=== PATIENT | male | born 1950 | race Caucasian/White ===

== ENCOUNTER 2016-06-17 03:56 | Inpatient (IN) | payer OTHER ==
--- NOTE | 2016-06-17 04:09 | PDOC ---
History of Present Illness - General History Source: Patient, Old Records Exam Limitations: No Limitations - History of Present Illness Initial Comments: 06/17/16 04:26 The patient is a 66 year old male with a significant past medical history of HTN , diabetes, COPD, and NM (01/23/16), who presents to the emergency department today for further evaluation of shortness of breath since today. The patient reports associated chills and decreased appetite. The patient denies fever, and sweats. The patient denies nausea, vomiting, and diarrhea. The patient denies chest pain and cough. PCP: Dr. Idris Salguero [phone] PAST MEDICAL HISTORY: HTN, diabetes, COPD, and NM (01/23/16) PAST SURGICAL HISTORY: No significant history reported FAMILY HISTORY: No pertinent history reported SOCIAL HISTORY: None reported MEDICATIONS: Reviewed ALLERGIES: As per nursing notes <Vick Kim - Last Filed: 06/17/16 06:10> <Jessica Evans - Last Filed: 06/17/16 07:06> - General Chief Complaint: Shortness of Breath Stated Complaint: SHORTNESS OF BREATH Time Seen by Provider: 06/17/16 04:07 Past History <Vick Kim - Last Filed: 06/17/16 06:10> - Past Medical History Diabetes: Yes Disorders: Yes HTN: Yes HIV: Yes - Psycho/Social/Smoking Cessation Hx Anxiety: No Suicidal Ideation: No Smoking History: Current every day smoker Have you smoked in the past 12 months: Yes Number of Cigarettes Smoked Daily: 20 'Breaking Loose' booklet given: 01/24/16 Hx Alcohol Use: No Drug/Substance Use Hx: No Substance Use Type: None <Jessica Evans - Last Filed: 06/17/16 07:06> - Past Medical History Allergies/Adverse Reactions: Allergies Allergy/AdvReac Type Severity Reaction Status Date / Time No Known Allergies Allergy Verified 06/17/16 04:20 Home Medications: Ambulatory Orders Albuterol Sulfate [Proair Respiclick] 90 mcg IH ASDIR PRN 01/24/16 Calcium Carbonate [Calcium] 2 tab.chew PO DAILY 01/24/16 Cholecalciferol (Vitamin D3) [Vitamin D3] 2,000 unit PO DAILY 01/24/16 Finasteride [Proscar] 5 mg PO DAILY 01/24/16 Glipizide 5 mg PO DAILY 01/24/16 Insulin Detemir [Levemir Flextouch] 20 unit SQ BID 01/24/16 Metoprolol Succinate [Toprol XL -] 50 mg PO HS 01/24/16 Tamsulosin HCl [Flomax -] 0.4 mg PO HS 01/24/16 Amlodipine Besylate [Norvasc -] 10 mg PO DAILY #30 tablet 01/26/16 Review of Systems - Review of Systems Able to Perform ROS?: Yes Comments:: 06/17/16 04:26 GENERAL/CONSTITUTIONAL: (+) Chills. No fever. No weakness. HEAD, EYES, EARS, NOSE AND THROAT: No change in vision. No ear pain or discharge. No sore throat. CARDIOVASCULAR: (+) shortness of breath. No chest pain. RESPIRATORY: No cough, wheezing, or hemoptysis. GASTROINTESTINAL: No nausea, vomiting, diarrhea or constipation. GENITOURINARY: No dysuria, frequency, or change in urination. MUSCULOSKELETAL: No joint or muscle swelling or pain. No neck or back pain. SKIN: No rash NEUROLOGIC: No headache, vertigo, loss of consciousness, or change in strength/ sensation. ENDOCRINE: No increased thirst. No abnormal weight change. HEMATOLOGIC/LYMPHATIC: No anemia, easy bleeding, or history of blood clots. ALLERGIC/IMMUNOLOGIC: No hives or skin allergy. <Vick Kim - Last Filed: 06/17/16 06:10> *Physical Exam - Vital Signs Last Vital Signs Temp Pulse Resp BP Pulse Ox 74 24 144/49 100 06/17/16 04:14 06/17/16 04:14 06/17/16 04:14 06/17/16 04:14 - Physical Exam Comments: 06/17/16 04:26 GENERAL: Awake, alert, and fully oriented, pale in appearance. HEAD: No signs of trauma EYES: PERRLA, EOMI, sclera anicteric, conjunctiva clear ENT: (+) Dry mucosa, lips, and throat. Auricles normal inspection, hearing grossly normal, nares patent, oropharynx clear without exudates. NECK: Normal ROM, supple, no lymphadenopathy, JVD, or masses LUNGS: Breath sounds equal, clear to auscultation bilaterally. No wheezes, and no crackles HEART: Regular rate and rhythm, normal S1 and S2, no murmurs, rubs or gallops ABDOMEN: Soft, nontender, normoactive bowel sounds. No guarding, no rebound. No masses EXTREMITIES: Normal range of motion, no edema. No clubbing or cyanosis. No cords, erythema, or tenderness NEUROLOGICAL: Cranial nerves II through XII grossly intact. Normal speech, normal gait SKIN: Warm, Dry, normal turgor, no rashes or lesions noted. <Vick Kim - Last Filed: 06/17/16 06:10> Heart Score/ECG Review - ECG Impressions Comment:: 06/17/16 04:27 1. ECG Impression: Normal sinus rhythm. Nonspecific intraventricular block. Abnormal ECG. Very different from ECG on 01/23/16. <Vick Kim - Last Filed: 06/17/16 06:10> ED Treatment Course - LABORATORY CBC & Chemistry Diagram: 06/17/16 04:30 06/17/16 04:30 <Vick Kim - Last Filed: 06/17/16 06:10> - LABORATORY CBC & Chemistry Diagram: 06/17/16 04:30 06/17/16 05:49 - RADIOLOGY Radiology Studies Ordered: Category Date Time Status CHEST X-RAY PORTABLE* [RAD] Stat Radiology 06/17/16 04:08 Ordered <Jessica Evans - Last Filed: 06/17/16 07:06> Medical Decision Making - Medical Decision Making 06/17/16 05:05 Pt comes with EMS for SOB and chills. He is afebrile and he has no cough. He has a hx of COPD.and CHF. His heart is elarged on CXR, but no infiltrate or effusion. Pt states that he is not eating well and he is non compliant with all of his meds. 06/17/16 05:05 Pt's EKG is widened QRS; new from 6 months ago. Unclear what the cause is. Pt is refusing BiPAP. He is pulling off mask. He is oxygenating at 100% RA 06/17/16 06:24 I have been waiting over 2 hrs for his chemistry results. Pt was given 1g calcium chloride 10% soln slow IVP, as EKG could indicate elevaed K+ Pt also given D50 and insulin 10U. Pt will be treated with lasix 40mg IVPush. 06/17/16 06:25 Pt signed out to hospitalist, who wants pt on [employer]. I paged the ICU, but there is no [employer] INVESTIGATOR or MD in the ICU. I was told to call office [phone] 06/17/16 07:[address] Tang for ICU consult. <Jessica Evans - Last Filed: 06/17/16 07:06> *DC/Admit/Observation/Transfer <Vick Kim - Last Filed: 06/17/16 06:10> - Discharge Dispostion Admit: Yes <Jessica Evans - Last Filed: 06/17/16 07:06> Diagnosis at time of Disposition: Acute electrocardiogram changes, SOB (shortness of breath), Anemia, COPD ( chronic obstructive pulmonary disease), CHF (congestive heart failure), Hyperkalemia, Renal failure - Discharge Dispostion Condition at time of disposition: Poor
[2016-06-17 04:59] LABS: MCHC 30.9 g/dl (32.0-35.9); MEAN CELL VOLUME 77.7 fl (80-96); MEAN PLT VOLUME 7.4 fl (7.5-11.1); PLATELET COUNT 317 K/MM3 (134-434); RDW 15.6 % (11.9-15.9); WHITE BLOOD COUNT 13.4 K/mm3 (4.0-10.0)
[2016-06-17] MEDS ORDERED: METOCLOPRAMIDE HCL INJECTION 10 MG/2 ML VIAL IVPB ONE (05:03)
[2016-06-17] MEDS ORDERED: FAMOTIDINE 20 MG/50 ML IVPB 50 ML IVPB ONE ×2 (05:04→05:06)
[2016-06-17] MEDS ORDERED: METOCLOPRAMIDE HCL INJECTION 10 MG/2 ML VIAL ONE (05:06)
[2016-06-17 05:12] LABS: INR 1.34 (0.82-1.09); PROTHROMBIN TIME (PATIENT) 14.8 SEC (9.98-11.88)
[2016-06-17] MEDS ORDERED: CALCIUM GLUCONATE 10% - 1,000 MG/10 ML VIAL IVPUSH ONE ×2 (06:05→14:55)
[2016-06-17] MEDS ORDERED: ALBUTEROL SO4 0.083% IH SOL 2.5 MG/3 ML VIAL.NEB. NEB ONE ×5 (06:06→06:51)
[2016-06-17] MEDS ORDERED: CALCIUM GLUCONATE 10% - 1,000 MG/10 ML VIAL ONE ×2 (06:06→19:41)
[2016-06-17] MEDS ORDERED: INSULIN REGULAR HUMAN 100 UNITS/ML *VIAL IVPUSH ONE ×2 (06:20→15:02)
[2016-06-17] MEDS ORDERED: DEXTROSE 50%-WATER 50 ML VIAL IVPUSH ONE ×2 (06:20→15:01)
[2016-06-17] MEDS ORDERED: DEXTROSE 50%-WATER 50 ML DISP.SYRIN ONE ×2 (06:21→15:20)
[2016-06-17] MEDS ORDERED: INSULIN REGULAR HUMAN 100 UNITS/ML *VIAL ONE (06:22)
[2016-06-17 06:29] LABS: ALBUMIN 2.8 g/dl (3.4-5.0); BILIRUBIN,TOTAL 0.3 mg/dL (0.2-1.0); TOT PROT 7.2 g/dl (6.4-8.2)
[2016-06-17] MEDS ORDERED: FUROSEMIDE 40 MG/4 ML INJECTABLE VIAL IVPB ONE (06:30)
[2016-06-17] MEDS ORDERED: FUROSEMIDE 40 MG/4 ML INJECTABLE VIAL ONE (06:36)
[2016-06-17] MEDS ORDERED: SODIUM POLYSTYRENE SULFONATE 15 GM/60 ML BOTTLE PO ONE (06:50)
[2016-06-17] MEDS ORDERED: SODIUM CHLORIDE 0.9% 500 ML INFUS.BAG IV ONE (06:53)
[2016-06-17 06:55] LABS: CREATININE 14.5 mg/dL (0.7-1.3)
[2016-06-17 06:56] LABS: CALCIUM 6.1 mg/dL (8.5-10.1)
[2016-06-17 06:57] LABS: TROPONIN I 0.03 ng/ml (0.00-0.05)
[2016-06-17] MEDS ORDERED: SODIUM BICARBONATE 4.2% 5 MEQ/10 ML DISP.SYRIN IVPUSH ONE (07:17)
[2016-06-17] MEDS ORDERED: SODIUM BICARBONATE 2.4 MEQ/5 ML SDVIAL ONE (07:25)
[2016-06-17] MEDS ORDERED: SODIUM BICARBONATE 8.4% - 50 ML ONE ×2 (07:27→07:45)
[2016-06-17 07:37] LABS: ARTERIAL BLD GAS O2 SATURATION 97.5 % (90-98.9); ARTERIAL BLOOD GAS HCO3 1.7 meq/L (22-26)
[2016-06-17 07:38] LABS: ALLENS TEST POSITIVE; ART PUNCT SITE RIGHT RADIAL
[2016-06-17 07:39] LABS: LPM/O2% 6L; PT. ON O2? YES; TYPE OF O2 NASAL O2
[2016-06-17 07:40] LABS: ARTERIAL BLOOD GAS pH 6.82 (7.35-7.45)
[2016-06-17 07:44] LABS: ANISOCYTOSIS 1+; HYPOCHROMIA 1+; MICROCYTOSIS 1+; PLATELET COMMENT2 NO CLOTTING DETECTED; PLATELET COMMENT3 FEW LARGE PLTS; PLATELET ESTIMATE ADEQUATE (NORMAL); POIKILOCYTOSIS 1+; POLYCHROMASIA 1+
[2016-06-17] MEDS ORDERED: SODIUM BICARBONATE 8.4% 50 MEQ/50 ML DISP.SYRIN IVPUSH ONE ×2 (07:44→07:45)
[2016-06-17 07:45] LABS: ARTERIAL BLOOD GAS BASE EXCESS -30.3 meq/l (-2-2)
[2016-06-17 07:50] LABS: METHEMOGLOBIN 1.2 % (0.4-1.5)
--- NOTE | 2016-06-17 08:44 | PDOC ---
*Physical Exam - Vital Signs Last Vital Signs Temp Pulse Resp BP Pulse Ox 92 H 30 H 175/74 99 06/17/16 06:16 06/17/16 06:16 06/17/16 07:09 06/17/16 06:16 ED Treatment Course - LABORATORY CBC & Chemistry Diagram: 06/17/16 04:30 06/17/16 05:49 - ADDITIONAL ORDERS Additional order review: Laboratory Results 06/17/16 06/17/16 06/17/16 05:49 05:49 05:49 WBC RBC Hgb Hct MCV MCHC RDW Plt Count MPV Neutrophils % Lymphocytes % Monocytes % Band Neutrophils Reactive Lymphocytes Platelet Estimate Platelet Comment Polychromasia Hypochromic-Microcytic Poikilocytosis Anisocytosis Microcytosis INR PTT (Actin FS) Sodium Potassium Chloride Carbon Dioxide Anion Gap BUN Creatinine Creat Clearance w eGFR Random Glucose Calcium Total Bilirubin AST ALT Alkaline Phosphatase Creatine Kinase 881 H D Creatine Kinase Index 2.5 CK-MB (CK-2) 22.0 H CK-MB (CK-2) Rel Index Cancelled Troponin I 0.03 D Total Protein Albumin Blood Type B POSITIVE Antibody Screen Negative 06/17/16 06/17/16 06/17/16 05:49 04:30 04:30 WBC RBC Hgb Hct MCV MCHC RDW Plt Count MPV Neutrophils % Lymphocytes % Monocytes % Band Neutrophils Reactive Lymphocytes Platelet Estimate Platelet Comment Polychromasia Hypochromic-Microcytic Poikilocytosis Anisocytosis Microcytosis INR 1.34 H PTT (Actin FS) Sodium 134 L Cancelled Potassium 7.6 H* D Cancelled Chloride 104 D Cancelled Carbon Dioxide 4 L D Cancelled Anion Gap 26 H Cancelled BUN 230 H* D Cancelled Creatinine 14.5 H* D Cancelled Creat Clearance w eGFR 3.42 Cancelled Random Glucose 235 H D Cancelled Calcium 6.1 L* Cancelled Total Bilirubin 0.3 Cancelled AST 13 L Cancelled ALT 16 Cancelled Alkaline Phosphatase 93 D Cancelled Creatine Kinase Cancelled Creatine Kinase Index CK-MB (CK-2) CK-MB (CK-2) Rel Index Troponin I Cancelled Total Protein 7.2 Cancelled Albumin 2.8 L Cancelled Blood Type Antibody Screen 06/17/16 06/17/16 04:30 04:30 WBC 13.4 H D RBC 3.34 L Hgb 8.0 L Hct 25.9 L MCV 77.7 L MCHC 30.9 L RDW 15.6 Plt Count 317 D MPV 7.4 L Neutrophils % 80.0 D Lymphocytes % 10.0 D Monocytes % 4.0 Band Neutrophils 4.0 Reactive Lymphocytes 3 Platelet Estimate Adequate Platelet Comment No clotting detected Polychromasia 1+ Hypochromic-Microcytic 1+ Poikilocytosis 1+ Anisocytosis 1+ Microcytosis 1+ INR PTT (Actin FS) 36.1 H Sodium Potassium Chloride Carbon Dioxide Anion Gap BUN Creatinine Creat Clearance w eGFR Random Glucose Calcium Total Bilirubin AST ALT Alkaline Phosphatase Creatine Kinase Creatine Kinase Index CK-MB (CK-2) CK-MB (CK-2) Rel Index Troponin I Total Protein Albumin Blood Type Antibody Screen 06/17/16 04:30 RBC 3.34 L MCV 77.7 L MCHC 30.9 L RDW 15.6 MPV 7.4 L Neutrophils % 80.0 D Lymphocytes % 10.0 D Monocytes % 4.0 - Medications Given in the ED: ED Medications Discontinued Medications Generic Name Dose Route Start Last Admin Trade Name Brianq PRN Reason Stop Dose Admin Albuterol Sulfate 1 amp 06/17/16 06:06 06/17/16 06:13 Ventolin 0.083% Nebulizer Soln - NEB 06/17/16 06:07 1 amp ONCE ONE Administration Albuterol Sulfate 1 amp 06/17/16 06:50 06/17/16 06:52 Ventolin 0.083% Nebulizer Soln - NEB 06/17/16 06:51 1 amp ONCE ONE Administration Albuterol Sulfate 1 amp 06/17/16 06:51 06/17/16 06:52 Ventolin 0.083% Nebulizer Soln - NEB 06/17/16 06:52 1 amp ONCE ONE Administration Calcium Gluconate 1,000 mg 06/17/16 06:05 06/17/16 06:12 Calcium Gluconate 10% - IVPUSH 06/17/16 06:06 1,000 mg ONCE ONE Administration Dextrose 50 ml 06/17/16 06:20 06/17/16 06:20 D50w (Vial) - IVPUSH 06/17/16 06:21 50 ml NOW ONE Administration Furosemide 40 mg 06/17/16 06:30 06/17/16 06:42 Lasix Injection - IVPB 06/17/16 06:31 40 mg ONCE ONE Administration Famotidine/Sodium Chloride 50 mls @ 100 mls/hr 06/17/16 05:04 06/17/16 05:18 Pepcid 20 Mg Premixed Ivpb - IVPB 06/17/16 05:33 100 mls/hr ONCE ONE Administration Insulin Human Regular 10 units 06/17/16 06:20 06/17/16 06:20 Novolin R Vial *Ivpush / Er / Icu Only* IVPUSH 06/17/16 06:21 10 unit ONCE ONE Administration Metoclopramide HCl 10 mg 06/17/16 05:03 06/17/16 05:07 Reglan Injection - IVPB 06/17/16 05:04 10 mg ONCE ONE Administration Sodium Chloride 1,000 ml 06/17/16 06:53 06/17/16 07:09 Normal Saline - IV 06/17/16 06:54 1,000 ml ONCE ONE Administration Progress Note - Progress Note Progress Note: This patient was endorsed to me by Dr. Rojas at 7 AM pending ICU admission. The patient is a 66-year-old male with history of chronic kidney injury who presented to the emergency department with difficulty breathing and was found to have a creatinine increased from 3.0-14.6. Of note his potassium and is 7.6. Prior to my arrival the patient was given calcium gluconate, insulin and glucose , and albuterol nebulizer treatments. I obtain an ABG which showed a pH of 6.8. The patient was given 2 ampules of bicarbonate and renal was called for emergent dialysis. The patient is pending ICU admission at this point and will get dialyzed in the ICU. Repeat labs are pending including an acetone and repeat BMP. Starks catheter has also been ordered. *DC/Admit/Observation/Transfer Diagnosis at time of Disposition: Acute electrocardiogram changes, SOB (shortness of breath), Anemia, COPD ( chronic obstructive pulmonary disease), CHF (congestive heart failure), Hyperkalemia, Renal failure - Discharge Dispostion Condition at time of disposition: Poor
[2016-06-17] MEDS ORDERED: SODIUM BICARBONATE 8.4% 50 MEQ/50 ML VIAL ONE (09:51)
[2016-06-17 10:08] VITALS: BMI 21.8
[2016-06-17] MEDS: SODIUM BICARBONATE 8.4% - 150 MEQ in DEXTROSE 5%-WATER - 1,000 ML IV SCH ×2 (10:08→14:18)
--- NOTE | 2016-06-17 10:32 | CONSULT ---
Consult - text type - Consultation Consultation Note: Renal Consult for ISA on CKD/Hyperkalemia/Metabolic Acidosis This is a 66 year old Gentleman with PMhx of CKD (Cr was 3 in January), Hypertension, CAD, IDDM, BPH who presented to the ED with complaints of SOB and found to have BUN/Cr of 230/14.5, K of 7.6 and Bicarb of 4. Pt denies any history of CKD depsite having elvated cr on or record. Pt denies any chest pain , Abd pain, N/V/D. + Fatigue. Denies any change in urine output. PT was noted to have urinary retention on prior admission. No flank pain, chest pain, JACKSON, confusion. Denies metallic taste in the mouth. Joyner placed in the ED with ~ 200j cc output. Pt is agreeable to emergent dialysis. PMhx: as above Allergies: NKDA Family Hx: NC Social Hx: Current Smoker ROS: As per HPI, all other ROS negative Home Meds: Home Medications Medication Instructions Recorded Albuterol Sulfate [Proair 90 mcg IH ASDIR PRN 01/24/16 Respiclick] Calcium Carbonate [Calcium] 2 tab.chew PO DAILY 01/24/16 Cholecalciferol (Vitamin D3) 2,000 unit PO DAILY 01/24/16 [Vitamin D3] Finasteride [Proscar] 5 mg PO DAILY 01/24/16 Glipizide 5 mg PO DAILY 01/24/16 Insulin Detemir [Levemir Flextouch] 20 unit SQ BID 01/24/16 Metoprolol Succinate [Toprol XL -] 50 mg PO HS 01/24/16 Tamsulosin HCl [Flomax -] 0.4 mg PO HS 01/24/16 Amlodipine Besylate [Norvasc -] 10 mg PO DAILY #30 tablet 01/26/16 Vital Signs Temperature Pulse Rate 90 06/17/16 07:05 Respiratory Rate 24 06/17/16 07:05 Blood Pressure 175/74 06/17/16 07:09 O2 Sat by Pulse Oximetry (%) 99 06/17/16 06:16 Intake & Output 06/14/16 06/15/16 06/16/16 06/17/16 23:59 23:59 23:59 23:59 Weight 214 lb Gen: NAD, awake and alert HEENT: NC/AT, MMM, No JVD, Neck Supple CVS: RRR, No M/R Lungs: CTA no rales Abd: soft NT/ND Ext: No edema, clubbing or cyanosis : no bladder distension, joyner in place with yellow urine Neuro: Awake and alert. CBC, BMP 06/17/16 04:30 06/17/16 05:49 A/P 66 year old Gentleman with PMhx of CKD (Cr was 3 in January), Hypertension, CAD , IDDM, BPH who presented to the ED with complaints of SOB and found to have BUN /Cr of 230/14.5, K of 7.6 and Bicarb of 4. #Acute Renal Failure in setting of CKD Etiology of ISA unclear at this time Given history of BPH/Retention will need to r/o obstruction at this time Check Renal and Bladder US at the bedside Check Urine for FeNa, UPCR, UA Continue joyner for management of retention and strict I and O Emergent dialysis today with low potassium bath Will trend Renal function, likely will require additional dialysis tomorrow Dose all meds for Cr Cl less then 10 #Hyperkalemia secondary to renal insufficiency Emergent HD with Low potassium bath Renal Diet Avoid ELIOT/ARBs at this time #Metabolic acidosis with Resp Compensation + Anion gap likely secondary to renal failure Continue biacrb gtt and ph less then 6.8 repeat abg after HD and reaccess need for bicarb gtt #Anemia Check iron studies no acute indication for transfusion #Leukocytosis/Hypothermia Check Blood and urine cultures Abx as per ICU Thank you Will follow Dominick Vanegas DO
--- NOTE | 2016-06-17 11:15 | EKG ---
Test Reason : Blood Pressure : / mmHG Vent. Rate : 076 BPM Atrial Rate : 076 BPM P-R Int : 200 ms QRS Dur : 152 ms QT Int : 488 ms P-R-T Axes : 080 077 095 degrees QTc Int : 549 ms NORMAL SINUS RHYTHM NON-SPECIFIC INTRA-VENTRICULAR CONDUCTION BLOCK ABNORMAL ECG WHEN COMPARED WITH ECG OF 26-JAN-2016 14:35, QUESTIONABLE CHANGE IN QRS DURATION Confirmed by RUTH MANUEL MD ([id number]) on 06/17/2016 11:15:35 AM Referred By: Confirmed By:RUTH MANUEL MD
[2016-06-17 11:54] LABS: URINE APPEARANCE TURBID; URINE BILIRUBIN NEGATIVE (NEGATIVE); URINE COLOR YELLOW; URINE GLUCOSE (UA) 2+ (NEGATIVE); URINE KETONE NEGATIVE (NEGATIVE); URINE NITRITE NEGATIVE (NEGATIVE); URINE UROBILINOGEN NEGATIVE E.U./dl (0.2-1.0)
[2016-06-17 11:55] LABS: URINE BLOOD 2+ (NEGATIVE); URINE LEUK ESTERASE 3+ (NEGATIVE); URINE PROTEIN 3+ (NEGATIVE)
[2016-06-17 12:02] LABS: URINE RBC 7 /hpf (0-3); URINE WBC 2048 /hpf (3-5)
[2016-06-17 12:04] LABS: CREATININE 12.8 mg/dL (0.7-1.3)
[2016-06-17 12:05] LABS: CALCIUM 6.1 mg/dL (8.5-10.1)
--- NOTE | 2016-06-17 12:20 | PN ---
Progress Note, Physician - Current Medication List Current Medications: Active Medications Heparin Sodium (Porcine) (Heparin -) 5,000 unit SQ BID [facility] Sodium Bicarbonate 150 meq/ (Dextrose) 1,150 mls @ 200 mls/hr IV Q5H [facility] Last Admin: 06/17/16 10:08 Dose: 200 mls/hr - Objective Vital Signs: Vital Signs Temperature 93.0 F L 06/17/16 10:20 Pulse Rate 104 H 06/17/16 11:55 Respiratory Rate 181 H 06/17/16 11:55 Blood Pressure 148/80 06/17/16 11:55 O2 Sat by Pulse Oximetry (%) 100 06/17/16 11:20 Constitutional: Yes: Well Nourished, No Distress, Calm Eyes: Yes: WNL, Conjunctiva Clear HENT: Yes: WNL, Atraumatic, Normocephalic Neck: Yes: WNL, Supple, Trachea Midline Cardiovascular: Yes: WNL, Regular Rate and Rhythm Respiratory: Yes: Regular, Diminished, Rales Gastrointestinal: Yes: WNL, Normal Bowel Sounds Musculoskeletal: Yes: WNL Extremities: Yes: WNL, Other (Shlyi in place) Edema: No Integumentary: Yes: WNL Neurological: Yes: WNL, Alert, Oriented ...Motor Strength: WNL Psychiatric: Yes: WNL Labs: CBC, BMP 06/17/16 10:30 INR, PTT INR 1.34 (0.82-1.09) H 06/17/16 04:30
[2016-06-17 12:22] LABS: URINE CREATININE 62.7 mg/dL
--- NOTE | 2016-06-17 12:46 | PN ---
Teaching Attending Note Name of Resident: Jesse Cerna ATTENDING PHYSICIAN STATEMENT I saw and evaluated the patient. I reviewed the resident's note and discussed the case with the resident. I agree with the resident's findings and plan as documented. SUBJECTIVE: seen and evaluated at the bedside OBJECTIVE: currently having Shlyi placed by vascular attending ASSESSMENT AND PLAN: 66 year old Gentleman with PMhx of CKD (Cr was 3 in January), Hypertension, CAD , IDDM, BPH admitted for acute on chronic renal failure Renal Failure -currently having Shlyi placed by vascular attending -for emergent dialysis arranged by renal attending today Sepsis -wilmar source is urinary tract infection with elevated WBC and hypothermia and tachycardia -start vanc zosyn -follow up ID consult for abx approval -follow up cultures
[2016-06-17] MEDS ORDERED: ACETAMINOPHEN 325 MG TABLET (FP) PO PRN (13:20)
[2016-06-17] MEDS ORDERED: PIPERACILLIN/TAZOB 3.375 GM/50 ML PRE-DOCKED IVPB STA ×2 (13:22→14:35)
[2016-06-17] MEDS ORDERED: PIPERACILLIN/TAZOB 3.375 GM/50 ML PRE-DOCKED IVPB ONE (13:22)
--- NOTE | 2016-06-17 13:32 | HP ---
CHIEF COMPLAINT: Lethargy PCP:Dr. Idris Salguero [phone] HISTORY OF PRESENT ILLNESS: 65 yo male with PMHx of HTN, COPD, and CO (01/23/16), hx of chronic UTIs, CKD stage 5 not on HD (Cr was 3 in January), recurrent UTI 2/2 chronic obstructive uropathy BPH, brought in by EMS, do to generalized weakness, lightheadedness and shortness breath on exertion for the past couple of days. The patient reports associated chills and decreased appetite. Patient denies No flank pain, JACKSON, confusion, chest pain, palpitations, LOC, JACKSON, n/v, fever, cough, chills. He also denies changed in bowel or bladder habits. Denies any change in urine output. Pt states that he is not eating well and he is non compliant with all of his meds. ER course was notable for: (1)ABG shows severe metabolic acidosis with respiratory compensation.Pt treated with lasix 40mg IVPush. (2)Pt's EKG is widened QRS; prologed QTc (3)given 1g calcium chloride 10% soln slow IVP, as EKG could indicate elevaed K+ given calcium gluconate, insulin and glucose, and albuterol nebulizer treatments. (4)creatinine increased to 4.6. prior (addmittsion 3.0), potassium and is 7.6. (5)ABG which showed a pH of 6.8. given 2 ampules of bicarbonate and renal was called for emergent dialysis. Recent Travel: no PAST MEDICAL HISTORY: as per HPI PAST SURGICAL HISTORY: Social History: Smoking:cormer smoker , 3 months ago Alcohol:no Drugs: no Family History: Allergies No Known Allergies Allergy (Verified 06/17/16 04:20) HOME MEDICATIONS: Home Medications Medication Instructions Recorded Albuterol Sulfate [Proair 90 mcg IH ASDIR PRN 01/24/16 Respiclick] Calcium Carbonate [Calcium] 2 tab.chew PO DAILY 01/24/16 Cholecalciferol (Vitamin D3) 2,000 unit PO DAILY 01/24/16 [Vitamin D3] Finasteride [Proscar] 5 mg PO DAILY 01/24/16 Glipizide 5 mg PO DAILY 01/24/16 Insulin Detemir [Levemir Flextouch] 20 unit SQ BID 01/24/16 Metoprolol Succinate [Toprol XL -] 50 mg PO HS 01/24/16 Tamsulosin HCl [Flomax -] 0.4 mg PO HS 01/24/16 Amlodipine Besylate [Norvasc -] 10 mg PO DAILY #30 tablet 01/26/16 REVIEW OF SYSTEMS CONSTITUTIONAL: generalized weakness, malaise, loss of appetite, Absent: fever, chills, diaphoresis, weight change HEENT: Absent: rhinorrhea, nasal congestion, throat pain, throat swelling, difficulty swallowing, mouth swelling, ear pain, eye pain, visual changes CARDIOVASCULAR: palpitations, lightheadedness, Absent: chest pain, syncope, irregular heart rate, peripheral edema RESPIRATORY: shortness of breath, dyspnea with exertion, Absent: cough, orthopnea, wheezing, stridor, hemoptysis GASTROINTESTINAL: Absent: abdominal pain, abdominal distension, nausea, vomiting, diarrhea, constipation, melena, hematochezia GENITOURINARY: Absent: dysuria, frequency, urgency, hesitancy, hematuria, flank pain, genital pain MUSCULOSKELETAL: Absent: myalgia, arthralgia, joint swelling, back pain, neck pain SKIN: Absent: rash, itching, pallor HEMATOLOGIC/IMMUNOLOGIC: Absent: easy bleeding, easy bruising, lymphadenopathy, frequent infections ENDOCRINE: Absent: unexplained weight gain, unexplained weight loss, heat intolerance, cold intolerance NEUROLOGIC: Absent: headache, focal weakness or paresthesias, dizziness, unsteady gait, seizure, mental status changes, bladder or bowel incontinence PSYCHIATRIC: Absent: anxiety, depression, suicidal or homicidal ideation, hallucinations. PHYSICAL EXAMINATION Vital Signs - 24 hr 06/17/16 06/17/16 06/17/16 07:09 09:00 10:00 Temperature 93.0 F L Pulse Rate 90 90 Respiratory 26 H 24 Rate Blood Pressure 175/74 138/48 130/64 O2 Sat by Pulse 100 Oximetry (%) 06/17/16 06/17/16 06/17/16 10:20 10:25 10:55 Temperature 93.0 F L Pulse Rate 90 90 91 H Respiratory 18 18 18 Rate Blood Pressure 133/68 151/66 152/82 O2 Sat by Pulse Oximetry (%) 06/17/16 06/17/16 06/17/16 11:00 11:20 11:25 Temperature 94 F L Pulse Rate 89 84 100 H Respiratory 26 H 18 Rate Blood Pressure 140/81 138/85 O2 Sat by Pulse 98 100 Oximetry (%) 06/17/16 06/17/16 06/17/16 11:55 12:00 12:25 Temperature Pulse Rate 104 H 103 H 104 H Respiratory 18 26 H 18 Rate Blood Pressure 148/80 128/81 142/92 O2 Sat by Pulse Oximetry (%) 06/17/16 06/17/16 06/17/16 12:37 12:55 13:05 Temperature 96 F L Pulse Rate 112 H Respiratory 18 Rate Blood Pressure 142/73 O2 Sat by Pulse 98 Oximetry (%) 06/17/16 06/17/16 13:25 13:31 Temperature Pulse Rate 102 H 103 H Respiratory 18 18 Rate Blood Pressure 141/71 144/72 O2 Sat by Pulse Oximetry (%) GENERAL: Awake, alert, and fully oriented, in no acute distress. HEAD: Normal with no signs of trauma. EYES: Pupils equal, round and reactive to light, extraocular movements intact, sclera anicteric, conjunctiva clear. No lid lag. EARS, NOSE, THROAT: Ears normal, nares patent, oropharynx clear without exudates. Moist mucous membranes. NECK: Normal range of motion, supple without lymphadenopathy, JVD, or masses. LUNGS: Breath sounds equal, clear to auscultation bilaterally. No wheezes, and no crackles. No accessory muscle use. HEART: Regular rate and rhythm, normal S1 and S2 without murmur, rub or gallop. ABDOMEN: Soft, nontender, not distended, normoactive bowel sounds, no guarding, no rebound, no masses. No hepatomegaly or splenomegaly. MUSCULOSKELETAL: Normal range of motion at all joints. No bony deformities or tenderness. No CVA tenderness. OWER EXTREMITIES: 2+ pulses, warm, well-perfused. No calf tenderness. No peripheral edema. NEUROLOGICAL: Cranial nerves II-XII intact. Normal speech. Normal gait. PSYCHIATRIC: Cooperative. Good eye contact. Appropriate mood and affect. SKIN: Warm, dry, normal turgor, no rashes or lesions noted. Laboratory Results - last 24 hr 06/17/16 06/17/16 06/17/16 07:17 07:18 08:10 Puncture Site Right radial ABG pH 6.82 L* ABG pCO2 at Pt Temp 11.3 L* D ABG pO2 at Pt Temp 190.0 H* ABG HCO3 1.7 L* ABG O2 Sat (Measured) 97.5 ABG O2 Content 11.0 L ABG Base Excess -30.3 L* Jelani Test Positive Carboxyhemoglobin 0.6 Methemoglobin 1.2 O2 Delivery Device Nasal o2 Oxygen Flow Rate 6l Sodium Potassium Chloride Carbon Dioxide Anion Gap BUN Creatinine Random Glucose Calcium Urine Color Urine Appearance Urine pH Ur Specific [place] Urine Protein Urine Glucose (UA) Urine Ketones Urine Blood Urine Nitrite Urine Bilirubin Urine Urobilinogen Ur Leukocyte Esterase Urine RBC Urine WBC U Random Total Protein Ur Random Urea Nitrogn Urine Creatinine Acetone, Qual Positive small 1+ Hepatitis C Antibody 06/17/16 06/17/16 06/17/16 10:30 10:30 11:00 Puncture Site ABG pH ABG pCO2 at Pt Temp ABG pO2 at Pt Temp ABG HCO3 ABG O2 Sat (Measured) ABG O2 Content ABG Base Excess Jelani Test Carboxyhemoglobin Methemoglobin O2 Delivery Device Oxygen Flow Rate Sodium 137 Potassium 6.8 H* Chloride 103 Carbon Dioxide 9 L D Anion Gap 25 H BUN 202 H* Creatinine 12.8 H* Random Glucose 266 H Calcium 6.1 L* Urine Color Yellow Urine Appearance Turbid Urine pH 5.0 Ur Specific [place] 1.012 Urine Protein 3+ H Urine Glucose (UA) 2+ H Urine Ketones Negative Urine Blood 2+ H Urine Nitrite Negative Urine Bilirubin Negative Urine Urobilinogen Negative Ur Leukocyte Esterase 3+ H Urine RBC 7 Urine WBC 2048 U Random Total Protein Ur Random Urea Nitrogn Urine Creatinine Acetone, Qual Hepatitis C Antibody Cancelled 06/17/16 11:00 Puncture Site ABG pH ABG pCO2 at Pt Temp ABG pO2 at Pt Temp ABG HCO3 ABG O2 Sat (Measured) ABG O2 Content ABG Base Excess Jelani Test Carboxyhemoglobin Methemoglobin O2 Delivery Device Oxygen Flow Rate Sodium Potassium Chloride Carbon Dioxide Anion Gap BUN Creatinine Random Glucose Calcium Urine Color Urine Appearance Urine pH Ur Specific [place] Urine Protein Urine Glucose (UA) Urine Ketones Urine Blood Urine Nitrite Urine Bilirubin Urine Urobilinogen Ur Leukocyte Esterase Urine RBC Urine WBC U Random Total Protein 512 H Ur Random Urea Nitrogn 435 Urine Creatinine 62.7 Acetone, Qual Hepatitis C Antibody ASSESSMENT/PLAN: This is a 66 year old Gentleman with PMhx of CKD (Cr was 3 in January), Hypertension, CAD, IDDM, BPH who presented to the ED with complaints of worsening SOB an lethargy and found to have BUN/Cr of 230/14.5, K of 7.6 and Bicarb of 4. Pt denies any history of CKD despite having elevated cr on or record. s/p shiley catheter placement and now receiving emergent HD for profound acidosis, electrolyte correction and respiratory distress. Sever Sepsis secondary to possible UTI or possibly from lung ideology: leukocytosis, tachepnic, tachycardic, hypothermic, acidosis -UA positive 2047 WBC -blood culture, urine culture pending -IVF NS -empiric Vanco & zosyn adjusted for renal failure -renal/bladder ultrasound -blood culture, urine culture -ID consult appreciated. Acute on Chronic Renal failure:(Stage 5) Cr Cl less then 10 s/p shiley catheter placement and now receiving emergent HD for profound acidosis, electrolyte correction and respiratory distress. Etiology of ISA unclear at this time- FeUrea = 44.5 suggests intrinsic. renal disease. iI light of history and clinical presentation need to r/o obstruction. Renal and Bladder US to r/o obstruction, urology consulted Cont joyner, strict I and O Dose all meds for Cr Cl less then 10 f/u urine lytes, creatinine Will trend Renal function, likely will require additional dialysis tomorrow Nephrology consult appreciated. Hyperventilation 2/2 metabolic acidosis: PH 6.8-->7.5 post HD and Bicarb GTT. from possible lactic acidosis and RTA -On Ventimask 15L -BiPAP to assist in work of breathing -Maintain O2 Sat> 88% - D/C bicarb GTT Hyperkalemia- HD with low potassium bath per nephrology. monitor electrolyte awaiting repeat BMP BPH-Incomplete bladder emtying with BPH joyner catheter Urology consult monitor urine output. will consider restating flomax/proscar/bethenacol. EXOPHYTIC RIGHT KIDNEY LESION: incidental renal mass on last admission. - urology on case Hyperkalemia secondary to renal insufficiency s/p emergent HD with low Potassium bath. Renal Diet Avoid ELIOT/ARBs at this time follow BMP Metabolic acidosis with Resp Compensation: Inc anion gap 2/2 CKD. ph 6.8 d/c biacrb gtt as now ph 7.5 repeat abg after HD and reaccess need for bicarb gtt. Anemia: Microcytic anemia, chronic in the setting of CKD, Near baseline -will consider Iron studies ; including ferritin, TIBC, reticulocyte count , folate, B12: -f/u H/H -Cont monitor, transfuse if HGB < 7. no need at this time Thoracic aortic aneurysm -4.9cm on echo with reported trileaflet aortic valve from last admission . -cont toprol -needs close outpatient follow up -would require sizing of aorta on his CT chest Diabetes Mellitus type II- poorly controlled -HA1C -Glucose checks HCHS -insulin SS ACHS COPD- bronchio dilators Bipap PRN supplemental O2 LUNG NODULES ON CT CHEST: monitor 3 to 6 months compare to prior study Prophylaxis - DVT: Heparin 5000 units SQ - GI: Not indicated dispo: continue ICU monitoring - monitor lytes Visit type - Emergency Visit Emergency Visit: Yes ED Registration Date: 06/17/16 Care time: The patient presented to the Emergency Department on the above date and was hospitalized for further evaluation of their emergent condition. - New Patient This patient is new to me today: Yes Date on this admission: 06/17/16 - Critical Care Critical Care patient: Yes Total Critical Care Time (in minutes): 45 Critical Care Statement: The care of this patient involved high complexity decision making to prevent further life threatening deterioration of the patient 's condition and/or to evalute & treat vital organ system(s) failure or risk of failure.
--- NOTE | 2016-06-17 13:48 | CONSULT ---
Consultation: REQUESTING PROVIDER: Dr. Hinds CONSULT REQUEST: We have been asked to medically evaluate this patient for ICU care. HISTORY OF PRESENT ILLNESS: 65 yo M w/ h/o HTN, poorly controlled NIDDM, CKD stage 5 not on HD, recurrent UTI 2/2 chronic obstructive uropathy admitted to the floor for ISA on CKD and hyperkalemia with no EKG change. In the ED, his ABG shows severe metabolic acidosis with respiratory compensation. He also c/o chronic urinary retention as well as feeling cloudy due to fast breathing. Decision was made to admit the patient to the ICU for further management. Patient denies fever, chills, n/v, active chest pain, headache, dizziness, weakness, abd pain, bowel sx. REVIEW OF SYSTEMS: CONSTITUTIONAL: Absent: fever, chills, diaphoresis, generalized weakness, malaise, loss of appetite, weight change HEENT: Absent: rhinorrhea, nasal congestion, throat pain, throat swelling, difficulty swallowing, mouth swelling, ear pain, eye pain, visual changes CARDIOVASCULAR: Absent: chest pain, syncope, palpitations, irregular heart rate, lightheadedness , peripheral edema RESPIRATORY: shortness of breath Absent: cough dyspnea with exertion, orthopnea, wheezing, stridor, hemoptysis GASTROINTESTINAL: Absent: abdominal pain, abdominal distension, nausea, vomiting, diarrhea, constipation, melena, hematochezia GENITOURINARY: hesitancy Absent: dysuria, frequency, urgency, hematuria, flank pain, genital pain MUSCULOSKELETAL: Absent: myalgia, arthralgia, joint swelling, back pain, neck pain SKIN: Absent: rash, itching, pallor HEMATOLOGIC/IMMUNOLOGIC: Absent: easy bleeding, easy bruising, lymphadenopathy, frequent infections ENDOCRINE: Absent: unexplained weight gain, unexplained weight loss, heat intolerance, cold intolerance NEUROLOGIC: Absent: headache, focal weakness or paresthesias, dizziness, unsteady gait, seizure, mental status changes, bladder or bowel incontinence PSYCHIATRIC: Absent: anxiety, depression, suicidal or homicidal ideation, hallucinations. PHYSICAL EXAMINATION Last Vital Signs Temp Pulse Resp BP Pulse Ox 96 F L 103 H 18 144/72 98 06/17/16 13:05 06/17/16 13:31 06/17/16 13:31 06/17/16 13:31 06/17/16 12:37 GENERAL: Awake, alert, and fully oriented, slightly lethargic, in acute respiratory distress. EYES: Pupils equal, round and reactive to light, sclera anicteric, conjunctiva clear. EARS, NOSE, THROAT: BiPAP in place LUNGS: Bilateral wheezing anteriorly HEART: Rapid rate and regular rhythm, normal S1 and S2 without murmur, rub or gallop. ABDOMEN: Soft, obese, nontender, not distended, normoactive bowel sounds, no guarding, no rebound, no masses LOWER EXTREMITIES: warm, No calf tenderness. No peripheral edema : joyner in place with 250cc urine output SKIN: dark brown indurated lesion, ?ulcer with brownish drainage, foul smelling ABG Results ABG pH 6.82 (7.35-7.45) L* 06/17/16 07:17 ABG pCO2 at Pt Temp 11.3 mmHg (35-45) L* D 06/17/16 07:17 ABG pO2 at Pt Temp 190.0 mmHg (80-100) H* 06/17/16 07:17 ABG HCO3 1.7 meq/L (22-26) L* 06/17/16 07:17 ABG O2 Sat (Measured) 97.5 % (90-98.9) 06/17/16 07:17 ABG O2 Content 11.0 % vol (15-22) L 06/17/16 07:17 ABG Base Excess -30.3 meq/l (-2-2) L* 06/17/16 07:17 CBCD WBC 13.4 K/mm3 (4.0-10.0) H D 06/17/16 04:30 RBC 3.34 M/mm3 (4.00-5.60) L 06/17/16 04:30 Hgb 8.0 GM/dL (11.7-16.9) L 06/17/16 04:30 Hct 25.9 % (35.4-49) L 06/17/16 04:30 MCV 77.7 fl (80-96) L 06/17/16 04:30 MCHC 30.9 g/dl (32.0-35.9) L 06/17/16 04:30 RDW 15.6 % (11.9-15.9) 06/17/16 04:30 Plt Count 317 K/MM3 (134-434) D 06/17/16 04:30 MPV 7.4 fl (7.5-11.1) L 06/17/16 04:30 CMP Sodium 137 mmol/L (136-145) 06/17/16 10:30 Potassium 6.8 mmol/L (3.5-5.1) H* 06/17/16 10:30 Chloride 103 mmol/L (98-107) 06/17/16 10:30 Carbon Dioxide 9 mmol/L (21-32) L D 06/17/16 10:30 Anion Gap 25 (8-16) H 06/17/16 10:30 BUN 202 mg/dL (7-18) H* 06/17/16 10:30 Creatinine 12.8 mg/dL (0.7-1.3) H* 06/17/16 10:30 Creat Clearance w eGFR 3.42 (>60) 06/17/16 05:49 Calcium 6.1 mg/dL (8.5-10.1) L* 06/17/16 10:30 Total Bilirubin 0.3 mg/dL (0.2-1.0) 06/17/16 05:49 AST 13 U/L (15-37) L 06/17/16 05:49 ALT 16 U/L (12-78) 06/17/16 05:49 Alkaline Phosphatase 93 U/L (45-117) D 06/17/16 05:49 Total Protein 7.2 g/dl (6.4-8.2) 06/17/16 05:49 Albumin 2.8 g/dl (3.4-5.0) L 06/17/16 05:49 Intake & Output 06/14/16 06/15/16 06/16/16 06/17/16 23:59 23:59 23:59 23:59 Output Total 500 Balance -500 Weight 97.069 kg Active Medications Generic Name Dose Route Start Last Admin Trade Name Freq PRN Reason Stop Dose Admin Acetaminophen 650 mg 06/17/16 13:20 Tylenol - PO Q4H PRN FEVER OR PAIN Chlorhexidine Gluconate 1 applic 06/17/16 22:00 Hibiclens For Decolonization - TP HS AKOSUA Heparin Sodium (Porcine) 5,000 unit 06/17/16 22:00 Heparin - SQ BID AKOSUA Sodium Bicarbonate 150 meq/ 1,150 mls @ 200 mls/hr 06/17/16 09:45 06/17/16 10: 08 Dextrose IV 200 mls/hr Q5H AKOSUA Administration Vancomycin HCl 1,500 mg/ 500 mls @ 250 mls/hr 06/17/16 13:16 Dextrose IVPB 06/17/16 15:15 ONCE ONE Protocol Insulin Aspart 0 vial 06/17/16 16:30 Novolog Vial Sliding Scale - SQ ACHS AKOSUA Protocol Mupirocin 1 applic 06/17/16 22:00 Bactroban Ointment (For Decolonization) - NS 06/22/16 21:59 BID AKOSUA Piperacillin Sod/Tazobactam Sod 3.375 gm 06/17/16 13:22 Zosyn 3.375gm Ivpb (Pre-Docked) IVPB 06/17/16 13:23 Q8H-IV STA Protocol Imaging CXR on 06/17: No acute change EKG: no acute pathology NSR ASSESSMENT/PLAN: 65 yo M w/ h/o HTN, poorly controlled NIDDM, CKD stage 5 not on HD, recurrent UTI 2/2 chronic obstructive uropathy admitted to the ICU for ISA on CKD with acute respiratory distress. Renal: ISA on CKD (Stage 5) in the setting of diabetic nephropathy and chronic obstructive uropathy 2/2 BPH - s/p shiley catheter placement and urgent dialysis - Sever metabolic acidosis from possible lactic acidosis and RTA - FeUrea = 44.5 suggests intrinsic renal disease - f/u Renal U/S - Cont. joyner, monitor I/O - Dialysis PRN - Dose all meds renally Respiratory: Hyperventilation 2/2 metabolic acidosis - On Ventimask 15L * BiPAP PRN * Maintain O2 Sat> 88% - Improving on ABG - D/C bicarb ID: Sepsis 2/2 UTI - h/o recurrent UTI with negative urine cultures (at [facility]) * recently discharged on augmentin - (+) UA with 2048 WBC - R sacral ?ulcer - Recieved 1 dose of zosyn - Pending ID consult Heme: Microcytic anemia, chronic in the setting of CKD - 2/2 CKD - Near baseline - Cont. monitor, transfuse if HGB < 7 Endo: Poorly controlled DM2 - on sliding scale - BGM - f/u A1C FEN - NS 75ml/hr - Low Ca2+, replete with Ca gluconate 1amp; Hyperkalemia, D50+10 R-insulin, no ARB/ELIOT/Spirino - NPO for now Prophylaxis - DVT: Heparin 5000 units SQ - GI: Not indicated Disposition - cont. to monitor in ICU Code status - Full code Visit type - Emergency Visit Emergency Visit: No - New Patient This patient is new to me today: Yes Date on this admission: 06/17/16 - Critical Care Critical Care patient: Yes Total Critical Care Time (in minutes): 35 Critical Care Statement: The care of this patient involved high complexity decision making to prevent further life threatening deterioration of the patient 's condition and/or to evalute & treat vital organ system(s) failure or risk of failure.
[2016-06-17] MEDS ORDERED: LORAZEPAM CARPU-JECT 2 MG/ML DISP.SYRIN ONE (13:53)
[2016-06-17] MEDS ORDERED: LORAZEPAM CARPU-JECT 2 MG/ML DISP.SYRIN IVPUSH PRN (13:55)
[2016-06-17 14:04] LABS: ARTERIAL BLD GAS O2 SATURATION 99.5 % (90-98.9); ARTERIAL BLOOD GAS BASE EXCESS -12.5 meq/l (-2-2)
[2016-06-17 14:05] LABS: ALLENS TEST POSITIVE; ART PUNCT SITE RIGHT RADIAL; ARTERIAL BLOOD GAS HCO3 9.8 meq/L (22-26); LPM/O2% 50%; PT. ON O2? YES; TYPE OF O2 VENTIMASK
--- NOTE | 2016-06-17 14:18 | PN ---
Teaching Attending Note Name of Resident: Emerson Ng ATTENDING PHYSICIAN STATEMENT I saw and evaluated the patient. I reviewed the resident's note and discussed the case with the resident. I agree with the resident's findings and plan as documented. SUBJECTIVE: Pt seen and examined in the ICU. Briefly, 66yo male with h/o HTN, DM, CAD, BPH, CKD with baseline Cr 3.0 who presented with worsening shortness of breath found to have profound acidosis and hyperkalemia. Now s/p shiley catheter placement and now receiving emergent HD for profound acidosis, electrolyte correction and respiratory distress. OBJECTIVE: Last Vital Signs Temp Pulse Resp BP Pulse Ox 96 F L 103 H 18 144/72 98 06/17/16 13:05 06/17/16 13:31 06/17/16 13:31 06/17/16 13:31 06/17/16 12:37 Intake & Output 06/14/16 06/15/16 06/16/16 06/17/16 23:59 23:59 23:59 23:59 Output Total 500 Balance -500 Weight 214 lb Gen: tachypneic at rest HEENT: dry mucous membranes Heart: tachycardic, regular Lung: scattered wheezes Abd: soft, nontender Ext: no edema CBC, BMP 06/17/16 04:30 06/17/16 10:30 Active Medications Acetaminophen (Tylenol -) 650 mg PO Q4H PRN PRN Reason: FEVER OR PAIN Chlorhexidine Gluconate (Hibiclens For Decolonization -) 1 applic TP HS AKOSUA Heparin Sodium (Porcine) (Heparin -) 5,000 unit SQ BID AKOSUA Sodium Bicarbonate 150 meq/ (Dextrose) 1,150 mls @ 200 mls/hr IV Q5H AKOSUA Last Admin: 06/17/16 10:08 Dose: 200 mls/hr Vancomycin HCl 1,500 mg/ (Dextrose) 500 mls @ 250 mls/hr IVPB ONCE ONE PRN Reason: Protocol Stop: 06/17/16 15:15 Insulin Aspart (Novolog Vial Sliding Scale -) 0 vial SQ ACHS AKOSUA PRN Reason: Protocol Last Admin: 06/17/16 14:02 Dose: 4 units Lorazepam (Ativan Injection -) 1 mg IVPUSH TID PRN PRN Reason: ANXIETY Stop: 06/18/16 13:54 Last Admin: 06/17/16 14:01 Dose: 1 mg Mupirocin (Bactroban Ointment (For Decolonization) -) 1 applic NS BID AKOSUA Stop: 06/22/16 21:59 Piperacillin Sod/Tazobactam Sod (Zosyn 3.375gm Ivpb (Pre-Docked)) 3.375 gm IVPB Q8H-IV STA PRN Reason: Protocol Stop: 06/17/16 13:23 Last Admin: 06/17/16 14:01 Dose: 3.375 gm ASSESSMENT AND PLAN: Acute on Chronic Renal Failure requiring emergent HD Hyperkalemia Profound Metabolic Acidosis Acute Respiratory Distress requiring NIPPV HTN DM BPH - HD per renal - monitor urine output, creatinine - bicarb gtt - monitor lytes - monitor ABG - send urine lytes, creatinine - renal/bladder ultrasound - empiric antibiotics - f/u cultures - BiPAP to assist in work of breathing - DVT/GI prophylaxis - continue ICU monitoring
[2016-06-17] MEDS ORDERED: VANCOMYCIN 1,500 MG in DEXTROSE 5%-WATER - 500 ML IVPB ONE (14:45)
[2016-06-17] MEDS ORDERED: SODIUM CHLORIDE 1,000 ML IV SCH (15:00)
--- NOTE | 2016-06-17 15:52 | PN ---
Progress Note (short form) - Note Progress Note: ID Consult dictated Acute on chronic renal failure UTI/ Sepsis secondary to UTI Acidosis Toxic-metabolic encephalopathy Hypothermia secondary to sepsis Pending cultures, empiric vanco/ zosyn, adjusted for renal failure Critical care time 40min
[2016-06-17] MEDS ORDERED: INSULIN SLIDING SCALE (NOVOLOG) 1 VIAL SQ SCH (16:30)
[2016-06-17 16:36] LABS: CALCIUM 6.5 mg/dL (8.5-10.1)
--- NOTE | 2016-06-17 16:50 | CONS ---
DATE OF CONSULTATION: DATE OF DICTATION: 06/17/2016 INFECTIOUS DISEASE CONSULTATION HISTORY OF PRESENT ILLNESS: The patient is a 66-year-old male with a history of chronic kidney disease and coronary artery disease evaluated for sepsis. History was obtained from the chart, as patient cannot give a history secondary to his mental state. He was taken by ambulance to the emergency room with complaints of shortness of breath. The patient was found to be in [id number] renal failure with hyperkalemia. The patient was treated for her hyperkalemia, and required emergent hemodialysis. His course was complicated by hypothermia, tachycardia, and elevated white blood cell count. Cultures were obtained, and he was empirically treated with Zosyn and vancomycin. He is awake, however he is not conversant. He has just been sedated with Ativan for agitation; prior to that, the nurse states that he was alert and oriented without focal complaint. He is lethargic at that time and is slightly tachypneic. No reports of recent febrile illness, shaking chills, respiratory tract infection, urinary tract infection, or infected skin wounds. Of note, the patient was hospitalized in January of 2016 for acute OR. At that time, he had a serum creatinine of 3. He also has previously been diagnosed with BPH and was seen by a urologist. In the emergency room, a Starks catheter was passed and at least 500 mL of urine was obtained, which was described as cloudy. Urinalysis showed many white cells. Patient's ICU course significant for hypothermia requiring warming blanket. PAST MEDICAL HISTORY: Positive for diabetes mellitus, chronic kidney disease, BPH, coronary artery disease, myocardial infarction, hypertension, chronic obstructive pulmonary disease. ALLERGIES: No known allergies. MEDICATION: At the present time include Tylenol, Zosyn, vancomycin, Ativan, Novolog. SOCIAL HISTORY: According to the chart, he lives at home. He is a smoker. No history of alcohol or substance abuse. SYSTEMIC REVIEW: Neurologic: Positive for lethargy. No loss of consciousness, seizure activity, or focal weakness. Cardiac: Negative chest pain or palpitations. Respiratory: Positive for tachypnea. No reported cough or sputum production. Gastrointestinal: Negative vomiting or diarrhea. Genitourinary: As per HPI. LABORATORY DATA: White count 13.4 with left shift, hematocrit 25.9, platelet count 317, BUN 202, creatinine 12. Urinalysis 2048 white cells. Chest x-ray negative for acute infiltrate. PHYSICAL EXAMINATION: General: He is awake but lethargic. He responds to tactile stimulus. He is short of breath. Vital signs: Temperature 96, blood pressure 144/72, pulse 103 regular, respirations 22 per minute. HEENT: Sclerae anicteric. Cardiovascular: Heart sounds S1, S2. Tachycardic. Respiratory: Lungs decreased breath sounds bilaterally. Abdomen: Soft. No tenderness elicited. No mass, rebound, or rigidity. Extremities: 1+ edema. Starks catheter is in place. Urine is cloudy. IMPRESSION: 1. Dgwse-[id number]-datskaa renal failure. 2. Urinary tract infection/sepsis secondary to urinary tract infection. 3. Severe acidosis. 4. Toxic metabolic encephalopathy. 5. Hypothermia secondary to sepsis. 6. Leukocytosis. 7. Diabetes mellitus. Pending sepsis workup, empiric antibiotic coverage with Zosyn and vancomycin adjusted for renal failure. Continue ICU monitoring. Critical care time 40 minutes. Prognosis is guarded. Will follow. Thank you for the kind referral. KYRA SENA M.D. [id number]
[2016-06-17] MEDS: CALCITRIOL 0.25 MCG CAPSULE (FP) PO SCH (16:52)
[2016-06-17 17:03] LABS: MAGNESIUM 1.7 mg/dL (1.8-2.4); PHOSPHOROUS 7.8 mg/dL (2.5-4.9)
[2016-06-17] MEDS: PIPERACILLIN/TAZOB 2.25 GM 50 ML IVPB SCH (17:56)
[2016-06-17] MEDS: INSULIN SLIDING SCALE (NOVOLOG) 1 VIAL SQ SCH ×2 (18:16→22:58)
[2016-06-17 18:41] LABS: CALCIUM 6.6 mg/dL (8.5-10.1); CREATININE 8.3 mg/dL (0.7-1.3)
[2016-06-17] MEDS ORDERED: WATER IVPB ONE ×2 (19:45→20:15)
[2016-06-17] MEDS ORDERED: DEXTROSE 5%-WATER - 1,000 ML with SODIUM BICARBONATE 8.4% - 150 MEQ IV SCH ×2 (19:45)
[2016-06-17] MEDS ORDERED: DEXTROSE 5% IVPB ONE ×2 (19:45→20:15)
[2016-06-17] MEDS ORDERED: CALCIUM GLUCONATE IVPB ONE ×2 (19:45→20:15)
[2016-06-17 20:42] LABS: ALLENS TEST POSITIVE; ART PUNCT SITE RIGHT RADIAL; ARTERIAL BLD GAS O2 SATURATION 97.5 % (90-98.9); ARTERIAL BLOOD GAS pH 7.44 (7.35-7.45); LPM/O2% 50%; PT. ON O2? YES; TYPE OF O2 VENTI MASK
[2016-06-17] MEDS ORDERED: METOPROLOL TARTRATE 5 MG/5 ML VIAL IVPUSH ONE (21:40)
[2016-06-17] MEDS ORDERED: PT OWN MED DRAWER 7, Y5N ONE (22:28)
[2016-06-17] MEDS: CALCIUM CARBONATE 650 MG TABLET PO SCH (22:32)
[2016-06-17] MEDS: HEPARIN NA (PORCINE) 5,000 UNITS/ML 1ML VIAL SQ SCH (22:32)
[2016-06-17] MEDS: MUPIROCIN 2% TOPICAL OINTMENT FOR DECOLONIZATION NS SCH (22:32)
[2016-06-17] MEDS: CHLORHEXIDINE GLUCONATE 4% CLEANSER FOR DECOLONIZATION TP SCH (22:34)
[2016-06-18] MEDS: PIPERACILLIN/TAZOB 2.25 GM 50 ML IVPB SCH ×3 (02:38→17:01)
[2016-06-18 06:06] LABS: HEP B SURFACE AB Non Reactive (.)
[2016-06-18 06:36] LABS: MCH 24.1 pg (25.7-33.7); MCHC 33.1 g/dl (32.0-35.9); MEAN CELL VOLUME 72.7 fl (80-96); MEAN PLT VOLUME 6.9 fl (7.5-11.1); PLATELET COUNT 232 K/MM3 (134-434); RDW 14.8 % (11.9-15.9)
[2016-06-18] MEDS: INSULIN SLIDING SCALE (NOVOLOG) 1 VIAL SQ SCH ×4 (06:43→21:55)
[2016-06-18 07:12] LABS: MAGNESIUM 1.7 mg/dL (1.8-2.4)
[2016-06-18 07:22] LABS: ARTERIAL BLD GAS O2 SATURATION 98.5 % (90-98.9); ARTERIAL BLOOD GAS BASE EXCESS -11.2 meq/l (-2-2); ARTERIAL BLOOD GAS HCO3 13.3 meq/L (22-26); ARTERIAL BLOOD GAS pH 7.35 (7.35-7.45)
[2016-06-18 07:23] LABS: ALLENS TEST POSITIVE; ART PUNCT SITE RIGHT RADIAL; LPM/O2% 2L; PT. ON O2? YES; TYPE OF O2 NASAL O2
[2016-06-18 07:30] LABS: CALCIUM 5.9 mg/dL (8.5-10.1); CREATININE 9.1 mg/dL (0.7-1.3)
[2016-06-18] MEDS ORDERED: MAGNESIUM SULF 50% (8.12 MEQ/2 ML-1 GM VIAL) IVPB ONE ×2 (07:58→11:28)
[2016-06-18] MEDS ORDERED: CALCIUM GLUCONATE 10% - 1,000 MG/10 ML VIAL IVPB ONE ×2 (07:59→08:00)
--- NOTE | 2016-06-18 08:15 | CON.GU ---
Consult - History of Present Illness History of Present Illness: 66 yo male admitted with sepsis, acidosis, weakness, creatinine 14.5, pvr 500cc upon joyner insertion. Patient first seen by me in January 2016 with uti and incomplete bladder emptying. He had been managed by his PCP on flomax/proscar and bethenacol. He was voiding adequately on discharge and had been instructed to f/u with me as outpatient but never did. Now admitted for above reasons. Has undergone emergent dialysis. Currently good urine output. Renal sono with mild left hydronephrosis - Past Medical History Cardio/Vascular: Yes: HTN Pulmonary: Yes: COPD Renal/: Yes: Renal Inusuff Endocrine: Yes: Diabetes Mellitus - Alcohol/Substance Use Hx Alcohol Use: No - Smoking History Smoking history: Current every day smoker Have you smoked in the past 12 months: Yes Aproximately how many cigarettes per day: 20 - Social History Usual Living Arrangement: Other (WITH BROTHER) ADL: Independent Home Medications - Allergies Allergies/Adverse Reactions: Allergies Allergy/AdvReac Type Severity Reaction Status Date / Time No Known Allergies Allergy Verified 06/17/16 04:20 - Home Medications Home Medications: Ambulatory Orders Albuterol Sulfate [Proair Respiclick] 90 mcg IH ASDIR PRN 01/24/16 Calcium Carbonate [Calcium] 2 tab.chew PO DAILY 01/24/16 Cholecalciferol (Vitamin D3) [Vitamin D3] 2,000 unit PO DAILY 01/24/16 Finasteride [Proscar] 5 mg PO DAILY 01/24/16 Glipizide 5 mg PO DAILY 01/24/16 Insulin Detemir [Levemir Flextouch] 20 unit SQ BID 01/24/16 Metoprolol Succinate [Toprol XL -] 50 mg PO HS 01/24/16 Tamsulosin HCl [Flomax -] 0.4 mg PO HS 01/24/16 Amlodipine Besylate [Norvasc -] 10 mg PO DAILY #30 tablet 01/26/16 Physical Exam- Vital Signs: Vital Signs Temperature 98.4 F 06/18/16 06:00 Pulse Rate 102 H 06/18/16 07:33 Respiratory Rate 16 06/18/16 07:33 Blood Pressure 144/76 06/18/16 07:33 O2 Sat by Pulse Oximetry (%) 98 06/18/16 07:45 Labs: CBC, BMP 06/18/16 05:00 06/18/16 05:00 Imaging - Results Ultrasound: Report Reviewed Problem List - Problems (1) Urinary retention Assessment/Plan: would keep joyner to SD until creatinine stabilizes. May restart flomax/proscar Code(s): R33.9 - RETENTION OF URINE, UNSPECIFIED
[2016-06-18] MEDS ORDERED: MAGNESIUM SULF 50% (8.12 MEQ/2 ML-1 GM VIAL) ONE (08:16)
[2016-06-18] MEDS ORDERED: CALCIUM GLUCONATE 10% - 1,000 MG/10 ML VIAL ONE (08:17)
[2016-06-18 08:30] LABS: PHOSPHOROUS 9.3 mg/dL (2.5-4.9)
[2016-06-18] MEDS ORDERED: PT OWN MED DRAWER 7, Y5N ONE ×2 (08:48→21:33)
[2016-06-18] MEDS: TAMSULOSIN HCL 0.4 MG CAP.ER.24H (FP) PO SCH (09:11)
[2016-06-18] MEDS: MUPIROCIN 2% TOPICAL OINTMENT FOR DECOLONIZATION NS SCH ×2 (09:12→21:54)
[2016-06-18] MEDS: HEPARIN NA (PORCINE) 5,000 UNITS/ML 1ML VIAL SQ SCH ×2 (09:12→21:53)
[2016-06-18] MEDS: CALCIUM CARBONATE 650 MG TABLET PO SCH ×2 (09:12→21:54)
[2016-06-18] MEDS: CALCITRIOL 0.25 MCG CAPSULE (FP) PO SCH (09:12)
[2016-06-18] MEDS: FINASTERIDE 5 MG TABLET (FP) PO SCH (10:58)
--- NOTE | 2016-06-18 11:17 | PN ---
Progress Note (short form) - Note Progress Note: awake and alert s/p HD yesterday s/p vancomycin yesterday on zosyn now reports feeling progressively weaker at home less urine output finally almost fell so came the next day never followed up with PMD after d/c in January ran out of meds including diabetic meds aobut a month ago- he thinks April! denies fevers or chills Vital Signs Period Temp Pulse Resp BP Sys/Vogt Pulse Ox Last 24 Hr 96 F-99.1 F 84-115 14-26 128-167/56-92 98-100 cor-rrr lungs clear abd soft, nt ext no edema joyner CBC, BMP 06/18/16 05:00 06/18/16 05:00 Laboratory Tests 06/18/16 05:00 Hemoglobin A1c % 15.9 H D Microbiology 06/17/16 10:15 Blood Culture - Preliminary Blood - Shiley Catheter NO GROWTH OBTAINED AFTER 24 HOURS, INCUBATION TO CONTINUE FOR 4 DAYS. 06/17/16 10:15 Blood Culture - Preliminary Blood - Shiley Catheter NO GROWTH OBTAINED AFTER 24 HOURS, INCUBATION TO CONTINUE FOR 4 DAYS. 06/17/16 10:40 Urine Culture - Preliminary Urine - Urine Joyner Group D Strep Or Entero Coccus a/p ISA UTI/sepsis secondary to UTI severe anemia diabetes out of control- hgbaic of 15.9! check vanco level with HD, redose if less then 15 f/u cultures will adjust antibiotics in am when cultures are back
[2016-06-18] MEDS ORDERED: DEXTROSE 5%-WATER - 1,000 ML with CALCIUM GLUCONATE 10% - 11,000 MG IVPB SCH (11:30)
[2016-06-18] MEDS ORDERED: SODIUM CHLORIDE 1,000 ML IV SCH (11:30)
[2016-06-18] MEDS ORDERED: VANCOMYCIN 1,000 MG in DEXTROSE 5%-WATER - 250 ML IVPB SCH (11:45)
--- NOTE | 2016-06-18 11:52 | PN ---
Progress Note (short form) - Note Progress Note: Renal Follow up for ISA on CKD Pt seen and examined at the bedside awake and alert no acute complaints s/p first dialysis yesterday w/o complications good urine output via Joyner denies cp, sob, n/v/d Vital Signs Temperature 97.4 F L 06/18/16 10:00 Pulse Rate 108 H 06/18/16 11:00 Respiratory Rate 18 06/18/16 11:00 Blood Pressure 152/78 06/18/16 11:00 O2 Sat by Pulse Oximetry (%) 98 06/18/16 10:20 Intake & Output 06/15/16 06/16/16 06/17/16 06/18/16 23:59 23:59 23:59 23:59 Intake Total 1075 800 Output Total 1000 500 Balance 75 300 Weight 214 lb 209 lb 14.4 oz Gen: NAD, awake and alert CVS: RRR, No M/R Lungs: CTA no rales Abd: soft NT/ND Ext: No edema, clubbing or cyanosis : no bladder distension, joyner in place with yellow urine CBC, BMP 06/18/16 05:00 Laboratory Tests 06/18/16 06/18/16 06/18/16 05:00 05:00 05:00 Sodium 140 Potassium 4.1 Chloride 104 Carbon Dioxide 17 L D Anion Gap 19 H BUN 134 H* Creatinine 9.1 H* Hemoglobin A1c % 15.9 H D Lactic Acid 0.561 Calcium 5.9 L* Phosphorus 9.3 H* Magnesium 1.7 L Lipase 3767 H Current Medications Acetaminophen (Tylenol -) 650 mg PO Q4H PRN PRN Reason: FEVER OR PAIN Calcitriol (Rocaltrol -) 0.25 mcg PO DAILY [facility] Last Admin: 06/18/16 09:12 Dose: 0.25 mcg Calcium Acetate (Phoslo -) 1,334 mg PO TIDCM [facility] Calcium Carbonate (Calcium Carbonate -) 1,300 mg PO BID [facility] Last Admin: 06/18/16 09:12 Dose: 1,300 mg Chlorhexidine Gluconate (Hibiclens For Decolonization -) 1 applic TP HS [facility] Last Admin: 06/17/16 22:34 Dose: 1 applic Finasteride (Proscar -) 5 mg PO DAILY [facility] Last Admin: 06/18/16 10:58 Dose: 5 mg Heparin Sodium (Porcine) (Heparin -) 5,000 unit SQ BID [facility] Last Admin: 06/18/16 09:12 Dose: 5,000 unit Piperacillin Sod/Tazobactam Sod (Zosyn 2.25gm Ivpb (Pre-Docked)) 50 mls @ 100 mls/hr IVPB Q8H-IV AKOSUA PRN Reason: Protocol Last Admin: 06/18/16 09:12 Dose: 100 mls/hr Calcium Gluconate 11,000 mg/ (Dextrose) 1,110 mls @ 50 mls/hr IVPB .[id number] AKOSUA Vancomycin HCl 1,000 mg/ (Dextrose) 250 mls @ 250 mls/hr IVPB DAILY [facility] PRN Reason: Protocol Stop: 06/19/16 11:44 Sodium Chloride (Normal Saline -) 1,000 mls @ 84 mls/hr IV ASDIR [facility] Insulin Aspart (Novolog Vial Sliding Scale -) 1 vial SQ ACHS [facility] PRN Reason: Protocol Last Admin: 06/18/16 06:43 Dose: Not Given Lorazepam (Ativan Injection -) 1 mg IVPUSH TID PRN PRN Reason: ANXIETY Stop: 06/18/16 13:54 Last Admin: 06/17/16 14:01 Dose: 1 mg Magnesium Sulfate (Magnesium Sulfate) 2 gm IVPB ONCE ONE Stop: 06/18/16 11:29 Last Admin: 06/18/16 11:44 Dose: Not Given Mupirocin (Bactroban Ointment (For Decolonization) -) 1 applic NS BID [facility] Stop: 06/22/16 21:59 Last Admin: 06/18/16 09:12 Dose: 1 applic Tamsulosin HCl (Flomax -) 0.4 mg PO DAILY@0830 [facility] Last Admin: 06/18/16 09:11 Dose: 0.4 mg A/P 66 year old Gentleman with PMhx of CKD (Cr was 3 in January), Hypertension, CAD , IDDM, BPH who presented to the ED with complaints of SOB and found to have BUN /Cr of 230/14.5, K of 7.6 and Bicarb of 4. #Acute Renal Failure in setting of CKD for second HD today with no UF will use 3k/3ca bath because of low serum Ca pt is non-oliguric Renal US showed left Kidney Hydronephrosis - seen by urology to maintain joyner and Flomax/Proscar Trend BUN/Cr #Hyperkalemia secondary to renal insufficiency improved s/p emergent HD Renal Diet #Metabolic acidosis with Resp Compensation improved after dialysis to get second HD today Lactic acid is WNL #Hypocalcemia/Hyperphosphatemia Corrected Ca is 6.8 Will use higher Ca bath with HD Continue phoslo and Calcitriol Start D5W with 11g Ca Gluconate at 50cc per hour after dialysis Repeat Ca level this evening, goal is > 7.5 #Anemia for 2 prbc transfusion today with HD #Leukocytosis/Hypothermia Urine + for enterococcus Continue Abx as per ID Dominick Vanegas DO
[2016-06-18] MEDS: SODIUM CHLORIDE 1,000 ML IV SCH (11:53)
[2016-06-18] MEDS: CALCIUM ACETATE 667 MG CAPSULE (FP) PO SCH ×2 (11:55→16:54)
--- NOTE | 2016-06-18 12:10 | PN ---
Teaching Attending Note Name of Resident: Emerson Ng ATTENDING PHYSICIAN STATEMENT I saw and evaluated the patient. I reviewed the resident's note and discussed the case with the resident. I agree with the resident's findings and plan as documented. SUBJECTIVE: Pt seen and examined in the ICU. Feels significantly improved s/p HD. Did not require BiPAP overnight. Adequate urine output. OBJECTIVE: Last Vital Signs Temp Pulse Resp BP Pulse Ox 98.6 F 108 H 18 147/78 98 06/18/16 11:40 06/18/16 11:58 06/18/16 11:58 06/18/16 11:58 06/18/16 10:20 Intake & Output 06/15/16 06/16/16 06/17/16 06/18/16 23:59 23:59 23:59 23:59 Intake Total 1075 800 Output Total 1000 500 Balance 75 300 Weight 214 lb 209 lb 14.4 oz Gen: less tachypneic Heart: tachycardic, regular Lung: scattered rhonchi Abd: soft, nontender Ext: no edema CBC, BMP 06/18/16 05:00 06/18/16 11:10 Active Medications Acetaminophen (Tylenol -) 650 mg PO Q4H PRN PRN Reason: FEVER OR PAIN Calcitriol (Rocaltrol -) 0.25 mcg PO DAILY [facility] Last Admin: 06/18/16 09:12 Dose: 0.25 mcg Calcium Acetate (Phoslo -) 1,334 mg PO TIDCM [facility] Last Admin: 06/18/16 11:55 Dose: 1,334 mg Calcium Carbonate (Calcium Carbonate -) 1,300 mg PO BID [facility] Last Admin: 06/18/16 09:12 Dose: 1,300 mg Chlorhexidine Gluconate (Hibiclens For Decolonization -) 1 applic TP HS [facility] Last Admin: 06/17/16 22:34 Dose: 1 applic Finasteride (Proscar -) 5 mg PO DAILY [facility] Last Admin: 06/18/16 10:58 Dose: 5 mg Heparin Sodium (Porcine) (Heparin -) 5,000 unit SQ BID [facility] Last Admin: 06/18/16 09:12 Dose: 5,000 unit Piperacillin Sod/Tazobactam Sod (Zosyn 2.25gm Ivpb (Pre-Docked)) 50 mls @ 100 mls/hr IVPB Q8H-IV AKOSUA PRN Reason: Protocol Last Admin: 06/18/16 09:12 Dose: 100 mls/hr Calcium Gluconate 11,000 mg/ (Dextrose) 1,110 mls @ 50 mls/hr IVPB .[id number] [facility] Sodium Chloride (Normal Saline -) 1,000 mls @ 84 mls/hr IV ASDIR [facility] Last Admin: 06/18/16 11:53 Dose: 84 mls/hr Insulin Aspart (Novolog Vial Sliding Scale -) 1 vial SQ ACHS [facility] PRN Reason: Protocol Last Admin: 06/18/16 06:43 Dose: Not Given Lorazepam (Ativan Injection -) 1 mg IVPUSH TID PRN PRN Reason: ANXIETY Stop: 06/18/16 13:54 Last Admin: 06/17/16 14:01 Dose: 1 mg Mupirocin (Bactroban Ointment (For Decolonization) -) 1 applic NS BID [facility] Stop: 06/22/16 21:59 Last Admin: 06/18/16 09:12 Dose: 1 applic Tamsulosin HCl (Flomax -) 0.4 mg PO DAILY@0830 [facility] Last Admin: 06/18/16 09:11 Dose: 0.4 mg ASSESSMENT AND PLAN: Acute on Chronic Renal Failure requiring emergent HD Hyperkalemia Profound Metabolic Acidosis improved UTI Acute Respiratory Distress requiring NIPPV resolving HTN DM BPH - HD per renal - monitor urine output, creatinine - IVF - monitor lytes - input appreciated, proscar and flomax started - empiric antibiotics - f/u cultures - BiPAP as needed to assist in work of breathing - DVT/GI prophylaxis - continue ICU monitoring
[2016-06-18 13:00] LABS: FERRITIN 1076.225 ng/ml (16.4-293.9)
--- NOTE | 2016-06-18 13:26 | PN ---
Physical Exam: SUBJECTIVE: Patient seen and examined at bedside in the ICU. He reported breathing better, did not use BiPAP at night, no fever, chills overnight. Further denies chest pain, abd pain, weakness, n/v, bowel sx. OBJECTIVE: Vital Signs Period Temp Pulse Resp BP Sys/Vogt Pulse Ox Last 24 Hr 96 F-99.1 F 90-115 14-19 134-167/56-91 98-100 GENERAL: Awake, alert, and fully oriented, on NC 2L EYES: sclera anicteric, conjunctiva clear. EARS, NOSE, THROAT: wearing NC LUNGS: Bilateral wheezing posteriorly HEART: RRR, normal S1 and S2 without murmur, rub or gallop. ABDOMEN: Soft, obese, nontender, not distended, normoactive bowel sounds, no guarding, no rebound, no masses LOWER EXTREMITIES: warm, No calf tenderness. trace edema : joyner in place with yellow and clear urine SKIN: dark brown indurated lesion, ?ulcer with brownish drainage, foul smelling ABG Results ABG pH 7.35 (7.35-7.45) 06/18/16 07:10 ABG pCO2 at Pt Temp 25.1 mmHg (35-45) L D 06/18/16 07:10 ABG pO2 at Pt Temp 118.0 mmHg (80-100) H D 06/18/16 07:10 ABG HCO3 13.3 meq/L (22-26) L* 06/18/16 07:10 ABG O2 Sat (Measured) 98.5 % (90-98.9) 06/18/16 07:10 ABG O2 Content 7.8 % vol (15-22) L* 06/18/16 07:10 ABG Base Excess -11.2 meq/l (-2-2) L* 06/18/16 07:10 CBCD WBC 14.0 K/mm3 (4.0-10.0) H 06/18/16 05:00 RBC 2.90 M/mm3 (4.00-5.60) L 06/18/16 05:00 Hgb 7.0 GM/dL (11.7-16.9) L D 06/18/16 05:00 Hct 21.1 % (35.4-49) L D 06/18/16 05:00 MCV 72.7 fl (80-96) L 06/18/16 05:00 MCHC 33.1 g/dl (32.0-35.9) 06/18/16 05:00 RDW 14.8 % (11.9-15.9) 06/18/16 05:00 Plt Count 232 K/MM3 (134-434) D 06/18/16 05:00 MPV 6.9 fl (7.5-11.1) L 06/18/16 05:00 CMP Sodium 140 mmol/L (136-145) 06/18/16 05:00 Potassium 4.1 mmol/L (3.5-5.1) 06/18/16 05:00 Chloride 104 mmol/L (98-107) 06/18/16 05:00 Carbon Dioxide 17 mmol/L (21-32) L D 06/18/16 05:00 Anion Gap 19 (8-16) H 06/18/16 05:00 BUN 134 mg/dL (7-18) H* 06/18/16 05:00 Creatinine 9.1 mg/dL (0.7-1.3) H* 06/18/16 05:00 Creat Clearance w eGFR 3.42 (>60) 06/17/16 05:49 Calcium 5.9 mg/dL (8.5-10.1) L* 06/18/16 05:00 Total Bilirubin 0.3 mg/dL (0.2-1.0) 06/17/16 05:49 AST 13 U/L (15-37) L 06/17/16 05:49 ALT 16 U/L (12-78) 06/17/16 05:49 Alkaline Phosphatase 93 U/L (45-117) D 06/17/16 05:49 Total Protein 7.2 g/dl (6.4-8.2) 06/17/16 05:49 Albumin 2.8 g/dl (3.4-5.0) L 06/17/16 05:49 Intake & Output 06/15/16 06/16/16 06/17/16 06/18/16 23:59 23:59 23:59 23:59 Intake Total 1075 800 Output Total 1000 500 Balance 75 300 Weight 97.069 kg 95.209 kg Active medications Generic Name Dose Route Start Last Admin Trade Name Freq PRN Reason Stop Dose Admin Acetaminophen 650 mg 06/17/16 13:20 Tylenol - PO Q4H PRN FEVER OR PAIN Calcitriol 0.25 mcg 06/17/16 16:45 06/18/16 09:12 Rocaltrol - PO 0.25 mcg DAILY AKOSUA Administration Calcium Acetate 1,334 mg 06/18/16 12:00 06/18/16 11:55 Phoslo - PO 1,334 mg TIDCM AKOSUA Administration Calcium Carbonate 1,300 mg 06/17/16 22:00 06/18/16 09:12 Calcium Carbonate - PO 1,300 mg BID AKOSUA Administration Chlorhexidine Gluconate 1 applic 06/17/16 22:00 06/17/16 22:34 Hibiclens For Decolonization - TP 1 applic HS AKOSUA Administration Finasteride 5 mg 06/18/16 10:00 06/18/16 10:58 Proscar - PO 5 mg DAILY AKOSUA Administration Heparin Sodium (Porcine) 5,000 unit 06/17/16 22:00 06/18/16 09:12 Heparin - SQ 5,000 unit BID AKOSUA Administration Piperacillin Sod/Tazobactam Sod 50 mls @ 100 mls/hr 06/17/16 18:00 06/18/16 09: 12 Zosyn 2.25gm Ivpb (Pre-Docked) IVPB 100 mls/hr Q8H-IV AKOSUA Administration Protocol Calcium Gluconate 11,000 mg/ 1,110 mls @ 50 mls/hr 06/18/16 11:30 Dextrose IVPB .[id number] AKOSUA Sodium Chloride 1,000 mls @ 84 mls/hr 06/18/16 11:49 06/18/16 11:53 Normal Saline - IV 84 mls/hr ASDIR KAOSUA Administration Insulin Aspart 1 vial 06/17/16 16:30 06/18/16 12:42 Novolog Vial Sliding Scale - SQ 4 units ACHS AKOSUA Administration Protocol Lorazepam 1 mg 06/17/16 13:55 06/17/16 14:01 Ativan Injection - IVPUSH 06/18/16 13:54 1 mg TID PRN Administration ANXIETY Mupirocin 1 applic 06/17/16 22:00 06/18/16 09:12 Bactroban Ointment (For Decolonization) - NS 06/22/16 21:59 1 applic BID AKOSUA Administration Tamsulosin HCl 0.4 mg 06/18/16 09:00 06/18/16 09:11 Flomax - PO 0.4 mg DAILY@0830 AKOS[facility] Administration Microbiology 06/17/16 10:40 Urine - Urine Joyner Urine Culture - Preliminary Group D Strep Or Entero Coccus Imaging CXR on 06/18: no acute change CXR on 06/17: No acute change EKG: no acute pathology NSR Renal U/S on 06/17: gallstone, bilateral renal cysts, L hydroneph ASSESSMENT/PLAN: 65 yo M w/ h/o HTN, poorly controlled NIDDM, CKD stage 5 not on HD, recurrent UTI 2/2 chronic obstructive uropathy admitted to the ICU for ISA on CKD with acute respiratory distress. Renal: ISA on CKD (Stage 5) in the setting of diabetic nephropathy and chronic obstructive uropathy 2/2 BPH - s/p shiley catheter placement and dialysis yesterday and today - Improving metabolic acidosis from possible lactic acidosis and RTA - FeUrea = 44.5 suggests intrinsic renal disease - Cont. joyner, monitor I/O - Restart flomax/proscar per urology - Dialysis PRN - Dose all meds renally Respiratory: Hyperventilation 2/2 metabolic acidosis - On NC 2L * BiPAP PRN * Maintain O2 Sat> 88% - Improving on ABG - August d/c daily CXR ID: Sepsis 2/2 UTI - h/o recurrent UTI with negative urine cultures (at [facility]) * recently discharged on augmentin - (+) UA with 2048 WBC - Urine culture grew enteroccus vs. group D strep - On empirically zosyn day 2 and vanco one dose * f/u vanco level, redose if < 15 * will adjust abx after final culture Heme: Microcytic anemia, chronic in the setting of CKD - 2/2 CKD - 2 PRBC with HD today - Cont. monitor, transfuse if HGB < 7 Endo: Poorly controlled DM2 - A1C 16 - on sliding scale - BGM FEN - NS 84ml/hr for now, D5W + CaGluconate 50ml/hr after HD - Recheck BMP (Ca2+, K+, CO3-), cont. CaCO3, Phoslo and Calcitriol - Renal diet Prophylaxis - DVT: Heparin 5000 units SQ - GI: Not indicated Disposition - cont. to monitor in ICU Code status - Full code Visit type - Emergency Visit Emergency Visit: No - New Patient This patient is new to me today: No - Critical Care Critical Care patient: Yes Total Critical Care Time (in minutes): 45 Critical Care Statement: The care of this patient involved high complexity decision making to prevent further life threatening deterioration of the patient 's condition and/or to evalute & treat vital organ system(s) failure or risk of failure.
[2016-06-18] MEDS ORDERED: VANCOMYCIN 1,000 MG in DEXTROSE 5%-WATER - 250 ML IVPB ONE (14:30)
[2016-06-18] MEDS: VANCOMYCIN 1 GRAM (PRE-DOCKED) 250 ML IVPB ONE ×2 (14:56→14:58)
[2016-06-18] MEDS ORDERED: WATER IVPB SCH (15:00)
[2016-06-18] MEDS ORDERED: CALCIUM GLUCONATE IVPB SCH (15:00)
[2016-06-18] MEDS ORDERED: DEXTROSE 5% IVPB SCH (15:00)
[2016-06-18] MEDS ORDERED: METOPROLOL TARTRATE 5 MG/5 ML VIAL IVPUSH ONE ×2 (16:48→17:44)
[2016-06-18] MEDS ORDERED: METOPROLOL TARTRATE 5 MG/5 ML VIAL ONE (16:49)
[2016-06-18] MEDS ORDERED: METOPROLOL SUCCINATE 50 MG TAB.SR.24H (FP) ONE (17:00)
--- NOTE | 2016-06-18 17:36 | PN ---
Physical Exam: SUBJECTIVE: Patient seen and examined at bed side in ICU. patient feels much better less sob, and more energy than yesterday. patient more alert and asking appropriate questions, yet speech is shuddering and asking same questions multiple times. s/p first dialysis yesterday w/o complications good urine output via Joyner denies cp, sob, n/v/d will go HD again today OBJECTIVE: Vital Signs Period Temp Pulse Resp BP Sys/Vogt Pulse Ox Last 24 Hr 97.4 F-99.1 F 90-125 14-19 134-167/56-91 98-100 GENERAL: The patient is awake, alert, and fully oriented, in no acute distress. HEAD: Normal with no signs of trauma. EYES: PERRL, extraocular movements intact, sclera anicteric, conjunctiva clear. No ptosis. ENT: Ears normal, nares patent, oropharynx clear without exudates, moist mucous membranes. NECK: Trachea midline, full range of motion, supple. LUNGS: Breath sounds equal, clear to auscultation bilaterally, + diffused wheezes, no crackles, no accessory muscle use. HEART: Regular rate and rhythm, S1, S2, + murmur, no rub or gallop. ABDOMEN: Soft, nontender, nondistended, normoactive bowel sounds, no guarding, no rebound, no hepatosplenomegaly, no masses. joyner in place with yellow and clear urine EXTREMITIES: 2+ pulses, warm, well-perfused, no edema. NEUROLOGICAL: Cranial nerves II through XII grossly intact. Normal speech, gait not observed. PSYCH: Normal mood, normal affect. SKIN: Warm, dry, pale, uremic carroll, Laboratory Results - last 24 hr 06/17/16 06/17/16 06/17/16 15:25 15:25 17:30 WBC RBC Hgb Hct MCV MCHC RDW Plt Count MPV Puncture Site ABG pH ABG pCO2 at Pt Temp ABG pO2 at Pt Temp ABG HCO3 ABG O2 Sat (Measured) ABG O2 Content ABG Base Excess Jelani Test O2 Delivery Device Oxygen Flow Rate PEEP Sodium Cancelled 137 Potassium Cancelled 3.6 Chloride Cancelled 98 Carbon Dioxide Cancelled 11 L Anion Gap Cancelled 28 H BUN Cancelled 129 H* Creatinine Cancelled 8.3 H* POC Glucometer Random Glucose Cancelled 350 H* D Hemoglobin A1c % Lactic Acid Calcium Cancelled 6.6 L* Phosphorus Magnesium Ferritin Lipase Random Vancomycin Hepatitis A Ab Total Negative Hep Bs Antigen Negative Hep Bs Antibody Non reactive Hep B Core Total Ab Negative Hepatitis C Antibody 0.2 06/17/16 06/17/16 06/17/16 18:04 20:30 22:55 WBC RBC Hgb Hct MCV MCHC RDW Plt Count MPV Puncture Site Right radial ABG pH 7.44 ABG pCO2 at Pt Temp 20.9 L D ABG pO2 at Pt Temp 169.0 H* ABG HCO3 14.0 L* ABG O2 Sat (Measured) 97.5 ABG O2 Content 9.7 L* ABG Base Excess -9.0 L Jelani Test Positive O2 Delivery Device Venti mask Oxygen Flow Rate 50% PEEP 0.0 Sodium Potassium Chloride Carbon Dioxide Anion Gap BUN Creatinine POC Glucometer [phone] Random Glucose Hemoglobin A1c % Lactic Acid Calcium Phosphorus Magnesium Ferritin Lipase Random Vancomycin Hepatitis A Ab Total Hep Bs Antigen Hep Bs Antibody Hep B Core Total Ab Hepatitis C Antibody 06/18/16 06/18/16 06/18/16 05:00 05:00 05:00 WBC 14.0 H RBC 2.90 L Hgb 7.0 L D Hct 21.1 L D MCV 72.7 L MCHC 33.1 RDW 14.8 Plt Count 232 D MPV 6.9 L Puncture Site ABG pH ABG pCO2 at Pt Temp ABG pO2 at Pt Temp ABG HCO3 ABG O2 Sat (Measured) ABG O2 Content ABG Base Excess Jelani Test O2 Delivery Device Oxygen Flow Rate PEEP Sodium 140 Potassium 4.1 Chloride 104 Carbon Dioxide 17 L D Anion Gap 19 H BUN 134 H* Creatinine 9.1 H* POC Glucometer Random Glucose 158 H D Hemoglobin A1c % Lactic Acid 0.561 Calcium 5.9 L* Phosphorus 9.3 H* Magnesium 1.7 L Ferritin 1076.225 H Lipase 3767 H Random Vancomycin Hepatitis A Ab Total Hep Bs Antigen Hep Bs Antibody Hep B Core Total Ab Hepatitis C Antibody 06/18/16 06/18/16 06/18/16 05:00 06:29 07:10 WBC RBC Hgb Hct MCV MCHC RDW Plt Count MPV Puncture Site Right radial ABG pH 7.35 ABG pCO2 at Pt Temp 25.1 L D ABG pO2 at Pt Temp 118.0 H D ABG HCO3 13.3 L* ABG O2 Sat (Measured) 98.5 ABG O2 Content 7.8 L* ABG Base Excess -11.2 L* Jelani Test Positive O2 Delivery Device Nasal o2 Oxygen Flow Rate 2l PEEP Sodium Potassium Chloride Carbon Dioxide Anion Gap BUN Creatinine POC Glucometer [phone] Random Glucose Hemoglobin A1c % 15.9 H D Lactic Acid Calcium Phosphorus Magnesium Ferritin Lipase Random Vancomycin Hepatitis A Ab Total Hep Bs Antigen Hep Bs Antibody Hep B Core Total Ab Hepatitis C Antibody 06/18/16 06/18/16 11:10 12:30 WBC RBC Hgb Hct MCV MCHC RDW Plt Count MPV Puncture Site ABG pH ABG pCO2 at Pt Temp ABG pO2 at Pt Temp ABG HCO3 ABG O2 Sat (Measured) ABG O2 Content ABG Base Excess Jelani Test O2 Delivery Device Oxygen Flow Rate PEEP Sodium Potassium Chloride Carbon Dioxide Anion Gap BUN Creatinine POC Glucometer Random Glucose 299 H D Hemoglobin A1c % Lactic Acid Calcium Phosphorus Magnesium Ferritin Lipase Random Vancomycin 12.195 Hepatitis A Ab Total Hep Bs Antigen Hep Bs Antibody Hep B Core Total Ab Hepatitis C Antibody Active Medications Generic Name Dose Route Start Last Admin Trade Name Freq PRN Reason Stop Dose Admin Acetaminophen 650 mg 06/17/16 13:20 Tylenol - PO Q4H PRN FEVER OR PAIN Amlodipine Besylate 10 mg 06/19/16 10:00 Norvasc - PO DAILY AKOSUA Calcitriol 0.25 mcg 06/17/16 16:45 06/18/16 09:12 Rocaltrol - PO 0.25 mcg DAILY AKOSUA Administration Calcium Acetate 1,334 mg 06/18/16 12:00 06/18/16 16:54 Phoslo - PO 1,334 mg TIDCM AKOSUA Administration Calcium Carbonate 1,300 mg 06/17/16 22:00 06/18/16 09:12 Calcium Carbonate - PO 1,300 mg BID AKOSUA Administration Chlorhexidine Gluconate 1 applic 06/17/16 22:00 06/17/16 22:34 Hibiclens For Decolonization - TP 1 applic HS AKOSUA Administration Cholecalciferol 2,000 unit 06/19/16 10:00 Vitamin D3 - PO DAILY AKOSUA Finasteride 5 mg 06/18/16 10:00 06/18/16 10:58 Proscar - PO 5 mg DAILY AKOSUA Administration Heparin Sodium (Porcine) 5,000 unit 06/17/16 22:00 06/18/16 09:12 Heparin - SQ 5,000 unit BID AKOSUA Administration Piperacillin Sod/Tazobactam Sod 50 mls @ 100 mls/hr 06/17/16 18:00 06/18/16 17: 01 Zosyn 2.25gm Ivpb (Pre-Docked) IVPB 100 mls/hr Q8H-IV AKOSUA Administration Protocol Sodium Chloride 1,000 mls @ 84 mls/hr 06/18/16 11:49 06/18/16 11:53 Normal Saline - IV 84 mls/hr ASDIR AKOSUA Administration Calcium Gluconate 11,000 mg/ 1,110 mls @ 50 mls/hr 06/18/16 15:00 06/18/16 14: 57 Dextrose IVPB 50 mls/hr Q22H AKOSUA Administration Insulin Aspart 1 vial 06/17/16 16:30 06/18/16 12:42 Novolog Vial Sliding Scale - SQ 4 units ACHS AKOSUA Administration Protocol Insulin Detemir 20 units 06/18/16 22:00 Levemir Vial SQ BID@0700,2200 AKOSUA Metoprolol Succinate 50 mg 06/18/16 22:00 Toprol Xl - PO HS AKOSUA Mupirocin 1 applic 06/17/16 22:00 06/18/16 09:12 Bactroban Ointment (For Decolonization) - NS 06/22/16 21:59 1 applic BID AKOSUA Administration Non-Formulary Medication 90 mcg 06/18/16 16:48 Albuterol Sulfate [Proair Respiclick] IH ASDIR PRN SHORT OF BREATH/WHEEZING Tamsulosin HCl 0.4 mg 06/18/16 09:00 06/18/16 09:11 Flomax - PO 0.4 mg DAILY@0830 AKOSUA Administration Renal U/S on 06/17: gallstone, bilateral renal cysts, mild L hydroneph ASSESSMENT/PLAN: This is a 66 year old Gentleman with PMhx of CKD (Cr was 3 in January), Hypertension, CAD, IDDM, BPH who presented to the ED with complaints of worsening SOB an lethargy and found to have BUN/Cr of 230/14.5, K of 7.6 and Bicarb of 4. Pt denies any history of CKD despite having elevated cr on or record. s/p shiley catheter placement and now receiving emergent HD for profound acidosis, electrolyte correction and respiratory distress. Sever Sepsis secondary to possible UTI and mild L hydronephrosis. : leukocytosis, tachepnic, tachycardic, -UA positive 2047 WBC -blood culture pending -urine culture- grew enteroccus vs. group D strep -cont zosyn -Vanco random level checked during HD to be 12.1, redosed with 1 g, will re- check level after 24 hours. redose if less than 15 -renal/bladder ultrasound -blood culture, urine culture -ID consult appreciated. Acute toxic/metabolic encephalopathy- 2/2 to uremia. pt is alert and aware but slow to respond, ask quesions multiple times, stuttered speech. s/p HD yesterday with improvement in mental status. CT head negative for acute pathology. cont to monitor mental status cont to monitor electrolytes Acute on Chronic Renal failure:(Stage 5) Cr Cl less then 10 s/p shiley catheter placement and now receiving emergent HD for profound acidosis, electrolyte correction and respiratory distress. Etiology of ISA unclear at this time- FeUrea = 44.5 suggests intrinsic. renal disease. In light of history and clinical presentation need to r/o obstruction. - Improving metabolic acidosis from possible lactic acidosis and RTA Renal and Bladder US to r/o obstruction, urology consulted Cont joyner, strict I and O Dose all meds for Cr Cl less then 10 Restart flomax/proscar per urolog f/u urine lytes, creatinine Elevated anion GAP: most likely secondary to uremia. -HD Metabolic acidosis with Resp Compensation : from possible lactic acidosis and RTA -On Ventimask 15L -BiPAP to assist in work of breathing -Maintain O2 Sat> 88% -second HD today Hypocalcemia- Corrected ca 6.9. received calcium gluconate to be adjusted with HD today. Start D5W with 11g Ca Gluconate at 50cc per hour after dialysis per renal. Repeat Ca level this evening, goal is > 7.5 per renal. Hyperkalemia- HD with low potassium bath per nephrology. monitor electrolyte awaiting repeat BMP BPH-Incomplete bladder emtying with BPH joyner catheter Urology consult monitor urine output. will consider restating flomax/proscar/bethenacol. EXOPHYTIC RIGHT KIDNEY LESION: incidental renal mass on last admission. - urology on case Hyperkalemia resolved s/p HD Renal Diet Avoid ELIOT/ARBs at this time follow BMP Prolonged Qt- avoid QT prolonging medications. Metabolic acidosis with Resp Compensation: Inc anion gap 2/2 CKD. ph 6.8 d/c biacrb gtt as now ph 7.5 repeat abg after HD and reaccess need for bicarb gtt. Anemia: Microcytic anemia, chronic in the setting of CKD.s/p 2 PRBC with HD today, -awaiting Iron studies from morning labs prior to transfusion ; including ferritin, TIBC, reticulocyte count , folate, B12: -f/u H/H -Cont monitor, transfuse if HGB < 7. no need at this time Thoracic aortic aneurysm -4.9cm on echo with reported trileaflet aortic valve from last admission . -cont toprol -needs close outpatient follow up -would require sizing of aorta on his CT chest Diabetes Mellitus type II- poorly controlled -HA1C 15.9 -Glucose checks HCHS -insulin SS ACHS COPD- bronchio dilators Bipap PRN supplemental O2 LUNG NODULES ON CT CHEST: monitor 3 to 6 months compare to prior study Prophylaxis - DVT: Heparin 5000 units SQ - GI: Not indicated dispo: continue ICU monitoring - monitor lytes Visit type - Emergency Visit Emergency Visit: Yes ED Registration Date: 06/17/16 Care time: The patient presented to the Emergency Department on the above date and was hospitalized for further evaluation of their emergent condition. - New Patient This patient is new to me today: No - Critical Care Critical Care patient: Yes Total Critical Care Time (in minutes): 45 Critical Care Statement: The care of this patient involved high complexity decision making to prevent further life threatening deterioration of the patient 's condition and/or to evalute & treat vital organ system(s) failure or risk of failure.
--- NOTE | 2016-06-18 18:01 | PN ---
Teaching Attending Note Name of Resident: Jesse Cerna ATTENDING PHYSICIAN STATEMENT I saw and evaluated the patient. I reviewed the resident's note and discussed the case with the resident. I agree with the resident's findings and plan as documented. SUBJECTIVE:currently asymptomatic. denies CP, SOB, fever, chills, N/V/C/D OBJECTIVE: Last Vital Signs Temp Pulse Resp BP Pulse Ox 99 F 120 H 18 160/80 98 06/18/16 17:00 06/18/16 17:49 06/18/16 17:00 06/18/16 17:49 06/18/16 10:20 Intake & Output 06/15/16 06/16/16 06/17/16 06/18/16 23:59 23:59 23:59 23:59 Intake Total 1075 3200 Output Total 1000 1000 Balance 75 2200 Weight 214 lb 209 lb 14.4 oz general NAD, A&O x3 halting speech CV S1 S2 tachycardic no murmur/rub/gallop Lungs CTA B/L no wheezing/rales/rhonchi ABdomen soft NT/ND no CVA tenderness extremities no pedal edema ASSESSMENT AND PLAN: 66yo M with PMH PMhx of CKD (Cr was 3 in January), Hypertension, CAD, IDDM, BPH who presented to the ED and was admitted for further evaluation of their emergent condition 1. Severe Sepsis due to UTI- mild L hydronephrosis. clinically improved. afebrile. on zosyn day 2. ID on board. f/u Cx 2. Acute toxic/metabolic encephalopathy- due to uremia. s/p HD yesterday with improvement in mental status. pt is alert and aware but slow to respond. CT head negative for acute pathology. cont to monitor mental status 3. Acute on CKD- likely due to obstructive. hx of BPH. s/p HD yesterday with 1kg removal. plan for HD again today. nephrology on board. monitor UOP. urology on board. re-start flomax/proscar. maintain joyner at this time 4. AG metabolic acidosis-due to uremia. lactic acid normal on presentation 5. microcytic anemia- no sign of bleeding. likely anemia of chronic disease component. will transfuse 2 unit PRBC with HD. iron studies pending 6. DM- A1c pending. iss, bgm. hold oral agents 7. Hypocalcemia- Corrected ca 6.9. received calcium gluconate. to be adjusted with HD today. 8. prolonged Qt- avoid QT prolonging medications. 9. hyperkalemia- resolved iwth HD 10. DVT ppx- SCD The care of this patient involved high complexity decision making to prevent further life threatening deterioration of the patient's condition and/or to evaluate & treat vital organ system(s) failure or risk of failure. critical care time 45 minutes
[2016-06-18] MEDS ORDERED: METOPROLOL TARTRATE 5 MG/5 ML VIAL IVPUSH PRN (18:43)
[2016-06-18 18:46] LABS: ALBUMIN 2.1 g/dl (3.4-5.0); BILIRUBIN,TOTAL 0.9 mg/dL (0.2-1.0); CALCIUM 7.1 mg/dL (8.5-10.1); CREATININE 5.5 mg/dL (0.7-1.3); TOT PROT 5.7 g/dl (6.4-8.2)
[2016-06-18] MEDS ORDERED: INSULIN (NOVOLOG) ASPART 100 UNITS/ML 10ML VIAL SQ ONE (18:54)
[2016-06-18] MEDS: METOPROLOL SUCCINATE 50 MG TAB.SR.24H (FP) PO SCH (19:00)
[2016-06-18] MEDS ORDERED: METOPROLOL SUCCINATE 50 MG TAB.SR.24H (FP) PO SCH ×3 (19:03→22:00)
[2016-06-18] MEDS ORDERED: ALBUTEROL SO4 6.7 GM HFA INHALER IH PRN (19:28)
[2016-06-18] MEDS: INSULIN DETEMIR 100 UNITS/ML MDV SQ SCH (21:54)
[2016-06-18] MEDS: CHLORHEXIDINE GLUCONATE 4% CLEANSER FOR DECOLONIZATION TP SCH (21:54)
[2016-06-19] MEDS ORDERED: Insulin (LOG) Aspart 100 UNITS/ML VIAL SQ ONE (00:15)
[2016-06-19] MEDS: PIPERACILLIN/TAZOB 2.25 GM 50 ML IVPB SCH (02:27)
[2016-06-19 06:00] LABS: MCH 24.8 pg (25.7-33.7); MCHC 33.1 g/dl (32.0-35.9); PLATELET COUNT 174 K/MM3 (134-434); RDW 16.4 % (11.9-15.9); WHITE BLOOD COUNT 16.3 K/mm3 (4.0-10.0)
[2016-06-19 06:06] LABS: SERUM IRON 48 ug/dL (38-169); TOTAL IRON BINDING CAPACITY 164 ug/dL (250-450); UIBC 116 ug/dL (111-343)
[2016-06-19] MEDS: INSULIN SLIDING SCALE (NOVOLOG) 1 VIAL SQ SCH ×4 (06:52→22:55)
[2016-06-19 07:06] LABS: MAGNESIUM 1.7 mg/dL (1.8-2.4)
[2016-06-19 07:09] LABS: CREATININE 6.3 mg/dL (0.7-1.3); PHOSPHOROUS 5.3 mg/dL (2.5-4.9)
--- NOTE | 2016-06-19 07:13 | PN ---
Progress Note, Physician Chief Complaint: ID ID follow up in the ICU for this 66 year old man IDDM followed usually by Dr Idris Salguero internal medicine Brought to ICU with severe sepsis Problems include chronic and now acute renal failure requiring dialysis. Currently alert in NAD feeling better Denies SOB chest pain fevers chills abd pain. Was hypothermic then febrile 101. Seen by Dr Nieves empiric Vancomycin and Pip tazobactam day 2 therapy - Current Medication List Current Medications: Active Medications Acetaminophen (Tylenol -) 650 mg PO Q4H PRN PRN Reason: FEVER OR PAIN Last Admin: 06/18/16 18:23 Dose: 650 mg Albuterol Sulfate (Ventolin Hfa Inhaler -) 2 puff IH Q6H PRN PRN Reason: SHORT OF BREATH/WHEEZING Amlodipine Besylate (Norvasc -) 10 mg PO DAILY [facility] Calcitriol (Rocaltrol -) 0.25 mcg PO DAILY [facility] Last Admin: 06/18/16 09:12 Dose: 0.25 mcg Calcium Acetate (Phoslo -) 1,334 mg PO TIDCM [facility] Last Admin: 06/18/16 16:54 Dose: 1,334 mg Calcium Carbonate (Calcium Carbonate -) 1,300 mg PO BID [facility] Last Admin: 06/18/16 21:54 Dose: 1,300 mg Chlorhexidine Gluconate (Hibiclens For Decolonization -) 1 applic TP HS [facility] Last Admin: 06/18/16 21:54 Dose: 1 applic Cholecalciferol (Vitamin D3 -) 2,000 unit PO DAILY [facility] Finasteride (Proscar -) 5 mg PO DAILY [facility] Last Admin: 06/18/16 10:58 Dose: 5 mg Heparin Sodium (Porcine) (Heparin -) 5,000 unit SQ BID [facility] Last Admin: 06/18/16 21:53 Dose: 5,000 unit Piperacillin Sod/Tazobactam Sod (Zosyn 2.25gm Ivpb (Pre-Docked)) 50 mls @ 100 mls/hr IVPB Q8H-IV AKOSUA PRN Reason: Protocol Last Admin: 06/19/16 02:27 Dose: 100 mls/hr Sodium Chloride (Normal Saline -) 1,000 mls @ 84 mls/hr IV ASDIR [facility] Last Admin: 06/18/16 11:53 Dose: 84 mls/hr Insulin Aspart (Novolog Vial Sliding Scale -) 1 vial SQ ACHS [facility] PRN Reason: Protocol Last Admin: 06/19/16 06:52 Dose: Not Given Insulin Detemir (Levemir Vial) 20 units SQ BID@0700,2200 [facility] Last Admin: 06/18/16 21:54 Dose: 20 unit Metoprolol Succinate (Toprol Xl -) 50 mg PO DAILY [facility] Last Admin: 06/18/16 19:00 Dose: 50 mg Metoprolol Tartrate (Lopressor Injection -) 5 mg IVPUSH Q4H PRN PRN Reason: HYPERTENSION Mupirocin (Bactroban Ointment (For Decolonization) -) 1 applic NS BID [facility] Stop: 06/22/16 21:59 Last Admin: 06/18/16 21:54 Dose: 1 applic Tamsulosin HCl (Flomax -) 0.4 mg PO DAILY@0830 [facility] Last Admin: 06/18/16 09:11 Dose: 0.4 mg - Objective Vital Signs: Vital Signs Temperature 98.9 F 06/19/16 06:00 Pulse Rate 95 H 06/19/16 06:00 Respiratory Rate 19 06/19/16 06:00 Blood Pressure 151/77 06/19/16 06:00 O2 Sat by Pulse Oximetry (%) 99 06/19/16 06:47 Constitutional: Yes: Well Nourished, No Distress Eyes: Yes: WNL, Conjunctiva Clear HENT: Yes: WNL, Atraumatic, Normocephalic Neck: Yes: WNL, Supple, Trachea Midline. No: Lymphadenopathy Cardiovascular: Yes: Regular Rate and Rhythm, S1, S2. No: Tachycardia, Murmur Respiratory: Yes: WNL, Regular, CTA Bilaterally, Rhonchi, Wheezes Gastrointestinal: Yes: WNL, Normal Bowel Sounds, Soft. No: Splenomegaly, Tenderness, Tenderness, Rebound Extremities: Yes: WNL. No: Cold, Cool, Cyanosis Edema: No Labs: CBC, BMP 06/19/16 05:15 INR, PTT INR 1.34 (0.82-1.09) H 06/17/16 04:30 Problem List - Problems (1) Renal failure Code(s): N19 - UNSPECIFIED KIDNEY FAILURE (2) Urinary retention Code(s): R33.9 - RETENTION OF URINE, UNSPECIFIED (3) Sepsis secondary to UTI Code(s): A41.9 - SEPSIS, UNSPECIFIED ORGANISM N39.0 - URINARY TRACT INFECTION, SITE NOT SPECIFIED (4) Diabetes 1.5, managed as type 1 Code(s): E13.9 - OTHER SPECIFIED DIABETES MELLITUS WITHOUT COMPLICATIONS Assessment/Plan Laboratory Tests 06/17/16 06/17/16 06/18/16 04:30 11:00 07:10 WBC Hgb Hct Plt Count INR 1.34 H ABG pH 7.35 ABG pCO2 at Pt Temp 25.1 L D ABG HCO3 13.3 L* BUN Creatinine Random Glucose Total Bilirubin AST ALT Ur Leukocyte Esterase 3+ H Urine WBC 2048 Random Vancomycin 06/18/16 06/18/16 06/19/16 12:30 17:30 05:15 WBC 16.3 H Hgb 7.7 L Hct 23.3 L Plt Count 174 D INR ABG pH ABG pCO2 at Pt Temp ABG HCO3 BUN 71 H D Creatinine 5.5 H D Random Glucose 410 H* D Total Bilirubin 0.9 D AST 35 D ALT 17 Ur Leukocyte Esterase Urine WBC Random Vancomycin 12.195 Microbiology 06/17/16 10:40 Urine - Urine Starks Urine Culture - Preliminary Group D Strep Or Entero Coccus 06/17/16 10:15 Blood - Shiley Catheter Blood Culture - Preliminary NO GROWTH OBTAINED AFTER 24 HOURS, INCUBATION TO CONTINUE FOR 4 DAYS. 06/17/16 10:15 Blood - Shiley Catheter Blood Culture - Preliminary NO GROWTH OBTAINED AFTER 24 HOURS, INCUBATION TO CONTINUE FOR 4 DAYS. Assessment Severe sepsis urinary tract source Enterococcal urinary infection greater then 100K CFU Blood culture negative thus far Urinary retension( mild hydro on sono) IDDM poorly controlled Acute and chronic renal failure COPD Metabolic acidosis Plan At this point we have a positive urine culture Does not need Zosyn Ampicillin should be fine adjusted for Renal failure 2 gram q12H administer post hemodialysis days 40 minutes spent reviewing examining and adjusting chart PT and cultures ICU care critical evaluation Franco FELIZ Hold on further vancomycin Await final sensitivities
[2016-06-19 07:28] LABS: ARTERIAL BLD GAS O2 SATURATION 98.2 % (90-98.9); ARTERIAL BLOOD GAS HCO3 23.7 meq/L (22-26); ARTERIAL BLOOD GAS PO2 92.7 mmHg (80-100); ARTERIAL BLOOD GAS pH 7.43 (7.35-7.45)
[2016-06-19 07:29] LABS: ALLENS TEST POSITIVE; ART PUNCT SITE RIGHT RADIAL; LPM/O2% 4 LPM; PT. ON O2? YES; TYPE OF O2 N/C
[2016-06-19 07:31] LABS: CALCIUM 6.6 mg/dL (8.5-10.1)
--- NOTE | 2016-06-19 07:40 | PN ---
Physical Exam: SUBJECTIVE: Patient seen and examined at bed side in ICU. patient feels much better less sob. good urine output via Joyner, non-bloody diarrhea overnight denies fevers, chills, cp, sob, n/v/d OBJECTIVE: Vital Signs Period Temp Pulse Resp BP Sys/Vogt Pulse Ox Last 24 Hr 97.4 F-101.3 F 91-125 14-19 134-169/56-91 98-99 GENERAL: The patient is awake, alert, and fully oriented, in no acute distress. HEAD: Normal with no signs of trauma. EYES: extraocular movements intact, sclera anicteric, conjunctiva clear. No ptosis. ENT: Ears normal, nares patent, oropharynx clear without exudates, moist mucous membranes. NECK: Trachea midline, full range of motion, supple. LUNGS: Breath sounds equal, clear to auscultation bilaterally, Left + diffused wheezes, no crackles, no accessory muscle use. HEART: Regular rate and rhythm, S1, S2, + murmur, no rub or gallop. ABDOMEN: Soft, nontender, nondistended, normoactive bowel sounds, no guarding, no rebound, no hepatosplenomegaly, no masses. joyner in place with yellow and clear urine EXTREMITIES: 2+ pulses, warm, well-perfused, no edema. NEUROLOGICAL: no gross neurological def, Normal speech, gait not observed. PSYCH: Normal mood, normal affect. SKIN: Warm, dry, pale, moist skin, R deep gluteal fold lesion Laboratory Results - last 24 hr 06/18/16 06/18/16 06/18/16 05:00 05:00 06:29 WBC RBC Hgb Hct MCV MCHC RDW Plt Count MPV Puncture Site ABG pH ABG pCO2 at Pt Temp ABG pO2 at Pt Temp ABG HCO3 ABG O2 Sat (Measured) ABG O2 Content ABG Base Excess Jelani Test O2 Delivery Device Oxygen Flow Rate PEEP Sodium Potassium Chloride Carbon Dioxide Anion Gap BUN Creatinine Creat Clearance w eGFR POC Glucometer [id number] Random Glucose Hemoglobin A1c % 15.9 H D Calcium Phosphorus 9.3 H* Magnesium Iron TIBC Iron Saturation Ferritin 1076.225 H Total Bilirubin AST ALT Alkaline Phosphatase Total Protein Albumin Random Vancomycin 06/18/16 06/18/16 06/18/16 11:10 12:30 12:30 WBC RBC Hgb Hct MCV MCHC RDW Plt Count MPV Puncture Site ABG pH ABG pCO2 at Pt Temp ABG pO2 at Pt Temp ABG HCO3 ABG O2 Sat (Measured) ABG O2 Content ABG Base Excess Jelani Test O2 Delivery Device Oxygen Flow Rate PEEP Sodium Potassium Chloride Carbon Dioxide Anion Gap BUN Creatinine Creat Clearance w eGFR POC Glucometer Random Glucose 299 H D Hemoglobin A1c % Calcium Phosphorus Magnesium Iron 48 TIBC 164 L Iron Saturation 29 Ferritin Total Bilirubin AST ALT Alkaline Phosphatase Total Protein Albumin Random Vancomycin 12.195 06/18/16 06/18/16 06/19/16 17:30 21:49 05:15 WBC 16.3 H RBC 3.10 L Hgb 7.7 L Hct 23.3 L MCV 75.0 L MCHC 33.1 RDW 16.4 H D Plt Count 174 D MPV 7.0 L Puncture Site ABG pH ABG pCO2 at Pt Temp ABG pO2 at Pt Temp ABG HCO3 ABG O2 Sat (Measured) ABG O2 Content ABG Base Excess Jelani Test O2 Delivery Device Oxygen Flow Rate PEEP Sodium 136 Potassium 3.5 Chloride 96 L Carbon Dioxide 20 L Anion Gap 20 H BUN 71 H D Creatinine 5.5 H D Creat Clearance w eGFR 10.45 POC Glucometer > 400 Random Glucose 410 H* D Hemoglobin A1c % Calcium 7.1 L D Phosphorus Magnesium Iron TIBC Iron Saturation Ferritin Total Bilirubin 0.9 D AST 35 D ALT 17 Alkaline Phosphatase 81 Total Protein 5.7 L D Albumin 2.1 L D Random Vancomycin 06/19/16 06/19/16 05:15 07:15 WBC RBC Hgb Hct MCV MCHC RDW Plt Count MPV Puncture Site Right radial ABG pH 7.43 ABG pCO2 at Pt Temp 36.5 D ABG pO2 at Pt Temp 92.7 D ABG HCO3 23.7 ABG O2 Sat (Measured) 98.2 ABG O2 Content 11.1 L ABG Base Excess 0.0 Jelani Test Positive O2 Delivery Device N/c Oxygen Flow Rate 4 lpm PEEP 0.0 Sodium 140 Potassium 3.1 L Chloride 102 Carbon Dioxide 26 D Anion Gap 12 BUN 82 H Creatinine 6.3 H Creat Clearance w eGFR POC Glucometer Random Glucose 93 D Hemoglobin A1c % Calcium 6.6 L* Phosphorus 5.3 H D Magnesium 1.7 L Iron TIBC Iron Saturation Ferritin Total Bilirubin AST ALT Alkaline Phosphatase Total Protein Albumin Random Vancomycin Active Medications Generic Name Dose Route Start Last Admin Trade Name Freq PRN Reason Stop Dose Admin Acetaminophen 650 mg 06/17/16 13:20 06/18/16 18:23 Tylenol - PO 650 mg Q4H PRN Administration FEVER OR PAIN Albuterol Sulfate 2 puff 06/18/16 19:28 Ventolin Hfa Inhaler - IH Q6H PRN SHORT OF BREATH/WHEEZING Amlodipine Besylate 10 mg 06/19/16 10:00 Norvasc - PO DAILY [facility] Calcitriol 0.25 mcg 06/17/16 16:45 06/18/16 09:12 Rocaltrol - PO 0.25 mcg DAILY [facility] Administration Calcium Acetate 1,334 mg 06/18/16 12:00 06/18/16 16:54 Phoslo - PO 1,334 mg TIDCM [facility] Administration Calcium Carbonate 1,300 mg 06/17/16 22:00 06/18/16 21:54 Calcium Carbonate - PO 1,300 mg BID [facility] Administration Chlorhexidine Gluconate 1 applic 06/17/16 22:00 06/18/16 21:54 Hibiclens For Decolonization - TP 1 applic HS [facility] Administration Cholecalciferol 2,000 unit 06/19/16 10:00 Vitamin D3 - PO DAILY [facility] Finasteride 5 mg 06/18/16 10:00 06/18/16 10:58 Proscar - PO 5 mg DAILY [facility] Administration Heparin Sodium (Porcine) 5,000 unit 06/17/16 22:00 06/18/16 21:53 Heparin - SQ 5,000 unit BID [facility] Administration Sodium Chloride 1,000 mls @ 84 mls/hr 06/18/16 11:49 06/18/16 11:53 Normal Saline - IV 84 mls/hr ASDIR [facility] Administration Ampicillin Sodium 2 gm/ Sodium 100 mls @ 200 mls/hr 06/19/16 10:00 Chloride IVPB BID [facility] Insulin Aspart 1 vial 06/17/16 16:30 06/19/16 06:52 Novolog Vial Sliding Scale - SQ Not [facility] Protocol Insulin Detemir 20 units 06/18/16 22:00 06/18/16 21:54 Levemir Vial SQ 20 unit BID@0700,2200 [facility] Administration Metoprolol Succinate 50 mg 06/18/16 19:45 06/18/16 19:00 Toprol Xl - PO 50 mg DAILY [facility] Administration Metoprolol Tartrate 5 mg 06/18/16 18:43 Lopressor Injection - IVPUSH Q4H PRN HYPERTENSION Mupirocin 1 applic 06/17/16 22:00 06/18/16 21:54 Bactroban Ointment (For Decolonization) - NS 06/22/16 21:59 1 applic BID [facility] Administration Tamsulosin HCl 0.4 mg 06/18/16 09:00 06/18/16 09:11 Flomax - PO 0.4 mg DAILY@0830 [facility] Administration ASSESSMENT/PLAN: This is a 66 year old Gentleman with PMhx of CKD (Cr was 3 in January), Hypertension, CAD, IDDM, BPH who presented to the ED with complaints of worsening SOB an lethargy and found to have BUN/Cr of 230/14.5, K of 7.6 and Bicarb of 4. Pt denies any history of CKD despite having elevated cr on or record. s/p shiley catheter placement and now receiving emergent HD for profound acidosis, electrolyte correction and respiratory distress. Sever Sepsis secondary to possible UTI and mild L hydronephrosis. : leukocytosis, tachepnic, tachycardic, -UA positive 2047 WBC -blood culture pending -urine culture- grew enteroccus vs. group D strep -cont zosyn -Vanco random level check in Am - continue Vanco -renal/bladder ultrasound -blood culture, urine culture -ID consult appreciated. Acute toxic/metabolic encephalopathy- 2/2 to uremia. improved cont to monitor mental status cont to monitor electrolytes Acute on Chronic Renal failure:(Stage 5) Cr Cl less then 10 s/p shiley catheter (day 2) s/p HD x2 Suggests intrinsic. renal disease. In light of history and clinical presentation need to r/o obstruction. - Improving metabolic acidosis from possible lactic acidosis and RTA Cont joyner, strict I and O Dose all meds for Cr Cl less then 10 Restart flomax/proscar per urolog f/u urine lytes, creatinine Elevated anion GAP: most likely secondary to uremia. -HD Metabolic acidosis with Resp Compensation : from possible lactic acidosis and RTA -On Ventimask 15L -BiPAP to assist in work of breathing -Maintain O2 Sat> 88% -second HD today Hypocalcemia- Corrected ca 6.9. received calcium gluconate to be adjusted with HD today. Start D5W with 11g Ca Gluconate at 50cc per hour after dialysis per renal. Repeat Ca level this evening, goal is > 7.5 per renal. Hyperkalemia- HD with low potassium bath per nephrology. monitor electrolyte awaiting repeat BMP BPH-Incomplete bladder emtying with BPH joyner catheter Urology consult monitor urine output. will consider restating flomax/proscar/bethenacol. EXOPHYTIC RIGHT KIDNEY LESION: incidental renal mass on last admission. - urology on case Hyperkalemia resolved s/p HD Renal Diet Avoid ELIOT/ARBs at this time follow BMP Prolonged Qt- avoid QT prolonging medications. Metabolic acidosis with Resp Compensation: Inc anion gap 2/2 CKD. ph 6.8 d/c biacrb gtt as now ph 7.5 repeat abg after HD and reaccess need for bicarb gtt. Anemia: Microcytic anemia, chronic in the setting of CKD. s/p 2 x PRBC HB 7--> 7.8 with inadequate response. - 2/2 CKD - 2 PRBC with HD today - Cont. monitor, transfuse if HGB < 7 -awaiting Iron studies from morning labs prior to transfusion ; including ferritin, TIBC, reticulocyte count , folate, B12: -f/u H/H -Cont monitor, transfuse if HGB < 7. no need at this time Thoracic aortic aneurysm -4.9cm on echo with reported trileaflet aortic valve from last admission . -cont toprol -needs close outpatient follow up -would require sizing of aorta on his CT chest Diabetes Mellitus type II- poorly controlled -HA1C 15.9 -Glucose checks [facility] -insulin SS ACHS COPD- bronchio dilators Bipap PRN supplemental O2 LUNG NODULES ON CT CHEST: monitor 3 to 6 months compare to prior study Prophylaxis - DVT: Heparin 5000 units SQ - GI: Not indicated dispo: continue ICU monitoring - monitor lytes Visit type - Emergency Visit Emergency Visit: Yes ED Registration Date: 06/17/16 Care time: The patient presented to the Emergency Department on the above date and was hospitalized for further evaluation of their emergent condition. - New Patient This patient is new to me today: No - Critical Care Critical Care patient: Yes Total Critical Care Time (in minutes): 45 Critical Care Statement: The care of this patient involved high complexity decision making to prevent further life threatening deterioration of the patient 's condition and/or to evalute & treat vital organ system(s) failure or risk of failure.
[2016-06-19] MEDS ORDERED: PT OWN MED DRAWER 7, Y5N ONE ×3 (07:55→20:57)
[2016-06-19] MEDS: CALCIUM ACETATE 667 MG CAPSULE (FP) PO SCH ×4 (08:22→17:28)
[2016-06-19] MEDS: TAMSULOSIN HCL 0.4 MG CAP.ER.24H (FP) PO SCH (08:23)
[2016-06-19] MEDS: INSULIN DETEMIR 100 UNITS/ML MDV SQ SCH ×2 (08:23→22:55)
[2016-06-19] MEDS: MUPIROCIN 2% TOPICAL OINTMENT FOR DECOLONIZATION NS SCH ×2 (09:28→21:06)
[2016-06-19] MEDS: CALCIUM CARBONATE 650 MG TABLET PO SCH ×2 (09:28→21:05)
[2016-06-19] MEDS: HEPARIN NA (PORCINE) 5,000 UNITS/ML 1ML VIAL SQ SCH ×2 (09:28→21:07)
[2016-06-19] MEDS: CALCITRIOL 0.25 MCG CAPSULE (FP) PO SCH (09:29)
[2016-06-19] MEDS: FINASTERIDE 5 MG TABLET (FP) PO SCH (09:29)
[2016-06-19] MEDS: METOPROLOL SUCCINATE 50 MG TAB.SR.24H (FP) PO SCH (09:30)
[2016-06-19] MEDS ORDERED: AMPICILLIN - 2 GM in SODIUM CHLORIDE 100 ML IVPB SCH (10:00)
[2016-06-19] MEDS ORDERED: CHOLECALCIFEROL (VITAMIN D3) 1,000 UNIT TABLET (FP) PO SCH (10:00)
[2016-06-19] MEDS ORDERED: amLODIPine BESYLATE 10 MG TABLET (FP) PO SCH (10:00)
[2016-06-19] MEDS ORDERED: MAGNESIUM SULF 50% (8.12 MEQ/2 ML-1 GM VIAL) ONE (10:26)
[2016-06-19 10:30] LABS: ALBUMIN 2.1 g/dl (3.4-5.0)
[2016-06-19] MEDS ORDERED: MAGNESIUM SULF 50% (8.12 MEQ/2 ML-1 GM VIAL) IVPB ONE (10:50)
[2016-06-19] MEDS ORDERED: POTASSIUM CHLORIDE TABS 20 MEQ TABLET.ER (FP) PO ONE (11:00)
[2016-06-19] MEDS: SODIUM CHLORIDE 1,000 ML IV SCH ×2 (11:04→12:32)
[2016-06-19] MEDS ORDERED: ALBUTEROL SO4 6.7 GM HFA INHALER IH PRN (11:32)
[2016-06-19] MEDS ORDERED: ACETAMINOPHEN 325 MG TABLET (FP) PO PRN (11:32)
--- NOTE | 2016-06-19 11:41 | PN ---
Progress Note (short form) - Note Progress Note: Renal Follow up for ISA on CKD Pt seen and examined in the ICU awake and alert had frequent loose BMs last night no sob or chest pain s/p 2nd HD yesterday + good urine output via joyner Vital Signs Temperature 98.3 F 06/19/16 10:00 Pulse Rate 91 H 06/19/16 10:45 Respiratory Rate 18 06/19/16 10:00 Blood Pressure 140/87 06/19/16 10:00 O2 Sat by Pulse Oximetry (%) 99 06/19/16 11:14 Intake & Output 06/16/16 06/17/16 06/18/16 06/19/16 23:59 23:59 23:59 23:59 Intake Total 1075 3600 1630 Output Total 1000 1650 550 Balance 75 1950 1080 Weight 214 lb 209 lb 14.4 oz 205 lb 14.4 oz Gen: NAD, awake and alert CVS: RRR, No M/R Lungs: CTA no rales Abd: soft NT/ND Ext: No edema, clubbing or cyanosis : no bladder distension, joyner in place with yellow urine CBC, BMP 06/19/16 05:15 06/19/16 05:15 Current Medications Acetaminophen (Tylenol -) 650 mg PO Q4H PRN PRN Reason: FEVER OR PAIN Albuterol Sulfate (Ventolin Hfa Inhaler -) 2 puff IH Q6H PRN PRN Reason: SHORT OF BREATH/WHEEZING Amlodipine Besylate (Norvasc -) 10 mg PO DAILY [facility] Calcitriol (Rocaltrol -) 0.25 mcg PO DAILY [facility] Calcium Acetate (Phoslo -) 1,334 mg PO TIDCM [facility] Calcium Carbonate (Calcium Carbonate -) 1,300 mg PO BID [facility] Cholecalciferol (Vitamin D3 -) 2,000 unit PO DAILY [facility] Finasteride (Proscar -) 5 mg PO DAILY [facility] Heparin Sodium (Porcine) (Heparin -) 5,000 unit SQ BID [facility] Ampicillin Sodium 2 gm/ Sodium (Chloride) 100 mls @ 200 mls/hr IVPB BID [facility] Sodium Chloride (Normal Saline -) 1,000 mls @ 84 mls/hr IV ASDIR [facility] Insulin Aspart (Novolog Vial Sliding Scale -) 1 vial SQ ACHS [facility] PRN Reason: Protocol Insulin Detemir (Levemir Vial) 20 units SQ BID@0700,2200 [facility] Metoprolol Succinate (Toprol Xl -) 50 mg PO DAILY [facility] Mupirocin (Bactroban Ointment (For Decolonization) -) 1 applic NS BID [facility] Stop: 06/22/16 21:59 Tamsulosin HCl (Flomax -) 0.4 mg PO DAILY@0830 [facility] A/P 66 year old Gentleman with PMhx of CKD (Cr was 3 in January), Hypertension, CAD , IDDM, BPH who presented to the ED with complaints of SOB and found to have BUN /Cr of 230/14.5, K of 7.6 and Bicarb of 4. #Acute Renal Failure in setting of CKD Etiology of ISA unclear FeUrea was 50% so less likely volume depletion Renal US showed hydro so much consider obstruction Check serologic studies (SHIRA, C3, C4, HIV, RPR, LDH, Haptoglobin, SPEP) #Hypocalcemia/Hyperphosphatemia Corrected Ca today is 8.4 continue Calcitriol, Phoslo PTH is pending #Anemia r/o MAHA Check LDH, Haptoglobin transfuse as per ICU protocol #Leukocytosis/Hypothermia Urine + for enterococcus Continue Abx as per ID Dominick Vanegas DO
--- NOTE | 2016-06-19 12:43 | PN ---
Teaching Attending Note Name of Resident: Emerson Ng ATTENDING PHYSICIAN STATEMENT I saw and evaluated the patient. I reviewed the resident's note and discussed the case with the resident. I agree with the resident's findings and plan as documented. SUBJECTIVE: Pt seen and examined in the ICU. Dialyzed yesterday, good urine output. Denies shortness of breath or chest pain. Febrile overnight. OBJECTIVE: Last Vital Signs Temp Pulse Resp BP Pulse Ox 98.3 F 91 H 18 140/87 99 06/19/16 10:00 06/19/16 10:45 06/19/16 10:00 06/19/16 10:00 06/19/16 11:14 Intake & Output 06/16/16 06/17/16 06/18/16 06/19/16 23:59 23:59 23:59 23:59 Intake Total 1075 3600 1970 Output Total 1000 1650 1050 Balance 75 1950 920 Weight 214 lb 209 lb 14.4 oz 205 lb 14.4 oz Gen: more comfortable Heart: RRR Lung: decreased breath sounds at the bases Abd: soft, nontender Ext: no edema CBC, BMP 06/19/16 05:15 06/19/16 05:15 Active Medications Acetaminophen (Tylenol -) 650 mg PO Q4H PRN PRN Reason: FEVER OR PAIN Albuterol Sulfate (Ventolin Hfa Inhaler -) 2 puff IH Q6H PRN PRN Reason: SHORT OF BREATH/WHEEZING Amlodipine Besylate (Norvasc -) 10 mg PO DAILY [facility] Calcitriol (Rocaltrol -) 0.25 mcg PO DAILY [facility] Calcium Acetate (Phoslo -) 1,334 mg PO TIDCM [facility] Last Admin: 06/19/16 12:32 Dose: Not Given Calcium Carbonate (Calcium Carbonate -) 1,300 mg PO BID [facility] Cholecalciferol (Vitamin D3 -) 2,000 unit PO DAILY [facility] Finasteride (Proscar -) 5 mg PO DAILY [facility] Heparin Sodium (Porcine) (Heparin -) 5,000 unit SQ BID [facility] Ampicillin Sodium 2 gm/ Sodium (Chloride) 100 mls @ 200 mls/hr IVPB BID [facility] Sodium Chloride (Normal Saline -) 1,000 mls @ 84 mls/hr IV ASDIR [facility] Last Admin: 06/19/16 12:32 Dose: Not Given Insulin Aspart (Novolog Vial Sliding Scale -) 1 vial SQ ACHS [facility] PRN Reason: Protocol Insulin Detemir (Levemir Vial) 20 units SQ BID@0700,2200 [facility] Metoprolol Succinate (Toprol Xl -) 50 mg PO DAILY [facility] Mupirocin (Bactroban Ointment (For Decolonization) -) 1 applic NS BID [facility] Stop: 06/22/16 21:59 Tamsulosin HCl (Flomax -) 0.4 mg PO DAILY@0830 [facility] ASSESSMENT AND PLAN: Acute on Chronic Renal Failure requiring emergent HD Hyperkalemia Profound Metabolic Acidosis improved UTI Acute Respiratory Distress requiring NIPPV resolving HTN DM BPH - HD per renal - monitor urine output, creatinine - IVF - replete lytes - d/c HD catheter if no further HD planned - continue antibiotics - BiPAP as needed to assist in work of breathing - DVT/GI prophylaxis - can monitor on floor
--- NOTE | 2016-06-19 14:16 | PN ---
Teaching Attending Note Name of Resident: Jesse Cerna ATTENDING PHYSICIAN STATEMENT I saw and evaluated the patient. I reviewed the resident's note and discussed the case with the resident. I agree with the resident's findings and plan as documented. SUBJECTIVE:currently asymptomatic. denies CP, SOb,fever, chills, N/V/C/D OBJECTIVE: Last Vital Signs Temp Pulse Resp BP Pulse Ox 98.3 F 102 H 18 155/89 97 06/19/16 10:00 06/19/16 12:00 06/19/16 12:00 06/19/16 12:00 06/19/16 13:26 Intake & Output 06/16/16 06/17/16 06/18/16 06/19/16 23:59 23:59 23:59 23:59 Intake Total 1075 3600 1970 Output Total 1000 1650 1050 Balance 75 1950 920 Weight 214 lb 209 lb 14.4 oz 205 lb 14.4 oz general NAD, A&O x3 CV S1 S2 RRR no murmur/rub/gallop Lungs CTA B/L no wheezing/rales/rhonchi ABdomen soft NT/ND extremities no pedal edema Microbiology 06/19/16 10:00 Clostridium difficile Antigen (JADYN) - Final Stool Clostridium difficile Toxin Assay - Final 06/17/16 10:40 Urine Culture - Preliminary Urine - Urine Joyner Enterococcus Faecalis 06/17/16 16:45 Gram Stain - Final Hip - Right Wound Culture - Preliminary Staphylococcus Coagulase Neg 06/17/16 10:15 Blood Culture - Preliminary Blood - Shiley Catheter NO GROWTH OBTAINED AFTER 48 HOURS, INCUBATION TO CONTINUE FOR 3 DAYS. 06/17/16 10:15 Blood Culture - Preliminary Blood - Shiley Catheter NO GROWTH OBTAINED AFTER 48 HOURS, INCUBATION TO CONTINUE FOR 3 DAYS. ASSESSMENT AND PLAN: 66yo M with PMH PMhx of CKD (Cr was 3 in January), Hypertension, CAD, IDDM, BPH who presented to the ED and was admitted for further evaluation of their emergent condition 1. Severe Sepsis due to UTI- UVc with E faecalis. abx switched to unasyn. ID on board. f/u C&S 2. Acute toxic/metabolic encephalopathy- due to uremia. s/p HD x2 sessions. clinically improved, 3. Acute on CKD- likely due to obstructive. hx of BPH. s/p HD session x2. no indication for HD at this time. spep pending. nephrology on board. monitor UOP. urology on board. on flomax/proscar. maintain joyner at this time 4. AG metabolic acidosis-due to uremia.resolved 5. microcytic anemia- no sign of bleeding. s/p 2 units PRBC but did not respond appropriately. had brown BM earlier reported by RN no signs of melena. will repeat CBC and txn if < 8. reports he had colonoscopy 7 years ago and reports it at as negative. iron studies pending 6. DM- A1c 15.9. titrate insulin to optimize control. iss, bgm. hold oral agents 7. Hypocalcemia- Corrected ca 8.1 s/p calcium gluconate. cont oral supplementation. 8. prolonged Qt- avoid QT prolonging medications. repeat EKG 9. hyperkalemia- now hypokalemic. will replete with oral supplementation 10. hypomagnesemia- Mg 2g 11. stage 2 pressure ulcer- offloading. wound care 12. DVT ppx- SCD 13. stable for medical floors. The care of this patient involved high complexity decision making to prevent further life threatening deterioration of the patient's condition and/or to evaluate & treat vital organ system(s) failure or risk of failure. critical care time 40 minutes
[2016-06-19 14:50] LABS: HIV 1 & 2 AB NEGATIVE; HIV 1 AGp24 NEGATIVE
[2016-06-19] MEDS ORDERED: LOPERAMIDE HCL 2 MG CAPSULE PO ONE (15:00)
[2016-06-19 15:19] LABS: MCH 25.2 pg (25.7-33.7); MCHC 33.5 g/dl (32.0-35.9); MEAN CELL VOLUME 75.2 fl (80-96); MEAN PLT VOLUME 7.1 fl (7.5-11.1); PLATELET COUNT 163 K/MM3 (134-434); RDW 15.9 % (11.9-15.9); WHITE BLOOD COUNT 15.8 K/mm3 (4.0-10.0)
--- NOTE | 2016-06-19 15:21 | PN ---
Physical Exam: SUBJECTIVE: Patient seen and examined at bedside in the ICU. He stated he has non-bloody diarrhea overnight, did not use BiPAP, no fever, chills. Further denies chest pain, abd pain, weakness, n/v. OBJECTIVE: Vital Signs Period Temp Pulse Resp BP Sys/Vogt Pulse Ox Last 24 Hr 98.3 F-101.3 F 91-125 14-19 140-169/72-89 97-99 GENERAL: Awake, alert, and fully oriented, on NC 2L EYES: sclera anicteric, conjunctiva clear. EARS, NOSE, THROAT: wearing NC LUNGS: Bilateral wheezing posteriorly still persist HEART: RRR, normal S1 and S2 without murmur, rub or gallop. ABDOMEN: Soft, obese, nontender, not distended, normoactive bowel sounds, no guarding, no rebound, no masses LOWER EXTREMITIES: warm, No calf tenderness. trace edema : joyner in place with yellow and clear urine, R gluteal fold lesion CBCD WBC 16.3 K/mm3 (4.0-10.0) H 06/19/16 05:15 RBC 3.10 M/mm3 (4.00-5.60) L 06/19/16 05:15 Hgb 7.7 GM/dL (11.7-16.9) L 06/19/16 05:15 Hct 23.3 % (35.4-49) L 06/19/16 05:15 MCV 75.0 fl (80-96) L 06/19/16 05:15 MCHC 33.1 g/dl (32.0-35.9) 06/19/16 05:15 RDW 16.4 % (11.9-15.9) H D 06/19/16 05:15 Plt Count 174 K/MM3 (134-434) D 06/19/16 05:15 MPV 7.0 fl (7.5-11.1) L 06/19/16 05:15 CMP Sodium 140 mmol/L (136-145) 06/19/16 05:15 Potassium 3.1 mmol/L (3.5-5.1) L 06/19/16 05:15 Chloride 102 mmol/L (98-107) 06/19/16 05:15 Carbon Dioxide 26 mmol/L (21-32) D 06/19/16 05:15 Anion Gap 12 (8-16) 06/19/16 05:15 BUN 82 mg/dL (7-18) H 06/19/16 05:15 Creatinine 6.3 mg/dL (0.7-1.3) H 06/19/16 05:15 Creat Clearance w eGFR 10.45 (>60) 06/18/16 17:30 Calcium 6.6 mg/dL (8.5-10.1) L* 06/19/16 05:15 Total Bilirubin 0.9 mg/dL (0.2-1.0) D 06/18/16 17:30 AST 35 U/L (15-37) D 06/18/16 17:30 ALT 17 U/L (12-78) 06/18/16 17:30 Alkaline Phosphatase 81 U/L (45-117) 06/18/16 17:30 Total Protein 5.7 g/dl (6.4-8.2) L D 06/18/16 17:30 Albumin 2.1 g/dl (3.4-5.0) L 06/19/16 05:15 Intake & Output 06/16/16 06/17/16 06/18/16 06/19/16 23:59 23:59 23:59 23:59 Intake Total 1075 3600 2370 Output Total 1000 1650 1450 Balance 75 1950 920 Weight 97.069 kg 95.209 kg 93.395 kg Active Medications Generic Name Dose Route Start Last Admin Trade Name Freq PRN Reason Stop Dose Admin Acetaminophen 650 mg 06/19/16 11:32 Tylenol - PO Q4H PRN FEVER OR PAIN Albuterol Sulfate 2 puff 06/19/16 11:32 Ventolin Hfa Inhaler - IH Q6H PRN SHORT OF BREATH/WHEEZING Amlodipine Besylate 10 mg 06/20/16 10:00 Norvasc - PO DAILY [facility] Calcitriol 0.25 mcg 06/20/16 10:00 Rocaltrol - PO DAILY [facility] Calcium Acetate 1,334 mg 06/19/16 12:00 06/19/16 12:32 Phoslo - PO Not Given TIDCM [facility] Calcium Carbonate 1,300 mg 06/19/16 22:00 Calcium Carbonate - PO BID [facility] Cholecalciferol 2,000 unit 06/20/16 10:00 Vitamin D3 - PO DAILY [facility] Finasteride 5 mg 06/20/16 10:00 Proscar - PO DAILY [facility] Heparin Sodium (Porcine) 5,000 unit 06/19/16 22:00 Heparin - SQ BID [facility] Ampicillin Sodium 2 gm/ Sodium 100 mls @ 200 mls/hr 06/19/16 22:00 Chloride IVPB BID [facility] Sodium Chloride 1,000 mls @ 84 mls/hr 06/19/16 11:32 06/19/16 12:32 Normal Saline - IV Not Given ASDIR [facility] Insulin Aspart 1 vial 06/19/16 16:30 Novolog Vial Sliding Scale - SQ ACHS [facility] Protocol Insulin Detemir 20 units 06/19/16 22:00 Levemir Vial SQ BID@0700,2200 [facility] Loperamide HCl 2 mg 06/19/16 15:00 Imodium - PO 06/19/16 15:01 ONCE ONE Metoprolol Succinate 50 mg 06/20/16 10:00 Toprol Xl - PO DAILY [facility] Mupirocin 1 applic 06/19/16 22:00 Bactroban Ointment (For Decolonization) - NS 06/22/16 21:59 BID [facility] Tamsulosin HCl 0.4 mg 06/20/16 08:30 Flomax - PO DAILY@0830 [facility] Microbiology 06/17/16 10:40 Urine - Urine Joyner Urine Culture - Preliminary Group D Strep Or Entero Coccus Imaging CXR on 06/18: no acute change CXR on 06/17: No acute change EKG: no acute pathology NSR Renal U/S on 06/17: gallstone, bilateral renal cysts, L hydroneph ASSESSMENT/PLAN: 65 yo M w/ h/o HTN, poorly controlled NIDDM, CKD stage 5 not on HD, recurrent UTI 2/2 chronic obstructive uropathy admitted to the ICU for ISA on CKD with acute respiratory distress. Renal: ISA on CKD (Stage 5) in the setting of diabetic nephropathy and chronic obstructive uropathy 2/2 BPH - s/p shiley catheter placement and dialysis yesterday and today - Improving metabolic acidosis from possible lactic acidosis and RTA - FeUrea = 44.5 suggests intrinsic renal disease - Cont. joyner, monitor I/O - Restart flomax/proscar per urology - Dialysis PRN - Dose all meds renally Respiratory: Hyperventilation 2/2 metabolic acidosis - On NC 2L * BiPAP PRN * Maintain O2 Sat> 88% - Improving on ABG - August d/c daily CXR ID: Sepsis 2/2 UTI - h/o recurrent UTI with negative urine cultures (at [facility]) * recently discharged on augmentin - (+) UA with 2048 WBC - Urine culture grew enteroccus - On ampicillin day 1 Cardio: HTN - Resumed home BP meds: Norvasc and Metoprolol - Lopressor PRN for SBP > 150 Heme: Microcytic anemia, chronic in the setting of CKD - 2/2 CKD - 2 PRBC with HD today - Cont. monitor, transfuse if HGB < 7 Endo: Poorly controlled DM2 - A1C 16 - on sliding scale - BGM : BPH with chronic urinary retention - Resumed proscar and flomax FEN - NS 84ml/hr for now - Mild Hypokalemia, cont. to monitor and give Phoslo and Calcitriol - Renal diet Prophylaxis - DVT: Heparin 5000 units SQ - GI: Not indicated Disposition - cont. to monitor in ICU Code status - Full code Visit type - Emergency Visit Emergency Visit: No - New Patient This patient is new to me today: No - Critical Care Critical Care patient: Yes Total Critical Care Time (in minutes): 45 Critical Care Statement: The care of this patient involved high complexity decision making to prevent further life threatening deterioration of the patient 's condition and/or to evalute & treat vital organ system(s) failure or risk of failure.
[2016-06-19] MEDS: AMPICILLIN - 2 GM in SODIUM CHLORIDE 100 ML IVPB SCH (21:04)
[2016-06-20 06:19] LABS: MCH 24.3 pg (25.7-33.7); MCHC 31.9 g/dl (32.0-35.9); MEAN CELL VOLUME 76.1 fl (80-96); MEAN PLT VOLUME 7.1 fl (7.5-11.1); PLATELET COUNT 162 K/MM3 (134-434); WHITE BLOOD COUNT 16.6 K/mm3 (4.0-10.0)
[2016-06-20 07:12] LABS: ALBUMIN 1.8 g/dl (3.4-5.0); BILIRUBIN,TOTAL 0.3 mg/dL (0.2-1.0); CREATININE 6.8 mg/dL (0.7-1.3); MAGNESIUM 2.1 mg/dL (1.8-2.4); PHOSPHOROUS 4.5 mg/dL (2.5-4.9); TOT PROT 5.4 g/dl (6.4-8.2)
[2016-06-20] MEDS: INSULIN SLIDING SCALE (NOVOLOG) 1 VIAL SQ SCH ×4 (07:12→21:40)
[2016-06-20] MEDS: INSULIN DETEMIR 100 UNITS/ML MDV SQ SCH ×2 (07:15→21:41)
[2016-06-20 07:31] LABS: ARTERIAL BLD GAS O2 SATURATION 93.7 % (90-98.9); ARTERIAL BLOOD GAS BASE EXCESS -1.5 meq/l (-2-2); ARTERIAL BLOOD GAS HCO3 22.4 meq/L (22-26); ARTERIAL BLOOD GAS PO2 62.7 mmHg (80-100); ARTERIAL BLOOD GAS pH 7.41 (7.35-7.45)
[2016-06-20 07:33] LABS: ALLENS TEST POSITIVE; ART PUNCT SITE RIGHT RADIAL; LPM/O2% 3 LPM; PT. ON O2? YES; TYPE OF O2 NASAL CANNULA
[2016-06-20 07:39] LABS: CALCIUM 6.4 mg/dL (8.5-10.1)
--- NOTE | 2016-06-20 07:41 | PN ---
Progress Note, Physician Chief Complaint: ID Uneventful night Switch to Ampicillin For enterococcal UTI with sepsis - Current Medication List Current Medications: Active Medications Acetaminophen (Tylenol -) 650 mg PO Q4H PRN PRN Reason: FEVER OR PAIN Albuterol Sulfate (Ventolin Hfa Inhaler -) 2 puff IH Q6H PRN PRN Reason: SHORT OF BREATH/WHEEZING Amlodipine Besylate (Norvasc -) 10 mg PO DAILY [facility] Calcitriol (Rocaltrol -) 0.25 mcg PO DAILY [facility] Calcium Acetate (Phoslo -) 1,334 mg PO TIDCM [facility] Last Admin: 06/19/16 17:28 Dose: 1,334 mg Calcium Carbonate (Calcium Carbonate -) 1,300 mg PO BID [facility] Last Admin: 06/19/16 21:05 Dose: 1,300 mg Cholecalciferol (Vitamin D3 -) 2,000 unit PO DAILY [facility] Finasteride (Proscar -) 5 mg PO DAILY [facility] Heparin Sodium (Porcine) (Heparin -) 5,000 unit SQ BID [facility] Last Admin: 06/19/16 21:07 Dose: 5,000 unit Ampicillin Sodium 2 gm/ Sodium (Chloride) 100 mls @ 200 mls/hr IVPB BID [facility] Last Admin: 06/19/16 21:04 Dose: 200 mls/hr Sodium Chloride (Normal Saline -) 1,000 mls @ 84 mls/hr IV ASDIR [facility] Last Admin: 06/19/16 12:32 Dose: Not Given Insulin Aspart (Novolog Vial Sliding Scale -) 1 vial SQ ACHS [facility] PRN Reason: Protocol Last Admin: 06/20/16 07:12 Dose: Not Given Insulin Detemir (Levemir Vial) 20 units SQ BID@0700,2200 [facility] Last Admin: 06/20/16 07:15 Dose: 20 units Metoprolol Succinate (Toprol Xl -) 50 mg PO DAILY [facility] Mupirocin (Bactroban Ointment (For Decolonization) -) 1 applic NS BID [facility] Stop: 06/22/16 21:59 Last Admin: 06/19/16 21:06 Dose: 1 applic Tamsulosin HCl (Flomax -) 0.4 mg PO DAILY@0830 [facility] - Objective Vital Signs: Vital Signs Temperature 99.0 F 06/20/16 06:39 Pulse Rate 88 06/20/16 06:39 Respiratory Rate 17 06/20/16 06:39 Blood Pressure 155/82 06/20/16 06:39 O2 Sat by Pulse Oximetry (%) 96 06/19/16 20:03 Constitutional: Yes: Well Nourished, No Distress HENT: Yes: WNL, Atraumatic Neck: Yes: WNL, Supple Cardiovascular: Yes: Regular Rate and Rhythm, S1, S2. No: Murmur Respiratory: Yes: WNL, Regular, CTA Bilaterally. No: Rales, Rhonchi Gastrointestinal: Yes: WNL, Normal Bowel Sounds, Soft. No: Tenderness, Tenderness, Rebound Extremities: No: Cold, Cool, Cyanosis Edema: No Integumentary: Yes: Other (@ wounds on right hip and gluteal fold) Labs: CBC, BMP 06/20/16 05:20 06/20/16 05:20 INR, PTT INR 1.34 (0.82-1.09) H 06/17/16 04:30 Problem List - Problems (1) Renal failure Code(s): N19 - UNSPECIFIED KIDNEY FAILURE (2) Urinary retention Code(s): R33.9 - RETENTION OF URINE, UNSPECIFIED (3) Sepsis secondary to UTI Code(s): A41.9 - SEPSIS, UNSPECIFIED ORGANISM N39.0 - URINARY TRACT INFECTION, SITE NOT SPECIFIED (4) Diabetes 1.5, managed as type 1 Code(s): E13.9 - OTHER SPECIFIED DIABETES MELLITUS WITHOUT COMPLICATIONS Assessment/Plan Microbiology 06/19/16 10:00 Stool Clostridium difficile Antigen (JADYN) - Final 06/19/16 10:00 Stool Clostridium difficile Toxin Assay - Final 06/17/16 16:45 Hip - Right Gram Stain - Final 06/17/16 10:40 Urine - Urine Starks Urine Culture - Final Enterococcus Faecalis 06/17/16 16:45 Hip - Right Wound Culture - Preliminary Staphylococcus Coagulase Neg 06/17/16 10:15 Blood - Shiley Catheter Blood Culture - Preliminary NO GROWTH OBTAINED AFTER 48 HOURS, INCUBATION TO CONTINUE FOR 3 DAYS. 06/17/16 10:15 Blood - Shiley Catheter Blood Culture - Preliminary NO GROWTH OBTAINED AFTER 48 HOURS, INCUBATION TO CONTINUE FOR 3 DAYS. Laboratory Tests 06/19/16 06/19/16 06/20/16 12:00 12:00 05:20 WBC 16.6 H Hgb 7.9 L Hct 24.6 L Plt Count 162 Creat Clearance w eGFR Random Vancomycin RPR Titer Nonreactive HIV 1&2 Antibody Screen Negative HIV P24 Antigen Negative 06/20/16 05:20 WBC Hgb Hct Plt Count Creat Clearance w eGFR 8.18 Random Vancomycin 16.667 RPR Titer HIV 1&2 Antibody Screen HIV P24 Antigen Assessment Urosepsis Enterococcus sensitive to Ampicillin Blood culsture negative IDDM COPD Acute renal failure post dialysis Metablolic acidosis from ARF and sepsis Wounds buttock hip Leukocytosis ? Plan Continue Ampicillin Obtain ESR CRP Get surgery to evaluated the wounds Discussed with housestaff 38 minutes spent evaluating Critical care time Franco FELIZ
[2016-06-20] MEDS ORDERED: PT OWN MED DRAWER 7, Y5N ONE ×3 (08:01→23:45)
[2016-06-20] MEDS: CALCIUM ACETATE 667 MG CAPSULE (FP) PO SCH ×3 (08:04→16:29)
[2016-06-20] MEDS ORDERED: TAMSULOSIN HCL 0.4 MG CAP.ER.24H (FP) PO SCH (08:30)
--- NOTE | 2016-06-20 08:53 | PN ---
Progress Note (short form) - Note Progress Note: afebrile on ampicillin for enterococcal uti w sepsis creat 6.8 today urine clear, output 1liter will obtain repeat renal sonogram Problem List - Problems (1) Urinary retention Code(s): R33.9 - RETENTION OF URINE, UNSPECIFIED
[2016-06-20] MEDS: AMPICILLIN - 2 GM in SODIUM CHLORIDE 100 ML IVPB SCH ×2 (09:03→21:00)
[2016-06-20] MEDS: MUPIROCIN 2% TOPICAL OINTMENT FOR DECOLONIZATION NS SCH ×2 (09:13→21:02)
[2016-06-20] MEDS: HEPARIN NA (PORCINE) 5,000 UNITS/ML 1ML VIAL SQ SCH ×2 (09:14→21:00)
[2016-06-20] MEDS ORDERED: CHOLECALCIFEROL (VITAMIN D3) 1,000 UNIT TABLET (FP) PO SCH (10:00)
[2016-06-20] MEDS ORDERED: FINASTERIDE 5 MG TABLET (FP) PO SCH (10:00)
[2016-06-20] MEDS ORDERED: METOPROLOL SUCCINATE 50 MG TAB.SR.24H (FP) PO SCH (10:00)
[2016-06-20] MEDS ORDERED: CALCITRIOL 0.25 MCG CAPSULE (FP) PO SCH (10:00)
[2016-06-20] MEDS ORDERED: amLODIPine BESYLATE 10 MG TABLET (FP) PO SCH (10:00)
--- NOTE | 2016-06-20 10:33 | PN ---
Progress Note (short form) - Note Progress Note: Renal Follow up for SIA on CKD Pt seen and examined in the ICU awake and alert no acute complaints no sob or chest pain good urine output via joyner on IVF BP stable Vital Signs Temperature 99.0 F 06/20/16 06:39 Pulse Rate 98 H 06/20/16 10:07 Respiratory Rate 18 06/20/16 10:07 Blood Pressure 185/94 06/20/16 10:07 O2 Sat by Pulse Oximetry (%) 94 L 06/20/16 07:54 Intake & Output 06/17/16 06/18/16 06/19/16 06/20/16 23:59 23:59 23:59 23:59 Intake Total 1075 3600 3590 1008 Output Total 1000 1650 2150 1000 Balance 75 1950 1440 8 Weight 214 lb 209 lb 14.4 oz 205 lb 14.4 oz 215 lb 11.2 oz Gen: NAD, awake and alert CVS: RRR, No M/R Lungs: CTA no rales Abd: soft NT/ND Ext: No edema, clubbing or cyanosis : no bladder distension, joyner in place with yellow urine CBC, BMP 06/20/16 05:20 06/20/16 05:20 Laboratory Tests 06/19/16 06/20/16 15:00 05:20 Calcium 6.4 L* Phosphorus 4.5 Magnesium 2.1 D LD Total 463 H Albumin 1.8 L Current Medications Acetaminophen (Tylenol -) 650 mg PO Q4H PRN PRN Reason: FEVER OR PAIN Albuterol Sulfate (Ventolin Hfa Inhaler -) 2 puff IH Q6H PRN PRN Reason: SHORT OF BREATH/WHEEZING Amlodipine Besylate (Norvasc -) 10 mg PO DAILY [facility] Last Admin: 06/20/16 09:43 Dose: 10 mg Calcitriol (Rocaltrol -) 0.25 mcg PO DAILY [facility] Last Admin: 06/20/16 09:43 Dose: 0.25 mcg Calcium Acetate (Phoslo -) 1,334 mg PO TIDCM [facility] Last Admin: 06/20/16 08:04 Dose: 1,334 mg Calcium Carbonate (Calcium Carbonate -) 1,300 mg PO BID [facility] Last Admin: 06/19/16 21:05 Dose: 1,300 mg Cholecalciferol (Vitamin D3 -) 2,000 unit PO DAILY [facility] Last Admin: 06/20/16 09:43 Dose: 2,000 unit Finasteride (Proscar -) 5 mg PO DAILY [facility] Heparin Sodium (Porcine) (Heparin -) 5,000 unit SQ BID [facility] Last Admin: 06/20/16 09:14 Dose: 5,000 unit Ampicillin Sodium 2 gm/ Sodium (Chloride) 100 mls @ 200 mls/hr IVPB BID [facility] Last Admin: 06/20/16 09:03 Dose: 200 mls/hr Sodium Chloride (Normal Saline -) 1,000 mls @ 84 mls/hr IV ASDIR [facility] Last Admin: 06/19/16 12:32 Dose: Not Given Insulin Aspart (Novolog Vial Sliding Scale -) 1 vial SQ ACHS [facility] PRN Reason: Protocol Last Admin: 06/20/16 07:12 Dose: Not Given Insulin Detemir (Levemir Vial) 20 units SQ BID@0700,2200 [facility] Last Admin: 06/20/16 07:15 Dose: 20 units Metoprolol Succinate (Toprol Xl -) 50 mg PO DAILY [facility] Last Admin: 06/20/16 09:14 Dose: 50 mg Mupirocin (Bactroban Ointment (For Decolonization) -) 1 applic NS BID [facility] Stop: 06/22/16 21:59 Last Admin: 06/20/16 09:13 Dose: 1 applic Tamsulosin HCl (Flomax -) 0.4 mg PO DAILY@0830 [facility] Last Admin: 06/20/16 08:04 Dose: 0.4 mg A/P 66 year old Gentleman with PMhx of CKD (Cr was 3 in January), Hypertension, CAD , IDDM, BPH who presented to the ED with complaints of SOB and found to have BUN /Cr of 230/14.5, K of 7.6 and Bicarb of 4. #Acute Renal Failure in setting of CKD Etiology of ISA on CKD: ATN from sepsis +/- obstructive uropathy vs. intrinisc renal injury (GN, microangiopathy, vasculitis) Pt is non-oliguric BUN/Cr w/o improvement off dialysis HIV negative, Hepatitis Negative, RPR negative C3, C4, CH50, SHIRA, SPEP pending Will also check ANCA's No plan for dialysis today, if BUN/Cr w/o improvement by tomorrow morning will plan to resume dialysis tomorrow Dose all meds for Cr Cl less then 10 repeat imaging of the kidney as per Urology #Hypocalcemia/Hyperphosphatemia corrected Ca is WNL Phos and Mg levels improved PTH pending continue calcium acetate, calcitriol, Vit D3 d/c calcium carbonate Trend daily #Anemia r/o MAHA LDH elevated, T. Bili is normal, Haptoglobin is pending transfuse as per ICU protocol conider Heme eval fi hatoglobin is low #Leukocytosis/Hypothermia/Sepsis Urine + for enterococcus Continue Abx as per NATHALIA Vanegas DO
--- NOTE | 2016-06-20 10:59 | EKG ---
Test Reason : Blood Pressure : / mmHG Vent. Rate : 087 BPM Atrial Rate : 087 BPM P-R Int : 218 ms QRS Dur : 152 ms QT Int : 444 ms P-R-T Axes : 070 083 056 degrees QTc Int : 534 ms POOR DATA QUALITY, INTERPRETATION MAY BE ADVERSELY AFFECTED SINUS RHYTHM WITH 1ST DEGREE A-V BLOCK WITH PREMATURE ATRIAL COMPLEXES NON-SPECIFIC INTRA-VENTRICULAR CONDUCTION BLOCK ABNORMAL ECG WHEN COMPARED WITH ECG OF 17-JUN-2016 04:02, PREMATURE ATRIAL COMPLEXES ARE NOW PRESENT NONSPECIFIC T WAVE ABNORMALITY NOW EVIDENT IN INFERIOR LEADS Confirmed by ZULEMA STEIN MD ([id number]) on 06/20/2016 10:58:54 AM Referred By: Confirmed By:ZULEMA STEIN MD
[2016-06-20] MEDS: CALCIUM CARBONATE 650 MG TABLET PO SCH (11:03)
--- NOTE | 2016-06-20 11:56 | PN ---
Teaching Attending Note Name of Resident: Emerson Ng ATTENDING PHYSICIAN STATEMENT I saw and evaluated the patient. I reviewed the resident's note and discussed the case with the resident. I agree with the resident's findings and plan as documented. SUBJECTIVE: Pt seen and examined in the ICU. Denies shortness of breath or chest pain. No fevers or chills. OBJECTIVE: Last Vital Signs Temp Pulse Resp BP Pulse Ox 98.6 F 98 H 18 185/94 94 L 06/20/16 10:51 06/20/16 10:07 06/20/16 10:07 06/20/16 10:07 06/20/16 10:05 Intake & Output 06/17/16 06/18/16 06/19/16 06/20/16 23:59 23:59 23:59 23:59 Intake Total 1075 3600 3590 1008 Output Total 1000 1650 2150 1700 Balance 75 1950 1440 -692 Weight 214 lb 209 lb 14.4 oz 205 lb 14.4 oz 215 lb 11.2 oz Gen: breathing nonlabored Heart: RRR Lung: decreased breath sounds at the bases Abd: soft, nontender Ext: no edema CBC, BMP 06/20/16 05:20 06/20/16 05:20 Active Medications Acetaminophen (Tylenol -) 650 mg PO Q4H PRN PRN Reason: FEVER OR PAIN Albuterol Sulfate (Ventolin Hfa Inhaler -) 2 puff IH Q6H PRN PRN Reason: SHORT OF BREATH/WHEEZING Amlodipine Besylate (Norvasc -) 10 mg PO DAILY [facility] Last Admin: 06/20/16 09:43 Dose: 10 mg Calcitriol (Rocaltrol -) 0.25 mcg PO DAILY [facility] Last Admin: 06/20/16 09:43 Dose: 0.25 mcg Calcium Acetate (Phoslo -) 1,334 mg PO TIDCM [facility] Last Admin: 06/20/16 11:14 Dose: 1,334 mg Calcium Carbonate (Calcium Carbonate -) 1,300 mg PO BID [facility] Last Admin: 06/20/16 11:03 Dose: 1,300 mg Cholecalciferol (Vitamin D3 -) 2,000 unit PO DAILY [facility] Last Admin: 06/20/16 09:43 Dose: 2,000 unit Finasteride (Proscar -) 5 mg PO DAILY [facility] Last Admin: 06/20/16 11:03 Dose: 5 mg Heparin Sodium (Porcine) (Heparin -) 5,000 unit SQ BID [facility] Last Admin: 06/20/16 09:14 Dose: 5,000 unit Ampicillin Sodium 2 gm/ Sodium (Chloride) 100 mls @ 200 mls/hr IVPB BID [facility] Last Admin: 06/20/16 09:03 Dose: 200 mls/hr Sodium Chloride (Normal Saline -) 1,000 mls @ 84 mls/hr IV ASDIR [facility] Last Admin: 06/19/16 12:32 Dose: Not Given Insulin Aspart (Novolog Vial Sliding Scale -) 1 vial SQ ACHS [facility] PRN Reason: Protocol Last Admin: 06/20/16 11:13 Dose: Not Given Insulin Detemir (Levemir Vial) 20 units SQ BID@0700,2200 [facility] Last Admin: 06/20/16 07:15 Dose: 20 units Metoprolol Succinate (Toprol Xl -) 50 mg PO DAILY [facility] Last Admin: 06/20/16 09:14 Dose: 50 mg Mupirocin (Bactroban Ointment (For Decolonization) -) 1 applic NS BID [facility] Stop: 06/22/16 21:59 Last Admin: 06/20/16 09:13 Dose: 1 applic Tamsulosin HCl (Flomax -) 0.4 mg PO DAILY@0830 [facility] Last Admin: 06/20/16 08:04 Dose: 0.4 mg ASSESSMENT AND PLAN: Acute on Chronic Renal Failure requiring emergent HD Hyperkalemia resolved Profound Metabolic Acidosis improved UTI Acute Respiratory Distress requiring NIPPV resolving HTN DM BPH - HD per renal - monitor urine output, creatinine - continue IVF - replete lytes - d/c HD catheter if no further HD planned - continue antibiotics - BiPAP as needed to assist in work of breathing - DVT/GI prophylaxis - can monitor on floor
--- NOTE | 2016-06-20 12:09 | PN ---
Physical Exam: SUBJECTIVE: Patient seen and examined at bedside in the ICU. He stated he felt fine overnight, did not use BiPAP, good appetite, bowel movement and urinary output. OBJECTIVE: Vital Signs Period Temp Pulse Resp BP Sys/Vogt Pulse Ox Last 24 Hr 98.6 F-99.6 F 87-105 13-18 155-185/72-94 90-98 GENERAL: Awake, alert, and fully oriented EYES: sclera anicteric, conjunctiva clear. EARS, NOSE, THROAT: wearing NC LUNGS: Bilateral wheezing posteriorly much improved HEART: RRR, normal S1 and S2 without murmur, rub or gallop. ABDOMEN: Soft, obese, nontender, not distended, normoactive bowel sounds, no guarding, no rebound, no masses LOWER EXTREMITIES: warm, No calf tenderness. trace edema : joyner in place with yellow and clear urine CBCD WBC 16.6 K/mm3 (4.0-10.0) H 06/20/16 05:20 RBC 3.24 M/mm3 (4.00-5.60) L 06/20/16 05:20 Hgb 7.9 GM/dL (11.7-16.9) L 06/20/16 05:20 Hct 24.6 % (35.4-49) L 06/20/16 05:20 MCV 76.1 fl (80-96) L 06/20/16 05:20 MCHC 31.9 g/dl (32.0-35.9) L 06/20/16 05:20 RDW 16.0 % (11.9-15.9) H 06/20/16 05:20 Plt Count 162 K/MM3 (134-434) 06/20/16 05:20 MPV 7.1 fl (7.5-11.1) L 06/20/16 05:20 CMP Sodium 140 mmol/L (136-145) 06/20/16 05:20 Potassium 3.2 mmol/L (3.5-5.1) L 06/20/16 05:20 Chloride 103 mmol/L (98-107) 06/20/16 05:20 Carbon Dioxide 23 mmol/L (21-32) 06/20/16 05:20 Anion Gap 14 (8-16) 06/20/16 05:20 BUN 78 mg/dL (7-18) H 06/20/16 05:20 Creatinine 6.8 mg/dL (0.7-1.3) H 06/20/16 05:20 Creat Clearance w eGFR 8.18 (>60) 06/20/16 05:20 Calcium 6.4 mg/dL (8.5-10.1) L* 06/20/16 05:20 Total Bilirubin 0.3 mg/dL (0.2-1.0) D 06/20/16 05:20 AST 14 U/L (15-37) L D 06/20/16 05:20 ALT 10 U/L (12-78) L D 06/20/16 05:20 Alkaline Phosphatase 75 U/L (45-117) 06/20/16 05:20 Total Protein 5.4 g/dl (6.4-8.2) L 06/20/16 05:20 Albumin 1.8 g/dl (3.4-5.0) L 06/20/16 05:20 Intake & Output 06/17/16 06/18/16 06/19/16 06/20/16 23:59 23:59 23:59 23:59 Intake Total 1075 3600 3590 1008 Output Total 1000 1650 2150 1700 Balance 75 1950 1440 -692 Weight 97.069 kg 95.209 kg 93.395 kg 97.84 kg Active Medications Generic Name Dose Route Start Last Admin Trade Name Freq PRN Reason Stop Dose Admin Acetaminophen 650 mg 06/19/16 11:32 Tylenol - PO Q4H PRN FEVER OR PAIN Albuterol Sulfate 2 puff 06/19/16 11:32 Ventolin Hfa Inhaler - IH Q6H PRN SHORT OF BREATH/WHEEZING Amlodipine Besylate 10 mg 06/20/16 10:00 06/20/16 09:43 Norvasc - PO 10 mg DAILY AKOSUA Administration Calcitriol 0.25 mcg 06/20/16 10:00 06/20/16 09:43 Rocaltrol - PO 0.25 mcg DAILY AKOSUA Administration Calcium Acetate 1,334 mg 06/19/16 12:00 06/20/16 11:14 Phoslo - PO 1,334 mg TIDCM AKOSUA Administration Calcium Carbonate 1,300 mg 06/19/16 22:00 06/20/16 11:03 Calcium Carbonate - PO 1,300 mg BID [facility] Administration Cholecalciferol 2,000 unit 06/20/16 10:00 06/20/16 09:43 Vitamin D3 - PO 2,000 unit DAILY AKOSUA Administration Finasteride 5 mg 06/20/16 10:00 06/20/16 11:03 Proscar - PO 5 mg DAILY AKOSUA Administration Heparin Sodium (Porcine) 5,000 unit 06/19/16 22:00 06/20/16 09:14 Heparin - SQ 5,000 unit BID AKOSUA Administration Ampicillin Sodium 2 gm/ Sodium 100 mls @ 200 mls/hr 06/19/16 22:00 06/20/16 09: 03 Chloride IVPB 200 mls/hr BID AKOSUA Administration Sodium Chloride 1,000 mls @ 84 mls/hr 06/19/16 11:32 06/19/16 12:32 Normal Saline - IV Not Given ASDIR [facility] Insulin Aspart 1 vial 06/19/16 16:30 06/20/16 11:13 Novolog Vial Sliding Scale - SQ Not Given ACHS [facility] Protocol Insulin Detemir 20 units 06/19/16 22:00 06/20/16 07:15 Levemir Vial SQ 20 units BID@0700,2200 [facility] Administration Metoprolol Succinate 50 mg 06/20/16 10:00 06/20/16 09:14 Toprol Xl - PO 50 mg DAILY [facility] Administration Mupirocin 1 applic 06/19/16 22:00 06/20/16 09:13 Bactroban Ointment (For Decolonization) - NS 06/22/16 21:59 1 applic BID [facility] Administration Tamsulosin HCl 0.4 mg 06/20/16 08:30 06/20/16 08:04 Flomax - PO 0.4 mg DAILY@0830 [facility] Administration Microbiology 06/17/16 10:15 Blood - Shiley Catheter Blood Culture - Preliminary NO GROWTH OBTAINED AFTER 72 HOURS, INCUBATION TO CONTINUE FOR 2 DAYS. 06/17/16 10:15 Blood - Shiley Catheter Blood Culture - Preliminary NO GROWTH OBTAINED AFTER 72 HOURS, INCUBATION TO CONTINUE FOR 2 DAYS. 06/17/16 10:40 Urine - Urine Joyner Urine Culture - Final Enterococcus Faecalis 06/19/16 10:00 Stool Clostridium difficile Antigen (JADYN) - Final 06/19/16 10:00 Stool Clostridium difficile Toxin Assay - Final 06/17/16 16:45 Hip - Right Gram Stain - Final 06/17/16 16:45 Hip - Right Wound Culture - Preliminary Staphylococcus Coagulase Neg Imaging CXR on 06/20: new congestive change CXR on 06/18: no acute change CXR on 06/17: No acute change EKG: no acute pathology NSR Renal U/S on 06/17: gallstone, bilateral renal cysts, L hydroneph ASSESSMENT/PLAN: 65 yo M w/ h/o HTN, poorly controlled NIDDM, CKD stage 5 not on HD, recurrent UTI 2/2 chronic obstructive uropathy admitted to the ICU for ISA on CKD with acute respiratory distress. Renal: ISA on CKD (Stage 5) in the setting of diabetic nephropathy and chronic obstructive uropathy 2/2 BPH - s/p shiley catheter and HD x 2 * will d/c the catheter tomorrow - FeUrea = 44.5 suggests intrinsic renal disease - Cont. joyner, monitor I/O - Cont. flomax/proscar per urology - Dialysis PRN - Dose all meds renally Respiratory: Hyperventilation 2/2 metabolic acidosis - Sat. well on room air * BiPAP and NC 2L PRN * Maintain O2 Sat> 88% - New change on CXR, follow daily CXR ID: Sepsis 2/2 UTI - h/o recurrent UTI with negative urine cultures (at [facility]) * recently discharged on augmentin - (+) UA with 2048 WBC - Urine culture grew enteroccus - Surgery consult for R gluteal wound - On ampicillin day 2 Cardio: HTN - Resumed home BP meds: Norvasc and Metoprolol - Lopressor PRN for SBP > 150 - Avoid hydralazine in CKD Heme: Microcytic anemia, chronic in the setting of CKD - 2/2 CKD - H/H stable - Cont. monitor, transfuse if HGB < 7 Endo: Poorly controlled DM2 - A1C 16 - on sliding scale - BGM : BPH with chronic urinary retention - Resumed proscar and flomax FEN - NS 84ml/hr for now - Mild Hypokalemia, cont. to monitor and give Phoslo and Calcitriol - Renal diet Prophylaxis - DVT: Heparin 5000 units SQ - GI: Not indicated Disposition - Awaiting bed available on Med-Surg Code status - Full code Visit type - Emergency Visit Emergency Visit: No - New Patient This patient is new to me today: No - Critical Care Critical Care patient: Yes Total Critical Care Time (in minutes): 35 Critical Care Statement: The care of this patient involved high complexity decision making to prevent further life threatening deterioration of the patient 's condition and/or to evalute & treat vital organ system(s) failure or risk of failure.
[2016-06-20] MEDS: SODIUM CHLORIDE 1,000 ML IV SCH (13:27)
--- NOTE | 2016-06-20 14:54 | PN ---
Physical Exam: SUBJECTIVE: Patient seen and examined at bed side in ICU. patient not wanting to answer question and refused me to examine his gluteal wound. patient feels much better less sob. good urine output via Jyoner, non-bloody diarrhea overnight denies fevers, chills, cp, sob, n/v/d OBJECTIVE: Vital Signs Period Temp Pulse Resp BP Sys/Vogt Pulse Ox Last 24 Hr 98.6 F-99.6 F 87-120 13-18 155-185/74-94 90-98 GENERAL: The patient is awake, alert, and fully oriented, in no acute distress. HEAD: Normal with no signs of trauma. EYES: extraocular movements intact, sclera anicteric, conjunctiva clear. No ptosis. ENT: Ears normal, nares patent, oropharynx clear without exudates, moist mucous membranes. NECK: Trachea midline, full range of motion, supple. LUNGS: Breath sounds equal, clear to auscultation bilaterally, Left + diffused wheezes, no crackles, no accessory muscle use. HEART: Regular rate and rhythm, S1, S2, + murmur, no rub or gallop. ABDOMEN: Soft, nontender, nondistended, normoactive bowel sounds, no guarding, no rebound, no hepatosplenomegaly, no masses. joyner in place with yellow and clear urine EXTREMITIES: 2+ pulses, warm, well-perfused, no edema. NEUROLOGICAL: no gross neurological def, Normal speech, gait not observed. PSYCH: Normal mood, normal affect. SKIN: Warm, dry, pale, moist skin, R deep gluteal fold lesion Laboratory Results - last 24 hr 06/18/16 06/19/16 06/19/16 05:00 15:00 15:00 WBC 15.8 H RBC 3.08 L Hgb 7.8 L Hct 23.2 L MCV 75.2 L MCHC 33.5 RDW 15.9 Plt Count 163 MPV 7.1 L Puncture Site ABG pH ABG pCO2 at Pt Temp ABG pO2 at Pt Temp ABG HCO3 ABG O2 Sat (Measured) ABG O2 Content ABG Base Excess Jelani Test O2 Delivery Device Oxygen Flow Rate PEEP Sodium Potassium Chloride Carbon Dioxide Anion Gap BUN Creatinine Creat Clearance w eGFR POC Glucometer Random Glucose Calcium Phosphorus Magnesium Total Bilirubin AST ALT Alkaline Phosphatase LD Total 463 H Total Protein Albumin PTH Intact 173 H Random Vancomycin 06/20/16 06/20/16 06/20/16 05:20 05:20 07:25 WBC 16.6 H RBC 3.24 L Hgb 7.9 L Hct 24.6 L MCV 76.1 L MCHC 31.9 L RDW 16.0 H Plt Count 162 MPV 7.1 L Puncture Site Right radial ABG pH 7.41 ABG pCO2 at Pt Temp 36.2 ABG pO2 at Pt Temp 62.7 L D ABG HCO3 22.4 ABG O2 Sat (Measured) 93.7 ABG O2 Content 10.4 L ABG Base Excess -1.5 Jelani Test Positive O2 Delivery Device Nasal cannula Oxygen Flow Rate 3 lpm PEEP 0.0 Sodium 140 Potassium 3.2 L Chloride 103 Carbon Dioxide 23 Anion Gap 14 BUN 78 H Creatinine 6.8 H Creat Clearance w eGFR 8.18 POC Glucometer Random Glucose 122 H D Calcium 6.4 L* Phosphorus 4.5 Magnesium 2.1 D Total Bilirubin 0.3 D AST 14 L D ALT 10 L D Alkaline Phosphatase 75 LD Total Total Protein 5.4 L Albumin 1.8 L PTH Intact Random Vancomycin 16.667 06/20/16 11:10 WBC RBC Hgb Hct MCV MCHC RDW Plt Count MPV Puncture Site ABG pH ABG pCO2 at Pt Temp ABG pO2 at Pt Temp ABG HCO3 ABG O2 Sat (Measured) ABG O2 Content ABG Base Excess Jelani Test O2 Delivery Device Oxygen Flow Rate PEEP Sodium Potassium Chloride Carbon Dioxide Anion Gap BUN Creatinine Creat Clearance w eGFR POC Glucometer [phone] Random Glucose Calcium Phosphorus Magnesium Total Bilirubin AST ALT Alkaline Phosphatase LD Total Total Protein Albumin PTH Intact Random Vancomycin Active Medications Generic Name Dose Route Start Last Admin Trade Name Freq PRN Reason Stop Dose Admin Acetaminophen 650 mg 06/19/16 11:32 Tylenol - PO Q4H PRN FEVER OR PAIN Albuterol Sulfate 2 puff 06/19/16 11:32 Ventolin Hfa Inhaler - IH Q6H PRN SHORT OF BREATH/WHEEZING Amlodipine Besylate 10 mg 06/20/16 10:00 06/20/16 09:43 Norvasc - PO 10 mg DAILY AKOSUA Administration Calcitriol 0.25 mcg 06/20/16 10:00 06/20/16 09:43 Rocaltrol - PO 0.25 mcg DAILY AKOSUA Administration Calcium Acetate 1,334 mg 03/08/17 12:00 06/20/16 11:14 Phoslo - PO 1,334 mg TIDCM AKOSUA Administration Cholecalciferol 2,000 unit 06/20/16 10:00 06/20/16 09:43 Vitamin D3 - PO 2,000 unit DAILY AKOSUA Administration Finasteride 5 mg 06/20/16 10:00 06/20/16 11:03 Proscar - PO 5 mg DAILY AKOSUA Administration Heparin Sodium (Porcine) 5,000 unit 06/19/16 22:00 06/20/16 09:14 Heparin - SQ 5,000 unit BID AKOSUA Administration Ampicillin Sodium 2 gm/ Sodium 100 mls @ 200 mls/hr 06/19/16 22:00 06/20/16 09: 03 Chloride IVPB 200 mls/hr BID AKOSUA Administration Sodium Chloride 1,000 mls @ 84 mls/hr 06/19/16 11:32 06/20/16 13:27 Normal Saline - IV 84 mls/hr ASDIR AKOSUA Administration Insulin Aspart 1 vial 06/19/16 16:30 06/20/16 11:13 Novolog Vial Sliding Scale - SQ Not Given [facility] Protocol Insulin Detemir 20 units 06/19/16 22:00 06/20/16 07:15 Levemir Vial SQ 20 units BID@0700,2200 AKOSUA Administration Metoprolol Succinate 50 mg 06/20/16 10:00 06/20/16 09:14 Toprol Xl - PO 50 mg DAILY AKOSUA Administration Mupirocin 1 applic 06/19/16 22:00 06/20/16 09:13 Bactroban Ointment (For Decolonization) - NS 06/22/16 21:59 1 applic BID AKOSUA Administration Tamsulosin HCl 0.4 mg 06/20/16 08:30 06/20/16 08:04 Flomax - PO 0.4 mg DAILY@0830 AKOSUA Administration ASSESSMENT/PLAN: This is a 66 year old Gentleman with PMhx of CKD (Cr was 3 in January), Hypertension, CAD, IDDM, BPH who presented to the ED with complaints of worsening SOB an lethargy and found to have BUN/Cr of 230/14.5, K of 7.6 and Bicarb of 4. Pt denies any history of CKD despite having elevated cr on or record. s/p shiley catheter placement and now receiving emergent HD for profound acidosis, electrolyte correction and respiratory distress. Sever Sepsis secondary to possible UTI and mild L hydronephrosis. : leukocytosis, tachepnic, tachycardic, -blood culture no growth 72H -urine culture- UVc with E faecalis -cont on ampicillin day 2. -cdiff negative. -ID consult appreciated. Acute toxic/metabolic encephalopathy- 2/2 to uremia. improved cont to monitor mental status cont to monitor electrolytes Acute on Chronic Renal failure:(Stage 5) Cr Cl less then 10 s/p shiley catheter (day 2) s/p HD x2, no indication for HD at this time, if not need for HD tomorrow will consider to remove cath. Suggests intrinsic. renal disease. In light of history and clinical presentation need to r/o obstruction. - Improving metabolic acidosis from possible lactic acidosis and RTA Cont joyner, strict I and O Dose all meds for Cr Cl less then 10 Restart flomax/proscar per urolog f/u urine lytes, creatinine Elevated anion GAP: most likely secondary to uremia. -HD Metabolic acidosis with Resp Compensation : from possible lactic acidosis and RTA -On Ventimask 15L -BiPAP to assist in work of breathing -Maintain O2 Sat> 88% -second HD today Hypocalcemia- Corrected ca 8.2 Received calcium gluconate to be adjusted with HD yesterday Cont oral supplementation. Start D5W with 11g Ca Gluconate at 50cc per hour after dialysis per renal. Repeat Ca level this evening, goal is > 7.5 per renal. Hyperkalemia- now hypokalemic. will replete with oral supplementation monitor electrolyte awaiting repeat BMP BPH-Incomplete bladder emtying with BPH joyner catheter Urology consult monitor urine output. will consider restating flomax/proscar/bethenacol. EXOPHYTIC RIGHT KIDNEY LESION: incidental renal mass on last admission. - urology on case Hyperkalemia resolved s/p HD Renal Diet Avoid ELIOT/ARBs at this time follow BMP Hypomagnesemia- resolved Prolonged Qt- avoid QT prolonging medications. Metabolic acidosis with Resp Compensation: Inc anion gap 2/2 CKD. ph 6.8 d/c biacrb gtt as now ph 7.5 repeat abg after HD and reaccess need for bicarb gtt. Anemia: Microcytic anemia, chronic in the setting of CKD. s/p 2 x PRBC HB 7--> 7.8 with inadequate response. concern for hemolytic anemia with elevated LDH but bilirubin normal. awaiting haptoglobin results. if positive will consider heme eval. no indication for txn at this time. Iron studies pending - 2/2 CKD - 2 PRBC with HD today - Cont. monitor, transfuse if HGB < 7 -awaiting Iron studies from morning labs prior to transfusion ; including ferritin, TIBC, reticulocyte count , folate, B12: -f/u H/H -Cont monitor, transfuse if HGB < 7. no need at this time Thoracic aortic aneurysm -4.9cm on echo with reported trileaflet aortic valve from last admission . -cont toprol -needs close outpatient follow up -would require sizing of aorta on his CT chest Diabetes Mellitus type II- poorly controlled -HA1C 15.9 -Glucose checks HCHS -insulin SS ACHS COPD- bronchio dilators Bipap PRN supplemental O2 LUNG NODULES ON CT CHEST: monitor 3 to 6 months compare to prior study stage 2 pressure ulcer- offloading. wound care possible surgery consulted. Prophylaxis - DVT: Heparin 5000 units SQ - GI: Not indicated dispo: stable for med surg. - monitor lytes Visit type - Emergency Visit Emergency Visit: Yes ED Registration Date: 06/17/16 Care time: The patient presented to the Emergency Department on the above date and was hospitalized for further evaluation of their emergent condition. - New Patient This patient is new to me today: No - Critical Care Critical Care patient: Yes Total Critical Care Time (in minutes): 45 Critical Care Statement: The care of this patient involved high complexity decision making to prevent further life threatening deterioration of the patient 's condition and/or to evalute & treat vital organ system(s) failure or risk of failure. - Discharge Referral Referred to [facility] Med P.C.: No
--- NOTE | 2016-06-20 15:55 | PN ---
Teaching Attending Note Name of Resident: Jesse Cerna ATTENDING PHYSICIAN STATEMENT I saw and evaluated the patient. I reviewed the resident's note and discussed the case with the resident. I agree with the resident's findings and plan as documented. SUBJECTIVE:currently asymptomatic. does not want to answer routine questions of is overall well being. OBJECTIVE: Last Vital Signs Temp Pulse Resp BP Pulse Ox 98.6 F 108 H 18 159/74 94 L 06/20/16 10:51 06/20/16 14:00 06/20/16 14:00 06/20/16 14:00 06/20/16 14:41 allowed only auscultation of heart and lungs General NAD, talking in full sentences CV S1 S2 RRR no murmur/rub/gallop 66yo M with PMH PMhx of CKD (Cr was 3 in January), Hypertension, CAD, IDDM, BPH who presented to the ED and was admitted for further evaluation of their emergent condition 1. Severe Sepsis due to UTI- UVc with E faecalis with full sensitivities. on ampicillin day 2. cdiff negative. 2. Acute toxic/metabolic encephalopathy- due to uremia. s/p HD x2 sessions. clinically improved, 3. Acute on CKD- likely due to obstructive. hx of BPH. s/p HD session x2. no indication for HD at this time. spep pending. nephrology on board. if no continue improvement in renal functioing plan for possible HD tomorrow. keep HD catheter at this time. repeat kidney u/s pending to evaluate for resolution of hydro. urology on board. on flomax/proscar. maintain joyner at this time. d/c IVF 4. Buttock wound- not visualized by me as pt was brief with his interaction with me. surgical eval if requires debridement. WCx sent and pending organism. 5. microcytic anemia-s/p 2 units PRBC this hospitalization. concern for hemolytic anemia with elevated LDH but bilirubin normal. awaiting haptoglobin results. if positive will consider heme eval. no indication for txn at this time. Iron studies pending 6. DM- A1c 15.9. improved. iss, bgm. hold oral agents 7. Hypocalcemia- Corrected ca 8.2 s/p calcium gluconate. cont oral supplementation. 8. prolonged Qt- avoid QT prolonging medications. repeat EKG 9. hyperkalemia- now hypokalemic. will replete with oral supplementation 10. hypomagnesemia- resolved 11. stage 2 pressure ulcer- offloading. wound care 12. DVT ppx- SCD 13. stable for medical floors. The care of this patient involved high complexity decision making to prevent further life threatening deterioration of the patient's condition and/or to evaluate & treat vital organ system(s) failure or risk of failure. critical care time 40 minutes
[2016-06-21 00:06] LABS: A/G RATIO 0.7 (0.7-1.7); ALBUMIN 2.2 g/dL (2.9-4.4); COMPLEMENT C3 70 mg/dL (82-167); COMPLEMENT C4 33 mg/dL (14-44); GLOBULIN, TOTAL 3.3 g/dL (2.2-3.9); HAPTOGLOBIN 348 mg/dL (34-200); M-SPIKE Not Observed g/dL (Not Observed); TOTAL PROTEIN 5.5 g/dL (6.0-8.5)
[2016-06-21] MEDS ORDERED: ACETAMINOPHEN 325 MG TABLET (FP) PO PRN (00:16)
[2016-06-21] MEDS ORDERED: ALBUTEROL SO4 6.7 GM HFA INHALER IH PRN (00:16)
[2016-06-21] MEDS: INSULIN SLIDING SCALE (NOVOLOG) 1 VIAL SQ SCH ×4 (06:01→22:32)
[2016-06-21] MEDS: INSULIN DETEMIR 100 UNITS/ML MDV SQ SCH ×2 (06:52→22:27)
[2016-06-21 07:51] LABS: MCH 24.9 pg (25.7-33.7); MCHC 33.1 g/dl (32.0-35.9); MEAN CELL VOLUME 75.2 fl (80-96); MEAN PLT VOLUME 7.4 fl (7.5-11.1); PLATELET COUNT 176 K/MM3 (134-434); RDW 16.2 % (11.9-15.9); WHITE BLOOD COUNT 17.2 K/mm3 (4.0-10.0)
[2016-06-21 08:29] LABS: CREATININE 7.1 mg/dL (0.7-1.3)
[2016-06-21] MEDS ORDERED: PT OWN MED DRAWER 7, Y5N ONE ×2 (09:08→11:00)
[2016-06-21 09:11] LABS: ALBUMIN 1.8 g/dl (3.4-5.0); BILIRUBIN,TOTAL 0.3 mg/dL (0.2-1.0); TOT PROT 5.5 g/dl (6.4-8.2)
[2016-06-21] MEDS: amLODIPine BESYLATE 10 MG TABLET (FP) PO SCH (09:15)
[2016-06-21] MEDS: CHOLECALCIFEROL (VITAMIN D3) 1,000 UNIT TABLET (FP) PO SCH (09:15)
[2016-06-21] MEDS: FINASTERIDE 5 MG TABLET (FP) PO SCH (09:15)
[2016-06-21] MEDS: CALCIUM ACETATE 667 MG CAPSULE (FP) PO SCH ×3 (09:15→16:34)
[2016-06-21] MEDS: METOPROLOL SUCCINATE 50 MG TAB.SR.24H (FP) PO SCH (09:15)
[2016-06-21] MEDS: HEPARIN NA (PORCINE) 5,000 UNITS/ML 1ML VIAL SQ SCH ×2 (09:16→21:58)
[2016-06-21] MEDS: TAMSULOSIN HCL 0.4 MG CAP.ER.24H (FP) PO SCH (09:16)
[2016-06-21] MEDS: CALCITRIOL 0.25 MCG CAPSULE (FP) PO SCH (09:16)
[2016-06-21 09:45] LABS: CALCIUM 6.2 mg/dL (8.5-10.1)
[2016-06-21] MEDS ORDERED: AMPICILLIN - 2 GM in SODIUM CHLORIDE 100 ML IVPB SCH (10:00)
[2016-06-21] MEDS ORDERED: MUPIROCIN 2% TOPICAL OINTMENT FOR DECOLONIZATION NS SCH (10:00)
--- NOTE | 2016-06-21 10:34 | CONSULT ---
- Consultation REQUESTING PROVIDER: Yordy FELIZ CONSULT REQUEST: CTSP for evaluation and management of wounds PCP:Marley Scales HISTORY OF PRESENT ILLNESS:P atient admitted to ICU w/ fluid overload and CKI and ? wound of right posterior hip and right groin and lateral right buttock fold/perineum. PMHx: reviewed PSHx: n/a Home Medications Medication Instructions Recorded Albuterol Sulfate [Proair 90 mcg IH ASDIR PRN 01/24/16 Respiclick] Calcium Carbonate [Calcium] 2 tab.chew PO DAILY 01/24/16 Cholecalciferol (Vitamin D3) 2,000 unit PO DAILY 01/24/16 [Vitamin D3] Finasteride [Proscar] 5 mg PO DAILY 01/24/16 Glipizide 5 mg PO DAILY 01/24/16 Insulin Detemir [Levemir Flextouch] 20 unit SQ BID 01/24/16 Metoprolol Succinate [Toprol XL -] 50 mg PO HS 01/24/16 Tamsulosin HCl [Flomax -] 0.4 mg PO HS 01/24/16 Amlodipine Besylate [Norvasc -] 10 mg PO DAILY #30 tablet 01/26/16 Allergies Allergy/AdvReac Type Severity Reaction Status Date / Time No Known Allergies Allergy Verified 06/17/16 04:20 PHYSICAL EXAM: GENERAL: Awake, alert, and fully oriented, in no acute distress; in bed in ICU ABDOMEN: Soft, nontender, not distended, normoactive bowel sounds, no guarding, no rebound, no masses. No organomegaly. MUSCULOSKELETAL: Normal ROM at all joints. No bony deformities or tenderness. No CVA tenderness. UPPER EXTREMITIES: 2+ pulses, warm, well-perfused. No cyanosis. Cap refill <2 seconds. No peripheral edema. LOWER EXTREMITIES: 2+ pulses, warm, well-perfused. No calf tenderness. No peripheral edema. NEUROLOGICAL: Normal speech, gait not observed. PSYCH: Cooperative. Good eye contact. Appropriate mood and affect. SKIN: Warm, dry, normal turgor, resolving acute on chronic ABSSSI of the right posterior thigh; verrucous leson(s) perineum/groin Vital Signs WBC 17.2 K/mm3 (4.0-10.0) H 06/21/16 05:35 RBC 3.09 M/mm3 (4.00-5.60) L 06/21/16 05:35 Hgb 7.7 GM/dL (11.7-16.9) L 06/21/16 05:35 Hct 23.3 % (35.4-49) L 06/21/16 05:35 MCV 75.2 fl (80-96) L 06/21/16 05:35 MCHC 33.1 g/dl (32.0-35.9) 06/21/16 05:35 RDW 16.2 % (11.9-15.9) H 06/21/16 05:35 Plt Count 176 K/MM3 (134-434) 06/21/16 05:35 Sodium 137 mmol/L (136-145) 06/21/16 05:35 Potassium 3.3 mmol/L (3.5-5.1) L 06/21/16 05:35 Chloride 100 mmol/L (98-107) 06/21/16 05:35 Carbon Dioxide 21 mmol/L (21-32) 06/21/16 05:35 Anion Gap 16 (8-16) 06/21/16 05:35 BUN 81 mg/dL (7-18) H 06/21/16 05:35 Creatinine 7.1 mg/dL (0.7-1.3) H 06/21/16 05:35 Random Glucose 117 mg/dL (74-106) H 06/21/16 05:35 Calcium 6.2 mg/dL (8.5-10.1) L* 06/21/16 05:35 Blood Type B POSITIVE 06/17/16 05:49 Antibody Screen Negative 06/17/16 05:49 INR 1.34 (0.82-1.09) H 06/17/16 04:30 IMP: Resolving ABSSSI of the right posterior thigh and skin lesions right groin and perineum PLAN: Recommend LWC; I and D not indicated; prn surgical f/u. Rai Duff MD [facility] Visit type - Case Type Case Type: ED Admission - Emergency Emergency Visit: Yes ED Registration Date: 06/17/16 Care time: The patient presented to the Emergency Department on the above date and was hospitalized for further evaluation of their emergent condition. - New patient This patient is new to me today: Yes Date on this admission: 06/21/16
--- NOTE | 2016-06-21 14:26 | PN ---
Progress Note (short form) - Note Progress Note: awake and alert being dialyzed no complaints febrile to 101.8 yesterday Vital Signs Period Temp Pulse Resp BP Sys/Vogt Pulse Ox Last 24 Hr 98.0 F-101.8 F 55-112 14-20 78-164/51-103 94-98 cor-rrr lungs decreased bs at bases abd soft,nt +femoral shiley ext +anay joyner CBC, BMP 06/21/16 05:35 06/21/16 05:35 Microbiology 06/19/16 10:00 Stool Salmonella/Shigella Culture - Preliminary 06/19/16 10:00 Stool Yersinia Culture - Preliminary NO ENTERIC PATHOGENS, 24 HOURS, ON PRIMARY PLATES 06/19/16 10:00 Stool Vibrio Culture - Preliminary NO ENTERIC PATHOGENS, 24 HOURS, ON PRIMARY PLATES 06/19/16 10:00 Stool Escherichia coli 0157 Culture - Preliminary NO ENTERIC PATHOGENS, 24 HOURS, ON PRIMARY PLATES 06/17/16 16:45 Hip - Right Gram Stain - Final 06/17/16 16:45 Hip - Right Wound Culture - Preliminary Staphylococcus Epidermidis 06/17/16 10:15 Blood - Shiley Catheter Blood Culture - Preliminary NO GROWTH OBTAINED AFTER 96 HOURS, INCUBATION TO CONTINUE FOR 1 DAYS. 06/17/16 10:15 Blood - Shiley Catheter Blood Culture - Preliminary NO GROWTH OBTAINED AFTER 96 HOURS, INCUBATION TO CONTINUE FOR 1 DAYS. 06/17/16 10:40 Urine - Urine Joyner Urine Culture - Final Enterococcus Faecalis 06/19/16 10:00 Stool Clostridium difficile Antigen (JADYN) - Final 06/19/16 10:00 Stool Clostridium difficile Toxin Assay - Final cxray with RLL infiltrate Current Medications Acetaminophen (Tylenol -) 650 mg PO Q4H PRN PRN Reason: FEVER OR PAIN Last Admin: 06/21/16 05:48 Dose: 650 mg Albuterol Sulfate (Ventolin Hfa Inhaler -) 2 puff IH Q6H PRN PRN Reason: SHORT OF BREATH/WHEEZING Amlodipine Besylate (Norvasc -) 10 mg PO DAILY [facility] Last Admin: 06/21/16 09:15 Dose: 10 mg Calcitriol (Rocaltrol -) 0.25 mcg PO DAILY [facility] Last Admin: 06/21/16 09:16 Dose: 0.25 mcg Calcium Acetate (Phoslo -) 1,334 mg PO TIDCM [facility] Last Admin: 06/21/16 12:23 Dose: 1,334 mg Cholecalciferol (Vitamin D3 -) 2,000 unit PO DAILY [facility] Last Admin: 06/21/16 09:15 Dose: 2,000 unit Finasteride (Proscar -) 5 mg PO DAILY [facility] Last Admin: 06/21/16 09:15 Dose: 5 mg Heparin Sodium (Porcine) (Heparin -) 5,000 unit SQ BID [facility] Last Admin: 06/21/16 09:16 Dose: 5,000 unit Ampicillin Sodium 2 gm/ Sodium (Chloride) 100 mls @ 200 mls/hr IVPB BID [facility] Last Admin: 06/21/16 09:46 Dose: 200 mls/hr Insulin Aspart (Novolog Vial Sliding Scale -) 1 vial SQ ACHS [facility] PRN Reason: Protocol Last Admin: 06/21/16 11:46 Dose: 2 units Insulin Detemir (Levemir Vial) 20 units SQ BID@0700,2200 [facility] Last Admin: 06/21/16 06:52 Dose: 20 units Metoprolol Succinate (Toprol Xl -) 50 mg PO DAILY [facility] Last Admin: 06/21/16 09:15 Dose: 50 mg Tamsulosin HCl (Flomax -) 0.4 mg PO DAILY@0830 [facility] Last Admin: 06/21/16 09:16 Dose: 0.4 mg a/p new fever- will send blood cultures- ?d/c femoral shiley - how long ws it in- RLL infiltrate on cxray d/c ampicillin persistent leukocytosis treat for HAP vancomycin one dose, cefepime on gram daily ISA remains on HD UTI/sepsis secondary to UTI severe anemia diabetes out of control- hgbaic of 15.9! d/w Dr Cope
[2016-06-21] MEDS ORDERED: EPOETIN ALFA 10,000 UNIT/1 ML VIAL IVPUSH ONE (14:36)
--- NOTE | 2016-06-21 14:36 | PN ---
Progress Note (short form) - Note Progress Note: Renal Follow up for ISA on CKD Pt seen and examined in the ICU awake and alert no acute complaints no sob or chest pain good urine output via joyner on IVF BP stable Vital Signs Temperature 99.0 F 06/20/16 06:39 Pulse Rate 98 H 06/20/16 10:07 Respiratory Rate 18 06/20/16 10:07 Blood Pressure 185/94 06/20/16 10:07 O2 Sat by Pulse Oximetry (%) 94 L 06/20/16 07:54 Intake & Output 06/17/16 06/18/16 06/19/16 06/20/16 23:59 23:59 23:59 23:59 Intake Total 1075 3600 3590 1008 Output Total 1000 1650 2150 1000 Balance 75 1950 1440 8 Weight 214 lb 209 lb 14.4 oz 205 lb 14.4 oz 215 lb 11.2 oz Gen: NAD, awake and alert CVS: RRR, No M/R Lungs: CTA no rales Abd: soft NT/ND Ext: No edema, clubbing or cyanosis : no bladder distension, joyner in place with yellow urine CBC, BMP 06/20/16 05:20 06/20/16 05:20 Laboratory Tests 06/19/16 06/20/16 15:00 05:20 Calcium 6.4 L* Phosphorus 4.5 Magnesium 2.1 D LD Total 463 H Albumin 1.8 L Current Medications Acetaminophen (Tylenol -) 650 mg PO Q4H PRN PRN Reason: FEVER OR PAIN Albuterol Sulfate (Ventolin Hfa Inhaler -) 2 puff IH Q6H PRN PRN Reason: SHORT OF BREATH/WHEEZING Amlodipine Besylate (Norvasc -) 10 mg PO DAILY [facility] Last Admin: 06/20/16 09:43 Dose: 10 mg Calcitriol (Rocaltrol -) 0.25 mcg PO DAILY [facility] Last Admin: 06/20/16 09:43 Dose: 0.25 mcg Calcium Acetate (Phoslo -) 1,334 mg PO TIDCM [facility] Last Admin: 06/20/16 08:04 Dose: 1,334 mg Calcium Carbonate (Calcium Carbonate -) 1,300 mg PO BID [facility] Last Admin: 06/19/16 21:05 Dose: 1,300 mg Cholecalciferol (Vitamin D3 -) 2,000 unit PO DAILY [facility] Last Admin: 06/20/16 09:43 Dose: 2,000 unit Finasteride (Proscar -) 5 mg PO DAILY [facility] Heparin Sodium (Porcine) (Heparin -) 5,000 unit SQ BID [facility] Last Admin: 06/20/16 09:14 Dose: 5,000 unit Ampicillin Sodium 2 gm/ Sodium (Chloride) 100 mls @ 200 mls/hr IVPB BID [facility] Last Admin: 06/20/16 09:03 Dose: 200 mls/hr Sodium Chloride (Normal Saline -) 1,000 mls @ 84 mls/hr IV ASDIR [facility] Last Admin: 06/19/16 12:32 Dose: Not Given Insulin Aspart (Novolog Vial Sliding Scale -) 1 vial SQ ACHS [facility] PRN Reason: Protocol Last Admin: 06/20/16 07:12 Dose: Not Given Insulin Detemir (Levemir Vial) 20 units SQ BID@0700,2200 [facility] Last Admin: 06/20/16 07:15 Dose: 20 units Metoprolol Succinate (Toprol Xl -) 50 mg PO DAILY [facility] Last Admin: 06/20/16 09:14 Dose: 50 mg Mupirocin (Bactroban Ointment (For Decolonization) -) 1 applic NS BID [facility] Stop: 06/22/16 21:59 Last Admin: 06/20/16 09:13 Dose: 1 applic Tamsulosin HCl (Flomax -) 0.4 mg PO DAILY@0830 [facility] Last Admin: 06/20/16 08:04 Dose: 0.4 mg A/P 66 year old Gentleman with PMhx of CKD (Cr was 3 in January), Hypertension, CAD , IDDM, BPH who presented to the ED with complaints of SOB and found to have BUN /Cr of 230/14.5, K of 7.6 and Bicarb of 4. #Acute Renal Failure in setting of CKD Etiology of ISA on CKD: ATN from sepsis +/- obstructive uropathy vs. intrinisc renal injury (GN, microangiopathy, vasculitis) Pt with good urine production but no improvement in BUN/Cr off dialysis Currently getting dialysis today with 0 UF Serologic work up showed pt with negative SHIRA, HIV, Hepeatitis, RPR, SPEP C3 slightly low, significance unclear given other normal serologic studies Proteinuria and CKD likely secondary to diabetic nephrosclerosis given normal kidney size on US After dialysis today, the temporary dialysis catheter can be removed, will monitor renal function over the weekend and if now improvement can plan for tunneled HD catheter on Friday and outpatient dialysis placement #Hypocalcemia/Hyperphosphatemia corrected Ca is WNL Phos and Mg levels improved PTH pending continue calcium acetate, calcitriol, Vit D3 d/c calcium carbonate Trend daily #Anemia LDH elevated but Haptoglobin elevated as well that is less likely related to MAHA Will give Epogen 21156 units IV with HD today transfuse as per primary team #Leukocytosis/Hypothermia/Sepsis/PNA Continue Abx as per ID Dose vanco by hong Vanegas DO
[2016-06-21] MEDS ORDERED: VANCOMYCIN 1 GRAM (PRE-DOCKED) 250 ML IVPB ONE (16:30)
[2016-06-21] MEDS: CEFEPIME 1 GM/100 ML BAG PRE-DOCKED IVPB SCH (16:34)
--- NOTE | 2016-06-21 16:53 | PN ---
Progress Note (short form) - Note Progress Note: PULMONARY CHART REVIEWED CONVERSING WITH FAMILY NOT WEARING O2 APPEARS COMFORTABLE/NOT SOB VSS ANICTERIC DISTANT BREATH SOUNDS/SCATTERED RHONCHI RIGHT BASE RSR BS+ SOFT NO EDEMA LABS/MEDS/NOTES/IMAGING REVIEWED Acute on Chronic Renal Failure requiring emergent HD Hyperkalemia resolved Profound Metabolic Acidosis improved UTI Acute Respiratory Distress requiring NIPPV resolving HTN DM BPH - HD per renal - monitor urine output, creatinine - continue IVF - monitor lytes - d/c HD catheter if no further HD planned - continue antibiotics - BiPAP as needed to assist in work of breathing - DVT/GI prophylaxis - monitor on floor Darien CADENA MD
--- NOTE | 2016-06-21 17:39 | PN ---
Physical Exam: SUBJECTIVE: Patient seen and examined Pt is awake alert and orineted Pt in a lindsay and refused part of the examination Pt with low grade fever in am and fever overnight with T max 101.8 denies chest pain, shortness of breath No n/v OBJECTIVE: Vital Signs Period Temp Pulse Resp BP Sys/Vogt Pulse Ox Last 24 Hr 98.0 F-100.2 F 49-98 14-20 78-164/51-103 95-98 GENERAL: The patient is awake, alert, and fully oriented, in no acute distress. HEAD: Normal with no signs of trauma. NECK: Trachea midline, full range of motion, supple. LUNGS: diminished bases, scattered ronchi HEART: Regular rate and rhythm, S1, S2 without murmur, rub or gallop. ABDOMEN: Soft, nontender, nondistended, normoactive bowel sounds, no guarding, no rebound, no hepatosplenomegaly, no masses. EXTREMITIES: 2+ pulses, warm, well-perfused, no edema. NEUROLOGICAL: Normal speech, gait not observed. SKIN: Warm, dry, normal turgor, no rashes or lesions noted Laboratory Results - last 24 hr 06/17/16 06/17/16 06/19/16 07:49 16:11 00:06 WBC RBC Hgb Hct MCV MCHC RDW Plt Count MPV Haptoglobin Sodium Potassium Chloride Carbon Dioxide Anion Gap BUN Creatinine Creat Clearance w eGFR POC Glucometer [phone] 228.88729 Random Glucose Calcium Total Bilirubin AST ALT Alkaline Phosphatase Prot Electrophoresis Serum Total Protein Total Protein Albumin Globulin Albumin/Globulin Ratio Zpuvc-6-Jnoamvmpg Irntt-6-Mbqvaptso Beta Globulins Gamma Globulins VENESSA M-Nickolas SHIRA Screen Complement C3 Complement C4 Tot Complement (CH50) 06/19/16 06/19/16 06/19/16 05:29 10:57 12:00 WBC RBC Hgb Hct MCV MCHC RDW Plt Count MPV Haptoglobin 348 H Sodium Potassium Chloride Carbon Dioxide Anion Gap BUN Creatinine Creat Clearance w eGFR POC Glucometer 103.58334 210.57802 Random Glucose Calcium Total Bilirubin AST ALT Alkaline Phosphatase Prot Electrophoresis Serum Total Protein 5.5 L Total Protein Albumin 2.2 L Globulin 3.3 Albumin/Globulin Ratio 0.7 Hztqm-5-Defjtevlp 0.3 Qobzl-8-Egmfmbpso 1.0 Beta Globulins 0.7 Gamma Globulins 1.3 VENESSA M-Nickolas Not observed SHIRA Screen Complement C3 Complement C4 Tot Complement (CH50) 36 L 06/19/16 06/19/16 06/19/16 12:00 12:00 16:09 WBC RBC Hgb Hct MCV MCHC RDW Plt Count MPV Haptoglobin Sodium Potassium Chloride Carbon Dioxide Anion Gap BUN Creatinine Creat Clearance w eGFR POC Glucometer [phone] Random Glucose Calcium Total Bilirubin AST ALT Alkaline Phosphatase Prot Electrophoresis Serum Total Protein Total Protein Albumin Globulin Albumin/Globulin Ratio Grxod-9-Glmzlffcz Rgvax-0-Wpqsymetj Beta Globulins Gamma Globulins VENESSA M-Nickolas SHIRA Screen Negative Complement C3 70 L Complement C4 33 Tot Complement (CH50) 06/19/16 06/20/16 06/20/16 22:47 06:20 16:11 WBC RBC Hgb Hct MCV MCHC RDW Plt Count MPV Haptoglobin Sodium Potassium Chloride Carbon Dioxide Anion Gap BUN Creatinine Creat Clearance w eGFR POC Glucometer 271.82852 168.42578 162.05198 Random Glucose Calcium Total Bilirubin AST ALT Alkaline Phosphatase Prot Electrophoresis Serum Total Protein Total Protein Albumin Globulin Albumin/Globulin Ratio Qcsaz-8-Iczsvkpnr Icdus-6-Ozireokfr Beta Globulins Gamma Globulins VENESSA M-Nickolas SHIRA Screen Complement C3 Complement C4 Tot Complement (CH50) 06/20/16 06/21/16 06/21/16 21:35 05:35 05:35 WBC 17.2 H RBC 3.09 L Hgb 7.7 L Hct 23.3 L MCV 75.2 L MCHC 33.1 RDW 16.2 H Plt Count 176 MPV 7.4 L Haptoglobin Sodium 137 Potassium 3.3 L Chloride 100 Carbon Dioxide 21 Anion Gap 16 BUN 81 H Creatinine 7.1 H Creat Clearance w eGFR 7.79 POC Glucometer [phone] Random Glucose 117 H Calcium 6.2 L* Total Bilirubin 0.3 AST 14 L ALT 12 Alkaline Phosphatase 78 Prot Electrophoresis Serum Total Protein Total Protein 5.5 L Albumin 1.8 L Globulin Albumin/Globulin Ratio Tzdhe-5-Wyagfennc Zmwtu-0-Ynocifptq Beta Globulins Gamma Globulins VENSESA M-Nickolas SHIRA Screen Complement C3 Complement C4 Tot Complement (CH50) 06/21/16 06/21/16 06/21/16 05:35 06:00 11:45 WBC RBC Hgb Hct MCV MCHC RDW Plt Count MPV Haptoglobin Sodium Cancelled Potassium Cancelled Chloride Cancelled Carbon Dioxide Cancelled Anion Gap Cancelled BUN Cancelled Creatinine Cancelled Creat Clearance w eGFR Cancelled POC Glucometer 135 161 Random Glucose Cancelled Calcium Cancelled Total Bilirubin Cancelled AST Cancelled ALT Cancelled Alkaline Phosphatase Cancelled Prot Electrophoresis Serum Total Protein Total Protein Cancelled Albumin Cancelled Globulin Albumin/Globulin Ratio Peztk-1-Zylwyfzrf Zucxe-1-Diapnmrup Beta Globulins Gamma Globulins VENESSA M-Nickolas SHIRA Screen Complement C3 Complement C4 Tot Complement (CH50) 06/21/16 16:57 WBC RBC Hgb Hct MCV MCHC RDW Plt Count MPV Haptoglobin Sodium Potassium Chloride Carbon Dioxide Anion Gap BUN Creatinine Creat Clearance w eGFR POC Glucometer 325 Random Glucose Calcium Total Bilirubin AST ALT Alkaline Phosphatase Prot Electrophoresis Serum Total Protein Total Protein Albumin Globulin Albumin/Globulin Ratio Rwpno-6-Mkzkibqwl Jreyz-5-Mqyxmvghn Beta Globulins Gamma Globulins VENESSA M-Nickolas SHIRA Screen Complement C3 Complement C4 Tot Complement (CH50) Active Medications Generic Name Dose Route Start Last Admin Trade Name Freq PRN Reason Stop Dose Admin Acetaminophen 650 mg 06/21/16 00:16 06/21/16 05:48 Tylenol - PO 650 mg Q4H PRN Administration FEVER OR PAIN Albuterol Sulfate 2 puff 06/21/16 00:16 Ventolin Hfa Inhaler - IH Q6H PRN SHORT OF BREATH/WHEEZING Amlodipine Besylate 10 mg 06/21/16 10:00 06/21/16 09:15 Norvasc - PO 10 mg DAILY [facility] Administration Calcitriol 0.25 mcg 06/21/16 10:00 06/21/16 09:16 Rocaltrol - PO 0.25 mcg DAILY [facility] Administration Calcium Acetate 1,334 mg 06/21/16 08:00 06/21/16 16:34 Phoslo - PO 1,334 mg TIDCM [facility] Administration Cefepime HCl 1 gm 06/21/16 16:30 06/21/16 16:34 Maxipime 1gm Ivpb Pre-Docked IVPB 1 gm DAILY [facility] Administration Protocol Cholecalciferol 2,000 unit 06/21/16 10:00 06/21/16 09:15 Vitamin D3 - PO 2,000 unit DAILY [facility] Administration Epoetin Neftaly 10,000 unit 06/21/16 14:36 Procrit - IVPUSH 06/21/16 14:37 ONCE ONE Finasteride 5 mg 06/21/16 10:00 06/21/16 09:15 Proscar - PO 5 mg DAILY [facility] Administration Heparin Sodium (Porcine) 5,000 unit 06/21/16 10:00 06/21/16 09:16 Heparin - SQ 5,000 unit BID [facility] Administration Insulin Aspart 1 vial 06/21/16 07:00 06/21/16 16:58 Novolog Vial Sliding Scale - SQ 6 units ACHS [facility] Administration Protocol Insulin Detemir 20 units 06/21/16 07:00 06/21/16 06:52 Levemir Vial SQ 20 units BID@0700,2200 [facility] Administration Metoprolol Succinate 50 mg 06/21/16 10:00 06/21/16 09:15 Toprol Xl - PO 50 mg DAILY [facility] Administration Tamsulosin HCl 0.4 mg 06/21/16 08:30 06/21/16 09:16 Flomax - PO 0.4 mg DAILY@0830 [facility] Administration ASSESSMENT/PLAN: 66 year old male with pmh of CKD (with Cr of 3 on01/2016), HTN, CAD, DM, BPH complaining of sob admitted for Acute renal failure requiring dialysis and Sepsis from UTI Sepsis from UTI: Urine culture with E faecalis , Cdiff negative, stool culture pending, wound culture with staph coag, blood culture neg ID on case, pt was ampicillin Pt is having worsening leukocytosis and low grade fever Dialysis access is a another possible source for the infection remove Dialysis Cathether Repeat culture with fever spike Per ID: start Vanco IV once and Cefepime 1 gm daily Monitor vitals Acute on Chronic renal failure Received dialysis today remove dialysis catheter Monitor renal function over the weekend If worsening, renal 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 Possible cause for ARF is obstruction vs worsening intrinsic renal disease Renal ultrasound done twice showed left hydronephrosis no mechanical obstruction seen Pt has h/o BPH on Flomax, Proscar and joyner catheter in place Urology on case Hypocalecemia Calcium corrected 7.96 On po calcium supplement Recheck in am HYpokalemia K3.3 Repeat in am Microcytic anemia likely from Chronic renal disease hbg 7.7 Iron studies indicate anemia of chronic disease trend CBC Diabetes Hga1c 15.9 was uncontrolled at home Glucose Now under control for the past 2-3 days On insulin sliding scale Levemir 20U SQ BID COPD continue bronchodilators Moderate Aortic root dilation 4.9 cm Aortic root on previous echo On betablocker asymptomactic Outpatient follow up and monitoring Lung nodule on chest CT Outpatient follow up FEN Fluid: None Elctrolytes: CMP, Mg, phos in am Nutrition: diabetic/renal diet Prophylaxis DVT:heparin SQ BID Disposition: keep in medsurg over the weekend to control sepsis and ARF Visit type - Emergency Visit Emergency Visit: Yes ED Registration Date: 06/17/16 Care time: The patient presented to the Emergency Department on the above date and was hospitalized for further evaluation of their emergent condition. - New Patient This patient is new to me today: Yes Date on this admission: 06/21/16 - Critical Care Critical Care patient: No - Discharge Referral Referred to [facility] Med P.C.: No
--- NOTE | 2016-06-21 18:48 | PN ---
Teaching Attending Note Name of Resident: Harjinder Isaac ATTENDING PHYSICIAN STATEMENT I saw and evaluated the patient. I reviewed the resident's note and discussed the case with the resident. I agree with the resident's findings and plan as documented. SUBJECTIVE:currently asymptomatic. denies CP, SOB,fever, chills, N/V/C/D. continuing OBJECTIVE: Last Vital Signs Temp Pulse Resp BP Pulse Ox 99.3 F 98 H 18 158/84 99 06/21/16 15:57 06/21/16 15:57 06/21/16 15:57 06/21/16 15:57 06/21/16 09:00 General NAD, CV S1 S2 RRR no murmur/rub/gallop 66yo M with PMH PMhx of CKD (Cr was 3 in January), Hypertension, CAD, IDDM, BPH who presented to the ED and was admitted for further evaluation of their emergent condition 1. Severe Sepsis due to UTI and developing PNA-Tm 101.8 with uptrending leukocytosis, concern for infected HD catheter. will pull after HD today. CXR showing developing infiltrate. BCx sent and pending. received vanco x1. ampicillin switched to cefipime. 2. Acute toxic/metabolic encephalopathy- due to uremia. s/p HD x2 sessions. clinically improved, 3. Acute on CKD- likely due to obstructive. hx of BPH. s/p HD session x3. HD today due to no improvement in kidney function. will check daily if requiring repeated HD. 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 as per pt his PMD said he may require HD. repeat u/s shows persistent hydro but not worsening. good UOP. maintain joyner. on flomax/proscar 4. Buttock wound- evaluated by surgery. no indication for I&D. 5. microcytic anemia-s/p 2 units PRBC this hospitalization. haptoglobin is elevated. remaining stable. txn for hgb <7. 6. DM- A1c 15.9. improved. iss, bgm. hold oral agents 7. Hypocalcemia- Corrected ca 8.2 s/p calcium gluconate. cont oral supplementation. 8. prolonged Qt- avoid QT prolonging medications. repeat EKG 9. hyperkalemia- now hypokalemic. HD today. will check tomorrow 10. hypomagnesemia- resolved 11. stage 2 pressure ulcer- offloading. wound care 12. DVT ppx- hep sq
[2016-06-21] MEDS ORDERED: INSULIN (NOVOLOG) ASPART 100 UNITS/ML 10ML VIAL SQ ONE (22:10)
[2016-06-22 00:52] LABS: CREATININE 5.6 mg/dL (0.7-1.3)
[2016-06-22 00:58] LABS: CALCIUM 6.4 mg/dL (8.5-10.1)
[2016-06-22 01:49] LABS: VENOUS BLOOD GAS HCO3 23.9 meq/L (19-25); VENOUS PH 7.43 (7.32-7.42)
[2016-06-22] MEDS: INSULIN DETEMIR 100 UNITS/ML MDV SQ SCH ×2 (06:23→21:22)
[2016-06-22] MEDS: INSULIN SLIDING SCALE (NOVOLOG) 1 VIAL SQ SCH ×4 (06:25→21:25)
[2016-06-22 07:55] LABS: MCHC 32.8 g/dl (32.0-35.9); MEAN CELL VOLUME 76.3 fl (80-96); MEAN PLT VOLUME 7.7 fl (7.5-11.1); PLATELET COUNT 154 K/MM3 (134-434); RDW 15.7 % (11.9-15.9); WHITE BLOOD COUNT 13.5 K/mm3 (4.0-10.0)
[2016-06-22 08:10] LABS: CREATININE 5.9 mg/dL (0.7-1.3); MAGNESIUM 1.7 mg/dL (1.8-2.4); PHOSPHOROUS 3.6 mg/dL (2.5-4.9)
[2016-06-22 08:16] LABS: CALCIUM 6.3 mg/dL (8.5-10.1)
[2016-06-22] MEDS: TAMSULOSIN HCL 0.4 MG CAP.ER.24H (FP) PO SCH (08:29)
[2016-06-22] MEDS: CALCIUM ACETATE 667 MG CAPSULE (FP) PO SCH ×3 (08:29→17:56)
[2016-06-22 09:15] LABS: ALBUMIN 1.8 g/dl (3.4-5.0)
[2016-06-22] MEDS: CEFEPIME 1 GM/100 ML BAG PRE-DOCKED IVPB SCH (09:19)
[2016-06-22] MEDS: HEPARIN NA (PORCINE) 5,000 UNITS/ML 1ML VIAL SQ SCH ×2 (09:20→21:16)
[2016-06-22] MEDS: amLODIPine BESYLATE 10 MG TABLET (FP) PO SCH (09:20)
[2016-06-22] MEDS: METOPROLOL SUCCINATE 50 MG TAB.SR.24H (FP) PO SCH (09:20)
[2016-06-22] MEDS: CHOLECALCIFEROL (VITAMIN D3) 1,000 UNIT TABLET (FP) PO SCH (09:20)
[2016-06-22] MEDS: FINASTERIDE 5 MG TABLET (FP) PO SCH (09:21)
[2016-06-22] MEDS: CALCITRIOL 0.25 MCG CAPSULE (FP) PO SCH (09:21)
--- NOTE | 2016-06-22 11:00 | PN ---
Progress Note (short form) - Note Progress Note: awake and alert no complaints Vital Signs Period Temp Pulse Resp BP Sys/Vogt Pulse Ox Last 24 Hr 99.2 F-99.6 F 49-99 18-20 78-164/50-103 98 cor-rrr lungs decreased bs at bases abd soft,nt ext no edema +joyner CBC, BMP 06/22/16 06:20 06/22/16 06:20 cxray with RLL infiltrate blood cultures pending Current Medications Acetaminophen (Tylenol -) 650 mg PO Q4H PRN PRN Reason: FEVER OR PAIN Last Admin: 06/21/16 05:48 Dose: 650 mg Albuterol Sulfate (Ventolin Hfa Inhaler -) 2 puff IH Q6H PRN PRN Reason: SHORT OF BREATH/WHEEZING Amlodipine Besylate (Norvasc -) 10 mg PO DAILY [facility] Last Admin: 06/22/16 09:20 Dose: 10 mg Calcitriol (Rocaltrol -) 0.25 mcg PO DAILY [facility] Last Admin: 06/22/16 09:21 Dose: 0.25 mcg Calcium Acetate (Phoslo -) 1,334 mg PO TIDCM [facility] Last Admin: 06/22/16 08:29 Dose: 1,334 mg Cefepime HCl (Maxipime 1gm Ivpb Pre-Docked) 1 gm IVPB DAILY [facility] PRN Reason: Protocol Last Admin: 06/22/16 09:19 Dose: 1 gm Cholecalciferol (Vitamin D3 -) 2,000 unit PO DAILY [facility] Last Admin: 06/22/16 09:20 Dose: 2,000 unit Epoetin Neftaly (Procrit -) 10,000 unit IVPUSH ONCE ONE Stop: 06/21/16 14:37 Finasteride (Proscar -) 5 mg PO DAILY [facility] Last Admin: 06/22/16 09:21 Dose: 5 mg Heparin Sodium (Porcine) (Heparin -) 5,000 unit SQ BID [facility] Last Admin: 06/22/16 09:20 Dose: 5,000 unit Insulin Aspart (Novolog Vial Sliding Scale -) 1 vial SQ ACHS [facility] PRN Reason: Protocol Last Admin: 06/22/16 06:25 Dose: Not Given Insulin Detemir (Levemir Vial) 20 units SQ BID@0700,2200 [facility] Last Admin: 06/22/16 06:23 Dose: 20 units Metoprolol Succinate (Toprol Xl -) 50 mg PO DAILY [facility] Last Admin: 06/22/16 09:20 Dose: 50 mg Tamsulosin HCl (Flomax -) 0.4 mg PO DAILY@0830 [facility] Last Admin: 06/22/16 08:29 Dose: 0.4 mg a/p pneumonia- HAP, vanco given, continue cefepime, fevers down, wbc improved shiley was removed, f/u blood cultures ISA remains on HD enterococcal UTI/sepsis secondary to UTI severe anemia diabetes out of control- hgbaic of 15.9!
--- NOTE | 2016-06-22 12:03 | PN ---
Progress Note, Physician Chief Complaint: Patient seen in his room, on his bed. Maintains good urine output. Advanced azotemia persists. Had uneventful HD yesterday through venous cath. The catheter was removed after dialysis yesterday. No specific complaints. - Current Medication List Current Medications: Active Medications Acetaminophen (Tylenol -) 650 mg PO Q4H PRN PRN Reason: FEVER OR PAIN Last Admin: 06/21/16 05:48 Dose: 650 mg Albuterol Sulfate (Ventolin Hfa Inhaler -) 2 puff IH Q6H PRN PRN Reason: SHORT OF BREATH/WHEEZING Amlodipine Besylate (Norvasc -) 10 mg PO DAILY [facility] Last Admin: 06/22/16 09:20 Dose: 10 mg Calcitriol (Rocaltrol -) 0.25 mcg PO DAILY [facility] Last Admin: 06/22/16 09:21 Dose: 0.25 mcg Calcium Acetate (Phoslo -) 1,334 mg PO TIDCM [facility] Last Admin: 06/22/16 08:29 Dose: 1,334 mg Cefepime HCl (Maxipime 1gm Ivpb Pre-Docked) 1 gm IVPB DAILY [facility] PRN Reason: Protocol Last Admin: 06/22/16 09:19 Dose: 1 gm Cholecalciferol (Vitamin D3 -) 2,000 unit PO DAILY [facility] Last Admin: 06/22/16 09:20 Dose: 2,000 unit Finasteride (Proscar -) 5 mg PO DAILY [facility] Last Admin: 06/22/16 09:21 Dose: 5 mg Heparin Sodium (Porcine) (Heparin -) 5,000 unit SQ BID [facility] Last Admin: 06/22/16 09:20 Dose: 5,000 unit Insulin Aspart (Novolog Vial Sliding Scale -) 1 vial SQ ACHS [facility] PRN Reason: Protocol Last Admin: 06/22/16 11:34 Dose: 4 units Insulin Detemir (Levemir Vial) 20 units SQ BID@0700,2200 [facility] Last Admin: 06/22/16 06:23 Dose: 20 units Metoprolol Succinate (Toprol Xl -) 50 mg PO DAILY [facility] Last Admin: 06/22/16 09:20 Dose: 50 mg Tamsulosin HCl (Flomax -) 0.4 mg PO DAILY@0830 [facility] Last Admin: 06/22/16 08:29 Dose: 0.4 mg - Objective Vital Signs: Vital Signs Temperature 99.6 F 06/22/16 06:00 Pulse Rate 99 H 06/22/16 02:00 Respiratory Rate 20 06/22/16 02:00 Blood Pressure 106/50 06/22/16 02:00 O2 Sat by Pulse Oximetry (%) 98 06/21/16 21:00 Constitutional: Yes: No Distress, Anxious Eyes: Yes: WNL HENT: Yes: Normocephalic Neck: Yes: Trachea Midline Cardiovascular: Yes: Regular Rate and Rhythm, S1, S2 Respiratory: Yes: CTA Bilaterally, Poor Air Entry Gastrointestinal: Yes: Normal Bowel Sounds, Soft Musculoskeletal: Yes: Back Pain Neurological: Yes: Alert, Oriented Labs: CBC, BMP 06/22/16 06:20 06/22/16 06:20 INR, PTT INR 1.34 (0.82-1.09) H 06/17/16 04:30 Problem List - Problems (1) Anemia Code(s): D64.9 - ANEMIA, UNSPECIFIED Qualifiers: (2) CHF (congestive heart failure) Code(s): I50.9 - HEART FAILURE, UNSPECIFIED (3) COPD (chronic obstructive pulmonary disease) Code(s): J44.9 - CHRONIC OBSTRUCTIVE PULMONARY DISEASE, UNSPECIFIED (4) Diabetes 1.5, managed as type 1 Code(s): E13.9 - OTHER SPECIFIED DIABETES MELLITUS WITHOUT COMPLICATIONS (5) Renal failure Code(s): N19 - UNSPECIFIED KIDNEY FAILURE (6) Urinary retention Code(s): R33.9 - RETENTION OF URINE, UNSPECIFIED (7) Diabetes Code(s): E11.9 - TYPE 2 DIABETES MELLITUS WITHOUT COMPLICATIONS Qualifiers: Diabetes mellitus type: type 2 Diabetes mellitus complication status: with hyperglycemia Diabetes mellitus long-term insulin use: unspecified long-term insulin use status Qualified Code(s): E11.65 - Type 2 diabetes mellitus with hyperglycemia; Z79.4 - residential (current) use of insulin (8) HTN (hypertension) Code(s): I10 - ESSENTIAL (PRIMARY) HYPERTENSION (9) End stage kidney disease Code(s): N18.6 - END STAGE RENAL DISEASE Assessment/Plan Patient with advanced Renal failure. CKD V /ESRD. Dialysis dependent. Will require placement of Permanent Vascular access for dialysis. For possible placement of Permacath and/? AVF early next week. Will also require referral to outpatient HD unit. Thank you. Chichi Garcia MD
[2016-06-22] MEDS ORDERED: EPOETIN ALFA 20,000 UNIT/1 ML VIAL SQ ONE (12:13)
--- NOTE | 2016-06-22 15:19 | PN ---
Progress Note (short form) - Note Progress Note: PULMONARY CHART REVIEWED APPEARS COMFORTABLE/NOT SOB VSS LOW GRADE TEMP ANICTERIC DISTANT BREATH SOUNDS/SCATTERED RHONCHI RIGHT BASE RSR BS+ SOFT NO EDEMA LABS/MEDS/NOTES/IMAGING REVIEWED Acute on Chronic Renal Failure requiring emergent HD Hyperkalemia resolved Profound Metabolic Acidosis improved UTI Acute Respiratory Distress requiring NIPPV resolving HTN DM BPH ANEMIA - HD per renal/permacath - monitor urine output, creatinine - monitor lytes - continue antibiotics - BiPAP as needed to assist in work of breathing - DVT/GI prophylaxis - monitor on floor Darien CADENA MD
[2016-06-22] MEDS ORDERED: MAGNESIUM OXIDE 400 MG TABLET (FP) PO ONE (15:47)
--- NOTE | 2016-06-22 15:47 | PN ---
Progress Note (short form) - Note Progress Note: currently asymptomatic. denies CP, SOB,fever, chills, cough, N/V/C/D. having loose stools Current Medications Generic Name Dose Route Start Last Admin Trade Name Freq PRN Reason Stop Dose Admin Acetaminophen 650 mg 06/21/16 00:16 06/21/16 05:48 Tylenol - PO 650 mg Q4H PRN Administration FEVER OR PAIN Albuterol Sulfate 2 puff 06/21/16 00:16 Ventolin Hfa Inhaler - IH Q6H PRN SHORT OF BREATH/WHEEZING Amlodipine Besylate 10 mg 06/21/16 10:00 06/22/16 09:20 Norvasc - PO 10 mg DAILY [facility] Administration Calcitriol 0.25 mcg 06/21/16 10:00 06/22/16 09:21 Rocaltrol - PO 0.25 mcg DAILY [facility] Administration Calcium Acetate 1,334 mg 06/21/16 08:00 06/22/16 12:43 Phoslo - PO 1,334 mg TIDCM [facility] Administration Cefepime HCl 1 gm 06/21/16 16:30 06/22/16 09:19 Maxipime 1gm Ivpb Pre-Docked IVPB 1 gm DAILY [facility] Administration Protocol Cholecalciferol 2,000 unit 06/21/16 10:00 06/22/16 09:20 Vitamin D3 - PO 2,000 unit DAILY [facility] Administration Finasteride 5 mg 06/21/16 10:00 06/22/16 09:21 Proscar - PO 5 mg DAILY [facility] Administration Heparin Sodium (Porcine) 5,000 unit 06/21/16 10:00 06/22/16 09:20 Heparin - SQ 5,000 unit BID [facility] Administration Insulin Aspart 1 vial 06/21/16 07:00 06/22/16 11:34 Novolog Vial Sliding Scale - SQ 4 units ACHS [facility] Administration Protocol Insulin Detemir 20 units 06/21/16 07:00 06/22/16 06:23 Levemir Vial SQ 20 units BID@0700,2200 [facility] Administration Metoprolol Succinate 50 mg 06/21/16 10:00 06/22/16 09:20 Toprol Xl - PO 50 mg DAILY [facility] Administration Tamsulosin HCl 0.4 mg 06/21/16 08:30 06/22/16 08:29 Flomax - PO 0.4 mg DAILY@0830 [facility] Administration Last Vital Signs Temp Pulse Resp BP Pulse Ox 99.3 F 90 18 150/80 97 06/22/16 14:15 06/22/16 14:15 06/22/16 14:15 06/22/16 14:15 06/22/16 10:00 General NAD CV S1 S2 RRR no murmur/rub/gallop Lungs CTA B/L no wheezing/rales/rhonchi Abdomen sfot NT/ND Extremities no edema CBCD WBC 13.5 K/mm3 (4.0-10.0) H 06/22/16 06:20 RBC 2.98 M/mm3 (4.00-5.60) L 06/22/16 06:20 Hgb 7.5 GM/dL (11.7-16.9) L 06/22/16 06:20 Hct 22.8 % (35.4-49) L 06/22/16 06:20 MCV 76.3 fl (80-96) L 06/22/16 06:20 MCHC 32.8 g/dl (32.0-35.9) 06/22/16 06:20 RDW 15.7 % (11.9-15.9) 06/22/16 06:20 Plt Count 154 K/MM3 (134-434) 06/22/16 06:20 MPV 7.7 fl (7.5-11.1) 06/22/16 06:20 CMP Sodium 137 mmol/L (136-145) 06/22/16 06:20 Potassium 3.2 mmol/L (3.5-5.1) L 06/22/16 06:20 Chloride 100 mmol/L (98-107) 06/22/16 06:20 Carbon Dioxide 26 mmol/L (21-32) 06/22/16 06:20 Anion Gap 11 (8-16) 06/22/16 06:20 BUN 66 mg/dL (7-18) H 06/22/16 06:20 Creatinine 5.9 mg/dL (0.7-1.3) H 06/22/16 06:20 Creat Clearance w eGFR 7.79 (>60) 06/21/16 05:35 Calcium 6.3 mg/dL (8.5-10.1) L* 06/22/16 06:20 Total Bilirubin 0.3 mg/dL (0.2-1.0) 06/21/16 05:35 AST 14 U/L (15-37) L 06/21/16 05:35 ALT 12 U/L (12-78) 06/21/16 05:35 Alkaline Phosphatase 78 U/L (45-117) 06/21/16 05:35 Total Protein 5.5 g/dl (6.4-8.2) L 06/21/16 05:35 Albumin 1.8 g/dl (3.4-5.0) L 06/22/16 06:20 66yo M with PMH PMhx of CKD (Cr was 3 in January), Hypertension, CAD, IDDM, BPH who presented to the ED and was admitted for further evaluation of their emergent condition 1. Severe Sepsis due to UTI and developing PNA-afebrile 24H, leukocytosis trending down. HD catheter was suspected as source (present x5D), removed yesterday after HD. cx NGTD. CXR with RLL. received vanco x1 and now on cefipime. will cont for now. ID following. start lactobacillus 2. Acute toxic/metabolic encephalopathy- due to uremia. s/p HD x2 sessions. clinically improved, 3. Acute on CKD- likely due to obstructive. hx of BPH. s/p emergent HD. is likely approaching chronic HD. will consult vascular for permacath placement and fistual formation on friday. maintain joyner. on flomax/proscar. start nephro -vit 4. Buttock wound- evaluated by surgery. no indication for I&D. 5. microcytic anemia-s/p 2 units PRBC this hospitalization. low concern for hemolytic anemia. appears to be anemia of chronic disease. remaining stable. txn for hgb <7. 6. DM- A1c 15.9. controlled here. iss, bgm. hold oral agents 7. Hypocalcemia- Corrected ca 8.1 cont oral supplementation. 8. hyperkalemia- now hypokalemic. Kcl 40meq 9. hypomagnesemia- Mg 800mg 10. stage 2 pressure ulcer- offloading. wound care 11. DVT ppx- hep sq 12. PT eval. may benefit from YOMAIRA on discharge Visit type - Emergency Visit Emergency Visit: Yes ED Registration Date: 06/17/16 Care time: The patient presented to the Emergency Department on the above date and was hospitalized for further evaluation of their emergent condition. - New Patient This patient is new to me today: No - Critical Care Critical Care patient: No - Discharge Referral Referred to [facility] No
[2016-06-22] MEDS: CALCIUM CARBONATE 650 MG TABLET PO SCH (21:16)
[2016-06-23] MEDS: INSULIN DETEMIR 100 UNITS/ML MDV SQ SCH ×2 (06:27→22:11)
[2016-06-23] MEDS: INSULIN SLIDING SCALE (NOVOLOG) 1 VIAL SQ SCH ×4 (06:27→22:16)
[2016-06-23 07:27] LABS: BASOPHIL 0.8 % (0-2.0); EOSINOPHIL 1.9 % (0-4.5); MCH 24.9 pg (25.7-33.7); MCHC 32.2 g/dl (32.0-35.9); MEAN CELL VOLUME 77.1 fl (80-96); MEAN PLT VOLUME 7.5 fl (7.5-11.1); PLATELET COUNT 167 K/MM3 (134-434); RDW 15.6 % (11.9-15.9); WHITE BLOOD COUNT 11.9 K/mm3 (4.0-10.0)
[2016-06-23 08:18] LABS: ALBUMIN 1.8 g/dl (3.4-5.0); MAGNESIUM 1.7 mg/dL (1.8-2.4)
[2016-06-23 08:21] LABS: BILIRUBIN,TOTAL 0.3 mg/dL (0.2-1.0); CREATININE 6.7 mg/dL (0.7-1.3); PHOSPHOROUS 4.4 mg/dL (2.5-4.9); TOT PROT 5.6 g/dl (6.4-8.2)
[2016-06-23 08:27] LABS: CALCIUM 6.6 mg/dL (8.5-10.1)
[2016-06-23] MEDS: CALCIUM ACETATE 667 MG CAPSULE (FP) PO SCH ×3 (08:51→16:52)
[2016-06-23] MEDS: TAMSULOSIN HCL 0.4 MG CAP.ER.24H (FP) PO SCH (08:53)
[2016-06-23] MEDS: VITAMIN B COMP W-C 1 EA TABLET PO SCH (10:17)
[2016-06-23] MEDS: FINASTERIDE 5 MG TABLET (FP) PO SCH (10:17)
[2016-06-23] MEDS: CEFEPIME 1 GM/100 ML BAG PRE-DOCKED IVPB SCH (10:17)
[2016-06-23] MEDS: CALCITRIOL 0.25 MCG CAPSULE (FP) PO SCH (10:18)
[2016-06-23] MEDS: METOPROLOL SUCCINATE 50 MG TAB.SR.24H (FP) PO SCH (10:21)
[2016-06-23] MEDS: CHOLECALCIFEROL (VITAMIN D3) 1,000 UNIT TABLET (FP) PO SCH (10:22)
[2016-06-23] MEDS: amLODIPine BESYLATE 10 MG TABLET (FP) PO SCH (10:22)
[2016-06-23] MEDS: HEPARIN NA (PORCINE) 5,000 UNITS/ML 1ML VIAL SQ SCH ×2 (10:22→22:35)
[2016-06-23] MEDS: CALCIUM CARBONATE 650 MG TABLET PO SCH ×2 (10:22→22:17)
[2016-06-23] MEDS ORDERED: PT OWN MED DRAWER 7, Y5N ONE (10:52)
[2016-06-23] MEDS ORDERED: INSULIN (NOVOLOG) ASPART 100 UNITS/ML 10ML VIAL ONE (10:52)
--- NOTE | 2016-06-23 11:27 | PN ---
Progress Note, Physician Chief Complaint: Patient seen in his room, on his bed. Maintains good urine output. Advanced azotemia persists. Patient not expected to recover renal functions anymore. Should continue [employer]. Scheduled for Permacath placement in AM Should also consider placement of an AVF. - Current Medication List Current Medications: Active Medications Acetaminophen (Tylenol -) 650 mg PO Q4H PRN PRN Reason: FEVER OR PAIN Last Admin: 06/21/16 05:48 Dose: 650 mg Albuterol Sulfate (Ventolin Hfa Inhaler -) 2 puff IH Q6H PRN PRN Reason: SHORT OF BREATH/WHEEZING Amlodipine Besylate (Norvasc -) 10 mg PO DAILY [facility] Last Admin: 06/23/16 10:22 Dose: 10 mg Calcitriol (Rocaltrol -) 0.25 mcg PO DAILY [facility] Last Admin: 06/23/16 10:18 Dose: 0.25 mcg Calcium Acetate (Phoslo -) 1,334 mg PO TIDCM [facility] Last Admin: 06/23/16 08:51 Dose: 1,334 mg Calcium Carbonate (Calcium Carbonate -) 650 mg PO BID [facility] Last Admin: 06/23/16 10:22 Dose: 650 mg Cefepime HCl (Maxipime 1gm Ivpb Pre-Docked) 1 gm IVPB DAILY [facility] PRN Reason: Protocol Last Admin: 06/23/16 10:17 Dose: 1 gm Cholecalciferol (Vitamin D3 -) 2,000 unit PO DAILY [facility] Last Admin: 06/23/16 10:22 Dose: 2,000 unit Finasteride (Proscar -) 5 mg PO DAILY [facility] Last Admin: 06/23/16 10:17 Dose: 5 mg Heparin Sodium (Porcine) (Heparin -) 5,000 unit SQ BID [facility] Last Admin: 06/23/16 10:22 Dose: 5,000 unit Insulin Aspart (Novolog Vial Sliding Scale -) 1 vial SQ ACHS [facility] PRN Reason: Protocol Last Admin: 06/23/16 06:27 Dose: Not Given Insulin Aspart (Novolog) 10 units SQ ONCE ONE Stop: 06/23/16 21:37 Insulin Detemir (Levemir Vial) 20 units SQ BID@0700,2200 [facility] Last Admin: 06/23/16 06:27 Dose: 20 units Metoprolol Succinate (Toprol Xl -) 50 mg PO DAILY [facility] Last Admin: 06/23/16 10:21 Dose: 50 mg Multivit/Ca Carb/B Cmplx/FA/Prenat (Nephro-Rebecca -) 1 tablet PO DAILY [facility] Last Admin: 06/23/16 10:17 Dose: 1 tablet Tamsulosin HCl (Flomax -) 0.4 mg PO DAILY@0830 [facility] Last Admin: 06/23/16 08:53 Dose: 0.4 mg - Objective Vital Signs: Vital Signs Temperature 98.2 F 06/23/16 10:00 Pulse Rate 87 06/23/16 10:00 Respiratory Rate 20 06/23/16 10:00 Blood Pressure 144/69 06/23/16 10:00 O2 Sat by Pulse Oximetry (%) 97 06/23/16 09:00 Constitutional: Yes: Well Nourished, Anxious Eyes: Yes: Conjunctiva Clear Neck: Yes: Trachea Midline Cardiovascular: Yes: Regular Rate and Rhythm, S1, S2 Respiratory: Yes: Rhonchi Gastrointestinal: Yes: Normal Bowel Sounds, Soft, Abdomen, Obese Integumentary: Yes: WNL Neurological: Yes: Alert, Oriented Psychiatric: Yes: Alert, Oriented Labs: CBC, BMP 06/23/16 06:45 06/23/16 06:45 INR, PTT INR 1.34 (0.82-1.09) H 06/17/16 04:30 Problem List - Problems (1) Anemia Code(s): D64.9 - ANEMIA, UNSPECIFIED Qualifiers: (2) CHF (congestive heart failure) Code(s): I50.9 - HEART FAILURE, UNSPECIFIED (3) COPD (chronic obstructive pulmonary disease) Code(s): J44.9 - CHRONIC OBSTRUCTIVE PULMONARY DISEASE, UNSPECIFIED (4) Diabetes 1.5, managed as type 1 Code(s): E13.9 - OTHER SPECIFIED DIABETES MELLITUS WITHOUT COMPLICATIONS (5) Renal failure Code(s): N19 - UNSPECIFIED KIDNEY FAILURE (6) Urinary retention Code(s): R33.9 - RETENTION OF URINE, UNSPECIFIED (7) Diabetes Code(s): E11.9 - TYPE 2 DIABETES MELLITUS WITHOUT COMPLICATIONS Qualifiers: Diabetes mellitus type: type 2 Diabetes mellitus complication status: with hyperglycemia Diabetes mellitus fci insulin use: unspecified fci insulin use status Qualified Code(s): E11.65 - Type 2 diabetes mellitus with hyperglycemia; Z79.4 - joint terminal attack controller (current) use of insulin (8) HTN (hypertension) Code(s): I10 - ESSENTIAL (PRIMARY) HYPERTENSION (9) End stage kidney disease Code(s): N18.6 - END STAGE RENAL DISEASE Assessment/Plan Patient with advanced Renal failure. CKD V /ESRD. Dialysis dependent. Will require placement of Permanent Vascular access for dialysis. Scheduled for tomorrow. Will also require referral to outpatient HD unit. Thank you. Chichi Garcia MD
--- NOTE | 2016-06-23 11:53 | PN ---
Progress Note (short form) - Note Progress Note: afebrile good urine output but still requiring dialysis due to poor renal function will need fci dialysis and therefore no shortterm need for TURP would d/c anya on friday Problem List - Problems (1) Urinary retention Code(s): R33.9 - RETENTION OF URINE, UNSPECIFIED
--- NOTE | 2016-06-23 12:52 | PN ---
Progress Note (short form) - Note Progress Note: awake and alert no complaints feels well Vital Signs Period Temp Pulse Resp BP Sys/Vogt Pulse Ox Last 24 Hr 98.2 F-99.5 F 86-93 16-20 144-155/69-85 97-97 cor-rrr lungs decreased bs at bases abd soft,nt ext no edema +joyner CBC, BMP 06/23/16 06:45 06/23/16 06:45 Microbiology 06/21/16 14:40 Blood - Shiley Catheter Blood Culture - Preliminary NO GROWTH OBTAINED AFTER 24 HOURS, INCUBATION TO CONTINUE FOR 4 DAYS. 06/21/16 14:30 Blood - Shiley Catheter Blood Culture - Preliminary NO GROWTH OBTAINED AFTER 24 HOURS, INCUBATION TO CONTINUE FOR 4 DAYS. 06/17/16 10:15 Blood - Shiley Catheter Blood Culture - Final NO GROWTH AFTER 5 DAYS INCUBATION 06/17/16 10:15 Blood - Shiley Catheter Blood Culture - Final NO GROWTH AFTER 5 DAYS INCUBATION 06/19/16 10:00 Stool Salmonella/Shigella Culture - Final 06/19/16 10:00 Stool Campylobacter Culture - Final NO GROWTH OF CAMPYLOBACTER SPECIES OBTAINED 06/19/16 10:00 Stool Yersinia Culture - Final NO GROWTH OF YERSINIA SPECIES OBTAINED 06/19/16 10:00 Stool Vibrio Culture - Final NO GROWTH OF VIBRIO SPECIES OBTAINED 06/19/16 10:00 Stool Escherichia coli 0157 Culture - Final NO GROWTH OF E COLI 0157 OBTAINED 06/17/16 16:45 Hip - Right Gram Stain - Final 06/17/16 16:45 Hip - Right Wound Culture - Final Staphylococcus Epidermidis 06/17/16 10:40 Urine - Urine Joyner Urine Culture - Final Enterococcus Faecalis 06/19/16 10:00 Stool Clostridium difficile Antigen (JADYN) - Final 06/19/16 10:00 Stool Clostridium difficile Toxin Assay - Final cxray with RLL infiltrate Current Medications Acetaminophen (Tylenol -) 650 mg PO Q4H PRN PRN Reason: FEVER OR PAIN Last Admin: 06/21/16 05:48 Dose: 650 mg Albuterol Sulfate (Ventolin Hfa Inhaler -) 2 puff IH Q6H PRN PRN Reason: SHORT OF BREATH/WHEEZING Amlodipine Besylate (Norvasc -) 10 mg PO DAILY [facility] Last Admin: 06/23/16 10:22 Dose: 10 mg Calcitriol (Rocaltrol -) 0.25 mcg PO DAILY [facility] Last Admin: 06/23/16 10:18 Dose: 0.25 mcg Calcium Acetate (Phoslo -) 1,334 mg PO TIDCM [facility] Last Admin: 06/23/16 12:49 Dose: 1,334 mg Calcium Carbonate (Calcium Carbonate -) 650 mg PO BID [facility] Last Admin: 06/23/16 10:22 Dose: 650 mg Cefepime HCl (Maxipime 1gm Ivpb Pre-Docked) 1 gm IVPB DAILY [facility] PRN Reason: Protocol Last Admin: 06/23/16 10:17 Dose: 1 gm Cholecalciferol (Vitamin D3 -) 2,000 unit PO DAILY [facility] Last Admin: 06/23/16 10:22 Dose: 2,000 unit Finasteride (Proscar -) 5 mg PO DAILY [facility] Last Admin: 06/23/16 10:17 Dose: 5 mg Heparin Sodium (Porcine) (Heparin -) 5,000 unit SQ BID [facility] Last Admin: 06/23/16 10:22 Dose: 5,000 unit Insulin Aspart (Novolog Vial Sliding Scale -) 1 vial SQ [facility] PRN Reason: Protocol Last Admin: 06/23/16 11:34 Dose: 4 units Insulin Aspart (Novolog) 10 units SQ ONCE ONE Stop: 06/23/16 21:37 Insulin Detemir (Levemir Vial) 20 units SQ BID@0700,2200 [facility] Last Admin: 06/23/16 06:27 Dose: 20 units Metoprolol Succinate (Toprol Xl -) 50 mg PO DAILY [facility] Last Admin: 06/23/16 10:21 Dose: 50 mg Multivit/Ca Carb/B Cmplx/FA/Prenat (Nephro-Rebecca -) 1 tablet PO DAILY [facility] Last Admin: 06/23/16 10:17 Dose: 1 tablet Tamsulosin HCl (Flomax -) 0.4 mg PO DAILY@0830 [facility] Last Admin: 06/23/16 08:53 Dose: 0.4 mg a/p [id number] improving- cefepime #3 ISA remains on HD- blood cultures negative, no objection to placement of PC in am enterococcal UTI/sepsis secondary to UTI-day #7 antibiotics, redose vanco today severe anemia diabetes out of control- hgbaic of 15.9!
[2016-06-23] MEDS ORDERED: VANCOMYCIN 1 GRAM (PRE-DOCKED) 250 ML IVPB ONE (13:15)
--- NOTE | 2016-06-23 16:15 | PN ---
Progress Note (short form) - Note Progress Note: currently asymptomatic. denies CP, SOB,fever, chills, cough, N/V/C/D. loose stools have stopped Current Medications Generic Name Dose Route Start Last Admin Trade Name Silver PRN Reason Stop Dose Admin Acetaminophen 650 mg 06/21/16 00:16 06/21/16 05:48 Tylenol - PO 650 mg Q4H PRN Administration FEVER OR PAIN Albuterol Sulfate 2 puff 06/21/16 00:16 Ventolin Hfa Inhaler - IH Q6H PRN SHORT OF BREATH/WHEEZING Amlodipine Besylate 10 mg 06/21/16 10:00 06/23/16 10:22 Norvasc - PO 10 mg DAILY [facility] Administration Calcitriol 0.25 mcg 06/21/16 10:00 06/23/16 10:18 Rocaltrol - PO 0.25 mcg DAILY [facility] Administration Calcium Acetate 1,334 mg 06/21/16 08:00 06/23/16 12:49 Phoslo - PO 1,334 mg TIDCM [facility] Administration Calcium Carbonate 650 mg 06/22/16 22:00 06/23/16 10:22 Calcium Carbonate - PO 650 mg BID [facility] Administration Cefepime HCl 1 gm 06/21/16 16:30 06/23/16 10:17 Maxipime 1gm Ivpb Pre-Docked IVPB 1 gm DAILY [facility] Administration Protocol Cholecalciferol 2,000 unit 06/21/16 10:00 06/23/16 10:22 Vitamin D3 - PO 2,000 unit DAILY [facility] Administration Finasteride 5 mg 06/21/16 10:00 06/23/16 10:17 Proscar - PO 5 mg DAILY [facility] Administration Heparin Sodium (Porcine) 5,000 unit 06/21/16 10:00 06/23/16 10:22 Heparin - SQ 5,000 unit BID [facility] Administration Insulin Aspart 1 vial 06/21/16 07:00 06/23/16 11:34 Novolog Vial Sliding Scale - SQ 4 units ACHS [facility] Administration Protocol Insulin Aspart 10 units 06/23/16 21:36 Novolog SQ 06/23/16 21:37 ONCE ONE Insulin Detemir 20 units 06/21/16 07:00 06/23/16 06:27 Levemir Vial SQ 20 units BID@0700,2200 [facility] Administration Metoprolol Succinate 50 mg 06/21/16 10:00 06/23/16 10:21 Toprol Xl - PO 50 mg DAILY [facility] Administration Multivit/Ca Carb/B Cmplx/FA/Prenat 1 tablet 06/23/16 10:00 06/23/16 10:17 Nephro-Rebecca - PO 1 tablet DAILY [facility] Administration Tamsulosin HCl 0.4 mg 06/21/16 08:30 06/23/16 08:53 Flomax - PO 0.4 mg DAILY@0830 [facility] Administration Last Vital Signs Temp Pulse Resp BP Pulse Ox 99.1 F 89 18 123/57 97 06/23/16 14:25 06/23/16 14:25 06/23/16 14:25 06/23/16 14:25 06/23/16 09:00 General NAD CV S1 S2 RRR no murmur/rub/gallop Lungs CTA B/L no wheezing/rales/rhonchi Abdomen sfot NT/ND Extremities no edema CBCD WBC 11.9 K/mm3 (4.0-10.0) H 06/23/16 06:45 RBC 3.06 M/mm3 (4.00-5.60) L 06/23/16 06:45 Hgb 7.6 GM/dL (11.7-16.9) L 06/23/16 06:45 Hct 23.6 % (35.4-49) L 06/23/16 06:45 MCV 77.1 fl (80-96) L 06/23/16 06:45 MCHC 32.2 g/dl (32.0-35.9) 06/23/16 06:45 RDW 15.6 % (11.9-15.9) 06/23/16 06:45 Plt Count 167 K/MM3 (134-434) 06/23/16 06:45 MPV 7.5 fl (7.5-11.1) 06/23/16 06:45 CMP Sodium 137 mmol/L (136-145) 06/23/16 06:45 Potassium 3.3 mmol/L (3.5-5.1) L 06/23/16 06:45 Chloride 100 mmol/L (98-107) 06/23/16 06:45 Carbon Dioxide 25 mmol/L (21-32) 06/23/16 06:45 Anion Gap 12 (8-16) 06/23/16 06:45 BUN 75 mg/dL (7-18) H 06/23/16 06:45 Creatinine 6.7 mg/dL (0.7-1.3) H 06/23/16 06:45 Creat Clearance w eGFR 8.32 (>60) 06/23/16 06:45 Calcium 6.6 mg/dL (8.5-10.1) L* 06/23/16 06:45 Total Bilirubin 0.3 mg/dL (0.2-1.0) 06/23/16 06:45 AST 14 U/L (15-37) L 06/23/16 06:45 ALT 15 U/L (12-78) D 06/23/16 06:45 Alkaline Phosphatase 72 U/L (45-117) 06/23/16 06:45 Total Protein 5.6 g/dl (6.4-8.2) L 06/23/16 06:45 Albumin 1.8 g/dl (3.4-5.0) L 06/23/16 06:45 66yo M with PMH PMhx of CKD (Cr was 3 in January), Hypertension, CAD, IDDM, BPH who presented to the ED and was admitted for further evaluation of their emergent condition 1. Severe Sepsis due to UTI and developing PNA-afebrile 24H, leukocytosis trending down. treating for PNA. on cefipime and vanco by level. 2. Acute toxic/metabolic encephalopathy- due to uremia. s/p HD x2 sessions. clinically improved, 3. Acute on CKD- likely due to obstructive. hx of BPH. s/p emergent HD. is likely approaching chronic HD. NPO for permacath in AM, outpatient HD will need to be arranged. maintain joyner. on flomax/proscar/nephro-vit 4. Buttock wound- evaluated by surgery. no indication for I&D. 5. microcytic anemia-s/p 2 units PRBC this hospitalization. low concern for hemolytic anemia. appears to be anemia of chronic disease. remaining stable. txn for hgb <7. 6. DM- A1c 15.9. controlled here. iss, bgm. hold oral agents 7. Hypocalcemia- Corrected ca 8.4 cont oral supplementation. 8. hyperkalemia- now hypokalemic. Kcl 40meq 9. hypomagnesemia- Mg 2g 10. stage 2 pressure ulcer- offloading. wound care 11. DVT ppx- hep sq 12. PT eval. may benefit from YOMAIRA on discharge Visit type - Emergency Visit Emergency Visit: Yes ED Registration Date: 06/17/16 Care time: The patient presented to the Emergency Department on the above date and was hospitalized for further evaluation of their emergent condition. - New Patient This patient is new to me today: No - Critical Care Critical Care patient: No - Discharge Referral Referred to [facility] No
[2016-06-23] MEDS ORDERED: MAGNESIUM SULF 50% (8.12 MEQ/2 ML-1 GM VIAL) IVPB ONE (16:45)
[2016-06-23] MEDS ORDERED: POTASSIUM CHLORIDE 40 MEQ/30 ML UNIT DOSE CUP PO ONE (17:00)
[2016-06-23] MEDS ORDERED: Insulin (LOG) Aspart 100 UNITS/ML VIAL SQ ONE (21:36)
[2016-06-23] MEDS ORDERED: INSULIN DETEMIR 100 UNITS/ML MDV SQ ONE (22:02)
[2016-06-24] MEDS: INSULIN DETEMIR 100 UNITS/ML MDV SQ SCH ×2 (06:12→21:56)
[2016-06-24] MEDS: INSULIN SLIDING SCALE (NOVOLOG) 1 VIAL SQ SCH ×4 (06:13→21:57)
[2016-06-24 09:15] LABS: ALBUMIN 1.9 g/dl (3.4-5.0)
[2016-06-24 09:25] LABS: BILIRUBIN,TOTAL 0.3 mg/dL (0.2-1.0); CREATININE 7.3 mg/dL (0.7-1.3); TOT PROT 5.8 g/dl (6.4-8.2)
[2016-06-24 09:29] LABS: CALCIUM 6.6 mg/dL (8.5-10.1)
--- NOTE | 2016-06-24 10:04 | PN ---
Progress Note (short form) - Note Progress Note: currently asymptomatic. denies CP, SOB,fever, chills, cough, N/V/C/D. loose stools have stopped Current Medications Generic Name Dose Route Start Last Admin Trade Name Silver PRN Reason Stop Dose Admin Acetaminophen 650 mg 06/21/16 00:16 06/21/16 05:48 Tylenol - PO 650 mg Q4H PRN Administration FEVER OR PAIN Albuterol Sulfate 2 puff 06/21/16 00:16 Ventolin Hfa Inhaler - IH Q6H PRN SHORT OF BREATH/WHEEZING Amlodipine Besylate 10 mg 06/21/16 10:00 06/23/16 10:22 Norvasc - PO 10 mg DAILY [facility] Administration Calcitriol 0.25 mcg 06/21/16 10:00 06/23/16 10:18 Rocaltrol - PO 0.25 mcg DAILY [facility] Administration Calcium Acetate 1,334 mg 06/21/16 08:00 06/23/16 16:52 Phoslo - PO 1,334 mg TIDCM [facility] Administration Calcium Carbonate 650 mg 06/22/16 22:00 06/23/16 22:17 Calcium Carbonate - PO 650 mg BID [facility] Administration Cefepime HCl 1 gm 06/21/16 16:30 06/23/16 10:17 Maxipime 1gm Ivpb Pre-Docked IVPB 1 gm DAILY [facility] Administration Protocol Cholecalciferol 2,000 unit 06/21/16 10:00 06/23/16 10:22 Vitamin D3 - PO 2,000 unit DAILY [facility] Administration Finasteride 5 mg 06/21/16 10:00 06/23/16 10:17 Proscar - PO 5 mg DAILY [facility] Administration Heparin Sodium (Porcine) 5,000 unit 06/21/16 10:00 06/23/16 22:35 Heparin - SQ Not Given BID [facility] Insulin Aspart 1 vial 06/21/16 07:00 06/24/16 06:13 Novolog Vial Sliding Scale - SQ 2 units ACHS [facility] Administration Protocol Insulin Detemir 20 units 06/21/16 07:00 06/24/16 06:12 Levemir Vial SQ Not Given BID@0700,2200 [facility] Metoprolol Succinate 50 mg 06/21/16 10:00 06/23/16 10:21 Toprol Xl - PO 50 mg DAILY [facility] Administration Multivit/Ca Carb/B Cmplx/FA/Prenat 1 tablet 06/23/16 10:00 06/23/16 10:17 Nephro-Rebecca - PO 1 tablet DAILY [facility] Administration Tamsulosin HCl 0.4 mg 06/21/16 08:30 06/23/16 08:53 Flomax - PO 0.4 mg DAILY@0830 [facility] Administration Last Vital Signs Temp Pulse Resp BP Pulse Ox 98.8 F 84 16 149/68 97 06/24/16 02:00 06/24/16 02:00 06/24/16 02:00 06/24/16 02:00 06/23/16 21:00 General NAD CV S1 S2 RRR no murmur/rub/gallop Lungs CTA B/L no wheezing/rales/rhonchi Abdomen sfot NT/ND Extremities no edema CMP Sodium 135 mmol/L (136-145) L 06/24/16 06:15 Potassium 3.8 mmol/L (3.5-5.1) 06/24/16 06:15 Chloride 98 mmol/L (98-107) 06/24/16 06:15 Carbon Dioxide 23 mmol/L (21-32) 06/24/16 06:15 Anion Gap 14 (8-16) 06/24/16 06:15 BUN 86 mg/dL (7-18) H 06/24/16 06:15 Creatinine 7.3 mg/dL (0.7-1.3) H 06/24/16 06:15 Creat Clearance w eGFR 7.54 (>60) 06/24/16 06:15 Calcium 6.6 mg/dL (8.5-10.1) L* 06/24/16 06:15 Total Bilirubin 0.3 mg/dL (0.2-1.0) 06/24/16 06:15 AST 19 U/L (15-37) D 06/24/16 06:15 ALT 17 U/L (12-78) 06/24/16 06:15 Alkaline Phosphatase 68 U/L (45-117) 06/24/16 06:15 Total Protein 5.8 g/dl (6.4-8.2) L 06/24/16 06:15 Albumin 1.9 g/dl (3.4-5.0) L 06/24/16 06:15 66yo M with PMH PMhx of CKD (Cr was 3 in January), Hypertension, CAD, IDDM, BPH who presented to the ED and was admitted for further evaluation of their emergent condition 1. Severe Sepsis due to UTI and developing PNA-afebrile 24H, leukocytosis trending down. treating for PNA. on cefipime and vanco by level. 2. Acute toxic/metabolic encephalopathy- due to uremia. s/p HD x2 sessions. clinically improved, 3. Acute on CKD- likely due to obstructive. hx of BPH. s/p emergent HD. is likely approaching chronic HD. NPO for permacath today, outpatient HD will need to be arranged. maintain joyner. will place call out to Urology as I believe at this time that patient would still benefit from TURP as he will not become anuric for some time as he is new to HD> on flomax/proscar/nephro-vit 4. Buttock wound- evaluated by surgery. no indication for I&D. 5. microcytic anemia-s/p 2 units PRBC this hospitalization. low concern for hemolytic anemia. appears to be anemia of chronic disease. awaiting todays labs. txn for hgb <7. 6. DM- A1c 15.9. controlled here. iss, bgm. hold oral agents 7. Hypocalcemia- Corrected ca 8.4 cont oral supplementation. 8. hyperkalemia- resolved 9. hypomagnesemia- resolved 10. stage 2 pressure ulcer- offloading. wound care 11. DVT ppx- hep sq 12. PT eval. may benefit from YOMAIRA on discharge. plan for D/c tomorrow Visit type - Emergency Visit Emergency Visit: Yes ED Registration Date: 06/17/16 Care time: The patient presented to the Emergency Department on the above date and was hospitalized for further evaluation of their emergent condition. - New Patient This patient is new to me today: No - Critical Care Critical Care patient: No - Discharge Referral Referred to [facility] Med P.C.: No
[2016-06-24] MEDS: VITAMIN B COMP W-C 1 EA TABLET PO SCH (10:46)
[2016-06-24] MEDS: TAMSULOSIN HCL 0.4 MG CAP.ER.24H (FP) PO SCH (10:46)
[2016-06-24] MEDS: CALCIUM CARBONATE 650 MG TABLET PO SCH ×2 (10:46→21:52)
[2016-06-24] MEDS: CALCIUM ACETATE 667 MG CAPSULE (FP) PO SCH ×3 (10:46→17:51)
[2016-06-24] MEDS: CEFEPIME 1 GM/100 ML BAG PRE-DOCKED IVPB SCH (10:46)
[2016-06-24] MEDS: amLODIPine BESYLATE 10 MG TABLET (FP) PO SCH (10:46)
[2016-06-24] MEDS: CHOLECALCIFEROL (VITAMIN D3) 1,000 UNIT TABLET (FP) PO SCH (10:47)
[2016-06-24] MEDS: METOPROLOL SUCCINATE 50 MG TAB.SR.24H (FP) PO SCH ×2 (10:47→12:15)
[2016-06-24] MEDS: CALCITRIOL 0.25 MCG CAPSULE (FP) PO SCH (10:47)
[2016-06-24] MEDS: FINASTERIDE 5 MG TABLET (FP) PO SCH (10:47)
[2016-06-24 11:11] LABS: MCH 24.8 pg (25.7-33.7); MCHC 32.3 g/dl (32.0-35.9); MEAN CELL VOLUME 76.9 fl (80-96); MEAN PLT VOLUME 7.8 fl (7.5-11.1); PLATELET COUNT 181 K/MM3 (134-434); RDW 15.8 % (11.9-15.9); WHITE BLOOD COUNT 12.1 K/mm3 (4.0-10.0)
[2016-06-24] MEDS ORDERED: VANCOMYCIN 500 MG in DEXTROSE 5%-WATER - 250 ML IVPB ONE (11:48)
--- NOTE | 2016-06-24 11:49 | PN ---
Progress Note (short form) - Note Progress Note: Renal Follow up for ISA on CKD Pt seen and examined at the bedside no acute complaints for permacath placement today joyner in place Vital Signs Temperature 98.8 F 06/24/16 02:00 Pulse Rate 84 06/24/16 02:00 Respiratory Rate 16 06/24/16 02:00 Blood Pressure 149/68 06/24/16 02:00 O2 Sat by Pulse Oximetry (%) 97 06/23/16 21:00 Intake & Output 06/21/16 06/22/16 06/23/16 06/24/16 22:59 22:59 23:59 23:59 Intake Total Output Total 1000 Balance -1000 Gen: NAD, awake and alert CVS: RRR, No M/R Lungs: CTA no rales Abd: soft NT/ND Ext: No edema, clubbing or cyanosis : no bladder distension, joyner in place with yellow urine CBC, BMP 06/24/16 07:45 06/24/16 06:15 Laboratory Tests 06/24/16 06:15 Calcium 6.6 L* Albumin 1.9 L Current Medications Acetaminophen (Tylenol -) 650 mg PO Q4H PRN PRN Reason: FEVER OR PAIN Last Admin: 06/21/16 05:48 Dose: 650 mg Albuterol Sulfate (Ventolin Hfa Inhaler -) 2 puff IH Q6H PRN PRN Reason: SHORT OF BREATH/WHEEZING Amlodipine Besylate (Norvasc -) 10 mg PO DAILY [facility] Last Admin: 06/24/16 10:46 Dose: Not Given Calcitriol (Rocaltrol -) 0.25 mcg PO DAILY [facility] Last Admin: 06/24/16 10:47 Dose: Not Given Calcium Acetate (Phoslo -) 1,334 mg PO TIDCM [facility] Last Admin: 06/24/16 10:46 Dose: Not Given Calcium Carbonate (Calcium Carbonate -) 650 mg PO BID [facility] Last Admin: 06/24/16 10:46 Dose: Not Given Cefepime HCl (Maxipime 1gm Ivpb Pre-Docked) 1 gm IVPB DAILY [facility] PRN Reason: Protocol Last Admin: 06/24/16 10:46 Dose: 1 gm Cholecalciferol (Vitamin D3 -) 2,000 unit PO DAILY [facility] Last Admin: 06/24/16 10:47 Dose: Not Given Finasteride (Proscar -) 5 mg PO DAILY [facility] Last Admin: 06/24/16 10:47 Dose: Not Given Heparin Sodium (Porcine) (Heparin -) 5,000 unit SQ BID [facility] Last Admin: 06/23/16 22:35 Dose: Not Given Vancomycin HCl 500 mg/ (Dextrose) 250 mls @ 250 mls/hr IVPB ONCE ONE PRN Reason: Protocol Stop: 06/24/16 12:47 Insulin Aspart (Novolog Vial Sliding Scale -) 1 vial SQ ACHS [facility] PRN Reason: Protocol Last Admin: 06/24/16 06:13 Dose: 2 units Insulin Detemir (Levemir Vial) 20 units SQ BID@0700,2200 [facility] Last Admin: 06/24/16 06:12 Dose: Not Given Metoprolol Succinate (Toprol Xl -) 50 mg PO DAILY [facility] Last Admin: 06/24/16 10:47 Dose: Not Given Multivit/Ca Carb/B Cmplx/FA/Prenat (Nephro-Rebecca -) 1 tablet PO DAILY [facility] Last Admin: 06/24/16 10:46 Dose: Not Given Tamsulosin HCl (Flomax -) 0.4 mg PO DAILY@0830 [facility] Last Admin: 06/24/16 10:46 Dose: Not Given A/P 66 year old Gentleman with PMhx of CKD (Cr was 3 in January), Hypertension, CAD , IDDM, BPH who presented to the ED with complaints of SOB and found to have BUN /Cr of 230/14.5, K of 7.6 and Bicarb of 4. 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
[2016-06-24] MEDS ORDERED: EPOETIN ALFA 2,000 UNITS/1 ML VIAL IVPUSH ONE (11:50)
[2016-06-24] MEDS ORDERED: LIDOCAINE HCL 1%, 10 MG/ML (20ML VIAL) ONE (12:29)
[2016-06-24] MEDS ORDERED: MIDAZOLAM HCL 2 MG/2 ML SINGLE DOSE VIAL ONE ×4 (12:55→13:40)
[2016-06-24] MEDS ORDERED: PROPOFOL 20 ML ONE ×2 (12:59)
[2016-06-24] MEDS ORDERED: LIDOCAINE HCL 1%, 10 MG/ML (20ML VIAL) IJ ONE (13:42)
--- NOTE | 2016-06-24 14:01 | OP ---
Operative Note - Note: Operative Date: 06/24/16 Pre-Operative Diagnosis: ESRD Operation: Insertion of permacath Post-Operative Diagnosis: Same as Pre-op Surgeon: Tonio Longoria Anesthesia: Fractional Estimated Blood Loss (mls): 10 Operative Report Dictated: Yes
--- NOTE | 2016-06-24 14:04 | PN ---
Progress Note (short form) - Note Progress Note: Vascular Surgery S/P permacath placement. Can be DC home today. Please have pt follow up in office for avf placement. Please make appt for pt prior to DC [phone] Tonio Longoria DO
[2016-06-24] MEDS ORDERED: ACETAMINOPHEN 325 MG TABLET (FP) PO PRN (14:09)
[2016-06-24] MEDS ORDERED: ALBUTEROL SO4 6.7 GM HFA INHALER IH PRN (14:09)
--- NOTE | 2016-06-24 15:54 | PN ---
Progress Note, Physician History of Present Illness: Awake, alert No complaints Afebrile S/P catheter insertion - Current Medication List Current Medications: Active Medications Acetaminophen (Tylenol -) 650 mg PO Q4H PRN PRN Reason: FEVER OR PAIN Albuterol Sulfate (Ventolin Hfa Inhaler -) 2 puff IH Q6H PRN PRN Reason: SHORT OF BREATH/WHEEZING Amlodipine Besylate (Norvasc -) 10 mg PO DAILY [facility] Calcitriol (Rocaltrol -) 0.25 mcg PO DAILY [facility] Calcium Acetate (Phoslo -) 1,334 mg PO TIDCM [facility] Calcium Carbonate (Calcium Carbonate -) 650 mg PO BID [facility] Cefepime HCl (Maxipime 1gm Ivpb Pre-Docked) 1 gm IVPB DAILY [facility] PRN Reason: Protocol Cholecalciferol (Vitamin D3 -) 2,000 unit PO DAILY [facility] Epoetin Neftaly (Procrit -) 20,000 unit IVPUSH ONCE ONE Stop: 06/24/16 16:01 Finasteride (Proscar -) 5 mg PO DAILY [facility] Heparin Sodium (Porcine) (Heparin -) 5,000 unit SQ BID [facility] Vancomycin HCl 500 mg/ (Dextrose) 100 mls @ 100 mls/hr IVPB ONCE ONE PRN Reason: Protocol Stop: 06/24/16 16:59 Insulin Aspart (Novolog Vial Sliding Scale -) 1 vial SQ ACHS [facility] PRN Reason: Protocol Insulin Detemir (Levemir Vial) 20 units SQ BID@0700,2200 [facility] Metoprolol Succinate (Toprol Xl -) 50 mg PO DAILY [facility] Multivit/Ca Carb/B Cmplx/FA/Prenat (Nephro-Rebecca -) 1 tablet PO DAILY [facility] Tamsulosin HCl (Flomax -) 0.4 mg PO DAILY@0830 [facility] - Objective Vital Signs: Vital Signs Temperature 97.4 F L 06/24/16 15:25 Pulse Rate 88 06/24/16 15:30 Respiratory Rate 18 06/24/16 15:30 Blood Pressure 132/74 06/24/16 15:30 O2 Sat by Pulse Oximetry (%) 100 06/24/16 14:45 Constitutional: Yes: No Distress Cardiovascular: Yes: Regular Rate and Rhythm, S1, S2 Respiratory: Yes: CTA Bilaterally Gastrointestinal: Yes: Normal Bowel Sounds, Soft. No: Tenderness Labs: CBC, BMP 06/24/16 07:45 06/24/16 06:15 INR, PTT INR 1.34 (0.82-1.09) H 06/17/16 04:30 Assessment/Plan Pneumonia ISA UTI S/P toxic metabolic encephalopathy Continue cefepime Check vanco level am
[2016-06-24] MEDS ORDERED: VANCOMYCIN 500 MG in DEXTROSE 5%-WATER - 100 ML IVPB ONE (16:00)
[2016-06-24] MEDS ORDERED: EPOETIN ALFA 20,000 UNIT/1 ML VIAL IVPUSH ONE (16:00)
[2016-06-24] MEDS: HEPARIN NA (PORCINE) 5,000 UNITS/ML 1ML VIAL SQ SCH (21:52)
[2016-06-25] MEDS: INSULIN SLIDING SCALE (NOVOLOG) 1 VIAL SQ SCH ×4 (06:38→21:29)
[2016-06-25] MEDS: INSULIN DETEMIR 100 UNITS/ML MDV SQ SCH ×2 (06:38→21:30)
[2016-06-25] MEDS ORDERED: INSULIN (NOVOLOG) ASPART 100 UNITS/ML 10ML VIAL ONE (06:57)
[2016-06-25 08:06] LABS: MCH 24.7 pg (25.7-33.7); MEAN PLT VOLUME 7.5 fl (7.5-11.1); PLATELET COUNT 207 K/MM3 (134-434); RDW 15.7 % (11.9-15.9); WHITE BLOOD COUNT 11.3 K/mm3 (4.0-10.0)
[2016-06-25 08:43] LABS: CALCIUM 7.2 mg/dL (8.5-10.1)
[2016-06-25 08:51] LABS: MAGNESIUM 1.9 mg/dL (1.8-2.4); PHOSPHOROUS 3.8 mg/dL (2.5-4.9)
[2016-06-25] MEDS ORDERED: PT OWN MED DRAWER 7, Y5N ONE (09:17)
[2016-06-25] MEDS: CALCIUM ACETATE 667 MG CAPSULE (FP) PO SCH ×3 (09:20→18:06)
[2016-06-25] MEDS: TAMSULOSIN HCL 0.4 MG CAP.ER.24H (FP) PO SCH (09:20)
[2016-06-25] MEDS: CALCITRIOL 0.25 MCG CAPSULE (FP) PO SCH (09:20)
[2016-06-25] MEDS: VITAMIN B COMP W-C 1 EA TABLET PO SCH (09:21)
[2016-06-25] MEDS: HEPARIN NA (PORCINE) 5,000 UNITS/ML 1ML VIAL SQ SCH ×2 (09:21→21:29)
[2016-06-25] MEDS: amLODIPine BESYLATE 10 MG TABLET (FP) PO SCH (09:21)
[2016-06-25] MEDS: CHOLECALCIFEROL (VITAMIN D3) 1,000 UNIT TABLET (FP) PO SCH (09:21)
[2016-06-25] MEDS: CALCIUM CARBONATE 650 MG TABLET PO SCH (09:21)
[2016-06-25] MEDS: METOPROLOL SUCCINATE 50 MG TAB.SR.24H (FP) PO SCH (09:21)
[2016-06-25] MEDS: FINASTERIDE 5 MG TABLET (FP) PO SCH (09:21)
[2016-06-25] MEDS ORDERED: CEFEPIME 1 GM/100 ML BAG PRE-DOCKED IVPB SCH (10:00)
--- NOTE | 2016-06-25 10:09 | PN ---
Progress Note (short form) - Note Progress Note: Renal Follow up for ISA on CKD Pt seen and examined at the bedside no acute complaints s/p dialysis yesterday no sob or chest pain wants to be discharged tomorrow Vital Signs Temperature 99.6 F 06/25/16 06:00 Pulse Rate 88 06/25/16 06:00 Respiratory Rate 16 06/25/16 06:00 Blood Pressure 142/81 06/25/16 06:00 O2 Sat by Pulse Oximetry (%) 95 06/24/16 22:00 Intake & Output 06/22/16 06/23/16 06/24/16 06/25/16 22:59 23:59 23:59 23:59 Intake Total 800 300 Output Total 2330 700 Balance -1530 -400 Gen: NAD, awake and alert CVS: RRR, No M/R Lungs: CTA no rales Abd: soft NT/ND Ext: No edema, clubbing or cyanosis : no bladder distension, joyner in place with yellow urine CBC, BMP 06/25/16 07:40 06/25/16 07:40 Current Medications Acetaminophen (Tylenol -) 650 mg PO Q4H PRN PRN Reason: FEVER OR PAIN Albuterol Sulfate (Ventolin Hfa Inhaler -) 2 puff IH Q6H PRN PRN Reason: SHORT OF BREATH/WHEEZING Amlodipine Besylate (Norvasc -) 10 mg PO DAILY [facility] Last Admin: 06/25/16 09:21 Dose: 10 mg Calcitriol (Rocaltrol -) 0.25 mcg PO DAILY [facility] Last Admin: 06/25/16 09:20 Dose: 0.25 mcg Calcium Acetate (Phoslo -) 1,334 mg PO TIDCM [facility] Last Admin: 06/25/16 09:20 Dose: 1,334 mg Calcium Carbonate (Calcium Carbonate -) 650 mg PO BID [facility] Last Admin: 06/25/16 09:21 Dose: 650 mg Cefepime HCl (Maxipime 1gm Ivpb Pre-Docked) 1 gm IVPB DAILY [facility] PRN Reason: Protocol Last Admin: 06/25/16 09:22 Dose: 1 gm Cholecalciferol (Vitamin D3 -) 2,000 unit PO DAILY [facility] Last Admin: 06/25/16 09:21 Dose: 2,000 unit Finasteride (Proscar -) 5 mg PO DAILY [facility] Last Admin: 06/25/16 09:21 Dose: 5 mg Heparin Sodium (Porcine) (Heparin -) 5,000 unit SQ BID [facility] Last Admin: 06/25/16 09:21 Dose: 5,000 unit Insulin Aspart (Novolog Vial Sliding Scale -) 1 vial SQ ACHS [facility] PRN Reason: Protocol Last Admin: 06/25/16 06:38 Dose: Not Given Insulin Detemir (Levemir Vial) 20 units SQ BID@0700,2200 [facility] Last Admin: 06/25/16 06:38 Dose: 20 units Metoprolol Succinate (Toprol Xl -) 50 mg PO DAILY [facility] Last Admin: 06/25/16 09:21 Dose: 50 mg Multivit/Ca Carb/B Cmplx/FA/Prenat (Nephro-Rebecca -) 1 tablet PO DAILY [facility] Last Admin: 06/25/16 09:21 Dose: 1 tablet Tamsulosin HCl (Flomax -) 0.4 mg PO DAILY@0830 [facility] Last Admin: 06/25/16 09:20 Dose: 0.4 mg A/P 66 year old Gentleman with PMhx of CKD (Cr was 3 in January), Hypertension, CAD , IDDM, BPH who presented to the ED with complaints of SOB and found to have BUN /Cr of 230/14.5, K of 7.6 and Bicarb of 4. #Acute Renal Failure in setting of CKD -> now ESRD on HD s/p dialysis yesterday Outpatient HD unit placement pending next dialysis planned for tomorrow #Anemia will continue high dose WILY with dialysis no acute indication for transfusion #Leukocytosis/Hypothermia/Sepsis/PNA Continue Abx as per ID check vanco levels with HD tomorrow #Hypocalcemia Corrected Ca is 8.88 d/c calcium carboante continue casimiro Vanegas DO
--- NOTE | 2016-06-25 10:12 | OP ---
DATE OF OPERATION: 06/24/2016 PREOPERATIVE DIAGNOSIS: End-stage renal disease. POSTOPERATIVE DIAGNOSIS: End-stage renal disease. PROCEDURE: Insertion of permacath. SURGEON: Tonio Hinson MD ANESTHESIA: Fractional. BLOOD LOSS: 10 mL. INDICATIONS: The patient is a 66-year-old male with end-stage renal disease and needs temporary dialysis catheter placement. Patient was consented for the procedure understanding all risks, benefits, and alternatives, then taken to the operating room. DESCRIPTION OF PROCEDURE: Once in the operating room, he was placed on the operating table in the supine manner. The area of the right neck and catheter and chest was prepped and draped in a sterile surgical manner. We then went ahead and, using ultrasound guidance, visualized the right internal jugular vein and 10 mL of 1% lidocaine was injected there. We then went ahead and used our micropuncture needle and punctured the right IJ, and our micropuncture wire was inserted under fluoroscopy. We then placed our micropuncture sheath, and 0.035 floppy guidewire was then placed under fluoroscopy. We then injected 10 mL of 1% lidocaine above and below the clavicle. Using an 11 blade, a 1-cm incision was made at the puncture site. Using a 15 blade, a 1-cm incision was made below the clavicle. We then tunneled the permacath up to the puncture site. We then placed our breakaway sheath over the guidewire into the vein under fluoroscopy, and the cannula and guidewire were removed. The catheter was then placed inside the sheath. The sheath was broken away as the catheter was placed inside the vein. Neck of the catheter was nice and smooth. Tip of the catheter was located outside the right atrium. We then rita back on each port of the catheter. There was good flow. Heparinized saline was injected and 2000 units of IV heparin were injected into each port. We then went ahead and used 4-0 Biosyn and 1 simple suture placed at the puncture site. A 3-0 nylon was used, and the catheter was attached to the skin. Biopatch, Steri-Strips, 4x4, and Tegaderm were placed. The patient tolerated the procedure with no complications. Patient transferred to PACU in stable condition where a chest x-ray will be obtained. TONIO HINSON DO [id number]
--- NOTE | 2016-06-25 16:18 | PN ---
<Reece Hinds - Last Filed: 06/25/16 16:45> Physical Exam: ATTENDING PHYSICIAN STATEMENT I saw and evaluated the patient. I reviewed the resident's note and discussed the case with the resident. I agree with the resident's findings and plan as documented. SUBJECTIVE: seen and evaluated at the bedside OBJECTIVE: currently having Shlyi placed by vascular attending ASSESSMENT AND PLAN: 66 year old Gentleman with PMhx of CKD (Cr was 3 in January), Hypertension, CAD , IDDM, BPH admitted for acute on chronic renal failure Renal Failure -lungs clear on auscultation -tolerating HD well -now s/p permacath -for outpatient dialysis upon discharge -for voiding trail today obstruction from BPH was a contributing factor Sepsis -urine culture grew entorococcus -completed full course of abx -now being treated with cefepime for possible pneumonia <Abhinav Buck - Last Filed: 06/26/16 22:48> Physical Exam: SUBJECTIVE: Patient seen and examined at bedside. No new complaints. No overnight events. He states he feels much better. Denies CP, JACKSON, SOB, Abd. pain , n/v. OBJECTIVE: Vital Signs Period Temp Pulse Resp BP Sys/Vogt Pulse Ox Last 24 Hr 98.4 F-99.6 F 78-100 16-18 130-146/61-88 95 GENERAL: AAOx3 , NAD HEAD: AT/NC EYES: PERRL, EOMI ENT: moist mucous membranes. NECK: supple no jvd LUNGS: CTA bilat. no wheezing HEART: RRR, N S1S2 ABDOMEN: Soft, NT/ND, normoactive bowel sounds, no guarding, no rebound, no hepatosplenomegaly, no masses. EXTREMITIES: 2+ pulses, warm, well-perfused, no edema. NEUROLOGICAL: Normal speech, gait not observed. PSYCH: Normal mood, normal affect. SKIN: Warm, dry, normal turgor, no rashes or lesions noted Laboratory Results - last 24 hr 06/21/16 06/22/16 06/23/16 23:22 21:13 16:51 WBC RBC Hgb Hct MCV MCHC RDW Plt Count MPV Sodium Potassium Chloride Carbon Dioxide Anion Gap BUN Creatinine POC Glucometer 443 429 294 Random Glucose Calcium Phosphorus Magnesium Random Vancomycin Hep Bs Antigen 06/23/16 06/24/16 06/24/16 21:12 05:34 06:15 WBC RBC Hgb Hct MCV MCHC RDW Plt Count MPV Sodium Potassium Chloride Carbon Dioxide Anion Gap BUN Creatinine POC Glucometer 364 225 Random Glucose Calcium Phosphorus Magnesium Random Vancomycin Hep Bs Antigen Negative 06/24/16 06/24/16 06/24/16 12:11 17:39 21:55 WBC RBC Hgb Hct MCV MCHC RDW Plt Count MPV Sodium Potassium Chloride Carbon Dioxide Anion Gap BUN Creatinine POC Glucometer 198 199 365 Random Glucose Calcium Phosphorus Magnesium Random Vancomycin Hep Bs Antigen 06/25/16 06/25/16 06/25/16 06:37 07:40 07:40 WBC 11.3 H RBC 3.09 L Hgb 7.6 L Hct 23.8 L MCV 77.0 L MCHC 32.0 RDW 15.7 Plt Count 207 MPV 7.5 Sodium 139 Potassium 3.9 Chloride 100 Carbon Dioxide 27 Anion Gap 12 BUN 51 H D Creatinine 5.0 H D POC Glucometer 147 Random Glucose 137 H D Calcium 7.2 L Phosphorus 3.8 Magnesium 1.9 Random Vancomycin Hep Bs Antigen 06/25/16 06/25/16 07:40 12:27 WBC RBC Hgb Hct MCV MCHC RDW Plt Count MPV Sodium Potassium Chloride Carbon Dioxide Anion Gap BUN Creatinine POC Glucometer 183 Random Glucose Calcium Phosphorus Magnesium Random Vancomycin 20.938 Hep Bs Antigen Active Medications Generic Name Dose Route Start Last Admin Trade Name Freq PRN Reason Stop Dose Admin Acetaminophen 650 mg 06/24/16 14:09 Tylenol - PO Q4H PRN FEVER OR PAIN Albuterol Sulfate 2 puff 06/24/16 14:09 Ventolin Hfa Inhaler - IH Q6H PRN SHORT OF BREATH/WHEEZING Amlodipine Besylate 10 mg 06/25/16 10:00 06/25/16 09:21 Norvasc - PO 10 mg DAILY [facility] Administration Calcitriol 0.25 mcg 06/25/16 10:00 06/25/16 09:20 Rocaltrol - PO 0.25 mcg DAILY [facility] Administration Calcium Acetate 1,334 mg 06/24/16 17:30 06/25/16 12:43 Phoslo - PO 1,334 mg TIDCM [facility] Administration Cefepime HCl 1 gm 06/26/16 10:00 Maxipime 1gm Ivpb Pre-Docked IVPB DAILY [facility] Protocol Cholecalciferol 2,000 unit 06/25/16 10:00 06/25/16 09:21 Vitamin D3 - PO 2,000 unit DAILY [facility] Administration Epoetin Neftaly 20,000 units 06/26/16 06:00 Epogen - IVPUSH 06/26/16 06:01 ONCE ONE Finasteride 5 mg 06/25/16 10:00 06/25/16 09:21 Proscar - PO 5 mg DAILY [facility] Administration Heparin Sodium (Porcine) 5,000 unit 06/24/16 22:00 06/25/16 09:21 Heparin - SQ 5,000 unit BID [facility] Administration Vancomycin HCl 1,000 mg/ 250 mls @ 250 mls/hr 06/26/16 09:00 Dextrose IVPB 06/26/16 09:59 ONCE ONE Protocol Insulin Aspart 1 vial 06/24/16 16:30 06/25/16 12:44 Novolog Vial Sliding Scale - SQ Not Given ACHS [facility] Protocol Insulin Detemir 20 units 06/24/16 22:00 06/25/16 06:38 Levemir Vial SQ 20 units BID@0700,2200 [facility] Administration Metoprolol Succinate 50 mg 06/25/16 10:00 06/25/16 09:21 Toprol Xl - PO 50 mg DAILY [facility] Administration Multivit/Ca Carb/B Cmplx/FA/Prenat 1 tablet 06/25/16 10:00 06/25/16 09:21 Nephro-Rebecca - PO 1 tablet DAILY [facility] Administration Tamsulosin HCl 0.4 mg 06/25/16 08:30 06/25/16 09:20 Flomax - PO 0.4 mg DAILY@0830 [facility] Administration ASSESSMENT/PLAN: 66yo M with PMH PMhx of CKD (Cr was 3 in January), Hypertension, CAD, IDDM, BPH admitted for Sepsis 2/2 UTI and Acute on CKD. Now ESRD on HD Problem List - Problems (1) Sepsis secondary to UTI Assessment/Plan: * Continue Cefipime and Vanco as per ID * Vanco levels in AM * Leukocytosis trending down. * Afebrile. * clinically stable. (2) Acute on chronic renal failure Assessment/Plan: * ESRD on HD * Permacath placed yesterday. Wound is C/D/I * need for dialysis tomorrow. * Seen by Dr. Vanegas (3) Metabolic encephalopathy Assessment/Plan: * 2/2 Uremia * s/p HD x2 with significant clinical improvement. (4) Diabetes Assessment/Plan: * ADA diet * BGM ACHS * RISS ACHS * restart oral hypoglycemics upon discharge. (5) DVT prophylaxis Assessment/Plan: * Heparin SQ DISPO: Plan for Discharge tomorrow after HD. Visit type - Emergency Visit Emergency Visit: Yes ED Registration Date: 06/17/16 Care time: The patient presented to the Emergency Department on the above date and was hospitalized for further evaluation of their emergent condition. - New Patient This patient is new to me today: Yes Date on this admission: 06/26/16 - Critical Care Critical Care patient: No
[2016-06-26] MEDS: INSULIN SLIDING SCALE (NOVOLOG) 1 VIAL SQ SCH ×2 (06:05→15:10)
[2016-06-26] MEDS: INSULIN DETEMIR 100 UNITS/ML MDV SQ SCH (06:06)
[2016-06-26] MEDS ORDERED: VANCOMYCIN 1,000 MG in DEXTROSE 5%-WATER - 250 ML IVPB ONE (09:30)
[2016-06-26] MEDS ORDERED: EPOETIN ALFA 20,000 UNIT/1 ML VIAL IVPUSH ONE (09:30)
[2016-06-26] MEDS ORDERED: CEFEPIME 1 GM/100 ML BAG PRE-DOCKED IVPB SCH (10:00)
[2016-06-26 10:57] LABS: MCH 24.3 pg (25.7-33.7); MEAN CELL VOLUME 78.3 fl (80-96); MEAN PLT VOLUME 7.8 fl (7.5-11.1); PLATELET COUNT 217 K/MM3 (134-434); RDW 16.1 % (11.9-15.9); WHITE BLOOD COUNT 11.5 K/mm3 (4.0-10.0)
[2016-06-26 11:20] LABS: PHOSPHOROUS 3.9 mg/dL (2.5-4.9)
[2016-06-26 11:22] LABS: CALCIUM 6.9 mg/dL (8.5-10.1)
--- NOTE | 2016-06-26 11:26 | PN ---
Progress Note, Physician History of Present Illness: Awake, responsive No complaints Denies cough/ chest pain/ dyspnea No c/o dysuria No fever/ chills Leukocytosis improved - Current Medication List Current Medications: Active Medications Acetaminophen (Tylenol -) 650 mg PO Q4H PRN PRN Reason: FEVER OR PAIN Albuterol Sulfate (Ventolin Hfa Inhaler -) 2 puff IH Q6H PRN PRN Reason: SHORT OF BREATH/WHEEZING Amlodipine Besylate (Norvasc -) 10 mg PO DAILY [facility] Last Admin: 06/25/16 09:21 Dose: 10 mg Calcitriol (Rocaltrol -) 0.25 mcg PO DAILY [facility] Last Admin: 06/25/16 09:20 Dose: 0.25 mcg Calcium Acetate (Phoslo -) 1,334 mg PO TIDCM [facility] Last Admin: 06/25/16 18:06 Dose: 1,334 mg Cefepime HCl (Maxipime 1gm Ivpb Pre-Docked) 1 gm IVPB DAILY [facility] PRN Reason: Protocol Cholecalciferol (Vitamin D3 -) 2,000 unit PO DAILY [facility] Last Admin: 06/25/16 09:21 Dose: 2,000 unit Finasteride (Proscar -) 5 mg PO DAILY [facility] Last Admin: 06/25/16 09:21 Dose: 5 mg Heparin Sodium (Porcine) (Heparin -) 5,000 unit SQ BID [facility] Last Admin: 06/25/16 21:29 Dose: 5,000 unit Insulin Aspart (Novolog Vial Sliding Scale -) 1 vial SQ ACHS [facility] PRN Reason: Protocol Last Admin: 06/26/16 06:05 Dose: Not Given Insulin Detemir (Levemir Vial) 20 units SQ BID@0700,2200 [facility] Last Admin: 06/26/16 06:06 Dose: 20 units Metoprolol Succinate (Toprol Xl -) 50 mg PO DAILY [facility] Last Admin: 06/25/16 09:21 Dose: 50 mg Multivit/Ca Carb/B Cmplx/FA/Prenat (Nephro-Rebecca -) 1 tablet PO DAILY [facility] Last Admin: 06/25/16 09:21 Dose: 1 tablet Tamsulosin HCl (Flomax -) 0.4 mg PO DAILY@0830 [facility] Last Admin: 06/25/16 09:20 Dose: 0.4 mg - Objective Vital Signs: Vital Signs Temperature 97.9 F 03/15/17 10:05 Pulse Rate 79 06/26/16 10:40 Respiratory Rate 18 06/26/16 10:40 Blood Pressure 133/73 06/26/16 10:40 O2 Sat by Pulse Oximetry (%) 95 06/25/16 22:00 Constitutional: Yes: No Distress Eyes: Yes: Conjunctiva Clear Cardiovascular: Yes: Regular Rate and Rhythm, S1, S2 Respiratory: Yes: CTA Bilaterally Gastrointestinal: Yes: Normal Bowel Sounds, Soft. No: Tenderness Edema: Yes Labs: CBC, BMP 06/26/16 10:10 INR, PTT INR 1.34 (0.82-1.09) H 06/17/16 04:30 Assessment/Plan Pneumonia RLL clinically, radiographically improved ISA on HD UTI S/P toxic metabolic encephalopathy improved Hospital day #9 Substitute po augmentin 500mg daily x3d (Adjusted for renal failure )
[2016-06-26] MEDS ORDERED: AMOX TR/POT CLAV 500MG/125MG TABLETS (FP) PO SCH (11:30)
[2016-06-26] MEDS ORDERED: TAMSULOSIN HCL 0.4 MG CAP.ER.24H (FP) PO SCH (12:24)
--- NOTE | 2016-06-26 12:24 | PN ---
Progress Note (short form) - Note Progress Note: Renal Follow up for ISA on CKD Pt seen and examined during dialysis BP stable, UF 2L as tolerated Catheter with good function no chest pain or sob for possible discharge today Vital Signs Temperature 97.9 F 06/26/16 10:05 Pulse Rate 78 06/26/16 12:10 Respiratory Rate 18 06/26/16 12:10 Blood Pressure 147/78 06/26/16 12:10 O2 Sat by Pulse Oximetry (%) 95 06/25/16 22:00 Intake & Output 06/23/16 06/24/16 06/25/16 06/26/16 23:59 23:59 23:59 23:59 Intake Total 800 650 485 Output Total 2334 3567 2350 Balance -942 1974 Gen: NAD, awake and alert CVS: RRR, No M/R Lungs: CTA no rales Abd: soft NT/ND Ext: No edema, clubbing or cyanosis : joyner in place CBC, BMP 06/26/16 10:10 06/26/16 10:10 Current Medications Acetaminophen (Tylenol -) 650 mg PO Q4H PRN PRN Reason: FEVER OR PAIN Albuterol Sulfate (Ventolin Hfa Inhaler -) 2 puff IH Q6H PRN PRN Reason: SHORT OF BREATH/WHEEZING Amlodipine Besylate (Norvasc -) 10 mg PO DAILY [facility] Last Admin: 06/25/16 09:21 Dose: 10 mg Amoxicillin/Clavulanate Potassium (Augmentin - 500mg Tablet) 1 tab PO DAILY [facility] Calcitriol (Rocaltrol -) 0.25 mcg PO DAILY [facility] Last Admin: 06/25/16 09:20 Dose: 0.25 mcg Calcium Acetate (Phoslo -) 1,334 mg PO TIDCM [facility] Last Admin: 06/25/16 18:06 Dose: 1,334 mg Cholecalciferol (Vitamin D3 -) 2,000 unit PO DAILY [facility] Last Admin: 06/25/16 09:21 Dose: 2,000 unit Finasteride (Proscar -) 5 mg PO DAILY [facility] Last Admin: 06/25/16 09:21 Dose: 5 mg Heparin Sodium (Porcine) (Heparin -) 5,000 unit SQ BID [facility] Last Admin: 06/25/16 21:29 Dose: 5,000 unit Insulin Aspart (Novolog Vial Sliding Scale -) 1 vial SQ ACHS [facility] PRN Reason: Protocol Last Admin: 06/26/16 06:05 Dose: Not Given Insulin Detemir (Levemir Vial) 20 units SQ BID@0700,2200 [facility] Last Admin: 06/26/16 06:06 Dose: 20 units Metoprolol Succinate (Toprol Xl -) 50 mg PO DAILY [facility] Last Admin: 06/25/16 09:21 Dose: 50 mg Multivit/Ca Carb/B Cmplx/FA/Prenat (Nephro-Rebecca -) 1 tablet PO DAILY [facility] Last Admin: 06/25/16 09:21 Dose: 1 tablet Tamsulosin HCl (Flomax -) 0.4 mg PO DAILY@0830 [facility] Last Admin: 06/25/16 09:20 Dose: 0.4 mg A/P 66 year old Gentleman with PMhx of CKD (Cr was 3 in January), Hypertension, CAD , IDDM, BPH who presented to the ED with complaints of SOB and found to have BUN /Cr of 230/14.5, K of 7.6 and Bicarb of 4. #Acute Renal Failure in setting of CKD -> now ESRD on HD tolerating dialysis well UF as tolerated outpatient HD unit placement pending Failied trial of void -> continue flomax and proscar (increase flomax to 0.8mg daily) #Anemia will continue high dose WILY with dialysis no acute indication for transfusion #Leukocytosis/Hypothermia/Sepsis/PNA on PO Augmentin Dominick Vanegas DO
--- NOTE | 2016-06-26 12:48 | DS ---
Physical Exam: ATTENDING PHYSICIAN STATEMENT I saw and evaluated the patient. I reviewed the resident's note and discussed the case with the resident. I agree with the resident's findings and plan as documented. SUBJECTIVE: seen and evaluated at the bedside OBJECTIVE: currently having Shlyi placed by vascular attending ASSESSMENT AND PLAN: 66 year old Gentleman with PMhx of CKD (Cr was 3 in January), Hypertension, CAD , IDDM, BPH admitted for acute on chronic renal failure Renal Failure -lungs clear on auscultation -tolerating HD well -now s/p permacath -for outpatient dialysis upon discharge -failed voiding trial due to BPH so will discharge with joyner and on tamsulosin and is to follow up with Urologist Sepsis -urine culture grew entorococcus -completed full course of abx -was being treated with cefepime for possible pneumonia and completed 5 day course <Reece Hinds - Last Filed: 06/26/16 14:54> Physical Exam: SUBJECTIVE: Patient seen and examined Pt said he is feeling well ant to go home no fever, no chills no dysuria, no n/v OBJECTIVE: Vital Signs Period Temp Pulse Resp BP Sys/Vogt Pulse Ox Last 24 Hr 97.9 F-99.9 F 70-88 16-20 122-147/60-83 95 PHYSICAL EXAM GENERAL: The patient is awake, alert, and fully oriented, in no acute distress. HEAD: Normal with no signs of trauma. NECK: Trachea midline, full range of motion, supple. LUNGS: diminished bases, right chest dialysis catheter intact HEART: Regular rate and rhythm, S1, S2 without murmur, rub or gallop. ABDOMEN: Soft, nontender, nondistended, normoactive bowel sounds, no guarding, no rebound, no hepatosplenomegaly, no masses. EXTREMITIES: 2+ pulses, warm, well-perfused, b/l lower ext edema 1+ NEUROLOGICAL: Normal speech, gait not observed. SKIN: Warm, dry, normal turgor, no rashes or lesions noted LABS Laboratory Results - last 24 hr 06/25/16 06/25/16 06/25/16 12:27 17:10 21:28 WBC RBC Hgb Hct MCV MCHC RDW Plt Count MPV Sodium Potassium Chloride Carbon Dioxide Anion Gap BUN Creatinine POC Glucometer 183 251 329 Random Glucose Calcium Phosphorus Vancomycin Trough 06/26/16 06/26/16 06/26/16 06:04 06:50 10:10 WBC RBC Hgb Hct MCV MCHC RDW Plt Count MPV Sodium 137 Potassium 4.0 Chloride 99 Carbon Dioxide 26 Anion Gap 12 BUN 64 H D Creatinine 6.0 H POC Glucometer 152 Random Glucose 207 H D Calcium 6.9 L* Phosphorus 3.9 Vancomycin Trough 18.225 H* 06/26/16 06/26/16 10:10 12:04 WBC 11.5 H RBC 2.88 L Hgb 7.0 L Hct 22.6 L MCV 78.3 L MCHC 31.0 L RDW 16.1 H Plt Count 217 MPV 7.8 Sodium Potassium Chloride Carbon Dioxide Anion Gap BUN Creatinine POC Glucometer 198 Random Glucose Calcium Phosphorus Vancomycin Trough HOSPITAL COURSE: Date of Admission:06/17/16 65 yo male with PMHx of HTN, COPD, and CA (01/23/16), hx of chronic UTIs, CKD stage 5 not on HD (Cr was 3 in January), recurrent UTI 2/2 chronic obstructive uropathy BPH, brought in by EMS, do to generalized weakness, lightheadedness and shortness breath on exertion for the past couple of days. The patient reports associated chills and decreased appetite. Patient denies No flank pain, JACKSON, confusion, chest pain, palpitations, LOC, JACKSON, n/v, fever, cough, chills. He also denies changed in bowel or bladder habits. Denies any change in urine output. Pt states that he is not eating well and he is non compliant with all of his meds. ER course was notable for: (1)ABG shows severe metabolic acidosis with respiratory compensation.Pt treated with Lasix 40mg IVPush. (2)Pt's EKG is widened QRS; prolonged QTc (3)given 1g calcium chloride 10% soln slow IVP, as EKG could indicate elevaed K+ given calcium gluconate, insulin and glucose, and albuterol nebulizer treatments. (4)creatinine increased to 4.6. prior (admission 3.0), potassium and is 7.6. (5)ABG which showed a pH of 6.8. given 2 ampules of bicarbonate and renal was called for emergent dialysis. Sepsis from UTI with enteroccus faecalis, was treated with vancomycin and cefepime, sepsis resolved, will be discharged on augmentin 500mg po daily for 3 more days. Acute renal failure. Pt was in severe acute renal failure on admission requiring dialysis, porth-a- cath placed, last diaysis today 06/26/16. Pt will continue outpatient dialysis on friday, friday and Friday. Pt is to follow up with Dr Vanegas, nephrology; Dr Longoria, vascular surgery for AVF placement, appointment made; Dr Lopez, urology, for BPH, voiding failure. Uncontrolled Diabetes. HgbA1c 15.9, will be discharge on Levemir 20U BID and novolog sliding scale. F/u with PCP within 1 week. Date of Discharge: 06/26/16 Minutes to complete discharge: 45 <Harjinder Isaac - Last Filed: 06/26/16 16:18> Discharge Summary Current Active Problems Acute electrocardiogram changes (Acute) Anemia (Acute) CHF (congestive heart failure) (Acute) COPD (chronic obstructive pulmonary disease) (Acute) DVT prophylaxis (Acute) Diabetes 1.5, managed as type 1 (Acute) End stage kidney disease (Acute) Hyperkalemia (Acute) Metabolic encephalopathy (Acute) Renal failure (Acute) SOB (shortness of breath) (Acute) Sepsis (Acute) Sepsis secondary to UTI (Acute) Urinary retention (Acute) - Home Medications Comprehensive Discharge Medication List: Ambulatory Orders Albuterol Sulfate [Proair Respiclick] 90 mcg IH ASDIR PRN 01/24/16 Calcium Carbonate [Calcium] 2 tab.chew PO DAILY 01/24/16 Cholecalciferol (Vitamin D3) [Vitamin D3] 2,000 unit PO DAILY 01/24/16 Finasteride [Proscar] 5 mg PO DAILY 01/24/16 Glipizide 5 mg PO DAILY 01/24/16 Insulin Detemir [Levemir Flextouch] 20 unit SQ BID 01/24/16 Metoprolol Succinate [Toprol XL -] 50 mg PO HS 01/24/16 Tamsulosin HCl [Flomax -] 0.4 mg PO HS 01/24/16 Amlodipine Besylate [Norvasc -] 10 mg PO DAILY #30 tablet 01/26/16 <Reece Hinds - Last Filed: 06/26/16 14:54> Reason For Visit: ACUTE EKG CHANGES SOB ANEMIA Current Active Problems Acute electrocardiogram changes (Acute) Anemia (Acute) CHF (congestive heart failure) (Acute) COPD (chronic obstructive pulmonary disease) (Acute) DVT prophylaxis (Acute) Diabetes 1.5, managed as type 1 (Acute) End stage kidney disease (Acute) Hyperkalemia (Acute) Metabolic encephalopathy (Acute) Renal failure (Acute) SOB (shortness of breath) (Acute) Sepsis (Acute) Sepsis secondary to UTI (Acute) Urinary retention (Acute) - Home Medications Comprehensive Discharge Medication List: Ambulatory Orders Albuterol Sulfate [Proair Respiclick] 90 mcg IH ASDIR PRN 01/24/16 Calcium Carbonate [Calcium] 2 tab.chew PO DAILY 01/24/16 Cholecalciferol (Vitamin D3) [Vitamin D3] 2,000 unit PO DAILY 01/24/16 Finasteride [Proscar] 5 mg PO DAILY 01/24/16 Glipizide 5 mg PO DAILY 01/24/16 Insulin Detemir [Levemir Flextouch] 20 unit SQ BID 01/24/16 Metoprolol Succinate [Toprol XL -] 50 mg PO HS 01/24/16 Tamsulosin HCl [Flomax -] 0.4 mg PO HS 01/24/16 Amlodipine Besylate [Norvasc -] 10 mg PO DAILY #30 tablet 01/26/16 <Harjinder Isaac - Last Filed: 06/26/16 16:18> Condition: Stable - Instructions Diet, Activity, Other Instructions: Discharge home Resume renal and diabetic diet Resume home activity Resume home medication Start Dialysis 2 days per week Friday, Friday and Friday Follow up with Primary care physician within [address] Vanegas, renal within 1 week Please follow up in office of Dr Longoria, Vascular surgery, for avf placement. call [phone] Referrals: Kristopher Bell MD [Staff Physician] - 1 Week Tonio Longoria MD [Staff Physician] - Dominick Vanegas MD [Staff Physician] - Disposition: HOME This patient is new to me today: Yes Date on this admission: 06/26/16 Emergency Visit: Yes ED Registration Date: 06/17/16 Care time: The patient presented to the Emergency Department on the above date and was hospitalized for further evaluation of their emergent condition. Critical Care patient: No - Discharge Referral [facility]erred to [facility] Med [facility].C.: Yes Physician Referral: Tonio Longoria DO ([facility]) <Harjinder Isaac - Last Filed: 06/26/16 16:18>
[2016-06-26 13:43] LABS: ALBUMIN 1.9 g/dl (3.4-5.0)
[2016-06-26] MEDS: CALCITRIOL 0.25 MCG CAPSULE (FP) PO SCH (15:15)
[2016-06-26] MEDS: FINASTERIDE 5 MG TABLET (FP) PO SCH (15:17)
[2016-06-26] MEDS: VITAMIN B COMP W-C 1 EA TABLET PO SCH (15:17)
[2016-06-26] MEDS: METOPROLOL SUCCINATE 50 MG TAB.SR.24H (FP) PO SCH (15:17)
[2016-06-26] MEDS: CHOLECALCIFEROL (VITAMIN D3) 1,000 UNIT TABLET (FP) PO SCH (15:18)
[2016-06-26] MEDS: amLODIPine BESYLATE 10 MG TABLET (FP) PO SCH (15:18)
[2016-06-26] MEDS: CALCIUM ACETATE 667 MG CAPSULE (FP) PO SCH ×2 (15:19)
[2016-06-26] MEDS: HEPARIN NA (PORCINE) 5,000 UNITS/ML 1ML VIAL SQ SCH (15:20)
[2016-06-26] MEDS: TAMSULOSIN HCL 0.4 MG CAP.ER.24H (FP) PO SCH (15:21)
[2016-06-26 15:22] VITALS: BP 135/75; PULSE 96; TEMP 98.3
== END 2016-06-26 16:56 | disposition home health service (06) | DRG 871 ==
LOC: JER 03:56 → UNDOADMIN 07:05 → JERBED 07:05 → JICU 08:57 → J5S 06-21 00:18
PROVIDERS: ADMIT Internal Medicine; ATTEND Internal Medicine
PROC: 30233N1 Transfusion of Nonautologous Red Blood Cells into Peripheral Vein, Percutaneous Approach (ICD-10-PCS; 2016-06-18)
PROC: B214YZZ Fluoroscopy of Right Heart using Other Contrast (ICD-10-PCS; 2016-06-24)
PROC: 02H633Z Insertion of Infusion Device into Right Atrium, Percutaneous Approach (ICD-10-PCS; principal; 2016-06-24 13:00)
PROC: 5A1D60Z (ICD-10-PCS; 2016-06-26)
DX: A41.9 Sepsis, unspecified organism (principal); N18.6 End stage renal disease; J18.9 Pneumonia, unspecified organism; G92 Toxic encephalopathy; I12.0 Hypertensive chronic kidney disease with stage 5 chronic kidney disease or end stage renal disease; N17.9 Acute kidney failure, unspecified; E87.2 Acidosis; N39.0 Urinary tract infection, site not specified; N13.30 Unspecified hydronephrosis; R65.20 Severe sepsis without septic shock; E87.5 Hyperkalemia; N40.0 Benign prostatic hyperplasia without lower urinary tract symptoms; D50.9 Iron deficiency anemia, unspecified; I71.2 Thoracic aortic aneurysm, without rupture; J44.9 Chronic obstructive pulmonary disease, unspecified; I25.10 Atherosclerotic heart disease of native coronary artery without angina pectoris; D72.829 Elevated white blood cell count, unspecified; E83.51 Hypocalcemia; E83.42 Hypomagnesemia; E87.6 Hypokalemia; Z79.4 Long term (current) use of insulin; E83.39 Other disorders of phosphorus metabolism; E11.65 Type 2 diabetes mellitus with hyperglycemia; E11.21 Type 2 diabetes mellitus with diabetic nephropathy; F17.210 Nicotine dependence, cigarettes, uncomplicated; R33.9 Retention of urine, unspecified
CPT/HCPCS: 36415; 36430; 36600; 71010-TC; 76000-TC; 76775-TC; 80048; 80053; 81003; 81015; 82009; 82040; 82375; 82550; 82553; 82570; 82728; 82803; 82947; 83010; 83036; 83050; 83540; 83550; 83605; 83615; 83690; 83735; 83970; 84100; 84155; 84156; 84165; 84466; 84484; 84540; 85025; 85027; 85610; 85730; 86038; 86160; 86162; 86593; 86704; 86706; 86708; 86850; 86900; 86901; 86922; 87040; 87045; 87046; 87070; 87086; 87186; 87205; 87324; 87340; 87389; 87449; 93005; 93010; 94660; 94760; 97116-GP; 97161-GP; 99284-25; G0480; J0885; J1644; P9038; P9058

== ENCOUNTER 2016-08-12 12:44 | Inpatient (IN) | payer OTHER ==
--- NOTE | 2016-08-12 14:09 | PDOC ---
History of Present Illness - General Chief Complaint: Dialysis Shunt Problem Stated Complaint: PAIN, PCP SENT FOR ADMIN Time Seen by Provider: 08/12/16 13:12 - History of Present Illness Initial Comments: 08/12/16 13:58 CHIEF COMPLAINT: sent in by PCP for dialysis shunt problem HISTORY OF PRESENT ILLNESS: 66 yo M with hx of HTN, COPD, and [place] (01/23/16), hx of chronic UTIs, CKD stage 5 (on dialysis) presents to ED with c/o of "I need dialysis." Patient states his last "full dialysis was , I had an hour on Friday." Patient states "I haven't been feeling well because I haven' t been dialyzed." He denies any fever, chills, nausea, vomiting, diarrhea, or pain. He denies headache or chest pain but does report "I did have some shortness of breath before because I wasn't dialyzed. And my legs always get swollen when I don't get dialyzed." No recent travel or sick contacts. PAST MEDICAL HISTORY: Denies past medical history FAMILY HISTORY: Denies SOCIAL HISTORY: Lives at home. Denies tobacco, alcohol, illicit drug use. SURGICAL HISTORY: Denies ALLERGIES: No known drug allergies REVIEW OF SYSTEMS General/Constitutional: Denies fever or chills. Denies weakness, weight change. HEENT: Denies change in vision. Denies ear pain or discharge. Denies sore throat. Cardiovascular: Denies chest pain or shortness of breath. Respiratory: Denies cough, wheezing, or hemoptysis. Gastrointestinal: Denies nausea, vomiting, diarrhea or constipation. Denies rectal bleeding. Genitourinary: Denies dysuria, frequency, or change in urination. Musculoskeletal: Denies joint or muscle swelling or pain. Denies neck or back pain. Skin and breasts: Denies rash or easy bruising. Neurologic: Denies headache, vertigo, loss of consciousness, or loss of sensation PHYSICAL EXAM General Appearance: Well-appearing, appropriately dressed. No apparent distress. HEENT: EOMI, PERRLA, normal ENT inspection, normal voice, TMs normal, pharynx normal. No conjunctival pallor. No photophobia, scleral icterus. Neck: Supple. Trachea midline. No tenderness, rigidity, carotid bruit, stridor , lymphadenopathy, or thyromegaly. Respiratory/Chest: Lungs CTAB. Cardiovascular: RRR. S1, S2. Vascular Pulses: Dorsalis-Pedis (R): 2+, Dorsalis-Pedis (L): 2+ Gastrointestinal/Abdominal: Normal bowel sounds. Abdomen soft, non-distended. No tenderness or rebound tenderness. No organomegaly, pulsatile mass, guarding , hernia, hepatomegaly, splenomegaly. Lymphatic: No adenopathy, tenderness. Musculoskeletal/Extremities: 2+ pitting, edema to lower legs bilaterally, no erythema. FROM of all extremities, normal capillary refill. Pelvis Stable. No CVA tenderness. No tenderness to extremities, pedal edema, swelling, erythema or deformity. Integumentary: Stage 4 decubitis ulcer with tunneling to medial sacrum. Appropriate color, dry, warm. No cyanosis, erythema, jaundice or rash Neurologic: power regulator II-XII intact. Fully oriented, alert. Appropriate mood/affect. Motor strength 5/5. No appreciable EOM palsy, facial droop or sensory deficit. 08/12/16 15:03 Past History - Past Medical History Allergies/Adverse Reactions: Allergies Allergy/AdvReac Type Severity Reaction Status Date / Time No Known Allergies Allergy Verified 08/12/16 13:16 Home Medications: Ambulatory Orders Albuterol Sulfate [Proair Respiclick] 90 mcg IH ASDIR PRN 01/24/16 Cholecalciferol (Vitamin D3) [Vitamin D3] 2,000 unit PO DAILY 01/24/16 Finasteride [Proscar] 5 mg PO DAILY 01/24/16 Glipizide 5 mg PO DAILY 01/24/16 Insulin Detemir [Levemir Flextouch] 20 unit SQ BID 01/24/16 Metoprolol Succinate [Toprol XL -] 50 mg PO HS 01/24/16 Amlodipine Besylate [Norvasc -] 10 mg PO DAILY #30 tablet 01/26/16 Calcium Acetate [Phoslo -] 1,334 mg PO TIDCM #90 06/26/16 Insulin Sliding Scale [Novolog Vial Sliding Scale -] 1 vial SQ ACHS #1 ea Tamsulosin HCl [Flomax -] 0.8 mg PO DAILY@0830 #30 06/26/16 Vitamin B Comp W-C [Nephro-Rebecca -] 1 tablet PO DAILY #30 tablet 06/26/16 Asthma: Yes Cardiac Disorders: Yes (mi january 2016) COPD: Yes Diabetes: Yes (IDDM) Dialysis: Yes (HD TUE,THR,SAT) Disorders: Yes HTN: Yes HIV: Yes - Psycho/Social/Smoking Cessation Hx Anxiety: No Suicidal Ideation: No Smoking History: Former smoker Have you smoked in the past 12 months: Yes Number of Cigarettes Smoked Daily: 20 Information on smoking cessation initiated: Yes 'Breaking Loose' booklet given: 08/12/16 Hx Alcohol Use: No Drug/Substance Use Hx: No Substance Use Type: None Hx Substance Use Treatment: No *Physical Exam - Vital Signs Last Vital Signs Temp Pulse Resp BP Pulse Ox 97.9 F 106 H 20 168/102 97 08/12/16 13:16 08/12/16 13:16 08/12/16 13:16 08/12/16 13:16 08/12/16 13:16 ED Treatment Course - LABORATORY CBC & Chemistry Diagram: 08/12/16 14:00 08/12/16 14:00 - RADIOLOGY Radiology Studies Ordered: Category Date Time Status CHEST X-RAY PORTABLE* [RAD] Stat Radiology 08/12/16 13:26 Ordered Medical Decision Making - Medical Decision Making 08/12/16 15:04 66 yo M with hx of HTN, COPD, and [place] (01/23/16), hx of chronic UTIs, CKD stage 5 (on dialysis) presents to ED with c/o of "I need dialysis." -CBC, CMP, PT/INR, lactic acid -Wound culture -EKG, CXR 08/12/16 15:05 Abnormal Lab Results 08/12/16 08/12/16 08/12/16 14:00 14:00 14:00 WBC 12.7 H Hgb 9.9 L D Hct 33.9 L D MCHC 29.3 L RDW 18.5 H D INR 1.43 H Sodium 125 L Chloride 89 L D Carbon Dioxide 19 L D Anion Gap 17 H BUN 62 H Creatinine 6.2 H Random Glucose 728 H* D Calcium 8.0 L AST 4 L D ALT 10 L D Albumin 2.4 L D Urine Protein Urine Glucose (UA) Urine Blood 08/12/16 14:12 WBC Hgb Hct MCHC RDW INR Sodium Chloride Carbon Dioxide Anion Gap BUN Creatinine Random Glucose Calcium AST ALT Albumin Urine Protein 3+ H Urine Glucose (UA) 3+ H Urine Blood 1+ H Patient noted to be in DKA. Insulin drip ordered. Will admit to ICU. Discussed case with Brenda Stephens and Charly, who accept patient to ICU service. *DC/Admit/Observation/Transfer Diagnosis at time of Disposition: Acute on chronic renal failure, Diabetes 1.5, managed as type 1 - Discharge Dispostion Admit: Yes
[2016-08-12 14:12] LABS: EOSINOPHIL 1.1 % (0-4.5); MCH 23.9 pg (25.7-33.7); MCHC 29.3 g/dl (32.0-35.9); MEAN CELL VOLUME 81.6 fl (80-96); MEAN PLT VOLUME 7.9 fl (7.5-11.1); NEUTROPHILS 63.1 % (42.8-82.8); PLATELET COUNT 282 K/MM3 (134-434); RDW 18.5 % (11.9-15.9); WHITE BLOOD COUNT 12.7 K/mm3 (4.0-10.0)
[2016-08-12 14:31] LABS: ALBUMIN 2.4 g/dl (3.4-5.0); BILIRUBIN,TOTAL 0.2 mg/dL (0.2-1.0); COCKROFT - GAULT 16.5; CREATININE 6.2 mg/dL (0.7-1.3); TOT PROT 6.8 g/dl (6.4-8.2)
[2016-08-12 14:36] LABS: INR 1.43 (0.82-1.09); PROTHROMBIN TIME (PATIENT) 15.8 SEC (9.98-11.88)
[2016-08-12 14:38] LABS: ACTIVATED PTT 28.8 SECONDS (26.9-34.4)
[2016-08-12] MEDS ORDERED: INSULIN REGULAR HUMAN 100 UNITS/ML *VIAL IVPUSH ONE (14:42)
[2016-08-12] MEDS ORDERED: INSULIN REGULAR 100 UNITS in SODIUM CHLORIDE 99 ML IVPB SCH (14:45)
[2016-08-12 14:51] LABS: URINE APPEARANCE CLEAR; URINE BILIRUBIN NEGATIVE (NEGATIVE); URINE COLOR STRAW; URINE GLUCOSE (UA) 3+ (NEGATIVE); URINE KETONE NEGATIVE (NEGATIVE); URINE LEUK ESTERASE NEGATIVE (NEGATIVE); URINE NITRITE NEGATIVE (NEGATIVE); URINE UROBILINOGEN NEGATIVE E.U./dl (0.2-1.0)
[2016-08-12] MEDS ORDERED: INSULIN REGULAR HUMAN 100 UNITS/ML *VIAL ONE (14:51)
[2016-08-12 14:52] LABS: URINE BLOOD 1+ (NEGATIVE); URINE PROTEIN 3+ (NEGATIVE)
[2016-08-12 14:53] LABS: URINE RBC 6 /hpf (0-3); URINE WBC 8 /hpf (3-5)
[2016-08-12 15:31] LABS: VENOUS BLOOD GAS HCO3 19.1 meq/L (19-25); VENOUS PH 7.29 (7.32-7.42)
--- NOTE | 2016-08-12 15:41 | CONSULT ---
Consult Consult Specialty:: Nephrology (Drs. Garcia/ Guilherme) Reason for Consultation:: Patient has ESRD, admitted with clotted Permacath and Hyperglycemia - History of Present Illness History of Present Illness: Patient has ESRD. The last HD was on Friday, when he got only 1 hour of dialysis. His full dialysis was 5 days ago. Patient has profound Hyperglycemia also. The patient has Hypertension, ESRD, CAD, CHF, Extreme non-compliance Had been refusing to have AVF created. Patient's dietary habits are unhealthy. 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 Cardio/Vascular: Yes: HTN Pulmonary: Yes: COPD Renal/: Yes: Renal Inusuff Endocrine: Yes: Diabetes Mellitus - Alcohol/Substance Use Hx Alcohol Use: No - Smoking History Smoking history: Former smoker Have you smoked in the past 12 months: Yes Aproximately how many cigarettes per day: 20 - Social History Usual Living Arrangement: Other (WITH BROTHER) ADL: Independent Home Medications - Allergies Allergies/Adverse Reactions: Allergies Allergy/AdvReac Type Severity Reaction Status Date / Time No Known Allergies Allergy Verified 08/12/16 13:16 - Home Medications Home Medications: Ambulatory Orders Albuterol Sulfate [Proair Respiclick] 90 mcg IH ASDIR PRN 01/24/16 Cholecalciferol (Vitamin D3) [Vitamin D3] 2,000 unit PO DAILY 01/24/16 Finasteride [Proscar] 5 mg PO DAILY 01/24/16 Glipizide 5 mg PO DAILY 01/24/16 Insulin Detemir [Levemir Flextouch] 20 unit SQ BID 01/24/16 Metoprolol Succinate [Toprol XL -] 50 mg PO HS 01/24/16 Amlodipine Besylate [Norvasc -] 10 mg PO DAILY #30 tablet 01/26/16 Calcium Acetate [Phoslo -] 1,334 mg PO TIDCM #90 06/26/16 Insulin Sliding Scale [Novolog Vial Sliding Scale -] 1 vial SQ ACHS #1 ea Tamsulosin HCl [Flomax -] 0.8 mg PO DAILY@0830 #30 06/26/16 Vitamin B Comp W-C [Nephro-Rebecca -] 1 tablet PO DAILY #30 tablet 06/26/16 Review of Systems - Review of Systems Constitutional: reports: Malaise, Weakness Eyes: reports: No Symptoms HENT: reports: No Symptoms Neck: reports: No Symptoms Cardiovascular: reports: Edema, Shortness of Breath. denies: Chest Pain Respiratory: reports: Cough, Orthopnea, PND, SOB on Exertion Gastrointestinal: reports: Abdominal Pain Neurological: reports: Numbness Physical Exam Vital Signs: Vital Signs Temperature 97.9 F 08/12/16 13:16 Pulse Rate 106 H 08/12/16 13:16 Respiratory Rate 20 08/12/16 13:16 Blood Pressure 168/102 08/12/16 13:16 O2 Sat by Pulse Oximetry (%) 97 08/12/16 13:16 Constitutional: Yes: Well Nourished, Anxious Eyes: Yes: WNL HENT: Yes: Atraumatic Neck: Yes: Supple Cardiovascular: Yes: Regular Rate and Rhythm, S1, S2 Respiratory: Yes: Regular, Diminished, SOB on Exertion Gastrointestinal: Yes: Normal Bowel Sounds, Abdomen, Obese Musculoskeletal: Yes: WNL Edema: Yes Edema: LLE: 2+, RLE: 2+ Neurological: Yes: Alert, Oriented Labs: CBC, BMP 08/12/16 14:00 08/12/16 14:00 Problem List - Problems (1) Anemia Code(s): D64.9 - ANEMIA, UNSPECIFIED Qualifiers: (2) CHF (congestive heart failure) Code(s): I50.9 - HEART FAILURE, UNSPECIFIED (3) COPD (chronic obstructive pulmonary disease) Code(s): J44.9 - CHRONIC OBSTRUCTIVE PULMONARY DISEASE, UNSPECIFIED (4) Diabetes Code(s): E11.9 - TYPE 2 DIABETES MELLITUS WITHOUT COMPLICATIONS Qualifiers: Diabetes mellitus type: type 2 Diabetes mellitus complication status: with hyperglycemia Diabetes mellitus long winder tender insulin use: unspecified mcfp insulin use status Qualified Code(s): E11.65 - Type 2 diabetes mellitus with hyperglycemia; Z79.4 - exterminator (current) use of insulin (5) End stage kidney disease Code(s): N18.6 - END STAGE RENAL DISEASE (6) HTN (hypertension) Code(s): I10 - ESSENTIAL (PRIMARY) HYPERTENSION (7) Hyperglycemia Code(s): R73.9 - HYPERGLYCEMIA, UNSPECIFIED Assessment/Plan 66 y/o male with ESRD admitted with malfunctioning Permacath. NO AV access. Last full dialysis was 5 days ago. Profould Hyperglycemia, due to dietary non-compliance. Hyponatremia is related to Hyperglycemia, and expected to correct with correction of the Hyperglycemia. m Pland: Femoral Catheter and HD today. Placement of new Permacath and AVF carissa. Needs to have optimization of the glycemia. Will follow with you. Chichi Garcia MD
--- NOTE | 2016-08-12 15:46 | HP ---
CHIEF COMPLAINT: PCP: HISTORY OF PRESENT ILLNESS: 66 year old male with pmh HTN, COPD, and OR (01/23/16), hx of chronic UTIs, CKD stage 5 on HD , recurrent UTI rt chronic obstructive uropathy, BPH presented to the ED with shortness of breath after missing dialysis on Friday with due dialysis access malfunction. Pt patient went for dialysis on Friday and wasn only able to get one hour of dialysis to dialysis access malfunction. Pt also complained of shortness of breath but denies chest pain, palpitation, dizziness. No fever or chills, cough, no n/v. In the ED pt was found to have hyperglycemia with blood sugar 728 and multiple electrolytes imbalances, but pt denies polyphagia, polyuria, blurred vision, fatigue, weakness, confusion. ER course was notable for: (1) INsulin IV 10Unit regular (2) Insulin drip (3) BUN 62 Cr 6.2 Recent Travel: none PAST MEDICAL HISTORY: as per HPI PAST SURGICAL HISTORY: Denies Social History: Smoking: former smoker quit 6 months ago, 30 pack year smoker Alcohol: denies Drugs: denies Family History: non contributory Allergies No Known Allergies Allergy (Verified 08/12/16 13:16) HOME MEDICATIONS: Home Medications Medication Instructions Recorded Albuterol Sulfate [Proair 90 mcg IH ASDIR PRN 01/24/16 Respiclick] Cholecalciferol (Vitamin D3) 2,000 unit PO DAILY 01/24/16 [Vitamin D3] Finasteride [Proscar] 5 mg PO DAILY 01/24/16 Glipizide 5 mg PO DAILY 01/24/16 Insulin Detemir [Levemir Flextouch] 20 unit SQ BID 01/24/16 Metoprolol Succinate [Toprol XL -] 50 mg PO HS 01/24/16 Amlodipine Besylate [Norvasc -] 10 mg PO DAILY #30 tablet 01/26/16 Calcium Acetate [Phoslo -] 1,334 mg PO TIDCM #90 06/26/16 Insulin Sliding Scale [Novolog 1 vial SQ ACHS #1 ea 06/26/16 Vial Sliding Scale -] Tamsulosin HCl [Flomax -] 0.8 mg PO DAILY@0830 #30 06/26/16 Vitamin B Comp W-C [Nephro-Rebecca -] 1 tablet PO DAILY #30 tablet 06/26/16 REVIEW OF SYSTEMS CONSTITUTIONAL: Absent: fever, chills, diaphoresis, generalized weakness, malaise, loss of appetite, weight change HEENT: Absent: rhinorrhea, nasal congestion, throat pain, throat swelling, difficulty swallowing, mouth swelling, ear pain, eye pain, visual changes CARDIOVASCULAR: Absent: chest pain, syncope, palpitations, irregular heart rate, lightheadedness , peripheral edema RESPIRATORY: shortness of breath, dyspnea with exertion Absent: cough, orthopnea, wheezing, stridor, hemoptysis GASTROINTESTINAL: Absent: abdominal pain, abdominal distension, nausea, vomiting, diarrhea, constipation, melena, hematochezia GENITOURINARY: Absent: dysuria, frequency, urgency, hesitancy, hematuria, flank pain, genital pain MUSCULOSKELETAL: Absent: myalgia, arthralgia, joint swelling, back pain, neck pain SKIN: Absent: rash, itching, pallor HEMATOLOGIC/IMMUNOLOGIC: Absent: easy bleeding, easy bruising, lymphadenopathy, frequent infections ENDOCRINE: Absent: unexplained weight gain, unexplained weight loss, heat intolerance, cold intolerance NEUROLOGIC: Absent: headache, focal weakness or paresthesias, dizziness, unsteady gait, seizure, mental status changes, bladder or bowel incontinence PSYCHIATRIC: Absent: anxiety, depression, suicidal or homicidal ideation, hallucinations. PHYSICAL EXAMINATION Vital Signs - 24 hr 08/12/16 13:16 Temperature 97.9 F Pulse Rate 106 H Respiratory 20 Rate Blood Pressure 168/102 O2 Sat by Pulse 97 Oximetry (%) GENERAL: Awake, alert, and fully oriented, in no acute distress. HEAD: Normal with no signs of trauma. EYES: Pupils equal, round and reactive to light, extraocular movements intact, sclera anicteric, conjunctiva clear. No lid lag. EARS, NOSE, THROAT: Ears normal, nares patent, oropharynx clear without exudates. Moist mucous membranes. NECK: Normal range of motion, supple without lymphadenopathy, JVD, or masses. LUNGS:bibasilar crackles to auscultation No wheezes. No accessory muscle use. HEART: Regular rate and rhythm, normal S1 and S2 with systolic murmur 2/6, rub or gallop. ABDOMEN: Soft, nontender, not distended, normoactive bowel sounds, no guarding, no rebound, no masses. No hepatomegaly or splenomegaly. joyner cath in place MUSCULOSKELETAL: Normal range of motion at all joints. No bony deformities or tenderness. No CVA tenderness. UPPER EXTREMITIES: 2+ pulses, warm, well-perfused. No cyanosis. No clubbing. No peripheral edema. LOWER EXTREMITIES: 2+ pulses, warm, well-perfused. No calf tenderness. 2+ lower ext edema NEUROLOGICAL: Normal speech. Normal gait. PSYCHIATRIC: Cooperative. Good eye contact. Appropriate mood and affect. SKIN: Warm, dry, normal turgor, no rashes or lesions noted, normal capillary refill. Sacral wound 7 cm in diameter, 4cm deep to bone, with yellow base, foul smelling. right chest dialysis access. Laboratory Results - last 24 hr 08/12/16 08/12/16 08/12/16 14:00 14:00 14:00 WBC 12.7 H RBC 4.15 D Hgb 9.9 L D Hct 33.9 L D MCV 81.6 MCHC 29.3 L RDW 18.5 H D Plt Count 282 D MPV 7.9 Neutrophils % 63.1 Lymphocytes % 25.1 D Monocytes % 9.7 Eosinophils % 1.1 Basophils % 1.0 INR 1.43 H PTT (Actin FS) 28.8 VBG pH POC VBG pCO2 POC VBG pO2 Mixed VBG HCO3 Sodium 125 L Potassium 4.5 Chloride 89 L D Carbon Dioxide 19 L D Anion Gap 17 H BUN 62 H Creatinine 6.2 H Creat Clearance w eGFR 9.10 Random Glucose 728 H* D Lactic Acid Calcium 8.0 L Total Bilirubin 0.2 D AST 4 L D ALT 10 L D Alkaline Phosphatase 88 D Total Protein 6.8 Albumin 2.4 L D Urine Color Urine Appearance Urine pH Ur Specific [place] Urine Protein Urine Glucose (UA) Urine Ketones Urine Blood Urine Nitrite Urine Bilirubin Urine Urobilinogen Ur Leukocyte Esterase Urine RBC Urine WBC Acetone, Qual Blood Type Antibody Screen 08/12/16 08/12/16 08/12/16 14:00 14:00 14:12 WBC RBC Hgb Hct MCV MCHC RDW Plt Count MPV Neutrophils % Lymphocytes % Monocytes % Eosinophils % Basophils % INR PTT (Actin FS) VBG pH POC VBG pCO2 POC VBG pO2 Mixed VBG HCO3 Sodium Potassium Chloride Carbon Dioxide Anion Gap BUN Creatinine Creat Clearance w eGFR Random Glucose Lactic Acid 1.244 Calcium Total Bilirubin AST ALT Alkaline Phosphatase Total Protein Albumin Urine Color Straw Urine Appearance Clear Urine pH 6.0 Ur Specific [place] 1.015 Urine Protein 3+ H Urine Glucose (UA) 3+ H Urine Ketones Negative Urine Blood 1+ H Urine Nitrite Negative Urine Bilirubin Negative Urine Urobilinogen Negative Ur Leukocyte Esterase Negative Urine RBC 6 Urine WBC 8 Acetone, Qual Blood Type B POSITIVE Antibody Screen Negative 08/12/16 08/12/16 15:12 15:21 WBC RBC Hgb Hct MCV MCHC RDW Plt Count MPV Neutrophils % Lymphocytes % Monocytes % Eosinophils % Basophils % INR PTT (Actin FS) VBG pH 7.29 L POC VBG pCO2 40.7 POC VBG pO2 25.8 L Mixed VBG HCO3 19.1 Sodium Potassium Chloride Carbon Dioxide Anion Gap BUN Creatinine Creat Clearance w eGFR Random Glucose Lactic Acid Calcium Total Bilirubin AST ALT Alkaline Phosphatase Total Protein Albumin Urine Color Urine Appearance Urine pH Ur Specific [place] Urine Protein Urine Glucose (UA) Urine Ketones Urine Blood Urine Nitrite Urine Bilirubin Urine Urobilinogen Ur Leukocyte Esterase Urine RBC Urine WBC Acetone, Qual Trace Blood Type Antibody Screen CBC, BMP 08/12/16 14:00 08/12/16 14:00 Microbiology Selected Entries 08/12/16 13:16 Pulse Rate 106 H Laboratory Tests 08/12/16 08/12/16 08/12/16 14:00 14:00 14:00 INR 1.43 H PTT (Actin FS) 28.8 VBG pH POC VBG pCO2 Random Glucose 728 H* D Lactic Acid 1.244 Calcium 8.0 L Albumin 2.4 L D Urine Nitrite Ur Leukocyte Esterase Urine WBC 08/12/16 08/12/16 14:12 15:21 INR PTT (Actin FS) VBG pH 7.29 L POC VBG pCO2 40.7 Random Glucose Lactic Acid Calcium Albumin Urine Nitrite Negative Ur Leukocyte Esterase Negative Urine WBC 8 ASSESSMENT/PLAN: 6 year old male with pmh HTN, COPD, and OR (01/23/16), hx of chronic UTIs, CKD stage 5 on HD , recurrent UTI rt chronic obstructive uropathy, BPH presented to the ED with shortness of breath after missing dialysis on Friday with due dialysis access malfunction was found to have Hyperglycemia Acute DKA/HHNK Glucose 725, PH 7.29, Bicarb 19, GAp 17, trace ketones ON insulin drip Unable to give IV fluid due to end stage renal failure Once blood sugar less than20, stop insulin drip Start Levemir 20U BID Novolog sliding scale BGM q 2-4 hours BMP with dialysis, BMP in am Acute resp distress likely from volume overload from incomplete dialysis on Friday CXR with congestive chnages Crackles in in b/l lungs Dialysis today CKD stage 5 on dialysis Dialysis access not working Only received 1 hour of dialysis on Friday renal consulted Dr Guilherme Forte HD cath now Stat hemodialysis today PseudoHyponatremia blood sugar 728 Sodium 125 Corrected NA 140 HTN resume antihypertensives Sacral STage 4 pressure ulcer r/o osteomyelitis Sacral wound 7cm diameter, 4cm in depth Wet to dry dressing Heidiyl Dr culver involved Vancomycin 1250mg IV once Zosyn IV once ID consult Anemia Likely rt CKD Monitor cbc COPD bronchodilators FEN Fluid: None Electrolytes: chemistries post dialysis Nutrition: renal diet Disposition: admit to ICU. Visit type - Emergency Visit Emergency Visit: Yes ED Registration Date: 08/12/16 Care time: The patient presented to the Emergency Department on the above date and was hospitalized for further evaluation of their emergent condition. - New Patient This patient is new to me today: Yes Date on this admission: 08/12/16 - Critical Care Critical Care patient: Yes Total Critical Care Time (in minutes): 45 Critical Care Statement: The care of this patient involved high complexity decision making to prevent further life threatening deterioration of the patient 's condition and/or to evalute & treat vital organ system(s) failure or risk of failure.
--- NOTE | 2016-08-12 17:16 | CONSULT ---
Consultation: REQUESTING PROVIDER: CONSULT REQUEST: We have been asked to medically evaluate this patient for ( specify). HISTORY OF PRESENT ILLNESS: 66 yo M with hx of HTN, COPD, and MD (01/23/16), hx of chronic UTIs, CKD stage 5 (on dialysis) presents to ED with c/o of "I need dialysis." Patient states his last full dialysis was on and than he had an hour on Friday.Patient states he is having a difficulty in breathing. He denies any fever, chills, nausea, vomiting, diarrhea, or pain. He denies headache or chest pain. In ed patient was found to have DKA. Patient was started on iv heparin drip. Patient is in fluid overload so was not started on IV fluid. Patient is non complaint. Patient has joyner cath from 3 week for outlet obstruction. Patient states he still makes good amount of urine. In icu femoral cath was inserted and patient will get HD . REVIEW OF SYSTEMS: General/Constitutional: Denies fever or chills. Denies weakness, HEENT: Denies change in vision. Denies ear pain or discharge. Denies sore throat. Cardiovascular: Denies chest pain or shortness of breath. Respiratory: Denies cough, wheezing, or hemoptysis. Gastrointestinal: Denies nausea, vomiting, diarrhea or constipation. Denies rectal bleeding. Genitourinary: Denies dysuria, frequency, or change in urination. Musculoskeletal: Denies joint or muscle swelling or pain. Denies neck or back pain. Skin and breasts: Denies rash or easy bruising. Neurologic: Denies headache, vertigo, loss of consciousness, or loss of sensation PHYSICAL EXAMINATION Vital Signs - 24 hr 08/12/16 08/12/16 15:47 17:02 Pulse Rate [ 95 H 104 H Apical] Respiratory 16 16 Rate Blood Pressure 174/86 162/95 [Right Arm] O2 Sat by Pulse 99 97 Oximetry (%) GENERAL: Awake, alert, and fully oriented, in acute distress. HEAD: Normal with no signs of trauma. EYES: Pupils equal, round and reactive to light, LUNGS: Breath sounds equal, decrease breath sounds at bases, crepts present in b/l bases HEART: s1s2 normal ABDOMEN: Soft, nontender, not distended, normoactive bowel sounds, no guarding, no rebound, no masses. . MUSCULOSKELETAL: grade 3-4 decubitus ulcer present in sacral area, necrotic patch present at the floor of ulcer. UPPER EXTREMITIES: 2+ pulses, warm, well-perfused. N LOWER EXTREMITIES: 2+ pulses, warm, well-perfused. 2+ peripharal edema PSYCHIATRIC: Cooperative. Good eye contact. SKIN: Warm, dry, Active Medications Generic Name Dose Route Start Last Admin Trade Name Freq PRN Reason Stop Dose Admin Amlodipine Besylate 10 mg 08/12/16 16:00 Norvasc - PO DAILY [facility] Calcium Acetate 1,334 mg 08/12/16 17:30 Phoslo - PO TIDCM [facility] Chlorhexidine Gluconate 1 applic 08/12/16 22:00 Hibiclens For Decolonization - TP HS [facility] Cholecalciferol 2,000 unit 08/13/16 10:00 Vitamin D3 - PO DAILY [facility] Epoetin Neftaly 10,000 unit 08/12/16 17:30 Procrit - SQ 08/12/16 17:31 ONCE ONE Finasteride 5 mg 08/13/16 10:00 Proscar - PO DAILY [facility] Heparin Sodium (Porcine) 5,000 unit 08/12/16 22:00 Heparin - SQ TID [facility] Insulin Human Regular 100 100 mls @ 9.97 mls/hr 08/12/16 14:45 08/12/16 15:01 units/ Sodium Chloride IVPB 9.97 mls/hr TITR [facility] Administration Protocol 0.1 UNITS/KG/HR Metoprolol Succinate 50 mg 08/12/16 22:00 Toprol Xl - PO HS [facility] Multivit/Ca Carb/B Cmplx/FA/Prenat 1 tablet 08/13/16 10:00 Nephro-Rebecca - PO DAILY [facility] Mupirocin 1 applic 08/12/16 22:00 Bactroban Ointment (For Decolonization) - NS 08/17/16 21:59 BID [facility] Non-Formulary Medication 90 mcg 08/12/16 15:53 Albuterol Sulfate [Proair Respiclick] IH ASDIR PRN SHORT OF BREATH/WHEEZING Tamsulosin HCl 0.8 mg 08/13/16 08:30 Flomax - PO DAILY@0830 [facility] ASSESSMENT/PLAN: DKA non complaint on insulin drip monitor blood sugar monitor serum potassium not getting iv fluid due to fluid overload monitor blood sugar ESRD on HD last full HD was on and also got one hour HD on friday formal line inserted patient will get HD follow electrolytes post HD nephrology on case perma cath will be placed tomorrow. on phoslo on cholecaliferol Pulmonary edema due to fluid overload from not getting regular dialysis cxr shows congestion will get HD HTN on norvasc on toprol xl 50 hs normocytic anemia could be due to anemia of chronic ds from esrd getting epoetin h/o bph joyner cath present on flomax on finasteride hyponatremia Na 125 its due to hyperglycemia corrected na normal 140 h/o copd not active on abuterol inhaler prn decubitus ulcer on sacrum stage 4 daily dressing avoid pressure change position every 2 hour h/o KILO KELLY in 2015 fluid; orally allowed electrolyte: repeat after HD, monitor sr k nutrition; renal diet dvt pro on heparin sq gi pro not required dispo: admit in icu Dispo: We will continue to follow the patient. Thank you for this consultative opportunity. Visit type - Emergency Visit Emergency Visit: Yes ED Registration Date: 08/12/16 Care time: The patient presented to the Emergency Department on the above date and was hospitalized for further evaluation of their emergent condition. - New Patient This patient is new to me today: No - Critical Care Critical Care patient: Yes Total Critical Care Time (in minutes): 45 Critical Care Statement: The care of this patient involved high complexity decision making to prevent further life threatening deterioration of the patient 's condition and/or to evalute & treat vital organ system(s) failure or risk of failure.
[2016-08-12] MEDS ORDERED: EPOETIN ALFA 10,000 UNIT/1 ML VIAL SQ ONE (17:30)
--- NOTE | 2016-08-12 17:48 | PN ---
Progress Note (short form) - Note Progress Note: Vascular Surgery Pt seen and examined. Left femoral shiley placed. Guidewire removed. all ports flushed. May use for HD Tonio Longoria DO
--- NOTE | 2016-08-12 18:25 | PN ---
Teaching Attending Note Name of Resident: Harjinder Isaac ATTENDING PHYSICIAN STATEMENT I saw and evaluated the patient. I reviewed the resident's note and discussed the case with the resident. I agree with the resident's findings and plan as documented. SUBJECTIVE: This is a 66 year old man with a history of HTN, COPD, [place], chronic UTIs, ESRD on HD, obstructive uropathy, BPH who presents to the ER with shortness of breath after not completing dialysis on 08/10 because of access malfunction. In the ER, he had a blood glucose of 728. OBJECTIVE: Vital Signs Period Temp Pulse Resp BP Sys/Vogt Pulse Ox Last 24 Hr 97.9 F 95-106 16-20 162-174/86-102 97-99 HEART: S1S2, tachycardic LUNGS: Clear ABDOMEN: Obese, soft, non-tender, non-distended, normal BS EXTREMITIES: No edema ASSESSMENT AND PLAN: This is a 66-year-old man with a history of HTN, COPD, CAD, TN, ESRD on HD, BPH with obstructive uropathy who presented to the ER with SOB. 1. DKA - Admit to ICU - Continue regular insulin drip - Monitor chemistry - Not receiving IV fluid secondary to fluid overload 2. Fluid overload - HD today 3. ESRD - Permacath not functioning - HD catheter placement for HD today - Continue PhosLo, Nephrovite - Nephrology consult 4. Pseudohyponatremia secondary to hyperglycemia 5. HTN - Continue Toprol XL, Norvasc 6. Stage 4 pressure ulcer of sacrum - Zosyn, Vancomycin empirically for osteomyelitis - ID consult - Vascular surgery consult - Wound care 7. Anemia secondary to CKD 8. COPD - Stable - Continue Albuterol as needed 9. CAD, history of TN - Continue Toprol XL 10. BPH with obstructive uropathy - Continue Flomax, Proscar
[2016-08-12 18:30] VITALS: BMI 30.8
[2016-08-12] MEDS ORDERED: INSULIN DETEMIR 100 UNITS/ML MDV SQ ONE (18:30)
[2016-08-12] MEDS ORDERED: ALBUTEROL SO4 6.7 GM HFA INHALER IH PRN (18:30)
[2016-08-12] MEDS ORDERED: ALBUTEROL SO4 0.083% IH SOL 2.5 MG/3 ML VIAL.NEB. NEB PRN (18:32)
[2016-08-12] MEDS ORDERED: VANCOMYCIN 1,250 MG in DEXTROSE 5%-WATER - 250 ML IVPB ONE (19:50)
[2016-08-12] MEDS: amLODIPine BESYLATE 10 MG TABLET (FP) PO SCH (20:37)
[2016-08-12] MEDS: CALCIUM ACETATE 667 MG CAPSULE (FP) PO SCH (20:37)
[2016-08-12] MEDS: HEPARIN NA (PORCINE) 5,000 UNITS/ML 1ML VIAL SQ SCH (21:09)
[2016-08-12] MEDS: MUPIROCIN 2% TOPICAL OINTMENT FOR DECOLONIZATION NS SCH (21:10)
[2016-08-12] MEDS: INSULIN SLIDING SCALE (NOVOLOG) 1 VIAL SQ SCH (21:44)
[2016-08-12] MEDS ORDERED: PIPERACILLIN/TAZOB 3.375 GM/50 ML PRE-DOCKED IVPB ONE (22:00)
[2016-08-12] MEDS ORDERED: METOPROLOL SUCCINATE 50 MG TAB.SR.24H (FP) PO SCH (22:00)
[2016-08-12] MEDS ORDERED: CHLORHEXIDINE GLUCONATE 4% CLEANSER FOR DECOLONIZATION TP SCH (22:00)
[2016-08-13 00:08] LABS: BASOPHIL 0.5 % (0-2.0); EOSINOPHIL 0.7 % (0-4.5); MCH 23.3 pg (25.7-33.7); MCHC 30.6 g/dl (32.0-35.9); MEAN CELL VOLUME 76.3 fl (80-96); MEAN PLT VOLUME 7.8 fl (7.5-11.1); PLATELET COUNT 299 K/MM3 (134-434); RDW 17.3 % (11.9-15.9); WHITE BLOOD COUNT 15.2 K/mm3 (4.0-10.0)
[2016-08-13] MEDS ORDERED: HEMOQUE TEST 1 EACH EACH ONE (01:30)
[2016-08-13] MEDS: INSULIN SLIDING SCALE (NOVOLOG) 1 VIAL SQ SCH ×6 (01:42→23:59)
[2016-08-13] MEDS: HEPARIN NA (PORCINE) 5,000 UNITS/ML 1ML VIAL SQ SCH ×2 (06:21→17:45)
[2016-08-13 06:28] LABS: BASOPHIL 0.5 % (0-2.0); MCH 23.3 pg (25.7-33.7); MCHC 30.5 g/dl (32.0-35.9); MEAN CELL VOLUME 76.4 fl (80-96); MEAN PLT VOLUME 7.8 fl (7.5-11.1); NEUTROPHILS 68.2 % (42.8-82.8); PLATELET COUNT 330 K/MM3 (134-434); RDW 17.8 % (11.9-15.9); WHITE BLOOD COUNT 15.1 K/mm3 (4.0-10.0)
[2016-08-13] MEDS ORDERED: INSULIN DETEMIR 100 UNITS/ML MDV SQ SCH (07:00)
[2016-08-13 07:17] LABS: CALCIUM 7.9 mg/dL (8.5-10.1)
[2016-08-13 07:18] LABS: CREATININE 3.7 mg/dL (0.7-1.3)
[2016-08-13 07:24] LABS: CALCIUM 7.6 mg/dL (8.5-10.1); CREATININE 2.7 mg/dL (0.7-1.3)
[2016-08-13] MEDS ORDERED: TAMSULOSIN HCL 0.4 MG CAP.ER.24H (FP) PO SCH (08:30)
[2016-08-13] MEDS: CALCIUM ACETATE 667 MG CAPSULE (FP) PO SCH ×3 (08:51→17:44)
[2016-08-13] MEDS: amLODIPine BESYLATE 10 MG TABLET (FP) PO SCH (09:04)
[2016-08-13] MEDS: MUPIROCIN 2% TOPICAL OINTMENT FOR DECOLONIZATION NS SCH ×2 (09:05→23:59)
[2016-08-13] MEDS ORDERED: CHOLECALCIFEROL (VITAMIN D3) 1,000 UNIT TABLET (FP) PO SCH (10:00)
[2016-08-13] MEDS ORDERED: VITAMIN B COMP W-C 1 EA TABLET PO SCH (10:00)
[2016-08-13] MEDS ORDERED: FINASTERIDE 5 MG TABLET (FP) PO SCH (10:00)
--- NOTE | 2016-08-13 10:13 | CONSULT ---
Consult - text type - Consultation Consultation Note: Renal Follow up for ESRD on HD Pt seen and examined at the bedside no acute complaints, no sob or chest pain s/p dialysis yesterday with femoral HD catheter with 4kg UF has tenderness on his lower back Vital Signs Temperature 97.6 F 08/13/16 09:54 Pulse Rate 96 H 08/13/16 09:54 Respiratory Rate 22 08/13/16 09:54 Blood Pressure 147/82 08/13/16 09:54 O2 Sat by Pulse Oximetry (%) 97 08/13/16 09:26 Intake & Output 08/10/16 08/11/16 08/12/16 08/13/16 23:59 23:59 23:59 23:59 Intake Total 50 0 Output Total 200 150 Balance -150 -150 Weight 221 lb 216 lb 0.848 oz Gen: NAD, awake HEENT: NC/AT, MMM, No JVD CVS: RRR, No M/R Lungs: Dec BS throughout the lung sarabia, no rales Abd: Soft NT/ND Ext: 1+ edema, no clubbing or edema Access: Femoral Shiley catheter, Right IJ permacath Neuro: AAOx3, no focal defects CBC, BMP 08/13/16 05:20 08/13/16 05:20 Current Medications Albuterol Sulfate (Ventolin 0.083% Nebulizer Soln -) 1 amp NEB Q4H PRN PRN Reason: SHORT OF BREATH/WHEEZING Amlodipine Besylate (Norvasc -) 10 mg PO DAILY COUNTS INCLUDE 234 BEDS AT THE [facility] Last Admin: 08/13/16 09:04 Dose: 10 mg Calcium Acetate (Phoslo -) 1,334 mg PO TIDCM COUNTS INCLUDE 234 BEDS AT THE [facility] Last Admin: 08/13/16 08:51 Dose: Not Given Chlorhexidine Gluconate (Hibiclens For Decolonization -) 1 applic TP HS COUNTS INCLUDE 234 BEDS AT THE [facility] Last Admin: 08/13/16 01:07 Dose: 1 applic Cholecalciferol (Vitamin D3 -) 2,000 unit PO DAILY [facility] Finasteride (Proscar -) 5 mg PO DAILY COUNTS INCLUDE 234 BEDS AT THE [facility] Heparin Sodium (Porcine) (Heparin -) 5,000 unit SQ TID COUNTS INCLUDE 234 BEDS AT THE [facility] Last Admin: 08/13/16 06:21 Dose: 5,000 unit Insulin Aspart (Novolog Vial Sliding Scale -) 1 vial SQ Q4HPO [facility] PRN Reason: Protocol Last Admin: 08/13/16 06:21 Dose: Not Given Metoprolol Succinate (Toprol Xl -) 50 mg PO HS COUNTS INCLUDE 234 BEDS AT THE [facility] Last Admin: 08/12/16 21:09 Dose: 50 mg Multivit/Ca Carb/B Cmplx/FA/Prenat (Nephro-Rebecca -) 1 tablet PO DAILY COUNTS INCLUDE 234 BEDS AT THE [facility] Mupirocin (Bactroban Ointment (For Decolonization) -) 1 applic NS BID COUNTS INCLUDE 234 BEDS AT THE [facility] Stop: 08/17/16 21:59 Last Admin: 08/13/16 09:05 Dose: 1 applic Tamsulosin HCl (Flomax -) 0.8 mg PO DAILY@0830 COUNTS INCLUDE 234 BEDS AT THE [facility] Last Admin: 08/13/16 08:51 Dose: Not Given A/P 66 year old Gentleman with PMhx of ESRD on HD (recently started on HD), BPH with chronic indwelling Joyner, Hypertension, CAD who presented with mal functioning dialysis catheter and found to have volume overload with leukocytosis and sacral decubitus ulcer. #ESRD on HD with malfunctiong HD catheter s/p temporary catheter placement yesterday with large volume UF no acute indication for dialysis today will wait until Blood cultures are reported before catheter exchange Renal diet for possible catheter exchange tomorrow and dialysis following. #Leukocytosis with large sacral decubitis ulcer and chronic indwelling Joyner Blood and urine cultures collected s/p Vanco and Zosyn yesterday ID recommendations for further Abx #Anemia (CKD related) no acute indication for transfusion will continue WILY with HD #BPH with chronic indwelling joyner continue joyner for now continue flomax and proscar f/u urine cultures #Hypertension continue amlodpine, metoprolol Thank you Dominick Vanegas DO
--- NOTE | 2016-08-13 10:25 | PN ---
Progress Note (short form) - Note Progress Note: ID consult dictated imp/reccd 66 year old man with esrd/hd, bph with chronic joyner, htn, dm admitted with SOB- permacath was malfunctioning on Friday at HD and he received a shorter then normal HD session found to have elevated glucose of 728 as well at leukocytosis and a foulsmelling sacral ulcer with drainage temporary access was placed (femoral) for HD and he was dialyzed cultures were sent and he was started on vanco/zosyn hyperglycemia volume overload (due to incomplete HD) leukocytosis infected sacral ulcer d/w renal and surgery for surgical debridement of sacral ulcer no objection to placement of permacath in am if he remains afebrile and has negative blood cultures zosyn/vanco based on levels vancomycin trough in am Problem List - Problems (1) Hyperglycemia Code(s): R73.9 - HYPERGLYCEMIA, UNSPECIFIED (2) Volume overload Code(s): E87.70 - FLUID OVERLOAD, UNSPECIFIED (3) Leukocytosis Code(s): D72.829 - ELEVATED WHITE BLOOD CELL COUNT, UNSPECIFIED (4) Infected decubitus ulcer Code(s): L89.90 - PRESSURE ULCER OF UNSPECIFIED SITE, UNSPECIFIED STAGE
[2016-08-13] MEDS: PIPERACILLIN/TAZOB 2.25 GM 50 ML IVPB SCH ×2 (11:33→17:46)
[2016-08-13] MEDS ORDERED: MIDAZOLAM HCL 2 MG/2 ML SINGLE DOSE VIAL ONE (11:53)
[2016-08-13] MEDS ORDERED: PROPOFOL 20 ML ONE (11:53)
[2016-08-13] MEDS ORDERED: LIDOCAINE HCL 1%, 10 MG/ML (20ML VIAL) ONE (11:55)
[2016-08-13] MEDS ORDERED: BACITRACIN 15 GM TUBE TOPICAL OINTMENT ONE (12:13)
--- NOTE | 2016-08-13 12:28 | OP ---
Operative Note - Note: Operative Date: 08/13/16 Pre-Operative Diagnosis: Sacral and hip ulcer Operation: Excisional debridement skin, subcutanous tissue sacrum, left hip I&D of abscess. Findings: Abscess in sacrum and left hip Cx taken Post-Operative Diagnosis: Same as Pre-op Surgeon: Tonio Longoria Anesthesia: Fractional Estimated Blood Loss (mls): 50 Operative Report Dictated: Yes
[2016-08-13] MEDS ORDERED: LIDOCAINE HCL 1%, 10 MG/ML (20ML VIAL) IJ ONE (12:30)
--- NOTE | 2016-08-13 12:39 | PN ---
Teaching Attending Note Name of Resident: Zay Byers ATTENDING PHYSICIAN STATEMENT I saw and evaluated the patient. I reviewed the resident's note and discussed the case with the resident. I agree with the resident's findings and plan as documented. SUBJECTIVE: Pt seen and examined in the ICU. Briefly, 66yo male with h/o HTN, COPD, CAD, ESRD on HD who presents with worsening shortness of breath after missing HD session. Noted to be hyperglycemic with elevated anion gap, started on insulin gtt with closing of anion gap. Dialyzed yesterday urgently with removal of 4 kg. Femoral catheter placed yesterday as permacath not functioning. Feels better today, less short of breath. No chest pain. No fevers or chills. OBJECTIVE: Last Vital Signs Temp Pulse Resp BP Pulse Ox 97.6 F 96 H 22 147/82 94 L 08/13/16 09:54 08/13/16 09:54 08/13/16 09:54 08/13/16 09:54 08/13/16 10:47 Intake & Output 08/10/16 08/11/16 08/12/16 08/13/16 23:59 23:59 23:59 23:59 Intake Total 50 20 Output Total 200 150 Balance -150 -130 Weight 221 lb 216 lb 0.848 oz Gen: mildly tachypneic at rest Heart: RRR Lung: decreased breath sounds at the bases Abd: soft, nontender Ext: no edema CBC, BMP 08/13/16 05:20 08/13/16 05:20 Active Medications Albuterol Sulfate (Ventolin 0.083% Nebulizer Soln -) 1 amp NEB Q4H PRN PRN Reason: SHORT OF BREATH/WHEEZING Amlodipine Besylate (Norvasc -) 10 mg PO DAILY [facility] Last Admin: 08/13/16 09:04 Dose: 10 mg Calcium Acetate (Phoslo -) 1,334 mg PO TIDCM [facility] Last Admin: 08/13/16 08:51 Dose: Not Given Chlorhexidine Gluconate (Hibiclens For Decolonization -) 1 applic TP HS [facility] Last Admin: 08/13/16 01:07 Dose: 1 applic Cholecalciferol (Vitamin D3 -) 2,000 unit PO DAILY [facility] Finasteride (Proscar -) 5 mg PO DAILY [facility] Heparin Sodium (Porcine) (Heparin -) 5,000 unit SQ TID [facility] Last Admin: 08/13/16 06:21 Dose: 5,000 unit Piperacillin Sod/Tazobactam Sod (Zosyn 2.25gm Ivpb (Pre-Docked)) 50 mls @ 100 mls/hr IVPB Q8H-IV [facility] PRN Reason: Protocol Last Admin: 08/13/16 11:33 Dose: 100 mls/hr Insulin Aspart (Novolog Vial Sliding Scale -) 1 vial SQ Q4HPO [facility] PRN Reason: Protocol Last Admin: 08/13/16 11:06 Dose: Not Given Metoprolol Succinate (Toprol Xl -) 50 mg PO HS [facility] Last Admin: 08/12/16 21:09 Dose: 50 mg Multivit/Ca Carb/B Cmplx/FA/Prenat (Nephro-Rebecca -) 1 tablet PO DAILY [facility] Mupirocin (Bactroban Ointment (For Decolonization) -) 1 applic NS BID [facility] Stop: 08/17/16 21:59 Last Admin: 08/13/16 09:05 Dose: 1 applic Tamsulosin HCl (Flomax -) 0.8 mg PO DAILY@0830 [facility] Last Admin: 08/13/16 08:51 Dose: Not Given ASSESSMENT AND PLAN: Acute on Chronic LV Diastolic Heart Failure Volume Overload ESRD on HD Pulmonary HTN Sacral Decubitus Ulcer infection DKA resolved - HD per renal with ultrafiltration - OR today for sacral decubitus debridement - antibiotics per ID - f/u cultures - will need permacath replacement - glucose control - enforced importance of compliance with medications and HD - DVT prophylaxis - can monitor on floor
--- NOTE | 2016-08-13 13:05 | PN ---
Addendum entered and electronically signed by Zay Byers RES 08/13/16 15:30 : follow wound culture Original Note: Physical Exam: SUBJECTIVE: Patient seen and examined Patient feels better, states breathing has improved got HD yesterday, 4 L fluid removed femoral cath was placed yesterday urine culture is contaminated will send repeat culture patient will go for sacral wound debribent. OBJECTIVE: Vital Signs Period Temp Pulse Resp BP Sys/Vogt Pulse Ox Last 24 Hr 97.6 F-99.9 F 92-120 16-28 104-192/68-120 94-100 GENERAL: Awake, alert, and fully oriented, in acute distress. HEAD: Normal with no signs of trauma. EYES: Pupils equal, round and reactive to light, LUNGS: Breath sounds equal, no crepts HEART: s1s2 normal ABDOMEN: Soft, nontender, not distended, normoactive bowel sounds, no guarding, no rebound, no masses. . MUSCULOSKELETAL: grade 3-4 decubitus ulcer present in sacral area, necrotic patch present at the floor of ulcer. UPPER EXTREMITIES: 2+ pulses, warm, well-perfused. LOWER EXTREMITIES: warm, well-perfused. 2+ peripharal edema PSYCHIATRIC: Cooperative. Good eye contact. SKIN: Warm, dry, Laboratory Results - last 24 hr 08/12/16 08/12/16 08/12/16 16:07 17:57 19:12 WBC RBC Hgb Hct MCV MCHC RDW Plt Count MPV Neutrophils % Lymphocytes % Monocytes % Eosinophils % Basophils % Sodium Potassium Chloride Carbon Dioxide Anion Gap BUN Creatinine POC Glucometer > 400 > 400 344.88246 Random Glucose Calcium 08/12/16 08/12/16 08/12/16 20:08 21:37 23:30 WBC RBC Hgb Hct MCV MCHC RDW Plt Count MPV Neutrophils % Lymphocytes % Monocytes % Eosinophils % Basophils % Sodium 137 Potassium 3.3 L D Chloride 96 L Carbon Dioxide 29 D Anion Gap 12 BUN 23 H D Creatinine 2.7 H D POC Glucometer 173.30265 199.97611 Random Glucose 223 H D Calcium 7.6 L 08/12/16 08/13/16 08/13/16 23:31 01:39 05:20 WBC 15.2 H 15.1 H RBC 4.12 4.24 Hgb 9.6 L 9.9 L Hct 31.4 L 32.4 L MCV 76.3 L 76.4 L MCHC 30.6 L 30.5 L RDW 17.3 H 17.8 H Plt Count 299 330 MPV 7.8 7.8 Neutrophils % 74.0 68.2 Lymphocytes % 16.4 D 20.8 D Monocytes % 8.4 9.5 Eosinophils % 0.7 1.0 Basophils % 0.5 0.5 Sodium Potassium Chloride Carbon Dioxide Anion Gap BUN Creatinine POC Glucometer 274.25358 Random Glucose Calcium 08/13/16 08/13/16 08/13/16 05:20 05:51 10:38 WBC RBC Hgb Hct MCV MCHC RDW Plt Count MPV Neutrophils % Lymphocytes % Monocytes % Eosinophils % Basophils % Sodium 137 Potassium 3.5 Chloride 97 L Carbon Dioxide 27 Anion Gap 13 BUN 31 H D Creatinine 3.7 H D POC Glucometer 128.56907 117.35819 Random Glucose 106 D Calcium 7.9 L Active Medications Generic Name Dose Route Start Last Admin Trade Name Freq PRN Reason Stop Dose Admin Albuterol Sulfate 1 amp 08/12/16 18:32 Ventolin 0.083% Nebulizer Soln - NEB Q4H PRN SHORT OF BREATH/WHEEZING Amlodipine Besylate 10 mg 08/12/16 16:00 08/13/16 09:04 Norvasc - PO 10 mg DAILY [facility] Administration Calcium Acetate 1,334 mg 08/12/16 17:30 08/13/16 08:51 Phoslo - PO Not Given TIDCM [facility] Chlorhexidine Gluconate 1 applic 08/12/16 22:00 08/13/16 01:07 Hibiclens For Decolonization - TP 1 applic HS [facility] Administration Cholecalciferol 2,000 unit 08/13/16 10:00 Vitamin D3 - PO DAILY [facility] Finasteride 5 mg 08/13/16 10:00 Proscar - PO DAILY [facility] Heparin Sodium (Porcine) 5,000 unit 08/12/16 22:00 08/13/16 06:21 Heparin - SQ 5,000 unit TID [facility] Administration Piperacillin Sod/Tazobactam Sod 50 mls @ 100 mls/hr 08/13/16 11:30 08/13/16 11: 33 Zosyn 2.25gm Ivpb (Pre-Docked) IVPB 100 mls/hr Q8H-IV [facility] Administration Protocol Insulin Aspart 1 vial 08/12/16 22:00 05/02/17 11:06 Novolog Vial Sliding Scale - SQ Not Given Q4HPO [facility] Protocol Metoprolol Succinate 50 mg 08/12/16 22:00 08/12/16 21:09 Toprol Xl - PO 50 mg HS [facility] Administration Multivit/Ca Carb/B Cmplx/FA/Prenat 1 tablet 08/13/16 10:00 Nephro-Rebecca - PO DAILY [facility] Mupirocin 1 applic 08/12/16 22:00 08/13/16 09:05 Bactroban Ointment (For Decolonization) - NS 08/17/16 21:59 1 applic BID [facility] Administration Tamsulosin HCl 0.8 mg 08/13/16 08:30 08/13/16 08:51 Flomax - PO Not Given DAILY@0830 [facility] Microbiology 08/12/16 14:12 Back Wound Culture - Preliminary Beta Hem Streptococcus Group G Pending Organism 08/12/16 14:12 Urine - Urine Joyner Urine Culture - Final Contaminated: Please Repeat ASSESSMENT/PLAN: DKA resolved continue with sliding scale and levemir monitor blood glucose diabetic diet. Make NPo after mid night for permacath placement monitor sr K ESRD on HD got HD yesterday through femoral cath. 4L removed nephrology on case perma cath will be placed tomorrow. on phoslo on cholecaliferol Pulmonary edema due to fluid overload from not getting regular dialysis cxr reviewed breathing improved, no crepts HTN on norvasc 10mg on toprol xl 50 hs normocytic anemia hb stable could be due to anemia of chronic ds from esrd got epoetin yesterday h/o bph joyner cath present on flomax on finasteride hyponatremia its due to hyperglycemia improved h/o copd not active on abuterol inhaler prn decubitus ulcer on sacrum stage 4 daily dressing avoid pressure change position every 2 hour got debridement today Leukocytosis with large sacral decubitis ulcer and chronic indwelling Joyner repeat wbc tomorrow Blood and urine cultures pending on Vanco and Zosyn ID on case h/o CAD , [place] in 2015 fluid; orally allowed electrolyte: repaeat in am nutrition; renal diet dvt pro on heparin sq gi pro not required dispo: transfer to med surg Dispo: We will continue to follow the patient. Thank you for this consultative opportunity. Visit type - Emergency Visit Emergency Visit: Yes ED Registration Date: 08/12/16 Care time: The patient presented to the Emergency Department on the above date and was hospitalized for further evaluation of their emergent condition. - New Patient This patient is new to me today: No - Critical Care Critical Care patient: Yes Total Critical Care Time (in minutes): 45 Critical Care Statement: The care of this patient involved high complexity decision making to prevent further life threatening deterioration of the patient 's condition and/or to evalute & treat vital organ system(s) failure or risk of failure.
--- NOTE | 2016-08-13 13:17 | PN ---
Physical Exam: SUBJECTIVE: Patient seen and examined Pt is awake, alert and oriented to time, place and person Non fever or chills No n/v denies pain 150ml urine clear yellow overnight no more shortness of breath no cough OBJECTIVE: Vital Signs Period Temp Pulse Resp BP Sys/Vogt Pulse Ox Last 24 Hr 97.3 F-99.9 F 87-120 16-28 104-192/68-120 94-100 GENERAL: Awake, alert, and fully oriented, in no acute distress. HEAD: Normal with no signs of trauma. LUNGS:diminished bibasilar crackles to auscultation No wheezes. No accessory muscle use. HEART: Regular rate and rhythm, normal S1 and S2 with systolic murmur 2/6, rub or gallop. ABDOMEN: Soft, nontender, not distended, normoactive bowel sounds, no guarding, no rebound, no masses. No hepatomegaly or splenomegaly. joyner cath in place MUSCULOSKELETAL: Normal range of motion at all joints. No bony deformities or tenderness. No CVA tenderness.. LOWER EXTREMITIES: 2+ pulses, warm, well-perfused. No calf tenderness. 2+ lower ext edema NEUROLOGICAL: Normal speech. Normal gait. PSYCHIATRIC: Cooperative. Good eye contact. Appropriate mood and affect. SKIN: Warm, dry, normal turgor, no rashes or lesions noted, normal capillary refill. Sacral wound 7 cm in diameter, 4cm deep to bone/muscle, with yellow base , foul smelling. left femoral Shiley access Laboratory Results - last 24 hr 08/12/16 08/12/16 08/12/16 16:07 17:57 19:12 WBC RBC Hgb Hct MCV MCHC RDW Plt Count MPV Neutrophils % Lymphocytes % Monocytes % Eosinophils % Basophils % Sodium Potassium Chloride Carbon Dioxide Anion Gap BUN Creatinine POC Glucometer > 400 > 400 344.66752 Random Glucose Calcium 08/12/16 08/12/16 08/12/16 20:08 21:37 23:30 WBC RBC Hgb Hct MCV MCHC RDW Plt Count MPV Neutrophils % Lymphocytes % Monocytes % Eosinophils % Basophils % Sodium 137 Potassium 3.3 L D Chloride 96 L Carbon Dioxide 29 D Anion Gap 12 BUN 23 H D Creatinine 2.7 H D POC Glucometer 173.90005 199.09909 Random Glucose 223 H D Calcium 7.6 L 08/12/16 08/13/16 08/13/16 23:31 01:39 05:20 WBC 15.2 H 15.1 H RBC 4.12 4.24 Hgb 9.6 L 9.9 L Hct 31.4 L 32.4 L MCV 76.3 L 76.4 L MCHC 30.6 L 30.5 L RDW 17.3 H 17.8 H Plt Count 299 330 MPV 7.8 7.8 Neutrophils % 74.0 68.2 Lymphocytes % 16.4 D 20.8 D Monocytes % 8.4 9.5 Eosinophils % 0.7 1.0 Basophils % 0.5 0.5 Sodium Potassium Chloride Carbon Dioxide Anion Gap BUN Creatinine POC Glucometer 274.34611 Random Glucose Calcium 08/13/16 08/13/16 08/13/16 05:20 05:51 10:38 WBC RBC Hgb Hct MCV MCHC RDW Plt Count MPV Neutrophils % Lymphocytes % Monocytes % Eosinophils % Basophils % Sodium 137 Potassium 3.5 Chloride 97 L Carbon Dioxide 27 Anion Gap 13 BUN 31 H D Creatinine 3.7 H D POC Glucometer 128.66359 117.59808 Random Glucose 106 D Calcium 7.9 L Active Medications Generic Name Dose Route Start Last Admin Trade Name Freq PRN Reason Stop Dose Admin Albuterol Sulfate 1 amp 08/12/16 18:32 Ventolin 0.083% Nebulizer Soln - NEB Q4H PRN SHORT OF BREATH/WHEEZING Amlodipine Besylate 10 mg 08/12/16 16:00 08/13/16 09:04 Norvasc - PO 10 mg DAILY [facility] Administration Calcium Acetate 1,334 mg 08/12/16 17:30 08/13/16 08:51 Phoslo - PO Not Given TIDCM [facility] Chlorhexidine Gluconate 1 applic 08/12/16 22:00 08/13/16 01:07 Hibiclens For Decolonization - TP 1 applic HS [facility] Administration Cholecalciferol 2,000 unit 08/13/16 10:00 Vitamin D3 - PO DAILY [facility] Finasteride 5 mg 08/13/16 10:00 Proscar - PO DAILY [facility] Heparin Sodium (Porcine) 5,000 unit 08/12/16 22:00 08/13/16 06:21 Heparin - SQ 5,000 unit TID [facility] Administration Piperacillin Sod/Tazobactam Sod 50 mls @ 100 mls/hr 08/13/16 11:30 08/13/16 11: 33 Zosyn 2.25gm Ivpb (Pre-Docked) IVPB 100 mls/hr Q8H-IV [facility] Administration Protocol Insulin Aspart 1 vial 08/12/16 22:00 08/13/16 11:06 Novolog Vial Sliding Scale - SQ Not Given Q4HPO [facility] Protocol Metoprolol Succinate 50 mg 08/12/16 22:00 08/12/16 21:09 Toprol Xl - PO 50 mg HS [facility] Administration Multivit/Ca Carb/B Cmplx/FA/Prenat 1 tablet 08/13/16 10:00 Nephro-Rebecca - PO DAILY [facility] Mupirocin 1 applic 08/12/16 22:00 08/13/16 09:05 Bactroban Ointment (For Decolonization) - NS 08/17/16 21:59 1 applic BID [facility] Administration Tamsulosin HCl 0.8 mg 08/13/16 08:30 08/13/16 08:51 Flomax - PO Not Given DAILY@0830 [facility] CBC, BMP 08/13/16 05:20 08/13/16 05:20 Microbiology 08/12/16 14:12 Back Wound Culture - Preliminary Beta Hem Streptococcus Group G Pending Organism Laboratory Tests 08/12/16 08/12/16 08/12/16 14:00 14:00 14:00 INR 1.43 H VBG pH Random Glucose 728 H* D Lactic Acid 1.244 Calcium Albumin 2.4 L D Urine Protein Urine Glucose (UA) Urine Ketones Urine Blood Urine Nitrite Ur Leukocyte Esterase Urine WBC Acetone, Qual 08/12/16 08/12/16 08/12/16 14:12 15:12 15:21 INR VBG pH 7.29 L Random Glucose Lactic Acid Calcium Albumin Urine Protein 3+ H Urine Glucose (UA) 3+ H Urine Ketones Negative Urine Blood 1+ H Urine Nitrite Negative Ur Leukocyte Esterase Negative Urine WBC 8 Acetone, Qual Trace 08/13/16 05:20 INR VBG pH Random Glucose Lactic Acid Calcium 7.9 L Albumin Urine Protein Urine Glucose (UA) Urine Ketones Urine Blood Urine Nitrite Ur Leukocyte Esterase Urine WBC Acetone, Qual ASSESSMENT/PLAN: 66 year old male with pmh HTN, COPD, and PA (01/23/16), hx of chronic UTIs, CKD stage 5 on HD , recurrent UTI rt chronic obstructive uropathy, BPH presented to the ED with shortness of breath after missing dialysis on Friday with due dialysis access malfunction was found to have Hyperglycemia Diabetes Start Levemir 20U BID Novolog sliding scale BGM q4 hours BMP in am Acute resp distress likely from volume overload from incomplete dialysis on Friday (resolved) CXR with diminished congestive changes minimal Crackles in in b/l lungs received Dialysis yesterday where 4 liters of IV fluid was removed CKD stage 5 on dialysis received dialysis yesterday with 4 liter removed Improved BUN, Cr Dr Vanegas on case Lani placed yesterday for dialysis catheter Port-a-cath for dialysis in am PseudoHyponatremia (resolved) Na 137 today HTN resume antihypertensives Sacral STage 4 pressure ulcer r/o osteomyelitis Sacral wound 7cm diameter, 4cm in depth left hip wound Dr Longoria involved Went for wound debridment yesterday Wound culture collected Vancomycin 1250mg IV once Zosyn IV once ID consult Anemia Likely rt CKD hbg 9.9, at baseline Monitor cbc COPD bronchodilators Acute DKA/HHNK (resolved) FEN Fluid: None Electrolytes: chemistry in am Nutrition: renal diet Disposition: Transfer [facility] Visit type - Emergency Visit Emergency Visit: Yes ED Registration Date: 08/12/16 Care time: The patient presented to the Emergency Department on the above date and was hospitalized for further evaluation of their emergent condition. - New Patient This patient is new to me today: Yes Date on this admission: 08/13/16 - Critical Care Critical Care patient: Yes Total Critical Care Time (in minutes): 40 Critical Care Statement: The care of this patient involved high complexity decision making to prevent further life threatening deterioration of the patient 's condition and/or to evalute & treat vital organ system(s) failure or risk of failure. - Discharge Referral Referred to [facility] No
--- NOTE | 2016-08-13 17:03 | CONS ---
DATE OF CONSULTATION: DATE OF DICTATION: 08/13/2016 INFECTIOUS DISEASE CONSULTATION REQUESTING PHYSICIAN: ICU service CONSULTING PHYSICIAN: Ba Porter M.D. HISTORY OF PRESENT ILLNESS: This is a 66-year-old man, past medical history of BPH with chronic indwelling Starks catheter. He was recently started about 8 weeks ago on hemodialysis via PermCath. He has a history of diabetes and coronary artery disease and hypertension. He on Friday went to dialysis, only had dialysis for an hour because PermCath was malfunctioning, and he was instructed to come on Friday to the emergency room for replacement of his PermCath. Upon arrival in the emergency room, he was found to have some shortness of breath, he denied any fevers or chills. He was noted to have a glucose of 728. He was given some insulin, and he was seen by renal. He had an emergent femoral access for dialysis, and he had hemodialysis. He is feeling much better today. He was noted yesterday on exam to have a stage 4 necrotic foul-smelling ulcer on his sacrum. I am asked to see him regarding this and leukocytosis. Patient is awake and alert. He denies any fevers or chills. He ambulates. It is really unclear as to why he has a sacral ulcer. He denies spending long periods of time in bed, but he is an extremely poor historian and really does not want to talk. He denies chest pain. He denies fevers or chills. PAST MEDICAL HISTORY: Notable for hypertension, COPD. He had an [place] in January of 2016. He has a history of BPH with chronic Starks catheter and end-stage renal disease on dialysis. ALLERGIES: No known drug allergies. MEDICATION: As an outpatient include albuterol inhaler, vitamin D, Proscar, glipizide, insulin, metoprolol, amlodipine, calcium, tamsulosin, and vitamin B complex. FAMILY HISTORY: Noncontributory. SOCIAL HISTORY: He lives at home. He lives with his brother. He is recently retired. 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 There is no history of tobacco, alcohol, or illicit substance use. REVIEW OF SYSTEMS: He has no complaints whatsoever. He reports his Starks was last changed by the urologist. PHYSICAL EXAMINATION: Vital signs: He is afebrile. Temperature 97.6, pulse 96, blood pressure 147/82 , respiratory rate 22, saturating 97% on room air. HEENT: Normocephalic. Eyes are anicteric. He has dry oral mucosa. He has no thrush. Neck: Supple. Lungs: Bibasilar crackles. Heart: Regular rate and rhythm. Abdomen: Soft, nontender. Extremities: Without edema. He has no heel ulcers, but he has a sacral ulcer midline, and he has a left trochanteric ulcer as well. The sacral ulcer is tunneling and has foul smelling drainage. LABORATORY: White count is 15.1, hemoglobin 9.9, platelets 330, BUN and creatinine are 31 and 3.7. LFTs are normal. Urinalysis had 8 white cells, and cultures are pending of his ulcer, of his blood, and of his urine. Chest x-ray notable for some mild congestion. IMPRESSION: In summary, this is a 66-year-old man admitted with hyperglycemia volume overload, leukocytosis, infected sacral ulcer. Discussed the case with renal and surgery. He is for surgical debridement of his sacral ulcer. No objection to placement of PermCath in the morning if he remains afebrile and has negative blood cultures. Would continue Zosyn and vancomycin based on levels. I have ordered a vancomycin trough in the morning. BA PORTER M.D. [id number] MTDD
--- NOTE | 2016-08-13 17:08 | PN ---
Teaching Attending Note Name of Resident: Harjinder Isaac ATTENDING PHYSICIAN STATEMENT I saw and evaluated the patient. I reviewed the resident's note and discussed the case with the resident. I agree with the resident's findings and plan as documented. SUBJECTIVE:some discomfort since the debridement but overall feels improved. states he is compliant with his medications. denies Cp, SOB,fever, chills, N/V/C /D OBJECTIVE: Last Vital Signs Temp Pulse Resp BP Pulse Ox 97.3 F L 90 18 125/67 95 08/13/16 12:45 08/13/16 15:42 08/13/16 15:42 08/13/16 15:42 08/13/16 13:00 General NAD CV S1 S2 RRR no murmur/rub/gallop Lungs CTA B/L no wheezing/rales/rhonchi Abdomen soft NT/ND obese Extremities no pedal edema +HD femoral catheter ASSESSMENT AND PLAN: 66yo M with PMH HTN. COPD, CAD, ESRD on HD, and obstructive uropathy presented to the ER and was admitted for further evaluation of their emergent condition 1. DKA-likely due to infection vs non-complaince. last a1c 15.9. on insulin ggt which was turned off in the evening and now controlled on home management. re- started on home medications. cont to monitor. 2. Volume overload-HD catheter placed last night and HD completed. NPO for permacath placement in AM if blood cultures remain negative. 3. Hypokalemia- improved 4. Stage 4 sacral decubitus ulcer- not visualized by me. s/p debridement in the OR /. concern for OM. will check ESR (although will likely be elevated) d/w vascular surgeon if bone was seen and needs OM treatment. ID consulted. started on Vanco/zosyn day 1. dose by vanco levels. 5. obstructive uropathy-chronic joyner. on flomax/proscar 6. Microcytic anemia- no signs of bleeding. Hgb above baseline. recent iron studies noted. anemia of chronic disease 7. DVT ppx- hep sq 8. stable for transfer to med-surg The care of this patient involved high complexity decision making to prevent further life threatening deterioration of the patient's condition and/or to evalute & treat vital organ system(s) failure or risk of failure. 40 minutes critical care time
[2016-08-13] MEDS ORDERED: PT OWN MED DRAWER 7, Y5N ONE (17:39)
[2016-08-13] MEDS: INSULIN DETEMIR 100 UNITS/ML MDV SQ SCH (17:44)
[2016-08-13] MEDS ORDERED: ALBUTEROL SO4 0.083% IH SOL 2.5 MG/3 ML VIAL.NEB. NEB PRN (18:51)
[2016-08-13] MEDS ORDERED: METOPROLOL SUCCINATE 50 MG TAB.SR.24H (FP) PO SCH (22:00)
[2016-08-13] MEDS ORDERED: PIPERACILLIN/TAZOB 3.375 GM/50 ML PRE-DOCKED IVPB ONE (22:00)
[2016-08-13] MEDS ORDERED: CHLORHEXIDINE GLUCONATE 4% CLEANSER FOR DECOLONIZATION TP SCH (22:00)
--- NOTE | 2016-08-13 22:59 | EKG ---
Test Reason : Blood Pressure : / mmHG Vent. Rate : 100 BPM Atrial Rate : 100 BPM P-R Int : 126 ms QRS Dur : 116 ms QT Int : 384 ms P-R-T Axes : 074 038 093 degrees QTc Int : 495 ms NORMAL SINUS RHYTHM POSSIBLE LEFT ATRIAL ENLARGEMENT CANNOT RULE OUT ANTERIOR INFARCT , AGE UNDETERMINED ABNORMAL ECG WHEN COMPARED WITH ECG OF 17-JUN-2016 06:18, QRS DURATION HAS NARROWED CLINICAL CORRELATION IS RECOMMENDED Confirmed by JARED FELIZ, GRACE ([id number]) on 08/13/2016 10:59:15 PM Referred By: Confirmed By:GRACE COLEMAN MD
[2016-08-14] MEDS: HEPARIN NA (PORCINE) 5,000 UNITS/ML 1ML VIAL SQ SCH ×4 (00:03→21:22)
[2016-08-14] MEDS: INSULIN SLIDING SCALE (NOVOLOG) 1 VIAL SQ SCH ×6 (02:30→21:23)
[2016-08-14] MEDS: PIPERACILLIN/TAZOB 2.25 GM 50 ML IVPB SCH ×3 (02:30→17:27)
[2016-08-14 06:11] LABS: HEP B SURFACE AB Non Reactive (.)
[2016-08-14] MEDS: INSULIN DETEMIR 100 UNITS/ML MDV SQ SCH ×2 (06:57→17:27)
[2016-08-14 07:51] LABS: BASOPHIL 0.9 % (0-2.0); EOSINOPHIL 2.2 % (0-4.5); MCH 24.4 pg (25.7-33.7); MCHC 31.9 g/dl (32.0-35.9); MEAN CELL VOLUME 76.6 fl (80-96); MEAN PLT VOLUME 7.6 fl (7.5-11.1); NEUTROPHILS 57.7 % (42.8-82.8); PLATELET COUNT 294 K/MM3 (134-434); RDW 17.6 % (11.9-15.9); WHITE BLOOD COUNT 12.1 K/mm3 (4.0-10.0)
[2016-08-14] MEDS ORDERED: CALCIUM ACETATE 667 MG CAPSULE (FP) PO SCH (08:00)
[2016-08-14] MEDS ORDERED: TAMSULOSIN HCL 0.4 MG CAP.ER.24H (FP) PO SCH (08:30)
[2016-08-14] MEDS ORDERED: HEPARIN NA (PORCINE) 5,000 UNITS/ML 1ML VIAL ONE (09:20)
[2016-08-14] MEDS: MUPIROCIN 2% TOPICAL OINTMENT FOR DECOLONIZATION NS SCH (09:51)
[2016-08-14 09:54] LABS: CALCIUM 7.8 mg/dL (8.5-10.1); CREATININE 4.8 mg/dL (0.7-1.3)
[2016-08-14] MEDS ORDERED: amLODIPine BESYLATE 10 MG TABLET (FP) PO SCH (10:00)
[2016-08-14] MEDS ORDERED: CHOLECALCIFEROL (VITAMIN D3) 1,000 UNIT TABLET (FP) PO SCH (10:00)
[2016-08-14] MEDS ORDERED: FINASTERIDE 5 MG TABLET (FP) PO SCH (10:00)
[2016-08-14] MEDS ORDERED: VITAMIN B COMP W-C 1 EA TABLET PO SCH (10:00)
[2016-08-14] MEDS ORDERED: ONDANSETRON 4 MG/2 ML VIAL IVPUSH PRN ×2 (10:07→11:50)
[2016-08-14] MEDS ORDERED: MIDAZOLAM HCL 2 MG/2 ML SINGLE DOSE VIAL ONE (10:11)
[2016-08-14] MEDS ORDERED: LIDOCAINE HCL 1%, 10 MG/ML (50 mL VIAL) IJ ONE ×2 (10:40)
--- NOTE | 2016-08-14 11:08 | OP ---
Operative Note - Note: Operative Date: 08/14/16 Pre-Operative Diagnosis: Malfunctioning permacath Operation: permacath exchange Post-Operative Diagnosis: Same as Pre-op Surgeon: Tonio Longoria Anesthesia: Fractional Estimated Blood Loss (mls): 5 Operative Report Dictated: Yes
--- NOTE | 2016-08-14 11:12 | PN ---
Progress Note (short form) - Note Progress Note: VAscular Surgery S/P permacath exchange. Can use for HD S/P debridement yest Will need saline moist dressing changes, -- can go home on santyl. CAn follow up in wound care clinic on friday Please make pt a appt prior to DC -- [phone] Will do vein mapping then and book pt for outpt AVF placement. Tonio Longoria DO
[2016-08-14] MEDS ORDERED: ALBUTEROL SO4 0.083% IH SOL 2.5 MG/3 ML VIAL.NEB. NEB PRN (11:50)
[2016-08-14] MEDS: CALCIUM ACETATE 667 MG CAPSULE (FP) PO SCH ×3 (12:02→17:28)
--- NOTE | 2016-08-14 13:43 | PN ---
Progress Note (short form) - Note Progress Note: just returned from permacath placement s/p debridement of ulcer yesterday refusing exam, refusing to let me see the debrided ulcer "you are not in charge" "Dr Longoria is discharging me tomorrow" "I am leaving" sorry that I cannot help in the care of this patient will sign off Problem List - Problems (1) Hyperglycemia Code(s): R73.9 - HYPERGLYCEMIA, UNSPECIFIED (2) Volume overload Code(s): E87.70 - FLUID OVERLOAD, UNSPECIFIED (3) Leukocytosis Code(s): D72.829 - ELEVATED WHITE BLOOD CELL COUNT, UNSPECIFIED (4) Infected decubitus ulcer Code(s): L89.90 - PRESSURE ULCER OF UNSPECIFIED SITE, UNSPECIFIED STAGE
--- NOTE | 2016-08-14 13:52 | PATH ---
Surgical Pathology Report Patient Name: RUTH ORANTES Med. Rec. #: [id number] /Age/Gender: 1950 (Age: 66) / M Account: [id number] Location: [facility] MED/SURG Taken: 08/13/2016 Received: 08/13/2016 Reported: 08/14/2016 Physicians: Tonio Longoria Specimen(s) Received DEBRIDED TISSUE RIGHT SACRAL AREA Clinical History Decubitus ulcer Final Diagnosis SOFT TISSUE, RIGHT SACRAL AREA, DEBRIDEMENT: GANGRENOUS NECROSIS. Electronically Signed Huang Tenorio M.D. Gross Description Received in formalin labeled "debrided tissue right sacral area," is a 3.1 x 3.0 x 0.4 cm aggregate of [place], necrotic soft tissue fragments. Coding File Clerk sections are submitted in one cassette. 08/13/201608/13/2016
--- NOTE | 2016-08-14 14:22 | OP ---
DATE OF OPERATION: 08/13/2016 PREOPERATIVE DIAGNOSIS: Sacral and right hip ulcer. POSTOPERATIVE DIAGNOSIS: Sacral and right hip ulcer. PROCEDURE PERFORMED: Incisional debridement of skin and subcutaneous tissue sacrum and incision and drainage of right hip ulcer. SURGEON: Tnoio Hinson MD ANESTHESIA: Fractional. ESTIMATED BLOOD LOSS: 50 mL. INDICATIONS: The patient is a 66-year-old male who comes in with malfunctioning PermCath and sugars of 700. He was admitted to the ICU. At the same time it was found that he had a necrotic sacral ulcer and his PermCath cannot be changed due to the fact that he might have infection. The patient was consented for the procedure understanding to all risks, benefits and alteratives. PROCEDURE IN DETAIL: He was taken to the operating room and once in the operating room he was placed on the operating table a left lateral decubitus position. The sacrum from the right hip was prepped and draped in a sterile surgical manner. We then injected 10 mL of 1% lidocaine in the sacrum and 10 mL 1% lidocaine over the right hip. We then went ahead and using a No. 15 blade removed all the necrotic tissue from the sacrum. Pus was found in the sacrum as well and that was cultured. All the necrotic tissue was removed for skin and subcutaneous tissue. We then went to the right hip ulcer and using a 15 blade we were able to make an incision and drainage of the area was performed. Very minimal pus was found there. It was pretty clean underneath. At this point wounds were both well-irrigated. We went ahead and placed saline moist dressing in the sacrum and placed bacitracin in the right hip ulcer, 4 x 4s, ABD pads and tape was placed. The patient tolerated the procedure well without complications. The patient was transferred to PACU in stable condition. TONIO HINSON DO [id number]
[2016-08-14] MEDS ORDERED: VANCOMYCIN 1,250 MG in DEXTROSE 5%-WATER - 250 ML IVPB ONE (16:38)
--- NOTE | 2016-08-14 16:41 | PN ---
Teaching Attending Note Name of Resident: Harjinder Isaac ATTENDING PHYSICIAN STATEMENT I saw and evaluated the patient. I reviewed the resident's note and discussed the case with the resident. I agree with the resident's findings and plan as documented. SUBJECTIVE:states he "feels fine". does not want to answer specific questions about his well being OBJECTIVE: Last Vital Signs Temp Pulse Resp BP Pulse Ox 98.5 F 87 18 140/81 97 08/14/16 15:43 08/14/16 15:43 08/14/16 15:43 08/14/16 15:43 08/14/16 12:30 General NAD CV S1 S2 RRR no murmur/rub/gallop Lungs CTA B/L no wheezing/rales/rhonchi ASSESSMENT AND PLAN: 66yo M with PMH HTN. COPD, CAD, ESRD on HD, and obstructive uropathy presented to the ER and was admitted for further evaluation of their emergent condition 1. DKA-likely due to infection vs non-compliance. last a1c 15.9. sugars controlled here not requiring coverage. cont levemir at present time. encourage compliance at home. 2. Volume overload- NPO for permacath placement. plan to receive HD afterwards. will need maping for fistula placement 3. Hypokalemia- improved 4. Stage 4 sacral decubitus ulcer-refused me to evaluate. concern for OM. unaware if it went to the bone. check ESR/CRP. vanco level below therapeutic range. did not receive dose yesterday. will give today and check level tomorrow. f/u wcx. on zosyn day 3. 5. obstructive uropathy-chronic joyner. on flomax/proscar 6. Microcytic anemia- no signs of bleeding. Hgb above baseline. recent iron studies noted. anemia of chronic disease 7. DVT ppx- hep sq 8. pt states he has to leave tomorrow for personal reasons. explained that we need wound cx to determine sensitivities so appropriate abx can be given. states to give me a PICC line and let me go home.
[2016-08-14] MEDS ORDERED: INSULIN (NOVOLOG) ASPART 100 UNITS/ML 10ML VIAL ONE (17:24)
[2016-08-14] MEDS: AMINO ACIDS/PROTEIN HYDROLYS 30 ML LIQUID.PKT PO SCH (17:37)
--- NOTE | 2016-08-14 17:51 | PN ---
Physical Exam: SUBJECTIVE: Patient seen and examined Pt is feeling well No s/s of acute distress Pt has permacath placed today denies pain no fever or chills no chest pain, palpitation or shortness of breath OBJECTIVE: Vital Signs Period Temp Pulse Resp BP Sys/Vogt Pulse Ox Last 24 Hr 98.2 F-98.8 F 79-94 16-20 119-154/62-82 95-99 GENERAL: Awake, alert, and fully oriented, in no acute distress. HEAD: Normal with no signs of trauma. LUNGS:diminished to auscultation b/l. No wheezes. No accessory muscle use. HEART: Regular rate and rhythm, normal S1 and S2 with systolic murmur 2/6, rub or gallop. ABDOMEN: Soft, nontender, not distended, normoactive bowel sounds, no guarding, no rebound, no masses. No hepatomegaly or splenomegaly. Starks cath in place MUSCULOSKELETAL: Normal range of motion at all joints. No bony deformities or tenderness. No CVA tenderness.. LOWER EXTREMITIES: 2+ pulses, warm, well-perfused. No calf tenderness. 1+ lower ext edema NEUROLOGICAL: Normal speech. Normal gait. PSYCHIATRIC: Cooperative. Good eye contact. Appropriate mood and affect. SKIN: Warm, dry, normal turgor, no rashes or lesions noted, normal capillary refill. Sacral wounds covered with dressing. left femoral Shiley access in place. Laboratory Results - last 24 hr 08/12/16 08/12/16 08/13/16 23:10 23:10 17:42 WBC RBC Hgb Hct MCV MCHC RDW Plt Count MPV Neutrophils % Lymphocytes % Monocytes % Eosinophils % Basophils % Sodium Potassium Chloride Carbon Dioxide Anion Gap BUN Creatinine POC Glucometer [phone] Random Glucose Calcium Random Vancomycin Hepatitis A Ab Total Negative Hep Bs Antigen Negative Hep Bs Antibody Non reactive Hep B Core Total Ab Negative Hepatitis C Antibody 0.1 08/13/16 08/14/16 08/14/16 23:53 02:28 06:30 WBC RBC Hgb Hct MCV MCHC RDW Plt Count MPV Neutrophils % Lymphocytes % Monocytes % Eosinophils % Basophils % Sodium 136 Potassium 3.5 Chloride 97 L Carbon Dioxide 27 Anion Gap 12 BUN 34 H Creatinine 4.8 H D POC Glucometer 149 113 Random Glucose 65 L D Calcium 7.8 L Random Vancomycin 10.5 Hepatitis A Ab Total Hep Bs Antigen Hep Bs Antibody Hep B Core Total Ab Hepatitis C Antibody 08/14/16 08/14/16 08/14/16 06:30 06:55 12:24 WBC 12.1 H RBC 3.96 L Hgb 9.7 L Hct 30.3 L MCV 76.6 L MCHC 31.9 L RDW 17.6 H Plt Count 294 MPV 7.6 Neutrophils % 57.7 Lymphocytes % 28.4 D Monocytes % 10.8 H Eosinophils % 2.2 D Basophils % 0.9 Sodium Potassium Chloride Carbon Dioxide Anion Gap BUN Creatinine POC Glucometer 76 79 Random Glucose Calcium Random Vancomycin Hepatitis A Ab Total Hep Bs Antigen Hep Bs Antibody Hep B Core Total Ab Hepatitis C Antibody 08/14/16 17:22 WBC RBC Hgb Hct MCV MCHC RDW Plt Count MPV Neutrophils % Lymphocytes % Monocytes % Eosinophils % Basophils % Sodium Potassium Chloride Carbon Dioxide Anion Gap BUN Creatinine POC Glucometer 328 Random Glucose Calcium Random Vancomycin Hepatitis A Ab Total Hep Bs Antigen Hep Bs Antibody Hep B Core Total Ab Hepatitis C Antibody Active Medications Generic Name Dose Route Start Last Admin Trade Name Freq PRN Reason Stop Dose Admin Albuterol Sulfate 1 amp 08/14/16 11:50 Ventolin 0.083% Nebulizer Soln - NEB Q4H PRN SHORT OF BREATH/WHEEZING Amino Acids 30 ml 08/14/16 17:30 08/14/16 17:37 Prosource No Carb Liquid Pkt PO 30 ml BID@0800,1730 AKOSUA Administration Amlodipine Besylate 10 mg 08/15/16 10:00 Norvasc - PO DAILY AKOSUA Calcium Acetate 1,334 mg 08/14/16 12:00 08/14/16 17:28 Phoslo - PO 1,334 mg TIDCM AKOSUA Administration Cholecalciferol 2,000 unit 08/15/16 10:00 Vitamin D3 - PO DAILY AKOSUA Finasteride 5 mg 08/15/16 10:00 Proscar - PO DAILY AKOSUA Heparin Sodium (Porcine) 5,000 unit 08/14/16 14:00 08/14/16 13:35 Heparin - SQ 5,000 unit TID AKOSUA Administration Piperacillin Sod/Tazobactam Sod 50 mls @ 100 mls/hr 08/14/16 18:00 08/14/16 17: 27 Zosyn 2.25gm Ivpb (Pre-Docked) IVPB 100 mls/hr Q8H-IV AKOSUA Administration Protocol Vancomycin HCl 1,250 mg/ 250 mls @ 250 mls/2 hr 08/14/16 16:38 08/14/16 17:27 Dextrose IVPB 08/14/16 18:37 250 mls/2 hr ONCE ONE Administration Insulin Aspart 1 vial 08/14/16 14:00 08/14/16 17:26 Novolog Vial Sliding Scale - SQ 8 units Q4HPO AKOSUA Administration Protocol Insulin Detemir 20 units 08/14/16 16:30 08/14/16 17:27 Levemir Vial SQ 20 units BIDAC AKOSUA Administration Metoprolol Succinate 50 mg 08/14/16 22:00 Toprol Xl - PO HS AKOSUA Multivit/Ca Carb/B Cmplx/FA/Prenat 1 tablet 08/15/16 10:00 Nephro-Rebecca - PO DAILY AKOSUA Tamsulosin HCl 0.8 mg 08/15/16 08:30 Flomax - PO DAILY@0830 AKOSUA CBC, BMP 08/14/16 06:30 08/14/16 06:30 ASSESSMENT/PLAN: 66 year old male with pmh HTN, COPD, and [place] (01/23/16), hx of chronic UTIs, CKD stage 5 on HD , recurrent UTI rt chronic obstructive uropathy, BPH presented to the ED with shortness of breath after missing dialysis on Friday with due dialysis access malfunction was found to have Hyperglycemia Diabetes Start Levemir 20U BID Novolog sliding scale BGM BMP in am CKD stage 5 on dialysis received dialysis yesterday with 4 liter removed Improved BUN, Cr [facility] Port-a-cath placement today Dialysis today HTN resume antihypertensives Sacral Stage 4 pressure ulcer r/o osteomyelitis Sacral wound 7cm diameter, 4cm in depth left hip wound Dr Longoria involved Went for wound debridment yesterday Wound culture collected Vancomycin Zosyn ID consulted Anemia Likely rt CKD hbg 9.9, at baseline Monitor cbc COPD bronchodilators Acute DKA/HHNK (resolved) Acute resp distress likely from volume overload from incomplete dialysis on Friday (resolved) PseudoHyponatremia (resolved) FEN Fluid: None Electrolytes: chemistry in am Nutrition: renal diet Disposition: pending wound culture result Visit type - Emergency Visit Emergency Visit: Yes ED Registration Date: 05/01/17 Care time: The patient presented to the Emergency Department on the above date and was hospitalized for further evaluation of their emergent condition. - New Patient This patient is new to me today: Yes - Critical Care Critical Care patient: No - Discharge Referral Referred to [facility] No
--- NOTE | 2016-08-14 21:15 | PN ---
Progress Note (short form) - Note Progress Note: Renal Follow up for ESRD on HD Pt seen and examined at the bedside s/p HD catheter exchange no acute complaints no N/V/D Denies any sob today Vital Signs Temperature 98.2 F 08/14/16 16:30 Pulse Rate 94 H 08/14/16 16:30 Respiratory Rate 20 08/14/16 16:30 Blood Pressure 119/72 08/14/16 16:30 O2 Sat by Pulse Oximetry (%) 97 08/14/16 14:00 Intake & Output 08/11/16 08/12/16 08/13/16 08/14/16 23:59 23:59 23:59 23:59 Intake Total 50 775 1075 Output Total 200 350 805 Balance -150 425 270 Weight 221 lb 216 lb 0.848 oz Gen: NAD, awake CVS: RRR, No M/R Lungs: Dec BS throughout the lung sarabia, no rales Abd: Soft NT/ND Ext: 1+ edema, no clubbing or edema CBC, BMP 08/14/16 06:30 08/14/16 06:30 Laboratory Tests 06/25/16 08/14/16 07:40 06:30 Calcium 7.2 L 7.8 L Phosphorus 3.8 Magnesium 1.9 Current Medications Albuterol Sulfate (Ventolin 0.083% Nebulizer Soln -) 1 amp NEB Q4H PRN PRN Reason: SHORT OF BREATH/WHEEZING Amino Acids (Prosource No Carb Liquid Pkt) 30 ml PO BID@0800,1730 [facility] Last Admin: 08/14/16 17:37 Dose: 30 ml Amlodipine Besylate (Norvasc -) 10 mg PO DAILY [facility] Calcium Acetate (Phoslo -) 1,334 mg PO TIDCM [facility] Last Admin: 08/14/16 17:28 Dose: 1,334 mg Cholecalciferol (Vitamin D3 -) 2,000 unit PO DAILY [facility] Finasteride (Proscar -) 5 mg PO DAILY [facility] Heparin Sodium (Porcine) (Heparin -) 5,000 unit SQ TID [facility] Last Admin: 08/14/16 13:35 Dose: 5,000 unit Piperacillin Sod/Tazobactam Sod (Zosyn 2.25gm Ivpb (Pre-Docked)) 50 mls @ 100 mls/hr IVPB Q8H-IV AKOSUA PRN Reason: Protocol Last Admin: 08/14/16 17:27 Dose: 100 mls/hr Insulin Aspart (Novolog Vial Sliding Scale -) 1 vial SQ Q4HPO AKOSUA PRN Reason: Protocol Last Admin: 08/14/16 17:26 Dose: 8 units Insulin Detemir (Levemir Vial) 20 units SQ BIDAC [facility] Last Admin: 08/14/16 17:27 Dose: 20 units Metoprolol Succinate (Toprol Xl -) 50 mg PO HS [facility] Multivit/Ca Carb/B Cmplx/FA/Prenat (Nephro-Rebecca -) 1 tablet PO DAILY [facility] Tamsulosin HCl (Flomax -) 0.8 mg PO DAILY@0830 [facility] A/P 66 year old Gentleman with PMhx of ESRD on HD (recently started on HD), BPH with chronic indwelling Joyner, Hypertension, CAD who presented with mal functioning dialysis catheter and found to have volume overload with leukocytosis and sacral decubitus ulcer. #ESRD on HD with malfunctiong HD catheter s/p catheter exchange today no acute indication for dialysis today plan for dialysis in AM tomorrow and then removal of femoral shiely if permacath with good function #Leukocytosis with large sacral decubitis ulcer and chronic indwelling Joyner Wound cultures grew multiple organisms Blood cultures w/o growth Will re-dose vanco with HD tomorrow Abx Tx as per primary #Anemia (CKD related) no acute indication for transfusion will continue WILY with HD #BPH with chronic indwelling joyner continue joyner for now continue flomax and proscar #Hypertension continue amlodpine, metoprolol #IDDM/DKA continue management as per primary Thank you Dominick Vanegas DO
[2016-08-14] MEDS: METOPROLOL SUCCINATE 50 MG TAB.SR.24H (FP) PO SCH (21:23)
[2016-08-14] MEDS ORDERED: MUPIROCIN 2% TOPICAL OINTMENT FOR DECOLONIZATION NS SCH (22:00)
[2016-08-14] MEDS ORDERED: CHLORHEXIDINE GLUCONATE 4% CLEANSER FOR DECOLONIZATION TP SCH (22:00)
[2016-08-15] MEDS: INSULIN SLIDING SCALE (NOVOLOG) 1 VIAL SQ SCH ×5 (02:11→22:40)
[2016-08-15] MEDS: PIPERACILLIN/TAZOB 2.25 GM 50 ML IVPB SCH ×2 (02:12→14:48)
[2016-08-15] MEDS: HEPARIN NA (PORCINE) 5,000 UNITS/ML 1ML VIAL SQ SCH ×3 (07:01→22:02)
[2016-08-15] MEDS: INSULIN DETEMIR 100 UNITS/ML MDV SQ SCH ×2 (07:02→17:56)
[2016-08-15] MEDS: CALCIUM ACETATE 667 MG CAPSULE (FP) PO SCH ×3 (09:22→17:56)
--- NOTE | 2016-08-15 09:22 | PATH ---
Surgical Pathology Report Patient Name: RUTH ORANTES Med. Rec. #: [id number] /Age/Gender: 1950 (Age: 66) / M Account: [id number] Location: [facility] MED/SURG Taken: 08/14/2016 Received: 08/14/2016 Reported: 08/15/2016 Physicians: Irasema Longoria M.D. Specimen(s) Received PERMA CATHETER Clinical History Clotted permacath Final Diagnosis TUB TENDER, REMOVAL: TUB TENDER CONSISTENT WITH PERMACATH (GROSS ONLY). Electronically Signed Huang Tenorio M.D. Gross Description Received fresh labeled "permacath," is a 40 cm in length double lumen catheter. No soft tissue is present. No sections are submitted, gross only. /08/14/201608/14/2016
[2016-08-15] MEDS: AMINO ACIDS/PROTEIN HYDROLYS 30 ML LIQUID.PKT PO SCH ×2 (09:23→17:56)
[2016-08-15] MEDS: TAMSULOSIN HCL 0.4 MG CAP.ER.24H (FP) PO SCH (09:23)
--- NOTE | 2016-08-15 09:39 | PN ---
Progress Note (short form) - Note Progress Note: Breathing feels overall better today. No CP. Less SOB. Intake & Output 08/12/16 08/13/16 08/14/16 08/15/16 23:59 23:59 23:59 23:59 Intake Total 50 775 1075 Output Total 946 224 9239 400 Balance -150 425 70 -400 Weight 221 lb 216 lb 0.848 oz Last Vital Signs Temp Pulse Resp BP Pulse Ox 97.7 F 82 20 132/68 97 08/15/16 09:36 08/15/16 09:36 08/15/16 09:36 08/15/16 09:36 08/14/16 21:00 Active Medications Albuterol Sulfate (Ventolin 0.083% Nebulizer Soln -) 1 amp NEB Q4H PRN PRN Reason: SHORT OF BREATH/WHEEZING Amino Acids (Prosource No Carb Liquid Pkt) 30 ml PO BID@0800,1730 [facility] Last Admin: 08/15/16 09:23 Dose: 30 ml Amlodipine Besylate (Norvasc -) 10 mg PO DAILY [facility] Calcium Acetate (Phoslo -) 1,334 mg PO TIDCM [facility] Last Admin: 08/15/16 09:22 Dose: 1,334 mg Cholecalciferol (Vitamin D3 -) 2,000 unit PO DAILY [facility] Epoetin Neftaly (Epogen -) 4,000 units IVPUSH ONCE ONE Stop: 08/15/16 06:01 Finasteride (Proscar -) 5 mg PO DAILY [facility] Heparin Sodium (Porcine) (Heparin -) 5,000 unit SQ TID [facility] Last Admin: 08/15/16 07:01 Dose: 5,000 unit Piperacillin Sod/Tazobactam Sod (Zosyn 2.25gm Ivpb (Pre-Docked)) 50 mls @ 100 mls/hr IVPB Q8H-IV [facility] PRN Reason: Protocol Last Admin: 08/15/16 02:12 Dose: 100 mls/hr Vancomycin HCl 1,000 mg/ (Dextrose) 250 mls @ 250 mls/hr IVPB ONCE ONE PRN Reason: Protocol Stop: 08/15/16 06:59 Insulin Aspart (Novolog Vial Sliding Scale -) 1 vial SQ Q4HPO [facility] PRN Reason: Protocol Last Admin: 08/15/16 06:53 Dose: Not Given Insulin Detemir (Levemir Vial) 20 units SQ BIDAC [facility] Last Admin: 08/15/16 07:02 Dose: 20 units Metoprolol Succinate (Toprol Xl -) 50 mg PO HS [facility] Last Admin: 08/14/16 21:23 Dose: 50 mg Multivit/Ca Carb/B Cmplx/FA/Prenat (Nephro-Rebecca -) 1 tablet PO DAILY [facility] Tamsulosin HCl (Flomax -) 0.8 mg PO DAILY@0830 [facility] Last Admin: 08/15/16 09:23 Dose: 0.8 mg Gen: Awake and alert, NAD Heart: RRR Lung: bibasilar rales Abd: soft, nontender Ext: no edema Laboratory Results - last 24 hr 08/14/16 08/14/16 08/14/16 06:30 12:24 17:22 Sodium 136 Potassium 3.5 Chloride 97 L Carbon Dioxide 27 Anion Gap 12 BUN 34 H Creatinine 4.8 H D POC Glucometer 79 328 Random Glucose 65 L D Calcium 7.8 L C-Reactive Protein Random Vancomycin 10.5 08/14/16 08/15/16 08/15/16 21:16 02:08 06:00 Sodium Potassium Chloride Carbon Dioxide Anion Gap BUN Creatinine POC Glucometer 383 241 Random Glucose Calcium C-Reactive Protein Random Vancomycin 21.570 08/15/16 08/15/16 06:10 06:52 Sodium Potassium Chloride Carbon Dioxide Anion Gap BUN Creatinine POC Glucometer 161 Random Glucose Calcium C-Reactive Protein 13.4 H D Random Vancomycin ASSESSMENT AND PLAN: Acute on Chronic LV Diastolic Heart Failure Volume Overload ESRD on HD Pulmonary HTN Sacral Decubitus Ulcer infection DKA resolved - HD per renal with ultrafiltration - LOcal wound care - antibiotics per ID - glucose control - enforced importance of compliance with medications and HD - DVT prophylaxis - Will need to assess for home O2 prior to D/C Dr Tang
[2016-08-15] MEDS ORDERED: EPOETIN ALFA 2,000 UNITS/1 ML VIAL IVPUSH ONE (11:00)
--- NOTE | 2016-08-15 11:03 | OP ---
DATE OF OPERATION: 08/14/2016 PROCEDURE: PermCath exchange. PREOPERATIVE DIAGNOSIS: Malfunctioning PermCath. POSTOPERATIVE DIAGNOSIS: Malfunctioning PermCath. SURGEON: Tonio Hinson DO ANESTHESIA: Fractional. BLOOD LOSS: 5 mL INDICATION: The patient is a 66-year-old male that comes in with a malfunctioning PermCath. It was decided it would need to be exchanged. Patient consented for the procedure. Understanding all risks, benefits, alternatives, he was then taken to the operating room. PROCEDURE: Once in the operating room, he was placed on the operating table in supine manner and the area of the right neck and chest were prepped and draped in a sterile surgical manner. We then went ahead and injected 10 mL lidocaine 1% at the PermCath exit site. We then dissected out the cuff, and the PermCath was freed up. We then placed a 0.035 floppy guidewire under fluoroscopy into the catheter, and the catheter was removed. We then went ahead and changed our gloves for sterility purposes and placed a new 23 PermCath over the guidewire into the vein under fluoroscopy. The guidewire was removed. We then rita back on each port of the catheter. There was good flow. Heparinized saline was injected, 2000 units of IV heparin was injected into each port. Two simple stitches of 4-0 Biosyn were placed at the exit site for the PermCath, 3-0 nylon used, and the catheter was attached to the skin. Biopatch, 4x4s and Tegaderm were placed. Patient tolerated the procedure with no complication. Patient was transferred back in stable condition where a chest x-ray will be obtained. TONIO HINSON DO [employer]/[id number]
[2016-08-15] MEDS ORDERED: VANCOMYCIN 1,000 MG in DEXTROSE 5%-WATER - 250 ML IVPB ONE (12:01)
[2016-08-15 12:15] LABS: CREATININE 5.7 mg/dL (0.7-1.3)
--- NOTE | 2016-08-15 12:30 | PN ---
Physical Exam: SUBJECTIVE: Patient seen and examined Pt is refusing a lot of care today yesterday refused to the infectious disease doctor low grade fever with Tmax 100.4 Denies pain, palpitation, shortness of breath OBJECTIVE: Vital Signs Period Temp Pulse Resp BP Sys/Vogt Pulse Ox Last 24 Hr 97.7 F-100.4 F 71-100 18-20 119-156/62-85 97-97 GENERAL: Awake, alert, and fully oriented, in no acute distress. HEAD: Normal with no signs of trauma. LUNGS:diminished to auscultation b/l. No wheezes. No accessory muscle use. HEART: Regular rate and rhythm, normal S1 and S2 with systolic murmur 2/6, rub or gallop. ABDOMEN: Soft, nontender, not distended, normoactive bowel sounds, no guarding, no rebound, no masses. No hepatomegaly or splenomegaly. Starks cath in place MUSCULOSKELETAL: Normal range of motion at all joints. No bony deformities or tenderness. No CVA tenderness.. LOWER EXTREMITIES: 2+ pulses, warm, well-perfused. No calf tenderness. 1+ lower ext edema NEUROLOGICAL: Normal speech.gait not observed PSYCHIATRIC: uncooperative. Good eye contact. Appropriate mood and affect. SKIN: Warm, dry, normal turgor, no rashes or lesions noted, normal capillary refill. Sacral wounds covered with dressing. left femoral Shiley access in place. Laboratory Results - last 24 hr 08/14/16 08/14/16 08/14/16 12:24 17:22 21:16 ESR POC Glucometer 79 328 383 C-Reactive Protein Vancomycin Trough Random Vancomycin 08/15/16 08/15/16 08/15/16 02:08 06:00 06:10 ESR POC Glucometer 241 C-Reactive Protein 13.4 H D Vancomycin Trough Random Vancomycin 21.570 08/15/16 08/15/16 08/15/16 06:10 06:52 10:00 ESR 76 H POC Glucometer 161 C-Reactive Protein Vancomycin Trough 21.589 H* D Random Vancomycin Active Medications Generic Name Dose Route Start Last Admin Trade Name Freq PRN Reason Stop Dose Admin Albuterol Sulfate 1 amp 08/14/16 11:50 Ventolin 0.083% Nebulizer Soln - NEB Q4H PRN SHORT OF BREATH/WHEEZING Amino Acids 30 ml 08/14/16 17:30 08/15/16 09:23 Prosource No Carb Liquid Pkt PO 30 ml BID@0800,1730 [facility] Administration Amlodipine Besylate 10 mg 08/15/16 10:00 Norvasc - PO DAILY [facility] Calcium Acetate 1,334 mg 08/14/16 12:00 08/15/16 09:22 Phoslo - PO 1,334 mg TIDCM [facility] Administration Cholecalciferol 2,000 unit 08/15/16 10:00 Vitamin D3 - PO DAILY [facility] Finasteride 5 mg 08/15/16 10:00 Proscar - PO DAILY [facility] Heparin Sodium (Porcine) 5,000 unit 08/14/16 14:00 08/15/16 07:01 Heparin - SQ 5,000 unit TID [facility] Administration Piperacillin Sod/Tazobactam Sod 50 mls @ 100 mls/hr 08/14/16 18:00 08/15/16 02: 12 Zosyn 2.25gm Ivpb (Pre-Docked) IVPB 100 mls/hr Q8H-IV [facility] Administration Protocol Vancomycin HCl 1,000 mg/ 250 mls @ 250 mls/hr 08/15/16 12:01 08/15/16 12:17 Dextrose IVPB 08/15/16 13:00 Not Given ONCE ONE Protocol Insulin Aspart 1 vial 08/14/16 14:00 08/15/16 06:53 Novolog Vial Sliding Scale - SQ Not Given Q4HPO [facility] Protocol Insulin Detemir 20 units 08/14/16 16:30 08/15/16 07:02 Levemir Vial SQ 20 units BIDAC [facility] Administration Metoprolol Succinate 50 mg 08/14/16 22:00 08/14/16 21:23 Toprol Xl - PO 50 mg HS [facility] Administration Multivit/Ca Carb/B Cmplx/FA/Prenat 1 tablet 08/15/16 10:00 Nephro-Rebecca - PO DAILY [facility] Tamsulosin HCl 0.8 mg 08/15/16 08:30 08/15/16 09:23 Flomax - PO 0.8 mg DAILY@0830 [facility] Administration CBC, BMP 08/14/16 06:30 Microbiology 08/13/16 13:29 Decubiti Gram Stain - Final 08/12/16 14:12 Back Gram Stain - Final 08/12/16 14:12 Back Wound Culture - Final Beta Hem Streptococcus Group G Streptococcus Viridans 08/13/16 13:29 Decubiti Wound Culture - Preliminary Beta Hem Streptococcus Group F Diphtheroid/Corynebacterium Streptococcus Viridans 08/12/16 14:00 Blood - Peripheral Venous Blood Culture - Preliminary NO GROWTH OBTAINED AFTER 48 HOURS, INCUBATION TO CONTINUE FOR 3 DAYS. 08/12/16 14:00 Blood - Peripheral Venous Blood Culture - Preliminary NO GROWTH OBTAINED AFTER 48 HOURS, INCUBATION TO CONTINUE FOR 3 DAYS. Laboratory Tests 08/15/16 08/15/16 08/15/16 06:00 06:10 06:10 ESR 76 H C-Reactive Protein 13.4 H D Vancomycin Trough Random Vancomycin 21.570 08/15/16 10:00 ESR C-Reactive Protein Vancomycin Trough 21.589 H* D Random Vancomycin ASSESSMENT/PLAN: 66 year old male with pmh HTN, COPD, and AR (01/23/16), CKD stage 5 on HD , recurrent UTI rt chronic obstructive uropathy, BPH presented to the ED with shortness of breath after missing dialysis on Friday with due dialysis access malfunction was found to have Hyperglycemia Diabetes on Levemir 20U BID Novolog sliding scale BGM BMP in am CKD stage 5 on dialysis Received dialysis Friday with 4 liter removed Pt to have dialysis today Dr Vanegas on case Lani placed Friday08/12/16 for dialysis catheter Port-a-cath placed yesterday Will NISH Tavarez if Port-a-cath working well. HTN on Norvasc 10mg Po daily On Toprol XL 50mg Po daily Sacral Stage 4 pressure ulcer with sepsis likely from osteomyelitis Fever overnight 100.4 leukocytosis 12.1 Sacral wound 7cm diameter, 4cm in depth left hip wound Dr Longoria involved Went for wound debridment yesterday Wound culture collected, positive for beta Hem Streptococcus Group F, Diphtheroid/Corynebacterium, Streptococcus Viridans On Zosyn, will continue Vancomycin through above 20, therefore no vancomycin for today Will check level again in am ID consulted but pt refused their care yesterday, will educate patient about importance of treatment infections Anemia Likely rt CKD hbg 9.7, at baseline Monitor cbc COPD bronchodilators Acute DKA/HHNK (resolved) Acute resp distress likely from volume overload from incomplete dialysis on Friday (resolved) PseudoHyponatremia (resolved) FEN Fluid: None Electrolytes: chemistry in am Nutrition: renal diet Disposition: pending wound culture sensitivity. Visit type - Emergency Visit Emergency Visit: Yes ED Registration Date: 08/12/16 Care time: The patient presented to the Emergency Department on the above date and was hospitalized for further evaluation of their emergent condition. - New Patient This patient is new to me today: Yes - Critical Care Critical Care patient: No - Discharge Referral Referred to [facility] Med P.C.: No
--- NOTE | 2016-08-15 13:15 | PN ---
Progress Note, Physician History of Present Illness: Patient has ESRD. Receiving hemodialysis. Permath being used for dialysis. The patient has a pre-sacral decubitus , infected and possibly with Osteomyelitis. He is extremely noncompliant. IV antibiotics infusing. - Current Medication List Current Medications: Active Medications Albuterol Sulfate (Ventolin 0.083% Nebulizer Soln -) 1 amp NEB Q4H PRN PRN Reason: SHORT OF BREATH/WHEEZING Amino Acids (Prosource No Carb Liquid Pkt) 30 ml PO BID@0800,1730 [facility] Last Admin: 08/15/16 09:23 Dose: 30 ml Amlodipine Besylate (Norvasc -) 10 mg PO DAILY [facility] Calcium Acetate (Phoslo -) 1,334 mg PO TIDCM [facility] Last Admin: 08/15/16 09:22 Dose: 1,334 mg Cholecalciferol (Vitamin D3 -) 2,000 unit PO DAILY [facility] Finasteride (Proscar -) 5 mg PO DAILY [facility] Heparin Sodium (Porcine) (Heparin -) 5,000 unit SQ TID [facility] Last Admin: 08/15/16 07:01 Dose: 5,000 unit Piperacillin Sod/Tazobactam Sod (Zosyn 2.25gm Ivpb (Pre-Docked)) 50 mls @ 100 mls/hr IVPB Q8H-IV [facility] PRN Reason: Protocol Last Admin: 08/15/16 02:12 Dose: 100 mls/hr Insulin Aspart (Novolog Vial Sliding Scale -) 1 vial SQ Q4HPO [facility] PRN Reason: Protocol Last Admin: 08/15/16 06:53 Dose: Not Given Insulin Detemir (Levemir Vial) 20 units SQ BIDAC [facility] Last Admin: 08/15/16 07:02 Dose: 20 units Metoprolol Succinate (Toprol Xl -) 50 mg PO HS [facility] Last Admin: 08/14/16 21:23 Dose: 50 mg Multivit/Ca Carb/B Cmplx/FA/Prenat (Nephro-Rebecca -) 1 tablet PO DAILY [facility] Tamsulosin HCl (Flomax -) 0.8 mg PO DAILY@0830 [facility] Last Admin: 08/15/16 09:23 Dose: 0.8 mg - Objective Vital Signs: Vital Signs Temperature 97.8 F 08/15/16 09:55 Pulse Rate 62 08/15/16 12:30 Respiratory Rate 18 08/15/16 12:30 Blood Pressure 147/77 08/15/16 12:30 O2 Sat by Pulse Oximetry (%) 97 08/14/16 21:00 Constitutional: Yes: No Distress Eyes: Yes: Conjunctiva Clear Neck: Yes: Trachea Midline Cardiovascular: Yes: Regular Rate and Rhythm, S1, S2 Respiratory: Yes: Regular Gastrointestinal: Yes: Normal Bowel Sounds, Soft Musculoskeletal: Yes: Back Pain, Other (sacral decubitus) Neurological: Yes: Alert, Oriented Labs: CBC, BMP 08/14/16 06:30 08/15/16 10:00 INR, PTT INR 1.43 (0.82-1.09) H 08/12/16 14:00 Problem List - Problems (1) Anemia Code(s): D64.9 - ANEMIA, UNSPECIFIED Qualifiers: (2) CHF (congestive heart failure) Code(s): I50.9 - HEART FAILURE, UNSPECIFIED (3) COPD (chronic obstructive pulmonary disease) Code(s): J44.9 - CHRONIC OBSTRUCTIVE PULMONARY DISEASE, UNSPECIFIED (4) Diabetes Code(s): E11.9 - TYPE 2 DIABETES MELLITUS WITHOUT COMPLICATIONS Qualifiers: Diabetes mellitus type: type 2 Diabetes mellitus complication status: with hyperglycemia Diabetes mellitus custodial insulin use: unspecified 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 NO AV access. Has a huge sacral ulcer. ? Etiology in this ambulatory patient. Plan: Will continue the current regimen. Needs wound care, continued ABX, and dialysis. Needs a permanent AV access. Needs the shiley catheter to be removed. Discussed with the RN to inform Dr. Longoria to remove the femoral catheter. Will follow with you. Chichi Garcia MD
[2016-08-15] MEDS: CHOLECALCIFEROL (VITAMIN D3) 1,000 UNIT TABLET (FP) PO SCH (14:48)
[2016-08-15] MEDS: FINASTERIDE 5 MG TABLET (FP) PO SCH (14:48)
[2016-08-15] MEDS: amLODIPine BESYLATE 10 MG TABLET (FP) PO SCH (14:48)
[2016-08-15] MEDS: VITAMIN B COMP W-C 1 EA TABLET PO SCH (14:49)
--- NOTE | 2016-08-15 16:05 | PN ---
Progress Note, Physician History of Present Illness: Low grade temp noted S/P debridement of sacral wound No focal complaint No c/o chills. No dyspnea/ cough Starks in place - Current Medication List Current Medications: Active Medications Albuterol Sulfate (Ventolin 0.083% Nebulizer Soln -) 1 amp NEB Q4H PRN PRN Reason: SHORT OF BREATH/WHEEZING Amino Acids (Prosource No Carb Liquid Pkt) 30 ml PO BID@0800,1730 [facility] Last Admin: 08/15/16 09:23 Dose: 30 ml Amlodipine Besylate (Norvasc -) 10 mg PO DAILY [facility] Last Admin: 08/15/16 14:48 Dose: 10 mg Amoxicillin/Clavulanate Potassium (Augmentin - 500mg Tablet) 1 tab PO DAILY [facility] Calcium Acetate (Phoslo -) 1,334 mg PO TIDCM [facility] Last Admin: 08/15/16 12:00 Dose: Not Given Cholecalciferol (Vitamin D3 -) 2,000 unit PO DAILY [facility] Last Admin: 08/15/16 14:48 Dose: 2,000 unit Finasteride (Proscar -) 5 mg PO DAILY [facility] Last Admin: 08/15/16 14:48 Dose: 5 mg Heparin Sodium (Porcine) (Heparin -) 5,000 unit SQ TID [facility] Last Admin: 08/15/16 14:49 Dose: Not Given Insulin Aspart (Novolog Vial Sliding Scale -) 1 vial SQ Q4HPO [facility] PRN Reason: Protocol Last Admin: 08/15/16 14:15 Dose: Not Given Insulin Detemir (Levemir Vial) 20 units SQ BIDAC [facility] Last Admin: 08/15/16 07:02 Dose: 20 units Metoprolol Succinate (Toprol Xl -) 50 mg PO HS [facility] Last Admin: 08/14/16 21:23 Dose: 50 mg Multivit/Ca Carb/B Cmplx/FA/Prenat (Nephro-Rebecca -) 1 tablet PO DAILY [facility] Last Admin: 08/15/16 14:49 Dose: Not Given Tamsulosin HCl (Flomax -) 0.8 mg PO DAILY@0830 [facility] Last Admin: 08/15/16 09:23 Dose: 0.8 mg - Objective Vital Signs: Vital Signs Temperature 97.4 F L 08/15/16 15:42 Pulse Rate 85 08/15/16 15:42 Respiratory Rate 20 08/15/16 15:42 Blood Pressure 138/78 08/15/16 15:42 O2 Sat by Pulse Oximetry (%) 97 08/14/16 21:00 Constitutional: Yes: No Distress Eyes: Yes: Conjunctiva Clear Cardiovascular: Yes: Regular Rate and Rhythm, S1, S2 Respiratory: Yes: CTA Bilaterally Gastrointestinal: Yes: Normal Bowel Sounds, Soft, Abdomen, Obese. No: Tenderness Integumentary: Yes: Other (catheter R chest no erythema sacral wound deep but clean-no purulence/ foul odor) Labs: CBC, BMP 08/14/16 06:30 08/15/16 10:00 INR, PTT INR 1.43 (0.82-1.09) H 08/12/16 14:00 Assessment/Plan S/P debridement of sacral decubitus ESRD Low grade temp Substitute po augmentin 500mg qd x7d Blood c/s if recurrent T > 101 Local wound care
--- NOTE | 2016-08-15 18:02 | PN ---
Teaching Attending Note Name of Resident: Harjinder Isaac ATTENDING PHYSICIAN STATEMENT I saw and evaluated the patient. I reviewed the resident's note and discussed the case with the resident. I agree with the resident's findings and plan as documented. SUBJECTIVE:"im fine, can everyone stop asking me" OBJECTIVE: Last Vital Signs Temp Pulse Resp BP Pulse Ox 97.4 F L 85 20 138/78 97 08/15/16 15:42 08/15/16 15:42 08/15/16 15:42 08/15/16 15:42 08/14/16 21:00 refused physical exam ASSESSMENT AND PLAN: 66yo M with PMH HTN. COPD, CAD, ESRD on HD, and obstructive uropathy presented to the ER and was admitted for further evaluation of their emergent condition 1. DKA-likely due to infection vs non-compliance. last a1c 15.9. sugars controlled here not requiring coverage. cont levemir at present time. encourage compliance at home. 2. Volume overload-permacath placed yesterday. plan for HD today and then will remove shiley. will need to f/u with vascular for fistula placement. 3. Hypokalemia- improved 4. Stage 4 sacral decubitus ulcer-Tm 100.4. on vanco/zosyn. will attempt to at least obtain XR of sacrum to evlaute for extension to the bone. pt not agreeable to MRI at [facility] time "im going home after HD". will d/w ID about abx managment at this time. currently on vanco/zosyn. awaiting vanco level. 5. obstructive uropathy-chronic joyner. on flomax/proscar 6. Microcytic anemia- no signs of bleeding. Hgb above baseline. recent iron studies noted. anemia of chronic disease 7. DVT ppx- hep sq 8. states he is leaving after HD because he has things to get done. explained risks of leaving including sepsis leading to multi-organ failure and . said just give me stuff to take at home. encouraged pt to stay until medically stable to go home. verbalized understanding of risks, will consider during HD
[2016-08-15] MEDS: METOPROLOL SUCCINATE 50 MG TAB.SR.24H (FP) PO SCH (21:52)
[2016-08-16] MEDS: INSULIN SLIDING SCALE (NOVOLOG) 1 VIAL SQ SCH ×4 (02:30→14:25)
[2016-08-16] MEDS: HEPARIN NA (PORCINE) 5,000 UNITS/ML 1ML VIAL SQ SCH ×2 (07:03→14:21)
[2016-08-16] MEDS: INSULIN DETEMIR 100 UNITS/ML MDV SQ SCH (07:05)
--- NOTE | 2016-08-16 07:16 | PN ---
Progress Note (short form) - Note Progress Note: s/p permacatheter exchange. Doing well. No complaints. AVSS. Afeb. Prior to discharge, patient needs vein mapping in his non-dominant arm. Once this is done, he can be discharged home and follow-up with Dr. Longoria as out -patient to begin process of elective av fistula. No further surgical intervention at this time.
[2016-08-16] MEDS: AMINO ACIDS/PROTEIN HYDROLYS 30 ML LIQUID.PKT PO SCH (08:16)
[2016-08-16] MEDS: CALCIUM ACETATE 667 MG CAPSULE (FP) PO SCH ×2 (08:17→12:09)
[2016-08-16] MEDS: TAMSULOSIN HCL 0.4 MG CAP.ER.24H (FP) PO SCH (08:17)
[2016-08-16 08:29] LABS: MCHC 31.2 g/dl (32.0-35.9); MEAN PLT VOLUME 7.6 fl (7.5-11.1); PLATELET COUNT 241 K/MM3 (134-434); RDW 17.7 % (11.9-15.9); WHITE BLOOD COUNT 7.9 K/mm3 (4.0-10.0)
[2016-08-16] MEDS ORDERED: AMOX TR/POT CLAV 500MG/125MG TABLETS (FP) PO SCH (10:00)
[2016-08-16] MEDS ORDERED: PT OWN MED DRAWER 7, Y5N ONE (10:47)
[2016-08-16] MEDS: amLODIPine BESYLATE 10 MG TABLET (FP) PO SCH (10:49)
[2016-08-16] MEDS: VITAMIN B COMP W-C 1 EA TABLET PO SCH (10:49)
[2016-08-16] MEDS: CHOLECALCIFEROL (VITAMIN D3) 1,000 UNIT TABLET (FP) PO SCH (10:49)
[2016-08-16] MEDS: FINASTERIDE 5 MG TABLET (FP) PO SCH (10:49)
[2016-08-16] MEDS ORDERED: INSULIN (NOVOLOG) ASPART 100 UNITS/ML 10ML VIAL ONE (12:08)
[2016-08-16 13:01] LABS: ALBUMIN 1.9 g/dl (3.4-5.0); CALCIUM 7.4 mg/dL (8.5-10.1); COCKROFT - GAULT 27.87; CREATININE 3.8 mg/dL (0.7-1.3)
--- NOTE | 2016-08-16 14:11 | PN ---
Progress Note (short form) - Note Progress Note: being discharged ID recommends augmentin x 7 days
[2016-08-16 14:46] VITALS: BP 140/78; PULSE 76; TEMP 97.5
--- NOTE | 2016-08-16 15:33 | PN ---
Teaching Attending Note Name of Resident: Emerson Ng ATTENDING PHYSICIAN STATEMENT I saw and evaluated the patient. I reviewed the resident's note and discussed the case with the resident. I agree with the resident's findings and plan as documented. SUBJECTIVE:"im fine just want to go home" OBJECTIVE: Last Vital Signs Temp Pulse Resp BP Pulse Ox 97.5 F L 76 18 140/78 97 08/16/16 10:00 08/16/16 10:00 08/16/16 10:00 08/16/16 10:00 08/16/16 09:00 refused physical exam ASSESSMENT AND PLAN: 66yo M with PMH HTN. COPD, CAD, ESRD on HD, and obstructive uropathy presented to the ER and was admitted for further evaluation of their emergent condition 1. DKA-likely due to infection vs non-compliance. last a1c 15.9. sugars controlled here not requiring coverage. cont levemir at present time. encourage compliance at home. 2. Volume overload-HD yesterday via permacath was successful. daniel removed. attempted to do vein mapping prior to leaving but unable to be completed as inpatient at this time. pt is scheduled to f/u with Vasc surgery on friday. 3. Hypokalemia- improved 4. Stage 4 sacral decubitus ulcer-afebrile. agreed to XR of sacrum to evaluate for OM. refuses MRI at this time. explained can not r/o OM even if XR is negative. verbalized understanding but that he does not want it at this time and would like to go home. can not treat for OM without diagnosis. will d/c on AUgmentin to complete additional week of abx. 5. obstructive uropathy-chronic joyner. on flomax/proscar. f/u with urology as outpatient 6. Microcytic anemia- no signs of bleeding. Hgb above baseline. recent iron studies noted. anemia of chronic disease 7. DVT ppx- hep sq 8. d/c home with caution
--- NOTE | 2016-08-16 17:27 | DS ---
Physical Exam: SUBJECTIVE: Patient seen and examined at bedside. No complaints but wants to go home. OBJECTIVE: Vital Signs Period Temp Pulse Resp BP Sys/Vogt Pulse Ox Last 24 Hr 97.5 F-98.8 F 74-92 18-20 126-140/67-78 97-97 PHYSICAL EXAM GENERAL: Awake, alert, and fully oriented, in no acute distress. HEAD: Normal with no signs of trauma. LUNGS:diminished to auscultation b/l. No wheezes. No accessory muscle use. HEART: Regular rate and rhythm, normal S1 and S2 with systolic murmur 2/6, rub or gallop. ABDOMEN: Soft, nontender, not distended, normoactive bowel sounds, no guarding, no rebound, no masses. No hepatomegaly or splenomegaly. Starks cath in place MUSCULOSKELETAL: Normal range of motion at all joints. No bony deformities or tenderness. No CVA tenderness.. LOWER EXTREMITIES: 2+ pulses, warm, well-perfused. No calf tenderness. 1+ lower ext edema NEUROLOGICAL: Normal speech.gait not observed PSYCHIATRIC: uncooperative. Good eye contact. Appropriate mood and affect. SKIN: Warm, dry, normal turgor, no rashes or lesions noted, normal capillary refill. Sacral wounds covered with dressing. left femoral Shiley access in place. LABS Laboratory Results - last 24 hr 08/15/16 08/15/16 08/16/16 17:53 23:08 02:45 WBC RBC Hgb Hct MCV MCHC RDW Plt Count MPV Sodium Potassium Chloride Carbon Dioxide Anion Gap BUN Creatinine POC Glucometer 334 241 71 Random Glucose Calcium Albumin 08/16/16 08/16/16 08/16/16 06:30 06:30 06:52 WBC 7.9 D RBC 3.72 L Hgb 8.9 L Hct 28.7 L MCV 77.0 L MCHC 31.2 L RDW 17.7 H Plt Count 241 MPV 7.6 Sodium 139 Potassium 3.3 L Chloride 98 Carbon Dioxide 29 Anion Gap 12 BUN 29 H D Creatinine 3.8 H D POC Glucometer 79 Random Glucose 61 L D Calcium 7.4 L Albumin 1.9 L D 08/16/16 08/16/16 12:05 14:23 WBC RBC Hgb Hct MCV MCHC RDW Plt Count MPV Sodium Potassium Chloride Carbon Dioxide Anion Gap BUN Creatinine POC Glucometer 326 329 Random Glucose Calcium Albumin HOSPITAL COURSE: Date of Admission:08/12/16 66 year old male with pmh HTN, COPD, and AL (01/23/16), CKD stage 5 on HD , recurrent UTI rt chronic obstructive uropathy, BPH presented to the ED with shortness of breath after missing dialysis on Friday with due dialysis access malfunction was found to have Hyperglycemia. He was started on Levemir 20U BID and Novolog sliding scale. Received dialysis Friday with 4 liter removed. Lani placed Friday08/12/16 for dialysis catheter Port-a-cath placed yesterday and will get vein mapping and AVF graft as outpatient. He was found to have Sacral Stage 4 pressure ulcer with sepsis likely from osteomyelitis but X-ray on 08/16 does not show osteo. He was treated with vanco/ zosyn and will be discharged home on augmentin 500mg bid x 7 days. Lastly, he's instructed to follow up with Dr. Longoria for wound care and PMD for further management of his diabetes. Date of Discharge: 08/16/16 Minutes to complete discharge: 30 Discharge Summary Reason For Visit: ACUTE AND CHRONIC RENAL FAILURE; SOB; DM Condition: Stable - Instructions Diet, Activity, Other Instructions: Instruction for continuing care: You were admitted to the hospital because your blood sugar was high and the kidneys were not working properly. After discharge, you must follow up with your primary doctor and discuss terminal operations supervisor management for your blood sugar. Because your kidneys are failing, you will need dialysis to help out the kidneys therefore you also need to see Dr. Longoria after discharge for vein mapping and elective out-patient surgical procedure (arteriovenous fistula). In addition, you should also see Dr. Chichi Garcia for your chronic kidney failure. Lastly, you should schedule a MRI scan of your back ulcer to see if there's infection in the bone and follow up at the wound center for the back ulcer. Please continue to take augmentin 500mg twice a day for 7 days. You may resume regular diet and activities. Referrals: Kristopher Bell MD [Staff Physician] - Gin Smiley MD [Staff Physician] - Chichi Garcia MD [Staff Physician] - Tonio Longoria MD [Staff Physician] - Disposition: HOME - Home Medications Comprehensive Discharge Medication List: Ambulatory Orders Albuterol Sulfate [Proair Respiclick] 90 mcg IH ASDIR PRN 01/24/16 Cholecalciferol (Vitamin D3) [Vitamin D3] 2,000 unit PO DAILY 01/24/16 Finasteride [Proscar] 5 mg PO DAILY 01/24/16 Glipizide 5 mg PO DAILY 01/24/16 Insulin Detemir [Levemir Flextouch] 20 unit SQ BID 01/24/16 Metoprolol Succinate [Toprol XL -] 50 mg PO HS 01/24/16 Amlodipine Besylate [Norvasc -] 10 mg PO DAILY #30 tablet 01/26/16 Calcium Acetate [Phoslo -] 1,334 mg PO TIDCM #90 06/26/16 Insulin Sliding Scale [Novolog Vial Sliding Scale -] 1 vial SQ ACHS #1 ea Tamsulosin HCl [Flomax -] 0.8 mg PO DAILY@0830 #30 06/26/16 Vitamin B Comp W-C [Nephro-Rebecca -] 1 tablet PO DAILY #30 tablet 06/26/16 Amox-Tr/K Cl [Augmentin - 500Mg Tablet] 1 tab PO BID #14 tab 08/16/16 This patient is new to me today: Yes Date on this admission: 08/17/16 Emergency Visit: No Critical Care patient: No - Discharge Referral Referred to [facility] No
== END 2016-08-16 15:02 | disposition home or self-care (01) | DRG 622 ==
LOC: JER 12:44 → JERBED 15:37 → JICU 17:10 → J8W 08-13 19:41
PROVIDERS: ADMIT Internal Medicine; ATTEND Internal Medicine
PROC: 06HN33Z Insertion of Infusion Device into Left Femoral Vein, Percutaneous Approach (ICD-10-PCS; principal; 2016-08-12)
PROC: 5A1D60Z (ICD-10-PCS; 2016-08-12)
PROC: 0JB70ZZ Excision of Back Subcutaneous Tissue and Fascia, Open Approach (ICD-10-PCS; 2016-08-13)
PROC: 0H9HXZX Drainage of Right Upper Leg Skin, External Approach, Diagnostic (ICD-10-PCS; 2016-08-13)
PROC: 02HV33Z Insertion of Infusion Device into Superior Vena Cava, Percutaneous Approach (ICD-10-PCS; 2016-08-14)
PROC: 0JH63XZ Insertion of Tunneled Vascular Access Device into Chest Subcutaneous Tissue and Fascia, Percutaneous Approach (ICD-10-PCS; 2016-08-14)
PROC: 0JPT0XZ Removal of Tunneled Vascular Access Device from Trunk Subcutaneous Tissue and Fascia, Open Approach (ICD-10-PCS; 2016-08-14)
PROC: 02PY33Z Removal of Infusion Device from Great Vessel, Percutaneous Approach (ICD-10-PCS; 2016-08-14)
DX: E13.10 Other specified diabetes mellitus with ketoacidosis without coma (principal); L89.154 Pressure ulcer of sacral region, stage 4; N18.6 End stage renal disease; I50.33 Acute on chronic diastolic (congestive) heart failure; T82.41XA Breakdown (mechanical) of vascular dialysis catheter, initial encounter; E87.1 Hypo-osmolality and hyponatremia; L02.415 Cutaneous abscess of right lower limb; I13.2 Hypertensive heart and chronic kidney disease with heart failure and with stage 5 chronic kidney disease, or end stage renal disease; J44.9 Chronic obstructive pulmonary disease, unspecified; I25.2 Old myocardial infarction; N13.9 Obstructive and reflux uropathy, unspecified; N40.0 Benign prostatic hyperplasia without lower urinary tract symptoms; D63.1 Anemia in chronic kidney disease; I25.10 Atherosclerotic heart disease of native coronary artery without angina pectoris; E87.70 Fluid overload, unspecified; Y83.9 Surgical procedure, unspecified as the cause of abnormal reaction of the patient, or of later complication, without mention of misadventure at the time of the procedure; Y92.89 Other specified places as the place of occurrence of the external cause; L89.209 Pressure ulcer of unspecified hip, unspecified stage; I27.2 Other secondary pulmonary hypertension; E87.6 Hypokalemia; E11.22 Type 2 diabetes mellitus with diabetic chronic kidney disease; Z87.440 Personal history of urinary (tract) infections; Z87.891 Personal history of nicotine dependence; Z79.4 Long term (current) use of insulin; Z91.14 Patient's other noncompliance with medication regimen; Z99.2 Dependence on renal dialysis
CPT/HCPCS: 36415; 71010-TC; 72100-TC; 76000-TC; 80048; 80053; 81003; 81015; 82009; 82040; 82803; 83605; 85025; 85027; 85610; 85651; 85730; 86140; 86704; 86706; 86708; 86850; 86900; 86901; 87040; 87070; 87086; 87186; 87205; 87340; 88300-TC; 88304-TC; 93005; 93010; 94760; 99285-25; G0463-25; G0480; J0885; J1644

== ENCOUNTER 2016-09-23 21:23 | Inpatient (IN) | payer OTHER ==
--- NOTE | 2016-09-23 22:29 | PDOC ---
History of Present Illness <Tyra Gould - Last Filed: 09/24/16 00:57> - History of Present Illness Initial Comments: 09/23/16 22:52 The patient is a 66 year old male with a past medical history of HTN, COPD, CHF , IDDM, [place] ( 01/23/16) hx of Chronic UTIs, CKD stage 5 ( on dialysis Tu,Karmen, Sat. Had complete his last dialysis on past Friday), recent admission 08/12 for worsening wounds, SOB and dialysis , who arrives to the emergency department after a fall just prior to arrival. Patient denies head trauma or loss of consciousness. He had fallen walking up the stairs after being too weak to get up them trying to get to the bathroom. Patient was found by EMS covered in diarrhea. Patient reports he has been having bouts of diarrhea lately .Patient reports that had fallen and landed on his knees. Patient lives at home with brother. Patient sees Tonio Adler for an ulcer on his right buttock for his wound and sacral decubitus ulcer derided in August. Denies chest pain, shortness of breath Wound care Tonio Adler Office: [phone] Idris Salguero: Office: <Aden Saul - Last Filed: 09/24/16 01:05> - General Chief Complaint: Injury Stated Complaint: FALL Time Seen by Provider: 09/23/16 21:45 Past History - Past Medical History Anemia: Yes Asthma: Yes Cardiac Disorders: Yes (mi january 2016) COPD: Yes CHF: Yes Diabetes: Yes (IDDM) Dialysis: Yes (HD TUE,THR,SAT) Disorders: Yes HTN: Yes HIV: Yes - Psycho/Social/Smoking Cessation Hx Anxiety: No Suicidal Ideation: No Smoking History: Unknown if ever smoked Have you smoked in the past 12 months: No Number of Cigarettes Smoked Daily: 20 If you are a former smoker, when did you quit?: january 2016 Information on smoking cessation initiated: No 'Breaking Loose' booklet given: 08/12/16 Hx Alcohol Use: No Drug/Substance Use Hx: No Substance Use Type: None Hx Substance Use Treatment: No <Tyra Gould - Last Filed: 09/24/16 00:57> <dAen Saul - Last Filed: 09/24/16 01:05> - Past Medical History Allergies/Adverse Reactions: Allergies Allergy/AdvReac Type Severity Reaction Status Date / Time No Known Allergies Allergy Verified 09/23/16 22:19 Home Medications: Ambulatory Orders Albuterol Sulfate [Proair Respiclick] 90 mcg IH ASDIR PRN 01/24/16 Cholecalciferol (Vitamin D3) [Vitamin D3] 2,000 unit PO DAILY 01/24/16 Finasteride [Proscar] 5 mg PO DAILY 01/24/16 Glipizide 5 mg PO DAILY 01/24/16 Insulin Detemir [Levemir Flextouch] 20 unit SQ BID 01/24/16 Metoprolol Succinate [Toprol XL -] 50 mg PO HS 01/24/16 Amlodipine Besylate [Norvasc -] 10 mg PO DAILY #30 tablet 01/26/16 Calcium Acetate [Phoslo -] 1,334 mg PO TIDCM #90 06/26/16 Insulin Sliding Scale [Novolog Vial Sliding Scale -] 1 vial SQ ACHS #1 ea Tamsulosin HCl [Flomax -] 0.8 mg PO DAILY@0830 #30 06/26/16 Vitamin B Comp W-C [Nephro-Rebecca -] 1 tablet PO DAILY #30 tablet 06/26/16 Amox-Tr/K Cl [Augmentin - 500Mg Tablet] 1 tab PO BID #14 tab 08/16/16 Review of Systems - Review of Systems Comments:: 09/23/16 22:53 CONSTITUTIONAL: Absent: fever, chills, diaphoresis, generalized weakness, malaise, loss of appetite HEENT: Absent: rhinorrhea, nasal congestion, throat pain, throat swelling, difficulty swallowing, mouth swelling, ear pain, eye pain, visual Changes CARDIOVASCULAR: Absent: chest pain, syncope, palpitations, irregular heart rate, lightheadedness , peripheral edema RESPIRATORY: Absent: cough, shortness of breath, dyspnea with exertion, orthopnea, wheezing, stridor, hemoptysis GASTROINTESTINAL: Absent: abdominal pain, abdominal distension, nausea, vomiting, diarrhea, constipation, melena, hematochezia GENITOURINARY: Absent: dysuria, frequency, urgency, hesitancy, hematuria, flank pain, genital pain MUSCULOSKELETAL: Absent: myalgia, arthralgia, joint swelling SKIN: Absent: rash, itching, pallor HEMATOLOGIC/IMMUNOLOGIC: Absent: easy bleeding, easy bruising, lymphadenopathy, frequent infections ENDOCRINE: Absent: unexplained weight gain, unexplained weight loss, heat intolerance, cold intolerance NEUROLOGIC: Absent: headache, focal weakness or paresthesias, dizziness, unsteady gait, seizure, mental status changes, bladder or bowel incontinence PSYCHIATRIC: Absent: anxiety, depression, suicidal or homicidal ideation, hallucinations. <DorysAden - Last Filed: 09/24/16 01:05> *Physical Exam - Vital Signs Last Vital Signs Temp Pulse Resp BP Pulse Ox 97.9 F 72 14 103/64 98 09/23/16 22:19 09/23/16 22:19 09/23/16 22:19 09/23/16 22:19 09/23/16 22:19 <Luis FernandoTyra Yesenia - Last Filed: 09/24/16 00:57> - Vital Signs Last Vital Signs Temp Pulse Resp BP Pulse Ox 97.9 F 72 14 103/64 98 09/23/16 22:19 09/23/16 22:19 09/23/16 22:19 09/23/16 22:19 09/23/16 22:19 - Physical Exam Comments: 09/23/16 22:53 GENERAL: 66 year old male, looking significantly older than stated age, covered in fecal material. Awake and alert. No acute distress. HEENT: Normocephalic, atraumatic. PERRLA, EOMI. No conjunctival pallor. Sclera are non- icteric. Moist mucous membranes. Oropharynx is clear. NECK: Supple. Full ROM. No JVD. Carotid pulses 2+ and symmetric, without bruits. No thyromegaly. No lymphadenopathy. CARDIOVASCULAR: Regular rate and rhythm. No murmurs, rubs, or gallops. Distal pulses are 2+ and symmetric. PULMONARY: fine bibasilar rales No evidence of respiratory distress. No wheezing, ABDOMINAL: Soft. Non-tender. Non-distended. No rebound or guarding. No organomegaly. Normoactive bowel sounds. MUSCULOSKELETAL Normal range of motion at all joints. No bony deformities or tenderness. No CVA tenderness. EXTREMITIES: 3+ pitting edema No cyanosis. No clubbing. No calf tenderness. SKIN: On the right buttock, There is a total skin breakdown, stage 4 ulcer and a sacral decubitus Remainder of Skin exam: Warm and dry. Normal capillary refill. No rashes. No jaundice. NEUROLOGICAL: Alert, awake, appropriate. Cranial nerves 2-12 intact.PSYCHIATRIC: Cooperative. Good eye contact. Appropriate mood and affect. <Aden Saul - Last Filed: 09/24/16 01:05> Heart Score/ECG Review #1 09/23/16 23:50 Sinus rhythm with PVC's unchanged from prior <Aden Saul - Last Filed: 09/24/16 01:05> ED Treatment Course - LABORATORY CBC & Chemistry Diagram: 09/23/16 23:47 09/23/16 23:47 <Tyra Gould - Last Filed: 09/24/16 00:57> - LABORATORY CBC & Chemistry Diagram: 09/23/16 23:47 09/23/16 23:47 - RADIOLOGY Radiology Studies Ordered: 09/24/16 01:03 CHEST X RAY Impression: Small to moderate left effusion. Dependent atelectatic changes on the right. Slightly limited by rotation to the left Electronically signed by Dr. Jase Lopez from imaging cartoonist special effects <Aden Saul - Last Filed: 09/24/16 01:05> Medical Decision Making - Critical Care Time Total Critical Care Time (minutes): 60 Critical Care Statement: The care of this patient involved high complexity decision making to prevent further life threatening deterioration of the patient 's condition and/or to evalute & treat vital organ system(s) failure or risk of failure. - Medical Decision Making 09/24/16 00:36 NEPHROLOGY: Jose Cardenas [facility] Office called at 00:36, number used , Dr. Guilherme Tan cartoonist special effects answered immediately, Case discussed. <Aden Saul - Last Filed: 09/24/16 01:05> *DC/Admit/Observation/Transfer - Discharge Dispostion Admit: Yes <Tyra Gould - Last Filed: 09/24/16 00:57> - Attestations Scribe Attestion: 09/23/16 22:53 Documentation prepared by Aden Saul, acting as medical case worker for Tyra Gould MD <Aden Saul Filed: 09/24/16 01:05> Diagnosis at time of Disposition: Acute on chronic renal failure, Anemia, SOB (shortness of breath), End stage kidney disease, Hyperkalemia, Volume overload, Diarrhea, Hyponatremia, Hyperglycemia
[2016-09-23 23:55] LABS: MCH 22.3 pg (25.7-33.7); MCHC 29.6 g/dl (32.0-35.9); MEAN CELL VOLUME 75.1 fl (80-96); MEAN PLT VOLUME 8.1 fl (7.5-11.1); PLATELET COUNT 210 K/MM3 (134-434); WHITE BLOOD COUNT 16.4 K/mm3 (4.0-10.0)
[2016-09-24 00:06] LABS: TROPONIN I 0.04 ng/ml (0.00-0.05)
[2016-09-24 00:19] LABS: ALBUMIN 1.7 g/dl (3.4-5.0); BILIRUBIN,TOTAL 0.4 mg/dL (0.2-1.0); CALCIUM 7.8 mg/dL (8.5-10.1); COCKROFT - GAULT 12.86; TOT PROT 6.1 g/dl (6.4-8.2)
[2016-09-24 00:26] LABS: URINE APPEARANCE TURBID; URINE BILIRUBIN NEGATIVE (NEGATIVE); URINE COLOR YELLOW; URINE GLUCOSE (UA) NEGATIVE (NEGATIVE); URINE KETONE TRACE (NEGATIVE); URINE NITRITE NEGATIVE (NEGATIVE); URINE UROBILINOGEN NEGATIVE E.U./dl (0.2-1.0)
[2016-09-24 00:27] LABS: CREATININE 7.9 mg/dL (0.7-1.3)
[2016-09-24 00:34] LABS: URINE BLOOD 2+ (NEGATIVE); URINE LEUK ESTERASE 3+ (NEGATIVE); URINE PROTEIN 3+ (NEGATIVE)
[2016-09-24 00:36] LABS: URINE BACTERIA MANY /hpf (NONE SEEN); URINE RBC 81 /hpf (0-3); URINE WBC 1493 /hpf (3-5); YEAST MANY
[2016-09-24] MEDS ORDERED: VANCOMYCIN 1,000 MG in DEXTROSE 5%-WATER - 250 ML IVPB ONE (00:36)
[2016-09-24] MEDS ORDERED: INSULIN REGULAR HUMAN 100 UNITS/ML *VIAL IVPUSH ONE (00:42)
[2016-09-24] MEDS ORDERED: DEXTROSE 50%-WATER - 25 GM/50 ML VIAL IVPUSH ONE (00:44)
[2016-09-24] MEDS ORDERED: SODIUM POLYSTYRENE SULFONATE 15 GM/60 ML BOTTLE PO ONE (00:44)
[2016-09-24] MEDS ORDERED: PIPERACILLIN/TAZOB 3.375 GM 3.375 GM in DEXTROSE 5%-WATER - 50 ML IVPB ONE (00:52)
[2016-09-24] MEDS ORDERED: SODIUM POLYSTYRENE SULFONATE 15 GM/60 ML BOTTLE ONE (00:55)
[2016-09-24] MEDS ORDERED: VANCOMYCIN 1 GRAM (PRE-DOCKED) 250 ML IVPB ONE ×2 (00:55→16:48)
[2016-09-24] MEDS ORDERED: INSULIN REGULAR HUMAN 100 UNITS/ML *VIAL ONE (00:55)
[2016-09-24] MEDS ORDERED: PIPERACILLIN/TAZOB 4.5 GM 100 ML IVPB ONE (00:57)
[2016-09-24] MEDS ORDERED: DEXTROSE 50%-WATER 50 ML DISP.SYRIN ONE (00:59)
--- NOTE | 2016-09-24 01:02 | HP ---
CHIEF COMPLAINT: Diarrhea, s/p fall PCP: HISTORY OF PRESENT ILLNESS: This is a 66 y/o male with a past medical history of: ESRD- HD (, , Fri) s/ p Shiley for dialysis, pending mapping for AV-Fistula, HTN, [place] (01/2016), DM, COPD, Sacral Decubital Ulcers. Who presents to the ED from home for diarrhea and s/p fall. Per EMS patient was covered in feces and lives at home with a brother. Patient reports having diarrhea x 1-2 days, weakness unable to get to the bathroom. Patient reports not taking his medications for several days due to malaise. Patient denies fever, chills, cough, SOB, CP, AP, N/V. Patient denies recent sick contacts ER course was notable for: (1) K 6.0- D50, Insulin given, patient refused Kayexalate (2) Acute on Chronic RF: Bun 80, Cr 7.9 (last HD- Friday) (3) Serum Glucose 525, AG 22 (4) UTI- +3 Leukocyte esterase, 1493 WBCs Recent Travel: None PAST MEDICAL HISTORY: See HPI PAST SURGICAL HISTORY: See HPI Social History: Smoking: Former Alcohol: None Drugs: None Lives at home with his brother Family History: Unable to Obtain Allergies No Known Allergies Allergy (Verified 09/23/16 22:19) HOME MEDICATIONS: Home Medications Medication Instructions Recorded Albuterol Sulfate [Proair 90 mcg IH ASDIR PRN 01/24/16 Respiclick] Cholecalciferol (Vitamin D3) 2,000 unit PO DAILY 01/24/16 [Vitamin D3] Finasteride [Proscar] 5 mg PO DAILY 01/24/16 Glipizide 5 mg PO DAILY 01/24/16 Insulin Detemir [Levemir Flextouch] 20 unit SQ BID 01/24/16 Metoprolol Succinate [Toprol XL -] 50 mg PO HS 01/24/16 Amlodipine Besylate [Norvasc -] 10 mg PO DAILY #30 tablet 01/26/16 Calcium Acetate [Phoslo -] 1,334 mg PO TIDCM #90 06/26/16 Insulin Sliding Scale [Novolog 1 vial SQ ACHS #1 ea 06/26/16 Vial Sliding Scale -] Tamsulosin HCl [Flomax -] 0.8 mg PO DAILY@0830 #30 03/15/17 Vitamin B Comp W-C [Nephro-Rebecca -] 1 tablet PO DAILY #30 tablet 06/26/16 Amox-Tr/K Cl [Augmentin - 500Mg 1 tab PO BID #14 tab 08/16/16 Tablet] REVIEW OF SYSTEMS CONSTITUTIONAL: generalized weakness, malaise Absent: fever, chills, diaphoresis, loss of appetite, weight change HEENT: Absent: rhinorrhea, nasal congestion, throat pain, throat swelling, difficulty swallowing, mouth swelling, ear pain, eye pain, visual changes CARDIOVASCULAR: Absent: chest pain, syncope, palpitations, irregular heart rate, lightheadedness , peripheral edema RESPIRATORY: Absent: cough, shortness of breath, dyspnea with exertion, orthopnea, wheezing, stridor, hemoptysis GASTROINTESTINAL: diarrhea Absent: abdominal pain, abdominal distension, nausea, vomiting, constipation, melena, hematochezia GENITOURINARY: Absent: dysuria, frequency, urgency, hesitancy, hematuria, flank pain, genital pain MUSCULOSKELETAL: Absent: myalgia, arthralgia, joint swelling, back pain, neck pain SKIN: Absent: rash, itching, pallor HEMATOLOGIC/IMMUNOLOGIC: Absent: easy bleeding, easy bruising, lymphadenopathy, frequent infections ENDOCRINE: Absent: unexplained weight gain, unexplained weight loss, heat intolerance, cold intolerance NEUROLOGIC: Absent: headache, focal weakness or paresthesias, dizziness, unsteady gait, seizure, mental status changes, bladder or bowel incontinence PSYCHIATRIC: Absent: anxiety, depression, suicidal or homicidal ideation, hallucinations. PHYSICAL EXAMINATION Vital Signs - 24 hr 09/23/16 22:19 Temperature 97.9 F Pulse Rate 72 Respiratory 14 Rate Blood Pressure 103/64 O2 Sat by Pulse 98 Oximetry (%) GENERAL: Lethargic but arousable, AAOx3, in no acute distress. HEAD: Normal with no signs of trauma. EYES: Pupils equal, round and reactive to light, extraocular movements intact, sclera anicteric, conjunctiva clear. No lid lag. EARS, NOSE, THROAT: Ears normal, nares patent, oropharynx clear without exudates. Dry mucous membranes. NECK: Normal range of motion, supple without lymphadenopathy, JVD, or masses. LUNGS: Breath sounds equal. No wheezes. No accessory muscle use. Crackles to right apex HEART: Regular rate and rhythm, normal S1 and S2 without murmur, rub or gallop. ABDOMEN: Soft, nontender, not distended, normoactive bowel sounds, no guarding, no rebound, no masses. No hepatomegaly or splenomegaly. MUSCULOSKELETAL: Normal range of motion at all joints. No bony deformities or tenderness. No CVA tenderness. UPPER EXTREMITIES: 2+ pulses, warm, well-perfused. No cyanosis. No clubbing. No peripheral edema. LOWER EXTREMITIES: 2+ pulses, warm, well-perfused. No calf tenderness. +2 pitting R>L peripheral edema. NEUROLOGICAL: Cranial nerves II-XII intact. Normal speech. Gait not observed. PSYCHIATRIC: Cooperative. Good eye contact. Appropriate mood and affect. SKIN: Warm, dry, normal turgor. Decubital Ulcers x2- Sacrum- unstageable, malodorous with necrosis, Right buttock -Stage 4 noted. Decreased capillary refill Laboratory Results - last 24 hr 09/23/16 09/23/16 09/23/16 23:30 23:47 23:47 WBC 16.4 H D RBC 4.46 Hgb 9.9 L D Hct 33.5 L D MCV 75.1 L MCHC 29.6 L RDW 18.0 H Plt Count 210 MPV 8.1 Neutrophils % Y Lymphocytes % Y Sodium Potassium Chloride Carbon Dioxide Anion Gap BUN Creatinine Creat Clearance w eGFR Random Glucose Calcium Total Bilirubin AST ALT Alkaline Phosphatase Creatine Kinase 343 H D CK-MB (CK-2) 3.653 H Troponin I 0.04 D Total Protein Albumin Lipase Urine Color Yellow Urine Appearance Turbid Urine pH 5.0 Urine Protein 3+ H Urine Glucose (UA) Negative Urine Ketones Trace H Urine Blood 2+ H Urine Nitrite Negative Urine Bilirubin Negative Urine Urobilinogen Negative Ur Leukocyte Esterase 3+ H 09/23/16 23:47 WBC RBC Hgb Hct MCV MCHC RDW Plt Count MPV Neutrophils % Lymphocytes % Sodium 125 L D Potassium 6.0 H D Chloride 87 L D Carbon Dioxide 16 L D Anion Gap 22 H BUN 80 H D Creatinine 7.9 H* D Creat Clearance w eGFR 6.88 Random Glucose 520 H* D Calcium 7.8 L Total Bilirubin 0.4 D AST 37 D ALT 26 D Alkaline Phosphatase 101 Creatine Kinase CK-MB (CK-2) Troponin I Total Protein 6.1 L Albumin 1.7 L Lipase 70 L Urine Color Urine Appearance Urine pH Urine Protein Urine Glucose (UA) Urine Ketones Urine Blood Urine Nitrite Urine Bilirubin Urine Urobilinogen Ur Leukocyte Esterase - RADIOLOGY Radiology Studies Ordered: 09/24/16 01:03 CHEST X RAY Impression: Small to moderate left effusion. Dependent atelectatic changes on the right. Slightly limited by rotation to the left Electronically signed by Dr. Jase Lopez from imaging television equipment operator ASSESSMENT/PLAN: This is a 66 y/o male with a PMHx of: ESRD- HD (, Karmen, Fri), HTN, [place] (01/2016) , DM, COPD, Sacral Decubital Ulcers. Admitted for Acute on Chronic Renal Failure , Electrolyte Imbalance, Uncontrolled DM for further evaluation of their emergent condition. Plan: 1. Acute on Chronic Renal Failure - Likely secondary to fluid overload - Tele monitoring - Appreciate Nephrology Consult- Dr. Guilherme Tan aware- HD in am - Monitor CBC, BMP 2. Uncontrolled Diabetes Mellitus - Glucose 520 with AG 22 likely secondary to uremia - Given Novolog in ED - BGMs - ISS - Continue Levemir - HgbA1c in am - f/u with Endocrine outpatient - RD 3. Hyperkalemia - K 5.6 - Hyperkalemia Protocol ordered- patient refused Kayexalate, benefits and risks discussed - Monitor BMP closely 4. Hyponatremia - Likely secondary to Hyperglycemia - Na 125 - Na corrected 129 5. UTI - Urine Cultures-pending - +3 leukocyte esterase, WBC 1493 - Vancomycin/Zosyn given in ED - Will continue ABX renal dosing 6. Diarrhea - Most likely viral vs bacterial - Patient refused rectal exam - Will order Stool Culture, C-diff, Guiaic 7. Sacral Decubital Ulcers - Continue to monitor and treat with interventions accordingly - Wound Care Nurse - Social Work/Case Management- possible SNF 2/2 lives with brother unable to care for himself 8. CAD - s/p [place] 01/2016 - Continue Lopressor with parameters - EKG - Troponin neg x1 9. HTN - Controlled - Monitor BP - Continue Lopressor with parameters 10. COPD - Continue home meds - O2 prn 11. Sacral Decubital Ulcers - Continue to monitor and treat with interventions accordingly - Wound Care Nurse - Social Work/Case Management- possible SNF 2/2 lives with brother unable to care for himself 12. FEN - Fluid Restriction - Replete Na, monitor - Renal, Diabetic Diet 13. DVT Prophylaxis - SCDs - Heparin SQ, monitor H/H closely Code Status: Full Code Dispo: Requires Inpatient Care Problem List - Problem (1) Diarrhea Code(s): R19.7 - DIARRHEA, UNSPECIFIED (2) Hyperkalemia Code(s): E87.5 - HYPERKALEMIA (3) Acute on chronic renal failure Code(s): N17.9 - ACUTE KIDNEY FAILURE, UNSPECIFIED N18.9 - CHRONIC KIDNEY DISEASE, UNSPECIFIED (4) UTI (urinary tract infection) Code(s): N39.0 - URINARY TRACT INFECTION, SITE NOT SPECIFIED (5) COPD (chronic obstructive pulmonary disease) Code(s): J44.9 - CHRONIC OBSTRUCTIVE PULMONARY DISEASE, UNSPECIFIED (6) HTN (hypertension) Code(s): I10 - ESSENTIAL (PRIMARY) HYPERTENSION (7) Leukocytosis Code(s): D72.829 - ELEVATED WHITE BLOOD CELL COUNT, UNSPECIFIED (8) Renal failure Code(s): N19 - UNSPECIFIED KIDNEY FAILURE (9) Anemia Code(s): D64.9 - ANEMIA, UNSPECIFIED Qualifiers: (10) Diabetes Code(s): E11.9 - TYPE 2 DIABETES MELLITUS WITHOUT COMPLICATIONS Qualifiers: (11) End stage kidney disease Code(s): N18.6 - END STAGE RENAL DISEASE (12) Sacral decubitus ulcer, stage III Code(s): L89.153 - PRESSURE ULCER OF SACRAL REGION, STAGE 3 (13) DVT prophylaxis Code(s): ZMB1424 - Visit type - Emergency Visit Emergency Visit: Yes ED Registration Date: 09/24/16 Care time: The patient presented to the Emergency Department on the above date and was hospitalized for further evaluation of their emergent condition. - New Patient This patient is new to me today: Yes Date on this admission: 09/24/16 - Critical Care Critical Care patient: No
[2016-09-24] MEDS: PIPERACILLIN/TAZOB 2.25 GM 2.25 GM in DEXTROSE 5%-WATER - 50 ML IVPB ONE ×2 (02:00→04:37)
[2016-09-24] MEDS ORDERED: ACETAMINOPHEN INJECTION 100 ML IVPB ONE (04:26)
[2016-09-24] MEDS ORDERED: ACETAMINOPHEN 1000 MG/100 ML VIAL (NON FORMULARY) IVPB ONE ×2 (04:27→14:00)
[2016-09-24] MEDS ORDERED: SODIUM CHLORIDE 1,000 ML IV SCH ×3 (04:30→07:56)
--- NOTE | 2016-09-24 04:35 | HOSP ---
Subjective - Review of Symptoms Events since last encounter: Hospitalist Encounter Notified by primary RN, that the patient has a rectal temp of 103.5, HR 120s. Orders placed for Tylenol IV, Lactic Acid, gentle IVF monitoring closely for Fluid Overload qSOFA 1 05:40- Notified by primary RN, that the patient's BP 87/47 Vitals: T 101.9, P 105, Spo2 88-92% 5L Patient now is in Septic Shock will need to be transferred to ICU Dr. Pryor discussed with [employer] silverlight developer, who accepted the case. Orders placed for Dopamine Drip, Insulin Drip, Stat ABG 06:00- Attempted to call next of kin, Loco Becker (brother) [phone], regarding Advanced Directives, no answer. Voice message left to call, Hospitalist. Will have Day Team, f/u on ABG, Lactic Acid and continue to monitor Physical Examination Vital Signs: Vital Signs Temperature 99.5 F 09/24/16 03:47 Pulse Rate 120 H 09/24/16 03:47 Respiratory Rate 18 09/24/16 03:47 Blood Pressure 122/71 09/24/16 03:47 O2 Sat by Pulse Oximetry (%) 96 09/24/16 03:47 Labs: Last Vital Signs Temp Pulse Resp BP Pulse Ox 99.5 F 120 H 18 122/71 96 09/24/16 03:47 09/24/16 03:47 09/24/16 03:47 09/24/16 03:47 09/24/16 03:47 Laboratory Results - last 24 hr 09/23/16 09/23/16 09/23/16 23:30 23:30 23:47 WBC RBC Hgb Hct MCV MCHC RDW Plt Count MPV Neutrophils % Lymphocytes % Monocytes % Band Neutrophils Sodium Potassium Chloride Carbon Dioxide Anion Gap BUN Creatinine Creat Clearance w eGFR Random Glucose Calcium Total Bilirubin AST ALT Alkaline Phosphatase Creatine Kinase 343 H D Creatine Kinase Index 1.1 CK-MB (CK-2) 3.653 H CK-MB (CK-2) Rel Index Cancelled Troponin I 0.04 D B-Natriuretic Peptide Total Protein Albumin Lipase Urine Color Yellow Urine Appearance Turbid Urine pH 5.0 Urine Protein 3+ H Urine Glucose (UA) Negative Urine Ketones Trace H Urine Blood 2+ H Urine Nitrite Negative Urine Bilirubin Negative Urine Urobilinogen Negative Ur Leukocyte Esterase 3+ H Urine RBC 81 Urine WBC 1493 Ur Epithelial Cells Rare Urine Bacteria Many Urine Yeast Many Acetone, Qual 09/23/16 09/23/16 09/24/16 23:47 23:47 00:30 WBC 16.4 H D RBC 4.46 Hgb 9.9 L D Hct 33.5 L D MCV 75.1 L MCHC 29.6 L RDW 18.0 H Plt Count 210 MPV 8.1 Neutrophils % 77.0 D Lymphocytes % 8.0 D Monocytes % 6.0 Band Neutrophils 9.0 D Sodium 125 L D Potassium 6.0 H D Chloride 87 L D Carbon Dioxide 16 L D Anion Gap 22 H BUN 80 H D Creatinine 7.9 H* D Creat Clearance w eGFR 6.88 Random Glucose 520 H* D Calcium 7.8 L Total Bilirubin 0.4 D AST 37 D ALT 26 D Alkaline Phosphatase 101 Creatine Kinase Creatine Kinase Index CK-MB (CK-2) CK-MB (CK-2) Rel Index Troponin I B-Natriuretic Peptide 243583.3 H Total Protein 6.1 L Albumin 1.7 L Lipase 70 L Urine Color Urine Appearance Urine pH Urine Protein Urine Glucose (UA) Urine Ketones Urine Blood Urine Nitrite Urine Bilirubin Urine Urobilinogen Ur Leukocyte Esterase Urine RBC Urine WBC Ur Epithelial Cells Urine Bacteria Urine Yeast Acetone, Qual 09/24/16 01:15 WBC RBC Hgb Hct MCV MCHC RDW Plt Count MPV Neutrophils % Lymphocytes % Monocytes % Band Neutrophils Sodium Potassium Chloride Carbon Dioxide Anion Gap BUN Creatinine Creat Clearance w eGFR Random Glucose Calcium Total Bilirubin AST ALT Alkaline Phosphatase Creatine Kinase Creatine Kinase Index CK-MB (CK-2) CK-MB (CK-2) Rel Index Troponin I B-Natriuretic Peptide Total Protein Albumin Lipase Urine Color Urine Appearance Urine pH Urine Protein Urine Glucose (UA) Urine Ketones Urine Blood Urine Nitrite Urine Bilirubin Urine Urobilinogen Ur Leukocyte Esterase Urine RBC Urine WBC Ur Epithelial Cells Urine Bacteria Urine Yeast Acetone, Qual Positive small 1+ Current Medications Generic Name Dose Route Start Last Admin Trade Name Freq PRN Reason Stop Dose Admin Acetaminophen 1,000 mg 09/24/16 04:27 Ofirmev Injection - IVPB 09/24/16 04:28 ONCE ONE Epoetin Neftaly 2,000 units 09/24/16 08:00 Epogen - IVPUSH 09/24/16 08:01 ONCE ONE Sodium Chloride 1,000 mls @ 42 mls/hr 09/24/16 04:30 Normal Saline - IV ASDIR [facility] Insulin Aspart 0 vial 09/24/16 07:00 Novolog Vial Sliding Scale - SQ ACHS [facility] Protocol Critical Care Total Critical Care Time (in minutes): 35 Critical Care Statement: The care of this patient involved high complexity decision making to prevent further life threatening deterioration of the patient 's condition and/or to evalute & treat vital organ system(s) failure or risk of failure.
[2016-09-24] MEDS ORDERED: DOPAMINE 400 MG/D5W - 250 ML IVPB SCH (06:00)
[2016-09-24] MEDS: INSULIN REGULAR 100 UNITS in SODIUM CHLORIDE 99 ML IVPB SCH (06:10)
[2016-09-24] MEDS ORDERED: INSULIN SLIDING SCALE (NOVOLOG) 1 VIAL SQ SCH ×2 (07:00)
--- NOTE | 2016-09-24 07:20 | CONSULT ---
Consultation: REQUESTING PROVIDER: CONSULT REQUEST: We have been asked to medically evaluate this patient for ICU admission. HISTORY OF PRESENT ILLNESS: 66 yr old man with CKD on HD (TRSat) bibems for generalized weakness, difficulty moving and diarrhea. For the last week he has been feeling weak, especially in his legs with increased difficulty ambulating. He recalls trying to transfer from room to room when he no longer could get up from the floor, attempted to stand by get onto his knees but couldn't pick himself up, the next event he recalls is being in [facility]. Says he did not have loss of feeling, he could always move his extremities but he did not have the strength to weight bear on his legs. He had nonbloody diarrhea while he unable to get up. Also says he had increased thirst. Denies LOC, head trauma, loss of muscle tone or sensation, recent travel, changes to his medications, foods, URI/UTI symptoms, fevers, chest pain, headache, vomiting, recent antibiotic use, diarrhea prior to recent episode. He went to his last dialysis on Friday without difficulty. patient seen and examined, currently receiving dialysis. pmhx: HTN, DM II(uncontrolled), CKD stage 5 on HD, hx of chronic UTI's, hx of bacterial endocarditis, COPD, [place] (01/23/16), BPH with obstructive uropathy social: hx of smoking, recently quit about 6 months ago REVIEW OF SYSTEMS: CONSTITUTIONAL: Present: generalized weakness,loss of appetite, Absent: fever, chills, diaphoresis, malaise, weight change HEENT: Absent: rhinorrhea, nasal congestion, throat pain, throat swelling, difficulty swallowing, mouth swelling, ear pain, eye pain, visual changes CARDIOVASCULAR: Absent: chest pain, syncope, palpitations, irregular heart rate, lightheadedness , peripheral edema RESPIRATORY: Absent: cough, shortness of breath, dyspnea with exertion, orthopnea, wheezing, stridor, hemoptysis GASTROINTESTINAL: Present: diarrhea, Absent: abdominal pain, abdominal distension, nausea, vomiting, constipation, melena, hematochezia GENITOURINARY: Absent: dysuria, frequency, urgency, hesitancy, hematuria, flank pain, genital pain MUSCULOSKELETAL: Absent: myalgia, arthralgia, joint swelling, back pain, neck pain SKIN: Absent: rash, itching, pallor NEUROLOGIC: Present: unsteady gait, Absent: headache, focal weakness or paresthesias, dizziness, seizure, mental status changes, bladder or bowel incontinence PHYSICAL EXAMINATION Vital Signs - 24 hr 09/24/16 09/24/16 09/24/16 01:28 03:47 04:20 Temperature 99.5 F 103.5 F H Pulse Rate [ 120 H 127 H Apical] Respiratory 18 18 Rate Blood Pressure 122/71 [Right Arm] O2 Sat by Pulse 96 96 Oximetry (%) 09/24/16 09/24/16 05:48 06:03 Temperature 101.9 F H Pulse Rate [ 106 H 93 H Apical] Respiratory 20 18 Rate Blood Pressure 87/47 94/58 [Right Arm] O2 Sat by Pulse 95 94 L Oximetry (%) GENERAL: Awake, alert, and fully oriented, in no acute distress. HEAD: Normal with no signs of trauma. EYES: Pupils equal, round and reactive to light, extraocular movements intact, sclera anicteric, conjunctiva clear. EARS, NOSE, THROAT: nares patent, oropharynx clear without exudates, ed. Moist mucous membranes. NECK: Normal range of motion, supple without lymphadenopathy, JVD, or masses. LUNGS: Breath sounds equal, clear to auscultation bilaterally. No wheezes, and no crackles. No accessory muscle use. HEART: Regular rate and rhythm, normal S1 and S2 without murmur, rub or gallop. ABDOMEN: Soft, nontender, not distended, normoactive bowel sounds, no guarding, UPPER EXTREMITIES: 2+ pulses, warm, well-perfused. No cyanosis. No clubbing. No peripheral edema. erythema at left elbow without skin breakdown LOWER EXTREMITIES: 2+ DP pulses, warm, well-perfused. No calf tenderness. No peripheral edema. [id number] demuted skin below left knee, erythema in b/l knees without tenderness or warmth at joint. NEUROLOGICAL: Cranial nerves II-XII intact. Normal speech. facial symmetry. 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 sensation intact in b/l feet. PSYCHIATRIC: Cooperative. Good eye contact. Appropriate mood and affect. Laboratory Results - last 24 hr 09/24/16 09/24/16 01:15 04:40 Lactic Acid 2.3 H* Acetone, Qual Positive small 1+ Active Medications Generic Name Dose Route Start Last Admin Trade Name Silver PRN Reason Stop Dose Admin Chlorhexidine Gluconate 1 applic 09/24/16 22:00 Hibiclens For Decolonization - TP HS [facility] Epoetin Neftaly 2,000 units 09/24/16 08:00 Epogen - IVPUSH 09/24/16 08:01 ONCE ONE Insulin Human Regular 100 100 mls @ 9.88 mls/hr 09/24/16 06:00 09/24/16 06:10 units/ Sodium Chloride IVPB 9.88 mls/hr TITR [facility] Administration Protocol 0.1 UNITS/KG/HR Dopamine HCl/Dextrose 250 mls @ 18.541 mls/hr 09/24/16 06:00 Dopamine 400 Mg/D5w - IVPB TITR [facility] Protocol 5 MCG/KG/MIN Sodium Chloride 1,000 mls @ 42 mls/hr 09/24/16 06:55 Normal Saline - IV ASDIR [facility] Insulin Aspart 1 vial 09/24/16 07:00 Novolog Vial Sliding Scale - SQ ACHS [facility] Protocol Mupirocin 1 applic 09/24/16 10:00 Bactroban Ointment (For Decolonization) - NS 09/29/16 09:59 BID [facility] ASSESSMENT/PLAN: 66 yr old man with mulitple co-morbidities BIBEMS for generalized weakness admitted to ICU for sepsis and DKA. pt underwent hemodialysis today. no repeat episodes of diarrhea Infectious Disease sepsis likely due to UTI or sacral decubitus ulcer -- fever with leucocytosis, bactermic in bld cx(pending organism) and u/a with leuk + blood and urine cx pending vanc 1gm qdaily + zosyn q8hr 4.5gm IVPB - random vanc levels for renal dosing fever - IV tylenol prn latic acidosis resolved consult: dr. kramer Endocrine DKA (anion gap metabolic acidosis, hyperglycemia, acetone +) insulin drip initiated, pt kept npo, repeat bgm 69, with gap closed on BMP at 1: 30pm, due to low glucose levels, long acting insulin deferred at this time, pt given clear diabetic diet and repeat BMP at 9pm to monitor response, consider long acting glucose if gap still closed or initiating insulin drip if still in DKA avoid continous IVF due to pt being on HD, very low urine output today elevated HBA1c (14), DM II uncontrolled hold oral hypoglycemics Renal CKD stage [address] consult dr. Vanegas Dermatology sacral decubitus ulcer with eschar and discharge, for debridement evaluation by dr. culver Cardiovascular tachycardia(Hr upto 145) - improved with bolus of NS 250cc, likely due to sepsis hold oral hypotensives, pt required dopamine to maintain BP during HD, dc'd post dialysis as BP became normotensive bolus IVF as needed Respiratory pt with hx of COPD, maintaining saturation on nasal cannula Hematological microcytic anemia likley related to renal dysfunction, epogen given diet clear liquid renal diabetic sodium controlled dvt: scd's Dispo: We will continue to follow the patient. Thank you for this consultative opportunity. Visit type - Emergency Visit Emergency Visit: No - New Patient This patient is new to me today: Yes Date on this admission: 09/24/16 - Critical Care Critical Care patient: Yes Total Critical Care Time (in minutes): 41 Critical Care Statement: The care of this patient involved high complexity decision making to prevent further life threatening deterioration of the patient 's condition and/or to evalute & treat vital organ system(s) failure or risk of failure.
[2016-09-24 07:35] LABS: ALLENS TEST POSITIVE; ART PUNCT SITE LEFT RADIAL; ARTERIAL BLOOD GAS BASE EXCESS -8.3 meq/l (-2-2); ARTERIAL BLOOD GAS HCO3 16.4 meq/L (22-26); LPM/O2% 1L; PT. ON O2? YES; TYPE OF O2 NASAL O2
[2016-09-24 07:36] LABS: ARTERIAL BLOOD GAS PO2 63.1 mmHg (80-100); ARTERIAL BLOOD GAS pH 7.32 (7.35-7.45)
[2016-09-24] MEDS ORDERED: EPOETIN ALFA 2,000 UNITS/1 ML VIAL IVPUSH ONE ×2 (08:00→09:00)
--- NOTE | 2016-09-24 08:20 | PN ---
Physical Exam: SUBJECTIVE: Patient seen and examined in ICU. He is on HD. He denies he had diarrhea and that he did not fall. He is in and out of sleep. Events: - Dopamine 5mcg - On insulin gtt 9 units - AM labs drawn on HD OBJECTIVE: Vital Signs Period Temp Pulse Resp BP Sys/Vogt Pulse Ox Last 24 Hr 99.5 F-103.5 F 93-127 18-20 87-122/47-71 94-96 PE Neuro: awakens to touch and verbal stimuli, mildly confused HEENT: dry MM Pulm: basilar crackles CV: s1 s2 rrr no mrg Abd: s nd nd +bs : joyner Ext: no wounds to le ext, +1 edema, large skin tag R Achilles tendon Skin: Sacral wounds per record, L knee skin tear- open stable, RCW permacath AM labs pending Active Medications Generic Name Dose Route Start Last Admin Trade Name Freq PRN Reason Stop Dose Admin Chlorhexidine Gluconate 1 applic 09/24/16 22:00 Hibiclens For Decolonization - TP HS [facility] Epoetin Neftaly 2,000 units 09/24/16 08:00 Epogen - IVPUSH 09/24/16 08:01 ONCE ONE Insulin Human Regular 100 100 mls @ 9.88 mls/hr 09/24/16 06:00 09/24/16 06:10 units/ Sodium Chloride IVPB 9.88 mls/hr TITR [facility] Administration Protocol 0.1 UNITS/KG/HR Dopamine HCl/Dextrose 250 mls @ 18.541 mls/hr 09/24/16 06:00 Dopamine 400 Mg/D5w - IVPB TITR [facility] Protocol 5 MCG/KG/MIN Sodium Chloride 1,000 mls @ 83 mls/hr 09/24/16 07:56 Normal Saline - IV ASDIR [facility] Insulin Aspart 1 vial 09/24/16 07:00 Novolog Vial Sliding Scale - SQ ACHS [facility] Protocol Mupirocin 1 applic 09/24/16 10:00 Bactroban Ointment (For Decolonization) - NS 09/29/16 09:59 BID [facility] Assessment: 66 year old male with ESRD- HD (, , Fri) with permacath, pending mapping for AV-Fistula, HTN, [place] (01/2016), DM, COPD, Sacral Decubital Ulcers presented with diarrhea, sp fall. He was found to be in DKA, hyperkalemia , and transferred to the ICU for septic shock d/t uti and probable sacral ulcers. Plan: 1. Acute on Chronic Renal Failure with metabolic and lactic acidosis - Currently receiving HD - Follow up AM labs - Renal following 2. DKA - Keep NPO for lethargy - Continue insulin gtt - Note home levemir 20units BID 3. Septic shock d/t UTI/ decubs - Dopamine gtt - Zosyn/vanco given in ED - Abx per ID 4. UTI - Follow cx - Continue zosyn per ID 5. Hypekalemia - On HD - Labs to follow 6. Hyponatremia - Likely due to hyperglycemia - Trend 7. Diarrhea - Collect Stool Culture, C-diff, Guiaic 8. Sacral Decubital Ulcers - Continue to monitor and treat with interventions accordingly - Wound Care Nurse - Social Work/Case Management- possible SNF 2/2 lives with brother unable to care for himself 9. CAD s/p RI 2016 - Hold metoprolol 10. HTN - Hold norvasc, metoprolol for hypotension - Controlled 11. Sacral Decubital Ulcers - Dr. Longoria to see 12. DVT Prophylaxis - Heparin SQ Visit type - Emergency Visit Emergency Visit: Yes ED Registration Date: 09/24/16 Care time: The patient presented to the Emergency Department on the above date and was hospitalized for further evaluation of their emergent condition. - New Patient This patient is new to me today: Yes Date on this admission: 09/24/16 - Critical Care Critical Care patient: No
[2016-09-24 08:31] LABS: MCH 22.8 pg (25.7-33.7); MCHC 30.6 g/dl (32.0-35.9); MEAN CELL VOLUME 74.5 fl (80-96); MEAN PLT VOLUME 7.9 fl (7.5-11.1); PLATELET COUNT 197 K/MM3 (134-434); RDW 17.8 % (11.9-15.9); WHITE BLOOD COUNT 12.7 K/mm3 (4.0-10.0)
[2016-09-24 08:57] LABS: ALBUMIN 1.5 g/dl (3.4-5.0); BILIRUBIN,TOTAL 0.4 mg/dL (0.2-1.0); CALCIUM 7.5 mg/dL (8.5-10.1); COCKROFT - GAULT 12.54; MAGNESIUM 2.2 mg/dL (1.8-2.4); TOT PROT 5.3 g/dl (6.4-8.2)
[2016-09-24 09:58] LABS: CREATININE 7.9 mg/dL (0.7-1.3)
--- NOTE | 2016-09-24 10:50 | EKG ---
Test Reason : Blood Pressure : / mmHG Vent. Rate : 101 BPM Atrial Rate : 101 BPM P-R Int : 126 ms QRS Dur : 118 ms QT Int : 388 ms P-R-T Axes : 076 049 093 degrees QTc Int : 503 ms SINUS TACHYCARDIA WITH OCCASIONAL PREMATURE VENTRICULAR COMPLEXES POSSIBLE LEFT ATRIAL ENLARGEMENT CANNOT RULE OUT ANTERIOR INFARCT (CITED ON OR BEFORE 12-AUG-2016) ABNORMAL ECG WHEN COMPARED WITH ECG OF 12-AUG-2016 13:30, PREMATURE VENTRICULAR COMPLEXES ARE NOW PRESENT Confirmed by GRACE COLEMAN MD ([id number]) on 09/24/2016 10:50:23 AM Referred By: Confirmed By:GRACE COLEMAN MD
--- NOTE | 2016-09-24 12:02 | PN ---
Teaching Attending Note Name of Resident: Brandee Coto ATTENDING PHYSICIAN STATEMENT I saw and evaluated the patient. I reviewed the resident's note and discussed the case with the resident. I agree with the resident's findings and plan as documented. SUBJECTIVE: Pt seen and examined in the ICU. On insulin gtt, dopamine gtt off. Receiving HD. OBJECTIVE: Last Vital Signs Temp Pulse Resp BP Pulse Ox 98.4 F 102 H 18 118/52 95 09/24/16 07:10 09/24/16 11:21 09/24/16 11:21 09/24/16 11:21 09/24/16 07:30 Intake & Output 09/21/16 09/22/16 09/23/16 09/24/16 23:59 23:59 23:59 23:59 Output Total 100 Balance -100 Weight 218 lb Gen: tachypneic, confused Heart: tachycardic, regular Lung: scattered rhonchi Abd: soft, nontender Ext: no edema CBC, BMP 09/24/16 07:15 09/24/16 07:15 Active Medications Chlorhexidine Gluconate (Hibiclens For Decolonization -) 1 applic TP HS [facility] Insulin Human Regular 100 (units/ Sodium Chloride) 100 mls @ 9.88 mls/hr IVPB TITR [facility]; 0.1 UNITS/KG/HR PRN Reason: Protocol Last Admin: 09/24/16 06:10 Dose: 9.88 mls/hr Dopamine HCl/Dextrose (Dopamine 400 Mg/D5w -) 250 mls @ 18.541 mls/hr IVPB TITR [facility]; 5 MCG/KG/MIN PRN Reason: Protocol Last Titration: 09/24/16 11:00 Dose: 0 mcg/kg/min Sodium Chloride (Normal Saline -) 1,000 mls @ 83 mls/hr IV ASDIR [facility] Insulin Aspart (Novolog Vial Sliding Scale -) 1 vial SQ ACHS [facility] PRN Reason: Protocol Mupirocin (Bactroban Ointment (For Decolonization) -) 1 applic NS BID [facility] Stop: 09/29/16 09:59 ASSESSMENT AND PLAN: Diabetic Ketoacidosis Likely Sacral Decubitus Ulcer Infection r/o UTI Severe Sepsis Lactic Acidosis resolved ESRD on HD HTN CAD COPD - insulin gtt - monitor BMP, anion gap - hourly BGM while on insulin gtt - antibiotics per ID - f/u cultures - surgical evaluation of sacral ulcer - off pressors - HD per renal - O2 to keep SpO2 >90% - inhaled bronchodilators - DVT prophylaxis - continue ICU monitoring
--- NOTE | 2016-09-24 12:13 | CONSULT ---
Consult - text type - Consultation Consultation Note: Renal Consult for ESRD on HD This is a 66 year old gentleman with PMhx of ESRD on HD, CAD, CHF, IDDM, Sacral Decubitis who presented with weakness and fall and found to have SIRS/Sepsis with DKA and hyperkalemia and metabolic acidosis. Pt states that he just felt weak the day of presentation. Last dialysis was Friday during which he was noted to be mildy tachycardic and weak appearing but was w/o complaints at that time. Denies any fever, CP, SOB, N/V. Did have 1 episode of diarrhea at home. No JACKSON, confusion or lethargy. PMhx: as per HPI Family Hx: NC Social Hx: No T/A/D ROS: As per HPI, all other pertinent ros negative Home Meds: Home Medications Medication Instructions Recorded Albuterol Sulfate [Proair 90 mcg IH ASDIR PRN 01/24/16 Respiclick] Cholecalciferol (Vitamin D3) 2,000 unit PO DAILY 01/24/16 [Vitamin D3] Finasteride [Proscar] 5 mg PO DAILY 01/24/16 Glipizide 5 mg PO DAILY 01/24/16 Insulin Detemir [Levemir Flextouch] 20 unit SQ BID 01/24/16 Metoprolol Succinate [Toprol XL -] 50 mg PO HS 01/24/16 Amlodipine Besylate [Norvasc -] 10 mg PO DAILY #30 tablet 01/26/16 Calcium Acetate [Phoslo -] 1,334 mg PO TIDCM #90 06/26/16 Insulin Sliding Scale [Novolog 1 vial SQ ACHS #1 ea 06/26/16 Vial Sliding Scale -] Tamsulosin HCl [Flomax -] 0.8 mg PO DAILY@0830 #30 06/26/16 Vitamin B Comp W-C [Nephro-Rebecca -] 1 tablet PO DAILY #30 tablet 06/26/16 Amox-Tr/K Cl [Augmentin - 500Mg 1 tab PO BID #14 tab 08/16/16 Tablet] Vital Signs Temperature 98.4 F 09/24/16 07:10 Pulse Rate 102 H 09/24/16 11:21 Respiratory Rate 18 09/24/16 11:21 Blood Pressure 118/52 09/24/16 11:21 O2 Sat by Pulse Oximetry (%) 95 09/24/16 07:30 Intake & Output 09/21/16 09/22/16 09/23/16 09/24/16 23:59 23:59 23:59 23:59 Output Total 100 Balance -100 Weight 218 lb Gen: NAD, on NC, awake and alert HEENT: NC/AT, dry MM, No JVD CVS: RRR, NO M/R Lungs: dec BS at lung bases, b/l air entery Abd: soft NT/ND Ext: No edema, clubbing or cyanosis Neuro: Awake and alert Access: Right IJ tunneled hD catheter CBC, BMP 09/24/16 07:15 09/24/16 07:15 Laboratory Tests 09/23/16 09/23/16 09/23/16 23:30 23:47 23:47 MCV Random Glucose 520 H* D Hemoglobin A1c % Lactic Acid Calcium 7.8 L Phosphorus Magnesium Creatine Kinase 343 H D Creatine Kinase Index 1.1 CK-MB (CK-2) 3.653 H Troponin I 0.04 D Total Protein 6.1 L Albumin 1.7 L Lipase 70 L Urine Protein 3+ H Urine Ketones Trace H Urine Blood 2+ H Ur Leukocyte Esterase 3+ H Urine WBC 1493 Acetone, Qual 09/24/16 09/24/16 09/24/16 01:15 04:40 07:15 MCV 74.5 L Random Glucose Hemoglobin A1c % Lactic Acid 2.3 H* Calcium Phosphorus Magnesium Creatine Kinase Creatine Kinase Index CK-MB (CK-2) Troponin I Total Protein Albumin Lipase Urine Protein Urine Ketones Urine Blood Ur Leukocyte Esterase Urine WBC Acetone, Qual Positive small 1+ 09/24/16 09/24/16 09/24/16 07:15 08:00 08:10 MCV Random Glucose Hemoglobin A1c % 14.8 H D Lactic Acid 0.7 Calcium Phosphorus 7.0 H D Magnesium 2.2 Creatine Kinase Creatine Kinase Index CK-MB (CK-2) Troponin I Total Protein Albumin 1.5 L Lipase Urine Protein Urine Ketones Urine Blood Ur Leukocyte Esterase Urine WBC Acetone, Qual Current Medications Chlorhexidine Gluconate (Hibiclens For Decolonization -) 1 applic TP HS [facility] Insulin Human Regular 100 (units/ Sodium Chloride) 100 mls @ 9.88 mls/hr IVPB TITR [facility]; 0.1 UNITS/KG/HR PRN Reason: Protocol Last Admin: 09/24/16 06:10 Dose: 9.88 mls/hr Dopamine HCl/Dextrose (Dopamine 400 Mg/D5w -) 250 mls @ 18.541 mls/hr IVPB TITR [facility]; 5 MCG/KG/MIN PRN Reason: Protocol Last Titration: 09/24/16 11:00 Dose: 0 mcg/kg/min Sodium Chloride (Normal Saline -) 1,000 mls @ 83 mls/hr IV ASDIR [facility] Insulin Aspart (Novolog Vial Sliding Scale -) 1 vial SQ ACHS [facility] PRN Reason: Protocol Mupirocin (Bactroban Ointment (For Decolonization) -) 1 applic NS BID [facility] Stop: 09/29/16 09:59 A/P 66 year old gentleman with PMhx of ESRD on HD, CAD, CHF, IDDM, Sacral Decubitis who presented with weakness and fall and found to have SIRS/Sepsis with DKA and hyperkalemia and metabolic acidosis. #SIRS/Sepsis Dopamine as needed to maintain map Empiric Abx f/u cultures ICU monitoring #ESRD/Hyperkalmeia/Metabolic acidosis Tolerated HD this am with 1.5L UF Renal diet Will access for need for HD/UF daily Dose all meds for intermittent HD #Hx of Hypertension now with marginal BP holding antihypertensive meds at this time #Hx CHF with mild effusions on CXR Fluids as needed for management of sepsis monitor respiratory status closely #Microcytic Anemia Check Iron studies Trend CBC, transfuse as per ICU protocol will continue WILY with HD #DKA Insulin gtt as per ICU #Lactic acidosis/Metabolic acidosis with + anion gop Keep MAP > 65 Trend lactic acid MA likely multifactorial (renal fialure/lactic acidosis/DKA) Thank you Will follow Dominick Vanegas DO
--- NOTE | 2016-09-24 12:24 | PN ---
Progress Note (short form) - Note Progress Note: ID Consult dictated Sepsis/ Septic shock Necrotic decubitus ulcers UTI/ Sepsis secondary to UTI ESRD Acute gastroenteritis Uncontrolled DM Hyperkalemia L pleural effusion, possible infiltrate Await c/s Hemodynamic support Surgical evaluation for decubitus debridement Empiric zosyn/ vancomycin, adjusted for renal failure Critical care time 35min
[2016-09-24] MEDS ORDERED: SODIUM CHLORIDE 250 ML IV STA (12:49)
[2016-09-24] MEDS: MUPIROCIN 2% TOPICAL OINTMENT FOR DECOLONIZATION NS SCH ×2 (13:45→21:02)
[2016-09-24] MEDS: PIPERACILLIN/TAZOB 2.25 GM 50 ML IVPB SCH ×2 (14:03→18:38)
[2016-09-24 14:05] LABS: CALCIUM 8.1 mg/dL (8.5-10.1); CREATININE 4.6 mg/dL (0.7-1.3)
--- NOTE | 2016-09-24 15:01 | CONS ---
INFECTIOUS DISEASE CONSULTATION DATE OF CONSULTATION: 09/24/2016 A 66-year old male, history of end-stage renal disease on hemodialysis, evaluated for septic shock. History was obtained from the chart, as he cannot give a reliable history. According to the notes, he was admitted to the hospital on September 23, 2016, after a fall at home. He denies head trauma or loss of consciousness. He was found by EMS to be covered with feces. He had been complaining of diarrhea and generalized malaise. The patient reports being noncompliant with his medications recently. He receives hemodialysis three times a week and reports having his usual dialysis session last Friday. At the present time, he complains of generalized weakness and malaise, as well as lower extremity pain. In the emergency room, he was noted to have an elevated blood sugar of 525 with hyperkalemia. Urinalysis showed many white cells. He has decubitus ulcers which have been debrided in the past. He denies any recent high-grade fever or shaking chills, labored breathing, cough, sputum production. Denies vomiting. Positive diarrhea. He has a chronic indwelling Starks catheter. Denies chest pain, shortness of breath or cough. PAST MEDICAL HISTORY: Positive for end-stage renal disease on hemodialysis, PPH, hypertension, COPD, congestive heart failure, insulin-dependent diabetes mellitus, coronary artery disease, myocardial infarction, history of recurrent urinary tract infections. ALLERGIES: No known allergies. MEDICATIONS: Vitamin D, Proscar, glipizide, Levemir, Toprol, Norvasc, NovoLog, Flomax, Augmentin. SOCIAL HISTORY: He lives at home. He is a former smoker. He has had recent hospital admissions, last one of which was in August 2016. SYSTEMS REVIEW: Neurologic: Positive for altered mentation. No loss of consciousness, seizure activity or focal weakness. Cardiac: Negative chest pain or palpitations. Respiratory: Negative cough or sputum production. Gastrointestinal: Positive for diarrhea. Genitourinary: End-stage renal disease on hemodialysis. LABORATORY DATA: White count on admission 16.4, neutrophils 77, lymphocytes 8, monocytes 6, bands 9, hematocrit 29.3, platelet count 197. Sodium 127, BUN 86, creatinine 7.9, glucose 443. Urinalysis: White cells 1493. Culture is pending. Chest x-ray shows a left pleural effusion, cannot rule out underlying infiltrate. PHYSICAL EXAMINATION: General: On physical examination, he is awake and alert. He answers questions appropriately. He is weak appearing. Vital signs: T-max 103.5, blood pressure 118/52, pulse 102 and regular, respirations 18 per minute. Eyes: Sclerae are anicteric. Mouth: Dry mucous membranes. Heart: Heart sounds S1, S2, tachycardic. Lungs: Decreased breath sounds throughout. Abdomen: Soft. No tenderness elicited. No mass, rebound or rigidity. Extremities: Positive for pedal edema. There are necrotic decubitus ulcers present in the sacrum and ischial areas. Genitourinary: There is an indwelling Starks catheter with hypospadias. IMPRESSION: 1. Sepsis/septic shock. 2. High-grade fever/leukocytosis. 3. Acute on chronic renal failure. 4. Uncontrolled diabetes mellitus. 5. Necrotic decubitus ulcers. 6. Hyperkalemia. 7. Urinary tract infection. 8. Acute gastroenteritis. Await culture results. Continue IV fluid hydration and pressors. Empiric antibiotic coverage with Zosyn and vancomycin adjusted for renal failure. Stool studies. Surgical evaluation for debridement of decubitus ulcers. ICU monitoring. Prognosis is guarded. We will follow. Thank you for the kind referral. Critical Care time spent 35 minutes. KYRA SENA M.D. [id number]
[2016-09-24 20:17] VITALS: BMI 26.7
[2016-09-24] MEDS: CHLORHEXIDINE GLUCONATE 4% CLEANSER FOR DECOLONIZATION TP SCH (21:01)
[2016-09-24 22:31] LABS: CALCIUM 7.2 mg/dL (8.5-10.1); CREATININE 5.1 mg/dL (0.7-1.3)
[2016-09-24] MEDS: INSULIN SLIDING SCALE (NOVOLOG) 1 VIAL SQ SCH (22:56)
[2016-09-25] MEDS: PIPERACILLIN/TAZOB 2.25 GM 50 ML IVPB SCH ×3 (01:21→17:35)
[2016-09-25] MEDS: INSULIN SLIDING SCALE (NOVOLOG) 1 VIAL SQ SCH ×5 (01:21→21:15)
[2016-09-25 06:06] LABS: HEP B SURFACE AB Non Reactive (.)
[2016-09-25 06:30] LABS: BASOPHIL 0.2 % (0-2.0); EOSINOPHIL 0.4 % (0-4.5); MCH 22.2 pg (25.7-33.7); MCHC 30.3 g/dl (32.0-35.9); MEAN CELL VOLUME 73.4 fl (80-96); MEAN PLT VOLUME 8.2 fl (7.5-11.1); NEUTROPHILS 77.8 % (42.8-82.8); PLATELET COUNT 180 K/MM3 (134-434); RDW 17.9 % (11.9-15.9); WHITE BLOOD COUNT 12.5 K/mm3 (4.0-10.0)
[2016-09-25] MEDS: INSULIN REGULAR 100 UNITS in SODIUM CHLORIDE 99 ML IVPB SCH (06:46)
[2016-09-25 07:02] LABS: CALCIUM 7.6 mg/dL (8.5-10.1); MAGNESIUM 2.2 mg/dL (1.8-2.4)
[2016-09-25 07:05] LABS: COCKROFT - GAULT 16.41; CREATININE 5.6 mg/dL (0.7-1.3)
--- NOTE | 2016-09-25 07:14 | PN ---
Physical Exam: SUBJECTIVE: Patient seen and examined c/o productive coughing this morning. spoke with brother Will Becker on the phone today, patient has been eating bread with jam and cream cheese, grilled cheese sandwiches, and steak. He was unaware of diabetic/low sodium/renal dietary restrictions. OBJECTIVE: Vital Signs Period Temp Pulse Resp BP Sys/Vogt Pulse Ox Last 24 Hr 96.9 F-102.9 F 80-128 13-36 80-120/45-89 92-95 GENERAL: Awake, alert, and fully oriented, in no acute distress. EYES: perrla, eomi EARS, NOSE, THROAT: oropharynx clear without exudates, edentulism, Moist mucous membranes. LUNGS: quiet at bases, No wheezes, and no crackles. No accessory muscle use. HEART: Regular rate and rhythm, normal S1 and S2 without murmur, rub or gallop. ABDOMEN: Soft, nontender, not distended, normoactive bowel sounds, no guarding, UPPER EXTREMITIES: 2+ radial pulses, warm, well-perfused. No cyanosis. No clubbing. No peripheral edema. erythema at left elbow without skin breakdown LOWER EXTREMITIES: doppler DP pulses(nonpalpable), cold, marcio appearance of both feet, No calf tenderness. No peripheral edema. [id number] demuted skin below left knee, erythema in b/l knees without tenderness or warmth at joint. NEUROLOGICAL: Normal speech. facial symmetry. Sacral debuticus ulcer - foul smelling with purulent discharge hyperpigmented borders and surrounding erythema, nontender Laboratory Results - last 24 hr 09/24/16 09/24/16 09/24/16 02:09 05:49 07:15 WBC 12.7 H RBC 3.93 L Hgb 9.0 L Hct 29.3 L MCV 74.5 L MCHC 30.6 L RDW 17.8 H Plt Count 197 MPV 7.9 Neutrophils % Lymphocytes % Monocytes % Eosinophils % Basophils % Puncture Site ABG pH ABG pCO2 at Pt Temp ABG pO2 at Pt Temp ABG HCO3 ABG O2 Sat (Measured) ABG O2 Content ABG Base Excess Jelani Test O2 Delivery Device Oxygen Flow Rate Sodium Potassium Chloride Carbon Dioxide Anion Gap BUN Creatinine Creat Clearance w eGFR POC Glucometer > 400 > 400 Random Glucose Hemoglobin A1c % Lactic Acid Calcium Phosphorus Magnesium Total Bilirubin AST ALT Alkaline Phosphatase Total Protein Albumin Stool Occult Blood Random Vancomycin Hepatitis A Ab Total Hep Bs Antigen Hep Bs Antibody Hep B Core Total Ab Hepatitis C Antibody 09/24/16 09/24/16 09/24/16 07:15 07:15 07:20 WBC RBC Hgb Hct MCV MCHC RDW Plt Count MPV Neutrophils % Lymphocytes % Monocytes % Eosinophils % Basophils % Puncture Site Left radial ABG pH 7.32 L ABG pCO2 at Pt Temp 32.4 L ABG pO2 at Pt Temp 63.1 L ABG HCO3 16.4 L ABG O2 Sat (Measured) 89.0 L ABG O2 Content 11.0 L ABG Base Excess -8.3 L Jelani Test Positive O2 Delivery Device Nasal o2 Oxygen Flow Rate 1l Sodium 127 L Potassium 5.0 Chloride 90 L Carbon Dioxide 16 L Anion Gap 21 H BUN 86 H Creatinine 7.9 H* Creat Clearance w eGFR 6.69 POC Glucometer Random Glucose 443 H* Hemoglobin A1c % Lactic Acid Calcium 7.5 L Phosphorus 7.0 H D Magnesium 2.2 Total Bilirubin 0.4 AST 27 D ALT 21 Alkaline Phosphatase 76 D Total Protein 5.3 L Albumin 1.5 L Stool Occult Blood Random Vancomycin 9.747 Hepatitis A Ab Total Hep Bs Antigen Hep Bs Antibody Hep B Core Total Ab Hepatitis C Antibody 09/24/16 09/24/16 09/24/16 08:00 08:10 08:12 WBC RBC Hgb Hct MCV MCHC RDW Plt Count MPV Neutrophils % Lymphocytes % Monocytes % Eosinophils % Basophils % Puncture Site ABG pH ABG pCO2 at Pt Temp ABG pO2 at Pt Temp ABG HCO3 ABG O2 Sat (Measured) ABG O2 Content ABG Base Excess Jelani Test O2 Delivery Device Oxygen Flow Rate Sodium Potassium Chloride Carbon Dioxide Anion Gap BUN Creatinine Creat Clearance w eGFR POC Glucometer [phone] Random Glucose Hemoglobin A1c % 14.8 H D Lactic Acid 0.7 Calcium Phosphorus Magnesium Total Bilirubin AST ALT Alkaline Phosphatase Total Protein Albumin Stool Occult Blood Random Vancomycin Hepatitis A Ab Total Hep Bs Antigen Hep Bs Antibody Hep B Core Total Ab Hepatitis C Antibody 09/24/16 09/24/16 09/24/16 09:00 09:00 09:46 WBC RBC Hgb Hct MCV MCHC RDW Plt Count MPV Neutrophils % Lymphocytes % Monocytes % Eosinophils % Basophils % Puncture Site ABG pH ABG pCO2 at Pt Temp ABG pO2 at Pt Temp ABG HCO3 ABG O2 Sat (Measured) ABG O2 Content ABG Base Excess Jelani Test O2 Delivery Device Oxygen Flow Rate Sodium Potassium Chloride Carbon Dioxide Anion Gap BUN Creatinine Creat Clearance w eGFR POC Glucometer 271.34367 Random Glucose Hemoglobin A1c % Lactic Acid Calcium Phosphorus Magnesium Total Bilirubin AST ALT Alkaline Phosphatase Total Protein Albumin Stool Occult Blood Random Vancomycin Hepatitis A Ab Total Negative Hep Bs Antigen Negative Hep Bs Antibody Non reactive Hep B Core Total Ab Negative Hepatitis C Antibody Cancelled 0.2 09/24/16 09/24/16 09/24/16 11:18 13:26 13:27 WBC RBC Hgb Hct MCV MCHC RDW Plt Count MPV Neutrophils % Lymphocytes % Monocytes % Eosinophils % Basophils % Puncture Site ABG pH ABG pCO2 at Pt Temp ABG pO2 at Pt Temp ABG HCO3 ABG O2 Sat (Measured) ABG O2 Content ABG Base Excess Jelani Test O2 Delivery Device Oxygen Flow Rate Sodium 142 D Potassium 3.8 D Chloride 101 D Carbon Dioxide 27 D Anion Gap 14 BUN 42 H D Creatinine 4.6 H D Creat Clearance w eGFR POC Glucometer 212.77336 94.16902 Random Glucose 69 L D Hemoglobin A1c % Lactic Acid Calcium 8.1 L Phosphorus Magnesium Total Bilirubin AST ALT Alkaline Phosphatase Total Protein Albumin Stool Occult Blood Random Vancomycin Hepatitis A Ab Total Hep Bs Antigen Hep Bs Antibody Hep B Core Total Ab Hepatitis C Antibody 09/24/16 09/24/16 09/24/16 15:00 17:31 20:45 WBC RBC Hgb Hct MCV MCHC RDW Plt Count MPV Neutrophils % Lymphocytes % Monocytes % Eosinophils % Basophils % Puncture Site ABG pH ABG pCO2 at Pt Temp ABG pO2 at Pt Temp ABG HCO3 ABG O2 Sat (Measured) ABG O2 Content ABG Base Excess Jelani Test O2 Delivery Device Oxygen Flow Rate Sodium Potassium Chloride Carbon Dioxide Anion Gap BUN Creatinine Creat Clearance w eGFR POC Glucometer 119.29390 180.00972 Random Glucose Hemoglobin A1c % Lactic Acid Calcium Phosphorus Magnesium Total Bilirubin AST ALT Alkaline Phosphatase Total Protein Albumin Stool Occult Blood Negative Random Vancomycin Hepatitis A Ab Total Hep Bs Antigen Hep Bs Antibody Hep B Core Total Ab Hepatitis C Antibody 09/24/16 09/24/16 09/25/16 21:00 21:08 05:15 WBC 12.5 H RBC 4.41 Hgb 9.8 L Hct 32.4 L MCV 73.4 L MCHC 30.3 L RDW 17.9 H Plt Count 180 MPV 8.2 Neutrophils % 77.8 Lymphocytes % 12.9 D Monocytes % 8.7 Eosinophils % 0.4 D Basophils % 0.2 Puncture Site ABG pH ABG pCO2 at Pt Temp ABG pO2 at Pt Temp ABG HCO3 ABG O2 Sat (Measured) ABG O2 Content ABG Base Excess Jelani Test O2 Delivery Device Oxygen Flow Rate Sodium 139 Potassium 4.2 Chloride 100 Carbon Dioxide 25 Anion Gap 14 BUN 47 H Creatinine 5.1 H Creat Clearance w eGFR POC Glucometer > 400 Random Glucose 379 H* D Hemoglobin A1c % Lactic Acid Calcium 7.2 L Phosphorus Magnesium Total Bilirubin AST ALT Alkaline Phosphatase Total Protein Albumin Stool Occult Blood Random Vancomycin Hepatitis A Ab Total Hep Bs Antigen Hep Bs Antibody Hep B Core Total Ab Hepatitis C Antibody 09/25/16 05:15 WBC RBC Hgb Hct MCV MCHC RDW Plt Count MPV Neutrophils % Lymphocytes % Monocytes % Eosinophils % Basophils % Puncture Site ABG pH ABG pCO2 at Pt Temp ABG pO2 at Pt Temp ABG HCO3 ABG O2 Sat (Measured) ABG O2 Content ABG Base Excess Jelani Test O2 Delivery Device Oxygen Flow Rate Sodium 139 Potassium 4.1 Chloride 99 Carbon Dioxide 26 Anion Gap 14 BUN 52 H Creatinine 5.6 H Creat Clearance w eGFR POC Glucometer Random Glucose 275 H D Hemoglobin A1c % Lactic Acid Calcium 7.6 L Phosphorus 5.0 H D Magnesium 2.2 Total Bilirubin AST ALT Alkaline Phosphatase Total Protein Albumin Stool Occult Blood Random Vancomycin Hepatitis A Ab Total Hep Bs Antigen Hep Bs Antibody Hep B Core Total Ab Hepatitis C Antibody Active Medications Generic Name Dose Route Start Last Admin Trade Name Silver PRN Reason Stop Dose Admin Chlorhexidine Gluconate 1 applic 09/24/16 22:00 09/24/16 21:01 Hibiclens For Decolonization - TP 1 applic HS AKOSUA Administration Insulin Human Regular 100 100 mls @ 9.88 mls/hr 09/24/16 06:00 09/25/16 06:46 units/ Sodium Chloride IVPB Not Given TITR AKOSUA Protocol 0.1 UNITS/KG/HR Piperacillin Sod/Tazobactam Sod 50 mls @ 100 mls/hr 09/24/16 13:30 09/25/16 01: 21 Zosyn 2.25gm Ivpb (Pre-Docked) IVPB 100 mls/hr Q8H-IV AKOSUA Administration Protocol Insulin Aspart 1 vial 09/24/16 22:45 09/25/16 06:22 Novolog Vial Sliding Scale - SQ 6 units Q4HPO AKOSUA Administration Protocol Mupirocin 1 applic 09/24/16 10:00 09/24/16 21:02 Bactroban Ointment (For Decolonization) - NS 09/29/16 09:59 1 applic BID AKOSUA Administration Microbiology 09/24/16 00:30 Blood - Peripheral Venous Blood Culture - Preliminary Beta Hem Streptococcus Group F Pending Organism 09/24/16 01:00 Blood - Peripheral Venous Blood Culture - Preliminary Beta Hem Streptococcus Group F Pending Organism ASSESSMENT/PLAN: 66 yr old man with mulitple co-morbidities BIBEMS for generalized weakness admitted to ICU for sepsis and DKA. Infectious Disease sepsis likely due to UTI or sacral decubitus ulcer blood and urine cx pending vanc 1gm qdaily + zosyn q8hr 4.5gm IVPB - random vanc levels for renal dosing today: 16.7, plan for additional vancomycin after dialysis today fever - 650 tylenol prn, fever continues to be elevated with tylenol, ice packs placed - echo to r/o endocarditis as pt continued to have high fevers consult: dr. 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 Vanegas Dermatology sacral decubitus ulcer for debridement tomorrow in the OR, NPO at midnight, will 1/[address] Longoria consulted Cardiovascular tachycardia likely due to sepsis hold oral hypotensives pt may require dopamine to maintain BP during HD (planned today from 5pm-8pm) with vanc post-dialysis Respiratory pt with hx of COPD, maintaining saturation on nasal cannula Hematological microcytic anemia likley related to renal dysfunction, epogen given diet renal diabetic diet dvt: scd's Dispo: We will continue to follow the patient. Thank you for this consultative opportunity. Visit type - Emergency Visit Emergency Visit: No - New Patient This patient is new to me today: No - Critical Care Critical Care patient: Yes Total Critical Care Time (in minutes): 38 Critical Care Statement: The care of this patient involved high complexity decision making to prevent further life threatening deterioration of the patient 's condition and/or to evalute & treat vital organ system(s) failure or risk of failure.
--- NOTE | 2016-09-25 08:26 | PN ---
Physical Exam: SUBJECTIVE: Patient seen and examined in ICU. He has a cough. He feels weak, wants to lay back, his mentation is slightly improved. 24 hr events: - Febrile this AM - Off dobutamine - Off insulin gtt - x1 250cc bolus for tachycardia yesterday, caution with further fluids OBJECTIVE: Vital Signs Period Temp Pulse Resp BP Sys/Vogt Pulse Ox Last 24 Hr 96.9 F-102.9 F 80-128 13-36 80-120/45-89 92 PE Neuro: alert,awake, cn 2-12intact Pulm: basilar rhonchi + nc, dry cough CV: s1 s2 rrr no mrg Abd: s nd nd +bs : joyner Ext: b/l +2 edema, large skin tag R Achilles tendon Skin: large necrotic sacral wounds per record, L knee skin tear- open stable, RCW HD catheter CBCD WBC 12.5 K/mm3 (4.0-10.0) H 09/25/16 05:15 RBC 4.41 M/mm3 (4.00-5.60) 09/25/16 05:15 Hgb 9.8 GM/dL (11.7-16.9) L 09/25/16 05:15 Hct 32.4 % (35.4-49) L 09/25/16 05:15 MCV 73.4 fl (80-96) L 09/25/16 05:15 MCHC 30.3 g/dl (32.0-35.9) L 09/25/16 05:15 RDW 17.9 % (11.9-15.9) H 09/25/16 05:15 Plt Count 180 K/MM3 (134-434) 09/25/16 05:15 MPV 8.2 fl (7.5-11.1) 09/25/16 05:15 CMP Sodium 139 mmol/L (136-145) 09/25/16 05:15 Potassium 4.1 mmol/L (3.5-5.1) 09/25/16 05:15 Chloride 99 mmol/L (98-107) 09/25/16 05:15 Carbon Dioxide 26 mmol/L (21-32) 09/25/16 05:15 Anion Gap 14 (8-16) 09/25/16 05:15 BUN 52 mg/dL (7-18) H 09/25/16 05:15 Creatinine 5.6 mg/dL (0.7-1.3) H 09/25/16 05:15 Creat Clearance w eGFR 6.69 (>60) 09/24/16 07:15 Calcium 7.6 mg/dL (8.5-10.1) L 09/25/16 05:15 Total Bilirubin 0.4 mg/dL (0.2-1.0) 09/24/16 07:15 AST 27 U/L (15-37) D 09/24/16 07:15 ALT 21 U/L (12-78) 09/24/16 07:15 Alkaline Phosphatase 76 U/L (45-117) D 09/24/16 07:15 Total Protein 5.3 g/dl (6.4-8.2) L 09/24/16 07:15 Albumin 1.5 g/dl (3.4-5.0) L 09/24/16 07:15 09/24/16 09/24/16 09/24/16 09:00 20:45 20:45 Phosphorus Magnesium Stool Occult Blood Negative Random Vancomycin Hepatitis A Ab Total Negative Hep Bs Antigen Negative Hep Bs Antibody Non reactive Hep B Core Total Ab Negative Hepatitis C Antibody 0.2 O & P Permanent Slide Pending 09/25/16 05:15 Random Vancomycin 16.701 Active Medications Generic Name Dose Route Start Last Admin Trade Name Silver PRN Reason Stop Dose Admin Chlorhexidine Gluconate 1 applic 09/24/16 22:00 09/24/16 21:01 Hibiclens For Decolonization - TP 1 applic HS AKOSUA Administration Insulin Human Regular 100 100 mls @ 9.88 mls/hr 09/24/16 06:00 09/25/16 06:46 units/ Sodium Chloride IVPB Not Given TITR AKOSUA Protocol 0.1 UNITS/KG/HR Piperacillin Sod/Tazobactam Sod 50 mls @ 100 mls/hr 09/24/16 13:30 09/25/16 01: 21 Zosyn 2.25gm Ivpb (Pre-Docked) IVPB 100 mls/hr Q8H-IV AKOSUA Administration Protocol Insulin Aspart 1 vial 09/25/16 11:00 Novolog Vial Sliding Scale - SQ ACHS AKOSUA Protocol Insulin Detemir 20 units 09/25/16 10:00 Levemir Vial SQ BIDAC [facility] Mupirocin 1 applic 09/24/16 10:00 09/24/16 21:02 Bactroban Ointment (For Decolonization) - NS 09/29/16 09:59 1 applic BID [facility] Administration Microbiology 09/24/16 01:00 Blood - Peripheral Venous Blood Culture - Preliminary Beta Hem Streptococcus Group F Pending Organism 09/24/16 07:15 Blood - Pre-Dialysis Blood Culture - Preliminary Pending Organism 09/24/16 07:40 Blood - Pre-Dialysis Blood Culture - Preliminary Pending Organism 09/24/16 00:30 Blood - Peripheral Venous Blood Culture - Preliminary Pending Organism Assessment: 66 year old male with ESRD- on HD (//Fri) with permacath, pending mapping for AV-Fistula, HTN, SC (01/2016), DM, COPD, Sacral Decubital Ulcers presented with diarrhea, sp fall. He was found to be in DKA, hyperkalemia , and transferred to the ICU for septic shock d/t uti and probable sacral ulcers. Plan: 1. Acute on Chronic Renal Failure with metabolic and lactic acidosis - For repeat HD today - s/p HD yesterday - Following HD remove HD catheter - Daily eval for HD with use of shiley as needed per Renal service - Start 80mg IV lasix daily tomorrow 2. Septic shock with Streptococcal bacteremia (source: urine, sacral ulcer) - Febrile - Off dobutamine gtt - Maintain MAP >65 - Multiple positive blood cultures, urine cx awaiting speciation - Continue zosyn - Vanco level therapeutic - ECHO r/o vegetation 3. DKA - Gap closed - Insulin gtt off - Resume home levemir 20units BID - ISS, BGM ACHS - Renal/diabetic diet 4. Sacral Decubital Ulcers - For debridement in OR tomorrow - NPO after midnight 5. Diarrhea - Stool cx pending 6. CAD s/p SC 2015 - Hold metoprolol d/t sepsis 7. HTN - Hold norvasc, metoprolol for hypotension - Controlled 8. Lactic acidosis - Resolved 9. Anemia of chronic disease - Epogen with HD 10. DVT Prophylaxis - Heparin SQ Visit type - Emergency Visit Emergency Visit: Yes ED Registration Date: 09/24/16 Care time: The patient presented to the Emergency Department on the above date and was hospitalized for further evaluation of their emergent condition. - New Patient This patient is new to me today: No - Critical Care Critical Care patient: Yes Total Critical Care Time (in minutes): 35 Critical Care Statement: The care of this patient involved high complexity decision making to prevent further life threatening deterioration of the patient 's condition and/or to evalute & treat vital organ system(s) failure or risk of failure.
--- NOTE | 2016-09-25 09:11 | SPA.PREOP ---
- PRE-OP NOTE Dx: Infected sacral ulcer Planned Procedure: Sacral debridement Surgeon: Tonio Longoria Consent: To be obtained by surgeon after risks, benefits and alternatives discussed. Last Vital Signs Temp Pulse Resp BP Pulse Ox 97.4 F L 93 H 18 111/73 92 L 09/25/16 06:00 09/25/16 07:00 09/25/16 07:00 09/25/16 07:00 09/24/16 21:00 CBC, BMP 09/25/16 05:15 09/25/16 05:15 Microbiology 09/24/16 07:15 Blood - Pre-Dialysis Blood Culture - Preliminary NO GROWTH OBTAINED AFTER 24 HOURS, INCUBATION TO CONTINUE FOR 4 DAYS. 09/24/16 07:40 Blood - Pre-Dialysis Blood Culture - Preliminary NO GROWTH OBTAINED AFTER 24 HOURS, INCUBATION TO CONTINUE - ASSESSMENT/PLAN 1. Make NPO after midnight except po meds 2. GI/DVT PPX 3. Medical optimization / clearance 4. Scheduled for HD in AM 5. Coags ordered 6. T&S ordered Visit type - Case Type Case Type: ED Admission - Emergency Emergency Visit: Yes ED Registration Date: 09/24/16 Care time: The patient presented to the Emergency Department on the above date and was hospitalized for further evaluation of their emergent condition. - New patient This patient is new to me today: Yes Date on this admission: 09/25/16
[2016-09-25] MEDS ORDERED: BENZOCAINE/MENTH/CETYLPYRD CL 1 EACH LOZENGE MM PRN (09:12)
[2016-09-25] MEDS: INSULIN DETEMIR 100 UNITS/ML MDV SQ SCH ×2 (10:00→17:00)
--- NOTE | 2016-09-25 11:02 | PN ---
Teaching Attending Note Name of Resident: Brandee Coto ATTENDING PHYSICIAN STATEMENT I saw and evaluated the patient. I reviewed the resident's note and discussed the case with the resident. I agree with the resident's findings and plan as documented. SUBJECTIVE: Pt seen and examined in the ICU. Remains tachypneic but feels better than yesterday. Blood cultures all growing gram positive cocci. Off insulin gtt. OBJECTIVE: Last Vital Signs Temp Pulse Resp BP Pulse Ox 101.9 F H 136 H 24 122/78 92 L 09/25/16 10:00 09/25/16 10:00 09/25/16 10:00 09/25/16 10:00 09/24/16 21:00 Intake & Output 09/22/16 09/23/16 09/24/16 09/25/16 23:59 23:59 23:59 23:59 Intake Total 1053.4 100 Output Total 140 Balance 913.4 100 Weight 218 lb 197 lb 5.019 oz 197 lb 2 oz Gen: tachypneic at rest Heart: tachycardic, regular Lung: scattered rhonchi Abd: soft, nontender Ext: no edema CBC, BMP 09/25/16 05:15 09/25/16 05:15 Active Medications Benzocaine/Menthol (Cepacol Lozenge -) 1 each MM Q4H PRN PRN Reason: SORE THROAT Chlorhexidine Gluconate (Hibiclens For Decolonization -) 1 applic TP HS AKOSUA Last Admin: 09/24/16 21:01 Dose: 1 applic Furosemide (Lasix Injection -) 80 mg IVPUSH DAILY AKOSUA Insulin Human Regular 100 (units/ Sodium Chloride) 100 mls @ 9.88 mls/hr IVPB TITR AKOSUA; 0.1 UNITS/KG/HR PRN Reason: Protocol Last Admin: 09/25/16 06:46 Dose: Not Given Piperacillin Sod/Tazobactam Sod (Zosyn 2.25gm Ivpb (Pre-Docked)) 50 mls @ 100 mls/hr IVPB Q8H-IV AKOSUA PRN Reason: Protocol Last Admin: 09/25/16 01:21 Dose: 100 mls/hr Vancomycin HCl 500 mg/ (Dextrose) 250 mls @ 250 mls/hr IVPB ONCE ONE PRN Reason: Protocol Stop: 09/25/16 11:58 Insulin Aspart (Novolog Vial Sliding Scale -) 1 vial SQ ACHS AKOSUA PRN Reason: Protocol Insulin Detemir (Levemir Vial) 20 units SQ BIDAC AKOSUA Mupirocin (Bactroban Ointment (For Decolonization) -) 1 applic NS BID AKOSUA Stop: 09/29/16 09:59 Last Admin: 09/24/16 21:02 Dose: 1 applic ASSESSMENT AND PLAN: Diabetic Ketoacidosis resolved Sacral Decubitus Ulcer Infection r/o UTI Severe Sepsis Lactic Acidosis resolved ESRD on HD HTN CAD COPD - continue insulin - monitor BMP, anion gap - antibiotics per ID - f/u cultures - for sacral ulcer debridement - off pressors - HD per renal with ultrafiltration - will likely need to d/c permacath due to bacteremia - O2 to keep SpO2 >90% - inhaled bronchodilators - DVT prophylaxis - continue ICU monitoring critical care time spent in reviewing chart, evaluating patient and formulating plan 35 min
--- NOTE | 2016-09-25 11:06 | PN ---
Progress Note, Physician History of Present Illness: Awake, responsive Appears confused + Cough noted Breathing non- labored Febrile 101.9 GPCC in multiple blood c/s bottles WBC improved - Current Medication List Current Medications: Active Medications Benzocaine/Menthol (Cepacol Lozenge -) 1 each MM Q4H PRN PRN Reason: SORE THROAT Chlorhexidine Gluconate (Hibiclens For Decolonization -) 1 applic TP HS AKOSUA Last Admin: 09/24/16 21:01 Dose: 1 applic Furosemide (Lasix Injection -) 80 mg IVPUSH DAILY AKOSUA Insulin Human Regular 100 (units/ Sodium Chloride) 100 mls @ 9.88 mls/hr IVPB TITR AKOSUA; 0.1 UNITS/KG/HR PRN Reason: Protocol Last Admin: 09/25/16 06:46 Dose: Not Given Piperacillin Sod/Tazobactam Sod (Zosyn 2.25gm Ivpb (Pre-Docked)) 50 mls @ 100 mls/hr IVPB Q8H-IV AKOSUA PRN Reason: Protocol Last Admin: 09/25/16 01:21 Dose: 100 mls/hr Insulin Aspart (Novolog Vial Sliding Scale -) 1 vial SQ ACHS AKOSUA PRN Reason: Protocol Insulin Detemir (Levemir Vial) 20 units SQ BIDAC AKOSUA Mupirocin (Bactroban Ointment (For Decolonization) -) 1 applic NS BID AKOSUA Stop: 09/29/16 09:59 Last Admin: 09/24/16 21:02 Dose: 1 applic - Objective Vital Signs: Vital Signs Temperature 101.9 F H 09/25/16 10:00 Pulse Rate 136 H 09/25/16 10:00 Respiratory Rate 24 09/25/16 10:00 Blood Pressure 122/78 09/25/16 10:00 O2 Sat by Pulse Oximetry (%) 92 L 09/24/16 21:00 Constitutional: Yes: No Distress, Other (chronically ill appearing) Cardiovascular: Yes: Regular Rate and Rhythm, S1, S2 Respiratory: Yes: Rhonchi Gastrointestinal: Yes: Normal Bowel Sounds, Soft, Abdomen, Obese. No: Tenderness Edema: Yes Integumentary: Yes: Other (necrotic decubitus ulcers) Labs: CBC, BMP 09/25/16 05:15 09/25/16 05:15 Assessment/Plan Sepsis/ septic shock Streptococcal bacteremia/ sepsis multiple potential sources ( lung, skin, ) UTI/ Sepsis secondary to UTI Possible pneumonia ESRD Await identification of blood isolate Continue zosyn Vancomycin theraputic Echocardiogram R/O vegetations
[2016-09-25] MEDS: MUPIROCIN 2% TOPICAL OINTMENT FOR DECOLONIZATION NS SCH ×2 (11:13→21:10)
--- NOTE | 2016-09-25 11:15 | PN ---
Progress Note (short form) - Note Progress Note: Renal Follow up for ESRD on HD Pt seen and examined in the ICU febrile this am BP marginal blood cultures positive, Identification pending pt feels weak making urine Vital Signs Temperature 101.9 F H 09/25/16 10:00 Pulse Rate 136 H 09/25/16 10:00 Respiratory Rate 24 09/25/16 10:00 Blood Pressure 122/78 09/25/16 10:00 O2 Sat by Pulse Oximetry (%) 92 L 09/24/16 21:00 Intake & Output 09/22/16 09/23/16 09/24/16 09/25/16 23:59 23:59 23:59 23:59 Intake Total 1053.4 100 Output Total 140 Balance 913.4 100 Weight 218 lb 197 lb 5.019 oz 197 lb 2 oz Gen: NAD, CVS: RRR, NO M/R Lungs: dec BS at lung bases, b/l air entery Abd: soft NT/ND Ext: No edema, clubbing or cyanosis Access: Right IJ tunneled hD catheter CBC, BMP 09/25/16 05:15 09/25/16 05:15 Current Medications Benzocaine/Menthol (Cepacol Lozenge -) 1 each MM Q4H PRN PRN Reason: SORE THROAT Chlorhexidine Gluconate (Hibiclens For Decolonization -) 1 applic TP HS AKOSUA Last Admin: 09/24/16 21:01 Dose: 1 applic Furosemide (Lasix Injection -) 80 mg IVPUSH DAILY AKOSUA Insulin Human Regular 100 (units/ Sodium Chloride) 100 mls @ 9.88 mls/hr IVPB TITR AKOUSA; 0.1 UNITS/KG/HR PRN Reason: Protocol Last Admin: 09/25/16 06:46 Dose: Not Given Piperacillin Sod/Tazobactam Sod (Zosyn 2.25gm Ivpb (Pre-Docked)) 50 mls @ 100 mls/hr IVPB Q8H-IV AKOSUA PRN Reason: Protocol Last Admin: 09/25/16 01:21 Dose: 100 mls/hr Vancomycin HCl 500 mg/ (Dextrose) 250 mls @ 250 mls/hr IVPB ONCE ONE PRN Reason: Protocol Stop: 09/25/16 11:58 Insulin Aspart (Novolog Vial Sliding Scale -) 1 vial SQ ACHS AKOSUA PRN Reason: Protocol Insulin Detemir (Levemir Vial) 20 units SQ BIDAC AKOSUA Mupirocin (Bactroban Ointment (For Decolonization) -) 1 applic NS BID AKOSUA Stop: 09/29/16 09:59 Last Admin: 09/24/16 21:02 Dose: 1 applic A/P 66 year old gentleman with PMhx of ESRD on HD, CAD, CHF, IDDM, Sacral Decubitis who presented with weakness and fall and found to have SIRS/Sepsis with DKA and hyperkalemia and metabolic acidosis. #SIRS/Sepsis/Sacral Decubitis Blood cultures positive continue Abx will redose Vanco after dialysis today keep MAP > 65 For debridement tomorrow #ESRD/Hyperkalmeia/Metabolic acidosis will repeat HD today with fluid removal as tolerated Hd catheter to removed today after dialysis start Lasix IVP starting tomorrow #Anemia Trend CBC WILY with HD Transfuse as per ICU protocol Dominick Vanegas DO
[2016-09-25] MEDS ORDERED: ACETAMINOPHEN 325 MG TABLET (FP) PO ONE (11:28)
[2016-09-25] MEDS ORDERED: ACETAMINOPHEN 325 MG TABLET (FP) PO PRN (13:35)
[2016-09-25] MEDS ORDERED: VANCOMYCIN 500 MG in DEXTROSE 5%-WATER - 250 ML IVPB ONE (18:30)
[2016-09-25] MEDS ORDERED: VANCOMYCIN 500 MG in DEXTROSE 5%-WATER - 100 ML IVPB ONE (18:45)
[2016-09-25] MEDS: CHLORHEXIDINE GLUCONATE 4% CLEANSER FOR DECOLONIZATION TP SCH (21:10)
[2016-09-25] MEDS ORDERED: DEXTROSE 50%-WATER - 25 GM/50 ML VIAL ONE (21:18)
[2016-09-26] MEDS: PIPERACILLIN/TAZOB 2.25 GM 50 ML IVPB SCH ×3 (01:03→18:32)
[2016-09-26] MEDS: INSULIN SLIDING SCALE (NOVOLOG) 1 VIAL SQ SCH ×4 (06:26→22:15)
[2016-09-26] MEDS: INSULIN REGULAR 100 UNITS in SODIUM CHLORIDE 99 ML IVPB SCH (06:26)
[2016-09-26 06:39] LABS: BASOPHIL 0.7 % (0-2.0); EOSINOPHIL 0.6 % (0-4.5); MCH 22.4 pg (25.7-33.7); MCHC 30.3 g/dl (32.0-35.9); MEAN PLT VOLUME 8.6 fl (7.5-11.1); NEUTROPHILS 77.2 % (42.8-82.8); PLATELET COUNT 136 K/MM3 (134-434); RDW 17.7 % (11.9-15.9); WHITE BLOOD COUNT 13.4 K/mm3 (4.0-10.0)
[2016-09-26 06:57] LABS: INR 1.48 (0.82-1.09); PROTHROMBIN TIME (PATIENT) 16.4 SEC (9.98-11.88)
--- NOTE | 2016-09-26 07:04 | PN ---
Physical Exam: SUBJECTIVE: Patient seen and examined. feels hungry and thirsty. close family friend at bedside says that patient is non-compliant at home with diet and typically does not follow medical advance, and while older brother ( Loco) is the only living relative, Loco normally defers management to Brian. Brian makes his own medical decision and as per family frnd, has never had the conversation about advance directives or GOC, Loco would not be able to answer what Brian would want. 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 for permacath removal today. plan for debridement tomorrow. Different friend (Jake Xionggena [phone]), Brian says he is his best- friend and we can discuss his status with him, Jake takes care of Brian's brother. OBJECTIVE: Vital Signs Period Temp Pulse Resp BP Sys/Vogt Pulse Ox Last 24 Hr 97.1 F-102.9 F 63-136 14-24 88-143/42-81 89-92 GENERAL: Awake, alert, and fully oriented(person/place/time/situation), in no acute distress. EYES: perrla, eomi EARS, NOSE, THROAT: oropharynx clear without exudates, edentulism, Moist mucous membranes. LUNGS: clear on right mid and upper lobes, quiet at right base, quiet on left side(throughout), No wheezes, and no crackles. No accessory muscle use. HEART: Regular rate and rhythm, normal S1 and S2 without murmur, rub or gallop. ABDOMEN: Soft, nontender, not distended, normoactive bowel sounds, no guarding, UPPER EXTREMITIES: 2+ radial pulses, warm, well-perfused. No cyanosis. No clubbing. No peripheral edema. erythema at left elbow without skin breakdown LOWER EXTREMITIES: doppler DP pulses(nonpalpable), cold, marcio appearance of both feet, No calf tenderness. No peripheral edema. [id number] demuted skin below left knee, erythema in b/l knees without tenderness or warmth at joint. NEUROLOGICAL: Normal speech. facial symmetry. necrotic Sacral debuticus ulcers - 1 at sacrum, 1 at left lower gluteal fold and 1 at right smaller buttux - foul smelling with purulent discharge hyperpigmented borders and surrounding erythema, nontender Laboratory Results - last 24 hr 09/25/16 09/25/16 09/25/16 01:12 05:15 05:15 INR Sodium 139 Potassium 4.1 Chloride 99 Carbon Dioxide 26 Anion Gap 14 BUN 52 H Creatinine 5.6 H POC Glucometer > 400 Random Glucose 275 H D Calcium 7.6 L Phosphorus 5.0 H D Magnesium 2.2 Random Vancomycin 16.701 Blood Type Antibody Screen 09/25/16 09/25/16 09/25/16 06:21 10:20 11:28 INR Sodium Potassium Chloride Carbon Dioxide Anion Gap BUN Creatinine POC Glucometer 266.48708 220.14250 Random Glucose Calcium Phosphorus Magnesium Random Vancomycin Blood Type B POSITIVE Antibody Screen Negative 09/25/16 09/25/16 09/26/16 16:58 22:10 05:45 INR 1.48 H Sodium Potassium Chloride Carbon Dioxide Anion Gap BUN Creatinine POC Glucometer [phone] Random Glucose Calcium Phosphorus Magnesium Random Vancomycin Blood Type Antibody Screen Active Medications Generic Name Dose Route Start Last Admin Trade Name Freq PRN Reason Stop Dose Admin Acetaminophen 650 mg 09/25/16 13:35 09/26/16 05:07 Tylenol - PO 650 mg Q4H PRN Administration FEVER OR PAIN Benzocaine/Menthol 1 each 09/25/16 09:12 Cepacol Lozenge - MM Q4H PRN SORE THROAT Chlorhexidine Gluconate 1 applic 09/24/16 22:00 09/25/16 21:10 Hibiclens For Decolonization - TP 1 applic HS AKOSUA Administration Furosemide 80 mg 09/26/16 10:00 Lasix Injection - IVPUSH DAILY AKOSUA Insulin Human Regular 100 100 mls @ 9.88 mls/hr 09/24/16 06:00 09/26/16 06:26 units/ Sodium Chloride IVPB Not Given TITR AKOSUA Protocol 0.1 UNITS/KG/HR Piperacillin Sod/Tazobactam Sod 50 mls @ 100 mls/hr 09/24/16 13:30 09/26/16 01: 03 Zosyn 2.25gm Ivpb (Pre-Docked) IVPB 100 mls/hr Q8H-IV AKOSUA Administration Protocol Insulin Aspart 1 vial 09/25/16 11:00 09/26/16 06:26 Novolog Vial Sliding Scale - SQ Not Given ACHS [facility] Protocol Insulin Detemir 20 units 09/25/16 10:00 09/25/16 17:00 Levemir Vial SQ 20 units BIDAC AKOSUA Administration Mupirocin 1 applic 09/24/16 10:00 09/25/16 21:10 Bactroban Ointment (For Decolonization) - NS 09/29/16 09:59 1 applic BID AKOSUA Administration Microbiology 09/24/16 07:15 Blood - Pre-Dialysis Blood Culture - Preliminary Presumptive Mrsa (Pbp2a Pos) Beta Hem Streptococcus Group F 09/24/16 01:20 Urine - Urine Clean Catch Urine Culture - Final Citrobacter Freundii Complex Acinetobacter Baumannii/Haemol 09/24/16 01:00 Blood - Peripheral Venous Blood Culture - Preliminary Beta Hem Streptococcus Group F Presumptive Mrsa (Pbp2a Pos) 09/24/16 07:40 Blood - Pre-Dialysis Blood Culture - Preliminary Presumptive Mrsa (Pbp2a Pos) Beta Hem Streptococcus Group F Pending Organism 09/24/16 00:30 Blood - Peripheral Venous Blood Culture - Preliminary Beta Hem Streptococcus Group F Presumptive Mrsa (Pbp2a Pos) 09/24/16 20:45 Stool Clostridium difficile Antigen (JADYN) - Final 09/24/16 20:45 Stool Clostridium difficile Toxin Assay - Final ASSESSMENT/PLAN: 66 yr old man with mulitple co-morbidities BIBEMS for generalized weakness admitted to ICU for sepsis and DKA. Palliative care consult placed to discuss GOC with patient and initiate conversation about advance directives. He has multiple co-morbidities and if he is not going to be compliant, he would benefit from having advance directives placed in chart. Infectious Disease severe sepsis likely due to UTI or sacral decubitus ulcer blood and urine cx with resistant organisms, presumptive MRSA vanc 1gm qdaily + zosyn q8hr 4.5gm IVPB - random vanc levels for renal dosing today: 13, plan for additional vancomycin after dialysis today fever - 650 tylenol prn, fever trending down - echo cannot r/o vegetation, with severe LV dysfunction consult: dr. kramer Endocrine DKA - resolved DM II uncontrolled - levemir 20units BID sq, hold completely tonight, was hypoglycemic this morning when given 10units last night - NISS, BGM ACHS elevated HBA1c (14) - registered nurse post partum consulted for diabetic/renal diet teaching hold oral hypoglycemics Renal CKD stage 5 on HD TRsat - hemodialysis today due to increased left pleural effusion, plan to remove ultrafilter 2L, with plan to remove permacath today by - will plan for temporary dialysis access in 2-3 days if needed, will give catheter rest - fluid restrict to 1.2L per day - defer potassium repletion due to renal dysfunction, pt will likely correct tomorrow avoid nephrotoxic medications(avoid NSAIDS) consult dr. Vanegas Dermatology sacral decubitus ulcer for debridement tomorrow in the OR 2pm, NPO at midnight, hold levemir tonight as pt was hypoglycemic this morning on 1/2 dose levemir from yesterday Dr. Longoria consulted Cardiovascular tachycardia decreased today hold oral hypotensives due to low-normal BP Respiratory pt with hx of COPD,titrate oxygen supplementation to maintain o2 sat >90% Hematological microcytic anemia likley related to renal dysfunction, epogen given diet renal diabetic diet dvt: scd's Visit type - Emergency Visit Emergency Visit: No - New Patient This patient is new to me today: No - Critical Care Critical Care patient: Yes Total Critical Care Time (in minutes): 40 Critical Care Statement: The care of this patient involved high complexity decision making to prevent further life threatening deterioration of the patient 's condition and/or to evalute & treat vital organ system(s) failure or risk of failure.
[2016-09-26 07:18] LABS: CALCIUM 7.1 mg/dL (8.5-10.1)
[2016-09-26 07:20] LABS: COCKROFT - GAULT 21.46
--- NOTE | 2016-09-26 09:25 | PN ---
Progress Note (short form) - Note Progress Note: SUBJECTIVE: The patient was seen and examined at the bedside, he denies any issues at this time. He has had a diarrheal bowel movement while we were speaking Tmax 102.9 overnight Current Medications Generic Name Dose Route Start Last Admin Trade Name Silver PRN Reason Stop Dose Admin Acetaminophen 650 mg 09/25/16 13:35 09/26/16 05:07 Tylenol - PO 650 mg Q4H PRN Administration FEVER OR PAIN Benzocaine/Menthol 1 each 09/25/16 09:12 Cepacol Lozenge - MM Q4H PRN SORE THROAT Chlorhexidine Gluconate 1 applic 09/24/16 22:00 09/25/16 21:10 Hibiclens For Decolonization - TP 1 applic HS AKOSUA Administration Furosemide 80 mg 09/26/16 10:00 Lasix Injection - IVPUSH DAILY AKOSUA Insulin Human Regular 100 100 mls @ 9.88 mls/hr 09/24/16 06:00 09/26/16 06:26 units/ Sodium Chloride IVPB Not Given TITR AKOSUA Protocol 0.1 UNITS/KG/HR Piperacillin Sod/Tazobactam Sod 50 mls @ 100 mls/hr 09/24/16 13:30 09/26/16 01: 03 Zosyn 2.25gm Ivpb (Pre-Docked) IVPB 100 mls/hr Q8H-IV AKOSUA Administration Protocol Insulin Aspart 1 vial 09/25/16 11:00 09/26/16 06:26 Novolog Vial Sliding Scale - SQ Not Given ACHS AKOSUA Protocol Insulin Detemir 20 units 09/25/16 10:00 09/25/16 17:00 Levemir Vial SQ 20 units BIDAC AKOSUA Administration Mupirocin 1 applic 09/24/16 10:00 09/25/16 21:10 Bactroban Ointment (For Decolonization) - NS 09/29/16 09:59 1 applic BID AKOSUA Administration OBJECTIVE: Vital Signs Period Temp Pulse Resp BP Sys/Vogt Pulse Ox Last 24 Hr 97.1 F-102.9 F 63-136 14-24 88-143/42-81 92-92 Physical Exam General: NAD Lungs: B/l basilar rhonchi, dry cough Heart: RRR, S1S2 Abd: Soft, non-tender, non-distended. Normoactive bowel sounds : Greenish stool covering perineum and long-term up abdomen Ext: b/l +2 edema, large skin tag R Achilles tendon Skin: large necrotic sacral wounds per record, L knee skin tear- open stable, RCW HD catheter CBCD WBC 13.4 K/mm3 (4.0-10.0) H 09/26/16 05:45 RBC 3.78 M/mm3 (4.00-5.60) L 09/26/16 05:45 Hgb 8.5 GM/dL (11.7-16.9) L D 09/26/16 05:45 Hct 28.0 % (35.4-49) L 09/26/16 05:45 MCV 74.0 fl (80-96) L 09/26/16 05:45 MCHC 30.3 g/dl (32.0-35.9) L 09/26/16 05:45 RDW 17.7 % (11.9-15.9) H 09/26/16 05:45 Plt Count 136 K/MM3 (134-434) D 09/26/16 05:45 MPV 8.6 fl (7.5-11.1) 09/26/16 05:45 CMP Sodium 138 mmol/L (136-145) 09/26/16 05:45 Potassium 3.2 mmol/L (3.5-5.1) L D 09/26/16 05:45 Chloride 98 mmol/L (98-107) 09/26/16 05:45 Carbon Dioxide 29 mmol/L (21-32) 09/26/16 05:45 Anion Gap 11 (8-16) 09/26/16 05:45 BUN 35 mg/dL (7-18) H D 09/26/16 05:45 Creatinine 4.0 mg/dL (0.7-1.3) H D 09/26/16 05:45 Creat Clearance w eGFR 6.69 (>60) 09/24/16 07:15 Random Glucose 49 mg/dL (74-106) L* D 09/26/16 05:45 Calcium 7.1 mg/dL (8.5-10.1) L 09/26/16 05:45 Total Bilirubin 0.4 mg/dL (0.2-1.0) 09/24/16 07:15 AST 27 U/L (15-37) D 09/24/16 07:15 ALT 21 U/L (12-78) 09/24/16 07:15 Alkaline Phosphatase 76 U/L (45-117) D 09/24/16 07:15 Total Protein 5.3 g/dl (6.4-8.2) L 09/24/16 07:15 Albumin 1.5 g/dl (3.4-5.0) L 09/24/16 07:15 CARDIAC ENZYMES Creatine Kinase 343 IU/L (39-308) H D 09/23/16 23:30 Troponin I 0.04 ng/ml (0.00-0.05) D 09/23/16 23:30 Microbiology 09/24/16 01:20 Urine - Urine Clean Catch Urine Culture - Preliminary Lactose Fermenting Neg Bacilli Non Lactose Fermenting Gnb 09/24/16 07:40 Blood - Pre-Dialysis Blood Culture - Preliminary Pending Organism Pending Organism#2 09/24/16 20:45 Stool Clostridium difficile Antigen (JADYN) - Final 09/24/16 20:45 Stool Clostridium difficile Toxin Assay - Final 09/24/16 07:15 Blood - Pre-Dialysis Blood Culture - Preliminary Pending Organism 09/24/16 00:30 Blood - Peripheral Venous Blood Culture - Preliminary Beta Hem Streptococcus Group F Pending Organism 09/24/16 01:00 Blood - Peripheral Venous Blood Culture - Preliminary Beta Hem Streptococcus Group F Pending Organism Assessment: This is a 66 year old male with PMHx of ESRD- on HD (//Fri) with permacath, pending mapping for AV-Fistula, HTN, UT (01/2016), DM, COPD, Sacral Decubital Ulcers presented with diarrhea, sp fall. He was found to be in DKA, hyperkalemia, and transferred to the ICU for septic shock d/t uti and probable sacral ulcers. Plan: 1) ID: Septic shock with beta hemolytic stretococcus group F bacteremia - Tmax 102.9 - Lactic acidosis resolved - Continue Zoyn - Continue Zosyn - ECHO with highly mobile mass consistent with a torn or redundant chordae. A vegetation on the mitral valve cannot be excluded - Cultures as above - Appreciate ID consult Diarrhea - C.diff negative - Stool culture pending Sacral Debuital ulcers - For OR debridement today - NPO - Appreciate surgery consult 2) Endocrine: DKA - Gap closed - BGM ACHS - ISS ACHS - Decrease home Levemir to 17u BID (hypoglycemia this AM) 3) Cardiology: CAD s/p [place] 2015 - Hold Metoprolol 2/2 hypotension caused by sepsis HTN - Hold norvasc 2/2 hypotension 4) Heme: Anemia 2/2 chronic disease - Hgb 8.5 today - Epogen with HD 5) F/E/N: - Hypokalemia: replete per nephrology - NPO for surgery today 6) Prophylaxis: - Hold all chemical dvt prophylaxis 2/2 surgery today 7) Dipso: - Requires continued inpatient care CODE STATUS: FULL CODE Visit type - Emergency Visit Emergency Visit: Yes ED Registration Date: 09/24/16 Care time: The patient presented to the Emergency Department on the above date and was hospitalized for further evaluation of their emergent condition. - New Patient This patient is new to me today: Yes Date on this admission: 09/26/16 - Critical Care Critical Care patient: Yes Total Critical Care Time (in minutes): 35 Critical Care Statement: The care of this patient involved high complexity decision making to prevent further life threatening deterioration of the patient 's condition and/or to evalute & treat vital organ system(s) failure or risk of failure.
[2016-09-26] MEDS: FUROSEMIDE 40 MG/4 ML INJECTABLE VIAL IVPUSH SCH (10:28)
[2016-09-26] MEDS: MUPIROCIN 2% TOPICAL OINTMENT FOR DECOLONIZATION NS SCH ×3 (10:30→22:16)
[2016-09-26] MEDS ORDERED: EPOETIN ALFA 10,000 UNIT/1 ML VIAL IVPUSH ONE (10:43)
[2016-09-26] MEDS ORDERED: VANCOMYCIN 1 GRAM (PRE-DOCKED) 250 ML IVPB ONE (10:44)
--- NOTE | 2016-09-26 10:53 | PN ---
Progress Note (short form) - Note Progress Note: Renal Follow up for ESRD on HD Pt seen and examined in the ICU awake and alert no overnight events O2 sat in low 90's on NC cXR showed effusions possible OR for debridement and HD catheter removal today Vital Signs Temperature 97.4 F L 09/26/16 10:00 Pulse Rate 65 09/26/16 10:00 Respiratory Rate 12 09/26/16 10:00 Blood Pressure 96/59 09/26/16 10:00 O2 Sat by Pulse Oximetry (%) 92 L 09/26/16 08:20 Intake & Output 09/23/16 09/24/16 09/25/16 09/26/16 23:59 23:59 23:59 23:59 Intake Total 1053.4 1200 100 Output Total 140 20 Balance 913.4 1180 100 Weight 218 lb 197 lb 5.019 oz 197 lb 2 oz 184 lb 3 oz Gen: NAD on NC, awake and alert CVS: RRR, NO M/R Lungs: dec BS at lung bases, b/l air entry Ext: No edema, clubbing or cyanosis Access: Right IJ tunneled hD catheter CBC, BMP 09/26/16 05:45 09/26/16 05:45 Laboratory Tests 09/26/16 05:45 Calcium 7.1 L Current Medications Acetaminophen (Tylenol -) 650 mg PO Q4H PRN PRN Reason: FEVER OR PAIN Last Admin: 09/26/16 05:07 Dose: 650 mg Benzocaine/Menthol (Cepacol Lozenge -) 1 each MM Q4H PRN PRN Reason: SORE THROAT Chlorhexidine Gluconate (Hibiclens For Decolonization -) 1 applic TP HS AKOSUA Last Admin: 09/25/16 21:10 Dose: 1 applic Epoetin Neftaly (Epogen -) 10,000 units IVPUSH ONCE ONE Stop: 09/26/16 10:44 Furosemide (Lasix Injection -) 80 mg IVPUSH DAILY AKOSUA Last Admin: 09/26/16 10:28 Dose: 80 mg Insulin Human Regular 100 (units/ Sodium Chloride) 100 mls @ 9.88 mls/hr IVPB TITR AKOSUA; 0.1 UNITS/KG/HR PRN Reason: Protocol Last Admin: 09/26/16 06:26 Dose: Not Given Piperacillin Sod/Tazobactam Sod (Zosyn 2.25gm Ivpb (Pre-Docked)) 50 mls @ 100 mls/hr IVPB Q8H-IV AOKSUA PRN Reason: Protocol Last Admin: 09/26/16 10:30 Dose: 100 mls/hr Vancomycin HCl 1,000 mg/ (Dextrose) 250 mls @ 250 mls/hr IVPB ONCE ONE PRN Reason: Protocol Stop: 09/26/16 11:43 Insulin Aspart (Novolog Vial Sliding Scale -) 1 vial SQ ACHS AKOSUA PRN Reason: Protocol Last Admin: 09/26/16 06:26 Dose: Not Given Insulin Detemir (Levemir Vial) 17 units SQ BIDAC AKOSUA Mupirocin (Bactroban Ointment (For Decolonization) -) 1 applic NS BID AKOSUA Stop: 09/29/16 09:59 Last Admin: 09/26/16 10:42 Dose: Not Given A/P 66 year old gentleman with PMhx of ESRD on HD, CAD, CHF, IDDM, Sacral Decubitis who presented with weakness and fall and found to have SIRS/Sepsis with DKA and hyperkalemia and metabolic acidosis. #SIRS/Sepsis/Sacral Decubitis Blood cultures grew strep will redose vanco with dialysis today ID follow up Debridement as per Vascular Sx ICU monitoring #ESRD/Hyperkalmeia/Metabolic acidosis with pleural effusions HD today with planned 2kg UF HD catheter to be removed today continue Lasix 80mg IV daily Low K diet #Anemia Trend CBC WILY with HD Transfuse as per ICU protocol Dominick Vanegas DO
--- NOTE | 2016-09-26 11:35 | PN ---
Teaching Attending Note Name of Resident: Brandee Coto ATTENDING PHYSICIAN STATEMENT I saw and evaluated the patient. I reviewed the resident's note and discussed the case with the resident. I agree with the resident's findings and plan as documented. SUBJECTIVE: Pt seen and examined in the ICU. Remains febrile, short of breath. Dialyzed yesterday but today's CXR showing increasing congestion. Echocardiogram cannot rule out mitral valve vegetation and shows severe LV dysfunction. OBJECTIVE: Last Vital Signs Temp Pulse Resp BP Pulse Ox 97.4 F L 65 12 96/59 92 L 09/26/16 10:00 09/26/16 10:00 09/26/16 10:00 09/26/16 10:00 09/26/16 08:20 Intake & Output 09/23/16 09/24/16 09/25/16 09/26/16 23:59 23:59 23:59 23:59 Intake Total 1053.4 1200 100 Output Total 140 20 Balance 913.4 1180 100 Weight 218 lb 197 lb 5.019 oz 197 lb 2 oz 184 lb 3 oz Gen: tachypneic at rest Heart: RRr Lung: scattered rhonchi Abd: soft, nontender Ext: trace edema CBC, BMP 09/26/16 05:45 09/26/16 05:45 Active Medications Acetaminophen (Tylenol -) 650 mg PO Q4H PRN PRN Reason: FEVER OR PAIN Last Admin: 09/26/16 05:07 Dose: 650 mg Benzocaine/Menthol (Cepacol Lozenge -) 1 each MM Q4H PRN PRN Reason: SORE THROAT Chlorhexidine Gluconate (Hibiclens For Decolonization -) 1 applic TP HS AKOSUA Last Admin: 09/25/16 21:10 Dose: 1 applic Furosemide (Lasix Injection -) 80 mg IVPUSH DAILY AKOSUA Last Admin: 09/26/16 10:28 Dose: 80 mg Insulin Human Regular 100 (units/ Sodium Chloride) 100 mls @ 9.88 mls/hr IVPB TITR AKOSUA; 0.1 UNITS/KG/HR PRN Reason: Protocol Last Admin: 09/26/16 06:26 Dose: Not Given Piperacillin Sod/Tazobactam Sod (Zosyn 2.25gm Ivpb (Pre-Docked)) 50 mls @ 100 mls/hr IVPB Q8H-IV AKOSUA PRN Reason: Protocol Last Admin: 09/26/16 10:30 Dose: 100 mls/hr Vancomycin HCl (Vancomycin (Pre-Docked)) 250 mls @ 166.667 mls/hr IVPB ONCE ONE PRN Reason: Protocol Stop: 09/26/16 12:13 Insulin Aspart (Novolog Vial Sliding Scale -) 1 vial SQ ACHS AKOSUA PRN Reason: Protocol Last Admin: 09/26/16 11:21 Dose: Not Given Insulin Detemir (Levemir Vial) 17 units SQ BIDAC AKOSUA Mupirocin (Bactroban Ointment (For Decolonization) -) 1 applic NS BID AKOSUA Stop: 09/29/16 09:59 Last Admin: 09/26/16 10:42 Dose: Not Given ASSESSMENT AND PLAN: Diabetic Ketoacidosis resolved Sacral Decubitus Ulcer Infection Polymicrobial Bacteremia r/o Endocarditis Severe Sepsis Lactic Acidosis resolved Acute Severe LV Systolic Dysfunction ESRD on HD HTN CAD COPD - continue insulin - monitor BMP, anion gap - antibiotics per ID - f/u cultures - for sacral ulcer debridement - off pressors - HD per renal with ultrafiltration - will need to d/c permacath due to bacteremia - O2 to keep SpO2 >90% - inhaled bronchodilators - DVT prophylaxis - continue ICU monitoring critical care time spent in reviewing chart, evaluating patient and formulating plan 35 min
[2016-09-26] MEDS: ALBUMIN HUMAN 25% 12.5 GM/50 ML VIAL IVPB SCH ×4 (13:45→15:15)
[2016-09-26] MEDS ORDERED: VANCOMYCIN 1 GRAM (PRE-DOCKED) 250 ML IVPB SCH (15:45)
--- NOTE | 2016-09-26 16:09 | PN ---
Progress Note (short form) - Note Progress Note: Vascular Surgery Pt rebooked for surgery [place] at 2pm Will do surgery on non hd day. please optimize Tonio Longoria dO
[2016-09-26] MEDS ORDERED: LIDOCAINE HCL 1%, 10 MG/ML (20ML VIAL) ONE (16:17)
--- NOTE | 2016-09-26 16:39 | PN ---
Progress Note (short form) - Note Progress Note: Vascular Surgery Right IJ permacath removed. No complications. Will be on standby if pt needs a daniel culver DO
--- NOTE | 2016-09-26 16:52 | PN ---
Progress Note, Physician History of Present Illness: Awake and alert No complaints offerred Cough noted Breathing non-labored Temps down Afebrile Received HD, vancomycin Dialysis catheter removed Blood c/s polymicrobial - Current Medication List Current Medications: Active Medications Acetaminophen (Tylenol -) 650 mg PO Q4H PRN PRN Reason: FEVER OR PAIN Last Admin: 09/26/16 05:07 Dose: 650 mg Benzocaine/Menthol (Cepacol Lozenge -) 1 each MM Q4H PRN PRN Reason: SORE THROAT Chlorhexidine Gluconate (Hibiclens For Decolonization -) 1 applic TP HS AKOSUA Last Admin: 09/25/16 21:10 Dose: 1 applic Furosemide (Lasix Injection -) 80 mg IVPUSH DAILY AKOSUA Last Admin: 09/26/16 10:28 Dose: 80 mg Piperacillin Sod/Tazobactam Sod (Zosyn 2.25gm Ivpb (Pre-Docked)) 50 mls @ 100 mls/hr IVPB Q8H-IV AKOSUA PRN Reason: Protocol Last Admin: 09/26/16 10:30 Dose: 100 mls/hr Vancomycin HCl (Vancomycin (Pre-Docked)) 250 mls @ 250 mls/hr IVPB ONCE AKOSUA PRN Reason: Protocol Stop: 09/27/16 15:44 Insulin Aspart (Novolog Vial Sliding Scale -) 1 vial SQ ACHS AKOSUA PRN Reason: Protocol Last Admin: 09/26/16 11:21 Dose: Not Given Insulin Detemir (Levemir Vial) 17 units SQ BIDAC AKOSUA Mupirocin (Bactroban Ointment (For Decolonization) -) 1 applic NS BID AKOSUA Stop: 09/29/16 09:59 Last Admin: 09/26/16 10:42 Dose: Not Given - Objective Vital Signs: Vital Signs Temperature 97.5 F L 09/26/16 14:00 Pulse Rate 90 09/26/16 15:00 Respiratory Rate 17 09/26/16 15:00 Blood Pressure 111/69 09/26/16 15:00 O2 Sat by Pulse Oximetry (%) 92 L 09/26/16 08:20 Constitutional: Yes: No Distress Cardiovascular: Yes: Regular Rate and Rhythm, S1, S2 Respiratory: Yes: Diminished Gastrointestinal: Yes: Normal Bowel Sounds, Soft. No: Tenderness Edema: Yes Labs: CBC, BMP 09/26/16 05:45 09/26/16 05:45 INR, PTT INR 1.48 (0.82-1.09) H 09/26/16 05:45 Assessment/Plan Sepsis/ septic shock Polymicrobial bacteremia/ sepsis ( presumptive MRSA, grp F strep, GNR ) multiple potential sources ( lung, skin, ) UTI/ Sepsis secondary to UTI Possible pneumonia ESRD Await final identification of blood isolates Continue zosyn Vancomycin redosed Cardiology evaluation re: abnormal echocardiogram
[2016-09-26] MEDS: CHLORHEXIDINE GLUCONATE 4% CLEANSER FOR DECOLONIZATION TP SCH (22:16)
[2016-09-27] MEDS: PIPERACILLIN/TAZOB 2.25 GM 50 ML IVPB SCH ×3 (02:29→17:40)
[2016-09-27 06:39] LABS: BASOPHIL 0.2 % (0-2.0); EOSINOPHIL 0.5 % (0-4.5); MCH 22.7 pg (25.7-33.7); MEAN CELL VOLUME 73.2 fl (80-96); MEAN PLT VOLUME 8.7 fl (7.5-11.1); NEUTROPHILS 76.3 % (42.8-82.8); PLATELET COUNT 146 K/MM3 (134-434); RDW 17.9 % (11.9-15.9); WHITE BLOOD COUNT 11.9 K/mm3 (4.0-10.0)
[2016-09-27] MEDS: INSULIN DETEMIR 100 UNITS/ML MDV SQ SCH ×2 (06:39→17:30)
[2016-09-27] MEDS: INSULIN SLIDING SCALE (NOVOLOG) 1 VIAL SQ SCH ×4 (06:40→21:36)
[2016-09-27 06:59] LABS: ANION GAP 12 (8-16); CALCIUM 7.3 mg/dL (8.5-10.1); CO2 27 mmol/L (21-32); GLUCOSE,RANDOM 224 mg/dL (74-106)
[2016-09-27] MEDS: FUROSEMIDE 40 MG/4 ML INJECTABLE VIAL IVPUSH SCH (09:55)
--- NOTE | 2016-09-27 10:17 | PN ---
Teaching Attending Note Name of Resident: Brandee Coto ATTENDING PHYSICIAN STATEMENT I saw and evaluated the patient. I reviewed the resident's note and discussed the case with the resident. I agree with the resident's findings and plan as documented. SUBJECTIVE: Patient seen and examined in the ICU. Reports shortness of breath, but better than yesterday. No CP. Pending debridement in the OR. OBJECTIVE: Intake & Output 09/24/16 09/25/16 09/26/16 09/27/16 23:59 23:59 23:59 23:59 Intake Total 1053.4 1200 500 50 Output Total 140 20 Balance 913.4 1180 500 50 Weight 197 lb 5.019 oz 197 lb 2 oz 184 lb 3 oz 195 lb 1.745 oz Last Vital Signs Temp Pulse Resp BP Pulse Ox 98.2 F 90 27 H 123/81 92 L 09/27/16 10:00 09/27/16 10:00 09/27/16 10:00 09/27/16 10:00 09/26/16 20:33 Active Medications Acetaminophen (Tylenol -) 650 mg PO Q4H PRN PRN Reason: FEVER OR PAIN Last Admin: 09/26/16 05:07 Dose: 650 mg Benzocaine/Menthol (Cepacol Lozenge -) 1 each MM Q4H PRN PRN Reason: SORE THROAT Chlorhexidine Gluconate (Hibiclens For Decolonization -) 1 applic TP HS AKOSUA Last Admin: 09/26/16 22:16 Dose: 1 applic Furosemide (Lasix Injection -) 80 mg IVPUSH DAILY AKOSUA Last Admin: 09/27/16 09:55 Dose: 80 mg Piperacillin Sod/Tazobactam Sod (Zosyn 2.25gm Ivpb (Pre-Docked)) 50 mls @ 100 mls/hr IVPB Q8H-IV AKOSUA PRN Reason: Protocol Last Admin: 09/27/16 09:52 Dose: 100 mls/hr Vancomycin HCl (Vancomycin (Pre-Docked)) 250 mls @ 250 mls/hr IVPB ONCE AKOSUA PRN Reason: Protocol Stop: 09/27/16 15:44 Last Admin: 09/26/16 15:45 Dose: 250 mls/hr Insulin Aspart (Novolog Vial Sliding Scale -) 1 vial SQ ACHS AKOSUA PRN Reason: Protocol Last Admin: 09/27/16 06:40 Dose: 4 units Insulin Detemir (Levemir Vial) 17 units SQ BIDAC [facility] Last Admin: 09/27/16 06:39 Dose: 17 units Mupirocin (Bactroban Ointment (For Decolonization) -) 1 applic NS BID [facility] Stop: 09/29/16 09:59 Last Admin: 09/26/16 22:16 Dose: Not Given Gen: Mildly tachypneic at rest Heart: S1S2 Lung: scattered rhonchi Abd: soft, nontender Ext: trace edema Laboratory Results - last 24 hr 09/26/16 09/26/16 09/26/16 09:25 11:19 16:56 WBC RBC Hgb Hct MCV MCHC RDW Plt Count MPV Neutrophils % Lymphocytes % Monocytes % Eosinophils % Basophils % Sodium Potassium Chloride Carbon Dioxide Anion Gap BUN Creatinine POC Glucometer 100.11044 122.75916 Random Glucose Calcium Random Vancomycin 13.110 09/26/16 09/26/16 09/26/16 17:45 22:10 22:11 WBC RBC Hgb Hct MCV MCHC RDW Plt Count MPV Neutrophils % Lymphocytes % Monocytes % Eosinophils % Basophils % Sodium Potassium 3.8 Chloride Carbon Dioxide Anion Gap BUN Creatinine POC Glucometer 306.93169 322.76116 Random Glucose Calcium Random Vancomycin 09/27/16 09/27/16 09/27/16 05:10 05:10 06:00 WBC 11.9 H RBC 3.82 L Hgb 8.7 L Hct 28.0 L MCV 73.2 L MCHC 31.0 L RDW 17.9 H Plt Count 146 MPV 8.7 Neutrophils % 76.3 Lymphocytes % 16.9 D Monocytes % 6.1 Eosinophils % 0.5 Basophils % 0.2 Sodium 136 Potassium 3.8 Chloride 97 L Carbon Dioxide 27 Anion Gap 12 BUN 38 H Creatinine 4.0 H POC Glucometer Random Glucose 224 H D Calcium 7.3 L Random Vancomycin 17.571 ASSESSMENT AND PLAN: Diabetic Ketoacidosis resolved Sacral Decubitus Ulcer Infection Polymicrobial Bacteremia r/o Endocarditis Severe Sepsis Lactic Acidosis resolved Acute Severe LV Systolic Dysfunction ESRD on HD HTN CAD COPD - Glycemic control - antibiotics per ID - for sacral ulcer debridement - HD per renal with ultrafiltration - O2 to keep SpO2 >90% - inhaled bronchodilators - DVT prophylaxis - continue ICU monitoring Dr Tang critical care time spent in reviewing chart, evaluating patient and formulating plan 35 min
[2016-09-27] MEDS ORDERED: FUROSEMIDE 40 MG/4 ML INJECTABLE VIAL IVPB ONE (10:49)
--- NOTE | 2016-09-27 10:54 | PN ---
Progress Note (short form) - Note Progress Note: Renal Follow up for ESRD on HD Pt seen and examined in the ICU awake and alert reports some sob but not in distress O2 sat is ok no chest pain, abd pain, N/V/D pt reports making a good amount of urine Hd catheter removed yesterday Had HD yesterday with 2kg UF Vital Signs Temperature 98.2 F 09/27/16 10:00 Pulse Rate 90 09/27/16 10:00 Respiratory Rate 27 H 09/27/16 10:00 Blood Pressure 123/81 09/27/16 10:00 O2 Sat by Pulse Oximetry (%) 92 L 09/26/16 20:33 Intake & Output 09/24/16 09/25/16 09/26/16 09/27/16 23:59 23:59 23:59 23:59 Intake Total 1053.4 1200 500 50 Output Total 140 20 Balance 913.4 1180 500 50 Weight 197 lb 5.019 oz 197 lb 2 oz 184 lb 3 oz 195 lb 1.745 oz Gen: NAD on NC, awake and alert CVS: RRR, NO M/R Lungs: dec BS at lung bases, b/l air entry Ext: No edema, clubbing or cyanosis CBC, BMP 09/27/16 05:10 09/27/16 05:10 Laboratory Tests 09/27/16 06:00 Random Vancomycin 17.571 Current Medications Acetaminophen (Tylenol -) 650 mg PO Q4H PRN PRN Reason: FEVER OR PAIN Last Admin: 09/26/16 05:07 Dose: 650 mg Benzocaine/Menthol (Cepacol Lozenge -) 1 each MM Q4H PRN PRN Reason: SORE THROAT Chlorhexidine Gluconate (Hibiclens For Decolonization -) 1 applic TP HS AKOSUA Last Admin: 09/26/16 22:16 Dose: 1 applic Furosemide (Lasix Injection -) 80 mg IVPUSH DAILY AKOSUA Last Admin: 09/27/16 09:55 Dose: 80 mg Furosemide (Lasix Injection -) 80 mg IVPB ONCE ONE Stop: 09/27/16 10:50 Piperacillin Sod/Tazobactam Sod (Zosyn 2.25gm Ivpb (Pre-Docked)) 50 mls @ 100 mls/hr IVPB Q8H-IV AKOSUA PRN Reason: Protocol Last Admin: 09/27/16 09:52 Dose: 100 mls/hr Vancomycin HCl (Vancomycin (Pre-Docked)) 250 mls @ 250 mls/hr IVPB ONCE AKOSUA PRN Reason: Protocol Stop: 09/27/16 15:44 Last Admin: 09/26/16 15:45 Dose: 250 mls/hr Insulin Aspart (Novolog Vial Sliding Scale -) 1 vial SQ ACHS AKOSUA PRN Reason: Protocol Last Admin: 09/27/16 06:40 Dose: 4 units Insulin Detemir (Levemir Vial) 17 units SQ BIDAC [facility]UA Last Admin: 09/27/16 06:39 Dose: 17 units Mupirocin (Bactroban Ointment (For Decolonization) -) 1 applic NS BID AKOSUA Stop: 09/29/16 09:59 Last Admin: 09/26/16 22:16 Dose: Not Given A/P 66 year old gentleman with PMhx of ESRD on HD, CAD, CHF, IDDM, Sacral Decubitis who presented with weakness and fall and found to have SIRS/Sepsis with DKA and hyperkalemia and metabolic acidosis. #SIRS/Sepsis/Sacral Decubitis Blood cultures grew strep, repeat cultures Vanco level is therapeutic today, recheck in AM ID follow up Debridement as per Vascular Sx today ICU monitoring #ESRD/Hyperkalmeia/Metabolic acidosis with pleural effusions s/p HD yesterday with 2kg UF HD catheter removed Will give Lasix total dose of 160mg IV for diuresis as pt reports some mild sob and CXR yesterday showed small effusions Trend BUN/Cr and electrolytes daily #Anemia Trend CBC WILY with HD Transfuse as per ICU protocol Dominick Vanegas DO
[2016-09-27] MEDS ORDERED: FUROSEMIDE 100 MG/10 ML INJECTABLE VIAL ONE (11:20)
[2016-09-27] MEDS: MUPIROCIN 2% TOPICAL OINTMENT FOR DECOLONIZATION NS SCH ×2 (12:42→21:29)
[2016-09-27] MEDS ORDERED: LIDOCAINE HCL 1%, 10 MG/ML (20ML VIAL) ONE (13:30)
[2016-09-27] MEDS ORDERED: PROPOFOL 20 ML ONE (14:43)
[2016-09-27] MEDS ORDERED: MIDAZOLAM HCL 2 MG/2 ML SINGLE DOSE VIAL ONE (14:43)
--- NOTE | 2016-09-27 15:50 | PN ---
Physical Exam: SUBJECTIVE: Patient seen and examined c/o feeling tired and some SOB. wants to be left alone, waiting to eat after the debridement. OBJECTIVE: Vital Signs Period Temp Pulse Resp BP Sys/Vogt Pulse Ox Last 24 Hr 98.0 F-99.8 F 83-118 15-27 102-127/62-95 92-94 GENERAL: and fully oriented(person/place/time/situation), tired appearing, easily arousable and remains alert during conversation EYES: perrla, eomi EARS, NOSE, THROAT: oropharynx clear without exudates, edentulism, Moist mucous membranes. LUNGS: clear on right mid and upper lobes, quiet at right base, quiet on left mid to lower lung, poor air entry on left upper lobe, No wheezes, and no crackles. No accessory muscle use. HEART: Regular rate and rhythm, normal S1 and S2 without murmur, rub or gallop. ABDOMEN: Soft, nontender, not distended, normoactive bowel sounds, no guarding, UPPER EXTREMITIES: 2+ radial pulses, warm, well-perfused. No cyanosis. No clubbing. No peripheral edema. erythema at left elbow without skin breakdown LOWER EXTREMITIES: 1+ DP pulses, cold extremities, No calf tenderness. No peripheral edema. [id number] demuted skin below left knee, erythema in b/l knees without tenderness or warmth at joint. NEUROLOGICAL: Normal speech. facial symmetry. Laboratory Results - last 24 hr 09/26/16 09/26/16 09/26/16 16:56 17:45 22:10 WBC RBC Hgb Hct MCV MCHC RDW Plt Count MPV Neutrophils % Lymphocytes % Monocytes % Eosinophils % Basophils % Sodium Potassium 3.8 Chloride Carbon Dioxide Anion Gap BUN Creatinine POC Glucometer 122.06365 306.74652 Random Glucose Calcium Random Vancomycin 09/26/16 09/27/16 09/27/16 22:11 05:10 05:10 WBC 11.9 H RBC 3.82 L Hgb 8.7 L Hct 28.0 L MCV 73.2 L MCHC 31.0 L RDW 17.9 H Plt Count 146 MPV 8.7 Neutrophils % 76.3 Lymphocytes % 16.9 D Monocytes % 6.1 Eosinophils % 0.5 Basophils % 0.2 Sodium 136 Potassium 3.8 Chloride 97 L Carbon Dioxide 27 Anion Gap 12 BUN 38 H Creatinine 4.0 H POC Glucometer 322.00489 Random Glucose 224 H D Calcium 7.3 L Random Vancomycin 09/27/16 06:00 WBC RBC Hgb Hct MCV MCHC RDW Plt Count MPV Neutrophils % Lymphocytes % Monocytes % Eosinophils % Basophils % Sodium Potassium Chloride Carbon Dioxide Anion Gap BUN Creatinine POC Glucometer Random Glucose Calcium Random Vancomycin 17.571 Active Medications Generic Name Dose Route Start Last Admin Trade Name Freq PRN Reason Stop Dose Admin Acetaminophen 650 mg 09/25/16 13:35 09/26/16 05:07 Tylenol - PO 650 mg Q4H PRN Administration FEVER OR PAIN Benzocaine/Menthol 1 each 09/25/16 09:12 Cepacol Lozenge - MM Q4H PRN SORE THROAT Chlorhexidine Gluconate 1 applic 09/24/16 22:00 09/26/16 22:16 Hibiclens For Decolonization - TP 1 applic HS AKOSUA Administration Furosemide 80 mg 09/26/16 10:00 09/27/16 09:55 Lasix Injection - IVPUSH 80 mg DAILY AKOSUA Administration Piperacillin Sod/Tazobactam Sod 50 mls @ 100 mls/hr 09/24/16 13:30 09/27/16 09: 52 Zosyn 2.25gm Ivpb (Pre-Docked) IVPB 100 mls/hr Q8H-IV AKOSUA Administration Protocol Insulin Aspart 1 vial 09/25/16 11:00 09/27/16 12:00 Novolog Vial Sliding Scale - SQ 2 units ACHS AKOSUA Administration Protocol Insulin Detemir 17 units 09/26/16 09:21 09/27/16 06:39 Levemir Vial SQ 17 units BIDAC AKOSUA Administration Mupirocin 1 applic 09/24/16 10:00 09/27/16 12:42 Bactroban Ointment (For Decolonization) - NS 09/29/16 09:59 Not Given BID AKOSUA ASSESSMENT/PLAN: 66 yr old man with mulitple co-morbidities BIBEMS for generalized weakness admitted to ICU for sepsis and DKA. - Dr. Orozco consulted for competency evaluation as pt has at times been confused. Infectious Disease severe sepsis likely due to UTI or sacral decubitus ulcer blood and urine cx with resistant organisms, MRSA zosyn 2.25 q8hr 4.5gm IVPB - random vanc levels for renal dosing today: 17 fever - 650 tylenol prn, fever trending down consult: dr. kramer Endocrine DM II uncontrolled - levemir 17units BIDAC sq - NISS, BGM ACHS - labor and delivery registered nurse consulted for diabetic/renal diet teaching hold oral hypoglycemics Renal CKD stage 5 on HD TRsat - will plan for temporary dialysis access tomorrow if needed - fluid restrict to 1.2L per day avoid nephrotoxic medications(avoid NSAIDS) consult dr. Vanegas Dermatology sacral decubitus ulcer - s/p debridement today w Dr. Longoria consulted Cardiovascular tachycardia improved hold oral hypotensives due to low-normal BP Respiratory pt with hx of COPD,titrate oxygen supplementation to maintain o2 sat >90% Hematological microcytic anemia likley related to renal dysfunction, epogen given diet renal diabetic diet dvt: scd's Visit type - Emergency Visit Emergency Visit: No - New Patient This patient is new to me today: No - Critical Care Critical Care patient: Yes Total Critical Care Time (in minutes): 37 Critical Care Statement: The care of this patient involved high complexity decision making to prevent further life threatening deterioration of the patient 's condition and/or to evalute & treat vital organ system(s) failure or risk of failure.
--- NOTE | 2016-09-27 15:52 | OP ---
Operative Note - Note: Operative Date: 09/27/16 Pre-Operative Diagnosis: Necrotic sacral ulcer Operation: Excisional debridement sacrum -- skin, subucutaneous tissue, muscle Post-Operative Diagnosis: Same as Pre-op Surgeon: Tonio Longoria Anesthesia: Fractional Estimated Blood Loss (mls): 50 Operative Report Dictated: Yes
--- NOTE | 2016-09-27 16:10 | PN ---
Progress Note, Physician History of Present Illness: S/P debridement of decubitus No c/o pain Afebrile Blood c/s polymicrobial - Current Medication List Current Medications: Active Medications Acetaminophen (Tylenol -) 650 mg PO Q4H PRN PRN Reason: FEVER OR PAIN Last Admin: 09/26/16 05:07 Dose: 650 mg Benzocaine/Menthol (Cepacol Lozenge -) 1 each MM Q4H PRN PRN Reason: SORE THROAT Chlorhexidine Gluconate (Hibiclens For Decolonization -) 1 applic TP HS AKOSUA Last Admin: 09/26/16 22:16 Dose: 1 applic Chlorhexidine Gluconate (Hibiclens For Decolonization -) 1 applic TP HS AKOSUA Furosemide (Lasix Injection -) 80 mg IVPUSH DAILY AKOSUA Last Admin: 09/27/16 09:55 Dose: 80 mg Piperacillin Sod/Tazobactam Sod (Zosyn 2.25gm Ivpb (Pre-Docked)) 50 mls @ 100 mls/hr IVPB Q8H-IV AKOSUA PRN Reason: Protocol Last Admin: 09/27/16 09:52 Dose: 100 mls/hr Insulin Aspart (Novolog Vial Sliding Scale -) 1 vial SQ ACHS AKOSUA PRN Reason: Protocol Last Admin: 09/27/16 12:00 Dose: 2 units Insulin Detemir (Levemir Vial) 17 units SQ BIDAC AKOSUA Last Admin: 09/27/16 06:39 Dose: 17 units Mupirocin (Bactroban Ointment (For Decolonization) -) 1 applic NS BID AKOSUA Stop: 09/29/16 09:59 Last Admin: 09/27/16 12:42 Dose: Not Given Mupirocin (Bactroban Ointment (For Decolonization) -) 1 applic NS BID AKOSUA Stop: 10/02/16 21:59 - Objective Vital Signs: Vital Signs Temperature 98.0 F 09/27/16 14:00 Pulse Rate 87 09/27/16 14:00 Respiratory Rate 17 09/27/16 14:00 Blood Pressure 123/73 09/27/16 14:00 O2 Sat by Pulse Oximetry (%) 94 L 09/27/16 09:00 Constitutional: Yes: No Distress Eyes: Yes: Conjunctiva Clear Cardiovascular: Yes: Regular Rate and Rhythm, S1, S2 Respiratory: Yes: Diminished Gastrointestinal: Yes: Normal Bowel Sounds, Soft. No: Tenderness Edema: Yes Labs: CBC, BMP 09/27/16 05:10 09/27/16 05:10 INR, PTT INR 1.48 (0.82-1.09) H 09/26/16 05:45 Assessment/Plan Sepsis/ septic shock Polymicrobial bacteremia/ sepsis ( presumptive MRSA, grp F strep, GNR ) multiple potential sources ( lung, skin, ) UTI/ Sepsis secondary to UTI Possible pneumonia ESRD Await final identification of blood isolates S/P removal of dialysis catheter, debridement of decubitus Continue zosyn Vancomycin redosed Cardiology evaluation re: abnormal echocardiogram
--- NOTE | 2016-09-27 17:13 | PN ---
Progress Note (short form) - Note Progress Note: SUBJECTIVE: The patient was seen and examined at the bedside, he denies any issues at this time. For OR today Current Medications Generic Name Dose Route Start Last Admin Trade Name Freq PRN Reason Stop Dose Admin Acetaminophen 650 mg 09/25/16 13:35 09/26/16 05:07 Tylenol - PO 650 mg Q4H PRN Administration FEVER OR PAIN Benzocaine/Menthol 1 each 09/25/16 09:12 Cepacol Lozenge - MM Q4H PRN SORE THROAT Chlorhexidine Gluconate 1 applic 09/27/16 22:00 Hibiclens For Decolonization - TP HS AKOSUA Furosemide 80 mg 09/26/16 10:00 09/27/16 09:55 Lasix Injection - IVPUSH 80 mg DAILY AKOSUA Administration Piperacillin Sod/Tazobactam Sod 50 mls @ 100 mls/hr 09/24/16 13:30 09/27/16 09: 52 Zosyn 2.25gm Ivpb (Pre-Docked) IVPB 100 mls/hr Q8H-IV AKOSUA Administration Protocol Insulin Aspart 1 vial 09/25/16 11:00 09/27/16 12:00 Novolog Vial Sliding Scale - SQ 2 units ACHS AKOSUA Administration Protocol Insulin Detemir 17 units 09/26/16 09:21 09/27/16 06:39 Levemir Vial SQ 17 units BIDAC AKOSUA Administration Mupirocin 1 applic 09/27/16 22:00 Bactroban Ointment (For Decolonization) - NS 10/02/16 21:59 BID AKOSUA OBJECTIVE: Vital Signs Period Temp Pulse Resp BP Sys/Vogt Pulse Ox Last 24 Hr 97.8 F-99.8 F 77-118 15-27 101-127/62-95 87-94 Physical Exam General: NAD Lungs: B/l basilar rhonchi, dry cough Heart: RRR, S1S2 Abd: Soft, non-tender, non-distended. Normoactive bowel sounds Ext: b/l +2 edema, large skin tag R Achilles tendon Skin: large necrotic sacral wounds per record, L knee skin tear- open stable, RCW HD catheter CBCD WBC 11.9 K/mm3 (4.0-10.0) H 09/27/16 05:10 RBC 3.82 M/mm3 (4.00-5.60) L 09/27/16 05:10 Hgb 8.7 GM/dL (11.7-16.9) L 09/27/16 05:10 Hct 28.0 % (35.4-49) L 09/27/16 05:10 MCV 73.2 fl (80-96) L 09/27/16 05:10 MCHC 31.0 g/dl (32.0-35.9) L 09/27/16 05:10 RDW 17.9 % (11.9-15.9) H 09/27/16 05:10 Plt Count 146 K/MM3 (134-434) 09/27/16 05:10 MPV 8.7 fl (7.5-11.1) 09/27/16 05:10 CMP Sodium 136 mmol/L (136-145) 09/27/16 05:10 Potassium 3.8 mmol/L (3.5-5.1) 09/27/16 05:10 Chloride 97 mmol/L (98-107) L 09/27/16 05:10 Carbon Dioxide 27 mmol/L (21-32) 09/27/16 05:10 Anion Gap 12 (8-16) 09/27/16 05:10 BUN 38 mg/dL (7-18) H 09/27/16 05:10 Creatinine 4.0 mg/dL (0.7-1.3) H 09/27/16 05:10 Creat Clearance w eGFR 6.69 (>60) 09/24/16 07:15 Random Glucose 224 mg/dL (74-106) H D 09/27/16 05:10 Calcium 7.3 mg/dL (8.5-10.1) L 09/27/16 05:10 Total Bilirubin 0.4 mg/dL (0.2-1.0) 09/24/16 07:15 AST 27 U/L (15-37) D 09/24/16 07:15 ALT 21 U/L (12-78) 09/24/16 07:15 Alkaline Phosphatase 76 U/L (45-117) D 09/24/16 07:15 Total Protein 5.3 g/dl (6.4-8.2) L 09/24/16 07:15 Albumin 1.5 g/dl (3.4-5.0) L 09/24/16 07:15 CARDIAC ENZYMES Creatine Kinase 343 IU/L (39-308) H D 09/23/16 23:30 Troponin I 0.04 ng/ml (0.00-0.05) D 09/23/16 23:30 Microbiology 09/24/16 07:40 Blood - Pre-Dialysis Blood Culture - Final S Aureus Beta Hem Streptococcus Group F Bacteroides Fragilis 09/24/16 07:15 Blood - Pre-Dialysis Blood Culture - Final S Aureus Beta Hem Streptococcus Group F 09/24/16 01:00 Blood - Peripheral Venous Blood Culture - Final Beta Hem Streptococcus Group F S Aureus 09/24/16 20:45 Stool Salmonella/Shigella Culture - Final NO GROWTH OF SALMONELLA OR SHIGELLA SPECIES OBTAINED 09/24/16 20:45 Stool Campylobacter Culture - Final NO GROWTH OF CAMPYLOBACTER SPECIES OBTAINED 09/24/16 20:45 Stool Yersinia Culture - Final NO GROWTH OF YERSINIA SPECIES OBTAINED 09/24/16 20:45 Stool Vibrio Culture - Final NO GROWTH OF VIBRIO SPECIES OBTAINED 09/24/16 20:45 Stool Escherichia coli 0157 Culture - Final NO GROWTH OF E COLI 0157 OBTAINED 09/24/16 01:20 Urine - Urine Clean Catch Urine Culture - Final Citrobacter Freundii Complex Acinetobacter Baumannii/Haemol 09/24/16 00:30 Blood - Peripheral Venous Blood Culture - Preliminary Beta Hem Streptococcus Group F Presumptive Mrsa (Pbp2a Pos) 09/24/16 20:45 Stool Clostridium difficile Antigen (JADYN) - Final 09/24/16 20:45 Stool Clostridium difficile Toxin Assay - Final Assessment: This is a 66 year old male with PMHx of ESRD- on HD () with permacath, pending mapping for AV-Fistula, HTN, [place] (01/2016), DM, COPD, Sacral Decubital Ulcers presented with diarrhea, sp fall. He was found to be in DKA, hyperkalemia, and transferred to the ICU for septic shock d/t uti and probable sacral ulcers. Plan: 1) ID: Septic shock with beta hemolytic stretococcus group F bacteremia - Lactic acidosis resolved - Continue Zosyn - ECHO with highly mobile mass consistent with a torn or redundant chordae. A vegetation on the mitral valve cannot be excluded - Cultures as above - Appreciate ID consult Diarrhea - C.diff negative - Stool culture negative Sacral Debuital ulcers - For OR debridement today - NPO - Appreciate surgery consult 2) Endocrine: DKA - Gap closed - BGM ACHS - ISS ACHS - Continue Levemir to 17u BID 3) Cardiology: CAD s/p [place] 2015 - Hold Metoprolol 2/2 hypotension caused by sepsis HTN - BP controlled not on meds 4) : ESRD - S/p HD yesterday - HD catheter removed - Lasix 80mg IVP daily - Appreciate nephrology consult 4) Heme: Anemia 2/2 chronic disease - Hgb 8.7 today 5) F/E/N: - Hypokalemia: resolved - NPO for surgery today 6) Prophylaxis: - Hold all chemical dvt prophylaxis 2/2 surgery today 7) Dipso: - Requires continued inpatient care CODE STATUS: FULL CODE Visit type - Emergency Visit Emergency Visit: Yes ED Registration Date: 09/24/16 Care time: The patient presented to the Emergency Department on the above date and was hospitalized for further evaluation of their emergent condition. - New Patient This patient is new to me today: No - Critical Care Critical Care patient: No
[2016-09-27 18:47] LABS: ANION GAP 10 (8-16); CALCIUM 7.3 mg/dL (8.5-10.1); CO2 30 mmol/L (21-32); CREATININE 4.5 mg/dL (0.7-1.3); GLUCOSE,RANDOM 67 mg/dL (74-106)
[2016-09-27] MEDS: CHLORHEXIDINE GLUCONATE 4% CLEANSER FOR DECOLONIZATION TP SCH (21:28)
[2016-09-27] MEDS ORDERED: HEMOQUE TEST 1 EACH EACH ONE (21:31)
[2016-09-28] MEDS: PIPERACILLIN/TAZOB 2.25 GM 50 ML IVPB SCH (02:01)
[2016-09-28] MEDS ORDERED: BENZOCAINE/MENTH/CETYLPYRD CL 1 EACH LOZENGE MM PRN (04:29)
[2016-09-28] MEDS: INSULIN DETEMIR 100 UNITS/ML MDV SQ SCH ×2 (06:31→18:11)
[2016-09-28] MEDS: INSULIN SLIDING SCALE (NOVOLOG) 1 VIAL SQ SCH ×4 (06:33→21:30)
[2016-09-28 07:31] LABS: ALBUMIN 1.5 g/dl (3.4-5.0); ANION GAP 14 (8-16); CALCIUM 7.1 mg/dL (8.5-10.1); CO2 25 mmol/L (21-32); GLUCOSE,RANDOM 172 mg/dL (74-106); MAGNESIUM 1.8 mg/dL (1.8-2.4); PHOSPHOROUS 2.6 mg/dL (2.5-4.9); SGOT/AST 14 U/L (15-37)
[2016-09-28 07:33] LABS: ALK PHOS 99 U/L (45-117); BILIRUBIN,TOTAL 0.4 mg/dL (0.2-1.0); CREATININE 5.2 mg/dL (0.7-1.3); SGPT/ALT 15 U/L (12-78); TOT PROT 5.7 g/dl (6.4-8.2)
[2016-09-28 07:42] LABS: BASOPHIL 0.1 % (0-2.0); EOSINOPHIL 0.6 % (0-4.5); MCH 22.5 pg (25.7-33.7); MCHC 30.5 g/dl (32.0-35.9); MEAN PLT VOLUME 8.5 fl (7.5-11.1); NEUTROPHILS 71.8 % (42.8-82.8); PLATELET COUNT 157 K/MM3 (134-434); RDW 17.9 % (11.9-15.9); WHITE BLOOD COUNT 14.6 K/mm3 (4.0-10.0)
[2016-09-28] MEDS ORDERED: PT OWN MED DRAWER 7, Y5N ONE ×2 (08:39→17:56)
--- NOTE | 2016-09-28 09:32 | PN ---
Progress Note (short form) - Note Progress Note: Renal Follow up for ESRD on HD Pt seen and examined in the ICU awake and alert s/p debridement of sacrum yesterday reports feeling mild SOB from time to time but appears comfortable on NC Vital Signs Temperature 98.6 F 09/28/16 06:00 Pulse Rate 95 H 09/28/16 08:00 Respiratory Rate 18 09/28/16 08:00 Blood Pressure 126/86 09/28/16 08:00 O2 Sat by Pulse Oximetry (%) 94 L 09/28/16 07:49 Intake & Output 09/25/16 09/26/16 09/27/16 09/28/16 23:59 23:59 23:59 23:59 Intake Total 1200 500 800 50 Output Total 20 0 0 Balance 1180 500 800 50 Weight 197 lb 2 oz 184 lb 3 oz 195 lb 1.745 oz 197 lb 8 oz Gen: NAD on NC, awake and alert CVS: RRR, NO M/R Lungs: dec BS at lung bases, b/l air entry Ext: No edema, clubbing or cyanosis CBC, BMP 09/28/16 05:20 09/28/16 05:20 Laboratory Tests 09/28/16 05:20 Calcium 7.1 L Phosphorus 2.6 D Magnesium 1.8 Albumin 1.5 L Current Medications Acetaminophen (Tylenol -) 650 mg PO Q4H PRN PRN Reason: FEVER OR PAIN Benzocaine/Menthol (Cepacol Lozenge -) 1 each MM Q4H PRN PRN Reason: SORE THROAT Chlorhexidine Gluconate (Hibiclens For Decolonization -) 1 applic TP HS AKOSUA Last Admin: 09/27/16 21:28 Dose: 1 applic Furosemide (Lasix Injection -) 80 mg IVPUSH DAILY [facility] Piperacillin Sod/Tazobactam Sod (Zosyn 2.25gm Ivpb (Pre-Docked)) 50 mls @ 100 mls/hr IVPB Q8H-IV [facility] PRN Reason: Protocol Insulin Aspart (Novolog Vial Sliding Scale -) 1 vial SQ ACHS [facility] PRN Reason: Protocol Last Admin: 09/28/16 06:33 Dose: 2 units Insulin Detemir (Levemir Vial) 17 units SQ BIDAC [facility] Last Admin: 09/28/16 06:31 Dose: 17 units Mupirocin (Bactroban Ointment (For Decolonization) -) 1 applic NS BID [facility]OS[facility] Stop: 10/02/16 21:59 Last Admin: 09/27/16 21:29 Dose: 1 applic A/P 66 year old gentleman with PMhx of ESRD on HD, CAD, CHF, IDDM, Sacral Decubitis who presented with weakness and fall and found to have SIRS/Sepsis with DKA and hyperkalemia and metabolic acidosis. #SIRS/Sepsis/Sacral Decubitis Repeat blood cultures drawn yesterday TTE could not r/o vegetation, may need BETTY ID following HD catheter removed Continue Abx as per ID #ESRD/Hyperkalmeia/Metabolic acidosis with pleural effusions pt reports mild sob but O2 sat is stable ordered CXR if evidence of overt fluid overload on CXR may need HD via shiley catheter Continue IV Lasix (increase to BID) #Anemia Trend CBC WILY with HD Transfuse as per ICU protocol Dominick Vanegas DO
[2016-09-28] MEDS ORDERED: FUROSEMIDE 40 MG/4 ML INJECTABLE VIAL ONE (09:37)
--- NOTE | 2016-09-28 09:48 | PN ---
Progress Note (short form) - Note Progress Note: PULM / CCM Pt seen & Examined in the ICU, S/P sacral wound debridmement yesterday, CA+OX3, uncomfortable w/ mild SOB. ACTIVE MEDS Acetaminophen (Tylenol -) 650 mg PO Q4H PRN PRN Reason: FEVER OR PAIN Benzocaine/Menthol (Cepacol Lozenge -) 1 each MM Q4H PRN PRN Reason: SORE THROAT Chlorhexidine Gluconate (Hibiclens For Decolonization -) 1 applic TP HS [facility] Last Admin: 09/27/16 21:28 Dose: 1 applic Furosemide (Lasix Injection -) 100 mg IVPUSH BID [facility] Last Admin: 09/28/16 09:57 Dose: 100 mg Ampicillin Sodium/Sulbactam Sodium (Unasyn 1.5 Gm (Pre-Docked)) 100 mls @ 200 mls/hr IVPB BID [facility] Vancomycin HCl (Vancomycin (Pre-Docked)) 250 mls @ 166.667 mls/hr IVPB ONCE ONE PRN Reason: Protocol Stop: 09/28/16 13:29 Insulin Aspart (Novolog Vial Sliding Scale -) 1 vial SQ ACHS [facility] PRN Reason: Protocol Last Admin: 09/28/16 06:33 Dose: 2 units Insulin Detemir (Levemir Vial) 17 units SQ BIDAC [facility] Last Admin: 09/28/16 06:31 Dose: 17 units Mupirocin (Bactroban Ointment (For Decolonization) -) 1 applic NS BID [facility] Stop: 10/02/16 21:59 Last Admin: 09/28/16 09:51 Dose: Not Given V/S Period Temp Pulse Resp BP Sys/Vogt Pulse Ox Last 24 Hr 97.8 F-99.2 F 77-103 15-25 101-133/59-86 87-94 Intake & Output 09/25/16 09/26/16 09/27/16 09/28/16 23:59 23:59 23:59 23:59 Intake Total 1200 500 800 50 Output Total 20 0 0 Balance 1180 500 800 50 Weight 89.414 kg 83.546 kg 88.5 kg 89.584 kg GEN: Middle aged man, in bed, SOB, ill appearing HEENT: PERRL, anicteric, MMM PULM: Rales ~ 1/2 B/L CV: nml S1 S2, RR, unable to appreciate any G/M/R ABD: Protuberant, XBS, S/S N/T N/D X4Q EXT: + Pulses, WWP X4, periphheral edema NEURO: Follows all, SHEARER, (-) Focal deficit CBC, BMP 09/28/16 05:20 09/28/16 05:20 Microbiology 09/24/16 07:40 Blood - Pre-Dialysis Blood Culture - Final S Aureus Beta Hem Streptococcus Group F Bacteroides Fragilis 09/24/16 07:15 Blood - Pre-Dialysis Blood Culture - Final S Aureus Beta Hem Streptococcus Group F 09/24/16 01:00 Blood - Peripheral Venous Blood Culture - Final Beta Hem Streptococcus Group F S Aureus 09/24/16 20:45 Stool Salmonella/Shigella Culture - Final NO GROWTH OF SALMONELLA OR SHIGELLA SPECIES OBTAINED 09/24/16 20:45 Stool Campylobacter Culture - Final NO GROWTH OF CAMPYLOBACTER SPECIES OBTAINED 09/24/16 20:45 Stool Yersinia Culture - Final NO GROWTH OF YERSINIA SPECIES OBTAINED 09/24/16 20:45 Stool Vibrio Culture - Final NO GROWTH OF VIBRIO SPECIES OBTAINED 09/24/16 20:45 Stool Escherichia coli 0157 Culture - Final NO GROWTH OF E COLI 0157 OBTAINED 09/24/16 01:20 Urine - Urine Clean Catch Urine Culture - Final Citrobacter Freundii Complex Acinetobacter Baumannii/Haemol 09/24/16 00:30 Blood - Peripheral Venous Blood Culture - Preliminary Beta Hem Streptococcus Group F Presumptive Mrsa (Pbp2a Pos) 09/24/16 20:45 Stool Clostridium difficile Antigen (JADYN) - Final 09/24/16 20:45 Stool Clostridium difficile Toxin Assay - Final CXR 09/28: No ETT, no CVC, B/L Pleural effusions ~ 1/2, V/O (My Read) ASSESS: -COPD -HTN -DM -CAD -ESRD on HD -CHF -Polymicrobial bacteremia -Sacral Decubitus Ulcer Infection PLAN: -FiO2 for SpO2 > 92% -Nebs -Fresh HD Cath -HD Today -Change Zo --> Unasyn -Redose Vanc s/p HD today -FSs -SS prn -DVT prophylaxis -GI prophylaxis -D/c --> Floor Edward Velasquez, [facility] [id number] / [facility] Critical Care Total Critical Care Time (in minutes): 39 Critical Care Statement: The care of this patient involved high complexity decision making to prevent further life threatening deterioration of the patient 's condition and/or to evalute & treat vital organ system(s) failure or risk of failure.
[2016-09-28] MEDS: MUPIROCIN 2% TOPICAL OINTMENT FOR DECOLONIZATION NS SCH ×2 (09:51→21:28)
[2016-09-28] MEDS: FUROSEMIDE 100 MG/10 ML INJECTABLE VIAL IVPUSH SCH ×2 (09:57→21:30)
[2016-09-28] MEDS ORDERED: PIPERACILLIN/TAZOB 2.25 GM 50 ML IVPB SCH (10:00)
[2016-09-28] MEDS ORDERED: FUROSEMIDE 100 MG/10 ML INJECTABLE VIAL IVPUSH SCH (10:00)
--- NOTE | 2016-09-28 10:00 | PN ---
Progress Note, Physician Chief Complaint: ID S/P debridmement vancomycin and Zosyn - Current Medication List Current Medications: Active Medications Acetaminophen (Tylenol -) 650 mg PO Q4H PRN PRN Reason: FEVER OR PAIN Benzocaine/Menthol (Cepacol Lozenge -) 1 each MM Q4H PRN PRN Reason: SORE THROAT Chlorhexidine Gluconate (Hibiclens For Decolonization -) 1 applic TP HS [facility] Last Admin: 09/27/16 21:28 Dose: 1 applic Furosemide (Lasix Injection -) 100 mg IVPUSH BID [facility] Piperacillin Sod/Tazobactam Sod (Zosyn 2.25gm Ivpb (Pre-Docked)) 50 mls @ 100 mls/hr IVPB Q8H-IV [facility] PRN Reason: Protocol Insulin Aspart (Novolog Vial Sliding Scale -) 1 vial SQ ACHS [facility] PRN Reason: Protocol Last Admin: 09/28/16 06:33 Dose: 2 units Insulin Detemir (Levemir Vial) 17 units SQ BIDAC [facility] Last Admin: 09/28/16 06:31 Dose: 17 units Mupirocin (Bactroban Ointment (For Decolonization) -) 1 applic NS BID [facility] Stop: 10/02/16 21:59 Last Admin: 09/27/16 21:29 Dose: 1 applic - Objective Vital Signs: Vital Signs Temperature 98.6 F 09/28/16 06:00 Pulse Rate 95 H 09/28/16 08:00 Respiratory Rate 18 09/28/16 08:00 Blood Pressure 126/86 09/28/16 08:00 O2 Sat by Pulse Oximetry (%) 94 L 09/28/16 07:49 Labs: CBC, BMP 09/28/16 05:20 09/28/16 05:20 INR, PTT INR 1.48 (0.82-1.09) H 09/26/16 05:45 Assessment/Plan Microbiology 09/24/16 07:40 Blood - Pre-Dialysis Blood Culture - Final Mr S Aureus Beta Hem Streptococcus Group F Bacteroides Fragilis 09/24/16 07:15 Blood - Pre-Dialysis Blood Culture - Final Mr S Aureus Beta Hem Streptococcus Group F 09/24/16 01:00 Blood - Peripheral Venous Blood Culture - Final Beta Hem Streptococcus Group F Mr S Aureus Laboratory Tests 09/28/16 09/28/16 09/28/16 05:20 05:20 05:20 WBC 14.6 H RBC 4.09 Hct 30.2 L Plt Count 157 Creat Clearance w eGFR 11.15 Random Vancomycin 15.951 Assessment Polymicrobial blood cultures as above Plan Stop Zosyn Unasyn 1.5gr q12H Vanco not today Catheter removal Franco FELIZ
--- NOTE | 2016-09-28 10:29 | OP ---
DATE OF OPERATION: 09/27/2016 PREOPERATIVE DIAGNOSIS: Necrotic sacral ulcers. POSTOPERATIVE DIAGNOSIS: Necrotic sacral ulcers. PROCEDURE: Excisional debridement, skin, subcutaneous tissue, muscle, sacral ulcers. SURGEON: Tonio Hinson MD ANESTHESIA: Fractional. BLOOD LOSS: 50 mL. INDICATIONS: The patient is a 66-year-old male who is in the intensive care unit and has two necrotic sacral ulcers on his backside. It was felt that he would need debridement. Patient was consented for the procedure understanding all risks, benefits, and alternatives and then taken to the operating room. PROCEDURE IN DETAIL: Once in the operating suite, he was placed on the operating table in the supine manner, and the area of the sacrum was prepped and draped in the sterile surgical manner. We then took a No. 15 blade and cut out all the necrotic tissue over the sacrum. The sacrum bone was already exposed. We took all the necrotic tissue and taking it down to the skin, subcutaneous tissue, and muscle. Bovie electrocautery was used to control hemostasis. We then went to a 10 x 10 eschar below it, and 20 mL of lidocaine 1% was injected there, 20 mL was injected in the first ulcer, as well. We then took a No. 15 blade and cut all the ulcer edges, and using Bovie electrocautery, we were able to get down to the skin, subcutaneous tissue, and muscle. Once we were able to take all the necrotic tissue off, there was a good clean base. Bovie electrocautery was used to control all hemostasis. We then went ahead and irrigated the wounds copiously and packed the wounds with wet 4 x 4 and placed dry 4 x 4 and ABD pads and tape. Patient tolerated the procedure with no complications. Patient transferred to PACU in stable condition, where he will have daily dressing changes. TONIO HINSON DO NP/[id number]
[2016-09-28] MEDS ORDERED: LIDOCAINE HCL 1%, 10 MG/ML (20ML VIAL) ONE (11:50)
[2016-09-28] MEDS ORDERED: EPOETIN ALFA 10,000 UNIT/1 ML VIAL SQ ONE (12:00)
[2016-09-28] MEDS ORDERED: VANCOMYCIN 1 GRAM (PRE-DOCKED) 250 ML IVPB ONE (12:00)
--- NOTE | 2016-09-28 12:59 | PROC ---
Central Line Insertion Indication: Other (Dialysis) Risks and Benefits Explained: Yes Consent on Chart: Yes Central Line: Dialysis Cath, Dual Lumen Anesthesia: 1% Lidocaine Sterile Technique: Yes Ultrasound Guided Assistance: Yes Position: Left Femoral Post Insertion: Yes: Other (Confimed easy w/ draw of Dark Venous non-pulsatile blood.) Sterile Dressing Applied: Yes Remarks: Requires Experienced ICU Provider.
--- NOTE | 2016-09-28 14:31 | CON.PSY ---
Psychiatry Consult Chief Complaint: patient seen for an evaluation of competency. Symptoms: reports: Irritability - Previous Psychiatric Treatment Outpatient: None Inpatient: None - Previous Substance Abuse Treatment Outpatient: None Inpatient: None - Current Medications Current Medications: Active Medications Acetaminophen (Tylenol -) 650 mg PO Q4H PRN PRN Reason: FEVER OR PAIN Benzocaine/Menthol (Cepacol Lozenge -) 1 each MM Q4H PRN PRN Reason: SORE THROAT Chlorhexidine Gluconate (Hibiclens For Decolonization -) 1 applic TP HS [facility] Last Admin: 09/27/16 21:28 Dose: 1 applic Furosemide (Lasix Injection -) 100 mg IVPUSH BID [facility] Last Admin: 09/28/16 09:57 Dose: 100 mg Ampicillin Sodium/Sulbactam Sodium (Unasyn 1.5 Gm (Pre-Docked)) 100 mls @ 200 mls/hr IVPB BID [facility] Insulin Aspart (Novolog Vial Sliding Scale -) 1 vial SQ ACHS [facility] PRN Reason: Protocol Last Admin: 09/28/16 13:28 Dose: 4 units Insulin Detemir (Levemir Vial) 17 units SQ BIDAC [facility] Last Admin: 09/28/16 06:31 Dose: 17 units Mupirocin (Bactroban Ointment (For Decolonization) -) 1 applic NS BID [facility] Stop: 10/02/16 21:59 Last Admin: 09/28/16 09:51 Dose: Not Given - Allergies Allergies: Allergies Allergy/AdvReac Type Severity Reaction Status Date / Time No Known Allergies Allergy Verified 09/23/16 22:19 - Current Living Status Usual Living Arrangement: With Significant Other - Current Mental Status Evaluation Appearance: Disheveled Attitude: Guarded - Affect Affect: Constrictive Appropriateness: Appropriate to Content - Mood Mood: Angry - Speech/Language Expressive: Coherent - Psychomotor Activity Psychomotor Activity: Slowed - Thought Process Thought Process: Intact - Thought Content Hallucinations: Absent Delusions: Absent - Self Perception Self Perception: No Impairment - Cognition Attention: Alert Orientation: Time Memory, Immediate Recall: Intact Memory, Short Term: 3/3 Memory, Remote with Promptin/3 - Concentration Serial Sevens Intact: No Simple Calculations Intact: No - Abstraction Proverb Interpretation: Intact Judgement: Minimally Impaired - Insight Insight: Intact - Impulse Control Impulse Control: Good Control - Suicidal Ideation Suicidal Ideation: No - Homicidal Ideation Homicidal Ideation: No Assessment/Plan 1) Patient has the mental capacity to make decisions at this time.
[2016-09-28] MEDS ORDERED: LIDOCAINE HCL 1%, 10 MG/ML (50 mL VIAL) SQ ONE (18:23)
--- NOTE | 2016-09-28 18:32 | PN ---
Progress Note (short form) - Note Progress Note: SUBJECTIVE: The patient was seen and examined at the bedside, he denies any issues at this time. Current Medications Generic Name Dose Route Start Last Admin Trade Name Silver PRN Reason Stop Dose Admin Acetaminophen 650 mg 09/28/16 04:29 Tylenol - PO Q4H PRN FEVER OR PAIN Benzocaine/Menthol 1 each 09/28/16 04:29 Cepacol Lozenge - MM Q4H PRN SORE THROAT Chlorhexidine Gluconate 1 applic 09/27/16 22:00 09/27/16 21:28 Hibiclens For Decolonization - TP 1 applic HS AKOSUA Administration Furosemide 100 mg 09/28/16 10:00 09/28/16 09:57 Lasix Injection - IVPUSH 100 mg BID AKOSUA Administration Ampicillin Sodium/Sulbactam Sodium 100 mls @ 200 mls/hr 09/28/16 22:00 Unasyn 1.5 Gm (Pre-Docked) IVPB BID AKOSUA Insulin Aspart 1 vial 09/28/16 07:00 09/28/16 18:11 Novolog Vial Sliding Scale - SQ 6 units ACHS AKOSUA Administration Protocol Insulin Detemir 17 units 09/28/16 07:00 09/28/16 18:11 Levemir Vial SQ 17 units BIDAC AKOSUA Administration Mupirocin 1 applic 09/27/16 22:00 09/28/16 09:51 Bactroban Ointment (For Decolonization) - NS 10/02/16 21:59 Not Given BID AKOSUA OBJECTIVE: Vital Signs Period Temp Pulse Resp BP Sys/Vogt Pulse Ox Last 24 Hr 98.4 F-99.2 F 87-106 18-25 108-137/59-89 94-94 Physical Exam General: NAD Lungs: B/l basilar rhonchi, dry cough Heart: RRR, S1S2 Abd: Soft, non-tender, non-distended. Normoactive bowel sounds Ext: b/l +2 edema, large skin tag R Achilles tendon Skin: large necrotic sacral wounds per record CBCD WBC 14.6 K/mm3 (4.0-10.0) H 09/28/16 05:20 RBC 4.09 M/mm3 (4.00-5.60) 09/28/16 05:20 Hgb 9.2 GM/dL (11.7-16.9) L 09/28/16 05:20 Hct 30.2 % (35.4-49) L 09/28/16 05:20 MCV 74.0 fl (80-96) L 09/28/16 05:20 MCHC 30.5 g/dl (32.0-35.9) L 09/28/16 05:20 RDW 17.9 % (11.9-15.9) H 09/28/16 05:20 Plt Count 157 K/MM3 (134-434) 09/28/16 05:20 MPV 8.5 fl (7.5-11.1) 09/28/16 05:20 CMP Sodium 135 mmol/L (136-145) L 09/28/16 05:20 Potassium 3.9 mmol/L (3.5-5.1) 09/28/16 05:20 Chloride 96 mmol/L (98-107) L 09/28/16 05:20 Carbon Dioxide 25 mmol/L (21-32) 09/28/16 05:20 Anion Gap 14 (8-16) 09/28/16 05:20 BUN 54 mg/dL (7-18) H D 09/28/16 05:20 Creatinine 5.2 mg/dL (0.7-1.3) H 09/28/16 05:20 Creat Clearance w eGFR 11.15 (>60) 09/28/16 05:20 Random Glucose 172 mg/dL (74-106) H D 09/28/16 05:20 Calcium 7.1 mg/dL (8.5-10.1) L 09/28/16 05:20 Total Bilirubin 0.4 mg/dL (0.2-1.0) 09/28/16 05:20 AST 14 U/L (15-37) L D 09/28/16 05:20 ALT 15 U/L (12-78) D 09/28/16 05:20 Alkaline Phosphatase 99 U/L (45-117) D 09/28/16 05:20 Total Protein 5.7 g/dl (6.4-8.2) L 09/28/16 05:20 Albumin 1.5 g/dl (3.4-5.0) L 09/28/16 05:20 CARDIAC ENZYMES Creatine Kinase 343 IU/L (39-308) H D 09/23/16 23:30 Troponin I 0.04 ng/ml (0.00-0.05) D 09/23/16 23:30 Microbiology 09/27/16 17:20 Blood - Peripheral Venous Blood Culture - Preliminary NO GROWTH OBTAINED AFTER 24 HOURS, INCUBATION TO CONTINUE FOR 4 DAYS. 09/27/16 17:20 Blood - Peripheral Venous Blood Culture - Preliminary NO GROWTH OBTAINED AFTER 24 HOURS, INCUBATION TO CONTINUE FOR 4 DAYS. 09/24/16 07:15 Blood - Pre-Dialysis Blood Culture - Final S Aureus Beta Hem Streptococcus Group F 09/27/16 16:30 Decubiti Gram Stain - Final 09/24/16 07:40 Blood - Pre-Dialysis Blood Culture - Final S Aureus Beta Hem Streptococcus Group F Bacteroides Fragilis 09/24/16 01:00 Blood - Peripheral Venous Blood Culture - Final Beta Hem Streptococcus Group F S Aureus 09/24/16 20:45 Stool Salmonella/Shigella Culture - Final NO GROWTH OF SALMONELLA OR SHIGELLA SPECIES OBTAINED 09/24/16 20:45 Stool Campylobacter Culture - Final NO GROWTH OF CAMPYLOBACTER SPECIES OBTAINED 09/24/16 20:45 Stool Yersinia Culture - Final NO GROWTH OF YERSINIA SPECIES OBTAINED 09/24/16 20:45 Stool Vibrio Culture - Final NO GROWTH OF VIBRIO SPECIES OBTAINED 09/24/16 20:45 Stool Escherichia coli 0157 Culture - Final NO GROWTH OF E COLI 0157 OBTAINED 09/24/16 01:20 Urine - Urine Clean Catch Urine Culture - Final Citrobacter Freundii Complex Acinetobacter Baumannii/Haemol 09/24/16 00:30 Blood - Peripheral Venous Blood Culture - Preliminary Beta Hem Streptococcus Group F Presumptive Mrsa (Pbp2a Pos) 09/24/16 20:45 Stool Clostridium difficile Antigen (JADYN) - Final 09/24/16 20:45 Stool Clostridium difficile Toxin Assay - Final Assessment: This is a 66 year old male with PMHx of ESRD- on HD (/) with permacath, pending mapping for AV-Fistula, HTN, [place] (01/2016), DM, COPD, Sacral Decubital Ulcers presented with diarrhea, sp fall. He was found to be in DKA, hyperkalemia, and transferred to the ICU for septic shock d/t uti and probable sacral ulcers. Plan: 1) ID: Septic shock with beta hemolytic stretococcus group F bacteremia - Lactic acidosis resolved - Changed Abx today to Unasyn - ECHO with highly mobile mass consistent with a torn or redundant chordae. A vegetation on the mitral valve cannot be excluded - Cultures as above - Appreciate ID consult Diarrhea - C.diff negative - Stool culture negative Sacral Debuital ulcers - S/p debridement in OR yesterday - Appreciate surgery consult 2) Endocrine: DKA - Resolved - BGM ACHS - ISS ACHS - Continue Levemir to 17u BID 3) Cardiology: CAD s/p [place] 2015 - Hold Metoprolol 2/2 hypotension caused by sepsis HTN - BP controlled not on meds 4) : ESRD - New dialysis catheter placed today - Lasix 100mg IVPB bid - Appreciate nephrology consult 4) Heme: Anemia 2/2 chronic disease - Hgb 9.2 today 5) F/E/N: - Monitor electrolytes - Renal, diabetic diet 6) Prophylaxis: - Heparin 5,000u sq bid 7) Dipso: - Requires continued inpatient care CODE STATUS: FULL CODE Visit type - Emergency Visit Emergency Visit: Yes ED Registration Date: 09/24/16 Care time: The patient presented to the Emergency Department on the above date and was hospitalized for further evaluation of their emergent condition. - New Patient This patient is new to me today: Yes Date on this admission: 09/29/16 - Critical Care Critical Care patient: Yes Total Critical Care Time (in minutes): 35 Critical Care Statement: The care of this patient involved high complexity decision making to prevent further life threatening deterioration of the patient 's condition and/or to evalute & treat vital organ system(s) failure or risk of failure.
[2016-09-28] MEDS: ACETAMINOPHEN 325 MG TABLET (FP) PO PRN (21:28)
[2016-09-28] MEDS: CHLORHEXIDINE GLUCONATE 4% CLEANSER FOR DECOLONIZATION TP SCH (21:28)
[2016-09-28] MEDS: HEPARIN NA (PORCINE) 5,000 UNITS/ML 1ML VIAL SQ SCH (21:28)
[2016-09-28] MEDS ORDERED: AMPICILLIN NA/SULBACTAM NA 100 ML IVPB SCH (22:00)
[2016-09-29 06:32] LABS: BASOPHIL 0.4 % (0-2.0); EOSINOPHIL 1.1 % (0-4.5); MCH 22.2 pg (25.7-33.7); MCHC 29.6 g/dl (32.0-35.9); MEAN CELL VOLUME 74.7 fl (80-96); MEAN PLT VOLUME 8.1 fl (7.5-11.1); NEUTROPHILS 71.8 % (42.8-82.8); PLATELET COUNT 180 K/MM3 (134-434); WHITE BLOOD COUNT 13.1 K/mm3 (4.0-10.0)
[2016-09-29] MEDS: INSULIN DETEMIR 100 UNITS/ML MDV SQ SCH ×2 (06:47→17:13)
[2016-09-29] MEDS: INSULIN SLIDING SCALE (NOVOLOG) 1 VIAL SQ SCH ×4 (06:47→21:46)
[2016-09-29 07:14] LABS: ALBUMIN 1.6 g/dl (3.4-5.0); ANION GAP 8 (8-16); CALCIUM 7.5 mg/dL (8.5-10.1); CO2 32 mmol/L (21-32); CREATININE 4.6 mg/dL (0.7-1.3); GLUCOSE,RANDOM 69 mg/dL (74-106); MAGNESIUM 1.8 mg/dL (1.8-2.4); PHOSPHOROUS 2.3 mg/dL (2.5-4.9); SGOT/AST 17 U/L (15-37)
[2016-09-29 07:17] LABS: ALK PHOS 100 U/L (45-117); BILIRUBIN,TOTAL 0.5 mg/dL (0.2-1.0); SGPT/ALT 13 U/L (12-78); TOT PROT 6.2 g/dl (6.4-8.2)
--- NOTE | 2016-09-29 07:53 | PN ---
Progress Note (short form) - Note Progress Note: Renal Follow up for ESRD on HD Pt seen and examined in the ICU awake and alert no acute complaints sob is now resolved s/p Hd via shiley catheter yesterday with 2.7kg UF BP stable Vital Signs Temperature 98.4 F 09/29/16 04:00 Pulse Rate 96 H 09/29/16 06:00 Respiratory Rate 17 09/29/16 07:17 Blood Pressure 136/79 09/29/16 06:00 O2 Sat by Pulse Oximetry (%) 94 L 09/29/16 07:17 Intake & Output 09/26/16 09/27/16 09/28/16 09/29/16 23:59 23:59 23:59 23:59 Intake Total 500 800 300 600 Output Total 0 0 Balance 500 800 300 600 Weight 184 lb 3 oz 195 lb 1.745 oz 197 lb 8 oz 194 lb 9 oz Gen: NAD on NC, awake and alert CVS: RRR, NO M/R Lungs: dec BS at lung bases, b/l air entry Ext: No edema, clubbing or cyanosis CBC, BMP 09/29/16 05:15 09/29/16 05:15 Laboratory Tests 09/29/16 05:15 Calcium 7.5 L Phosphorus 2.3 L Magnesium 1.8 Albumin 1.6 L Current Medications Acetaminophen (Tylenol -) 650 mg PO Q4H PRN PRN Reason: FEVER OR PAIN Last Admin: 09/28/16 21:28 Dose: 650 mg Benzocaine/Menthol (Cepacol Lozenge -) 1 each MM Q4H PRN PRN Reason: SORE THROAT Chlorhexidine Gluconate (Hibiclens For Decolonization -) 1 applic TP HS [facility] Last Admin: 09/28/16 21:28 Dose: 1 applic Furosemide (Lasix Injection -) 100 mg IVPUSH BID [facility] Last Admin: 09/28/16 21:30 Dose: 100 mg Heparin Sodium (Porcine) (Heparin -) 5,000 unit SQ BID [facility] Last Admin: 09/28/16 21:28 Dose: 5,000 unit Ampicillin Sodium/Sulbactam Sodium (Unasyn 1.5 Gm (Pre-Docked)) 100 mls @ 200 mls/hr IVPB BID [facility] Last Admin: 09/28/16 21:28 Dose: 200 mls/hr Insulin Aspart (Novolog Vial Sliding Scale -) 1 vial SQ ACHS [facility] PRN Reason: Protocol Last Admin: 09/29/16 06:47 Dose: Not Given Insulin Detemir (Levemir Vial) 17 units SQ BIDAC [facility] Last Admin: 09/29/16 06:47 Dose: Not Given Mupirocin (Bactroban Ointment (For Decolonization) -) 1 applic NS BID [facility] Stop: 10/02/16 21:59 Last Admin: 09/28/16 21:28 Dose: Not Given A/P 66 year old gentleman with PMhx of ESRD on HD, CAD, CHF, IDDM, Sacral Decubitis who presented with weakness and fall and found to have SIRS/Sepsis with DKA and hyperkalemia and metabolic acidosis. 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
--- NOTE | 2016-09-29 08:00 | PN ---
Progress Note, Physician Chief Complaint: ID Appears comfortable on antibiotics Polymicrobial bacteremia - Current Medication List Current Medications: Active Medications Acetaminophen (Tylenol -) 650 mg PO Q4H PRN PRN Reason: FEVER OR PAIN Last Admin: 09/28/16 21:28 Dose: 650 mg Benzocaine/Menthol (Cepacol Lozenge -) 1 each MM Q4H PRN PRN Reason: SORE THROAT Chlorhexidine Gluconate (Hibiclens For Decolonization -) 1 applic TP HS [facility] Last Admin: 09/28/16 21:28 Dose: 1 applic Furosemide (Lasix Injection -) 100 mg IVPUSH BID [facility] Last Admin: 09/28/16 21:30 Dose: 100 mg Heparin Sodium (Porcine) (Heparin -) 5,000 unit SQ BID [facility] Last Admin: 09/28/16 21:28 Dose: 5,000 unit Ampicillin Sodium/Sulbactam Sodium (Unasyn 1.5 Gm (Pre-Docked)) 100 mls @ 200 mls/hr IVPB BID [facility] Last Admin: 09/28/16 21:28 Dose: 200 mls/hr Insulin Aspart (Novolog Vial Sliding Scale -) 1 vial SQ ACHS [facility] PRN Reason: Protocol Last Admin: 09/29/16 06:47 Dose: Not Given Insulin Detemir (Levemir Vial) 17 units SQ BIDAC [facility] Last Admin: 09/29/16 06:47 Dose: Not Given Mupirocin (Bactroban Ointment (For Decolonization) -) 1 applic NS BID [facility] Stop: 10/02/16 21:59 Last Admin: 09/28/16 21:28 Dose: Not Given - Objective Vital Signs: Vital Signs Temperature 98.4 F 09/29/16 04:00 Pulse Rate 96 H 09/29/16 06:00 Respiratory Rate 09/29/16 07:17 Blood Pressure 136/79 09/29/16 06:00 O2 Sat by Pulse Oximetry (%) 94 L 09/29/16 07:17 Constitutional: Yes: Well Nourished, No Distress Neck: Yes: WNL, Supple Cardiovascular: Yes: Regular Rate and Rhythm, S1, S2. No: Murmur Respiratory: Yes: WNL, Regular, CTA Bilaterally Gastrointestinal: Yes: WNL, Normal Bowel Sounds, Soft. No: Tenderness, Tenderness, Rebound Edema: No Labs: CBC, BMP 09/29/16 05:15 09/29/16 05:15 INR, PTT INR 1.48 (0.82-1.09) H 09/26/16 05:45 Assessment/Plan Microbiology 09/24/16 07:40 Blood - Pre-Dialysis Blood Culture - Final S Aureus Beta Hem Streptococcus Group F Bacteroides Fragilis 09/24/16 07:15 Blood - Pre-Dialysis Blood Culture - Final S Aureus Beta Hem Streptococcus Group F 09/24/16 01:20 Urine - Urine Clean Catch Urine Culture - Final Citrobacter Freundii Complex Acinetobacter Baumannii/Haemol 09/24/16 01:00 Blood - Peripheral Venous Blood Culture - Final Beta Hem Streptococcus Group F S Aureus 09/27/16 17:20 Blood - Peripheral Venous Blood Culture - Preliminary NO GROWTH OBTAINED AFTER 24 HOURS, INCUBATION TO CONTINUE FOR 4 DAYS. 09/27/16 17:20 Blood - Peripheral Venous Blood Culture - Preliminary NO GROWTH OBTAINED AFTER 24 HOURS, INCUBATION TO CONTINUE FOR 4 DAYS. Laboratory Tests 09/28/16 09/29/16 09/29/16 05:20 05:15 05:15 WBC 13.1 H Hct 32.4 L Plt Count 180 Creat Clearance w eGFR 12.85 Random Vancomycin 15.951 Assessment Polymicrobial bacteremia decub source Acintobacter in urine Plan Vancomycin 1 gram today Metronidazole 500mg q8h Levofloxacin 250 mg Franco FELIZ
--- NOTE | 2016-09-29 08:16 | PN ---
Progress Note (short form) - Note Progress Note: Progress Note: PULM / CCM Pt seen & Examined in the ICU, S/P sacral wound debridmement yesterday, CA+OX3, uncomfortable w/ mild SOB. 24HR: HD cath placed and tolerated full session with 2.3L UF otherwise stable Active Medications Acetaminophen (Tylenol -) 650 mg PO Q4H PRN PRN Reason: FEVER OR PAIN Last Admin: 09/28/16 21:28 Dose: 650 mg Benzocaine/Menthol (Cepacol Lozenge -) 1 each MM Q4H PRN PRN Reason: SORE THROAT Chlorhexidine Gluconate (Hibiclens For Decolonization -) 1 applic TP HS [facility] Last Admin: 09/28/16 21:28 Dose: 1 applic Furosemide (Lasix Injection -) 100 mg IVPUSH BID [facility] Last Admin: 09/28/16 21:30 Dose: 100 mg Heparin Sodium (Porcine) (Heparin -) 5,000 unit SQ BID [facility] Last Admin: 09/28/16 21:28 Dose: 5,000 unit Metronidazole (Flagyl 250mg Premixed Ivpb -) 50 mls @ 50 mls/hr IVPB Q8H-IV [facility] Ceftazidime 1 gm/ Dextrose 100 mls @ 200 mls/hr IVPB DAILY [facility] PRN Reason: Protocol Insulin Aspart (Novolog Vial Sliding Scale -) 1 vial SQ ACHS [facility] PRN Reason: Protocol Last Admin: 09/29/16 06:47 Dose: Not Given Insulin Detemir (Levemir Vial) 17 units SQ BIDAC [facility] Last Admin: 09/29/16 06:47 Dose: Not Given Mupirocin (Bactroban Ointment (For Decolonization) -) 1 applic NS BID [facility] Stop: 10/02/16 21:59 Last Admin: 09/28/16 21:28 Dose: Not Given Vital Signs Temp 98.4 F 09/29/16 04:00 Pulse 87 09/29/16 08:00 Resp 19 09/29/16 08:00 BP 130/72 09/29/16 08:00 Pulse Ox 94 L 09/29/16 07:17 Intake & Output 09/28/16 09/28/16 09/29/16 11:59 23:59 11:59 Intake Total 50 250 600 Output Total 0 Balance 50 250 600 Weight 89.584 kg 88.252 kg Intake: IVPB 50 250 Oral 0 600 Output: Urine 0 Void 0 Other: Voiding Method Incontinent Incontinent Incontinent # Unmeasured Voids Void 1 2 2 Bowel Movement No Yes: small diarrhea # Bowel Movements 2 Weight Measurement Method [facility] in [facility] Built in [facility] GEN: Middle aged man, in bed, SOB, ill appearing HEENT: PERRL, anicteric, MMM PULM: Rales ~ 1/2 B/L CV: nml S1 S2, RR, unable to appreciate any G/M/R ABD: Protuberant, XBS, S/S N/T N/D X4Q EXT: + Pulses, WWP X4, periphheral edema, fem HD cath CDI NEURO: Follows all, SHEARER, (-) Focal deficit CBC, BMP 09/29/16 05:15 09/29/16 05:15 Microbiology Microbiology 09/27/16 17:20 Blood - Peripheral Venous Blood Culture - Preliminary NO GROWTH OBTAINED AFTER 24 HOURS, INCUBATION TO CONTINUE FOR 4 DAYS. 09/27/16 17:20 Blood - Peripheral Venous Blood Culture - Preliminary NO GROWTH OBTAINED AFTER 24 HOURS, INCUBATION TO CONTINUE FOR 4 DAYS. 09/24/16 07:15 Blood - Pre-Dialysis Blood Culture - Final S Aureus Beta Hem Streptococcus Group F 09/27/16 16:30 Decubiti Gram Stain - Final 09/24/16 07:40 Blood - Pre-Dialysis Blood Culture - Final S Aureus Beta Hem Streptococcus Group F Bacteroides Fragilis 09/24/16 01:00 Blood - Peripheral Venous Blood Culture - Final Beta Hem Streptococcus Group F Mr S Aureus 09/24/16 20:45 Stool Salmonella/Shigella Culture - Final NO GROWTH OF SALMONELLA OR SHIGELLA SPECIES OBTAINED 09/24/16 20:45 Stool Campylobacter Culture - Final NO GROWTH OF CAMPYLOBACTER SPECIES OBTAINED 09/24/16 20:45 Stool Yersinia Culture - Final NO GROWTH OF YERSINIA SPECIES OBTAINED 09/24/16 20:45 Stool Vibrio Culture - Final NO GROWTH OF VIBRIO SPECIES OBTAINED 09/24/16 20:45 Stool Escherichia coli 0157 Culture - Final NO GROWTH OF E COLI 0157 OBTAINED 09/24/16 01:20 Urine - Urine Clean Catch Urine Culture - Final Citrobacter Freundii Complex Acinetobacter Baumannii/Haemol 09/24/16 00:30 Blood - Peripheral Venous Blood Culture - Preliminary Beta Hem Streptococcus Group F Presumptive Mrsa (Pbp2a Pos) 09/24/16 20:45 Stool Clostridium difficile Antigen (JADYN) - Final 09/24/16 20:45 Stool Clostridium difficile Toxin Assay - Final ASSESS: -COPD -HTN -DM -CAD -ESRD on HD -CHF -Polymicrobial bacteremia -Sacral Decubitus Ulcer Infection PLAN: -FiO2 for SpO2 > 92% -Nebs -HD as per Nephrology, will likely need TDC once sterile blood stream -HD Today -Ceftaz x 14 days from 1st negative BC (09/27 negative todate) -FSs -SS prn -DVT prophylaxis -GI prophylaxis -Ok for transfer to Med/surg Floor Tima Chavez ACNP [id number] PULM / CCM Critical Care Total Critical Care Time (in minutes): 39 Critical Care Statement: The care of this patient involved high complexity decision making to prevent further life threatening deterioration of the patient 's condition and/or to evalute & treat vital organ system(s) failure or risk of failure.
[2016-09-29] MEDS: FUROSEMIDE 100 MG/10 ML INJECTABLE VIAL IVPUSH SCH ×2 (09:27→21:28)
[2016-09-29] MEDS: MUPIROCIN 2% TOPICAL OINTMENT FOR DECOLONIZATION NS SCH ×2 (09:28→21:28)
[2016-09-29] MEDS: HEPARIN NA (PORCINE) 5,000 UNITS/ML 1ML VIAL SQ SCH ×2 (09:28→21:27)
[2016-09-29] MEDS ORDERED: PT OWN MED DRAWER 7, Y5N ONE ×2 (09:45→11:07)
[2016-09-29] MEDS: METRONIDAZOLE 500 MG PREMIXED 100 ML IVPB SCH ×2 (11:00→17:20)
[2016-09-29] MEDS: CEFTAZIDIME PENTAHYDRATE 1 GM in DEXTROSE 5%-WATER - 100 ML IVPB SCH (11:54)
--- NOTE | 2016-09-29 13:27 | PN ---
Progress Note (short form) - Note Progress Note: SUBJECTIVE: The patient was seen and examined at the bedside, he reports mild shortness of breath Current Medications Generic Name Dose Route Start Last Admin Trade Name Silver PRN Reason Stop Dose Admin Acetaminophen 650 mg 09/28/16 04:29 09/28/16 21:28 Tylenol - PO 650 mg Q4H PRN Administration FEVER OR PAIN Benzocaine/Menthol 1 each 09/28/16 04:29 Cepacol Lozenge - MM Q4H PRN SORE THROAT Chlorhexidine Gluconate 1 applic 09/27/16 22:00 09/28/16 21:28 Hibiclens For Decolonization - TP 1 applic HS [facility] Administration Furosemide 100 mg 09/28/16 10:00 09/29/16 09:27 Lasix Injection - IVPUSH 100 mg BID [facility] Administration Heparin Sodium (Porcine) 5,000 unit 09/28/16 22:00 09/29/16 09:28 Heparin - SQ 5,000 unit BID [facility] Administration Metronidazole 100 mls @ 100 mls/hr 09/29/16 10:00 09/29/16 11:00 Flagyl 500mg Premixed Ivpb - IVPB 100 mls/hr Q8H-IV [facility] Administration Ceftazidime 1 gm/ Dextrose 100 mls @ 200 mls/hr 09/29/16 10:00 09/29/16 11:54 IVPB 200 mls/hr DAILY [facility] Administration Protocol Insulin Aspart 1 vial 09/28/16 07:00 09/29/16 11:56 Novolog Vial Sliding Scale - SQ 4 units ACHS [facility] Administration Protocol Insulin Detemir 17 units 09/28/16 07:00 09/29/16 06:47 Levemir Vial SQ Not Given BIDAC [facility] Mupirocin 1 applic 09/27/16 22:00 09/29/16 09:28 Bactroban Ointment (For Decolonization) - NS 10/02/16 21:59 Not Given BID [facility] OBJECTIVE: Vital Signs Period Temp Pulse Resp BP Sys/Vogt Pulse Ox Last 24 Hr 98.4 F-100.1 F 82-114 14-22 104-137/67-95 94-94 Physical Exam General: NAD Lungs: B/l basilar rhonchi Heart: RRR, S1S2 Abd: Soft, non-tender, non-distended. Normoactive bowel sounds Ext: b/l +2 edema, large skin tag R Achilles tendon Skin: large necrotic sacral wounds per record CBCD WBC 13.1 K/mm3 (4.0-10.0) H 09/29/16 05:15 RBC 4.34 M/mm3 (4.00-5.60) 09/29/16 05:15 Hgb 9.6 GM/dL (11.7-16.9) L 09/29/16 05:15 Hct 32.4 % (35.4-49) L 09/29/16 05:15 MCV 74.7 fl (80-96) L 09/29/16 05:15 MCHC 29.6 g/dl (32.0-35.9) L 09/29/16 05:15 RDW 18.0 % (11.9-15.9) H 09/29/16 05:15 Plt Count 180 K/MM3 (134-434) 09/29/16 05:15 MPV 8.1 fl (7.5-11.1) 09/29/16 05:15 CMP Sodium 140 mmol/L (136-145) 09/29/16 05:15 Potassium 3.6 mmol/L (3.5-5.1) 09/29/16 05:15 Chloride 100 mmol/L (98-107) 09/29/16 05:15 Carbon Dioxide 32 mmol/L (21-32) D 09/29/16 05:15 Anion Gap 8 (8-16) 09/29/16 05:15 BUN 36 mg/dL (7-18) H D 09/29/16 05:15 Creatinine 4.6 mg/dL (0.7-1.3) H 09/29/16 05:15 Creat Clearance w eGFR 12.85 (>60) 09/29/16 05:15 Random Glucose 69 mg/dL (74-106) L D 09/29/16 05:15 Calcium 7.5 mg/dL (8.5-10.1) L 09/29/16 05:15 Total Bilirubin 0.5 mg/dL (0.2-1.0) D 09/29/16 05:15 AST 17 U/L (15-37) D 09/29/16 05:15 ALT 13 U/L (12-78) 09/29/16 05:15 Alkaline Phosphatase 100 U/L (45-117) 09/29/16 05:15 Total Protein 6.2 g/dl (6.4-8.2) L 09/29/16 05:15 Albumin 1.6 g/dl (3.4-5.0) L 09/29/16 05:15 CARDIAC ENZYMES Creatine Kinase 343 IU/L (39-308) H D 09/23/16 23:30 Troponin I 0.04 ng/ml (0.00-0.05) D 09/23/16 23:30 Microbiology 09/27/16 17:20 Blood - Peripheral Venous Blood Culture - Preliminary NO GROWTH OBTAINED AFTER 24 HOURS, INCUBATION TO CONTINUE FOR 4 DAYS. 09/27/16 17:20 Blood - Peripheral Venous Blood Culture - Preliminary NO GROWTH OBTAINED AFTER 24 HOURS, INCUBATION TO CONTINUE FOR 4 DAYS. 09/24/16 07:15 Blood - Pre-Dialysis Blood Culture - Final Mr S Aureus Beta Hem Streptococcus Group F 09/27/16 16:30 Decubiti Gram Stain - Final 09/24/16 07:40 Blood - Pre-Dialysis Blood Culture - Final Mr S Aureus Beta Hem Streptococcus Group F Bacteroides Fragilis 09/24/16 01:00 Blood - Peripheral Venous Blood Culture - Final Beta Hem Streptococcus Group F Mr S Aureus 09/24/16 20:45 Stool Salmonella/Shigella Culture - Final NO GROWTH OF SALMONELLA OR SHIGELLA SPECIES OBTAINED 09/24/16 20:45 Stool Campylobacter Culture - Final NO GROWTH OF CAMPYLOBACTER SPECIES OBTAINED 09/24/16 20:45 Stool Yersinia Culture - Final NO GROWTH OF YERSINIA SPECIES OBTAINED 09/24/16 20:45 Stool Vibrio Culture - Final NO GROWTH OF VIBRIO SPECIES OBTAINED 09/24/16 20:45 Stool Escherichia coli 0157 Culture - Final NO GROWTH OF E COLI 0157 OBTAINED 09/24/16 01:20 Urine - Urine Clean Catch Urine Culture - Final Citrobacter Freundii Complex Acinetobacter Baumannii/Haemol 09/24/16 00:30 Blood - Peripheral Venous Blood Culture - Preliminary Beta Hem Streptococcus Group F Presumptive Mrsa (Pbp2a Pos) 09/24/16 20:45 Stool Clostridium difficile Antigen (JADYN) - Final 09/24/16 20:45 Stool Clostridium difficile Toxin Assay - Final Assessment: This is a 66 year old male with PMHx of ESRD- on HD (Tu/Th/Sat) with permacath, pending mapping for AV-Fistula, HTN, [place] (01/2016), DM, COPD, Sacral Decubital Ulcers presented with diarrhea, sp fall. He was found to be in DKA, hyperkalemia, and transferred to the ICU for septic shock d/t uti and probable sacral ulcers. Plan: 1) ID: Septic shock with beta hemolytic stretococcus group F bacteremia - Lactic acidosis resolved - Given Vanco with HD yesterday - Continue Flagyl - Continue Ceftazidime - ECHO with highly mobile mass consistent with a torn or redundant chordae. A vegetation on the mitral valve cannot be excluded - Cultures as above - Appreciate ID consult Diarrhea - C.diff negative - Stool culture negative Sacral Debuital ulcers - S/p debridement in OR 09/27 - Appreciate surgery consult 2) Endocrine: DKA - Resolved - BGM ACHS - ISS ACHS - Continue Levemir to 17u BID 3) Cardiology: CAD s/p [place] 2015 - Hold Metoprolol 2/2 hypotension caused by sepsis HTN - BP controlled not on meds 4) : ESRD - S/p HD yesterday - Lasix 100mg IVPB bid - Appreciate nephrology consult 4) Heme: Anemia 2/2 chronic disease - Hgb 9.2 today 5) F/E/N: - Monitor electrolytes - Renal, diabetic diet 6) Prophylaxis: - Heparin 5,000u sq bid 7) Dipso: - Requires continued inpatient care CODE STATUS: FULL CODE Visit type - Emergency Visit Emergency Visit: Yes ED Registration Date: 09/24/16 Care time: The patient presented to the Emergency Department on the above date and was hospitalized for further evaluation of their emergent condition. - New Patient This patient is new to me today: No - Critical Care Critical Care patient: No
[2016-09-29] MEDS ORDERED: FUROSEMIDE 40 MG/4 ML INJECTABLE VIAL ONE (20:11)
[2016-09-29] MEDS: CHLORHEXIDINE GLUCONATE 4% CLEANSER FOR DECOLONIZATION TP SCH (21:28)
[2016-09-30] MEDS: METRONIDAZOLE 500 MG PREMIXED 100 ML IVPB SCH ×3 (02:48→18:03)
[2016-09-30 06:28] LABS: BASOPHIL 0.3 % (0-2.0); EOSINOPHIL 0.8 % (0-4.5); MCH 22.1 pg (25.7-33.7); MCHC 29.7 g/dl (32.0-35.9); MEAN CELL VOLUME 74.5 fl (80-96); MEAN PLT VOLUME 8.4 fl (7.5-11.1); NEUTROPHILS 69.8 % (42.8-82.8); PLATELET COUNT 216 K/MM3 (134-434); RDW 18.2 % (11.9-15.9); WHITE BLOOD COUNT 14.1 K/mm3 (4.0-10.0)
[2016-09-30] MEDS: INSULIN SLIDING SCALE (NOVOLOG) 1 VIAL SQ SCH ×3 (06:33→17:04)
[2016-09-30] MEDS: ACETAMINOPHEN 325 MG TABLET (FP) PO PRN ×2 (06:38→22:07)
[2016-09-30] MEDS: INSULIN DETEMIR 100 UNITS/ML MDV SQ SCH ×2 (06:39→17:04)
[2016-09-30 06:46] LABS: ALBUMIN 1.6 g/dl (3.4-5.0); ANION GAP 9 (8-16); CALCIUM 7.2 mg/dL (8.5-10.1); CO2 29 mmol/L (21-32); GLUCOSE,RANDOM 109 mg/dL (74-106); MAGNESIUM 1.7 mg/dL (1.8-2.4)
[2016-09-30 06:51] LABS: ALK PHOS 86 U/L (45-117); BILIRUBIN,TOTAL 0.5 mg/dL (0.2-1.0); CREATININE 5.6 mg/dL (0.7-1.3); PHOSPHOROUS 2.3 mg/dL (2.5-4.9); SGOT/AST 12 U/L (15-37); SGPT/ALT 11 U/L (12-78); TOT PROT 6.2 g/dl (6.4-8.2)
--- NOTE | 2016-09-30 07:03 | PN ---
Physical Exam: SUBJECTIVE: Patient seen and examined c/o feeling short of breath, not worse than it has been during that last few days. some pain from his ulcers 9/10 without tylenol, reduced to 6/10 with pain medications but that is comfortable enough for him denies dysuria, constipation, chest pain. updated br OBJECTIVE: Vital Signs Period Temp Pulse Resp BP Sys/Vogt Pulse Ox Last 24 Hr 97.6 F-98.7 F 82-114 17-23 120-147/61-110 94-94 GENERAL: and fully oriented(person/place/time/situation), tired appearing, easily arousable and remains alert during conversation EYES: perrla, eomi EARS, NOSE, THROAT: oropharynx clear without exudates, edentulism, Moist mucous membranes. LUNGS: rales b/l, quiet at right base, quiet on left mid to lower lung, poor air entry on left upper lobe, No wheezes, and no crackles HEART: Regular rate and rhythm, normal S1 and S2 without murmur, rub or gallop. ABDOMEN: Soft, nontender, not distended, normoactive bowel sounds, no guarding, UPPER EXTREMITIES: 2+ radial pulses, warm, well-perfused. No cyanosis. No clubbing. No peripheral edema. 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 No peripheral edema. 3/5 hip strength and knee flexion and extension on the right and left. right groin with shiley in place NEUROLOGICAL: Normal speech. facial symmetry. Laboratory Results - last 24 hr 09/29/16 09/29/16 09/29/16 05:15 06:02 06:46 WBC RBC Hgb Hct MCV MCHC RDW Plt Count MPV Neutrophils % Lymphocytes % Monocytes % Eosinophils % Basophils % Sodium 140 Potassium 3.6 Chloride 100 Carbon Dioxide 32 D Anion Gap 8 BUN 36 H D Creatinine 4.6 H Creat Clearance w eGFR 12.85 POC Glucometer 64.40952 57.34013 Random Glucose 69 L D Calcium 7.5 L Phosphorus 2.3 L Magnesium 1.8 Total Bilirubin 0.5 D AST 17 D ALT 13 Alkaline Phosphatase 100 Total Protein 6.2 L Albumin 1.6 L 09/29/16 09/29/16 09/29/16 08:42 11:11 16:55 WBC RBC Hgb Hct MCV MCHC RDW Plt Count MPV Neutrophils % Lymphocytes % Monocytes % Eosinophils % Basophils % Sodium Potassium Chloride Carbon Dioxide Anion Gap BUN Creatinine Creat Clearance w eGFR POC Glucometer 168.76579 204.98310 367.57809 Random Glucose Calcium Phosphorus Magnesium Total Bilirubin AST ALT Alkaline Phosphatase Total Protein Albumin 09/29/16 09/30/16 09/30/16 21:44 05:10 05:10 WBC 14.1 H RBC 4.12 Hgb 9.1 L Hct 30.7 L MCV 74.5 L MCHC 29.7 L RDW 18.2 H Plt Count 216 MPV 8.4 Neutrophils % 69.8 Lymphocytes % 22.3 Monocytes % 6.8 Eosinophils % 0.8 Basophils % 0.3 Sodium 137 Potassium 3.8 Chloride 99 Carbon Dioxide 29 Anion Gap 9 BUN 48 H D Creatinine 5.6 H D Creat Clearance w eGFR 10.24 POC Glucometer [phone] Random Glucose 109 H D Calcium 7.2 L Phosphorus 2.3 L Magnesium 1.7 L Total Bilirubin 0.5 AST 12 L D ALT 11 L Alkaline Phosphatase 86 Total Protein 6.2 L Albumin 1.6 L 09/30/16 05:14 WBC RBC Hgb Hct MCV MCHC RDW Plt Count MPV Neutrophils % Lymphocytes % Monocytes % Eosinophils % Basophils % Sodium Potassium Chloride Carbon Dioxide Anion Gap BUN Creatinine Creat Clearance w eGFR POC Glucometer 129.21604 Random Glucose Calcium Phosphorus Magnesium Total Bilirubin AST ALT Alkaline Phosphatase Total Protein Albumin Active Medications Active Medications Acetaminophen (Tylenol -) 650 mg PO Q4H PRN PRN Reason: FEVER OR PAIN Last Admin: 09/30/16 06:38 Dose: 650 mg Benzocaine/Menthol (Cepacol Lozenge -) 1 each MM Q4H PRN PRN Reason: SORE THROAT Chlorhexidine Gluconate (Hibiclens For Decolonization -) 1 applic TP HS [facility] Last Admin: 09/29/16 21:28 Dose: 1 applic Furosemide (Lasix Injection -) 100 mg IVPUSH BID [facility] Last Admin: 09/30/16 09:29 Dose: 100 mg Heparin Sodium (Porcine) (Heparin -) 5,000 unit SQ BID [facility] Last Admin: 09/30/16 09:28 Dose: 5,000 unit Metronidazole (Flagyl 500mg Premixed Ivpb -) 100 mls @ 100 mls/hr IVPB Q8H-IV [facility] Last Admin: 09/30/16 09:28 Dose: 100 mls/hr Ceftazidime 1 gm/ Dextrose 100 mls @ 200 mls/hr IVPB DAILY [facility] PRN Reason: Protocol Last Admin: 09/30/16 09:27 Dose: 200 mls/hr Vancomycin HCl (Vancomycin (Pre-Docked)) 250 mls @ 166.667 mls/hr IVPB ONCE ONE PRN Reason: Protocol Stop: 09/30/16 11:52 Insulin Aspart (Novolog Vial Sliding Scale -) 1 vial SQ ACHS [facility] PRN Reason: Protocol Last Admin: 09/30/16 11:52 Dose: 2 units Insulin Detemir (Levemir Vial) 14 units SQ BIDAC [facility] Last Admin: 09/30/16 06:39 Dose: 14 units Mupirocin (Bactroban Ointment (For Decolonization) -) 1 applic NS BID [facility] Stop: 10/02/16 21:59 Last Admin: 09/30/16 11:51 Dose: 1 applic ASSESSMENT/PLAN: 66 yr old man with mulitple co-morbidities BIBEMS for generalized weakness admitted to ICU for sepsis and DKA. dr. smith - pt is competent Infectious Disease Ceftazidime IVPB daily + flagyl q8hr ivpb + vanc(renal dosing intermittently) severe sepsis likely due to sacral decubitus ulcer given polymicrobial culture blood and urine cx with resistant organisms, MRSA+ - to give vancomycin post-dialysis today consult: dr. kramer Endocrine DM II uncontrolled - levemir 14units BIDAC sq, plan to decrease PM dose since fasting AM BGM is <60 - NISS, BGM ACHS - post acute care registered nurse consulted for diabetic/renal diet teaching - patient given information and counseling to decrease carbs, fruit juices and focus on lean protein/vegetables/low potassium and phosphorus. hold oral hypoglycemics recommend outpatient endocrinology follow-up for uncontrolled DM Renal CKD stage 5 on HD TRsat - fluid restrict to 1.2L per day - dialysis today, plan to remove dialysis catheter post-dialysis avoid nephrotoxic medications(avoid NSAIDS) consult dr. Vanegas Dermatology sacral decubitus ulcer, s/p debridement recommend outpatient wound clinic follow-up and VNS referral for wound care at home Dr. Longoria consulted Cardiovascular hold oral hypotensives due to low-normal BP Respiratory pt with hx of COPD,titrate oxygen supplementation to maintain o2 sat >90%, currently on 4L saturation 95-96%, may need home oxygenation recommend testing for pre/post requirements, since patient does not walk, test with resting saturation Hematological microcytic anemia, iron studies pending - previous anemia w/u with normal iron, low TIBC and elevated ferritin - likely anemia of chronic disease diet renal sodium diabetic diet dvt: scd's dispo: patient's condition has improved and he may be monitored on med/surg floor. patient will need outpatient PCP referral, current pcp is retired according to patient Visit type - Emergency Visit Emergency Visit: No - New Patient This patient is new to me today: No - Critical Care Critical Care patient: Yes Total Critical Care Time (in minutes): 38 Critical Care Statement: The care of this patient involved high complexity decision making to prevent further life threatening deterioration of the patient 's condition and/or to evalute & treat vital organ system(s) failure or risk of failure.
--- NOTE | 2016-09-30 07:39 | PN ---
Progress Note, Physician Chief Complaint: ID Vancomycin metronidazole Ceftazidime Rx for polymicrobial bacteremia - Current Medication List Current Medications: Active Medications Acetaminophen (Tylenol -) 650 mg PO Q4H PRN PRN Reason: FEVER OR PAIN Last Admin: 09/30/16 06:38 Dose: 650 mg Benzocaine/Menthol (Cepacol Lozenge -) 1 each MM Q4H PRN PRN Reason: SORE THROAT Chlorhexidine Gluconate (Hibiclens For Decolonization -) 1 applic TP HS [facility] Last Admin: 09/29/16 21:28 Dose: 1 applic Furosemide (Lasix Injection -) 100 mg IVPUSH BID [facility] Last Admin: 09/29/16 21:28 Dose: 100 mg Heparin Sodium (Porcine) (Heparin -) 5,000 unit SQ BID [facility] Last Admin: 09/29/16 21:27 Dose: 5,000 unit Metronidazole (Flagyl 500mg Premixed Ivpb -) 100 mls @ 100 mls/hr IVPB Q8H-IV [facility] Last Admin: 09/30/16 02:48 Dose: 100 mls/hr Ceftazidime 1 gm/ Dextrose 100 mls @ 200 mls/hr IVPB DAILY [facility] PRN Reason: Protocol Last Admin: 09/29/16 11:54 Dose: 200 mls/hr Insulin Aspart (Novolog Vial Sliding Scale -) 1 vial SQ ACHS [facility] PRN Reason: Protocol Last Admin: 09/30/16 06:33 Dose: Not Given Insulin Detemir (Levemir Vial) 14 units SQ BIDAC [facility] Last Admin: 09/30/16 06:39 Dose: 14 units Mupirocin (Bactroban Ointment (For Decolonization) -) 1 applic NS BID [facility] Stop: 10/02/16 21:59 Last Admin: 09/29/16 21:28 Dose: 1 applic - Objective Vital Signs: Vital Signs Temperature 98 F 09/30/16 06:00 Pulse Rate 105 H 09/30/16 06:00 Respiratory Rate 22 09/30/16 06:00 Blood Pressure 147/86 09/30/16 06:00 O2 Sat by Pulse Oximetry (%) 94 L 09/29/16 22:00 Constitutional: Yes: No Distress Neck: Yes: WNL, Supple Cardiovascular: Yes: Regular Rate and Rhythm, S1, S2 Respiratory: Yes: WNL, Regular, CTA Bilaterally Gastrointestinal: Yes: Soft Wound/Incision: Yes: Other (Sacral decub) Labs: CBC, BMP 09/30/16 05:10 09/30/16 05:10 INR, PTT INR 1.48 (0.82-1.09) H 09/26/16 05:45 Problem List - Problems (1) Acute on chronic renal failure Code(s): N17.9 - ACUTE KIDNEY FAILURE, UNSPECIFIED N18.9 - CHRONIC KIDNEY DISEASE, UNSPECIFIED (2) Polymicrobial bacterial infection Code(s): A49.9 - BACTERIAL INFECTION, UNSPECIFIED Assessment/Plan Microbiology 09/27/16 16:30 Decubiti Gram Stain - Final 09/24/16 07:40 Blood - Pre-Dialysis Blood Culture - Final S Aureus Beta Hem Streptococcus Group F Bacteroides Fragilis 09/24/16 07:15 Blood - Pre-Dialysis Blood Culture - Final S Aureus Beta Hem Streptococcus Group F 09/24/16 01:20 Urine - Urine Clean Catch Urine Culture - Final Citrobacter Freundii Complex Acinetobacter Baumannii/Haemol 09/24/16 01:00 Blood - Peripheral Venous Blood Culture - Final Beta Hem Streptococcus Group F Mr S Aureus 09/27/16 17:20 Blood - Peripheral Venous Blood Culture - Preliminary NO GROWTH OBTAINED AFTER 48 HOURS, INCUBATION TO CONTINUE FOR 3 DAYS. 09/27/16 17:20 Blood - Peripheral Venous Blood Culture - Preliminary NO GROWTH OBTAINED AFTER 48 HOURS, INCUBATION TO CONTINUE FOR 3 DAYS. 09/27/16 16:30 Decubiti Wound Culture - Preliminary Non Lactose Fermenting Gnb Group D Strep Or Entero Coccus Staphylococcus Species Laboratory Tests 09/28/16 09/30/16 05:20 05:10 WBC 14.1 H Hgb 9.1 L Hct 30.7 L Plt Count 216 Random Vancomycin 15.951 Assessment ESRD Polymicrobial bacteremia MRSA Group F Strep Bacteroides related to infected decubitus Citrobacter Acinetobacter UTI Plan Check Vanco level ECHO neg for vegetations ICU transfer pending Franco FELIZ
--- NOTE | 2016-09-30 08:45 | EKG ---
Test Reason : Blood Pressure : / mmHG Vent. Rate : 071 BPM Atrial Rate : 071 BPM P-R Int : 136 ms QRS Dur : 120 ms QT Int : 484 ms P-R-T Axes : 069 033 079 degrees QTc Int : 525 ms SINUS RHYTHM POSSIBLE LEFT ATRIAL ENLARGEMENT NON-SPECIFIC INTRA-VENTRICULAR CONDUCTION DELAY NONSPECIFIC T WAVE ABNORMALITY ABNORMAL ECG WHEN COMPARED WITH ECG OF 23-SEP-2016 23:26, PREMATURE VENTRICULAR COMPLEXES ARE NO LONGER PRESENT T WAVE INVERSION NOW EVIDENT IN V2 Confirmed by SIM BRADY MD ([id number]) on 09/30/2016 8:45:22 AM Referred By: Confirmed By:SIM BRADY MD
[2016-09-30] MEDS ORDERED: PT OWN MED DRAWER 7, Y5N ONE (09:26)
[2016-09-30] MEDS: CEFTAZIDIME PENTAHYDRATE 1 GM in DEXTROSE 5%-WATER - 100 ML IVPB SCH (09:27)
[2016-09-30] MEDS: HEPARIN NA (PORCINE) 5,000 UNITS/ML 1ML VIAL SQ SCH ×2 (09:28→22:06)
[2016-09-30] MEDS: FUROSEMIDE 100 MG/10 ML INJECTABLE VIAL IVPUSH SCH ×2 (09:29→22:07)
--- NOTE | 2016-09-30 11:07 | PN ---
Progress Note (short form) - Note Progress Note: Renal Follow up for ESRD on HD Pt seen and examined in the ICU awake and alert reports feeling more sob today O2 sats have been good on NC no overnight events Shilley catheter still in place Vital Signs Temperature 98.2 F 09/30/16 10:00 Pulse Rate 92 H 09/30/16 10:00 Respiratory Rate 22 09/30/16 10:00 Blood Pressure 139/71 09/30/16 10:00 O2 Sat by Pulse Oximetry (%) 98 09/30/16 08:12 Intake & Output 09/27/16 09/28/16 09/29/16 09/30/16 23:59 23:59 23:59 23:59 Intake Total 942 015 8060 600 Output Total 0 0 Balance 904 960 7950 600 Weight 195 lb 1.745 oz 197 lb 8 oz 194 lb 9 oz 196 lb 3 oz Gen: NAD on NC, awake and alert CVS: RRR, NO M/R Lungs: dec BS at lung bases, b/l air entry Ext: Trace edema in LE Access: Left Femoral Shilley CBC, BMP 09/30/16 05:10 09/30/16 05:10 Current Medications Acetaminophen (Tylenol -) 650 mg PO Q4H PRN PRN Reason: FEVER OR PAIN Last Admin: 09/30/16 06:38 Dose: 650 mg Benzocaine/Menthol (Cepacol Lozenge -) 1 each MM Q4H PRN PRN Reason: SORE THROAT Chlorhexidine Gluconate (Hibiclens For Decolonization -) 1 applic TP HS [facility] Last Admin: 09/29/16 21:28 Dose: 1 applic Epoetin Neftaly (Procrit -) 10,000 unit IVPUSH ONCE ONE Stop: 09/30/16 11:31 Furosemide (Lasix Injection -) 100 mg IVPUSH BID [facility] Last Admin: 09/30/16 09:29 Dose: 100 mg Heparin Sodium (Porcine) (Heparin -) 5,000 unit SQ BID [facility] Last Admin: 09/30/16 09:28 Dose: 5,000 unit Metronidazole (Flagyl 500mg Premixed Ivpb -) 100 mls @ 100 mls/hr IVPB Q8H-IV [facility] Last Admin: 09/30/16 09:28 Dose: 100 mls/hr Ceftazidime 1 gm/ Dextrose 100 mls @ 200 mls/hr IVPB DAILY [facility] PRN Reason: Protocol Last Admin: 09/30/16 09:27 Dose: 200 mls/hr Vancomycin HCl (Vancomycin (Pre-Docked)) 250 mls @ 166.667 mls/hr IVPB ONCE ONE PRN Reason: Protocol Stop: 09/30/16 11:52 Insulin Aspart (Novolog Vial Sliding Scale -) 1 vial SQ ACHS [facility] PRN Reason: Protocol Last Admin: 09/30/16 06:33 Dose: Not Given Insulin Detemir (Levemir Vial) 14 units SQ BIDAC [facility] Last Admin: 09/30/16 06:39 Dose: 14 units Mupirocin (Bactroban Ointment (For Decolonization) -) 1 applic NS BID [facility] Stop: 10/02/16 21:59 Last Admin: 09/29/16 21:28 Dose: 1 applic A/P 66 year old gentleman with PMhx of ESRD on HD, CAD, CHF, IDDM, Sacral Decubitis who presented with weakness and fall and found to have SIRS/Sepsis with DKA and hyperkalemia and metabolic acidosis. #SIRS/Sepsis/Sacral Decubitis Blood cultures from 09/28 w/o growth check vanco level today with dialysis and redose as needed #ESRD on HD Pt with mild sob and CXR finding of pulmonary vascular congestion will plan or HD today with UF can d/c temporary HD catheter following dialysis today if cultures remain negative can plan for permacath placement this week #Micocytoic Anemia check iron studies Maintain WILY with HD Dominick Vanegas DO
[2016-09-30] MEDS ORDERED: EPOETIN ALFA 10,000 UNIT/1 ML VIAL IVPUSH ONE (11:30)
[2016-09-30] MEDS: MUPIROCIN 2% TOPICAL OINTMENT FOR DECOLONIZATION NS SCH ×2 (11:51→22:06)
--- NOTE | 2016-09-30 12:25 | PN ---
Teaching Attending Note Name of Resident: Brandee Coto ATTENDING PHYSICIAN STATEMENT I saw and evaluated the patient. I reviewed the resident's note and discussed the case with the resident. I agree with the resident's findings and plan as documented. SUBJECTIVE: Patient seen and examined in the ICU. Awake and alert. Remains mildly tachypneic at rest. Saturation 95% on 6 L NC. Left femoral HD catheter intact. For HD today. CXR: Bilateral congestive changes/effusions -> improving from admission Intake & Output 09/27/16 09/28/16 09/29/16 09/30/16 23:59 23:59 23:59 23:59 Intake Total 756 764 7622 600 Output Total 0 0 Balance 529 222 7448 600 Weight 195 lb 1.745 oz 197 lb 8 oz 194 lb 9 oz 196 lb 3 oz Last Vital Signs Temp Pulse Resp BP Pulse Ox 98.2 F 92 H 22 139/71 98 09/30/16 10:00 09/30/16 10:00 09/30/16 10:00 09/30/16 10:00 09/30/16 08:12 Active Medications Acetaminophen (Tylenol -) 650 mg PO Q4H PRN PRN Reason: FEVER OR PAIN Last Admin: 09/30/16 06:38 Dose: 650 mg Benzocaine/Menthol (Cepacol Lozenge -) 1 each MM Q4H PRN PRN Reason: SORE THROAT Chlorhexidine Gluconate (Hibiclens For Decolonization -) 1 applic TP HS [facility] Last Admin: 09/29/16 21:28 Dose: 1 applic Furosemide (Lasix Injection -) 100 mg IVPUSH BID [facility] Last Admin: 09/30/16 09:29 Dose: 100 mg Heparin Sodium (Porcine) (Heparin -) 5,000 unit SQ BID [facility] Last Admin: 09/30/16 09:28 Dose: 5,000 unit Metronidazole (Flagyl 500mg Premixed Ivpb -) 100 mls @ 100 mls/hr IVPB Q8H-IV [facility] Last Admin: 09/30/16 09:28 Dose: 100 mls/hr Ceftazidime 1 gm/ Dextrose 100 mls @ 200 mls/hr IVPB DAILY [facility] PRN Reason: Protocol Last Admin: 09/30/16 09:27 Dose: 200 mls/hr Vancomycin HCl (Vancomycin (Pre-Docked)) 250 mls @ 166.667 mls/hr IVPB ONCE ONE PRN Reason: Protocol Stop: 09/30/16 11:52 Insulin Aspart (Novolog Vial Sliding Scale -) 1 vial SQ ACHS [facility] PRN Reason: Protocol Last Admin: 09/30/16 11:52 Dose: 2 units Insulin Detemir (Levemir Vial) 14 units SQ BIDAC [facility] Last Admin: 09/30/16 06:39 Dose: 14 units Mupirocin (Bactroban Ointment (For Decolonization) -) 1 applic NS BID [facility] Stop: 10/02/16 21:59 Last Admin: 09/30/16 11:51 Dose: 1 applic GEN: Middle aged man, in bed, Mild SOB, chronically ill appearing HEENT: PERRL, anicteric PULM: Bibasilar rales, (-) wheezing CV: S1 S2, RR ABD: Protuberant, XBS, S/S N/T N/D X4Q EXT: + Pulses, periphheral edema, fem HD cath CDI NEURO: Follows all, SHEARER, (-) Focal deficit Laboratory Results - last 24 hr 09/29/16 09/29/16 09/30/16 16:55 21:44 05:10 WBC 14.1 H RBC 4.12 Hgb 9.1 L Hct 30.7 L MCV 74.5 L MCHC 29.7 L RDW 18.2 H Plt Count 216 MPV 8.4 Neutrophils % 69.8 Lymphocytes % 22.3 Monocytes % 6.8 Eosinophils % 0.8 Basophils % 0.3 Sodium Potassium Chloride Carbon Dioxide Anion Gap BUN Creatinine Creat Clearance w eGFR POC Glucometer 367.10233 219.97335 Random Glucose Calcium Phosphorus Magnesium Total Bilirubin AST ALT Alkaline Phosphatase Total Protein Albumin 09/30/16 09/30/16 09/30/16 05:10 05:14 11:47 WBC RBC Hgb Hct MCV MCHC RDW Plt Count MPV Neutrophils % Lymphocytes % Monocytes % Eosinophils % Basophils % Sodium 137 Potassium 3.8 Chloride 99 Carbon Dioxide 29 Anion Gap 9 BUN 48 H D Creatinine 5.6 H D Creat Clearance w eGFR 10.24 POC Glucometer 129.85596 190.13490 Random Glucose 109 H D Calcium 7.2 L Phosphorus 2.3 L Magnesium 1.7 L Total Bilirubin 0.5 AST 12 L D ALT 11 L Alkaline Phosphatase 86 Total Protein 6.2 L Albumin 1.6 L IMP: -COPD -HTN -DM -CAD -ESRD on HD -CHF -Polymicrobial bacteremia -Sacral Decubitus Ulcer Infection PLAN: -FiO2 for SpO2 > 92% -Nebs -HD as per Nephrology -For HD Today -ABX -Glucose monitoring -VTE prophylaxis -Floor -If breathing becomes worse -> Can utilize NIPPV to decrease WOB Dr Tang critical care time spent in reviewing chart, evaluating patient and formulating plan 35 min
[2016-09-30 13:06] LABS: FERRITIN 678.487 ng/ml (16.4-293.9)
--- NOTE | 2016-09-30 17:43 | PN ---
Physical Exam: SUBJECTIVE: Patient seen and examined in the ICU. He was sitting up in the chair, in no acute distress. OBJECTIVE: For dialysis today via left groin dialysis port Patient will need to be monitor for home oxygen use as he appears short of breath at rest Will order respiratory resting oxygen on room air and monitor as patient is not ambulatory Vital Signs Period Temp Pulse Resp BP Sys/Vogt Pulse Ox Last 24 Hr 97.2 F-98.7 F 88-114 16-23 129-147/62-110 94-98 GENERAL: The patient is awake, alert, and fully oriented, in no acute distress. HEAD: Normal with no signs of trauma. NECK: Trachea midline, full range of motion, supple. LUNGS: diminished lung sound HEART: sinus tachycardia @106 ABDOMEN: Soft, nontender, nondistended, normoactive bowel sounds, no guarding, no rebound, no hepatosplenomegaly, no masses. EXTREMITIES: 2+ pulses, warm, well-perfused, no edema. NEUROLOGICAL: Normal speech, non weight bearing PSYCH: Normal mood, normal affect. SKIN: decubital ulcers x 2 of sacrum: unstageable, malodorous with necrosis. Right buttock: stage 4 Wounds present on admission Laboratory Results - last 24 hr 09/29/16 09/30/16 09/30/16 21:44 05:10 05:10 WBC 14.1 H RBC 4.12 Hgb 9.1 L Hct 30.7 L MCV 74.5 L MCHC 29.7 L RDW 18.2 H Plt Count 216 MPV 8.4 Neutrophils % 69.8 Lymphocytes % 22.3 Monocytes % 6.8 Eosinophils % 0.8 Basophils % 0.3 Sodium 137 Potassium 3.8 Chloride 99 Carbon Dioxide 29 Anion Gap 9 BUN 48 H D Creatinine 5.6 H D Creat Clearance w eGFR 10.24 POC Glucometer 219.90707 Random Glucose 109 H D Calcium 7.2 L Phosphorus 2.3 L Magnesium 1.7 L Ferritin 678.487 H Total Bilirubin 0.5 AST 12 L D ALT 11 L Alkaline Phosphatase 86 Total Protein 6.2 L Albumin 1.6 L Random Vancomycin 09/30/16 09/30/16 09/30/16 05:10 05:14 11:47 WBC RBC Hgb Hct MCV MCHC RDW Plt Count MPV Neutrophils % Lymphocytes % Monocytes % Eosinophils % Basophils % Sodium Potassium Chloride Carbon Dioxide Anion Gap BUN Creatinine Creat Clearance w eGFR POC Glucometer 129.87298 190.38240 Random Glucose Calcium Phosphorus Magnesium Ferritin Cancelled Total Bilirubin AST ALT Alkaline Phosphatase Total Protein Albumin Random Vancomycin 09/30/16 11:50 WBC RBC Hgb Hct MCV MCHC RDW Plt Count MPV Neutrophils % Lymphocytes % Monocytes % Eosinophils % Basophils % Sodium Potassium Chloride Carbon Dioxide Anion Gap BUN Creatinine Creat Clearance w eGFR POC Glucometer Random Glucose Calcium Phosphorus Magnesium Ferritin Total Bilirubin AST ALT Alkaline Phosphatase Total Protein Albumin Random Vancomycin 14.354 Active Medications Generic Name Dose Route Start Last Admin Trade Name Freq PRN Reason Stop Dose Admin Acetaminophen 650 mg 09/28/16 04:29 09/30/16 06:38 Tylenol - PO 650 mg Q4H PRN Administration FEVER OR PAIN Benzocaine/Menthol 1 each 09/28/16 04:29 Cepacol Lozenge - MM Q4H PRN SORE THROAT Chlorhexidine Gluconate 1 applic 09/27/16 22:00 09/29/16 21:28 Hibiclens For Decolonization - TP 1 applic HS [facility] Administration Furosemide 100 mg 09/28/16 10:00 09/30/16 09:29 Lasix Injection - IVPUSH 100 mg BID [facility] Administration Heparin Sodium (Porcine) 5,000 unit 09/28/16 22:00 09/30/16 09:28 Heparin - SQ 5,000 unit BID [facility] Administration Metronidazole 100 mls @ 100 mls/hr 09/29/16 10:00 09/30/16 09:28 Flagyl 500mg Premixed Ivpb - IVPB 100 mls/hr Q8H-IV [facility] Administration Ceftazidime 1 gm/ Dextrose 100 mls @ 200 mls/hr 09/29/16 10:00 09/30/16 09:27 IVPB 200 mls/hr DAILY [facility] Administration Protocol Vancomycin HCl 250 mls @ 166.667 mls/hr 09/30/16 10:23 Vancomycin (Pre-Docked) IVPB 09/30/16 11:52 ONCE ONE Protocol Insulin Aspart 1 vial 09/28/16 07:00 09/30/16 17:04 Novolog Vial Sliding Scale - SQ 2 units ACHS [facility] Administration Protocol Insulin Detemir 14 units 09/29/16 14:22 09/30/16 17:04 Levemir Vial SQ 14 units BIDAC [facility] Administration Mupirocin 1 applic 09/27/16 22:00 09/30/16 11:51 Bactroban Ointment (For Decolonization) - NS 10/02/16 21:59 1 applic BID [facility] Administration ASSESSMENT/PLAN: Patient is a 66 year old male who was admitted on 09/24/2016 with generalized weakness and was admitted to the ICU with sepsis and DKA. ID: Severe sepsis secondarty to multiple pressure ulcerations of advanced stages Assessment/Plan: On Ceftazidime IVPB daily, Flagyl IV q8 and Vancomycin + MRSA on initial blood cultures, repeat ngtd Wound culture with multiple organisms Vancomycin today after dialysis ID following Monitor labs, vitals, f/u repeat blood cultures Will need outpatient wound clinic Endocrine: DKA - DM II uncontrolled Assessment/Plan: DKA resolved levemir 14units BIDAC sq Monitor BGMs Will need outpatient follow up for uncontrolled blood sugars Renal: ESRD - chronic Assessment/Plan: fluid restrict >1.2 liters per day Dialysis today Cardiovascular: Assessment/Plan: continue to hold cardiac meds due to low BP Pulmonary: COPD - chronic Assessment/Plan: Monitor for home oxygen use On 4 liters of nasal cannula currently F.E.N. Fluids: PO intak Electrolytes: monitor Nutrition: Renal diet Prophylaxis: Heparin On discharge, patient will need the followin. New PCP outpatient referral (current pcp is retired). 2. follow up with Dr. Longoria in wound care clinic 3. Daycare Director referral for DKA. Visit type - Emergency Visit Emergency Visit: Yes ED Registration Date: 09/24/16 Care time: The patient presented to the Emergency Department on the above date and was hospitalized for further evaluation of their emergent condition. - New Patient This patient is new to me today: Yes Date on this admission: 09/30/16 - Critical Care Critical Care patient: Yes Total Critical Care Time (in minutes): 60 Critical Care Statement: The care of this patient involved high complexity decision making to prevent further life threatening deterioration of the patient 's condition and/or to evalute & treat vital organ system(s) failure or risk of failure.
[2016-09-30] MEDS ORDERED: VANCOMYCIN 1 GRAM (PRE-DOCKED) 250 ML IVPB ONE (18:15)
[2016-09-30] MEDS: CHLORHEXIDINE GLUCONATE 4% CLEANSER FOR DECOLONIZATION TP SCH (22:06)
[2016-10-01] MEDS ORDERED: BENZOCAINE/MENTH/CETYLPYRD CL 1 EACH LOZENGE MM PRN (02:08)
[2016-10-01] MEDS ORDERED: ACETAMINOPHEN 325 MG TABLET (FP) PO PRN (02:08)
[2016-10-01] MEDS: METRONIDAZOLE 500 MG PREMIXED 100 ML IVPB SCH ×3 (02:53→17:02)
[2016-10-01 06:09] LABS: SERUM IRON 26 ug/dL (38-169); TOTAL IRON BINDING CAPACITY 102 ug/dL (250-450); UIBC 76 ug/dL (111-343)
[2016-10-01] MEDS: INSULIN SLIDING SCALE (NOVOLOG) 1 VIAL SQ SCH ×5 (06:14→23:10)
[2016-10-01] MEDS: INSULIN DETEMIR 100 UNITS/ML MDV SQ SCH ×2 (06:14→16:29)
[2016-10-01] MEDS ORDERED: PT OWN MED DRAWER 7, Y5N ONE ×2 (06:48→21:38)
[2016-10-01 08:20] LABS: BASOPHIL 0.3 % (0-2.0); EOSINOPHIL 0.3 % (0-4.5); MCH 22.2 pg (25.7-33.7); MCHC 29.5 g/dl (32.0-35.9); MEAN CELL VOLUME 75.2 fl (80-96); MEAN PLT VOLUME 7.8 fl (7.5-11.1); NEUTROPHILS 84.9 % (42.8-82.8); PLATELET COUNT 191 K/MM3 (134-434)
[2016-10-01 08:47] LABS: ALBUMIN 1.5 g/dl (3.4-5.0); ANION GAP 10 (8-16); CALCIUM 7.3 mg/dL (8.5-10.1); CO2 28 mmol/L (21-32); CREATININE 4.6 mg/dL (0.7-1.3); GLUCOSE,RANDOM 124 mg/dL (74-106); MAGNESIUM 1.7 mg/dL (1.8-2.4); PHOSPHOROUS 2.6 mg/dL (2.5-4.9); SGOT/AST 16 U/L (15-37); SGPT/ALT 10 U/L (12-78)
[2016-10-01 08:49] LABS: ALK PHOS 80 U/L (45-117); BILIRUBIN,TOTAL 0.4 mg/dL (0.2-1.0); TOT PROT 5.8 g/dl (6.4-8.2)
[2016-10-01] MEDS: HEPARIN NA (PORCINE) 5,000 UNITS/ML 1ML VIAL SQ SCH ×2 (09:47→23:09)
[2016-10-01] MEDS ORDERED: MAGNESIUM OXIDE 400 MG TABLET (FP) PO ONE (10:00)
[2016-10-01] MEDS: CEFTAZIDIME PENTAHYDRATE 1 GM in DEXTROSE 5%-WATER - 100 ML IVPB SCH (10:38)
--- NOTE | 2016-10-01 11:18 | SPA.PREOP ---
- PRE-OP NOTE Dx: Renal failure on HD Planned Procedure: Permacath insertion Surgeon: Tonio Longoria Consent: To be obtained by surgeon after risks, benefits and alternatives explained to patient. Last Vital Signs Temp Pulse Resp BP Pulse Ox 99.7 F H 113 H 18 116/53 95 10/01/16 06:00 10/01/16 06:00 10/01/16 06:00 10/01/16 06:00 09/30/16 20:41 Lab Results WBC 16.0 K/mm3 (4.0-10.0) H 10/01/16 07:35 RBC 3.93 M/mm3 (4.00-5.60) L 10/01/16 07:35 Hgb 8.7 GM/dL (11.7-16.9) L 10/01/16 07:35 Hct 29.6 % (35.4-49) L 10/01/16 07:35 MCV 75.2 fl (80-96) L 10/01/16 07:35 MCHC 29.5 g/dl (32.0-35.9) L 10/01/16 07:35 RDW 18.0 % (11.9-15.9) H 10/01/16 07:35 Plt Count 191 K/MM3 (134-434) 10/01/16 07:35 Sodium 138 mmol/L (136-145) 10/01/16 07:35 Potassium 3.9 mmol/L (3.5-5.1) 10/01/16 07:35 Chloride 100 mmol/L (98-107) 10/01/16 07:35 Carbon Dioxide 28 mmol/L (21-32) 10/01/16 07:35 Anion Gap 10 (8-16) 10/01/16 07:35 BUN 33 mg/dL (7-18) H D 10/01/16 07:35 Creatinine 4.6 mg/dL (0.7-1.3) H 10/01/16 07:35 Random Glucose 124 mg/dL (74-106) H 10/01/16 07:35 Calcium 7.3 mg/dL (8.5-10.1) L 10/01/16 07:35 Blood Type B POSITIVE 09/25/16 10:20 Antibody Screen Negative 09/25/16 10:20 INR 1.48 (0.82-1.09) H 09/26/16 05:45 - ASSESSMENT/PLAN 1. Make NPO after midnight except po meds 2. GI/DVT PPX 3. Medical optimization / clearance --> permacath at 10:30AM 4. Patient will need HD 10/02 in the afternoon Visit type - Case Type Case Type: ED Admission
--- NOTE | 2016-10-01 11:26 | PN ---
Progress Note (short form) - Note Progress Note: PULMONARY Somnolent but arousable. No fevers recorded. Denies shortness of breath. Last Vital Signs Temp Pulse Resp BP Pulse Ox 99.7 F H 113 H 18 116/53 95 10/01/16 06:00 10/01/16 06:00 10/01/16 06:00 10/01/16 06:00 09/30/16 20:41 Gen: somnolent Heart: tachycardic, regular Lung: decreased breath sounds at the bases Abd: soft, nontender Ext: no edema CBC, BMP 10/01/16 07:35 10/01/16 07:35 Active Medications Acetaminophen (Tylenol -) 650 mg PO Q4H PRN PRN Reason: FEVER OR PAIN Benzocaine/Menthol (Cepacol Lozenge -) 1 each MM Q4H PRN PRN Reason: SORE THROAT Furosemide (Lasix Injection -) 100 mg IVPUSH BID [facility] Heparin Sodium (Porcine) (Heparin -) 5,000 unit SQ BID [facility] Last Admin: 10/01/16 09:47 Dose: 5,000 unit Ceftazidime 1 gm/ Dextrose 100 mls @ 200 mls/hr IVPB DAILY [facility] PRN Reason: Protocol Last Admin: 10/01/16 10:38 Dose: 200 mls/hr Metronidazole (Flagyl 500mg Premixed Ivpb -) 100 mls @ 100 mls/hr IVPB Q8H-IV [facility] Last Admin: 10/01/16 09:44 Dose: 100 mls/hr Insulin Aspart (Novolog Vial Sliding Scale -) 1 vial SQ ACHS [facility] PRN Reason: Protocol Last Admin: 10/01/16 06:14 Dose: Not Given Insulin Detemir (Levemir Vial) 14 units SQ BIDAC [facility] Last Admin: 10/01/16 06:14 Dose: Not Given A/P Diabetic Ketoacidosis resolved Sacral Decubitus Ulcer Infection s/p Debridement Polymicrobial Bacteremia r/o Endocarditis Severe Sepsis improving Lactic Acidosis resolved Acute Severe LV Systolic Dysfunction ESRD on HD HTN CAD COPD - antibiotics per ID - f/u cultures - glucose control - HD per renal with ultrafiltration - O2 to keep SpO2 >90% - inhaled bronchodilators - DVT prophylaxis
--- NOTE | 2016-10-01 11:31 | PN ---
Progress Note (short form) - Note Progress Note: Renal Follow up for ESRD on HD Pt seen and examined at the bedside is awake and alert no acute complaints s/p dialysis yesterday via femoral shilley that is now removed blood cutltures remain negative no fever or chills Vital Signs Temperature 99.7 F H 10/01/16 06:00 Pulse Rate 113 H 10/01/16 06:00 Respiratory Rate 18 10/01/16 06:00 Blood Pressure 116/53 10/01/16 06:00 O2 Sat by Pulse Oximetry (%) 95 09/30/16 20:41 Intake & Output 09/28/16 09/29/16 09/30/16 10/01/16 23:59 23:59 23:59 23:59 Intake Total 300 1200 1150 100 Output Total 0 Balance 300 1200 1150 100 Weight 197 lb 8 oz 194 lb 9 oz 196 lb 3 oz Gen: NAD on NC, awake and alert CVS: RRR, NO M/R Lungs: dec BS at lung bases, b/l air entry Ext: Trace edema in LE Access: Left Femoral Shilley CBC, BMP 10/01/16 07:35 10/01/16 07:35 Laboratory Tests 10/01/16 07:35 Calcium 7.3 L Phosphorus 2.6 Magnesium 1.7 L Albumin 1.5 L Current Medications Acetaminophen (Tylenol -) 650 mg PO Q4H PRN PRN Reason: FEVER OR PAIN Benzocaine/Menthol (Cepacol Lozenge -) 1 each MM Q4H PRN PRN Reason: SORE THROAT Furosemide (Lasix Injection -) 100 mg IVPUSH BID [facility] Heparin Sodium (Porcine) (Heparin -) 5,000 unit SQ BID [facility] Last Admin: 10/01/16 09:47 Dose: 5,000 unit Ceftazidime 1 gm/ Dextrose 100 mls @ 200 mls/hr IVPB DAILY [facility] PRN Reason: Protocol Last Admin: 10/01/16 10:38 Dose: 200 mls/hr Metronidazole (Flagyl 500mg Premixed Ivpb -) 100 mls @ 100 mls/hr IVPB Q8H-IV [facility] Last Admin: 10/01/16 09:44 Dose: 100 mls/hr Insulin Aspart (Novolog Vial Sliding Scale -) 1 vial SQ ACHS [facility] PRN Reason: Protocol Last Admin: 10/01/16 06:14 Dose: Not Given Insulin Detemir (Levemir Vial) 14 units SQ BIDAC [facility] Last Admin: 10/01/16 06:14 Dose: Not Given A/P 66 year old gentleman with PMhx of ESRD on HD, CAD, CHF, IDDM, Sacral Decubitis who presented with weakness and fall and found to have SIRS/Sepsis with DKA and hyperkalemia and metabolic acidosis. #SIRS/Sepsis/Sacral Decubitis Blood cultures from 09/27 w/o growth ID following Vanco dosed by levels #ESRD on HD s/p HD yesterday no acute indication for dialysis today if blood cutlures remain negative can get permacath tomorrow with dialysis following #Micocytoic Anemia Maintain WILY with HD Dominick Vanegas DO
[2016-10-01] MEDS: FUROSEMIDE 100 MG/10 ML INJECTABLE VIAL IVPUSH SCH ×2 (11:39→23:10)
--- NOTE | 2016-10-01 13:02 | PN ---
Progress Note, Physician History of Present Illness: Lethargic No complaints offerred Low grade temp WBC remains elevated - Current Medication List Current Medications: Active Medications Acetaminophen (Tylenol -) 650 mg PO Q4H PRN PRN Reason: FEVER OR PAIN Benzocaine/Menthol (Cepacol Lozenge -) 1 each MM Q4H PRN PRN Reason: SORE THROAT Epoetin Neftaly (Procrit -) 8,000 unit IVPUSH ONCE ONE Stop: 10/02/16 09:01 Furosemide (Lasix Injection -) 100 mg IVPUSH BID [facility] Last Admin: 10/01/16 11:39 Dose: Not Given Heparin Sodium (Porcine) (Heparin -) 5,000 unit SQ BID [facility] Last Admin: 10/01/16 09:47 Dose: 5,000 unit Ceftazidime 1 gm/ Dextrose 100 mls @ 200 mls/hr IVPB DAILY [facility] PRN Reason: Protocol Last Admin: 10/01/16 10:38 Dose: 200 mls/hr Metronidazole (Flagyl 500mg Premixed Ivpb -) 100 mls @ 100 mls/hr IVPB Q8H-IV [facility] Last Admin: 10/01/16 09:44 Dose: 100 mls/hr Vancomycin HCl 1,000 mg/ (Dextrose) 250 mls @ 250 mls/hr IVPB ONCE ONE PRN Reason: Protocol Stop: 10/02/16 10:59 Insulin Aspart (Novolog Vial Sliding Scale -) 1 vial SQ ACHS [facility] PRN Reason: Protocol Last Admin: 10/01/16 12:43 Dose: 4 units Insulin Detemir (Levemir Vial) 14 units SQ BIDAC [facility] Last Admin: 10/01/16 06:14 Dose: Not Given - Objective Vital Signs: Vital Signs Temperature 99.5 F 10/01/16 10:00 Pulse Rate 94 H 10/01/16 10:00 Respiratory Rate 18 10/01/16 10:00 Blood Pressure 111/52 10/01/16 10:00 O2 Sat by Pulse Oximetry (%) 95 09/30/16 20:41 Constitutional: Yes: No Distress Eyes: Yes: Conjunctiva Clear Cardiovascular: Yes: Regular Rate and Rhythm, S1, S2 Respiratory: Yes: CTA Bilaterally, Diminished Gastrointestinal: Yes: Normal Bowel Sounds, Soft. No: Tenderness Edema: Yes Labs: CBC, BMP 10/01/16 07:35 10/01/16 07:35 INR, PTT INR 1.48 (0.82-1.09) H 09/26/16 05:45 Assessment/Plan Sepsis/ septic shock- improved Polymicrobial bacteremia/ sepsis (MRSA, grpF strep, Bacteroides) S/P debridement of decubitus UTI/ Sepsis secondary to UTI Possible pneumonia ESRD Continue Vancomycin/ Ceftazidime/ Flagyl
--- NOTE | 2016-10-01 13:57 | PATH ---
Surgical Pathology Report Patient Name: RUTH ORANTES Med. Rec. #: [id number] /Age/Gender: 1950 (Age: 66) / M Account: [id number] Location: [address] [place] [address]/[facility] Taken: 09/27/2016 Received: 09/30/2016 Reported: 10/01/2016 Physicians: Tonio Longoria Specimen(s) Received DEBRIDEMENT TISSUE SACRAL ULCER Clinical History Sacral ulcer Final Diagnosis SKIN AND SOFT TISSUE, SACRAL ULCER, DEBRIDEMENT: GANGRENOUS NECROSIS. Electronically Signed Alexander Ramirez M.D. Gross Description Received in formalin labeled "sacral ulcer debrided tissue" is an 11.0 x 7.5 x 2.0 cm aggregate of [place], necrotic skin and underlying soft tissue. Chemist Steroids sections are submitted in one cassette. /09/30/201609/30/2016
[2016-10-01] MEDS: COLLAGENASE CLOSTRIDIUM HIST. 30 GRAMS TUBE TP SCH (15:45)
--- NOTE | 2016-10-01 16:01 | PN ---
Physical Exam: SUBJECTIVE: Patient seen and examined. Resting in bed, asleep. OBJECTIVE: Received dialysis yesterday via left groin dialysis port, left groin port now removed As per renal, if blood cultures remain negative can get permacath tomorrow with dialysis following NPO @ midnight Patient will need to be monitor for home oxygen use as he appears short of breath at rest Will order respiratory resting oxygen on room air and monitor as patient is not ambulatory WBC bumped up to 16, with low grade fevers Vital Signs Period Temp Pulse Resp BP Sys/Vogt Pulse Ox Last 24 Hr 97.6 F-99.8 F 92-120 18-22 103-147/52-90 95-95 GENERAL: The patient is awake, alert, and fully oriented, in no acute distress. HEAD: Normal with no signs of trauma. NECK: Trachea midline, full range of motion, supple. LUNGS: diminished lung sound HEART: sinus tachycardia @106 ABDOMEN: Soft, nontender, nondistended, normoactive bowel sounds, no guarding, no rebound, no hepatosplenomegaly, no masses. EXTREMITIES: 2+ pulses, warm, well-perfused, no edema. NEUROLOGICAL: Normal speech, non weight bearing PSYCH: Normal mood, normal affect. SKIN: decubital ulcers x 2 of sacrum: unstageable, malodorous with necrosis. Right buttock: stage 4 Wounds present on admission Laboratory Results - last 24 hr 09/30/16 09/30/16 09/30/16 05:10 16:49 22:36 WBC RBC Hgb Hct MCV MCHC RDW Plt Count MPV Neutrophils % Lymphocytes % Monocytes % Eosinophils % Basophils % Sodium Potassium Chloride Carbon Dioxide Anion Gap BUN Creatinine Creat Clearance w eGFR POC Glucometer 165.97267 75.05175 Random Glucose Calcium Phosphorus Magnesium Iron 26 L TIBC 102 L Iron Saturation 25 Total Bilirubin AST ALT Alkaline Phosphatase Total Protein Albumin Random Vancomycin 10/01/16 10/01/16 10/01/16 05:52 07:34 07:35 WBC RBC Hgb Hct MCV MCHC RDW Plt Count MPV Neutrophils % Lymphocytes % Monocytes % Eosinophils % Basophils % Sodium Potassium Chloride Carbon Dioxide Anion Gap BUN Creatinine Creat Clearance w eGFR POC Glucometer 54 141 Random Glucose Calcium Phosphorus Magnesium Iron TIBC Iron Saturation Total Bilirubin AST ALT Alkaline Phosphatase Total Protein Albumin Random Vancomycin 17.299 10/01/16 10/01/16 10/01/16 07:35 07:35 11:21 WBC 16.0 H RBC 3.93 L Hgb 8.7 L Hct 29.6 L MCV 75.2 L MCHC 29.5 L RDW 18.0 H Plt Count 191 MPV 7.8 Neutrophils % 84.9 H D Lymphocytes % 10.0 D Monocytes % 4.5 Eosinophils % 0.3 Basophils % 0.3 Sodium 138 Potassium 3.9 Chloride 100 Carbon Dioxide 28 Anion Gap 10 BUN 33 H D Creatinine 4.6 H Creat Clearance w eGFR 12.85 POC Glucometer 201 Random Glucose 124 H Calcium 7.3 L Phosphorus 2.6 Magnesium 1.7 L Iron TIBC Iron Saturation Total Bilirubin 0.4 AST 16 D ALT 10 L Alkaline Phosphatase 80 Total Protein 5.8 L Albumin 1.5 L Random Vancomycin Active Medications Generic Name Dose Route Start Last Admin Trade Name Freq PRN Reason Stop Dose Admin Acetaminophen 650 mg 10/01/16 02:08 Tylenol - PO Q4H PRN FEVER OR PAIN Benzocaine/Menthol 1 each 10/01/16 02:08 Cepacol Lozenge - MM Q4H PRN SORE THROAT Collagenase 1 applic 10/01/16 15:30 Santyl - TP DAILY [facility] Epoetin Neftaly 8,000 unit 10/02/16 09:00 Procrit - IVPUSH 10/02/16 09:01 ONCE ONE Furosemide 100 mg 10/01/16 10:00 10/01/16 11:39 Lasix Injection - IVPUSH Not Given BID [facility] Heparin Sodium (Porcine) 5,000 unit 10/01/16 10:00 10/01/16 09:47 Heparin - SQ 5,000 unit BID [facility] Administration Ceftazidime 1 gm/ Dextrose 100 mls @ 200 mls/hr 10/01/16 10:00 10/01/16 10:38 IVPB 200 mls/hr DAILY [facility] Administration Protocol Metronidazole 100 mls @ 100 mls/hr 10/01/16 10:00 10/01/16 09:44 Flagyl 500mg Premixed Ivpb - IVPB 100 mls/hr Q8H-IV [facility] Administration Vancomycin HCl 1,000 mg/ 250 mls @ 250 mls/hr 10/02/16 10:00 Dextrose IVPB 10/02/16 10:59 ONCE ONE Protocol Insulin Aspart 1 vial 10/01/16 07:00 06/20/17 12:43 Novolog Vial Sliding Scale - SQ 4 units ACHS [facility] Administration Protocol Insulin Detemir 14 units 10/01/16 07:00 10/01/16 06:14 Levemir Vial SQ Not Given BIDAC [facility] ASSESSMENT/PLAN: Patient is a 66 year old male who was admitted on 09/24/2016 with generalized weakness and was admitted to the ICU with sepsis and DKA. ID: Severe sepsis secondary to multiple pressure ulcerations of advanced stages Assessment/Plan: On Ceftazidime IVPB daily, Flagyl IV q8 and Vancomycin + MRSA on initial blood cultures, repeat ngtd Wound culture with multiple organisms ID following Monitor labs, vitals, f/u repeat blood cultures Will need outpatient wound clinic Renal: ESRD - chronic Assessment/Plan: fluid restrict >1.2 liters per day Received dialysis yesterday via left groin dialysis port, left groin port now removed As per renal, if blood cultures remain negative can get permacath tomorrow with dialysis following NPO @ midnight Endocrine: DKA - DM II uncontrolled Assessment/Plan: DKA resolved levemir 14 units BIDAC sq Monitor BGMs Will need outpatient follow up for uncontrolled blood sugars Cardiovascular: Assessment/Plan: continue to hold cardiac meds due to low BP Pulmonary: COPD - chronic Assessment/Plan: Monitor for home oxygen use On 4 liters of nasal cannula currently F.E.N. Fluids: PO intake adequate Electrolytes: monitor Nutrition: Renal diet Prophylaxis: Heparin BID, hold a.m. dose for permacath placement Disposition: On discharge, patient will need the followin. New PCP outpatient referral (current pcp is retired). 2. follow up with Dr. Longoria in wound care clinic 3. Promotions Assistant Sales Marketing referral for DKA. Visit type - Emergency Visit Emergency Visit: Yes ED Registration Date: 09/24/16 Care time: The patient presented to the Emergency Department on the above date and was hospitalized for further evaluation of their emergent condition. - New Patient This patient is new to me today: No - Critical Care Critical Care patient: No - Discharge Referral Referred to [facility] Med P.C.: No
[2016-10-02] MEDS: METRONIDAZOLE 500 MG PREMIXED 100 ML IVPB SCH ×3 (02:44→17:39)
[2016-10-02] MEDS: INSULIN DETEMIR 100 UNITS/ML MDV SQ SCH (06:46)
[2016-10-02] MEDS: INSULIN SLIDING SCALE (NOVOLOG) 1 VIAL SQ SCH ×4 (06:46→22:12)
[2016-10-02] MEDS ORDERED: DEXTROSE 50%-WATER - 25 GM/50 ML VIAL IVPUSH ONE (06:53)
[2016-10-02] MEDS ORDERED: LIDOCAINE HCL 1%, 10 MG/ML (20ML VIAL) ONE ×2 (08:02→11:57)
[2016-10-02 08:59] LABS: PARASITES CONCENTRATED SMEAR FINAL RESULT
--- NOTE | 2016-10-02 09:32 | PN ---
Progress Note, Physician History of Present Illness: Low grade temps past 24hr. Repeat BC obtained Insertion of permacath postponed because of fever Patient has no complaints Denies chills No c/o chest pain, dyspnea, cough - Current Medication List Current Medications: Active Medications Acetaminophen (Tylenol -) 650 mg PO Q4H PRN PRN Reason: FEVER OR PAIN Benzocaine/Menthol (Cepacol Lozenge -) 1 each MM Q4H PRN PRN Reason: SORE THROAT Collagenase (Santyl -) 1 applic TP DAILY [facility] Last Admin: 10/01/16 15:45 Dose: Not Given Epoetin Neftaly (Procrit -) 8,000 unit IVPUSH ONCE ONE Stop: 10/02/16 09:01 Furosemide (Lasix Injection -) 100 mg IVPUSH BID [facility] Last Admin: 10/01/16 23:10 Dose: 100 mg Heparin Sodium (Porcine) (Heparin -) 5,000 unit SQ BID [facility] Last Admin: 10/01/16 23:09 Dose: 5,000 unit Ceftazidime 1 gm/ Dextrose 100 mls @ 200 mls/hr IVPB DAILY [facility] PRN Reason: Protocol Last Admin: 10/01/16 10:38 Dose: 200 mls/hr Metronidazole (Flagyl 500mg Premixed Ivpb -) 100 mls @ 100 mls/hr IVPB Q8H-IV [facility] Last Admin: 10/02/16 02:44 Dose: 100 mls/hr Vancomycin HCl 1,000 mg/ (Dextrose) 250 mls @ 250 mls/hr IVPB ONCE ONE PRN Reason: Protocol Stop: 10/02/16 10:59 Insulin Aspart (Novolog Vial Sliding Scale -) 1 vial SQ ACHS [facility] PRN Reason: Protocol Last Admin: 10/02/16 06:46 Dose: Not Given Insulin Detemir (Levemir Vial) 14 units SQ AM [facility] Insulin Detemir (Levemir Vial) 10 units SQ HS [facility] - Objective Vital Signs: Vital Signs Temperature 100.2 F H 10/02/16 08:54 Pulse Rate 96 H 10/02/16 08:54 Respiratory Rate 18 10/02/16 08:54 Blood Pressure 121/74 10/02/16 08:54 O2 Sat by Pulse Oximetry (%) 95 10/01/16 21:00 Constitutional: Yes: No Distress, Pallor Eyes: Yes: Conjunctiva Clear Cardiovascular: Yes: Regular Rate and Rhythm, S1, S2 Respiratory: Yes: Diminished Gastrointestinal: Yes: Normal Bowel Sounds, Soft. No: Tenderness Edema: Yes Integumentary: Yes: Other (+ necrotic sacral decubitus) Labs: CBC, BMP 10/01/16 07:35 10/01/16 07:35 INR, PTT INR 1.48 (0.82-1.09) H 09/26/16 05:45 Assessment/Plan Sepsis/ septic shock- improved Low grade temp ? decubitus source Polymicrobial bacteremia/ sepsis (MRSA, grpF strep, Bacteroides) S/P debridement of decubitus UTI/ Sepsis secondary to UTI Possible pneumonia ESRD Repeat BC sent Surgical follow up- may need further debridement of decubitus Continue Vancomycin/ Ceftazidime/ Flagyl
[2016-10-02] MEDS ORDERED: PT OWN MED DRAWER 7, Y5N ONE ×4 (10:30→21:46)
[2016-10-02] MEDS: CEFTAZIDIME PENTAHYDRATE 1 GM in DEXTROSE 5%-WATER - 100 ML IVPB SCH ×3 (10:48→17:39)
[2016-10-02] MEDS: FUROSEMIDE 100 MG/10 ML INJECTABLE VIAL IVPUSH SCH ×2 (10:49→12:16)
[2016-10-02] MEDS: COLLAGENASE CLOSTRIDIUM HIST. 30 GRAMS TUBE TP SCH (10:50)
--- NOTE | 2016-10-02 11:03 | PN ---
Progress Note (short form) - Note Progress Note: Vascular Surgery Pt seen and examined. Sacral ulcers with slough, but look a lot better. No signs of infectin. Coccyx is exposed. Will place temporary cath today. Will place permacath miles. Tonio Longoria DO
--- NOTE | 2016-10-02 12:20 | PN ---
Progress Note (short form) - Note Progress Note: Renal Follow up for ESRD on HD Pt seen and examined at the bedside had low grade fever this am, OR for permacath canceled pt reports mild sob, no chest pain N/V/D to get HD via shiley catheter today Vital Signs Temperature 100.2 F H 10/02/16 08:54 Pulse Rate 96 H 10/02/16 08:54 Respiratory Rate 18 10/02/16 08:54 Blood Pressure 121/74 10/02/16 08:54 O2 Sat by Pulse Oximetry (%) 95 10/01/16 21:00 Intake & Output 09/29/16 09/30/16 10/01/16 10/02/16 23:59 23:59 23:59 23:59 Intake Total 1200 1150 1655 100 Balance 1200 1150 1655 100 Weight 194 lb 9 oz 196 lb 3 oz 186 lb 8 oz Gen: NAD on NC, awake and alert CVS: RRR, NO M/R Lungs: dec BS at lung bases, b/l air entry Ext: Trace edema in LE Access: Left Femoral Shilley CBC, BMP 10/01/16 07:35 10/01/16 07:35 Laboratory Tests 10/01/16 07:35 Calcium 7.3 L Phosphorus 2.6 Magnesium 1.7 L Albumin 1.5 L Current Medications Acetaminophen (Tylenol -) 650 mg PO Q4H PRN PRN Reason: FEVER OR PAIN Benzocaine/Menthol (Cepacol Lozenge -) 1 each MM Q4H PRN PRN Reason: SORE THROAT Collagenase (Santyl -) 1 applic TP DAILY [facility] Last Admin: 10/02/16 10:50 Dose: 1 applic Epoetin Neftaly (Procrit -) 8,000 unit IVPUSH ONCE ONE Stop: 10/02/16 09:01 Furosemide (Lasix Injection -) 100 mg IVPUSH BID [facility] Last Admin: 10/02/16 12:16 Dose: Not Given Heparin Sodium (Porcine) (Heparin -) 5,000 unit SQ BID [facility] Last Admin: 10/01/16 23:09 Dose: 5,000 unit Ceftazidime 1 gm/ Dextrose 100 mls @ 200 mls/hr IVPB DAILY [facility] PRN Reason: Protocol Last Admin: 10/02/16 10:59 Dose: Not Given Metronidazole (Flagyl 500mg Premixed Ivpb -) 100 mls @ 100 mls/hr IVPB Q8H-IV [facility] Last Admin: 10/02/16 10:49 Dose: 100 mls/hr Vancomycin HCl 1,000 mg/ (Dextrose) 250 mls @ 250 mls/hr IVPB ONCE ONE PRN Reason: Protocol Stop: 10/02/16 10:59 Insulin Aspart (Novolog Vial Sliding Scale -) 1 vial SQ ACHS [facility] PRN Reason: Protocol Last Admin: 10/02/16 06:46 Dose: Not Given Insulin Detemir (Levemir Vial) 14 units SQ AM [facility] Insulin Detemir (Levemir Vial) 10 units SQ HS [facility] A/P 66 year old gentleman with PMhx of ESRD on HD, CAD, CHF, IDDM, Sacral Decubitis who presented with weakness and fall and found to have SIRS/Sepsis with DKA and hyperkalemia and metabolic acidosis. #SIRS/Sepsis/Sacral Decubitis Blood cultures from 09/27 w/o growth Continue Ceftaz/Vanco/Flagyl low grade temp today, repeat cutlures sent #ESRD on HD HD today via daniel with UF as tolerated permacath placement tomorrow if pt remains afebrile #Micocytoic Anemia Maintain WILY with HD Dominick Vanegas DO
--- NOTE | 2016-10-02 12:23 | PROC ---
Central Line Insertion - Procedure Note TIME OUT performed prior to this procedure with verbal confirmation of correct patient identity, correct side, agreement of the procedure, correct patient position, availability of necessary equipment. The consent form is complete and accurate. Risk of possible infection and bleeding have been discussed with the patient. Safety precautions based on patient history or medication use has been addressed. Indication: Other (Needs HD) Central Line: Dialysis Cath, Dual Lumen Position: Reverse Trendelenberg Area prepped with Chlorhexidine solution then draped using sterile barrier protection. Anesthesia: Lidocaine 1% Technique used: Seldinger Ultrasound Guided Assistance: No Site: Right Femoral Dark venous non-pulsatile flow noted from hub of needle. The catheter was introduced. Guide wire removed intact. Each port aspirated then flushed with sterile normal saline and capped. Line secured to skin with silk suture. Biopatch placed around base of line. Sterile occlusive dressing applied. No complications. Patient tolerated the procedure well. HD notified.
[2016-10-02] MEDS ORDERED: EPOETIN ALFA 10,000 UNIT/1 ML VIAL IVPUSH ONE ×2 (13:00→15:00)
[2016-10-02 13:34] LABS: MCH 22.2 pg (25.7-33.7); MCHC 29.5 g/dl (32.0-35.9); MEAN CELL VOLUME 75.1 fl (80-96); MEAN PLT VOLUME 7.6 fl (7.5-11.1); PLATELET COUNT 209 K/MM3 (134-434); RDW 18.4 % (11.9-15.9); WHITE BLOOD COUNT 22.5 K/mm3 (4.0-10.0)
[2016-10-02 13:52] LABS: ALBUMIN 1.6 g/dl (3.4-5.0); ALK PHOS 74 U/L (45-117); ANION GAP 11 (8-16); BILIRUBIN,TOTAL 0.4 mg/dL (0.2-1.0); CALCIUM 7.1 mg/dL (8.5-10.1); CO2 27 mmol/L (21-32); CREATININE 6.1 mg/dL (0.7-1.3); GLUCOSE,RANDOM 145 mg/dL (74-106); PHOSPHOROUS 3.8 mg/dL (2.5-4.9); SGOT/AST 18 U/L (15-37); SGPT/ALT 10 U/L (12-78); TOT PROT 5.7 g/dl (6.4-8.2)
[2016-10-02 14:14] LABS: PLATELET ESTIMATE ADEQUATE (NORMAL)
--- NOTE | 2016-10-02 16:37 | PN ---
Progress Note (short form) - Note Progress Note: SUBJECTIVE: The patient was seen and examined at the bedside, he reports mild shortness of breath Permacath placement on hold 2/2 temperature this AM 100.[address] Longoria, for placement tomorrow if remains afebrile Cultures resent For HD today, dialysis catheter placed Current Medications Generic Name Dose Route Start Last Admin Trade Name Freq PRN Reason Stop Dose Admin Acetaminophen 650 mg 10/01/16 02:08 Tylenol - PO Q4H PRN FEVER OR PAIN Benzocaine/Menthol 1 each 10/01/16 02:08 Cepacol Lozenge - MM Q4H PRN SORE THROAT Collagenase 1 applic 10/01/16 15:30 10/02/16 10:50 Santyl - TP 1 applic DAILY [facility] Administration Furosemide 100 mg 10/01/16 10:00 10/02/16 12:16 Lasix Injection - IVPUSH Not Given BID [facility] Heparin Sodium (Porcine) 5,000 unit 10/01/16 10:00 10/01/16 23:09 Heparin - SQ 5,000 unit BID [facility] Administration Ceftazidime 1 gm/ Dextrose 100 mls @ 200 mls/hr 10/01/16 10:00 10/02/16 10:59 IVPB Not Given DAILY [facility] Protocol Metronidazole 100 mls @ 100 mls/hr 10/01/16 10:00 10/02/16 10:49 Flagyl 500mg Premixed Ivpb - IVPB 100 mls/hr Q8H-IV [facility] Administration Vancomycin HCl 250 mls @ 250 mls/hr 10/02/16 12:45 Vancomycin (Pre-Docked) IVPB 10/02/16 13:44 ONCE ONE Protocol Insulin Aspart 1 vial 10/01/16 07:00 10/02/16 12:23 Novolog Vial Sliding Scale - SQ Not Given ACHS [facility] Protocol Insulin Detemir 14 units 10/03/16 07:00 Levemir Vial SQ AM [facility] Insulin Detemir 10 units 10/02/16 22:00 Levemir Vial SQ HS [facility] OBJECTIVE: Vital Signs Period Temp Pulse Resp BP Sys/Vogt Pulse Ox Last 24 Hr 97.8 F-100.2 F 85-105 18-22 91-154/53-78 95-95 Physical Exam General: NAD Lungs: Decreased breath sounds bilaterally Heart: RRR, S1S2 Abd: Soft, non-tender, non-distended. Normoactive bowel sounds Ext: b/l +2 edema, large skin tag R Achilles tendon Skin: large sacral wound with dressing CBCD WBC 22.5 K/mm3 (4.0-10.0) H D 10/02/16 12:40 RBC 3.55 M/mm3 (4.00-5.60) L 10/02/16 12:40 Hgb 7.9 GM/dL (11.7-16.9) L 10/02/16 12:40 Hct 26.6 % (35.4-49) L 10/02/16 12:40 MCV 75.1 fl (80-96) L 10/02/16 12:40 MCHC 29.5 g/dl (32.0-35.9) L 10/02/16 12:40 RDW 18.4 % (11.9-15.9) H 10/02/16 12:40 Plt Count 209 K/MM3 (134-434) 10/02/16 12:40 MPV 7.6 fl (7.5-11.1) 10/02/16 12:40 CMP Sodium 137 mmol/L (136-145) 10/02/16 12:40 Potassium 4.3 mmol/L (3.5-5.1) 10/02/16 12:40 Chloride 99 mmol/L (98-107) 10/02/16 12:40 Carbon Dioxide 27 mmol/L (21-32) 10/02/16 12:40 Anion Gap 11 (8-16) 10/02/16 12:40 BUN 46 mg/dL (7-18) H D 10/02/16 12:40 Creatinine 6.1 mg/dL (0.7-1.3) H D 10/02/16 12:40 Creat Clearance w eGFR 9.28 (>60) 10/02/16 12:40 Random Glucose 145 mg/dL (74-106) H 10/02/16 12:40 Calcium 7.1 mg/dL (8.5-10.1) L 10/02/16 12:40 Total Bilirubin 0.4 mg/dL (0.2-1.0) 10/02/16 12:40 AST 18 U/L (15-37) 10/02/16 12:40 ALT 10 U/L (12-78) L 10/02/16 12:40 Alkaline Phosphatase 74 U/L (45-117) 10/02/16 12:40 Total Protein 5.7 g/dl (6.4-8.2) L 10/02/16 12:40 Albumin 1.6 g/dl (3.4-5.0) L 10/02/16 12:40 CARDIAC ENZYMES Creatine Kinase 343 IU/L (39-308) H D 09/23/16 23:30 Troponin I 0.04 ng/ml (0.00-0.05) D 09/23/16 23:30 Microbiology 09/24/16 07:40 Blood - Pre-Dialysis Blood Culture - Final Mr S Aureus Beta Hem Streptococcus Group F Bacteroides Fragilis 09/24/16 07:15 Blood - Pre-Dialysis Blood Culture - Final Mr S Aureus Beta Hem Streptococcus Group F 09/24/16 01:00 Blood - Peripheral Venous Blood Culture - Final Beta Hem Streptococcus Group F Mr S Aureus 09/24/16 00:30 Blood - Peripheral Venous Blood Culture - Final Beta Hem Streptococcus Group F Mr S Aureus 09/27/16 16:30 Decubiti Gram Stain - Final 09/27/16 16:30 Decubiti Wound Culture - Preliminary Morganella Morganii Enterococcus Faecalis Mr S Aureus Pending Organism 09/27/16 17:20 Blood - Peripheral Venous Blood Culture - Preliminary NO GROWTH OBTAINED AFTER 96 HOURS, INCUBATION TO CONTINUE FOR 1 DAYS. 09/27/16 17:20 Blood - Peripheral Venous Blood Culture - Preliminary NO GROWTH OBTAINED AFTER 96 HOURS, INCUBATION TO CONTINUE FOR 1 DAYS. 09/24/16 20:45 Stool Salmonella/Shigella Culture - Final NO GROWTH OF SALMONELLA OR SHIGELLA SPECIES OBTAINED 09/24/16 20:45 Stool Campylobacter Culture - Final NO GROWTH OF CAMPYLOBACTER SPECIES OBTAINED 09/24/16 20:45 Stool Yersinia Culture - Final NO GROWTH OF YERSINIA SPECIES OBTAINED 09/24/16 20:45 Stool Vibrio Culture - Final NO GROWTH OF VIBRIO SPECIES OBTAINED 09/24/16 20:45 Stool Escherichia coli 0157 Culture - Final NO GROWTH OF E COLI 0157 OBTAINED 09/24/16 01:20 Urine - Urine Clean Catch Urine Culture - Final Citrobacter Freundii Complex Acinetobacter Baumannii/Haemol 09/24/16 20:45 Stool Clostridium difficile Antigen (JADYN) - Final 09/24/16 20:45 Stool Clostridium difficile Toxin Assay - Final Assessment: This is a 66 year old male with PMHx of ESRD- on HD (//Fri) with permacath, pending mapping for AV-Fistula, HTN, [place] (01/2016), DM, COPD, Sacral Decubital Ulcers presented with diarrhea, sp fall. He was found to be in DKA, hyperkalemia, and transferred to the ICU for septic shock d/t uti and probable sacral ulcers. Plan: 1) ID: Septic shock 2/2 polymicrobial bacteremia - Continue Flagyl - Continue Ceftazidime - Vancomycin with HD - ECHO with highly mobile mass consistent with a torn or redundant chordae. A vegetation on the mitral valve cannot be excluded - Cultures as above - Appreciate ID consult Diarrhea - C.diff negative - Stool culture negative Sacral Debuital ulcers - S/p debridement in OR 09/27 - Santyl daily - Appreciate surgery consult 2) Endocrine: DKA - Resolved - BGM ACHS - ISS ACHS - Hypoglycemia in AM - Levemir 10u sq qhs - Levemir 14u sq qam 3) Cardiology: CAD s/p TN 2015 - Hold Metoprolol 2/2 hypotension caused by sepsis HTN - BP controlled not on meds 4) : ESRD - HD today - For permacath placement tomorrow - Lasix 100mg IVPB bid - Appreciate nephrology consult 4) Heme: Anemia 2/2 chronic disease - Monitor H/H 5) F/E/N: - Monitor electrolytes - Renal, diabetic diet 6) Prophylaxis: - Heparin 5,000u sq bid 7) Dipso: - Requires continued inpatient care CODE STATUS: FULL CODE Visit type - Emergency Visit Emergency Visit: Yes ED Registration Date: 09/24/16 Care time: The patient presented to the Emergency Department on the above date and was hospitalized for further evaluation of their emergent condition. - New Patient This patient is new to me today: No - Critical Care Critical Care patient: No
[2016-10-02] MEDS ORDERED: VANCOMYCIN 1 GRAM (PRE-DOCKED) 250 ML IVPB ONE (18:00)
[2016-10-02] MEDS ORDERED: FUROSEMIDE 100 MG/10 ML INJECTABLE VIAL IVPUSH SCH (21:54)
[2016-10-02] MEDS ORDERED: INSULIN DETEMIR 100 UNITS/ML MDV SQ SCH (22:00)
[2016-10-03] MEDS: METRONIDAZOLE 500 MG PREMIXED 100 ML IVPB SCH ×3 (03:06→17:19)
[2016-10-03] MEDS: INSULIN SLIDING SCALE (NOVOLOG) 1 VIAL SQ SCH ×4 (06:54→22:08)
[2016-10-03] MEDS ORDERED: INSULIN DETEMIR 100 UNITS/ML MDV SQ SCH ×2 (07:00→22:00)
[2016-10-03 08:07] LABS: BASOPHIL 0.4 % (0-2.0); EOSINOPHIL 0.5 % (0-4.5); MCH 22.3 pg (25.7-33.7); MCHC 29.7 g/dl (32.0-35.9); MEAN CELL VOLUME 75.2 fl (80-96); MEAN PLT VOLUME 7.6 fl (7.5-11.1); NEUTROPHILS 76.3 % (42.8-82.8); PLATELET COUNT 216 K/MM3 (134-434); RDW 18.3 % (11.9-15.9); WHITE BLOOD COUNT 16.5 K/mm3 (4.0-10.0)
[2016-10-03 08:36] LABS: ANION GAP 12 (8-16); CALCIUM 7.2 mg/dL (8.5-10.1); CO2 30 mmol/L (21-32); GLUCOSE,RANDOM 106 mg/dL (74-106); MAGNESIUM 1.9 mg/dL (1.8-2.4)
[2016-10-03 08:37] LABS: CREATININE 4.5 mg/dL (0.7-1.3); PHOSPHOROUS 3.1 mg/dL (2.5-4.9)
[2016-10-03] MEDS ORDERED: LIDOCAINE HCL 1%, 10 MG/ML (20ML VIAL) ONE (09:30)
[2016-10-03] MEDS: COLLAGENASE CLOSTRIDIUM HIST. 30 GRAMS TUBE TP SCH (09:45)
[2016-10-03] MEDS: HEPARIN NA (PORCINE) 5,000 UNITS/ML 1ML VIAL SQ SCH ×2 (10:00→22:06)
[2016-10-03] MEDS ORDERED: MIDAZOLAM HCL 2 MG/2 ML SINGLE DOSE VIAL ONE ×2 (10:14)
[2016-10-03] MEDS ORDERED: PROPOFOL 20 ML ONE (10:36)
[2016-10-03] MEDS ORDERED: LIDOCAINE HCL 1%, 10 MG/ML (20ML VIAL) INF ONE (10:39)
[2016-10-03] MEDS ORDERED: LIDOCAINE HCL 1%, 10 MG/ML (20ML VIAL) IJ ONE ×2 (10:39)
[2016-10-03] MEDS ORDERED: HEPARIN NA (PORCINE) 1,000 UNITS/ML 10ML M-D VIAL SQ ONE ×2 (10:50)
--- NOTE | 2016-10-03 11:10 | OP ---
Operative Note - Note: Operative Date: 10/03/16 Pre-Operative Diagnosis: ESRD Operation: Insertion of permacath Post-Operative Diagnosis: Same as Pre-op Surgeon: Tonio Longoria Anesthesia: Fractional Estimated Blood Loss (mls): 10 Operative Report Dictated: Yes
[2016-10-03] MEDS ORDERED: ONDANSETRON 4 MG/2 ML VIAL IVPUSH PRN (11:13)
[2016-10-03] MEDS ORDERED: SODIUM CHLORIDE 1,000 ML IV SCH (11:15)
[2016-10-03] MEDS ORDERED: METRONIDAZOLE 500 MG PREMIXED 100 ML IVPB ONE (12:25)
[2016-10-03] MEDS ORDERED: BENZOCAINE/MENTH/CETYLPYRD CL 1 EACH LOZENGE MM PRN (13:10)
[2016-10-03] MEDS: FUROSEMIDE 100 MG/10 ML INJECTABLE VIAL IVPUSH SCH (14:23)
[2016-10-03] MEDS: CEFTAZIDIME PENTAHYDRATE 1 GM in DEXTROSE 5%-WATER - 100 ML IVPB SCH ×2 (15:13→15:14)
--- NOTE | 2016-10-03 15:15 | PN ---
Progress Note (short form) - Note Progress Note: SUBJECTIVE: The patient was seen and examined at the bedside, he has no complaints at this time For Permacath placement today Current Medications Generic Name Dose Route Start Last Admin Trade Name Freq PRN Reason Stop Dose Admin Acetaminophen 650 mg 10/03/16 13:10 Tylenol - PO Q4H PRN FEVER OR PAIN Benzocaine/Menthol 1 each 10/03/16 13:10 Cepacol Lozenge - MM Q4H PRN SORE THROAT Collagenase 1 applic 10/04/16 10:00 Santyl - TP DAILY AKOSUA Fentanyl 25 mcg 10/03/16 11:13 Sublimaze Injection - IVPUSH 10/06/16 11:14 [id number] PRN PAIN Furosemide 100 mg 10/03/16 14:00 10/03/16 14:23 Lasix Injection - IVPUSH Not Given BIDLASIX AKOSUA Heparin Sodium (Porcine) 5,000 unit 10/03/16 22:00 Heparin - SQ BID AKOSUA Sodium Chloride 1,000 mls @ 42 mls/hr 10/03/16 11:15 Normal Saline - IV ASDIR AKOSUA Ceftazidime 1 gm/ Dextrose 100 mls @ 200 mls/hr 10/04/16 10:00 IVPB DAILY [facility] Protocol Metronidazole 100 mls @ 100 mls/hr 10/03/16 18:00 Flagyl 500mg Premixed Ivpb - IVPB Q8H-IV AKOSUA Insulin Aspart 1 vial 10/03/16 16:30 Novolog Vial Sliding Scale - SQ ACHS AKOSUA Protocol Insulin Detemir 10 units 10/03/16 22:00 Levemir Vial SQ HS AKOSUA Insulin Detemir 14 units 10/04/16 07:00 Levemir Vial SQ AM AKOSUA Ondansetron HCl 4 mg 10/03/16 11:13 Zofran Injection IVPUSH 10/03/16 17:14 Q6H PRN NAUSEA AND/OR VOMITING OBJECTIVE: Vital Signs Period Temp Pulse Resp BP Sys/Vogt Pulse Ox Last 24 Hr 97.4 F-101.7 F 86-105 16-22 91-127/53-85 95-98 Physical Exam General: NAD Lungs: Decreased breath sounds bilaterally Heart: RRR, S1S2 Abd: Soft, non-tender, non-distended. Normoactive bowel sounds Ext: b/l +2 edema, large skin tag R Achilles tendon Skin: large sacral wound with dressing CBCD WBC 16.5 K/mm3 (4.0-10.0) H 10/03/16 07:00 RBC 3.62 M/mm3 (4.00-5.60) L 10/03/16 07:00 Hgb 8.1 GM/dL (11.7-16.9) L 10/03/16 07:00 Hct 27.2 % (35.4-49) L 10/03/16 07:00 MCV 75.2 fl (80-96) L 10/03/16 07:00 MCHC 29.7 g/dl (32.0-35.9) L 10/03/16 07:00 RDW 18.3 % (11.9-15.9) H 10/03/16 07:00 Plt Count 216 K/MM3 (134-434) 10/03/16 07:00 MPV 7.6 fl (7.5-11.1) 10/03/16 07:00 CMP Sodium 141 mmol/L (136-145) 10/03/16 07:00 Potassium 3.9 mmol/L (3.5-5.1) 10/03/16 07:00 Chloride 99 mmol/L (98-107) 10/03/16 07:00 Carbon Dioxide 30 mmol/L (21-32) 10/03/16 07:00 Anion Gap 12 (8-16) 10/03/16 07:00 BUN 33 mg/dL (7-18) H D 10/03/16 07:00 Creatinine 4.5 mg/dL (0.7-1.3) H D 10/03/16 07:00 Creat Clearance w eGFR 9.28 (>60) 10/02/16 12:40 Random Glucose 106 mg/dL (74-106) D 10/03/16 07:00 Calcium 7.2 mg/dL (8.5-10.1) L 10/03/16 07:00 Total Bilirubin 0.4 mg/dL (0.2-1.0) 10/02/16 12:40 AST 18 U/L (15-37) 10/02/16 12:40 ALT 10 U/L (12-78) L 10/02/16 12:40 Alkaline Phosphatase 74 U/L (45-117) 10/02/16 12:40 Total Protein 5.7 g/dl (6.4-8.2) L 10/02/16 12:40 Albumin 1.6 g/dl (3.4-5.0) L 10/02/16 12:40 CARDIAC ENZYMES Creatine Kinase 343 IU/L (39-308) H D 09/23/16 23:30 Troponin I 0.04 ng/ml (0.00-0.05) D 09/23/16 23:30 Microbiology 09/24/16 07:40 Blood - Pre-Dialysis Blood Culture - Final S Aureus Beta Hem Streptococcus Group F Bacteroides Fragilis 09/24/16 07:15 Blood - Pre-Dialysis Blood Culture - Final Mr S Aureus Beta Hem Streptococcus Group F 09/24/16 01:00 Blood - Peripheral Venous Blood Culture - Final Beta Hem Streptococcus Group F S Aureus 09/24/16 00:30 Blood - Peripheral Venous Blood Culture - Final Beta Hem Streptococcus Group F S Aureus 09/27/16 16:30 Decubiti Gram Stain - Final 09/27/16 16:30 Decubiti Wound Culture - Preliminary Morganella Morganii Enterococcus Faecalis S Aureus Pending Organism 09/27/16 17:20 Blood - Peripheral Venous Blood Culture - Preliminary NO GROWTH OBTAINED AFTER 96 HOURS, INCUBATION TO CONTINUE FOR 1 DAYS. 09/27/16 17:20 Blood - Peripheral Venous Blood Culture - Preliminary NO GROWTH OBTAINED AFTER 96 HOURS, INCUBATION TO CONTINUE FOR 1 DAYS. 09/24/16 20:45 Stool Salmonella/Shigella Culture - Final NO GROWTH OF SALMONELLA OR SHIGELLA SPECIES OBTAINED 09/24/16 20:45 Stool Campylobacter Culture - Final NO GROWTH OF CAMPYLOBACTER SPECIES OBTAINED 09/24/16 20:45 Stool Yersinia Culture - Final NO GROWTH OF YERSINIA SPECIES OBTAINED 09/24/16 20:45 Stool Vibrio Culture - Final NO GROWTH OF VIBRIO SPECIES OBTAINED 09/24/16 20:45 Stool Escherichia coli 0157 Culture - Final NO GROWTH OF E COLI 0157 OBTAINED 09/24/16 01:20 Urine - Urine Clean Catch Urine Culture - Final Citrobacter Freundii Complex Acinetobacter Baumannii/Haemol 09/24/16 20:45 Stool Clostridium difficile Antigen (JADYN) - Final 09/24/16 20:45 Stool Clostridium difficile Toxin Assay - Final Assessment: This is a 66 year old male with PMHx of ESRD- on HD () with permacath, pending mapping for AV-Fistula, HTN, [place] (01/2016), DM, COPD, Sacral Decubital Ulcers presented with diarrhea, sp fall. He was found to be in DKA, hyperkalemia, and transferred to the ICU for septic shock d/t uti and probable sacral ulcers. Plan: 1) ID: Septic shock 2/2 polymicrobial bacteremia - Continue Flagyl - Continue Ceftazidime - Vancomycin with HD - ECHO with highly mobile mass consistent with a torn or redundant chordae. A vegetation on the mitral valve cannot be excluded - Cultures as above - Appreciate ID consult Diarrhea - C.diff negative - Stool culture negative Sacral Debuital ulcers - S/p debridement in OR 09/27 - Santyl daily - Appreciate surgery consult 2) Endocrine: DKA - Resolved - BGM ACHS - ISS ACHS - Hypoglycemia in AM - Levemir 10u sq qhs - Levemir 14u sq qam 3) Cardiology: CAD s/p [place] 2015 - Hold Metoprolol 2/2 hypotension caused by sepsis HTN - BP controlled not on meds 4) : ESRD - Had permacath placed today - Tolerated HD yesterday - Lasix 100mg IVPB bid - Appreciate nephrology consult 4) Heme: Anemia 2/2 chronic disease - Monitor H/H 5) F/E/N: - Monitor electrolytes - Renal, diabetic diet 6) Prophylaxis: - Heparin 5,000u sq bid 7) Dipso: - Requires continued inpatient care CODE STATUS: FULL CODE Visit type - Emergency Visit Emergency Visit: Yes ED Registration Date: 09/24/16 Care time: The patient presented to the Emergency Department on the above date and was hospitalized for further evaluation of their emergent condition. - New Patient This patient is new to me today: No - Critical Care Critical Care patient: No
--- NOTE | 2016-10-03 15:34 | PN ---
Progress Note (short form) - Note Progress Note: Renal Follow up for ESRD on HD Pt seen and examined in the recovery room s/p permacath placement pt wants to eat denies any pain or sob Vital Signs Temperature 97.4 F L 10/03/16 13:45 Pulse Rate 100 H 10/03/16 13:45 Respiratory Rate 16 10/03/16 13:45 Blood Pressure 127/59 10/03/16 13:45 O2 Sat by Pulse Oximetry (%) 98 10/03/16 12:10 Intake & Output 09/30/16 10/01/16 10/02/16 10/03/16 23:59 23:59 23:59 23:59 Intake Total 1150 1655 850 650 Output Total 10 Balance 1150 1655 850 640 Weight 196 lb 3 oz 186 lb 8 oz Gen: NAD on NC, awake and alert CVS: RRR, NO M/R Lungs: dec BS at lung bases, b/l air entry Ext: Trace edema in LE Access: RIght IJ permacath CBC, BMP 10/03/16 07:00 10/03/16 07:00 Current Medications Acetaminophen (Tylenol -) 650 mg PO Q4H PRN PRN Reason: FEVER OR PAIN Benzocaine/Menthol (Cepacol Lozenge -) 1 each MM Q4H PRN PRN Reason: SORE THROAT Collagenase (Santyl -) 1 applic TP DAILY [facility]OS[facility] Fentanyl (Sublimaze Injection -) 25 mcg IVPUSH [id number] PRN PRN Reason: PAIN Stop: 10/06/16 11:14 Furosemide (Lasix Injection -) 100 mg IVPUSH BIDLASIX AKOSUA Last Admin: 10/03/16 14:23 Dose: Not Given Heparin Sodium (Porcine) (Heparin -) 5,000 unit SQ BID AKOSUA Ceftazidime 1 gm/ Dextrose 100 mls @ 200 mls/hr IVPB DAILY [facility] PRN Reason: Protocol Last Admin: 10/03/16 15:13 Dose: 200 mls/hr Metronidazole (Flagyl 500mg Premixed Ivpb -) 100 mls @ 100 mls/hr IVPB Q8H-IV AKOSUA Insulin Aspart (Novolog Vial Sliding Scale -) 1 vial SQ ACHS AKOSUA PRN Reason: Protocol Insulin Detemir (Levemir Vial) 10 units SQ HS AKOSUA Insulin Detemir (Levemir Vial) 14 units SQ AM AKOSUA Ondansetron HCl (Zofran Injection) 4 mg IVPUSH Q6H PRN PRN Reason: NAUSEA AND/OR VOMITING Stop: 10/03/16 17:14 A/P 66 year old gentleman with PMhx of ESRD on HD, CAD, CHF, IDDM, Sacral Decubitis who presented with weakness and fall and found to have SIRS/Sepsis with DKA and hyperkalemia and metabolic acidosis. #SIRS/Sepsis/Sacral Decubitis Blood cultures from 09/27 and 10/01 w/o growth Continue Ceftaz/Vanco/Flagyl pt febrile last night ID following #ESRD on HD s/p dialysis yesterday via femoral shiley s/p permacath placement next dialysis is planned for tomorrow #Micocytoic Anemia Maintain WILY with HD Dominick Vanegas DO
--- NOTE | 2016-10-03 20:08 | PN ---
Progress Note, Physician History of Present Illness: No complaint More awake and alert S/P permacath insertion - Current Medication List Current Medications: Active Medications Acetaminophen (Tylenol -) 650 mg PO Q4H PRN PRN Reason: FEVER OR PAIN Benzocaine/Menthol (Cepacol Lozenge -) 1 each MM Q4H PRN PRN Reason: SORE THROAT Collagenase (Santyl -) 1 applic TP DAILY [facility]OSUA Epoetin Neftaly (Procrit -) 20,000 unit IVPUSH ONCE ONE Stop: 10/04/16 08:01 Fentanyl (Sublimaze Injection -) 25 mcg IVPUSH [id number] PRN PRN Reason: PAIN Stop: 10/06/16 11:14 Furosemide (Lasix Injection -) 100 mg IVPUSH BIDLASIX AKOSUA Last Admin: 10/03/16 14:23 Dose: Not Given Heparin Sodium (Porcine) (Heparin -) 5,000 unit SQ BID AKOSUA Ceftazidime 1 gm/ Dextrose 100 mls @ 200 mls/hr IVPB DAILY [facility]OSUA PRN Reason: Protocol Last Admin: 10/03/16 15:13 Dose: 200 mls/hr Metronidazole (Flagyl 500mg Premixed Ivpb -) 100 mls @ 100 mls/hr IVPB Q8H-IV AKOSUA Last Admin: 10/03/16 17:19 Dose: 100 mls/hr Vancomycin HCl 1,000 mg/ (Dextrose) 250 mls @ 250 mls/hr IVPB ONCE ONE PRN Reason: Protocol Stop: 10/04/16 09:59 Insulin Aspart (Novolog Vial Sliding Scale -) 1 vial SQ ACHS AKOSUA PRN Reason: Protocol Last Admin: 10/03/16 16:26 Dose: 6 units Insulin Detemir (Levemir Vial) 10 units SQ HS AKOSUA Insulin Detemir (Levemir Vial) 14 units SQ AM AKOSUA - Objective Vital Signs: Vital Signs Temperature 97.4 F L 10/03/16 13:45 Pulse Rate 100 H 10/03/16 13:45 Respiratory Rate 16 10/03/16 13:45 Blood Pressure 127/59 10/03/16 13:45 O2 Sat by Pulse Oximetry (%) 98 10/03/16 12:10 Constitutional: Yes: No Distress Eyes: Yes: Conjunctiva Clear Cardiovascular: Yes: Regular Rate and Rhythm, S1, S2 Respiratory: Yes: CTA Bilaterally Gastrointestinal: Yes: Normal Bowel Sounds, Soft Edema: Yes Wound/Incision: Yes: Other (+ sacral decubitus) Labs: CBC, BMP 10/03/16 07:00 10/03/16 07:00 INR, PTT INR 1.48 (0.82-1.09) H 09/26/16 05:45 Assessment/Plan Sepsis/ septic shock- improved Fever ? decubitus source Polymicrobial bacteremia/ sepsis (MRSA, grpF strep, Bacteroides) S/P debridement of decubitus UTI/ Sepsis secondary to UTI Possible pneumonia ESRD Repeat BC prelim no growth Surgical follow up- may need further debridement of decubitus Continue Vancomycin/ Ceftazidime/ Flagyl
[2016-10-04] MEDS: METRONIDAZOLE 500 MG PREMIXED 100 ML IVPB SCH ×3 (02:04→13:00)
[2016-10-04] MEDS ORDERED: FUROSEMIDE 40 MG/4 ML INJECTABLE VIAL ONE (06:03)
[2016-10-04] MEDS: FUROSEMIDE 100 MG/10 ML INJECTABLE VIAL IVPUSH SCH ×2 (06:14→14:53)
[2016-10-04] MEDS: INSULIN SLIDING SCALE (NOVOLOG) 1 VIAL SQ SCH ×4 (06:15→21:32)
[2016-10-04] MEDS: INSULIN DETEMIR 100 UNITS/ML MDV SQ SCH ×2 (06:15→21:33)
[2016-10-04 07:56] LABS: MCH 22.2 pg (25.7-33.7); MCHC 29.6 g/dl (32.0-35.9); MEAN CELL VOLUME 75.1 fl (80-96); MEAN PLT VOLUME 7.5 fl (7.5-11.1); PLATELET COUNT 210 K/MM3 (134-434); RDW 19.2 % (11.9-15.9); WHITE BLOOD COUNT 17.4 K/mm3 (4.0-10.0)
[2016-10-04 08:06] LABS: ALBUMIN 1.5 g/dl (3.4-5.0); ANION GAP 12 (8-16); CALCIUM 7.1 mg/dL (8.5-10.1); CO2 26 mmol/L (21-32); GLUCOSE,RANDOM 97 mg/dL (74-106); SGOT/AST 25 U/L (15-37)
[2016-10-04 08:08] LABS: ALK PHOS 71 U/L (45-117); BILIRUBIN,TOTAL 0.3 mg/dL (0.2-1.0); CREATININE 5.6 mg/dL (0.7-1.3); SGPT/ALT 9 U/L (12-78)
[2016-10-04] MEDS ORDERED: EPOETIN ALFA 20,000 UNIT/1 ML VIAL IVPUSH ONE (09:00)
[2016-10-04] MEDS ORDERED: VANCOMYCIN 1,000 MG in DEXTROSE 5%-WATER - 250 ML IVPB ONE (09:00)
[2016-10-04 09:30] LABS: HYPOCHROMIA 1+
[2016-10-04 09:32] LABS: ANISOCYTOSIS 1+
[2016-10-04 09:33] LABS: POLYCHROMASIA 1+
--- NOTE | 2016-10-04 09:46 | PN ---
Progress Note (short form) - Note Progress Note: POD #1 - s/p permacath placement under MAC. Pt. currently getting dialysis. Awake/alert, tolerating well. No apparent anesthetic complications noted. Continue current care.
[2016-10-04] MEDS: CEFTAZIDIME PENTAHYDRATE 1 GM in DEXTROSE 5%-WATER - 100 ML IVPB SCH ×2 (10:15→12:59)
[2016-10-04] MEDS: HEPARIN NA (PORCINE) 5,000 UNITS/ML 1ML VIAL SQ SCH ×2 (10:15→21:33)
[2016-10-04] MEDS ORDERED: PT OWN MED DRAWER 7, Y5N ONE (11:57)
[2016-10-04] MEDS: COLLAGENASE CLOSTRIDIUM HIST. 30 GRAMS TUBE TP SCH (12:54)
--- NOTE | 2016-10-04 14:15 | PATH ---
Surgical Pathology Report Patient Name: RUTH ORANTES Med. Rec. #: [id number] /Age/Gender: 1950 (Age: 66) / M Account: [id number] Location: [address] [place] [address] Taken: 10/03/2016 Received: 10/03/2016 Reported: 10/04/2016 Physicians: Tonio Longoria Specimen(s) Received JIMMY CATHERER FROM LEFT ARM Clinical History Renal failure/anemia Final Diagnosis SHILEY CATHETER, LEFT GROIN, REMOVAL: CATHETER (GROSS EXAM). Electronically Signed Alexander Ramirez M.D. Gross Description Received fresh labeled "Shiley catheter from left groin" is a 34 cm in length double lumen catheter. No soft tissue is present. No sections are submitted, gross only. /10/03/201610/03/2016
--- NOTE | 2016-10-04 14:17 | PN ---
Progress Note, Physician Chief Complaint: ID Polymicrobial bacteremia from 09/24 MRSA Group F strep Bacteroides - Current Medication List Current Medications: Active Medications Acetaminophen (Tylenol -) 650 mg PO Q4H PRN PRN Reason: FEVER OR PAIN Benzocaine/Menthol (Cepacol Lozenge -) 1 each MM Q4H PRN PRN Reason: SORE THROAT Collagenase (Santyl -) 1 applic TP DAILY [facility] Last Admin: 10/04/16 12:54 Dose: 1 applic Fentanyl (Sublimaze Injection -) 25 mcg IVPUSH [id number] PRN PRN Reason: PAIN Stop: 10/06/16 11:14 Furosemide (Lasix Injection -) 100 mg IVPUSH BIDLASIX [facility] Last Admin: 10/04/16 06:14 Dose: 100 mg Heparin Sodium (Porcine) (Heparin -) 5,000 unit SQ BID [facility] Last Admin: 10/04/16 10:15 Dose: Not Given Ceftazidime 1 gm/ Dextrose 100 mls @ 200 mls/hr IVPB DAILY [facility] PRN Reason: Protocol Last Admin: 10/04/16 12:59 Dose: 200 mls/hr Metronidazole (Flagyl 500mg Premixed Ivpb -) 100 mls @ 100 mls/hr IVPB Q8H-IV [facility] Last Admin: 10/04/16 13:00 Dose: 100 mls/hr Insulin Aspart (Novolog Vial Sliding Scale -) 1 vial SQ ACHS [facility] PRN Reason: Protocol Last Admin: 10/04/16 12:59 Dose: 2 units Insulin Detemir (Levemir Vial) 10 units SQ HS [facility] Last Admin: 10/03/16 22:09 Dose: 10 units Insulin Detemir (Levemir Vial) 14 units SQ AM [facility] Last Admin: 10/04/16 06:15 Dose: 14 units - Objective Vital Signs: Vital Signs Temperature 98.4 F 10/04/16 07:55 Pulse Rate 88 10/04/16 11:49 Respiratory Rate 18 10/04/16 11:49 Blood Pressure 120/72 10/04/16 11:49 O2 Sat by Pulse Oximetry (%) 94 L 10/03/16 21:00 Constitutional: Yes: No Distress Neck: Yes: WNL, Supple Cardiovascular: Yes: WNL, Regular Rate and Rhythm, S1, S2 Respiratory: Yes: WNL, Regular, CTA Bilaterally Gastrointestinal: Yes: WNL, Normal Bowel Sounds, Soft. No: Tenderness Integumentary: Yes: Other (2 decubitus ulcer) Labs: CBC, BMP 10/04/16 06:25 10/04/16 06:25 INR, PTT INR 1.48 (0.82-1.09) H 09/26/16 05:45 Problem List - Problems (1) Acute on chronic renal failure Code(s): N17.9 - ACUTE KIDNEY FAILURE, UNSPECIFIED N18.9 - CHRONIC KIDNEY DISEASE, UNSPECIFIED (2) Polymicrobial bacterial infection Code(s): A49.9 - BACTERIAL INFECTION, UNSPECIFIED Assessment/Plan Microbiology 09/27/16 16:30 Decubiti Gram Stain - Final 09/27/16 16:30 Decubiti Wound Culture - Final Morganella Morganii Enterococcus Faecalis Mr S Aureus Vr Ec Faecium 09/24/16 07:40 Blood - Pre-Dialysis Blood Culture - Final Mr S Aureus Beta Hem Streptococcus Group F Bacteroides Fragilis 09/24/16 07:15 Blood - Pre-Dialysis Blood Culture - Final Mr S Aureus Beta Hem Streptococcus Group F 10/01/16 19:55 Blood - Peripheral Venous Blood Culture - Preliminary NO GROWTH OBTAINED AFTER 48 HOURS, INCUBATION TO CONTINUE FOR 3 DAYS. 10/01/16 19:50 Blood - Peripheral Venous Blood Culture - Preliminary NO GROWTH OBTAINED AFTER 48 HOURS, INCUBATION TO CONTINUE FOR 3 DAYS. Laboratory Tests 10/04/16 10/04/16 06:25 06:25 WBC 17.4 H Hgb 7.8 L Hct 26.5 L Plt Count 210 BUN 46 H D Creatinine 5.6 H D Creat Clearance w eGFR 10.24 Assessment Previously infected decubitus ulcers ESRD new permacath Polymcirobial bacteremia from September 24 Leukocytosis Plan Vancomycin with dialysis alone 2 more weeks Stop metronidazole Stop Ceftazidime ESR CRP Franco FELIZ
[2016-10-04] MEDS ORDERED: VANCOMYCIN 1 GRAM (PRE-DOCKED) 250 ML IVPB ONE (14:45)
--- NOTE | 2016-10-04 15:52 | PN ---
Progress Note (short form) - Note Progress Note: Renal Follow up for ESRD on HD Pt seen and examined at the bedside is awake and alert s/p dialysis this AM no sob, chest pain Vital Signs Temperature 98.4 F 10/04/16 07:55 Pulse Rate 88 10/04/16 11:49 Respiratory Rate 18 10/04/16 11:49 Blood Pressure 120/72 10/04/16 11:49 O2 Sat by Pulse Oximetry (%) 94 L 10/03/16 21:00 Intake & Output 10/01/16 10/02/16 10/03/16 10/04/16 23:59 23:59 23:59 23:59 Intake Total 1655 850 950 100 Output Total 10 Balance 1655 850 940 100 Weight 186 lb 8 oz Gen: NAD on NC, awake and alert CVS: RRR, NO M/R Lungs: dec BS at lung bases, b/l air entry Ext: Trace edema in LE Access: RIght IJ permacath CBC, BMP 10/04/16 06:25 10/04/16 06:25 Current Medications Acetaminophen (Tylenol -) 650 mg PO Q4H PRN PRN Reason: FEVER OR PAIN Benzocaine/Menthol (Cepacol Lozenge -) 1 each MM Q4H PRN PRN Reason: SORE THROAT Collagenase (Santyl -) 1 applic TP DAILY [facility] Last Admin: 10/04/16 12:54 Dose: 1 applic Fentanyl (Sublimaze Injection -) 25 mcg IVPUSH [id number] PRN PRN Reason: PAIN Stop: 10/06/16 11:14 Furosemide (Lasix Injection -) 100 mg IVPUSH BIDLASIX [facility] Last Admin: 10/04/16 14:53 Dose: 100 mg Heparin Sodium (Porcine) (Heparin -) 5,000 unit SQ BID [facility] Last Admin: 10/04/16 10:15 Dose: Not Given Insulin Aspart (Novolog Vial Sliding Scale -) 1 vial SQ ACHS [facility] PRN Reason: Protocol Last Admin: 10/04/16 12:59 Dose: 2 units Insulin Detemir (Levemir Vial) 10 units SQ HS [facility] Last Admin: 10/03/16 22:09 Dose: 10 units Insulin Detemir (Levemir Vial) 14 units SQ AM [facility] Last Admin: 10/04/16 06:15 Dose: 14 units A/P 66 year old gentleman with PMhx of ESRD on HD, CAD, CHF, IDDM, Sacral Decubitis who presented with weakness and fall and found to have SIRS/Sepsis with DKA and hyperkalemia and metabolic acidosis. #SIRS/Sepsis/Sacral Decubitis Blood cultures from 09/27 and 10/01 w/o growth will continue Vanco with HD for 2 more weeks per ID recs #ESRD on HD tolerated HD via tunneled HD catheter today #Micocytoic Anemia Maintain WILY with HD Dominick Vanegas DO
--- NOTE | 2016-10-04 16:25 | PN ---
Progress Note (short form) - Note Progress Note: SUBJECTIVE: The patient was seen and examined at the bedside, he has no complaints at this time Tolerated HD today Current Medications Generic Name Dose Route Start Last Admin Trade Name Silver PRN Reason Stop Dose Admin Acetaminophen 650 mg 10/03/16 13:10 Tylenol - PO Q4H PRN FEVER OR PAIN Benzocaine/Menthol 1 each 10/03/16 13:10 Cepacol Lozenge - MM Q4H PRN SORE THROAT Collagenase 1 applic 10/04/16 10:00 10/04/16 12:54 Santyl - TP 1 applic DAILY AKOSUA Administration Fentanyl 25 mcg 10/03/16 11:13 Sublimaze Injection - IVPUSH 10/06/16 11:14 [id number] PRN PAIN Furosemide 100 mg 10/03/16 14:00 10/04/16 14:53 Lasix Injection - IVPUSH 100 mg BIDLASIX AKOSUA Administration Heparin Sodium (Porcine) 5,000 unit 10/03/16 22:00 10/04/16 10:15 Heparin - SQ Not Given BID [facility] Insulin Aspart 1 vial 10/03/16 16:30 10/04/16 12:59 Novolog Vial Sliding Scale - SQ 2 units ACHS AKOSUA Administration Protocol Insulin Detemir 10 units 10/03/16 22:00 10/03/16 22:09 Levemir Vial SQ 10 units HS AKOSUA Administration Insulin Detemir 14 units 10/04/16 07:00 10/04/16 06:15 Levemir Vial SQ 14 units AM AKOSUA Administration OBJECTIVE: Vital Signs Period Temp Pulse Resp BP Sys/Vogt Pulse Ox Last 24 Hr 98.0 F-100.6 F 59-118 16-20 116-158/54-89 94 Physical Exam General: NAD Lungs: Decreased breath sounds bilaterally Heart: RRR, S1S2 Abd: Soft, non-tender, non-distended. Normoactive bowel sounds Ext: b/l +2 edema, large skin tag R Achilles tendon Skin: large sacral wound with dressing CBCD WBC 17.4 K/mm3 (4.0-10.0) H 10/04/16 06:25 RBC 3.53 M/mm3 (4.00-5.60) L 10/04/16 06:25 Hgb 7.8 GM/dL (11.7-16.9) L 10/04/16 06:25 Hct 26.5 % (35.4-49) L 10/04/16 06:25 MCV 75.1 fl (80-96) L 10/04/16 06:25 MCHC 29.6 g/dl (32.0-35.9) L 10/04/16 06:25 RDW 19.2 % (11.9-15.9) H 10/04/16 06:25 Plt Count 210 K/MM3 (134-434) 10/04/16 06:25 MPV 7.5 fl (7.5-11.1) 10/04/16 06:25 CMP Sodium 137 mmol/L (136-145) 10/04/16 06:25 Potassium 4.1 mmol/L (3.5-5.1) 10/04/16 06:25 Chloride 99 mmol/L (98-107) 10/04/16 06:25 Carbon Dioxide 26 mmol/L (21-32) 10/04/16 06:25 Anion Gap 12 (8-16) 10/04/16 06:25 BUN 46 mg/dL (7-18) H D 10/04/16 06:25 Creatinine 5.6 mg/dL (0.7-1.3) H D 10/04/16 06:25 Creat Clearance w eGFR 10.24 (>60) 10/04/16 06:25 Random Glucose 97 mg/dL (74-106) 10/04/16 06:25 Calcium 7.1 mg/dL (8.5-10.1) L 10/04/16 06:25 Total Bilirubin 0.3 mg/dL (0.2-1.0) D 10/04/16 06:25 AST 25 U/L (15-37) D 10/04/16 06:25 ALT 9 U/L (12-78) L 10/04/16 06:25 Alkaline Phosphatase 71 U/L (45-117) 10/04/16 06:25 Total Protein 6.0 g/dl (6.4-8.2) L 10/04/16 06:25 Albumin 1.5 g/dl (3.4-5.0) L 10/04/16 06:25 CARDIAC ENZYMES Creatine Kinase 343 IU/L (39-308) H D 09/23/16 23:30 Troponin I 0.04 ng/ml (0.00-0.05) D 09/23/16 23:30 Microbiology 09/27/16 16:30 Decubiti Gram Stain - Final 09/27/16 16:30 Decubiti Wound Culture - Final Morganella Morganii Enterococcus Faecalis Mr S Aureus Vr Ec Faecium 10/01/16 19:55 Blood - Peripheral Venous Blood Culture - Preliminary NO GROWTH OBTAINED AFTER 48 HOURS, INCUBATION TO CONTINUE FOR 3 DAYS. 10/01/16 19:50 Blood - Peripheral Venous Blood Culture - Preliminary NO GROWTH OBTAINED AFTER 48 HOURS, INCUBATION TO CONTINUE FOR 3 DAYS. 09/27/16 17:20 Blood - Peripheral Venous Blood Culture - Final NO GROWTH AFTER 5 DAYS INCUBATION 09/27/16 17:20 Blood - Peripheral Venous Blood Culture - Final NO GROWTH AFTER 5 DAYS INCUBATION 09/24/16 07:40 Blood - Pre-Dialysis Blood Culture - Final S Aureus Beta Hem Streptococcus Group F Bacteroides Fragilis 09/24/16 07:15 Blood - Pre-Dialysis Blood Culture - Final S Aureus Beta Hem Streptococcus Group F 09/24/16 01:00 Blood - Peripheral Venous Blood Culture - Final Beta Hem Streptococcus Group F Mr S Aureus 09/24/16 00:30 Blood - Peripheral Venous Blood Culture - Final Beta Hem Streptococcus Group F Mr S Aureus 09/24/16 20:45 Stool Salmonella/Shigella Culture - Final NO GROWTH OF SALMONELLA OR SHIGELLA SPECIES OBTAINED 09/24/16 20:45 Stool Campylobacter Culture - Final NO GROWTH OF CAMPYLOBACTER SPECIES OBTAINED 09/24/16 20:45 Stool Yersinia Culture - Final NO GROWTH OF YERSINIA SPECIES OBTAINED 09/24/16 20:45 Stool Vibrio Culture - Final NO GROWTH OF VIBRIO SPECIES OBTAINED 09/24/16 20:45 Stool Escherichia coli 0157 Culture - Final NO GROWTH OF E COLI 0157 OBTAINED 09/24/16 01:20 Urine - Urine Clean Catch Urine Culture - Final Citrobacter Freundii Complex Acinetobacter Baumannii/Haemol 09/24/16 20:45 Stool Clostridium difficile Antigen (JADYN) - Final 09/24/16 20:45 Stool Clostridium difficile Toxin Assay - Final Assessment: This is a 66 year old male with PMHx of ESRD- on HD (/) with permacath, pending mapping for AV-Fistula, HTN, [place] (01/2016), DM, COPD, Sacral Decubital Ulcers presented with diarrhea, sp fall. He was found to be in DKA, hyperkalemia, and transferred to the ICU for septic shock d/t uti and probable sacral ulcers. Plan: 1) ID: Septic shock 2/2 polymicrobial bacteremia - Discontinue Flagyl and Ceftazidime - Vancomycin with HD for 2 more weeks - ECHO with highly mobile mass consistent with a torn or redundant chordae. A vegetation on the mitral valve cannot be excluded - Cultures as above - Elevated CRP - F/u ESR - Appreciate ID consult Diarrhea - C.diff negative - Stool culture negative Sacral Debuital ulcers - S/p debridement in OR 09/27 - Santyl daily - Appreciate surgery consult 2) Endocrine: DKA - Resolved - BGM ACHS - ISS ACHS - Levemir 10u sq qhs - Levemir 16u sq qam 3) Cardiology: CAD s/p [place] 2015 - Hold Metoprolol 2/2 hypotension caused by sepsis HTN - BP controlled not on meds 4) : ESRD - Tolerated HD today - Lasix 100mg IVPB bid - Appreciate nephrology consult 4) Heme: Anemia 2/2 chronic disease - Monitor H/H 5) F/E/N: - Monitor electrolytes - Renal, diabetic diet 6) Prophylaxis: - Heparin 5,000u sq bid 7) Dipso: - Requires continued inpatient care CODE STATUS: FULL CODE Visit type - Emergency Visit Emergency Visit: Yes ED Registration Date: 09/24/16 Care time: The patient presented to the Emergency Department on the above date and was hospitalized for further evaluation of their emergent condition. - New Patient This patient is new to me today: No - Critical Care Critical Care patient: No
[2016-10-05] MEDS ORDERED: PT OWN MED DRAWER 7, Y5N ONE ×2 (01:10→07:22)
[2016-10-05] MEDS: FUROSEMIDE 100 MG/10 ML INJECTABLE VIAL IVPUSH SCH ×2 (06:42→13:44)
[2016-10-05] MEDS: INSULIN SLIDING SCALE (NOVOLOG) 1 VIAL SQ SCH ×4 (06:58→22:00)
[2016-10-05 07:25] LABS: BASOPHIL 0.8 % (0-2.0); EOSINOPHIL 0.4 % (0-4.5); MCH 22.2 pg (25.7-33.7); MCHC 29.3 g/dl (32.0-35.9); MEAN CELL VOLUME 75.6 fl (80-96); MEAN PLT VOLUME 7.6 fl (7.5-11.1); NEUTROPHILS 78.6 % (42.8-82.8); PLATELET COUNT 204 K/MM3 (134-434); RDW 19.2 % (11.9-15.9); WHITE BLOOD COUNT 14.2 K/mm3 (4.0-10.0)
[2016-10-05] MEDS ORDERED: INSULIN DETEMIR 100 UNITS/ML MDV SQ ONE (08:04)
[2016-10-05] MEDS: INSULIN DETEMIR 100 UNITS/ML MDV SQ SCH ×2 (08:06→22:00)
[2016-10-05 08:20] LABS: ANION GAP 10 (8-16); CALCIUM 7.2 mg/dL (8.5-10.1); CO2 30 mmol/L (21-32); CREATININE 4.5 mg/dL (0.7-1.3); GLUCOSE,RANDOM 71 mg/dL (74-106)
--- NOTE | 2016-10-05 08:53 | PN ---
Progress Note (short form) - Note Progress Note: Renal Follow up for ESRD on HD Pt seen and examined at the bedside awake and alert no acute complaints s/p dialysis yesterday Vital Signs Temperature 97.7 F 10/05/16 06:57 Pulse Rate 81 10/05/16 06:57 Respiratory Rate 20 10/05/16 06:57 Blood Pressure 118/79 10/05/16 06:57 O2 Sat by Pulse Oximetry (%) 92 L 10/04/16 21:00 Intake & Output 10/02/16 10/03/16 10/04/16 10/05/16 23:59 23:59 23:59 23:59 Intake Total 850 950 930 360 Output Total 10 Balance 850 940 930 360 Weight 186 lb 8 oz Gen: NAD on NC, awake and alert CVS: RRR, NO M/R Lungs: dec BS at lung bases, b/l air entry Ext: Trace edema in LE Access: RIght IJ permacath CBC, BMP 10/05/16 06:00 10/05/16 06:00 Laboratory Tests 10/05/16 06:00 Calcium 7.2 L Current Medications Acetaminophen (Tylenol -) 650 mg PO Q4H PRN PRN Reason: FEVER OR PAIN Benzocaine/Menthol (Cepacol Lozenge -) 1 each MM Q4H PRN PRN Reason: SORE THROAT Collagenase (Santyl -) 1 applic TP DAILY [facility] Last Admin: 10/04/16 12:54 Dose: 1 applic Fentanyl (Sublimaze Injection -) 25 mcg IVPUSH [id number] PRN PRN Reason: PAIN Stop: 10/06/16 11:14 Furosemide (Lasix Injection -) 100 mg IVPUSH BIDLASIX [facility] Last Admin: 10/05/16 06:42 Dose: 100 mg Heparin Sodium (Porcine) (Heparin -) 5,000 unit SQ BID [facility] Last Admin: 10/04/16 21:33 Dose: 5,000 unit Insulin Aspart (Novolog Vial Sliding Scale -) 1 vial SQ ACHS [facility] PRN Reason: Protocol Last Admin: 10/05/16 06:58 Dose: Not Given Insulin Detemir (Levemir Vial) 14 units SQ AM [facility] Last Admin: 10/05/16 08:06 Dose: 14 units Insulin Detemir (Levemir Vial) 16 units SQ HS [facility] Last Admin: 10/04/16 21:33 Dose: 16 unit A/P 66 year old gentleman with PMhx of ESRD on HD, CAD, CHF, IDDM, Sacral Decubitis who presented with weakness and fall and found to have SIRS/Sepsis with DKA and hyperkalemia and metabolic acidosis. #SIRS/Sepsis/Sacral Decubitis Blood cultures from 09/27 and 10/01 w/o growth will continue Vanco with HD for 2 more weeks per ID recs no fevers in last 24 hours #ESRD on HD no acute indication for dialysis pt is off his regular TTS schedule however no anticipated discharge this week so will transition to regular HD schule next week #Micocytoic Anemia Maintain WILY with HD Pt may need SNF placement on discharge, complete PT assessment pending Dominick Vanegas DO
[2016-10-05] MEDS: COLLAGENASE CLOSTRIDIUM HIST. 30 GRAMS TUBE TP SCH (10:09)
[2016-10-05] MEDS: HEPARIN NA (PORCINE) 5,000 UNITS/ML 1ML VIAL SQ SCH ×2 (10:09→21:57)
--- NOTE | 2016-10-05 11:48 | PN ---
Progress Note (short form) - Note Progress Note: Resting in NAD. NO acute evenst overnight. No CP or SOB. Intake & Output 10/02/16 10/03/16 10/04/16 10/05/16 23:59 23:59 23:59 23:59 Intake Total 850 950 930 360 Output Total 10 Balance 850 940 930 360 Weight 186 lb 8 oz Last Vital Signs Temp Pulse Resp BP Pulse Ox 97.7 F 81 20 118/79 92 L 10/05/16 06:57 10/05/16 06:57 10/05/16 06:57 10/05/16 06:57 10/04/16 21:00 Active Medications Acetaminophen (Tylenol -) 650 mg PO Q4H PRN PRN Reason: FEVER OR PAIN Benzocaine/Menthol (Cepacol Lozenge -) 1 each MM Q4H PRN PRN Reason: SORE THROAT Collagenase (Santyl -) 1 applic TP DAILY [facility] Last Admin: 10/05/16 10:09 Dose: 1 applic Fentanyl (Sublimaze Injection -) 25 mcg IVPUSH [id number] PRN PRN Reason: PAIN Stop: 10/06/16 11:14 Furosemide (Lasix Injection -) 100 mg IVPUSH BIDLASIX [facility] Last Admin: 10/05/16 06:42 Dose: 100 mg Heparin Sodium (Porcine) (Heparin -) 5,000 unit SQ BID [facility] Last Admin: 10/05/16 10:09 Dose: 5,000 unit Insulin Aspart (Novolog Vial Sliding Scale -) 1 vial SQ ACHS [facility] PRN Reason: Protocol Last Admin: 10/05/16 06:58 Dose: Not Given Insulin Detemir (Levemir Vial) 14 units SQ AM [facility] Last Admin: 10/05/16 08:06 Dose: 14 units Insulin Detemir (Levemir Vial) 16 units SQ HS [facility] Last Admin: 10/04/16 21:33 Dose: 16 unit Gen: NAD Heart: S1S2 Lung: scattered rhonchi Abd: soft, nontender Ext: trace edema Laboratory Results - last 24 hr 10/04/16 10/04/16 10/04/16 12:51 15:08 16:27 WBC RBC Hgb Hct MCV MCHC RDW Plt Count MPV Neutrophils % Lymphocytes % Monocytes % Eosinophils % Basophils % ESR Sodium Potassium Chloride Carbon Dioxide Anion Gap BUN Creatinine POC Glucometer 176 292 Random Glucose Calcium C-Reactive Protein 14.2 H D 10/04/16 10/05/16 10/05/16 21:30 06:00 06:00 WBC 14.2 H RBC 3.75 L Hgb 8.3 L Hct 28.4 L MCV 75.6 L MCHC 29.3 L RDW 19.2 H Plt Count 204 MPV 7.6 Neutrophils % 78.6 Lymphocytes % 13.9 D Monocytes % 6.3 Eosinophils % 0.4 Basophils % 0.8 ESR Sodium 139 Potassium 3.6 Chloride 99 Carbon Dioxide 30 Anion Gap 10 BUN 31 H D Creatinine 4.5 H POC Glucometer 261 Random Glucose 71 L D Calcium 7.2 L C-Reactive Protein 10/05/16 10/05/16 10/05/16 06:00 06:37 06:56 WBC RBC Hgb Hct MCV MCHC RDW Plt Count MPV Neutrophils % Lymphocytes % Monocytes % Eosinophils % Basophils % ESR 75 H Sodium Potassium Chloride Carbon Dioxide Anion Gap BUN Creatinine POC Glucometer 61 72 Random Glucose Calcium C-Reactive Protein ASSESSMENT AND PLAN: Diabetic Ketoacidosis resolved Sacral Decubitus Ulcer Infection Polymicrobial Bacteremia r/o Endocarditis Severe Sepsis Lactic Acidosis resolved Acute Severe LV Systolic Dysfunction ESRD on HD HTN CAD COPD - Vanco per ID - Local wound care - HD per renal - O2 to keep SpO2 >90% - inhaled bronchodilators PRN - D/C planning Dr Tang
--- NOTE | 2016-10-05 16:21 | PN ---
Physical Exam: SUBJECTIVE: Patient seen and examined at bedside. OBJECTIVE: Vital Signs Period Temp Pulse Resp BP Sys/Vogt Pulse Ox Last 24 Hr 97.7 F-99.6 F 61-111 18-20 114-135/62-79 92 GENERAL: The patient is awake, alert, and fully oriented, in no acute distress. HEAD: Normal with no signs of trauma. NECK: Trachea midline, full range of motion, supple. LUNGS: Breath sounds equal, clear to auscultation bilaterally, no wheezes, no crackles, no accessory muscle use. HEART: Regular rate and rhythm, S1, S2 without murmur, rub or gallop. ABDOMEN: Soft, nontender, nondistended, normoactive bowel sounds, no guarding, no rebound, no hepatosplenomegaly, no masses. EXTREMITIES: 2+ pulses, warm, well-perfused, no edema. NEUROLOGICAL: Cranial nerves II through XII grossly intact. Normal speech, gait not observed. Laboratory Results - last 24 hr 3 10/04/16 10/04/16 10/05/16 16:27 21:30 06:00 WBC 14.2 H RBC 3.75 L Hgb 8.3 L Hct 28.4 L MCV 75.6 L MCHC 29.3 L RDW 19.2 H Plt Count 204 MPV 7.6 Neutrophils % 78.6 Lymphocytes % 13.9 D Monocytes % 6.3 Eosinophils % 0.4 Basophils % 0.8 ESR Sodium Potassium Chloride Carbon Dioxide Anion Gap BUN Creatinine POC Glucometer 292 261 Random Glucose Calcium 3 10/05/16 10/05/16 10/05/16 06:00 06:00 06:37 WBC RBC Hgb Hct MCV MCHC RDW Plt Count MPV Neutrophils % Lymphocytes % Monocytes % Eosinophils % Basophils % ESR 75 H Sodium 139 Potassium 3.6 Chloride 99 Carbon Dioxide 30 Anion Gap 10 BUN 31 H D Creatinine 4.5 H POC Glucometer 61 Random Glucose 71 L D Calcium 7.2 L 3 10/05/16 10/05/16 06:56 11:53 WBC RBC Hgb Hct MCV MCHC RDW Plt Count MPV Neutrophils % Lymphocytes % Monocytes % Eosinophils % Basophils % ESR Sodium Potassium Chloride Carbon Dioxide Anion Gap BUN Creatinine POC Glucometer 72 145 Random Glucose Calcium Active Medications 3 Generic Name Dose Route Start Last Admin Trade Name Freq PRN Reason Stop Dose Admin Acetaminophen 650 mg 10/03/16 13:10 Tylenol - PO Q4H PRN FEVER OR PAIN Benzocaine/Menthol 1 each 10/03/16 13:10 Cepacol Lozenge - MM Q4H PRN SORE THROAT Collagenase 1 applic 10/04/16 10:00 10/05/16 10:09 Santyl - TP 1 applic DAILY [facility] Administration Fentanyl 25 mcg 10/03/16 11:13 Sublimaze Injection - IVPUSH 10/06/16 11:14 [id number] PRN PAIN Furosemide 100 mg 10/03/16 14:00 10/05/16 13:44 Lasix Injection - IVPUSH 100 mg BIDLASIX [facility] Administration Heparin Sodium (Porcine) 5,000 unit 10/03/16 22:00 10/05/16 10:09 Heparin - SQ 5,000 unit BID [facility] Administration Insulin Aspart 1 vial 10/03/16 16:30 10/05/16 11:54 Novolog Vial Sliding Scale - SQ Not Given ACHS [facility] Protocol Insulin Detemir 14 units 10/04/16 07:00 10/05/16 08:06 Levemir Vial SQ 14 units AM [facility] Administration Insulin Detemir 16 units 10/04/16 22:00 10/04/16 21:33 Levemir Vial SQ 16 unit HS [facility] Administration Microbiology 10/01/16 19:55 Blood - Peripheral Venous Blood Culture - Preliminary NO GROWTH OBTAINED AFTER 96 HOURS, INCUBATION TO CONTINUE FOR 1 DAYS. 10/01/16 19:50 Blood - Peripheral Venous Blood Culture - Preliminary NO GROWTH OBTAINED AFTER 96 HOURS, INCUBATION TO CONTINUE FOR 1 DAYS. 10/04/16 14:55 Blood - Peripheral Venous Blood Culture - Preliminary NO GROWTH OBTAINED AFTER 24 HOURS, INCUBATION TO CONTINUE FOR 4 DAYS. 10/04/16 14:50 Blood - Peripheral Venous Blood Culture - Preliminary NO GROWTH OBTAINED AFTER 24 HOURS, INCUBATION TO CONTINUE FOR 4 DAYS. 09/27/16 16:30 Decubiti Gram Stain - Final 09/27/16 16:30 Decubiti Wound Culture - Final Morganella Morganii Enterococcus Faecalis Mr S Aureus Vr Ec Faecium 09/27/16 17:20 Blood - Peripheral Venous Blood Culture - Final NO GROWTH AFTER 5 DAYS INCUBATION 09/27/16 17:20 Blood - Peripheral Venous Blood Culture - Final NO GROWTH AFTER 5 DAYS INCUBATION 09/24/16 07:40 Blood - Pre-Dialysis Blood Culture - Final Mr S Aureus Beta Hem Streptococcus Group F Bacteroides Fragilis 09/24/16 07:15 Blood - Pre-Dialysis Blood Culture - Final S Aureus Beta Hem Streptococcus Group F 09/24/16 01:00 Blood - Peripheral Venous Blood Culture - Final Beta Hem Streptococcus Group F Mr Mohan Aureus 09/24/16 00:30 Blood - Peripheral Venous Blood Culture - Final Beta Hem Streptococcus Group F Mr Mohan Aureus 09/24/16 20:45 Stool Salmonella/Shigella Culture - Final NO GROWTH OF SALMONELLA OR SHIGELLA SPECIES OBTAINED 09/24/16 20:45 Stool Campylobacter Culture - Final NO GROWTH OF CAMPYLOBACTER SPECIES OBTAINED 09/24/16 20:45 Stool Yersinia Culture - Final NO GROWTH OF YERSINIA SPECIES OBTAINED 09/24/16 20:45 Stool Vibrio Culture - Final NO GROWTH OF VIBRIO SPECIES OBTAINED 09/24/16 20:45 Stool Escherichia coli 0157 Culture - Final NO GROWTH OF E COLI 0157 OBTAINED 09/24/16 01:20 Urine - Urine Clean Catch Urine Culture - Final Citrobacter Freundii Complex Acinetobacter Baumannii/Haemol 09/24/16 20:45 Stool Clostridium difficile Antigen (JADYN) - Final 09/24/16 20:45 Stool Clostridium difficile Toxin Assay - Final ASSESSMENT/PLAN: Assessment: This is a 66 year old male with PMHx of ESRD- on HD (//Fri) with permacath, pending mapping for AV-Fistula, HTN, [place] (01/2016), DM, COPD, Sacral Decubital Ulcers presented with diarrhea, sp fall. He was found to be in DKA, hyperkalemia, and transferred to the ICU for septic shock d/t uti and probable sacral ulcers. P: 1. Septic shock 2/2 polymicrobial bacteremia - Vancomycin with HD for 2 more weeks - ECHO with highly mobile mass consistent with a torn or redundant chordae. A vegetation on the mitral valve cannot be excluded - Cultures as above - Elevated CRP - F/u ESR - Appreciate ID consult 2. Diarrhea - C.diff negative - Stool culture negative 3. Sacral debuital ulcers - S/p debridement in OR 09/27 - Santyl dressing changes daily - Appreciate surgery consult 4. DKA - Resolved - BGM ACHS - ISS ACHS - Levemir 14u sq qhs - Levemir 16u sq qam 5. Cardiology: CAD s/p [place] 2015 - Hold Metoprolol 2/2 hypotension caused by sepsis 6.HTN - BP controlled not on meds 7. ESRD - transition back to TTS HD schedule next week - Lasix 100mg IVPB bid - Appreciate nephrology consult 8. Anemia 2/2 chronic disease - Monitor H/H 9. F/E/N: - Monitor electrolytes - Renal, diabetic diet 10. PPX - Heparin 5,000u sq bid Dipso- Requires continued inpatient care CODE STATUS: FULL CODE Visit type - Emergency Visit Emergency Visit: Yes ED Registration Date: 09/24/16 Care time: The patient presented to the Emergency Department on the above date and was hospitalized for further evaluation of their emergent condition. - New Patient This patient is new to me today: Yes Date on this admission: 10/06/16 - Critical Care Critical Care patient: No
[2016-10-05] MEDS ORDERED: INSULIN (NOVOLOG) ASPART 100 UNITS/ML 10ML VIAL ONE ×2 (16:40→21:23)
[2016-10-06] MEDS: INSULIN SLIDING SCALE (NOVOLOG) 1 VIAL SQ SCH ×4 (06:34→21:47)
[2016-10-06] MEDS: INSULIN DETEMIR 100 UNITS/ML MDV SQ SCH ×2 (06:34→21:46)
[2016-10-06] MEDS: FUROSEMIDE 100 MG/10 ML INJECTABLE VIAL IVPUSH SCH ×2 (06:35→14:52)
[2016-10-06] MEDS ORDERED: INSULIN (NOVOLOG) ASPART 100 UNITS/ML 10ML VIAL ONE ×3 (06:40→18:32)
[2016-10-06] MEDS ORDERED: INSULIN DETEMIR 100 UNITS/ML MDV SQ ONE (06:40)
[2016-10-06 08:17] LABS: BASOPHIL 0.7 % (0-2.0); EOSINOPHIL 0.5 % (0-4.5); MCH 22.4 pg (25.7-33.7); MCHC 29.8 g/dl (32.0-35.9); MEAN CELL VOLUME 75.4 fl (80-96); MEAN PLT VOLUME 7.9 fl (7.5-11.1); PLATELET COUNT 200 K/MM3 (134-434); RDW 19.6 % (11.9-15.9); WHITE BLOOD COUNT 11.3 K/mm3 (4.0-10.0)
[2016-10-06 08:26] LABS: ANION GAP 12 (8-16); CALCIUM 7.1 mg/dL (8.5-10.1); CO2 28 mmol/L (21-32); CREATININE 5.6 mg/dL (0.7-1.3); GLUCOSE,RANDOM 91 mg/dL (74-106)
[2016-10-06] MEDS ORDERED: EPOETIN ALFA 20,000 UNIT/1 ML VIAL SQ ONE (09:00)
[2016-10-06] MEDS: ACETAMINOPHEN 325 MG TABLET (FP) PO PRN ×2 (09:16→21:48)
[2016-10-06] MEDS: HEPARIN NA (PORCINE) 5,000 UNITS/ML 1ML VIAL SQ SCH ×2 (09:19→21:46)
--- NOTE | 2016-10-06 09:53 | PN ---
Physical Exam: SUBJECTIVE: Patient seen and examined OBJECTIVE: Vital Signs Period Temp Pulse Resp BP Sys/Vogt Pulse Ox Last 24 Hr 97.2 F-99.6 F 61-107 20-20 114-133/51-84 92 GENERAL: The patient is awake, alert, and fully oriented, in no acute distress. HEAD: Normal with no signs of trauma. EYES: PERRL, extraocular movements intact, sclera anicteric, conjunctiva clear. No ptosis. ENT: Ears normal, nares patent, oropharynx clear without exudates, moist mucous membranes. NECK: Trachea midline, full range of motion, supple. LUNGS: Breath sounds equal, clear to auscultation bilaterally, no wheezes, no crackles, no accessory muscle use. HEART: Regular rate and rhythm, S1, S2 without murmur, rub or gallop. ABDOMEN: Soft, nontender, nondistended, normoactive bowel sounds, no guarding, no rebound, no hepatosplenomegaly, no masses. EXTREMITIES: 2+ pulses, warm, well-perfused, no edema. NEUROLOGICAL: Cranial nerves II through XII grossly intact. Normal speech, gait not observed. PSYCH: Normal mood, normal affect. SKIN: Warm, dry, normal turgor, no rashes or lesions noted Laboratory Results - last 24 hr 3 10/05/16 10/05/16 10/05/16 11:53 16:36 21:59 WBC RBC Hgb Hct MCV MCHC RDW Plt Count MPV Neutrophils % Lymphocytes % Monocytes % Eosinophils % Basophils % Sodium Potassium Chloride Carbon Dioxide Anion Gap BUN Creatinine POC Glucometer 145 158 203 Random Glucose Calcium Random Vancomycin 3 10/06/16 10/06/16 10/06/16 06:33 07:00 07:00 WBC RBC Hgb Hct MCV MCHC RDW Plt Count MPV Neutrophils % Lymphocytes % Monocytes % Eosinophils % Basophils % Sodium 138 Potassium 3.8 Chloride 98 Carbon Dioxide 28 Anion Gap 12 BUN 44 H D Creatinine 5.6 H D POC Glucometer 63 Random Glucose 91 D Calcium 7.1 L Random Vancomycin 11.873 3 10/06/16 07:00 WBC 11.3 H RBC 3.59 L Hgb 8.1 L Hct 27.1 L MCV 75.4 L MCHC 29.8 L RDW 19.6 H Plt Count 200 MPV 7.9 Neutrophils % 73.0 Lymphocytes % 18.9 D Monocytes % 6.9 Eosinophils % 0.5 Basophils % 0.7 Sodium Potassium Chloride Carbon Dioxide Anion Gap BUN Creatinine POC Glucometer Random Glucose Calcium Random Vancomycin Active Medications 3 Generic Name Dose Route Start Last Admin Trade Name Freq PRN Reason Stop Dose Admin Acetaminophen 650 mg 10/03/16 13:10 10/06/16 09:16 Tylenol - PO 650 mg Q4H PRN Administration FEVER OR PAIN Benzocaine/Menthol 1 each 10/03/16 13:10 Cepacol Lozenge - MM Q4H PRN SORE THROAT Collagenase 1 applic 10/04/16 10:00 10/05/16 10:09 Santyl - TP 1 applic DAILY [facility] Administration Fentanyl 25 mcg 10/03/16 11:13 Sublimaze Injection - IVPUSH 10/06/16 11:14 [id number] PRN PAIN Furosemide 100 mg 10/03/16 14:00 10/06/16 06:35 Lasix Injection - IVPUSH 100 mg BIDLASIX [facility] Administration Heparin Sodium (Porcine) 5,000 unit 10/03/16 22:00 10/06/16 09:19 Heparin - SQ 5,000 unit BID [facility] Administration Insulin Aspart 1 vial 10/03/16 16:30 10/06/16 06:34 Novolog Vial Sliding Scale - SQ Not Given ACHS [facility] Protocol Insulin Detemir 14 units 10/04/16 07:00 10/06/16 06:34 Levemir Vial SQ Not Given AM [facility] Insulin Detemir 16 units 10/04/16 22:00 10/05/16 22:00 Levemir Vial SQ 16 unit HS [facility] Administration Microbiology 10/01/16 19:55 Blood - Peripheral Venous Blood Culture - Preliminary NO GROWTH OBTAINED AFTER 96 HOURS, INCUBATION TO CONTINUE FOR 1 DAYS. 10/01/16 19:50 Blood - Peripheral Venous Blood Culture - Preliminary NO GROWTH OBTAINED AFTER 96 HOURS, INCUBATION TO CONTINUE FOR 1 DAYS. 10/04/16 14:55 Blood - Peripheral Venous Blood Culture - Preliminary NO GROWTH OBTAINED AFTER 24 HOURS, INCUBATION TO CONTINUE FOR 4 DAYS. 10/04/16 14:50 Blood - Peripheral Venous Blood Culture - Preliminary NO GROWTH OBTAINED AFTER 24 HOURS, INCUBATION TO CONTINUE FOR 4 DAYS. 09/27/16 16:30 Decubiti Gram Stain - Final 09/27/16 16:30 Decubiti Wound Culture - Final Morganella Morganii Enterococcus Faecalis Mr S Aureus Vr Ec Faecium 09/27/16 17:20 Blood - Peripheral Venous Blood Culture - Final NO GROWTH AFTER 5 DAYS INCUBATION 09/27/16 17:20 Blood - Peripheral Venous Blood Culture - Final NO GROWTH AFTER 5 DAYS INCUBATION 09/24/16 07:40 Blood - Pre-Dialysis Blood Culture - Final S Aureus Beta Hem Streptococcus Group F Bacteroides Fragilis 09/24/16 07:15 Blood - Pre-Dialysis Blood Culture - Final S Aureus Beta Hem Streptococcus Group F 09/24/16 01:00 Blood - Peripheral Venous Blood Culture - Final Beta Hem Streptococcus Group F S Aureus 09/24/16 00:30 Blood - Peripheral Venous Blood Culture - Final Beta Hem Streptococcus Group F S Aureus 09/24/16 20:45 Stool Salmonella/Shigella Culture - Final NO GROWTH OF SALMONELLA OR SHIGELLA SPECIES OBTAINED 09/24/16 20:45 Stool Campylobacter Culture - Final NO GROWTH OF CAMPYLOBACTER SPECIES OBTAINED 09/24/16 20:45 Stool Yersinia Culture - Final NO GROWTH OF YERSINIA SPECIES OBTAINED 09/24/16 20:45 Stool Vibrio Culture - Final NO GROWTH OF VIBRIO SPECIES OBTAINED 09/24/16 20:45 Stool Escherichia coli 0157 Culture - Final NO GROWTH OF E COLI 0157 OBTAINED 09/24/16 01:20 Urine - Urine Clean Catch Urine Culture - Final Citrobacter Freundii Complex Acinetobacter Baumannii/Haemol 09/24/16 20:45 Stool Clostridium difficile Antigen (JADYN) - Final 09/24/16 20:45 Stool Clostridium difficile Toxin Assay - Final ASSESSMENT/PLAN: A: This is a 66 year old male with PMHx of ESRD- on HD (/) with permacath, pending mapping for AV-Fistula, HTN, [place] (01/2016), DM, COPD, Sacral Decubital Ulcers presented with diarrhea, sp fall. He was found to be in DKA, hyperkalemia , and transferred to the ICU for septic shock d/t uti and probable sacral ulcers. AM BGM's continue to be low. Will decrease PM Levemir. P: 1. Septic shock 2/2 polymicrobial bacteremia - Vancomycin with HD for 2 more weeks - ECHO with highly mobile mass consistent with a torn or redundant chordae. A vegetation on the mitral valve cannot be excluded - Cultures as above - Elevated CRP - F/u ESR - Appreciate ID consult 2. Diarrhea - C.diff negative - Stool culture negative 3. Sacral debuital ulcers - S/p debridement in OR 09/27 - Santyl dressing changes daily - Appreciate surgery consult 4. DKA - Resolved - BGM ACHS - ISS ACHS - decrease PM to Levemir 12u sq qhs - Levemir 16u sq qam 5. CAD s/p [place] 2015 - Hold Metoprolol 2/2 hypotension caused by sepsis 6. RLE DVT vs Cellulitis - Sono negative for DVT - 6.HTN - BP controlled not on meds 7. ESRD - transition back to TTS HD schedule next week - Lasix 100mg IVPB bid - Appreciate nephrology consult 8. Anemia 2/2 chronic disease - Monitor H/H 9. F/E/N: - Monitor electrolytes - Renal, diabetic diet 10. PPX - Heparin 5,000u sq bid Visit type - Emergency Visit Emergency Visit: Yes ED Registration Date: 09/24/16 Care time: The patient presented to the Emergency Department on the above date and was hospitalized for further evaluation of their emergent condition. - New Patient This patient is new to me today: No - Critical Care Critical Care patient: No
[2016-10-06] MEDS: COLLAGENASE CLOSTRIDIUM HIST. 30 GRAMS TUBE TP SCH (10:03)
--- NOTE | 2016-10-06 10:43 | PN ---
Progress Note (short form) - Note Progress Note: Renal Follow up for ESRD on HD Pt seen and examined at the bedside no acute complains right LE noted to be more swollen, for US today no sob, chest pain Vital Signs Temperature 98.6 F 10/06/16 09:48 Pulse Rate 107 H 10/06/16 09:48 Respiratory Rate 20 10/06/16 09:48 Blood Pressure 120/51 10/06/16 09:48 O2 Sat by Pulse Oximetry (%) 92 L 10/05/16 21:00 Intake & Output 10/03/16 10/04/16 10/05/16 10/06/16 23:59 23:59 23:59 23:59 Intake Total 950 930 750 350 Output Total 10 Balance 940 930 750 350 Weight 194 lb 3 oz Gen: NAD on NC, awake and alert CVS: RRR, NO M/R Lungs: dec BS at lung bases, b/l air entry Ext: Trace edema in LE Access: RIght IJ permacath CBC, BMP 10/06/16 07:00 10/06/16 07:00 Current Medications Acetaminophen (Tylenol -) 650 mg PO Q4H PRN PRN Reason: FEVER OR PAIN Last Admin: 10/06/16 09:16 Dose: 650 mg Benzocaine/Menthol (Cepacol Lozenge -) 1 each MM Q4H PRN PRN Reason: SORE THROAT Collagenase (Santyl -) 1 applic TP DAILY [facility] Last Admin: 10/06/16 10:03 Dose: 1 applic Fentanyl (Sublimaze Injection -) 25 mcg IVPUSH [id number] PRN PRN Reason: PAIN Stop: 10/06/16 11:14 Furosemide (Lasix Injection -) 100 mg IVPUSH BIDLASIX [facility] Last Admin: 10/06/16 06:35 Dose: 100 mg Heparin Sodium (Porcine) (Heparin -) 5,000 unit SQ BID [facility] Last Admin: 10/06/16 09:19 Dose: 5,000 unit Insulin Aspart (Novolog Vial Sliding Scale -) 1 vial SQ ACHS [facility] PRN Reason: Protocol Last Admin: 10/06/16 06:34 Dose: Not Given Insulin Detemir (Levemir Vial) 14 units SQ AM [facility] Last Admin: 10/06/16 06:34 Dose: Not Given Insulin Detemir (Levemir Vial) 16 units SQ HS [facility] Last Admin: 10/05/16 22:00 Dose: 16 unit A/P 66 year old gentleman with PMhx of ESRD on HD, CAD, CHF, IDDM, Sacral Decubitis who presented with weakness and fall and found to have SIRS/Sepsis with DKA and hyperkalemia and metabolic acidosis. #SIRS/Sepsis/Sacral Decubitis Blood cultures from 09/27 and 10/01 w/o growth will continue Vanco with HD for 2 more weeks per ID recs #ESRD on HD for next HD tomorrow will transition to TTS schedule this week #Micocytoic Anemia Maintain WILY with HD #Unilateral LE swelling for Doppler US today Pt may need SNF placement on discharge, complete PT assessment pending Dominick Vanegas DO
--- NOTE | 2016-10-06 12:47 | PN ---
Progress Note (short form) - Note Progress Note: Resting in NAD. No acute evenst overnight. No CP or SOB. Noted RLE US was (-) for DVT. Intake & Output 10/03/16 10/04/16 10/05/16 10/06/16 23:59 23:59 23:59 23:59 Intake Total 950 930 750 350 Output Total 10 Balance 940 930 750 350 Weight 194 lb 3 oz Last Vital Signs Temp Pulse Resp BP Pulse Ox 98.6 F 107 H 20 120/51 92 L 10/06/16 09:48 10/06/16 09:48 10/06/16 09:48 10/06/16 09:48 10/05/16 21:00 Active Medications Acetaminophen (Tylenol -) 650 mg PO Q4H PRN PRN Reason: FEVER OR PAIN Last Admin: 10/06/16 09:16 Dose: 650 mg Benzocaine/Menthol (Cepacol Lozenge -) 1 each MM Q4H PRN PRN Reason: SORE THROAT Collagenase (Santyl -) 1 applic TP DAILY [facility] Last Admin: 10/06/16 10:03 Dose: 1 applic Epoetin Neftaly (Procrit -) 20,000 unit SQ ONCE ONE Stop: 10/06/16 10:44 Furosemide (Lasix Injection -) 100 mg IVPUSH BIDLASIX [facility] Last Admin: 10/06/16 06:35 Dose: 100 mg Heparin Sodium (Porcine) (Heparin -) 5,000 unit SQ BID [facility] Last Admin: 10/06/16 09:19 Dose: 5,000 unit Vancomycin HCl 1,000 mg/ (Dextrose) 250 mls @ 250 mls/hr IVPB ONCE ONE PRN Reason: Protocol Stop: 10/07/16 08:59 Insulin Aspart (Novolog Vial Sliding Scale -) 1 vial SQ ACHS [facility] PRN Reason: Protocol Last Admin: 10/06/16 11:58 Dose: 4 units Insulin Detemir (Levemir Vial) 14 units SQ AM [facility] Last Admin: 10/06/16 06:34 Dose: Not Given Insulin Detemir (Levemir Vial) 14 units SQ HS [facility] Gen: NAD Heart: S1S2 Lung: scattered rhonchi Abd: soft, nontender Ext: trace edema Laboratory Results - last 24 hr 10/05/16 10/05/16 10/06/16 16:36 21:59 06:33 WBC RBC Hgb Hct MCV MCHC RDW Plt Count MPV Neutrophils % Lymphocytes % Monocytes % Eosinophils % Basophils % Sodium Potassium Chloride Carbon Dioxide Anion Gap BUN Creatinine POC Glucometer 158 203 63 Random Glucose Calcium Random Vancomycin 10/06/16 10/06/16 10/06/16 07:00 07:00 07:00 WBC 11.3 H RBC 3.59 L Hgb 8.1 L Hct 27.1 L MCV 75.4 L MCHC 29.8 L RDW 19.6 H Plt Count 200 MPV 7.9 Neutrophils % 73.0 Lymphocytes % 18.9 D Monocytes % 6.9 Eosinophils % 0.5 Basophils % 0.7 Sodium 138 Potassium 3.8 Chloride 98 Carbon Dioxide 28 Anion Gap 12 BUN 44 H D Creatinine 5.6 H D POC Glucometer Random Glucose 91 D Calcium 7.1 L Random Vancomycin 11.873 10/06/16 11:51 WBC RBC Hgb Hct MCV MCHC RDW Plt Count MPV Neutrophils % Lymphocytes % Monocytes % Eosinophils % Basophils % Sodium Potassium Chloride Carbon Dioxide Anion Gap BUN Creatinine POC Glucometer 222 Random Glucose Calcium Random Vancomycin ASSESSMENT AND PLAN: Diabetic Ketoacidosis resolved Sacral Decubitus Ulcer Infection Polymicrobial Bacteremia r/o Endocarditis Severe Sepsis Lactic Acidosis resolved Acute Severe LV Systolic Dysfunction ESRD on HD HTN CAD COPD - Vanco per ID - Local wound care - HD per renal - O2 to keep SpO2 >90% - inhaled bronchodilators PRN - D/C planning Dr Tang
--- NOTE | 2016-10-06 20:35 | OP ---
DATE OF OPERATION: 10/03/2016 PREOPERATIVE DIAGNOSIS: Necrotic sacral ulcers. POSTOPERATIVE DIAGNOSIS: Necrotic sacral ulcers. PROCEDURE: Excisional debridement of skin, subcutaneous tissue, and muscle of sacrum. SURGEON: Tonio Hinson DO ANESTHESIA: Fractional. BLOOD LOSS: 30 mL. The patient is a 66-year-old male who has 2 necrotic ulcers on his sacrum that are leading to leukocytosis. It was decided that he would need debridement. The patient was consented for the procedure, understanding all risks, benefits, alternatives. He was then taken to the operating room. Once in the operating room, he was laid on the operating table in supine manner and the area of the sacrum was prepped and draped in a sterile surgical manner. Then 20 mL of lidocaine 1% was then injected over the 2 ulcers that were necrotic. We then used a number 15 blade and excised the skin, the subcutaneous tissue, getting down to muscle and including taking necrotic muscle out. Bovie electrocautery used to control hemostasis. Both ulcers were cleaned up using a 15 blade, and we were able to get down to skin, subcutaneous tissue and muscle. Both wounds were then copiously irrigated, and they were then packed using saline moist dressings. Then 4 x 4s and ABD pads were placed. The patient tolerated the procedure, no complication. Total blood loss 30 mL. Patient was transferred back in stable condition. TONIO HISNON DO [id number]
[2016-10-07] MEDS: FUROSEMIDE 100 MG/10 ML INJECTABLE VIAL IVPUSH SCH ×2 (06:08→14:59)
[2016-10-07] MEDS: INSULIN DETEMIR 100 UNITS/ML MDV SQ SCH ×2 (06:09→21:48)
[2016-10-07] MEDS: INSULIN SLIDING SCALE (NOVOLOG) 1 VIAL SQ SCH ×4 (06:09→21:48)
[2016-10-07] MEDS ORDERED: INSULIN (NOVOLOG) ASPART 100 UNITS/ML 10ML VIAL ONE (06:33)
[2016-10-07 07:31] LABS: BASOPHIL 0.9 % (0-2.0); MCH 22.8 pg (25.7-33.7); MCHC 30.3 g/dl (32.0-35.9); MEAN CELL VOLUME 75.1 fl (80-96); MEAN PLT VOLUME 7.9 fl (7.5-11.1); NEUTROPHILS 63.5 % (42.8-82.8); PLATELET COUNT 238 K/MM3 (134-434); RDW 19.8 % (11.9-15.9); WHITE BLOOD COUNT 11.4 K/mm3 (4.0-10.0)
[2016-10-07 07:58] LABS: CREATININE 6.5 mg/dL (0.7-1.3); GLUCOSE,RANDOM 146 mg/dL (74-106)
[2016-10-07 08:00] LABS: ANION GAP 12 (8-16); CALCIUM 7.5 mg/dL (8.5-10.1); CO2 27 mmol/L (21-32)
[2016-10-07] MEDS ORDERED: VANCOMYCIN 1,000 MG in DEXTROSE 5%-WATER - 250 ML IVPB ONE (09:00)
[2016-10-07] MEDS ORDERED: EPOETIN ALFA 20,000 UNIT/1 ML VIAL SQ ONE (09:30)
[2016-10-07 09:52] LABS: ALBUMIN 1.7 g/dl (3.4-5.0); ANION GAP 14 (8-16); BILIRUBIN,TOTAL 0.4 mg/dL (0.2-1.0); CALCIUM 7.1 mg/dL (8.5-10.1); CO2 26 mmol/L (21-32); CREATININE 6.5 mg/dL (0.7-1.3); GLUCOSE,RANDOM 144 mg/dL (74-106); PHOSPHOROUS 4.9 mg/dL (2.5-4.9); SGOT/AST 17 U/L (15-37); SGPT/ALT 6 U/L (12-78); TOT PROT 6.7 g/dl (6.4-8.2)
[2016-10-07 09:53] LABS: ALK PHOS 70 U/L (45-117)
--- NOTE | 2016-10-07 13:47 | PN ---
Progress Note (short form) - Note Progress Note: area of erythema noted on back of right leg it is linear and indurated not noted on previous exams patient thinks he has had this since admission? no fevers Vital Signs Period Temp Pulse Resp BP Sys/Vogt Pulse Ox Last 24 Hr 98 F-99 F 59-117 18-20 101-152/50-88 91 cor-rrr lungs clear abd soft,nt ext edema r greater then left area of erythema and induration along calf above skin tag on right leg CBC, BMP 10/07/16 06:00 10/07/16 06:00 Microbiology 10/01/16 19:55 Blood - Peripheral Venous Blood Culture - Final NO GROWTH AFTER 5 DAYS INCUBATION 10/01/16 19:50 Blood - Peripheral Venous Blood Culture - Final NO GROWTH AFTER 5 DAYS INCUBATION 10/04/16 14:55 Blood - Peripheral Venous Blood Culture - Preliminary NO GROWTH OBTAINED AFTER 48 HOURS, INCUBATION TO CONTINUE FOR 3 DAYS. 10/04/16 14:50 Blood - Peripheral Venous Blood Culture - Preliminary NO GROWTH OBTAINED AFTER 48 HOURS, INCUBATION TO CONTINUE FOR 3 DAYS. 09/27/16 16:30 Decubiti Gram Stain - Final 09/27/16 16:30 Decubiti Wound Culture - Final Morganella Morganii Enterococcus Faecalis Mr S Aureus Vr Ec Faecium 09/27/16 17:20 Blood - Peripheral Venous Blood Culture - Final NO GROWTH AFTER 5 DAYS INCUBATION 09/27/16 17:20 Blood - Peripheral Venous Blood Culture - Final NO GROWTH AFTER 5 DAYS INCUBATION 09/24/16 07:40 Blood - Pre-Dialysis Blood Culture - Final Mr S Aureus Beta Hem Streptococcus Group F Bacteroides Fragilis 09/24/16 07:15 Blood - Pre-Dialysis Blood Culture - Final Mr S Aureus Beta Hem Streptococcus Group F 09/24/16 01:00 Blood - Peripheral Venous Blood Culture - Final Beta Hem Streptococcus Group F Mr S Aureus 09/24/16 00:30 Blood - Peripheral Venous Blood Culture - Final Beta Hem Streptococcus Group F Mr S Aureus 09/24/16 20:45 Stool Salmonella/Shigella Culture - Final NO GROWTH OF SALMONELLA OR SHIGELLA SPECIES OBTAINED 09/24/16 20:45 Stool Campylobacter Culture - Final NO GROWTH OF CAMPYLOBACTER SPECIES OBTAINED 09/24/16 20:45 Stool Yersinia Culture - Final NO GROWTH OF YERSINIA SPECIES OBTAINED 09/24/16 20:45 Stool Vibrio Culture - Final NO GROWTH OF VIBRIO SPECIES OBTAINED 09/24/16 20:45 Stool Escherichia coli 0157 Culture - Final NO GROWTH OF E COLI 0157 OBTAINED 09/24/16 01:20 Urine - Urine Clean Catch Urine Culture - Final Citrobacter Freundii Complex Acinetobacter Baumannii/Haemol 09/24/16 20:45 Stool Clostridium difficile Antigen (JADYN) - Final 09/24/16 20:45 Stool Clostridium difficile Toxin Assay - Final a/p ?cellulitis of RLE he is currently receiving vancomycin with HD for bacteremia (mrsa/strep) duplex negative would raina the leg and observe should aim for vancomycin level of 15 esrd/hd s/p debridement of decubitus ulcers
[2016-10-07] MEDS: HEPARIN NA (PORCINE) 5,000 UNITS/ML 1ML VIAL SQ SCH ×2 (14:59→21:47)
[2016-10-07] MEDS: COLLAGENASE CLOSTRIDIUM HIST. 30 GRAMS TUBE TP SCH (15:00)
--- NOTE | 2016-10-07 16:20 | PN ---
Progress Note, Physician Chief Complaint: Patient seen on dialysis. Permacath being used for dialysis. BP stable. The patient appears very weak. No fever as of now. - Current Medication List Current Medications: Active Medications Acetaminophen (Tylenol -) 650 mg PO Q4H PRN PRN Reason: FEVER OR PAIN Last Admin: 10/06/16 21:48 Dose: 650 mg Benzocaine/Menthol (Cepacol Lozenge -) 1 each MM Q4H PRN PRN Reason: SORE THROAT Collagenase (Santyl -) 1 applic TP DAILY [facility] Last Admin: 10/07/16 15:00 Dose: 1 applic Furosemide (Lasix Injection -) 100 mg IVPUSH BIDLASIX [facility] Last Admin: 10/07/16 14:59 Dose: 100 mg Heparin Sodium (Porcine) (Heparin -) 5,000 unit SQ BID [facility] Last Admin: 10/07/16 14:59 Dose: 5,000 unit Insulin Aspart (Novolog Vial Sliding Scale -) 1 vial SQ ACHS [facility] PRN Reason: Protocol Last Admin: 10/07/16 10:54 Dose: Not Given Insulin Detemir (Levemir Vial) 14 units SQ AM [facility] Last Admin: 10/07/16 06:09 Dose: 14 units Insulin Detemir (Levemir Vial) 14 units SQ HS [facility] Last Admin: 10/06/16 21:46 Dose: 14 units - Objective Vital Signs: Vital Signs Temperature 99.3 F 10/07/16 13:30 Pulse Rate 107 H 10/07/16 13:30 Respiratory Rate 22 10/07/16 13:30 Blood Pressure 113/65 10/07/16 13:30 O2 Sat by Pulse Oximetry (%) 91 L 10/06/16 20:38 Constitutional: Yes: Calm, Poor Hygeine HENT: Yes: Normocephalic Neck: Yes: Trachea Midline Cardiovascular: Yes: S1 Respiratory: Yes: Diminished, Rhonchi Gastrointestinal: Yes: Normal Bowel Sounds Musculoskeletal: Yes: Other (Sacral decubitus) Neurological: Yes: Alert, Oriented Labs: CBC, BMP 10/07/16 06:00 10/07/16 06:00 INR, PTT INR 1.48 (0.82-1.09) H 09/26/16 05:45 Problem List - Problems (1) Polymicrobial bacterial infection Code(s): A49.9 - BACTERIAL INFECTION, UNSPECIFIED (2) CHF (congestive heart failure) Code(s): I50.9 - HEART FAILURE, UNSPECIFIED (3) COPD (chronic obstructive pulmonary disease) Code(s): J44.9 - CHRONIC OBSTRUCTIVE PULMONARY DISEASE, UNSPECIFIED (4) Hyperkalemia Code(s): E87.5 - HYPERKALEMIA (5) Infected decubitus ulcer Code(s): L89.90 - PRESSURE ULCER OF UNSPECIFIED SITE, UNSPECIFIED STAGE (6) Leukocytosis Code(s): D72.829 - ELEVATED WHITE BLOOD CELL COUNT, UNSPECIFIED (7) Renal failure Code(s): N19 - UNSPECIFIED KIDNEY FAILURE (8) Sepsis Code(s): A41.9 - SEPSIS, UNSPECIFIED ORGANISM (9) Anemia Code(s): D64.9 - ANEMIA, UNSPECIFIED Qualifiers: (10) Diabetes Code(s): E11.9 - TYPE 2 DIABETES MELLITUS WITHOUT COMPLICATIONS Qualifiers: (11) End stage kidney disease Code(s): N18.6 - END STAGE RENAL DISEASE Assessment/Plan 66 y/o male with polymicrobial sepsis, from infected Decubitus . The patient has underlying PVD, DM2, ESRD, on HD IV abx infusion in place. To continue Abx Reviewed HD orders with the nurse. Will follow with you. Chichi Garcia MD
--- NOTE | 2016-10-07 18:00 | PN ---
Physical Exam: SUBJECTIVE: Patient seen and examined after HD, to which he tolerated well. He has no acute complaints. He agreed to walking with PT OBJECTIVE: Vital Signs Period Temp Pulse Resp BP Sys/Vogt Pulse Ox Last 24 Hr 98 F-99.3 F 59-117 18-22 101-152/50-88 91-97 PE Neuro: alert, awake, cn 2-12intact Pulm CTAB CV: s1 s2 regularly irregular rhythm Abd: s nt nd + bs Ext: RLE calf erythema and warm, non tender skin: R ankle skin tag Access: RCW permacath Laboratory Results - last 24 hr 10/07/16 10/07/16 10/07/16 06:00 06:00 06:00 WBC 11.4 H RBC 3.94 L Hgb 9.0 L D Hct 29.6 L MCV 75.1 L MCHC 30.3 L RDW 19.8 H Plt Count 238 MPV 7.9 Neutrophils % 63.5 Lymphocytes % 28.8 D Monocytes % 5.8 Eosinophils % 1.0 D Basophils % 0.9 Sodium 135 L 136 Potassium 4.1 4.1 Chloride 96 L 96 L Carbon Dioxide 27 26 Anion Gap 12 14 BUN 55 H D 55 H Creatinine 6.5 H 6.5 H Creat Clearance w eGFR 8.62 POC Glucometer Random Glucose 146 H D 144 H Calcium 7.5 L 7.1 L Phosphorus 4.9 D Total Bilirubin 0.4 D AST 17 D ALT 6 L D Alkaline Phosphatase 70 Total Protein 6.7 Albumin 1.7 L Random Vancomycin 10/07/16 06:00 Random Vancomycin 10.193 Active Medications Generic Name Dose Route Start Last Admin Trade Name Silver PRN Reason Stop Dose Admin Acetaminophen 650 mg 10/03/16 13:10 10/06/16 21:48 Tylenol - PO 650 mg Q4H PRN Administration FEVER OR PAIN Benzocaine/Menthol 1 each 10/03/16 13:10 Cepacol Lozenge - MM Q4H PRN SORE THROAT Collagenase 1 applic 10/04/16 10:00 10/07/16 15:00 Santyl - TP 1 applic DAILY [facility] Administration Furosemide 100 mg 10/03/16 14:00 10/07/16 14:59 Lasix Injection - IVPUSH 100 mg BIDLASIX [facility] Administration Heparin Sodium (Porcine) 5,000 unit 10/03/16 22:00 10/07/16 14:59 Heparin - SQ 5,000 unit BID [facility] Administration Insulin Aspart 1 vial 10/03/16 16:30 10/07/16 17:49 Novolog Vial Sliding Scale - SQ 6 units ACHS [facility] Administration Protocol Insulin Detemir 14 units 10/04/16 07:00 10/07/16 06:09 Levemir Vial SQ 14 units AM [facility] Administration Insulin Detemir 14 units 10/06/16 10:47 10/06/16 21:46 Levemir Vial SQ 14 units HS [facility] Administration Imaging: - ECHO with highly mobile mass consistent with a torn or redundant chordae. A vegetation on the mitral valve cannot be excluded Assessment: 66 year old male with PMHx of ESRD- on HD (//Fri) with permacath , pending mapping for AV-Fistula, HTN, VT (01/2016), DM, COPD, Sacral Decubital Ulcers presented with diarrhea, sp fall. He was found to be in DKA (resolved), hyperkalemia, and transferred to the ICU for septic shock d/t uti and probable sacral ulcers, now s/p debridment. Plan 1. Septic shock 2/2 polymicrobial bacteremia (MRSA/STREP) - Vancomycin with HD for 2 more weeks - Received vanco today in HD 2. RLE erythema, warmth - Negative for DVT - José and monitor for progression 3. DM II - Levemir 16units AM - Levemir 12units HS - ISS, BGM ACHS 4. Sacral debuital ulcers - S/p debridement in OR 09/27 - Santyl dressing changes daily 5. CAD s/p VT 2015 - Restart metoprolol xl, lower dose 25mg HS - EKG w/ ST 6. HTN - BP controlled - Holding norvasc - Restart BB as above 7. Chronic ESRD on HD - HD today - Lasix 100mg BID - Renal following 8. Diarrhea - C.diff/stool cx negative 9. DKA with metabolic and lactic acidosis - Resolved 10. Anemia 2/2 chronic disease - Hgb stable 11. PPX - Heparin 5,000u sq bid Visit type - Emergency Visit Emergency Visit: Yes ED Registration Date: 09/24/16 Care time: The patient presented to the Emergency Department on the above date and was hospitalized for further evaluation of their emergent condition. - New Patient This patient is new to me today: No - Critical Care Critical Care patient: No
[2016-10-07] MEDS ORDERED: METOPROLOL SUCCINATE 25 MG TAB.SR.24H (FP) PO SCH (22:00)
[2016-10-08] MEDS: INSULIN SLIDING SCALE (NOVOLOG) 1 VIAL SQ SCH ×4 (06:28→22:20)
[2016-10-08] MEDS: INSULIN DETEMIR 100 UNITS/ML MDV SQ SCH ×2 (06:29→22:19)
[2016-10-08] MEDS: FUROSEMIDE 100 MG/10 ML INJECTABLE VIAL IVPUSH SCH ×2 (06:30→13:59)
[2016-10-08 07:51] LABS: ANION GAP 10 (8-16); CO2 34 mmol/L (21-32); CREATININE 4.6 mg/dL (0.7-1.3); GLUCOSE,RANDOM 51 mg/dL (74-106)
--- NOTE | 2016-10-08 10:44 | PN ---
Progress Note (short form) - Note Progress Note: No CP or SOB. No acute events overnight. RLE erythema : line of demarcation was placed yesterday. Intake & Output 10/05/16 10/06/16 10/07/16 10/08/16 23:59 23:59 23:59 23:59 Intake Total 750 500 350 237 Balance 750 500 350 237 Weight 200 lb 12.8 oz Last Vital Signs Temp Pulse Resp BP Pulse Ox 97.8 F 105 H 20 121/74 96 10/08/16 05:11 10/08/16 05:11 10/08/16 05:11 10/08/16 05:11 10/07/16 21:00 Active Medications Acetaminophen (Tylenol -) 650 mg PO Q4H PRN PRN Reason: FEVER OR PAIN Last Admin: 10/06/16 21:48 Dose: 650 mg Benzocaine/Menthol (Cepacol Lozenge -) 1 each MM Q4H PRN PRN Reason: SORE THROAT Collagenase (Santyl -) 1 applic TP DAILY [facility] Last Admin: 10/07/16 15:00 Dose: 1 applic Furosemide (Lasix Injection -) 100 mg IVPUSH BIDLASIX [facility] Last Admin: 10/08/16 06:30 Dose: 100 mg Heparin Sodium (Porcine) (Heparin -) 5,000 unit SQ BID [facility] Last Admin: 10/07/16 21:47 Dose: 5,000 unit Insulin Aspart (Novolog Vial Sliding Scale -) 1 vial SQ ACHS [facility] PRN Reason: Protocol Last Admin: 10/08/16 06:28 Dose: Not Given Insulin Detemir (Levemir Vial) 14 units SQ AM [facility] Last Admin: 10/08/16 06:29 Dose: Not Given Insulin Detemir (Levemir Vial) 14 units SQ HS [facility] Last Admin: 10/07/16 21:48 Dose: 14 units Metoprolol Succinate (Toprol Xl -) 25 mg PO HS [facility] Last Admin: 10/07/16 21:46 Dose: 25 mg Gen: NAD Heart: S1S2 Lung: scattered rhonchi Abd: soft, nontender Ext: trace edema Laboratory Results - last 24 hr 10/07/16 10/07/16 10/08/16 17:48 21:42 06:00 Sodium 140 Potassium 3.8 Chloride 96 L Carbon Dioxide 34 H D Anion Gap 10 BUN 36 H D Creatinine 4.6 H D POC Glucometer 279 244 Random Glucose 51 L D Calcium 7.0 L 10/08/16 10/08/16 06:28 06:56 Sodium Potassium Chloride Carbon Dioxide Anion Gap BUN Creatinine POC Glucometer 59 67 Random Glucose Calcium ASSESSMENT AND PLAN: Diabetic Ketoacidosis resolved Sacral Decubitus Ulcer Infection Polymicrobial Bacteremia r/o Endocarditis Severe Sepsis Lactic Acidosis resolved Acute Severe LV Systolic Dysfunction ESRD on HD HTN CAD COPD - ABX per ID - Local wound care - HD per renal - O2 to keep SpO2 >90% - inhaled bronchodilators PRN - No Pulmonary contraindication for D/C planning Dr Tang
[2016-10-08] MEDS: COLLAGENASE CLOSTRIDIUM HIST. 30 GRAMS TUBE TP SCH (10:59)
[2016-10-08] MEDS: HEPARIN NA (PORCINE) 5,000 UNITS/ML 1ML VIAL SQ SCH ×2 (11:00→22:11)
--- NOTE | 2016-10-08 11:41 | EKG ---
Test Reason : Blood Pressure : / mmHG Vent. Rate : 109 BPM Atrial Rate : 109 BPM P-R Int : 122 ms QRS Dur : 110 ms QT Int : 360 ms P-R-T Axes : 069 046 117 degrees QTc Int : 484 ms SINUS TACHYCARDIA WITH FREQUENT and consecutive PREMATURE VENTRICULAR COMPLEXES MINIMAL VOLTAGE CRITERIA FOR LVH, MAY BE NORMAL VARIANT NONSPECIFIC ST AND T WAVE ABNORMALITY ABNORMAL ECG WHEN COMPARED WITH ECG OF 26-SEP-2016 05:01, PREMATURE VENTRICULAR COMPLEXES ARE NOW PRESENT VENT. RATE HAS INCREASED BY 38 BPM T WAVE INVERSION NOW EVIDENT IN LATERAL LEADS Confirmed by GRACE COLEMAN MD ([id number]) on 10/08/2016 11:40:42 AM Referred By: GUCCI TOWNSEND Confirmed By:GRACE COLEMAN MD
[2016-10-08] MEDS ORDERED: INSULIN (NOVOLOG) ASPART 100 UNITS/ML 10ML VIAL ONE (12:37)
--- NOTE | 2016-10-08 13:44 | PN ---
Progress Note, Physician Chief Complaint: Patient seen in his bed. Seems comfortable. No chest pain, or Shortness of breath. The back decubitus is painful Had uneventful HD yesterday. Next HD tomorrow. - Current Medication List Current Medications: Active Medications Acetaminophen (Tylenol -) 650 mg PO Q4H PRN PRN Reason: FEVER OR PAIN Last Admin: 10/06/16 21:48 Dose: 650 mg Benzocaine/Menthol (Cepacol Lozenge -) 1 each MM Q4H PRN PRN Reason: SORE THROAT Collagenase (Santyl -) 1 applic TP DAILY [facility] Last Admin: 10/08/16 10:59 Dose: 1 applic Furosemide (Lasix Injection -) 100 mg IVPUSH BIDLASIX [facility] Last Admin: 10/08/16 06:30 Dose: 100 mg Heparin Sodium (Porcine) (Heparin -) 5,000 unit SQ BID [facility] Last Admin: 10/08/16 11:00 Dose: 5,000 unit Insulin Aspart (Novolog Vial Sliding Scale -) 1 vial SQ ACHS [facility] PRN Reason: Protocol Last Admin: 10/08/16 12:44 Dose: 4 units Insulin Detemir (Levemir Vial) 14 units SQ AM [facility] Last Admin: 10/08/16 06:29 Dose: Not Given Insulin Detemir (Levemir Vial) 14 units SQ HS [facility] Last Admin: 10/07/16 21:48 Dose: 14 units Metoprolol Succinate (Toprol Xl -) 25 mg PO HS [facility] Last Admin: 10/07/16 21:46 Dose: 25 mg - Objective Vital Signs: Vital Signs Temperature 97.8 F 10/08/16 05:11 Pulse Rate 105 H 10/08/16 05:11 Respiratory Rate 20 10/08/16 05:11 Blood Pressure 121/74 10/08/16 05:11 O2 Sat by Pulse Oximetry (%) 96 10/07/16 21:00 Constitutional: Yes: Anxious Eyes: Yes: Conjunctiva Clear HENT: Yes: Normocephalic Cardiovascular: Yes: S1, S2 Respiratory: Yes: Diminished, Poor Air Entry Gastrointestinal: Yes: Normal Bowel Sounds, Abdomen, Obese Musculoskeletal: Yes: Back Pain Labs: CBC, BMP 10/07/16 06:00 10/08/16 06:00 INR, PTT INR 1.48 (0.82-1.09) H 09/26/16 05:45 Problem List - Problems (1) Polymicrobial bacterial infection Code(s): A49.9 - BACTERIAL INFECTION, UNSPECIFIED (2) CHF (congestive heart failure) Code(s): I50.9 - HEART FAILURE, UNSPECIFIED (3) COPD (chronic obstructive pulmonary disease) Code(s): J44.9 - CHRONIC OBSTRUCTIVE PULMONARY DISEASE, UNSPECIFIED (4) Hyperkalemia Code(s): E87.5 - HYPERKALEMIA (5) Infected decubitus ulcer Code(s): L89.90 - PRESSURE ULCER OF UNSPECIFIED SITE, UNSPECIFIED STAGE (6) Leukocytosis Code(s): D72.829 - ELEVATED WHITE BLOOD CELL COUNT, UNSPECIFIED (7) Renal failure Code(s): N19 - UNSPECIFIED KIDNEY FAILURE (8) Sepsis Code(s): A41.9 - SEPSIS, UNSPECIFIED ORGANISM (9) Anemia Code(s): D64.9 - ANEMIA, UNSPECIFIED Qualifiers: (10) Diabetes Code(s): E11.9 - TYPE 2 DIABETES MELLITUS WITHOUT COMPLICATIONS Qualifiers: (11) End stage kidney disease Code(s): N18.6 - END STAGE RENAL DISEASE Assessment/Plan 66 y/o male with polymicrobial sepsis, from infected Decubitus . The patient has underlying PVD, DM2, ESRD, on HD Had uneventful HD yesterday. Next HD tomorrow. Will follow with you. Chichi Garcia MD
--- NOTE | 2016-10-08 16:28 | PN ---
Progress Note, Physician History of Present Illness: No complaints Denies leg pain Low grade temp WBC 11.4 - Current Medication List Current Medications: Active Medications Acetaminophen (Tylenol -) 650 mg PO Q4H PRN PRN Reason: FEVER OR PAIN Last Admin: 10/06/16 21:48 Dose: 650 mg Benzocaine/Menthol (Cepacol Lozenge -) 1 each MM Q4H PRN PRN Reason: SORE THROAT Collagenase (Santyl -) 1 applic TP DAILY [facility] Last Admin: 10/08/16 10:59 Dose: 1 applic Epoetin Neftaly (Procrit -) 10,000 unit SQ ONCE ONE Stop: 10/09/16 13:47 Furosemide (Lasix Injection -) 100 mg IVPUSH BIDLASIX [facility] Last Admin: 10/08/16 13:59 Dose: 100 mg Heparin Sodium (Porcine) (Heparin -) 5,000 unit SQ BID [facility] Last Admin: 10/08/16 11:00 Dose: 5,000 unit Insulin Aspart (Novolog Vial Sliding Scale -) 1 vial SQ ACHS [facility] PRN Reason: Protocol Last Admin: 10/08/16 12:44 Dose: 4 units Insulin Detemir (Levemir Vial) 14 units SQ AM [facility] Last Admin: 10/08/16 06:29 Dose: Not Given Insulin Detemir (Levemir Vial) 14 units SQ HS [facility] Last Admin: 10/07/16 21:48 Dose: 14 units Metoprolol Succinate (Toprol Xl -) 25 mg PO HS [facility] Last Admin: 10/07/16 21:46 Dose: 25 mg - Objective Vital Signs: Vital Signs Temperature 98.2 F 10/08/16 14:31 Pulse Rate 117 H 10/08/16 14:31 Respiratory Rate 20 10/08/16 14:31 Blood Pressure 152/78 10/08/16 14:31 O2 Sat by Pulse Oximetry (%) 96 10/07/16 21:00 Constitutional: Yes: No Distress, Other (chronically ill appearing) Cardiovascular: Yes: Regular Rate and Rhythm, S1, S2 Respiratory: Yes: Diminished Gastrointestinal: Yes: Normal Bowel Sounds, Soft. No: Tenderness Integumentary: Yes: Other (+ sacral, ischial decubiti + erythema, posterior R LE ) Labs: CBC, BMP 10/07/16 06:00 10/08/16 06:00 INR, PTT INR 1.48 (0.82-1.09) H 09/26/16 05:45 Assessment/Plan Sepsis/ septic shock- improved Fever ? decubitus source Polymicrobial bacteremia/ sepsis (MRSA, grpF strep, Bacteroides) S/P debridement of decubitus UTI/ Sepsis secondary to UTI ESRD ? cellulitis posterior R leg Continue vancomycin based on levels Repeat vanco trough am
--- NOTE | 2016-10-08 18:34 | PN ---
Physical Exam: SUBJECTIVE: Patient seen and examined. He feels tired today, but other taveras fine. Events: - Low grade temp this afternoon OBJECTIVE: Vital Signs Period Temp Pulse Resp BP Sys/Vogt Pulse Ox Last 24 Hr 97.8 F-99.9 F 105-117 20-20 121-152/74-90 96 PE Neuro: alert, awake, cn 2-12intact Pulm CTAB CV: s1 s2 regularly irregular rhythm Abd: s nt nd + bs Ext: RLE calf erythema and warm, non tender skin: sacral wound dressed Access: RCW permacath Laboratory Results - last 24 hr 10/07/16 10/08/16 10/08/16 21:42 06:00 06:28 Sodium 140 Potassium 3.8 Chloride 96 L Carbon Dioxide 34 H D Anion Gap 10 BUN 36 H D Creatinine 4.6 H D POC Glucometer 244 59 Random Glucose 51 L D Calcium 7.0 L Active Medications Generic Name Dose Route Start Last Admin Trade Name Freq PRN Reason Stop Dose Admin Acetaminophen 650 mg 10/03/16 13:10 10/06/16 21:48 Tylenol - PO 650 mg Q4H PRN Administration FEVER OR PAIN Benzocaine/Menthol 1 each 10/03/16 13:10 Cepacol Lozenge - MM Q4H PRN SORE THROAT Collagenase 1 applic 10/04/16 10:00 10/08/16 10:59 Santyl - TP 1 applic DAILY AKOSUA Administration Epoetin Neftaly 10,000 unit 10/09/16 13:46 Procrit - SQ 10/09/16 13:47 ONCE ONE Furosemide 100 mg 10/03/16 14:00 10/08/16 13:59 Lasix Injection - IVPUSH 100 mg BIDLASIX AKOSUA Administration Heparin Sodium (Porcine) 5,000 unit 10/03/16 22:00 10/08/16 11:00 Heparin - SQ 5,000 unit BID AKOSUA Administration Insulin Aspart 1 vial 10/03/16 16:30 10/08/16 18:12 Novolog Vial Sliding Scale - SQ 8 units ACHS AKOSUA Administration Protocol Insulin Detemir 14 units 10/04/16 07:00 10/08/16 06:29 Levemir Vial SQ Not Given AM AKOSUA Insulin Detemir 14 units 10/06/16 10:47 10/07/16 21:48 Levemir Vial SQ 14 units HS AKOSUA Administration Metoprolol Succinate 25 mg 10/07/16 22:00 10/07/16 21:46 Toprol Xl - PO 25 mg HS AKOSUA Administration Imaging: - ECHO with highly mobile mass consistent with a torn or redundant chordae. A vegetation on the mitral valve cannot be excluded Assessment: 66 year old male with PMHx of ESRD- on HD (//Fri) with permacath , pending mapping for AV-Fistula, HTN, CT (01/2016), DM, COPD, Sacral Decubital Ulcers presented with diarrhea, sp fall. He was found to be in DKA (resolved), hyperkalemia, and transferred to the ICU for septic shock d/t uti and probable sacral ulcers, now s/p debridment. Plan 1. Septic shock 2/2 polymicrobial bacteremia (MRSA/STREP) - Vancomycin with HD for 2 more weeks - Check vanco level 2. RLE erythema, warmth - Negative for DVT - ? cellulitis, erythema improving 3. DM II - Levemir 16units AM - Levemir 12units HS - ISS, BGM ACHS 4. Sacral debuital ulcers - S/p debridement in OR 09/27 - Santyl dressing changes daily 5. CAD s/p CT 2015 - Resume home dose metoprolol xl 50mg HS 6. HTN - BP controlled - Resume norvasc 10mg tomorrow - Restart BB as above 7. Chronic ESRD on HD - HD tomorrow - Lasix 100mg BID - Renal following 8. Diarrhea - C.diff/stool cx negative 9. DKA with metabolic and lactic acidosis - Resolved 10. Anemia 2/2 chronic disease - Hgb stable 11. PPX - Heparin 5,000u sq bid Visit type - Emergency Visit Emergency Visit: Yes ED Registration Date: 09/24/16 Care time: The patient presented to the Emergency Department on the above date and was hospitalized for further evaluation of their emergent condition. - New Patient This patient is new to me today: No - Critical Care Critical Care patient: No
[2016-10-08] MEDS: METOPROLOL SUCCINATE 50 MG TAB.SR.24H (FP) PO SCH (22:11)
--- NOTE | 2016-10-09 00:02 | HOSP ---
Subjective - Review of Symptoms Events since last encounter: Hospitalist Encounter Notified by primary RN that the patient c/o Dyspnea Stat Chest Xray portable Will give Lasix if film shows- fluid overload. Arrived to bedside, patient is AAOx3 appears anxious. Patient reports dyspnea occured over the course of the day, worse now Chest Xray still pending, RN called radiology office spoke to tech of pending xray. Reviewed chest xray image no change. Pulmonary: Yes: Dyspnea Physical Examination Vital Signs: Vital Signs Temperature 99.1 F 10/08/16 23:53 Pulse Rate 124 H 10/08/16 23:53 Respiratory Rate 20 10/08/16 23:53 Blood Pressure 137/78 10/08/16 23:53 O2 Sat by Pulse Oximetry (%) 95 10/08/16 21:00 Constitutional: Yes: Anxious, Mild Distress, Pallor Respiratory: Yes: Diminished, Poor Air Entry Extremities: Yes: Erythema (posterior medial RLE) Edema: Yes Edema: LLE: 1+, RLE: 2+ Peripheral Pulses WNL: Yes Integumentary: Yes: Erythema Neurological: Yes: WNL, Alert Psychiatric: Yes: WNL, Alert, Oriented Labs: CBC, BMP 10/07/16 06:00 10/08/16 06:00 Critical Care Total Critical Care Time (in minutes): 31 Critical Care Statement: The care of this patient involved high complexity decision making to prevent further life threatening deterioration of the patient 's condition and/or to evalute & treat vital organ system(s) failure or risk of failure.
[2016-10-09] MEDS: FUROSEMIDE 100 MG/10 ML INJECTABLE VIAL IVPUSH SCH (05:58)
[2016-10-09] MEDS: INSULIN SLIDING SCALE (NOVOLOG) 1 VIAL SQ SCH ×4 (06:21→22:04)
[2016-10-09] MEDS: INSULIN DETEMIR 100 UNITS/ML MDV SQ SCH ×2 (06:22→22:02)
[2016-10-09] MEDS ORDERED: EPOETIN ALFA 10,000 UNIT/1 ML VIAL SQ ONE (06:30)
[2016-10-09 08:54] LABS: ANION GAP 11 (8-16); CALCIUM 7.2 mg/dL (8.5-10.1); CO2 31 mmol/L (21-32); GLUCOSE,RANDOM 116 mg/dL (74-106)
[2016-10-09 08:55] LABS: CREATININE 5.3 mg/dL (0.7-1.3)
[2016-10-09] MEDS: amLODIPine BESYLATE 10 MG TABLET (FP) PO SCH (10:03)
[2016-10-09] MEDS: COLLAGENASE CLOSTRIDIUM HIST. 30 GRAMS TUBE TP SCH (12:06)
[2016-10-09] MEDS ORDERED: VANCOMYCIN 1 GRAM (PRE-DOCKED) 250 ML IVPB ONE (12:31)
--- NOTE | 2016-10-09 13:51 | PN ---
Physical Exam: SUBJECTIVE: Patient seen and examined in HD, tolerating well. No acute issues Events: - Overnight dyspnea noted, no change CXR, d/w nephor, pt drinks a lot of liquids - Evening hyperglycemia, AM stable OBJECTIVE: Vital Signs Period Temp Pulse Resp BP Sys/Vogt Pulse Ox Last 24 Hr 97.5 F-99.1 F 87-124 18-20 94-152/55-86 95-96 PE Neuro: alert, awake, cn 2-12intact Pulm CTAB CV: s1 s2 regularly irregular rhythm Abd: s nt nd + bs Ext: RLE calf erythema and warm, non tender skin: sacral wound dressed Access: RCW permacath Laboratory Results - last 24 hr 10/09/16 10/09/16 10/09/16 06:45 06:45 10:45 Sodium 136 Potassium 4.5 Chloride 94 L Carbon Dioxide 31 Anion Gap 11 BUN 52 H D 15 D Creatinine 5.3 H 2.0 H D POC Glucometer Random Glucose 116 H D Calcium 7.2 L Random Vancomycin 10.543 Active Medications Generic Name Dose Route Start Last Admin Trade Name Freq PRN Reason Stop Dose Admin Acetaminophen 650 mg 10/03/16 13:10 10/06/16 21:48 Tylenol - PO 650 mg Q4H PRN Administration FEVER OR PAIN Amlodipine Besylate 10 mg 10/09/16 10:00 Norvasc - PO DAILY AKOSUA Benzocaine/Menthol 1 each 10/03/16 13:10 Cepacol Lozenge - MM Q4H PRN SORE THROAT Collagenase 1 applic 10/04/16 10:00 10/08/16 10:59 Santyl - TP 1 applic DAILY AKOSUA Administration Furosemide 100 mg 10/03/16 14:00 10/09/16 05:58 Lasix Injection - IVPUSH 100 mg BIDLASIX AKOSUA Administration Heparin Sodium (Porcine) 5,000 unit 10/09/16 14:00 Heparin - SQ TID AKOSUA Insulin Aspart 1 vial 10/03/16 16:30 10/09/16 06:21 Novolog Vial Sliding Scale - SQ Not Given ACHS COUNTS INCLUDE 234 BEDS AT THE [facility] Protocol Insulin Detemir 14 units 10/04/16 07:00 10/09/16 06:22 Levemir Vial SQ 14 units AM AKOSUA Administration Insulin Detemir 14 units 10/06/16 10:47 10/08/16 22:19 Levemir Vial SQ 14 units HS AKOSUA Administration Metoprolol Succinate 50 mg 10/08/16 18:31 10/08/16 22:11 Toprol Xl - PO 50 mg HS AKOSUA Administration Imaging: - ECHO with highly mobile mass consistent with a torn or redundant chordae. A vegetation on the mitral valve cannot be excluded Assessment: 66 year old male with PMHx of ESRD- on HD (//Fri) with permacath , pending mapping for AV-Fistula, HTN, [place] (01/2016), DM, COPD, Sacral Decubital Ulcers presented with diarrhea, sp fall. He was found to be in DKA (resolved), hyperkalemia, and transferred to the ICU for septic shock d/t uti and probable sacral ulcers, now s/p debridment. Plan 1. Septic shock 2/2 polymicrobial bacteremia (MRSA/STREP) - Vancomycin with HD for 2 more weeks (10/04- ) - Subtherapeutic vanco level - Goal 15 2. RLE erythema, warmth - Negative for DVT - ? cellulitis, erythema improving 3. DM II - Levemir 16units AM - Levemir 12units HS - ISS, BGM ACHS 4. Sacral debuital ulcers - S/p debridement in OR 09/27 - Santyl dressing changes daily 5. CAD s/p [place] 2015 - Metoprolol xl 50mg HS 6. HTN - BP controlled - Norvasc 10mg daily - BB as above 7. Chronic ESRD on HD - HD today and again tomorrow, which puts him on new schedule - Transition to lasix 100mg daily - Renal following 8. Diarrhea - C.diff/stool cx negative 9. DKA with metabolic and lactic acidosis - Resolved 10. Anemia 2/2 chronic disease - Hgb stable 11. BPH - Proscar on hold 12. PPX - Heparin 5,000u sq bid Dispo: - Tentatively [facility] tomorrow, demi [facility] for HD Visit type - Emergency Visit Emergency Visit: Yes ED Registration Date: 09/24/16 Care time: The patient presented to the Emergency Department on the above date and was hospitalized for further evaluation of their emergent condition. - New Patient This patient is new to me today: No - Critical Care Critical Care patient: No
[2016-10-09] MEDS: HEPARIN NA (PORCINE) 5,000 UNITS/ML 1ML VIAL SQ SCH ×2 (14:05→22:02)
--- NOTE | 2016-10-09 16:59 | PN ---
Progress Note, Physician Chief Complaint: Patient seen on dialysis. Still with active infection of the LE and back...on Abx. Maintains good urine output. No chest pain, Has shortness of breath. The back decubitus is painful The patient's HD regimen is TTS - Current Medication List Current Medications: Active Medications Acetaminophen (Tylenol -) 650 mg PO Q4H PRN PRN Reason: FEVER OR PAIN Last Admin: 10/06/16 21:48 Dose: 650 mg Amlodipine Besylate (Norvasc -) 10 mg PO DAILY [facility] Last Admin: 10/09/16 10:03 Dose: 10 mg Benzocaine/Menthol (Cepacol Lozenge -) 1 each MM Q4H PRN PRN Reason: SORE THROAT Collagenase (Santyl -) 1 applic TP DAILY [facility] Last Admin: 10/09/16 12:06 Dose: 1 applic Furosemide (Lasix -) 100 mg PO DAILY [facility] Heparin Sodium (Porcine) (Heparin -) 5,000 unit SQ TID [facility] Last Admin: 10/09/16 14:05 Dose: 5,000 unit Insulin Aspart (Novolog Vial Sliding Scale -) 1 vial SQ ACHS [facility] PRN Reason: Protocol Last Admin: 10/09/16 16:14 Dose: 2 units Insulin Detemir (Levemir Vial) 14 units SQ AM [facility] Last Admin: 10/09/16 06:22 Dose: 14 units Insulin Detemir (Levemir Vial) 14 units SQ HS [facility] Last Admin: 10/08/16 22:19 Dose: 14 units Metoprolol Succinate (Toprol Xl -) 50 mg PO HS [facility] Last Admin: 10/08/16 22:11 Dose: 50 mg - Objective Vital Signs: Vital Signs Temperature 98.0 F 10/09/16 06:40 Pulse Rate 87 10/09/16 10:50 Respiratory Rate 18 10/09/16 10:50 Blood Pressure 103/61 10/09/16 10:50 O2 Sat by Pulse Oximetry (%) 95 10/08/16 21:00 Constitutional: Yes: Anxious, Mild Distress HENT: Yes: Atraumatic, Normocephalic Cardiovascular: Yes: Regular Rate and Rhythm, S1, S2 Respiratory: Yes: Diminished, Rales, Rhonchi Gastrointestinal: Yes: Normal Bowel Sounds, Soft Musculoskeletal: Yes: Back Pain (Large decubitus) Extremities: Yes: Delayed Capillary Refill Edema: Yes Wound/Incision: Yes: Excoriated Neurological: Yes: Alert, Oriented Labs: CBC, BMP 10/07/16 06:00 10/09/16 10:45 INR, PTT INR 1.48 (0.82-1.09) H 09/26/16 05:45 Problem List - Problems (1) Polymicrobial bacterial infection Code(s): A49.9 - BACTERIAL INFECTION, UNSPECIFIED (2) CHF (congestive heart failure) Code(s): I50.9 - HEART FAILURE, UNSPECIFIED (3) COPD (chronic obstructive pulmonary disease) Code(s): J44.9 - CHRONIC OBSTRUCTIVE PULMONARY DISEASE, UNSPECIFIED (4) Hyperkalemia Code(s): E87.5 - HYPERKALEMIA (5) Infected decubitus ulcer Code(s): L89.90 - PRESSURE ULCER OF UNSPECIFIED SITE, UNSPECIFIED STAGE (6) Leukocytosis Code(s): D72.829 - ELEVATED WHITE BLOOD CELL COUNT, UNSPECIFIED (7) Renal failure Code(s): N19 - UNSPECIFIED KIDNEY FAILURE (8) Sepsis Code(s): A41.9 - SEPSIS, UNSPECIFIED ORGANISM (9) Anemia Code(s): D64.9 - ANEMIA, UNSPECIFIED Qualifiers: (10) Diabetes Code(s): E11.9 - TYPE 2 DIABETES MELLITUS WITHOUT COMPLICATIONS Qualifiers: (11) End stage kidney disease Code(s): N18.6 - END STAGE RENAL DISEASE Assessment/Plan 66 y/o male with polymicrobial sepsis, from infected Decubitus . The patient has underlying PVD, DM2, ESRD, on HD HD uneventful. The patient continues to have minimal Shortness of breath at the end of dialysis. Will arrange for another HD tomorrow. Chichi Garcia MD
[2016-10-09] MEDS: METOPROLOL SUCCINATE 50 MG TAB.SR.24H (FP) PO SCH (22:02)
[2016-10-10] MEDS: HEPARIN NA (PORCINE) 5,000 UNITS/ML 1ML VIAL SQ SCH ×3 (06:32→21:08)
[2016-10-10] MEDS: INSULIN DETEMIR 100 UNITS/ML MDV SQ SCH ×2 (06:33→21:09)
[2016-10-10] MEDS: INSULIN SLIDING SCALE (NOVOLOG) 1 VIAL SQ SCH ×4 (06:37→21:10)
[2016-10-10] MEDS ORDERED: VANCOMYCIN 1 GRAM (PRE-DOCKED) 250 ML IVPB ONE (09:41)
--- NOTE | 2016-10-10 10:22 | PN ---
Progress Note (short form) - Note Progress Note: In HD. (+) SOB. No CP. CXR : worse than reported : increasing effusions Right > Left with fluid accumulation in the Right fissure Intake & Output 10/07/16 10/08/16 10/09/16 10/10/16 23:59 23:59 23:59 23:59 Intake Total 350 537 240 0 Output Total 300 Balance 350 237 240 0 Last Vital Signs Temp Pulse Resp BP Pulse Ox 97.8 F 113 H 20 145/98 94 L 10/10/16 05:45 10/10/16 05:45 10/10/16 05:45 10/10/16 05:45 10/09/16 21:00 Active Medications Acetaminophen (Tylenol -) 650 mg PO Q4H PRN PRN Reason: FEVER OR PAIN Last Admin: 10/06/16 21:48 Dose: 650 mg Amlodipine Besylate (Norvasc -) 10 mg PO DAILY [facility] Last Admin: 10/09/16 10:03 Dose: 10 mg Benzocaine/Menthol (Cepacol Lozenge -) 1 each MM Q4H PRN PRN Reason: SORE THROAT Collagenase (Santyl -) 1 applic TP DAILY [facility] Last Admin: 10/09/16 12:06 Dose: 1 applic Furosemide (Lasix -) 100 mg PO DAILY [facility] Heparin Sodium (Porcine) (Heparin -) 5,000 unit SQ TID [facility] Last Admin: 10/10/16 06:32 Dose: 5,000 unit Vancomycin HCl (Vancomycin (Pre-Docked)) 250 mls @ 166.667 mls/hr IVPB ONCE ONE Stop: 10/10/16 11:10 Last Admin: 10/10/16 10:18 Dose: 166.667 mls/hr Insulin Aspart (Novolog Vial Sliding Scale -) 1 vial SQ ACHS AKOSUA PRN Reason: Protocol Last Admin: 10/10/16 06:37 Dose: Not Given Insulin Detemir (Levemir Vial) 14 units SQ AM AKOSUA Last Admin: 10/10/16 06:33 Dose: Not Given Insulin Detemir (Levemir Vial) 14 units SQ HS AKOSUA Last Admin: 10/09/16 22:02 Dose: 14 units Metoprolol Succinate (Toprol Xl -) 50 mg PO HS AKOSUA Last Admin: 06/28/17 22:02 Dose: 50 mg Gen: NAD Heart: S1S2 Lung: Bibasilar rales / rhonchi Abd: soft, nontender Ext: trace edema Laboratory Results - last 24 hr 10/09/16 10/09/16 10/09/16 06:45 10:45 16:12 BUN 15 D Creatinine 2.0 H D POC Glucometer 197 Random Vancomycin 10.543 10/09/16 10/10/16 10/10/16 22:03 06:00 06:36 BUN Creatinine POC Glucometer 370 89 Random Vancomycin 8.674 ASSESSMENT AND PLAN: Diabetic Ketoacidosis resolved Sacral Decubitus Ulcer Infection Polymicrobial Bacteremia r/o Endocarditis Severe Sepsis Lactic Acidosis resolved Acute Severe LV Systolic Dysfunction ESRD on HD HTN CAD COPD - HD for Volume removal - ABX per ID - Local wound care - HD per renal - O2 to keep SpO2 >90% - inhaled bronchodilators PRN Dr Tang
--- NOTE | 2016-10-10 12:58 | PN ---
Progress Note, Physician Chief Complaint: Patient receiving HD. Has some degree of dyspnea. No chest pain The back decubitus is painful Compliance with fluid restriction has not been good. - Current Medication List Current Medications: Active Medications Acetaminophen (Tylenol -) 650 mg PO Q4H PRN PRN Reason: FEVER OR PAIN Last Admin: 10/06/16 21:48 Dose: 650 mg Amlodipine Besylate (Norvasc -) 10 mg PO DAILY [facility] Last Admin: 10/09/16 10:03 Dose: 10 mg Benzocaine/Menthol (Cepacol Lozenge -) 1 each MM Q4H PRN PRN Reason: SORE THROAT Collagenase (Santyl -) 1 applic TP DAILY [facility] Last Admin: 10/09/16 12:06 Dose: 1 applic Furosemide (Lasix -) 100 mg PO DAILY [facility] Heparin Sodium (Porcine) (Heparin -) 5,000 unit SQ TID [facility] Last Admin: 10/10/16 06:32 Dose: 5,000 unit Insulin Aspart (Novolog Vial Sliding Scale -) 1 vial SQ ACHS [facility] PRN Reason: Protocol Last Admin: 10/10/16 06:37 Dose: Not Given Insulin Detemir (Levemir Vial) 14 units SQ AM [facility] Last Admin: 10/10/16 06:33 Dose: Not Given Insulin Detemir (Levemir Vial) 14 units SQ HS [facility] Last Admin: 10/09/16 22:02 Dose: 14 units Metoprolol Succinate (Toprol Xl -) 50 mg PO HS [facility] Last Admin: 10/09/16 22:02 Dose: 50 mg - Objective Vital Signs: Vital Signs Temperature 97.8 F 10/10/16 07:25 Pulse Rate 89 10/10/16 11:09 Respiratory Rate 18 10/10/16 11:09 Blood Pressure 124/59 10/10/16 11:09 O2 Sat by Pulse Oximetry (%) 94 L 10/09/16 21:00 Constitutional: Yes: Mild Distress (pain in the back) HENT: Yes: Normocephalic Neck: Yes: Trachea Midline Cardiovascular: Yes: S1, S2 Respiratory: Yes: Diminished, Rales, Rhonchi Gastrointestinal: Yes: Abdomen, Obese, Other (Huge foul smeiing decubitus in the sacral area.) Musculoskeletal: Yes: Back Pain Extremities: Yes: Other (foot infection/ poly microbial sepsis) Edema: Yes Neurological: Yes: Alert, Oriented Labs: CBC, BMP 10/07/16 06:00 10/09/16 10:45 INR, PTT INR 1.48 (0.82-1.09) H 09/26/16 05:45 Problem List - Problems (1) Polymicrobial bacterial infection Code(s): A49.9 - BACTERIAL INFECTION, UNSPECIFIED (2) CHF (congestive heart failure) Code(s): I50.9 - HEART FAILURE, UNSPECIFIED (3) COPD (chronic obstructive pulmonary disease) Code(s): J44.9 - CHRONIC OBSTRUCTIVE PULMONARY DISEASE, UNSPECIFIED (4) Hyperkalemia Code(s): E87.5 - HYPERKALEMIA (5) Infected decubitus ulcer Code(s): L89.90 - PRESSURE ULCER OF UNSPECIFIED SITE, UNSPECIFIED STAGE (6) Leukocytosis Code(s): D72.829 - ELEVATED WHITE BLOOD CELL COUNT, UNSPECIFIED (7) Renal failure Code(s): N19 - UNSPECIFIED KIDNEY FAILURE (8) Sepsis Code(s): A41.9 - SEPSIS, UNSPECIFIED ORGANISM (9) Anemia Code(s): D64.9 - ANEMIA, UNSPECIFIED Qualifiers: (10) Diabetes Code(s): E11.9 - TYPE 2 DIABETES MELLITUS WITHOUT COMPLICATIONS Qualifiers: (11) End stage kidney disease Code(s): N18.6 - END STAGE RENAL DISEASE Assessment/Plan 66 y/o male with polymicrobial sepsis, from infected Decubitus/ foot infection . The patient has underlying PVD, DM2, ESRD, on HD Tolerating extra HD with UF. Orders reviewed with the RN. Will evaluate for next HD tomorrow morning. Chichi Garcia MD
[2016-10-10] MEDS: FUROSEMIDE 40 MG TABLET (FP) PO SCH (13:39)
[2016-10-10] MEDS: amLODIPine BESYLATE 10 MG TABLET (FP) PO SCH (13:39)
[2016-10-10] MEDS: COLLAGENASE CLOSTRIDIUM HIST. 30 GRAMS TUBE TP SCH ×2 (13:39→15:00)
--- NOTE | 2016-10-10 17:30 | PN ---
Progress Note, Physician History of Present Illness: No complaints Afebrile - Current Medication List Current Medications: Active Medications Acetaminophen (Tylenol -) 650 mg PO Q4H PRN PRN Reason: FEVER OR PAIN Last Admin: 10/06/16 21:48 Dose: 650 mg Amlodipine Besylate (Norvasc -) 10 mg PO DAILY [facility] Last Admin: 10/10/16 13:39 Dose: Not Given Benzocaine/Menthol (Cepacol Lozenge -) 1 each MM Q4H PRN PRN Reason: SORE THROAT Collagenase (Santyl -) 1 applic TP DAILY [facility] Last Admin: 10/10/16 15:00 Dose: 1 applic Furosemide (Lasix -) 100 mg PO DAILY [facility] Last Admin: 10/10/16 13:39 Dose: Not Given Heparin Sodium (Porcine) (Heparin -) 5,000 unit SQ TID [facility] Last Admin: 10/10/16 13:40 Dose: Not Given Insulin Aspart (Novolog Vial Sliding Scale -) 1 vial SQ ACHS [facility] PRN Reason: Protocol Last Admin: 10/10/16 17:16 Dose: Not Given Insulin Detemir (Levemir Vial) 14 units SQ AM [facility] Last Admin: 10/10/16 06:33 Dose: Not Given Insulin Detemir (Levemir Vial) 14 units SQ HS [facility] Last Admin: 10/09/16 22:02 Dose: 14 units Metoprolol Succinate (Toprol Xl -) 50 mg PO HS [facility] Last Admin: 10/09/16 22:02 Dose: 50 mg - Objective Vital Signs: Vital Signs Temperature 98.1 F 10/10/16 15:00 Pulse Rate 100 H 10/10/16 15:00 Respiratory Rate 20 10/10/16 15:00 Blood Pressure 128/76 10/10/16 15:00 O2 Sat by Pulse Oximetry (%) 94 L 10/09/16 21:00 Constitutional: Yes: No Distress Cardiovascular: Yes: Regular Rate and Rhythm, S1, S2 Respiratory: Yes: CTA Bilaterally Gastrointestinal: Yes: Normal Bowel Sounds, Soft. No: Tenderness Extremities: Yes: Other (decreased erythema, posterior R leg) Labs: CBC, BMP 10/07/16 06:00 10/09/16 10:45 INR, PTT INR 1.48 (0.82-1.09) H 09/26/16 05:45 Assessment/Plan Sepsis/ septic shock- improved Polymicrobial bacteremia/ sepsis (MRSA, grpF strep, Bacteroides) S/P debridement of decubitus UTI/ Sepsis secondary to UTI ESRD ? cellulitis posterior R leg- improved Continue vancomycin based on levels Repeat vanco trough am
--- NOTE | 2016-10-10 17:45 | PN ---
Progress Note (short form) - Note Progress Note: SUBJECTIVE: The patient was seen at the bedside, he yelled "get out" Tolerated HD today Current Medications Generic Name Dose Route Start Last Admin Trade Name Silver PRN Reason Stop Dose Admin Acetaminophen 650 mg 10/03/16 13:10 10/06/16 21:48 Tylenol - PO 650 mg Q4H PRN Administration FEVER OR PAIN Amlodipine Besylate 10 mg 10/09/16 10:00 10/10/16 13:39 Norvasc - PO Not Given DAILY AKOSUA Benzocaine/Menthol 1 each 10/03/16 13:10 Cepacol Lozenge - MM Q4H PRN SORE THROAT Collagenase 1 applic 10/04/16 10:00 10/10/16 15:00 Santyl - TP 1 applic DAILY AKOSUA Administration Furosemide 100 mg 10/10/16 10:00 10/10/16 13:39 Lasix - PO Not Given DAILY AKOSUA Heparin Sodium (Porcine) 5,000 unit 10/09/16 14:00 10/10/16 13:40 Heparin - SQ Not Given TID AKOSUA Insulin Aspart 1 vial 10/03/16 16:30 10/10/16 17:16 Novolog Vial Sliding Scale - SQ Not Given ACHS [facility] Protocol Insulin Detemir 14 units 10/04/16 07:00 10/10/16 06:33 Levemir Vial SQ Not Given AM AKOSUA Insulin Detemir 14 units 10/06/16 10:47 10/09/16 22:02 Levemir Vial SQ 14 units HS AKOSUA Administration Metoprolol Succinate 50 mg 10/08/16 18:31 10/09/16 22:02 Toprol Xl - PO 50 mg HS AKOSUA Administration OBJECTIVE: Vital Signs Period Temp Pulse Resp BP Sys/Vogt Pulse Ox Last 24 Hr 97.8 F-99.8 F 78-113 18-20 74-145/38-98 94 Physical Exam Refused CBCD WBC 11.4 K/mm3 (4.0-10.0) H 10/07/16 06:00 RBC 3.94 M/mm3 (4.00-5.60) L 10/07/16 06:00 Hgb 9.0 GM/dL (11.7-16.9) L D 10/07/16 06:00 Hct 29.6 % (35.4-49) L 10/07/16 06:00 MCV 75.1 fl (80-96) L 10/07/16 06:00 MCHC 30.3 g/dl (32.0-35.9) L 10/07/16 06:00 RDW 19.8 % (11.9-15.9) H 10/07/16 06:00 Plt Count 238 K/MM3 (134-434) 10/07/16 06:00 MPV 7.9 fl (7.5-11.1) 10/07/16 06:00 CMP Sodium 136 mmol/L (136-145) 10/09/16 06:45 Potassium 4.5 mmol/L (3.5-5.1) 10/09/16 06:45 Chloride 94 mmol/L (98-107) L 10/09/16 06:45 Carbon Dioxide 31 mmol/L (21-32) 10/09/16 06:45 Anion Gap 11 (8-16) 10/09/16 06:45 BUN 15 mg/dL (7-18) D 10/09/16 10:45 Creatinine 2.0 mg/dL (0.7-1.3) H D 10/09/16 10:45 Creat Clearance w eGFR 8.62 (>60) 10/07/16 06:00 Random Glucose 116 mg/dL (74-106) H D 10/09/16 06:45 Calcium 7.2 mg/dL (8.5-10.1) L 10/09/16 06:45 Total Bilirubin 0.4 mg/dL (0.2-1.0) D 10/07/16 06:00 AST 17 U/L (15-37) D 10/07/16 06:00 ALT 6 U/L (12-78) L D 10/07/16 06:00 Alkaline Phosphatase 70 U/L (45-117) 10/07/16 06:00 Total Protein 6.7 g/dl (6.4-8.2) 10/07/16 06:00 Albumin 1.7 g/dl (3.4-5.0) L 10/07/16 06:00 CARDIAC ENZYMES Creatine Kinase 343 IU/L (39-308) H D 09/23/16 23:30 Troponin I 0.04 ng/ml (0.00-0.05) D 09/23/16 23:30 Microbiology 10/04/16 14:55 Blood - Peripheral Venous Blood Culture - Final NO GROWTH AFTER 5 DAYS INCUBATION 10/04/16 14:50 Blood - Peripheral Venous Blood Culture - Final NO GROWTH AFTER 5 DAYS INCUBATION 10/01/16 19:55 Blood - Peripheral Venous Blood Culture - Final NO GROWTH AFTER 5 DAYS INCUBATION 10/01/16 19:50 Blood - Peripheral Venous Blood Culture - Final NO GROWTH AFTER 5 DAYS INCUBATION 09/27/16 16:30 Decubiti Gram Stain - Final 09/27/16 16:30 Decubiti Wound Culture - Final Morganella Morganii Enterococcus Faecalis Mr S Aureus Vr Ec Faecium 09/27/16 17:20 Blood - Peripheral Venous Blood Culture - Final NO GROWTH AFTER 5 DAYS INCUBATION 09/27/16 17:20 Blood - Peripheral Venous Blood Culture - Final NO GROWTH AFTER 5 DAYS INCUBATION 09/24/16 07:40 Blood - Pre-Dialysis Blood Culture - Final S Aureus Beta Hem Streptococcus Group F Bacteroides Fragilis 09/24/16 07:15 Blood - Pre-Dialysis Blood Culture - Final S Aureus Beta Hem Streptococcus Group F 09/24/16 01:00 Blood - Peripheral Venous Blood Culture - Final Beta Hem Streptococcus Group F Mr S Aureus 09/24/16 00:30 Blood - Peripheral Venous Blood Culture - Final Beta Hem Streptococcus Group F Mr S Aureus 09/24/16 20:45 Stool Salmonella/Shigella Culture - Final NO GROWTH OF SALMONELLA OR SHIGELLA SPECIES OBTAINED 09/24/16 20:45 Stool Campylobacter Culture - Final NO GROWTH OF CAMPYLOBACTER SPECIES OBTAINED 09/24/16 20:45 Stool Yersinia Culture - Final NO GROWTH OF YERSINIA SPECIES OBTAINED 09/24/16 20:45 Stool Vibrio Culture - Final NO GROWTH OF VIBRIO SPECIES OBTAINED 09/24/16 20:45 Stool Escherichia coli 0157 Culture - Final NO GROWTH OF E COLI 0157 OBTAINED 09/24/16 01:20 Urine - Urine Clean Catch Urine Culture - Final Citrobacter Freundii Complex Acinetobacter Baumannii/Haemol 09/24/16 20:45 Stool Clostridium difficile Antigen (JADYN) - Final 09/24/16 20:45 Stool Clostridium difficile Toxin Assay - Final Assessment: This is a 66 year old male with PMHx of ESRD- on HD () with permacath, pending mapping for AV-Fistula, HTN, [place] (01/2016), DM, COPD, Sacral Decubital Ulcers presented with diarrhea, sp fall. He was found to be in DKA, hyperkalemia, and transferred to the ICU for septic shock d/t uti and probable sacral ulcers. Plan: 1) ID: Septic shock 2/2 polymicrobial bacteremia - Vancomycin with HD - ECHO with highly mobile mass consistent with a torn or redundant chordae. A vegetation on the mitral valve cannot be excluded - Cultures as above - Appreciate ID consult Diarrhea - C.diff negative - Stool culture negative Sacral Debuital ulcers - S/p debridement in OR 09/27 - Santyl daily - Appreciate surgery consult 2) Endocrine: DKA - Resolved - BGM ACHS - ISS ACHS - Levemir 14u sq qhs - Levemir 14u sq qam 3) Cardiology: CAD s/p [place] 2015 HTN - Continue Norvasc 4) : ESRD - Tolerated HD today - Lasix 100mg IVPB daily - Appreciate nephrology consult 4) Heme: Anemia 2/2 chronic disease - Monitor H/H 5) F/E/N: - Monitor electrolytes - Renal, diabetic diet 6) Prophylaxis: - Heparin 5,000u sq bid 7) Dipso: - Requires continued inpatient care CODE STATUS: FULL CODE Visit type - Emergency Visit Emergency Visit: Yes ED Registration Date: 09/24/16 Care time: The patient presented to the Emergency Department on the above date and was hospitalized for further evaluation of their emergent condition. - New Patient This patient is new to me today: No - Critical Care Critical Care patient: No
[2016-10-10] MEDS ORDERED: INSULIN (NOVOLOG) ASPART 100 UNITS/ML 10ML VIAL ONE (19:48)
[2016-10-10] MEDS: METOPROLOL SUCCINATE 50 MG TAB.SR.24H (FP) PO SCH (21:08)
[2016-10-10] MEDS: ACETAMINOPHEN 325 MG TABLET (FP) PO PRN (21:15)
[2016-10-11] MEDS: INSULIN DETEMIR 100 UNITS/ML MDV SQ SCH ×2 (06:32→21:08)
[2016-10-11] MEDS: HEPARIN NA (PORCINE) 5,000 UNITS/ML 1ML VIAL SQ SCH ×3 (06:32→21:08)
[2016-10-11] MEDS: INSULIN SLIDING SCALE (NOVOLOG) 1 VIAL SQ SCH ×4 (06:33→21:07)
[2016-10-11] MEDS ORDERED: PT OWN MED DRAWER 7, Y5N ONE ×3 (08:53→17:25)
[2016-10-11] MEDS: FUROSEMIDE 40 MG TABLET (FP) PO SCH (09:01)
[2016-10-11] MEDS: amLODIPine BESYLATE 10 MG TABLET (FP) PO SCH (09:02)
--- NOTE | 2016-10-11 11:23 | PN ---
Progress Note (short form) - Note Progress Note: SUBJECTIVE: The patient was seen at the bedside, he yelled "get out" Awaiting clearance from nephrology for discharge Current Medications Generic Name Dose Route Start Last Admin Trade Name Silver PRN Reason Stop Dose Admin Acetaminophen 650 mg 10/03/16 13:10 10/10/16 21:15 Tylenol - PO 650 mg Q4H PRN Administration FEVER OR PAIN Amlodipine Besylate 10 mg 10/09/16 10:00 10/11/16 09:02 Norvasc - PO 10 mg DAILY AKOSUA Administration Benzocaine/Menthol 1 each 10/03/16 13:10 Cepacol Lozenge - MM Q4H PRN SORE THROAT Collagenase 1 applic 10/04/16 10:00 10/10/16 15:00 Santyl - TP 1 applic DAILY AKOSUA Administration Furosemide 100 mg 10/10/16 10:00 10/11/16 09:01 Lasix - PO 100 mg DAILY AKOSUA Administration Heparin Sodium (Porcine) 5,000 unit 10/09/16 14:00 10/11/16 06:32 Heparin - SQ 5,000 unit TID AKOSUA Administration Insulin Aspart 1 vial 10/03/16 16:30 10/11/16 06:33 Novolog Vial Sliding Scale - SQ Not Given ACHS [facility] Protocol Insulin Detemir 14 units 10/04/16 07:00 10/11/16 06:32 Levemir Vial SQ 14 units AM [facility]OS[facility] Administration Insulin Detemir 14 units 10/06/16 10:47 10/10/16 21:09 Levemir Vial SQ 14 units HS AKOSUA Administration Metoprolol Succinate 50 mg 10/08/16 18:31 10/10/16 21:08 Toprol Xl - PO 50 mg HS AKOSUA Administration OBJECTIVE: Vital Signs Period Temp Pulse Resp BP Sys/Vogt Pulse Ox Last 24 Hr 97.9 F-100.1 F 100-109 20-20 116-139/48-76 95 Physical Exam Refused CBCD WBC 11.4 K/mm3 (4.0-10.0) H 10/07/16 06:00 RBC 3.94 M/mm3 (4.00-5.60) L 10/07/16 06:00 Hgb 9.0 GM/dL (11.7-16.9) L D 10/07/16 06:00 Hct 29.6 % (35.4-49) L 10/07/16 06:00 MCV 75.1 fl (80-96) L 10/07/16 06:00 MCHC 30.3 g/dl (32.0-35.9) L 10/07/16 06:00 RDW 19.8 % (11.9-15.9) H 10/07/16 06:00 Plt Count 238 K/MM3 (134-434) 10/07/16 06:00 MPV 7.9 fl (7.5-11.1) 10/07/16 06:00 CMP Sodium 136 mmol/L (136-145) 10/09/16 06:45 Potassium 4.5 mmol/L (3.5-5.1) 10/09/16 06:45 Chloride 94 mmol/L (98-107) L 10/09/16 06:45 Carbon Dioxide 31 mmol/L (21-32) 10/09/16 06:45 Anion Gap 11 (8-16) 10/09/16 06:45 BUN 15 mg/dL (7-18) D 10/09/16 10:45 Creatinine 2.0 mg/dL (0.7-1.3) H D 10/09/16 10:45 Creat Clearance w eGFR 8.62 (>60) 10/07/16 06:00 Random Glucose 477 mg/dL (74-106) H* D 10/10/16 21:35 Calcium 7.2 mg/dL (8.5-10.1) L 10/09/16 06:45 Total Bilirubin 0.4 mg/dL (0.2-1.0) D 10/07/16 06:00 AST 17 U/L (15-37) D 10/07/16 06:00 ALT 6 U/L (12-78) L D 10/07/16 06:00 Alkaline Phosphatase 70 U/L (45-117) 10/07/16 06:00 Total Protein 6.7 g/dl (6.4-8.2) 10/07/16 06:00 Albumin 1.7 g/dl (3.4-5.0) L 10/07/16 06:00 CARDIAC ENZYMES Creatine Kinase 343 IU/L (39-308) H D 09/23/16 23:30 Troponin I 0.04 ng/ml (0.00-0.05) D 09/23/16 23:30 Microbiology 10/04/16 14:55 Blood - Peripheral Venous Blood Culture - Final NO GROWTH AFTER 5 DAYS INCUBATION 10/04/16 14:50 Blood - Peripheral Venous Blood Culture - Final NO GROWTH AFTER 5 DAYS INCUBATION 10/01/16 19:55 Blood - Peripheral Venous Blood Culture - Final NO GROWTH AFTER 5 DAYS INCUBATION 10/01/16 19:50 Blood - Peripheral Venous Blood Culture - Final NO GROWTH AFTER 5 DAYS INCUBATION 09/27/16 16:30 Decubiti Gram Stain - Final 09/27/16 16:30 Decubiti Wound Culture - Final Morganella Morganii Enterococcus Faecalis Mr S Aureus Vr Ec Faecium 09/27/16 17:20 Blood - Peripheral Venous Blood Culture - Final NO GROWTH AFTER 5 DAYS INCUBATION 09/27/16 17:20 Blood - Peripheral Venous Blood Culture - Final NO GROWTH AFTER 5 DAYS INCUBATION 09/24/16 07:40 Blood - Pre-Dialysis Blood Culture - Final Mr S Aureus Beta Hem Streptococcus Group F Bacteroides Fragilis 09/24/16 07:15 Blood - Pre-Dialysis Blood Culture - Final Mr S Aureus Beta Hem Streptococcus Group F 09/24/16 01:00 Blood - Peripheral Venous Blood Culture - Final Beta Hem Streptococcus Group F Mr S Aureus 09/24/16 00:30 Blood - Peripheral Venous Blood Culture - Final Beta Hem Streptococcus Group F Mr S Aureus 09/24/16 20:45 Stool Salmonella/Shigella Culture - Final NO GROWTH OF SALMONELLA OR SHIGELLA SPECIES OBTAINED 09/24/16 20:45 Stool Campylobacter Culture - Final NO GROWTH OF CAMPYLOBACTER SPECIES OBTAINED 09/24/16 20:45 Stool Yersinia Culture - Final NO GROWTH OF YERSINIA SPECIES OBTAINED 09/24/16 20:45 Stool Vibrio Culture - Final NO GROWTH OF VIBRIO SPECIES OBTAINED 09/24/16 20:45 Stool Escherichia coli 0157 Culture - Final NO GROWTH OF E COLI 0157 OBTAINED 09/24/16 01:20 Urine - Urine Clean Catch Urine Culture - Final Citrobacter Freundii Complex Acinetobacter Baumannii/Haemol 09/24/16 20:45 Stool Clostridium difficile Antigen (JADYN) - Final 09/24/16 20:45 Stool Clostridium difficile Toxin Assay - Final Assessment: This is a 66 year old male with PMHx of ESRD- on HD () with permacath, pending mapping for AV-Fistula, HTN, [place] (01/2016), DM, COPD, Sacral Decubital Ulcers presented with diarrhea, sp fall. He was found to be in DKA, hyperkalemia, and transferred to the ICU for septic shock d/t uti and probable sacral ulcers. Plan: 1) ID: Septic shock 2/2 polymicrobial bacteremia - Vancomycin with HD - ECHO with highly mobile mass consistent with a torn or redundant chordae. A vegetation on the mitral valve cannot be excluded - Cultures as above - Appreciate ID consult Diarrhea - C.diff negative - Stool culture negative Sacral Debuital ulcers - S/p debridement in OR 09/27 - Santyl daily - Appreciate surgery consult 2) Endocrine: DKA - Resolved - BGM ACHS - ISS ACHS - Levemir 14u sq qhs - Levemir 14u sq qam 3) Cardiology: CAD s/p [place] 2015 HTN - Continue Norvasc 4) : ESRD - Tolerated HD today - Lasix 100mg IVPB daily - Appreciate nephrology consult 4) Heme: Anemia 2/2 chronic disease - Monitor H/H 5) F/E/N: - Monitor electrolytes - Renal, diabetic diet 6) Prophylaxis: - Heparin 5,000u sq bid 7) Dipso: - Requires continued inpatient care CODE STATUS: FULL CODE Visit type - Emergency Visit Emergency Visit: Yes ED Registration Date: 09/24/16 Care time: The patient presented to the Emergency Department on the above date and was hospitalized for further evaluation of their emergent condition. - New Patient This patient is new to me today: No - Critical Care Critical Care patient: No
[2016-10-11] MEDS: COLLAGENASE CLOSTRIDIUM HIST. 30 GRAMS TUBE TP SCH (11:24)
--- NOTE | 2016-10-11 12:20 | PN ---
Progress Note, Physician Chief Complaint: Patient seen in his bed. Reports no new issues. On IV Vancomycin. The sacral decubitus is extensive and will require prolonged wound care. Denies any fever, chills or rigor. The last blood culture was positive on 09/25/19. History of Present Illness: Had uneventful dialysis yesterday. In bed. Has been getting IV Abx on dialysis. - Current Medication List Current Medications: Active Medications Acetaminophen (Tylenol -) 650 mg PO Q4H PRN PRN Reason: FEVER OR PAIN Last Admin: 10/10/16 21:15 Dose: 650 mg Amlodipine Besylate (Norvasc -) 10 mg PO DAILY [facility] Last Admin: 10/11/16 09:02 Dose: 10 mg Benzocaine/Menthol (Cepacol Lozenge -) 1 each MM Q4H PRN PRN Reason: SORE THROAT Collagenase (Santyl -) 1 applic TP DAILY [facility] Last Admin: 10/11/16 11:24 Dose: 1 applic Furosemide (Lasix -) 100 mg PO DAILY [facility] Last Admin: 10/11/16 09:01 Dose: 100 mg Heparin Sodium (Porcine) (Heparin -) 5,000 unit SQ TID [facility] Last Admin: 10/11/16 06:32 Dose: 5,000 unit Insulin Aspart (Novolog Vial Sliding Scale -) 1 vial SQ ACHS [facility] PRN Reason: Protocol Last Admin: 10/11/16 12:09 Dose: 2 units Insulin Detemir (Levemir Vial) 14 units SQ AM [facility] Last Admin: 10/11/16 06:32 Dose: 14 units Insulin Detemir (Levemir Vial) 14 units SQ HS [facility] Last Admin: 10/10/16 21:09 Dose: 14 units Metoprolol Succinate (Toprol Xl -) 50 mg PO HS [facility] Last Admin: 10/10/16 21:08 Dose: 50 mg - Objective Vital Signs: Vital Signs Temperature 98.9 F 10/11/16 08:34 Pulse Rate 102 H 10/11/16 08:34 Respiratory Rate 20 10/11/16 08:34 Blood Pressure 139/72 10/11/16 08:34 O2 Sat by Pulse Oximetry (%) 95 10/10/16 20:34 Constitutional: Yes: No Distress, Calm Eyes: Yes: Conjunctiva Clear HENT: Yes: Normocephalic Neck: Yes: Trachea Midline Cardiovascular: Yes: S1, S2 Respiratory: Yes: CTA Bilaterally Gastrointestinal: Yes: Normal Bowel Sounds, Abdomen, Obese Genitourinary: No: CVA Tenderness - Left, CVA Tenderness - Right Musculoskeletal: Yes: Back Pain Edema: Yes Integumentary: Yes: Pressure Ulcer (extensive presacral decubitus, foul smelling ) Neurological: Yes: Oriented Labs: CBC, BMP 10/07/16 06:00 10/10/16 21:35 INR, PTT INR 1.48 (0.82-1.09) H 09/26/16 05:45 Problem List - Problems (1) Polymicrobial bacterial infection Code(s): A49.9 - BACTERIAL INFECTION, UNSPECIFIED (2) CHF (congestive heart failure) Code(s): I50.9 - HEART FAILURE, UNSPECIFIED (3) COPD (chronic obstructive pulmonary disease) Code(s): J44.9 - CHRONIC OBSTRUCTIVE PULMONARY DISEASE, UNSPECIFIED (4) Hyperkalemia Code(s): E87.5 - HYPERKALEMIA (5) Infected decubitus ulcer Code(s): L89.90 - PRESSURE ULCER OF UNSPECIFIED SITE, UNSPECIFIED STAGE (6) Leukocytosis Code(s): D72.829 - ELEVATED WHITE BLOOD CELL COUNT, UNSPECIFIED (7) Renal failure Code(s): N19 - UNSPECIFIED KIDNEY FAILURE (8) Sepsis Code(s): A41.9 - SEPSIS, UNSPECIFIED ORGANISM (9) Anemia Code(s): D64.9 - ANEMIA, UNSPECIFIED Qualifiers: (10) Diabetes Code(s): E11.9 - TYPE 2 DIABETES MELLITUS WITHOUT COMPLICATIONS Qualifiers: (11) End stage kidney disease Code(s): N18.6 - END STAGE RENAL DISEASE Assessment/Plan 66 y/o male with polymicrobial sepsis, from infected Decubitus/ foot infection . The patient has underlying PVD, DM2, ESRD, on HD Discussed with the hospitalist. While the patient requires IV antibiotics, such could be arranged as outpatient , especially since he is on dialysi, and he receives the same post dialysis. He needs would care, and should be placed in a SNF. If he is discharged, he will come for dialysis in [facility] tomorrow for his dialysis. If he is not discharged, he will be dialyzed in hospital . Thank you. Chichi Garcia MD
--- NOTE | 2016-10-11 13:53 | PN ---
Progress Note, Physician History of Present Illness: No complaints Afebrile Tolerating antibiotics - Current Medication List Current Medications: Active Medications Acetaminophen (Tylenol -) 650 mg PO Q4H PRN PRN Reason: FEVER OR PAIN Last Admin: 10/10/16 21:15 Dose: 650 mg Amlodipine Besylate (Norvasc -) 10 mg PO DAILY [facility] Last Admin: 10/11/16 09:02 Dose: 10 mg Benzocaine/Menthol (Cepacol Lozenge -) 1 each MM Q4H PRN PRN Reason: SORE THROAT Collagenase (Santyl -) 1 applic TP DAILY [facility] Last Admin: 10/11/16 11:24 Dose: 1 applic Epoetin Neftaly (Procrit -) 10,000 unit SQ ONCE ONE Stop: 10/12/16 12:32 Furosemide (Lasix -) 100 mg PO DAILY [facility] Last Admin: 10/11/16 09:01 Dose: 100 mg Heparin Sodium (Porcine) (Heparin -) 5,000 unit SQ TID [facility] Last Admin: 10/11/16 06:32 Dose: 5,000 unit Insulin Aspart (Novolog Vial Sliding Scale -) 1 vial SQ ACHS [facility] PRN Reason: Protocol Last Admin: 10/11/16 12:09 Dose: 2 units Insulin Detemir (Levemir Vial) 14 units SQ AM [facility] Last Admin: 10/11/16 06:32 Dose: 14 units Insulin Detemir (Levemir Vial) 14 units SQ HS [facility] Last Admin: 10/10/16 21:09 Dose: 14 units Metoprolol Succinate (Toprol Xl -) 50 mg PO HS [facility] Last Admin: 10/10/16 21:08 Dose: 50 mg - Objective Vital Signs: Vital Signs Temperature 98.9 F 10/11/16 08:34 Pulse Rate 102 H 10/11/16 08:34 Respiratory Rate 20 10/11/16 08:34 Blood Pressure 139/72 10/11/16 08:34 O2 Sat by Pulse Oximetry (%) 95 10/10/16 20:34 Constitutional: Yes: No Distress Eyes: Yes: Conjunctiva Clear Cardiovascular: Yes: Regular Rate and Rhythm, S1, S2 Respiratory: Yes: CTA Bilaterally Gastrointestinal: Yes: Normal Bowel Sounds, Soft. No: Tenderness Extremities: Yes: Other (erythema/ induration R calf area almost all resolved) Labs: CBC, BMP 10/07/16 06:00 10/10/16 21:35 INR, PTT INR 1.48 (0.82-1.09) H 09/26/16 05:45 Assessment/Plan Sepsis/ septic shock- resolved Polymicrobial bacteremia/ sepsis (MRSA, grpF strep, Bacteroides) S/P debridement of decubitus UTI/ Sepsis secondary to UTI ESRD ? cellulitis posterior R leg- improved Continue vancomycin at HD Needs additional 11 days ( Total w4 after last + BC on 09/24 Repeat vanco trough at HD
[2016-10-11] MEDS: ACETAMINOPHEN 325 MG TABLET (FP) PO PRN (14:27)
[2016-10-11] MEDS ORDERED: INSULIN (NOVOLOG) ASPART 100 UNITS/ML 10ML VIAL ONE ×2 (17:26→20:36)
[2016-10-11] MEDS: METOPROLOL SUCCINATE 50 MG TAB.SR.24H (FP) PO SCH (21:07)
[2016-10-12] MEDS: ACETAMINOPHEN 325 MG TABLET (FP) PO PRN (00:04)
[2016-10-12] MEDS: INSULIN DETEMIR 100 UNITS/ML MDV SQ SCH ×2 (06:22→23:22)
[2016-10-12] MEDS: HEPARIN NA (PORCINE) 5,000 UNITS/ML 1ML VIAL SQ SCH ×3 (06:22→23:22)
[2016-10-12] MEDS: INSULIN SLIDING SCALE (NOVOLOG) 1 VIAL SQ SCH ×4 (06:23→23:22)
[2016-10-12] MEDS ORDERED: EPOETIN ALFA 10,000 UNIT/1 ML VIAL IVPUSH ONE (09:00)
[2016-10-12] MEDS: amLODIPine BESYLATE 10 MG TABLET (FP) PO SCH (11:33)
[2016-10-12] MEDS: FUROSEMIDE 40 MG TABLET (FP) PO SCH (11:33)
[2016-10-12] MEDS: COLLAGENASE CLOSTRIDIUM HIST. 30 GRAMS TUBE TP SCH (11:34)
--- NOTE | 2016-10-12 11:47 | PN ---
Physical Exam: SUBJECTIVE: Patient seen and examined. His wounds are being cleaned, he says he doesn't feel good, will not specify. Events: - HD catheter malfunction, unable to complete HD OBJECTIVE: Vital Signs Period Temp Pulse Resp BP Sys/Vogt Pulse Ox Last 24 Hr 98.1 F-98.9 F 92-104 18-20 92-132/52-82 99 PE Neuro: alert, awake, cn 2-12intact Pulm CTAB CV: s1 s2 regularly irregular rhythm Abd: s nt nd + bs Ext: RLE calf erythema- trace to mild skin: sacral wound x3 deep, necrotic x1, slough Access: RCW permacath Active Medications Generic Name Dose Route Start Last Admin Trade Name Freq PRN Reason Stop Dose Admin Acetaminophen 650 mg 10/03/16 13:10 10/12/16 00:04 Tylenol - PO 650 mg Q4H PRN Administration FEVER OR PAIN Amlodipine Besylate 10 mg 10/09/16 10:00 10/12/16 11:33 Norvasc - PO 10 mg DAILY AKOSUA Administration Benzocaine/Menthol 1 each 10/03/16 13:10 Cepacol Lozenge - MM Q4H PRN SORE THROAT Collagenase 1 applic 10/04/16 10:00 10/12/16 11:34 Santyl - TP 1 applic DAILY AKOSUA Administration Furosemide 100 mg 10/10/16 10:00 10/12/16 11:33 Lasix - PO 100 mg DAILY AKOSUA Administration Heparin Sodium (Porcine) 5,000 unit 10/09/16 14:00 10/12/16 06:22 Heparin - SQ 5,000 unit TID AKOSUA Administration Insulin Aspart 1 vial 10/03/16 16:30 10/12/16 11:40 Novolog Vial Sliding Scale - SQ 4 units ACHS AKOSUA Administration Protocol Insulin Detemir 14 units 10/04/16 07:00 10/12/16 06:22 Levemir Vial SQ 14 units AM [facility] Administration Insulin Detemir 14 units 10/06/16 10:47 10/11/16 21:08 Levemir Vial SQ 14 units HS AKOSUA Administration Metoprolol Succinate 50 mg 10/08/16 18:31 10/11/16 21:07 Toprol Xl - PO 50 mg HS AKOSUA Administration Assessment: 66 year old male with PMHx of ESRD- on HD (//Fri) with permacath , pending mapping for AV-Fistula, HTN, [place] (01/2016), DM, COPD, Sacral Decubital Ulcers presented with diarrhea, sp fall. He was found to be in DKA (resolved), hyperkalemia, and transferred to the ICU for septic shock d/t uti and probable sacral ulcers, now s/p debridment. Plan 1. Septic shock 2/2 polymicrobial bacteremia (MRSA/STREP group F/bacteriosides) - Vancomycin with HD for 11 more day from 10/11 - Vanco level with HD - Goal 15 2. ESRD on chronic HD - Unable to complete HD today due to catheter issues - D/w Dr. Plasencia, will see pt, today was an extra HD day - Lasix 100mg daily 3. DM II - Levemir 16units AM - Levemir 12units HS - ISS, BGM ACHS 3. RLE erythema, warmth - Resolving 4. Sacral debuital ulcers - S/p debridement in OR 09/27 - Santyl dressing changes daily 5. CAD s/p [place] 2015 - Metoprolol xl 50mg HS 6. HTN - BP controlled - Norvasc 10mg daily - BB as above 7. DKA with metabolic and lactic acidosis - Resolved 8. BPH - Resume Proscar 9. PPX - Heparin 5,000u sq TID Visit type - Emergency Visit Emergency Visit: Yes ED Registration Date: 09/24/16 Care time: The patient presented to the Emergency Department on the above date and was hospitalized for further evaluation of their emergent condition. - New Patient This patient is new to me today: No - Critical Care Critical Care patient: No
--- NOTE | 2016-10-12 13:03 | PN ---
Progress Note, Physician Chief Complaint: Patient seen in his bed. Had malfunction of the Permacath almost towards the end of dialysis. ? Positional. Dialysis terminated. If the problem persists, will need to have vascular evaluation. History of Present Illness: HD earlier today. The patient s/p Polymicrobial sepsis due to foot and sacral decubitus. On IV Vancomycin. - Current Medication List Current Medications: Active Medications Acetaminophen (Tylenol -) 650 mg PO Q4H PRN PRN Reason: FEVER OR PAIN Last Admin: 10/12/16 00:04 Dose: 650 mg Amlodipine Besylate (Norvasc -) 10 mg PO DAILY [facility] Last Admin: 10/12/16 11:33 Dose: 10 mg Benzocaine/Menthol (Cepacol Lozenge -) 1 each MM Q4H PRN PRN Reason: SORE THROAT Collagenase (Santyl -) 1 applic TP DAILY [facility] Last Admin: 10/12/16 11:34 Dose: 1 applic Furosemide (Lasix -) 100 mg PO DAILY [facility] Last Admin: 10/12/16 11:33 Dose: 100 mg Heparin Sodium (Porcine) (Heparin -) 5,000 unit SQ TID [facility] Last Admin: 10/12/16 06:22 Dose: 5,000 unit Insulin Aspart (Novolog Vial Sliding Scale -) 1 vial SQ ACHS [facility] PRN Reason: Protocol Last Admin: 10/12/16 11:40 Dose: 4 units Insulin Detemir (Levemir Vial) 14 units SQ AM [facility] Last Admin: 10/12/16 06:22 Dose: 14 units Insulin Detemir (Levemir Vial) 14 units SQ HS [facility] Last Admin: 10/11/16 21:08 Dose: 14 units Metoprolol Succinate (Toprol Xl -) 50 mg PO HS [facility] Last Admin: 10/11/16 21:07 Dose: 50 mg - Objective Vital Signs: Vital Signs Temperature 98.2 F 10/12/16 10:00 Pulse Rate 98 H 10/12/16 10:00 Respiratory Rate 20 10/12/16 10:00 Blood Pressure 128/74 10/12/16 10:00 O2 Sat by Pulse Oximetry (%) 99 10/11/16 19:55 Constitutional: Yes: Well Nourished, Calm Eyes: Yes: Conjunctiva Clear Cardiovascular: Yes: S1, S2 Respiratory: Yes: CTA Bilaterally. No: Rales, Rhonchi Gastrointestinal: Yes: Normal Bowel Sounds, Soft Labs: CBC, BMP 10/07/16 06:00 10/10/16 21:35 INR, PTT INR 1.48 (0.82-1.09) H 09/26/16 05:45 Problem List - Problems (1) Polymicrobial bacterial infection Code(s): A49.9 - BACTERIAL INFECTION, UNSPECIFIED (2) CHF (congestive heart failure) Code(s): I50.9 - HEART FAILURE, UNSPECIFIED (3) COPD (chronic obstructive pulmonary disease) Code(s): J44.9 - CHRONIC OBSTRUCTIVE PULMONARY DISEASE, UNSPECIFIED (4) Hyperkalemia Code(s): E87.5 - HYPERKALEMIA (5) Infected decubitus ulcer Code(s): L89.90 - PRESSURE ULCER OF UNSPECIFIED SITE, UNSPECIFIED STAGE (6) Leukocytosis Code(s): D72.829 - ELEVATED WHITE BLOOD CELL COUNT, UNSPECIFIED (7) Renal failure Code(s): N19 - UNSPECIFIED KIDNEY FAILURE (8) Sepsis Code(s): A41.9 - SEPSIS, UNSPECIFIED ORGANISM (9) Anemia Code(s): D64.9 - ANEMIA, UNSPECIFIED Qualifiers: (10) Diabetes Code(s): E11.9 - TYPE 2 DIABETES MELLITUS WITHOUT COMPLICATIONS Qualifiers: (11) End stage kidney disease Code(s): N18.6 - END STAGE RENAL DISEASE Assessment/Plan 66 y/o male with polymicrobial sepsis, from infected Decubitus/ foot infection . The patient has underlying PVD, DM2, ESRD, on HD While the patient requires IV antibiotics, such could be arranged as outpatient , especially since he is on dialysis, and he receives the same post dialysis. He needs wound care, and should be placed in a SNF. If the catheter malfunction persists, will need Vascular evaluation. Thank you. Chichi Garcia MD
[2016-10-12] MEDS: METOPROLOL SUCCINATE 50 MG TAB.SR.24H (FP) PO SCH (23:22)
[2016-10-13] MEDS: INSULIN SLIDING SCALE (NOVOLOG) 1 VIAL SQ SCH ×4 (06:15→21:42)
[2016-10-13] MEDS: INSULIN DETEMIR 100 UNITS/ML MDV SQ SCH ×2 (06:16→21:41)
[2016-10-13] MEDS: HEPARIN NA (PORCINE) 5,000 UNITS/ML 1ML VIAL SQ SCH ×3 (06:16→21:41)
[2016-10-13] MEDS: FINASTERIDE 5 MG TABLET (FP) PO SCH (11:32)
[2016-10-13] MEDS: FUROSEMIDE 40 MG TABLET (FP) PO SCH (11:32)
[2016-10-13] MEDS: amLODIPine BESYLATE 10 MG TABLET (FP) PO SCH (11:32)
[2016-10-13] MEDS: COLLAGENASE CLOSTRIDIUM HIST. 30 GRAMS TUBE TP SCH (11:33)
--- NOTE | 2016-10-13 16:06 | PN ---
Progress Note, Physician Chief Complaint: Patient seen in his bed. Stable. No new complaints. The sacral decubitus is packed and dressed History of Present Illness: HD earlier today. The patient s/p Polymicrobial sepsis due to foot and sacral decubitus. On IV Vancomycin. Did not get Vancomycin yesterday. Will do dialysis tomorrow, and redose Vancomycin - Current Medication List Current Medications: Active Medications Acetaminophen (Tylenol -) 650 mg PO Q4H PRN PRN Reason: FEVER OR PAIN Last Admin: 10/12/16 00:04 Dose: 650 mg Amlodipine Besylate (Norvasc -) 10 mg PO DAILY [facility] Last Admin: 10/13/16 11:32 Dose: 10 mg Benzocaine/Menthol (Cepacol Lozenge -) 1 each MM Q4H PRN PRN Reason: SORE THROAT Collagenase (Santyl -) 1 applic TP DAILY [facility] Last Admin: 10/13/16 11:33 Dose: 1 applic Finasteride (Proscar -) 5 mg PO DAILY [facility] Last Admin: 10/13/16 11:32 Dose: 5 mg Furosemide (Lasix -) 100 mg PO DAILY [facility] Last Admin: 10/13/16 11:32 Dose: 100 mg Heparin Sodium (Porcine) (Heparin -) 5,000 unit SQ TID [facility] Last Admin: 10/13/16 14:20 Dose: 5,000 unit Insulin Aspart (Novolog Vial Sliding Scale -) 1 vial SQ ACHS [facility] PRN Reason: Protocol Last Admin: 10/13/16 11:39 Dose: 6 units Insulin Detemir (Levemir Vial) 14 units SQ AM [facility] Last Admin: 10/13/16 06:16 Dose: 14 units Insulin Detemir (Levemir Vial) 14 units SQ HS [facility] Last Admin: 10/12/16 23:22 Dose: Not Given Metoprolol Succinate (Toprol Xl -) 50 mg PO HS [facility] Last Admin: 10/12/16 23:22 Dose: 50 mg - Objective Vital Signs: Vital Signs Temperature 97 F L 10/13/16 15:24 Pulse Rate 88 10/13/16 15:24 Respiratory Rate 20 10/13/16 15:24 Blood Pressure 116/72 10/13/16 09:40 O2 Sat by Pulse Oximetry (%) 100 10/13/16 09:00 Constitutional: Yes: Calm, Anxious HENT: Yes: Atraumatic Neck: Yes: Trachea Midline Cardiovascular: Yes: S1, S2 Respiratory: Yes: CTA Bilaterally, Diminished, Rales Gastrointestinal: Yes: Normal Bowel Sounds, Abdomen, Obese Musculoskeletal: Yes: Back Pain Extremities: Yes: Delayed Capillary Refill, Other (ulcer) Labs: CBC, BMP 10/07/16 06:00 10/10/16 21:35 INR, PTT INR 1.48 (0.82-1.09) H 09/26/16 05:45 Problem List - Problems (1) Polymicrobial bacterial infection Code(s): A49.9 - BACTERIAL INFECTION, UNSPECIFIED (2) CHF (congestive heart failure) Code(s): I50.9 - HEART FAILURE, UNSPECIFIED (3) COPD (chronic obstructive pulmonary disease) Code(s): J44.9 - CHRONIC OBSTRUCTIVE PULMONARY DISEASE, UNSPECIFIED (4) Hyperkalemia Code(s): E87.5 - HYPERKALEMIA (5) Infected decubitus ulcer Code(s): L89.90 - PRESSURE ULCER OF UNSPECIFIED SITE, UNSPECIFIED STAGE (6) Leukocytosis Code(s): D72.829 - ELEVATED WHITE BLOOD CELL COUNT, UNSPECIFIED (7) Renal failure Code(s): N19 - UNSPECIFIED KIDNEY FAILURE (8) Sepsis Code(s): A41.9 - SEPSIS, UNSPECIFIED ORGANISM (9) Anemia Code(s): D64.9 - ANEMIA, UNSPECIFIED Qualifiers: (10) Diabetes Code(s): E11.9 - TYPE 2 DIABETES MELLITUS WITHOUT COMPLICATIONS Qualifiers: (11) End stage kidney disease Code(s): N18.6 - END STAGE RENAL DISEASE Assessment/Plan 66 y/o male with polymicrobial sepsis, from infected Decubitus/ foot infection . The patient has underlying PVD, DM2, ESRD, on HD Had some catheter malfunction yesterday. Will do next dialysis tomorrow. Redose Vancomycin If the catheter malfunction persists, will need Vascular evaluation. Thank you. Chichi Garcia MD
--- NOTE | 2016-10-13 16:26 | PN ---
Physical Exam: SUBJECTIVE: Patient seen and examined. He is sitting at edge of bed, discussed if improved with PT he could go home with [place] sisters. OBJECTIVE: Vital Signs Period Temp Pulse Resp BP Sys/Vogt Pulse Ox Last 24 Hr 97 F-98.1 F 82-111 20-20 116-154/64-72 98-100 PE Neuro: alert, awake, cn 2-12intact Pulm CTAB CV: s1 s2 regularly irregular rhythm Abd: s nt nd + bs Ext: b/l +1 pitting edema skin: sacral wound x3 deep, necrotic x1, slough- packed Access: RCW permacath Laboratory Results - last 24 hr 10/13/16 10/13/16 06:14 11:35 POC Glucometer 252 286 Active Medications Generic Name Dose Route Start Last Admin Trade Name Freq PRN Reason Stop Dose Admin Acetaminophen 650 mg 10/03/16 13:10 10/12/16 00:04 Tylenol - PO 650 mg Q4H PRN Administration FEVER OR PAIN Amlodipine Besylate 10 mg 10/09/16 10:00 10/13/16 11:32 Norvasc - PO 10 mg DAILY [facility] Administration Benzocaine/Menthol 1 each 10/03/16 13:10 Cepacol Lozenge - MM Q4H PRN SORE THROAT Collagenase 1 applic 10/04/16 10:00 10/13/16 11:33 Santyl - TP 1 applic DAILY [facility] Administration Epoetin Neftaly 10,000 unit 10/14/16 16:10 Procrit - SQ 10/14/16 16:11 ONCE ONE Finasteride 5 mg 10/13/16 10:00 10/13/16 11:32 Proscar - PO 5 mg DAILY [facility] Administration Furosemide 100 mg 10/10/16 10:00 10/13/16 11:32 Lasix - PO 100 mg DAILY [facility] Administration Heparin Sodium (Porcine) 5,000 unit 10/09/16 14:00 10/13/16 14:20 Heparin - SQ 5,000 unit TID [facility] Administration Insulin Aspart 1 vial 10/03/16 16:30 10/13/16 11:39 Novolog Vial Sliding Scale - SQ 6 units ACHS [facility] Administration Protocol Insulin Detemir 14 units 10/04/16 07:00 10/13/16 06:16 Levemir Vial SQ 14 units AM [facility] Administration Insulin Detemir 14 units 10/06/16 10:47 10/12/16 23:22 Levemir Vial SQ Not Given HS [facility] Metoprolol Succinate 50 mg 10/08/16 18:31 10/12/16 23:22 Toprol Xl - PO 50 mg HS [facility] Administration Assessment: 66 year old male with PMHx of ESRD- on HD (//Fri) with permacath , pending mapping for AV-Fistula, HTN, [place] (01/2016), DM, COPD, Sacral Decubital Ulcers presented with diarrhea, sp fall. He was found to be in DKA (resolved), hyperkalemia, and transferred to the ICU for septic shock d/t uti and probable sacral ulcers, now s/p debridment. Plan 1. Septic shock 2/2 polymicrobial bacteremia (MRSA/STREP group F/bacteriosides) - Vancomycin with HD for 11 more day from 10/11 - Did not receive vanco yesterday, HD cut short - Will be dosed with HD tomorrow - Goal 15 2. ESRD on chronic HD - HD tomorrow - Lasix 100mg daily 3. DM II - Levemir 16units AM - Levemir 12units HS - ISS, BGM ACHS 4. RLE erythema, warmth - Resolving 5. Sacral debuital ulcers - S/p debridement in OR 09/27 - Santyl dressing changes daily 6. CAD s/p [place] 2015 - Metoprolol xl 50mg HS 7. HTN - BP controlled - Norvasc 10mg daily - BB as above 8. DKA with metabolic and lactic acidosis - Resolved 9. BPH - Daily Proscar 10. PPX - Heparin 5,000u sq TID Visit type - Emergency Visit Emergency Visit: Yes ED Registration Date: 09/24/16 Care time: The patient presented to the Emergency Department on the above date and was hospitalized for further evaluation of their emergent condition. - New Patient This patient is new to me today: No - Critical Care Critical Care patient: No
[2016-10-13] MEDS: METOPROLOL SUCCINATE 50 MG TAB.SR.24H (FP) PO SCH (21:40)
[2016-10-14] MEDS: HEPARIN NA (PORCINE) 5,000 UNITS/ML 1ML VIAL SQ SCH ×3 (06:17→21:14)
[2016-10-14] MEDS: INSULIN SLIDING SCALE (NOVOLOG) 1 VIAL SQ SCH ×4 (06:21→21:19)
[2016-10-14] MEDS: INSULIN DETEMIR 100 UNITS/ML MDV SQ SCH ×2 (07:19→21:18)
[2016-10-14] MEDS ORDERED: EPOETIN ALFA 10,000 UNIT/1 ML VIAL SQ ONE (08:00)
[2016-10-14 08:09] LABS: BASOPHIL 0.6 % (0-2.0); EOSINOPHIL 1.8 % (0-4.5); MCH 23.1 pg (25.7-33.7); MCHC 29.9 g/dl (32.0-35.9); MEAN CELL VOLUME 77.1 fl (80-96); MEAN PLT VOLUME 7.9 fl (7.5-11.1); NEUTROPHILS 56.6 % (42.8-82.8); PLATELET COUNT 275 K/MM3 (134-434); RDW 20.2 % (11.9-15.9); WHITE BLOOD COUNT 9.4 K/mm3 (4.0-10.0)
[2016-10-14 08:42] LABS: ANION GAP 13 (8-16); CO2 27 mmol/L (21-32); CREATININE 6.4 mg/dL (0.7-1.3); GLUCOSE,RANDOM 87 mg/dL (74-106); SGOT/AST 11 U/L (15-37); SGPT/ALT 13 U/L (12-78)
[2016-10-14 08:44] LABS: ALK PHOS 65 U/L (45-117); BILIRUBIN,TOTAL 0.6 mg/dL (0.2-1.0); TOT PROT 6.7 g/dl (6.4-8.2)
[2016-10-14 10:01] LABS: MCHC 30.2 g/dl (32.0-35.9); MEAN CELL VOLUME 76.2 fl (80-96); MEAN PLT VOLUME 7.6 fl (7.5-11.1); PLATELET COUNT 231 K/MM3 (134-434); RDW 20.7 % (11.9-15.9); WHITE BLOOD COUNT 7.4 K/mm3 (4.0-10.0)
[2016-10-14 10:54] LABS: ANISOCYTOSIS 2+; MICROCYTOSIS 1+
[2016-10-14] MEDS: FUROSEMIDE 40 MG TABLET (FP) PO SCH (10:58)
[2016-10-14] MEDS: amLODIPine BESYLATE 10 MG TABLET (FP) PO SCH (10:59)
[2016-10-14] MEDS: FINASTERIDE 5 MG TABLET (FP) PO SCH (10:59)
[2016-10-14] MEDS: COLLAGENASE CLOSTRIDIUM HIST. 30 GRAMS TUBE TP SCH ×2 (10:59→12:12)
--- NOTE | 2016-10-14 13:29 | PN ---
Progress Note, Physician Chief Complaint: Patient seen in dialysis. Tolerated well. the Catheter worked well. Hgb very low.Not enough time left on the machine for the transfusion. Will order transfusion tomorrow. No chest pain. ? Possibly for D/c in a few days. Patient seems not too thrilled about the idea :) - Current Medication List Current Medications: Active Medications Acetaminophen (Tylenol -) 650 mg PO Q4H PRN PRN Reason: FEVER OR PAIN Last Admin: 10/12/16 00:04 Dose: 650 mg Amlodipine Besylate (Norvasc -) 10 mg PO DAILY [facility] Last Admin: 10/14/16 10:59 Dose: Not Given Benzocaine/Menthol (Cepacol Lozenge -) 1 each MM Q4H PRN PRN Reason: SORE THROAT Collagenase (Santyl -) 1 applic TP DAILY [facility] Last Admin: 10/14/16 12:12 Dose: 1 applic Finasteride (Proscar -) 5 mg PO DAILY [facility] Last Admin: 10/14/16 10:59 Dose: Not Given Furosemide (Lasix -) 100 mg PO DAILY [facility] Last Admin: 10/14/16 10:58 Dose: Not Given Heparin Sodium (Porcine) (Heparin -) 5,000 unit SQ TID [facility] Last Admin: 10/14/16 13:04 Dose: 5,000 unit Insulin Aspart (Novolog Vial Sliding Scale -) 1 vial SQ ACHS [facility] PRN Reason: Protocol Last Admin: 10/14/16 11:58 Dose: 4 units Insulin Detemir (Levemir Vial) 16 units SQ AM [facility] Last Admin: 10/14/16 07:19 Dose: Not Given Insulin Detemir (Levemir Vial) 16 units SQ HS [facility] Last Admin: 10/13/16 21:41 Dose: 16 unit Metoprolol Succinate (Toprol Xl -) 50 mg PO HS [facility] Last Admin: 10/13/16 21:40 Dose: 50 mg - Objective Vital Signs: Vital Signs Temperature 98.8 F 10/14/16 11:55 Pulse Rate 88 10/14/16 10:55 Respiratory Rate 18 10/14/16 10:55 Blood Pressure 135/72 10/14/16 11:55 O2 Sat by Pulse Oximetry (%) 98 10/13/16 21:00 Constitutional: Yes: Calm, Pallor Eyes: Yes: Conjunctiva Clear Cardiovascular: Yes: Regular Rate and Rhythm, S1, S2 Respiratory: Yes: CTA Bilaterally Gastrointestinal: Yes: Normal Bowel Sounds, Abdomen, Obese Musculoskeletal: Yes: Back Pain, Joint Stiffness Labs: CBC, BMP 10/14/16 09:40 10/14/16 07:00 INR, PTT INR 1.48 (0.82-1.09) H 09/26/16 05:45 Problem List - Problems (1) Polymicrobial bacterial infection Code(s): A49.9 - BACTERIAL INFECTION, UNSPECIFIED (2) CHF (congestive heart failure) Code(s): I50.9 - HEART FAILURE, UNSPECIFIED (3) COPD (chronic obstructive pulmonary disease) Code(s): J44.9 - CHRONIC OBSTRUCTIVE PULMONARY DISEASE, UNSPECIFIED (4) Hyperkalemia Code(s): E87.5 - HYPERKALEMIA (5) Infected decubitus ulcer Code(s): L89.90 - PRESSURE ULCER OF UNSPECIFIED SITE, UNSPECIFIED STAGE (6) Leukocytosis Code(s): D72.829 - ELEVATED WHITE BLOOD CELL COUNT, UNSPECIFIED (7) Renal failure Code(s): N19 - UNSPECIFIED KIDNEY FAILURE (8) Sepsis Code(s): A41.9 - SEPSIS, UNSPECIFIED ORGANISM (9) Anemia Code(s): D64.9 - ANEMIA, UNSPECIFIED Qualifiers: (10) Diabetes Code(s): E11.9 - TYPE 2 DIABETES MELLITUS WITHOUT COMPLICATIONS Qualifiers: (11) End stage kidney disease Code(s): N18.6 - END STAGE RENAL DISEASE Assessment/Plan 66 y/o male with polymicrobial sepsis, from infected Decubitus/ foot infection . ESRD, on HD. Catheter working well. Hgb 7.3. Will transfuse on Hd tomorrow. If discharged , he will return to [facility] TTS schedule. Thank you. Chichi Garcia MD
--- NOTE | 2016-10-14 17:27 | PN ---
Physical Exam: SUBJECTIVE: Patient seen and examined after Hd. No issues, tolerated HD well. OBJECTIVE: Vital Signs Period Temp Pulse Resp BP Sys/Vogt Pulse Ox Last 24 Hr 98.7 F-98.9 F 57-108 18-20 100-168/54-97 98 PE Neuro: alert, awake, cn 2-12intact Pulm: CTAB CV: s1 s2 regularly irregular rhythm Abd: s nt nd + bs Ext: b/l +1 pitting edema skin: sacral wound x3 dressed Access: RCW permacath Laboratory Results - last 24 hr 10/13/16 10/14/16 10/14/16 21:12 06:18 07:00 WBC 9.4 RBC 3.19 L Hgb 7.4 L D Hct 24.6 L D MCV 77.1 L MCHC 29.9 L RDW 20.2 H Plt Count 275 MPV 7.9 Neutrophils % 56.6 Lymphocytes % 29.0 Monocytes % 12.0 H D Eosinophils % 1.8 Basophils % 0.6 Anisocytosis Microcytosis Macrocytosis Sodium Potassium Chloride Carbon Dioxide Anion Gap BUN Creatinine Creat Clearance w eGFR POC Glucometer 319 65 Random Glucose Calcium Total Bilirubin AST ALT Alkaline Phosphatase Total Protein Albumin Blood Type Antibody Screen Crossmatch 10/14/16 10/14/16 10/14/16 07:00 09:30 09:40 WBC 7.4 RBC 3.16 L Hgb 7.3 L Hct 24.1 L MCV 76.2 L MCHC 30.2 L RDW 20.7 H Plt Count 231 MPV 7.6 Neutrophils % Lymphocytes % Monocytes % Eosinophils % Basophils % Anisocytosis 2+ Microcytosis 1+ Macrocytosis 2+ Sodium 137 Potassium 4.6 Chloride 97 L Carbon Dioxide 27 Anion Gap 13 BUN 62 H D Creatinine 6.4 H D Creat Clearance w eGFR 8.78 POC Glucometer Random Glucose 87 D Calcium 8.0 L Total Bilirubin 0.6 D AST 11 L D ALT 13 D Alkaline Phosphatase 65 Total Protein 6.7 Albumin 2.0 L Blood Type B POSITIVE Antibody Screen Negative Crossmatch See Detail Active Medications Generic Name Dose Route Start Last Admin Trade Name Freq PRN Reason Stop Dose Admin Acetaminophen 650 mg 10/03/16 13:10 10/12/16 00:04 Tylenol - PO 650 mg Q4H PRN Administration FEVER OR PAIN Amlodipine Besylate 10 mg 10/09/16 10:00 10/14/16 10:59 Norvasc - PO Not Given DAILY [facility] Benzocaine/Menthol 1 each 10/03/16 13:10 Cepacol Lozenge - MM Q4H PRN SORE THROAT Collagenase 1 applic 10/04/16 10:00 10/14/16 12:12 Santyl - TP 1 applic DAILY [facility] Administration Finasteride 5 mg 10/13/16 10:00 10/14/16 10:59 Proscar - PO Not Given DAILY [facility] Furosemide 100 mg 10/10/16 10:00 10/14/16 10:58 Lasix - PO Not Given DAILY [facility] Heparin Sodium (Porcine) 5,000 unit 10/09/16 14:00 10/14/16 13:04 Heparin - SQ 5,000 unit TID [facility] Administration Heparin Sodium (Porcine) 1,000 unit 10/15/16 13:34 Heparin - SQ 10/15/16 13:35 ONCE ONE Insulin Aspart 1 vial 10/03/16 16:30 10/14/16 16:02 Novolog Vial Sliding Scale - SQ 4 units ACHS [facility] Administration Protocol Insulin Detemir 16 units 10/13/16 16:29 10/14/16 07:19 Levemir Vial SQ Not Given AM [facility] Insulin Detemir 16 units 10/13/16 16:29 10/13/16 21:41 Levemir Vial SQ 16 unit HS [facility] Administration Metoprolol Succinate 50 mg 10/08/16 18:31 10/13/16 21:40 Toprol Xl - PO 50 mg HS [facility] Administration Assessment: 66 year old male with PMHx of ESRD- on HD (/Fri) with permacath , pending mapping for AV-Fistula, HTN, [place] (01/2016), DM, COPD, Sacral Decubital Ulcers presented with diarrhea, sp fall. He was found to be in DKA (resolved), hyperkalemia, and transferred to the ICU for septic shock d/t uti and probable sacral ulcers, now s/p debridment. Plan 1. Septic shock 2/2 polymicrobial bacteremia (MRSA/STREP group F/bacteriosides) - Vancomycin with HD for 11 more day from 10/11 - Vanco today on HD - Regularly scheduled HD tomorrow - Goal 15 2. ESRD on chronic HD - HD per renal - Lasix 100mg daily 3. Anemia of chronic disease - Transfuse 1unit prbc tomorrow on HD 4. DM II - Levemir 16units AM - Levemir 12units HS - ISS, BGM ACHS 5. RLE erythema, warmth - Resolved 6. Sacral debuital ulcers - S/p debridement in [place] 09/27 - Santyl dressing changes daily 8. CAD s/p [place] 2015 - Metoprolol xl 50mg HS 9. HTN - BP controlled - Norvasc 10mg daily - BB as above 10. DKA with metabolic and lactic acidosis - Resolved 11. BPH - Daily Proscar 12. PPX - Heparin 5,000u sq TID Visit type - Emergency Visit Emergency Visit: Yes ED Registration Date: 09/24/16 Care time: The patient presented to the Emergency Department on the above date and was hospitalized for further evaluation of their emergent condition. - New Patient This patient is new to me today: No - Critical Care Critical Care patient: No
[2016-10-14] MEDS: METOPROLOL SUCCINATE 50 MG TAB.SR.24H (FP) PO SCH (21:13)
[2016-10-14] MEDS: ACETAMINOPHEN 325 MG TABLET (FP) PO PRN (23:01)
[2016-10-15] MEDS: INSULIN DETEMIR 100 UNITS/ML MDV SQ SCH ×2 (06:09→22:17)
[2016-10-15] MEDS: HEPARIN NA (PORCINE) 5,000 UNITS/ML 1ML VIAL SQ SCH ×3 (06:09→22:17)
[2016-10-15] MEDS: INSULIN SLIDING SCALE (NOVOLOG) 1 VIAL SQ SCH ×4 (06:55→22:16)
[2016-10-15 08:42] LABS: MCH 23.1 pg (25.7-33.7); MCHC 29.9 g/dl (32.0-35.9); MEAN CELL VOLUME 77.4 fl (80-96); MEAN PLT VOLUME 7.7 fl (7.5-11.1); NEUTROPHILS 52.2 % (42.8-82.8); PLATELET COUNT 275 K/MM3 (134-434); RDW 20.8 % (11.9-15.9); WHITE BLOOD COUNT 8.5 K/mm3 (4.0-10.0)
[2016-10-15 09:03] LABS: ALBUMIN 1.9 g/dl (3.4-5.0); ALK PHOS 66 U/L (45-117); ANION GAP 8 (8-16); BILIRUBIN,TOTAL 0.3 mg/dL (0.2-1.0); CALCIUM 7.8 mg/dL (8.5-10.1); CO2 31 mmol/L (21-32); CREATININE 4.5 mg/dL (0.7-1.3); GLUCOSE,RANDOM 117 mg/dL (74-106); SGOT/AST 13 U/L (15-37); SGPT/ALT 11 U/L (12-78); TOT PROT 6.2 g/dl (6.4-8.2)
[2016-10-15] MEDS ORDERED: PT OWN MED DRAWER 7, Y5N ONE (10:30)
[2016-10-15] MEDS: FINASTERIDE 5 MG TABLET (FP) PO SCH (10:50)
[2016-10-15] MEDS: FUROSEMIDE 40 MG TABLET (FP) PO SCH (10:50)
[2016-10-15] MEDS: amLODIPine BESYLATE 10 MG TABLET (FP) PO SCH (10:50)
[2016-10-15] MEDS: COLLAGENASE CLOSTRIDIUM HIST. 30 GRAMS TUBE TP SCH (12:32)
--- NOTE | 2016-10-15 13:19 | PN ---
Physical Exam: SUBJECTIVE: Patient seen and examined at the bedside. Eating lunch, in no acute distress OBJECTIVE: Patient had dialysis yesterday, will get dialysis again today via catheter. Vital Signs Period Temp Pulse Resp BP Sys/Vogt Pulse Ox Last 24 Hr 98.2 F-98.8 F 100-113 20-20 123-154/56-99 94 GENERAL: The patient is awake, alert, and fully oriented, in no acute distress. HEAD: Normal with no signs of trauma. NECK: Trachea midline, full range of motion, supple. LUNGS: diminished lung sounds bilaterally HEART: heart rate 113 ABDOMEN: Soft, nontender, nondistended, normoactive bowel sounds, no guarding, no rebound, no hepatosplenomegaly, no masses. EXTREMITIES: 2+ pulses, warm, well-perfused, trace edema. NEUROLOGICAL: Normal speech, non weight bearing PSYCH: Normal mood, normal affect. SKIN: decubital ulcers x 2 of sacrum: unstageable, malodorous with necrosis. Right buttock: stage 4 Wounds present on admission Laboratory Results - last 24 hr 10/14/16 10/14/16 10/14/16 09:30 15:58 21:16 WBC RBC Hgb Hct MCV MCHC RDW Plt Count MPV Neutrophils % Lymphocytes % Monocytes % Eosinophils % Basophils % Sodium Potassium Chloride Carbon Dioxide Anion Gap BUN Creatinine Creat Clearance w eGFR POC Glucometer 210 332 Random Glucose Calcium Total Bilirubin AST ALT Alkaline Phosphatase Total Protein Albumin Blood Type B POSITIVE Antibody Screen Negative Crossmatch See Detail 10/15/16 10/15/16 10/15/16 06:02 08:00 08:00 WBC 8.5 RBC 3.24 L Hgb 7.5 L Hct 25.1 L MCV 77.4 L MCHC 29.9 L RDW 20.8 H Plt Count 275 MPV 7.7 Neutrophils % 52.2 Lymphocytes % 31.9 Monocytes % 12.9 H Eosinophils % 2.0 Basophils % 1.0 Sodium 139 Potassium 4.0 Chloride 100 Carbon Dioxide 31 Anion Gap 8 BUN 39 H D Creatinine 4.5 H D Creat Clearance w eGFR 13.18 POC Glucometer 113 Random Glucose 117 H D Calcium 7.8 L Total Bilirubin 0.3 D AST 13 L ALT 11 L Alkaline Phosphatase 66 Total Protein 6.2 L Albumin 1.9 L Blood Type Antibody Screen Crossmatch 10/15/16 12:30 WBC RBC Hgb Hct MCV MCHC RDW Plt Count MPV Neutrophils % Lymphocytes % Monocytes % Eosinophils % Basophils % Sodium Potassium Chloride Carbon Dioxide Anion Gap BUN Creatinine Creat Clearance w eGFR POC Glucometer 132 Random Glucose Calcium Total Bilirubin AST ALT Alkaline Phosphatase Total Protein Albumin Blood Type Antibody Screen Crossmatch Active Medications Generic Name Dose Route Start Last Admin Trade Name Freq PRN Reason Stop Dose Admin Acetaminophen 650 mg 10/03/16 13:10 10/14/16 23:01 Tylenol - PO 650 mg Q4H PRN Administration FEVER OR PAIN Amlodipine Besylate 10 mg 10/09/16 10:00 10/15/16 10:50 Norvasc - PO 10 mg DAILY [facility] Administration Benzocaine/Menthol 1 each 10/03/16 13:10 Cepacol Lozenge - MM Q4H PRN SORE THROAT Collagenase 1 applic 10/04/16 10:00 10/15/16 12:32 Santyl - TP Not Given DAILY [facility] Finasteride 5 mg 10/13/16 10:00 10/15/16 10:50 Proscar - PO 5 mg DAILY [facility] Administration Furosemide 100 mg 10/10/16 10:00 10/15/16 10:50 Lasix - PO 100 mg DAILY [facility] Administration Heparin Sodium (Porcine) 5,000 unit 10/09/16 14:00 10/15/16 06:09 Heparin - SQ 5,000 unit TID [facility] Administration Heparin Sodium (Porcine) 1,000 unit 10/15/16 13:34 Heparin - SQ 10/15/16 13:35 ONCE ONE Insulin Aspart 1 vial 10/03/16 16:30 10/15/16 12:32 Novolog Vial Sliding Scale - SQ Not Given ACHS [facility] Protocol Insulin Detemir 16 units 10/13/16 16:29 10/15/16 06:09 Levemir Vial SQ 16 units AM [facility] Administration Insulin Detemir 16 units 10/13/16 16:29 10/14/16 21:18 Levemir Vial SQ 16 unit HS [facility] Administration Metoprolol Succinate 50 mg 10/08/16 18:31 10/14/16 21:13 Toprol Xl - PO 50 mg HS [facility] Administration ASSESSMENT/PLAN: Patient is a 66 year old male who was admitted on 09/24/2016 to the ICU with generalized weakness, sepsis and DKA. ID: Severe sepsis secondary to multiple pressure ulcerations of advanced stages - improving Assessment/Plan: Vancomycin with dialysis, will need additional 11 days from as per ID + MRSA on initial blood cultures, repeat ngtd Wound culture with multiple organisms ID following Monitor labs, vitals, f/u repeat blood cultures Will need outpatient wound clinic Renal: ESRD - chronic Assessment/Plan: Received dialysis yesterday and will receiving dialsyis again today with blood transfusion Had new permacath placed on 10/03/16 Endocrine: DKA - DM II uncontrolled Assessment/Plan: DKA resolved levemir 16 units @ BID, Novolog ac/hs Monitor BGMs Will need outpatient follow up for uncontrolled blood sugars Cardiovascular: Assessment/Plan: On Metoprolol 50mg @ HS, Norvasc 10mg daily Pulmonary: COPD - chronic Assessment/Plan: Monitor for home oxygen use On 4 liters of nasal cannula currently F.E.N. Fluids: PO intake adequate Electrolytes: monitor Nutrition: Renal diet Prophylaxis: Heparin BID Disposition: On discharge, patient will need the followin. New PCP outpatient referral (current pcp is retired). 2. follow up with Dr. Longoria in wound care clinic 3. [employer] referral for DKA. Visit type - Emergency Visit Emergency Visit: Yes ED Registration Date: 09/24/16 Care time: The patient presented to the Emergency Department on the above date and was hospitalized for further evaluation of their emergent condition. - New Patient This patient is new to me today: No - Critical Care Critical Care patient: No - Discharge Referral Referred to [facility] Med P.C[facility] No
--- NOTE | 2016-10-15 13:53 | PN ---
Progress Note, Physician Chief Complaint: Patient seen in his room. Over all feeling OK. But still with pain in the sacral area. No overt bleeding. No chest pain. No shortness of breath. History of Present Illness: HD earlier today. The patient s/p Polymicrobial sepsis due to foot and sacral decubitus. On IV Vancomycin. Hemoglobin remains very low (7.5) - Current Medication List Current Medications: Active Medications Acetaminophen (Tylenol -) 650 mg PO Q4H PRN PRN Reason: FEVER OR PAIN Last Admin: 10/14/16 23:01 Dose: 650 mg Amlodipine Besylate (Norvasc -) 10 mg PO DAILY [facility] Last Admin: 10/15/16 10:50 Dose: 10 mg Benzocaine/Menthol (Cepacol Lozenge -) 1 each MM Q4H PRN PRN Reason: SORE THROAT Collagenase (Santyl -) 1 applic TP DAILY [facility] Last Admin: 10/15/16 12:32 Dose: Not Given Finasteride (Proscar -) 5 mg PO DAILY [facility] Last Admin: 10/15/16 10:50 Dose: 5 mg Furosemide (Lasix -) 100 mg PO DAILY [facility] Last Admin: 10/15/16 10:50 Dose: 100 mg Heparin Sodium (Porcine) (Heparin -) 5,000 unit SQ TID [facility] Last Admin: 10/15/16 06:09 Dose: 5,000 unit Heparin Sodium (Porcine) (Heparin -) 1,000 unit SQ ONCE ONE Stop: 10/15/16 13:35 Insulin Aspart (Novolog Vial Sliding Scale -) 1 vial SQ ACHS [facility] PRN Reason: Protocol Last Admin: 10/15/16 12:32 Dose: Not Given Insulin Detemir (Levemir Vial) 16 units SQ AM [facility] Last Admin: 10/15/16 06:09 Dose: 16 units Insulin Detemir (Levemir Vial) 16 units SQ HS [facility] Last Admin: 10/14/16 21:18 Dose: 16 unit Metoprolol Succinate (Toprol Xl -) 50 mg PO HS [facility] Last Admin: 10/14/16 21:13 Dose: 50 mg - Objective Vital Signs: Vital Signs Temperature 98.6 F 10/15/16 10:00 Pulse Rate 100 H 10/15/16 10:00 Respiratory Rate 20 10/15/16 10:00 Blood Pressure 123/73 10/15/16 10:00 O2 Sat by Pulse Oximetry (%) 94 L 10/15/16 09:00 Constitutional: Yes: No Distress Eyes: Yes: Conjunctiva Clear Neck: Yes: Trachea Midline Cardiovascular: Yes: Regular Rate and Rhythm, S1, S2 Respiratory: Yes: Diminished, Rales Gastrointestinal: Yes: Normal Bowel Sounds, Abdomen, Obese Musculoskeletal: Yes: Back Pain, Other (Large infected decubitus.) Edema: Yes Edema: LLE: 2+, RLE: 2+ Labs: CBC, BMP 10/15/16 08:00 10/15/16 08:00 INR, PTT INR 1.48 (0.82-1.09) H 09/26/16 05:45 Problem List - Problems (1) Polymicrobial bacterial infection Code(s): A49.9 - BACTERIAL INFECTION, UNSPECIFIED (2) CHF (congestive heart failure) Code(s): I50.9 - HEART FAILURE, UNSPECIFIED (3) COPD (chronic obstructive pulmonary disease) Code(s): J44.9 - CHRONIC OBSTRUCTIVE PULMONARY DISEASE, UNSPECIFIED (4) Hyperkalemia Code(s): E87.5 - HYPERKALEMIA (5) Infected decubitus ulcer Code(s): L89.90 - PRESSURE ULCER OF UNSPECIFIED SITE, UNSPECIFIED STAGE (6) Leukocytosis Code(s): D72.829 - ELEVATED WHITE BLOOD CELL COUNT, UNSPECIFIED (7) Renal failure Code(s): N19 - UNSPECIFIED KIDNEY FAILURE (8) Sepsis Code(s): A41.9 - SEPSIS, UNSPECIFIED ORGANISM (9) Anemia Code(s): D64.9 - ANEMIA, UNSPECIFIED Qualifiers: (10) Diabetes Code(s): E11.9 - TYPE 2 DIABETES MELLITUS WITHOUT COMPLICATIONS Qualifiers: (11) End stage kidney disease Code(s): N18.6 - END STAGE RENAL DISEASE Assessment/Plan 66 y/o male with polymicrobial sepsis, from infected Decubitus/ foot infection . ESRD, on HD. Catheter working well. Hgb 7.5. Will transfuse on HD today. Orders reviewed with the RN. Thank you. Chichi Garcia MD
[2016-10-15] MEDS ORDERED: HEPARIN NA (PORCINE) 5,000 UNITS/ML 1ML VIAL IVPUSH ONE (15:45)
[2016-10-15] MEDS: HEPARIN NA (PORCINE) 5,000 UNITS/ML 1ML VIAL IVPUSH SCH ×2 (15:50→16:48)
[2016-10-15] MEDS ORDERED: VANCOMYCIN 1 GRAM (PRE-DOCKED) 1,000 MG/250 ML BAG IVPB ONE (17:00)
[2016-10-15] MEDS ORDERED: INSULIN (NOVOLOG) ASPART 100 UNITS/ML 10ML VIAL ONE (21:25)
[2016-10-15] MEDS: METOPROLOL SUCCINATE 50 MG TAB.SR.24H (FP) PO SCH (22:18)
[2016-10-16] MEDS: HEPARIN NA (PORCINE) 5,000 UNITS/ML 1ML VIAL SQ SCH ×2 (05:36→15:07)
[2016-10-16] MEDS: INSULIN SLIDING SCALE (NOVOLOG) 1 VIAL SQ SCH ×4 (06:12→22:12)
[2016-10-16] MEDS ORDERED: INSULIN (NOVOLOG) ASPART 100 UNITS/ML 10ML VIAL ONE (06:54)
[2016-10-16 07:37] LABS: BASOPHIL 0.5 % (0-2.0); EOSINOPHIL 1.3 % (0-4.5); MCH 24.4 pg (25.7-33.7); MCHC 31.2 g/dl (32.0-35.9); MEAN CELL VOLUME 78.4 fl (80-96); MEAN PLT VOLUME 7.6 fl (7.5-11.1); NEUTROPHILS 53.1 % (42.8-82.8); PLATELET COUNT 345 K/MM3 (134-434); WHITE BLOOD COUNT 11.5 K/mm3 (4.0-10.0)
[2016-10-16 07:50] LABS: ALBUMIN 2.1 g/dl (3.4-5.0); ANION GAP 6 (8-16); CALCIUM 8.3 mg/dL (8.5-10.1); CO2 34 mmol/L (21-32); GLUCOSE,RANDOM 58 mg/dL (74-106)
[2016-10-16 07:55] LABS: ALK PHOS 73 U/L (45-117); BILIRUBIN,TOTAL 0.3 mg/dL (0.2-1.0); CREATININE 3.5 mg/dL (0.7-1.3); SGOT/AST 15 U/L (15-37); SGPT/ALT 13 U/L (12-78); TOT PROT 7.2 g/dl (6.4-8.2)
[2016-10-16] MEDS: FINASTERIDE 5 MG TABLET (FP) PO SCH (11:38)
[2016-10-16] MEDS: amLODIPine BESYLATE 10 MG TABLET (FP) PO SCH (11:38)
[2016-10-16] MEDS: FUROSEMIDE 40 MG TABLET (FP) PO SCH (11:38)
[2016-10-16] MEDS: INSULIN DETEMIR 100 UNITS/ML MDV SQ SCH ×2 (11:39→22:11)
[2016-10-16] MEDS: COLLAGENASE CLOSTRIDIUM HIST. 30 GRAMS TUBE TP SCH (11:39)
--- NOTE | 2016-10-16 12:12 | PN ---
Progress Note (short form) - Note Progress Note: Renal Follow up for ESRD on HD Pt seen and examined at the bedside currently getting dressing change on sacrum no sob, chest pain, abd pain s/p HD yesterday with blood transfusion Vital Signs Temperature 98.9 F 10/16/16 05:35 Pulse Rate 105 H 10/16/16 05:35 Respiratory Rate 20 10/16/16 05:35 Blood Pressure 135/74 10/16/16 05:35 O2 Sat by Pulse Oximetry (%) 96 10/15/16 21:00 Intake & Output 10/13/16 10/14/16 10/15/16 10/16/16 23:59 23:59 23:59 23:59 Intake Total 300 170 300 Balance 300 170 300 Gen: NAD on NC, awake and alert CVS: RRR, NO M/R Lungs: dec BS at lung bases, b/l air entry Ext: 2+ edema in b/l LE CBC, BMP 10/16/16 06:00 10/16/16 06:00 Current Medications Acetaminophen (Tylenol -) 650 mg PO Q4H PRN PRN Reason: FEVER OR PAIN Last Admin: 10/14/16 23:01 Dose: 650 mg Amlodipine Besylate (Norvasc -) 10 mg PO DAILY [facility] Last Admin: 10/16/16 11:38 Dose: 10 mg Benzocaine/Menthol (Cepacol Lozenge -) 1 each MM Q4H PRN PRN Reason: SORE THROAT Collagenase (Santyl -) 1 applic TP DAILY [facility] Last Admin: 10/16/16 11:39 Dose: 1 applic Finasteride (Proscar -) 5 mg PO DAILY [facility] Last Admin: 10/16/16 11:38 Dose: 5 mg Furosemide (Lasix -) 100 mg PO DAILY [facility] Last Admin: 10/16/16 11:38 Dose: 100 mg Heparin Sodium (Porcine) (Heparin -) 5,000 unit SQ TID [facility] Last Admin: 10/16/16 05:36 Dose: 5,000 unit Insulin Aspart (Novolog Vial Sliding Scale -) 1 vial SQ ACHS [facility] PRN Reason: Protocol Last Admin: 10/16/16 06:12 Dose: Not Given Insulin Detemir (Levemir Vial) 16 units SQ AM [facility] Last Admin: 10/16/16 11:39 Dose: 16 units Insulin Detemir (Levemir Vial) 16 units SQ HS [facility] Last Admin: 10/15/16 22:17 Dose: 16 unit Metoprolol Succinate (Toprol Xl -) 50 mg PO HS [facility] Last Admin: 10/15/16 22:18 Dose: 50 mg A/P 66 year old gentleman with PMhx of ESRD on HD, CAD, CHF, IDDM, Sacral Decubitis who presented with weakness and fall and found to have SIRS/Sepsis with DKA and hyperkalemia and metabolic acidosis. #SIRS/Sepsis/Sacral Decubitis Continue Vacnomycin with HD as per ID recs #ESRD on HD for next HD tomorrow no acute indication for [facility] RECEIVER today will plan aggressive UF with HD as tolerated #Micocytoic Anemia Maintain WILY with HD s/p Blood transfusion with HD yesterday Dominick Vanegas DO
--- NOTE | 2016-10-16 17:04 | PN ---
Physical Exam: SUBJECTIVE: Patient seen and examined, he denies any chest pain or shortness of breath. OBJECTIVE: Discharge planning Vital Signs Period Temp Pulse Resp BP Sys/Vogt Pulse Ox Last 24 Hr 98.1 F-98.9 F 64-116 18-22 107-143/60-94 96 GENERAL: The patient is awake, alert, and fully oriented, in no acute distress. HEAD: Normal with no signs of trauma. NECK: Trachea midline, full range of motion, supple. LUNGS: diminished lung sounds bilaterally HEART: heart rate 113 ABDOMEN: Soft, nontender, nondistended, normoactive bowel sounds, no guarding, no rebound, no hepatosplenomegaly, no masses. EXTREMITIES: 2+ pulses, warm, well-perfused, trace edema. NEUROLOGICAL: Normal speech, non weight bearing PSYCH: Normal mood, normal affect. SKIN: decubital ulcers x 2 of sacrum: unstageable, malodorous with necrosis. Right buttock: stage 4 Wounds present on admission Laboratory Results - last 24 hr 10/15/16 10/16/16 10/16/16 22:14 05:54 06:00 WBC 11.5 H D RBC 3.91 L D Hgb 9.6 L D Hct 30.7 L D MCV 78.4 L MCHC 31.2 L RDW 20.0 H Plt Count 345 D MPV 7.6 Neutrophils % 53.1 Lymphocytes % 32.8 Monocytes % 12.3 H Eosinophils % 1.3 Basophils % 0.5 Sodium Potassium Chloride Carbon Dioxide Anion Gap BUN Creatinine Creat Clearance w eGFR POC Glucometer 346 65 Random Glucose Calcium Total Bilirubin AST ALT Alkaline Phosphatase Total Protein Albumin 10/16/16 10/16/16 06:00 13:15 WBC RBC Hgb Hct MCV MCHC RDW Plt Count MPV Neutrophils % Lymphocytes % Monocytes % Eosinophils % Basophils % Sodium 139 Potassium 3.9 Chloride 99 Carbon Dioxide 34 H Anion Gap 6 L BUN 28 H D Creatinine 3.5 H D Creat Clearance w eGFR 17.61 POC Glucometer 223 Random Glucose 58 L D Calcium 8.3 L Total Bilirubin 0.3 AST 15 ALT 13 Alkaline Phosphatase 73 Total Protein 7.2 Albumin 2.1 L Active Medications Generic Name Dose Route Start Last Admin Trade Name Freq PRN Reason Stop Dose Admin Acetaminophen 650 mg 10/03/16 13:10 10/14/16 23:01 Tylenol - PO 650 mg Q4H PRN Administration FEVER OR PAIN Amlodipine Besylate 10 mg 10/09/16 10:00 10/16/16 11:38 Norvasc - PO 10 mg DAILY [facility] Administration Benzocaine/Menthol 1 each 10/03/16 13:10 Cepacol Lozenge - MM Q4H PRN SORE THROAT Collagenase 1 applic 10/04/16 10:00 10/16/16 11:39 Santyl - TP 1 applic DAILY [facility] Administration Epoetin Neftaly 20,000 unit 10/17/16 08:00 Procrit - IVPUSH 10/17/16 08:01 ONCE ONE Finasteride 5 mg 10/13/16 10:00 10/16/16 11:38 Proscar - PO 5 mg DAILY [facility] Administration Furosemide 100 mg 10/10/16 10:00 10/16/16 11:38 Lasix - PO 100 mg DAILY [facility] Administration Vancomycin HCl 1,000 mg/ 250 mls @ 250 mls/hr 10/17/16 08:00 Dextrose IVPB 10/17/16 08:59 ONCE ONE Protocol Insulin Aspart 1 vial 10/03/16 16:30 10/16/16 15:06 Novolog Vial Sliding Scale - SQ Not Given ACHS [facility] Protocol Insulin Detemir 16 units 10/13/16 16:29 10/16/16 11:39 Levemir Vial SQ 16 units AM [facility] Administration Insulin Detemir 16 units 10/13/16 16:29 10/15/16 22:17 Levemir Vial SQ 16 unit HS [facility] Administration Metoprolol Succinate 50 mg 10/08/16 18:31 10/15/16 22:18 Toprol Xl - PO 50 mg HS [facility] Administration ASSESSMENT/PLAN: Patient is a 66 year old male who was admitted on 09/24/2016 to the ICU with generalized weakness, sepsis and DKA. ID: Severe sepsis secondary to multiple pressure ulcerations of advanced stages - improving Assessment/Plan: Vancomycin with dialysis, will need additional 11 days from as per ID + MRSA on initial blood cultures, repeat ngtd Wound culture with multiple organisms ID following Monitor labs, vitals, f/u repeat blood cultures Will need outpatient wound clinic Renal: ESRD - chronic Assessment/Plan: Received dialysis yesterday and will receiving dialysis again tomorrow s/p PRBC transfusion, hmg/hct stable Had new permacath placed on 10/03/16 Endocrine: DKA - DM II uncontrolled Assessment/Plan: DKA resolved levemir 16 units @ BID, Novolog ac/hs Monitor BGMs Will need outpatient follow up for uncontrolled blood sugars Cardiovascular: Assessment/Plan: On Metoprolol 50mg @ HS, Norvasc 10mg daily Pulmonary: COPD - chronic Assessment/Plan: Monitor for home oxygen use On 4 liters of nasal cannula currently F.E.N. Fluids: PO intake adequate Electrolytes: monitor Nutrition: Renal diet Prophylaxis: Heparin BID Disposition: On discharge, patient will need the followin. New PCP outpatient referral (current pcp is retired). 2. follow up with Dr. Longoria in wound care clinic 3. [employer] referral for DKA. Visit type - Emergency Visit Emergency Visit: Yes ED Registration Date: 09/24/16 Care time: The patient presented to the Emergency Department on the above date and was hospitalized for further evaluation of their emergent condition. - New Patient This patient is new to me today: No - Critical Care Critical Care patient: No - Discharge Referral Referred to [facility] Med P.C.: No
[2016-10-16] MEDS: METOPROLOL SUCCINATE 50 MG TAB.SR.24H (FP) PO SCH (22:12)
[2016-10-17] MEDS: INSULIN SLIDING SCALE (NOVOLOG) 1 VIAL SQ SCH ×4 (06:37→21:52)
[2016-10-17] MEDS ORDERED: PT OWN MED DRAWER 7, Y5N ONE (06:54)
[2016-10-17] MEDS ORDERED: EPOETIN ALFA 20,000 UNIT/1 ML VIAL IVPUSH ONE (08:00)
[2016-10-17 08:25] LABS: BASOPHIL 0.7 % (0-2.0); EOSINOPHIL 2.6 % (0-4.5); MCH 23.8 pg (25.7-33.7); MCHC 30.5 g/dl (32.0-35.9); MEAN CELL VOLUME 77.9 fl (80-96); MEAN PLT VOLUME 7.4 fl (7.5-11.1); PLATELET COUNT 317 K/MM3 (134-434); RDW 20.3 % (11.9-15.9); WHITE BLOOD COUNT 11.1 K/mm3 (4.0-10.0)
[2016-10-17 08:47] LABS: ALBUMIN 1.9 g/dl (3.4-5.0); ALK PHOS 70 U/L (45-117); ANION GAP 9 (8-16); BILIRUBIN,TOTAL 0.3 mg/dL (0.2-1.0); CALCIUM 8.2 mg/dL (8.5-10.1); CO2 31 mmol/L (21-32); CREATININE 4.7 mg/dL (0.7-1.3); GLUCOSE,RANDOM 70 mg/dL (74-106); SGOT/AST 11 U/L (15-37); SGPT/ALT 12 U/L (12-78); TOT PROT 6.6 g/dl (6.4-8.2)
[2016-10-17] MEDS ORDERED: VANCOMYCIN 1 GRAM (PRE-DOCKED) 250 ML IVPB ONE (10:10)
[2016-10-17 11:16] LABS: PHOSPHOROUS 4.8 mg/dL (2.5-4.9)
--- NOTE | 2016-10-17 11:54 | PN ---
Progress Note (short form) - Note Progress Note: Renal Follow up for ESRD on HD Pt seen and examined at the bedside no acute complaints s/p dialysis this am s/p UF of 3.5L no acute complaints Vital Signs Temperature 96.0 F L 10/17/16 11:01 Pulse Rate 87 10/17/16 11:01 Respiratory Rate 18 10/17/16 11:01 Blood Pressure 107/72 10/17/16 11:01 O2 Sat by Pulse Oximetry (%) 96 10/16/16 21:00 Intake & Output 10/14/16 10/15/16 10/16/16 10/17/16 23:59 23:59 23:59 23:59 Intake Total 170 300 200 200 Balance 170 300 200 200 Gen: NAD on NC, awake and alert CVS: RRR, NO M/R Lungs: dec BS at lung bases, b/l air entry Ext: 2+ edema in b/l LE CBC, BMP 10/17/16 08:00 10/17/16 08:00 Current Medications Acetaminophen (Tylenol -) 650 mg PO Q4H PRN PRN Reason: FEVER OR PAIN Last Admin: 10/14/16 23:01 Dose: 650 mg Amlodipine Besylate (Norvasc -) 10 mg PO DAILY [facility] Last Admin: 10/16/16 11:38 Dose: 10 mg Benzocaine/Menthol (Cepacol Lozenge -) 1 each MM Q4H PRN PRN Reason: SORE THROAT Collagenase (Santyl -) 1 applic TP DAILY [facility] Last Admin: 10/16/16 11:39 Dose: 1 applic Finasteride (Proscar -) 5 mg PO DAILY [facility] Last Admin: 10/16/16 11:38 Dose: 5 mg Furosemide (Lasix -) 100 mg PO DAILY [facility] Last Admin: 10/16/16 11:38 Dose: 100 mg Insulin Aspart (Novolog Vial Sliding Scale -) 1 vial SQ ACHS [facility] PRN Reason: Protocol Last Admin: 10/17/16 06:37 Dose: Not Given Insulin Detemir (Levemir Vial) 16 units SQ AM [facility] Last Admin: 10/16/16 11:39 Dose: 16 units Insulin Detemir (Levemir Vial) 16 units SQ HS [facility] Last Admin: 10/16/16 22:11 Dose: 16 unit Metoprolol Succinate (Toprol Xl -) 50 mg PO HS [facility] Last Admin: 10/16/16 22:12 Dose: 50 mg A/P 66 year old gentleman with PMhx of ESRD on HD, CAD, CHF, IDDM, Sacral Decubitis who presented with weakness and fall and found to have SIRS/Sepsis with DKA and hyperkalemia and metabolic acidosis. #SIRS/Sepsis/Sacral Decubitis Continue Vacnomycin with HD as per ID recs Local wound care Surgical Follow up #ESRD on HD tolerated HD well today will continue aggressive UF with HD as pt has significant LE edema #Micocytoic Anemia high dose EPO with HD Goal Hgb level is 10 Dominick Vanegas DO
[2016-10-17] MEDS: amLODIPine BESYLATE 10 MG TABLET (FP) PO SCH (12:27)
[2016-10-17] MEDS: FUROSEMIDE 40 MG TABLET (FP) PO SCH (12:27)
[2016-10-17] MEDS: INSULIN DETEMIR 100 UNITS/ML MDV SQ SCH ×2 (12:27→21:52)
[2016-10-17] MEDS: FINASTERIDE 5 MG TABLET (FP) PO SCH (12:27)
--- NOTE | 2016-10-17 13:08 | DS ---
Physical Exam: SUBJECTIVE: Patient seen and examined at dialysis. OBJECTIVE: Vital Signs Period Temp Pulse Resp BP Sys/Vogt Pulse Ox Last 24 Hr 96.0 F-98.4 F 64-108 18-22 96-142/56-82 96 PHYSICAL EXAM GENERAL: The patient is awake, alert, and fully oriented, in no acute distress. HEAD: Normal with no signs of trauma. NECK: Trachea midline, full range of motion, supple. LUNGS: diminished lung sounds bilaterally HEART: heart rate 113 ABDOMEN: Soft, nontender, nondistended, normoactive bowel sounds, no guarding, no rebound, no hepatosplenomegaly, no masses. EXTREMITIES: 2+ pulses, warm, well-perfused, trace edema. NEUROLOGICAL: Normal speech, non weight bearing PSYCH: Normal mood, normal affect. SKIN: decubital ulcers x 2 of sacrum: unstageable, malodorous with necrosis. Right buttock: stage 4 Wounds present on admission LABS Laboratory Results - last 24 hr 10/16/16 10/16/16 10/16/16 13:15 18:08 22:10 WBC RBC Hgb Hct MCV MCHC RDW Plt Count MPV Neutrophils % Lymphocytes % Monocytes % Eosinophils % Basophils % Sodium Potassium Chloride Carbon Dioxide Anion Gap BUN Creatinine Creat Clearance w eGFR POC Glucometer 223 270 240 Random Glucose Calcium Phosphorus Total Bilirubin AST ALT Alkaline Phosphatase Total Protein Albumin Random Vancomycin 10/17/16 10/17/16 10/17/16 06:37 08:00 08:00 WBC 11.1 H RBC 3.67 L Hgb 8.7 L Hct 28.6 L MCV 77.9 L MCHC 30.5 L RDW 20.3 H Plt Count 317 MPV 7.4 L Neutrophils % 49.0 Lymphocytes % 34.4 Monocytes % 13.3 H Eosinophils % 2.6 D Basophils % 0.7 Sodium 138 Potassium 4.2 Chloride 98 Carbon Dioxide 31 Anion Gap 9 BUN 44 H D Creatinine 4.7 H D Creat Clearance w eGFR 12.53 POC Glucometer 85 Random Glucose 70 L D Calcium 8.2 L Phosphorus 4.8 Total Bilirubin 0.3 AST 11 L D ALT 12 Alkaline Phosphatase 70 Total Protein 6.6 Albumin 1.9 L Random Vancomycin 10/17/16 10/17/16 10/17/16 08:22 08:40 12:04 WBC RBC Hgb Hct MCV MCHC RDW Plt Count MPV Neutrophils % Lymphocytes % Monocytes % Eosinophils % Basophils % Sodium Potassium Chloride Carbon Dioxide Anion Gap BUN Creatinine Creat Clearance w eGFR POC Glucometer 107 155 Random Glucose Calcium Phosphorus Total Bilirubin AST ALT Alkaline Phosphatase Total Protein Albumin Random Vancomycin 6.875 HOSPITAL COURSE: Date of Admission:09/24/16 Date of Discharge: 10/17/16 ASSESSMENT/PLAN: Patient is a 66 year old male who was admitted on 09/24/2016 to the ICU with generalized weakness, sepsis and DKA. ID: Severe sepsis secondary to multiple pressure ulcerations of advanced stages - improving Assessment/Plan: Vancomycin with dialysis, will need additional 11 days from as per ID + MRSA on initial blood cultures, repeat ngtd Wound culture with multiple organisms ID following Monitor labs, vitals, f/u repeat blood cultures continue wound care of the sacral region daily Renal: ESRD - chronic Assessment/Plan: Received dialysis yesterday and will receiving dialysis again tomorrow s/p PRBC transfusion, hmg/hct stable Had new permacath placed on 10/03/16 Endocrine: DKA - DM II uncontrolled Assessment/Plan: DKA resolved levemir 16 units @ BID, Novolog ac/hs Monitor BGMs Cardiovascular: Assessment/Plan: On Metoprolol 50mg @ HS, Norvasc 10mg daily Pulmonary: COPD - chronic Assessment/Plan: Monitor for home oxygen use On 4 liters of nasal cannula currently Prophylaxis: Heparin BID Disposition: Discharge today. Full code. Minutes to complete discharge: 60 Discharge Summary Reason For Visit: RENAL FAILURE ANEMIA Current Active Problems Diarrhea (Acute) Polymicrobial bacterial infection (Acute) Condition: Stable - Instructions Diet, Activity, Other Instructions: Mr. Becker: Please continue dialysis at your new facility as per Dr. Perez and Dr. Guilherme Tan. Please continue vancomycin at HD, you will need additional 11 days from 2016. Vanco levels to be drawn during dialysis. Wound care orders - sacral wound: Cleanse the wound site and remove as much debris as possible. Cleanse wound with sterile saline only. Apply [place] ointment directly to the wound with a sterile gauze pad. Apply a 2mm thickness of Santyl to the wound Secure wound with sterile dressing. Do not use dressings with Silver AG or iodine. Disposition: CARE HOME FACILITY - Home Medications Comprehensive Discharge Medication List: Ambulatory Orders Finasteride [Proscar] 5 mg PO DAILY 01/24/16 Metoprolol Succinate [Toprol XL -] 50 mg PO HS 01/24/16 Amlodipine Besylate [Norvasc -] 10 mg PO DAILY #30 tablet 01/26/16 Acetaminophen [Tylenol .Regular Strength -] 650 mg PO Q4H PRN #0 tablet Amlodipine Besylate [Norvasc -] 10 mg PO DAILY tablet 10/17/16 Collagenase Clostridium Hist. [Santyl -] 1 applic TP DAILY tube 10/17/16 Finasteride [Proscar -] 5 mg PO DAILY tablet 10/17/16 Furosemide [Lasix -] 100 mg PO DAILY tablet 10/17/16 Heparin - 5,000 unit SQ TID vial 10/17/16 Insulin (Levemir) [Levemir Vial] 16 units SQ AM ml 10/17/16 Insulin (Levemir) [Levemir Vial] 16 units SQ HS ml 10/17/16 Insulin Sliding Scale [Novolog Vial Sliding Scale -] 1 vial SQ ACHS units 10/17 This patient is new to me today: No Emergency Visit: Yes ED Registration Date: 09/24/16 Care time: The patient presented to the Emergency Department on the above date and was hospitalized for further evaluation of their emergent condition. Critical Care patient: No - Discharge Referral Referred to [facility] Med P.C.: No Physician Referral: Sunny Sims MD ([facility]), Tonio Longoria DO ([facility])
[2016-10-17] MEDS: COLLAGENASE CLOSTRIDIUM HIST. 30 GRAMS TUBE TP SCH (17:29)
[2016-10-17] MEDS ORDERED: INSULIN (NOVOLOG) ASPART 100 UNITS/ML 10ML VIAL ONE (20:53)
[2016-10-17] MEDS: METOPROLOL SUCCINATE 50 MG TAB.SR.24H (FP) PO SCH (21:51)
[2016-10-18] MEDS: INSULIN SLIDING SCALE (NOVOLOG) 1 VIAL SQ SCH ×4 (06:15→21:54)
[2016-10-18] MEDS ORDERED: INSULIN (NOVOLOG) ASPART 100 UNITS/ML 10ML VIAL ONE ×3 (07:00→21:30)
[2016-10-18 08:34] LABS: BASOPHIL 0.6 % (0-2.0); EOSINOPHIL 1.6 % (0-4.5); MCH 24.2 pg (25.7-33.7); MEAN CELL VOLUME 77.9 fl (80-96); MEAN PLT VOLUME 7.1 fl (7.5-11.1); NEUTROPHILS 62.6 % (42.8-82.8); PLATELET COUNT 322 K/MM3 (134-434); RDW 20.1 % (11.9-15.9); WHITE BLOOD COUNT 10.5 K/mm3 (4.0-10.0)
[2016-10-18 08:55] LABS: ALBUMIN 1.9 g/dl (3.4-5.0); ALK PHOS 64 U/L (45-117); ANION GAP 10 (8-16); BILIRUBIN,TOTAL 0.3 mg/dL (0.2-1.0); CALCIUM 8.3 mg/dL (8.5-10.1); CO2 32 mmol/L (21-32); CREATININE 4.2 mg/dL (0.7-1.3); GLUCOSE,RANDOM 79 mg/dL (74-106); SGOT/AST 12 U/L (15-37); SGPT/ALT 12 U/L (12-78); TOT PROT 6.5 g/dl (6.4-8.2)
[2016-10-18] MEDS ORDERED: PT OWN MED DRAWER 7, Y5N ONE (09:26)
[2016-10-18] MEDS: FUROSEMIDE 40 MG TABLET (FP) PO SCH (10:56)
[2016-10-18] MEDS: FINASTERIDE 5 MG TABLET (FP) PO SCH (10:57)
[2016-10-18] MEDS: COLLAGENASE CLOSTRIDIUM HIST. 30 GRAMS TUBE TP SCH (10:57)
[2016-10-18] MEDS: amLODIPine BESYLATE 10 MG TABLET (FP) PO SCH (10:57)
[2016-10-18] MEDS: INSULIN DETEMIR 100 UNITS/ML MDV SQ SCH ×2 (11:04→21:53)
[2016-10-18] MEDS ORDERED: INSULIN DETEMIR 100 UNITS/ML MDV SQ ONE (11:15)
--- NOTE | 2016-10-18 13:06 | PN ---
Physical Exam: SUBJECTIVE: Patient seen and examined at the bedside. States he feels well, denies pain or discomfort. OBJECTIVE: Patient is awaiting placement to [facility] for continued wound therapy as well as dialysis WBC improving @ 10.5, he remains afebrile, vitals stable Discharged yesterday, however as per SW notes [facility] has not fully accepted pt secondary to WBC of 11.1 yesterday. Dialysis T, Th, S scheduled, last dialysis yesterday through right permacath Pending acceptance from [facility] dialysis team. Vital Signs Period Temp Pulse Resp BP Sys/Vogt Pulse Ox Last 24 Hr 97.6 F-99 F 95-112 18-22 102-124/50-70 96 GENERAL: The patient is awake, alert, and fully oriented, in no acute distress. HEAD: Normal with no signs of trauma. NECK: Trachea midline, full range of motion, supple. LUNGS: diminished lung sounds bilaterally +crackles on bilateral lower lobes HEART: heart rate rrr ABDOMEN: Soft, nontender, nondistended, normoactive bowel sounds, no guarding, no rebound, no hepatosplenomegaly, no masses. EXTREMITIES: 2+ pulses, warm, well-perfused, trace edema. NEUROLOGICAL: Normal speech, non weight bearing PSYCH: Normal mood, normal affect. SKIN: decubital ulcers x 2 of sacrum: unstageable, malodorous with necrosis. Right buttock: stage 4 Wounds present on admission Laboratory Results - last 24 hr 10/17/16 10/17/16 10/18/16 17:09 21:21 05:58 WBC RBC Hgb Hct MCV MCHC RDW Plt Count MPV Neutrophils % Lymphocytes % Monocytes % Eosinophils % Basophils % Sodium Potassium Chloride Carbon Dioxide Anion Gap BUN Creatinine Creat Clearance w eGFR POC Glucometer 205 284 59 Random Glucose Calcium Total Bilirubin AST ALT Alkaline Phosphatase Total Protein Albumin 10/18/16 10/18/16 10/18/16 06:55 08:00 08:00 WBC 10.5 H RBC 3.68 L Hgb 8.9 L Hct 28.6 L MCV 77.9 L MCHC 31.0 L RDW 20.1 H Plt Count 322 MPV 7.1 L Neutrophils % 62.6 D Lymphocytes % 21.5 D Monocytes % 13.7 H Eosinophils % 1.6 Basophils % 0.6 Sodium 139 Potassium 3.9 Chloride 97 L Carbon Dioxide 32 Anion Gap 10 BUN 42 H Creatinine 4.2 H Creat Clearance w eGFR 14.27 POC Glucometer 97 Random Glucose 79 Calcium 8.3 L Total Bilirubin 0.3 AST 12 L ALT 12 Alkaline Phosphatase 64 Total Protein 6.5 Albumin 1.9 L 10/18/16 10:59 WBC RBC Hgb Hct MCV MCHC RDW Plt Count MPV Neutrophils % Lymphocytes % Monocytes % Eosinophils % Basophils % Sodium Potassium Chloride Carbon Dioxide Anion Gap BUN Creatinine Creat Clearance w eGFR POC Glucometer 238 Random Glucose Calcium Total Bilirubin AST ALT Alkaline Phosphatase Total Protein Albumin Active Medications Generic Name Dose Route Start Last Admin Trade Name Freq PRN Reason Stop Dose Admin Acetaminophen 650 mg 10/03/16 13:10 10/14/16 23:01 Tylenol - PO 650 mg Q4H PRN Administration FEVER OR PAIN Amlodipine Besylate 10 mg 10/09/16 10:00 10/18/16 10:57 Norvasc - PO 10 mg DAILY [facility] Administration Benzocaine/Menthol 1 each 10/03/16 13:10 Cepacol Lozenge - MM Q4H PRN SORE THROAT Collagenase 1 applic 10/04/16 10:00 10/18/16 10:57 Santyl - TP 1 applic DAILY [facility] Administration Finasteride 5 mg 10/13/16 10:00 10/18/16 10:57 Proscar - PO 5 mg DAILY [facility] Administration Furosemide 100 mg 10/10/16 10:00 10/18/16 10:56 Lasix - PO 100 mg DAILY [facility] Administration Insulin Aspart 1 vial 10/03/16 16:30 10/18/16 11:04 Novolog Vial Sliding Scale - SQ 4 units ACHS [facility] Administration Protocol Insulin Detemir 12 units 10/19/16 07:00 Levemir Vial SQ AM [facility] Insulin Detemir 12 units 10/18/16 22:00 Levemir Vial SQ HS [facility] Metoprolol Succinate 50 mg 10/08/16 18:31 10/17/16 21:51 Toprol Xl - PO 50 mg HS [facility] Administration ASSESSMENT/PLAN: Patient is a 66 year old male who was admitted on 09/24/2016 to the ICU with generalized weakness, sepsis and DKA. He is pending discharge to [facility] for continuation of care. ID: Severe sepsis secondary to multiple pressure ulcerations of advanced stages - improving Assessment/Plan: Vancomycin with dialysis, will need additional 11 days from as per ID + MRSA on initial blood cultures, repeat blood cultures negative Wound culture with multiple organisms, daily wound care required Monitor labs, vitals continue wound care of the sacral region daily as instructed on d/c instructions No prostat ordered as patient is a renal patient Turn and position q2 Renal: ESRD - chronic Assessment/Plan: T,TH,S schedule s/p PRBC transfusion, hmg/hct now stable Had new permacath placed on 10/03/16 Dr. Tan, Dr. Garcia to follow patient @ [facility] Patient has been cleared by nephrology for discharge Endocrine: DKA - DM II uncontrolled Assessment/Plan: DKA resolved levemir 12 units @ BID, Novolog ac/hs Monitor BGMs Cardiovascular: Assessment/Plan: On Metoprolol 50mg @ HS, Norvasc 10mg daily Monitor BP Pulmonary: COPD - chronic Assessment/Plan: Monitor for home oxygen use On 4 liters of nasal cannula currently, saturations on 4 liters stable Prophylaxis: Heparin BID Disposition: Discharge pending final approval from [facility]. Full code. Visit type - Emergency Visit Emergency Visit: Yes ED Registration Date: 09/24/16 Care time: The patient presented to the Emergency Department on the above date and was hospitalized for further evaluation of their emergent condition. - New Patient This patient is new to me today: No - Critical Care Critical Care patient: No - Discharge Referral Referred to [facility] Med P.C.: No
--- NOTE | 2016-10-18 13:57 | PN ---
Progress Note (short form) - Note Progress Note: Renal Follow up for ESRD on HD Pt seen and examined at the bedside no acute complaints s/p dialysis yesterday w/o complications legs remain swollen denies sob, chest pain, fever, chills Vital Signs Temperature 97.6 F 10/18/16 13:10 Pulse Rate 96 H 10/18/16 13:15 Respiratory Rate 18 10/18/16 13:15 Blood Pressure 112/66 10/18/16 13:15 O2 Sat by Pulse Oximetry (%) 96 10/17/16 21:00 Intake & Output 10/15/16 10/16/16 10/17/16 10/18/16 23:59 23:59 23:59 23:59 Intake Total 300 200 500 240 Balance 300 200 500 240 Gen: NAD on NC, awake and alert CVS: RRR, NO M/R Lungs: dec BS at lung bases, b/l air entry Ext: 2+ edema in b/l LE CBC, BMP 10/18/16 08:00 10/18/16 08:00 Current Medications Acetaminophen (Tylenol -) 650 mg PO Q4H PRN PRN Reason: FEVER OR PAIN Last Admin: 10/14/16 23:01 Dose: 650 mg Amlodipine Besylate (Norvasc -) 10 mg PO DAILY [facility] Last Admin: 10/18/16 10:57 Dose: 10 mg Benzocaine/Menthol (Cepacol Lozenge -) 1 each MM Q4H PRN PRN Reason: SORE THROAT Collagenase (Santyl -) 1 applic TP DAILY [facility] Last Admin: 10/18/16 10:57 Dose: 1 applic Finasteride (Proscar -) 5 mg PO DAILY [facility] Last Admin: 10/18/16 10:57 Dose: 5 mg Furosemide (Lasix -) 100 mg PO DAILY [facility] Last Admin: 10/18/16 10:56 Dose: 100 mg Insulin Aspart (Novolog Vial Sliding Scale -) 1 vial SQ ACHS [facility] PRN Reason: Protocol Last Admin: 10/18/16 11:04 Dose: 4 units Insulin Detemir (Levemir Vial) 12 units SQ AM [facility] Insulin Detemir (Levemir Vial) 12 units SQ HS [facility] Metoprolol Succinate (Toprol Xl -) 50 mg PO HS [facility] Last Admin: 10/17/16 21:51 Dose: 50 mg A/P 66 year old gentleman with PMhx of ESRD on HD, CAD, CHF, IDDM, Sacral Decubitis who presented with weakness and fall and found to have SIRS/Sepsis with DKA and hyperkalemia and metabolic acidosis. #SIRS/Sepsis/Sacral Decubitis Continue Vacnomycin with HD as per ID recs Local wound care Surgical Follow up #ESRD on HD will arrange for isolated UF as pt continues to have LE edmea #Micocytoic Anemia high dose EPO with HD Goal Hgb level is 10 Dominick Vanegas DO
[2016-10-18] MEDS: METOPROLOL SUCCINATE 50 MG TAB.SR.24H (FP) PO SCH (21:55)
[2016-10-19] MEDS: INSULIN SLIDING SCALE (NOVOLOG) 1 VIAL SQ SCH ×4 (06:00→22:56)
[2016-10-19] MEDS: INSULIN DETEMIR 100 UNITS/ML MDV SQ SCH ×2 (06:42→22:06)
[2016-10-19] MEDS ORDERED: EPOETIN ALFA 20,000 UNIT/1 ML VIAL IVPUSH ONE (08:00)
[2016-10-19] MEDS ORDERED: VANCOMYCIN 1,000 MG in DEXTROSE 5%-WATER - 250 ML IVPB ONE (08:00)
[2016-10-19 08:52] LABS: BASOPHIL 0.6 % (0-2.0); MCH 24.3 pg (25.7-33.7); MCHC 31.1 g/dl (32.0-35.9); MEAN PLT VOLUME 7.3 fl (7.5-11.1); NEUTROPHILS 59.6 % (42.8-82.8); PLATELET COUNT 328 K/MM3 (134-434); RDW 20.3 % (11.9-15.9); WHITE BLOOD COUNT 10.7 K/mm3 (4.0-10.0)
--- NOTE | 2016-10-19 09:15 | PN ---
Progress Note (short form) - Note Progress Note: SUBJECTIVE: The patient was seen at dialysis, he states he will "not go to [facility]". Awaiting call back from case management to discuss how to proceed Current Medications Generic Name Dose Route Start Last Admin Trade Name Silver PRN Reason Stop Dose Admin Acetaminophen 650 mg 10/03/16 13:10 10/14/16 23:01 Tylenol - PO 650 mg Q4H PRN Administration FEVER OR PAIN Amlodipine Besylate 10 mg 10/09/16 10:00 10/18/16 10:57 Norvasc - PO 10 mg DAILY [facility] Administration Benzocaine/Menthol 1 each 10/03/16 13:10 Cepacol Lozenge - MM Q4H PRN SORE THROAT Collagenase 1 applic 10/04/16 10:00 10/18/16 10:57 Santyl - TP 1 applic DAILY [facility] Administration Finasteride 5 mg 10/13/16 10:00 10/18/16 10:57 Proscar - PO 5 mg DAILY [facility] Administration Furosemide 100 mg 10/10/16 10:00 10/18/16 10:56 Lasix - PO 100 mg DAILY [facility] Administration Insulin Aspart 1 vial 10/03/16 16:30 10/19/16 06:00 Novolog Vial Sliding Scale - SQ Not Given ACHS [facility] Protocol Insulin Detemir 12 units 10/19/16 07:00 10/19/16 06:42 Levemir Vial SQ 12 unit AM [facility] Administration Insulin Detemir 12 units 10/18/16 22:00 10/18/16 21:53 Levemir Vial SQ 12 unit HS [facility] Administration Metoprolol Succinate 50 mg 10/08/16 18:31 10/18/16 21:55 Toprol Xl - PO 50 mg HS [facility] Administration OBJECTIVE: Vital Signs Period Temp Pulse Resp BP Sys/Vogt Pulse Ox Last 24 Hr 97.6 F-98.9 F 80-119 18-20 91-144/41-74 96 Physical Exam Refused CBCD WBC 10.5 K/mm3 (4.0-10.0) H 10/18/16 08:00 RBC 3.68 M/mm3 (4.00-5.60) L 10/18/16 08:00 Hgb 8.9 GM/dL (11.7-16.9) L 10/18/16 08:00 Hct 28.6 % (35.4-49) L 10/18/16 08:00 MCV 77.9 fl (80-96) L 10/18/16 08:00 MCHC 31.0 g/dl (32.0-35.9) L 10/18/16 08:00 RDW 20.1 % (11.9-15.9) H 10/18/16 08:00 Plt Count 322 K/MM3 (134-434) 10/18/16 08:00 MPV 7.1 fl (7.5-11.1) L 10/18/16 08:00 CMP Sodium 139 mmol/L (136-145) 10/18/16 08:00 Potassium 3.9 mmol/L (3.5-5.1) 10/18/16 08:00 Chloride 97 mmol/L (98-107) L 10/18/16 08:00 Carbon Dioxide 32 mmol/L (21-32) 10/18/16 08:00 Anion Gap 10 (8-16) 10/18/16 08:00 BUN 42 mg/dL (7-18) H 10/18/16 08:00 Creatinine 4.2 mg/dL (0.7-1.3) H 10/18/16 08:00 Creat Clearance w eGFR 14.27 (>60) 10/18/16 08:00 Random Glucose 79 mg/dL (74-106) 10/18/16 08:00 Calcium 8.3 mg/dL (8.5-10.1) L 10/18/16 08:00 Total Bilirubin 0.3 mg/dL (0.2-1.0) 10/18/16 08:00 AST 12 U/L (15-37) L 10/18/16 08:00 ALT 12 U/L (12-78) 10/18/16 08:00 Alkaline Phosphatase 64 U/L (45-117) 10/18/16 08:00 Total Protein 6.5 g/dl (6.4-8.2) 10/18/16 08:00 Albumin 1.9 g/dl (3.4-5.0) L 10/18/16 08:00 CARDIAC ENZYMES Creatine Kinase 343 IU/L (39-308) H D 09/23/16 23:30 Troponin I 0.04 ng/ml (0.00-0.05) D 09/23/16 23:30 Microbiology 10/04/16 14:55 Blood - Peripheral Venous Blood Culture - Final NO GROWTH AFTER 5 DAYS INCUBATION 10/04/16 14:50 Blood - Peripheral Venous Blood Culture - Final NO GROWTH AFTER 5 DAYS INCUBATION 10/01/16 19:55 Blood - Peripheral Venous Blood Culture - Final NO GROWTH AFTER 5 DAYS INCUBATION 10/01/16 19:50 Blood - Peripheral Venous Blood Culture - Final NO GROWTH AFTER 5 DAYS INCUBATION 09/27/16 16:30 Decubiti Gram Stain - Final 09/27/16 16:30 Decubiti Wound Culture - Final Morganella Morganii Enterococcus Faecalis Mr S Aureus Vr Ec Faecium 09/27/16 17:20 Blood - Peripheral Venous Blood Culture - Final NO GROWTH AFTER 5 DAYS INCUBATION 09/27/16 17:20 Blood - Peripheral Venous Blood Culture - Final NO GROWTH AFTER 5 DAYS INCUBATION 09/24/16 07:40 Blood - Pre-Dialysis Blood Culture - Final Mr S Aureus Beta Hem Streptococcus Group F Bacteroides Fragilis 09/24/16 07:15 Blood - Pre-Dialysis Blood Culture - Final Mr S Aureus Beta Hem Streptococcus Group F 09/24/16 01:00 Blood - Peripheral Venous Blood Culture - Final Beta Hem Streptococcus Group F Mr S Aureus 09/24/16 00:30 Blood - Peripheral Venous Blood Culture - Final Beta Hem Streptococcus Group F Mr S Aureus 09/24/16 20:45 Stool Salmonella/Shigella Culture - Final NO GROWTH OF SALMONELLA OR SHIGELLA SPECIES OBTAINED 09/24/16 20:45 Stool Campylobacter Culture - Final NO GROWTH OF CAMPYLOBACTER SPECIES OBTAINED 09/24/16 20:45 Stool Yersinia Culture - Final NO GROWTH OF YERSINIA SPECIES OBTAINED 09/24/16 20:45 Stool Vibrio Culture - Final NO GROWTH OF VIBRIO SPECIES OBTAINED 09/24/16 20:45 Stool Escherichia coli 0157 Culture - Final NO GROWTH OF E COLI 0157 OBTAINED 09/24/16 01:20 Urine - Urine Clean Catch Urine Culture - Final Citrobacter Freundii Complex Acinetobacter Baumannii/Haemol 09/24/16 20:45 Stool Clostridium difficile Antigen (JADYN) - Final 09/24/16 20:45 Stool Clostridium difficile Toxin Assay - Final Assessment: This is a 66 year old male with PMHx of ESRD- on HD () with permacath, pending mapping for AV-Fistula, HTN, [place] (01/2016), DM, COPD, Sacral Decubital Ulcers presented with diarrhea, sp fall. He was found to be in DKA, hyperkalemia, and transferred to the ICU for septic shock d/t uti and probable sacral ulcers. Plan: 1) ID: Septic shock 2/2 polymicrobial bacteremia - Vancomycin with HD last dose 10/22 - ECHO with highly mobile mass consistent with a torn or redundant chordae. A vegetation on the mitral valve cannot be excluded - Cultures as above - Appreciate ID consult Sacral Debuital ulcers - S/p debridement in OR 09/27 - Santyl daily - Appreciate surgery consult 2) Endocrine: DKA - Resolved - BGM ACHS - ISS ACHS - Levemir 12u sq qhs - Levemir 12u sq qam 3) Cardiology: CAD s/p [place] 2015 - Continue Metoprolol XL HTN - Continue Norvasc 4) : ESRD - Tolerating HD today - Lasix 100mg IVPB daily - Appreciate nephrology consult 4) Heme: Anemia 2/2 chronic disease - Monitor H/H 5) F/E/N: - Monitor electrolytes - Renal, diabetic diet 6) Prophylaxis: - Heparin 5,000u sq tid 7) Dipso: - Patient was discharged on 10/17, however is refusing now to go to [facility]. Awaiting further discussion with case management re: how to proceed. - Unsafe for discharge home CODE STATUS: FULL CODE Visit type - Emergency Visit Emergency Visit: Yes ED Registration Date: 09/24/16 Care time: The patient presented to the Emergency Department on the above date and was hospitalized for further evaluation of their emergent condition. - New Patient This patient is new to me today: No - Critical Care Critical Care patient: No
[2016-10-19 09:27] LABS: ALBUMIN 1.8 g/dl (3.4-5.0); ALK PHOS 68 U/L (45-117); ANION GAP 11 (8-16); BILIRUBIN,TOTAL 0.3 mg/dL (0.2-1.0); CALCIUM 8.1 mg/dL (8.5-10.1); CO2 28 mmol/L (21-32); CREATININE 5.3 mg/dL (0.7-1.3); GLUCOSE,RANDOM 80 mg/dL (74-106); SGOT/AST 10 U/L (15-37); SGPT/ALT 10 U/L (12-78); TOT PROT 6.4 g/dl (6.4-8.2)
--- NOTE | 2016-10-19 10:02 | PN ---
Progress Note (short form) - Note Progress Note: Renal Follow up for ESRD on HD Pt seen and examined during dialysis BP 118/70, catheter with good flow pt without complaints s/p isolated UF yesterday will get Vanco with Hd Vital Signs Temperature 98.2 F 10/19/16 07:25 Pulse Rate 88 10/19/16 08:30 Respiratory Rate 18 10/19/16 08:30 Blood Pressure 94/54 10/19/16 08:30 O2 Sat by Pulse Oximetry (%) 96 10/18/16 21:00 Intake & Output 10/16/16 10/17/16 10/18/16 10/19/16 23:59 23:59 23:59 23:59 Intake Total 200 500 680 Balance 200 500 680 Gen: NAD on NC, awake and alert CVS: RRR, NO M/R Lungs: dec BS at lung bases, b/l air entry Ext: 2+ edema in b/l LE CBC, BMP 10/19/16 07:30 10/19/16 07:30 Laboratory Tests 10/17/16 10/19/16 08:00 07:30 Calcium 8.2 L 8.1 L Phosphorus 4.8 Albumin 1.9 L 1.8 L Current Medications Acetaminophen (Tylenol -) 650 mg PO Q4H PRN PRN Reason: FEVER OR PAIN Last Admin: 10/14/16 23:01 Dose: 650 mg Amlodipine Besylate (Norvasc -) 10 mg PO DAILY [facility] Last Admin: 10/18/16 10:57 Dose: 10 mg Benzocaine/Menthol (Cepacol Lozenge -) 1 each MM Q4H PRN PRN Reason: SORE THROAT Collagenase (Santyl -) 1 applic TP DAILY [facility] Last Admin: 10/18/16 10:57 Dose: 1 applic Finasteride (Proscar -) 5 mg PO DAILY [facility] Last Admin: 10/18/16 10:57 Dose: 5 mg Furosemide (Lasix -) 100 mg PO DAILY [facility] Last Admin: 10/18/16 10:56 Dose: 100 mg Heparin Sodium (Porcine) (Heparin -) 5,000 unit SQ TID [facility] Insulin Aspart (Novolog Vial Sliding Scale -) 1 vial SQ ACHS [facility] PRN Reason: Protocol Last Admin: 10/19/16 06:00 Dose: Not Given Insulin Detemir (Levemir Vial) 12 units SQ AM [facility] Last Admin: 10/19/16 06:42 Dose: 12 unit Insulin Detemir (Levemir Vial) 12 units SQ HS [facility] Last Admin: 10/18/16 21:53 Dose: 12 unit Metoprolol Succinate (Toprol Xl -) 50 mg PO HS [facility] Last Admin: 10/18/16 21:55 Dose: 50 mg A/P 66 year old gentleman with PMhx of ESRD on HD, CAD, CHF, IDDM, Sacral Decubitis who presented with weakness and fall and found to have SIRS/Sepsis with DKA and hyperkalemia and metabolic acidosis. #SIRS/Sepsis/Sacral Decubitis vanco level is 8 today, will give Vanco 1g with HD #ESRD on HD toleating HD wel UF 3.5L as tolerated will continue aggressive UF with HD as pt significant edema #Micocytoic Anemia high dose EPO with HD Goal Hgb level is 10 Dominick Vanegas DO
[2016-10-19] MEDS ORDERED: INSULIN (NOVOLOG) ASPART 100 UNITS/ML 10ML VIAL ONE (11:49)
[2016-10-19] MEDS: FINASTERIDE 5 MG TABLET (FP) PO SCH (12:02)
[2016-10-19] MEDS: FUROSEMIDE 40 MG TABLET (FP) PO SCH (12:02)
[2016-10-19] MEDS: amLODIPine BESYLATE 10 MG TABLET (FP) PO SCH (12:02)
[2016-10-19] MEDS: COLLAGENASE CLOSTRIDIUM HIST. 30 GRAMS TUBE TP SCH (12:02)
[2016-10-19] MEDS: HEPARIN NA (PORCINE) 5,000 UNITS/ML 1ML VIAL SQ SCH ×2 (15:57→22:07)
[2016-10-19] MEDS: METOPROLOL SUCCINATE 50 MG TAB.SR.24H (FP) PO SCH (22:07)
[2016-10-19] MEDS ORDERED: INSULIN (NOVOLOG) ASPART 100 UNITS/ML 10ML VIAL SQ ONE (22:54)
[2016-10-20] MEDS: HEPARIN NA (PORCINE) 5,000 UNITS/ML 1ML VIAL SQ SCH ×3 (06:14→22:41)
[2016-10-20] MEDS: INSULIN DETEMIR 100 UNITS/ML MDV SQ SCH ×2 (06:15→22:41)
[2016-10-20] MEDS: INSULIN SLIDING SCALE (NOVOLOG) 1 VIAL SQ SCH ×4 (06:16→22:30)
--- NOTE | 2016-10-20 11:09 | PN ---
Progress Note (short form) - Note Progress Note: SUBJECTIVE: The patient was seen at the bedside, he is still stating he will not go to [facility] and that he would like to go home Current Medications Generic Name Dose Route Start Last Admin Trade Name Silver PRN Reason Stop Dose Admin Acetaminophen 650 mg 10/03/16 13:10 10/14/16 23:01 Tylenol - PO 650 mg Q4H PRN Administration FEVER OR PAIN Amlodipine Besylate 10 mg 10/09/16 10:00 10/19/16 12:02 Norvasc - PO 10 mg DAILY [facility] Administration Benzocaine/Menthol 1 each 10/03/16 13:10 Cepacol Lozenge - MM Q4H PRN SORE THROAT Collagenase 1 applic 10/04/16 10:00 10/19/16 12:02 Santyl - TP 1 applic DAILY [facility] Administration Finasteride 5 mg 10/13/16 10:00 10/19/16 12:02 Proscar - PO 5 mg DAILY [facility] Administration Furosemide 100 mg 10/10/16 10:00 10/19/16 12:02 Lasix - PO 100 mg DAILY [facility] Administration Heparin Sodium (Porcine) 5,000 unit 10/19/16 14:00 10/20/16 06:14 Heparin - SQ 5,000 unit TID [facility] Administration Insulin Aspart 1 vial 10/03/16 16:30 10/20/16 06:16 Novolog Vial Sliding Scale - SQ Not Given ACHS [facility] Protocol Insulin Detemir 12 units 10/19/16 07:00 10/20/16 06:15 Levemir Vial SQ 12 unit AM [facility] Administration Insulin Detemir 12 units 10/18/16 22:00 10/19/16 22:06 Levemir Vial SQ 12 unit HS [facility] Administration Metoprolol Succinate 50 mg 10/08/16 18:31 10/19/16 22:07 Toprol Xl - PO Not Given HS [facility] OBJECTIVE: Vital Signs Period Temp Pulse Resp BP Sys/Vogt Pulse Ox Last 24 Hr 97.9 F-99.6 F 90-109 18-20 101-135/55-90 95 Physical Exam Refused CBCD WBC 10.7 K/mm3 (4.0-10.0) H 10/19/16 07:30 RBC 3.54 M/mm3 (4.00-5.60) L 10/19/16 07:30 Hgb 8.6 GM/dL (11.7-16.9) L 10/19/16 07:30 Hct 27.6 % (35.4-49) L 10/19/16 07:30 MCV 78.0 fl (80-96) L 10/19/16 07:30 MCHC 31.1 g/dl (32.0-35.9) L 10/19/16 07:30 RDW 20.3 % (11.9-15.9) H 10/19/16 07:30 Plt Count 328 K/MM3 (134-434) 10/19/16 07:30 MPV 7.3 fl (7.5-11.1) L 10/19/16 07:30 CMP Sodium 135 mmol/L (136-145) L 10/19/16 07:30 Potassium 4.2 mmol/L (3.5-5.1) 10/19/16 07:30 Chloride 96 mmol/L (98-107) L 10/19/16 07:30 Carbon Dioxide 28 mmol/L (21-32) 10/19/16 07:30 Anion Gap 11 (8-16) 10/19/16 07:30 BUN 57 mg/dL (7-18) H D 10/19/16 07:30 Creatinine 5.3 mg/dL (0.7-1.3) H D 10/19/16 07:30 Creat Clearance w eGFR 10.91 (>60) 10/19/16 07:30 Random Glucose 555 mg/dL (74-106) H* D 10/19/16 21:45 Calcium 8.1 mg/dL (8.5-10.1) L 10/19/16 07:30 Total Bilirubin 0.3 mg/dL (0.2-1.0) 10/19/16 07:30 AST 10 U/L (15-37) L 10/19/16 07:30 ALT 10 U/L (12-78) L 10/19/16 07:30 Alkaline Phosphatase 68 U/L (45-117) 10/19/16 07:30 Total Protein 6.4 g/dl (6.4-8.2) 10/19/16 07:30 Albumin 1.8 g/dl (3.4-5.0) L 10/19/16 07:30 CARDIAC ENZYMES Creatine Kinase 343 IU/L (39-308) H D 09/23/16 23:30 Troponin I 0.04 ng/ml (0.00-0.05) D 09/23/16 23:30 Microbiology 10/04/16 14:55 Blood - Peripheral Venous Blood Culture - Final NO GROWTH AFTER 5 DAYS INCUBATION 10/04/16 14:50 Blood - Peripheral Venous Blood Culture - Final NO GROWTH AFTER 5 DAYS INCUBATION 10/01/16 19:55 Blood - Peripheral Venous Blood Culture - Final NO GROWTH AFTER 5 DAYS INCUBATION 10/01/16 19:50 Blood - Peripheral Venous Blood Culture - Final NO GROWTH AFTER 5 DAYS INCUBATION 09/27/16 16:30 Decubiti Gram Stain - Final 09/27/16 16:30 Decubiti Wound Culture - Final Morganella Morganii Enterococcus Faecalis Mr S Aureus Vr Ec Faecium 09/27/16 17:20 Blood - Peripheral Venous Blood Culture - Final NO GROWTH AFTER 5 DAYS INCUBATION 09/27/16 17:20 Blood - Peripheral Venous Blood Culture - Final NO GROWTH AFTER 5 DAYS INCUBATION 09/24/16 07:40 Blood - Pre-Dialysis Blood Culture - Final Mr S Aureus Beta Hem Streptococcus Group F Bacteroides Fragilis 09/24/16 07:15 Blood - Pre-Dialysis Blood Culture - Final Mr S Aureus Beta Hem Streptococcus Group F 09/24/16 01:00 Blood - Peripheral Venous Blood Culture - Final Beta Hem Streptococcus Group F Mr S Aureus 09/24/16 00:30 Blood - Peripheral Venous Blood Culture - Final Beta Hem Streptococcus Group F Mr S Aureus 09/24/16 20:45 Stool Salmonella/Shigella Culture - Final NO GROWTH OF SALMONELLA OR SHIGELLA SPECIES OBTAINED 09/24/16 20:45 Stool Campylobacter Culture - Final NO GROWTH OF CAMPYLOBACTER SPECIES OBTAINED 09/24/16 20:45 Stool Yersinia Culture - Final NO GROWTH OF YERSINIA SPECIES OBTAINED 09/24/16 20:45 Stool Vibrio Culture - Final NO GROWTH OF VIBRIO SPECIES OBTAINED 09/24/16 20:45 Stool Escherichia coli 0157 Culture - Final NO GROWTH OF E COLI 0157 OBTAINED 09/24/16 01:20 Urine - Urine Clean Catch Urine Culture - Final Citrobacter Freundii Complex Acinetobacter Baumannii/Haemol 09/24/16 20:45 Stool Clostridium difficile Antigen (JADYN) - Final 09/24/16 20:45 Stool Clostridium difficile Toxin Assay - Final Assessment: This is a 66 year old male with PMHx of ESRD- on HD (//Fri) with permacath, pending mapping for AV-Fistula, HTN, [place] (01/2016), DM, COPD, Sacral Decubital Ulcers presented with diarrhea, sp fall. He was found to be in DKA, hyperkalemia, and transferred to the ICU for septic shock d/t uti and probable sacral ulcers. Plan: 1) ID: Septic shock 2/2 polymicrobial bacteremia - Vancomycin with HD last dose 10/22 - ECHO with highly mobile mass consistent with a torn or redundant chordae. A vegetation on the mitral valve cannot be excluded - Cultures as above - Appreciate ID consult Sacral Debuital ulcers - S/p debridement in OR 09/27 - Santyl daily - Appreciate surgery consult 2) Endocrine: DKA - Resolved - BGM ACHS - ISS ACHS - Levemir 12u sq qhs - Levemir 12u sq qam 3) Cardiology: CAD s/p [place] 2015 - Continue Metoprolol XL HTN - Continue Norvasc 4) : ESRD - Tolerating HD today - Lasix 100mg IVPB daily - Appreciate nephrology consult 4) Heme: Anemia 2/2 chronic disease - Monitor H/H 5) F/E/N: - Monitor electrolytes - Renal, diabetic diet 6) Prophylaxis: - Heparin 5,000u sq tid 7) Dipso: - Patient was discharged on 10/17, however is refusing now to go to [facility]. Awaiting further discussion with case management re: how to proceed. - Unsafe for discharge home - Patient now expressing he would like to sign out AMA CODE STATUS: FULL CODE Visit type - Emergency Visit Emergency Visit: Yes ED Registration Date: 09/24/16 Care time: The patient presented to the Emergency Department on the above date and was hospitalized for further evaluation of their emergent condition. - New Patient This patient is new to me today: No - Critical Care Critical Care patient: No
[2016-10-20] MEDS: FUROSEMIDE 40 MG TABLET (FP) PO SCH (12:12)
[2016-10-20] MEDS: FINASTERIDE 5 MG TABLET (FP) PO SCH (12:12)
[2016-10-20] MEDS: COLLAGENASE CLOSTRIDIUM HIST. 30 GRAMS TUBE TP SCH ×2 (12:14→20:14)
[2016-10-20] MEDS: amLODIPine BESYLATE 10 MG TABLET (FP) PO SCH (12:18)
[2016-10-20] MEDS: METOPROLOL SUCCINATE 50 MG TAB.SR.24H (FP) PO SCH (22:41)
[2016-10-20] MEDS ORDERED: INSULIN (NOVOLOG) ASPART 100 UNITS/ML 10ML VIAL SQ ONE (22:54)
[2016-10-21] MEDS: HEPARIN NA (PORCINE) 5,000 UNITS/ML 1ML VIAL SQ SCH ×2 (06:43→14:21)
[2016-10-21] MEDS: INSULIN DETEMIR 100 UNITS/ML MDV SQ SCH (06:44)
[2016-10-21] MEDS: INSULIN SLIDING SCALE (NOVOLOG) 1 VIAL SQ SCH ×2 (06:45→11:42)
[2016-10-21] MEDS ORDERED: PT OWN MED DRAWER 7, Y5N ONE (09:14)
--- NOTE | 2016-10-21 09:19 | DS ---
Physical Examination Vital Signs: Vital Signs Temperature 98 F 10/21/16 05:54 Pulse Rate 106 H 10/21/16 05:54 Respiratory Rate 20 10/21/16 05:54 Blood Pressure 107/64 10/21/16 05:54 O2 Sat by Pulse Oximetry (%) 97 10/20/16 20:46 Findings/Remarks: Refused exam Labs: CBC, BMP 10/19/16 07:30 10/19/16 21:45 Discharge Summary Reason For Visit: RENAL FAILURE ANEMIA Current Active Problems Diarrhea (Acute) Polymicrobial bacterial infection (Acute) Hospital Course: Please see discharge summary from 10/17. The patient is being discharged to [facility] today Condition: Stable - Instructions Diet, Activity, Other Instructions: Mr. Becker: Please continue dialysis at your new facility as per Dr. Perez and Dr. Guilherme Tan. Please continue vancomycin at HD, you will need additional 11 days from 2016. Vanco levels to be drawn during dialysis. Wound care orders - sacral wound: Cleanse the wound site and remove as much debris as possible. Cleanse wound with sterile saline only. Apply [place] ointment directly to the wound with a sterile gauze pad. Apply a 2mm thickness of Santyl to the wound Secure wound with sterile dressing. Do not use dressings with Silver AG or iodine. Referrals: Sunny Cardenas MD [Staff Physician] - Michael Eubanks MD [Staff Physician] - Marty Atkins MD [Staff Physician] - Disposition: ALF FACILITY - Home Medications Comprehensive Discharge Medication List: Ambulatory Orders Metoprolol Succinate [Toprol XL -] 50 mg PO HS 01/24/16 Amlodipine Besylate [Norvasc -] 10 mg PO DAILY #30 tablet 01/26/16 Acetaminophen [Tylenol .Regular Strength -] 650 mg PO Q4H PRN #0 tablet Amlodipine Besylate [Norvasc -] 10 mg PO DAILY tablet 10/17/16 Collagenase Clostridium Hist. [Santyl -] 1 applic TP DAILY tube 10/17/16 Finasteride [Proscar -] 5 mg PO DAILY tablet 10/17/16 Heparin - 5,000 unit SQ TID vial 10/17/16 Insulin Sliding Scale [Novolog Vial Sliding Scale -] 1 vial SQ ACHS units 10/17 Insulin (Levemir) [Levemir Vial] 12 units SQ AM ml 10/18/16 Insulin (Levemir) [Levemir Vial] 12 units SQ HS ml 10/18/16 Furosemide [Lasix] 100 mg PO DAILY #30 tablet 10/21/16 This patient is new to me today: No Emergency Visit: Yes ED Registration Date: 09/24/16 Care time: The patient presented to the Emergency Department on the above date and was hospitalized for further evaluation of their emergent condition. Critical Care patient: No - Discharge Referral Referred to [facility] No Physician Referral: Sunny Sims MD ([facility]), Tonio Longoria DO ([facility])
[2016-10-21] MEDS: FINASTERIDE 5 MG TABLET (FP) PO SCH (09:20)
[2016-10-21] MEDS: amLODIPine BESYLATE 10 MG TABLET (FP) PO SCH (09:20)
[2016-10-21] MEDS: FUROSEMIDE 40 MG TABLET (FP) PO SCH (09:20)
--- NOTE | 2016-10-21 11:08 | PN ---
Progress Note (short form) - Note Progress Note: Renal Follow up for ESRD on HD Pt seen and examined at the bedside no acute complaints awaiting discharge today vs. tomorrow Vital Signs Temperature 98 F 10/21/16 09:15 Pulse Rate 108 H 10/21/16 09:15 Respiratory Rate 20 10/21/16 09:15 Blood Pressure 141/90 10/21/16 09:15 O2 Sat by Pulse Oximetry (%) 97 10/20/16 20:46 Intake & Output 10/18/16 10/19/16 10/20/16 10/21/16 23:59 23:59 23:59 23:59 Intake Total 680 120 240 Balance 680 120 240 Gen: NAD on NC, awake and alert CVS: RRR, NO M/R Lungs: dec BS at lung bases, b/l air entry Ext: 2+ edema in b/l LE CBC, BMP 10/19/16 07:30 10/19/16 21:45 Current Medications Acetaminophen (Tylenol -) 650 mg PO Q4H PRN PRN Reason: FEVER OR PAIN Last Admin: 10/14/16 23:01 Dose: 650 mg Amlodipine Besylate (Norvasc -) 10 mg PO DAILY [facility] Last Admin: 10/21/16 09:20 Dose: 10 mg Benzocaine/Menthol (Cepacol Lozenge -) 1 each MM Q4H PRN PRN Reason: SORE THROAT Collagenase (Santyl -) 1 applic TP DAILY [facility] Last Admin: 10/20/16 20:14 Dose: Not Given Finasteride (Proscar -) 5 mg PO DAILY [facility] Last Admin: 10/21/16 09:20 Dose: 5 mg Furosemide (Lasix -) 100 mg PO DAILY [facility] Last Admin: 10/21/16 09:20 Dose: 100 mg Heparin Sodium (Porcine) (Heparin -) 5,000 unit SQ TID [facility] Last Admin: 10/21/16 06:43 Dose: 5,000 unit Insulin Aspart (Novolog Vial Sliding Scale -) 1 vial SQ ACHS [facility] PRN Reason: Protocol Last Admin: 10/21/16 06:45 Dose: 2 units Insulin Detemir (Levemir Vial) 12 units SQ AM [facility] Last Admin: 10/21/16 06:44 Dose: 12 unit Insulin Detemir (Levemir Vial) 12 units SQ HS [facility] Last Admin: 10/20/16 22:41 Dose: 12 unit Metoprolol Succinate (Toprol Xl -) 50 mg PO HS [facility] Last Admin: 10/20/16 22:41 Dose: 50 mg A/P 66 year old gentleman with PMhx of ESRD on HD, CAD, CHF, IDDM, Sacral Decubitis who presented with weakness and fall and found to have SIRS/Sepsis with DKA and hyperkalemia and metabolic acidosis. #SIRS/Sepsis/Sacral Decubitis Will continue VAnco with HD as per ID recs wound care #ESRD on HD no indication for dialysis today, next treatment bakari #Micocytoic Anemia high dose EPO with HD Goal Hgb level is 10 Dominick Vanegas DO
[2016-10-21] MEDS ORDERED: VANCOMYCIN 1,000 MG in DEXTROSE 5%-WATER - 250 ML IVPB ONE (11:11)
[2016-10-21 11:22] VITALS: PULSE 102
[2016-10-21] MEDS: COLLAGENASE CLOSTRIDIUM HIST. 30 GRAMS TUBE TP SCH (14:22)
[2016-10-21 15:18] VITALS: BP 121/59; TEMP 97.7
[2016-10-22] MEDS ORDERED: HEPARIN NA (PORCINE) 5,000 UNITS/ML 1ML VIAL IVPUSH ONE (06:00)
[2016-10-22] MEDS ORDERED: EPOETIN ALFA 20,000 UNIT/1 ML VIAL IVPUSH ONE (06:00)
== END 2016-10-21 15:34 | DRG 853 ==
LOC: JER 21:23 → JERBED 09-24 01:00 → UNDOADMIN 09-24 01:12 → JERBED 09-24 01:12 → JICU 09-24 06:54 → J5S 10-01 01:10 → J7W 10-04 20:16
PROVIDERS: ADMIT Internal Medicine; ATTEND Registered Nurse
PROC: 0KBN0ZZ Excision of Right Hip Muscle, Open Approach (ICD-10-PCS; 2016-09-27)
PROC: 0KBP0ZZ Excision of Left Hip Muscle, Open Approach (ICD-10-PCS; principal; 2016-09-27 14:00)
PROC: 02H633Z Insertion of Infusion Device into Right Atrium, Percutaneous Approach (ICD-10-PCS; 2016-09-28)
PROC: B244ZZZ Ultrasonography of Right Heart (ICD-10-PCS; 2016-09-28)
PROC: 02HV33Z Insertion of Infusion Device into Superior Vena Cava, Percutaneous Approach (ICD-10-PCS; 2016-10-03)
PROC: 06HM33Z Insertion of Infusion Device into Right Femoral Vein, Percutaneous Approach (ICD-10-PCS; 2016-10-03)
PROC: 5A1D60Z (ICD-10-PCS; 2016-10-12)
DX: A40.9 Streptococcal sepsis, unspecified (principal); N18.6 End stage renal disease; R65.21 Severe sepsis with septic shock; I50.23 Acute on chronic systolic (congestive) heart failure; J18.9 Pneumonia, unspecified organism; E13.10 Other specified diabetes mellitus with ketoacidosis without coma; E87.1 Hypo-osmolality and hyponatremia; N17.9 Acute kidney failure, unspecified; N39.0 Urinary tract infection, site not specified; E87.2 Acidosis; I13.2 Hypertensive heart and chronic kidney disease with heart failure and with stage 5 chronic kidney disease, or end stage renal disease; L03.115 Cellulitis of right lower limb; E87.5 Hyperkalemia; I25.2 Old myocardial infarction; J44.9 Chronic obstructive pulmonary disease, unspecified; Z87.891 Personal history of nicotine dependence; E11.22 Type 2 diabetes mellitus with diabetic chronic kidney disease; Z99.2 Dependence on renal dialysis; I25.10 Atherosclerotic heart disease of native coronary artery without angina pectoris; Z79.4 Long term (current) use of insulin; D50.9 Iron deficiency anemia, unspecified; K52.9 Noninfective gastroenteritis and colitis, unspecified; Z91.14 Patient's other noncompliance with medication regimen; D63.8 Anemia in other chronic diseases classified elsewhere; E11.649 Type 2 diabetes mellitus with hypoglycemia without coma; E11.51 Type 2 diabetes mellitus with diabetic peripheral angiopathy without gangrene; N40.0 Benign prostatic hyperplasia without lower urinary tract symptoms
CPT/HCPCS: 36415; 36430; 36600; 71010-TC; 76000-TC; 80048; 80053; 81003; 81015; 82009; 82272; 82550; 82553; 82565; 82728; 82803; 82947; 83036; 83540; 83550; 83605; 83690; 83735; 83880; 84100; 84132; 84484; 84520; 85025; 85027; 85610; 85651; 86140; 86704; 86706; 86708; 86803; 86850; 86900; 86901; 86922; 87040; 87045; 87046; 87070; 87086; 87177; 87186; 87205; 87209; 87324; 87340; 87449; 88300-TC; 88304-TC; 93005; 93010; 93306-TC; 93971-TC; 94760; 97116-GP; 97161-GP; 99285-25; G0480; J0885; J1644; P9047; P9058

== ENCOUNTER 2016-12-03 12:43 | Inpatient (IN) | payer OTHER ==
--- NOTE | 2016-12-03 13:06 | PDOC ---
History of Present Illness - General Chief Complaint: Blood Transfusion Stated Complaint: LOW ANEMIA Time Seen by Provider: 12/03/16 12:54 History Source: Patient - History of Present Illness Timing/Duration: reports: yesterday Associated Symptoms: reports: shortness of breath. denies: dizziness, fever/ chills, lightheadedness Past History - Past Medical History Allergies/Adverse Reactions: Allergies Allergy/AdvReac Type Severity Reaction Status Date / Time No Known Allergies Allergy Verified 12/03/16 13:13 Home Medications: Ambulatory Orders Metoprolol Succinate [Toprol XL -] 50 mg PO HS 01/24/16 Amlodipine Besylate [Norvasc -] 10 mg PO DAILY #30 tablet 01/26/16 Acetaminophen [Tylenol .Regular Strength -] 650 mg PO Q4H PRN #0 tablet Amlodipine Besylate [Norvasc -] 10 mg PO DAILY tablet 10/17/16 Collagenase Clostridium Hist. [Santyl -] 1 applic TP DAILY tube 10/17/16 Finasteride [Proscar -] 5 mg PO DAILY tablet 10/17/16 Heparin - 5,000 unit SQ TID vial 10/17/16 Insulin Sliding Scale [Novolog Vial Sliding Scale -] 1 vial SQ ACHS units 10/17 Insulin (Levemir) [Levemir Vial] 12 units SQ AM ml 10/18/16 Insulin (Levemir) [Levemir Vial] 12 units SQ HS ml 10/18/16 Furosemide [Lasix] 100 mg PO DAILY #30 tablet 10/21/16 Anemia: Yes Asthma: Yes Cardiac Disorders: Yes (mi january 2016) COPD: Yes CHF: Yes Diabetes: Yes (IDDM) Dialysis: Yes (HD TUE,THR,SAT) Disorders: Yes HTN: Yes HIV: Yes - Psycho/Social/Smoking Cessation Hx Anxiety: No Suicidal Ideation: No Smoking History: Unknown if ever smoked Have you smoked in the past 12 months: No Number of Cigarettes Smoked Daily: 20 If you are a former smoker, when did you quit?: january 2016 'Breaking Loose' booklet given: 08/12/16 Hx Alcohol Use: No Drug/Substance Use Hx: No Substance Use Type: None Hx Substance Use Treatment: No Review of Systems - Review of Systems Constitutional: No: Chills, Fever Respiratory: Yes: Shortness of Breath Cardiac (ROS): No: Chest Pain, Lightheadedness, Palpitations *Physical Exam - Physical Exam Comments: 12/03/16 13:27 appears pale General Appearance: Yes: Appropriately Dressed. No: Apparent Distress HEENT: positive: Normal Voice Neck: positive: Supple Respiratory/Chest: positive: Lungs Clear, Normal Breath Sounds. negative: Respiratory Distress Cardiovascular: positive: Regular Rate, S1, S2 Gastrointestinal/Abdominal: positive: Soft. negative: Tender Rectal Exam: positive: other (soft brown stool) Extremity: positive: Normal Inspection Integumentary: positive: Dry, Warm Neurologic: positive: Fully Oriented, Alert, Normal Mood/Affect ED Treatment Course - LABORATORY CBC & Chemistry Diagram: 12/03/16 13:40 12/03/16 13:40 - RADIOLOGY Radiology Studies Ordered: Category Date Time Status CHEST X-RAY PORTABLE* [RAD] Stat Radiology 12/03/16 12:58 Ordered Medical Decision Making - Medical Decision Making 12/03/16 13:00 66-year-old male history of hypertension, SC, CHF, COPD, diabetes, sacral decubitus ulcers, end-stage renal disease on dialysis (T/T/S), scheduled for dialysis today, last dialyzed on Friday, sent from [facility] for anemia. Found to have Hgb of 6.3 (lives at 7-9 at baseline). Pt is c/o shortness of breath that started yesterday. No CP, diaphoresis, n/v, leg edema, cough, f/c. Patient states she's had similar shortness of breath in the past and usually admitted for HD See exam Worsening anemia w/ SOB Hgb 6.3 at [place] this am (baseline 7-9) No reports of GIB Stable in ED but appears pale w/ soft brown guaiac negative stool -labs -will discuss transfusion w/ renal, ? transfuse during HD today 12/03/16 13:28 12/03/16 13:32 12/03/16 13:[address] Vanegas of renal states if hemoglobin less than 6 in ED, transfuse 1 unit in ED, otherwise, patient can be transfuse during hemodialysis later on today 12/03/16 13:51 12/03/16 14:19 Hgb 7.1. As per earlier d/w Dr Vanegas, pt to be transfused during HD today. Pending callback from Dr Turk to admit 12/03/16 14:19 12/03/16 14:34 Case d/w Dr Spence, covering for Dr Turk, states pt to be admitted to Dr Turk. 12/03/16 15:09 K >6, slightly hemolyzed per lab. Dr. Vanegas aware and states in addition to transfusing patient's 2 units during dialysis, will also resend K. States patient will be sent for HD shortly *DC/Admit/Observation/Transfer Diagnosis at time of Disposition: SOB (shortness of breath) Anemia Qualifiers: Anemia type: unspecified type Qualified Code(s): D64.9 - Anemia, unspecified - Discharge Dispostion Condition at time of disposition: Fair Admit: Yes - Referrals
[2016-12-03 13:18] VITALS: BMI 26.4
[2016-12-03] MEDS ORDERED: SODIUM CHLORIDE 500 ML IV STA (13:42)
[2016-12-03 14:08] LABS: BASOPHIL 0.5 % (0-2.0); EOSINOPHIL 1.8 % (0-4.5); MCH 24.7 pg (25.7-33.7); MCHC 30.9 g/dl (32.0-35.9); MEAN CELL VOLUME 79.9 fl (80-96); MEAN PLT VOLUME 6.6 fl (7.5-11.1); NEUTROPHILS 56.3 % (42.8-82.8); PLATELET COUNT 354 K/MM3 (134-434); RDW 19.7 % (11.9-15.9); WHITE BLOOD COUNT 8.1 K/mm3 (4.0-10.0)
[2016-12-03 14:31] LABS: ALBUMIN 2.1 g/dl (3.4-5.0); ANION GAP 12 (8-16); CALCIUM 8.7 mg/dL (8.5-10.1); CO2 23 mmol/L (21-32); CREATININE 7.4 mg/dL (0.7-1.3); GLUCOSE,RANDOM 261 mg/dL (74-106); SGPT/ALT 12 U/L (12-78)
[2016-12-03 14:33] LABS: INR 1.43 (0.82-1.09); PROTHROMBIN TIME (PATIENT) 15.8 SEC (9.98-11.88)
[2016-12-03 14:35] LABS: ALK PHOS 88 U/L (45-117); BILIRUBIN,TOTAL 0.2 mg/dL (0.2-1.0); CPK 48 IU/L (39-308); TOT PROT 7.3 g/dl (6.4-8.2); TROPONIN I < 0.02 ng/ml (0.00-0.05)
[2016-12-03 14:50] LABS: SGOT/AST 8 U/L (15-37)
[2016-12-03] MEDS ORDERED: ACETAMINOPHEN 325 MG TABLET (FP) PO PRN (14:56)
--- NOTE | 2016-12-03 16:09 | CON.NEP ---
Consult Consult Specialty:: Nephrology (Jose/Guilherme) Referred by:: ED Reason for Consultation:: ESRD on HD/Hyperkalemia/Anemia - History of Present Illness Chief Complaint: Hgb of 6.3 at outpatient dialysis center History of Present Illness: This is a 66 year old gentleman with PMhx of ERSD on HD TTS, Hypertension, DM Type 2, Sacral Osteomylitis who presented from his outpatient HD unit with Hgb of 6.3. Hgb last month was 9. Pt is getting long acting WILY in HD. Denies any bleeding. + SOB. NO chest pain. Last dialysis was Friday. 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 Cardio/Vascular: Yes: HTN Pulmonary: Yes: COPD Renal/: Yes: Renal Inusuff Endocrine: Yes: Diabetes Mellitus - Alcohol/Substance Use Hx Alcohol Use: No - Smoking History Smoking history: Unknown if ever smoked Have you smoked in the past 12 months: No Aproximately how many cigarettes per day: 20 If you are a former smoker, when did you quit?: january 2016 - Social History Usual Living Arrangement: With Significant Other ADL: Independent Home Medications - Allergies Allergies/Adverse Reactions: Allergies Allergy/AdvReac Type Severity Reaction Status Date / Time No Known Allergies Allergy Verified 12/03/16 13:13 - Home Medications Home Medications: Ambulatory Orders Metoprolol Succinate [Toprol XL -] 50 mg PO HS 01/24/16 Amlodipine Besylate [Norvasc -] 10 mg PO DAILY #30 tablet 01/26/16 Acetaminophen [Tylenol .Regular Strength -] 650 mg PO Q4H PRN #0 tablet Amlodipine Besylate [Norvasc -] 10 mg PO DAILY tablet 10/17/16 Collagenase Clostridium Hist. [Santyl -] 1 applic TP DAILY tube 10/17/16 Finasteride [Proscar -] 5 mg PO DAILY tablet 10/17/16 Heparin - 5,000 unit SQ TID vial 10/17/16 Insulin Sliding Scale [Novolog Vial Sliding Scale -] 1 vial SQ ACHS units 10/17 Insulin (Levemir) [Levemir Vial] 12 units SQ AM ml 10/18/16 Insulin (Levemir) [Levemir Vial] 12 units SQ HS ml 10/18/16 Furosemide [Lasix] 100 mg PO DAILY #30 tablet 10/21/16 Review of Systems - Review of Systems Constitutional: reports: No Symptoms Eyes: reports: No Symptoms HENT: reports: No Symptoms Neck: reports: No Symptoms Cardiovascular: reports: Shortness of Breath. denies: Chest Pain Respiratory: reports: SOB. denies: Cough, Hemoptysis, Orthopnea Gastrointestinal: reports: No Symptoms Genitourinary: reports: No Symptoms Neurological: reports: No Symptoms Nephrology Consult - Height Height: 6 ft - Weight Weight: 195 lb - BMI Body Mass Index (BMI): 26.4 - Lab Results Anion Gap: Anion Gap Anion Gap 12 (8-16) 12/03/16 13:40 - Imaging Chest X-ray: Report Reviewed - Physical Examination Vital Signs: Vital Signs Temperature 98 F 12/03/16 13:09 Pulse Rate 99 H 12/03/16 13:09 Respiratory Rate 18 12/03/16 13:09 Blood Pressure 112/77 12/03/16 13:09 O2 Sat by Pulse Oximetry (%) 97 12/03/16 13:09 Constitutional: Yes: No Distress HENT: Yes: Atraumatic Neck: Yes: Supple Cardiovascular: Yes: Regular Rate and Rhythm Respiratory: Yes: Regular, CTA Bilaterally Gastrointestinal: Yes: Normal Bowel Sounds Access for Hemodialysis: Permacath Edema: No Neurological: Yes: Alert Psychiatric: Yes: Alert Problem List - Problems (1) SOB (shortness of breath) Code(s): R06.02 - SHORTNESS OF BREATH (2) Anemia Code(s): D64.9 - ANEMIA, UNSPECIFIED Qualifiers: Anemia type: unspecified type Qualified Code(s): D64.9 - Anemia, unspecified (3) CHF (congestive heart failure) Code(s): I50.9 - HEART FAILURE, UNSPECIFIED (4) Diabetes Code(s): E11.9 - TYPE 2 DIABETES MELLITUS WITHOUT COMPLICATIONS Qualifiers: (5) End stage kidney disease Code(s): N18.6 - END STAGE RENAL DISEASE Assessment/Plan 66 year old gentleman with PMhx of ERSD on HD TTS, Hypertension, DM Type 2, Sacral Osteomylitis who presented from his outpatient HD unit with Hgb of 6.3. #ESRD on HD with Hyperkalemia For HD today with 2k bath for 3.5 hour treatment pt with history of non-compliance with full HD treatment Counseled pt on importance of completing treatment Renal Diet #Acute on Chronic Anemia stool occult blood is negative 2 Get 2 prbc with HD today Will continue mcfp WILY with outpatient HD #DM Type 2 insulin coverage #Hypertension Continue metoprolol and amlodipine no ELIOT/ARB because of recurrent hyperkalemia Thank you Will follow Dominick Vanegas DO
--- NOTE | 2016-12-03 18:49 | EKG ---
Test Reason : Blood Pressure : / mmHG Vent. Rate : 100 BPM Atrial Rate : 100 BPM P-R Int : 132 ms QRS Dur : 108 ms QT Int : 376 ms P-R-T Axes : 050 029 102 degrees QTc Int : 485 ms NORMAL SINUS RHYTHM POSSIBLE LEFT ATRIAL ENLARGEMENT PROLONGED QT ABNORMAL ECG WHEN COMPARED WITH ECG OF 07-OCT-2016 13:53, PREMATURE VENTRICULAR COMPLEXES ARE NO LONGER PRESENT REPEAT EKG IF CLINICALLY INDICATED Confirmed by AIDE FLORES MD ([id number]) on 12/03/2016 6:49:02 PM Referred By: Confirmed By:AIDE FLORES MD
[2016-12-03 19:58] LABS: ALBUMIN 1.9 g/dl (3.4-5.0); ANION GAP 13 (8-16); BILIRUBIN,TOTAL 0.3 mg/dL (0.2-1.0); CALCIUM 8.3 mg/dL (8.5-10.1); CO2 22 mmol/L (21-32); GLUCOSE,RANDOM 202 mg/dL (74-106); SGPT/ALT 11 U/L (12-78); TOT PROT 6.4 g/dl (6.4-8.2)
[2016-12-03 20:03] LABS: ALK PHOS 74 U/L (45-117); CREATININE 7.4 mg/dL (0.7-1.3)
[2016-12-03 20:29] LABS: SGOT/AST 3 U/L (15-37)
[2016-12-03] MEDS ORDERED: METOPROLOL SUCCINATE 50 MG TAB.SR.24H (FP) PO SCH (22:00)
[2016-12-03] MEDS ORDERED: INSULIN DETEMIR 100 UNITS/ML MDV SQ SCH (22:00)
[2016-12-03] MEDS: INSULIN (NOVOLOG) ASPART 100 UNITS/ML 10ML VIAL SQ SCH (22:34)
[2016-12-04] MEDS ORDERED: INSULIN DETEMIR 100 UNITS/ML MDV SQ SCH (07:00)
[2016-12-04] MEDS: INSULIN (NOVOLOG) ASPART 100 UNITS/ML 10ML VIAL SQ SCH ×2 (07:34→11:29)
--- NOTE | 2016-12-04 09:50 | HP ---
Admitting History and Physical - Primary Care Physician PCP: Joy Turk - Admission Chief Complaint: anemia History of Present Illness: here for transfusion Sent from [facility] for transfusion Pt's Hb was 6.3 . 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 Cardiovascular: Yes: HTN Pulmonary: Yes: COPD Renal/: Yes: Renal Inusuff Endocrine: Yes: Diabetes Mellitus - Smoking History Smoking history: Unknown if ever smoked Have you smoked in the past 12 months: No Aproximately how many cigarettes per day: 20 If you are a former smoker, when did you quit?: january 2016 - Alcohol/Substance Use Hx Alcohol Use: No - Social History ADL: Independent Home Medications - Allergies Allergies/Adverse Reactions: Allergies Allergy/AdvReac Type Severity Reaction Status Date / Time No Known Allergies Allergy Verified 12/03/16 13:13 - Home Medications Home Medications: Ambulatory Orders Metoprolol Succinate [Toprol XL -] 50 mg PO HS 01/24/16 Acetaminophen [Tylenol .Regular Strength -] 650 mg PO Q4H PRN #0 tablet Amlodipine Besylate [Norvasc -] 10 mg PO DAILY tablet 10/17/16 Collagenase Clostridium Hist. [Santyl -] 1 applic TP DAILY tube 10/17/16 Finasteride [Proscar -] 5 mg PO DAILY tablet 10/17/16 Furosemide [Lasix] 100 mg PO DAILY #30 tablet 10/21/16 Ascorbate Calcium [Vitamin C] 500 mg PO DAILY 12/03/16 Heparin - 5,000 unit SQ BID 12/03/16 Insulin (Levemir) [Levemir Vial] 12 unit SQ BID 12/03/16 Insulin (Novolog) [Novolog] 0 units SQ ACHS 12/03/16 Mag Hydrox/Al Hydrox/Simeth [Adrienne-Lanta Liquid] 10 ml PO ACHS 12/03/16 Mirtazapine [Remeron -] 7.5 mg PO DAILY 12/03/16 Vit A/Vitamin D3/E/Aloe V/Znox [Periguard Ointment] 0 gm TP ASDIR 12/03/16 Zinc Sulfate 220 mg PO DAILY 12/03/16 Review of Systems - Review of Systems Constitutional: denies: Chills, Fever Neck: denies: Decreased ROM Cardiovascular: denies: Chest Pain Respiratory: denies: Cough, PND, SOB Physical Examination Vital Signs: Vital Signs Temperature 98 F 12/03/16 13:09 Pulse Rate 67 12/03/16 20:30 Respiratory Rate 18 12/03/16 20:30 Blood Pressure 93/52 12/03/16 20:30 O2 Sat by Pulse Oximetry (%) 99 12/03/16 21:00 Constitutional: Yes: No Distress, Calm Cardiovascular: Yes: Regular Rate and Rhythm Respiratory: Yes: Diminished Gastrointestinal: Yes: Normal Bowel Sounds, Soft. No: Distention, Tenderness Edema: No Psychiatric: Yes: Alert, Oriented Labs: CBC, BMP 12/03/16 17:45 Imaging - Results Chest X-ray: Image Reviewed (pleural effusion right) EKG: Image Reviewed (Sinus) Problem List - Problems (1) Anemia Code(s): D64.9 - ANEMIA, UNSPECIFIED Qualifiers: Anemia type: unspecified type Qualified Code(s): D64.9 - Anemia, unspecified (2) Diabetes 1.5, managed as type 1 Code(s): E13.9 - OTHER SPECIFIED DIABETES MELLITUS WITHOUT COMPLICATIONS (3) Hyperkalemia Code(s): E87.5 - HYPERKALEMIA (4) End stage kidney disease Code(s): N18.6 - END STAGE RENAL DISEASE Assessment/Plan PLAN s/p 2 units prbc repeat labs today Renal eval noted will dc today of Hb has improved stool guaic negative likely anemia due to chronic disease
[2016-12-04] MEDS ORDERED: FUROSEMIDE 20 MG TABLET (FP) PO SCH (10:00)
[2016-12-04] MEDS ORDERED: COLLAGENASE CLOSTRIDIUM HIST. 30 GRAMS TUBE TP SCH (10:00)
[2016-12-04] MEDS ORDERED: amLODIPine BESYLATE 10 MG TABLET (FP) PO SCH (10:00)
[2016-12-04] MEDS ORDERED: FINASTERIDE 5 MG TABLET (FP) PO SCH (10:00)
[2016-12-04 10:23] LABS: MCH 26.3 pg (25.7-33.7); MCHC 32.5 g/dl (32.0-35.9); MEAN PLT VOLUME 6.1 fl (7.5-11.1); PLATELET COUNT 284 K/MM3 (134-434); RDW 18.8 % (11.9-15.9); WHITE BLOOD COUNT 9.5 K/mm3 (4.0-10.0)
[2016-12-04 11:02] LABS: ANION GAP 10 (8-16); CALCIUM 7.9 mg/dL (8.5-10.1); CO2 31 mmol/L (21-32); CREATININE 4.5 mg/dL (0.7-1.3); GLUCOSE,RANDOM 171 mg/dL (74-106)
--- NOTE | 2016-12-04 11:27 | PN ---
Progress Note (short form) - Note Progress Note: Renal Follow up for ESRD on HD Pt seen and examined at the bedside awake and alert, no acute complaints no sob, chest pain s/p dialysis yesterday Vital Signs Temperature 98 F 12/03/16 13:09 Pulse Rate 67 12/03/16 20:30 Respiratory Rate 18 12/03/16 20:30 Blood Pressure 93/52 12/03/16 20:30 O2 Sat by Pulse Oximetry (%) 99 12/03/16 21:00 Intake & Output 12/01/16 12/02/16 12/03/16 12/04/16 23:59 23:59 23:59 23:59 Weight 195 lb GEN: NAD, awake and alert CVS: RRR, No M/R Lungs: CTA abd: soft NT Ext: No edema Sacrum : Decubitis in dressing (nurse reported clean margins, no discharge) CBC, BMP 12/04/16 10:20 12/04/16 10:20 Current Medications Acetaminophen (Tylenol -) 650 mg PO Q4H PRN PRN Reason: FEVER OR PAIN Amlodipine Besylate (Norvasc -) 10 mg PO DAILY [facility] Last Admin: 12/04/16 10:22 Dose: 10 mg Collagenase (Santyl -) 1 applic TP DAILY [facility] Last Admin: 12/04/16 10:23 Dose: 1 applic Finasteride (Proscar -) 5 mg PO DAILY [facility] Last Admin: 12/04/16 10:22 Dose: 5 mg Furosemide (Lasix -) 100 mg PO DAILY [facility] Last Admin: 12/04/16 10:22 Dose: 100 mg Insulin Aspart (Novolog Vial) 0 units SQ TIDAC [facility] PRN Reason: Protocol Last Admin: 12/04/16 07:34 Dose: Not Given Insulin Detemir (Levemir Vial) 12 units SQ HS [facility] Last Admin: 12/03/16 22:34 Dose: 12 units Insulin Detemir (Levemir Vial) 12 units SQ AM [facility] Last Admin: 12/04/16 08:13 Dose: Not Given Metoprolol Succinate (Toprol Xl -) 50 mg PO HS [facility] Last Admin: 12/03/16 22:33 Dose: 50 mg A/P 66 year old gentleman with PMhx of ERSD on HD TTS, Hypertension, DM Type 2, Sacral Osteomylitis who presented from his outpatient HD unit with Hgb of 6.3. #ESRD on HD with Hyperkalemia s/p dialysis yesterday, tolerated it well no acute indication for further dialysis today #Acute on Chronic Anemia stool occult blood is negative s/p 2 PRBC transfused yesterday with sub optimal response added LDH, Haptoglobin to AM labs but doubt hemolysis given normal serum bicarb continue long continue acting WILY with outpatient dialysis #DM Type 2 insulin coverage #Hypertension BP is marginal hold amlodpine Dominick Vanegas DO Problem List - Problems (1) SOB (shortness of breath) Code(s): R06.02 - SHORTNESS OF BREATH (2) Anemia Code(s): D64.9 - ANEMIA, UNSPECIFIED Qualifiers: Anemia type: unspecified type Qualified Code(s): D64.9 - Anemia, unspecified (3) CHF (congestive heart failure) Code(s): I50.9 - HEART FAILURE, UNSPECIFIED (4) Diabetes Code(s): E11.9 - TYPE 2 DIABETES MELLITUS WITHOUT COMPLICATIONS Qualifiers: (5) End stage kidney disease Code(s): N18.6 - END STAGE RENAL DISEASE
[2016-12-04 11:37] VITALS: BP 140/69; PULSE 100; TEMP 98.2
--- NOTE | 2016-12-04 11:44 | DS ---
Physical Examination Vital Signs: Vital Signs Temperature 98.2 F 12/04/16 09:00 Pulse Rate 100 H 12/04/16 09:00 Respiratory Rate 18 12/04/16 09:00 Blood Pressure 140/69 12/04/16 09:00 O2 Sat by Pulse Oximetry (%) 99 12/03/16 21:00 Labs: CBC, BMP 12/04/16 10:20 12/04/16 10:20 Discharge Summary Reason For Visit: ANEMIA Current Active Problems SOB (shortness of breath) (Acute) Anemia (Chronic) Hospital Course: see H & P Pt dc back to NH -- s/p 2 units PRBC Condition: Improved - Instructions Referrals: Joy Turk MD [Primary Care Provider] - Disposition: ALF FACILITY - Home Medications Comprehensive Discharge Medication List: Ambulatory Orders Metoprolol Succinate [Toprol XL -] 50 mg PO HS 01/24/16 Acetaminophen [Tylenol .Regular Strength -] 650 mg PO Q4H PRN #0 tablet Amlodipine Besylate [Norvasc -] 10 mg PO DAILY tablet 10/17/16 Collagenase Clostridium Hist. [Santyl -] 1 applic TP DAILY tube 10/17/16 Finasteride [Proscar -] 5 mg PO DAILY tablet 10/17/16 Furosemide [Lasix] 100 mg PO DAILY #30 tablet 10/21/16 Ascorbate Calcium [Vitamin C] 500 mg PO DAILY 12/03/16 Heparin - 5,000 unit SQ BID 12/03/16 Insulin (Levemir) [Levemir Vial] 12 unit SQ BID 12/03/16 Insulin (Novolog) [Novolog -] 0 units SQ ACHS 12/03/16 Mag Hydrox/Al Hydrox/Simeth [Adrienne-Lanta Liquid] 10 ml PO ACHS 12/03/16 Mirtazapine [Remeron -] 7.5 mg PO DAILY 12/03/16 Vit A/Vitamin D3/E/Aloe V/Znox [Periguard Ointment] 0 gm TP ASDIR 12/03/16 Zinc Sulfate 220 mg PO DAILY 12/03/16
[2016-12-06 00:11] LABS: HEP B SURFACE AB Non Reactive (.)
== END 2016-12-04 13:18 | DRG 811 ==
LOC: JER 12:43 → JERBED 14:33 → J8W 21:26
PROVIDERS: ADMIT Internal Medicine; ATTEND Internal Medicine
PROC: 30233H1 Transfusion of Nonautologous Whole Blood into Peripheral Vein, Percutaneous Approach (ICD-10-PCS; principal; 2016-12-03)
PROC: 5A1D00Z (ICD-10-PCS; 2016-12-03)
DX: D64.9 Anemia, unspecified (principal); N18.6 End stage renal disease; I13.2 Hypertensive heart and chronic kidney disease with heart failure and with stage 5 chronic kidney disease, or end stage renal disease; E11.22 Type 2 diabetes mellitus with diabetic chronic kidney disease; L89.159 Pressure ulcer of sacral region, unspecified stage; Z99.2 Dependence on renal dialysis; Z79.4 Long term (current) use of insulin; J44.9 Chronic obstructive pulmonary disease, unspecified; I25.2 Old myocardial infarction; Z87.891 Personal history of nicotine dependence; G62.9 Polyneuropathy, unspecified; E87.5 Hyperkalemia
CPT/HCPCS: 36415; 36430; 71010-TC; 80048; 80053; 82272; 83010; 83615; 83880; 84484; 85025; 85027; 85610; 86704; 86706; 86708; 86803; 86850; 86900; 86901; 86922; 87340; 93005; 93010; 99282-25; P9038; P9058

== ENCOUNTER 2016-12-17 11:45 | Inpatient (IN) | payer OTHER ==
[2016-12-17 12:05] VITALS: BMI 26.8
--- NOTE | 2016-12-17 12:13 | PDOC ---
History of Present Illness - General Stated Complaint: SOB Time Seen by Provider: 12/17/16 12:00 History Source: Patient - History of Present Illness Initial Comments: 12/17/16 12:15 CC: Shortness of breath Patient is a 66 y.o. male with a PMH of CHF, ESRD (on HD), and IDDM who presents via EMS with a c/o of dyspnea. Patient states he was being washed and changed at his extended care facility this morning and the aides were moving him more than usual prompting him to become short of breath. Patient also notes he drank more water than usual over the last 48 hours also contributing to his shortness of breath. Patient currently on 5 L O2, states he normally uses 2-3 L @ baseline. Patient denies any fevers, chills, chest pain, nausea, vomiting or diarrhea. Past History - Past Medical History Allergies/Adverse Reactions: Allergies Allergy/AdvReac Type Severity Reaction Status Date / Time No Known Allergies Allergy Verified 12/17/16 12:05 Home Medications: Ambulatory Orders Metoprolol Succinate [Toprol XL -] 50 mg PO HS 01/24/16 Acetaminophen [Tylenol .Regular Strength -] 650 mg PO Q4H PRN #0 tablet Collagenase Clostridium Hist. [Santyl -] 1 applic TP DAILY tube 10/17/16 Finasteride [Proscar -] 5 mg PO DAILY tablet 10/17/16 Furosemide [Lasix] 100 mg PO DAILY #30 tablet 10/21/16 Ascorbate Calcium [Vitamin C] 500 mg PO DAILY 12/03/16 Heparin - 5,000 unit SQ BID 12/03/16 Insulin (Levemir) [Levemir Vial] 12 unit SQ BID 12/03/16 Insulin (Novolog) [Novolog -] 0 units SQ ACHS 12/03/16 Mag Hydrox/Al Hydrox/Simeth [Adrienne-Lanta Liquid] 10 ml PO ACHS 12/03/16 Mirtazapine [Remeron -] 7.5 mg PO DAILY 12/03/16 Vit A/Vitamin D3/E/Aloe V/Znox [Periguard Ointment] 0 gm TP ASDIR 12/03/16 Zinc Sulfate 220 mg PO DAILY 12/03/16 Anemia: Yes Asthma: Yes Cardiac Disorders: Yes (md january 2016) COPD: Yes CHF: Yes Diabetes: Yes (IDDM) Dialysis: Yes (HD TUE,THR,SAT) Disorders: Yes HTN: Yes HIV: Yes - Psycho/Social/Smoking Cessation Hx Anxiety: No Suicidal Ideation: No Smoking History: Unknown if ever smoked Have you smoked in the past 12 months: No Number of Cigarettes Smoked Daily: 20 If you are a former smoker, when did you quit?: january 2016 'Breaking Loose' booklet given: 08/12/16 Hx Alcohol Use: No Drug/Substance Use Hx: No Substance Use Type: None Hx Substance Use Treatment: No Review of Systems - Review of Systems Constitutional: No: Chills, Fever HEENTM: No: Blurred Vision, Throat Swelling Respiratory: Yes: Shortness of Breath, SOB at Rest. No: Cough Cardiac (ROS): Yes: Edema. No: Chest Pain, Lightheadedness, Palpitations ABD/GI: No: Constipated, Diarrhea, Nausea, Vomiting : No: Burning, Dysuria Neurological: No: Headache, Numbness All Other Systems: Reviewed and Negative *Physical Exam - Physical Exam General Appearance: Yes: Nourished, Obese Neck: positive: Trachea midline, Supple Respiratory/Chest: positive: Crackles (BiBasilar crackles appreciated on repeat exam) Cardiovascular: positive: Regular Rhythm, Edema (Minor 1+ edema B/L LE), Tachycardia Gastrointestinal/Abdominal: positive: Soft Integumentary: positive: Normal Color, Dry, Other (B/L LE Xerostosis) Neurologic: positive: Fully Oriented, Alert ED Treatment Course - LABORATORY CBC & Chemistry Diagram: 12/17/16 12:54 12/17/16 12:54 Medical Decision Making - Medical Decision Making 12/17/16 12:21 Patient is a 66 y.o. male with a PMH of CHF, IDDM, ESRD (on HD @ [facility]) who presents with acute onset of dyspnea. Differential DDx includes CHF exacerbation (2/2 to fluid load) vs. ACS vs. Pneumonia PLAN: 1. EKG 2. CXR 3. CBC, BMP 4. Troponin x1 Plan to send to dialysis pending medical stabilization 12/17/16 12:33 EKG shows Sinus Tachycardia (HR 109) with ST wave inversions in Leads I, AVL as well as V5, V6, consistent with prior EKG of 12/03/16. 12/17/16 13:23 CBC significant for mild leukocytosis (11.3) - likely reactive CXR shows B/L pleural effusions consistent with prior CXR and improved R sided atelectasis Hyperkalemic (6.2) - will send to HD; Troponin (-) x1 Dyspnea likely 2/2 to fluid overload, exertion Patient admitted to Observation under Dr. Plasencia for dialysis *DC/Admit/Observation/Transfer Diagnosis at time of Disposition: Dialysis patient - Discharge Dispostion Condition at time of disposition: Good Admit: No
--- NOTE | 2016-12-17 12:35 | PDOC ---
Attending Attestation - Resident Resident Name: Patricia Lewis - ED Attending Attestation I have performed the following: I have examined & evaluated the patient, The case was reviewed & discussed with the resident, I agree w/resident's findings & plan, Exceptions are as noted - HPI HPI: 12/17/16 12:30 66-year-old male with history of CHF on O2, end-stage renal disease on Friday/ /Friday dialysis, from [facility] with shortness of breath that developed while patient felt he was overexerting himself while being cleaned/changed. No chest pain, states sxs resolved with rest and supplemental oxygen. He is now asx and without complaints. - Physicial Exam PE: 12/17/16 12:31 O2 100%, RR wnl, speaking full sentences bibasilar crackles, otherwise regular trace pretibial edema b/l, no calf ttp - Medical Decision Making 12/17/16 12:33 Patient seen and evaluated with the resident. I agree with the overall evaluation, assessment, and management with the following summary of visit: 66-year-old male with history of CHF and end-stage renal disease presents with what he feels this is typical exertional shortness of breath in the setting of needing dialysis and his baseline CHF. Never had chest pain, symptoms resolved with rest and supplemental oxygen, now without complaints. EKG with strain pattern but unchanged from prior We'll check troponin for acute injury and chest x-ray Needs dialysis for diuresis, will arrange with Dr. Plasencia as his dialysis center is now closed. 12/17/16 14:25 Hgb 7.7, near baseline. K 6.2, Trop negative. Needs dialysis in hospital, requiring admission - Dr. Spence, covering Dr. Turk, contacted. Discussed with Dr. Vanegas, will arrange dialysis. 12/17/16 14:40 Accepted for obs med/surg by Dr. Spence.
[2016-12-17 13:04] LABS: MCH 26.5 pg (25.7-33.7); MCHC 31.6 g/dl (32.0-35.9); MEAN CELL VOLUME 83.7 fl (80-96); MEAN PLT VOLUME 6.4 fl (7.5-11.1); PLATELET COUNT 314 K/MM3 (134-434); RDW 19.6 % (11.9-15.9); WHITE BLOOD COUNT 11.3 K/mm3 (4.0-10.0)
[2016-12-17 14:10] LABS: ANION GAP 15 (8-16); CALCIUM 8.3 mg/dL (8.5-10.1); CO2 18 mmol/L (21-32); GLUCOSE,RANDOM 210 mg/dL (74-106)
[2016-12-17 14:15] LABS: CPK 47 IU/L (39-308); TROPONIN I 0.02 ng/ml (0.00-0.05)
[2016-12-17 14:20] LABS: CREATININE 7.5 mg/dL (0.7-1.3)
--- NOTE | 2016-12-17 15:33 | CON.NEP ---
Consult Consult Specialty:: Nephrology (Jose/Guilherme) Referred by:: Dr. Ge Reason for Consultation:: ESRD on HD, Hyperkalemia - History of Present Illness Chief Complaint: SOB History of Present Illness: This is a 66 year old gentleman with PMhx of ESRD on HD (TTS), DM Type 2, Hypertension, Sacral Decubitis Ulcers, Chronic Anemia who presented from [facility] with complaint of acute SOB. Pt was being changed and became very SOB. Denies any CP, Cough, N/V/D. No JACKSON. Last dialysis was on Friday. Denies any dietary indiscretion. Pt is not compliant with his full dialysis treatments as a outpatient. 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 Cardio/Vascular: Yes: HTN Pulmonary: Yes: COPD Renal/: Yes: Renal Inusuff Endocrine: Yes: Diabetes Mellitus - Alcohol/Substance Use Hx Alcohol Use: No - Smoking History Smoking history: Unknown if ever smoked Have you smoked in the past 12 months: No Aproximately how many cigarettes per day: 20 If you are a former smoker, when did you quit?: january 2016 - Social History Usual Living Arrangement: With Significant Other ADL: Independent Home Medications - Allergies Allergies/Adverse Reactions: Allergies Allergy/AdvReac Type Severity Reaction Status Date / Time No Known Allergies Allergy Verified 12/17/16 12:05 - Home Medications Home Medications: Ambulatory Orders Metoprolol Succinate [Toprol XL -] 50 mg PO HS 01/24/16 Acetaminophen [Tylenol .Regular Strength -] 650 mg PO Q4H PRN #0 tablet Collagenase Clostridium Hist. [Santyl -] 1 applic TP DAILY tube 10/17/16 Finasteride [Proscar -] 5 mg PO DAILY tablet 10/17/16 Furosemide [Lasix] 100 mg PO DAILY #30 tablet 10/21/16 Ascorbate Calcium [Vitamin C] 500 mg PO DAILY 12/03/16 Heparin - 5,000 unit SQ BID 12/03/16 Insulin (Levemir) [Levemir Vial] 12 unit SQ BID 12/03/16 Insulin (Novolog) [Novolog -] 0 units SQ ACHS 12/03/16 Mag Hydrox/Al Hydrox/Simeth [Adrienne-Lanta Liquid] 10 ml PO ACHS 12/03/16 Mirtazapine [Remeron -] 7.5 mg PO DAILY 12/03/16 Vit A/Vitamin D3/E/Aloe V/Znox [Periguard Ointment] 0 gm TP ASDIR 12/03/16 Zinc Sulfate 220 mg PO DAILY 12/03/16 Family Disease History - Family Disease History Family History: Unremarkable Review of Systems - Review of Systems Constitutional: reports: No Symptoms Eyes: reports: No Symptoms HENT: reports: No Symptoms Neck: reports: No Symptoms Cardiovascular: reports: Shortness of Breath. denies: Chest Pain, Edema Respiratory: reports: SOB, SOB on Exertion. denies: Cough, Exercise Intolerance , Orthopnea Gastrointestinal: reports: No Symptoms Genitourinary: reports: No Symptoms Musculoskeletal: reports: No Symptoms Integumentary: reports: No Symptoms Neurological: reports: No Symptoms Endocrine: reports: No Symptoms Nephrology Consult - Height Height: 6 ft - Weight Weight: 198 lb - BMI Body Mass Index (BMI): 26.8 - Lab Results Anion Gap: Anion Gap Anion Gap 15 (8-16) 12/17/16 12:54 - Imaging Chest X-ray: Report Reviewed - Physical Examination Vital Signs: Vital Signs Temperature 97.9 F 12/17/16 11:45 Pulse Rate 106 H 12/17/16 13:00 Respiratory Rate 24 12/17/16 13:00 Blood Pressure 103/52 12/17/16 13:00 O2 Sat by Pulse Oximetry (%) 100 12/17/16 13:00 Constitutional: Yes: Well Nourished, No Distress Eyes: Yes: Conjunctiva Clear HENT: Yes: Atraumatic Neck: Yes: Supple Cardiovascular: Yes: Regular Rate and Rhythm Respiratory: Yes: Regular, CTA Bilaterally, Diminished (at lung bases). No: Rales, Rhonchi, Wheezes Gastrointestinal: Yes: Normal Bowel Sounds, Soft, Abdomen, Obese Extremities: No: Cold, Cool, Cyanosis Edema: Yes Edema: LLE: 1+, RLE: 1+ Neurological: Yes: Alert, Oriented Problem List - Problems (1) Diabetes 1.5, managed as type 1 Code(s): E13.9 - OTHER SPECIFIED DIABETES MELLITUS WITHOUT COMPLICATIONS (2) SOB (shortness of breath) Code(s): R06.02 - SHORTNESS OF BREATH (3) Anemia Code(s): D64.9 - ANEMIA, UNSPECIFIED Qualifiers: (4) End stage kidney disease Code(s): N18.6 - END STAGE RENAL DISEASE Assessment/Plan 66 year old gentleman with PMhx of ESRD on HD (TTS), DM Type 2, Hypertension, Sacral Decubitis Ulcers, Chronic Anemia who presented from [facility] with complaint of acute SOB. #ESRD on HD will plan HD as inpatient with goal UF of 2.5L as tolerated dose all meds for intermittent HD #Acute on Chronic Anemia Will transfuse 1 unit PRBC with HD continue Long acting WILY as an outpatient Check stool occult blood iron studies to be done in outpatient HD unit #Acute SOB secondary to mild volume overload vs. copd now improved will uf as tolerated with HD #DM Type 2 Continue insulin sliding scale #Hypertension continue metoprolol and Lasix Thank you Will follow Dominick Vanegas DO
[2016-12-17] MEDS ORDERED: ACETAMINOPHEN 325 MG TABLET (FP) PO PRN (16:37)
--- NOTE | 2016-12-17 16:37 | HP ---
Admitting History and Physical - Primary Care Physician PCP: Joy Turk - Admission Chief Complaint: sob History of Present Illness: ER HISTORY History of Present Illness Initial Comments: 12/17/16 12:15 CC: Shortness of breath Patient is a 66 y.o. male with a PMH of CHF, ESRD (on HD), and IDDM who presents via EMS with a c/o of dyspnea. Patient states he was being washed and changed at his extended care facility this morning and the aides were moving him more than usual prompting him to become short of breath. Patient also notes he drank more water than usual over the last 48 hours also contributing to his shortness of breath. Patient currently on 5 L O2, states he normally uses 2-3 L @ baseline. Patient denies any fevers, chills, chest pain, nausea, vomiting or diarrhea. pt examined by me in ER Sent from [facility] for SOB and low O2 sat-- 76% on NRB. Pt admits he drank more water than usual- non compliant with meds. Denies chest pain or palpitations. 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 Cardiovascular: Yes: HTN Pulmonary: Yes: COPD Renal/: Yes: Renal Inusuff Endocrine: Yes: Diabetes Mellitus - Smoking History Smoking history: Unknown if ever smoked Have you smoked in the past 12 months: No Aproximately how many cigarettes per day: 20 If you are a former smoker, when did you quit?: january 2016 - Alcohol/Substance Use Hx Alcohol Use: No - Social History ADL: Independent Home Medications - Allergies Allergies/Adverse Reactions: Allergies Allergy/AdvReac Type Severity Reaction Status Date / Time No Known Allergies Allergy Verified 12/17/16 12:05 - Home Medications Home Medications: Ambulatory Orders Metoprolol Succinate [Toprol XL -] 50 mg PO HS 01/24/16 Acetaminophen [Tylenol .Regular Strength -] 650 mg PO Q4H PRN #0 tablet Collagenase Clostridium Hist. [Santyl -] 1 applic TP DAILY tube 10/17/16 Finasteride [Proscar -] 5 mg PO DAILY tablet 10/17/16 Furosemide [Lasix] 100 mg PO DAILY #30 tablet 10/21/16 Ascorbate Calcium [Vitamin C] 500 mg PO DAILY 12/03/16 Heparin - 5,000 unit SQ BID 12/03/16 Insulin (Levemir) [Levemir Vial] 12 unit SQ BID 12/03/16 Insulin (Novolog) [Novolog -] 0 units SQ ACHS 12/03/16 Mag Hydrox/Al Hydrox/Simeth [Adrienne-Lanta Liquid] 10 ml PO ACHS 12/03/16 Mirtazapine [Remeron -] 7.5 mg PO DAILY 12/03/16 Vit A/Vitamin D3/E/Aloe V/Znox [Periguard Ointment] 0 gm TP ASDIR 12/03/16 Zinc Sulfate 220 mg PO DAILY 12/03/16 Review of Systems - Review of Systems Constitutional: denies: Chills, Fever Cardiovascular: reports: Shortness of Breath. denies: Chest Pain, Palpitations Physical Examination Vital Signs: Vital Signs Temperature 97.9 F 12/17/16 11:45 Pulse Rate 98 H 12/17/16 15:51 Respiratory Rate 18 12/17/16 15:51 Blood Pressure 104/54 12/17/16 15:51 O2 Sat by Pulse Oximetry (%) 100 12/17/16 13:00 Constitutional: Yes: Mild Distress Cardiovascular: Yes: Regular Rate and Rhythm Respiratory: Yes: Diminished, Rales Gastrointestinal: Yes: Normal Bowel Sounds, Soft. No: Distention, Tenderness Edema: No Psychiatric: Yes: Alert Imaging - Results Chest X-ray: Image Reviewed (congestion) EKG: Image Reviewed Problem List - Problems (1) Dialysis patient Code(s): Z99.2 - DEPENDENCE ON RENAL DIALYSIS (2) CHF (congestive heart failure) Code(s): I50.9 - HEART FAILURE, UNSPECIFIED (3) Hyperkalemia Code(s): E87.5 - HYPERKALEMIA Assessment/Plan PLAN Volume overloaded Dialysis today Renal has been consulted will receive one unit of PRBC today as well continue with meds
[2016-12-17] MEDS: INSULIN DETEMIR 100 UNITS/ML MDV SQ SCH (21:16)
[2016-12-17] MEDS ORDERED: METOPROLOL SUCCINATE 50 MG TAB.SR.24H (FP) PO SCH (22:00)
[2016-12-18] MEDS: INSULIN DETEMIR 100 UNITS/ML MDV SQ SCH ×2 (06:30→10:39)
[2016-12-18] MEDS: INSULIN SLIDING SCALE (NOVOLOG) 1 VIAL SQ SCH ×2 (06:30→12:00)
[2016-12-18 07:20] LABS: BASOPHIL 0.5 % (0-2.0); EOSINOPHIL 1.6 % (0-4.5); MCH 26.4 pg (25.7-33.7); MCHC 31.3 g/dl (32.0-35.9); MEAN CELL VOLUME 84.3 fl (80-96); MEAN PLT VOLUME 6.8 fl (7.5-11.1); NEUTROPHILS 53.5 % (42.8-82.8); PLATELET COUNT 346 K/MM3 (134-434); RDW 19.6 % (11.9-15.9); WHITE BLOOD COUNT 10.2 K/mm3 (4.0-10.0)
[2016-12-18 07:45] LABS: ANION GAP 9 (8-16); CALCIUM 8.3 mg/dL (8.5-10.1); CO2 29 mmol/L (21-32); CREATININE 4.3 mg/dL (0.7-1.3); GLUCOSE,RANDOM 68 mg/dL (74-106)
[2016-12-18] MEDS ORDERED: FUROSEMIDE 40 MG TABLET (FP) PO SCH (10:00)
[2016-12-18] MEDS ORDERED: ASCORBIC ACID 500 MG TABLET (FP) PO SCH (10:00)
[2016-12-18] MEDS ORDERED: ZINC SULFATE 220 MG CAPSULE (FP) PO SCH (10:00)
[2016-12-18] MEDS ORDERED: COLLAGENASE CLOSTRIDIUM HIST. 30 GRAMS TUBE TP SCH (10:00)
[2016-12-18] MEDS ORDERED: FINASTERIDE 5 MG TABLET (FP) PO SCH (10:00)
[2016-12-18] MEDS ORDERED: INSULIN DETEMIR 100 UNITS/ML MDV SQ ONE (10:21)
[2016-12-18] MEDS ORDERED: PT OWN MED DRAWER 7, Y5N ONE (10:29)
--- NOTE | 2016-12-18 10:41 | DS ---
Physical Examination Vital Signs: Vital Signs Temperature 99.7 F H 12/18/16 06:00 Pulse Rate 97 H 12/18/16 06:00 Respiratory Rate 18 12/18/16 06:00 Blood Pressure 114/58 12/18/16 06:00 O2 Sat by Pulse Oximetry (%) 95 12/17/16 21:00 Constitutional: Yes: No Distress, Calm Cardiovascular: Yes: Regular Rate and Rhythm Respiratory: Yes: CTA Bilaterally Gastrointestinal: Yes: Normal Bowel Sounds, Soft. No: Tenderness Edema: No Labs: CBC, BMP 12/18/16 06:30 12/18/16 06:30 Discharge Summary Reason For Visit: CHF,ESRD,HYPERKALEMIA Current Active Problems Dialysis patient (Acute) Hospital Course: ADmitted for volume overload and hyperkalemia Pt seen by Renal Had dialysis yesterday and received one unit of PRBC pt better Stable for dc to NH Advised to restrict water intake Condition: Good - Instructions Referrals: Joy Turk MD [Primary Care Provider] - Disposition: [facility] - Home Medications Comprehensive Discharge Medication List: Ambulatory Orders Metoprolol Succinate [Toprol XL -] 50 mg PO HS 01/24/16 Acetaminophen [Tylenol .Regular Strength -] 650 mg PO Q4H PRN #0 tablet Collagenase Clostridium Hist. [Santyl -] 1 applic TP DAILY tube 10/17/16 Finasteride [Proscar -] 5 mg PO DAILY tablet 10/17/16 Furosemide [Lasix] 100 mg PO DAILY #30 tablet 10/21/16 Ascorbate Calcium [Vitamin C] 500 mg PO DAILY 12/03/16 Heparin - 5,000 unit SQ BID 12/03/16 Insulin (Levemir) [Levemir Vial] 12 unit SQ BID 12/03/16 Insulin (Novolog) [Novolog -] 0 units SQ ACHS 12/03/16 Mag Hydrox/Al Hydrox/Simeth [Adrienne-Lanta Liquid] 10 ml PO ACHS 12/03/16 Mirtazapine [Remeron -] 7.5 mg PO DAILY 12/03/16 Vit A/Vitamin D3/E/Aloe V/Znox [Periguard Ointment] 0 gm TP ASDIR 12/03/16 Zinc Sulfate 220 mg PO DAILY 12/03/16
[2016-12-18 10:59] VITALS: BP 119/67; PULSE 88; TEMP 97.7
--- NOTE | 2016-12-18 14:07 | PN ---
Progress Note (short form) - Note Progress Note: Renal Follow up for ESRD on HD Pt seen and examined at the bedside awake and alert SOB is now resolved no chest pain,N N/V/D s/p dialysis yesterday Vital Signs Temperature 97.7 F 12/18/16 10:00 Pulse Rate 88 12/18/16 10:00 Respiratory Rate 20 12/18/16 10:00 Blood Pressure 119/67 12/18/16 10:00 O2 Sat by Pulse Oximetry (%) 95 12/17/16 21:00 Intake & Output 12/15/16 12/16/16 12/17/16 12/18/16 23:59 23:59 23:59 23:59 Intake Total 200 Balance 200 Weight 198 lb Gen: NAD, awake and alert CVS: RRR, No M/R Lungs: CTA, no rales or wheeze Abd: soft NT/ND Ext: Trace edema CBC, BMP 12/18/16 06:30 12/18/16 06:30 Current Medications Acetaminophen (Tylenol -) 650 mg PO Q4H PRN PRN Reason: FEVER OR PAIN Ascorbic Acid (Vitamin C -) 500 mg PO DAILY [facility] Last Admin: 12/18/16 10:38 Dose: 500 mg Collagenase (Santyl -) 1 applic TP DAILY [facility] Finasteride (Proscar -) 5 mg PO DAILY [facility] Last Admin: 12/18/16 10:39 Dose: 5 mg Furosemide (Lasix -) 100 mg PO DAILY [facility] Last Admin: 12/18/16 10:39 Dose: 100 mg Insulin Aspart (Novolog Vial Sliding Scale -) 1 vial SQ TIDAC [facility] PRN Reason: Protocol Last Admin: 12/18/16 12:00 Dose: Not Given Insulin Detemir (Levemir Vial) 12 units SQ BID@0700,2200 [facility] Last Admin: 12/18/16 10:39 Dose: 12 units Metoprolol Succinate (Toprol Xl -) 50 mg PO HS [facility] Last Admin: 12/17/16 21:17 Dose: 50 mg Mirtazapine (Remeron -) 7.5 mg PO HS [facility] Zinc Sulfate (Orazinc -) 220 mg PO DAILY [facility] A/P 66 year old gentleman with PMhx of ESRD on HD (TTS), DM Type 2, Hypertension, Sacral Decubitis Ulcers, Chronic Anemia who presented from [facility] with complaint of acute SOB. #ESRD on HD s/p dialysis yesterday w/o complication Tolerated 2.5 L UF #Acute on Chronic Anemia s/p 1 unit prbc transfusion Hgb now > 8 will continue once weekly WILY at outpatient dialysis #Acute SOB secondary to mild volume overload vs. copd no resolved s/p UF with HD Stable for discharge from Renal POV Thank you Dominick Vanegas DO Problem List - Problems (1) Diabetes 1.5, managed as type 1 Code(s): E13.9 - OTHER SPECIFIED DIABETES MELLITUS WITHOUT COMPLICATIONS (2) SOB (shortness of breath) Code(s): R06.02 - SHORTNESS OF BREATH (3) Anemia Code(s): D64.9 - ANEMIA, UNSPECIFIED Qualifiers: (4) End stage kidney disease Code(s): N18.6 - END STAGE RENAL DISEASE
[2016-12-18] MEDS ORDERED: MIRTAZAPINE 15 MG TABLET (FP) PO SCH (22:00)
--- NOTE | 2016-12-19 12:27 | EKG ---
Test Reason : Blood Pressure : / mmHG Vent. Rate : 109 BPM Atrial Rate : 109 BPM P-R Int : 124 ms QRS Dur : 108 ms QT Int : 352 ms P-R-T Axes : 067 042 133 degrees QTc Int : 474 ms SINUS TACHYCARDIA POSSIBLE LEFT ATRIAL ENLARGEMENT ABNORMAL ECG WHEN COMPARED WITH ECG OF 03-DEC-2016 13:12, NO SIGNIFICANT CHANGE WAS FOUND Confirmed by ZULEMA STEIN MD ([id number]) on 12/19/2016 12:26:42 PM Referred By: Confirmed By:ZULEMA STEIN MD
== END 2016-12-18 15:22 | DRG 291 ==
LOC: JER 11:45 → JERBED 14:29 → J4S 19:25
PROVIDERS: ADMIT Internal Medicine; ATTEND Internal Medicine
PROC: 5A1D00Z (ICD-10-PCS; principal; 2016-12-17)
PROC: 30233H1 Transfusion of Nonautologous Whole Blood into Peripheral Vein, Percutaneous Approach (ICD-10-PCS; 2016-12-17)
DX: I13.2 Hypertensive heart and chronic kidney disease with heart failure and with stage 5 chronic kidney disease, or end stage renal disease (principal); N18.6 End stage renal disease; J98.11 Atelectasis; E11.22 Type 2 diabetes mellitus with diabetic chronic kidney disease; Z99.2 Dependence on renal dialysis; Z79.4 Long term (current) use of insulin; D64.9 Anemia, unspecified; I25.2 Old myocardial infarction; Z87.891 Personal history of nicotine dependence; E66.9 Obesity, unspecified; Z68.26 Body mass index [BMI] 26.0-26.9, adult; E87.5 Hyperkalemia; Z99.81 Dependence on supplemental oxygen; L89.159 Pressure ulcer of sacral region, unspecified stage; E11.40 Type 2 diabetes mellitus with diabetic neuropathy, unspecified; J44.9 Chronic obstructive pulmonary disease, unspecified; Z91.14 Patient's other noncompliance with medication regimen
CPT/HCPCS: 36415; 36430; 71010-TC; 80048; 84484; 85025; 85027; 86850; 86900; 86901; 86922; 93005; 93010; 99285-25; P9038; P9058

== ENCOUNTER 2017-01-16 10:32 | Inpatient (IN) | payer OTHER ==
--- NOTE | 2017-01-16 11:23 | PDOC ---
History of Present Illness <Darlene Walker - Last Filed: 01/16/17 14:55> - General History Source: Patient Exam Limitations: No Limitations - History of Present Illness Initial Comments: 01/16/17 13:15 The patient is a 66 year old male, who arrives from [facility] with a significant past medical history of CHF on O2, ESRD on dialysis (Tues, Thurs, and Sat), COPD, HTN, OH and IDDM who presents to the emergency department with chest pain. The patient reports having acute sudden onset of pain this morning while sitting up in bed. The patient describes his pain as a sharp pain that is worse with deep inspiration. He also notes having of SOB since yesterday. He denies any recent fevers, chills, headache or dizziness. He denies any recent nausea, vomit, diarrhea or constipation. He denies any recent dysuria, frequency, urgency or hematuria. Pt did not have HD today. Allergies: NKA Past surgical history: None reported. Social History: Nonsmoker. Denies EtOH use and recreational drug use. Primary Care Physician: <Michael Hicks - Last Filed: 01/16/17 16:23> - General Chief Complaint: Chest Pain Stated Complaint: CHEST PAIN Time Seen by Provider: 01/16/17 11:22 Past History - Past Medical History Anemia: Yes Asthma: Yes Cardiac Disorders: Yes (mi january 2016) COPD: Yes CHF: Yes Diabetes: Yes (IDDM) Dialysis: Yes (HD TUE,THR,SAT) Disorders: Yes HTN: Yes - Suicide/Smoking/Psychosocial Hx Smoking History: Former smoker Have you smoked in the past 12 months: No Number of Cigarettes Smoked Daily: 20 If you are a former smoker, when did you quit?: january 2016 Information on smoking cessation initiated: No 'Breaking Loose' booklet given: 08/12/16 Hx Alcohol Use: No Drug/Substance Use Hx: No Substance Use Type: None Hx Substance Use Treatment: No <Darlene Walker - Last Filed: 01/16/17 14:55> <Michael Hicks - Last Filed: 01/16/17 16:23> - Past Medical History Allergies/Adverse Reactions: Allergies Allergy/AdvReac Type Severity Reaction Status Date / Time No Known Allergies Allergy Verified 12/17/16 12:05 Home Medications: Ambulatory Orders Metoprolol Succinate [Toprol XL -] 50 mg PO HS 01/24/16 Acetaminophen [Tylenol .Regular Strength -] 650 mg PO Q4H PRN #0 tablet Collagenase Clostridium Hist. [Santyl -] 1 applic TP DAILY tube 10/17/16 Finasteride [Proscar -] 5 mg PO DAILY tablet 10/17/16 Furosemide [Lasix] 100 mg PO DAILY #30 tablet 10/21/16 Ascorbate Calcium [Vitamin C] 500 mg PO DAILY 12/03/16 Heparin - 5,000 unit SQ BID 12/03/16 Insulin (Levemir) [Levemir Vial] 12 unit SQ BID 12/03/16 Insulin (Novolog) [Novolog -] 0 units SQ ACHS 12/03/16 Mag Hydrox/Al Hydrox/Simeth [Adrienne-Lanta Liquid] 10 ml PO ACHS 12/03/16 Mirtazapine [Remeron -] 7.5 mg PO DAILY 12/03/16 Vit A/Vitamin D3/E/Aloe V/Znox [Periguard Ointment] 0 gm TP ASDIR 12/03/16 Zinc Sulfate 220 mg PO DAILY 12/03/16 Review of Systems - Review of Systems Able to Perform ROS?: Yes Comments:: 01/16/17 13:15 GENERAL/CONSTITUTIONAL: No fever or chills. No weakness. HEAD, EYES, EARS, NOSE AND THROAT: No change in vision. No ear pain or discharge. No sore throat. GASTROINTESTINAL: No nausea, vomiting, diarrhea or constipation. GENITOURINARY: No dysuria, frequency, or change in urination. CARDIOVASCULAR: +chest pain and shortness of breath. RESPIRATORY: No cough, wheezing, or hemoptysis. MUSCULOSKELETAL: No joint or muscle swelling or pain. No neck or back pain. SKIN: No rash NEUROLOGIC: No headache, vertigo, loss of consciousness, or change in strength/ sensation. ENDOCRINE: No increased thirst. No abnormal weight change. HEMATOLOGIC/LYMPHATIC: No anemia, easy bleeding, or history of blood clots. ALLERGIC/IMMUNOLOGIC: No hives or skin allergy. <Michael Hicks - Last Filed: 01/16/17 16:23> *Physical Exam - Vital Signs Last Vital Signs Temp Pulse Resp BP Pulse Ox 98.1 F 88 16 117/74 100 01/16/17 11:00 01/16/17 11:00 01/16/17 11:00 01/16/17 11:00 01/16/17 11:00 <Darlene Walker - Last Filed: 01/16/17 14:55> - Vital Signs Last Vital Signs Temp Pulse Resp BP Pulse Ox 98.1 F 88 16 117/74 100 01/16/17 11:00 01/16/17 11:00 01/16/17 11:00 01/16/17 11:00 01/16/17 12:32 - Physical Exam Comments: 01/16/17 13:15 GENERAL: Awake, alert, and fully oriented, in no acute distress HEAD: No signs of trauma EYES: PERRLA, EOMI, sclera anicteric, conjunctiva clear ENT: Auricles normal inspection, hearing grossly normal, nares patent, oropharynx clear without exudates. Moist mucosa NECK: Normal ROM, supple, no lymphadenopathy, JVD, or masses LUNGS: Breath sounds equal, clear to auscultation bilaterally. No wheezes, and no crackles HEART: Regular rate and rhythm, normal S1 and S2, no murmurs, rubs or gallops ABDOMEN: Soft, nontender, normoactive bowel sounds. No guarding, no rebound. No masses EXTREMITIES: Normal range of motion, no edema. No clubbing or cyanosis. No cords , erythema, or tenderness BACK: No midline spinal tenderness in cervical/thoracic/lumbar region NEUROLOGICAL: Normal speech, cranial nerves intact, negative pronator drift, normal sensation to light touch in all 4 extremities, normal cerebellar exam, normal reflexes and tone SKIN: Stage 4 sacral decubitus ulcer present with no surrounding erythema or discharge <Michael Hicks - Last Filed: 01/16/17 16:23> Heart Score/ECG Review - History History: Moderately suspicious - Electrocardiogram EKG: Significant ST-depression - Age Age: >/= 65 - Risk Factors Risk Factors Heart Score: Yes Hx Hypertension, Yes Positive family hx of cardiac disease Based on the list above the patient has:: 1-2 risk factors - Troponin Troponin: </= normal limit - Score Heart Score - Total: 6 #1 01/16/17 13:03 Twelve-lead EKG was performed and reviewed by me. Normal sinus rhythm, rate 88. Normal axis and intervals. ST depressions in V4 through V6. T-wave inversions in 1, aVL, V4 through V6. When compared to EKG from 12/03/2016 no significant change. <Darlene Walker - Last Filed: 01/16/17 14:55> ED Treatment Course - LABORATORY CBC & Chemistry Diagram: 01/16/17 11:18 01/16/17 12:00 <Darlene Walker - Last Filed: 01/16/17 14:55> - LABORATORY CBC & Chemistry Diagram: 01/16/17 11:18 01/16/17 12:00 - ADDITIONAL ORDERS Additional order review: Laboratory Results 01/16/17 01/16/17 12:00 11:18 Sodium 128 L Potassium 6.7 H* D Chloride 94 L Carbon Dioxide 22 D Anion Gap 12 BUN 68 H D Creatinine 6.1 H D Creat Clearance w eGFR 9.28 Random Glucose 194 H D Calcium 8.3 L Magnesium 2.3 D Total Bilirubin 0.4 D AST 11 L D ALT 10 L Alkaline Phosphatase 91 D Troponin I 0.02 B-Natriuretic Peptide Cancelled Total Protein 6.8 Albumin 1.7 L Lipase 75 01/16/17 11:18 RBC 2.97 L MCV 84.7 MCHC 30.9 L RDW 18.3 H MPV 7.4 L Neutrophils % 74.7 D Lymphocytes % 18.1 D Monocytes % 6.5 Eosinophils % 0.4 Basophils % 0.3 <Michael Hicks - Last Filed: 01/16/17 16:23> Medical Decision Making - Medical Decision Making 01/16/17 13:00 66-year-old male with multiple medical problems presents with shortness of breath since yesterday and chest pain today. The patient did not go to dialysis today. Vitals are unremarkable. Labs with no acute findings. Differential includes ACS versus CHF versus pneumonia. PE also on the differential however the patient is not tachycardic or hypoxic. Has no LE swelling or pain -labs -monitor -CXR -renal c/s -likely admit 01/16/17 13:45 Labs remarkable for hyperkalemia to 6.7. EKG with no peak T waves or wide QRS. Patient was given 5 units of insulin, bicarbonate and dextrose. Spoke with Dr. Dominick Vanegas. Pt can go to HD now. Awaiting page back from Dr. Spence for admission. 01/16/17 14:55 Case discussed in detail with admitting physician Dr. Spence including history , physical exam and ancillary studies. Admitting physician has assumed care for the patient, will follow all pending diagnostics and will complete the evaluation and treatment. <Darlene Walker - Last Filed: 01/16/17 14:55> - Medical Decision Making 01/16/17 16:22 Case discussed with Gretta, Health Care Proxy [phone]. <Michael Hicks - Last Filed: 01/16/17 16:23> *DC/Admit/Observation/Transfer - Discharge Dispostion Admit: Yes - Attestations Physician Attestion: 01/16/17 14:56 I, Dr. Darlene Walker MD, attest that this document has been prepared under my direction and personally reviewed by me in its entirety. I further attest, that it accurately reflects all work, treatment, procedures and medical decision -making performed by me. <Darlene Walker - Last Filed: 01/16/17 14:55> - Attestations Scribe Attestion: 01/16/17 13:16 Documentation prepared by Michael Hicks, acting as medical and scientific illustrator for Darlene Walker MD. <Michael Hicks - Last Filed: 01/16/17 16:23> Diagnosis at time of Disposition: Hyperkalemia, Chest pain - Discharge Dispostion Condition at time of disposition: Guarded - Referrals
[2017-01-16 12:13] LABS: BASOPHIL 0.3 % (0-2.0); EOSINOPHIL 0.4 % (0-4.5); MCH 26.2 pg (25.7-33.7); MCHC 30.9 g/dl (32.0-35.9); MEAN CELL VOLUME 84.7 fl (80-96); MEAN PLT VOLUME 7.4 fl (7.5-11.1); NEUTROPHILS 74.7 % (42.8-82.8); PLATELET COUNT 216 K/MM3 (134-434); RDW 18.3 % (11.9-15.9)
[2017-01-16 12:27] LABS: ALBUMIN 1.7 g/dl (3.4-5.0); ANION GAP 12 (8-16); CALCIUM 8.3 mg/dL (8.5-10.1); CO2 22 mmol/L (21-32); GLUCOSE,RANDOM 194 mg/dL (74-106)
[2017-01-16 12:30] LABS: BILIRUBIN,TOTAL 0.4 mg/dL (0.2-1.0); CREATININE 6.1 mg/dL (0.7-1.3); SGPT/ALT 10 U/L (12-78)
[2017-01-16 12:40] LABS: ALK PHOS 91 U/L (45-117); TOT PROT 6.8 g/dl (6.4-8.2); TROPONIN I 0.02 ng/ml (0.00-0.05)
[2017-01-16 12:45] LABS: MAGNESIUM 2.3 mg/dL (1.8-2.4); SGOT/AST 11 U/L (15-37)
[2017-01-16] MEDS ORDERED: SODIUM BICARBONATE 8.4% 50 MEQ/50 ML DISP.SYRIN IVPUSH ONE (12:51)
[2017-01-16] MEDS ORDERED: INSULIN REGULAR HUMAN 100 UNITS/ML *VIAL IVPUSH ONE (12:54)
[2017-01-16] MEDS ORDERED: DEXTROSE 50%-WATER - 25 GM/50 ML VIAL IVPUSH ONE (12:55)
[2017-01-16] MEDS ORDERED: INSULIN REGULAR HUMAN 100 UNITS/ML *VIAL ONE (13:15)
[2017-01-16] MEDS ORDERED: DEXTROSE 50%-WATER 25 GM/50 ML DISP.SYRIN ONE (13:15)
[2017-01-16] MEDS ORDERED: SODIUM BICARBONATE 8.4% - 50 ML ONE (13:15)
[2017-01-16] MEDS ORDERED: ACETAMINOPHEN 325 MG TABLET (FP) PO PRN (13:36)
--- NOTE | 2017-01-16 17:28 | CON.CARD ---
Cardiology Consult (text) - Consultation Consultation Note: CC: CP 66 y.o. male with a PMH of HTN, HL, systolic cardiomyopathy CHF, ESRD (on HD), chronic anemia, sacral debubitus ulcers, copd, and IDDM who p/w CP and noted to be hyperkalemic. Received medical tx for hyperkalemia as well as urgent HD. 02 dependent, per report. Patient states he has had constant central CP for the past few days. CP still persists. + fatigue. Denies sob. orthopnea. Patient denies any fevers, chills, sweats. Beyond this patient declines to provide further history due to fatigue. PMHx/PShx: per hpi, additionally Peripheral Neuropathy social hx: former smoker fam hx: denies cardiac history ros: per hpi Ambulatory Orders Metoprolol Succinate [Toprol XL -] 50 mg PO HS 01/24/16 Acetaminophen [Tylenol .Regular Strength -] 650 mg PO Q4H PRN #0 tablet Collagenase Clostridium Hist. [Santyl -] 1 applic TP DAILY tube 10/17/16 Finasteride [Proscar -] 5 mg PO DAILY tablet 10/17/16 Furosemide [Lasix] 100 mg PO DAILY #30 tablet 10/21/16 Ascorbate Calcium [Vitamin C] 500 mg PO DAILY 12/03/16 Heparin - 5,000 unit SQ BID 12/03/16 Insulin (Levemir) [Levemir Vial] 12 unit SQ BID 12/03/16 Insulin (Novolog) [Novolog -] 0 units SQ ACHS 12/03/16 Mag Hydrox/Al Hydrox/Simeth [Adrienne-Lanta Liquid] 10 ml PO ACHS 12/03/16 Mirtazapine [Remeron -] 7.5 mg PO DAILY 12/03/16 Vit A/Vitamin D3/E/Aloe V/Znox [Periguard Ointment] 0 gm TP ASDIR 12/03/16 Zinc Sulfate 220 mg PO DAILY 12/03/16 Current Medications Acetaminophen (Tylenol -) 650 mg PO Q4H PRN PRN Reason: FEVER OR PAIN Collagenase (Santyl -) 1 applic TP DAILY [facility] Finasteride (Proscar -) 5 mg PO DAILY [facility] Furosemide (Lasix -) 100 mg PO DAILY [facility] Insulin Aspart (Novolog Vial) 0 units SQ ACHS [facility] PRN Reason: Protocol Insulin Detemir (Levemir Vial) units SQ BID [facility] Metoprolol Succinate (Toprol Xl -) 50 mg PO DAILY [facility] Mirtazapine (Remeron -) 7.5 mg PO HS [facility] Zinc Sulfate (Orazinc -) 220 mg PO DAILY [facility] Vital Signs - 24 hr 01/16/17 01/16/17 01/16/17 11:00 12:32 13:00 Temperature 98.1 F Pulse Rate 88 Pulse Rate [ 74 Right] Respiratory 16 16 Rate Blood Pressure 117/74 Blood Pressure 111/79 [Right] O2 Sat by Pulse 100 100 98 Oximetry (%) 01/16/17 01/16/17 01/16/17 14:36 14:45 15:10 Temperature 98.6 F 98.8 F Pulse Rate 58 L 59 L Pulse Rate [ 75 Right] Respiratory 16 18 18 Rate Blood Pressure 148/83 131/72 Blood Pressure 119/79 [Right] O2 Sat by Pulse 98 Oximetry (%) 01/16/17 15:15 Temperature Pulse Rate 102 H Pulse Rate [ Right] Respiratory 18 Rate Blood Pressure 122/73 Blood Pressure [Right] O2 Sat by Pulse Oximetry (%) Intake & Output 01/15/17 01/16/17 01/17/17 01/18/17 07:59 07:59 07:59 07:59 Intake Total 250 Balance 250 Weight 200 lb Patient declines physical exam, but was able to assess the following. Currently lying flat, under blanket, getting HD Nad, calm/irritable. + pallor appears frail Bibasilar dullness. poor effort Declines cardiac or abdominal exam. trace LE edema (through blanket) Declines to remove blanket to examine pulses Declines carotid exam. CBC, BMP 01/16/17 11:18 01/16/17 12:00 Laboratory Tests 09/24/16 12/04/16 12/18/16 07:20 10:20 06:30 Hgb 8.5 L D Haptoglobin 324 H ABG pH 7.32 L ABG pCO2 at Pt Temp 32.4 L ABG pO2 at Pt Temp 63.1 L Magnesium Total Bilirubin AST ALT Alkaline Phosphatase Troponin I Albumin 01/16/17 12:00 Hgb Haptoglobin ABG pH ABG pCO2 at Pt Temp ABG pO2 at Pt Temp Magnesium 2.3 D Total Bilirubin 0.4 D AST 11 L D ALT 10 L Alkaline Phosphatase 91 D Troponin I 0.02 Albumin 1.7 L EKG: NSR, anterolateral ST dep/TWI, similar to priors cxr: Pulmonary congestion. Right pleural effusion with atelectasis vs. infiltrate. Atelectasis/pleural reaction at left base. Prominent mediastinum. echo 09/2016: Sev LV dilation. Sev reduced LV function. (global). RV not well visualized. Mobile density c/w torn chordae (veg can't be excluded). Ao not well visualized. RVSP not assessed. (During hospital admit for sepsis) - NL LV function 01/2016. 66 y.o. male with a PMH of HTN, HL, systolic cardiomyopathy CHF, ESRD (on HD), chronic anemia, sacral debubitus ulcers, copd, and IDDM who p/w CP and noted to be hyperkalemic. CP: - CE's neg x 1. EKG similar to priors. Con't DEONNA. - Likely has underlying CAD. Recently noted to have depressed EF during admit for sepsis. Would repeat echo once diuresed to see if systolic function has normalized. Otherwise could consider ischemic evaluation if patient is willing , but patient has risk for PCI due to sacral ulcers/infectious risks as well as signficant anemia and possibility for non-adherence. Also likely high surgical risk (for CABG) due to frailty. Unless patient with ACS, would favor medical management. - ASA, statin --> monitor hgb. currently at baseline 7-8. - mgm't of electrolyte abnormalities per renal - mgm't of volume per renal. - tele Systolic cardiomyopathy - acute exacerbation - volume overloaded. Unclear if this is related to non-adherence to HD or soley from chf exacerbation. - volume mgm't per renal. Con't lasix per renal. - would defer BB until tomorrow (intermittently in the 50's here) - would favor hydralazine/isordil combo over acei in light of recurrent hyperkalemia. Will start at low dose. - Repeat echo once volume status improves to reassess systolic function. Ischemic eval as above. HTN - Adding hydral/imdur as above. monitor for hypotension. hl - statin. - mgm't of copd, decub ulceres, DM per pmd.
[2017-01-16] MEDS: INSULIN (NOVOLOG) ASPART 100 UNITS/ML 10ML VIAL SQ SCH ×2 (20:11→23:00)
[2017-01-16] MEDS: METOPROLOL SUCCINATE 50 MG TAB.SR.24H (FP) PO SCH ×2 (20:45→22:59)
[2017-01-16] MEDS ORDERED: METOPROLOL SUCCINATE 50 MG TAB.SR.24H (FP) PO SCH (22:00)
[2017-01-16] MEDS ORDERED: INSULIN (NOVOLOG) ASPART 100 UNITS/ML 10ML VIAL ONE (22:21)
[2017-01-16] MEDS: INSULIN DETEMIR 100 UNITS/ML MDV SQ SCH (23:00)
[2017-01-17 01:45] VITALS: BMI 27.1
[2017-01-17] MEDS: INSULIN (NOVOLOG) ASPART 100 UNITS/ML 10ML VIAL SQ SCH ×4 (06:39→21:33)
[2017-01-17 07:40] LABS: TROPONIN I 0.04 ng/ml (0.00-0.05)
[2017-01-17 07:43] LABS: ANION GAP 12 (8-16); CO2 28 mmol/L (21-32); CREATININE 3.5 mg/dL (0.7-1.3); GLUCOSE,RANDOM 74 mg/dL (74-106)
--- NOTE | 2017-01-17 10:03 | HP ---
Admitting History and Physical - Primary Care Physician PCP: Joy Turk - Admission Chief Complaint: chest pain History of Present Illness: - History of Present Illness Initial Comments: 01/16/17 13:15 The patient is a 66 year old male, who arrives from [facility] with a significant past medical history of CHF on O2, ESRD on dialysis (, , and Fri), COPD, HTN, CO and IDDM who presents to the emergency department with chest pain. The patient reports having acute sudden onset of pain this morning while sitting up in bed. The patient describes his pain as a sharp pain that is worse with deep inspiration. He also notes having of SOB since yesterday. He denies any recent fevers, chills, headache or dizziness. He denies any recent nausea, vomit, diarrhea or constipation. He denies any recent dysuria, frequency, urgency or hematuria. Pt did not have HD today. Allergies: NKA Past surgical history: None reported. Social History: Nonsmoker. Denies EtOH use and recreational drug use. Primary Care Physician: Pt seen by me in telemetry Known by me in [place]- known to non compliant with meds, fluid, diet and dialysis Has been c/o chest pain since yesterday and did not got to dialysis yesterday . 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: Peripheral Neuropathy Cardiovascular: Yes: HTN Pulmonary: Yes: COPD Renal/: Yes: Renal Inusuff Endocrine: Yes: Diabetes Mellitus - Advance Directives Advance Directives: Yes: Health Care Proxy - Smoking History Smoking history: Former smoker Have you smoked in the past 12 months: No Aproximately how many cigarettes per day: 20 If you are a former smoker, when did you quit?: January 2016 - Alcohol/Substance Use Hx Alcohol Use: No (quit 40 years ago) - Social History ADL: Independent Home Medications - Allergies Allergies/Adverse Reactions: Allergies Allergy/AdvReac Type Severity Reaction Status Date / Time No Known Allergies Allergy Verified 12/17/16 12:05 - Home Medications Home Medications: Ambulatory Orders Metoprolol Succinate [Toprol XL -] 50 mg PO DAILY 01/24/16 Acetaminophen [Tylenol .Regular Strength -] 650 mg PO Q4H PRN #0 tablet Collagenase Clostridium Hist. [Santyl -] 1 applic TP DAILY tube 10/17/16 Finasteride [Proscar -] 5 mg PO DAILY tablet 10/17/16 Furosemide [Lasix] 100 mg PO DAILY #30 tablet 10/21/16 Ascorbate Calcium [Vitamin C] 500 mg PO DAILY 12/03/16 Heparin - 5,000 unit SQ BID 12/03/16 Insulin (Levemir) [Levemir Vial] 12 unit SQ BID 12/03/16 Insulin (Novolog) [Novolog -] 0 units SQ ACHS 12/03/16 Mag Hydrox/Al Hydrox/Simeth [Adrienne-Lanta Liquid] 10 ml PO ACHS 12/03/16 Mirtazapine [Remeron -] 7.5 mg PO DAILY 12/03/16 Vit A/Vitamin D3/E/Aloe V/Znox [Periguard Ointment] 0 gm TP ASDIR 12/03/16 Zinc Sulfate 220 mg PO DAILY 12/03/16 Review of Systems - Review of Systems Constitutional: denies: Chills, Fever Cardiovascular: reports: Chest Pain, Shortness of Breath. denies: Palpitations Physical Examination Vital Signs: Vital Signs Temperature 99.6 F 01/17/17 06:26 Pulse Rate 95 H 01/17/17 06:26 Respiratory Rate 20 01/17/17 06:26 Blood Pressure 101/34 01/17/17 06:26 O2 Sat by Pulse Oximetry (%) 94 L 01/16/17 22:50 Constitutional: Yes: No Distress, Calm Cardiovascular: Yes: Regular Rate and Rhythm Respiratory: Yes: Diminished, Rales Gastrointestinal: Yes: Normal Bowel Sounds, Soft, Abdomen, Obese. No: Distention, Tenderness Edema: Yes Edema: LLE: Trace, RLE: Trace Psychiatric: Yes: Alert, Oriented Labs: CBC, BMP 01/17/17 05:30 Imaging - Results Chest X-ray: Image Reviewed EKG: Image Reviewed Problem List - Problems (1) Chest pain Code(s): R07.9 - CHEST PAIN, UNSPECIFIED (2) Hyperkalemia Code(s): E87.5 - HYPERKALEMIA (3) CHF (congestive heart failure) Code(s): I50.9 - HEART FAILURE, UNSPECIFIED (4) COPD (chronic obstructive pulmonary disease) Code(s): J44.9 - CHRONIC OBSTRUCTIVE PULMONARY DISEASE, UNSPECIFIED (5) End stage kidney disease Code(s): N18.6 - END STAGE RENAL DISEASE Assessment/Plan PLAN Hyperkalemia resolved Had dialysis yesterday Check CXR today Check CBC today transfuse if Hb<7 Cardiac enzymes x 3 negative continue with meds check Echo pt is non compliant-- will not be a candidate for ischemia work up-- 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
[2017-01-17] MEDS: FUROSEMIDE 40 MG TABLET (FP) PO SCH ×2 (11:26→11:38)
[2017-01-17] MEDS: COLLAGENASE CLOSTRIDIUM HIST. 30 GRAMS TUBE TP SCH ×2 (11:27→17:00)
[2017-01-17] MEDS: INSULIN DETEMIR 100 UNITS/ML MDV SQ SCH ×2 (11:27→21:32)
[2017-01-17] MEDS: FINASTERIDE 5 MG TABLET (FP) PO SCH (11:27)
[2017-01-17] MEDS: METOPROLOL SUCCINATE 50 MG TAB.SR.24H (FP) PO SCH (11:27)
[2017-01-17] MEDS: ASPIRIN 81 MG CHEWABLE TABLETS PO SCH (11:31)
[2017-01-17] MEDS ORDERED: INSULIN DETEMIR 100 UNITS/ML MDV SQ ONE (11:40)
--- NOTE | 2017-01-17 13:05 | CON.NEP ---
Consult Consult Specialty:: Nephrology Referred by:: Dr. Spence Reason for Consultation:: ESRD on HD - History of Present Illness Chief Complaint: SOB and chest pain History of Present Illness: This is a 66 year old gentleman with PMhx of ESRD on HD (TTS at [facility]), Hypertension, CHF, HLD, IDDM, Sacral decubitis ulcers, Chronic anemia who presented from [place] with complaints of SOB and chest pain and found to have hyperkalemia with K of 6.7. Pt s/p urgent HD yesterday evening. Pt is very non- compliant with his dialysis treatments as an outpatient and often cuts his treatment times short. Pt reports that he feels better but still has some chest discomfort. S/p 1 unit prbc transfusion yesterday with HD. 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: Peripheral Neuropathy Cardio/Vascular: Yes: HTN Pulmonary: Yes: COPD Renal/: Yes: Renal Inusuff Endocrine: Yes: Diabetes Mellitus - Alcohol/Substance Use Hx Alcohol Use: No (quit 40 years ago) - Smoking History Smoking history: Former smoker Have you smoked in the past 12 months: No Aproximately how many cigarettes per day: 20 If you are a former smoker, when did you quit?: January 2016 - Social History Usual Living Arrangement: With Significant Other ADL: Independent Home Medications - Allergies Allergies/Adverse Reactions: Allergies Allergy/AdvReac Type Severity Reaction Status Date / Time No Known Allergies Allergy Verified 12/17/16 12:05 - Home Medications Home Medications: Ambulatory Orders Metoprolol Succinate [Toprol XL -] 50 mg PO DAILY 01/24/16 Acetaminophen [Tylenol .Regular Strength -] 650 mg PO Q4H PRN #0 tablet Collagenase Clostridium Hist. [Santyl -] 1 applic TP DAILY tube 10/17/16 Finasteride [Proscar -] 5 mg PO DAILY tablet 10/17/16 Furosemide [Lasix] 100 mg PO DAILY #30 tablet 10/21/16 Ascorbate Calcium [Vitamin C] 500 mg PO DAILY 12/03/16 Heparin - 5,000 unit SQ BID 12/03/16 Insulin (Levemir) [Levemir Vial] 12 unit SQ BID 12/03/16 Insulin (Novolog) [Novolog -] 0 units SQ ACHS 12/03/16 Mag Hydrox/Al Hydrox/Simeth [Adrienne-Lanta Liquid] 10 ml PO ACHS 12/03/16 Mirtazapine [Remeron -] 7.5 mg PO DAILY 12/03/16 Vit A/Vitamin D3/E/Aloe V/Znox [Periguard Ointment] 0 gm TP ASDIR 12/03/16 Zinc Sulfate 220 mg PO DAILY 12/03/16 Family Disease History - Family Disease History Family History: Unremarkable Review of Systems - Review of Systems Constitutional: reports: No Symptoms Eyes: reports: No Symptoms HENT: reports: No Symptoms Neck: reports: No Symptoms Cardiovascular: reports: Chest Pain, Shortness of Breath Respiratory: reports: SOB. denies: Cough, Orthopnea Gastrointestinal: reports: No Symptoms Genitourinary: reports: No Symptoms Integumentary: reports: No Symptoms Neurological: reports: No Symptoms Nephrology Consult - Height Height: 6 ft - Weight Weight: 200 lb - BMI Body Mass Index (BMI): 27.1 - Lab Results CBC,BMP: CBC, BMP 01/17/17 05:30 Anion Gap: Anion Gap Anion Gap 12 (8-16) 01/17/17 05:30 - Imaging Chest X-ray: Report Reviewed - Physical Examination Vital Signs: Vital Signs Temperature 98.3 F 01/17/17 10:00 Pulse Rate 96 H 01/17/17 10:00 Respiratory Rate 20 01/17/17 10:00 Blood Pressure 114/74 01/17/17 10:00 O2 Sat by Pulse Oximetry (%) 94 L 01/16/17 22:50 Constitutional: Yes: No Distress, Calm Eyes: Yes: Conjunctiva Clear HENT: Yes: Atraumatic, Normocephalic Neck: Yes: Supple Cardiovascular: Yes: Regular Rate and Rhythm, S1, S2. No: JVD, Murmur, Rub Respiratory: Yes: Regular, Diminished. No: Rhonchi, Wheezes Gastrointestinal: Yes: Normal Bowel Sounds, Soft. No: Tenderness Renal/: No: Bladder Distention Access for Hemodialysis: Permacath Edema: No Wound/Incision: Yes: Other (sacral decubitis) Neurological: Yes: Alert, Oriented Problem List - Problems (1) Chest pain Code(s): R07.9 - CHEST PAIN, UNSPECIFIED (2) Hyperkalemia Code(s): E87.5 - HYPERKALEMIA (3) SOB (shortness of breath) Code(s): R06.02 - SHORTNESS OF BREATH (4) Anemia Code(s): D64.9 - ANEMIA, UNSPECIFIED Qualifiers: (5) End stage kidney disease Code(s): N18.6 - END STAGE RENAL DISEASE Assessment/Plan 66 year old gentleman with PMhx of ESRD on HD (TTS at [facility]), Hypertension, CHF, HLD, IDDM, Sacral decubitis ulcers, Chronic anemia who presented [place] with complaints of SOB and chest pain and found to have hyperkalemia with K of 6.7. #ESRD on HD with Hyperkalemia s/p urgent hd yesterday with 2k bath K is improved today will maintain on TTS schedule as a inpatient dose all meds for intermittent HD renal diet fluid restriction of 1.2 L daily #Chest pain/SOB s/p UF with HD yesterday cardiac enzyme negative echo done today cardiology follow up will continue UF with HD as needed #Acute on chronic anemia s/p 1 prbc transfusion yesterday pt is on long acting WILY from outpatient dialysis, will not give epogen here Trend CBC transfuse for Hgb less then 8 Thank you Will follow Dominick Vanegas DO
--- NOTE | 2017-01-17 13:59 | PN ---
Progress Note (short form) - Note Progress Note: CC: CP S: Hyperkalemia improved today. cp resolved. no sob, palps, dizziness. Is engaged in discussion regarding his care Current Medications Acetaminophen (Tylenol -) 650 mg PO Q4H PRN PRN Reason: FEVER OR PAIN Aspirin (Asa -) 81 mg PO DAILY [facility] Last Admin: 01/17/17 11:31 Dose: 81 mg Collagenase (Santyl -) 1 applic TP DAILY [facility] Last Admin: 01/17/17 11:27 Dose: 1 applic Finasteride (Proscar -) 5 mg PO DAILY [facility] Last Admin: 01/17/17 11:27 Dose: 5 mg Furosemide (Lasix -) 80 mg PO DAILY [facility] Last Admin: 01/17/17 11:38 Dose: Not Given Insulin Aspart (Novolog Vial) 0 units SQ ACHS [facility] PRN Reason: Protocol Last Admin: 01/17/17 11:28 Dose: 2 units Insulin Detemir (Levemir Vial) 12 units SQ BID [facility] Last Admin: 01/17/17 11:27 Dose: 12 unit Metoprolol Succinate (Toprol Xl -) 50 mg PO DAILY [facility] Last Admin: 01/17/17 11:27 Dose: 50 mg Mirtazapine (Remeron -) 7.5 mg PO HS [facility] Zinc Sulfate (Orazinc -) 220 mg PO DAILY [facility] Vital Signs - 24 hr 01/16/17 01/16/17 01/16/17 14:36 15:10 15:15 Temperature 98.6 F 98.8 F Pulse Rate 59 L 102 H Pulse Rate [ 75 Right] Respiratory 16 18 18 Rate Blood Pressure 131/72 122/73 Blood Pressure 119/79 [Right] O2 Sat by Pulse 98 Oximetry (%) 01/16/17 01/16/17 01/16/17 15:45 16:15 16:45 Temperature Pulse Rate 58 L 56 L 93 H Pulse Rate [ Right] Respiratory 18 18 18 Rate Blood Pressure 148/83 138/80 122/74 Blood Pressure [Right] O2 Sat by Pulse Oximetry (%) 01/16/17 01/16/17 01/16/17 17:15 17:45 18:15 Temperature Pulse Rate 106 H 95 H 58 L Pulse Rate [ Right] Respiratory 18 18 18 Rate Blood Pressure 128/73 123/63 125/81 Blood Pressure [Right] O2 Sat by Pulse Oximetry (%) 01/16/17 01/16/17 01/16/17 18:45 19:15 19:30 Temperature Pulse Rate 96 H 101 H 68 Pulse Rate [ Right] Respiratory 18 18 18 Rate Blood Pressure 139/70 130/76 122/69 Blood Pressure [Right] O2 Sat by Pulse Oximetry (%) 01/16/17 01/16/17 01/17/17 20:45 22:50 02:00 Temperature 99.2 F 99.9 F H Pulse Rate 115 H 103 H Pulse Rate [ Right] Respiratory 18 20 Rate Blood Pressure 137/79 118/66 Blood Pressure [Right] O2 Sat by Pulse 94 L Oximetry (%) 01/17/17 01/17/17 06:26 10:00 Temperature 99.6 F 98.3 F Pulse Rate 95 H 96 H Pulse Rate [ Right] Respiratory 20 20 Rate Blood Pressure 101/34 114/74 Blood Pressure [Right] O2 Sat by Pulse Oximetry (%) Intake & Output 01/15/17 01/16/17 01/17/17 01/18/17 07:59 07:59 07:59 07:59 Intake Total 250 Balance 250 Weight 200 lb 200 lb Nad, calm + pallor, frail jvd elevated, neck supple Bibasilar dullness. poor effort rrr nl s1, s2 2/6 murmur at apex + bs soft nt nd ext without e/c/c diminished dp/pt no carotid bruits alert and oriented x3 no jaundice, diaphoresis CBC, BMP 01/16/17 11:18 01/17/17 05:30 EKG: NSR, anterolateral ST dep/TWI, similar to priors tele: sr/sinus tach, pvc's, 3-beat nsvt echo 01/2017: 1+ concentric lvh. 1+ lve. LV fn severely reduced, global. nl rv size, mildly depressed fn. 1+ lae. mod-sev eccentric MR. 1+ tr. rvsp 40- 50. cxr: Pulmonary congestion. Right pleural effusion with atelectasis vs. infiltrate. Atelectasis/pleural reaction at left base. Prominent mediastinum. echo 09/2016: Sev LV dilation. Sev reduced LV function. (global). RV not well visualized. Mobile density c/w torn chordae (veg can't be excluded). Ao not well visualized. RVSP not assessed. (During hospital admit for sepsis) - NL LV function 01/2016. 66 y.o. male with a PMH of HTN, HL, systolic cardiomyopathy CHF, ESRD (on HD), chronic anemia, sacral debubitus ulcers, copd, and IDDM who p/w CP and noted to be hyperkalemic. CP: - CE's neg x 2. EKG similar to priors. No evidence of acute acs. - Likely has underlying CAD. - ASA, statin --> monitor hgb. currently at baseline 7-8. - mgm't of electrolyte abnormalities per renal - mgm't of volume per renal. - con't tele New Systolic cardiomyopathy - acute exacerbation - Recently noted to have depressed EF during admit for sepsis in September. Repeat echo shows persistently depressed EF. --> New dx of cardiomyopathy. Had long discussion with patient regarding ischemic evaluation. If he were to have ischemic etiology, invasive interventions would have risk. Patient endorses that he would have difficulty being adherent to a DAPT regimen, but states he may be able to be adherent for a short course (which may be possible in setting of bms). Patient has significant anemia with h/o transfusion which may worsen on dapt. Alternatively, his risk in setting of cabg also appears significant due to his frailty, poor compliance and resistance to ambulation. Patient engaged in discussion. Would recommend outpatient (inpatient if he is still admitted after the weekend) stress testing to assess whether cardiomyopathy could have ischemic component as first step. If he does appear to have ischemic cardiomyopathy will need further discussion regarding risk/benefit of intervention. - here with volume overload/exacerbation. Unclear if this is related to non- adherence to HD or from chf exacerbation. - volume mgm't per renal. Con't lasix per renal. - con't metoprolol - would favor hydralazine/isordil combo over acei in light of recurrent hyperkalemia. BP trending down, would start once there is bp room. HTN - meds as above. hl - statin. - mgm't of copd, decub ulceres, DM per pmd.
[2017-01-17 15:00] LABS: MCH 26.6 pg (25.7-33.7); MCHC 31.3 g/dl (32.0-35.9); MEAN CELL VOLUME 84.8 fl (80-96); MEAN PLT VOLUME 7.5 fl (7.5-11.1); PLATELET COUNT 177 K/MM3 (134-434); RDW 17.6 % (11.9-15.9); WHITE BLOOD COUNT 9.2 K/mm3 (4.0-10.0)
[2017-01-17] MEDS: ZINC SULFATE 220 MG CAPSULE (FP) PO SCH (17:01)
[2017-01-17] MEDS ORDERED: MIRTAZAPINE 15 MG TABLET (FP) PO SCH (22:00)
[2017-01-18 06:06] LABS: HEP B SURFACE AB Non Reactive (.)
[2017-01-18] MEDS: INSULIN (NOVOLOG) ASPART 100 UNITS/ML 10ML VIAL SQ SCH ×4 (06:19→22:55)
[2017-01-18 09:31] LABS: MCHC 30.7 g/dl (32.0-35.9); MEAN CELL VOLUME 84.6 fl (80-96); MEAN PLT VOLUME 7.8 fl (7.5-11.1); PLATELET COUNT 190 K/MM3 (134-434); RDW 17.5 % (11.9-15.9); WHITE BLOOD COUNT 12.5 K/mm3 (4.0-10.0)
[2017-01-18 09:58] LABS: ANION GAP 10 (8-16); CALCIUM 7.8 mg/dL (8.5-10.1); CO2 28 mmol/L (21-32); CREATININE 4.7 mg/dL (0.7-1.3); GLUCOSE,RANDOM 56 mg/dL (74-106)
[2017-01-18] MEDS: INSULIN DETEMIR 100 UNITS/ML MDV SQ SCH ×2 (10:00→22:55)
[2017-01-18] MEDS ORDERED: ALTEPLASE 2 MG VIAL IVPUSH ONE (11:23)
--- NOTE | 2017-01-18 11:23 | PN ---
Progress Note (short form) - Note Progress Note: Renal Follow up for ESRD on HD Pt seen and examined during dialysis BP stable, catheter with poor flow, lines had to be switched UF goal is 3L getting 1 prbc with HD pt without complaints Vital Signs Temperature 98.7 F 01/18/17 06:18 Pulse Rate 91 H 01/18/17 11:00 Respiratory Rate 16 01/18/17 11:00 Blood Pressure 98/57 01/18/17 11:00 O2 Sat by Pulse Oximetry (%) 94 L 01/17/17 21:00 Intake & Output 01/15/17 01/16/17 01/17/17 01/18/17 23:59 23:59 23:59 23:59 Intake Total 130 240 240 Balance 130 240 240 Weight 200 lb 200 lb NAD RRR, no M/R CTA soft NT No edema large sacral decubitis ulcer CBC, BMP 01/18/17 07:30 01/18/17 06:00 Current Medications Acetaminophen (Tylenol -) 650 mg PO Q4H PRN PRN Reason: FEVER OR PAIN Alteplase, Recombinant (Cathflo Activase -) 2 mg IVPUSH ONCE ONE Stop: 01/18/17 11:24 Aspirin (Asa -) 81 mg PO DAILY [facility] Last Admin: 01/17/17 11:31 Dose: 81 mg Collagenase (Santyl -) 1 applic TP DAILY [facility] Last Admin: 01/17/17 17:00 Dose: 1 applic Finasteride (Proscar -) 5 mg PO DAILY [facility] Last Admin: 01/17/17 11:27 Dose: 5 mg Furosemide (Lasix -) 80 mg PO DAILY [facility] Last Admin: 01/17/17 11:38 Dose: Not Given Insulin Aspart (Novolog Vial) 0 units SQ ACHS [facility] PRN Reason: Protocol Last Admin: 01/18/17 06:19 Dose: Not Given Insulin Detemir (Levemir Vial) 12 units SQ BID [facility] Last Admin: 01/18/17 10:00 Dose: Not Given Metoprolol Succinate (Toprol Xl -) 50 mg PO DAILY [facility] Last Admin: 01/17/17 11:27 Dose: 50 mg Mirtazapine (Remeron -) 7.5 mg PO HS [facility] Last Admin: 01/17/17 21:33 Dose: 7.5 mg Zinc Sulfate (Orazinc -) 220 mg PO DAILY [facility] Last Admin: 01/17/17 17:01 Dose: 220 mg A/P 66 year old gentleman with PMhx of ESRD on HD (TTS at [facility]), Hypertension, CHF, HLD, IDDM, Sacral decubitis ulcers, Chronic anemia who presented from [place] with complaints of SOB and chest pain and found to have hyperkalemia with K of 6.7. #ESRD on HD with Hyperkalemia tolerating hd well next hd planned for Friday continue renal diet and 1.2 L fluid restriction #Chest pain/SOB s/p UF with HD yesterday cardiac enzyme negative echo done cardiology follow up will continue UF with HD as needed #Acute on chronic anemia getting additional 1 unit prbc transfusion today Thank you Will follow Dominick Vanegas DO Problem List - Problems (1) Chest pain Code(s): R07.9 - CHEST PAIN, UNSPECIFIED (2) Hyperkalemia Code(s): E87.5 - HYPERKALEMIA (3) SOB (shortness of breath) Code(s): R06.02 - SHORTNESS OF BREATH (4) Anemia Code(s): D64.9 - ANEMIA, UNSPECIFIED Qualifiers: (5) End stage kidney disease Code(s): N18.6 - END STAGE RENAL DISEASE
--- NOTE | 2017-01-18 12:08 | PN ---
Progress Note, Physician Chief Complaint: pt having dialysis no complaints of chest pain not really engaging in conversation - Current Medication List Current Medications: Active Medications Acetaminophen (Tylenol -) 650 mg PO Q4H PRN PRN Reason: FEVER OR PAIN Aspirin (Asa -) 81 mg PO DAILY [facility] Last Admin: 01/17/17 11:31 Dose: 81 mg Collagenase (Santyl -) 1 applic TP DAILY [facility] Last Admin: 01/17/17 17:00 Dose: 1 applic Finasteride (Proscar -) 5 mg PO DAILY [facility] Last Admin: 01/17/17 11:27 Dose: 5 mg Furosemide (Lasix -) 80 mg PO DAILY [facility] Last Admin: 01/17/17 11:38 Dose: Not Given Insulin Aspart (Novolog Vial) 0 units SQ ACHS [facility] PRN Reason: Protocol Last Admin: 01/18/17 11:58 Dose: 2 units Insulin Detemir (Levemir Vial) 12 units SQ BID [facility] Last Admin: 01/18/17 10:00 Dose: Not Given Metoprolol Succinate (Toprol Xl -) 50 mg PO DAILY [facility] Last Admin: 01/17/17 11:27 Dose: 50 mg Zinc Sulfate (Orazinc -) 220 mg PO DAILY [facility] Last Admin: 01/17/17 17:01 Dose: 220 mg - Objective Vital Signs: Vital Signs Temperature 98.7 F 01/18/17 06:18 Pulse Rate 90 01/18/17 11:10 Respiratory Rate 16 01/18/17 11:10 Blood Pressure 105/56 01/18/17 11:10 O2 Sat by Pulse Oximetry (%) 94 L 01/17/17 21:00 Constitutional: Yes: No Distress Cardiovascular: Yes: Regular Rate and Rhythm Respiratory: No: Rales Gastrointestinal: Yes: Soft. No: Tenderness Edema: No Labs: CBC, BMP 01/18/17 07:30 Problem List - Problems (1) Chest pain Code(s): R07.9 - CHEST PAIN, UNSPECIFIED (2) Hyperkalemia Code(s): E87.5 - HYPERKALEMIA (3) CHF (congestive heart failure) Code(s): I50.9 - HEART FAILURE, UNSPECIFIED (4) COPD (chronic obstructive pulmonary disease) Code(s): J44.9 - CHRONIC OBSTRUCTIVE PULMONARY DISEASE, UNSPECIFIED (5) End stage kidney disease Code(s): N18.6 - END STAGE RENAL DISEASE Assessment/Plan PLAN Hyperkalemia resolved Check CXR today getting transfused today as well Cardiac enzymes x 3 negative continue with meds Echo- noted depressed-- will start Zoloft and increase Remeron possible dc in AM to [place]-- pt not willing for any further cardiac work up-- will do as outpt
[2017-01-18] MEDS ORDERED: PT OWN MED DRAWER 7, Y5N ONE (12:22)
[2017-01-18 12:27] LABS: CREATININE 1.9 mg/dL (0.7-1.3)
[2017-01-18] MEDS: METOPROLOL SUCCINATE 50 MG TAB.SR.24H (FP) PO SCH (12:48)
[2017-01-18] MEDS: ASPIRIN 81 MG CHEWABLE TABLETS PO SCH (12:48)
[2017-01-18] MEDS: SERTRALINE HCL 25 MG TABLET (FP) PO SCH (12:48)
[2017-01-18] MEDS: FINASTERIDE 5 MG TABLET (FP) PO SCH (12:48)
[2017-01-18] MEDS: ZINC SULFATE 220 MG CAPSULE (FP) PO SCH (12:49)
[2017-01-18] MEDS: FUROSEMIDE 40 MG TABLET (FP) PO SCH (12:51)
[2017-01-18] MEDS: COLLAGENASE CLOSTRIDIUM HIST. 30 GRAMS TUBE TP SCH (12:55)
--- NOTE | 2017-01-18 14:35 | PN ---
Progress Note (short form) - Note Progress Note: CC: CP S: States intermittent recurrence of cp, will not elaborate further. no sob, palps, dizziness. transfusion today Current Medications Acetaminophen (Tylenol -) 650 mg PO Q4H PRN PRN Reason: FEVER OR PAIN Aspirin (Asa -) 81 mg PO DAILY [facility] Last Admin: 01/18/17 12:48 Dose: 81 mg Collagenase (Santyl -) 1 applic TP DAILY [facility] Last Admin: 01/18/17 12:55 Dose: 1 applic Finasteride (Proscar -) 5 mg PO DAILY [facility] Last Admin: 01/18/17 12:48 Dose: 5 mg Furosemide (Lasix -) 80 mg PO DAILY [facility] Last Admin: 01/18/17 12:51 Dose: Not Given Insulin Aspart (Novolog Vial) 0 units SQ ACHS [facility] PRN Reason: Protocol Last Admin: 01/18/17 11:58 Dose: 2 units Insulin Detemir (Levemir Vial) 12 units SQ BID [facility] Last Admin: 01/18/17 10:00 Dose: Not Given Metoprolol Succinate (Toprol Xl -) 50 mg PO DAILY [facility] Last Admin: 01/18/17 12:48 Dose: 50 mg Mirtazapine (Remeron -) [address] [facility] Sertraline HCl (Zoloft -) 25 mg PO DAILY [facility] Last Admin: 01/18/17 12:48 Dose: 25 mg Zinc Sulfate (Orazinc -) 220 mg PO DAILY [facility] Last Admin: 01/18/17 12:49 Dose: 220 mg Vital Signs - 24 hr 01/17/17 01/17/17 01/17/17 15:12 17:52 21:00 Temperature 98 F 98.0 F Pulse Rate 64 84 Respiratory 18 18 Rate Blood Pressure 96/54 116/57 O2 Sat by Pulse 94 L Oximetry (%) 01/17/17 01/18/17 01/18/17 22:00 02:00 06:18 Temperature 98.2 F 99.3 F 98.7 F Pulse Rate 103 H 118 H 110 H Respiratory 20 20 20 Rate Blood Pressure 124/69 132/83 127/76 O2 Sat by Pulse Oximetry (%) 01/18/17 01/18/17 01/18/17 07:20 07:30 08:00 Temperature Pulse Rate 103 H 99 H 89 Respiratory 16 16 16 Rate Blood Pressure 99/47 97/41 95/50 O2 Sat by Pulse Oximetry (%) 01/18/17 01/18/17 01/18/17 08:30 09:00 09:30 Temperature Pulse Rate 93 H 92 H 91 H Respiratory 16 16 16 Rate Blood Pressure 109/67 118/77 107/68 O2 Sat by Pulse 94 L Oximetry (%) 01/18/17 01/18/17 01/18/17 10:00 10:30 11:00 Temperature Pulse Rate 95 H 89 91 H Respiratory 16 16 16 Rate Blood Pressure 97/60 102/61 98/57 O2 Sat by Pulse Oximetry (%) 01/18/17 01/18/17 11:05 11:10 Temperature Pulse Rate 80 90 Respiratory 16 16 Rate Blood Pressure 98/63 105/56 O2 Sat by Pulse Oximetry (%) Intake & Output 01/16/17 01/17/17 01/18/17 01/19/17 07:59 07:59 07:59 07:59 Intake Total 250 360 Balance 250 360 Weight 200 lb 200 lb Currently lying flat, under blanket Uncooperative with exam. Nad, calm, frail + pallor Bibasilar rales,. poor effort rrr nl s1, s2 2/6 murmur at apex + bs soft nt nd ext without e/c/c diminished dp/pt no carotid bruits, limited evaluation alert and oriented x3 no jaundice, diaphoresis CBC, BMP 01/18/17 07:30 01/18/17 11:00 Laboratory Tests 01/18/17 06:00 Sodium 134 L Potassium 4.7 Chloride 96 L Carbon Dioxide 28 BUN 47 H D EKG: NSR, anterolateral ST dep/TWI, similar to priors tele: sr pvc's, frequent 3-4 beat nsvt echo 01/2017: 1+ concentric lvh. 1+ lve. LV fn severely reduced, global. nl rv size, mildly depressed fn. 1+ lae. mod-sev eccentric MR. 1+ tr. rvsp 40- 50. cxr: Pulmonary congestion. Right pleural effusion with atelectasis vs. infiltrate. Atelectasis/pleural reaction at left base. Prominent mediastinum. echo 09/2016: Sev LV dilation. Sev reduced LV function. (global). RV not well visualized. Mobile density c/w torn chordae (veg can't be excluded). Ao not well visualized. RVSP not assessed. (During hospital admit for sepsis) - NL LV function 01/2016. 66 y.o. male with a PMH of HTN, HL, systolic cardiomyopathy CHF, ESRD (on HD), chronic anemia, sacral debubitus ulcers, copd, and IDDM who p/w CP and noted to be hyperkalemic. CP: - CE's neg x 2. EKG similar to priors. No evidence of acute acs. - Likely has underlying CAD. - ASA, statin --> monitor hgb. currently at baseline 7-8. receiving transfusion today 01/18 - mgm't of electrolytes per renal, hyperkalemia resolved. - mgm't of volume per renal. - con't tele New Systolic cardiomyopathy - acute exacerbation - Recently noted to have depressed EF during admit for sepsis in September. Repeat echo shows persistently depressed EF. --> New dx of cardiomyopathy. Had long discussion with patient regarding ischemic evaluation. If he were to have ischemic etiology, invasive interventions would have risk. Patient endorses that he would have difficulty being adherent to a DAPT regimen, but states he may be able to be adherent for a short course (which may be possible in setting of bms). Patient has significant anemia with h/o transfusion which may worsen on dapt. Alternatively, his risk in setting of cabg also appears significant due to his frailty, poor compliance and resistance to ambulation. Patient engaged in discussion. Would recommend outpatient (inpatient if he is still admitted after the weekend) stress testing to assess whether cardiomyopathy could have ischemic component as first step. If he does appear to have ischemic cardiomyopathy will need further discussion regarding risk/benefit of intervention. - here with volume overload/exacerbation. Unclear if this is related to non- adherence to HD or from chf exacerbation. - volume mgm't per renal. Con't lasix per renal. - con't metoprolol. frequent nsvt. may improve once hemoglobin improves. will change metoprolol to 25 mg bid 01/18 - would favor hydralazine/isordil combo over acei in light of recurrent hyperkalemia. BP con't to trend down, would start once there is bp room. HTN - meds as above. hl - statin. - mgm't of copd, decub ulceres, DM per pmd.
[2017-01-18] MEDS: MIRTAZAPINE 15 MG TABLET (FP) PO SCH ×2 (22:53→22:58)
[2017-01-19] MEDS: INSULIN (NOVOLOG) ASPART 100 UNITS/ML 10ML VIAL SQ SCH ×4 (06:27→22:12)
[2017-01-19 07:17] LABS: BASOPHIL 0.3 % (0-2.0); EOSINOPHIL 1.4 % (0-4.5); MCH 26.5 pg (25.7-33.7); MEAN CELL VOLUME 85.2 fl (80-96); MEAN PLT VOLUME 7.5 fl (7.5-11.1); PLATELET COUNT 157 K/MM3 (134-434); RDW 17.3 % (11.9-15.9); WHITE BLOOD COUNT 11.5 K/mm3 (4.0-10.0)
[2017-01-19 07:23] LABS: ANION GAP 8 (8-16); CO2 31 mmol/L (21-32); CREATININE 3.7 mg/dL (0.7-1.3); GLUCOSE,RANDOM 83 mg/dL (74-106); MAGNESIUM 2.1 mg/dL (1.8-2.4)
[2017-01-19] MEDS ORDERED: PT OWN MED DRAWER 7, Y5N ONE (09:48)
[2017-01-19] MEDS ORDERED: ALBUTEROL SO4 0.083% IH SOL 2.5 MG/3 ML VIAL.NEB. NEB PRN (10:02)
[2017-01-19] MEDS: METOPROLOL SUCCINATE 25 MG TAB.SR.24H (FP) PO SCH ×2 (10:06→22:08)
[2017-01-19] MEDS: ZINC SULFATE 220 MG CAPSULE (FP) PO SCH (10:06)
[2017-01-19] MEDS: SERTRALINE HCL 25 MG TABLET (FP) PO SCH (10:06)
[2017-01-19] MEDS: FINASTERIDE 5 MG TABLET (FP) PO SCH (10:06)
[2017-01-19] MEDS: ASPIRIN 81 MG CHEWABLE TABLETS PO SCH (10:07)
[2017-01-19] MEDS: FUROSEMIDE 40 MG TABLET (FP) PO SCH (10:07)
--- NOTE | 2017-01-19 10:08 | DS ---
Physical Examination Vital Signs: Vital Signs Temperature 99.1 F 01/19/17 06:30 Pulse Rate 93 H 01/19/17 06:30 Respiratory Rate 18 01/19/17 06:30 Blood Pressure 106/68 01/19/17 06:30 O2 Sat by Pulse Oximetry (%) 94 L 01/18/17 21:00 Constitutional: Yes: No Distress, Calm Cardiovascular: Yes: Regular Rate and Rhythm Respiratory: Yes: Diminished, Rhonchi Gastrointestinal: Yes: Normal Bowel Sounds, Soft. No: Distention, Tenderness Edema: No Labs: CBC, BMP 01/19/17 06:40 01/19/17 06:40 Discharge Summary Reason For Visit: CHEST PAIN Current Active Problems Chest pain (Acute) Hyperkalemia (Acute) Hospital Course: Admitted for chest pain Found to be hyperkalemic, volume overload, acute on chronic diastolic +systolic dysfunction. Seen byRenal and Cardiology Was dialysed the same day he came in He is advised to take Lasix daily-- non compliant-- did not take it today Not willing to do stress test now-- but can be done as outpt if pt agrees ACS ruled out with three negative cardiac enzymes Received one unit PRBC here Levemir decreased and nebs started as needed Continue wound care Pt is depressed-- started on Zoloft and remeron increased-- will need Psychiatry eval when pt goes back to [facility] Stable for dc back to [place] next dialysis on Friday Condition: Improved - Instructions Referrals: Joy Turk MD [Primary Care Provider] - [facility]position[facility] - Home Medications Comprehensive Discharge Medication List: Ambulatory Orders Metoprolol Succinate [Toprol XL -] 50 mg PO DAILY 01/24/16 Acetaminophen [Tylenol .Regular Strength -] 650 mg PO Q4H PRN #0 tablet Collagenase Clostridium Hist. [Santyl -] 1 applic TP DAILY tube 10/17/16 Finasteride [Proscar -] 5 mg PO DAILY tablet 10/17/16 Ascorbate Calcium [Vitamin C] 500 mg PO DAILY 12/03/16 Insulin (Novolog) [Novolog -] 0 units SQ ACHS 12/03/16 Mag Hydrox/Al Hydrox/Simeth [Adrienne-Lanta Liquid] 10 ml PO ACHS 12/03/16 Vit A/Vitamin D3/E/Aloe V/Znox [Periguard Ointment] 0 gm TP ASDIR 12/03/16 Zinc Sulfate 220 mg PO DAILY 12/03/16 Albuterol 0.083% Nebulizer Myrna [Ventolin 0.083% Nebulizer Soln -] 1 amp NEB Q6H PRN #30 amp 01/19/17 Aspirin [ASA -] 81 mg PO DAILY #30 tab.chew 01/19/17 Furosemide [Lasix -] 80 mg PO DAILY #60 tablet 01/19/17 Insulin (Levemir) [Levemir Vial] 10 units SQ BID #100 ml 01/19/17 Mirtazapine [Remeron -] 15 mg PO HS #30 tablet 01/19/17 Sertraline HCl [Zoloft -] 25 mg PO DAILY #60 tablet 01/19/17
[2017-01-19] MEDS: INSULIN DETEMIR 100 UNITS/ML MDV SQ SCH ×3 (10:13→22:12)
[2017-01-19] MEDS: COLLAGENASE CLOSTRIDIUM HIST. 30 GRAMS TUBE TP SCH (10:13)
--- NOTE | 2017-01-19 20:06 | PN ---
Progress Note (short form) - Note Progress Note: CC: CP S: Still with mild brief intermittent cp, but states it only occurs if he takes a deep breath. no sob, palps, dizziness. Current Medications Acetaminophen (Tylenol -) 650 mg PO Q4H PRN PRN Reason: FEVER OR PAIN Albuterol Sulfate (Ventolin 0.083% Nebulizer Soln -) 1 amp NEB Q6H PRN PRN Reason: SHORT OF BREATH/WHEEZING Aspirin (Asa -) [address] [facility] Last Admin: 01/19/17 10:07 Dose: 81 mg Atorvastatin Calcium (Lipitor -) [address] [facility] Collagenase (Santyl -) [address] [facility] Last Admin: 01/19/17 10:13 Dose: Not Given Finasteride (Proscar -) [address] [facility] Last Admin: 01/19/17 10:06 Dose: 5 mg Furosemide (Lasix -) [address] [facility] Last Admin: 01/19/17 10:07 Dose: Not Given Insulin Aspart (Novolog Vial) [address] [facility] PRN Reason: Protocol Last Admin: 01/19/17 17:10 Dose: 2 units Insulin Detemir (Levemir Vial) 10 units SQ BID@0700,2200 [facility] Last Admin: 01/19/17 10:13 Dose: Not Given Metoprolol Succinate (Toprol Xl -) [address] [facility] Last Admin: 01/19/17 10:06 Dose: 25 mg Mirtazapine (Remeron -) [address] [facility] Last Admin: 01/18/17 22:58 Dose: Not Given Sertraline HCl (Zoloft -) [address] [facility] Last Admin: 01/19/17 10:06 Dose: 25 mg Zinc Sulfate (Orazinc -) [address] [facility] Last Admin: 01/19/17 10:06 Dose: 220 mg Vital Signs - 24 hr 01/18/17 01/18/17 01/19/17 21:00 22:00 06:30 Temperature 99.7 F H 99.1 F Pulse Rate 96 H 93 H Respiratory 20 18 Rate Blood Pressure 104/70 106/68 O2 Sat by Pulse 94 L Oximetry (%) 01/19/17 01/19/17 09:00 10:00 Temperature 98.2 F Pulse Rate 93 H Respiratory 18 Rate Blood Pressure 100/53 O2 Sat by Pulse 99 Oximetry (%) Intake & Output 01/17/17 01/18/17 01/19/17 01/20/17 07:59 07:59 07:59 07:59 Intake Total 250 360 0 Balance 250 360 0 Weight 200 lb 200 lb Nad, calm, frail Bibasilar rales,. poor effort rrr nl s1, s2 2/6 murmur at apex (limited evaluation, pt will not adjust position) + bs soft nt nd ext without e/c/c diminished dp/pt no carotid bruits, limited evaluation alert and oriented x3 no jaundice, diaphoresis CBC, BMP 01/19/17 06:40 01/19/17 06:40 EKG: NSR, anterolateral ST dep/TWI, similar to priors tele: sr decreasing frequency of 3b nsvt. cxr: Pulmonary congestion. Right pleural effusion with atelectasis vs. infiltrate. Atelectasis/pleural reaction at left base. Prominent mediastinum. repeat cxr 01/18: persistent congestion. echo 01/2017: 1+ concentric lvh. 1+ lve. LV fn severely reduced, global. nl rv size, mildly depressed fn. 1+ lae. mod-sev eccentric MR. 1+ tr. rvsp 40- 50. echo 09/2016: Sev LV dilation. Sev reduced LV function. (global). RV not well visualized. Mobile density c/w torn chordae (veg can't be excluded). Ao not well visualized. RVSP not assessed. (During hospital admit for sepsis) - NL LV function 01/2016. 66 y.o. male with a PMH of HTN, HL, systolic cardiomyopathy CHF, ESRD (on HD), chronic anemia, sacral debubitus ulcers, copd, and IDDM who p/w CP and noted to be hyperkalemic. CP: - CE's neg x 2. EKG similar to priors. No evidence of acute acs. Finally has given a description of CP today --> more c/w pleuritic pain. - mgm't of electrolytes per renal, hyperkalemia resolved. - con't tele while here. New Systolic cardiomyopathy - acute exacerbation - Recently noted to have depressed EF during admit for sepsis in September. Repeat echo shows persistently depressed EF. --> New dx of cardiomyopathy. Had long discussion with patient regarding ischemic evaluation. If he were to have ischemic etiology, invasive interventions would have risk. Patient endorses that he would have difficulty being adherent to a DAPT regimen, but states he may be able to be adherent for a short course (which may be possible in setting of bms). Patient also has risk 2/2 significant anemia with h/o transfusion which may worsen on dapt. Alternatively, his risk in setting of cabg also appears significant due to his frailty, poor compliance and resistance to ambulation. Patient engaged in discussion. Would recommend outpatient ( inpatient if he is still admitted after the weekend) stress testing to assess whether cardiomyopathy could have ischemic component. If he does appear to have ischemic cardiomyopathy will need further discussion regarding risk/ benefit of intervention. - here with volume overload/exacerbation. Unclear if this is related to non- adherence to HD or from chf exacerbation. - volume mgm't per renal. Con't lasix per renal. - con't metoprolol. frequent nsvt. may improve once hemoglobin improves. will change metoprolol to 25 mg bid 01/18 to try to lessen worsening low bp's. - would favor hydralazine/isordil combo over acei in light of recurrent hyperkalemia. BP con't to trend down, would start once there is bp room. - ASA, statin to cover for cad. monitor hgb on asa. HTN - meds as above. hl - statin. - mgm't of copd, decub ulceres, DM per pmd.
[2017-01-19] MEDS ORDERED: ATORVASTATIN CA 40 MG TABLET (FP) PO SCH (22:00)
[2017-01-19] MEDS: MIRTAZAPINE 15 MG TABLET (FP) PO SCH (22:13)
[2017-01-20 05:51] VITALS: TEMP 98.1
[2017-01-20] MEDS: INSULIN DETEMIR 100 UNITS/ML MDV SQ SCH (06:16)
[2017-01-20] MEDS: INSULIN (NOVOLOG) ASPART 100 UNITS/ML 10ML VIAL SQ SCH ×3 (06:16→16:52)
[2017-01-20 07:40] LABS: ANION GAP 12 (8-16); CALCIUM 8.1 mg/dL (8.5-10.1); CO2 26 mmol/L (21-32); CREATININE 4.6 mg/dL (0.7-1.3); GLUCOSE,RANDOM 243 mg/dL (74-106)
[2017-01-20] MEDS ORDERED: DIPYRIDAMOLE STRESS TEST 50 MG in DEXTROSE 5%-WATER - 40 ML IVPB ONE (10:00)
[2017-01-20] MEDS: ZINC SULFATE 220 MG CAPSULE (FP) PO SCH (14:05)
[2017-01-20] MEDS: SERTRALINE HCL 25 MG TABLET (FP) PO SCH (14:05)
[2017-01-20] MEDS: FINASTERIDE 5 MG TABLET (FP) PO SCH (14:05)
[2017-01-20] MEDS: COLLAGENASE CLOSTRIDIUM HIST. 30 GRAMS TUBE TP SCH (14:06)
[2017-01-20] MEDS: FUROSEMIDE 40 MG TABLET (FP) PO SCH (14:06)
[2017-01-20] MEDS: METOPROLOL SUCCINATE 25 MG TAB.SR.24H (FP) PO SCH (14:06)
[2017-01-20] MEDS: ASPIRIN 81 MG CHEWABLE TABLETS PO SCH (14:06)
--- NOTE | 2017-01-20 16:08 | PN ---
Progress Note (short form) - Note Progress Note: no complaints says he has warts to be removed in foot s/p stress test today Vital Signs - 24 hr 01/19/17 01/19/17 01/20/17 21:00 22:00 05:50 Temperature 98.3 F 98.1 F Pulse Rate 102 H 98 H Respiratory 18 18 16 Rate Blood Pressure 116/63 99/58 O2 Sat by Pulse 99 Oximetry (%) 01/20/17 09:00 Temperature Pulse Rate Respiratory 16 Rate Blood Pressure O2 Sat by Pulse 97 Oximetry (%) Current Medications Generic Name Dose Route Start Last Admin Trade Name Freq PRN Reason Stop Dose Admin Acetaminophen 650 mg 01/16/17 13:36 Tylenol - PO Q4H PRN FEVER OR PAIN Albuterol Sulfate 1 amp 01/19/17 10:02 01/20/17 00:00 Ventolin 0.083% Nebulizer Soln - NEB 1 amp Q6H PRN Administration SHORT OF BREATH/WHEEZING Aspirin 81 mg 01/17/17 10:00 01/20/17 14:06 Asa - PO 81 mg DAILY [facility] Administration Atorvastatin Calcium 40 mg 01/19/17 22:00 01/19/17 22:12 Lipitor - PO Not Given HS [facility] Collagenase 1 applic 01/17/17 10:00 01/20/17 14:06 Santyl - TP 1 applic DAILY [facility] Administration Finasteride 5 mg 01/17/17 10:00 01/20/17 14:05 Proscar - PO 5 mg DAILY [facility] Administration Furosemide 80 mg 01/17/17 10:00 01/20/17 14:06 Lasix - PO 80 mg DAILY [facility] Administration Insulin Aspart 0 units 01/16/17 16:30 01/20/17 12:00 Novolog Vial SQ Not Given ACHS [facility] Protocol Insulin Detemir 10 units 01/19/17 10:01 01/20/17 06:16 Levemir Vial SQ Not Given BID@0700,2200 [facility] Metoprolol Succinate 37.5 mg 01/20/17 22:00 Toprol Xl - PO BID [facility] Mirtazapine 15 mg 01/18/17 12:06 01/19/17 22:13 Remeron - PO Not Given HS [facility] Sertraline HCl 25 mg 01/18/17 12:15 01/20/17 14:05 Zoloft - PO 25 mg DAILY [facility] Administration Zinc Sulfate 220 mg 01/17/17 10:00 01/20/17 14:05 Orazinc - PO 220 mg DAILY [facility] Administration Laboratory Results - last 24 hr 01/16/17 01/19/17 01/20/17 15:45 16:25 05:45 Sodium 131 L Potassium 4.5 Chloride 93 L Carbon Dioxide 26 Anion Gap 12 BUN 48 H D Creatinine 4.6 H D POC Glucometer 182 Random Glucose 243 H D Calcium 8.1 L Blood Type B POSITIVE Antibody Screen Negative Crossmatch See Detail 01/20/17 01/20/17 01/20/17 05:48 10:10 14:04 Sodium Potassium Chloride Carbon Dioxide Anion Gap BUN Creatinine POC Glucometer 251 235 247 Random Glucose Calcium Blood Type Antibody Screen Crossmatch S1 S2 RRR Lungs decreased PLAN Will call podiatry at [place] stress test -no ischemia stable for dc to [place] Problem List - Problems (1) Chest pain Code(s): R07.9 - CHEST PAIN, UNSPECIFIED (2) Hyperkalemia Code(s): E87.5 - HYPERKALEMIA (3) CHF (congestive heart failure) Code(s): I50.9 - HEART FAILURE, UNSPECIFIED (4) COPD (chronic obstructive pulmonary disease) Code(s): J44.9 - CHRONIC OBSTRUCTIVE PULMONARY DISEASE, UNSPECIFIED (5) End stage kidney disease Code(s): N18.6 - END STAGE RENAL DISEASE
[2017-01-20 17:38] VITALS: BP 129/78; PULSE 103
--- NOTE | 2017-01-20 17:41 | PN ---
Progress Note (short form) - Note Progress Note: CC: CP S: no cp, sob, palps, dizziness. had stress test today. Current Medications Acetaminophen (Tylenol -) 650 mg PO Q4H PRN PRN Reason: FEVER OR PAIN Albuterol Sulfate (Ventolin 0.083% Nebulizer Soln -) 1 amp NEB Q6H PRN PRN Reason: SHORT OF BREATH/WHEEZING Last Admin: 01/20/17 00:00 Dose: 1 amp Aspirin (Asa -) 81 mg PO DAILY [facility] Last Admin: 01/20/17 14:06 Dose: 81 mg Atorvastatin Calcium (Lipitor -) 40 mg PO HS [facility] Last Admin: 01/19/17 22:12 Dose: Not Given Collagenase (Santyl -) 1 applic TP DAILY [facility] Last Admin: 01/20/17 14:06 Dose: 1 applic Finasteride (Proscar -) 5 mg PO DAILY [facility] Last Admin: 01/20/17 14:05 Dose: 5 mg Furosemide (Lasix -) 80 mg PO DAILY [facility] Last Admin: 01/20/17 14:06 Dose: 80 mg Insulin Aspart (Novolog Vial) 0 units SQ ACHS [facility] PRN Reason: Protocol Last Admin: 01/20/17 16:52 Dose: Not Given Insulin Detemir (Levemir Vial) 10 units SQ BID@0700,2200 [facility] Last Admin: 01/20/17 06:16 Dose: Not Given Metoprolol Succinate (Toprol Xl -) 37.5 mg PO BID [facility] Mirtazapine (Remeron -) 15 mg PO HS [facility] Last Admin: 01/19/17 22:13 Dose: Not Given Sertraline HCl (Zoloft -) 25 mg PO DAILY [facility] Last Admin: 01/20/17 14:05 Dose: 25 mg Zinc Sulfate (Orazinc -) 220 mg PO DAILY [facility] Last Admin: 01/20/17 14:05 Dose: 220 mg Vital Signs - 24 hr 01/19/17 01/19/17 01/20/17 21:00 22:00 05:50 Temperature 98.3 F 98.1 F Pulse Rate 102 H 98 H Respiratory 18 18 16 Rate Blood Pressure 116/63 99/58 O2 Sat by Pulse 99 Oximetry (%) 01/20/17 01/20/17 09:00 17:37 Temperature Pulse Rate 103 H Respiratory 16 19 Rate Blood Pressure 129/78 O2 Sat by Pulse 97 Oximetry (%) Intake & Output 01/18/17 01/19/17 01/20/17 01/21/17 07:59 07:59 07:59 07:59 Intake Total 360 0 650 100 Balance 360 0 650 100 Weight 200 lb Nad, calm, frail Bibasilar rales,. poor effort rrr nl s1, s2 2/6 murmur at apex (limited evaluation, pt will not adjust position) + bs soft nt nd ext without e/c/c diminished dp/pt no carotid bruits, limited evaluation alert and oriented x3 no jaundice, diaphoresis CBC, BMP 01/20/17 05:45 EKG: NSR, anterolateral ST dep/TWI, similar to priors tele: sr decreasing frequency of 3b nsvt. cxr: Pulmonary congestion. Right pleural effusion with atelectasis vs. infiltrate. Atelectasis/pleural reaction at left base. Prominent mediastinum. repeat cxr 01/18: persistent congestion. stress test: dipyridamole. baseline nssttw abnormalities. no ischemic changes with stress. Occ pvc's. moderate-large [id number] inferior fixed defect ( reverse distribution) thought to be 2/2 diaphragmatic attenuation. No ischemia/ infarct. Dilated left ventricle with severely reduced systolic function, global. EF 18%. no mention of tid. echo 01/2017: 1+ concentric lvh. 1+ lve. LV fn severely reduced, global. nl rv size, mildly depressed fn. 1+ lae. mod-sev eccentric MR. 1+ tr. rvsp 40- 50. echo 09/2016: Sev LV dilation. Sev reduced LV function. (global). RV not well visualized. Mobile density c/w torn chordae (veg can't be excluded). Ao not well visualized. RVSP not assessed. (During hospital admit for sepsis) - NL LV function 01/2016. 66 y.o. male with a PMH of HTN, HL, systolic cardiomyopathy CHF, ESRD (on HD), chronic anemia, sacral debubitus ulcers, copd, and IDDM who p/w CP and noted to be hyperkalemic. CP: - CE's neg x 2. EKG similar to priors. No evidence of acute acs. Finally has given a description of CP today --> more c/w pleuritic pain. - mgm't of electrolytes per renal, hyperkalemia resolved. - con't tele while here. New Systolic cardiomyopathy - acute exacerbation - Recently noted to have depressed EF during admit for sepsis in September. Repeat echo shows persistently depressed EF. --> New dx of cardiomyopathy. Had long discussion with patient regarding ischemic evaluation. If he were to have ischemic etiology, invasive interventions would have risk. Patient endorses that he would have difficulty being adherent to a DAPT regimen, but states he may be able to be adherent for a short course (which may be possible in setting of bms). Patient also has risk 2/2 significant anemia with h/o transfusion which may worsen on dapt. Alternatively, his risk in setting of cabg also appears significant due to his frailty, poor compliance and resistance to ambulation. Patient engaged in discussion. Chose to evaluate for ischemia with stress testing. - 01/20 stress test without infarct/ischemia, TID not mentioned. Would manage medically. Further work up of cardiomyopathy as outpatient. - here with volume overload/exacerbation. Unclear if this is related to non- adherence to HD or from chf exacerbation. - volume mgm't per renal. Con't lasix per renal. - changed metoprolol to 25 mg bid (from 50 mg daily) on 01/18 to try to lessen worsening low bp's. frequent nsvt, improved s/p transfusion. Remains borderline tachycardic, have increase metoprolol to 37.5 mg bid. assisted to monitor bp. - would favor hydralazine/isordil combo over acei in light of recurrent hyperkalemia. But BP con't to trend down during admission. Would start as outpatient if there is bp room. - ASA, statin to cover for cad. monitor hgb on asa. Ok to d/c if worsens anemia. HTN - meds as above. hl - statin. - mgm't of copd, decub ulceres, DM per pmd. Stable for d/c from CV perspective.
[2017-01-20] MEDS ORDERED: METOPROLOL SUCCINATE 25 MG TAB.SR.24H (FP) PO SCH (22:00)
--- NOTE | 2017-01-23 12:01 | EKG ---
Test Reason : Blood Pressure : / mmHG Vent. Rate : 088 BPM Atrial Rate : 088 BPM P-R Int : 128 ms QRS Dur : 108 ms QT Int : 380 ms P-R-T Axes : 054 027 128 degrees QTc Int : 459 ms NORMAL SINUS RHYTHM POSSIBLE LEFT ATRIAL ENLARGEMENT ABNORMAL ECG WHEN COMPARED WITH ECG OF 17-DEC-2016 12:26, NO SIGNIFICANT CHANGE WAS FOUND Confirmed by ZULEMA STEIN MD ([id number]) on 01/23/2017 12:01:12 PM Referred By: Confirmed By:ZULEMA STEIN MD
== END 2017-01-20 17:45 | DRG 291 ==
LOC: JER 10:32 → JERBED 14:57 → J4S 20:19
PROVIDERS: ADMIT Internal Medicine; ATTEND Internal Medicine
PROC: 5A1D70Z Performance of Urinary Filtration, Intermittent, Less than 6 Hours Per Day (ICD-10-PCS; principal; 2017-01-16)
DX: I13.2 Hypertensive heart and chronic kidney disease with heart failure and with stage 5 chronic kidney disease, or end stage renal disease (principal); I50.21 Acute systolic (congestive) heart failure; N18.6 End stage renal disease; L89.154 Pressure ulcer of sacral region, stage 4; L89.894 Pressure ulcer of other site, stage 4; I42.8 Other cardiomyopathies; E11.22 Type 2 diabetes mellitus with diabetic chronic kidney disease; J44.9 Chronic obstructive pulmonary disease, unspecified; I25.2 Old myocardial infarction; D64.9 Anemia, unspecified; E87.5 Hyperkalemia; E11.42 Type 2 diabetes mellitus with diabetic polyneuropathy; Z87.891 Personal history of nicotine dependence; Z99.2 Dependence on renal dialysis
CPT/HCPCS: 36415; 36430; 71010-TC; 78452-TC; 80048; 80053; 82565; 83690; 83735; 83880; 84100; 84484; 84520; 85025; 85027; 86704; 86706; 86708; 86803; 86850; 86900; 86901; 86922; 87340; 93005; 93010; 93017; 93306-TC; 94640; 99283-25; A9502; J2997; P9038; P9058

== ENCOUNTER 2017-02-28 14:24 | Inpatient (IN) | payer OTHER ==
--- NOTE | 2017-02-28 15:02 | PDOC ---
History of Present Illness - General Chief Complaint: Blood Transfusion Stated Complaint: Blood Transfusion Time Seen by Provider: 02/28/17 14:41 History Source: Patient Exam Limitations: No Limitations - History of Present Illness Initial Comments: 02/28/17 15:00 67y M hx ESRD (T,Th,Sa), chf on o2, copd, htn, mi, iddm presents with complaint of anemia. pt states he had dialysis yetserday and they called rehab noting that he was anemic. The pt states he otherwise is feeling well, denies any cp, abd pain, headache, dizziness, sob on exaertion (outside of his chronic sypmoms from chf), palpitations. pt denies any rectal bleeding/emelena, n/v. Pt states he has a history of anemia, but is unsure why, last had transfusion several months ago. pt denies any other recent illness including fever/chills, cough. pt has known sacaral ulcers that are healing Past History - Past Medical History Allergies/Adverse Reactions: Allergies Allergy/AdvReac Type Severity Reaction Status Date / Time No Known Allergies Allergy Verified 12/17/16 12:05 Home Medications: Ambulatory Orders Acetaminophen [Tylenol] 650 mg PO Q6H PRN 02/28/17 Albuterol 0.083% Nebulizer Myrna [Ventolin 0.083% Nebulizer Soln -] 1 neb NEB Q6H 02/28/17 Calcium Acetate [Phoslo -] 1,334 mg PO TIDCM 02/28/17 Collagenase Clostridium Hist. [Santyl] 1 applic TP DAILY 02/28/17 Finasteride [Proscar] 5 mg PO DAILY 02/28/17 Furosemide [Lasix] 80 mg PO DAILY 02/28/17 Insulin (Levemir) [Levemir Vial] 0 units SQ BID 02/28/17 Insulin Aspart [Novolog] 0 unit SQ ASDIR 02/28/17 Mag Hydrox/Al Hydrox/Simeth [Adrienne-Lanta Liquid] 10 ml PO QID 02/28/17 Metoprolol Succinate [Toprol Xl -] 25 mg PO BID 02/28/17 Mirtazapine [Remeron -] 15 mg PO DAILY 02/28/17 Sertraline HCl 50 mg PO DAILY 02/28/17 Vit A/Vitamin D3/E/Aloe V/Znox [Periguard Ointment] 15 gm TP DAILY 02/28/17 Vitamin B Comp W-C [Nephro-Rebecca -] 1 tablet PO DAILY 02/28/17 Anemia: Yes Asthma: Yes Cardiac Disorders: Yes (NE January 2016) COPD: Yes CHF: Yes Diabetes: Yes (IDDM) Dialysis: Yes ([facility]) Disorders: Yes HTN: Yes - Suicide/Smoking/Psychosocial Hx Smoking History: Former smoker Have you smoked in the past 12 months: No Number of Cigarettes Smoked Daily: 20 If you are a former smoker, when did you quit?: January 2016 Information on smoking cessation initiated: No 'Breaking Loose' booklet given: 08/12/16 Hx Alcohol Use: No Drug/Substance Use Hx: No Substance Use Type: None Hx Substance Use Treatment: No Review of Systems - Review of Systems Able to Perform ROS?: Yes Comments:: 02/28/17 16:08 Constitutional - no reported Fever, Chills, HEENT: no reported vision changes, sore throat Respiratory: no reported cough, sob, hemoptysis Cardiac: no reported chest pain, palpitations, light headedness, leg swelling Abd/GI: no reported abd pain, nausea, vomiting, blood per rectum, melena, diarrhea : no reported dysuria, frequency, discharge Musculskelatal - no reported back pain, joint swelling skin - no reported bruising, erythema, rash neurological: no reported headache, numbness, focal weakness, tingling, ataxia, hematologic: no reported anemia, easy bruising, easy bleeding *Physical Exam - Vital Signs Last Vital Signs Temp Pulse Resp BP Pulse Ox 97.6 F 90 16 109/55 100 02/28/17 14:25 02/28/17 14:25 02/28/17 14:25 02/28/17 14:25 02/28/17 14:25 - Physical Exam Comments: 02/28/17 16:09 GENERAL: The patient is awake, alert, and fully oriented, Nontoxic - in no acute distress. HEAD: Normocephalic, atraumatic. EYES: extraocular movements intact, sclera anicteric, pale conjuctiva ENT: Normal voice, Moist mucous membranes. NECK: Normal range of motion, supple LUNGS: portacath in R chest rose tis c/d/i nontender, non erythemadous. Breath sounds equal, clear to auscultation bilaterally. No wheezes, no rhonchi, no rales. HEART: Regular rate and rhythm, normal S1 and S2 without murmur, rub or gallop. ABDOMEN: Soft, nontender, normoactive bowel sounds. No guarding, no rebound. . No CVA tenderness RECTA: stool uyellow, guaiac pending EXTREMITIES: Normal range of motion, no edema. No clubbing or cyanosis. No cords, erythema, or tenderness. NEUROLOGICAL: No facial assymetry, Normal speech, PSYCH: Normal mood, normal affect. SKIN: +sacral ulcers that is well healed, skin intact, no erythema/induration/ ttp, +R hip ulcer that is almost all healed, no signs of infection Heart Score/ECG Review - ECG Impressions Comment:: 02/28/17 16:09 Twelve-lead EKG was performed and reviewed by me. There is normal sinus rhythm with a normal rate. Rate of 85 Incomplete left bundle-branch block LVH with repolarization ED Treatment Course - LABORATORY CBC & Chemistry Diagram: 02/28/17 15:30 02/28/17 15:30 Medical Decision Making - Medical Decision Making 02/28/17 16:42 pts labs noted for anemia to 6.5 will admit for transfusion will notify dr. turk/bebe 02/28/17 16:[address] spence known anemia agreed with admission [facility] with 1U due to hx of chf, ERSD Case discussed in detail with admitting physician including history, physical exam and ancillary studies. Admitting physician has assumed care for the patient, will follow all pending diagnostics and will complete the evaluation and treatment. *DC/Admit/Observation/Transfer Diagnosis at time of Disposition: End stage kidney disease Anemia Qualifiers: Anemia type: unspecified type Qualified Code(s): D64.9 - Anemia, unspecified - Discharge Dispostion Condition at time of disposition: Stable Admit: Yes - Referrals Referrals: Joy Turk MD [Primary Care Provider] - - Patient Instructions - Post Discharge Activity
[2017-02-28 15:49] LABS: INR 1.51 (0.82-1.09); PROTHROMBIN TIME (PATIENT) 17.1 SEC (9.98-11.88)
[2017-02-28 15:51] LABS: BASOPHIL 0.8 % (0-2.0); EOSINOPHIL 1.3 % (0-4.5); MCH 24.5 pg (25.7-33.7); MCHC 30.8 g/dl (32.0-35.9); MEAN CELL VOLUME 79.5 fl (80-96); MEAN PLT VOLUME 6.7 fl (7.5-11.1); NEUTROPHILS 56.9 % (42.8-82.8); PLATELET COUNT 326 K/MM3 (134-434); RDW 19.4 % (11.9-15.9); WHITE BLOOD COUNT 6.5 K/mm3 (4.0-10.0)
[2017-02-28 16:08] LABS: ALBUMIN 1.9 g/dl (3.4-5.0); ALK PHOS 88 U/L (45-117); ANION GAP 12 (8-16); BILIRUBIN,TOTAL 0.3 mg/dL (0.2-1.0); CALCIUM 8.4 mg/dL (8.5-10.1); CO2 23 mmol/L (21-32); GLUCOSE,RANDOM 220 mg/dL (74-106); SGOT/AST 5 U/L (15-37); SGPT/ALT 8 U/L (12-78)
[2017-02-28 16:44] LABS: ANISOCYTOSIS 1+; HYPOCHROMIA 1+; MICROCYTOSIS 1+; OVALOCYTE 1+; POLYCHROMASIA 1+
[2017-02-28] MEDS ORDERED: ONDANSETRON 4 MG/2 ML VIAL IVPUSH PRN (19:56)
--- NOTE | 2017-02-28 20:13 | HP ---
CHIEF COMPLAINT: PCP: Dr Anisha Plasencia HISTORY OF PRESENT ILLNESS: Patient complains of being told he was anemic while under going dialysis. Patient has h/o anemia and prior transfusions. Presented to day for transfusion. Denies SOB, Chest pain, dizziness, palpitations or syncope. ER course was notable for: (1) 1 Unit PRBC ordered Recent Travel: None PAST MEDICAL HISTORY: ESRD ( T, TH, S), systolic, diastolic CHF, COPD, HTN, OR PAST SURGICAL HISTORY: Social History: Smoking: Former Smoker, quit 01/2016 Alcohol: Denies Drugs: Denies Family History: Allergies No Known Allergies Allergy (Verified 12/17/16 12:05) HOME MEDICATIONS: Home Medications Medication Instructions Recorded Acetaminophen [Tylenol] 650 mg PO Q6H PRN 02/28/17 Albuterol 0.083% Nebulizer Myrna 1 neb NEB Q6H 02/28/17 [Ventolin 0.083% Nebulizer Soln -] Calcium Acetate [Phoslo -] 1,334 mg PO TIDCM 02/28/17 Collagenase Clostridium Hist. 1 applic TP DAILY 02/28/17 [Santyl] Finasteride [Proscar] 5 mg PO DAILY 02/28/17 Furosemide [Lasix] 80 mg PO DAILY 02/28/17 Insulin (Levemir) [Levemir Vial] 0 units SQ BID 02/28/17 Insulin Aspart [Novolog] 0 unit SQ ASDIR 02/28/17 Mag Hydrox/Al Hydrox/Simeth 10 ml PO QID 02/28/17 [Adrienne-Lanta Liquid] Metoprolol Succinate [Toprol Xl -] 25 mg PO BID 02/28/17 Mirtazapine [Remeron -] 15 mg PO DAILY 02/28/17 Sertraline HCl 50 mg PO DAILY 02/28/17 Vit A/Vitamin D3/E/Aloe V/Znox 15 gm TP DAILY 02/28/17 [Periguard Ointment] Vitamin B Comp W-C [Nephro-Rebecca -] 1 tablet PO DAILY 02/28/17 REVIEW OF SYSTEMS CONSTITUTIONAL: Absent: fever, chills, diaphoresis, generalized weakness, malaise, loss of appetite, weight change HEENT: Absent: rhinorrhea, nasal congestion, throat pain, throat swelling, difficulty swallowing, mouth swelling, ear pain, eye pain, visual changes CARDIOVASCULAR: Absent: chest pain, syncope, palpitations, irregular heart rate, lightheadedness , peripheral edema RESPIRATORY: Absent: cough, shortness of breath, dyspnea with exertion, orthopnea, wheezing, stridor, hemoptysis GASTROINTESTINAL: Absent: abdominal pain, abdominal distension, nausea, vomiting, diarrhea, constipation, melena, hematochezia GENITOURINARY: Absent: dysuria, frequency, urgency, hesitancy, hematuria, flank pain, genital pain MUSCULOSKELETAL: Absent: myalgia, arthralgia, joint swelling, back pain, neck pain SKIN: Absent: rash, itching, pallor HEMATOLOGIC/IMMUNOLOGIC: Absent: easy bleeding, easy bruising, lymphadenopathy, frequent infections ENDOCRINE: Absent: unexplained weight gain, unexplained weight loss, heat intolerance, cold intolerance NEUROLOGIC: Absent: headache, focal weakness or paresthesias, dizziness, unsteady gait, seizure, mental status changes, bladder or bowel incontinence PSYCHIATRIC: depression Absent: anxiety, suicidal or homicidal ideation, hallucinations. PHYSICAL EXAMINATION Vital Signs - 24 hr 02/28/17 02/28/17 14:25 19:09 Temperature 97.6 F 98.7 F Pulse Rate 90 Pulse Rate [ 101 H Right Radial] Respiratory 16 20 Rate Blood Pressure 109/55 Blood Pressure 123/63 [Left Arm] O2 Sat by Pulse 100 97 Oximetry (%) GENERAL: Awake, alert, and fully oriented, in no acute distress. Uncooperative. Pallor. HEAD: Normal with no signs of trauma. EYES: Pupils equal, round and reactive to light, extraocular movements intact, sclera anicteric, conjunctiva clear. No lid lag. EARS, NOSE, THROAT: Ears normal, nares patent, oropharynx clear without exudates. Moist mucous membranes. NECK: Normal range of motion, supple without lymphadenopathy, JVD, or masses. LUNGS: Right anterior thorax permacath, Breath sounds equal, clear to auscultation bilaterally. No wheezes, and no crackles. No accessory muscle use. HEART: Regular rate and rhythm, normal S1 and S2 without murmur, rub or gallop. ABDOMEN: Soft, nontender, not distended, normoactive bowel sounds, no guarding, no rebound, no masses. No hepatomegaly or splenomegaly. MUSCULOSKELETAL: Normal range of motion at all joints. No bony deformities or tenderness. No CVA tenderness. Generalized muscle atrophy. UPPER EXTREMITIES: Generalized muscle atrophy.2+ pulses, warm, well-perfused. No cyanosis. No clubbing. No peripheral edema. LOWER EXTREMITIES:Generalized muscle atrophy. 2+ pulses, warm, well-perfused. No calf tenderness. No peripheral edema. NEUROLOGICAL: Cranial nerves II-XII intact. Normal speech. Normal gait. PSYCHIATRIC: Cooperative. Good eye contact. Appropriate mood and affect. SKIN: Sacral ulcers and Right hip ulcer, inferior penile lesion noted, normal capillary refill. Laboratory Results - last 24 hr 02/28/17 02/28/17 02/28/17 15:30 15:30 15:30 WBC 6.5 D RBC 2.64 L D Hgb 6.5 L* D Hct 21.0 L D MCV 79.5 L D MCH 24.5 L MCHC 30.8 L RDW 19.4 H D Plt Count 326 D MPV 6.7 L D Neutrophils % 56.9 D Lymphocytes % 30.2 D Monocytes % 10.8 H Eosinophils % 1.3 Basophils % 0.8 Hypochromia 1+ Polychromasia 1+ Anisocytosis 1+ Microcytosis 1+ Ovalocytes 1+ PT with INR INR Sodium 132 L Potassium 5.1 Chloride 97 L Carbon Dioxide 23 Anion Gap 12 BUN 48 H Creatinine 5.0 H Creat Clearance w eGFR 11.63 Random Glucose 220 H Calcium 8.4 L Total Bilirubin 0.3 D AST 5 L D ALT 8 L Alkaline Phosphatase 88 Total Protein 7.0 Albumin 1.9 L Stool Occult Blood Anti-A Titer Blood Type B POSITIVE Antibody Screen Negative Crossmatch 02/28/17 02/28/17 02/28/17 15:30 16:00 17:15 WBC RBC Hgb Hct MCV MCH MCHC RDW Plt Count MPV Neutrophils % Lymphocytes % Monocytes % Eosinophils % Basophils % Hypochromia Polychromasia Anisocytosis Microcytosis Ovalocytes PT with INR 17.10 H INR 1.51 H Sodium Potassium Chloride Carbon Dioxide Anion Gap BUN Creatinine Creat Clearance w eGFR Random Glucose Calcium Total Bilirubin AST ALT Alkaline Phosphatase Total Protein Albumin Stool Occult Blood Negative Anti-A Titer Cancelled Blood Type Cancelled Antibody Screen Crossmatch See Detail ASSESSMENT/PLAN: Acute on chronic anemia Transfuse 2 units PRBCs one unit overnight with 40mg lasix after and first unit and 2nd unit to be given during HD in am. DM2 continue Levemir 10units BID, RISS ACHS. 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 DVT prophylaxis - SCDs Diet: Renal, Cardiac, ADA
[2017-02-28] MEDS: INSULIN DETEMIR 100 UNITS/ML MDV SQ SCH ×2 (22:12→22:37)
[2017-02-28] MEDS: MAG HYDROX/AL HYDROX/SIMETH 30 ML UNIT-DOSE CUP PO SCH (22:23)
[2017-02-28] MEDS: FUROSEMIDE 40 MG/4 ML INJECTABLE VIAL IVPUSH SCH ×2 (22:23)
[2017-02-28] MEDS: METOPROLOL SUCCINATE 25 MG TAB.SR.24H (FP) PO SCH (22:24)
[2017-02-28] MEDS: INSULIN SLIDING SCALE (NOVOLOG) 1 VIAL SQ SCH (22:24)
[2017-02-28] MEDS: ALBUTEROL SO4 0.083% IH SOL 2.5 MG/3 ML VIAL.NEB. NEB SCH (23:05)
[2017-03-01] MEDS: ALBUTEROL SO4 0.083% IH SOL 2.5 MG/3 ML VIAL.NEB. NEB SCH ×4 (02:35→22:10)
[2017-03-01 04:56] VITALS: BMI 24.4
[2017-03-01 06:46] LABS: MCH 25.3 pg (25.7-33.7); MCHC 31.5 g/dl (32.0-35.9); MEAN CELL VOLUME 80.3 fl (80-96); MEAN PLT VOLUME 6.8 fl (7.5-11.1); PLATELET COUNT 321 K/MM3 (134-434); RDW 18.6 % (11.9-15.9); WHITE BLOOD COUNT 7.5 K/mm3 (4.0-10.0)
[2017-03-01] MEDS: FUROSEMIDE 40 MG/4 ML INJECTABLE VIAL IVPUSH SCH ×3 (06:55→15:22)
[2017-03-01] MEDS: INSULIN SLIDING SCALE (NOVOLOG) 1 VIAL SQ SCH ×4 (06:58→21:22)
[2017-03-01 07:12] LABS: ALBUMIN 1.8 g/dl (3.4-5.0); ANION GAP 13 (8-16); CALCIUM 8.1 mg/dL (8.5-10.1); CO2 21 mmol/L (21-32); GLUCOSE,RANDOM 155 mg/dL (74-106)
[2017-03-01 07:17] LABS: ALK PHOS 82 U/L (45-117); BILIRUBIN,TOTAL 0.6 mg/dL (0.2-1.0); CREATININE 5.3 mg/dL (0.7-1.3); SGPT/ALT 7 U/L (12-78); TOT PROT 6.6 g/dl (6.4-8.2)
[2017-03-01 07:22] LABS: SGOT/AST 4 U/L (15-37)
[2017-03-01] MEDS: CALCIUM ACETATE 667 MG CAPSULE (FP) PO SCH ×3 (08:31→17:17)
[2017-03-01 10:05] LABS: FERRITIN 1975.482 ng/ml (16.4-293.9)
[2017-03-01] MEDS: MAG HYDROX/AL HYDROX/SIMETH 30 ML UNIT-DOSE CUP PO SCH ×4 (10:20→21:16)
[2017-03-01] MEDS: INSULIN DETEMIR 100 UNITS/ML MDV SQ SCH ×2 (10:20→21:22)
--- NOTE | 2017-03-01 10:50 | CON.NEP ---
Consult Consult Specialty:: Nephrology Referred by:: Hospitalist Reason for Consultation:: ESRD on HD with Anemia - History of Present Illness Chief Complaint: Anemia History of Present Illness: This is a 67 year old Gentleman with PMhx of ESRD on HD ([facility]), Hypertension, IDDM, Sacral Decubitis ulcers, Chronic anemia who was sent from [facility] with Hgb of 6.5. Pt without any acute complaints. Denies any dark stools or overt bleeding. Pt has been getting Arasesp at outpatient HD. NO CP, sob, abd pain, Dizziness, N/V/D. for HD today. Last dialysis was . Pt is non-complainant with dialysis. - History Source History Provided By: Patient Limitations to Obtaining History: No Limitations - Past Medical History OPERATIONS SPECIALIST: Yes: Peripheral Neuropathy Cardio/Vascular: Yes: HTN Pulmonary: Yes: COPD Renal/: Yes: Renal Failure, Renal Inusuff, Hemodialysis Endocrine: Yes: Diabetes Mellitus - Alcohol/Substance Use Hx Alcohol Use: No - Smoking History Smoking history: Former smoker Have you smoked in the past 12 months: No Aproximately how many cigarettes per day: 20 If you are a former smoker, when did you quit?: January 2016 - Social History Usual Living Arrangement: With Significant Other ADL: Independent Home Medications - Allergies Allergies/Adverse Reactions: Allergies Allergy/AdvReac Type Severity Reaction Status Date / Time No Known Allergies Allergy Verified 12/17/16 12:05 - Home Medications Home Medications: Ambulatory Orders Acetaminophen [Tylenol] 650 mg PO Q6H PRN 02/28/17 Albuterol 0.083% Nebulizer Myrna [Ventolin 0.083% Nebulizer Soln -] 1 neb NEB Q6H 02/28/17 Calcium Acetate [Phoslo -] 1,334 mg PO TIDCM 02/28/17 Collagenase Clostridium Hist. [Santyl] 1 applic TP DAILY 02/28/17 Finasteride [Proscar] 5 mg PO DAILY 02/28/17 Furosemide [Lasix] 80 mg PO DAILY 02/28/17 Insulin (Levemir) [Levemir Vial] 0 units SQ BID 02/28/17 Insulin Aspart [Novolog] 0 unit SQ ASDIR 02/28/17 Mag Hydrox/Al Hydrox/Simeth [Adrienne-Lanta Liquid] 10 ml PO QID 02/28/17 Metoprolol Succinate [Toprol Xl -] 25 mg PO BID 02/28/17 Mirtazapine [Remeron -] 15 mg PO DAILY 02/28/17 Sertraline HCl 50 mg PO DAILY 02/28/17 Vit A/Vitamin D3/E/Aloe V/Znox [Periguard Ointment] 15 gm TP DAILY 02/28/17 Vitamin B Comp W-C [Nephro-Rebecca -] 1 tablet PO DAILY 02/28/17 Family Disease History - Family Disease History Family History: Unremarkable Review of Systems - Review of Systems Constitutional: reports: No Symptoms Eyes: reports: No Symptoms HENT: reports: No Symptoms Neck: reports: No Symptoms Cardiovascular: reports: No Symptoms Respiratory: reports: No Symptoms Genitourinary: reports: No Symptoms Musculoskeletal: reports: No Symptoms Integumentary: reports: No Symptoms Neurological: reports: No Symptoms Nephrology Consult - Height Height: 6 ft - Weight Weight: 81.647 kg - BMI Body Mass Index (BMI): 24.4 - Lab Results CBC,BMP: CBC, BMP 03/01/17 05:00 03/01/17 05:00 Anion Gap: Anion Gap Anion Gap 13 (8-16) 03/01/17 05:00 - Physical Examination Vital Signs: Vital Signs Temperature 98.8 F 03/01/17 10:00 Pulse Rate 96 H 03/01/17 10:00 Respiratory Rate 18 03/01/17 10:00 Blood Pressure 108/60 03/01/17 10:00 O2 Sat by Pulse Oximetry (%) 97 02/28/17 19:09 Constitutional: Yes: Well Nourished, No Distress, Calm Eyes: Yes: Conjunctiva Clear HENT: Yes: Atraumatic Neck: Yes: Supple Cardiovascular: Yes: Regular Rate and Rhythm Respiratory: Yes: Regular, CTA Bilaterally Gastrointestinal: Yes: Normal Bowel Sounds, Soft. No: Tenderness Edema: No Neurological: Yes: Alert, Oriented Problem List - Problems (1) Anemia Code(s): D64.9 - ANEMIA, UNSPECIFIED Qualifiers: Anemia type: unspecified type Qualified Code(s): D64.9 - Anemia, unspecified (2) End stage kidney disease Code(s): N18.6 - END STAGE RENAL DISEASE (3) Diabetes 1.5, managed as type 1 Code(s): E13.9 - OTHER SPECIFIED DIABETES MELLITUS WITHOUT COMPLICATIONS (4) HTN (hypertension) Code(s): I10 - ESSENTIAL (PRIMARY) HYPERTENSION Assessment/Plan 67 year old Gentleman with PMhx of ESRD on HD ([facility]), Hypertension, IDDM, Sacral Decubitis ulcers, Chronic anemia who was sent from [facility] with Hgb of 6.5. #Acute on Chronic Anemia Stool occult blood negative Check iron studies last aranesp dose was this past Friday, no further WILY this admission to get 2 additional PRBC with HD today s/p 1 unit last night #ESRD on HD HD today as inpatient Renal diet #Mild Hyperkalemia low potassium diet expect improvement with HD #Hypertension BP low marginal not on antihypertensives now continue Lasix as needed to maintain good urine output Thank you Will follow Dominick Vanegas DO
--- NOTE | 2017-03-01 13:25 | PN ---
Progress Note, Physician Chief Complaint: Events noted Stool guaic negative No distress no complaints pt wants to be left alone receiving dialysis today-- along with 2 units PRBC received one unit yesterday - Current Medication List Current Medications: Active Medications Acetaminophen (Tylenol -) 650 mg PO Q6H PRN PRN Reason: FEVER OR PAIN Al Hydroxide/Mg Hydroxide (Mylanta Oral Suspension -) 10 ml PO QID [facility] Last Admin: 03/01/17 10:20 Dose: 10 ml Albuterol Sulfate (Ventolin 0.083% Nebulizer Soln -) 1 amp NEB Q6H [facility] Last Admin: 03/01/17 07:18 Dose: Not Given Calcium Acetate (Phoslo -) 1,334 mg PO TIDCM [facility] Last Admin: 03/01/17 12:26 Dose: Not Given Collagenase (Santyl -) 1 applic TP DAILY [facility] Finasteride (Proscar -) 5 mg PO DAILY [facility] Furosemide (Lasix Injection -) 40 mg IVPUSH BID@0600,1400 [facility] Last Admin: 03/01/17 06:55 Dose: 40 mg Furosemide (Lasix Injection -) 40 mg IVPUSH DAILY [facility] Last Admin: 02/28/17 22:23 Dose: Not Given Insulin Aspart (Novolog Vial Sliding Scale -) 0 vial SQ ACHS [facility] PRN Reason: Protocol Last Admin: 03/01/17 12:49 Dose: Not Given Insulin Detemir (Levemir Vial) 10 units SQ BID [facility] Last Admin: 03/01/17 10:20 Dose: 10 units Metoprolol Succinate (Toprol Xl -) 25 mg PO BID [facility] Last Admin: 02/28/17 22:24 Dose: 25 mg Mirtazapine (Remeron -) 15 mg PO DAILY [facility] Ondansetron HCl (Zofran Injection) 4 mg IVPUSH Q6H PRN PRN Reason: NAUSEA Sertraline HCl (Zoloft -) 50 mg PO DAILY [facility] - Objective Vital Signs: Vital Signs Temperature 98.8 F 03/01/17 10:00 Pulse Rate 80 03/01/17 12:30 Respiratory Rate 18 03/01/17 12:30 Blood Pressure 112/69 03/01/17 12:30 O2 Sat by Pulse Oximetry (%) 97 03/01/17 09:00 Constitutional: Yes: No Distress, Calm Cardiovascular: Yes: Regular Rate and Rhythm Respiratory: Yes: Diminished Gastrointestinal: Yes: Normal Bowel Sounds, Soft. No: Distention, Tenderness Edema: No Labs: CBC, BMP 03/01/17 05:00 03/01/17 05:00 INR, PTT INR 1.51 (0.82-1.09) H 02/28/17 15:30 Problem List - Problems (1) Anemia Code(s): D64.9 - ANEMIA, UNSPECIFIED Qualifiers: Anemia type: unspecified type Qualified Code(s): D64.9 - Anemia, unspecified (2) End stage kidney disease Code(s): N18.6 - END STAGE RENAL DISEASE (3) COPD (chronic obstructive pulmonary disease) Code(s): J44.9 - CHRONIC OBSTRUCTIVE PULMONARY DISEASE, UNSPECIFIED (4) Diabetes 1.5, managed as type 1 Code(s): E13.9 - OTHER SPECIFIED DIABETES MELLITUS WITHOUT COMPLICATIONS Assessment/Plan PLAN transfuse as ordered check CBC tomorrow HD per Renal Tele uneventful EKG noted dc potline monitor continue meds wound care
[2017-03-01] MEDS: MIRTAZAPINE 15 MG TABLET (FP) PO SCH (15:22)
[2017-03-01] MEDS: METOPROLOL SUCCINATE 25 MG TAB.SR.24H (FP) PO SCH ×2 (15:23→21:16)
[2017-03-01] MEDS: FINASTERIDE 5 MG TABLET (FP) PO SCH (15:23)
[2017-03-01] MEDS: SERTRALINE HCL 50 MG TABLET (FP) PO SCH (15:23)
[2017-03-01] MEDS: COLLAGENASE CLOSTRIDIUM HIST. 30 GRAMS TUBE TP SCH (15:31)
[2017-03-01] MEDS: ACETAMINOPHEN 325 MG TABLET (FP) PO PRN (21:16)
[2017-03-02] MEDS: ALBUTEROL SO4 0.083% IH SOL 2.5 MG/3 ML VIAL.NEB. NEB SCH ×3 (02:05→20:55)
[2017-03-02] MEDS: INSULIN SLIDING SCALE (NOVOLOG) 1 VIAL SQ SCH ×4 (06:36→21:31)
[2017-03-02 06:37] LABS: SERUM IRON 36 ug/dL (38-169); TOTAL IRON BINDING CAPACITY 77 ug/dL (250-450); UIBC 41 ug/dL (111-343)
[2017-03-02] MEDS: FUROSEMIDE 40 MG/4 ML INJECTABLE VIAL IVPUSH SCH ×3 (06:37→15:10)
[2017-03-02 07:23] LABS: BASOPHIL 0.6 % (0-2.0); EOSINOPHIL 0.8 % (0-4.5); MCH 26.1 pg (25.7-33.7); MCHC 31.9 g/dl (32.0-35.9); MEAN CELL VOLUME 81.8 fl (80-96); MEAN PLT VOLUME 6.6 fl (7.5-11.1); NEUTROPHILS 54.4 % (42.8-82.8); PLATELET COUNT 351 K/MM3 (134-434); WHITE BLOOD COUNT 8.7 K/mm3 (4.0-10.0)
[2017-03-02] MEDS: CALCIUM ACETATE 667 MG CAPSULE (FP) PO SCH ×3 (08:39→17:29)
--- NOTE | 2017-03-02 09:33 | PN ---
Progress Note, Physician Chief Complaint: Events noted s/p 2 units PRBC had temp last night awake no distress no complaints refusing endoscopic procedures at this time - Current Medication List Current Medications: Active Medications Acetaminophen (Tylenol -) 650 mg PO Q6H PRN PRN Reason: FEVER OR PAIN Last Admin: 03/01/17 21:16 Dose: 650 mg Al Hydroxide/Mg Hydroxide (Mylanta Oral Suspension -) 10 ml PO QID [facility] Last Admin: 03/01/17 21:16 Dose: 10 ml Albuterol Sulfate (Ventolin 0.083% Nebulizer Soln -) 1 amp NEB Q6H [facility] Last Admin: 03/02/17 07:21 Dose: 1 amp Calcium Acetate (Phoslo -) 1,334 mg PO TIDCM [facility] Last Admin: 03/02/17 08:39 Dose: 1,334 mg Collagenase (Santyl -) 1 applic TP DAILY [facility] Last Admin: 03/01/17 15:31 Dose: 1 applic Finasteride (Proscar -) 5 mg PO DAILY [facility] Last Admin: 03/01/17 15:23 Dose: 5 mg Furosemide (Lasix Injection -) 40 mg IVPUSH BID@0600,1400 [facility] Last Admin: 03/02/17 06:37 Dose: 40 mg Furosemide (Lasix Injection -) 40 mg IVPUSH DAILY [facility] Last Admin: 03/01/17 14:02 Dose: Not Given Insulin Aspart (Novolog Vial Sliding Scale -) 0 vial SQ ACHS [facility] PRN Reason: Protocol Last Admin: 03/02/17 06:36 Dose: Not Given Insulin Detemir (Levemir Vial) 10 units SQ BID [facility] Last Admin: 03/01/17 21:22 Dose: Not Given Metoprolol Succinate (Toprol Xl -) 25 mg PO BID [facility] Last Admin: 03/01/17 21:16 Dose: 25 mg Mirtazapine (Remeron -) 15 mg PO DAILY [facility] Last Admin: 03/01/17 15:22 Dose: 15 mg Ondansetron HCl (Zofran Injection) 4 mg IVPUSH Q6H PRN PRN Reason: NAUSEA Sertraline HCl (Zoloft -) 50 mg PO DAILY [facility] Last Admin: 03/01/17 15:23 Dose: 50 mg - Objective Vital Signs: Vital Signs Temperature 99.4 F 03/02/17 05:37 Pulse Rate 89 03/02/17 05:37 Respiratory Rate 20 03/02/17 05:37 Blood Pressure 103/58 03/02/17 05:37 O2 Sat by Pulse Oximetry (%) 97 03/01/17 09:00 Constitutional: Yes: No Distress Cardiovascular: Yes: Regular Rate and Rhythm Respiratory: Yes: Diminished Gastrointestinal: Yes: Normal Bowel Sounds, Soft. No: Abdomen, Obese, Distention, Tenderness Edema: No Psychiatric: Yes: Alert, Oriented Labs: CBC, BMP 03/02/17 05:00 03/01/17 05:00 INR, PTT INR 1.51 (0.82-1.09) H 02/28/17 15:30 Problem List - Problems (1) Anemia Code(s): D64.9 - ANEMIA, UNSPECIFIED Qualifiers: Anemia type: unspecified type Qualified Code(s): D64.9 - Anemia, unspecified (2) End stage kidney disease Code(s): N18.6 - END STAGE RENAL DISEASE (3) COPD (chronic obstructive pulmonary disease) Code(s): J44.9 - CHRONIC OBSTRUCTIVE PULMONARY DISEASE, UNSPECIFIED (4) Diabetes 1.5, managed as type 1 Code(s): E13.9 - OTHER SPECIFIED DIABETES MELLITUS WITHOUT COMPLICATIONS Assessment/Plan PLAN s/p 3 units PRBC total temp elevated last night -- likely transfusion related blood cultures repeated-- pending initial blood cultures were negative CXR no infiltrates continue meds wound care if remains afebrile and cultures are negative, dc plan to [place] tomorrow
[2017-03-02] MEDS: FINASTERIDE 5 MG TABLET (FP) PO SCH (09:59)
[2017-03-02] MEDS: METOPROLOL SUCCINATE 25 MG TAB.SR.24H (FP) PO SCH ×2 (09:59→21:42)
[2017-03-02] MEDS: MAG HYDROX/AL HYDROX/SIMETH 30 ML UNIT-DOSE CUP PO SCH ×4 (10:03→21:42)
[2017-03-02] MEDS: MIRTAZAPINE 15 MG TABLET (FP) PO SCH (10:03)
[2017-03-02] MEDS: SERTRALINE HCL 50 MG TABLET (FP) PO SCH (10:03)
[2017-03-02] MEDS: COLLAGENASE CLOSTRIDIUM HIST. 30 GRAMS TUBE TP SCH (11:00)
[2017-03-02] MEDS: INSULIN DETEMIR 100 UNITS/ML MDV SQ SCH ×2 (12:31→21:31)
[2017-03-02] MEDS: ACETAMINOPHEN 325 MG TABLET (FP) PO PRN (17:33)
[2017-03-03] MEDS: ALBUTEROL SO4 0.083% IH SOL 2.5 MG/3 ML VIAL.NEB. NEB SCH ×2 (02:10→11:45)
[2017-03-03] MEDS: INSULIN SLIDING SCALE (NOVOLOG) 1 VIAL SQ SCH ×2 (06:01→12:53)
[2017-03-03] MEDS: FUROSEMIDE 40 MG/4 ML INJECTABLE VIAL IVPUSH SCH ×3 (06:01→14:04)
[2017-03-03 07:56] LABS: MCH 26.5 pg (25.7-33.7); MCHC 32.1 g/dl (32.0-35.9); MEAN CELL VOLUME 82.3 fl (80-96); MEAN PLT VOLUME 6.7 fl (7.5-11.1); PLATELET COUNT 325 K/MM3 (134-434); RDW 18.3 % (11.9-15.9); WHITE BLOOD COUNT 8.4 K/mm3 (4.0-10.0)
[2017-03-03] MEDS: CALCIUM ACETATE 667 MG CAPSULE (FP) PO SCH ×2 (08:00→12:53)
[2017-03-03 08:27] LABS: ANION GAP 7 (8-16); CALCIUM 7.8 mg/dL (8.5-10.1); CO2 28 mmol/L (21-32); CREATININE 4.4 mg/dL (0.7-1.3); GLUCOSE,RANDOM 132 mg/dL (74-106); PHOSPHOROUS 2.7 mg/dL (2.5-4.9)
--- NOTE | 2017-03-03 10:28 | DS ---
Physical Examination Vital Signs: Vital Signs Temperature 98.8 F 03/03/17 07:10 Pulse Rate 82 03/03/17 09:45 Respiratory Rate 18 03/03/17 09:45 Blood Pressure 97/67 03/03/17 09:45 O2 Sat by Pulse Oximetry (%) 100 03/02/17 21:00 Constitutional: Yes: No Distress, Calm Cardiovascular: Yes: Regular Rate and Rhythm Respiratory: Yes: Diminished Gastrointestinal: Yes: Normal Bowel Sounds, Soft. No: Distention, Tenderness Edema: No Labs: CBC, BMP 03/03/17 07:00 03/03/17 07:00 Discharge Summary Reason For Visit: ANEMIA Current Active Problems Anemia (Chronic) End stage kidney disease (Chronic) Hospital Course: Pt admitted for anemia Refusing endoscopic procedures no GI bleeding STool guaic negative Received total 3 units PRBC had a temp after 3 unit-- cultures negative CXR -- no infiltrate Chest CT-- pleural effusion HCT acceptable Stable for dc to [facility] Condition: Stable - Instructions Referrals: Joy Turk MD [Primary Care Provider] - Disposition: INTERMEDIATE FACILITY - Home Medications Comprehensive Discharge Medication List: Ambulatory Orders Acetaminophen [Tylenol] 650 mg PO Q6H PRN 02/28/17 Albuterol 0.083% Nebulizer Myrna [Ventolin 0.083% Nebulizer Soln -] 1 neb NEB Q6H 02/28/17 Calcium Acetate [Phoslo -] 1,334 mg PO TIDCM 02/28/17 Collagenase Clostridium Hist. [Santyl -] 1 applic TP DAILY 02/28/17 Finasteride [Proscar] 5 mg PO DAILY 02/28/17 Furosemide [Lasix] 80 mg PO DAILY 02/28/17 Insulin (Levemir) [Levemir Vial] 0 units SQ BID 02/28/17 Insulin Aspart [Novolog] 0 unit SQ ASDIR 02/28/17 Mag Hydrox/Al Hydrox/Simeth [Adrienne-Lanta Liquid] 10 ml PO QID 02/28/17 Metoprolol Succinate [Toprol XL -] 25 mg PO BID 02/28/17 Mirtazapine [Remeron -] 15 mg PO DAILY 02/28/17 Sertraline HCl 50 mg PO DAILY 02/28/17 Vit A/Vitamin D3/E/Aloe V/Znox [Periguard Ointment] 15 gm TP DAILY 02/28/17 Vitamin B Comp W-C [Nephro-Rebecca -] 1 tablet PO DAILY 02/28/17
--- NOTE | 2017-03-03 10:39 | PN ---
Progress Note (short form) - Note Progress Note: Renal Follow up for ESRD on HD Pt seen and examined during dialysis awake and alert BP 95/50, goal UF is 2L pt with 30 mintes remaining in Tx Vital Signs Temperature 98.8 F 03/03/17 07:10 Pulse Rate 82 03/03/17 09:45 Respiratory Rate 18 03/03/17 09:45 Blood Pressure 97/67 03/03/17 09:45 O2 Sat by Pulse Oximetry (%) 100 03/02/17 21:00 Intake & Output 02/28/17 03/01/17 03/02/17 03/03/17 23:59 23:59 23:59 23:59 Intake Total 350 360 580 Balance 350 360 580 Weight 81.647 kg 81.647 kg NAD awake and alert RRR CTA anterior exam Soft NT.ND Abd CBC, BMP 03/03/17 07:00 03/03/17 07:00 Current Medications Acetaminophen (Tylenol -) 650 mg PO Q6H PRN PRN Reason: FEVER OR PAIN Last Admin: 03/02/17 17:33 Dose: 650 mg Al Hydroxide/Mg Hydroxide (Mylanta Oral Suspension -) 10 ml PO QID [facility] Last Admin: 03/02/17 21:42 Dose: 10 ml Albuterol Sulfate (Ventolin 0.083% Nebulizer Soln -) 1 amp NEB Q6H [facility] Last Admin: 03/03/17 02:10 Dose: Not Given Calcium Acetate (Phoslo -) 1,334 mg PO TIDCM [facility] Last Admin: 03/03/17 08:00 Dose: Not Given Collagenase (Santyl -) 1 applic TP DAILY [facility] Last Admin: 03/02/17 11:00 Dose: 1 applic Finasteride (Proscar -) 5 mg PO DAILY [facility] Last Admin: 03/02/17 09:59 Dose: 5 mg Furosemide (Lasix Injection -) 40 mg IVPUSH BID@0600,1400 [facility] Last Admin: 03/03/17 06:01 Dose: 40 mg Furosemide (Lasix Injection -) 40 mg IVPUSH DAILY [facility] Last Admin: 03/02/17 10:00 Dose: Not Given Insulin Aspart (Novolog Vial Sliding Scale -) 0 vial SQ ACHS AKOSUA PRN Reason: Protocol Last Admin: 03/03/17 06:01 Dose: Not Given Insulin Detemir (Levemir Vial) 10 units SQ BID [facility] Last Admin: 03/02/17 21:31 Dose: Not Given Metoprolol Succinate (Toprol Xl -) 25 mg PO BID [facility] Last Admin: 03/02/17 21:42 Dose: 25 mg Mirtazapine (Remeron -) 15 mg PO DAILY [facility] Last Admin: 03/02/17 10:03 Dose: Not Given Ondansetron HCl (Zofran Injection) 4 mg IVPUSH Q6H PRN PRN Reason: NAUSEA Sertraline HCl (Zoloft -) 50 mg PO DAILY [facility] Last Admin: 03/02/17 10:03 Dose: Not Given A/P 67 year old Gentleman with PMhx of ESRD on HD ([facility]), Hypertension, IDDM, Sacral Decubitis ulcers, Chronic anemia who was sent from [facility] HD with Hgb of 6.5. #Acute on Chronic Anemia Stool occult blood negative Iron saturation is 47%, Ferritin high s/p 3 unit total in prbc transfusion pt likely with some degree of WILY resistance give chronic inflamation (sacal decubitis ulcer) no abd or flank tenderness to suggest RP hematoma Pt is refusing GI work up per PMD #ESRD on HD tolerating HD well #Mild Hyperkalemia low potassium diet expect improvement with HD #Hypertension BP low marginal not on antihypertensives now continue Lasix as needed to maintain good urine output Thank you Will follow Problem List - Problems (1) Anemia Code(s): D64.9 - ANEMIA, UNSPECIFIED Qualifiers: Anemia type: unspecified type Qualified Code(s): D64.9 - Anemia, unspecified (2) End stage kidney disease Code(s): N18.6 - END STAGE RENAL DISEASE (3) Diabetes 1.5, managed as type 1 Code(s): E13.9 - OTHER SPECIFIED DIABETES MELLITUS WITHOUT COMPLICATIONS (4) HTN (hypertension) Code(s): I10 - ESSENTIAL (PRIMARY) HYPERTENSION
--- NOTE | 2017-03-03 11:42 | EKG ---
Test Reason : Blood Pressure : / mmHG Vent. Rate : 085 BPM Atrial Rate : 085 BPM P-R Int : 136 ms QRS Dur : 110 ms QT Int : 376 ms P-R-T Axes : 073 050 106 degrees QTc Int : 447 ms SINUS RHYTHM WITH PREMATURE SUPRAVENTRICULAR COMPLEXES AND WITH OCCASIONAL PREMATURE VENTRICULAR COMPLEXES POSSIBLE LEFT ATRIAL ENLARGEMENT INCOMPLETE LEFT BUNDLE BRANCH BLOCK LEFT VENTRICULAR HYPERTROPHY WITH REPOLARIZATION ABNORMALITY ABNORMAL ECG WHEN COMPARED WITH ECG OF 16-JAN-2017 10:40, PREMATURE VENTRICULAR COMPLEXES ARE NOW PRESENT PREMATURE SUPRAVENTRICULAR COMPLEXES ARE NOW PRESENT T WAVE INVERSION NO LONGER EVIDENT IN ANTERIOR LEADS Confirmed by ALEC STALLINGS MD ([id number]) on 03/03/2017 11:41:56 AM Referred By: Confirmed By:ALEC STALLINGS MD
[2017-03-03] MEDS: MAG HYDROX/AL HYDROX/SIMETH 30 ML UNIT-DOSE CUP PO SCH ×2 (12:51→13:02)
[2017-03-03] MEDS: INSULIN DETEMIR 100 UNITS/ML MDV SQ SCH (12:51)
[2017-03-03] MEDS: COLLAGENASE CLOSTRIDIUM HIST. 30 GRAMS TUBE TP SCH (12:52)
[2017-03-03] MEDS: FINASTERIDE 5 MG TABLET (FP) PO SCH (12:52)
[2017-03-03] MEDS: METOPROLOL SUCCINATE 25 MG TAB.SR.24H (FP) PO SCH (12:54)
[2017-03-03] MEDS: SERTRALINE HCL 50 MG TABLET (FP) PO SCH (12:58)
[2017-03-03] MEDS: MIRTAZAPINE 15 MG TABLET (FP) PO SCH (12:59)
[2017-03-03 13:03] VITALS: BP 105/60; PULSE 90; TEMP 98
== END 2017-03-03 14:51 | DRG 811 ==
LOC: JER 14:24 → JERBED 16:43 → J4W 20:47
PROVIDERS: ADMIT Internal Medicine; ATTEND Internal Medicine
PROC: 30233N1 Transfusion of Nonautologous Red Blood Cells into Peripheral Vein, Percutaneous Approach (ICD-10-PCS; principal; 2017-02-28)
PROC: 5A1D70Z Performance of Urinary Filtration, Intermittent, Less than 6 Hours Per Day (ICD-10-PCS; 2017-03-01)
DX: D64.9 Anemia, unspecified (principal); N18.6 End stage renal disease; L89.154 Pressure ulcer of sacral region, stage 4; I13.2 Hypertensive heart and chronic kidney disease with heart failure and with stage 5 chronic kidney disease, or end stage renal disease; I50.42 Chronic combined systolic (congestive) and diastolic (congestive) heart failure; I25.2 Old myocardial infarction; E87.5 Hyperkalemia; E11.22 Type 2 diabetes mellitus with diabetic chronic kidney disease; Z99.2 Dependence on renal dialysis; Z87.891 Personal history of nicotine dependence; Z79.4 Long term (current) use of insulin; I44.7 Left bundle-branch block, unspecified; J44.9 Chronic obstructive pulmonary disease, unspecified; F32.9 Major depressive disorder, single episode, unspecified
CPT/HCPCS: 36415; 36430; 71010-TC; 71250-TC; 80048; 80053; 82272; 82728; 83540; 83550; 84100; 85025; 85027; 85610; 86704; 86706; 86708; 86803; 86850; 86900; 86901; 86922; 87040; 87070; 87186; 87205; 87340; 93005; 93010; 94640; 99283-25; P9038; P9058

== ENCOUNTER 2017-03-08 14:23 | Inpatient (IN) | payer OTHER ==
--- NOTE | 2017-03-08 14:59 | PDOC ---
History of Present Illness - History of Present Illness Initial Comments: 03/08/17 15:03 Mr. Becker is a 67 yo male with pmh of ESRD on HD (T/R/S at [facility]), HTN, IDDM, Chronic anemia with Sacral Decubitis ulcers who last received dialysis Friday and subsequently pulled out his cath. 03/08/17 18:20 <Brendan Nam - Last Filed: 03/08/17 18:20> <Oralia Donahue - Last Filed: 03/08/17 21:06> - General Chief Complaint: Dialysis Shunt Problem Stated Complaint: DIALYSIS PORT Time Seen by Provider: 03/08/17 14:44 Past History - Past Medical History Anemia: Yes Asthma: Yes Cardiac Disorders: Yes (AR January 2016) COPD: Yes CHF: Yes Diabetes: Yes (IDDM) Dialysis: Yes ([facility]) Disorders: Yes HTN: Yes - Suicide/Smoking/Psychosocial Hx Smoking History: Former smoker Have you smoked in the past 12 months: No Number of Cigarettes Smoked Daily: 20 If you are a former smoker, when did you quit?: January 2016 'Breaking Loose' booklet given: 08/12/16 Hx Alcohol Use: No Drug/Substance Use Hx: No Substance Use Type: None Hx Substance Use Treatment: No <Brendan Nam - Last Filed: 03/08/17 18:20> <Oralia Donahue - Last Filed: 03/08/17 21:06> - Past Medical History Allergies/Adverse Reactions: Allergies Allergy/AdvReac Type Severity Reaction Status Date / Time No Known Allergies Allergy Verified 03/08/17 14:36 Home Medications: Ambulatory Orders Acetaminophen [Tylenol] 650 mg PO Q6H PRN 02/28/17 Albuterol 0.083% Nebulizer Myrna [Ventolin 0.083% Nebulizer Soln -] 1 neb NEB Q6H 02/28/17 Calcium Acetate [Phoslo -] 1,334 mg PO TIDCM 02/28/17 Collagenase Clostridium Hist. [Santyl -] 1 applic TP DAILY 02/28/17 Finasteride [Proscar] 5 mg PO DAILY 02/28/17 Furosemide [Lasix] 80 mg PO DAILY 02/28/17 Insulin (Levemir) [Levemir Vial] 10 units SQ BID 02/28/17 Insulin Aspart [Novolog] 0 unit SQ ASDIR 02/28/17 Mag Hydrox/Al Hydrox/Simeth [Adrienne-Lanta Liquid] 10 ml PO QID 02/28/17 Metoprolol Succinate [Toprol XL -] 25 mg PO BID 02/28/17 Mirtazapine [Remeron -] 15 mg PO DAILY 02/28/17 Sertraline HCl 50 mg PO DAILY 02/28/17 Vit A/Vitamin D3/E/Aloe V/Znox [Periguard Ointment] 15 gm TP DAILY 02/28/17 Vitamin B Comp W-C [Nephro-Rebecca -] 1 tablet PO DAILY 02/28/17 Review of Systems - Review of Systems Comments:: 03/08/17 19:28 Unable to obtain <Brendan Nam - Last Filed: 03/08/17 18:20> *Physical Exam - Physical Exam Comments: 03/08/17 19:29 GENERAL: Awake, alert, and oriented - paitent more responsive after lowering of Fever as described. HEAD: No signs of trauma, normocephalic, atraumatic EYES: PERRLA, EOMI, sclera anicteric, conjunctiva clear ENT: Auricles normal inspection, hearing grossly normal, nares patent, oropharynx clear without exudates. Moist mucosa NECK: Normal ROM, supple, no lymphadenopathy, JVD, or masses LUNGS: No distress, speaks full sentences, clear to auscultation bilaterally HEART: Regular rate and rhythm, normal S1 and S2, no murmurs, rubs or gallops, peripheral pulses normal and equal bilaterally. ABDOMEN: Soft, nontender, normoactive bowel sounds. No guarding, no rebound. No masses EXTREMITIES: +Grade 4 decubitus ulcers noted to sacrum x3. Wound culture obtained. NEUROLOGICAL: Cranial nerves II through XII grossly intact. Normal speech, no focal sensorimotor deficits SKIN: Warm, Dry, normal turgor, no rashes or lesions noted. 03/08/17 19:30 <Brendan Nam - Last Filed: 03/08/17 18:20> - Vital Signs Last Vital Signs Temp Pulse Resp BP Pulse Ox 99.9 F H 106 H 20 95/58 97 03/08/17 17:57 03/08/17 17:57 03/08/17 17:57 03/08/17 17:57 03/08/17 17:57 <Oralia Donahue - Last Filed: 03/08/17 21:06> ED Treatment Course - LABORATORY CBC & Chemistry Diagram: 03/08/17 15:05 03/08/17 16:10 <Brendan Nam - Last Filed: 03/08/17 18:20> - LABORATORY CBC & Chemistry Diagram: 03/08/17 15:05 03/08/17 16:10 - ADDITIONAL ORDERS Additional order review: Laboratory Results 03/08/17 03/08/17 03/08/17 17:50 16:10 15:05 PT with INR INR PTT (Actin FS) Sodium 132 L Potassium 6.1 H* Chloride 99 Carbon Dioxide 22 D Anion Gap 11 BUN 83 H D Creatinine 6.8 H D Creat Clearance w eGFR 8.16 Random Glucose 187 H D Lactic Acid 2.3 H* Calcium 7.6 L Total Bilirubin 0.4 D AST 7 L D ALT 9 L D Alkaline Phosphatase 91 Creatine Kinase 36 L Troponin I < 0.02 D Total Protein 6.4 Albumin 1.6 L Urine Color Yellow Urine Appearance Turbid Urine pH 7.0 D Ur Specific [place] 1.012 Urine Protein 3+ H Urine Glucose (UA) Negative Urine Ketones Negative Urine Blood 2+ H Urine Nitrite Negative Urine Bilirubin Negative Urine Urobilinogen Negative Urine WBC (Auto) 664 Urine RBC (Auto) 13 Ur Epithelial Cells Rare Hyaline Casts 15 Blood Type Antibody Screen 03/08/17 03/08/17 03/08/17 15:05 15:05 15:05 PT with INR 16.60 H INR 1.47 H PTT (Actin FS) 34.4 Sodium Cancelled Potassium Cancelled Chloride Cancelled Carbon Dioxide Cancelled Anion Gap Cancelled BUN Cancelled Creatinine Cancelled Creat Clearance w eGFR Cancelled Random Glucose Cancelled Lactic Acid Calcium Cancelled Total Bilirubin Cancelled AST Cancelled ALT Cancelled Alkaline Phosphatase Cancelled Creatine Kinase Cancelled Troponin I Cancelled Total Protein Cancelled Albumin Cancelled Urine Color Urine Appearance Urine pH Ur Specific [place] Urine Protein Urine Glucose (UA) Urine Ketones Urine Blood Urine Nitrite Urine Bilirubin Urine Urobilinogen Urine WBC (Auto) Urine RBC (Auto) Ur Epithelial Cells Hyaline Casts Blood Type Antibody Screen 03/08/17 15:05 PT with INR INR PTT (Actin FS) Sodium Potassium Chloride Carbon Dioxide Anion Gap BUN Creatinine Creat Clearance w eGFR Random Glucose Lactic Acid Calcium Total Bilirubin AST ALT Alkaline Phosphatase Creatine Kinase Troponin I Total Protein Albumin Urine Color Urine Appearance Urine pH Ur Specific [place] Urine Protein Urine Glucose (UA) Urine Ketones Urine Blood Urine Nitrite Urine Bilirubin Urine Urobilinogen Urine WBC (Auto) Urine RBC (Auto) Ur Epithelial Cells Hyaline Casts Blood Type B POSITIVE Antibody Screen Negative 03/08/17 15:05 RBC 3.29 L MCV 83.9 MCHC 31.3 L RDW 19.1 H MPV 7.6 D Neutrophils % 55.4 Lymphocytes % 30.3 Monocytes % 12.2 H Eosinophils % 1.4 Basophils % 0.7 - Medications Given in the ED: ED Medications Discontinued Medications Generic Name Dose Route Start Last Admin Trade Name Brianq PRN Reason Stop Dose Admin Acetaminophen 1,000 mg 03/08/17 15:26 03/08/17 15:40 Ofirmev Injection - IVPB 03/08/17 15:27 1,000 mg ONCE ONE Administration Albuterol Sulfate 1 amp 03/08/17 18:08 03/08/17 18:30 Ventolin 0.083% Nebulizer Soln - NEB 03/08/17 18:09 1 amp ONCE ONE Administration Dextrose 25 gm 03/08/17 18:17 03/08/17 18:30 D50w (Vial) - IVPUSH 03/08/17 18:18 25 gm NOW ONE Administration Vancomycin HCl 1,000 mg/ 250 mls @ 250 mls/hr 03/08/17 16:15 03/08/17 18:04 Dextrose IVPB 03/08/17 17:14 250 mls/hr ONCE ONE Administration Protocol Piperacillin/Tazobactam/Dextrose 50 mls @ 100 mls/hr 03/08/17 16:09 03/08/17 16:37 Zosyn 3.375gm Ivpb (Premix) IVPB 03/08/17 16:38 100 mls/hr ONCE ONE Administration Protocol Insulin Human Regular 4 units 03/08/17 18:06 03/08/17 18:30 Novolin R Vial *For Ivpush Or Iv Drip Only* IVPUSH 03/08/17 18:07 4 units ONCE ONE Administration Lorazepam 1 mg 03/08/17 18:40 03/08/17 19:23 Ativan Injection - IVPUSH 03/08/17 18:41 1 mg ONCE ONE Administration Sodium Bicarbonate 50 meq 03/08/17 18:07 03/08/17 18:30 Sodium Bicarbonate 8.4% - IV 03/08/17 18:08 50 meq ONCE ONE Administration <Oralia Donahue - Last Filed: 03/08/17 21:06> Medical Decision Making - Medical Decision Making 03/08/17 19:24 Patient presented for placement of catheter for dialysis but was found to have temperature over 102 at presentation. Septic workup begun, vanc/zosyn started empirically. Impressive UTI noted as below. Dr. Chichi Garcia consulted; would like to perform dialysis as soon as possible for Potassium 6.1. Lani Left Femoral cath put in with Dr. Antony. Oncoming team will coordinate dialysis setup. <Brendan Nam - Last Filed: 03/08/17 18:20> *DC/Admit/Observation/Transfer <Brendan Nam - Last Filed: 03/08/17 18:20> - Discharge Dispostion Admit: Yes <Oralia Donahue - Last Filed: 03/08/17 21:06> Diagnosis at time of Disposition: Sepsis secondary to UTI, End stage kidney disease, Hyperkalemia - Discharge Dispostion Condition at time of disposition: Guarded
[2017-03-08 15:16] LABS: BASOPHIL 0.7 % (0-2.0); EOSINOPHIL 1.4 % (0-4.5); MCH 26.3 pg (25.7-33.7); MCHC 31.3 g/dl (32.0-35.9); MEAN CELL VOLUME 83.9 fl (80-96); MEAN PLT VOLUME 7.6 fl (7.5-11.1); NEUTROPHILS 55.4 % (42.8-82.8); PLATELET COUNT 418 K/MM3 (134-434); RDW 19.1 % (11.9-15.9); WHITE BLOOD COUNT 7.4 K/mm3 (4.0-10.0)
--- NOTE | 2017-03-08 15:22 | PDOC ---
Attending Attestation - Resident Resident Name: Brendan Nam - ED Attending Attestation I have performed the following: I have examined & evaluated the patient, The case was reviewed & discussed with the resident, I agree w/resident's findings & plan, Exceptions are as noted - HPI HPI: 67 yo M history ESRD on HD - Physicial Exam PE: GENERAL: Awake, alert, and oriented to person and place. Appears chronically ill. HEAD: No signs of trauma EYES: PERRLA, EOMI, sclera anicteric, conjunctiva clear ENT: Auricles normal inspection, hearing grossly normal, nares patent, oropharynx clear without exudates. Moist mucosa NECK: Normal ROM, supple, no lymphadenopathy, JVD, or masses LUNGS: Breath sounds equal, clear to auscultation bilaterally. No wheezes, and no crackles HEART: Regular rate and rhythm, normal S1 and S2, no murmurs, rubs or gallops ABDOMEN: Soft, nontender, normoactive bowel sounds. No guarding, no rebound. No masses EXTREMITIES: +Contractures to lower extremities, no edema. No clubbing or cyanosis. No cords, erythema, or tenderness NEUROLOGICAL: Cranial nerves II through XII grossly intact. Normal speech. Motor and sensation intact. Gait not tested due to confusion. SKIN: Warm, Dry, normal turgor. +Sacral decubitus ulcers. - Medical Decision Making Pt sent by Dr. Perez after he removed his permacath. He has not had dialysis for 5 days. He is confused and has fever. Will start AMS/sepsis workup. Empiric abx. Will discuss with Dr. Perez once the K results.
[2017-03-08] MEDS ORDERED: ACETAMINOPHEN 1000 MG/100 ML VIAL (NON FORMULARY) IVPB ONE (15:26)
[2017-03-08 15:31] LABS: INR 1.47 (0.82-1.09); PROTHROMBIN TIME (PATIENT) 16.6 SEC (9.98-11.88)
[2017-03-08 15:34] LABS: ACTIVATED PTT 34.4 SECONDS (26.9-34.4)
[2017-03-08] MEDS ORDERED: PIPERACILLIN/TAZOB 3.375 GM 50 ML IVPB ONE (16:09)
[2017-03-08] MEDS ORDERED: VANCOMYCIN 1,000 MG in DEXTROSE 5%-WATER - 250 ML IVPB ONE (16:15)
[2017-03-08] MEDS ORDERED: VANCOMYCIN 1 GRAM (PRE-DOCKED) 1,000 MG/250 ML BAG IVPB ONE (16:24)
[2017-03-08] MEDS ORDERED: PIPERACILLIN/TAZOB 3.375 GM 3.375 GM/50 ML BAG IVPB ONE (16:24)
[2017-03-08 16:58] LABS: ALBUMIN 1.6 g/dl (3.4-5.0); ANION GAP 11 (8-16); BILIRUBIN,TOTAL 0.4 mg/dL (0.2-1.0); CALCIUM 7.6 mg/dL (8.5-10.1); CO2 22 mmol/L (21-32); CREATININE 6.8 mg/dL (0.7-1.3); GLUCOSE,RANDOM 187 mg/dL (74-106); SGOT/AST 7 U/L (15-37); SGPT/ALT 9 U/L (12-78); TOT PROT 6.4 g/dl (6.4-8.2)
[2017-03-08 17:02] LABS: ALK PHOS 91 U/L (45-117); CPK 36 IU/L (39-308); TROPONIN I < 0.02 ng/ml (0.00-0.05)
[2017-03-08 17:59] LABS: URINE APPEARANCE TURBID; URINE BILIRUBIN NEGATIVE (NEGATIVE); URINE BLOOD 2+ (NEGATIVE); URINE COLOR YELLOW; URINE GLUCOSE (UA) NEGATIVE (NEGATIVE); URINE KETONE NEGATIVE (NEGATIVE); URINE NITRITE NEGATIVE (NEGATIVE); URINE UROBILINOGEN NEGATIVE mg/dL (0.2-1.0)
[2017-03-08] MEDS ORDERED: INSULIN REGULAR HUMAN 100 UNITS/ML *VIAL IVPUSH ONE (18:06)
[2017-03-08] MEDS ORDERED: SODIUM BICARBONATE 8.4% 50 MEQ/50 ML VIAL IV ONE (18:07)
[2017-03-08] MEDS ORDERED: ALBUTEROL SO4 0.083% IH SOL 2.5 MG/3 ML VIAL.NEB. NEB ONE ×3 (18:08→18:28)
[2017-03-08 18:09] LABS: URINE PROTEIN 3+ (NEGATIVE)
[2017-03-08 18:10] LABS: URINE HYALINE CAST 15 /lpf; URINE RBC 13 /hpf (0-3); URINE WBC 664 /hpf (3-5)
[2017-03-08] MEDS ORDERED: DEXTROSE 50%-WATER 25 GM/50 ML DISP.SYRIN ONE (18:15)
[2017-03-08] MEDS ORDERED: SODIUM BICARBONATE 8.4% - 50 ML ONE (18:15)
[2017-03-08] MEDS ORDERED: INSULIN REGULAR HUMAN 100 UNITS/ML *VIAL ONE (18:16)
[2017-03-08] MEDS ORDERED: DEXTROSE 50%-WATER - 25 GM/50 ML VIAL IVPUSH ONE (18:17)
[2017-03-08] MEDS ORDERED: LORazepam 2 MG/ML SDV VIAL ONE (18:45)
--- NOTE | 2017-03-08 19:29 | PDOC ---
*Physical Exam - Vital Signs Patient's care signed out to me by Dr. Nam. Pt is a 67 YOM with h/o ESRD on HD whose dialysis catheter was accidentally pulled out, found with urosepsis in the ER. Covered with eva/Lani Desai catheter placed, plan is to call Dr. Spence so patient can be dialyzed. Last Vital Signs Temp Pulse Resp BP Pulse Ox 99.9 F H 106 H 20 95/58 97 03/08/17 17:57 03/08/17 17:57 03/08/17 17:57 03/08/17 17:57 03/08/17 17:57 ED Treatment Course - LABORATORY CBC & Chemistry Diagram: 03/09/17 05:10 03/09/17 05:10 - ADDITIONAL ORDERS Additional order review: Laboratory Results 03/08/17 03/08/17 03/08/17 17:50 16:10 15:05 PT with INR INR PTT (Actin FS) Sodium 132 L Potassium 6.1 H* Chloride 99 Carbon Dioxide 22 D Anion Gap 11 BUN 83 H D Creatinine 6.8 H D Creat Clearance w eGFR 8.16 Random Glucose 187 H D Lactic Acid 2.3 H* Calcium 7.6 L Total Bilirubin 0.4 D AST 7 L D ALT 9 L D Alkaline Phosphatase 91 Creatine Kinase 36 L Troponin I < 0.02 D Total Protein 6.4 Albumin 1.6 L Urine Color Yellow Urine Appearance Turbid Urine pH 7.0 D Ur Specific [place] 1.012 Urine Protein 3+ H Urine Glucose (UA) Negative Urine Ketones Negative Urine Blood 2+ H Urine Nitrite Negative Urine Bilirubin Negative Urine Urobilinogen Negative Urine WBC (Auto) 664 Urine RBC (Auto) 13 Ur Epithelial Cells Rare Hyaline Casts 15 Blood Type Antibody Screen 03/08/17 03/08/17 03/08/17 15:05 15:05 15:05 PT with INR 16.60 H INR 1.47 H PTT (Actin FS) 34.4 Sodium Cancelled Potassium Cancelled Chloride Cancelled Carbon Dioxide Cancelled Anion Gap Cancelled BUN Cancelled Creatinine Cancelled Creat Clearance w eGFR Cancelled Random Glucose Cancelled Lactic Acid Calcium Cancelled Total Bilirubin Cancelled AST Cancelled ALT Cancelled Alkaline Phosphatase Cancelled Creatine Kinase Cancelled Troponin I Cancelled Total Protein Cancelled Albumin Cancelled Urine Color Urine Appearance Urine pH Ur Specific [place] Urine Protein Urine Glucose (UA) Urine Ketones Urine Blood Urine Nitrite Urine Bilirubin Urine Urobilinogen Urine WBC (Auto) Urine RBC (Auto) Ur Epithelial Cells Hyaline Casts Blood Type Antibody Screen 03/08/17 15:05 PT with INR INR PTT (Actin FS) Sodium Potassium Chloride Carbon Dioxide Anion Gap BUN Creatinine Creat Clearance w eGFR Random Glucose Lactic Acid Calcium Total Bilirubin AST ALT Alkaline Phosphatase Creatine Kinase Troponin I Total Protein Albumin Urine Color Urine Appearance Urine pH Ur Specific [place] Urine Protein Urine Glucose (UA) Urine Ketones Urine Blood Urine Nitrite Urine Bilirubin Urine Urobilinogen Urine WBC (Auto) Urine RBC (Auto) Ur Epithelial Cells Hyaline Casts Blood Type B POSITIVE Antibody Screen Negative 03/08/17 15:05 RBC 3.29 L MCV 83.9 MCHC 31.3 L RDW 19.1 H MPV 7.6 D Neutrophils % 55.4 Lymphocytes % 30.3 Monocytes % 12.2 H Eosinophils % 1.4 Basophils % 0.7 - Medications Given in the ED: ED Medications Discontinued Medications Generic Name Dose Route Start Last Admin Trade Name Freq PRN Reason Stop Dose Admin Acetaminophen 1,000 mg 03/08/17 15:26 03/08/17 15:40 Ofirmev Injection - IVPB 03/08/17 15:27 1,000 mg ONCE ONE Administration Albuterol Sulfate 1 amp 03/08/17 18:08 03/08/17 18:30 Ventolin 0.083% Nebulizer Soln - NEB 03/08/17 18:09 1 amp ONCE ONE Administration Dextrose 25 gm 03/08/17 18:17 03/08/17 18:30 D50w (Vial) - IVPUSH 03/08/17 18:18 25 gm NOW ONE Administration Vancomycin HCl 1,000 mg/ 250 mls @ 250 mls/hr 03/08/17 16:15 03/08/17 18:04 Dextrose IVPB 03/08/17 17:14 250 mls/hr ONCE ONE Administration Protocol Piperacillin/Tazobactam/Dextrose 50 mls @ 100 mls/hr 03/08/17 16:09 03/08/17 16:37 Zosyn 3.375gm Ivpb (Premix) IVPB 03/08/17 16:38 100 mls/hr ONCE ONE Administration Protocol Insulin Human Regular 4 units 03/08/17 18:06 03/08/17 18:30 Novolin R Vial *For Ivpush Or Iv Drip Only* IVPUSH 03/08/17 18:07 4 units ONCE ONE Administration Lorazepam 1 mg 03/08/17 18:40 03/08/17 19:23 Ativan Injection - IVPUSH 03/08/17 18:41 1 mg ONCE ONE Administration Sodium Bicarbonate 50 meq 03/08/17 18:07 03/08/17 18:30 Sodium Bicarbonate 8.4% - IV 03/08/17 18:08 50 meq ONCE ONE Administration Medical Decision Making - Medical Decision Making 03/08/17 20:[address] Turk's office sales donor recruitment representative, asked her to notify Dr. Turk Pt will be admitted to hospitalist. Malihacristal has been microblogged for admission. 03/08/17 21:08 Spoke with [facility] who will see the patient now. Admission order placed to Tele under Dr. Turk. Patient is brought to the floor for HD and admission. *DC/Admit/Observation/Transfer Diagnosis at time of Disposition: Sepsis secondary to UTI, End stage kidney disease, Hyperkalemia - Discharge Dispostion Condition at time of disposition: Guarded Admit: Yes - Referrals - Patient Instructions - Post Discharge Activity
--- NOTE | 2017-03-08 19:31 | CONSULT ---
Consult Consult Specialty:: general surgery Referred by:: andres sewell Reason for Consultation:: Dialysis catheter placement - History of Present Illness Chief Complaint: tunneled catheter came out History of Present Illness: 67 yo male PMH HTN, DM, CHF, COPD, ESRD on HD whose dialysis catheter was accidentally pulled out today. He is scheduled for HD tonight and now being treated for a urosepsis in the ER. He is on IV antibiotics, Otherwise a poor historian. We were asked to assess for femoral shiley catheter placement. 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 Cardio/Vascular: Yes: HTN Pulmonary: Yes: COPD Renal/: Yes: Renal Failure, Renal Inusuff, Hemodialysis Endocrine: Yes: Diabetes Mellitus - Alcohol/Substance Use Hx Alcohol Use: No - Smoking History Smoking history: Former smoker Have you smoked in the past 12 months: No Aproximately how many cigarettes per day: 20 If you are a former smoker, when did you quit?: January 2016 - Social History Usual Living Arrangement: With Significant Other ADL: Independent Place of : [facility] History of Recent Travel: No Home Medications - Allergies Allergies/Adverse Reactions: Allergies Allergy/AdvReac Type Severity Reaction Status Date / Time No Known Allergies Allergy Verified 03/08/17 14:36 - Home Medications Home Medications: Ambulatory Orders Acetaminophen [Tylenol] 650 mg PO Q6H PRN 02/28/17 Albuterol 0.083% Nebulizer Myrna [Ventolin 0.083% Nebulizer Soln -] 1 neb NEB Q6H 02/28/17 Calcium Acetate [Phoslo -] 1,334 mg PO TIDCM 02/28/17 Collagenase Clostridium Hist. [Santyl -] 1 applic TP DAILY 02/28/17 Finasteride [Proscar] 5 mg PO DAILY 02/28/17 Furosemide [Lasix] 80 mg PO DAILY 02/28/17 Insulin (Levemir) [Levemir Vial] 0 units SQ BID 02/28/17 Insulin Aspart [Novolog] 0 unit SQ ASDIR 02/28/17 Mag Hydrox/Al Hydrox/Simeth [Adrienne-Lanta Liquid] 10 ml PO QID 02/28/17 Metoprolol Succinate [Toprol XL -] 25 mg PO BID 02/28/17 Mirtazapine [Remeron -] 15 mg PO DAILY 02/28/17 Sertraline HCl 50 mg PO DAILY 02/28/17 Vit A/Vitamin D3/E/Aloe V/Znox [Periguard Ointment] 15 gm TP DAILY 02/28/17 Vitamin B Comp W-C [Nephro-Rebecca -] 1 tablet PO DAILY 02/28/17 Review of Systems - Review of Systems Constitutional: denies: Chills, Fever Eyes: denies: Blurred Vision, Recent Change in Vision HENT: reports: Other (poor dentition). denies: Hearing Loss Neck: reports: Stiffness. denies: Swollen Glands Cardiovascular: denies: Chest Pain, Palpitations Respiratory: denies: Cough, SOB Gastrointestinal: denies: Abdominal Pain, Dysphagia Genitourinary: denies: Hematuria, Testicular Pain Musculoskeletal: reports: Back Pain, Joint Pain Integumentary: reports: Wound (sacral pressure ulcers). denies: Rash Endocrine: denies: Unexplained Weight Gain, Unexplained Weight Loss Psychiatric: denies: Anxiety, Depression Physical Exam Vital Signs: Vital Signs Temperature 99.9 F H 03/08/17 17:57 Pulse Rate 106 H 03/08/17 17:57 Respiratory Rate 20 03/08/17 17:57 Blood Pressure 95/58 03/08/17 17:57 O2 Sat by Pulse Oximetry (%) 97 03/08/17 17:57 Vital Signs Period Temp Pulse Resp BP Sys/Vogt Pulse Ox Last 24 Hr 99.9 F-102.2 F 106-110 20-24 91-107/58-87 97-99 Constitutional: Yes: Calm, Cachectic, Mild Distress Eyes: Yes: Conjunctiva Clear, EOM Intact HENT: Yes: Atraumatic, Normocephalic Neck: Yes: Supple, Trachea Midline Cardiovascular: Yes: Regular Rate and Rhythm, S1, S2 Respiratory: Yes: Regular, CTA Bilaterally. No: Wheezes Gastrointestinal: Yes: Normal Bowel Sounds, Soft Renal/: No: CVA Tenderness - Left, CVA Tenderness - Right Extremities: No: Cool, Cyanosis Edema: No Peripheral Pulses WNL: Yes (2+ bilateral femoral and DP) Integumentary: Yes: Pressure Ulcer (sarcal and ischium) Neurological: Yes: Alert, Oriented ...Motor Strength: WNL, LLE, RLE Psychiatric: Yes: Alert, Oriented Labs: CBC, BMP 03/08/17 15:05 03/08/17 16:10 INR, PTT INR 1.47 (0.82-1.09) H 03/08/17 15:05 Abnormal Lab Results 03/08/17 03/08/17 03/08/17 15:05 15:05 15:05 RBC 3.29 L Hgb 8.7 L Hct 27.6 L MCHC 31.3 L RDW 19.1 H Monocytes % 12.2 H PT with INR 16.60 H INR 1.47 H Sodium Potassium BUN Creatinine Random Glucose Lactic Acid 2.3 H* Calcium AST ALT Creatine Kinase Albumin Urine Protein Urine Blood 03/08/17 03/08/17 16:10 17:50 RBC Hgb Hct MCHC RDW Monocytes % PT with INR INR Sodium 132 L Potassium 6.1 H* BUN 83 H D Creatinine 6.8 H D Random Glucose 187 H D Lactic Acid Calcium 7.6 L AST 7 L D ALT 9 L D Creatine Kinase 36 L Albumin 1.6 L Urine Protein 3+ H Urine Blood 2+ H Problem List - Problems (1) End stage kidney disease Assessment/Plan: 67yo male MMP including ESRD on HD, tunneled catheter accidentally pulled out, Temporary left femoral shiley placed inthe ED. Informed Consent obtained for placement of femoral hemodialysis catheter. Risks benefits and alternatives were discussed. See procedure note. Will follow if patient is admitted to check the site. We are happy to place a permacath during this admission if needed. Thank you for the opportunity to participate in the care of this patient. Code(s): N18.6 - END STAGE RENAL DISEASE (2) Acute on chronic renal failure Assessment/Plan: planned HD tonight Code(s): N17.9 - ACUTE KIDNEY FAILURE, UNSPECIFIED; N18.9 - CHRONIC KIDNEY DISEASE, UNSPECIFIED (3) CHF (congestive heart failure) Code(s): I50.9 - HEART FAILURE, UNSPECIFIED (4) COPD (chronic obstructive pulmonary disease) Code(s): J44.9 - CHRONIC OBSTRUCTIVE PULMONARY DISEASE, UNSPECIFIED (5) Sacral decubitus ulcer, stage III Code(s): L89.153 - PRESSURE ULCER OF SACRAL REGION, STAGE 3
--- NOTE | 2017-03-08 19:42 | PROC ---
Central Line Insertion Indication: Other (Hemodialysis) Risks and Benefits Explained: Yes Consent on Chart: Yes Central Line: Dialysis Cath, Dual Lumen Anesthesia: 1% Lidocaine Sterile Technique: Yes Ultrasound Guided Assistance: Yes Position: Left Femoral Sterile Dressing Applied: Yes Remarks: left femoral 12Fr dual lumen hemodilysis catheter placed using ultrasound localization and modified seldinger technique.
--- NOTE | 2017-03-08 21:07 | HP ---
CHIEF COMPLAINT: Dialysis Catheter Dislodged PCP: Dr. Joy Turk HISTORY OF PRESENT ILLNESS: This is a 67 y/o man with a PMHx of ESRD( HD-,, ), HTN, IDDM, Chronic, Anemia, Sacral Ulcers. Who presents to the ED for Permacath replacement, after patient pulled it out. Patient is uncooperative and a poor historian unable to obtain HPI. Per ED records: Pt sent by Dr. Chichi Plasencia after he removed his permacath. He has not had dialysis for 5 days. He is confused and has fever. Patient denies cough, CP, AP, N/V/D, constipation ER course was notable for: (1) Sepsis Criteria Met- T Max 102.2, P- 110, Lactic Acid 2.3, BUN 83 (2) K- 6.1 (3) UA- +3 Leukocyte esterase, 644 WBC Recent Travel: None PAST MEDICAL HISTORY: ESRD HTN SD (01/2016) IDDM Chronic Anemia Decubitus Ulcers- Stage 4 PAST SURGICAL HISTORY: Permacath Placement Social History: Smoking: Former Alcohol: None Drugs: None Family History: Unable to Obtain Allergies No Known Allergies Allergy (Verified 03/08/17 14:36) HOME MEDICATIONS: Home Medications Medication Instructions Recorded Acetaminophen [Tylenol] 650 mg PO Q6H PRN 02/28/17 Albuterol 0.083% Nebulizer Myrna 1 neb NEB Q6H 02/28/17 [Ventolin 0.083% Nebulizer Soln -] Calcium Acetate [Phoslo -] 1,334 mg PO TIDCM 02/28/17 Collagenase Clostridium Hist. 1 applic TP DAILY 02/28/17 [Santyl -] Finasteride [Proscar] 5 mg PO DAILY 02/28/17 Furosemide [Lasix] 80 mg PO DAILY 02/28/17 Insulin (Levemir) [Levemir Vial] 10 units SQ BID 02/28/17 Insulin Aspart [Novolog] 0 unit SQ ASDIR 02/28/17 Mag Hydrox/Al Hydrox/Simeth 10 ml PO QID 02/28/17 [Adrienne-Lanta Liquid] Metoprolol Succinate [Toprol XL -] 25 mg PO BID 02/28/17 Mirtazapine [Remeron -] 15 mg PO DAILY 02/28/17 Sertraline HCl 50 mg PO DAILY 02/28/17 Vit A/Vitamin D3/E/Aloe V/Znox 15 gm TP DAILY 02/28/17 [Periguard Ointment] Vitamin B Comp W-C [Nephro-Rebecca -] 1 tablet PO DAILY 02/28/17 REVIEW OF SYSTEMS CONSTITUTIONAL: fever Absent: chills, diaphoresis, malaise, generalized weakness, loss of appetite, weight change HEENT: Absent: rhinorrhea, nasal congestion, throat pain, throat swelling, difficulty swallowing, mouth swelling, ear pain, eye pain, visual changes CARDIOVASCULAR: Absent: chest pain, syncope, palpitations, irregular heart rate, lightheadedness , peripheral edema RESPIRATORY: Absent: cough, shortness of breath, dyspnea with exertion, orthopnea, wheezing, stridor, hemoptysis GASTROINTESTINAL: Absent: abdominal pain, abdominal distension, nausea, vomiting, diarrhea, constipation, melena, hematochezia GENITOURINARY: Absent: dysuria, frequency, urgency, hesitancy, hematuria, flank pain, genital pain MUSCULOSKELETAL: Absent: myalgia, arthralgia, joint swelling, back pain, neck pain SKIN: Absent: rash, itching, pallor HEMATOLOGIC/IMMUNOLOGIC: Absent: easy bleeding, easy bruising, lymphadenopathy, frequent infections ENDOCRINE: Absent: unexplained weight gain, unexplained weight loss, heat intolerance, cold intolerance NEUROLOGIC: mental status changes Absent: headache, focal weakness or paresthesias, dizziness, unsteady gait, seizure, bladder or bowel incontinence PSYCHIATRIC: Absent: anxiety, depression, suicidal or homicidal ideation, hallucinations. PHYSICAL EXAMINATION Vital Signs - 24 hr 03/08/17 03/08/17 03/08/17 14:36 15:06 16:38 Temperature 102.2 F H 102.2 F H Pulse Rate 110 H Pulse Rate [ Apical] Respiratory 24 24 Rate Blood Pressure 107/87 Blood Pressure 91/58 [Right Arm] O2 Sat by Pulse 99 98 Oximetry (%) 03/08/17 17:57 Temperature 99.9 F H Pulse Rate Pulse Rate [ 106 H Apical] Respiratory 20 Rate Blood Pressure Blood Pressure 95/58 [Right Arm] O2 Sat by Pulse 97 Oximetry (%) GENERAL: Awake, alert x1 with confusion noted, in no acute distress. HEAD: Normal with no signs of trauma. EYES: Pupils equal, round and reactive to light, extraocular movements intact, sclera anicteric, conjunctiva clear. No lid lag. EARS, NOSE, THROAT: Ears normal, nares patent, oropharynx clear without exudates. Dry mucous membranes. NECK: Normal range of motion, supple without lymphadenopathy, JVD, or masses. LUNGS: Breath sounds diminished at bases . No wheezes, and no crackles. No accessory muscle use. HEART: Sinus Tachycardia, regular rhythm, normal S1 and S2 without murmur, rub or gallop. ABDOMEN: Soft, nontender, not distended, normoactive bowel sounds, no guarding, no rebound, no masses. No hepatomegaly or splenomegaly. MUSCULOSKELETAL: Normal range of motion at all joints. No bony deformities or tenderness. No CVA tenderness. UPPER EXTREMITIES: 2+ pulses, warm, well-perfused. No cyanosis. No clubbing. No peripheral edema. LOWER EXTREMITIES: 2+ pulses, warm, well-perfused. No calf tenderness. No peripheral edema. Shiley Cath to L-femoral NEUROLOGICAL: Cranial nerves II-XII intact. Normal speech. Gait not observed. PSYCHIATRIC: Uncooperative. Limited eye contact. Agitated mood and affect. SKIN: Warm, dry, normal tugor, no rash. +Grade 4 decubitus ulcers noted to sacrum x3. Poor cap refill Laboratory Results - last 24 hr 03/08/17 03/08/17 03/08/17 15:05 15:05 15:05 WBC 7.4 RBC 3.29 L Hgb 8.7 L Hct 27.6 L MCV 83.9 MCH 26.3 MCHC 31.3 L RDW 19.1 H Plt Count 418 D MPV 7.6 D Neutrophils % 55.4 Lymphocytes % 30.3 Monocytes % 12.2 H Eosinophils % 1.4 Basophils % 0.7 PT with INR INR PTT (Actin FS) Sodium Cancelled Potassium Cancelled Chloride Cancelled Carbon Dioxide Cancelled Anion Gap Cancelled BUN Cancelled Creatinine Cancelled Creat Clearance w eGFR Cancelled Random Glucose Cancelled Lactic Acid Calcium Cancelled Total Bilirubin Cancelled AST Cancelled ALT Cancelled Alkaline Phosphatase Cancelled Creatine Kinase Troponin I Total Protein Cancelled Albumin Cancelled Urine Color Urine Appearance Urine pH Ur Specific Deville Urine Protein Urine Glucose (UA) Urine Ketones Urine Blood Urine Nitrite Urine Bilirubin Urine Urobilinogen Urine WBC (Auto) Urine RBC (Auto) Ur Epithelial Cells Hyaline Casts Blood Type B POSITIVE Antibody Screen Negative 03/08/17 03/08/17 03/08/17 15:05 15:05 15:05 WBC RBC Hgb Hct MCV MCH MCHC RDW Plt Count MPV Neutrophils % Lymphocytes % Monocytes % Eosinophils % Basophils % PT with INR 16.60 H INR 1.47 H PTT (Actin FS) 34.4 Sodium Potassium Chloride Carbon Dioxide Anion Gap BUN Creatinine Creat Clearance w eGFR Random Glucose Lactic Acid 2.3 H* Calcium Total Bilirubin AST ALT Alkaline Phosphatase Creatine Kinase Cancelled Troponin I Cancelled Total Protein Albumin Urine Color Urine Appearance Urine pH Ur Specific Deville Urine Protein Urine Glucose (UA) Urine Ketones Urine Blood Urine Nitrite Urine Bilirubin Urine Urobilinogen Urine WBC (Auto) Urine RBC (Auto) Ur Epithelial Cells Hyaline Casts Blood Type Antibody Screen 03/08/17 03/08/17 16:10 17:50 WBC RBC Hgb Hct MCV MCH MCHC RDW Plt Count MPV Neutrophils % Lymphocytes % Monocytes % Eosinophils % Basophils % PT with INR INR PTT (Actin FS) Sodium 132 L Potassium 6.1 H* Chloride 99 Carbon Dioxide 22 D Anion Gap 11 BUN 83 H D Creatinine 6.8 H D Creat Clearance w eGFR 8.16 Random Glucose 187 H D Lactic Acid Calcium 7.6 L Total Bilirubin 0.4 D AST 7 L D ALT 9 L D Alkaline Phosphatase 91 Creatine Kinase 36 L Troponin I < 0.02 D Total Protein 6.4 Albumin 1.6 L Urine Color Yellow Urine Appearance Turbid Urine pH 7.0 D Ur Specific Deville 1.012 Urine Protein 3+ H Urine Glucose (UA) Negative Urine Ketones Negative Urine Blood 2+ H Urine Nitrite Negative Urine Bilirubin Negative Urine Urobilinogen Negative Urine WBC (Auto) 664 Urine RBC (Auto) 13 Ur Epithelial Cells Rare Hyaline Casts 15 Blood Type Antibody Screen ASSESSMENT/PLAN: This is a 67 y/o man with a PMHx of: ESRD (HD-,,) last dialysis 5 days ago , HTN, IDDM, Chronic Anemia, Decubitus Stage 4 Ulcers. Admitted to Telemetry for Hyperkalemia, Sepsis secondary to UTI for further evaluation of their emergent condition. Plan: 1. Hyperkalemia - Likely secondary to volume overload 2/2 missed HD - Continue cardiac monitoring - Will need dialysis tonight - Nephrology was consulted in ED, Dr. Plasencia arranged HD s/p Shiley Placement - Patient was given Hyperkalemia Protocol: Sodium Bicarb, D50, Regular Insulin, Albuterol neb in ED - Will repeat CBC, BMP post dialysis - EKG- reviewed no peaked Ts 2. Sepsis - Secondary to UTI - qSOFA Score 2 - SIRS Criteria IV Met- T Max 102.2, P-110, BUN 83, BP 90/50 - Blood Culture-pending - Urine Culture-pending - Zosyn/Vancomycin given in ED - Will continue renal dosing - Appreciate ID Consult - LA 2.3 - Repeat LA post dialysis - Tylenol prn - Repeat CBC, BMP 3. Hypertension - Will hold home meds secondary to Hypotension likely due to Sepsis - Monitor BP 4. IDDM - BGMs - ISS - HGBA1C in am - Hold Levemir until diet resumed 5. Decubitus Ulcers - Stage 4 to sacrum/buttocks - Wound care nurse - Continue Santyl ointment - Wound culture-pending 6. Chronic Anemia - Hgb 8.7 at baseline - Will transfuse if Hgb < 7.0 - CBC in am 7. FEN - Fluid Restriction 1L - Replete lytes prn - Renal, 2Gm Na Diet 8. DVT Prophylaxis - OOB - Heparin SQ Code Status: Full Code Dispo: Requires Inpatient Care Problem List - Problem (1) Hyperkalemia Code(s): E87.5 - HYPERKALEMIA (2) Sepsis secondary to UTI Code(s): A41.9 - SEPSIS, UNSPECIFIED ORGANISM; N39.0 - URINARY TRACT INFECTION, SITE NOT SPECIFIED (3) End stage kidney disease Code(s): N18.6 - END STAGE RENAL DISEASE (4) Acute on chronic renal failure Code(s): N17.9 - ACUTE KIDNEY FAILURE, UNSPECIFIED; N18.9 - CHRONIC KIDNEY DISEASE, UNSPECIFIED (5) CHF (congestive heart failure) Code(s): I50.9 - HEART FAILURE, UNSPECIFIED (6) COPD (chronic obstructive pulmonary disease) Code(s): J44.9 - CHRONIC OBSTRUCTIVE PULMONARY DISEASE, UNSPECIFIED (7) HTN (hypertension) Code(s): I10 - ESSENTIAL (PRIMARY) HYPERTENSION (8) Infected decubitus ulcer Code(s): L89.90 - PRESSURE ULCER OF UNSPECIFIED SITE, UNSPECIFIED STAGE (9) Diabetes Code(s): E11.9 - TYPE 2 DIABETES MELLITUS WITHOUT COMPLICATIONS Qualifiers: (10) DVT prophylaxis Code(s): [id number] - Visit type - Emergency Visit Emergency Visit: Yes ED Registration Date: 03/08/17 Care time: The patient presented to the Emergency Department on the above date and was hospitalized for further evaluation of their emergent condition. - New Patient This patient is new to me today: Yes Date on this admission: 03/08/17 - Critical Care Critical Care patient: No
[2017-03-08 21:59] LABS: URINE LEUK ESTERASE 3+ (NEGATIVE)
[2017-03-08] MEDS ORDERED: EPOETIN ALFA 10,000 UNIT/1 ML VIAL IVPUSH ONE (23:15)
[2017-03-09 01:35] VITALS: BMI 20.5
[2017-03-09 01:45] LABS: ANION GAP 14 (8-16); CALCIUM 9.7 mg/dL (8.5-10.1); CO2 30 mmol/L (21-32); CREATININE 1.7 mg/dL (0.7-1.3); GLUCOSE,RANDOM 170 mg/dL (74-106)
[2017-03-09] MEDS: ACETAMINOPHEN 650 MG SUPP.RECT PR PRN ×2 (02:40→21:36)
[2017-03-09] MEDS ORDERED: SODIUM CHLORIDE 100 ML IV STA ×2 (02:46→06:39)
[2017-03-09] MEDS ORDERED: ONDANSETRON 4 MG/2 ML VIAL IVPUSH ONE (03:36)
[2017-03-09 05:24] LABS: BASOPHIL 1.1 % (0-2.0); EOSINOPHIL 0.8 % (0-4.5); MCH 26.4 pg (25.7-33.7); MCHC 31.7 g/dl (32.0-35.9); MEAN CELL VOLUME 83.2 fl (80-96); MEAN PLT VOLUME 6.8 fl (7.5-11.1); NEUTROPHILS 53.2 % (42.8-82.8); PLATELET COUNT 295 K/MM3 (134-434); RDW 18.6 % (11.9-15.9); WHITE BLOOD COUNT 6.4 K/mm3 (4.0-10.0)
[2017-03-09 05:48] LABS: ANION GAP 9 (8-16); CALCIUM 7.3 mg/dL (8.5-10.1); CO2 25 mmol/L (21-32); CREATININE 6.1 mg/dL (0.7-1.3); GLUCOSE,RANDOM 165 mg/dL (74-106)
--- NOTE | 2017-03-09 07:15 | HOSP ---
Subjective - Review of Symptoms Events since last encounter: Hospitalist Encounter Notified by the RN that the Hgb 6.9 A/P Chronic Anemia Hypotension -2 PRBCs stat -Call placed to Jake Jane, HCP informed him of patient's Hgb. He consented to the PRBCs, informed the RN. - NS bolus 100ml - Monitor vitals Physical Examination Vital Signs: Vital Signs Temperature 98.9 F 03/09/17 06:00 Pulse Rate 89 03/09/17 06:00 Respiratory Rate 16 03/09/17 06:00 Blood Pressure 82/42 03/09/17 06:00 O2 Sat by Pulse Oximetry (%) 98 03/09/17 01:43 Labs: CBC, BMP 03/09/17 05:10 03/09/17 05:10
--- NOTE | 2017-03-09 09:04 | PN ---
Progress Note, Physician Chief Complaint: Events noted Pt sent from [facility] for pulling out permacath Found to have high temp in ER, elevated lactic acid received IV antibiotics in ER Here in Telemetry Hb found to be low- hypotensive Receiving first unit of PRBC HD this morning left femoral cath placed by surgery yesterday - Current Medication List Current Medications: Active Medications Acetaminophen (Tylenol Suppository -) 650 mg FL Q6H PRN PRN Reason: FEVER OR PAIN Last Admin: 03/09/17 02:40 Dose: 650 mg Vancomycin HCl 500 mg/ (Dextrose) 100 mls @ 100 mls/hr IVPB Q48H AKOSUA Piperacillin Sod/Tazobactam (Sod 2.25 gm/ Dextrose) 50 mls @ 100 mls/hr IVPB ONCE ONE Stop: 03/09/17 10:29 Vancomycin HCl 500 mg/ (Dextrose) 100 mls @ 100 mls/hr IVPB ONCE ONE Stop: 03/09/17 10:59 Piperacillin/Tazobactam/Dextrose (Zosyn 2.25gm Ivpb (Premix)) 2.25 gm IVPB BID AKOSUA - Objective Vital Signs: Vital Signs Temperature 98.9 F 03/09/17 06:00 Pulse Rate 89 03/09/17 06:00 Respiratory Rate 16 03/09/17 06:00 Blood Pressure 82/42 03/09/17 06:00 O2 Sat by Pulse Oximetry (%) 98 03/09/17 01:43 Constitutional: Yes: No Distress, Calm, Pallor Cardiovascular: Yes: Regular Rate and Rhythm Respiratory: Yes: Diminished Gastrointestinal: Yes: Normal Bowel Sounds, Soft. No: Distention, Tenderness Extremities: Yes: Other (stage 4 sacral ulcer +) Edema: No Psychiatric: Yes: Alert Labs: CBC, BMP 03/09/17 05:10 03/09/17 05:10 INR, PTT INR 1.47 (0.82-1.09) H 03/08/17 15:05 Problem List - Problems (1) CHF (congestive heart failure) Code(s): I50.9 - HEART FAILURE, UNSPECIFIED (2) End stage kidney disease Code(s): N18.6 - END STAGE RENAL DISEASE (3) HTN (hypertension) Code(s): I10 - ESSENTIAL (PRIMARY) HYPERTENSION (4) Sepsis Code(s): A41.9 - SEPSIS, UNSPECIFIED ORGANISM Assessment/Plan PLAN Anemia --Transfuse PRBC -- check stool guaic -- GI eval-- though pt has refused interventions in the past -- monitor CBC ESRD on HD -- HD yesterday -- Vascular eval for permacath placement -- left femoral shiley placed yesterday Sepsis -- possibly due to UTI, sacral decubiti -- wound care eval -- ID eval -- IV antibiotics -- Cultures pending Hypotension -- ICU /Critical care eval -- transfuse PRBC , give iv antibiotics -- may need pressor support if the above does not help DVT prophylaxis -- SCD
[2017-03-09] MEDS ORDERED: VANCOMYCIN 500 MG in DEXTROSE 5%-WATER - 100 ML IVPB ONE ×2 (10:00→23:15)
[2017-03-09] MEDS ORDERED: PIPERACILLIN/TAZOB 2.25 GM 2.25 GM in DEXTROSE 5%-WATER - 50 ML IVPB ONE (10:00)
--- NOTE | 2017-03-09 10:27 | CON.PULM ---
Consult Consult Specialty:: PULM/CCM Referred by:: PAT Reason for Consultation:: Hypotension - History of Present Illness Chief Complaint: pulled out HD access History of Present Illness: 67 M, ESRD on HD (,, ), HTN, IDDM, chronic anemia, and sacral Ulcers. Admitted via the ER due to pulling out his Permacath. Patient is uncooperative and a poor historian. He has been berating the staff since admission. Noted to have acute on chronic anemia. A CXR was ordered to confirm that fragments of his access are not retained, but he refuses to have the CXR performed. Noted to be hypotensive, but mentation is apparently at baseline. He is currently receiving pRBCs. 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 Cardio/Vascular: Yes: HTN Pulmonary: Yes: COPD Renal/: Yes: Renal Failure, Renal Inusuff, Hemodialysis Endocrine: Yes: Diabetes Mellitus - Alcohol/Substance Use Hx Alcohol Use: No - Smoking History Smoking history: Former smoker Have you smoked in the past 12 months: No Aproximately how many cigarettes per day: 20 If you are a former smoker, when did you quit?: January 2016 - Social History Usual Living Arrangement: With Significant Other ADL: Independent History of Recent Travel: No Home Medications - Allergies Allergies/Adverse Reactions: Allergies Allergy/AdvReac Type Severity Reaction Status Date / Time No Known Allergies Allergy Verified 03/08/17 14:36 - Home Medications Home Medications: Ambulatory Orders Acetaminophen [Tylenol] 650 mg PO Q6H PRN 02/28/17 Albuterol 0.083% Nebulizer Myrna [Ventolin 0.083% Nebulizer Soln -] 1 neb NEB Q6H 02/28/17 Calcium Acetate [Phoslo -] 1,334 mg PO TIDCM 02/28/17 Collagenase Clostridium Hist. [Santyl -] 1 applic TP DAILY 02/28/17 Finasteride [Proscar] 5 mg PO DAILY 02/28/17 Furosemide [Lasix] 80 mg PO DAILY 02/28/17 Insulin (Levemir) [Levemir Vial] 10 units SQ BID 02/28/17 Insulin Aspart [Novolog] 0 unit SQ ASDIR 02/28/17 Mag Hydrox/Al Hydrox/Simeth [Adrienne-Lanta Liquid] 10 ml PO QID 02/28/17 Metoprolol Succinate [Toprol XL -] 25 mg PO BID 02/28/17 Mirtazapine [Remeron -] 15 mg PO DAILY 02/28/17 Sertraline HCl 50 mg PO DAILY 02/28/17 Vit A/Vitamin D3/E/Aloe V/Znox [Periguard Ointment] 15 gm TP DAILY 02/28/17 Vitamin B Comp W-C [Nephro-Rebecca -] 1 tablet PO DAILY 02/28/17 Review of Systems Unable to obtain ROS, reason: Poor historian . refuses Physical Exam Vital Sings: Vital Signs Temperature 98.9 F 03/09/17 06:00 Pulse Rate 89 03/09/17 06:00 Respiratory Rate 16 03/09/17 06:00 Blood Pressure 82/42 03/09/17 06:00 O2 Sat by Pulse Oximetry (%) 98 03/09/17 01:43 Constitutional: Yes: Poor Hygeine, Other (uncooperative with exam ) Labs: CBC, BMP 03/09/17 05:10 03/09/17 05:10 Imaging - Results Chest X-ray: Report Reviewed, Image Reviewed Problem List - Problems (1) Hyperkalemia Code(s): E87.5 - HYPERKALEMIA (2) End stage kidney disease Code(s): N18.6 - END STAGE RENAL DISEASE (3) CHF (congestive heart failure) Code(s): I50.9 - HEART FAILURE, UNSPECIFIED (4) COPD (chronic obstructive pulmonary disease) Code(s): J44.9 - CHRONIC OBSTRUCTIVE PULMONARY DISEASE, UNSPECIFIED (5) Diabetes 1.5, managed as type 1 Code(s): E13.9 - OTHER SPECIFIED DIABETES MELLITUS WITHOUT COMPLICATIONS (6) Dialysis patient Code(s): Z99.2 - DEPENDENCE ON RENAL DIALYSIS (7) HTN (hypertension) Code(s): I10 - ESSENTIAL (PRIMARY) HYPERTENSION (8) Hyperglycemia Code(s): R73.9 - HYPERGLYCEMIA, UNSPECIFIED (9) Sacral decubitus ulcer, stage III Code(s): L89.153 - PRESSURE ULCER OF SACRAL REGION, STAGE 3 Assessment/Plan pRBCs May require IVF to maintain MAP No pressors indicated for now O2 as needed Would avoid volume removal during HD Follow cultures Noted ID consult was called Daily weight HD per Renal (via temp access) Maintain in current monitored bed Dr Tang Critical care time spent in reviewing chart, evaluating patient and formulating plan - 35 minutes.
--- NOTE | 2017-03-09 10:33 | CONSULT ---
Consult - text type - Consultation Consultation Note: Patient seen and examined, s/p left femoral shiley, The nearly avulsed right IJ permacath was completely removed an disgarded. pressure dressing applied and portable CXR was ordered.
--- NOTE | 2017-03-09 11:28 | CON.ID ---
Consult Reason for Consultation:: sepsis - History of Present Illness History of Present Illness: Pt seen and examined. Notes and lab results reviewed, events noted. This is a 67 y.o. male with PMH of HTN, DM, ESRD on HD, anemia, COPD, CHF admitted because his permacath was avulsed. Noted to have a fever 102F and was hypotensive upon presentation, with bacteriuria. Pt also has Sacral and Ischial DUs. He is an unreliable source of history. Has not had dialysis for several days. Permacath has been removed and femoral shiley has been placed. 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 Cardio/Vascular: Yes: HTN Pulmonary: Yes: COPD Renal/: Yes: Renal Failure, Renal Inusuff, Hemodialysis Musculoskeletal: Yes: Other (sacral/ischial DUs) Endocrine: Yes: Diabetes Mellitus - Past Surgical History Past Surgical History: Yes: Cholecystectomy - Alcohol/Substance Use Hx Alcohol Use: No - Smoking History Smoking history: Former smoker Have you smoked in the past 12 months: No Aproximately how many cigarettes per day: 20 If you are a former smoker, when did you quit?: January 2016 - Social History Usual Living Arrangement: With Significant Other ADL: Independent History of Recent Travel: No Home Medications - Allergies Allergies/Adverse Reactions: Allergies Allergy/AdvReac Type Severity Reaction Status Date / Time No Known Allergies Allergy Verified 03/08/17 14:36 - Home Medications Home Medications: Ambulatory Orders RX: Acetaminophen [Tylenol] 650 mg PO Q6H PRN 02/28/17 RX: Albuterol 0.083% Nebulizer Myrna [Ventolin 0.083% Nebulizer Soln -] 1 neb NEB Q6H 02/28/17 RX: Calcium Acetate [Phoslo -] 1,334 mg PO TIDCM 02/28/17 RX: Collagenase Clostridium Hist. [Santyl -] 1 applic TP DAILY 02/28/17 RX: Finasteride [Proscar] 5 mg PO DAILY 02/28/17 RX: Furosemide [Lasix] 80 mg PO DAILY 02/28/17 RX: Insulin (Levemir) [Levemir Vial] 10 units SQ BID 02/28/17 RX: Insulin Aspart [Novolog] 0 unit SQ ASDIR 02/28/17 RX: Mag Hydrox/Al Hydrox/Simeth [Adrienne-Lanta Liquid] 10 ml PO QID 02/28/17 RX: Metoprolol Succinate [Toprol XL -] 25 mg PO BID 02/28/17 RX: Mirtazapine [Remeron -] 15 mg PO DAILY 02/28/17 RX: Sertraline HCl 50 mg PO DAILY 02/28/17 RX: Vit A/Vitamin D3/E/Aloe V/Znox [Periguard Ointment] 15 gm TP DAILY 02/28/17 RX: Vitamin B Comp W-C [Nephro-Rebecca -] 1 tablet PO DAILY 02/28/17 Family Disease History - Family Disease History Family History: Unable to Obtain Review of Systems - Review of Systems Respiratory: reports: No Symptoms Gastrointestinal: reports: No Symptoms Genitourinary: reports: No Symptoms Integumentary: reports: Other (DUs) Neurological: reports: Other (mild confusion, possibly at baseline) Endocrine: reports: No Symptoms Hematology/Lymphatic: reports: No Symptoms Psychiatric: reports: No Symptoms Physical Exam Vital Signs: Vital Signs Temperature 98.9 F 03/09/17 06:00 Pulse Rate 89 03/09/17 06:00 Respiratory Rate 16 03/09/17 06:00 Blood Pressure 82/42 03/09/17 06:00 O2 Sat by Pulse Oximetry (%) 98 03/09/17 01:43 Constitutional: Yes: No Distress Eyes: Yes: WNL HENT: Yes: Atraumatic Neck: Yes: Supple Cardiovascular: Yes: Tachycardia Respiratory: Yes: Regular Gastrointestinal: Yes: Normal Bowel Sounds, Soft Extremities: Yes: WNL Integumentary: Yes: Pressure Ulcer (sacral Stage 4 DU and Rt ischial DU with discharge, undermining) Neurological: Yes: Alert Psychiatric: Yes: Alert Labs: CBC, BMP 03/09/17 05:10 03/09/17 05:10 Problem List - Problems (1) CHF (congestive heart failure) Code(s): I50.9 - HEART FAILURE, UNSPECIFIED (2) COPD (chronic obstructive pulmonary disease) Code(s): J44.9 - CHRONIC OBSTRUCTIVE PULMONARY DISEASE, UNSPECIFIED (3) Dialysis patient Code(s): Z99.2 - DEPENDENCE ON RENAL DIALYSIS (4) HTN (hypertension) Code(s): I10 - ESSENTIAL (PRIMARY) HYPERTENSION (5) Sepsis Code(s): A41.9 - SEPSIS, UNSPECIFIED ORGANISM (6) Anemia Code(s): D64.9 - ANEMIA, UNSPECIFIED Qualifiers: Anemia type: unspecified type Qualified Code(s): D64.9 - Anemia, unspecified (7) Diabetes Code(s): E11.9 - TYPE 2 DIABETES MELLITUS WITHOUT COMPLICATIONS Qualifiers: (8) UTI (urinary tract infection) Code(s): N39.0 - URINARY TRACT INFECTION, SITE NOT SPECIFIED Assessment/Plan Sepsis Elevated lactic acid Fever UTI Infected Sacral and Ischial DUs Removed permacath, r/o bacteremia -- suggest continue Zosyn and Vancomycin -- Blood cultures, wound cultures, urine cultures -- repeat lactic acid -- suggest MRI of sacrum/hips if possible will follow up CC time: 40 min
[2017-03-09] MEDS ORDERED: PT OWN MED DRAWER 7, Y5N ONE (13:14)
[2017-03-09] MEDS ORDERED: VANCOMYCIN 750 MG in DEXTROSE 5%-WATER - 250 ML IVPB ONE (15:00)
--- NOTE | 2017-03-09 15:10 | CONSULT ---
Consult Consult Specialty:: Nephrolohy ( Jose/ Guilherme) Reason for Consultation:: Patient has ESRD, on HD - History of Present Illness Chief Complaint: 67 M, ESRD on HD, HTN, IDDM, chronic anemia, and sacral Ulcers. Admitted via the ER due to accidental pulling out his Permacath during dialysis. The patient had his last Hd on last Friday. 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 Cardio/Vascular: Yes: HTN Pulmonary: Yes: COPD Renal/: Yes: Renal Failure, Renal Inusuff, Hemodialysis Musculoskeletal: Yes: Other (sacral/ischial DUs) Endocrine: Yes: Diabetes Mellitus - Alcohol/Substance Use Hx Alcohol Use: No - Smoking History Smoking history: Former smoker Have you smoked in the past 12 months: No Aproximately how many cigarettes per day: 20 If you are a former smoker, when did you quit?: January 2016 - Social History Usual Living Arrangement: With Significant Other ADL: Independent History of Recent Travel: No Home Medications - Allergies Allergies/Adverse Reactions: Allergies Allergy/AdvReac Type Severity Reaction Status Date / Time No Known Allergies Allergy Verified 03/08/17 14:36 - Home Medications Home Medications: Ambulatory Orders Acetaminophen [Tylenol] 650 mg PO Q6H PRN 02/28/17 Albuterol 0.083% Nebulizer Mryna [Ventolin 0.083% Nebulizer Soln -] 1 neb NEB Q6H 02/28/17 Calcium Acetate [Phoslo -] 1,334 mg PO TIDCM 02/28/17 Collagenase Clostridium Hist. [Santyl -] 1 applic TP DAILY 02/28/17 Finasteride [Proscar] 5 mg PO DAILY 02/28/17 Furosemide [Lasix] 80 mg PO DAILY 02/28/17 Insulin (Levemir) [Levemir Vial] 10 units SQ BID 02/28/17 Insulin Aspart [Novolog] 0 unit SQ ASDIR 02/28/17 Mag Hydrox/Al Hydrox/Simeth [Adrienne-Lanta Liquid] 10 ml PO QID 02/28/17 Metoprolol Succinate [Toprol XL -] 25 mg PO BID 02/28/17 Mirtazapine [Remeron -] 15 mg PO DAILY 02/28/17 Sertraline HCl 50 mg PO DAILY 02/28/17 Vit A/Vitamin D3/E/Aloe V/Znox [Periguard Ointment] 15 gm TP DAILY 02/28/17 Vitamin B Comp W-C [Nephro-Rebecca -] 1 tablet PO DAILY 02/28/17 Review of Systems - Review of Systems Constitutional: reports: Lethargy, Loss of Appetite Cardiovascular: reports: Edema, Shortness of Breath Gastrointestinal: reports: Diarrhea Musculoskeletal: reports: Back Pain, Joint Swelling, Muscle Pain Physical Exam Vital Signs: Vital Signs Temperature 98.9 F 03/09/17 06:00 Pulse Rate 89 03/09/17 06:00 Respiratory Rate 16 03/09/17 06:00 Blood Pressure 82/42 03/09/17 06:00 O2 Sat by Pulse Oximetry (%) 98 03/09/17 01:43 Constitutional: Yes: Calm, Pallor Eyes: Yes: Conjunctiva Clear HENT: Yes: Normocephalic Neck: Yes: Supple Cardiovascular: Yes: Regular Rate and Rhythm, Gallop, S1, S2 Respiratory: Yes: Diminished, Poor Air Entry, Rhonchi Gastrointestinal: Yes: Normal Bowel Sounds Renal/: No: CVA Tenderness - Left, CVA Tenderness - Right, Hematuria Extremities: Yes: Cool Labs: CBC, BMP 03/09/17 05:10 03/09/17 05:10 Problem List - Problems (1) Hyperkalemia Code(s): E87.5 - HYPERKALEMIA (2) End stage kidney disease Code(s): N18.6 - END STAGE RENAL DISEASE (3) CHF (congestive heart failure) Code(s): I50.9 - HEART FAILURE, UNSPECIFIED (4) COPD (chronic obstructive pulmonary disease) Code(s): J44.9 - CHRONIC OBSTRUCTIVE PULMONARY DISEASE, UNSPECIFIED (5) HTN (hypertension) Code(s): I10 - ESSENTIAL (PRIMARY) HYPERTENSION (6) Infected decubitus ulcer Code(s): L89.90 - PRESSURE ULCER OF UNSPECIFIED SITE, UNSPECIFIED STAGE (7) Leukocytosis Code(s): D72.829 - ELEVATED WHITE BLOOD CELL COUNT, UNSPECIFIED (8) Metabolic encephalopathy Code(s): G93.41 - METABOLIC ENCEPHALOPATHY (9) Sepsis Code(s): A41.9 - SEPSIS, UNSPECIFIED ORGANISM (10) Anemia Code(s): D64.9 - ANEMIA, UNSPECIFIED Qualifiers: Anemia type: unspecified type Qualified Code(s): D64.9 - Anemia, unspecified (11) Sacral decubitus ulcer, stage III Code(s): L89.153 - PRESSURE ULCER OF SACRAL REGION, STAGE 3 Assessment/Plan 67 M, ESRD on HD , HTN, IDDM, chronic anemia, and sacral Ulcers. Admitted via the ER due to pulling out his Permacath. Noted to be hypotensive, but mentation is apparently at baseline. Received PRBC transfusion. The patient had placement of an acute Vascath in the left femoral vein last night, after which he got 2 1/2 hours of dialysis. Discussed with Dr. Longoria. He will have the Permacath placed tomorrow, after which another HD will be done. The Antibiotics as ordered. Thank you. Will follow with you. Chichi Garcia MD
--- NOTE | 2017-03-09 16:07 | CON.GI ---
Consult Consult Specialty:: gastroenterology Referred by:: Dr Porsha Spence Reason for Consultation:: anemia - History of Present Illness History of Present Illness: 67 y/o male with PMH of chronic anemia, ESRD,DM was asked to be seen because of aenmia, He denies abdominal pain, rectal bleeding, melena and recent weight loss. He is guaiac negative. He was admitted with multiple joint pains. 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 Cardio/Vascular: Yes: HTN Pulmonary: Yes: COPD Renal/: Yes: Renal Failure, Renal Inusuff, Hemodialysis Musculoskeletal: Yes: Other (sacral/ischial DUs) Endocrine: Yes: Diabetes Mellitus - Alcohol/Substance Use Hx Alcohol Use: No - Smoking History Smoking history: Former smoker Have you smoked in the past 12 months: No Aproximately how many cigarettes per day: 20 If you are a former smoker, when did you quit?: January 2016 - Social History Usual Living Arrangement: With Significant Other ADL: Independent History of Recent Travel: No Home Medications - Allergies Allergies/Adverse Reactions: Allergies Allergy/AdvReac Type Severity Reaction Status Date / Time No Known Allergies Allergy Verified 03/08/17 14:36 - Home Medications Home Medications: Ambulatory Orders Acetaminophen [Tylenol] 650 mg PO Q6H PRN 02/28/17 Albuterol 0.083% Nebulizer Myrna [Ventolin 0.083% Nebulizer Soln -] 1 neb NEB Q6H 02/28/17 Calcium Acetate [Phoslo -] 1,334 mg PO TIDCM 02/28/17 Collagenase Clostridium Hist. [Santyl -] 1 applic TP DAILY 02/28/17 Finasteride [Proscar] 5 mg PO DAILY 02/28/17 Furosemide [Lasix] 80 mg PO DAILY 02/28/17 Insulin (Levemir) [Levemir Vial] 10 units SQ BID 02/28/17 Insulin Aspart [Novolog] 0 unit SQ ASDIR 02/28/17 Mag Hydrox/Al Hydrox/Simeth [Adrienne-Lanta Liquid] 10 ml PO QID 02/28/17 Metoprolol Succinate [Toprol XL -] 25 mg PO BID 02/28/17 Mirtazapine [Remeron -] 15 mg PO DAILY 02/28/17 Sertraline HCl 50 mg PO DAILY 02/28/17 Vit A/Vitamin D3/E/Aloe V/Znox [Periguard Ointment] 15 gm TP DAILY 02/28/17 Vitamin B Comp W-C [Nephro-Rebecca -] 1 tablet PO DAILY 02/28/17 Review of Systems - Review of Systems Constitutional: denies: Fever Eyes: reports: Blurred Vision HENT: reports: Difficult Swallowing Cardiovascular: denies: Chest Pain Respiratory: denies: Cough Gastrointestinal: denies: No Symptoms, Abdominal Pain, Bloating, Constipation, Diarrhea, Dysphagia, Indigestion, Melena, Nausea, Rectal Bleeding, Vomiting, Vomiting Blood, Other Physical Exam-GI Vital Signs: Vital Signs Temperature 98.9 F 03/09/17 06:00 Pulse Rate 89 03/09/17 06:00 Respiratory Rate 16 03/09/17 06:00 Blood Pressure 82/42 03/09/17 06:00 O2 Sat by Pulse Oximetry (%) 98 03/09/17 01:43 Constitutional: Yes: Well Nourished Eyes: Yes: Conjunctiva Clear HENT: Yes: Atraumatic Neck: Yes: Trachea Midline Cardiovascular: Yes: Regular Rate and Rhythm Respiratory: Yes: CTA Bilaterally Gastrointestinal Inspection: No: Ascites, Distention ...Auscultate: Yes: Normoactive Bowel Sounds ...Palpate: Yes: Soft. No: Firm/Rigid, Guarding, Hepatomegaly, Mass, Pulsatile Mass, Splenomegaly, Tenderness ...Percussion: No: Tympanitic Labs: CBC, BMP 03/09/17 05:10 03/09/17 05:10 INR, PTT INR 1.47 (0.82-1.09) H 03/08/17 15:05 Hepatic Panel Total Bilirubin 0.4 mg/dL (0.2-1.0) D 03/08/17 16:10 AST 7 U/L (15-37) L D 03/08/17 16:10 ALT 9 U/L (12-78) L D 03/08/17 16:10 Alkaline Phosphatase 91 U/L (45-117) 03/08/17 16:10 Albumin 1.6 g/dl (3.4-5.0) L 03/08/17 16:10 Home Medications Medication Instructions Recorded Acetaminophen [Tylenol] 650 mg PO Q6H PRN 02/28/17 Albuterol 0.083% Nebulizer Myrna 1 neb NEB Q6H 02/28/17 [Ventolin 0.083% Nebulizer Soln -] Calcium Acetate [Phoslo -] 1,334 mg PO TIDCM 02/28/17 Collagenase Clostridium Hist. 1 applic TP DAILY 02/28/17 [Santyl -] Finasteride [Proscar] 5 mg PO DAILY 02/28/17 Furosemide [Lasix] 80 mg PO DAILY 02/28/17 Insulin (Levemir) [Levemir Vial] 10 units SQ BID 02/28/17 Insulin Aspart [Novolog] 0 unit SQ ASDIR 02/28/17 Mag Hydrox/Al Hydrox/Simeth 10 ml PO QID 02/28/17 [Adrienne-Lanta Liquid] Metoprolol Succinate [Toprol XL -] 25 mg PO BID 02/28/17 Mirtazapine [Remeron -] 15 mg PO DAILY 02/28/17 Sertraline HCl 50 mg PO DAILY 02/28/17 Vit A/Vitamin D3/E/Aloe V/Znox 15 gm TP DAILY 02/28/17 [Periguard Ointment] Vitamin B Comp W-C [Nephro-Rebecca -] 1 tablet PO DAILY 02/28/17 Problem List - Problems (1) Anemia Assessment/Plan: R> I advised him to under go GI w/u including EGD and colonoscopy which he never had in the past. He refused. He was made aware of the risk of undetected malignancy, Advance diet, please reconsult as necessary. Code(s): D64.9 - ANEMIA, UNSPECIFIED Qualifiers: Anemia type: unspecified type Qualified Code(s): D64.9 - Anemia, unspecified
[2017-03-09] MEDS ORDERED: PIPERACILLIN/TAZOB 2.25 GM/50 ML PREMIX BAG IVPB SCH ×2 (18:00→22:00)
[2017-03-09] MEDS: PIPERACILLIN/TAZOB 2.25 GM 2.25 GM in DEXTROSE 5%-WATER - 50 ML IVPB SCH (19:00)
[2017-03-09] MEDS ORDERED: INSULIN (NOVOLOG) ASPART 100 UNITS/ML 10ML VIAL ONE (21:32)
[2017-03-10] MEDS: PIPERACILLIN/TAZOB 2.25 GM 2.25 GM in DEXTROSE 5%-WATER - 50 ML IVPB SCH ×4 (01:40→19:17)
[2017-03-10] MEDS: ACETAMINOPHEN 650 MG SUPP.RECT PR PRN (04:03)
[2017-03-10] MEDS ORDERED: HEPARIN NA (PORCINE) 5,000 UNITS/ML 1ML VIAL ONE (09:49)
[2017-03-10] MEDS ORDERED: LIDOCAINE HCL 1%, 10 MG/ML (20ML VIAL) ONE (09:49)
[2017-03-10 09:59] LABS: EOSINOPHIL 1.5 % (0-4.5); MCH 26.6 pg (25.7-33.7); MCHC 32.3 g/dl (32.0-35.9); MEAN CELL VOLUME 82.3 fl (80-96); MEAN PLT VOLUME 6.7 fl (7.5-11.1); NEUTROPHILS 48.9 % (42.8-82.8); PLATELET COUNT 313 K/MM3 (134-434); RDW 18.1 % (11.9-15.9); WHITE BLOOD COUNT 7.7 K/mm3 (4.0-10.0)
--- NOTE | 2017-03-10 10:14 | PN ---
Progress Note, Physician Chief Complaint: disloged permcath History of Present Illness: 67 yo male PMH HTN, DM, CHF, COPD, ESRD on HD whose dialysis catheter was accidentally pulled out today. He is scheduled for HD tonight and now being treated for a urosepsis in the ER. He is on IV antibiotics, Otherwise a poor historian. s/p left femoral shiley placement in ED used for dialysis, scheduled for a permcath today - Current Medication List Current Medications: Active Medications Acetaminophen (Tylenol Suppository -) 650 mg [place] Q6H PRN PRN Reason: FEVER OR PAIN Last Admin: 03/10/17 04:03 Dose: 650 mg Epoetin Neftaly (Procrit -) 20,000 unit SQ ONCE ONE Stop: 03/10/17 13:50 Vancomycin HCl 750 mg/ (Dextrose) 250 mls @ 250 mls/hr IVPB TuThSa AKOSUA Piperacillin Sod/Tazobactam (Sod 2.25 gm/ Dextrose) 50 mls @ 100 mls/hr IVPB Q8H-IV AKOSUA Last Admin: 03/10/17 09:16 Dose: 100 mls/hr - Objective Vital Signs: Vital Signs Temperature 99.2 F 03/10/17 06:00 Pulse Rate 98 H 03/10/17 06:00 Respiratory Rate 18 03/10/17 06:00 Blood Pressure 102/73 03/10/17 06:00 O2 Sat by Pulse Oximetry (%) 98 03/09/17 21:00 Vital Signs Period Temp Pulse Resp BP Sys/Vogt Pulse Ox Last 24 Hr 98.6 F-100.4 F 94-111 10-18 96-108/56-73 98 Constitutional: Yes: No Distress, Cachectic Eyes: Yes: Conjunctiva Clear, EOM Intact HENT: Yes: Atraumatic, Normocephalic Neck: Yes: Supple, Trachea Midline Cardiovascular: Yes: Regular Rate and Rhythm, S1 Respiratory: Yes: Regular, CTA Bilaterally, Other (Right chest perm cath site is clean and dry after removal yeasteday, no drainage, no hematoma) Gastrointestinal: Yes: Normal Bowel Sounds, Soft ...Rectal Exam: Yes: Deferred Genitourinary: No: CVA Tenderness - Left, CVA Tenderness - Right Musculoskeletal: No: Muscle Pain, Muscle Weakness Extremities: No: Cool, Cyanosis Edema: No Peripheral Pulses WNL: Yes Peripheral Pulses: Left Doralis Pedis: 2+, Right Dorsalis Pedis: 2+, Left Femoral: 2+ (left femoral shiley dressed. secured in palce and fuctional ), Right Femoral: 2+ Wound/Incision: Yes: Clean/Dry Neurological: Yes: Alert, Oriented Psychiatric: Yes: Alert, Oriented Labs: CBC, BMP 03/10/17 09:30 03/09/17 05:10 INR, PTT INR 1.47 (0.82-1.09) H 03/08/17 15:05 Microbiology 03/08/17 14:50 Decubiti Gram Stain - Final 03/08/17 15:05 Blood - Peripheral Venous Blood Culture - Preliminary NO GROWTH OBTAINED AFTER 24 HOURS, INCUBATION TO CONTINUE FOR 4 DAYS. 03/08/17 15:05 Blood - Peripheral Venous Blood Culture - Preliminary NO GROWTH OBTAINED AFTER 24 HOURS, INCUBATION TO CONTINUE FOR 4 DAYS. - ....Imaging Chest X-ray: Image Reviewed (no sign of additional portion of right permcath following removal 03/09) Problem List - Problems (1) End stage kidney disease Assessment/Plan: 67yo male MMP including ESRD on HD, tunneled catheter accidentally pulled out, Temporary left femoral shiley placed inthe ED. Informed Consent obtained for placement of femoral hemodialysis catheter. Tmax 100.6, being treated for UTI Will follow if patient is admitted to check the site Permcath removed yesterday at bedside, cxr show no FB post removal. Scheduled for permcath today This patient is in guarded condition in the ICU. Time spent reviewing chart, examining patient, talking with providers and/or family and documentation is 35 minutes Code(s): N18.6 - END STAGE RENAL DISEASE (2) Acute on chronic renal failure Code(s): N17.9 - ACUTE KIDNEY FAILURE, UNSPECIFIED; N18.9 - CHRONIC KIDNEY DISEASE, UNSPECIFIED (3) CHF (congestive heart failure) Code(s): I50.9 - HEART FAILURE, UNSPECIFIED (4) COPD (chronic obstructive pulmonary disease) Code(s): J44.9 - CHRONIC OBSTRUCTIVE PULMONARY DISEASE, UNSPECIFIED (5) Sacral decubitus ulcer, stage III Code(s): L89.153 - PRESSURE ULCER OF SACRAL REGION, STAGE 3
[2017-03-10] MEDS ORDERED: MIDAZOLAM HCL 2 MG/2 ML SINGLE DOSE VIAL ONE (10:26)
[2017-03-10] MEDS ORDERED: PROPOFOL 20 ML ONE (10:26)
--- NOTE | 2017-03-10 10:42 | PN ---
Progress Note, Physician Chief Complaint: no complaints pt awaiting to go to OR for permacath - Current Medication List Current Medications: Active Medications Acetaminophen (Tylenol Suppository -) 650 mg [place] Q6H PRN PRN Reason: FEVER OR PAIN Last Admin: 03/10/17 04:03 Dose: 650 mg Epoetin Neftaly (Procrit -) 20,000 unit SQ ONCE ONE Stop: 03/10/17 13:50 Vancomycin HCl 750 mg/ (Dextrose) 250 mls @ 250 mls/hr IVPB TuThSa AKOSUA Piperacillin Sod/Tazobactam (Sod 2.25 gm/ Dextrose) 50 mls @ 100 mls/hr IVPB Q8H-IV AKOSUA Last Admin: 03/10/17 09:16 Dose: 100 mls/hr - Objective Vital Signs: Vital Signs Temperature 99.2 F 03/10/17 06:00 Pulse Rate 94 H 03/10/17 10:21 Respiratory Rate 18 03/10/17 06:00 Blood Pressure 102/73 03/10/17 06:00 O2 Sat by Pulse Oximetry (%) 99 03/10/17 10:21 Constitutional: Yes: No Distress, Calm Cardiovascular: Yes: Regular Rate and Rhythm Respiratory: Yes: Diminished Gastrointestinal: Yes: Normal Bowel Sounds, Soft. No: Distention, Tenderness Edema: Yes Edema: LLE: Trace, RLE: Trace Labs: CBC, BMP 03/10/17 09:30 03/09/17 05:10 INR, PTT INR 1.47 (0.82-1.09) H 03/08/17 15:05 Problem List - Problems (1) CHF (congestive heart failure) Code(s): I50.9 - HEART FAILURE, UNSPECIFIED (2) End stage kidney disease Code(s): N18.6 - END STAGE RENAL DISEASE (3) HTN (hypertension) Code(s): I10 - ESSENTIAL (PRIMARY) HYPERTENSION (4) Sepsis Code(s): A41.9 - SEPSIS, UNSPECIFIED ORGANISM Assessment/Plan PLAN Anemia --s/p transfusion PRBC -- GI eval--pt refused interventions -- monitor CBC ESRD on HD -- HD yesterday -- for permacath placement today Sepsis -- due to UTI, sacral decubiti -- wound care eval -- ID eval noted -- IV antibiotics -- Cultures - blood negative, urine cultures positive for lactose ferm negative bacilli Hypotension -- ICU /Critical care eval noted -- not on pressors -- transfuse PRBC as needed DVT prophylaxis -- SCD
[2017-03-10] MEDS ORDERED: LIDOCAINE HCL/PF 2% SDV 5ML VIAL ONE (11:29)
--- NOTE | 2017-03-10 11:42 | OP ---
Operative Note - Note: Operative Date: 03/10/17 Pre-Operative Diagnosis: ESRD Operation: Insertion of permacath Post-Operative Diagnosis: Same as Pre-op Surgeon: Tonio Longoria Anesthesia: Fractional Estimated Blood Loss (mls): 10 Operative Report Dictated: Yes
[2017-03-10] MEDS ORDERED: LIDOCAINE HCL 1%, 10 MG/ML (20ML VIAL) INF ONE (11:46)
[2017-03-10] MEDS ORDERED: ACETAMINOPHEN 650 MG SUPP.RECT PR PRN (12:03)
[2017-03-10] MEDS ORDERED: ONDANSETRON 4 MG/2 ML VIAL ONE (12:52)
[2017-03-10] MEDS ORDERED: ONDANSETRON 4 MG/2 ML VIAL IVPUSH ONE (12:57)
[2017-03-10] MEDS ORDERED: EPOETIN ALFA 10,000 UNIT/1 ML VIAL SQ ONE (13:49)
--- NOTE | 2017-03-10 14:40 | EKG ---
Test Reason : Blood Pressure : / mmHG Vent. Rate : 115 BPM Atrial Rate : 115 BPM P-R Int : 124 ms QRS Dur : 102 ms QT Int : 340 ms P-R-T Axes : 061 050 120 degrees QTc Int : 470 ms SINUS TACHYCARDIA LEFT VENTRICULAR HYPERTROPHY WITH REPOLARIZATION ABNORMALITY ABNORMAL ECG WHEN COMPARED WITH ECG OF 28-FEB-2017 14:35, PREMATURE VENTRICULAR COMPLEXES ARE NO LONGER PRESENT PREMATURE SUPRAVENTRICULAR COMPLEXES ARE NO LONGER PRESENT VENT. RATE HAS INCREASED Confirmed by JARED FELIZ, GRACE ([id number]) on 03/10/2017 2:39:31 PM Referred By: Confirmed By:GRACE COLEMAN MD
[2017-03-10] MEDS ORDERED: EPOETIN ALFA 20,000 UNIT/1 ML VIAL SQ ONE (15:30)
[2017-03-10] MEDS ORDERED: VANCOMYCIN 500 MG in DEXTROSE 5%-WATER - 100 ML IVPB ONE (16:00)
[2017-03-10] MEDS ORDERED: PT OWN MED DRAWER 7, Y5N ONE ×2 (16:55→19:13)
--- NOTE | 2017-03-10 18:34 | PN ---
Progress Note, Physician Chief Complaint: Infectious Disease f/u: History of Present Illness: Pt had permacath placed, currently receiving dialysis. States he feels "better" . Currently afebrile, tachycardic. Denies having any specific complaints. - Current Medication List Current Medications: Active Medications Acetaminophen (Tylenol Suppository -) 650 mg [place] Q6H PRN PRN Reason: FEVER OR PAIN Fentanyl (Sublimaze Injection -) 50 mcg IVPUSH [id number] PRN PRN Reason: PAIN Piperacillin Sod/Tazobactam (Sod 2.25 gm/ Dextrose) 50 mls @ 100 mls/hr IVPB Q8H-IV AKOSUA Vancomycin HCl 750 mg/ (Dextrose) 250 mls @ 250 mls/hr IVPB TuThSa AKOSUA - Objective Vital Signs: Vital Signs Temperature 97.4 F L 03/10/17 14:40 Pulse Rate 111 H 03/10/17 17:45 Respiratory Rate 18 03/10/17 17:45 Blood Pressure 119/75 03/10/17 17:45 O2 Sat by Pulse Oximetry (%) 98 03/10/17 13:00 Constitutional: Yes: No Distress Neck: Yes: Supple Cardiovascular: Yes: Tachycardia Respiratory: Yes: Regular Gastrointestinal: Yes: Normal Bowel Sounds, Soft Musculoskeletal: Yes: WNL Extremities: Yes: WNL Integumentary: Yes: Pressure Ulcer (Sacral and Ischial deep DUs with drainage, undermining) Neurological: Yes: Alert Psychiatric: Yes: Alert Labs: CBC, BMP 03/10/17 09:30 03/09/17 05:10 INR, PTT INR 1.47 (0.82-1.09) H 03/08/17 15:05 Microbiology 03/08/17 15:05 Blood - Peripheral Venous Blood Culture - Preliminary NO GROWTH OBTAINED AFTER 48 HOURS, INCUBATION TO CONTINUE FOR 3 DAYS. 03/08/17 15:05 Blood - Peripheral Venous Blood Culture - Preliminary NO GROWTH OBTAINED AFTER 48 HOURS, INCUBATION TO CONTINUE FOR 3 DAYS. 03/08/17 14:50 Decubiti Gram Stain - Final 03/08/17 14:50 Decubiti Wound Culture - Preliminary Lactose Fermenting Neg Bacilli Lactose Fermenting Neg Bacilli#2 Beta Hem Streptococcus Group G Diphtheroid/Corynebacterium Staphylococcus Coagulase Neg 03/08/17 17:50 Urine - Urine Clean Catch Urine Culture - Preliminary Lactose Fermenting Neg Bacilli Lactose Fermenting Neg Bacilli#2 Problem List - Problems (1) CHF (congestive heart failure) Code(s): I50.9 - HEART FAILURE, UNSPECIFIED (2) COPD (chronic obstructive pulmonary disease) Code(s): J44.9 - CHRONIC OBSTRUCTIVE PULMONARY DISEASE, UNSPECIFIED (3) Dialysis patient Code(s): Z99.2 - DEPENDENCE ON RENAL DIALYSIS (4) HTN (hypertension) Code(s): I10 - ESSENTIAL (PRIMARY) HYPERTENSION (5) Sepsis Code(s): A41.9 - SEPSIS, UNSPECIFIED ORGANISM (6) Anemia Code(s): D64.9 - ANEMIA, UNSPECIFIED Qualifiers: Anemia type: unspecified type Qualified Code(s): D64.9 - Anemia, unspecified (7) Diabetes Code(s): E11.9 - TYPE 2 DIABETES MELLITUS WITHOUT COMPLICATIONS Qualifiers: (8) UTI (urinary tract infection) Code(s): N39.0 - URINARY TRACT INFECTION, SITE NOT SPECIFIED Assessment/Plan This is a 67 y.o. male with PMH of HTN, DM, ESRD on HD, anemia, COPD, CHF admitted because his permacath came out and fever. Pt also has Sacral and Ischial DUs with discharge, and bacteriuria. He is an unreliable source of history. He is now with a new permacath receiving HD. - cont. current antibiotics - blood cultures negative - f/u isolates of wound and urine cultures - suggest imaging of sacrum/hips monitor closely cc time: 35 min
--- NOTE | 2017-03-10 18:48 | PN ---
Progress Note (short form) - Note Progress Note: Renal follow up for ESRD on HD Pt seen and examined in the ICU during dialysis BP ok, but HR ~130 toward the end of dialysis pt tolerated about 3kg UF pt without complaints no sob, chest pain, fever, chills s/p permacath placement today Vital Signs Temperature 97.4 F L 03/10/17 14:40 Pulse Rate 111 H 03/10/17 17:45 Respiratory Rate 18 03/10/17 17:45 Blood Pressure 119/75 03/10/17 17:45 O2 Sat by Pulse Oximetry (%) 98 03/10/17 13:00 Intake & Output 03/07/17 03/08/17 03/09/17 03/10/17 23:59 23:59 23:59 23:59 Intake Total 1280 400 Balance 1280 400 Weight 90.718 kg 70.443 kg 69.428 kg NAD awake and alet tachycardic dec Bs lung bases No LE edema rigth IJ permacath CBC, BMP 03/10/17 09:30 03/09/17 05:10 Current Medications Acetaminophen (Tylenol Suppository -) 650 mg OR Q6H PRN PRN Reason: FEVER OR PAIN Fentanyl (Sublimaze Injection -) 50 mcg IVPUSH [id number] PRN PRN Reason: PAIN Piperacillin Sod/Tazobactam (Sod 2.25 gm/ Dextrose) 50 mls @ 100 mls/hr IVPB Q8H-IV [facility] Vancomycin HCl 750 mg/ (Dextrose) 250 mls @ 250 mls/hr IVPB TuThSa [facility] 67 year old Gentleman with PMHx of ESRD on HD, IDDM, Hypertension, chornic anemia who presented with dislodged dialysis catheter. #ESRD with dislodged dialysis catheter s/p new catheter placement today tolerated HD well via new catheter Dose all meds for intermittent HD Renal Diet Fluid restriction of 1.2L #Anemia s/p PRBC transfusion will continue WILY with HD #Infected Sacral wounds continue Abx as per ID Got Vanco 500mg with HD today Thank you Will follow Dominick Vanegas DO
--- NOTE | 2017-03-10 20:05 | PN ---
Progress Note (short form) - Note Progress Note: Vascular Surgery Vein mapping ordered for AVF placement. Toino Longoria DO
[2017-03-11] MEDS: PIPERACILLIN/TAZOB 2.25 GM 2.25 GM in DEXTROSE 5%-WATER - 50 ML IVPB SCH ×3 (01:28→17:34)
[2017-03-11 06:28] LABS: MCH 26.6 pg (25.7-33.7); MCHC 32.2 g/dl (32.0-35.9); MEAN CELL VOLUME 82.6 fl (80-96); MEAN PLT VOLUME 6.8 fl (7.5-11.1); PLATELET COUNT 275 K/MM3 (134-434); RDW 18.1 % (11.9-15.9); WHITE BLOOD COUNT 6.5 K/mm3 (4.0-10.0)
[2017-03-11 06:52] LABS: ANION GAP 8 (8-16); CALCIUM 7.8 mg/dL (8.5-10.1); CO2 30 mmol/L (21-32); GLUCOSE,RANDOM 155 mg/dL (74-106)
[2017-03-11 06:54] LABS: CREATININE 3.7 mg/dL (0.7-1.3)
--- NOTE | 2017-03-11 07:33 | PN ---
Progress Note, Physician Chief Complaint: disloged permcath History of Present Illness: 67 yo male PMH HTN, DM, CHF, COPD, ESRD on HD whose dialysis catheter was accidentally pulled out today. He is scheduled for HD tonight and now being treated for a urosepsis in the ER. He is on IV antibiotics, Otherwise a poor historian. s/p left femoral shiley placement in ED used for dialysis, scheduled for a permcath today - Current Medication List Current Medications: Active Medications Acetaminophen (Tylenol Suppository -) 650 mg [place] Q6H PRN PRN Reason: FEVER OR PAIN Fentanyl (Sublimaze Injection -) 50 mcg IVPUSH [id number] PRN PRN Reason: PAIN Piperacillin Sod/Tazobactam (Sod 2.25 gm/ Dextrose) 50 mls @ 100 mls/hr IVPB Q8H-IV [facility] Last Admin: 03/11/17 01:28 Dose: 100 mls/hr Vancomycin HCl 750 mg/ (Dextrose) 250 mls @ 250 mls/hr IVPB TuThSa [facility] - Objective Vital Signs: Vital Signs Temperature 98.4 F 03/11/17 04:00 Pulse Rate 76 03/11/17 04:00 Respiratory Rate 16 03/11/17 04:00 Blood Pressure 93/52 03/11/17 04:00 O2 Sat by Pulse Oximetry (%) 98 03/10/17 20:00 Vital Signs Period Temp Pulse Resp BP Sys/Vogt Pulse Ox Last 24 Hr 97.4 F-99.6 F 76-124 16-25 90-124/48-78 98-100 Labs: CBC, BMP 03/11/17 05:00 03/11/17 05:00 INR, PTT INR 1.47 (0.82-1.09) H 03/08/17 15:05 Problem List - Problems (1) End stage kidney disease Assessment/Plan: 67yo male MMP including ESRD on HD, tunneled catheter accidentally pulled out, Temporary left femoral shiley placed inthe ED. Informed Consent obtained for placement of femoral hemodialysis catheter. Tmax 100.6, being treated for UTI Will follow if patient is admitted to check the site Permcath removed yesterday at bedside, cxr show no FB post removal. Will remove femoral shiley This patient is in guarded condition in the ICU. Time spent reviewing chart, examining patient, talking with providers and/or family and documentation is 35 minutes Code(s): N18.6 - END STAGE RENAL DISEASE (2) Acute on chronic renal failure Code(s): N17.9 - ACUTE KIDNEY FAILURE, UNSPECIFIED; N18.9 - CHRONIC KIDNEY DISEASE, UNSPECIFIED (3) CHF (congestive heart failure) Code(s): I50.9 - HEART FAILURE, UNSPECIFIED (4) COPD (chronic obstructive pulmonary disease) Code(s): J44.9 - CHRONIC OBSTRUCTIVE PULMONARY DISEASE, UNSPECIFIED (5) Sacral decubitus ulcer, stage III Code(s): L89.153 - PRESSURE ULCER OF SACRAL REGION, STAGE 3
--- NOTE | 2017-03-11 07:49 | OP ---
DATE OF OPERATION: 03/10/2017 PREOPERATIVE DIAGNOSIS: End-stage renal disease. POSTOPERATIVE DIAGNOSIS: End-stage renal disease. PROCEDURE: Insertion of PermCath. SURGEON: Tonio Hinson DO ANESTHESIA: Fractional. BLOOD LOSS: 10 mL INDICATION FOR PROCEDURE: The patient is a 67-year-old male who comes in to the ER with a PermCath that was pulled out and now needs a new PermCath. Vascular Surgery was consulted for PermCath placement. Patient was consented for the procedure, understanding all risks, benefits, and alternatives, then taken to the operating room. DESCRIPTION OF PROCEDURE: Once in the operating room, he was laid on the operating table in supine manner, and the area of the right neck and chest were prepped and draped in a sterile surgical manner. We then went ahead and, under ultrasound guidance, visualized the right internal jugular vein, and 10 mL of % was injected there. We then took our Micropuncture needle and punctured the right internal jugular vein, and a Micropuncture wire was inserted. Micropuncture sheath was inserted and a 0.035 floppy guidewire was inserted. We then placed 10 mL of lidocaine 1% above and below the clavicle. We then used a number-11 blade and made a 1-cm incision at the puncture site. Using a 15 blade, we made a 1-cm incision below the clavicle. We then tunneled the PermCath up to the puncture site. We then placed our breakaway sheath over the guidewire into the vein under fluoroscopy, and the cannula and guidewire were removed. Catheter was placed inside the sheath. Sheath was broken away as the catheter was placed inside the vein. Neck of the catheter was nice and smooth. Tip of the catheter was located outside the right atrium. We then rita back on each port of the catheter, and there was good flow. Heparinized saline was injected, and 2000 units of IV heparin were injected. Next, 4-0 Biosyn was used, and 2 simple sutures were placed at the puncture site, 3-0 nylon used, and the catheter was attached to the skin. Biopatch, Steri-Strips, 4 x 4, and Tegaderm were placed. The patient tolerated the procedure with no complication. The patient was transferred to PACU in a stable condition where chest x-ray will be obtained. TONIO HINSON DO ENGINEERING DEPARTMENT CHAIR/[id number]
[2017-03-11] MEDS ORDERED: VANCOMYCIN 750 MG in DEXTROSE 5%-WATER - 250 ML IVPB SCH (10:00)
[2017-03-11] MEDS ORDERED: VANCOMYCIN 500 MG in DEXTROSE 5%-WATER - 100 ML IVPB SCH (10:00)
--- NOTE | 2017-03-11 10:22 | PN ---
Progress Note, Physician Chief Complaint: no complaints - Current Medication List Current Medications: Active Medications Acetaminophen (Tylenol Suppository -) 650 mg [place] Q6H PRN PRN Reason: FEVER OR PAIN Fentanyl (Sublimaze Injection -) 50 mcg IVPUSH [id number] PRN PRN Reason: PAIN Piperacillin Sod/Tazobactam (Sod 2.25 gm/ Dextrose) 50 mls @ 100 mls/hr IVPB Q8H-IV [facility] Last Admin: 03/11/17 01:28 Dose: 100 mls/hr Vancomycin HCl 750 mg/ (Dextrose) 250 mls @ 250 mls/hr IVPB Tu[facility] - Objective Vital Signs: Vital Signs Temperature 98.4 F 03/11/17 04:00 Pulse Rate 76 03/11/17 04:00 Respiratory Rate 16 03/11/17 04:00 Blood Pressure 93/52 03/11/17 04:00 O2 Sat by Pulse Oximetry (%) 98 03/10/17 20:00 Constitutional: Yes: No Distress, Calm Cardiovascular: Yes: Regular Rate and Rhythm Respiratory: Yes: Diminished Gastrointestinal: Yes: Normal Bowel Sounds, Soft. No: Distention, Tenderness Edema: No Labs: CBC, BMP 03/11/17 05:00 03/11/17 05:00 INR, PTT INR 1.47 (0.82-1.09) H 03/08/17 15:05 Problem List - Problems (1) CHF (congestive heart failure) Code(s): I50.9 - HEART FAILURE, UNSPECIFIED (2) End stage kidney disease Code(s): N18.6 - END STAGE RENAL DISEASE (3) HTN (hypertension) Code(s): I10 - ESSENTIAL (PRIMARY) HYPERTENSION (4) Sepsis Code(s): A41.9 - SEPSIS, UNSPECIFIED ORGANISM Assessment/Plan PLAN Anemia --s/p transfusion PRBC -- GI eval--pt refused interventions -- monitor CBC-stable ESRD on HD -- HD per Renal -- s/p permacath placement Sepsis -- due to UTI, sacral decubiti -- xrays of hips and sacrum ordered -- wound care eval -- ID eval noted -- IV antibiotics -- Cultures - blood negative, urine cultures positive for lactose ferm negative bacilli Hypotension -- ICU /Critical care eval noted -- not on pressors -- transfuse PRBC as needed DVT prophylaxis -- SCD
[2017-03-11] MEDS: VANCOMYCIN 750 MG in DEXTROSE 5%-WATER - 250 ML IVPB SCH (12:32)
--- NOTE | 2017-03-11 13:15 | PN ---
Progress Note (short form) - Note Progress Note: Renal follow up for ESRD on HD Pt seen and examined at the bedside awake and alert no acute complaints wants to leave the hospital no sob, chest pain, fever, chills s/p dialysis yesterday Vital Signs Temperature 98.4 F 03/11/17 04:00 Pulse Rate 76 03/11/17 04:00 Respiratory Rate 16 03/11/17 04:00 Blood Pressure 93/52 03/11/17 04:00 O2 Sat by Pulse Oximetry (%) 98 03/10/17 20:00 Intake & Output 03/08/17 03/09/17 03/10/17 03/11/17 23:59 23:59 23:59 23:59 Intake Total 1280 450 Balance 1280 450 Weight 90.718 kg 70.443 kg 69.428 kg 68.991 kg NAD awake and alet RRR dec Bs lung bases No LE edema rigth IJ permacath CBC, BMP 03/11/17 05:00 03/11/17 05:00 Laboratory Tests 12/03/16 12/04/16 12/04/16 13:21 10:20 10:20 Calcium 7.9 L LD Total Pending Stool Occult Blood Negative 12/17/16 03/11/17 12:54 05:00 Calcium 8.3 L 7.8 L LD Total Stool Occult Blood Current Medications Acetaminophen (Tylenol Suppository -) 650 mg [place] Q6H PRN PRN Reason: FEVER OR PAIN Fentanyl (Sublimaze Injection -) 50 mcg IVPUSH [id number] PRN PRN Reason: PAIN Piperacillin Sod/Tazobactam (Sod 2.25 gm/ Dextrose) 50 mls @ 100 mls/hr IVPB Q8H-IV [facility] Last Admin: 03/11/17 01:28 Dose: 100 mls/hr Vancomycin HCl 750 mg/ (Dextrose) 250 mls @ 250 mls/hr IVPB TuThSa [facility] 67 year old Gentleman with PMHx of ESRD on HD, IDDM, Hypertension, chornic anemia who presented with dislodged dialysis catheter. #ESRD with dislodged dialysis catheter s/p dialysis yesterday will re-evalulate for dialysis tomorrow regular HD schedule is TTS for possible AVF placement by vascular Sx #Anemia s/p PRBC transfusion will continue WILY with HD #Infected Sacral wounds continue Abx as per ID s/p Vanco with Hd yesterday Dominick Vanegas DO
--- NOTE | 2017-03-11 13:57 | PN ---
Progress Note (short form) - Note Progress Note: Anesthesia POD#1 S/P Permacath Insertion under MAC VSS,doing well. No complaints now. Saritha Whyte MD.
[2017-03-11] MEDS ORDERED: MEROPENEM 500 MG VIAL (RESTRICTED TO ID) IVPB SCH (19:00)
[2017-03-11] MEDS ORDERED: PT OWN MED DRAWER 7, Y5N ONE (20:06)
--- NOTE | 2017-03-11 21:02 | PN ---
Progress Note (short form) - Note Progress Note: Vascular Surgery Pt seen and examined. Left femoral shiley removed. Vein mapping reviewed -- pt has good cephalic vein in right arm. Will do right avf on . Please medically clear. Tonio Longoria DO
[2017-03-11] MEDS: MEROPENEM 500 MG PUSH 500 MG/10 ML DISP.SYRIN IVPUSH SCH (21:16)
[2017-03-12] MEDS ORDERED: MAG HYDROX/AL HYDROX/SIMETH 30 ML UNIT-DOSE CUP PO ONE (00:15)
[2017-03-12] MEDS: MEROPENEM 500 MG PUSH 500 MG/10 ML DISP.SYRIN IVPUSH SCH ×2 (06:04→21:34)
[2017-03-12 06:23] LABS: MCHC 32.6 g/dl (32.0-35.9); MEAN CELL VOLUME 82.6 fl (80-96); PLATELET COUNT 308 K/MM3 (134-434); RDW 17.8 % (11.9-15.9); WHITE BLOOD COUNT 7.5 K/mm3 (4.0-10.0)
[2017-03-12 06:52] LABS: ANION GAP 9 (8-16); CALCIUM 7.7 mg/dL (8.5-10.1); CO2 28 mmol/L (21-32); GLUCOSE,RANDOM 249 mg/dL (74-106); MAGNESIUM 1.9 mg/dL (1.8-2.4)
[2017-03-12 06:53] LABS: CREATININE 4.5 mg/dL (0.7-1.3); PHOSPHOROUS 2.8 mg/dL (2.5-4.9)
--- NOTE | 2017-03-12 08:06 | PN ---
Progress Note, Physician Chief Complaint: disloged permcath History of Present Illness: 67 yo male PMH HTN, DM, CHF, COPD, ESRD on HD whose dialysis catheter was accidentally pulled out today. He is scheduled for HD tonight and now being treated for a urosepsis in the ER. He is on IV antibiotics, Otherwise a poor historian. s/p left femoral shiley removal yesterday by Dr. Longoria. stable, no complaints. - Current Medication List Current Medications: Active Medications Acetaminophen (Tylenol Suppository -) 650 mg [place] Q6H PRN PRN Reason: FEVER OR PAIN Fentanyl (Sublimaze Injection -) 50 mcg IVPUSH [id number] PRN PRN Reason: PAIN Vancomycin HCl 750 mg/ (Dextrose) 250 mls @ 250 mls/hr IVPB TuThSa [facility] Last Admin: 03/11/17 12:32 Dose: 250 mls/hr Meropenem (Merrem (Restricted To Id) -) 500 mg in 10 mls @ 120 mls/hr IVPUSH Q12H [facility] Last Admin: 03/12/17 06:04 Dose: 120 mls/hr - Objective Vital Signs: Vital Signs Temperature 98.2 F 03/12/17 05:49 Pulse Rate 100 H 03/12/17 05:49 Respiratory Rate 20 03/12/17 05:49 Blood Pressure 101/74 03/12/17 05:49 O2 Sat by Pulse Oximetry (%) 98 03/11/17 21:00 Vital Signs Period Temp Pulse Resp BP Sys/Vogt Pulse Ox Last 24 Hr 98.2 F-98.5 F 72-100 18-20 100-123/66-74 98-99 Constitutional: Yes: No Distress, Calm, Cachectic Eyes: Yes: Conjunctiva Clear, EOM Intact HENT: Yes: Atraumatic, Normocephalic Neck: Yes: Supple, Trachea Midline Cardiovascular: Yes: Regular Rate and Rhythm, S1, S2. No: Murmur Respiratory: Yes: Regular, CTA Bilaterally, Other (right upper chest permcath dressed) Gastrointestinal: Yes: Normal Bowel Sounds, Soft ...Rectal Exam: Yes: Deferred Genitourinary: No: CVA Tenderness - Left, CVA Tenderness - Right Musculoskeletal: No: Muscle Pain, Muscle Weakness Extremities: Yes: Other (left femoral groin site was clean and dry, no bleeding no hematoma) Edema: No Peripheral Pulses WNL: Yes Peripheral Pulses: Left Radial: 2+, Right Radial: 2+, Left Doralis Pedis: 2+, Right Dorsalis Pedis: 2+, Left Femoral: 2+, Right Femoral: 2+ Wound/Incision: Yes: Clean/Dry (left groin) Neurological: Yes: Alert, Oriented Psychiatric: Yes: Alert, Oriented Labs: CBC, BMP 03/12/17 06:00 03/12/17 06:00 INR, PTT INR 1.47 (0.82-1.09) H 03/08/17 15:05 Problem List - Problems (1) End stage kidney disease Assessment/Plan: 67yo male MMP including ESRD on HD, tunneled catheter accidentally pulled out, Temporary left femoral shiley placed inthe ED. s/p removal of left femoral shiley, site has no bleeding no hematoma. No further general surgery intervention is required, Thank you for the opportunity to participate in the care of this patient. This patient remains in improved but guarded condition in the ICU. Time spent reviewing chart, examining patient, talking with providers and/or family and documentation is 35 minutes Code(s): N18.6 - END STAGE RENAL DISEASE (2) Acute on chronic renal failure Code(s): N17.9 - ACUTE KIDNEY FAILURE, UNSPECIFIED; N18.9 - CHRONIC KIDNEY DISEASE, UNSPECIFIED (3) CHF (congestive heart failure) Code(s): I50.9 - HEART FAILURE, UNSPECIFIED (4) COPD (chronic obstructive pulmonary disease) Code(s): J44.9 - CHRONIC OBSTRUCTIVE PULMONARY DISEASE, UNSPECIFIED (5) Sacral decubitus ulcer, stage III Code(s): L89.153 - PRESSURE ULCER OF SACRAL REGION, STAGE 3
--- NOTE | 2017-03-12 10:10 | PN ---
Progress Note, Physician Chief Complaint: no complaints no dizziness or palpitations no SOB - Current Medication List Current Medications: Active Medications Acetaminophen (Tylenol Suppository -) 650 mg [place] Q6H PRN PRN Reason: FEVER OR PAIN Fentanyl (Sublimaze Injection -) 50 mcg IVPUSH [id number] PRN PRN Reason: PAIN Vancomycin HCl 750 mg/ (Dextrose) 250 mls @ 250 mls/hr IVPB TuThSa [facility] Last Admin: 03/11/17 12:32 Dose: 250 mls/hr Meropenem (Merrem (Restricted To Id) -) 500 mg in 10 mls @ 120 mls/hr IVPUSH Q12H [facility] Last Admin: 03/12/17 06:04 Dose: 120 mls/hr - Objective Vital Signs: Vital Signs Temperature 98.2 F 03/12/17 05:49 Pulse Rate 100 H 03/12/17 05:49 Respiratory Rate 20 03/12/17 05:49 Blood Pressure 101/74 03/12/17 05:49 O2 Sat by Pulse Oximetry (%) 98 03/11/17 21:00 Constitutional: Yes: No Distress, Calm Cardiovascular: Yes: Regular Rate and Rhythm Respiratory: Yes: Diminished Gastrointestinal: Yes: Normal Bowel Sounds, Soft. No: Distention, Tenderness Musculoskeletal: Yes: Other (rt chest wall permacath) Edema: No Labs: CBC, BMP 03/12/17 06:00 03/12/17 06:00 INR, PTT INR 1.47 (0.82-1.09) H 03/08/17 15:05 Problem List - Problems (1) CHF (congestive heart failure) Code(s): I50.9 - HEART FAILURE, UNSPECIFIED (2) End stage kidney disease Code(s): N18.6 - END STAGE RENAL DISEASE (3) HTN (hypertension) Code(s): I10 - ESSENTIAL (PRIMARY) HYPERTENSION (4) Sepsis Code(s): A41.9 - SEPSIS, UNSPECIFIED ORGANISM Assessment/Plan PLAN Anemia --s/p transfusion PRBC -- GI eval--pt refused interventions -- monitor CBC-stable, Hb usually 8 ESRD on HD -- HD per Renal -- s/p permacath placement chest wall -- femoral shiley removed -- for Rt AVG tomorrow Sepsis -- due to UTI, sacral decubiti -- xrays of hips and sacrum ordered -- wound care eval -- ID eval noted -- IV antibiotics -- Cultures - blood negative, urine cultures positive for lactose ferm negative bacilli Hypotension -- BP better -- resume Metoprolol as he is tachycardic -- transfuse PRBC as needed Afebrile, no elevated WBC, no positive blood cultures-- he is medically cleared for AVG placement DVT prophylaxis -- SCD
--- NOTE | 2017-03-12 10:24 | PN ---
Progress Note (short form) - Note Progress Note: Vascular Surgery For right avf miles. NPO past midnight. Pt for HD today. Tonio Longoria DO
[2017-03-12] MEDS ORDERED: METOPROLOL TARTRATE 25 MG TABLET (FP) PO ONE (10:45)
--- NOTE | 2017-03-12 11:19 | PN ---
Progress Note (short form) - Note Progress Note: Renal follow up for ESRD on HD Pt seen and examined in Tele no acute complaints denies any sob, chest pain, abd pain, N/V/D Vital Signs Temperature 98.0 F 03/12/17 10:00 Pulse Rate 122 H 03/12/17 10:00 Respiratory Rate 20 03/12/17 10:00 Blood Pressure 125/66 03/12/17 10:00 O2 Sat by Pulse Oximetry (%) 97 03/12/17 10:00 Intake & Output 03/09/17 03/10/17 03/11/17 03/12/17 23:59 23:59 23:59 23:59 Intake Total 1280 450 930 520 Balance 1280 450 930 520 Weight 70.443 kg 69.428 kg 68.991 kg 71.668 kg NAD awake and alet RRR dec Bs lung bases No LE edema rigth IJ permacath CBC, BMP 03/12/17 06:00 03/12/17 06:00 Current Medications Acetaminophen (Tylenol Suppository -) 650 mg [place] Q6H PRN PRN Reason: FEVER OR PAIN Acetaminophen (Tylenol -) 650 mg PO Q6H PRN PRN Reason: FEVER OR PAIN Albuterol Sulfate (Ventolin 0.083% Nebulizer Soln -) 1 amp NEB QIDR [facility] Calcium Acetate (Phoslo -) 1,334 mg PO TIDCM [facility] Epoetin Neftaly (Epogen -) 20,000 units IVPUSH ONCE ONE Stop: 03/12/17 10:32 Fentanyl (Sublimaze Injection -) 50 mcg IVPUSH [id number] PRN PRN Reason: PAIN Finasteride (Proscar -) 5 mg PO DAILY [facility] Vancomycin HCl 750 mg/ (Dextrose) 250 mls @ 250 mls/hr IVPB TuThSa [facility] Last Admin: 03/11/17 12:32 Dose: 250 mls/hr Meropenem (Merrem (Restricted To Id) -) 500 mg in 10 mls @ 120 mls/hr IVPUSH Q12H [facility] Last Admin: 03/12/17 06:04 Dose: 120 mls/hr Vancomycin HCl 1,000 mg/ (Dextrose) 250 mls @ 250 mls/hr IVPB ONCE ONE PRN Reason: Protocol Stop: 03/12/17 11:33 Insulin Detemir (Levemir Vial) 8 units SQ BIDAC [facility] Metoprolol Succinate (Toprol Xl -) 25 mg PO BID [facility] Mirtazapine (Remeron -) 15 mg PO HS [facility] Sertraline HCl (Zoloft -) 50 mg PO DAILY [facility] 67 year old Gentleman with PMHx of ESRD on HD, IDDM, Hypertension, chornic anemia who presented with dislodged dialysis catheter. #ESRD with dislodged dialysis catheter for HD today via tunneled Hd catheter for AVF placement by vascular tomorrow #Anemia s/p PRBC transfusion will continue WILY with HD #Infected Sacral wounds continue Abx as per ID will redose vanco with HD based on levels Dominick Vanegas DO
[2017-03-12] MEDS: CALCIUM ACETATE 667 MG CAPSULE (FP) PO SCH ×2 (12:39→16:57)
[2017-03-12] MEDS ORDERED: INSULIN (NOVOLOG) ASPART 100 UNITS/ML 10ML VIAL ONE (16:49)
[2017-03-12] MEDS: INSULIN DETEMIR 100 UNITS/ML MDV SQ SCH (16:57)
--- NOTE | 2017-03-12 18:59 | PN ---
Progress Note, Physician Chief Complaint: Infectious Disease f/u History of Present Illness: Pt states he feels ok. No shortness of breath, chest pain, fever,chills, abd pain/n/v/d. - Current Medication List Current Medications: Active Medications Acetaminophen (Tylenol Suppository -) 650 mg [place] Q6H PRN PRN Reason: FEVER OR PAIN Acetaminophen (Tylenol -) 650 mg PO Q6H PRN PRN Reason: FEVER OR PAIN Albuterol Sulfate (Ventolin 0.083% Nebulizer Soln -) 1 amp NEB QIDR [facility] Calcium Acetate (Phoslo -) 1,334 mg PO TIDCM [facility] Last Admin: 03/12/17 16:57 Dose: Not Given Epoetin Neftaly (Epogen -) 20,000 units IVPUSH ONCE ONE Stop: 03/12/17 10:32 Fentanyl (Sublimaze Injection -) 50 mcg IVPUSH [id number] PRN PRN Reason: PAIN Finasteride (Proscar -) 5 mg PO DAILY [facility] Vancomycin HCl 750 mg/ (Dextrose) 250 mls @ 250 mls/hr IVPB TuThSa [facility] Last Admin: 03/11/17 12:32 Dose: 250 mls/hr Meropenem (Merrem (Restricted To Id) -) 500 mg in 10 mls @ 120 mls/hr IVPUSH Q12H [facility] Last Admin: 03/12/17 06:04 Dose: 120 mls/hr Vancomycin HCl 1,000 mg/ (Dextrose) 250 mls @ 250 mls/hr IVPB ONCE ONE PRN Reason: Protocol Stop: 03/12/17 11:33 Insulin Detemir (Levemir Vial) 8 units SQ BIDAC [facility] Last Admin: 03/12/17 16:57 Dose: Not Given Metoprolol Succinate (Toprol Xl -) 25 mg PO BID [facility] Mirtazapine (Remeron -) 15 mg PO HS [facility] Sertraline HCl (Zoloft -) 50 mg PO DAILY [facility] - Objective Vital Signs: Vital Signs Temperature 98.6 F 03/12/17 14:00 Pulse Rate 104 H 03/12/17 14:00 Respiratory Rate 20 03/12/17 14:00 Blood Pressure 103/67 03/12/17 14:00 O2 Sat by Pulse Oximetry (%) 97 03/12/17 10:00 Constitutional: Yes: No Distress Neck: Yes: Supple Cardiovascular: Yes: Tachycardia Respiratory: Yes: CTA Bilaterally Gastrointestinal: Yes: Normal Bowel Sounds, Soft Integumentary: Yes: Pressure Ulcer (large Sacral/ Hip DUs with mild drainage) Labs: CBC, BMP 03/12/17 06:00 03/12/17 06:00 INR, PTT INR 1.47 (0.82-1.09) H 03/08/17 15:05 Microbiology 03/08/17 15:05 Blood - Peripheral Venous Blood Culture - Preliminary NO GROWTH OBTAINED AFTER 96 HOURS, INCUBATION TO CONTINUE FOR 1 DAYS. 03/08/17 15:05 Blood - Peripheral Venous Blood Culture - Preliminary NO GROWTH OBTAINED AFTER 96 HOURS, INCUBATION TO CONTINUE FOR 1 DAYS. 03/08/17 14:50 Decubiti Gram Stain - Final 03/08/17 14:50 Decubiti Wound Culture - Final Escherichia Coli Esbl Gage Maker Providencia Stuartii Beta Hem Streptococcus Group G Diphtheroid/Corynebacterium Staphylococcus Coagulase Neg 03/08/17 17:50 Urine - Urine Clean Catch Urine Culture - Final Escherichia Coli Esbl Gage Maker Escherichia Coli Esbl Gage Maker#2 Problem List - Problems (1) CHF (congestive heart failure) Code(s): I50.9 - HEART FAILURE, UNSPECIFIED (2) COPD (chronic obstructive pulmonary disease) Code(s): J44.9 - CHRONIC OBSTRUCTIVE PULMONARY DISEASE, UNSPECIFIED (3) Dialysis patient Code(s): Z99.2 - DEPENDENCE ON RENAL DIALYSIS (4) HTN (hypertension) Code(s): I10 - ESSENTIAL (PRIMARY) HYPERTENSION (5) Sepsis Code(s): A41.9 - SEPSIS, UNSPECIFIED ORGANISM (6) Anemia Code(s): D64.9 - ANEMIA, UNSPECIFIED Qualifiers: Anemia type: unspecified type Qualified Code(s): D64.9 - Anemia, unspecified (7) Diabetes Code(s): E11.9 - TYPE 2 DIABETES MELLITUS WITHOUT COMPLICATIONS Qualifiers: (8) UTI (urinary tract infection) Code(s): N39.0 - URINARY TRACT INFECTION, SITE NOT SPECIFIED Assessment/Plan Sepsis UTI - ESBL+ E. coli Infected Sacral/Hip DUs (no lytic lesions on plain xray) ESRD -- continue meropenem/vancomycin -- send Vancomycin trough - to be drawn before HD starts - cont. wound care currently appears stable
[2017-03-12] MEDS ORDERED: EPOETIN ALFA 20,000 UNIT/1 ML VIAL IVPUSH ONE (19:30)
[2017-03-12] MEDS: METOPROLOL SUCCINATE 25 MG TAB.SR.24H (FP) PO SCH (21:36)
[2017-03-12] MEDS ORDERED: VANCOMYCIN 1,000 MG in DEXTROSE 5%-WATER - 250 ML IVPB ONE (22:00)
[2017-03-13] MEDS: MEROPENEM 500 MG PUSH 500 MG/10 ML DISP.SYRIN IVPUSH SCH ×2 (06:14→18:12)
[2017-03-13] MEDS: INSULIN DETEMIR 100 UNITS/ML MDV SQ SCH ×2 (06:14→18:12)
[2017-03-13 06:35] LABS: MCH 27.3 pg (25.7-33.7); MCHC 32.7 g/dl (32.0-35.9); MEAN CELL VOLUME 83.7 fl (80-96); MEAN PLT VOLUME 7.1 fl (7.5-11.1); PLATELET COUNT 284 K/MM3 (134-434); RDW 17.6 % (11.9-15.9); WHITE BLOOD COUNT 7.7 K/mm3 (4.0-10.0)
[2017-03-13 06:57] LABS: ALBUMIN 1.6 g/dl (3.4-5.0); ALK PHOS 77 U/L (45-117); ANION GAP 7 (8-16); BILIRUBIN,TOTAL 0.5 mg/dL (0.2-1.0); CO2 31 mmol/L (21-32); GLUCOSE,RANDOM 195 mg/dL (74-106); SGOT/AST 6 U/L (15-37); SGPT/ALT 7 U/L (12-78); TOT PROT 6.1 g/dl (6.4-8.2)
[2017-03-13] MEDS: CALCIUM ACETATE 667 MG CAPSULE (FP) PO SCH ×3 (08:00→18:13)
[2017-03-13] MEDS ORDERED: PT OWN MED DRAWER 7, Y5N ONE (09:51)
[2017-03-13] MEDS: FINASTERIDE 5 MG TABLET (FP) PO SCH (09:57)
[2017-03-13] MEDS: VANCOMYCIN 750 MG in DEXTROSE 5%-WATER - 250 ML IVPB SCH (09:57)
[2017-03-13] MEDS: METOPROLOL SUCCINATE 25 MG TAB.SR.24H (FP) PO SCH ×2 (09:58→21:50)
[2017-03-13] MEDS: SERTRALINE HCL 50 MG TABLET (FP) PO SCH (10:00)
--- NOTE | 2017-03-13 10:23 | PN ---
Progress Note (short form) - Note Progress Note: Pt examined No complaints He will be going for AVG placement today Vital Signs - 24 hr 03/12/17 03/12/17 03/12/17 14:00 16:00 18:00 Temperature 98.6 F Pulse Rate 104 H Respiratory 20 20 20 Rate Blood Pressure 103/67 129/65 129/89 O2 Sat by Pulse Oximetry (%) 03/12/17 03/12/17 03/12/17 19:39 19:40 19:45 Temperature 98.8 F Pulse Rate 111 H 110 H Respiratory 18 18 Rate Blood Pressure 126/82 128/82 O2 Sat by Pulse 97 Oximetry (%) 03/12/17 03/12/17 03/12/17 20:15 20:45 21:15 Temperature Pulse Rate 114 H 109 H 109 H Respiratory 18 18 19 Rate Blood Pressure 128/82 125/78 128/82 O2 Sat by Pulse Oximetry (%) 03/12/17 03/12/17 03/12/17 21:45 22:00 22:15 Temperature Pulse Rate 101 H 108 H Respiratory 18 20 18 Rate Blood Pressure 131/82 133/82 131/66 O2 Sat by Pulse Oximetry (%) 03/12/17 03/12/17 03/12/17 22:45 22:49 23:15 Temperature Pulse Rate 102 H 108 H 101 H Respiratory 18 22 18 Rate Blood Pressure 136/79 132/83 133/67 O2 Sat by Pulse Oximetry (%) 03/12/17 03/12/17 03/13/17 23:25 23:38 00:33 Temperature 99.2 F Pulse Rate 102 H 110 H Respiratory 18 20 Rate Blood Pressure 138/78 134/84 O2 Sat by Pulse Oximetry (%) 03/13/17 03/13/17 03/13/17 02:00 04:32 06:00 Temperature 97.9 F 98.4 F Pulse Rate 101 H 102 H 108 H Respiratory 20 22 20 Rate Blood Pressure 134/82 126/79 128/54 O2 Sat by Pulse Oximetry (%) 03/13/17 09:11 Temperature 98.1 F Pulse Rate Respiratory Rate Blood Pressure O2 Sat by Pulse Oximetry (%) Current Medications Generic Name Dose Route Start Last Admin Trade Name Freq PRN Reason Stop Dose Admin Acetaminophen 650 mg 03/10/17 12:03 Tylenol Suppository - [place] Q6H PRN FEVER OR PAIN Acetaminophen 650 mg 03/12/17 10:10 Tylenol - PO Q6H PRN FEVER OR PAIN Albuterol Sulfate 1 amp 03/12/17 12:00 Ventolin 0.083% Nebulizer Soln - NEB QIDR [facility] Calcium Acetate 1,334 mg 03/12/17 12:00 03/13/17 08:00 Phoslo - PO Not Given TIDCM [facility] Fentanyl 50 mcg 03/10/17 12:04 Sublimaze Injection - IVPUSH [id number] PRN PAIN Finasteride 5 mg 03/13/17 10:00 03/13/17 09:57 Proscar - PO 5 mg DAILY [facility] Administration Vancomycin HCl 750 mg/ 250 mls @ 250 mls/hr 03/11/17 10:00 03/13/17 09:57 Dextrose IVPB 250 mls/hr TuThSa [facility] Administration Meropenem 500 mg in 10 mls @ 120 mls/hr 03/11/17 19:00 03/13/17 06:14 Merrem (Restricted To Id) - IVPUSH 120 mls/hr Q12H [facility] Administration Insulin Detemir 8 units 03/12/17 16:30 03/13/17 06:14 Levemir Vial SQ Not Given BIDAC [facility] Metoprolol Succinate 25 mg 03/12/17 22:00 03/13/17 09:58 Toprol Xl - PO 25 mg BID [facility] Administration Mirtazapine 15 mg 03/13/17 22:00 Remeron - PO HS [facility] Sertraline HCl 50 mg 03/13/17 10:00 03/13/17 10:00 Zoloft - PO Not Given DAILY [facility] Laboratory Results - last 24 hr 03/08/17 03/12/17 03/13/17 15:05 20:30 05:00 WBC 7.7 RBC 3.11 L Hgb 8.5 L Hct 26.1 L MCV 83.7 MCH 27.3 MCHC 32.7 RDW 17.6 H Plt Count 284 MPV 7.1 L Sodium Potassium Chloride Carbon Dioxide Anion Gap BUN Creatinine Creat Clearance w eGFR Random Glucose Calcium Total Bilirubin AST ALT Alkaline Phosphatase Total Protein Albumin Random Vancomycin 14.099 Blood Type B POSITIVE Antibody Screen Negative Crossmatch See Detail 03/13/17 05:00 WBC RBC Hgb Hct MCV RoyaMCH MCHC RDW Plt Count MPV Sodium 140 Potassium 3.7 Chloride 102 Carbon Dioxide 31 Anion Gap 7 L BUN 22 H D Creatinine 3.0 H D Creat Clearance w eGFR 20.98 Random Glucose 195 H D Calcium 8.0 L Total Bilirubin 0.5 D AST 6 L ALT 7 L D Alkaline Phosphatase 77 Total Protein 6.1 L Albumin 1.6 L Random Vancomycin Blood Type Antibody Screen Crossmatch S1 S2 RRR Lungs decreased Rt chest wall permacath Abd- soft, NT No edema PLAN -- for AVG placement today -- spoke with Dr Correa today -- may need longterm antibiotics-- but pt is refusing MRI- bone scan pending-- unsure if he would be compliant. At the most may need two weeks total antibiotics for ESBL urine and wound -- HD per renal Problem List - Problems (1) CHF (congestive heart failure) Code(s): I50.9 - HEART FAILURE, UNSPECIFIED (2) End stage kidney disease Code(s): N18.6 - END STAGE RENAL DISEASE (3) HTN (hypertension) Code(s): I10 - ESSENTIAL (PRIMARY) HYPERTENSION (4) Sepsis Code(s): A41.9 - SEPSIS, UNSPECIFIED ORGANISM
--- NOTE | 2017-03-13 12:04 | PN ---
Progress Note (short form) - Note Progress Note: Renal follow up for ESRD on HD Pt seen and examined in Tele awake and alert NPO for OR today no acute complaints s/p dialysis yesterday Vital Signs Temperature 98.1 F 03/13/17 09:11 Pulse Rate 108 H 03/13/17 06:00 Respiratory Rate 20 03/13/17 06:00 Blood Pressure 128/54 03/13/17 06:00 O2 Sat by Pulse Oximetry (%) 97 03/12/17 19:39 Intake & Output 03/10/17 03/11/17 03/12/17 03/13/17 23:59 23:59 23:59 23:59 Intake Total 450 930 820 100 Balance 450 930 820 100 Weight 69.428 kg 68.991 kg 71.668 kg 71.849 kg NAD awake and alet RRR dec Bs lung bases No LE edema rigth IJ permacath CBC, BMP 03/13/17 05:00 03/13/17 05:00 Laboratory Tests 03/13/17 05:00 Calcium 8.0 L Albumin 1.6 L Current Medications Acetaminophen (Tylenol Suppository -) 650 mg [place] Q6H PRN PRN Reason: FEVER OR PAIN Acetaminophen (Tylenol -) 650 mg PO Q6H PRN PRN Reason: FEVER OR PAIN Albuterol Sulfate (Ventolin 0.083% Nebulizer Soln -) 1 amp NEB QIDR [facility] Calcium Acetate (Phoslo -) 1,334 mg PO TIDCM [facility] Last Admin: 03/13/17 08:00 Dose: Not Given Fentanyl (Sublimaze Injection -) 50 mcg IVPUSH [id number] PRN PRN Reason: PAIN Finasteride (Proscar -) 5 mg PO DAILY [facility] Last Admin: 03/13/17 09:57 Dose: 5 mg Vancomycin HCl 750 mg/ (Dextrose) 250 mls @ 250 mls/hr IVPB TuThSa [facility] Last Admin: 03/13/17 09:57 Dose: 250 mls/hr Meropenem (Merrem (Restricted To Id) -) 500 mg in 10 mls @ 120 mls/hr IVPUSH Q12H [facility] Last Admin: 03/13/17 06:14 Dose: 120 mls/hr Insulin Detemir (Levemir Vial) 8 units SQ BIDAC [facility] Last Admin: 03/13/17 06:14 Dose: Not Given Metoprolol Succinate (Toprol Xl -) 25 mg PO BID [facility] Last Admin: 03/13/17 09:58 Dose: 25 mg Mirtazapine (Remeron -) 15 mg PO HS [facility] Sertraline HCl (Zoloft -) 50 mg PO DAILY [facility] Last Admin: 03/13/17 10:00 Dose: Not Given 67 year old Gentleman with PMHx of ESRD on HD, IDDM, Hypertension, chornic anemia who presented with dislodged dialysis catheter. #ESRD with dislodged dialysis catheter s/p dialysis yesterday, no acute indication for [employer] today will reacces for HD tomorrow vs. Friday (regular HD schedule is TTS) Renal Diet AVF placement today #Anemia s/p PRBC transfusion will continue WILY with HD #Infected Sacral wounds Continue Abx as per ID Redmagdaleno Kerr based on level pre-HD ID follow up Dominick Vanegas DO
--- NOTE | 2017-03-13 15:30 | PN ---
Progress Note (short form) - Note Progress Note: No CP or SOB. S/P catheter insertion. Intake & Output 03/10/17 03/11/17 03/12/17 03/13/17 23:59 23:59 23:59 23:59 Intake Total 450 930 820 100 Balance 450 930 820 100 Weight 153 lb 1 oz 152 lb 1.6 oz 158 lb 158 lb 6.4 oz Last Vital Signs Temp Pulse Resp BP Pulse Ox 98.1 F 101 H 20 121/85 98 03/13/17 09:11 03/13/17 08:00 03/13/17 09:00 03/13/17 08:00 03/13/17 09:00 Active Medications Acetaminophen (Tylenol Suppository -) 650 mg [place] Q6H PRN PRN Reason: FEVER OR PAIN Acetaminophen (Tylenol -) 650 mg PO Q6H PRN PRN Reason: FEVER OR PAIN Albuterol Sulfate (Ventolin 0.083% Nebulizer Soln -) 1 amp NEB QIDR [facility] Calcium Acetate (Phoslo -) 1,334 mg PO TIDCM [facility] Last Admin: 03/13/17 13:10 Dose: Not Given Fentanyl (Sublimaze Injection -) 50 mcg IVPUSH [id number] PRN PRN Reason: PAIN Finasteride (Proscar -) 5 mg PO DAILY [facility] Last Admin: 03/13/17 09:57 Dose: 5 mg Vancomycin HCl 750 mg/ (Dextrose) 250 mls @ 250 mls/hr IVPB TuThSa [facility] Last Admin: 03/13/17 09:57 Dose: 250 mls/hr Meropenem (Merrem (Restricted To Id) -) 500 mg in 10 mls @ 120 mls/hr IVPUSH Q12H [facility] Last Admin: 03/13/17 06:14 Dose: 120 mls/hr Insulin Detemir (Levemir Vial) 8 units SQ BIDAC [facility] Last Admin: 03/13/17 06:14 Dose: Not Given Metoprolol Succinate (Toprol Xl -) 25 mg PO BID [facility] Last Admin: 03/13/17 09:58 Dose: 25 mg Mirtazapine (Remeron -) 15 mg PO HS [facility] Sertraline HCl (Zoloft -) 50 mg PO DAILY [facility] Last Admin: 03/13/17 10:00 Dose: Not Given Problem List - Problems (1) Hyperkalemia Code(s): E87.5 - HYPERKALEMIA (2) End stage kidney disease Code(s): N18.6 - END STAGE RENAL DISEASE (3) CHF (congestive heart failure) Code(s): I50.9 - HEART FAILURE, UNSPECIFIED (4) COPD (chronic obstructive pulmonary disease) Code(s): J44.9 - CHRONIC OBSTRUCTIVE PULMONARY DISEASE, UNSPECIFIED (5) Diabetes 1.5, managed as type 1 Code(s): E13.9 - OTHER SPECIFIED DIABETES MELLITUS WITHOUT COMPLICATIONS (6) Dialysis patient Code(s): Z99.2 - DEPENDENCE ON RENAL DIALYSIS (7) HTN (hypertension) Code(s): I10 - ESSENTIAL (PRIMARY) HYPERTENSION (8) Hyperglycemia Code(s): R73.9 - HYPERGLYCEMIA, UNSPECIFIED (9) Sacral decubitus ulcer, stage III Code(s): L89.153 - PRESSURE ULCER OF SACRAL REGION, STAGE 3 Assessment/Plan HD per Renal O2 as needed Normal transfusion thresholds ABX per ID Dr Tang Problem List - Problems (1) Hyperkalemia Code(s): E87.5 - HYPERKALEMIA (2) End stage kidney disease Code(s): N18.6 - END STAGE RENAL DISEASE (3) CHF (congestive heart failure) Code(s): I50.9 - HEART FAILURE, UNSPECIFIED (4) COPD (chronic obstructive pulmonary disease) Code(s): J44.9 - CHRONIC OBSTRUCTIVE PULMONARY DISEASE, UNSPECIFIED (5) Diabetes 1.5, managed as type 1 Code(s): E13.9 - OTHER SPECIFIED DIABETES MELLITUS WITHOUT COMPLICATIONS (6) Dialysis patient Code(s): Z99.2 - DEPENDENCE ON RENAL DIALYSIS (7) HTN (hypertension) Code(s): I10 - ESSENTIAL (PRIMARY) HYPERTENSION (8) Hyperglycemia Code(s): R73.9 - HYPERGLYCEMIA, UNSPECIFIED (9) Sacral decubitus ulcer, stage III Code(s): L89.153 - PRESSURE ULCER OF SACRAL REGION, STAGE 3
--- NOTE | 2017-03-13 17:11 | PN ---
Progress Note (short form) - Note Progress Note: Vascular Surgery Pt drank water today and does not want surgery. NPO past midnight for OR miles 2pm. Tonio Longoria DO
[2017-03-13] MEDS ORDERED: INSULIN (NOVOLOG) ASPART 100 UNITS/ML 10ML VIAL ONE (18:47)
[2017-03-13] MEDS: MIRTAZAPINE 15 MG TABLET (FP) PO SCH (21:50)
[2017-03-13] MEDS ORDERED: MAG HYDROX/AL HYDROX/SIMETH 30 ML UNIT-DOSE CUP PO ONE (23:52)
[2017-03-14] MEDS ORDERED: PT OWN MED DRAWER 7, Y5N ONE ×4 (05:39→19:54)
[2017-03-14] MEDS: INSULIN DETEMIR 100 UNITS/ML MDV SQ SCH ×2 (06:21→18:30)
[2017-03-14] MEDS: MEROPENEM 500 MG PUSH 500 MG/10 ML DISP.SYRIN IVPUSH SCH ×2 (06:21→20:24)
[2017-03-14 06:36] LABS: ANION GAP 8 (8-16); CALCIUM 7.5 mg/dL (8.5-10.1); CO2 29 mmol/L (21-32); CREATININE 4.2 mg/dL (0.7-1.3); GLUCOSE,RANDOM 110 mg/dL (74-106)
[2017-03-14] MEDS: CALCIUM ACETATE 667 MG CAPSULE (FP) PO SCH ×3 (09:55→18:02)
--- NOTE | 2017-03-14 10:10 | PN ---
Progress Note, Physician Chief Complaint: The patient seen in the ICU. Had refused surgery yesterday. Today also he is refusing the surgery. Spent a lot of time with him, and finally he agrees to go for the surgery. The last dialysis was on Friday. History of Present Illness: 67 y/o male with ESRD, on HD admitted with accidental removal of his Hemodialysis catheter during dialysis. Has infected decubitus ulcer. - Current Medication List Current Medications: Active Medications Acetaminophen (Tylenol Suppository -) 650 mg [place] Q6H PRN PRN Reason: FEVER OR PAIN Acetaminophen (Tylenol -) 650 mg PO Q6H PRN PRN Reason: FEVER OR PAIN Albuterol Sulfate (Ventolin 0.083% Nebulizer Soln -) 1 amp NEB QIDR [facility] Calcium Acetate (Phoslo -) 1,334 mg PO TIDCM [facility] Last Admin: 03/13/17 18:13 Dose: 1,334 mg Fentanyl (Sublimaze Injection -) 50 mcg IVPUSH [id number] PRN PRN Reason: PAIN Finasteride (Proscar -) 5 mg PO DAILY [facility] Last Admin: 03/13/17 09:57 Dose: 5 mg Vancomycin HCl 750 mg/ (Dextrose) 250 mls @ 250 mls/hr IVPB TuThSa [facility] Last Admin: 03/13/17 09:57 Dose: 250 mls/hr Meropenem (Merrem (Restricted To Id) -) 500 mg in 10 mls @ 120 mls/hr IVPUSH Q12H [facility] Last Admin: 03/14/17 06:21 Dose: 120 mls/hr Insulin Detemir (Levemir Vial) 8 units SQ BIDAC [facility] Last Admin: 03/14/17 06:21 Dose: Not Given Metoprolol Succinate (Toprol Xl -) 25 mg PO BID [facility] Last Admin: 03/13/17 21:50 Dose: 25 mg Mirtazapine (Remeron -) 15 mg PO HS [facility] Last Admin: 03/13/17 21:50 Dose: 15 mg Sertraline HCl (Zoloft -) 50 mg PO DAILY [facility] Last Admin: 03/13/17 10:00 Dose: Not Given - Objective Vital Signs: Vital Signs Temperature 98.1 F 03/14/17 06:00 Pulse Rate 108 H 03/14/17 06:00 Respiratory Rate 20 03/14/17 06:00 Blood Pressure 116/80 03/14/17 06:00 O2 Sat by Pulse Oximetry (%) 98 03/13/17 19:51 Constitutional: Yes: Well Nourished, Pallor Eyes: Yes: Conjunctiva Clear HENT: Yes: Atraumatic Cardiovascular: Yes: Regular Rate and Rhythm, S1, S2 Respiratory: Yes: CTA Bilaterally, Diminished Gastrointestinal: Yes: Soft. No: Tenderness Genitourinary: No: CVA Tenderness - Left, CVA Tenderness - Right Labs: CBC, BMP 03/13/17 05:00 03/14/17 05:00 INR, PTT INR 1.47 (0.82-1.09) H 03/08/17 15:05 Problem List - Problems (1) Hyperkalemia Code(s): E87.5 - HYPERKALEMIA (2) End stage kidney disease Code(s): N18.6 - END STAGE RENAL DISEASE (3) CHF (congestive heart failure) Code(s): I50.9 - HEART FAILURE, UNSPECIFIED (4) COPD (chronic obstructive pulmonary disease) Code(s): J44.9 - CHRONIC OBSTRUCTIVE PULMONARY DISEASE, UNSPECIFIED (5) HTN (hypertension) Code(s): I10 - ESSENTIAL (PRIMARY) HYPERTENSION (6) Infected decubitus ulcer Code(s): L89.90 - PRESSURE ULCER OF UNSPECIFIED SITE, UNSPECIFIED STAGE (7) Leukocytosis Code(s): D72.829 - ELEVATED WHITE BLOOD CELL COUNT, UNSPECIFIED (8) Metabolic encephalopathy Code(s): G93.41 - METABOLIC ENCEPHALOPATHY (9) Sepsis Code(s): A41.9 - SEPSIS, UNSPECIFIED ORGANISM (10) Anemia Code(s): D64.9 - ANEMIA, UNSPECIFIED Qualifiers: Anemia type: unspecified type Qualified Code(s): D64.9 - Anemia, unspecified (11) Sacral decubitus ulcer, stage III Code(s): L89.153 - PRESSURE ULCER OF SACRAL REGION, STAGE 3 Assessment/Plan 67 M, ESRD on HD , HTN, IDDM, chronic anemia, and sacral Ulcers. Admitted via the ER due to pulling out his Permacath. The patient has a Permacath. The AVF surgery was cancelled by the patient repeatedly. Consents to the same now. Will have the AVF today, and dialysis tomorrow.
--- NOTE | 2017-03-14 10:48 | PN ---
Progress Note, Physician Chief Complaint: pt had refused surgery yesterday but is agreeing today no complaints - Current Medication List Current Medications: Active Medications Acetaminophen (Tylenol Suppository -) 650 mg [place] Q6H PRN PRN Reason: FEVER OR PAIN Acetaminophen (Tylenol -) 650 mg PO Q6H PRN PRN Reason: FEVER OR PAIN Albuterol Sulfate (Ventolin 0.083% Nebulizer Soln -) 1 amp NEB QIDR [facility] Calcium Acetate (Phoslo -) 1,334 mg PO TIDCM [facility] Last Admin: 03/13/17 18:13 Dose: 1,334 mg Fentanyl (Sublimaze Injection -) 50 mcg IVPUSH [id number] PRN PRN Reason: PAIN Finasteride (Proscar -) 5 mg PO DAILY [facility] Last Admin: 03/13/17 09:57 Dose: 5 mg Vancomycin HCl 750 mg/ (Dextrose) 250 mls @ 250 mls/hr IVPB TuThSa [facility] Last Admin: 03/13/17 09:57 Dose: 250 mls/hr Meropenem (Merrem (Restricted To Id) -) 500 mg in 10 mls @ 120 mls/hr IVPUSH Q12H [facility] Last Admin: 03/14/17 06:21 Dose: 120 mls/hr Insulin Detemir (Levemir Vial) 8 units SQ BIDAC [facility] Last Admin: 03/14/17 06:21 Dose: Not Given Metoprolol Succinate (Toprol Xl -) 25 mg PO BID [facility] Last Admin: 03/13/17 21:50 Dose: 25 mg Mirtazapine (Remeron -) 15 mg PO HS [facility] Last Admin: 03/13/17 21:50 Dose: 15 mg Sertraline HCl (Zoloft -) 50 mg PO DAILY [facility] Last Admin: 03/13/17 10:00 Dose: Not Given - Objective Vital Signs: Vital Signs Temperature 98.1 F 03/14/17 06:00 Pulse Rate 108 H 03/14/17 06:00 Respiratory Rate 20 03/14/17 06:00 Blood Pressure 116/80 03/14/17 06:00 O2 Sat by Pulse Oximetry (%) 98 03/13/17 19:51 Constitutional: Yes: No Distress Cardiovascular: Yes: Regular Rate and Rhythm Respiratory: Yes: Diminished Gastrointestinal: Yes: Normal Bowel Sounds, Soft. No: Distention, Tenderness Edema: No Labs: CBC, BMP 03/13/17 05:00 03/14/17 05:00 INR, PTT INR 1.47 (0.82-1.09) H 03/08/17 15:05 Problem List - Problems (1) CHF (congestive heart failure) Code(s): I50.9 - HEART FAILURE, UNSPECIFIED (2) End stage kidney disease Code(s): N18.6 - END STAGE RENAL DISEASE (3) HTN (hypertension) Code(s): I10 - ESSENTIAL (PRIMARY) HYPERTENSION (4) Sepsis Code(s): A41.9 - SEPSIS, UNSPECIFIED ORGANISM Assessment/Plan PLAN Anemia --s/p transfusion PRBC -- GI eval--pt refused interventions -- monitor CBC-stable, Hb usually 8 ESRD on HD -- HD per Renal -- s/p permacath placement chest wall -- femoral shiley removed -- for Rt AVG today Sepsis -- due to UTI, sacral decubiti -- xrays of hips and sacrum noted -- spoke with ID yesterday -- wound care eval --bone scan pending -- IV antibiotics Hypotension -- BP better -- resume Metoprolol as he is tachycardic -- transfuse PRBC as needed Afebrile, no elevated WBC, no positive blood cultures-- he is medically cleared for AVG placement DVT prophylaxis -- SCD
--- NOTE | 2017-03-14 12:23 | PN ---
Progress Note (short form) - Note Progress Note: Refusing surgery. No acute events overnight. Intake & Output 03/11/17 03/12/17 03/13/17 03/14/17 23:59 23:59 23:59 23:59 Intake Total 930 820 400 30 Balance 930 820 400 30 Weight 152 lb 1.6 oz 158 lb 158 lb 6.4 oz 155 lb 4.8 oz Last Vital Signs Temp Pulse Resp BP Pulse Ox 98.1 F 108 H 20 116/80 98 03/14/17 06:00 03/14/17 06:00 03/14/17 06:00 03/14/17 06:00 03/13/17 19:51 Active Medications Acetaminophen (Tylenol Suppository -) 650 mg [place] Q6H PRN PRN Reason: FEVER OR PAIN Acetaminophen (Tylenol -) 650 mg PO Q6H PRN PRN Reason: FEVER OR PAIN Albuterol Sulfate (Ventolin 0.083% Nebulizer Soln -) 1 amp NEB QIDR [facility] Calcium Acetate (Phoslo -) 1,334 mg PO TIDCM [facility] Last Admin: 03/13/17 18:13 Dose: 1,334 mg Fentanyl (Sublimaze Injection -) 50 mcg IVPUSH [id number] PRN PRN Reason: PAIN Finasteride (Proscar -) 5 mg PO DAILY [facility] Last Admin: 03/13/17 09:57 Dose: 5 mg Vancomycin HCl 750 mg/ (Dextrose) 250 mls @ 250 mls/hr IVPB TuThSa [facility] Last Admin: 03/13/17 09:57 Dose: 250 mls/hr Meropenem (Merrem (Restricted To Id) -) 500 mg in 10 mls @ 120 mls/hr IVPUSH Q12H [facility] Last Admin: 03/14/17 06:21 Dose: 120 mls/hr Insulin Detemir (Levemir Vial) 8 units SQ BIDAC [facility] Last Admin: 03/14/17 06:21 Dose: Not Given Metoprolol Succinate (Toprol Xl -) 25 mg PO BID [facility] Last Admin: 03/13/17 21:50 Dose: 25 mg Mirtazapine (Remeron -) 15 mg PO HS [facility] Last Admin: 03/13/17 21:50 Dose: 15 mg Sertraline HCl (Zoloft -) 50 mg PO DAILY [facility] Last Admin: 03/13/17 10:00 Dose: Not Given GENERAL: Awake, alert, NAD HEAD: No signs of trauma EYES: PERRLA, EOMI, sclera anicteric, conjunctiva clear ENT: Auricles normal inspection, hearing grossly normal, nares patent, oropharynx clear without exudates. Moist mucosa NECK: Normal ROM, supple, no lymphadenopathy, JVD, or masses LUNGS: Breath sounds equal, clear to auscultation bilaterally. No wheezes, and no crackles HEART: Regular rate and rhythm, normal S1 and S2, no murmurs, rubs or gallops ABDOMEN: Soft, nontender, normoactive bowel sounds. No guarding, no rebound. No masses EXTREMITIES: +Contractures to lower extremities, no edema. No clubbing or cyanosis. No cords, erythema, or tenderness NEUROLOGICAL: Cranial nerves II through XII grossly intact. Normal speech. Motor and sensation intact. Gait not tested due to confusion. SKIN: Warm, Dry, normal turgor. +Sacral decubitus ulcers. Laboratory Results - last 24 hr 03/13/17 03/13/17 03/14/17 05:45 17:43 05:00 Sodium 135 L Potassium 4.0 Chloride 98 Carbon Dioxide 29 Anion Gap 8 BUN 31 H D Creatinine 4.2 H D POC Glucometer 204.97778 319.54647 Random Glucose 110 H D Calcium 7.5 L Problem List - Problems (1) Hyperkalemia Code(s): E87.5 - HYPERKALEMIA (2) End stage kidney disease Code(s): N18.6 - END STAGE RENAL DISEASE (3) CHF (congestive heart failure) Code(s): I50.9 - HEART FAILURE, UNSPECIFIED (4) COPD (chronic obstructive pulmonary disease) Code(s): J44.9 - CHRONIC OBSTRUCTIVE PULMONARY DISEASE, UNSPECIFIED (5) Diabetes 1.5, managed as type 1 Code(s): E13.9 - OTHER SPECIFIED DIABETES MELLITUS WITHOUT COMPLICATIONS (6) Dialysis patient Code(s): Z99.2 - DEPENDENCE ON RENAL DIALYSIS (7) HTN (hypertension) Code(s): I10 - ESSENTIAL (PRIMARY) HYPERTENSION (8) Hyperglycemia Code(s): R73.9 - HYPERGLYCEMIA, UNSPECIFIED (9) Sacral decubitus ulcer, stage III Code(s): L89.153 - PRESSURE ULCER OF SACRAL REGION, STAGE 3 Assessment/Plan For OR if patient agrees HD per Renal O2 as needed Normal transfusion thresholds ABX per ID Dr Tang Problem List - Problems (1) Hyperkalemia Code(s): E87.5 - HYPERKALEMIA (2) End stage kidney disease Code(s): N18.6 - END STAGE RENAL DISEASE (3) CHF (congestive heart failure) Code(s): I50.9 - HEART FAILURE, UNSPECIFIED (4) COPD (chronic obstructive pulmonary disease) Code(s): J44.9 - CHRONIC OBSTRUCTIVE PULMONARY DISEASE, UNSPECIFIED (5) Diabetes 1.5, managed as type 1 Code(s): E13.9 - OTHER SPECIFIED DIABETES MELLITUS WITHOUT COMPLICATIONS (6) Dialysis patient Code(s): Z99.2 - DEPENDENCE ON RENAL DIALYSIS (7) HTN (hypertension) Code(s): I10 - ESSENTIAL (PRIMARY) HYPERTENSION (8) Hyperglycemia Code(s): R73.9 - HYPERGLYCEMIA, UNSPECIFIED (9) Sacral decubitus ulcer, stage III Code(s): L89.153 - PRESSURE ULCER OF SACRAL REGION, STAGE 3
[2017-03-14] MEDS ORDERED: HEPARIN NA (PORCINE) 5,000 UNITS/ML 1ML VIAL ONE (13:25)
[2017-03-14] MEDS ORDERED: LIDOCAINE HCL 1%, 10 MG/ML (20ML VIAL) ONE (13:25)
--- NOTE | 2017-03-14 13:34 | PN ---
Progress Note, Physician History of Present Illness: Events noted. Pt remains alert, afebrile, without acute distress or specific complaints. wbc remains normal. Pt agreed to and had bone scan to r/o acute OM of sacrum/hip. - Current Medication List Current Medications: Active Medications Acetaminophen (Tylenol Suppository -) 650 mg [place] Q6H PRN PRN Reason: FEVER OR PAIN Acetaminophen (Tylenol -) 650 mg PO Q6H PRN PRN Reason: FEVER OR PAIN Albuterol Sulfate (Ventolin 0.083% Nebulizer Soln -) 1 amp NEB QIDR [facility] Calcium Acetate (Phoslo -) 1,334 mg PO TIDCM [facility] Last Admin: 03/13/17 18:13 Dose: 1,334 mg Fentanyl (Sublimaze Injection -) 50 mcg IVPUSH [id number] PRN PRN Reason: PAIN Finasteride (Proscar -) 5 mg PO DAILY [facility] Last Admin: 03/13/17 09:57 Dose: 5 mg Vancomycin HCl 750 mg/ (Dextrose) 250 mls @ 250 mls/hr IVPB TuThSa [facility] Last Admin: 03/13/17 09:57 Dose: 250 mls/hr Meropenem (Merrem (Restricted To Id) -) 500 mg in 10 mls @ 120 mls/hr IVPUSH Q12H [facility] Last Admin: 03/14/17 06:21 Dose: 120 mls/hr Insulin Detemir (Levemir Vial) 8 units SQ BIDAC [facility] Last Admin: 03/14/17 06:21 Dose: Not Given Metoprolol Succinate (Toprol Xl -) 25 mg PO BID [facility] Last Admin: 03/13/17 21:50 Dose: 25 mg Mirtazapine (Remeron -) 15 mg PO HS [facility] Last Admin: 03/13/17 21:50 Dose: 15 mg Sertraline HCl (Zoloft -) 50 mg PO DAILY [facility] Last Admin: 03/13/17 10:00 Dose: Not Given - Objective Vital Signs: Vital Signs Temperature 98.1 F 03/14/17 06:00 Pulse Rate 108 H 03/14/17 06:00 Respiratory Rate 20 03/14/17 06:00 Blood Pressure 116/80 03/14/17 06:00 O2 Sat by Pulse Oximetry (%) 98 03/13/17 19:51 Constitutional: Yes: No Distress, Calm HENT: Yes: Atraumatic Neck: Yes: Supple Cardiovascular: Yes: Regular Rate and Rhythm Respiratory: Yes: Regular Gastrointestinal: Yes: Normal Bowel Sounds, Soft Genitourinary: Yes: WNL Extremities: Yes: WNL Integumentary: Yes: Pressure Ulcer (Sacral and Hip St IV DUs with mod malodorous drainage) Wound/Incision: Yes: Other (Rt chest wall HD cath) Neurological: Yes: Alert Labs: CBC, BMP 03/13/17 05:00 03/14/17 05:00 INR, PTT INR 1.47 (0.82-1.09) H 03/08/17 15:05 - ....Imaging Other: Pending (Bone Scan) Problem List - Problems (1) CHF (congestive heart failure) Code(s): I50.9 - HEART FAILURE, UNSPECIFIED (2) COPD (chronic obstructive pulmonary disease) Code(s): J44.9 - CHRONIC OBSTRUCTIVE PULMONARY DISEASE, UNSPECIFIED (3) Dialysis patient Code(s): Z99.2 - DEPENDENCE ON RENAL DIALYSIS (4) HTN (hypertension) Code(s): I10 - ESSENTIAL (PRIMARY) HYPERTENSION (5) Sepsis Code(s): A41.9 - SEPSIS, UNSPECIFIED ORGANISM (6) Anemia Code(s): D64.9 - ANEMIA, UNSPECIFIED Qualifiers: Anemia type: unspecified type Qualified Code(s): D64.9 - Anemia, unspecified (7) Diabetes Code(s): E11.9 - TYPE 2 DIABETES MELLITUS WITHOUT COMPLICATIONS Qualifiers: (8) UTI (urinary tract infection) Code(s): N39.0 - URINARY TRACT INFECTION, SITE NOT SPECIFIED Assessment/Plan Sepsis ESBL + E. 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 Meropenem and Vancomycin IV, renally adjusted - f/u Bone scan results - cont wound care - monitor vitals cc time: 35 min
[2017-03-14] MEDS: FINASTERIDE 5 MG TABLET (FP) PO SCH (13:54)
[2017-03-14] MEDS: SERTRALINE HCL 50 MG TABLET (FP) PO SCH (13:55)
[2017-03-14] MEDS: METOPROLOL SUCCINATE 25 MG TAB.SR.24H (FP) PO SCH ×2 (13:55→22:13)
[2017-03-14] MEDS ORDERED: MIDAZOLAM HCL 2 MG/2 ML SINGLE DOSE VIAL ONE (14:01)
[2017-03-14] MEDS ORDERED: LIDOCAINE HCL/PF 2% SDV 5ML VIAL ONE (14:07)
[2017-03-14] MEDS ORDERED: PROPOFOL 20 ML ONE ×4 (14:07)
[2017-03-14] MEDS ORDERED: LIDOCAINE HCL 1%, 10 MG/ML (50 mL VIAL) IJ ONE (15:16)
[2017-03-14] MEDS ORDERED: PHENYLEPHRINE HCL 10 MG/1 ML SINGLE DOSE VIAL ONE (15:56)
[2017-03-14] MEDS ORDERED: POVIDONE-IODINE OINTMENT 10% - 28.4 GM TUBE ONE (16:26)
[2017-03-14] MEDS ORDERED: POVIDONE-IODINE OINTMENT 10% - 28.4 GM TUBE TP ONE (16:27)
[2017-03-14] MEDS ORDERED: ONDANSETRON 4 MG/2 ML VIAL IVPUSH PRN (16:35)
--- NOTE | 2017-03-14 16:53 | OP ---
Operative Note - Note: Operative Date: 03/14/17 Pre-Operative Diagnosis: ESRD Operation: creation of left basilci vein fistula Post-Operative Diagnosis: Same as Pre-op Surgeon: Tonio Longoria Anesthesia: Fractional Estimated Blood Loss (mls): 20 Operative Report Dictated: Yes
[2017-03-14] MEDS: MIRTAZAPINE 15 MG TABLET (FP) PO SCH (22:13)
[2017-03-14] MEDS: ALBUTEROL SO4 0.083% IH SOL 2.5 MG/3 ML VIAL.NEB. NEB SCH (23:09)
[2017-03-14] MEDS: ACETAMINOPHEN 325 MG TABLET (FP) PO PRN (23:21)
[2017-03-15] MEDS: MEROPENEM 500 MG PUSH 500 MG/10 ML DISP.SYRIN IVPUSH SCH ×2 (06:52→18:32)
[2017-03-15] MEDS: INSULIN DETEMIR 100 UNITS/ML MDV SQ SCH ×2 (06:52→17:32)
[2017-03-15] MEDS: ALBUTEROL SO4 0.083% IH SOL 2.5 MG/3 ML VIAL.NEB. NEB SCH ×4 (06:55→23:14)
[2017-03-15] MEDS: CALCIUM ACETATE 667 MG CAPSULE (FP) PO SCH ×3 (08:32→17:32)
--- NOTE | 2017-03-15 09:36 | PN ---
Progress Note (short form) - Note Progress Note: Renal follow up for ESRD on HD Pt seen and examined at the bedside awake and alert no acute complaints has some sorness in arm no hand pain Vital Signs Temperature 98.7 F 03/15/17 02:00 Pulse Rate 114 H 03/15/17 02:00 Respiratory Rate 18 03/15/17 02:00 Blood Pressure 113/71 03/15/17 02:00 O2 Sat by Pulse Oximetry (%) 95 03/14/17 21:00 Intake & Output 03/12/17 03/13/17 03/14/17 03/15/17 23:59 23:59 23:59 23:59 Intake Total 820 400 450 360 Output Total 30 Balance 820 400 420 360 Weight 71.668 kg 71.849 kg 70.443 kg NAD awake and alet RRR dec Bs lung bases No LE edema rigth IJ permacath CBC, BMP 03/13/17 05:00 03/14/17 05:00 Laboratory Tests 03/14/17 05:00 Calcium 7.5 L Current Medications Acetaminophen (Tylenol Suppository -) 650 mg [place] Q6H PRN PRN Reason: FEVER OR PAIN Acetaminophen (Tylenol -) 650 mg PO Q6H PRN PRN Reason: FEVER OR PAIN Last Admin: 03/14/17 23:21 Dose: 650 mg Albuterol Sulfate (Ventolin 0.083% Nebulizer Soln -) 1 amp NEB QIDR [facility] Last Admin: 03/15/17 06:55 Dose: Not Given Calcium Acetate (Phoslo -) 1,334 mg PO TIDCM [facility] Last Admin: 03/14/17 18:02 Dose: 1,334 mg Fentanyl (Sublimaze Injection -) 50 mcg IVPUSH [id number] PRN PRN Reason: PAIN Finasteride (Proscar -) 5 mg PO DAILY [facility] Last Admin: 03/14/17 13:54 Dose: 5 mg Vancomycin HCl 750 mg/ (Dextrose) 250 mls @ 250 mls/hr IVPB TuThSa [facility] Last Admin: 03/13/17 09:57 Dose: 250 mls/hr Meropenem (Merrem (Restricted To Id) -) 500 mg in 10 mls @ 120 mls/hr IVPUSH Q12H [facility] Last Admin: 03/15/17 06:52 Dose: 120 mls/hr Insulin Detemir (Levemir Vial) 8 units SQ BIDAC [facility] Last Admin: 03/15/17 06:52 Dose: 8 units Metoprolol Succinate (Toprol Xl -) 25 mg PO BID [facility] Last Admin: 03/14/17 22:13 Dose: 25 mg Mirtazapine (Remeron -) 15 mg PO HS [facility] Last Admin: 03/14/17 22:13 Dose: 15 mg Ondansetron HCl (Zofran Injection) 4 mg IVPUSH Q6H PRN PRN Reason: NAUSEA AND/OR VOMITING Last Admin: 03/14/17 23:04 Dose: 4 mg Sertraline HCl (Zoloft -) 50 mg PO DAILY [facility] Last Admin: 03/14/17 13:55 Dose: 50 mg 67 year old Gentleman with PMHx of ESRD on HD, IDDM, Hypertension, chornic anemia who presented with dislodged dialysis catheter. #ESRD with dislodged dialysis catheter for dialysis today with 2.5kg UF as tolerated s/p AVF placement #Anemia s/p PRBC transfusion will continue WILY with HD #Infected Sacral wounds Continue Abx as per ID Redmagdaleno Kerr based on level pre-HD f/u bone scan Dominick Vanegas DO
[2017-03-15 10:32] LABS: MCH 27.1 pg (25.7-33.7); MCHC 31.7 g/dl (32.0-35.9); MEAN CELL VOLUME 85.3 fl (80-96); MEAN PLT VOLUME 7.1 fl (7.5-11.1); PLATELET COUNT 242 K/MM3 (134-434); RDW 17.7 % (11.9-15.9); WHITE BLOOD COUNT 6.7 K/mm3 (4.0-10.0)
[2017-03-15 11:40] LABS: ANION GAP 5 (8-16); CALCIUM 7.7 mg/dL (8.5-10.1); CO2 30 mmol/L (21-32); CREATININE 5.2 mg/dL (0.7-1.3); GLUCOSE,RANDOM 267 mg/dL (74-106); PHOSPHOROUS 3.2 mg/dL (2.5-4.9)
[2017-03-15] MEDS: SERTRALINE HCL 50 MG TABLET (FP) PO SCH (11:43)
[2017-03-15] MEDS: METOPROLOL SUCCINATE 25 MG TAB.SR.24H (FP) PO SCH ×2 (11:43→22:06)
[2017-03-15] MEDS: FINASTERIDE 5 MG TABLET (FP) PO SCH (11:43)
[2017-03-15] MEDS: VANCOMYCIN 750 MG in DEXTROSE 5%-WATER - 250 ML IVPB SCH (11:44)
--- NOTE | 2017-03-15 14:23 | PN ---
Progress Note (short form) - Note Progress Note: Pt seen/ examined. chart reviewed comfortable s/p avf placement denies pain. afebrile Vital Signs Temp 98.7 F 03/15/17 02:00 Pulse 114 H 03/15/17 02:00 Resp 18 03/15/17 02:00 BP 113/71 03/15/17 02:00 Pulse Ox 95 03/14/17 21:00 Intake & Output 03/14/17 03/15/17 03/15/17 23:59 11:59 23:59 Intake Total 420 360 Output Total 30 Balance 390 360 Intake: IV 420 22 L FA 03/13 20 Oral 360 Output: Estimated Blood Loss 30 Other: Voiding Method Diaper Bowel Movement Yes Active Medications Acetaminophen (Tylenol Suppository -) 650 mg [place] Q6H PRN PRN Reason: FEVER OR PAIN Acetaminophen (Tylenol -) 650 mg PO Q6H PRN PRN Reason: FEVER OR PAIN Last Admin: 03/14/17 23:21 Dose: 650 mg Albuterol Sulfate (Ventolin 0.083% Nebulizer Soln -) 1 amp NEB QIDR [facility] Last Admin: 03/15/17 06:55 Dose: Not Given Calcium Acetate (Phoslo -) 1,334 mg PO TIDCM [facility] Last Admin: 03/15/17 11:48 Dose: Not Given Fentanyl (Sublimaze Injection -) 50 mcg IVPUSH [id number] PRN PRN Reason: PAIN Finasteride (Proscar -) 5 mg PO DAILY [facility] Last Admin: 03/15/17 11:43 Dose: 5 mg Vancomycin HCl 750 mg/ (Dextrose) 250 mls @ 250 mls/hr IVPB TuThSa [facility] Last Admin: 03/15/17 11:44 Dose: 250 mls/hr Meropenem (Merrem (Restricted To Id) -) 500 mg in 10 mls @ 120 mls/hr IVPUSH Q12H [facility] Last Admin: 03/15/17 06:52 Dose: 120 mls/hr Insulin Detemir (Levemir Vial) 8 units SQ BIDAC [facility] Last Admin: 03/15/17 06:52 Dose: 8 units Metoprolol Succinate (Toprol Xl -) 25 mg PO BID [facility] Last Admin: 03/15/17 11:43 Dose: 25 mg Mirtazapine (Remeron -) 15 mg PO HS [facility] Last Admin: 03/14/17 22:13 Dose: 15 mg Ondansetron HCl (Zofran Injection) 4 mg IVPUSH Q6H PRN PRN Reason: NAUSEA AND/OR VOMITING Last Admin: 03/14/17 23:04 Dose: 4 mg Sertraline HCl (Zoloft -) 50 mg PO DAILY [facility] Last Admin: 03/15/17 11:43 Dose: 50 mg CBC, BMP 03/15/17 10:14 03/15/17 09:45 Physical Exam Constitutional: Yes: No Distress. comfortable. Cardiovascular: Yes: Regular Rate and Rhythm Respiratory: Yes: Diminished Gastrointestinal: Yes: Normal Bowel Sounds, Soft. No: Distention, Tenderness Edema: No Problem List - Problems (1) CHF (congestive heart failure) Code(s): I50.9 - HEART FAILURE, UNSPECIFIED (2) End stage kidney disease Code(s): N18.6 - END STAGE RENAL DISEASE (3) HTN (hypertension) Code(s): I10 - ESSENTIAL (PRIMARY) HYPERTENSION (4) Sepsis Code(s): A41.9 - SEPSIS, UNSPECIFIED ORGANISM Assessment/Plan PLAN Anemia --s/p transfusion PRBC -- GI eval--pt refused interventions -- monitor CBC-stable, Hb usually 8 ESRD on HD -- HD per Renal -- s/p permacath placement chest wall -- femoral shiley removed -- s/p Rt AVG -- dialysis today Sepsis -- due to UTI, sacral decubiti -- xrays of hips and sacrum noted ---- wound care eval --bone scan -- IV antibiotics-- per i/d Hypotension -- BP better -- DVT prophylaxis -- SCD overall stable continue care . will follow.
--- NOTE | 2017-03-15 17:07 | PN ---
Progress Note, Physician History of Present Illness: Pt remains alert, without distress. s/p Lt AVF. Denies dysuria, fever, chills, diarrhea. - Current Medication List Current Medications: Active Medications Acetaminophen (Tylenol Suppository -) 650 mg [place] Q6H PRN PRN Reason: FEVER OR PAIN Acetaminophen (Tylenol -) 650 mg PO Q6H PRN PRN Reason: FEVER OR PAIN Last Admin: 03/14/17 23:21 Dose: 650 mg Albuterol Sulfate (Ventolin 0.083% Nebulizer Soln -) 1 amp NEB QIDR [facility] Last Admin: 03/15/17 12:03 Dose: Not Given Calcium Acetate (Phoslo -) 1,334 mg PO TIDCM [facility] Last Admin: 03/15/17 11:48 Dose: Not Given Fentanyl (Sublimaze Injection -) 50 mcg IVPUSH [id number] PRN PRN Reason: PAIN Finasteride (Proscar -) 5 mg PO DAILY [facility] Last Admin: 03/15/17 11:43 Dose: 5 mg Vancomycin HCl 750 mg/ (Dextrose) 250 mls @ 250 mls/hr IVPB TuThSa [facility] Last Admin: 03/15/17 11:44 Dose: 250 mls/hr Meropenem (Merrem (Restricted To Id) -) 500 mg in 10 mls @ 120 mls/hr IVPUSH Q12H [facility] Last Admin: 03/15/17 06:52 Dose: 120 mls/hr Insulin Detemir (Levemir Vial) 8 units SQ BIDAC [facility] Last Admin: 03/15/17 06:52 Dose: 8 units Metoprolol Succinate (Toprol Xl -) 25 mg PO BID [facility] Last Admin: 03/15/17 11:43 Dose: 25 mg Mirtazapine (Remeron -) 15 mg PO HS [facility] Last Admin: 03/14/17 22:13 Dose: 15 mg Ondansetron HCl (Zofran Injection) 4 mg IVPUSH Q6H PRN PRN Reason: NAUSEA AND/OR VOMITING Last Admin: 03/14/17 23:04 Dose: 4 mg Sertraline HCl (Zoloft -) 50 mg PO DAILY [facility] Last Admin: 03/15/17 11:43 Dose: 50 mg - Objective Vital Signs: Vital Signs Temperature 98.6 F 03/15/17 09:00 Pulse Rate 120 H 12/02/17 09:00 Respiratory Rate 20 03/15/17 09:00 Blood Pressure 97/51 03/15/17 09:00 O2 Sat by Pulse Oximetry (%) 95 03/14/17 21:00 Constitutional: Yes: No Distress Neck: Yes: Supple Cardiovascular: Yes: Regular Rate and Rhythm Respiratory: Yes: Regular, CTA Bilaterally Extremities: Yes: Other (LT AVF) Integumentary: Yes: Pressure Ulcer (Sacral/Hip DUs with dressing intact) Psychiatric: Yes: Alert Labs: CBC, BMP 03/15/17 10:14 03/15/17 09:45 INR, PTT INR 1.47 (0.82-1.09) H 03/08/17 15:05 Problem List - Problems (1) CHF (congestive heart failure) Code(s): I50.9 - HEART FAILURE, UNSPECIFIED (2) COPD (chronic obstructive pulmonary disease) Code(s): J44.9 - CHRONIC OBSTRUCTIVE PULMONARY DISEASE, UNSPECIFIED (3) Dialysis patient Code(s): Z99.2 - DEPENDENCE ON RENAL DIALYSIS (4) HTN (hypertension) Code(s): I10 - ESSENTIAL (PRIMARY) HYPERTENSION (5) Sepsis Code(s): A41.9 - SEPSIS, UNSPECIFIED ORGANISM (6) Anemia Code(s): D64.9 - ANEMIA, UNSPECIFIED Qualifiers: Anemia type: unspecified type Qualified Code(s): D64.9 - Anemia, unspecified (7) Diabetes Code(s): E11.9 - TYPE 2 DIABETES MELLITUS WITHOUT COMPLICATIONS Qualifiers: (8) UTI (urinary tract infection) Code(s): N39.0 - URINARY TRACT INFECTION, SITE NOT SPECIFIED Assessment/Plan E. coli ESBL+ UTI ESRD on HD , s/p Lt AVF Infected Sacral Hip DUs - Bone scan negative for OM - d/c Vancomycin, cont meropenem -cont monitor/wound care
[2017-03-15] MEDS: MIRTAZAPINE 15 MG TABLET (FP) PO SCH (22:04)
[2017-03-16] MEDS ORDERED: PT OWN MED DRAWER 7, Y5N ONE ×2 (06:01→08:24)
[2017-03-16] MEDS: MEROPENEM 500 MG PUSH 500 MG/10 ML DISP.SYRIN IVPUSH SCH ×2 (06:31→18:03)
[2017-03-16] MEDS: INSULIN DETEMIR 100 UNITS/ML MDV SQ SCH ×2 (06:31→17:41)
[2017-03-16] MEDS: ALBUTEROL SO4 0.083% IH SOL 2.5 MG/3 ML VIAL.NEB. NEB SCH ×4 (06:55→23:09)
[2017-03-16] MEDS: CALCIUM ACETATE 667 MG CAPSULE (FP) PO SCH ×3 (09:00→17:41)
[2017-03-16] MEDS: SERTRALINE HCL 50 MG TABLET (FP) PO SCH (09:00)
[2017-03-16] MEDS: FINASTERIDE 5 MG TABLET (FP) PO SCH (09:00)
[2017-03-16] MEDS: METOPROLOL SUCCINATE 25 MG TAB.SR.24H (FP) PO SCH ×2 (09:00→21:43)
[2017-03-16] MEDS: ACETAMINOPHEN 325 MG TABLET (FP) PO PRN (10:31)
--- NOTE | 2017-03-16 13:16 | PN ---
Progress Note (short form) - Note Progress Note: Pt seen/ examined. comfortable s/p avf placement denies pain. afebrile eating lunch Vital Signs Temp 98.9 F 03/16/17 05:56 Pulse 95 H 03/16/17 05:56 Resp 18 03/16/17 05:56 BP 108/58 03/16/17 05:56 Pulse Ox 97 03/15/17 21:00 Intake & Output 03/15/17 03/16/17 03/16/17 23:59 11:59 23:59 Intake Total 100 60 Balance 100 60 Intake: IV 10 22 L FA 03/13 10 Oral 100 50 Other: Voiding Method Incontinent # Unmeasured Voids Void 2 Bowel Movement No Yes Active Medications Acetaminophen (Tylenol Suppository -) 650 mg [place] Q6H PRN PRN Reason: FEVER OR PAIN Acetaminophen (Tylenol -) 650 mg PO Q6H PRN PRN Reason: FEVER OR PAIN Last Admin: 03/16/17 10:31 Dose: 650 mg Albuterol Sulfate (Ventolin 0.083% Nebulizer Soln -) 1 amp NEB QIDR [facility] Last Admin: 03/16/17 11:58 Dose: Not Given Calcium Acetate (Phoslo -) 1,334 mg PO TIDCM [facility] Last Admin: 03/16/17 12:15 Dose: 1,334 mg Fentanyl (Sublimaze Injection -) 50 mcg IVPUSH [id number] PRN PRN Reason: PAIN Finasteride (Proscar -) 5 mg PO DAILY [facility] Last Admin: 03/16/17 09:00 Dose: 5 mg Meropenem (Merrem (Restricted To Id) -) 500 mg in 10 mls @ 120 mls/hr IVPUSH Q12H [facility] Last Admin: 03/16/17 06:31 Dose: 120 mls/hr Insulin Detemir (Levemir Vial) 8 units SQ BIDAC [facility] Last Admin: 03/16/17 06:31 Dose: 8 units Metoprolol Succinate (Toprol Xl -) 25 mg PO BID [facility] Last Admin: 03/16/17 09:00 Dose: 25 mg Mirtazapine (Remeron -) 15 mg PO HS [facility] Last Admin: 03/15/17 22:04 Dose: Not Given Ondansetron HCl (Zofran Injection) 4 mg IVPUSH Q6H PRN PRN Reason: NAUSEA AND/OR VOMITING Last Admin: 03/14/17 23:04 Dose: 4 mg Sertraline HCl (Zoloft -) 50 mg PO DAILY [facility] Last Admin: 03/16/17 09:00 Dose: 50 mg CBC, BMP 03/15/17 10:14 03/15/17 09:45 Physical Exam Constitutional: Yes: No Distress. comfortable. Cardiovascular: Yes: Regular Rate and Rhythm Respiratory: Yes: Diminished Gastrointestinal: Yes: Normal Bowel Sounds, Soft. No: Distention, Tenderness Edema: No Neuro - alert and awake Problem List - Problems (1) CHF (congestive heart failure) Code(s): I50.9 - HEART FAILURE, UNSPECIFIED (2) End stage kidney disease Code(s): N18.6 - END STAGE RENAL DISEASE (3) HTN (hypertension) Code(s): I10 - ESSENTIAL (PRIMARY) HYPERTENSION (4) Sepsis Code(s): A41.9 - SEPSIS, UNSPECIFIED ORGANISM Assessment/Plan PLAN Anemia --s/p transfusion PRBC -- GI eval--pt refused interventions -- monitor CBC-stable, Hb usually 8 ESRD on HD -- HD per Renal -- s/p permacath placement chest wall -- femoral shiley removed -- s/p Rt AVG -- Sepsis -- due to UTI, sacral decubiti-local care -- xrays of hips and sacrum noted ---- wound care eval --bone scan -- -ve -- IV antibiotics-- per i/d Hypotension -- BP better -- DVT prophylaxis -- SCD overall stable continue care . will follow.
--- NOTE | 2017-03-16 16:54 | PN ---
Progress Note, Physician History of Present Illness: Pt feels well. Has no specific new complaints. Remains afebrile. - Current Medication List Current Medications: Active Medications Acetaminophen (Tylenol Suppository -) 650 mg [place] Q6H PRN PRN Reason: FEVER OR PAIN Acetaminophen (Tylenol -) 650 mg PO Q6H PRN PRN Reason: FEVER OR PAIN Last Admin: 03/16/17 10:31 Dose: 650 mg Albuterol Sulfate (Ventolin 0.083% Nebulizer Soln -) 1 amp NEB QIDR [facility] Last Admin: 03/16/17 11:58 Dose: Not Given Calcium Acetate (Phoslo -) 1,334 mg PO TIDCM [facility] Last Admin: 03/16/17 12:15 Dose: 1,334 mg Fentanyl (Sublimaze Injection -) 50 mcg IVPUSH [id number] PRN PRN Reason: PAIN Finasteride (Proscar -) 5 mg PO DAILY [facility] Last Admin: 03/16/17 09:00 Dose: 5 mg Meropenem (Merrem (Restricted To Id) -) 500 mg in 10 mls @ 120 mls/hr IVPUSH Q12H [facility] Last Admin: 03/16/17 06:31 Dose: 120 mls/hr Insulin Detemir (Levemir Vial) 8 units SQ BIDAC [facility] Last Admin: 03/16/17 06:31 Dose: 8 units Metoprolol Succinate (Toprol Xl -) 25 mg PO BID [facility] Last Admin: 03/16/17 09:00 Dose: 25 mg Mirtazapine (Remeron -) 15 mg PO HS [facility] Last Admin: 03/15/17 22:04 Dose: Not Given Ondansetron HCl (Zofran Injection) 4 mg IVPUSH Q6H PRN PRN Reason: NAUSEA AND/OR VOMITING Last Admin: 03/14/17 23:04 Dose: 4 mg Sertraline HCl (Zoloft -) 50 mg PO DAILY [facility] Last Admin: 03/16/17 09:00 Dose: 50 mg - Objective Vital Signs: Vital Signs Temperature 98 F 03/16/17 10:00 Pulse Rate 100 H 03/16/17 10:00 Respiratory Rate 18 03/16/17 10:00 Blood Pressure 116/66 03/16/17 10:00 O2 Sat by Pulse Oximetry (%) 97 03/16/17 09:00 Constitutional: Yes: No Distress, Calm Neck: Yes: Supple Cardiovascular: Yes: Regular Rate and Rhythm Respiratory: Yes: CTA Bilaterally Gastrointestinal: Yes: Normal Bowel Sounds, Soft Integumentary: Yes: WNL Neurological: Yes: Alert Labs: CBC, BMP 03/15/17 10:14 03/15/17 09:45 INR, PTT INR 1.47 (0.82-1.09) H 03/08/17 15:05 Problem List - Problems (1) CHF (congestive heart failure) Code(s): I50.9 - HEART FAILURE, UNSPECIFIED (2) COPD (chronic obstructive pulmonary disease) Code(s): J44.9 - CHRONIC OBSTRUCTIVE PULMONARY DISEASE, UNSPECIFIED (3) Dialysis patient Code(s): Z99.2 - DEPENDENCE ON RENAL DIALYSIS (4) HTN (hypertension) Code(s): I10 - ESSENTIAL (PRIMARY) HYPERTENSION (5) Sepsis Code(s): A41.9 - SEPSIS, UNSPECIFIED ORGANISM (6) Anemia Code(s): D64.9 - ANEMIA, UNSPECIFIED Qualifiers: Anemia type: unspecified type Qualified Code(s): D64.9 - Anemia, unspecified (7) Diabetes Code(s): E11.9 - TYPE 2 DIABETES MELLITUS WITHOUT COMPLICATIONS Qualifiers: (8) UTI (urinary tract infection) Code(s): N39.0 - URINARY TRACT INFECTION, SITE NOT SPECIFIED Assessment/Plan 67 y.o. male admitted with sepsis, renal failure now on HD ESBL+ E. coli UTI Infected Sacral/Ischial DUs - OM ruled out - on Meropenem x 8 more days pt appears stable at this time
[2017-03-16] MEDS ORDERED: INSULIN DETEMIR 100 UNITS/ML MDV SQ ONE (17:49)
[2017-03-16] MEDS: MIRTAZAPINE 15 MG TABLET (FP) PO SCH (21:44)
[2017-03-17] MEDS: MEROPENEM 500 MG PUSH 500 MG/10 ML DISP.SYRIN IVPUSH SCH ×2 (06:20→18:07)
[2017-03-17] MEDS: INSULIN DETEMIR 100 UNITS/ML MDV SQ SCH ×2 (06:20→17:13)
[2017-03-17] MEDS: ALBUTEROL SO4 0.083% IH SOL 2.5 MG/3 ML VIAL.NEB. NEB SCH (07:05)
[2017-03-17] MEDS: CALCIUM ACETATE 667 MG CAPSULE (FP) PO SCH ×3 (08:09→17:12)
--- NOTE | 2017-03-17 09:43 | DS ---
Physical Examination Vital Signs: Vital Signs Temperature 98.8 F 03/17/17 09:42 Pulse Rate 100 H 03/17/17 09:42 Respiratory Rate 18 03/17/17 09:42 Blood Pressure 110/60 03/17/17 09:42 O2 Sat by Pulse Oximetry (%) 96 03/16/17 21:00 Labs: CBC, BMP 03/15/17 10:14 03/15/17 09:45 Discharge Summary Reason For Visit: SEPSIS UTI,ESRF,HYPERKALEMIA,MRSA Current Active Problems Hyperkalemia (Acute) Sepsis secondary to UTI (Acute) End stage kidney disease (Chronic) Condition: Guarded - Instructions Referrals: Torin Salguero MD [Primary Care Provider] - - Home Medications Comprehensive Discharge Medication List: Ambulatory Orders Acetaminophen [Tylenol] 650 mg PO Q6H PRN 02/28/17 Albuterol 0.083% Nebulizer Myrna [Ventolin 0.083% Nebulizer Soln -] 1 neb NEB Q6H 02/28/17 Calcium Acetate [Phoslo -] 1,334 mg PO TIDCM 02/28/17 Collagenase Clostridium Hist. [Santyl -] 1 applic TP DAILY 02/28/17 Finasteride [Proscar] 5 mg PO DAILY 02/28/17 Furosemide [Lasix] 80 mg PO DAILY 02/28/17 Insulin (Levemir) [Levemir Vial] 10 units SQ BID 02/28/17 Insulin Aspart [Novolog] 0 unit SQ ASDIR 02/28/17 Mag Hydrox/Al Hydrox/Simeth [Adrienne-Lanta Liquid] 10 ml PO QID 02/28/17 Metoprolol Succinate [Toprol XL -] 25 mg PO BID 02/28/17 Mirtazapine [Remeron -] 15 mg PO DAILY 02/28/17 Sertraline HCl 50 mg PO DAILY 02/28/17 Vit A/Vitamin D3/E/Aloe V/Znox [Periguard Ointment] 15 gm TP DAILY 02/28/17 Vitamin B Comp W-C [Nephro-Rebecca -] 1 tablet PO DAILY 02/28/17
[2017-03-17 10:55] LABS: MCH 26.8 pg (25.7-33.7); MCHC 31.5 g/dl (32.0-35.9); MEAN CELL VOLUME 85.2 fl (80-96); MEAN PLT VOLUME 7.3 fl (7.5-11.1); PLATELET COUNT 215 K/MM3 (134-434); RDW 17.6 % (11.9-15.9); WHITE BLOOD COUNT 8.8 K/mm3 (4.0-10.0)
--- NOTE | 2017-03-17 11:04 | PN ---
Progress Note (short form) - Note Progress Note: Vascular surgery Patient seen and examined at bedside no complaints POD #3 s/p Right AVF fistula AVSS Afebrile Right arm AVF has good palpable thrill. right arm well perfused Patient for dsicharge follow up for fistula maturation case discussed with Dr. Longoria
[2017-03-17] MEDS: FINASTERIDE 5 MG TABLET (FP) PO SCH (11:57)
[2017-03-17] MEDS: METOPROLOL SUCCINATE 25 MG TAB.SR.24H (FP) PO SCH (11:57)
[2017-03-17] MEDS: SERTRALINE HCL 50 MG TABLET (FP) PO SCH (11:57)
--- NOTE | 2017-03-17 14:22 | PN ---
Progress Note, Physician History of Present Illness: Pt states he feels well. He is afebrile without specific complaints. For d/c today. - Current Medication List Current Medications: Active Medications Acetaminophen (Tylenol Suppository -) 650 mg [place] Q6H PRN PRN Reason: FEVER OR PAIN Acetaminophen (Tylenol -) 650 mg PO Q6H PRN PRN Reason: FEVER OR PAIN Last Admin: 03/16/17 10:31 Dose: 650 mg Calcium Acetate (Phoslo -) 1,334 mg PO TIDCM [facility] Last Admin: 03/17/17 11:59 Dose: 1,334 mg Fentanyl (Sublimaze Injection -) 50 mcg IVPUSH [id number] PRN PRN Reason: PAIN Finasteride (Proscar -) 5 mg PO DAILY [facility] Last Admin: 03/17/17 11:57 Dose: 5 mg Meropenem (Merrem (Restricted To Id) -) 500 mg in 10 mls @ 120 mls/hr IVPUSH Q12H [facility] Last Admin: 03/17/17 06:20 Dose: 120 mls/hr Insulin Detemir (Levemir Vial) 8 units SQ BIDAC [facility] Last Admin: 03/17/17 06:20 Dose: Not Given Metoprolol Succinate (Toprol Xl -) 25 mg PO BID [facility] Last Admin: 03/17/17 11:57 Dose: 25 mg Mirtazapine (Remeron -) 15 mg PO HS [facility] Last Admin: 03/16/17 21:44 Dose: Not Given Ondansetron HCl (Zofran Injection) 4 mg IVPUSH Q6H PRN PRN Reason: NAUSEA AND/OR VOMITING Last Admin: 03/14/17 23:04 Dose: 4 mg Sertraline HCl (Zoloft -) 50 mg PO DAILY [facility] Last Admin: 03/17/17 11:57 Dose: 50 mg - Objective Vital Signs: Vital Signs Temperature 98.8 F 03/17/17 09:42 Pulse Rate 63 03/17/17 10:45 Respiratory Rate 18 03/17/17 09:42 Blood Pressure 110/60 03/17/17 09:42 O2 Sat by Pulse Oximetry (%) 97 03/17/17 10:45 Constitutional: Yes: No Distress Neck: Yes: Supple Cardiovascular: Yes: Regular Rate and Rhythm Respiratory: Yes: CTA Bilaterally Gastrointestinal: Yes: Normal Bowel Sounds, Soft Genitourinary: Yes: WNL Integumentary: Yes: Pressure Ulcer (dressing intact) Neurological: Yes: Alert, Oriented Labs: CBC, BMP 03/17/17 10:30 03/15/17 09:45 INR, PTT INR 1.47 (0.82-1.09) H 03/08/17 15:05 Problem List - Problems (1) CHF (congestive heart failure) Code(s): I50.9 - HEART FAILURE, UNSPECIFIED (2) COPD (chronic obstructive pulmonary disease) Code(s): J44.9 - CHRONIC OBSTRUCTIVE PULMONARY DISEASE, UNSPECIFIED (3) Dialysis patient Code(s): Z99.2 - DEPENDENCE ON RENAL DIALYSIS (4) HTN (hypertension) Code(s): I10 - ESSENTIAL (PRIMARY) HYPERTENSION (5) Sepsis Code(s): A41.9 - SEPSIS, UNSPECIFIED ORGANISM (6) Anemia Code(s): D64.9 - ANEMIA, UNSPECIFIED Qualifiers: Anemia type: unspecified type Qualified Code(s): D64.9 - Anemia, unspecified (7) Diabetes Code(s): E11.9 - TYPE 2 DIABETES MELLITUS WITHOUT COMPLICATIONS Qualifiers: (8) UTI (urinary tract infection) Code(s): N39.0 - URINARY TRACT INFECTION, SITE NOT SPECIFIED Assessment/Plan 67 y.o. male admitted with sepsis, renal failure now on HD s/p RUE AVF ESBL+ E. coli UTI Infected Sacral/Ischial DUs - OM ruled out - on Meropenem x one more wk for d/c today pt appears stable at this time
[2017-03-17] MEDS ORDERED: MAG HYDROX/AL HYDROX/SIMETH 30 ML UNIT-DOSE CUP PO ONE (16:45)
--- NOTE | 2017-03-17 16:50 | PN ---
Progress Note (short form) - Note Progress Note: Renal follow up for ESRD on HD Pt seen and examined at the bedside awake and alert no complaints last dialysis was friday Vital Signs Temperature 97.8 F 03/17/17 14:00 Pulse Rate 101 H 03/17/17 14:00 Respiratory Rate 20 03/17/17 14:00 Blood Pressure 114/62 03/17/17 14:00 O2 Sat by Pulse Oximetry (%) 97 03/17/17 10:45 Intake & Output 03/14/17 03/15/17 03/16/17 03/17/17 23:59 23:59 23:59 23:59 Intake Total 867 746 6125 Output Total 30 Balance 602 955 9603 Weight 70.443 kg NAD awake and alet RRR dec Bs lung bases No LE edema rigth IJ permacath CBC, BMP 03/17/17 10:30 03/15/17 09:45 Current Medications Acetaminophen (Tylenol Suppository -) 650 mg VA Q6H PRN PRN Reason: FEVER OR PAIN Acetaminophen (Tylenol -) 650 mg PO Q6H PRN PRN Reason: FEVER OR PAIN Last Admin: 03/16/17 10:31 Dose: 650 mg Calcium Acetate (Phoslo -) 1,334 mg PO TIDCM [facility] Last Admin: 03/17/17 11:59 Dose: 1,334 mg Fentanyl (Sublimaze Injection -) 50 mcg IVPUSH [id number] PRN PRN Reason: PAIN Finasteride (Proscar -) 5 mg PO DAILY [facility] Last Admin: 03/17/17 11:57 Dose: 5 mg Meropenem (Merrem (Restricted To Id) -) 500 mg in 10 mls @ 120 mls/hr IVPUSH Q12H [facility] Last Admin: 03/17/17 06:20 Dose: 120 mls/hr Insulin Detemir (Levemir Vial) 8 units SQ BIDAC [facility] Last Admin: 03/17/17 06:20 Dose: Not Given Metoprolol Succinate (Toprol Xl -) 25 mg PO BID [facility] Last Admin: 03/17/17 11:57 Dose: 25 mg Mirtazapine (Remeron -) 15 mg PO HS [facility] Last Admin: 03/16/17 21:44 Dose: Not Given Ondansetron HCl (Zofran Injection) 4 mg IVPUSH Q6H PRN PRN Reason: NAUSEA AND/OR VOMITING Last Admin: 03/14/17 23:04 Dose: 4 mg Sertraline HCl (Zoloft -) 50 mg PO DAILY [facility] Last Admin: 03/17/17 11:57 Dose: 50 mg 67 year old Gentleman with PMHx of ESRD on HD, IDDM, Hypertension, chornic anemia who presented with dislodged dialysis catheter. #ESRD with dislodged dialysis catheter s/p dialysis Friday no acute indication for SEW ON OPERATOR today next treatment planned for tomorrow #Anemia additional PRBC transfusion today #Infected Sacral wounds Continue Abx as per NATHALIA Vanegas DO
[2017-03-17] MEDS ORDERED: PT OWN MED DRAWER 7, Y5N ONE (16:58)
[2017-03-17] MEDS ORDERED: INSULIN DETEMIR 100 UNITS/ML MDV SQ ONE (17:48)
[2017-03-17 18:23] VITALS: BP 100/60; PULSE 98; TEMP 99
== END 2017-03-17 19:17 | DRG 853 ==
LOC: JER 14:23 → J2W 21:07 → JER 21:28 → J4W 03-14 19:00
PROVIDERS: ADMIT Internal Medicine; ATTEND Internal Medicine
PROC: 06HN33Z Insertion of Infusion Device into Left Femoral Vein, Percutaneous Approach (ICD-10-PCS; 2017-03-08)
PROC: B54CZZA Ultrasonography of Left Lower Extremity Veins, Guidance (ICD-10-PCS; 2017-03-08)
PROC: 5A1D70Z Performance of Urinary Filtration, Intermittent, Less than 6 Hours Per Day (ICD-10-PCS; 2017-03-09)
PROC: 02HV33Z Insertion of Infusion Device into Superior Vena Cava, Percutaneous Approach (ICD-10-PCS; 2017-03-10)
PROC: B548ZZA Ultrasonography of Superior Vena Cava, Guidance (ICD-10-PCS; 2017-03-10)
PROC: 051 Upper Veins, Bypass (ICD-10-PCS; principal; 2017-03-14 15:00)
DX: A41.9 Sepsis, unspecified organism (principal); N18.6 End stage renal disease; G93.41 Metabolic encephalopathy; L89.154 Pressure ulcer of sacral region, stage 4; I13.2 Hypertensive heart and chronic kidney disease with heart failure and with stage 5 chronic kidney disease, or end stage renal disease; R64 Cachexia; N17.9 Acute kidney failure, unspecified; N39.0 Urinary tract infection, site not specified; T82.42XA Displacement of vascular dialysis catheter, initial encounter; E87.5 Hyperkalemia; J44.9 Chronic obstructive pulmonary disease, unspecified; E11.22 Type 2 diabetes mellitus with diabetic chronic kidney disease; I50.9 Heart failure, unspecified; Z99.2 Dependence on renal dialysis; Z87.891 Personal history of nicotine dependence; Z79.4 Long term (current) use of insulin; D64.9 Anemia, unspecified; I25.2 Old myocardial infarction; Y83.8 Other surgical procedures as the cause of abnormal reaction of the patient, or of later complication, without mention of misadventure at the time of the procedure; Z68.21 Body mass index [BMI] 21.0-21.9, adult; B96.20 Unspecified Escherichia coli [E. coli] as the cause of diseases classified elsewhere
CPT/HCPCS: 36415; 36430; 36511; 71010-TC; 72220-TC; 73502-TC-LT; 73502-TC-RT; 76000-TC; 78315-TC; 80048; 80053; 81003; 81015; 82272; 82550; 83036; 83605; 83735; 84100; 84484; 85025; 85027; 85610; 85730; 86850; 86900; 86901; 86922; 87040; 87070; 87086; 87186; 87205; 93005; 93010; 93931; 93971; 94640; 94760; 99284-25; A9503; G0480; J0885; J1644; P9038; P9058

== ENCOUNTER 2017-03-30 15:06 | Inpatient (IN) | payer OTHER ==
[2017-03-30] MEDS ORDERED: ASPIRIN 325 MG TABLET PO ONE (15:30)
--- NOTE | 2017-03-30 15:34 | PDOC ---
History of Present Illness - General History Source: Patient - History of Present Illness Presenting Symptoms: Chest Pain Timing/Duration: reports: intermittent <Maribel Nguyễn - Last Filed: 03/30/17 17:51> <Mary Richey - Last Filed: 04/01/17 11:07> - General Chief Complaint: Chest Pain Stated Complaint: CHEST PAIN Time Seen by Provider: 03/30/17 15:25 Past History - Past Medical History Anemia: Yes Asthma: Yes Cardiac Disorders: Yes (MA January 2016) COPD: Yes CHF: Yes Diabetes: Yes (IDDM) Dialysis: Yes Disorders: Yes (BPH.) HTN: Yes Kidney Stones: (ESRD.) Psychiatric Problems: Yes (DEPRESSION.) - Suicide/Smoking/Psychosocial Hx Smoking History: Former smoker Have you smoked in the past 12 months: No Number of Cigarettes Smoked Daily: 20 If you are a former smoker, when did you quit?: january 2016 Information on smoking cessation initiated: No 'Breaking Loose' booklet given: 08/12/16 Hx Alcohol Use: No Drug/Substance Use Hx: No Substance Use Type: None Hx Substance Use Treatment: No <Maribel Nguyễn - Last Filed: 03/30/17 17:51> <Mary Richey - Last Filed: 04/01/17 11:07> - Past Medical History Allergies/Adverse Reactions: Allergies Allergy/AdvReac Type Severity Reaction Status Date / Time No Known Allergies Allergy Verified 03/30/17 15:07 Home Medications: Ambulatory Orders Acetaminophen [Tylenol] 650 mg PO Q6H PRN 03/30/17 Albuterol 0.083% Nebulizer Myrna [Ventolin 0.083% Nebulizer Soln -] 1 neb NEB Q6H 03/30/17 Calcium Acetate 2 cap PO TID 03/30/17 Collagenase Clostridium Hist. [Santyl] 1 applic TP DAILY 03/30/17 Finasteride [Proscar] 5 mg PO DAILY 03/30/17 Furosemide [Lasix] 80 mg PO DAILY 03/30/17 Insulin (LOG) Aspart [NovoLOG -] 0 units SQ BID PRN 03/30/17 Insulin (Levemir) [Levemir Vial] 10 units SQ BID 03/30/17 Metoprolol Succinate [Toprol Xl -] 25 mg PO BID 03/30/17 Metronidazole [Flagyl -] 500 mg PO Q8H 03/30/17 Mirtazapine [Remeron -] 15 mg PO HS 03/30/17 Ondansetron HCl [Zofran] 4 mg PO Q8H PRN 03/30/17 Sertraline HCl [Zoloft -] 75 mg PO DAILY 03/30/17 Vit A/Vitamin D3/E/Aloe V/Znox [Periguard Ointment] 0 gm TP ASDIR 03/30/17 Vitamin B Comp W-C [Nephro-Rebecca -] 1 tablet PO DAILY 03/30/17 Review of Systems - Review of Systems Constitutional: No: Chills, Fever Respiratory: No: Cough, Shortness of Breath Cardiac (ROS): Yes: Chest Pain. No: Lightheadedness, Palpitations, Syncope <Maribel Nguyễn - Last Filed: 03/30/17 17:51> *Physical Exam - Physical Exam General Appearance: Yes: Appropriately Dressed. No: Apparent Distress HEENT: positive: Normal Voice Neck: positive: Supple Respiratory/Chest: positive: Lungs Clear, Normal Breath Sounds. negative: Respiratory Distress Cardiovascular: positive: Regular Rate, S1, S2 Gastrointestinal/Abdominal: positive: Soft. negative: Tender Extremity: positive: Normal Inspection Integumentary: positive: Dry, Warm Neurologic: positive: Fully Oriented, Alert, Normal Mood/Affect <Maribel Nguyễn - Last Filed: 03/30/17 17:51> - Vital Signs Last Vital Signs Temp Pulse Resp BP Pulse Ox 97.9 F 94 H 18 96/50 95 04/01/17 06:00 04/01/17 06:00 04/01/17 06:00 04/01/17 06:00 03/31/17 21:00 Heart Score/ECG Review - History History: Slightly suspicious - Electrocardiogram EKG: Non specific repolarization disturbance - Age Age: >/= 65 - Risk Factors Risk Factors Heart Score: Yes Hx Hypertension, Yes Hx Diabetes Based on the list above the patient has:: >/=3 risk factors or Hx atherosclerotic disease - Troponin Troponin: </= normal limit - Score Heart Score - Total: 5 <Maribel Nguyễn - Last Filed: 03/30/17 17:51> <Mary Richey - Last Filed: 04/01/17 11:07> - ECG Intrepretation Comment:: 03/30/17 16:47 Sinus tach to 103 bpm with T-wave inversions in V5 and V6, similar to EKG 02/27 (Maribel Nguyễn) ED Treatment Course - LABORATORY CBC & Chemistry Diagram: 03/30/17 15:50 03/30/17 15:50 <Maribel Nguyễn - Last Filed: 03/30/17 17:51> - LABORATORY CBC & Chemistry Diagram: 03/31/17 07:22 03/31/17 07:22 <Mary Richey - Last Filed: 04/01/17 11:07> - ADDITIONAL ORDERS Additional order review: 03/30/17 15:50 RBC 2.93 L MCV 88.7 MCHC 31.3 L RDW 20.4 H D MPV 6.8 L Neutrophils % 62.2 D Lymphocytes % 24.9 D Monocytes % 10.6 H Eosinophils % 1.3 Basophils % 1.0 - Medications Given in the ED: ED Medications Discontinued Medications Generic Name Dose Route Start Last Admin Trade Name Silver PRN Reason Stop Dose Admin Aspirin 325 mg 03/30/17 15:30 03/30/17 16:39 Asa - PO 03/30/17 15:31 Not Given ONCE ONE Calcium Gluconate 1,000 mg 03/30/17 17:10 03/30/17 17:42 Calcium Gluconate 10% - IVPUSH 03/30/17 17:11 1,000 mg ONCE ONE Administration Dextrose 25 gm 03/30/17 17:11 03/30/17 17:36 D50w (Vial) - IVPUSH 03/30/17 17:12 25 gm NOW ONE Administration Dextrose 25 gm 03/30/17 21:22 03/30/17 21:22 D50w (Vial) - IVPUSH 03/30/17 21:23 25 gm NOW ONE Administration Dextrose 25 gm 03/30/17 21:22 03/30/17 21:25 D50w (Vial) - IVPUSH 03/30/17 21:23 25 gm ONCE ONE Administration Furosemide 80 mg 03/30/17 17:54 03/30/17 18:13 Lasix Injection - IVPUSH 03/30/17 17:55 80 mg ONCE ONE Administration Vancomycin HCl 1,000 mg/ 250 mls @ 166.667 mls/hr 03/31/17 17:00 03/31/17 17: 19 Dextrose IVPB 03/31/17 18:29 166.667 mls/hr ONCE ONE Administration Insulin Detemir 10 units 03/30/17 22:00 03/31/17 06:07 Levemir Vial SQ Not Given BID@0700,2200 [facility] Insulin Human Regular 10 units 03/30/17 17:11 03/30/17 17:38 Novolin R Vial *For Ivpush Or Iv Drip Only* IVPUSH 03/30/17 17:12 10 unit ONCE ONE Administration Ondansetron HCl 4 mg 03/30/17 16:45 03/30/17 17:40 Zofran Injection IVPUSH 03/30/17 16:46 4 mg ONCE ONE Administration Sodium Polystyrene Sulfonate 30 gm 03/30/17 17:10 03/30/17 17:35 Kayexalate - PO 03/30/17 17:11 30 gm ONCE ONE Administration Medical Decision Making <Maribel Nguyễn - Last Filed: 03/30/17 17:51> <Mary Richey - Last Filed: 04/01/17 11:07> - Medical Decision Making 03/30/17 15:32 67-year-old male, resident at [facility], history of hypertension, MA, CHF, COPD , diabetes, sacral decubital ulcers, end-stage renal disease on dialysis, last dialyzed yesterday, anemia, status post transfusion, UTI, here with chest pain. Patient reports substernal, not radiating chest pain that started today. Feels like pressure, comes and goes, lasts for seconds each time, worse with deep inspiration only. Also reports nausea, no vomiting, shortness of breath, diaphoresis, palpitations, leg pain or swelling, cough, fever or chills. Has had similar pain in the past that self resolved per pt. As per patient does not remember last stress test. States he does not have a intern brand at this time See exam Recurrent CP Hypotensive and mildly tachy in ED R/o ACS, less likely PE as CP recurrent, unlikely dissection or PNA -refusing asa -ekg -cxr -labs -anticipate admission 03/30/17 17:08 Wbc of 13, no obvious source at this time. Multiple sacral decubitus without any obvious sign of infection. UA and chest x-ray pending. K of 6.8. No hemolysis as per lab staff. EKG unchanged compared to prior. First trop neg. Pt states his last dialysis was yesterday. Hyper K cocktail in progress. Will contact renal and PMD and admit 03/30/17 17:22 03/30/17 17:28 Discussed with hospitalist, who is covering for patient's PMD, and patient admitted 03/30/17 17:[address] Guilherme Tan of renal, who states patient non- compliant and pulled himself off dialysis after an hour into session yesterday. Recommends 80 IV milligrams Lasix while in ED. Will arrange dialysis for patient today (Maribel Nguyễn) *DC/Admit/Observation/Transfer - Discharge Dispostion Admit: Yes <Maribel Nguyễn - Last Filed: 03/30/17 17:51> <Mary Richey - Last Filed: 04/01/17 11:07> Diagnosis at time of Disposition: Hyperkalemia Chest pain Qualifiers: Chest pain type: unspecified Qualified Code(s): R07.9 - Chest pain, unspecified - Discharge Dispostion Condition at time of disposition: Fair - Attestations Physician Attestion: I reviewed the case with the mid-level practitioner and agree with the mid- level practitioner's assessment, diagnosis and disposition. (Mary Richey)
[2017-03-30 16:02] LABS: EOS % 1.3 % (0-4.5); HEMOGLOBIN 8.1 GM/dL (11.7-16.9); LYMPH % 24.9 % (8-40); MCH 27.8 pg (25.7-33.7); MCHC 31.3 g/dl (32.0-35.9); MEAN CELL VOLUME 88.7 fl (80-96); MEAN PLT VOLUME 6.8 fl (7.5-11.1); MONO % 10.6 % (3.8-10.2); NEUT % 62.2 % (42.8-82.8); PLATELET COUNT 181 K/MM3 (134-434); RBC 2.93 M/mm3 (4.00-5.60); RDW 20.4 % (11.9-15.9); WHITE BLOOD COUNT 13.4 K/mm3 (4.0-10.0)
[2017-03-30] MEDS ORDERED: ONDANSETRON 4 MG/2 ML VIAL IVPUSH ONE (16:45)
[2017-03-30 16:52] LABS: ALBUMIN 1.9 g/dl (3.4-5.0); ANION GAP 8 (8-16); BILIRUBIN,TOTAL 0.5 mg/dL (0.2-1.0); BLOOD UREA NITROGEN 42 mg/dL (7-18); CALCIUM 8.1 mg/dL (8.5-10.1); CHLORIDE 100 mmol/L (98-107); CO2 25 mmol/L (21-32); CREATININE 4.8 mg/dL (0.7-1.3); GLUCOSE,RANDOM 69 mg/dL (74-106); SGOT/AST 19 U/L (15-37); SODIUM 133 mmol/L (136-145); TOT PROT 6.9 g/dl (6.4-8.2)
[2017-03-30 17:00] LABS: ALK PHOS 140 U/L (45-117); SGPT/ALT 9 U/L (12-78)
[2017-03-30 17:08] LABS: POTASSIUM 6.8 mmol/L (3.5-5.1)
[2017-03-30] MEDS ORDERED: CALCIUM GLUCONATE 10% - 1,000 MG/10 ML VIAL IVPUSH ONE (17:10)
[2017-03-30] MEDS ORDERED: SODIUM POLYSTYRENE SULFONATE 15 GM/60 ML BOTTLE PO ONE (17:10)
[2017-03-30] MEDS ORDERED: INSULIN REGULAR HUMAN 100 UNITS/ML *VIAL IVPUSH ONE (17:11)
[2017-03-30] MEDS ORDERED: DEXTROSE 50%-WATER - 25 GM/50 ML VIAL IVPUSH ONE ×3 (17:11→21:22)
[2017-03-30] MEDS ORDERED: SODIUM POLYSTYRENE SULFONATE 15 GM/60 ML BOTTLE ONE (17:29)
[2017-03-30] MEDS ORDERED: ONDANSETRON 4 MG/2 ML VIAL ONE (17:29)
[2017-03-30] MEDS ORDERED: DEXTROSE 50%-WATER 25 GM/50 ML DISP.SYRIN ONE ×3 (17:29→21:42)
[2017-03-30] MEDS ORDERED: CALCIUM GLUCONATE 10% - 1,000 MG/10 ML VIAL ONE (17:29)
[2017-03-30] MEDS ORDERED: INSULIN REGULAR HUMAN 100 UNITS/ML *VIAL ONE (17:30)
--- NOTE | 2017-03-30 17:31 | HP ---
CHIEF COMPLAINT: Chest pain PCP: Dr. Turk HISTORY OF PRESENT ILLNESS: Patient is a 67 year old male (currently resides at the [facility]) with a significant past medical history of hypertension, IN, CHF, COPD, diabetes, sacral decubitus ulcers, end-stage renal disease on dialysis, (last dialysis was on 03/29/2017 at the [facility]) and UTI. He presents to the ED c/o of chest pain. On admission patient reports substernal, not radiating chest pain that started earlier today. Feels like pressure, comes and goes, lasts for seconds each time , worse with deep inspiration only. Also reports nausea. On exam, denies any further chest pain or shortness of breath, denies any nausea. Asking to go home. Hyperkalemia of 6.8 noted on admission, as per ED physician, renal will see patient today for emergent HD. It was reported that patient was noncompliant with HD yesterday and did not complete full treatment. He has a right shiley catheter for dialysis, has new AV fistula with intact abdias on right upper arm. ER course was notable for: (1) WBC 13.4 (2) hmg 8.1/26 (3) K. 6.8 (4) NA 133 (5) Bun 42/4.8 (6) right shiley catheter, upper right arm fistula with intact abdias (7) chronic pressure ulcers of sacrum (8) Recent Travel: PAST MEDICAL HISTORY: hypertension, IN, CHF, COPD, diabetes, sacral decubitus ulcers, end-stage renal disease on dialysis, (last dialysis was on 03/29/2017 at the [facility]) and UTI PAST SURGICAL HISTORY: right shiley catheter, right upper arm fistula with intact abdias Social History: Smoking: n/a Alcohol: n/a Drugs: n/a Family History: Allergies No Known Allergies Allergy (Verified 03/30/17 15:07) HOME MEDICATIONS: Home Medications Medication Instructions Recorded Acetaminophen [Tylenol] 650 mg PO Q6H PRN 03/30/17 Albuterol 0.083% Nebulizer Myrna 1 neb NEB Q6H 03/30/17 [Ventolin 0.083% Nebulizer Soln -] Calcium Acetate 2 cap PO TID 03/30/17 Collagenase Clostridium Hist. 1 applic TP DAILY 03/30/17 [Santyl] Finasteride [Proscar] 5 mg PO DAILY 03/30/17 Furosemide [Lasix] 80 mg PO DAILY 03/30/17 Insulin (LOG) Aspart [NovoLOG -] 0 units SQ BID PRN 03/30/17 Insulin (Levemir) [Levemir Vial] 10 units SQ BID 03/30/17 Metoprolol Succinate [Toprol Xl -] 25 mg PO BID 03/30/17 Metronidazole [Flagyl -] 500 mg PO Q8H 03/30/17 Mirtazapine [Remeron -] 15 mg PO HS 03/30/17 Ondansetron HCl [Zofran] 4 mg PO Q8H PRN 03/30/17 Sertraline HCl [Zoloft -] 75 mg PO DAILY 03/30/17 Vit A/Vitamin D3/E/Aloe V/Znox 0 gm TP ASDIR 03/30/17 [Periguard Ointment] Vitamin B Comp W-C [Nephro-Rebecca -] 1 tablet PO DAILY 03/30/17 REVIEW OF SYSTEMS CONSTITUTIONAL: Absent: fever, chills, diaphoresis, generalized weakness, malaise, loss of appetite, weight change HEENT: Absent: rhinorrhea, nasal congestion, throat pain, throat swelling, difficulty swallowing, mouth swelling, ear pain, eye pain, visual changes CARDIOVASCULAR: Absent: chest pain, syncope, palpitations, irregular heart rate, lightheadedness , peripheral edema RESPIRATORY: Absent: cough, shortness of breath, dyspnea with exertion, orthopnea, wheezing, stridor, hemoptysis GASTROINTESTINAL: Absent: abdominal pain, abdominal distension, nausea, vomiting, diarrhea, constipation, melena, hematochezia GENITOURINARY: Absent: dysuria, frequency, urgency, hesitancy, hematuria, flank pain, genital pain MUSCULOSKELETAL: Absent: myalgia, arthralgia, joint swelling, back pain, neck pain SKIN: Absent: rash, itching, pallor HEMATOLOGIC/IMMUNOLOGIC: Absent: easy bleeding, easy bruising, lymphadenopathy, frequent infections ENDOCRINE: Absent: unexplained weight gain, unexplained weight loss, heat intolerance, cold intolerance NEUROLOGIC: Absent: headache, focal weakness or paresthesias, dizziness, unsteady gait, seizure, mental status changes, bladder or bowel incontinence PSYCHIATRIC: Absent: anxiety, depression, suicidal or homicidal ideation, hallucinations. PHYSICAL EXAMINATION Vital Signs - 24 hr 03/30/17 03/30/17 15:08 15:30 Temperature 97.9 F Pulse Rate 102 H Respiratory 20 Rate Blood Pressure 94/66 O2 Sat by Pulse 100 100 Oximetry (%) GENERAL: Awake, alert, and fully oriented, in no acute distress. HEAD: Normal with no signs of trauma. EYES: Pupils equal, round and reactive to light, extraocular movements intact, sclera anicteric, conjunctiva clear. No lid lag. EARS, NOSE, THROAT: Ears normal, nares patent, oropharynx clear without exudates. Moist mucous membranes. NECK: Normal range of motion, supple without lymphadenopathy, JVD, or masses. LUNGS: Breath sounds equal, diminished breath sounds bilaterally HEART: Regular rate and rhythm, normal S1 and S2 without murmur, rub or gallop. ABDOMEN: Soft, nontender, not distended, normoactive bowel sounds, no guarding, no rebound, no masses. No hepatomegaly or splenomegaly. MUSCULOSKELETAL: Normal range of motion at all joints. No bony deformities or tenderness. No CVA tenderness. UPPER EXTREMITIES: right arm AV fistula with intact staple, LOWER EXTREMITIES: 2+ pulses, warm, well-perfused. No calf tenderness. No peripheral edema. NEUROLOGICAL: Cranial nerves II-XII intact. Normal speech. Normal gait. PSYCHIATRIC: Cooperative. Good eye contact. Appropriate mood and affect. SKIN: Warm, dry, normal turgor, no rashes or lesions noted, normal capillary refill. Laboratory Results - last 24 hr 03/30/17 03/30/17 15:50 15:50 WBC 13.4 H D RBC 2.93 L Hgb 8.1 L D Hct 26.0 L D MCV 88.7 MCH 27.8 MCHC 31.3 L RDW 20.4 H D Plt Count 181 MPV 6.8 L Neutrophils % 62.2 D Lymphocytes % 24.9 D Monocytes % 10.6 H Eosinophils % 1.3 Basophils % 1.0 Sodium 133 L Potassium 6.8 H* D Chloride 100 Carbon Dioxide 25 Anion Gap 8 BUN 42 H Creatinine 4.8 H Creat Clearance w eGFR 12.20 Random Glucose 69 L D Calcium 8.1 L Total Bilirubin 0.5 AST 19 D ALT 9 L D Alkaline Phosphatase 140 H D Creatine Kinase 51 Troponin I 0.03 D Total Protein 6.9 Albumin 1.9 L ASSESSMENT/PLAN: Patient is a 67 year old male (currently resides at the [facility]) with a significant past medical history of hypertension, IN, CHF, COPD, diabetes, DKA, sacral decubitus ulcers, end-stage renal disease on dialysis, (last dialysis was on 03/29/2017 at the [facility]) and UTI. He presents to the ED c/o of chest pain. On admission patient reports substernal, not radiating chest pain that started earlier today. Feels like pressure, comes and goes, lasts for seconds each time , worse with deep inspiration only. Also reports nausea. On exam, denies any further chest pain or shortness of breath, denies any nausea. Asking to go home. Hyperkalemia of 6.8 noted on admission, as per ED physician, renal will see patient today for emergent HD. It was reported that patient was noncompliant with HD yesterday and did not complete full treatment. He has a right shiley catheter for dialysis, has new AV fistula with intact abdias on right upper arm. Cardiology: Chest pain, acute Rule out ACS Trend troponins EKG unchanged Monitor on tele Cardiology consult in a.m. Renal: ESRD - chronic For dialysis today via right shiley dialysis catheter hmg/hct low stable Has right upper arm AV fistula with intact abdias Electrolyte Imbalance Hyperkalemia @ 6.8 For dialysis today as per renal Endocrine: Diabetes Mellitus Levemir 10 units BID, Novolog ac/hs Monitor BGMs Hematology: Leukocytosis Send for blood cultures, monitor for fevers UA and UC ordered Cardiovascular: On Metoprolol 25mg PO BID Pulmonary: COPD - not in acute exacerbation, monitor Integumentary Chronic sacral pressure ulcer On Santyl F.E.N. Fluids: PO intake adequate Electrolytes: monitor Nutrition: Renal diet Prophylaxis: Heparin BID Visit type - Emergency Visit Emergency Visit: Yes ED Registration Date: 03/30/17 Care time: The patient presented to the Emergency Department on the above date and was hospitalized for further evaluation of their emergent condition. - New Patient This patient is new to me today: Yes Date on this admission: 03/31/17 - Critical Care Critical Care patient: No
[2017-03-30] MEDS ORDERED: ONDANSETRON 4 MG TABLET PO PRN (17:42)
[2017-03-30] MEDS ORDERED: ACETAMINOPHEN 325 MG TABLET (FP) PO PRN (17:42)
[2017-03-30] MEDS ORDERED: FUROSEMIDE 40 MG/4 ML INJECTABLE VIAL IVPUSH ONE (17:54)
[2017-03-30] MEDS ORDERED: FUROSEMIDE 40 MG/4 ML INJECTABLE VIAL ONE (18:08)
--- NOTE | 2017-03-30 21:30 | CON.CARD ---
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 NURSE: Yes: Peripheral Neuropathy Cardio/Vascular: Yes: HTN Pulmonary: Yes: COPD Renal/: Yes: Renal Failure, Renal Inusuff, Hemodialysis Musculoskeletal: Yes: Other (sacral/ischial DUs) Endocrine: Yes: Diabetes Mellitus - Past Surgical History Past Surgical History: Yes: Cholecystectomy - Alcohol/Substance Use Hx Alcohol Use: No - Smoking History Smoking history: Former smoker Have you smoked in the past 12 months: No Aproximately how many cigarettes per day: 20 If you are a former smoker, when did you quit?: january 2016 - Social History Usual Living Arrangement: With Significant Other ADL: Independent History of Recent Travel: No Home Medications - Allergies Allergies/Adverse Reactions: Allergies Allergy/AdvReac Type Severity Reaction Status Date / Time No Known Allergies Allergy Verified 03/30/17 15:07 - Home Medications Home Medications: Ambulatory Orders Acetaminophen [Tylenol] 650 mg PO Q6H PRN 03/30/17 Albuterol 0.083% Nebulizer Myrna [Ventolin 0.083% Nebulizer Soln -] 1 neb NEB Q6H 03/30/17 Calcium Acetate 2 cap PO TID 03/30/17 Collagenase Clostridium Hist. [Santyl] 1 applic TP DAILY 03/30/17 Finasteride [Proscar] 5 mg PO DAILY 03/30/17 Furosemide [Lasix] 80 mg PO DAILY 03/30/17 Insulin (LOG) Aspart [NovoLOG -] 0 units SQ BID PRN 03/30/17 Insulin (Levemir) [Levemir Vial] 10 units SQ BID 03/30/17 Metoprolol Succinate [Toprol Xl -] 25 mg PO BID 03/30/17 Metronidazole [Flagyl -] 500 mg PO Q8H 03/30/17 Mirtazapine [Remeron -] 15 mg PO HS 03/30/17 Ondansetron HCl [Zofran] 4 mg PO Q8H PRN 03/30/17 Sertraline HCl [Zoloft -] 75 mg PO DAILY 03/30/17 Vit A/Vitamin D3/E/Aloe V/Znox [Periguard Ointment] 0 gm TP ASDIR 03/30/17 Vitamin B Comp W-C [Nephro-Rebecca -] 1 tablet PO DAILY 03/30/17 Vital Signs: Vital Signs Temperature 97.9 F 03/30/17 15:08 Pulse Rate 96 H 03/30/17 17:44 Respiratory Rate 20 03/30/17 17:44 Blood Pressure 124/73 03/30/17 17:44 O2 Sat by Pulse Oximetry (%) 98 03/30/17 17:44 - Other Data Labs, Other Data: CBC, BMP 03/30/17 15:50 03/30/17 15:50 Troponin, BNP 03/30/17 03/30/17 15:50 15:50 Troponin I 0.03 D B-Natriuretic Peptide [id number] H Troponin, BNP 03/30/17 03/30/17 15:50 15:50 Troponin I 0.03 D B-Natriuretic Peptide [id number] H Assessment/Plan MPI 01/28 (dipyridamole): no ST changes; inferior fixed defect (reverse distribution) thought to be 2/2 diaphragmatic attenuation. No ischemia/ infarct. Dilated left ventricle with severely reduced systolic function, global. EF 18%. Echo 01/2017: 1+ concentric lvh. 1+ lve. LV fn severely reduced, global. nl rv size, mildly depressed fn. mod-sev eccentric MR. rvsp 40-50. Echo 09/2016: Sev LV dilation. Sev reduced LV function. (global). RV not well visualized. Mobile density c/w torn chordae (veg can't be excluded). Ao not well visualized. RVSP not assessed. (During hospital admit for sepsis) - NL LV function 01/2016. 66 y.o. male with a PMH of HTN, HL, systolic cardiomyopathy CHF, ESRD (on HD), chronic anemia, sacral debubitus ulcers, copd, and IDDM CP: - CE's neg x 2. EKG similar to priors. No evidence of acute acs. Finally has given a description of CP today --> more c/w pleuritic pain. - mgm't of electrolytes per renal, hyperkalemia resolved. - con't tele while here. chronic systolic chf: - noted to have depressed EF during previous admit. cath deferred at that time due to pt admitted non-adherence pattern to meds (e.g. DAPT regimen), known significant anemia with h/o transfusions, and poor candidacy for CABG consideration given frailty, poor mobility with decubitus ulcers, etc. - 01/28 stress test without ischemia, pt managed medically. - here with volume overload 01/28. - bp tolerated metoprolol 37.5 mg bid, but was not sufficient to add nitrates/ hydralazine (no ELIOT sec to hyperkalemia). - was rx'd ASA, statin as well at that time HTN: - meds as above. HPL: - statin.
--- NOTE | 2017-03-30 21:31 | RAPID ---
Physical Examination Vital Signs: Vital Signs Temperature 97.9 F 03/30/17 15:08 Pulse Rate 96 H 03/30/17 17:44 Respiratory Rate 20 03/30/17 17:44 Blood Pressure 124/73 03/30/17 17:44 O2 Sat by Pulse Oximetry (%) 98 03/30/17 17:44 Labs: CBC, BMP 03/30/17 15:50 03/30/17 15:50 Rapid Response - Rapid Response Assessment: Rapid response called overhead. Patient found to be lethargic and diaphoretic. Vital signs stable, O2 sat 95. Patient found to have a BGM of 22. Patient given 2 bolus of D50, 1 PO and 1 IV. Plan: Patient for dialysis, will order EKG and BMP after dialysis. Last K+ 6.8. Will continue to monitor throughout the night.
[2017-03-30] MEDS: HEPARIN NA (PORCINE) 5,000 UNITS/ML 1ML VIAL SQ SCH (23:23)
[2017-03-30] MEDS: INSULIN DETEMIR 100 UNITS/ML MDV SQ SCH (23:23)
[2017-03-30] MEDS: METOPROLOL SUCCINATE 25 MG TAB.SR.24H (FP) PO SCH (23:23)
[2017-03-30] MEDS: MIRTAZAPINE 15 MG TABLET (FP) PO SCH (23:24)
[2017-03-31 00:27] VITALS: BMI 29.4
[2017-03-31 01:28] LABS: ANION GAP 7 (8-16); BLOOD UREA NITROGEN 18 mg/dL (7-18); CALCIUM 7.5 mg/dL (8.5-10.1); CHLORIDE 100 mmol/L (98-107); CO2 31 mmol/L (21-32); CREATININE 2.1 mg/dL (0.7-1.3); GLUCOSE,RANDOM 86 mg/dL (74-106); POTASSIUM 3.7 mmol/L (3.5-5.1); SODIUM 138 mmol/L (136-145)
[2017-03-31] MEDS: INSULIN DETEMIR 100 UNITS/ML MDV SQ SCH (06:07)
[2017-03-31 07:36] LABS: BASO % 0.8 % (0-2.0); EOS % 0.5 % (0-4.5); HEMATOCRIT 23.2 % (35.4-49); HEMOGLOBIN 7.3 GM/dL (11.7-16.9); LYMPH % 29.9 % (8-40); MCH 27.5 pg (25.7-33.7); MCHC 31.6 g/dl (32.0-35.9); MEAN CELL VOLUME 87.1 fl (80-96); MEAN PLT VOLUME 6.7 fl (7.5-11.1); MONO % 8.1 % (3.8-10.2); NEUT % 60.7 % (42.8-82.8); PLATELET COUNT 149 K/MM3 (134-434); RBC 2.66 M/mm3 (4.00-5.60); RDW 20.1 % (11.9-15.9); WHITE BLOOD COUNT 7.8 K/mm3 (4.0-10.0)
[2017-03-31 08:07] LABS: ALBUMIN 1.7 g/dl (3.4-5.0); ANION GAP 7 (8-16); BLOOD UREA NITROGEN 31 mg/dL (7-18); CALCIUM 7.4 mg/dL (8.5-10.1); CHLORIDE 102 mmol/L (98-107); CO2 28 mmol/L (21-32); GLUCOSE,RANDOM 89 mg/dL (74-106); POTASSIUM 5.6 mmol/L (3.5-5.1); SODIUM 137 mmol/L (136-145)
[2017-03-31 08:09] LABS: ALK PHOS 150 U/L (45-117); BILIRUBIN,TOTAL 0.6 mg/dL (0.2-1.0); CHOLESTEROL 88 mg/dL (50-200); CREATININE 3.5 mg/dL (0.7-1.3); HDL CHOLESTEROL 46 mg/dL (40-60); LDL CHOLESTEROL (ONLY SJRH) 44 mg/dL (5-100); SGOT/AST 21 U/L (15-37); SGPT/ALT 9 U/L (12-78); TOT PROT 6.3 g/dl (6.4-8.2); TRIGLYCERIDES 41 mg/dL (35-160)
--- NOTE | 2017-03-31 09:35 | PN ---
Progress Note (short form) - Note Progress Note: patient seen and examined. chart reviewed Comfortable Episodes of hypoglycemia Levemir insulin held Denies chest pain today GA ruled out Vital Signs Temp 97.4 F L 03/31/17 06:00 Pulse 88 03/31/17 06:00 Resp 24 03/31/17 06:00 BP 108/74 03/31/17 06:00 Pulse Ox 99 03/30/17 22:00 Intake & Output 03/30/17 03/30/17 03/31/17 11:59 23:59 11:59 Intake Total 120 Balance 120 Weight 211 lb Intake: Oral 120 Other: Bowel Movement Yes Yes # Bowel Movements 1 1 Height 5 ft 11 in Body Mass Index (BMI) 29.4 Weight Measurement Method Stated by Caregiver Weight Measurement Method Est/Stated by Patient Active Medications Acetaminophen (Tylenol -) 650 mg PO Q6H PRN PRN Reason: FEVER OR PAIN Aspirin (Asa -) 81 mg PO DAILY [facility] Calcium Acetate (Phoslo -) 1,334 mg PO TIDCM [facility] Collagenase (Santyl -) 1 applic TP DAILY [facility] Finasteride (Proscar -) 5 mg PO DAILY [facility] Furosemide (Lasix -) 80 mg PO DAILY [facility] Heparin Sodium (Porcine) (Heparin -) 5,000 unit SQ BID [facility] Last Admin: 03/30/17 23:23 Dose: Not Given Metoprolol Succinate (Toprol Xl -) 25 mg PO BID [facility] Last Admin: 03/30/17 23:23 Dose: Not Given Mirtazapine (Remeron -) 15 mg PO HS [facility] Last Admin: 03/30/17 23:24 Dose: Not Given Ondansetron HCl (Zofran -) 4 mg PO Q8H PRN PRN Reason: NAUSEA AND/OR VOMITING Sertraline HCl 25 mg/ (Sertraline HCl 50 mg) 75 mg PO DAILY [facility] CBC, BMP 03/31/17 07:22 03/31/17 07:22 physical exam alert and awake Lungs--clear CVS--- S1 and S2 regular Abdomen--soft Extremities--- no edema Right upper extremity--- [place] in place Neuro--- alert and awake Assessment and plan Atypical chest pain----GA ruled out Hypoglycemia--- Levamir held Monitor today vascular consult requested--- need to remove abdias from fistula site. Had dialysis yesterday If remains stable----anticipate discharge tomorrow--- Patient in agreement Problem List - Problems (1) Hypoglycemia Code(s): E16.2 - HYPOGLYCEMIA, UNSPECIFIED (2) Chest pain Code(s): R07.9 - CHEST PAIN, UNSPECIFIED Qualifiers: Chest pain type: unspecified Qualified Code(s): R07.9 - Chest pain, unspecified (3) Hyperkalemia Code(s): E87.5 - HYPERKALEMIA
[2017-03-31] MEDS ORDERED: SERTRALINE HCL 50 MG TABLET (FP) ONE (09:59)
[2017-03-31] MEDS ORDERED: SERTRALINE HCL 25 MG TABLET (FP) ONE (09:59)
[2017-03-31] MEDS ORDERED: PT OWN MED DRAWER 7, Y5N ONE (10:00)
[2017-03-31] MEDS ORDERED: SERTRALINE HCL 50 MG TABLET (FP) PO SCH (10:00)
[2017-03-31] MEDS: FUROSEMIDE 40 MG TABLET (FP) PO SCH (10:08)
[2017-03-31] MEDS: SERTRALINE HCL PO SCH (10:08)
[2017-03-31] MEDS: HEPARIN NA (PORCINE) 5,000 UNITS/ML 1ML VIAL SQ SCH ×2 (10:09→22:01)
[2017-03-31] MEDS: CALCIUM ACETATE 667 MG CAPSULE (FP) PO SCH ×3 (10:09→17:19)
[2017-03-31] MEDS: METOPROLOL SUCCINATE 25 MG TAB.SR.24H (FP) PO SCH ×2 (10:10→22:00)
[2017-03-31] MEDS: FINASTERIDE 5 MG TABLET (FP) PO SCH (10:16)
[2017-03-31] MEDS: ASPIRIN 81 MG CHEWABLE TABLETS PO SCH (10:16)
--- NOTE | 2017-03-31 11:05 | CON.CARD ---
Consult Consult Specialty:: cardio Referred by:: yasmin Reason for Consultation:: cp - History of Present Illness Chief Complaint: cp History of Present Illness: 67 yo male here with cp. he states he developed non-exertional sternal region cp, aggravated by breathing in. no radiation, no assctd sob, diaph, LH. has had this before in the past, and was non-cardiac at those times when evaluated by md. pain went away on its own he says. denies sob, orthopnea, palpitations. 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: Peripheral Neuropathy Cardio/Vascular: Yes: HTN Pulmonary: Yes: COPD Renal/: Yes: Renal Failure, Renal Inusuff, Hemodialysis Musculoskeletal: Yes: Other (sacral/ischial DUs) Endocrine: Yes: Diabetes Mellitus - Past Surgical History Past Surgical History: Yes: Cholecystectomy - Alcohol/Substance Use Hx Alcohol Use: No - Smoking History Smoking history: Former smoker Have you smoked in the past 12 months: No Aproximately how many cigarettes per day: 20 If you are a former smoker, when did you quit?: january 2016 - Social History Usual Living Arrangement: With Significant Other ADL: Independent History of Recent Travel: No Home Medications - Allergies Allergies/Adverse Reactions: Allergies Allergy/AdvReac Type Severity Reaction Status Date / Time No Known Allergies Allergy Verified 03/30/17 15:07 - Home Medications Home Medications: Ambulatory Orders Acetaminophen [Tylenol] 650 mg PO Q6H PRN 03/30/17 Albuterol 0.083% Nebulizer Myrna [Ventolin 0.083% Nebulizer Soln -] 1 neb NEB Q6H 03/30/17 Calcium Acetate 2 cap PO TID 03/30/17 Collagenase Clostridium Hist. [Santyl] 1 applic TP DAILY 03/30/17 Finasteride [Proscar] 5 mg PO DAILY 03/30/17 Furosemide [Lasix] 80 mg PO DAILY 03/30/17 Insulin (LOG) Aspart [NovoLOG -] 0 units SQ BID PRN 03/30/17 Insulin (Levemir) [Levemir Vial] 10 units SQ BID 03/30/17 Metoprolol Succinate [Toprol Xl -] 25 mg PO BID 03/30/17 Metronidazole [Flagyl -] 500 mg PO Q8H 03/30/17 Mirtazapine [Remeron -] 15 mg PO HS 03/30/17 Ondansetron HCl [Zofran] 4 mg PO Q8H PRN 03/30/17 Sertraline HCl [Zoloft -] 75 mg PO DAILY 03/30/17 Vit A/Vitamin D3/E/Aloe V/Znox [Periguard Ointment] 0 gm TP ASDIR 03/30/17 Vitamin B Comp W-C [Nephro-Rebecca -] 1 tablet PO DAILY 03/30/17 Family Disease History - Family Disease History Family History: Denies (no known CMP) Review of Systems - Review of Systems Constitutional: denies: Chills, Fever Eyes: denies: Eye Pain HENT: denies: Nasal Congestion Neck: denies: Stiffness Cardiovascular: denies: Palpitations Respiratory: denies: Orthopnea, PND Gastrointestinal: denies: Diarrhea, Rectal Bleeding Genitourinary: denies: Burning, Hematuria Musculoskeletal: denies: Muscle Pain Integumentary: denies: Rash Neurological: denies: Numbness, Seizure, Syncope Endocrine: denies: Excessive Sweating Hematology/Lymphatic: denies: Excessive Bleeding Vital Signs: Vital Signs Temperature 97.4 F L 03/31/17 06:00 Pulse Rate 88 03/31/17 06:00 Respiratory Rate 24 03/31/17 06:00 Blood Pressure 108/74 03/31/17 06:00 O2 Sat by Pulse Oximetry (%) 99 03/30/17 22:00 Constitutional: Yes: Well Nourished, No Distress Eyes: No: Sclera Icterus HENT: No: Nasal Congestion Neck: No: Decreased ROM Respiratory: Yes: CTA Bilaterally (decr sounds diffusely). No: Accessory Muscle Use, Rales, Wheezes Gastrointestinal: Yes: Normal Bowel Sounds. No: Distention, Hepatomegaly, Palpable Mass, Tenderness Cardiovascular: Yes: Regular Rate and Rhythm JVD: No Carotid Bruit: No PMI: Non-Displaced Heart Sounds: Yes: S1, S2. No: Gallop Murmur: No: Systolic Murmur, Diastolic Murmur Musculoskeletal: Yes: Other (No kyphosis) Extremities: No: Cold, Cyanosis Edema: No Peripheral Pulses: 2+ Left Carotid, 2+ Right Carotid, 2+ Left Doralis Pedis, 2+ Right Dorsalis Pedis Integumentary: No: Jaundice Neurological: Yes: Alert, Oriented (x3) Psychiatric: No: Agitated - Other Data Labs, Other Data: CBC, BMP 03/31/17 07:22 03/31/17 07:22 Troponin, BNP 03/30/17 03/30/17 03/30/17 15:50 15:50 21:55 Troponin I 0.03 D B-Natriuretic Peptide 238803 H 03/31/17 03/31/17 00:38 07:22 Troponin I 0.03 0.03 B-Natriuretic Peptide Troponin, BNP 03/30/17 03/30/17 03/30/17 15:50 15:50 21:55 Troponin I 0.03 D B-Natriuretic Peptide [id number] H 03/31/17 03/31/17 00:38 07:22 Troponin I 0.03 0.03 B-Natriuretic Peptide Laboratory Tests 03/30/17 03/31/17 03/31/17 15:50 00:38 07:22 WBC 7.8 D Hgb 7.3 L Plt Count 149 Sodium Potassium Carbon Dioxide BUN Creatinine AST ALT Troponin I 0.03 D 0.03 Triglycerides Cholesterol Total LDL Cholesterol HDL Cholesterol 03/31/17 07:22 WBC Hgb Plt Count Sodium 137 Potassium 5.6 H D Carbon Dioxide 28 BUN 31 H D Creatinine 3.5 H D AST 21 ALT 9 L Troponin I 0.03 Triglycerides 41 D Cholesterol 88 D Total LDL Cholesterol 44 D HDL Cholesterol 46 D tele: NSR Assessment/Plan MPI 01/28 (dipyridamole): no ST changes; inferior fixed defect (reverse distribution) thought to be 2/2 diaphragmatic attenuation. No ischemia/ infarct. Dilated left ventricle with severely reduced systolic function, global. EF 18%. Echo 01/2017: 1+ concentric lvh. 1+ lve. LV fn severely reduced, global. nl rv size, mildly depressed fn. mod-sev eccentric MR. rvsp 40-50. Echo 09/2016: Sev LV dilation. Sev reduced LV function. (global). RV not well visualized. Mobile density c/w torn chordae (veg can't be excluded). Ao not well visualized. RVSP not assessed. (During hospital admit for sepsis) - NL LV function 01/2016. ECG 03/30, 03/31: NSR, ST-Ts anterolateral leads not signif changed vs prior . PVCs (ventric bigeminy on 03/31 strip) 66 y.o. male with a PMH of HTN, HL, systolic cardiomyopathy CHF, ESRD (on HD), chronic anemia, sacral debubitus ulcers, copd, and IDDM here with cp. CP: -non-anginal sx description -trop neg x 3, ecg non-ischemic -highly suspicious this is m-skel etiology (which he's had in past apparently). no further w/u indicated chronic systolic chf: - noted to have depressed EF during previous admit. cath deferred at that time due to pt admitted non-adherence pattern to meds (e.g. DAPT regimen), known significant anemia with h/o transfusions, and poor candidacy for CABG consideration given frailty, poor mobility with decubitus ulcers, etc. - 01/28 stress test without ischemia, pt managed medically. - here with volume overload 01/28. - cont metoprolol 25 mg bid (NH dose). - no ELIOT sec to hyperkalemia. sbp 90s-100s here: will try add low dose nitrates , consider hydralazine later if bp tolerating - was rx'd ASA, statin as well at that time. currently no statin listed on [place] meds per ER note, total chol 88--would not start statin with cholesterol this low (and LDL 40s) - has been on metopr 50mg daily dose since at least 09/28, very unlikely low dose nitrates +/- hydral will improve EF significantly. EF remained severely depressed as of 01/28. - will rpt echo here--if EF remains <35%, needs discussion of primary prevn ICD HTN: - meds as above. ESRD: -per renal anemia: -? sec to ckd -hgb 7s-8s here, stable vs prior baseline -per pmd, renal
--- NOTE | 2017-03-31 11:30 | CON.NEP ---
Consult Consult Specialty:: Nephrology Referred by:: Dr Turk Reason for Consultation:: ESRD on HD - History of Present Illness Chief Complaint: Chest pain History of Present Illness: This is 67 year old gentleman with PMhx of ESRD on HD (TTS, non-complaint with treatment), IDDM, Hypertension, Sacral decubitis ulcer who presented from [facility] with chest pain and found have K of 6.8. Pt cut short his last two outpatient treatments. Pt has a history of non-compliance despite multiple conversations. Pt denies any fever or chills. No chest pain at the present time. No N/V/D. Last dialysis was Friday before urgent dialysis yesterday. - History Source History Provided By: Patient Limitations to Obtaining History: No Limitations - Past Medical History [employer]: Yes: Peripheral Neuropathy Cardio/Vascular: Yes: HTN Pulmonary: Yes: COPD Renal/: Yes: Renal Failure, Renal Inusuff, Hemodialysis Musculoskeletal: Yes: Other (sacral/ischial DUs) Endocrine: Yes: Diabetes Mellitus - Past Surgical History Past Surgical History: Yes: Cholecystectomy - Alcohol/Substance Use Hx Alcohol Use: No - Smoking History Smoking history: Former smoker Have you smoked in the past 12 months: No Aproximately how many cigarettes per day: 20 If you are a former smoker, when did you quit?: january 2016 - Social History Usual Living Arrangement: With Significant Other ADL: Independent History of Recent Travel: No Home Medications - Allergies Allergies/Adverse Reactions: Allergies Allergy/AdvReac Type Severity Reaction Status Date / Time No Known Allergies Allergy Verified 03/30/17 15:07 - Home Medications Home Medications: Ambulatory Orders Acetaminophen [Tylenol] 650 mg PO Q6H PRN 03/30/17 Albuterol 0.083% Nebulizer Myrna [Ventolin 0.083% Nebulizer Soln -] 1 neb NEB Q6H 03/30/17 Calcium Acetate 2 cap PO TID 03/30/17 Collagenase Clostridium Hist. [Santyl] 1 applic TP DAILY 03/30/17 Finasteride [Proscar] 5 mg PO DAILY 03/30/17 Furosemide [Lasix] 80 mg PO DAILY 03/30/17 Insulin (LOG) Aspart [NovoLOG -] 0 units SQ BID PRN 03/30/17 Insulin (Levemir) [Levemir Vial] 10 units SQ BID 03/30/17 Metoprolol Succinate [Toprol Xl -] 25 mg PO BID 03/30/17 Metronidazole [Flagyl -] 500 mg PO Q8H 03/30/17 Mirtazapine [Remeron -] 15 mg PO HS 03/30/17 Ondansetron HCl [Zofran] 4 mg PO Q8H PRN 03/30/17 Sertraline HCl [Zoloft -] 75 mg PO DAILY 03/30/17 Vit A/Vitamin D3/E/Aloe V/Znox [Periguard Ointment] 0 gm TP ASDIR 03/30/17 Vitamin B Comp W-C [Nephro-Rebecca -] 1 tablet PO DAILY 03/30/17 Family Disease History - Family Disease History Family History: Unremarkable Review of Systems - Review of Systems Constitutional: reports: No Symptoms Eyes: reports: No Symptoms HENT: reports: No Symptoms Neck: reports: No Symptoms Cardiovascular: reports: No Symptoms Respiratory: reports: No Symptoms Gastrointestinal: reports: No Symptoms Genitourinary: reports: No Symptoms Integumentary: reports: No Symptoms Neurological: reports: No Symptoms Nephrology Consult - Height Height: 5 ft 11 in - Weight Weight: 95.708 kg - BMI Body Mass Index (BMI): 29.4 - Lab Results CBC,BMP: CBC, BMP 03/31/17 07:22 03/31/17 07:22 Anion Gap: Anion Gap Anion Gap 7 (8-16) L 03/31/17 07:22 - Imaging Chest X-ray: Report Reviewed - Physical Examination Vital Signs: Vital Signs Temperature 97.4 F L 03/31/17 06:00 Pulse Rate 88 03/31/17 06:00 Respiratory Rate 24 03/31/17 06:00 Blood Pressure 108/74 03/31/17 06:00 O2 Sat by Pulse Oximetry (%) 99 03/30/17 22:00 Constitutional: Yes: No Distress, Calm HENT: Yes: Atraumatic Neck: Yes: Supple Cardiovascular: Yes: Regular Rate and Rhythm. No: Murmur, Rub Respiratory: Yes: Regular, CTA Bilaterally Gastrointestinal: Yes: Normal Bowel Sounds Edema: No Wound/Incision: Yes: Well Approximated (avf site) Neurological: Yes: Alert, Oriented Assessment/Plan 67 year old gentleman with PMhx of ESRD on HD (TTS, non-complaint with treatment ), IDDM, Hypertension, Sacral decubitis ulcer who presented from [facility] with chest pain and found have K of 6.8. #ESRD on HD with Hyperkalemia secondary to non-compliance to dialysis s/p urgent HD yesterday, for additional short dialysis today as K > 5.5 for full session of dialysis tomorrow #Gram Positive Chain in Blood ? source pt s/p course of Abx last admission for multi-bacterial sacral wound infection to get Vanco today ID consult placed #Anemia in setting of CKD to get WILY with HD Check iron profile will transfuse 2 units with HD tomorrow Thank you Dominick Vanegas DO
[2017-03-31] MEDS: ISOSORBIDE DINITRATE 10 MG TABLET (FP) PO SCH ×2 (12:00→17:19)
[2017-03-31] MEDS: COLLAGENASE CLOSTRIDIUM HIST. 30 GRAMS TUBE TP SCH (15:48)
[2017-03-31] MEDS ORDERED: VANCOMYCIN 1,000 MG in DEXTROSE 5%-WATER - 250 ML IVPB ONE (17:00)
[2017-03-31] MEDS: MIRTAZAPINE 15 MG TABLET (FP) PO SCH (22:00)
--- NOTE | 2017-04-01 01:29 | EKG ---
Test Reason : Blood Pressure : / mmHG Vent. Rate : 086 BPM Atrial Rate : 086 BPM P-R Int : 138 ms QRS Dur : 112 ms QT Int : 430 ms P-R-T Axes : 077 060 142 degrees QTc Int : 514 ms SINUS RHYTHM WITH FREQUENT PREMATURE VENTRICULAR COMPLEXES IN A PATTERN OF BIGEMINY LEFT VENTRICULAR HYPERTROPHY WITH REPOLARIZATION ABNORMALITY PROLONGED QT ABNORMAL ECG WHEN COMPARED WITH ECG OF 30-MAR-2017 15:17, VENTRICULAR ECTOPIES ARE SEEN Confirmed by GRACE COLEMAN MD ([id number]) on 04/01/2017 1:28:48 AM Referred By: Confirmed By:GRACE COLEMAN MD
--- NOTE | 2017-04-01 01:33 | EKG ---
Test Reason : Blood Pressure : / mmHG Vent. Rate : 103 BPM Atrial Rate : 103 BPM P-R Int : 132 ms QRS Dur : 108 ms QT Int : 350 ms P-R-T Axes : 048 035 139 degrees QTc Int : 458 ms SINUS TACHYCARDIA ABNORMAL ECG WHEN COMPARED WITH ECG OF 08-MAR-2017 16:30, NO SIGNIFICANT CHANGE WAS FOUND Confirmed by GRACE COLEMAN MD ([id number]) on 04/01/2017 1:33:06 AM Referred By: Confirmed By:GRACE COLEMAN MD
[2017-04-01 06:06] LABS: HBSAG SCREEN Negative (Negative); HEP B CORE AB, TOT Negative (Negative)
[2017-04-01] MEDS: INSULIN SLIDING SCALE (NOVOLOG) 1 VIAL SQ SCH ×2 (06:35→16:52)
--- NOTE | 2017-04-01 08:13 | PN ---
Progress Note (short form) - Note Progress Note: patient seen and examined. Comfortable Blood sugar better positive blood cultures--Given vancomycin yesterday. denies cp/sob. wants to go back Vital Signs Temp 97.9 F 04/01/17 06:00 Pulse 94 H 04/01/17 06:00 Resp 18 04/01/17 06:00 BP 96/50 04/01/17 06:00 Pulse Ox 95 03/31/17 21:00 Intake & Output 03/31/17 03/31/17 04/01/17 11:59 23:59 11:59 Intake Total 848 074 3236 Balance 978 732 4445 Weight 211 lb Intake: IV 10 900 lhand 03/31 10 900 Oral 640 610 120 Other: Voiding Method Incontinent Incontinent Bowel Movement Yes No # Bowel Movements 1 Height 5 ft 11 in Body Mass Index (BMI) 29.4 Active Medications Acetaminophen (Tylenol -) 650 mg PO Q6H PRN PRN Reason: FEVER OR PAIN Aspirin (Asa -) 81 mg PO DAILY [facility] Last Admin: 03/31/17 10:16 Dose: 81 mg Calcium Acetate (Phoslo -) 1,334 mg PO TIDCM [facility] Last Admin: 03/31/17 17:19 Dose: 1,334 mg Collagenase (Santyl -) 1 applic TP DAILY [facility] Last Admin: 03/31/17 15:48 Dose: 1 applic Epoetin Neftaly (Procrit -) 20,000 unit IVPUSH ONCE ONE Stop: 04/01/17 06:01 Finasteride (Proscar -) 5 mg PO DAILY [facility] Last Admin: 03/31/17 10:16 Dose: 5 mg Furosemide (Lasix -) 80 mg PO DAILY [facility] Last Admin: 03/31/17 10:08 Dose: 80 mg Heparin Sodium (Porcine) (Heparin -) 5,000 unit SQ BID [facility] Last Admin: 03/31/17 22:01 Dose: 5,000 unit Vancomycin HCl 1,000 mg/ (Dextrose) 250 mls @ 250 mls/hr IVPB ONCE ONE PRN Reason: Protocol Stop: 04/01/17 06:59 Insulin Aspart (Novolog Vial Sliding Scale -) 1 vial SQ BIDAC [facility] PRN Reason: Protocol Last Admin: 04/01/17 06:35 Dose: Not Given Isosorbide Dinitrate (Isordil -) 10 mg PO TIDISORDIL [facility] Last Admin: 03/31/17 17:19 Dose: 10 mg Metoprolol Succinate (Toprol Xl -) 25 mg PO BID [facility] Last Admin: 03/31/17 22:00 Dose: 25 mg Mirtazapine (Remeron -) 15 mg PO HS [facility] Last Admin: 03/31/17 22:00 Dose: Not Given Ondansetron HCl (Zofran -) 4 mg PO Q8H PRN PRN Reason: NAUSEA AND/OR VOMITING Sertraline HCl 25 mg/ (Sertraline HCl 50 mg) 75 mg PO DAILY [facility] Last Admin: 03/31/17 10:08 Dose: 75 mg CBC, BMP 03/31/17 07:22 03/31/17 07:22 Microbiology 03/30/17 21:55 Blood Culture - Preliminary Blood - Peripheral Venous Pending Organism 03/30/17 21:55 Blood Culture - Preliminary Blood - Peripheral Venous Pending Organism bgm -- noted. Physical exam alert and awake Lungs--clear CVS--- S1 and S2 regular Abdomen--soft Extremities--- no edema Right upper extremity--- Dexter in place Neuro--- alert and awake Assessment and plan Atypical chest pain----NM ruled out Hypoglycemia---better Restart on Levemir--low-dose Monitor today vascular consult pending follow-up cultures echocardiogram ID consult pending Will follow. Problem List - Problems (1) Hypoglycemia Code(s): E16.2 - HYPOGLYCEMIA, UNSPECIFIED (2) Chest pain Code(s): R07.9 - CHEST PAIN, UNSPECIFIED Qualifiers: Chest pain type: unspecified Qualified Code(s): R07.9 - Chest pain, unspecified (3) Hyperkalemia Code(s): E87.5 - HYPERKALEMIA
[2017-04-01] MEDS: CALCIUM ACETATE 667 MG CAPSULE (FP) PO SCH ×3 (08:19→17:54)
[2017-04-01] MEDS: ISOSORBIDE DINITRATE 10 MG TABLET (FP) PO SCH ×3 (09:03→18:07)
[2017-04-01] MEDS: FUROSEMIDE 40 MG TABLET (FP) PO SCH (10:04)
[2017-04-01] MEDS: METOPROLOL SUCCINATE 25 MG TAB.SR.24H (FP) PO SCH ×2 (10:04→21:13)
[2017-04-01] MEDS ORDERED: GENTAMICIN INJECTION 120 MG in SODIUM CHLORIDE 100 ML IVPB ONE (10:13)
[2017-04-01] MEDS ORDERED: SERTRALINE HCL 25 MG TABLET (FP) ONE (10:14)
[2017-04-01] MEDS ORDERED: SERTRALINE HCL 50 MG TABLET (FP) ONE (10:14)
[2017-04-01] MEDS: HEPARIN NA (PORCINE) 5,000 UNITS/ML 1ML VIAL SQ SCH ×2 (10:16→21:13)
[2017-04-01] MEDS: ASPIRIN 81 MG CHEWABLE TABLETS PO SCH (10:18)
[2017-04-01] MEDS: FINASTERIDE 5 MG TABLET (FP) PO SCH (10:18)
[2017-04-01] MEDS: SERTRALINE HCL PO SCH (10:18)
--- NOTE | 2017-04-01 10:18 | PN ---
Progress Note (short form) - Note Progress Note: ID consult dictated imp/reccd 67 year old man with ESRD/HD wia pc, multiple decubitus ulcers admitted with chest pain from Snf now with gram postive bacteremia- likely strep, ?secondary to decubiti? r/o endocarditis repeat blood cultures vanco/gent with hd esr/crp echo further reccd to follow
[2017-04-01] MEDS: COLLAGENASE CLOSTRIDIUM HIST. 30 GRAMS TUBE TP SCH (10:19)
[2017-04-01] MEDS ORDERED: EPOETIN ALFA 20,000 UNIT/1 ML VIAL IVPUSH ONE (11:00)
[2017-04-01] MEDS ORDERED: VANCOMYCIN 1,000 MG in DEXTROSE 5%-WATER - 250 ML IVPB ONE (11:00)
[2017-04-01 11:09] LABS: HEMATOCRIT 22.3 % (35.4-49); MCH 27.2 pg (25.7-33.7); MCHC 30.8 g/dl (32.0-35.9); MEAN CELL VOLUME 88.5 fl (80-96); MEAN PLT VOLUME 7.1 fl (7.5-11.1); PLATELET COUNT 167 K/MM3 (134-434); RBC 2.52 M/mm3 (4.00-5.60); RDW 19.5 % (11.9-15.9); WHITE BLOOD COUNT 8.8 K/mm3 (4.0-10.0)
[2017-04-01 11:13] LABS: HEMOGLOBIN 6.9 GM/dL (11.7-16.9)
[2017-04-01 11:29] LABS: ANION GAP 6 (8-16); BLOOD UREA NITROGEN 33 mg/dL (7-18); CALCIUM 7.1 mg/dL (8.5-10.1); CHLORIDE 98 mmol/L (98-107); CO2 29 mmol/L (21-32); GLUCOSE,RANDOM 192 mg/dL (74-106); PHOSPHOROUS 3.7 mg/dL (2.5-4.9); POTASSIUM 5.4 mmol/L (3.5-5.1); SODIUM 133 mmol/L (136-145)
--- NOTE | 2017-04-01 12:02 | CONS ---
INFECTIOUS DISEASE CONSULTATION DATE OF CONSULTATION: 04/01/2017 REQUESTING PHYSICIAN: Joy Turk MD HISTORY OF PRESENT ILLNESS: This is a 67-year-old man who has a past medical history of end-stage renal disease. He is on dialysis. He has a history of coronary artery disease as well as diabetes and multiple decubitus ulcers. He was admitted on the for chest pain which has resolved. He has had no fevers. He was noted to be hyperkalemic in the emergency room with a potassium of 6.8 and a white count of 13. He had some blood cultures drawn, and he was dialyzed with improvement. Now, his admission blood culture, 3 of 4 bottles, is growing gram-positive cocci in chains, and we are asked to see him. He has no complaints. He wants to leave. He received a dose of vancomycin yesterday evening. He reports his chest pain has resolved. He has no cough. He is feeling well. He really does not want to talk. He lives at a senior care. I do not think he ambulates as he was not able to reposition himself in bed without assistance. PAST MEDICAL HISTORY: Notable for hypertension, coronary artery disease status post [place], congestive heart failure, COPD, diabetes, sacral decubitus ulcers, end-stage renal disease on dialysis, prior UTI. SURGICAL HISTORY: Notable for right Shiley catheter. He has a right upper arm fistula that was placed 1 month ago, and he is status post cholecystectomy. SOCIAL HISTORY: Prior to his renal failure, he lived at home. He apparently has been at [facility] for several months now. First admission was in October. ALLERGIES: He has no known drug allergies. MEDICATIONS AT THE [facility]: Include acetaminophen, Levemir insulin, Proscar, Santyl, Remeron, albuterol nebulizer, calcium acetate, Nephro-Rebecca, metoprolol, Zofran p.r.n., Lasix, sertraline, and he was on Flagyl. REVIEW OF SYSTEMS: He currently says he feels great. He denies any chest pain, abdominal pain, nausea, vomiting, diarrhea, or dysuria, and he wants to return to the senior care. PHYSICAL EXAMINATION: General: He is awake and alert. Vital Signs: Temperature is 97.9, pulse of 94, blood pressure 96/50, respiratory rate is 18. He is saturating 95%. HEENT: He is normocephalic. His eyes are anicteric. He has no conjunctival hemorrhages. Lungs: Clear to auscultation. Heart: He has no murmur. Heart is regular rate and rhythm. Abdomen: Soft, nontender. Extremities: Without edema. He has no heel breakdown. He has 3 ulcers, one on each buttock and one on his sacrum. All of which appear to be stage 3. He has some mild surrounding erythema. PermCath Site: Without erythema and nontender. Fistula Site: The abdias are intact. DIAGNOSTIC DATA: White count on admission was 13.4. Repeat was 7.8. Hemoglobin 7.3. Platelets are 149. BUN is 31 and creatinine 3.5, with an alkaline phosphatase of 150. Hepatitis serology is negative. Blood culture: Three of 4 bottles are growing gram-positive cocci in chains. His chest x-ray shows some right basilar atelectasis. In summary, this is a 67-year-old man with: 1. Gram-positive bacteremia, most likely Streptococcus. Question secondary to decubitus. Rule out endocarditis in this setting. Follow up blood cultures and repeat the present ones. Treat him with vancomycin and gentamicin with dialysis based on levels. Check a sedimentation rate and a CRP and echo. 2. End-stage renal disease on dialysis. If he remains bacteremic, we will have to consider removal of PermCath. 3. Coronary artery disease. Management per Cardiology. Further recommendations to follow. Continue local care to his decubitus ulcers. Remy [id number]
--- NOTE | 2017-04-01 12:21 | PN ---
Progress Note (short form) - Note Progress Note: Chief Complaint: cp History of Present Illness: no cp, palps, dizziness, sob. States he feels better. Wants to go home. Current Medications Acetaminophen (Tylenol -) 650 mg PO Q6H PRN PRN Reason: FEVER OR PAIN Aspirin (Asa -) 81 mg PO DAILY [facility] Last Admin: 04/01/17 10:18 Dose: 81 mg Calcium Acetate (Phoslo -) 1,334 mg PO TIDCM [facility] Last Admin: 04/01/17 08:19 Dose: 1,334 mg Collagenase (Santyl -) 1 applic TP DAILY [facility] Last Admin: 04/01/17 10:19 Dose: 1 applic Finasteride (Proscar -) 5 mg PO DAILY [facility] Last Admin: 04/01/17 10:18 Dose: 5 mg Furosemide (Lasix -) 80 mg PO DAILY [facility] Last Admin: 03/31/17 10:08 Dose: 80 mg Heparin Sodium (Porcine) (Heparin -) 5,000 unit SQ BID [facility] Last Admin: 04/01/17 10:16 Dose: 5,000 unit Vancomycin HCl 1,000 mg/ (Dextrose) 250 mls @ 166.667 mls/hr IVPB ONCE ONE PRN Reason: Protocol Stop: 04/01/17 12:29 Insulin Aspart (Novolog Vial Sliding Scale -) 1 vial SQ BIDAC [facility] PRN Reason: Protocol Last Admin: 04/01/17 06:35 Dose: Not Given Insulin Detemir (Levemir Vial) 5 units SQ HS [facility] Isosorbide Dinitrate (Isordil -) 10 mg PO TIDISORDIL [facility] Last Admin: 03/31/17 17:19 Dose: 10 mg Metoprolol Succinate (Toprol Xl -) 25 mg PO BID [facility] Last Admin: 03/31/17 22:00 Dose: 25 mg Mirtazapine (Remeron -) 15 mg PO HS [facility] Last Admin: 03/31/17 22:00 Dose: Not Given Ondansetron HCl (Zofran -) 4 mg PO Q8H PRN PRN Reason: NAUSEA AND/OR VOMITING Sertraline HCl 25 mg/ (Sertraline HCl 50 mg) 75 mg PO DAILY [facility] Last Admin: 04/01/17 10:18 Dose: 75 mg Vital Signs - 24 hr 03/31/17 03/31/17 03/31/17 12:20 12:50 13:20 Temperature Pulse Rate 81 101 H 89 Respiratory 18 18 18 Rate Blood Pressure 100/62 99/59 87/44 O2 Sat by Pulse Oximetry (%) 03/31/17 03/31/17 03/31/17 13:50 14:15 14:20 Temperature 98 F Pulse Rate 100 H 93 H 91 H Respiratory 18 16 18 Rate Blood Pressure 90/65 92/56 98/61 O2 Sat by Pulse Oximetry (%) 03/31/17 03/31/17 03/31/17 14:30 17:22 19:02 Temperature Pulse Rate 97 H Respiratory 18 18 Rate Blood Pressure 90/40 100/58 116/51 O2 Sat by Pulse Oximetry (%) 03/31/17 03/31/17 04/01/17 21:00 22:00 01:29 Temperature 98.5 F Pulse Rate 98 H 98 H Respiratory 18 18 18 Rate Blood Pressure 136/83 108/61 O2 Sat by Pulse 95 Oximetry (%) 04/01/17 06:00 Temperature 97.9 F Pulse Rate 94 H Respiratory 18 Rate Blood Pressure 96/50 O2 Sat by Pulse Oximetry (%) Intake & Output 03/30/17 03/31/17 04/01/17 04/02/17 07:59 07:59 07:59 07:59 Intake Total 120 2160 250 Balance 120 2160 250 Weight 211 lb 211 lb Constitutional: Yes: cachectic, No Distress Eyes: No: Sclera Icterus HENT: No: Nasal Congestion Neck: No: Decreased ROM Respiratory: Yes: CTA Bilaterally (decr sounds diffusely). No: Accessory Muscle Use, Rales, Wheezes Gastrointestinal: Yes: Normal Bowel Sounds. No: Distention, Hepatomegaly, Palpable Mass, Tenderness Cardiovascular: Yes: Regular Rate and Rhythm JVD: No Carotid Bruit: No PMI: Non-Displaced Heart Sounds: Yes: S1, S2. No: Gallop Murmur: No: Systolic Murmur, Diastolic Murmur Musculoskeletal: Yes: Other (No kyphosis) Extremities: No: Cold, Cyanosis Edema: No Peripheral Pulses: 2+ Left Carotid, 2+ Right Carotid, 2+ Left Doralis Pedis, 2+ Right Dorsalis Pedis Integumentary: No: Jaundice Neurological: Yes: Alert, Oriented (x3) Psychiatric: No: Agitated - Other Data Labs, Other Data: CBC, BMP 04/01/17 10:30 04/01/17 10:30 Microbiology 03/30/17 21:55 Blood - Peripheral Venous Blood Culture - Preliminary Group D Strep Or Entero Coccus 03/30/17 21:55 Blood - Peripheral Venous Blood Culture - Preliminary Group D Strep Or Entero Coccus Laboratory Tests 01/19/17 03/30/17 03/31/17 06:40 15:50 07:22 Hgb 8.1 L D 7.3 L Sodium Potassium Creatinine Magnesium 2.1 Total Bilirubin AST ALT Alkaline Phosphatase Albumin Total LDL Cholesterol 03/31/17 07:22 Hgb Sodium 137 Potassium 5.6 H D Creatinine 3.5 H D Magnesium 2.0 Total Bilirubin 0.6 AST 21 ALT 9 L Alkaline Phosphatase 150 H Albumin 1.7 L Total LDL Cholesterol 44 D tele: NSR/sinus tach. freq pvc's. Assessment/Plan MPI 01/28 (dipyridamole): no ST changes; inferior fixed defect (reverse distribution) thought to be 2/2 diaphragmatic attenuation. No ischemia/ infarct. Dilated left ventricle with severely reduced systolic function, global. EF 18%. Echo 01/2017: 1+ concentric lvh. 1+ lve. LV fn severely reduced, global. nl rv size, mildly depressed fn. mod-sev eccentric MR. rvsp 40-50. Echo 09/2016: Sev LV dilation. Sev reduced LV function. (global). RV not well visualized. Mobile density c/w torn chordae (veg can't be excluded). Ao not well visualized. RVSP not assessed. (During hospital admit for sepsis) - NL LV function 01/2016. ECG 03/30, 03/31: NSR, ST-Ts anterolateral leads not signif changed vs prior . PVCs (ventric bigeminy on 03/31 strip) 67 y.o. male with a PMH of HTN, HL, systolic cardiomyopathy CHF, ESRD (on HD), chronic anemia, sacral debubitus ulcers, copd, and IDDM here with cp. CP: -non-anginal sx description -trop neg x 3, ecg non-ischemic -highly suspicious this is m-skel etiology (which he's had in past apparently). no further w/u indicated chronic systolic chf: - noted to have depressed EF during previous admit. cath deferred at that time due to pt admitted non-adherence pattern to meds (e.g. DAPT regimen), known significant anemia with h/o transfusions, and poor candidacy for CABG consideration given frailty, poor mobility with decubitus ulcers, etc. 01/28 stress test without ischemia, pt managed medically. - has been on metopr 50mg daily dose since at least 09/28, very unlikely low dose nitrates +/- hydral will improve EF significantly. EF remained severely depressed as of 01/28. rpt echo here pending--if EF remains <35%, needs discussion of primary prevn ICD - cont metoprolol 25 mg bid (NH dose). no ELIOT sec to hyperkalemia. sbp 90s- 100s here. isordil started here. bp stable, consider hydralazine later if bp tolerating. Patient now with bacteremia, monitor for worsening hypotension. -currently no statin listed on [place] meds per ER note, total chol 88--would not start statin with cholesterol this low (and LDL 40s). Will hold aspirin for now in light of recurrent anemia requiring transfusions. HTN: - now with hypotension. monitor on HF regimen. ESRD: -volume mgm't per hd and lasix, per renal anemia: -? sec to ckd. Trending down here. Plan for transfusion today with HD. -per pmd, renal bacteremia - on antibiotics. ID following.
[2017-04-01] MEDS ORDERED: VANCOMYCIN 500 MG in DEXTROSE 5%-WATER - 100 ML IVPB ONE (12:30)
--- NOTE | 2017-04-01 12:38 | PN ---
Progress Note (short form) - Note Progress Note: Renal follow up for ESRD on HD Pt seen and examined during dialysis BP low, UF goal is 2L no sob, chest pain pt want to be discharged Vital Signs Temperature 97.9 F 04/01/17 06:00 Pulse Rate 94 H 04/01/17 06:00 Respiratory Rate 18 04/01/17 06:00 Blood Pressure 96/50 04/01/17 06:00 O2 Sat by Pulse Oximetry (%) 95 03/31/17 21:00 Intake & Output 03/29/17 03/30/17 03/31/17 04/01/17 23:59 23:59 23:59 23:59 Intake Total 1260 1270 Balance 1260 1270 Weight 95.708 kg 95.708 kg NAD awake and alert RRR NO LE edema CBC, BMP 04/01/17 10:30 04/01/17 10:30 Current Medications Acetaminophen (Tylenol -) 650 mg PO Q6H PRN PRN Reason: FEVER OR PAIN Aspirin (Asa -) 81 mg PO DAILY [facility] Last Admin: 04/01/17 10:18 Dose: 81 mg Calcium Acetate (Phoslo -) 1,334 mg PO TIDCM [facility] Last Admin: 04/01/17 08:19 Dose: 1,334 mg Collagenase (Santyl -) 1 applic TP DAILY [facility] Last Admin: 04/01/17 10:19 Dose: 1 applic Finasteride (Proscar -) 5 mg PO DAILY [facility] Last Admin: 04/01/17 10:18 Dose: 5 mg Furosemide (Lasix -) 80 mg PO DAILY [facility] Last Admin: 03/31/17 10:08 Dose: 80 mg Heparin Sodium (Porcine) (Heparin -) 5,000 unit SQ BID [facility] Last Admin: 04/01/17 10:16 Dose: 5,000 unit Vancomycin HCl 500 mg/ (Dextrose) 100 mls @ 100 mls/hr IVPB ONCE ONE PRN Reason: Protocol Stop: 04/01/17 13:29 Insulin Aspart (Novolog Vial Sliding Scale -) 1 vial SQ BIDAC [facility] PRN Reason: Protocol Last Admin: 04/01/17 06:35 Dose: Not Given Insulin Detemir (Levemir Vial) 5 units SQ [facility] Isosorbide Dinitrate (Isordil -) 10 mg PO TIDISORDIL [facility] Last Admin: 03/31/17 17:19 Dose: 10 mg Metoprolol Succinate (Toprol Xl -) 25 mg PO BID [facility] Last Admin: 03/31/17 22:00 Dose: 25 mg Mirtazapine (Remeron -) 15 mg PO HS [facility] Last Admin: 03/31/17 22:00 Dose: Not Given Ondansetron HCl (Zofran -) 4 mg PO Q8H PRN PRN Reason: NAUSEA AND/OR VOMITING Sertraline HCl 25 mg/ (Sertraline HCl 50 mg) 75 mg PO DAILY [facility] Last Admin: 04/01/17 10:18 Dose: 75 mg 67 year old gentleman with PMhx of ESRD on HD (TTS, non-complaint with treatment ), IDDM, Hypertension, Sacral decubitis ulcer who presented from [facility] with chest pain and found have K of 6.8. #ESRD on HD with Hyperkalemia tolerating dialysis today #Gram Positive Chain in Blood ? source ID following repeat cultures today to get Vanco with HD if cultures are persistently positive will need to have dialysis catheter removed #Anemia in setting of CKD getting prbc with HD today continue epogen with HD Thank you Dominick Vanegas DO
[2017-04-01] MEDS: INSULIN DETEMIR 100 UNITS/ML MDV SQ SCH (21:13)
[2017-04-01] MEDS: MIRTAZAPINE 15 MG TABLET (FP) PO SCH (21:18)
[2017-04-02] MEDS: INSULIN SLIDING SCALE (NOVOLOG) 1 VIAL SQ SCH ×2 (06:19→17:16)
--- NOTE | 2017-04-02 09:22 | PN ---
Progress Note (short form) - Note Progress Note: patient seen and examined today Comfortable wants to go back to residential Denies chest pain or shortness breath. All follow-ups noted. Vital Signs Temp 97.7 F 04/02/17 06:00 Pulse 117 H 04/02/17 06:00 Resp 18 04/02/17 06:00 BP 117/72 04/02/17 06:00 Pulse Ox 96 04/01/17 21:00 Intake & Output 04/01/17 04/01/17 04/02/17 11:59 23:59 11:59 Intake Total 1270 740 110 Balance 1270 740 110 Intake: IV 900 10 lhand 03/31 900 10 Oral 370 740 100 Other: Voiding Method Urinal Urinal Bowel Movement No No Yes # Bowel Movements 2 Active Medications Acetaminophen (Tylenol -) 650 mg PO Q6H PRN PRN Reason: FEVER OR PAIN Calcium Acetate (Phoslo -) 1,334 mg PO TIDCM [facility] Last Admin: 04/01/17 17:54 Dose: 1,334 mg Collagenase (Santyl -) 1 applic TP DAILY [facility] Last Admin: 04/01/17 10:19 Dose: 1 applic Finasteride (Proscar -) 5 mg PO DAILY [facility] Last Admin: 04/01/17 10:18 Dose: 5 mg Furosemide (Lasix -) 80 mg PO DAILY [facility] Last Admin: 04/01/17 10:04 Dose: Not Given Heparin Sodium (Porcine) (Heparin -) 5,000 unit SQ BID [facility] Last Admin: 04/01/17 21:13 Dose: 5,000 unit Insulin Aspart (Novolog Vial Sliding Scale -) 1 vial SQ BIDAC [facility] PRN Reason: Protocol Last Admin: 04/02/17 06:19 Dose: Not Given Insulin Detemir (Levemir Vial) 5 units SQ HS [facility] Last Admin: 04/01/17 21:13 Dose: 5 units Isosorbide Dinitrate (Isordil -) 10 mg PO TIDISORDIL [facility] Last Admin: 04/01/17 18:07 Dose: 10 mg Metoprolol Succinate (Toprol Xl -) 25 mg PO BID [facility] Last Admin: 04/01/17 21:13 Dose: 25 mg Mirtazapine (Remeron -) 15 mg PO HS [facility] Last Admin: 04/01/17 21:18 Dose: Not Given Ondansetron HCl (Zofran -) 4 mg PO Q8H PRN PRN Reason: NAUSEA AND/OR VOMITING Sertraline HCl 25 mg/ (Sertraline HCl 50 mg) 75 mg PO DAILY [facility] Last Admin: 04/01/17 10:18 Dose: 75 mg CBC, BMP 04/01/17 10:30 04/01/17 10:30 echocardiogram--- severely reduced LV function Microbiology 03/30/17 21:55 Blood Culture - Preliminary Blood - Peripheral Venous Vr Ec Faecium 03/30/17 21:55 Blood Culture - Preliminary Blood - Peripheral Venous Vr Ec Faecium Physical exam alert and awake--Comfortable Lungs--clear CVS--- S1 and S2 regular Abdomen--soft Extremities--- no edema Right upper extremity--- [place] in place Neuro--- alert and awake Assessment and plan Atypical chest pain----IA ruled out Hypoglycemia---better Restarted on Levemir--low-dose vascular consult pending--for removal of abdias growing VRE ID to follow echocardiogram--- noted check stool for occult blood Got transfused with dialysis yesterday Follow-up CBC today May need to remove port Will follow. discussed with nursing staff Problem List - Problems (1) Hypoglycemia Code(s): E16.2 - HYPOGLYCEMIA, UNSPECIFIED (2) Chest pain Code(s): R07.9 - CHEST PAIN, UNSPECIFIED Qualifiers: Chest pain type: unspecified Qualified Code(s): R07.9 - Chest pain, unspecified (3) Hyperkalemia Code(s): E87.5 - HYPERKALEMIA (4) Sepsis Code(s): A41.9 - SEPSIS, UNSPECIFIED ORGANISM (5) Anemia Code(s): D64.9 - ANEMIA, UNSPECIFIED Qualifiers: Anemia type: unspecified type Qualified Code(s): D64.9 - Anemia, unspecified
[2017-04-02] MEDS ORDERED: SERTRALINE HCL 50 MG TABLET (FP) ONE (09:23)
[2017-04-02] MEDS ORDERED: SERTRALINE HCL 25 MG TABLET (FP) ONE (09:23)
[2017-04-02] MEDS: FUROSEMIDE 40 MG TABLET (FP) PO SCH (09:30)
[2017-04-02] MEDS: FINASTERIDE 5 MG TABLET (FP) PO SCH (09:31)
[2017-04-02] MEDS: METOPROLOL SUCCINATE 25 MG TAB.SR.24H (FP) PO SCH ×2 (09:31→23:01)
[2017-04-02] MEDS: SERTRALINE HCL PO SCH (09:31)
[2017-04-02] MEDS: ISOSORBIDE DINITRATE 10 MG TABLET (FP) PO SCH ×3 (09:31→17:15)
[2017-04-02] MEDS: CALCIUM ACETATE 667 MG CAPSULE (FP) PO SCH ×3 (09:31→17:15)
[2017-04-02] MEDS: HEPARIN NA (PORCINE) 5,000 UNITS/ML 1ML VIAL SQ SCH ×2 (09:32→23:02)
[2017-04-02 10:14] LABS: BASO % 0.7 % (0-2.0); EOS % 0.5 % (0-4.5); HEMOGLOBIN 9.1 GM/dL (11.7-16.9); LYMPH % 23.3 % (8-40); MCH 27.7 pg (25.7-33.7); MCHC 31.6 g/dl (32.0-35.9); MEAN CELL VOLUME 87.7 fl (80-96); MEAN PLT VOLUME 7.5 fl (7.5-11.1); MONO % 10.1 % (3.8-10.2); NEUT % 65.4 % (42.8-82.8); PLATELET COUNT 216 K/MM3 (134-434); RDW 18.3 % (11.9-15.9); WHITE BLOOD COUNT 11.6 K/mm3 (4.0-10.0)
[2017-04-02] MEDS: COLLAGENASE CLOSTRIDIUM HIST. 30 GRAMS TUBE TP SCH (11:10)
--- NOTE | 2017-04-02 12:11 | PN ---
Progress Note (short form) - Note Progress Note: Chief Complaint: cp History of Present Illness: no cp, palps, dizziness, sob. States he feels better. Wants to go home. Current Medications Generic Name Dose Route Start Last Admin Trade Name Freq PRN Reason Stop Dose Admin Acetaminophen 650 mg 03/30/17 17:42 Tylenol - PO Q6H PRN FEVER OR PAIN Calcium Acetate 1,334 mg 03/31/17 08:00 04/02/17 09:31 Phoslo - PO 1,334 mg TIDCM [facility] Administration Collagenase 1 applic 03/31/17 10:00 04/02/17 11:10 Santyl - TP 1 applic DAILY [facility] Administration Finasteride 5 mg 03/31/17 10:00 04/02/17 09:31 Proscar - PO 5 mg DAILY [facility] Administration Furosemide 80 mg 03/31/17 10:00 04/02/17 09:30 Lasix - PO 80 mg DAILY [facility] Administration Heparin Sodium (Porcine) 5,000 unit 03/30/17 22:00 04/02/17 09:32 Heparin - SQ 5,000 unit BID [facility] Administration Insulin Aspart 1 vial 04/01/17 07:00 04/02/17 06:19 Novolog Vial Sliding Scale - SQ Not Given BIDAC [facility] Protocol Insulin Detemir 5 units 04/01/17 22:00 04/01/17 21:13 Levemir Vial SQ 5 units HS [facility] Administration Isosorbide Dinitrate 10 mg 03/31/17 13:00 04/02/17 09:31 Isordil - PO 10 mg TIDISORDIL [facility] Administration Metoprolol Succinate 25 mg 03/30/17 22:00 04/02/17 09:31 Toprol Xl - PO 25 mg BID [facility] Administration Mirtazapine 15 mg 03/30/17 22:00 04/01/17 21:18 Remeron - PO Not Given HS [facility] Ondansetron HCl 4 mg 03/30/17 17:42 Zofran - PO Q8H PRN NAUSEA AND/OR VOMITING Sertraline HCl 25 mg/ 75 mg 03/31/17 10:00 04/02/17 09:31 Sertraline HCl 50 mg PO 75 mg DAILY [facility] Administration Vital Signs Period Temp Pulse Resp BP Sys/Vogt Pulse Ox Last 24 Hr 97.6 F-98.1 F 87-117 16-18 85-117/42-72 96 Constitutional: Yes: cachectic, No Distress Eyes: No: Sclera Icterus HENT: No: Nasal Congestion Respiratory: Yes: CTA Bilaterally (decr sounds diffusely). No: Accessory Muscle Use, Rales, Wheezes Gastrointestinal: Yes: Normal Bowel Sounds. No: Distention, Hepatomegaly, Palpable Mass, Tenderness Cardiovascular: Yes: Regular Rate and Rhythm JVD: No Heart Sounds: Yes: S1, S2. No: Gallop Murmur: No: Systolic Murmur, Diastolic Murmur Extremities: No: Cold, Cyanosis Edema: No Integumentary: No: Jaundice Neurological: Yes: Alert, Oriented (x3) Psychiatric: No: Agitated - Other Data Labs, Other Data: CBC, BMP 04/02/17 09:25 04/01/17 10:30 MPI 01/28 (dipyridamole): no ST changes; inferior fixed defect (reverse distribution) thought to be 2/2 diaphragmatic attenuation. No ischemia/ infarct. Dilated left ventricle with severely reduced systolic function, global. EF 18%. echo 03/2017: mod lve, sev dec lvef, 20%, global hk Echo 01/2017: 1+ concentric lvh. 1+ lve. LV fn severely reduced, global. nl rv size, mildly depressed fn. mod-sev eccentric MR. rvsp 40-50. Echo 09/2016: Sev LV dilation. Sev reduced LV function. (global). RV not well visualized. Mobile density c/w torn chordae (veg can't be excluded). Ao not well visualized. RVSP not assessed. (During hospital admit for sepsis) - NL LV function 01/2016. ECG 03/30, 03/31: NSR, ST-Ts anterolateral leads not signif changed vs prior . PVCs (ventric bigeminy on 03/31 strip) a/p: 67 y.o. male with a PMH of HTN, HL, systolic cardiomyopathy CHF, ESRD (on HD), chronic anemia, sacral debubitus ulcers, copd, and IDDM here with cp. CP: -non-anginal sx description -trop neg x 3, ecg non-ischemic -highly suspicious this is m-skel etiology (which he's had in past apparently). no further w/u indicated at this time chronic systolic chf: - noted to have depressed EF during previous admit. cath deferred at that time due to pt admitted non-adherence pattern to meds (e.g. DAPT regimen), known significant anemia with h/o transfusions, and poor candidacy for CABG consideration given frailty, poor mobility with decubitus ulcers, etc. 01/28 stress test without ischemia, pt managed medically. - has been on metopr 50mg daily dose since at least 09/28, very unlikely low dose nitrates +/- hydral will improve EF significantly. EF remained severely depressed as of 01/28 and on echo here now. Outpt discussions for ICD given low lvef. - cont metoprolol 25 mg bid ([place] dose). no ELIOT sec to hyperkalemia. sbp 90s- 100s here. isordil started here. bp stable, consider hydralazine later if bp tolerating. Patient now with bacteremia, monitor for worsening hypotension. -currently no statin listed on [place] meds per ER note, total chol 88--would not start statin with cholesterol this low (and LDL 40s). Will hold aspirin for now in light of recurrent anemia requiring transfusions. HTN: - monitor on HF regimen. ESRD: -volume mgm't per hd and lasix, per renal anemia: -? sec to ckd. Trending down here. Plan for transfusion today with HD. -per pmd, renal bacteremia - on antibiotics. ID following.
--- NOTE | 2017-04-02 12:37 | PN ---
Progress Note (short form) - Note Progress Note: wants to leave no complaints Vital Signs Period Temp Pulse Resp BP Sys/Vogt Pulse Ox Last 24 Hr 97.6 F-98.1 F 87-117 16-18 90-117/42-72 96-96 cor-rrr lungs clear abd soft,nt ext dry skin sacral ulcers unchanged CBC, BMP 04/02/17 09:25 04/01/17 10:30 Laboratory Tests 04/02/17 04/02/17 05:35 05:35 ESR 63 H C-Reactive Protein 6.6 H D Microbiology 03/30/17 21:55 Blood - Peripheral Venous Blood Culture - Preliminary Vr Ec Faecium 03/30/17 21:55 Blood - Peripheral Venous Blood Culture - Preliminary Vr Ec Faecium a/p enterococcal bacteremia- VREF! cannot use zyvox due to drug interactions with zoloft will start daptomycin Q48h , continue gent with HD repeat blood cultures pending echo ct scan abd/pelvis further reccd to follow esrd/hd
[2017-04-02] MEDS ORDERED: DAPTOMYCIN IVPB SCH ×2 (13:30→14:18)
[2017-04-02] MEDS ORDERED: SODIUM CHLORIDE IVPB SCH ×2 (13:30→14:18)
--- NOTE | 2017-04-02 14:08 | PN ---
Progress Note (short form) - Note Progress Note: Renal follow up for ESRD on HD Pt seen and examined at the bedside awake and alert no acute complaints no fever or chills blood cultures grew VRE Vital Signs Temperature 98.1 F 04/02/17 10:00 Pulse Rate 102 H 04/02/17 10:00 Respiratory Rate 18 04/02/17 10:00 Blood Pressure 106/66 04/02/17 10:00 O2 Sat by Pulse Oximetry (%) 96 04/02/17 10:00 Intake & Output 03/30/17 03/31/17 04/01/17 04/02/17 23:59 23:59 23:59 23:59 Intake Total 1260 2009 610 Balance 1260 2009 610 Weight 95.708 kg 95.708 kg NAD awake and alert RRR NO LE edema CBC, BMP 04/02/17 09:25 04/01/17 10:30 Current Medications Acetaminophen (Tylenol -) 650 mg PO Q6H PRN PRN Reason: FEVER OR PAIN Calcium Acetate (Phoslo -) 1,334 mg PO TIDCM [facility] Last Admin: 04/02/17 13:18 Dose: 1,334 mg Collagenase (Santyl -) 1 applic TP DAILY [facility] Last Admin: 04/02/17 11:10 Dose: 1 applic Finasteride (Proscar -) 5 mg PO DAILY [facility] Last Admin: 04/02/17 09:31 Dose: 5 mg Furosemide (Lasix -) 80 mg PO DAILY [facility] Last Admin: 04/02/17 09:30 Dose: 80 mg Heparin Sodium (Porcine) (Heparin -) 5,000 unit SQ BID [facility] Last Admin: 04/02/17 09:32 Dose: 5,000 unit Daptomycin 575 mg/ Sodium (Chloride) 50 mls @ 50 mls/hr IVPB Q48H [facility] PRN Reason: Protocol Insulin Aspart (Novolog Vial Sliding Scale -) 1 vial SQ BIDAC [facility] PRN Reason: Protocol Last Admin: 04/02/17 06:19 Dose: Not Given Insulin Detemir (Levemir Vial) 5 units SQ HS [facility] Last Admin: 04/01/17 21:13 Dose: 5 units Isosorbide Dinitrate (Isordil -) 10 mg PO TIDISORDIL [facility] Last Admin: 04/02/17 13:19 Dose: 10 mg Metoprolol Succinate (Toprol Xl -) 25 mg PO BID [facility] Last Admin: 04/02/17 09:31 Dose: 25 mg Mirtazapine (Remeron -) 15 mg PO HS [facility] Last Admin: 04/01/17 21:18 Dose: Not Given Ondansetron HCl (Zofran -) 4 mg PO Q8H PRN PRN Reason: NAUSEA AND/OR VOMITING Sertraline HCl 25 mg/ (Sertraline HCl 50 mg) 75 mg PO DAILY [facility] Last Admin: 04/02/17 09:31 Dose: 75 mg 67 year old gentleman with PMhx of ESRD on HD (TTS, non-complaint with treatment ), IDDM, Hypertension, Sacral decubitis ulcer who presented from [facility] with chest pain and found have K of 6.8. #ESRD on HD with Hyperkalemia s/p dialysis yesterday, tolerated it well no acute indication for ANALYTICAL STRATEGIST today for contrast exposure later today, if any signs of volume overload will plan for HD with UF #VRE Bacteremia ID following for CT of the Abd and Pelvis with IV contrast to get IV Dapto repeat blood culture are positive if repeat cultures become positive will likely need HD catheter removed #Anemia in setting of CKD s/p PRBC transfusion with improvement in Hgb will continue high dose WILY with HD no IV iron given bacteremia Thank you Dominick Vanegas DO
[2017-04-02] MEDS ORDERED: SODIUM CHLORIDE IVPB ONE (14:33)
[2017-04-02] MEDS ORDERED: DAPTOMYCIN IVPB ONE (14:33)
[2017-04-02] MEDS: INSULIN DETEMIR 100 UNITS/ML MDV SQ SCH (23:01)
[2017-04-02] MEDS: MIRTAZAPINE 15 MG TABLET (FP) PO SCH ×2 (23:01→23:03)
[2017-04-03] MEDS: INSULIN SLIDING SCALE (NOVOLOG) 1 VIAL SQ SCH ×2 (06:36→17:27)
[2017-04-03] MEDS: ISOSORBIDE DINITRATE 10 MG TABLET (FP) PO SCH ×3 (08:37→17:25)
[2017-04-03] MEDS: CALCIUM ACETATE 667 MG CAPSULE (FP) PO SCH ×3 (08:37→17:25)
[2017-04-03] MEDS ORDERED: GENTAMICIN 80 MG PREMIXED IVPB 80 MG/100 ML BAG IVPB ONE (09:00)
[2017-04-03] MEDS ORDERED: DAPTOMYCIN IVPB ONE (09:00)
[2017-04-03] MEDS ORDERED: EPOETIN ALFA 20,000 UNIT/1 ML VIAL IVPUSH ONE (09:00)
[2017-04-03] MEDS ORDERED: SODIUM CHLORIDE IVPB ONE (09:00)
[2017-04-03 09:26] LABS: HEMATOCRIT 27.1 % (35.4-49); HEMOGLOBIN 8.6 GM/dL (11.7-16.9); MCH 28.1 pg (25.7-33.7); MCHC 31.8 g/dl (32.0-35.9); MEAN CELL VOLUME 88.4 fl (80-96); MEAN PLT VOLUME 7.8 fl (7.5-11.1); PLATELET COUNT 183 K/MM3 (134-434); RBC 3.06 M/mm3 (4.00-5.60); RDW 18.4 % (11.9-15.9)
[2017-04-03 09:51] LABS: ANION GAP 9 (8-16); BLOOD UREA NITROGEN 39 mg/dL (7-18); CALCIUM 7.4 mg/dL (8.5-10.1); CHLORIDE 98 mmol/L (98-107); CO2 27 mmol/L (21-32); CREATININE 3.1 mg/dL (0.7-1.3); GLUCOSE,RANDOM 141 mg/dL (74-106); PHOSPHOROUS 3.9 mg/dL (2.5-4.9); SODIUM 134 mmol/L (136-145)
--- NOTE | 2017-04-03 10:21 | PN ---
Progress Note (short form) - Note Progress Note: Chief Complaint: cp History of Present Illness: no cp, palps, dizziness, sob. States he feels better. Wants to go home. Current Medications Generic Name Dose Route Start Last Admin Trade Name Freq PRN Reason Stop Dose Admin Acetaminophen 650 mg 03/30/17 17:42 Tylenol - PO Q6H PRN FEVER OR PAIN Calcium Acetate 1,334 mg 03/31/17 08:00 04/03/17 08:37 Phoslo - PO 1,334 mg TIDCM [facility] Administration Collagenase 1 applic 03/31/17 10:00 04/02/17 11:10 Santyl - TP 1 applic DAILY [facility] Administration Finasteride 5 mg 03/31/17 10:00 04/02/17 09:31 Proscar - PO 5 mg DAILY [facility] Administration Furosemide 80 mg 03/31/17 10:00 04/02/17 09:30 Lasix - PO 80 mg DAILY [facility] Administration Heparin Sodium (Porcine) 5,000 unit 03/30/17 22:00 04/02/17 23:02 Heparin - SQ 5,000 unit BID [facility] Administration Insulin Aspart 1 vial 04/01/17 07:00 04/03/17 06:36 Novolog Vial Sliding Scale - SQ Not Given BIDAC [facility] Protocol Insulin Detemir 5 units 04/01/17 22:00 04/02/17 23:01 Levemir Vial SQ 5 units HS [facility] Administration Isosorbide Dinitrate 10 mg 03/31/17 13:00 04/03/17 08:37 Isordil - PO 10 mg TIDISORDIL [facility] Administration Metoprolol Succinate 25 mg 03/30/17 22:00 04/02/17 23:01 Toprol Xl - PO 25 mg BID [facility] Administration Mirtazapine 15 mg 03/30/17 22:00 04/02/17 23:03 Remeron - PO Not Given HS [facility] Ondansetron HCl 4 mg 03/30/17 17:42 Zofran - PO Q8H PRN NAUSEA AND/OR VOMITING Sertraline HCl 25 mg/ 75 mg 03/31/17 10:00 04/02/17 09:31 Sertraline HCl 50 mg PO 75 mg DAILY [facility] Administration Vital Signs Period Temp Pulse Resp BP Sys/Vogt Pulse Ox Last 24 Hr 97.0 F-98.7 F 80-104 16-20 92-114/54-73 98-98 Constitutional: Yes: cachectic, No Distress Eyes: No: Sclera Icterus HENT: No: Nasal Congestion Respiratory: Yes: CTA Bilaterally (decr sounds diffusely). No: Accessory Muscle Use, Rales, Wheezes Gastrointestinal: Yes: Normal Bowel Sounds. No: Distention, Hepatomegaly, Palpable Mass, Tenderness Cardiovascular: Yes: Regular Rate and Rhythm JVD: No Heart Sounds: Yes: S1, S2. No: Gallop Murmur: No: Systolic Murmur, Diastolic Murmur Extremities: No: Cold, Cyanosis Edema: No Integumentary: No: Jaundice Neurological: Yes: Alert, Oriented (x3) Psychiatric: No: Agitated - Other Data Labs, Other Data: CBC, BMP 04/03/17 08:15 04/03/17 08:15 MPI 01/28 (dipyridamole): no ST changes; inferior fixed defect (reverse distribution) thought to be 2/2 diaphragmatic attenuation. No ischemia/ infarct. Dilated left ventricle with severely reduced systolic function, global. EF 18%. echo 03/2017: mod lve, sev dec lvef, 20%, global hk Echo 01/2017: 1+ concentric lvh. 1+ lve. LV fn severely reduced, global. nl rv size, mildly depressed fn. mod-sev eccentric MR. rvsp 40-50. Echo 09/2016: Sev LV dilation. Sev reduced LV function. (global). RV not well visualized. Mobile density c/w torn chordae (veg can't be excluded). Ao not well visualized. RVSP not assessed. (During hospital admit for sepsis) - NL LV function 01/2016. ECG 03/30, 03/31: NSR, ST-Ts anterolateral leads not signif changed vs prior . PVCs (ventric bigeminy on 03/31 strip) a/p: 67 y.o. male with a PMH of HTN, HL, systolic cardiomyopathy CHF, ESRD (on HD), chronic anemia, sacral debubitus ulcers, copd, and IDDM here with cp. CP: -non-anginal sx description -trop neg x 3, ecg non-ischemic -highly suspicious this is m-skel etiology (which he's had in past apparently). no further w/u indicated at this time chronic systolic chf: - noted to have depressed EF during previous admit. cath deferred at that time due to pt admitted non-adherence pattern to meds (e.g. DAPT regimen), known significant anemia with h/o transfusions, and poor candidacy for CABG consideration given frailty, poor mobility with decubitus ulcers, etc. 01/28 stress test without ischemia, pt managed medically. - has been on metopr 50mg daily dose since at least 09/28, very unlikely low dose nitrates +/- hydral will improve EF significantly. EF remained severely depressed as of 01/28 and on echo here now. Outpt discussions for ICD given low lvef. - cont metoprolol 25 mg bid (NH dose). no ELIOT sec to hyperkalemia. sbp 90s- 100s here. isordil started here. bp stable, consider hydralazine later if bp tolerating. Patient now with bacteremia, monitor for worsening hypotension. -currently no statin listed on NH meds per ER note, total chol 88--would not start statin with cholesterol this low (and LDL 40s). Will hold aspirin for now in light of recurrent anemia requiring transfusions. HTN: - monitor on HF regimen. ESRD: -volume mgm't per hd and lasix, per renal anemia: -? sec to ckd. Trending down here. Plan for transfusion today with HD. -per pmd, renal bacteremia - on antibiotics. ID following.
[2017-04-03] MEDS ORDERED: SERTRALINE HCL 25 MG TABLET (FP) ONE (11:37)
[2017-04-03] MEDS ORDERED: SERTRALINE HCL 50 MG TABLET (FP) ONE (11:37)
--- NOTE | 2017-04-03 12:31 | PN ---
Progress Note (short form) - Note Progress Note: Renal follow up for ESRD on HD Pt seen and examined during dialysis pt near the end of the treatment, BP 90/50 getting IV Abx pt w/o complaints catheter with good flow Vital Signs Temperature 98.7 F 04/03/17 08:56 Pulse Rate 80 04/03/17 11:54 Respiratory Rate 18 04/03/17 11:54 Blood Pressure 102/62 04/03/17 11:54 O2 Sat by Pulse Oximetry (%) 98 04/03/17 08:56 Intake & Output 03/31/17 04/01/17 04/02/17 04/03/17 23:59 23:59 23:59 23:59 Intake Total 1260 2009 1380 0 Balance 1260 2009 1380 0 Weight 95.708 kg NAD awake and alert RRR NO LE edema CBC, BMP 04/03/17 08:15 04/03/17 08:15 Current Medications Acetaminophen (Tylenol -) 650 mg PO Q6H PRN PRN Reason: FEVER OR PAIN Calcium Acetate (Phoslo -) 1,334 mg PO TIDCM [facility] Last Admin: 04/03/17 08:37 Dose: 1,334 mg Collagenase (Santyl -) 1 applic TP DAILY [facility] Last Admin: 04/02/17 11:10 Dose: 1 applic Finasteride (Proscar -) 5 mg PO DAILY [facility] Last Admin: 04/02/17 09:31 Dose: 5 mg Furosemide (Lasix -) 80 mg PO DAILY [facility] Last Admin: 04/02/17 09:30 Dose: 80 mg Heparin Sodium (Porcine) (Heparin -) 5,000 unit SQ BID [facility] Last Admin: 04/02/17 23:02 Dose: 5,000 unit Insulin Aspart (Novolog Vial Sliding Scale -) 1 vial SQ BIDAC [facility] PRN Reason: Protocol Last Admin: 04/03/17 06:36 Dose: Not Given Insulin Detemir (Levemir Vial) 5 units SQ HS [facility] Last Admin: 04/02/17 23:01 Dose: 5 units Isosorbide Dinitrate (Isordil -) 10 mg PO TIDISORDIL [facility] Last Admin: 04/03/17 08:37 Dose: 10 mg Metoprolol Succinate (Toprol Xl -) 25 mg PO BID [facility] Last Admin: 04/02/17 23:01 Dose: 25 mg Mirtazapine (Remeron -) 15 mg PO HS [facility] Last Admin: 04/02/17 23:03 Dose: Not Given Ondansetron HCl (Zofran -) 4 mg PO Q8H PRN PRN Reason: NAUSEA AND/OR VOMITING Sertraline HCl 25 mg/ (Sertraline HCl 50 mg) 75 mg PO DAILY [facility] Last Admin: 04/02/17 09:31 Dose: 75 mg 67 year old gentleman with PMhx of ESRD on HD (TTS, non-complaint with treatment ), IDDM, Hypertension, Sacral decubitis ulcer who presented from [facility] with chest pain and found have K of 6.8. #ESRD on HD with Hyperkalemia tolerating dialysis well catheter with good flow dose all meds for intermittent HD #VRE Bacteremia repeat culture w/o growth so far s/p dapto/gent yesterday and to get dose today will check blood culture from catheter today #Anemia in setting of CKD s/p PRBC transfusion with improvement in Hgb will continue high dose WILY with HD no IV iron given bacteremia #New AVF with abdias in place will consult vascular Sx to follow up Thank you Dominick Vanegas DO
[2017-04-03] MEDS: FUROSEMIDE 40 MG TABLET (FP) PO SCH (14:03)
[2017-04-03] MEDS: HEPARIN NA (PORCINE) 5,000 UNITS/ML 1ML VIAL SQ SCH ×2 (14:03→22:15)
[2017-04-03] MEDS: SERTRALINE HCL PO SCH (14:03)
[2017-04-03] MEDS: FINASTERIDE 5 MG TABLET (FP) PO SCH (14:04)
[2017-04-03] MEDS: METOPROLOL SUCCINATE 25 MG TAB.SR.24H (FP) PO SCH ×2 (14:04→22:15)
--- NOTE | 2017-04-03 14:11 | PN ---
Progress Note (short form) - Note Progress Note: VAscular Surgery Pt seen and examined. Left basilic vein fistula with good bruit and thrill. [place] removed. Please have pt come back to vascular clinic for US to check maturity of avf. Pt needs to have left avf transposed for use. Tonio culver DO
[2017-04-03] MEDS: COLLAGENASE CLOSTRIDIUM HIST. 30 GRAMS TUBE TP SCH (14:13)
--- NOTE | 2017-04-03 17:43 | PN ---
Progress Note (short form) - Note Progress Note: patient seen and examined. Not in good mood Wants to go back to [facility] all follow-ups noted. [place] removed. Vital Signs Temp 98.2 F 04/03/17 14:10 Pulse 95 H 04/03/17 14:10 Resp 16 04/03/17 14:10 BP 104/60 04/03/17 14:10 Pulse Ox 98 04/03/17 08:56 Intake & Output 04/02/17 04/03/17 04/03/17 23:59 11:59 23:59 Intake Total 770 0 400 Balance 770 0 400 Intake: IV 10 lhand 03/31 10 Oral 760 0 400 Other: Voiding Method Incontinent Incontinent Incontinent Bowel Movement Yes Yes Yes # Bowel Movements 1 1 Active Medications Acetaminophen (Tylenol -) 650 mg PO Q6H PRN PRN Reason: FEVER OR PAIN Calcium Acetate (Phoslo -) 1,334 mg PO TIDCM [facility] Last Admin: 04/03/17 17:25 Dose: 1,334 mg Collagenase (Santyl -) 1 applic TP DAILY [facility] Last Admin: 04/03/17 14:13 Dose: 1 applic Finasteride (Proscar -) 5 mg PO DAILY [facility] Last Admin: 04/03/17 14:04 Dose: 5 mg Furosemide (Lasix -) 80 mg PO DAILY [facility] Last Admin: 04/03/17 14:03 Dose: 80 mg Heparin Sodium (Porcine) (Heparin -) 5,000 unit SQ BID [facility] Last Admin: 04/03/17 14:03 Dose: 5,000 unit Insulin Aspart (Novolog Vial Sliding Scale -) 1 vial SQ BIDAC [facility] PRN Reason: Protocol Last Admin: 04/03/17 17:27 Dose: Not Given Insulin Detemir (Levemir Vial) 5 units SQ HS [facility] Last Admin: 04/02/17 23:01 Dose: 5 units Isosorbide Dinitrate (Isordil -) 10 mg PO TIDISORDIL [facility] Last Admin: 04/03/17 17:25 Dose: 10 mg Metoprolol Succinate (Toprol Xl -) 25 mg PO BID [facility] Last Admin: 04/03/17 14:04 Dose: 25 mg Mirtazapine (Remeron -) 15 mg PO HS [facility] Last Admin: 04/02/17 23:03 Dose: Not Given Ondansetron HCl (Zofran -) 4 mg PO Q8H PRN PRN Reason: NAUSEA AND/OR VOMITING Sertraline HCl 25 mg/ (Sertraline HCl 50 mg) 75 mg PO DAILY [facility] Last Admin: 04/03/17 14:03 Dose: 75 mg CBC, BMP 04/03/17 08:15 04/03/17 08:15 Microbiology 04/01/17 21:50 Blood Culture - Preliminary Blood - Peripheral Venous NO GROWTH OBTAINED AFTER 24 HOURS, INCUBATION TO CONTINUE FOR 4 DAYS. 04/01/17 19:45 Blood Culture - Preliminary Blood - Peripheral Venous NO GROWTH OBTAINED AFTER 24 HOURS, INCUBATION TO CONTINUE FOR 4 DAYS. 03/30/17 21:55 Blood Culture - Final Blood - Peripheral Venous Vr Ec Faecium 03/30/17 21:55 Blood Culture - Final Blood - Peripheral Venous Vr Ec Faecium Physical exam alert and awake--Comfortable. Lungs--clear CVS--- S1 and S2 regular Abdomen--soft Extremities--- no edema Neuro--- alert and awake Assessment and plan Atypical chest pain----CA ruled out Hypoglycemia---better Restarted on Levemir--monitor sepsis--growing VRE ID to follow echocardiogram--- noted--diminished LV function refusing CAT scan. Will follow. discussed with nursing staff. Problem List - Problems (1) Hypoglycemia Code(s): E16.2 - HYPOGLYCEMIA, UNSPECIFIED (2) Chest pain Code(s): R07.9 - CHEST PAIN, UNSPECIFIED Qualifiers: Chest pain type: unspecified Qualified Code(s): R07.9 - Chest pain, unspecified (3) Hyperkalemia Code(s): E87.5 - HYPERKALEMIA (4) Sepsis Code(s): A41.9 - SEPSIS, UNSPECIFIED ORGANISM (5) Anemia Code(s): D64.9 - ANEMIA, UNSPECIFIED Qualifiers: Anemia type: unspecified type Qualified Code(s): D64.9 - Anemia, unspecified
[2017-04-03] MEDS: INSULIN DETEMIR 100 UNITS/ML MDV SQ SCH (22:15)
[2017-04-03] MEDS: MIRTAZAPINE 15 MG TABLET (FP) PO SCH (22:23)
[2017-04-04] MEDS: INSULIN SLIDING SCALE (NOVOLOG) 1 VIAL SQ SCH ×2 (06:13→17:03)
--- NOTE | 2017-04-04 08:16 | PN ---
Progress Note (short form) - Note Progress Note: wants to leave no complaints refusing to talk to me today feels fine refused ct scan of abd/pelvis echo ordered 2 days ago not done and cancelled as well! Vital Signs Period Temp Pulse Resp BP Sys/Vogt Pulse Ox Last 24 Hr 97.6 F-98.7 F 68-97 16-18 92-117/45-73 98-99 cor-rrr lungs decreased bs at bases abd soft,nt ext no edema +sacral ulcers CBC, BMP 04/03/17 08:15 04/03/17 08:15 Laboratory Tests 06/18/16 08/14/16 04/02/17 05:00 06:30 05:35 ESR Hemoglobin A1c % 15.9 H D C-Reactive Protein 6.6 H D Random Vancomycin 10.5 04/02/17 04/03/17 04/03/17 05:35 08:15 08:15 ESR 63 H 50 H Hemoglobin A1c % C-Reactive Protein 8.9 H D Random Vancomycin Microbiology 04/01/17 21:50 Blood - Peripheral Venous Blood Culture - Preliminary NO GROWTH OBTAINED AFTER 48 HOURS, INCUBATION TO CONTINUE FOR 3 DAYS. 04/01/17 19:45 Blood - Peripheral Venous Blood Culture - Preliminary NO GROWTH OBTAINED AFTER 48 HOURS, INCUBATION TO CONTINUE FOR 3 DAYS. 03/30/17 21:55 Blood - Peripheral Venous Blood Culture - Final Vr Ec Faecium 03/30/17 21:55 Blood - Peripheral Venous Blood Culture - Final Vr Ec Faecium a/p enterococcal bacteremia- VREF! cannot use zyvox due to drug interactions with zoloft will start daptomycin Q48h , continue gent with HD received both antibiotics yesterday, will ask renal to dose after each HD repeat blood cultures pending echo and ct scan should be done source of bacteremia is not clear will d/w renal and PMD esrd/hd
[2017-04-04] MEDS ORDERED: SERTRALINE HCL 50 MG TABLET (FP) ONE (08:31)
[2017-04-04] MEDS ORDERED: SERTRALINE HCL 25 MG TABLET (FP) ONE (08:31)
[2017-04-04] MEDS: ISOSORBIDE DINITRATE 10 MG TABLET (FP) PO SCH ×3 (08:39→17:01)
[2017-04-04] MEDS: CALCIUM ACETATE 667 MG CAPSULE (FP) PO SCH ×3 (08:39→17:01)
--- NOTE | 2017-04-04 09:10 | PN ---
Progress Note (short form) - Note Progress Note: patient seen and examined no complaints abdias removed yesterday Vital Signs Temp 98.8 F 04/04/17 08:45 Pulse 83 04/04/17 08:45 Resp 18 04/04/17 08:45 BP 93/51 04/04/17 08:45 Pulse Ox 99 04/03/17 21:00 Intake & Output 04/03/17 04/03/17 04/04/17 11:59 23:59 11:59 Intake Total 0 710 240 Balance 0 710 240 Intake: IV 10 lhand 03/31 10 Oral 0 700 240 Other: Voiding Method Incontinent Incontinent Bowel Movement Yes No Yes # Bowel Movements 1 Active Medications Acetaminophen (Tylenol -) 650 mg PO Q6H PRN PRN Reason: FEVER OR PAIN Calcium Acetate (Phoslo -) 1,334 mg PO TIDCM [facility] Last Admin: 04/04/17 08:39 Dose: 1,334 mg Collagenase (Santyl -) 1 applic TP DAILY [facility] Last Admin: 04/03/17 14:13 Dose: 1 applic Finasteride (Proscar -) 5 mg PO DAILY [facility] Last Admin: 04/03/17 14:04 Dose: 5 mg Furosemide (Lasix -) 80 mg PO DAILY [facility] Last Admin: 04/03/17 14:03 Dose: 80 mg Heparin Sodium (Porcine) (Heparin -) 5,000 unit SQ BID [facility] Last Admin: 04/03/17 22:15 Dose: 5,000 unit Insulin Aspart (Novolog Vial Sliding Scale -) 1 vial SQ BIDAC [facility] PRN Reason: Protocol Last Admin: 04/04/17 06:13 Dose: Not Given Insulin Detemir (Levemir Vial) 5 units SQ HS [facility] Last Admin: 04/03/17 22:15 Dose: 5 units Isosorbide Dinitrate (Isordil -) 10 mg PO TIDISORDIL [facility] Last Admin: 04/04/17 08:39 Dose: 10 mg Metoprolol Succinate (Toprol Xl -) 25 mg PO BID [facility] Last Admin: 04/03/17 22:15 Dose: 25 mg Mirtazapine (Remeron -) 15 mg PO HS [facility] Last Admin: 04/03/17 22:23 Dose: Not Given Ondansetron HCl (Zofran -) 4 mg PO Q8H PRN PRN Reason: NAUSEA AND/OR VOMITING Sertraline HCl 25 mg/ (Sertraline HCl 50 mg) 75 mg PO DAILY [facility] Last Admin: 04/03/17 14:03 Dose: 75 mg Abnormal Lab Results 04/03/17 04/03/17 04/03/17 08:15 08:15 08:15 RBC 3.06 L Hgb 8.6 L Hct 27.1 L MCHC 31.8 L RDW 18.4 H ESR Sodium 134 L BUN 39 H Creatinine 3.1 H Random Glucose 141 H D Calcium 7.4 L C-Reactive Protein 8.9 H D 04/03/17 08:15 RBC Hgb Hct MCHC RDW ESR 50 H Sodium BUN Creatinine Random Glucose Calcium C-Reactive Protein N- alert, oriented cvs-s1s2 lungs-clear abd-soft,NT le- no edema a/p Atypical chest pain ESRD anemia- acute on chronic-OB negative DM severe LV dysfunction- EF-20% VRE bacteremia -troponins negative , EKG- negative- SC ruled out -HD-TIW -Patient refused GI work up in the past many times -anemia of CKD most likely but occult GI pathology cannot be ruled out - multiple transfusions in the past - discussion regarding ICD as outpatient PER cardiology -continue BB, ISORDIL, lasix -on daptomycin Q48h, garamycin with HD Problem List - Problems (1) Bacteremia due to Enterococcus Code(s): R78.81 - BACTEREMIA; B95.2 - ENTEROCOCCUS THE CAUSE OF DISEASES CLASSIFIED ELSEWHERE (2) Sacral pressure ulcer Code(s): L89.159 - PRESSURE ULCER OF SACRAL REGION, UNSPECIFIED STAGE (3) Sepsis Code(s): A41.9 - SEPSIS, UNSPECIFIED ORGANISM (4) Anemia Code(s): D64.9 - ANEMIA, UNSPECIFIED Qualifiers: Anemia type: unspecified type Qualified Code(s): D64.9 - Anemia, unspecified (5) Diabetes Code(s): E11.9 - TYPE 2 DIABETES MELLITUS WITHOUT COMPLICATIONS Qualifiers: (6) End stage kidney disease Code(s): N18.6 - END STAGE RENAL DISEASE
[2017-04-04] MEDS: FUROSEMIDE 40 MG TABLET (FP) PO SCH (10:31)
[2017-04-04] MEDS: HEPARIN NA (PORCINE) 5,000 UNITS/ML 1ML VIAL SQ SCH ×2 (10:31→21:19)
[2017-04-04] MEDS: SERTRALINE HCL PO SCH (10:31)
[2017-04-04] MEDS: METOPROLOL SUCCINATE 25 MG TAB.SR.24H (FP) PO SCH ×2 (10:31→21:20)
[2017-04-04] MEDS: FINASTERIDE 5 MG TABLET (FP) PO SCH (10:31)
--- NOTE | 2017-04-04 11:09 | PN ---
Progress Note (short form) - Note Progress Note: Chief Complaint: cp History of Present Illness: no cp, palps, dizziness, sob. Current Medications Generic Name Dose Route Start Last Admin Trade Name Frecheryl PRN Reason Stop Dose Admin Acetaminophen 650 mg 03/30/17 17:42 Tylenol - PO Q6H PRN FEVER OR PAIN Calcium Acetate 1,334 mg 03/31/17 08:00 04/04/17 08:39 Phoslo - PO 1,334 mg TIDCM [facility] Administration Collagenase 1 applic 03/31/17 10:00 04/03/17 14:13 Santyl - TP 1 applic DAILY [facility] Administration Finasteride 5 mg 03/31/17 10:00 04/04/17 10:31 Proscar - PO Not Given DAILY [facility] Furosemide 80 mg 03/31/17 10:00 04/04/17 10:31 Lasix - PO Not Given DAILY [facility] Heparin Sodium (Porcine) 5,000 unit 03/30/17 22:00 04/04/17 10:31 Heparin - SQ 5,000 unit BID [facility] Administration Insulin Aspart 1 vial 04/01/17 07:00 04/04/17 06:13 Novolog Vial Sliding Scale - SQ Not Given BIDAC [facility] Protocol Insulin Detemir 5 units 04/01/17 22:00 04/03/17 22:15 Levemir Vial SQ 5 units HS [facility] Administration Isosorbide Dinitrate 10 mg 03/31/17 13:00 04/04/17 08:39 Isordil - PO 10 mg TIDISORDIL [facility] Administration Metoprolol Succinate 25 mg 03/30/17 22:00 04/04/17 10:31 Toprol Xl - PO Not Given BID [facility] Mirtazapine 15 mg 03/30/17 22:00 04/03/17 22:23 Remeron - PO Not Given HS [facility] Ondansetron HCl 4 mg 03/30/17 17:42 Zofran - PO Q8H PRN NAUSEA AND/OR VOMITING Sertraline HCl 25 mg/ 75 mg 03/31/17 10:00 04/04/17 10:31 Sertraline HCl 50 mg PO Not Given DAILY [facility] Vital Signs Period Temp Pulse Resp BP Sys/Vogt Pulse Ox Last 24 Hr 97.6 F-98.8 F 68-95 16-18 93-111/45-73 99 Constitutional: Yes: cachectic, No Distress Eyes: No: Sclera Icterus HENT: No: Nasal Congestion Respiratory: Yes: CTA Bilaterally (decr sounds diffusely). No: Accessory Muscle Use, Rales, Wheezes Gastrointestinal: Yes: Normal Bowel Sounds. No: Distention, Hepatomegaly, Palpable Mass, Tenderness Cardiovascular: Yes: Regular Rate and Rhythm JVD: No Heart Sounds: Yes: S1, S2. No: Gallop Murmur: No: Systolic Murmur, Diastolic Murmur Extremities: No: Cold, Cyanosis Edema: No Integumentary: No: Jaundice Neurological: Yes: Alert, Oriented (x3) Psychiatric: No: Agitated - Other Data Labs, Other Data: CBC, BMP 04/03/17 08:15 04/03/17 08:15 MPI 01/28 (dipyridamole): no ST changes; inferior fixed defect (reverse distribution) thought to be 2/2 diaphragmatic attenuation. No ischemia/ infarct. Dilated left ventricle with severely reduced systolic function, global. EF 18%. echo 03/2017: mod lve, sev dec lvef, 20%, global hk Echo 01/2017: 1+ concentric lvh. 1+ lve. LV fn severely reduced, global. nl rv size, mildly depressed fn. mod-sev eccentric MR. rvsp 40-50. Echo 09/2016: Sev LV dilation. Sev reduced LV function. (global). RV not well visualized. Mobile density c/w torn chordae (veg can't be excluded). Ao not well visualized. RVSP not assessed. (During hospital admit for sepsis) - NL LV function 01/2016. ECG 03/30, 03/31: NSR, ST-Ts anterolateral leads not signif changed vs prior . PVCs (ventric bigeminy on 03/31 strip) a/p: 67 y.o. male with a PMH of HTN, HL, systolic cardiomyopathy CHF, ESRD (on HD), chronic anemia, sacral debubitus ulcers, copd, and IDDM here with cp. CP: -non-anginal sx description -trop neg x 3, ecg non-ischemic -resolved now -highly suspicious this is m-skel etiology (which he's had in past apparently). no further w/u indicated at this time. chronic systolic chf: - noted to have depressed EF during previous admit. cath deferred at that time due to pt admitted non-adherence pattern to meds (e.g. DAPT regimen), known significant anemia with h/o transfusions, and poor candidacy for CABG consideration given frailty, poor mobility with decubitus ulcers, etc. 01/28 stress test without ischemia, pt managed medically. - has been on metopr 50mg daily dose since at least 09/28, very unlikely low dose nitrates +/- hydral will improve EF significantly. EF remained severely depressed as of 01/28 and on echo here now. Outpt discussions for ICD given low lvef. - cont metoprolol 25 mg bid (NH dose). no ELIOT sec to hyperkalemia. sbp 90s- 100s here. isordil started here. bp stable, consider hydralazine later if bp tolerating. Patient now with bacteremia, monitor for worsening hypotension. -currently no statin listed on NH meds per ER note, total chol 88--would not start statin with cholesterol this low (and LDL 40s). Will hold aspirin for now in light of recurrent anemia requiring transfusions. HTN: - monitor on HF regimen. ESRD: -volume mgm't per hd and lasix, per renal anemia: -? sec to ckd. Trending down here. Plan for transfusion today with HD. -per pmd, renal bacteremia - on antibiotics. ID following.
[2017-04-04] MEDS: COLLAGENASE CLOSTRIDIUM HIST. 30 GRAMS TUBE TP SCH (12:17)
--- NOTE | 2017-04-04 15:56 | PN ---
Progress Note (short form) - Note Progress Note: Renal follow up for ESRD on HD Pt seen and examined at the bedside awake and alert no acute complaints no fevers, chills, N/V, Abd pain having some loose stools Vital Signs Temperature 98.8 F 04/04/17 08:45 Pulse Rate 83 04/04/17 08:45 Respiratory Rate 18 04/04/17 09:00 Blood Pressure 93/51 04/04/17 08:45 O2 Sat by Pulse Oximetry (%) 99 04/04/17 09:00 Intake & Output 04/01/17 04/02/17 04/03/17 04/04/17 23:59 23:59 23:59 23:59 Intake Total 2009 1380 710 240 Balance 2009 1380 710 240 NAD awake and alert RRR NO LE edema CBC, BMP 04/03/17 08:15 04/03/17 08:15 Current Medications Acetaminophen (Tylenol -) 650 mg PO Q6H PRN PRN Reason: FEVER OR PAIN Calcium Acetate (Phoslo -) 1,334 mg PO TIDCM [facility] Last Admin: 04/04/17 12:16 Dose: 1,334 mg Collagenase (Santyl -) 1 applic TP DAILY [facility] Last Admin: 04/04/17 12:17 Dose: 1 applic Finasteride (Proscar -) 5 mg PO DAILY [facility] Last Admin: 04/04/17 10:31 Dose: Not Given Furosemide (Lasix -) 80 mg PO DAILY [facility] Last Admin: 04/04/17 10:31 Dose: Not Given Heparin Sodium (Porcine) (Heparin -) 5,000 unit SQ BID [facility] Last Admin: 04/04/17 10:31 Dose: 5,000 unit Insulin Aspart (Novolog Vial Sliding Scale -) 1 vial SQ BIDAC [facility] PRN Reason: Protocol Last Admin: 04/04/17 06:13 Dose: Not Given Insulin Detemir (Levemir Vial) 5 units SQ HS [facility] Last Admin: 04/03/17 22:15 Dose: 5 units Isosorbide Dinitrate (Isordil -) 10 mg PO TIDISORDIL [facility] Last Admin: 04/04/17 12:17 Dose: Not Given Metoprolol Succinate (Toprol Xl -) 25 mg PO BID [facility] Last Admin: 04/04/17 10:31 Dose: Not Given Mirtazapine (Remeron -) 15 mg PO HS [facility] Last Admin: 04/03/17 22:23 Dose: Not Given Ondansetron HCl (Zofran -) 4 mg PO Q8H PRN PRN Reason: NAUSEA AND/OR VOMITING Sertraline HCl 25 mg/ (Sertraline HCl 50 mg) 75 mg PO DAILY [facility] Last Admin: 04/04/17 10:31 Dose: Not Given 67 year old gentleman with PMhx of ESRD on HD (TTS, non-complaint with treatment ), IDDM, Hypertension, Sacral decubitis ulcer who presented from [facility] with chest pain and found have K of 6.8. #ESRD on HD no acute indication for [employer] today next dialysis is planned for tomorrow #VRE Bacteremia repeat culture w/o growth so far s/p dapto/gent yesterday with dialysis for Ct of the Abd and Pelvis with IV contrast ID following Pt can get Dapto in the [place]/outpatient unit #Anemia in setting of CKD s/p PRBC transfusion with improvement in Hgb will continue high dose WILY with HD Thank you Dominick Vanegas DO
--- NOTE | 2017-04-04 16:08 | PN ---
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 Documentation reviewed. Case discussed Vital Signs Temp 98.8 F 04/04/17 08:45 Pulse 83 04/04/17 08:45 Resp 18 04/04/17 09:00 BP 93/51 04/04/17 08:45 Pulse Ox 99 04/04/17 09:00 Intake & Output 04/03/17 04/04/17 04/04/17 23:59 11:59 23:59 Intake Total 710 240 Balance 710 240 Intake: IV 10 lhand 03/31 10 Oral 700 240 Other: Voiding Method Incontinent Diaper Bowel Movement No Yes # Bowel Movements 1 exam- alert, oriented cvs-[id number] lungs-clear abd-soft,NT le- no edema a/p Atypical chest pain ESRD anemia- acute on chronic-OB negative DM severe LV dysfunction- EF-20% VRE bacteremia -troponins negative , EKG- negative- ME ruled out -HD-TIW -Patient refused GI work up in the past many times -anemia of CKD most likely but occult GI pathology cannot be ruled out - multiple transfusions in the past - discussion regarding ICD as outpatient PER cardiology -continue BB, ISORDIL, lasix -on daptomycin Q48h, garamycin with HD I also discussed with ID and Dr. Alex crawford today as well as nursing staff Difficult situation as patient refusing CAT scan--- detailed echo Continue antibiotics for now. Will follow. Problem List - Problems (1) Hypoglycemia Code(s): E16.2 - HYPOGLYCEMIA, UNSPECIFIED (2) Chest pain Code(s): R07.9 - CHEST PAIN, UNSPECIFIED Qualifiers: Chest pain type: unspecified Qualified Code(s): R07.9 - Chest pain, unspecified (3) Hyperkalemia Code(s): E87.5 - HYPERKALEMIA (4) Sepsis Code(s): A41.9 - SEPSIS, UNSPECIFIED ORGANISM (5) Anemia Code(s): D64.9 - ANEMIA, UNSPECIFIED Qualifiers: Anemia type: unspecified type Qualified Code(s): D64.9 - Anemia, unspecified
[2017-04-04] MEDS: MIRTAZAPINE 15 MG TABLET (FP) PO SCH (21:19)
[2017-04-04] MEDS: INSULIN DETEMIR 100 UNITS/ML MDV SQ SCH (21:19)
[2017-04-05] MEDS: INSULIN SLIDING SCALE (NOVOLOG) 1 VIAL SQ SCH ×2 (06:54→17:18)
[2017-04-05] MEDS ORDERED: GENTAMICIN INJECTION 80 MG in DEXTROSE 5%-WATER - 250 ML IVPB ONE (07:30)
[2017-04-05] MEDS ORDERED: EPOETIN ALFA 20,000 UNIT/1 ML VIAL IVPUSH ONE (07:30)
[2017-04-05] MEDS ORDERED: SODIUM CHLORIDE IVPB ONE (07:30)
[2017-04-05] MEDS ORDERED: DAPTOMYCIN IVPB ONE (07:30)
[2017-04-05] MEDS: ISOSORBIDE DINITRATE 10 MG TABLET (FP) PO SCH ×3 (08:00→17:21)
[2017-04-05 08:20] LABS: HEMATOCRIT 29.2 % (35.4-49); MCH 28.1 pg (25.7-33.7); MCHC 30.9 g/dl (32.0-35.9); MEAN CELL VOLUME 91.1 fl (80-96); MEAN PLT VOLUME 7.7 fl (7.5-11.1); PLATELET COUNT 206 K/MM3 (134-434); RBC 3.21 M/mm3 (4.00-5.60); RDW 18.6 % (11.9-15.9); WHITE BLOOD COUNT 9.9 K/mm3 (4.0-10.0)
[2017-04-05 08:42] LABS: BLOOD UREA NITROGEN 35 mg/dL (7-18); CHLORIDE 102 mmol/L (98-107); CO2 25 mmol/L (21-32); CREATININE 3.2 mg/dL (0.7-1.3); GLUCOSE,RANDOM 83 mg/dL (74-106); POTASSIUM 4.6 mmol/L (3.5-5.1); SODIUM 137 mmol/L (136-145)
[2017-04-05 08:43] LABS: ALBUMIN 1.8 g/dl (3.4-5.0); ALK PHOS 139 U/L (45-117); ANION GAP 10 (8-16); BILIRUBIN,TOTAL 0.6 mg/dL (0.2-1.0); CALCIUM 7.7 mg/dL (8.5-10.1); SGOT/AST 8 U/L (15-37); SGPT/ALT 10 U/L (12-78); TOT PROT 6.3 g/dl (6.4-8.2)
[2017-04-05] MEDS: METOPROLOL SUCCINATE 25 MG TAB.SR.24H (FP) PO SCH ×2 (10:00→21:54)
[2017-04-05] MEDS: FINASTERIDE 5 MG TABLET (FP) PO SCH (10:00)
[2017-04-05] MEDS: FUROSEMIDE 40 MG TABLET (FP) PO SCH (10:00)
[2017-04-05] MEDS: COLLAGENASE CLOSTRIDIUM HIST. 30 GRAMS TUBE TP SCH (10:00)
[2017-04-05] MEDS: SERTRALINE HCL PO SCH (10:00)
--- NOTE | 2017-04-05 10:30 | PN ---
Progress Note, Physician Chief Complaint: bacteremia History of Present Illness: denies sob, cp, palpit, leg swelling ex cigs - Current Medication List Current Medications: Active Medications Acetaminophen (Tylenol -) 650 mg PO Q6H PRN PRN Reason: FEVER OR PAIN Calcium Acetate (Phoslo -) 1,334 mg PO TIDCM [facility] Last Admin: 04/04/17 17:01 Dose: 1,334 mg Collagenase (Santyl -) 1 applic TP DAILY [facility] Last Admin: 04/04/17 12:17 Dose: 1 applic Finasteride (Proscar -) 5 mg PO DAILY [facility] Last Admin: 04/04/17 10:31 Dose: Not Given Furosemide (Lasix -) 80 mg PO DAILY [facility] Last Admin: 04/04/17 10:31 Dose: Not Given Heparin Sodium (Porcine) (Heparin -) 5,000 unit SQ BID [facility] Last Admin: 04/04/17 21:19 Dose: 5,000 unit Insulin Aspart (Novolog Vial Sliding Scale -) 1 vial SQ BIDAC [facility] PRN Reason: Protocol Last Admin: 04/05/17 06:54 Dose: Not Given Insulin Detemir (Levemir Vial) 5 units SQ HS [facility] Last Admin: 04/04/17 21:19 Dose: 5 units Isosorbide Dinitrate (Isordil -) 10 mg PO TIDISORDIL [facility] Last Admin: 04/04/17 17:01 Dose: Not Given Metoprolol Succinate (Toprol Xl -) 25 mg PO BID [facility] Last Admin: 04/04/17 21:20 Dose: Not Given Mirtazapine (Remeron -) 15 mg PO HS [facility] Last Admin: 04/04/17 21:19 Dose: 15 mg Ondansetron HCl (Zofran -) 4 mg PO Q8H PRN PRN Reason: NAUSEA AND/OR VOMITING Sertraline HCl 25 mg/ (Sertraline HCl 50 mg) 75 mg PO DAILY [facility] Last Admin: 04/04/17 10:31 Dose: Not Given - Objective Vital Signs: Vital Signs Temperature 97.9 F 04/05/17 06:00 Pulse Rate 93 H 04/05/17 06:00 Respiratory Rate 20 04/05/17 06:00 Blood Pressure 106/59 04/05/17 06:00 O2 Sat by Pulse Oximetry (%) 95 04/04/17 21:00 Constitutional: Yes: No Distress, Calm Eyes: No: Sclera Icterus HENT: No: Nasal Congestion Cardiovascular: Yes: Regular Rate and Rhythm, JVD (8 cm), S1, S2, Other (PMI non diplaced). No: Gallop, Murmur Respiratory: Yes: CTA Bilaterally. No: Accessory Muscle Use, Rales, Wheezes Gastrointestinal: Yes: Normal Bowel Sounds, Soft. No: Tenderness Musculoskeletal: Yes: Other (No kyphosis) Extremities: No: Cold Edema: No Integumentary: No: Jaundice Neurological: Yes: Alert, Oriented (x3) Psychiatric: No: Agitated Labs: CBC, BMP 04/05/17 06:20 04/05/17 06:20 Assessment/Plan MPI 01/28 (dipyridamole): no ST changes; inferior fixed defect (reverse distribution) thought to be 2/2 diaphragmatic attenuation. No ischemia/ infarct. Dilated left ventricle with severely reduced systolic function, global. EF 18%. Ecoh 04/04/17: sev LVE, sev decr LVEF. mod RVE, mod RV hypo. mod-severe MR ( eccentric). mod-sev TR. RVSP 40-50. no vegetation noted. Echo 04/02/2017: mod lve, sev dec lvef, 20%, global hk Echo 01/2017: 1+ concentric lvh. 1+ lve. LV fn severely reduced, global. nl rv size, mildly depressed fn. mod-sev eccentric MR. rvsp 40-50. Echo 09/2016: Sev LV dilation. Sev reduced LV function. (global). RV not well visualized. Mobile density c/w torn chordae (veg can't be excluded). Ao not well visualized. RVSP not assessed. (During hospital admit for sepsis) - NL LV function 01/2016. ECG 03/30, 03/31: NSR, ST-Ts anterolateral leads not signif changed vs prior . PVCs (ventric bigeminy on 03/31 strip) a/p: 67 y.o. male with a PMH of HTN, HL, systolic cardiomyopathy CHF, ESRD (on HD), chronic anemia, sacral debubitus ulcers, copd, and IDDM here with cp. VREF enterococcal bacteremia: -tx per ID -echo no vegetation seen (note: MR not a new finding--present on 01/28 study as well, possibly due to torn chorda vs decomp chf) -serial BCx's as doing CP: -non-anginal sx description -trop neg x 3, ecg non-ischemic -resolved now -highly suspicious this is m-skel etiology (which he's had in past apparently). no further w/u indicated at this time. acute on chronic systolic chf, mitral regurg: - noted to have depressed EF during previous admit. cath deferred at that time due to pt admitted non-adherence pattern to meds (e.g. DAPT regimen), known significant anemia with h/o transfusions, and poor candidacy for CABG consideration given frailty, poor mobility with decubitus ulcers, etc. 01/28 stress test without ischemia, pt managed medically. - has been on metopr 50mg daily dose since at least 09/28, very unlikely low dose nitrates +/- hydral will improve EF significantly. EF remained severely depressed as of 01/28 and on echo here now. Outpt discussions for ICD given low lvef. - cont metoprolol 25 mg bid ([place] dose). no ELIOT sec to hyperkalemia. isordil started here. bp stable, consider hydralazine - bp's running 90s-110s - CXR with mild congestion (fluid in fissure, ? right effusion), JVD elevated-- however remains comfortable with no sob--will d/w renal increasing fluid off at HD if he can tolerate this bp-taveras) - ICD discussion needs to wait until bacteremia is treated--needs office f/u - currently no statin listed on [place] meds per ER note, total chol 88--would not start statin with cholesterol this low (and LDL 40s). Will hold aspirin for now in light of recurrent anemia requiring transfusions. - if recovers from acute illness and is willing to f/u with us, should have BETTY as outpt to quantify severity of MR (prefer to do [facility]) and consider MV repair if potentially primary MR causing LV dysfunction (torn chorda suspected on 09/28 study, though MR only mild then--has worsened as of 01/28, ? 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 sec to ckd. Trending down here. Plan for transfusion today with HD. -per pmd, renal
[2017-04-05] MEDS ORDERED: SERTRALINE HCL 50 MG TABLET (FP) ONE (12:07)
[2017-04-05] MEDS ORDERED: SERTRALINE HCL 25 MG TABLET (FP) ONE (12:07)
[2017-04-05] MEDS ORDERED: PT OWN MED DRAWER 7, Y5N ONE (12:08)
[2017-04-05] MEDS: CALCIUM ACETATE 667 MG CAPSULE (FP) PO SCH ×3 (12:11→17:21)
[2017-04-05] MEDS: HEPARIN NA (PORCINE) 5,000 UNITS/ML 1ML VIAL SQ SCH ×2 (12:11→21:54)
--- NOTE | 2017-04-05 14:11 | PN ---
Progress Note, Physician History of Present Illness: comfortable gor echo/ ct scan done friend / hcp t bedside being dialized. all f/u noted - Current Medication List Current Medications: Active Medications Acetaminophen (Tylenol -) 650 mg PO Q6H PRN PRN Reason: FEVER OR PAIN Calcium Acetate (Phoslo -) 1,334 mg PO TIDCM [facility] Last Admin: 04/05/17 12:11 Dose: 1,334 mg Collagenase (Santyl -) 1 applic TP DAILY [facility] Last Admin: 04/04/17 12:17 Dose: 1 applic Finasteride (Proscar -) 5 mg PO DAILY [facility] Last Admin: 04/04/17 10:31 Dose: Not Given Furosemide (Lasix -) 80 mg PO DAILY [facility] Last Admin: 04/04/17 10:31 Dose: Not Given Heparin Sodium (Porcine) (Heparin -) 5,000 unit SQ BID [facility] Last Admin: 04/05/17 12:11 Dose: 5,000 unit Insulin Aspart (Novolog Vial Sliding Scale -) 1 vial SQ BIDAC [facility] PRN Reason: Protocol Last Admin: 04/05/17 06:54 Dose: Not Given Insulin Detemir (Levemir Vial) 5 units SQ HS [facility] Last Admin: 04/04/17 21:19 Dose: 5 units Isosorbide Dinitrate (Isordil -) 10 mg PO TIDISORDIL [facility] Last Admin: 04/04/17 17:01 Dose: Not Given Metoprolol Succinate (Toprol Xl -) 25 mg PO BID [facility] Last Admin: 04/04/17 21:20 Dose: Not Given Mirtazapine (Remeron -) 15 mg PO HS [facility] Last Admin: 04/04/17 21:19 Dose: 15 mg Ondansetron HCl (Zofran -) 4 mg PO Q8H PRN PRN Reason: NAUSEA AND/OR VOMITING Sertraline HCl 25 mg/ (Sertraline HCl 50 mg) 75 mg PO DAILY [facility] Last Admin: 04/04/17 10:31 Dose: Not Given - Objective Vital Signs: Vital Signs Temperature 98.5 F 04/05/17 12:20 Pulse Rate 88 04/05/17 13:55 Respiratory Rate 18 04/05/17 13:55 Blood Pressure 101/58 04/05/17 13:55 O2 Sat by Pulse Oximetry (%) 96 04/05/17 09:00 Constitutional: Yes: No Distress, Calm Neck: Yes: Supple Cardiovascular: Yes: Regular Rate and Rhythm Respiratory: Yes: CTA Bilaterally Gastrointestinal: Yes: Soft Edema: No Labs: CBC, BMP 04/05/17 06:20 04/05/17 06:20 Problem List - Problems (1) Hypoglycemia Code(s): E16.2 - HYPOGLYCEMIA, UNSPECIFIED (2) Chest pain Code(s): R07.9 - CHEST PAIN, UNSPECIFIED Qualifiers: Chest pain type: unspecified Qualified Code(s): R07.9 - Chest pain, unspecified (3) Hyperkalemia Code(s): E87.5 - HYPERKALEMIA (4) Sepsis Code(s): A41.9 - SEPSIS, UNSPECIFIED ORGANISM (5) Anemia Code(s): D64.9 - ANEMIA, UNSPECIFIED Qualifiers: Anemia type: unspecified type Qualified Code(s): D64.9 - Anemia, unspecified (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 will follow discussed with pts hcp/ friend also who is at bedside.
--- NOTE | 2017-04-05 15:15 | PN ---
Progress Note, Physician History of Present Illness: Awake,alert No focal complaint Afebrile - Current Medication List Current Medications: Active Medications Acetaminophen (Tylenol -) 650 mg PO Q6H PRN PRN Reason: FEVER OR PAIN Calcium Acetate (Phoslo -) 1,334 mg PO TIDCM [facility] Last Admin: 04/05/17 12:11 Dose: 1,334 mg Collagenase (Santyl -) 1 applic TP DAILY [facility] Last Admin: 04/04/17 12:17 Dose: 1 applic Finasteride (Proscar -) 5 mg PO DAILY [facility] Last Admin: 04/04/17 10:31 Dose: Not Given Furosemide (Lasix -) 80 mg PO DAILY [facility] Last Admin: 04/04/17 10:31 Dose: Not Given Heparin Sodium (Porcine) (Heparin -) 5,000 unit SQ BID [facility] Last Admin: 04/05/17 12:11 Dose: 5,000 unit Insulin Aspart (Novolog Vial Sliding Scale -) 1 vial SQ BIDAC [facility] PRN Reason: Protocol Last Admin: 04/05/17 06:54 Dose: Not Given Insulin Detemir (Levemir Vial) 5 units SQ HS [facility] Last Admin: 04/04/17 21:19 Dose: 5 units Isosorbide Dinitrate (Isordil -) 10 mg PO TIDISORDIL [facility] Last Admin: 04/04/17 17:01 Dose: Not Given Metoprolol Succinate (Toprol Xl -) 25 mg PO BID [facility] Last Admin: 04/04/17 21:20 Dose: Not Given Mirtazapine (Remeron -) 15 mg PO HS [facility] Last Admin: 04/04/17 21:19 Dose: 15 mg Ondansetron HCl (Zofran -) 4 mg PO Q8H PRN PRN Reason: NAUSEA AND/OR VOMITING Sertraline HCl 25 mg/ (Sertraline HCl 50 mg) 75 mg PO DAILY [facility] Last Admin: 04/04/17 10:31 Dose: Not Given - Objective Vital Signs: Vital Signs Temperature 98.1 F 04/05/17 14:28 Pulse Rate 81 04/05/17 14:55 Respiratory Rate 18 04/05/17 14:55 Blood Pressure 94/46 04/05/17 14:55 O2 Sat by Pulse Oximetry (%) 96 04/05/17 09:00 Constitutional: Yes: No Distress Cardiovascular: Yes: Regular Rate and Rhythm, S1, S2 Respiratory: Yes: CTA Bilaterally Gastrointestinal: Yes: Normal Bowel Sounds, Soft Edema: Yes Integumentary: Yes: Other (catheter site no erythema) Labs: CBC, BMP 04/05/17 06:20 04/05/17 06:20 Assessment/Plan VRE bacteremia Repeat BC no growth ESRD CT shows pleural effusion, splenic infarct, thickened urinary bladder, cholelithiasis Continue daptomycin, adjusted for ESRD
--- NOTE | 2017-04-05 16:50 | PN ---
Progress Note (short form) - Note Progress Note: coverage for dr alvarado chart reviewed and pt examined ESRD ON HD CHEST PAIN being eval VRE Bacteremia H/o sacral decub r/o abscess also splenic infarct aaa aneurism aicd s/p iv contrast study seen on dialysis, no complaints Current Medications Acetaminophen (Tylenol -) 650 mg PO Q6H PRN PRN Reason: FEVER OR PAIN Calcium Acetate (Phoslo -) 1,334 mg PO TIDCM [facility] Last Admin: 04/05/17 12:11 Dose: 1,334 mg Collagenase (Santyl -) 1 applic TP DAILY [facility] Last Admin: 04/04/17 12:17 Dose: 1 applic Finasteride (Proscar -) 5 mg PO DAILY [facility] Last Admin: 04/04/17 10:31 Dose: Not Given Furosemide (Lasix -) 80 mg PO DAILY [facility] Last Admin: 04/04/17 10:31 Dose: Not Given Heparin Sodium (Porcine) (Heparin -) 5,000 unit SQ BID [facility] Last Admin: 04/05/17 12:11 Dose: 5,000 unit Insulin Aspart (Novolog Vial Sliding Scale -) 1 vial SQ BIDAC [facility] PRN Reason: Protocol Last Admin: 04/05/17 06:54 Dose: Not Given Insulin Detemir (Levemir Vial) 5 units SQ HS [facility] Last Admin: 04/04/17 21:19 Dose: 5 units Isosorbide Dinitrate (Isordil -) 10 mg PO TIDISORDIL [facility] Last Admin: 04/04/17 17:01 Dose: Not Given Metoprolol Succinate (Toprol Xl -) 25 mg PO BID [facility] Last Admin: 04/04/17 21:20 Dose: Not Given Mirtazapine (Remeron -) 15 mg PO HS [facility] Last Admin: 04/04/17 21:19 Dose: 15 mg Ondansetron HCl (Zofran -) 4 mg PO Q8H PRN PRN Reason: NAUSEA AND/OR VOMITING Sertraline HCl 25 mg/ (Sertraline HCl 50 mg) 75 mg PO DAILY [facility] Last Admin: 04/04/17 10:31 Dose: Not Given Last Vital Signs Temp Pulse Resp BP Pulse Ox 98.1 F 81 18 112/61 96 04/05/17 14:28 04/05/17 16:00 04/05/17 16:00 04/05/17 16:00 04/05/17 09:00 alert in nad Lungs clear Heart reg Abd soft nontender Ext no edema CBC, BMP 04/05/17 06:20 04/05/17 06:20 ESRD stable during dialysis VRE bacteremia Repeat BC no growth CT shows pleural effusion, splenic infarct, thickened urinary bladder, cholelithiasis Continue daptomycin, adjusted for ESRD
[2017-04-05] MEDS: INSULIN DETEMIR 100 UNITS/ML MDV SQ SCH (21:54)
[2017-04-05] MEDS: MIRTAZAPINE 15 MG TABLET (FP) PO SCH (21:55)
[2017-04-06] MEDS: INSULIN SLIDING SCALE (NOVOLOG) 1 VIAL SQ SCH ×2 (06:08→17:06)
--- NOTE | 2017-04-06 09:17 | PN ---
Progress Note, Physician Chief Complaint: bacteremia History of Present Illness: denies sob, orthopnea (doesn't get OOB) no cp, palpitations, syncope, leg swelling ex cigs - Current Medication List Current Medications: Active Medications Acetaminophen (Tylenol -) 650 mg PO Q6H PRN PRN Reason: FEVER OR PAIN Calcium Acetate (Phoslo -) 1,334 mg PO TIDCM [facility] Last Admin: 04/05/17 17:21 Dose: 1,334 mg Collagenase (Santyl -) 1 applic TP DAILY [facility] Last Admin: 04/05/17 10:00 Dose: 1 applic Finasteride (Proscar -) 5 mg PO DAILY [facility] Last Admin: 04/05/17 10:00 Dose: Not Given Furosemide (Lasix -) 80 mg PO DAILY [facility] Last Admin: 04/05/17 10:00 Dose: Not Given Heparin Sodium (Porcine) (Heparin -) 5,000 unit SQ BID [facility] Last Admin: 04/05/17 21:54 Dose: 5,000 unit Insulin Aspart (Novolog Vial Sliding Scale -) 1 vial SQ BIDAC [facility] PRN Reason: Protocol Last Admin: 04/06/17 06:08 Dose: Not Given Insulin Detemir (Levemir Vial) 5 units SQ HS [facility] Last Admin: 04/05/17 21:54 Dose: 5 units Isosorbide Dinitrate (Isordil -) 10 mg PO TIDISORDIL [facility] Last Admin: 04/05/17 17:21 Dose: 10 mg Metoprolol Succinate (Toprol Xl -) 25 mg PO BID [facility] Last Admin: 04/05/17 21:54 Dose: 25 mg Mirtazapine (Remeron -) 15 mg PO HS [facility] Last Admin: 04/05/17 21:55 Dose: Not Given Ondansetron HCl (Zofran -) 4 mg PO Q8H PRN PRN Reason: NAUSEA AND/OR VOMITING Sertraline HCl 25 mg/ (Sertraline HCl 50 mg) 75 mg PO DAILY [facility] Last Admin: 04/05/17 10:00 Dose: Not Given - Objective Vital Signs: Vital Signs Temperature 97.2 F L 04/06/17 02:00 Pulse Rate 99 H 04/06/17 02:00 Respiratory Rate 18 04/06/17 02:00 Blood Pressure 121/73 04/06/17 02:00 O2 Sat by Pulse Oximetry (%) 96 04/05/17 21:00 Constitutional: Yes: No Distress, Calm Eyes: No: Sclera Icterus HENT: No: Nasal Congestion Cardiovascular: Yes: Regular Rate and Rhythm, JVD, S1, S2, Other (PMI non diplaced). No: Gallop, Murmur Respiratory: Yes: CTA Bilaterally. No: Accessory Muscle Use, Rales, Wheezes Gastrointestinal: Yes: Normal Bowel Sounds, Soft. No: Tenderness Musculoskeletal: Yes: Other (No kyphosis) Extremities: No: Cold, Cyanosis Edema: No Integumentary: No: Jaundice Neurological: Yes: Alert, Oriented (x3) Psychiatric: No: Agitated Labs: CBC, BMP 04/05/17 06:20 04/05/17 06:20 Assessment/Plan MPI 01/28 (dipyridamole): no ST changes; inferior fixed defect (reverse distribution) thought to be 2/2 diaphragmatic attenuation. No ischemia/ infarct. Dilated left ventricle with severely reduced systolic function, global. EF 18%. Ecoh 04/04/17: sev LVE, sev decr LVEF. mod RVE, mod RV hypo. mod-severe MR ( eccentric). mod-sev TR. RVSP 40-50. no vegetation noted. Echo 04/02/2017: mod lve, sev dec lvef, 20%, global hk Echo 01/2017: 1+ concentric lvh. 1+ lve. LV fn severely reduced, global. nl rv size, mildly depressed fn. mod-sev eccentric MR. rvsp 40-50. Echo 09/2016: Sev LV dilation. Sev reduced LV function. (global). RV not well visualized. Mobile density c/w torn chordae (veg can't be excluded). Ao not well visualized. RVSP not assessed. (During hospital admit for sepsis) - NL LV function 01/2016. ECG 03/30, 03/31: NSR, ST-Ts anterolateral leads not signif changed vs prior . PVCs (ventric bigeminy on 03/31 strip) CT abdomen: splenic infarct suspected (new vs 02/28); 4.3 cm AAA. large ( partially loculated) L effusion, small R a/p: 67 y.o. male with a PMH of HTN, HL, systolic cardiomyopathy CHF, ESRD (on HD), chronic anemia, sacral debubitus ulcers, copd, and IDDM here with cp. VREF enterococcal bacteremia ([facility]-acquired): -1 BCx positive here -tx per ID, following serial BCXs (thus far repeat Cxs negative to date) -echo no vegetation seen. mod-severe MR not a new finding (present on 01/28 study as well, possibly due to torn chorda vs decomp chf) -CT scan with new splenic infarct, hence with 2 minor Hoover criteria--i.e. not c/ w possible (or definite) IE dx -no signs of acute chf here. suspect partially loculated effusions are chronic vol overload related to underlying syst dysfunction and him being at too high of a target wt with HD (given also with pulm HTN at least since 01/28). -per d/w dr bhatti, pt will receive 4-6 wks abx regardless of IE dx -d/w'd pt today indication for BETTY--i.e. to consider valve surgery if signs of severe valve dysfunction referable to IE. he states he thinks he will probably decline surgery even if it is rec'd, but he is not certain and would like to proceed with BETTY first. (definitely at high risk for poor outcome incl if requires valve surgery for SBE, given comorbidities and poor functional status). -will plan for BETTY on sunday 04/08 (no stigmata of acute cardiac sequelae of IE --mitral regurg and chf is chronic here, no hemodynamic/electrical instability-- no indication for transfer to tertiary care center unless definitive dx is made) . -rec tele, however pt refusing monitor CP: -mskel features, resolved now -non-anginal sx description -trop neg x 3, ecg non-ischemic acute on chronic systolic chf, mitral regurg: - noted to have depressed EF during previous admit. cath deferred at that time due to pt admitted non-adherence pattern to meds (e.g. DAPT regimen), known significant anemia with h/o transfusions, and poor candidacy for CABG consideration given frailty, poor mobility with decubitus ulcers, etc. 01/28 stress test without ischemia, pt managed medically. - has been on metopr 50mg daily dose since at least 09/28, very unlikely low dose nitrates +/- hydral will improve EF significantly. EF remained severely depressed as of 01/28 and on echo here now. Outpt discussions for ICD given low lvef. - cont metoprolol 25 mg bid ([facility] dose). no ELIOT sec to hyperkalemia. isordil started here. bp stable, consider hydralazine - bp's running 90s-110s - CXR with mild congestion (fluid in fissure, ? right effusion), JVD elevated-- however remains comfortable with no sob--will d/w renal increasing fluid off at HD if he can tolerate this bp-taveras) - ICD discussion needs to wait until bacteremia is treated- - currently no statin listed on [place] meds per ER note, total chol 88--would not start statin with cholesterol this low (and LDL 40s). Will hold aspirin for now in light of recurrent anemia requiring transfusions. - if recovers from acute illness and is willing to f/u with us, should have BETTY as outpt to quantify severity of MR (prefer to do at [facility]) and consider MV repair if potentially primary MR causing LV dysfunction (torn chorda suspected on 09/28 study, though MR only mild then--has worsened as of 01/28, ? 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 sec to ckd. Trending down here. Plan for transfusion today with HD. -per pmd, renal
--- NOTE | 2017-04-06 10:41 | PN ---
Progress Note, Physician Chief Complaint: ID Daptomycin and Gent to be given at dialysis - Current Medication List Current Medications: Active Medications Acetaminophen (Tylenol -) 650 mg PO Q6H PRN PRN Reason: FEVER OR PAIN Calcium Acetate (Phoslo -) 1,334 mg PO TIDCM [facility] Last Admin: 04/05/17 17:21 Dose: 1,334 mg Collagenase (Santyl -) 1 applic TP DAILY [facility] Last Admin: 04/05/17 10:00 Dose: 1 applic Finasteride (Proscar -) 5 mg PO DAILY [facility] Last Admin: 04/05/17 10:00 Dose: Not Given Furosemide (Lasix -) 80 mg PO DAILY [facility] Last Admin: 04/05/17 10:00 Dose: Not Given Heparin Sodium (Porcine) (Heparin -) 5,000 unit SQ BID [facility] Last Admin: 04/05/17 21:54 Dose: 5,000 unit Insulin Aspart (Novolog Vial Sliding Scale -) 1 vial SQ BIDAC [facility] PRN Reason: Protocol Last Admin: 04/06/17 06:08 Dose: Not Given Insulin Detemir (Levemir Vial) 5 units SQ HS [facility] Last Admin: 04/05/17 21:54 Dose: 5 units Isosorbide Dinitrate (Isordil -) 10 mg PO TIDISORDIL [facility] Last Admin: 04/05/17 17:21 Dose: 10 mg Metoprolol Succinate (Toprol Xl -) 25 mg PO BID [facility] Last Admin: 04/05/17 21:54 Dose: 25 mg Mirtazapine (Remeron -) 15 mg PO HS [facility] Last Admin: 04/05/17 21:55 Dose: Not Given Ondansetron HCl (Zofran -) 4 mg PO Q8H PRN PRN Reason: NAUSEA AND/OR VOMITING Sertraline HCl 25 mg/ (Sertraline HCl 50 mg) 75 mg PO DAILY [facility] Last Admin: 04/05/17 10:00 Dose: Not Given - Objective Vital Signs: Vital Signs Temperature 97.2 F L 04/06/17 02:00 Pulse Rate 99 H 04/06/17 02:00 Respiratory Rate 18 04/06/17 02:00 Blood Pressure 121/73 04/06/17 02:00 O2 Sat by Pulse Oximetry (%) 96 04/05/17 21:00 Constitutional: Yes: No Distress Cardiovascular: Yes: S1, S2 Respiratory: Yes: WNL, Regular, CTA Bilaterally Labs: CBC, BMP 04/05/17 06:20 04/05/17 06:20 Assessment/Plan Microbiology 03/30/17 21:55 Blood - Peripheral Venous Blood Culture - Final Vr Ec Faecium 03/30/17 21:55 Blood - Peripheral Venous Blood Culture - Final Vr Ec Faecium 04/03/17 08:30 Blood - Shiley Catheter Blood Culture - Preliminary NO GROWTH OBTAINED AFTER 72 HOURS, INCUBATION TO CONTINUE FOR 2 DAYS. 04/03/17 08:30 Blood - Shiley Catheter Blood Culture - Preliminary NO GROWTH OBTAINED AFTER 72 HOURS, INCUBATION TO CONTINUE FOR 2 DAYS. 04/01/17 21:50 Blood - Peripheral Venous Blood Culture - Preliminary NO GROWTH OBTAINED AFTER 96 HOURS, INCUBATION TO CONTINUE FOR 1 DAYS. 04/01/17 19:45 Blood - Peripheral Venous Blood Culture - Preliminary NO GROWTH OBTAINED AFTER 96 HOURS, INCUBATION TO CONTINUE FOR 1 DAYS. Laboratory Tests 04/02/17 04/03/17 04/03/17 05:35 08:15 08:15 WBC Hgb Hct Plt Count ESR 50 H Total Bilirubin ALT Alkaline Phosphatase Creatine Kinase C-Reactive Protein 6.6 H D 8.9 H D 04/05/17 04/05/17 06:20 06:20 WBC 9.9 Hgb 9.0 L Hct 29.2 L Plt Count 206 ESR Total Bilirubin 0.6 ALT 10 L Alkaline Phosphatase 139 H Creatine Kinase 29 L C-Reactive Protein Assessment VREF bacteremia Note possible splenic infarct raising question of embolic event Plan As discussed with cardiology do not see a reason to transfer at this time His repeat blood cultures are no growth Continue Daptomycinn and gent at dialysis Going to need half-way treatment in light of splenic infarct jamel Gamez MD
[2017-04-06] MEDS ORDERED: SERTRALINE HCL 50 MG TABLET (FP) ONE (11:05)
[2017-04-06] MEDS ORDERED: SERTRALINE HCL 25 MG TABLET (FP) ONE (11:05)
[2017-04-06] MEDS ORDERED: PT OWN MED DRAWER 7, Y5N ONE (11:06)
[2017-04-06] MEDS: HEPARIN NA (PORCINE) 5,000 UNITS/ML 1ML VIAL SQ SCH (11:09)
[2017-04-06] MEDS: SERTRALINE HCL PO SCH (11:09)
[2017-04-06] MEDS: COLLAGENASE CLOSTRIDIUM HIST. 30 GRAMS TUBE TP SCH (11:09)
[2017-04-06] MEDS: FUROSEMIDE 40 MG TABLET (FP) PO SCH (11:10)
[2017-04-06] MEDS: CALCIUM ACETATE 667 MG CAPSULE (FP) PO SCH ×3 (11:10→17:09)
[2017-04-06] MEDS: FINASTERIDE 5 MG TABLET (FP) PO SCH (11:10)
[2017-04-06] MEDS: METOPROLOL SUCCINATE 25 MG TAB.SR.24H (FP) PO SCH ×2 (11:10→22:37)
[2017-04-06] MEDS: ISOSORBIDE DINITRATE 10 MG TABLET (FP) PO SCH ×3 (11:10→17:09)
--- NOTE | 2017-04-06 14:01 | PN ---
Progress Note, Physician History of Present Illness: awake/ comfortable forgetful denies pain. All f/u noted / appreciated yandel planned also for Friday. - Current Medication List Current Medications: Active Medications Acetaminophen (Tylenol -) 650 mg PO Q6H PRN PRN Reason: FEVER OR PAIN Al Hydroxide/Mg Hydroxide (Mylanta Oral Suspension -) 30 ml PO ONCE ONE Stop: 04/06/17 14:31 Calcium Acetate (Phoslo -) 1,334 mg PO TIDCM [facility] Last Admin: 04/06/17 12:05 Dose: 1,334 mg Collagenase (Santyl -) 1 applic TP DAILY [facility] Last Admin: 04/06/17 11:09 Dose: 1 applic Finasteride (Proscar -) 5 mg PO DAILY [facility] Last Admin: 04/06/17 11:10 Dose: 5 mg Furosemide (Lasix -) 80 mg PO DAILY [facility] Last Admin: 04/06/17 11:10 Dose: 80 mg Heparin Sodium (Porcine) (Heparin -) 5,000 unit SQ BID [facility] Last Admin: 04/06/17 11:09 Dose: 5,000 unit Daptomycin 575 mg/ Sodium (Chloride) 100 mls @ 200 mls/hr IVPB Q48H [facility] Gentamicin Sulfate/Sodium Chloride (Garamycin 80 Mg Premixed Ivpb -) 80 mg in 100 mls @ 100 mls/hr IVPB TuThSa [facility] Insulin Aspart (Novolog Vial Sliding Scale -) 1 vial SQ BIDAC [facility] PRN Reason: Protocol Last Admin: 04/06/17 06:08 Dose: Not Given Insulin Detemir (Levemir Vial) 5 units SQ HS [facility] Last Admin: 04/05/17 21:54 Dose: 5 units Isosorbide Dinitrate (Isordil -) 10 mg PO TIDISORDIL [facility] Last Admin: 04/06/17 12:05 Dose: 10 mg Metoprolol Succinate (Toprol Xl -) 25 mg PO BID [facility] Last Admin: 04/06/17 11:10 Dose: 25 mg Mirtazapine (Remeron -) 15 mg PO HS [facility] Last Admin: 04/05/17 21:55 Dose: Not Given Ondansetron HCl (Zofran -) 4 mg PO Q8H PRN PRN Reason: NAUSEA AND/OR VOMITING Sertraline HCl 25 mg/ (Sertraline HCl 50 mg) 75 mg PO DAILY [facility] Last Admin: 04/06/17 11:09 Dose: 75 mg - Objective Vital Signs: Vital Signs Temperature 99.3 F 04/06/17 10:00 Pulse Rate 96 H 04/06/17 10:00 Respiratory Rate 19 04/06/17 10:00 Blood Pressure 112/64 04/06/17 10:00 O2 Sat by Pulse Oximetry (%) 96 04/06/17 09:00 Constitutional: Yes: No Distress, Calm Eyes: Yes: Conjunctiva Clear Neck: Yes: Supple Cardiovascular: Yes: Regular Rate and Rhythm Respiratory: Yes: CTA Bilaterally Gastrointestinal: Yes: Soft Edema: No Labs: CBC, BMP 04/05/17 06:20 04/05/17 06:20 Problem List - Problems (1) Hypoglycemia Code(s): E16.2 - HYPOGLYCEMIA, UNSPECIFIED (2) Chest pain Code(s): R07.9 - CHEST PAIN, UNSPECIFIED Qualifiers: Chest pain type: unspecified Qualified Code(s): R07.9 - Chest pain, unspecified (3) Hyperkalemia Code(s): E87.5 - HYPERKALEMIA (4) Sepsis Code(s): A41.9 - SEPSIS, UNSPECIFIED ORGANISM (5) Anemia Code(s): D64.9 - ANEMIA, UNSPECIFIED Qualifiers: Anemia type: unspecified type Qualified Code(s): D64.9 - Anemia, unspecified (6) Splenic infarct Code(s): D73.5 - INFARCTION OF SPLEEN (7) AAA (abdominal aortic aneurysm) Code(s): I71.4 - ABDOMINAL AORTIC ANEURYSM, WITHOUT RUPTURE (8) Cardiomyopathy Code(s): I42.9 - CARDIOMYOPATHY, UNSPECIFIED Assessment/Plan comfortable continue present care abx splenic infarct - concern of embolism-- yandel planned if pt agrees aaa aneurism-- monitor aicd as out pt to be considered after acute sepsis issues are resolved. will follow
[2017-04-06] MEDS ORDERED: MAG HYDROX/AL HYDROX/SIMETH 30 ML UNIT-DOSE CUP PO ONE (14:30)
--- NOTE | 2017-04-06 16:20 | PN ---
Progress Note (short form) - Note Progress Note: coverage for dr alvarado chart reviewed and pt examined ESRD ON HD CHEST PAIN being eval VRE Bacteremia H/o sacral decub r/o abscess also splenic infarct aaa aneurism aicd s/p iv contrast study seen on dialysis, no complaints Current Medications Acetaminophen (Tylenol -) 650 mg PO Q6H PRN PRN Reason: FEVER OR PAIN Calcium Acetate (Phoslo -) 1,334 mg PO TIDCM [facility] Last Admin: 04/06/17 12:05 Dose: 1,334 mg Collagenase (Santyl -) 1 applic TP DAILY [facility] Last Admin: 04/06/17 11:09 Dose: 1 applic Finasteride (Proscar -) 5 mg PO DAILY [facility] Last Admin: 04/06/17 11:10 Dose: 5 mg Furosemide (Lasix -) 80 mg PO DAILY [facility] Last Admin: 04/06/17 11:10 Dose: 80 mg Heparin Sodium (Porcine) (Heparin -) 5,000 unit SQ BID [facility] Last Admin: 04/06/17 11:09 Dose: 5,000 unit Daptomycin 575 mg/ Sodium (Chloride) 100 mls @ 200 mls/hr IVPB Q48H [facility] Gentamicin Sulfate/Sodium Chloride (Garamycin 80 Mg Premixed Ivpb -) 80 mg in 100 mls @ 100 mls/hr IVPB TuThSa [facility] Insulin Aspart (Novolog Vial Sliding Scale -) 1 vial SQ BIDAC [facility] PRN Reason: Protocol Last Admin: 04/06/17 06:08 Dose: Not Given Insulin Detemir (Levemir Vial) 5 units SQ HS [facility] Last Admin: 04/05/17 21:54 Dose: 5 units Isosorbide Dinitrate (Isordil -) 10 mg PO TIDISORDIL [facility] Last Admin: 04/06/17 12:05 Dose: 10 mg Metoprolol Succinate (Toprol Xl -) 25 mg PO BID [facility] Last Admin: 04/06/17 11:10 Dose: 25 mg Mirtazapine (Remeron -) 15 mg PO HS [facility] Last Admin: 04/05/17 21:55 Dose: Not Given Ondansetron HCl (Zofran -) 4 mg PO Q8H PRN PRN Reason: NAUSEA AND/OR VOMITING Sertraline HCl 25 mg/ (Sertraline HCl 50 mg) 75 mg PO DAILY [facility] Last Admin: 04/06/17 11:09 Dose: 75 mg Last Vital Signs Temp Pulse Resp BP Pulse Ox 97.4 F L 97 H 18 140/81 96 04/06/17 14:00 04/06/17 14:00 04/06/17 14:00 04/06/17 14:00 04/06/17 09:00 alert in nad Lungs clear Heart reg Abd soft nontender Ext no edema CBC, BMP 04/05/17 06:20 04/05/17 06:20 ESRD stable during dialysis VRE bacteremia Repeat BC no growth CT shows pleural effusion, splenic infarct, thickened urinary bladder, cholelithiasis Continue daptomycin, adjusted for ESRD
[2017-04-06] MEDS: MIRTAZAPINE 15 MG TABLET (FP) PO SCH (22:37)
[2017-04-06] MEDS: INSULIN DETEMIR 100 UNITS/ML MDV SQ SCH (22:37)
[2017-04-07] MEDS: INSULIN SLIDING SCALE (NOVOLOG) 1 VIAL SQ SCH ×2 (06:04→17:25)
[2017-04-07] MEDS ORDERED: SERTRALINE HCL 50 MG TABLET (FP) ONE (08:41)
[2017-04-07] MEDS ORDERED: SERTRALINE HCL 25 MG TABLET (FP) ONE (08:42)
[2017-04-07] MEDS: CALCIUM ACETATE 667 MG CAPSULE (FP) PO SCH ×3 (08:50→17:32)
[2017-04-07] MEDS: ISOSORBIDE DINITRATE 10 MG TABLET (FP) PO SCH ×3 (08:50→17:32)
[2017-04-07] MEDS: FUROSEMIDE 40 MG TABLET (FP) PO SCH (10:14)
[2017-04-07] MEDS: FINASTERIDE 5 MG TABLET (FP) PO SCH (10:15)
[2017-04-07] MEDS: SERTRALINE HCL PO SCH (10:15)
[2017-04-07] MEDS: METOPROLOL SUCCINATE 25 MG TAB.SR.24H (FP) PO SCH ×2 (10:17→21:09)
[2017-04-07] MEDS: COLLAGENASE CLOSTRIDIUM HIST. 30 GRAMS TUBE TP SCH (10:17)
--- NOTE | 2017-04-07 11:12 | PN ---
Progress Note, Physician Chief Complaint: bacteremia History of Present Illness: denies sob, orthopnea, cp, palpitations, syncope ex cigs - Current Medication List Current Medications: Active Medications Acetaminophen (Tylenol -) 650 mg PO Q6H PRN PRN Reason: FEVER OR PAIN Calcium Acetate (Phoslo -) 1,334 mg PO TIDCM [facility] Last Admin: 04/07/17 08:50 Dose: 1,334 mg Collagenase (Santyl -) 1 applic TP DAILY [facility] Last Admin: 04/07/17 10:17 Dose: 1 applic Finasteride (Proscar -) 5 mg PO DAILY [facility] Last Admin: 04/07/17 10:15 Dose: 5 mg Furosemide (Lasix -) 80 mg PO DAILY [facility] Last Admin: 04/07/17 10:14 Dose: 80 mg Daptomycin 575 mg/ Sodium (Chloride) 100 mls @ 200 mls/hr IVPB Q48H [facility] Gentamicin Sulfate/Sodium Chloride (Garamycin 80 Mg Premixed Ivpb -) 80 mg in 100 mls @ 100 mls/hr IVPB TuThSa [facility] Insulin Aspart (Novolog Vial Sliding Scale -) 1 vial SQ BIDAC [facility] PRN Reason: Protocol Last Admin: 04/07/17 06:04 Dose: Not Given Insulin Detemir (Levemir Vial) 5 units SQ [facility] Last Admin: 04/06/17 22:37 Dose: 5 units Isosorbide Dinitrate (Isordil -) 10 mg PO TIDISORDIL [facility] Last Admin: 04/07/17 08:50 Dose: 10 mg Metoprolol Succinate (Toprol Xl -) 25 mg PO BID [facility] Last Admin: 04/07/17 10:17 Dose: Not Given Mirtazapine (Remeron -) 15 mg PO HS [facility] Last Admin: 04/06/17 22:37 Dose: Not Given Ondansetron HCl (Zofran -) 4 mg PO Q8H PRN PRN Reason: NAUSEA AND/OR VOMITING Sertraline HCl 25 mg/ (Sertraline HCl 50 mg) 75 mg PO DAILY [facility] Last Admin: 04/07/17 10:15 Dose: 75 mg - Objective Vital Signs: Vital Signs Temperature 97.9 F 04/07/17 06:00 Pulse Rate 94 H 04/07/17 06:00 Respiratory Rate 18 04/07/17 06:00 Blood Pressure 105/71 04/07/17 06:00 O2 Sat by Pulse Oximetry (%) 96 04/06/17 21:00 Constitutional: Yes: No Distress, Calm Eyes: No: Sclera Icterus HENT: No: Nasal Congestion Cardiovascular: Yes: Regular Rate and Rhythm, JVD, S1, S2, Other (PMI non diplaced). No: Gallop, Murmur Respiratory: Yes: CTA Bilaterally. No: Accessory Muscle Use, Rales, Wheezes Gastrointestinal: Yes: Normal Bowel Sounds, Soft. No: Tenderness Musculoskeletal: Yes: Other (No kyphosis) Extremities: No: Cold Edema: No Integumentary: No: Jaundice Neurological: Yes: Alert, Oriented (x3) Psychiatric: No: Agitated Labs: CBC, BMP 04/05/17 06:20 04/05/17 06:20 Assessment/Plan MPI 01/28 (dipyridamole): no ST changes; inferior fixed defect (reverse distribution) thought to be 2/2 diaphragmatic attenuation. No ischemia/ infarct. Dilated left ventricle with severely reduced systolic function, global. EF 18%. Ecoh 04/04/17: sev LVE, sev decr LVEF. mod RVE, mod RV hypo. mod-severe MR ( eccentric). mod-sev TR. RVSP 40-50. no vegetation noted. Echo 04/02/2017: mod lve, sev dec lvef, 20%, global hk Echo 01/2017: 1+ concentric lvh. 1+ lve. LV fn severely reduced, global. nl rv size, mildly depressed fn. mod-sev eccentric MR. rvsp 40-50. Echo 09/2016: Sev LV dilation. Sev reduced LV function. (global). RV not well visualized. Mobile density c/w torn chordae (veg can't be excluded). Ao not well visualized. RVSP not assessed. (During hospital admit for sepsis) - NL LV function 01/2016. ECG 03/30, 03/31: NSR, ST-Ts anterolateral leads not signif changed vs prior . PVCs (ventric bigeminy on 03/31 strip) CT abdomen: splenic infarct suspected (new vs 02/28); 4.3 cm AAA. large ( partially loculated) L effusion, small R a/p: 67 y.o. male with a PMH of HTN, HL, systolic cardiomyopathy CHF, ESRD (on HD), chronic anemia, sacral debubitus ulcers, copd, and IDDM here with cp. VREF enterococcal bacteremia (NH-acquired): -1 BCx positive here, repeat cx's negative thus far -abx per ID -echo no vegetation seen. mod-severe MR not a new finding (present on 01/28 study as well, possibly due to torn chorda vs decomp chf) -CT scan with new splenic infarct, hence with 2 minor Hoover criteria--i.e. not c/ w possible (or definite) IE dx -no signs of acute chf here. suspect partially loculated effusions are chronic vol overload related to underlying syst dysfunction and him being at too high of a target wt with HD (given also with pulm HTN at least since 01/28). -per d/w dr bhatti, pt will receive 4-6 wks abx regardless of IE dx -d/w'd pt today indication for BETTY--i.e. to consider valve surgery if signs of severe valve dysfunction referable to IE. he states he thinks he will probably decline surgery even if it is rec'd, but he is not certain and would like to proceed with BETTY first. (definitely at high risk for poor outcome incl if requires valve surgery for SBE, given comorbidities and poor functional status). -will plan for BETTY on sunday 04/08 (no stigmata of acute cardiac sequelae of IE --mitral regurg and chf is chronic here, no hemodynamic/electrical instability-- no indication for transfer to tertiary care center unless definitive dx is made) . -rec tele, however pt refusing monitor CP: -mskel features, resolved now -non-anginal sx description -trop neg x 3, ecg non-ischemic acute on chronic systolic chf, mitral regurg: - noted to have depressed EF during previous admit. cath deferred at that time due to pt admitted non-adherence pattern to meds (e.g. DAPT regimen), known significant anemia with h/o transfusions, and poor candidacy for CABG consideration given frailty, poor mobility with decubitus ulcers, etc. 01/28 stress test without ischemia, pt managed medically. - has been on metopr 50mg daily dose since at least 09/28, very unlikely low dose nitrates +/- hydral will improve EF significantly. EF remained severely depressed as of 01/28 and on echo here now. Outpt discussions for ICD given low lvef. - cont metoprolol 25 mg bid (NH dose). no ELIOT sec to hyperkalemia. isordil started here. bp stable, consider hydralazine - bp's running 90s-110s - CXR with mild congestion (fluid in fissure, ? right effusion), JVD elevated-- however remains comfortable with no sob--will d/w renal increasing fluid off at HD if he can tolerate this bp-taveras) - ICD discussion needs to wait until bacteremia is treated - currently no statin listed on [place] meds per ER note, total chol 88--would not start statin with cholesterol this low (and LDL 40s). Will hold aspirin for now in light of recurrent anemia requiring transfusions. - if recovers from acute illness and is willing to f/u with us, should have BETTY as outpt to quantify severity of MR (prefer to do at [place]) and consider MV repair if potentially primary MR causing LV dysfunction (torn chorda suspected on 09/28 study, though MR only mild then--has worsened as of 01/28, ? 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 sec to ckd. Trending down here. Plan for transfusion today with HD. -per pmd, renal
[2017-04-07] MEDS: SODIUM CHLORIDE IVPB SCH (11:39)
[2017-04-07] MEDS: DAPTOMYCIN IVPB SCH (11:39)
--- NOTE | 2017-04-07 12:03 | PN ---
Progress Note (short form) - Note Progress Note: comfortable no new issues afebrile denies pain. Vital Signs Temp 98.4 F 04/07/17 10:00 Pulse 93 H 04/07/17 10:00 Resp 18 04/07/17 10:00 BP 107/53 04/07/17 10:00 Pulse Ox 96 04/07/17 10:00 Intake & Output 04/06/17 04/07/17 04/07/17 23:59 11:59 23:59 Intake Total 310 200 Balance 310 200 Intake: Oral 310 200 Other: Voiding Method Incontinent Incontinent Bowel Movement Yes Yes # Bowel Movements 1 Active Medications Acetaminophen (Tylenol -) 650 mg PO Q6H PRN PRN Reason: FEVER OR PAIN Calcium Acetate (Phoslo -) 1,334 mg PO TIDCM [facility] Last Admin: 04/07/17 11:39 Dose: 1,334 mg Collagenase (Santyl -) 1 applic TP DAILY [facility] Last Admin: 04/07/17 10:17 Dose: 1 applic Finasteride (Proscar -) 5 mg PO DAILY [facility] Last Admin: 04/07/17 10:15 Dose: 5 mg Furosemide (Lasix -) 80 mg PO DAILY [facility] Last Admin: 04/07/17 10:14 Dose: 80 mg Daptomycin 575 mg/ Sodium (Chloride) 100 mls @ 200 mls/hr IVPB Q48H [facility] Last Admin: 04/07/17 11:39 Dose: 200 mls/hr Gentamicin Sulfate/Sodium Chloride (Garamycin 80 Mg Premixed Ivpb -) 80 mg in 100 mls @ 100 mls/hr IVPB TuThSa [facility] Insulin Aspart (Novolog Vial Sliding Scale -) 1 vial SQ BIDAC [facility] PRN Reason: Protocol Last Admin: 04/07/17 06:04 Dose: Not Given Insulin Detemir (Levemir Vial) [address] [facility] Last Admin: 04/06/17 22:37 Dose: 5 units Isosorbide Dinitrate (Isordil -) 10 mg PO TIDISORDIL [facility] Last Admin: 04/07/17 08:50 Dose: 10 mg Metoprolol Succinate (Toprol Xl -) 25 mg PO BID [facility] Last Admin: 04/07/17 10:17 Dose: Not Given Mirtazapine (Remeron -) 15 mg PO HS [facility] Last Admin: 04/06/17 22:37 Dose: Not Given Ondansetron HCl (Zofran -) 4 mg PO Q8H PRN PRN Reason: NAUSEA AND/OR VOMITING Sertraline HCl 25 mg/ (Sertraline HCl 50 mg) 75 mg PO DAILY [facility] Last Admin: 04/07/17 10:15 Dose: 75 mg CBC, BMP 04/05/17 06:20 04/05/17 06:20 Microbiology 04/03/17 08:30 Blood Culture - Preliminary Blood - Shiley Catheter NO GROWTH OBTAINED AFTER 96 HOURS, INCUBATION TO CONTINUE FOR 1 DAYS. 04/03/17 08:30 Blood Culture - Preliminary Blood - Shiley Catheter NO GROWTH OBTAINED AFTER 96 HOURS, INCUBATION TO CONTINUE FOR 1 DAYS. 04/01/17 21:50 Blood Culture - Final Blood - Peripheral Venous NO GROWTH AFTER 5 DAYS INCUBATION 04/01/17 19:45 Blood Culture - Final Blood - Peripheral Venous NO GROWTH AFTER 5 DAYS INCUBATION - Objective Constitutional: Yes: No Distress, Calm. comfortable Eyes: Yes: Conjunctiva Clear Neck: Yes: Supple/ no jvd Cardiovascular: Yes: Regular Rate and Rhythm Respiratory: Yes: CTA Bilaterally Gastrointestinal: Yes: Soft Edema: No a/p stable continue present care . abx yandel planned will follow. 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
--- NOTE | 2017-04-07 17:21 | PN ---
Progress Note (short form) - Note Progress Note: coverage for dr alvarado chart reviewed and pt examined ESRD ON HD CHEST PAIN being eval VRE Bacteremia H/o sacral decub r/o abscess also splenic infarct aaa aneurism aicd s/p iv contrast study Current Medications Acetaminophen (Tylenol -) 650 mg PO Q6H PRN PRN Reason: FEVER OR PAIN Calcium Acetate (Phoslo -) 1,334 mg PO TIDCM [facility] Last Admin: 04/07/17 11:39 Dose: 1,334 mg Collagenase (Santyl -) 1 applic TP DAILY [facility] Last Admin: 04/07/17 10:17 Dose: 1 applic Finasteride (Proscar -) 5 mg PO DAILY [facility] Last Admin: 04/07/17 10:15 Dose: 5 mg Furosemide (Lasix -) 80 mg PO DAILY [facility] Last Admin: 04/07/17 10:14 Dose: 80 mg Daptomycin 575 mg/ Sodium (Chloride) 100 mls @ 200 mls/hr IVPB Q48H [facility] Last Admin: 04/07/17 11:39 Dose: 200 mls/hr Gentamicin Sulfate/Sodium Chloride (Garamycin 80 Mg Premixed Ivpb -) 80 mg in 100 mls @ 100 mls/hr IVPB TuTa [facility] Insulin Aspart (Novolog Vial Sliding Scale -) 1 vial SQ BIDAC [facility] PRN Reason: Protocol Last Admin: 04/07/17 06:04 Dose: Not Given Insulin Detemir (Levemir Vial) 5 units SQ HS [facility] Last Admin: 04/06/17 22:37 Dose: 5 units Isosorbide Dinitrate (Isordil -) 10 mg PO TIDISORDIL [facility] Last Admin: 04/07/17 14:52 Dose: Not Given Metoprolol Succinate (Toprol Xl -) 25 mg PO BID [facility] Last Admin: 04/07/17 10:17 Dose: Not Given Mirtazapine (Remeron -) 15 mg PO HS [facility] Last Admin: 04/06/17 22:37 Dose: Not Given Ondansetron HCl (Zofran -) 4 mg PO Q8H PRN PRN Reason: NAUSEA AND/OR VOMITING Sertraline HCl 25 mg/ (Sertraline HCl 50 mg) 75 mg PO DAILY [facility] Last Admin: 04/07/17 10:15 Dose: 75 mg Last Vital Signs Temp Pulse Resp BP Pulse Ox 98.4 F 93 H 18 107/53 96 04/07/17 10:00 04/07/17 10:00 04/07/17 10:00 04/07/17 10:00 04/07/17 10:00 alert in nad Lungs clear Heart reg Abd soft nontender Ext no edema CBC, BMP 04/05/17 06:20 04/05/17 06:20 CBC, BMP 04/05/17 06:20 04/05/17 06:20 ESRD stable during dialysis VRE bacteremia Repeat BC no growth CT shows pleural effusion, splenic infarct, thickened urinary bladder, cholelithiasis Continue daptomycin, adjusted for ESRD
[2017-04-07] MEDS: INSULIN DETEMIR 100 UNITS/ML MDV SQ SCH (21:09)
[2017-04-07] MEDS: MIRTAZAPINE 15 MG TABLET (FP) PO SCH (21:09)
[2017-04-08] MEDS: INSULIN SLIDING SCALE (NOVOLOG) 1 VIAL SQ SCH ×2 (06:03→17:14)
[2017-04-08] MEDS ORDERED: SERTRALINE HCL 50 MG TABLET (FP) ONE (08:36)
[2017-04-08] MEDS ORDERED: SERTRALINE HCL 25 MG TABLET (FP) ONE (08:36)
--- NOTE | 2017-04-08 10:41 | PN ---
Progress Note (short form) - Note Progress Note: patient seen and examined today. comfortable no new issues Patient is calm and cooperative today BETTY scheduled for tomorrow Vital Signs Temp 98.8 F 04/07/17 17:00 Pulse 94 H 04/07/17 17:00 Resp 18 04/07/17 20:51 BP 130/76 04/07/17 17:00 Pulse Ox 96 04/07/17 20:51 Intake & Output 04/07/17 04/07/17 04/08/17 11:59 23:59 11:59 Intake Total 200 240 Balance 200 240 Intake: Oral 200 240 Other: Voiding Method Incontinent Incontinent # Unmeasured Voids Void 1 1 Bowel Movement Yes Yes: large Yes # Bowel Movements 1 1 Active Medications Acetaminophen (Tylenol -) 650 mg PO Q6H PRN PRN Reason: FEVER OR PAIN Calcium Acetate (Phoslo -) 1,334 mg PO TIDCM [facility] Last Admin: 04/07/17 17:32 Dose: 1,334 mg Collagenase (Santyl -) 1 applic TP DAILY [facility] Last Admin: 04/07/17 10:17 Dose: 1 applic Epoetin Neftaly (Procrit -) 20,000 unit IVPUSH ONCE ONE Stop: 04/08/17 00:02 Finasteride (Proscar -) 5 mg PO DAILY [facility] Last Admin: 04/07/17 10:15 Dose: 5 mg Furosemide (Lasix -) 80 mg PO DAILY [facility] Last Admin: 04/07/17 10:14 Dose: 80 mg Daptomycin 575 mg/ Sodium (Chloride) 100 mls @ 200 mls/hr IVPB Q48H [facility] Last Admin: 04/07/17 11:39 Dose: 200 mls/hr Gentamicin Sulfate/Sodium Chloride (Garamycin 80 Mg Premixed Ivpb -) 80 mg in 100 mls @ 100 mls/hr IVPB TuThSa [facility] Insulin Aspart (Novolog Vial Sliding Scale -) 1 vial SQ BIDAC [facility] PRN Reason: Protocol Last Admin: 04/08/17 06:03 Dose: Not Given Insulin Detemir (Levemir Vial) 5 units SQ HS [facility] Last Admin: 04/07/17 21:09 Dose: 5 units Isosorbide Dinitrate (Isordil -) 10 mg PO TIDISORDIL [facility] Last Admin: 04/07/17 17:32 Dose: 10 mg Metoprolol Succinate (Toprol Xl -) 25 mg PO BID [facility] Last Admin: 04/07/17 21:09 Dose: Not Given Mirtazapine (Remeron -) 15 mg PO HS [facility] Last Admin: 04/07/17 21:09 Dose: Not Given Ondansetron HCl (Zofran -) 4 mg PO Q8H PRN PRN Reason: NAUSEA AND/OR VOMITING Sertraline HCl 25 mg/ (Sertraline HCl 50 mg) 75 mg PO DAILY [facility] Last Admin: 04/07/17 10:15 Dose: 75 mg CBC, BMP 04/05/17 06:20 04/05/17 06:20 physical exam Constitutional: Yes: No Distress, Calm. comfortable Eyes: Yes: Conjunctiva Clear Neck: Yes: Supple/ no jvd Cardiovascular: Yes: Regular Rate and Rhythm Respiratory: Yes: CTA Bilaterally Gastrointestinal: Yes: Soft Edema: No a/p stable continue present care . abx concern of embolism and endocarditis--- in light of splenic infarct. BETTY postponed for tomorrow will follow. 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
[2017-04-08] MEDS: ISOSORBIDE DINITRATE 10 MG TABLET (FP) PO SCH ×3 (11:54→18:55)
[2017-04-08] MEDS: CALCIUM ACETATE 667 MG CAPSULE (FP) PO SCH ×3 (11:54→18:52)
[2017-04-08] MEDS: METOPROLOL SUCCINATE 25 MG TAB.SR.24H (FP) PO SCH ×2 (11:57→22:21)
[2017-04-08] MEDS: FINASTERIDE 5 MG TABLET (FP) PO SCH (11:58)
[2017-04-08] MEDS: FUROSEMIDE 40 MG TABLET (FP) PO SCH (11:58)
[2017-04-08] MEDS: SERTRALINE HCL PO SCH (12:20)
[2017-04-08] MEDS: COLLAGENASE CLOSTRIDIUM HIST. 30 GRAMS TUBE TP SCH (12:20)
--- NOTE | 2017-04-08 14:29 | PN ---
Progress Note, Physician Chief Complaint: ID Daptomycin and gent - Current Medication List Current Medications: Active Medications Acetaminophen (Tylenol -) 650 mg PO Q6H PRN PRN Reason: FEVER OR PAIN Calcium Acetate (Phoslo -) 1,334 mg PO TIDCM [facility] [place] Last Admin: 04/08/17 12:13 Dose: 1,334 mg Collagenase (Santyl -) 1 applic TP DAILY [facility] [place] Last Admin: 04/08/17 12:20 Dose: 1 applic Epoetin Neftaly (Procrit -) 20,000 unit IVPUSH ONCE ONE Stop: 04/08/17 00:02 Finasteride (Proscar -) 5 mg PO DAILY [facility] [place] Last Admin: 04/08/17 11:58 Dose: Not Given Furosemide (Lasix -) 80 mg PO DAILY [facility] [place] Last Admin: 04/08/17 11:58 Dose: Not Given Daptomycin 575 mg/ Sodium (Chloride) 100 mls @ 200 mls/hr IVPB Q48H [facility] [place] Last Admin: 04/07/17 11:39 Dose: 200 mls/hr Gentamicin Sulfate/Sodium Chloride (Garamycin 80 Mg Premixed Ivpb -) 80 mg in 100 mls @ 100 mls/hr IVPB TuTa [facility] [place] Insulin Aspart (Novolog Vial Sliding Scale -) 1 vial SQ BIDAC [facility] [place] PRN Reason: Protocol Last Admin: 04/08/17 06:03 Dose: Not Given Insulin Detemir (Levemir Vial) 5 units SQ HS [facility] [place] Last Admin: 04/07/17 21:09 Dose: 5 units Isosorbide Dinitrate (Isordil -) 10 mg PO TIDISORDIL [facility] [place] Last Admin: 04/08/17 13:07 Dose: 10 mg Metoprolol Succinate (Toprol Xl -) 25 mg PO BID [facility] [place] Last Admin: 04/08/17 11:57 Dose: Not Given Mirtazapine (Remeron -) 15 mg PO HS [facility] [place] Last Admin: 04/07/17 21:09 Dose: Not Given Ondansetron HCl (Zofran -) 4 mg PO Q8H PRN PRN Reason: NAUSEA AND/OR VOMITING Sertraline HCl 25 mg/ (Sertraline HCl 50 mg) 75 mg PO DAILY [facility] [place] Last Admin: 04/08/17 12:20 Dose: Not Given - Objective Vital Signs: Vital Signs Temperature 98.8 F 04/07/17 17:00 Pulse Rate 94 H 04/07/17 17:00 Respiratory Rate 18 04/08/17 10:00 Blood Pressure 130/76 04/07/17 17:00 O2 Sat by Pulse Oximetry (%) 96 04/08/17 10:00 Cardiovascular: Yes: Regular Rate and Rhythm, S1, S2 Respiratory: Yes: WNL, Regular, CTA Bilaterally Gastrointestinal: Yes: WNL, Normal Bowel Sounds, Soft. No: Tenderness Labs: CBC, BMP 04/05/17 06:20 04/05/17 06:20 Assessment/Plan Microbiology 04/03/17 08:30 Blood - Shiley Catheter Blood Culture - Final NO GROWTH AFTER 5 DAYS INCUBATION 04/03/17 08:30 Blood - Shiley Catheter Blood Culture - Final NO GROWTH AFTER 5 DAYS INCUBATION 04/01/17 21:50 Blood - Peripheral Venous Blood Culture - Final NO GROWTH AFTER 5 DAYS INCUBATION 04/01/17 19:45 Blood - Peripheral Venous Blood Culture - Final NO GROWTH AFTER 5 DAYS INCUBATION 03/30/17 21:55 Blood - Peripheral Venous Blood Culture - Final Vr Ec Faecium 03/30/17 21:55 Blood - Peripheral Venous Blood Culture - Final Vr Ec Faecium Laboratory Tests 04/05/17 04/05/17 06:20 06:20 WBC 9.9 Hgb 9.0 L Plt Count 206 BUN 35 H Creat Clearance w eGFR 19.47 Assessment VREF bacteremia ? splenic infarct raises possibility of endocarditis Plan 6 weeks Dapto 2 weeks gent with George Gamez MD
--- NOTE | 2017-04-08 16:48 | PN ---
Progress Note (short form) - Note Progress Note: coverage for dr alvarado chart reviewed and pt examined ESRD ON HD CHEST PAIN being eval VRE Bacteremia H/o sacral decub r/o abscess also splenic infarct aaa aneurism aicd s/p iv contrast study seen on dialysis, no complaints Current Medications Acetaminophen (Tylenol -) 650 mg PO Q6H PRN PRN Reason: FEVER OR PAIN Calcium Acetate (Phoslo -) 1,334 mg PO TIDCM [facility] Last Admin: 04/08/17 12:13 Dose: 1,334 mg Collagenase (Santyl -) 1 applic TP DAILY [facility] Last Admin: 04/08/17 12:20 Dose: 1 applic Epoetin Neftaly (Procrit -) 20,000 unit IVPUSH ONCE ONE Stop: 04/08/17 00:02 Finasteride (Proscar -) 5 mg PO DAILY [facility] Last Admin: 04/08/17 11:58 Dose: Not Given Furosemide (Lasix -) 80 mg PO DAILY [facility] Last Admin: 04/08/17 11:58 Dose: Not Given Daptomycin 575 mg/ Sodium (Chloride) 100 mls @ 200 mls/hr IVPB Q48H [facility] Last Admin: 04/07/17 11:39 Dose: 200 mls/hr Gentamicin Sulfate/Sodium Chloride (Garamycin 80 Mg Premixed Ivpb -) 80 mg in 100 mls @ 100 mls/hr IVPB TuThSa [facility] Insulin Aspart (Novolog Vial Sliding Scale -) 1 vial SQ BIDAC [facility] PRN Reason: Protocol Last Admin: 04/08/17 06:03 Dose: Not Given Insulin Detemir (Levemir Vial) 5 units SQ HS [facility] Last Admin: 04/07/17 21:09 Dose: 5 units Isosorbide Dinitrate (Isordil -) 10 mg PO TIDISORDIL [facility] Last Admin: 04/08/17 13:07 Dose: 10 mg Metoprolol Succinate (Toprol Xl -) 25 mg PO BID [facility] Last Admin: 04/08/17 11:57 Dose: Not Given Mirtazapine (Remeron -) 15 mg PO HS [facility] Last Admin: 04/07/17 21:09 Dose: Not Given Ondansetron HCl (Zofran -) 4 mg PO Q8H PRN PRN Reason: NAUSEA AND/OR VOMITING Sertraline HCl 25 mg/ (Sertraline HCl 50 mg) 75 mg PO DAILY [facility] Last Admin: 04/08/17 12:20 Dose: Not Given Last Vital Signs Temp Pulse Resp BP Pulse Ox 98.4 F 86 20 109/57 96 04/08/17 14:44 04/08/17 14:44 04/08/17 14:44 04/08/17 14:44 04/08/17 10:00 alert in nad Lungs clear Heart reg Abd soft nontender Ext no edema CBC, BMP 04/05/17 06:20 04/05/17 06:20 IMP- ESRD stable during dialysis VRE bacteremia Repeat BC no growth CT shows pleural effusion, splenic infarct, thickened urinary bladder, cholelithiasis Continue daptomycin, adjusted for ESRD
[2017-04-08] MEDS ORDERED: EPOETIN ALFA 20,000 UNIT/1 ML VIAL IVPUSH ONE (18:00)
--- NOTE | 2017-04-08 18:10 | PN ---
Progress Note (short form) - Note Progress Note: Chief Complaint: bacteremia History of Present Illness: denies sob, orthopnea, cp, palpitations, syncope ex cigs Current Medications Acetaminophen (Tylenol -) 650 mg PO Q6H PRN PRN Reason: FEVER OR PAIN Calcium Acetate (Phoslo -) 1,334 mg PO TIDCM [facility] Last Admin: 04/08/17 12:13 Dose: 1,334 mg Collagenase (Santyl -) 1 applic TP DAILY [facility] Last Admin: 04/08/17 12:20 Dose: 1 applic Finasteride (Proscar -) 5 mg PO DAILY [facility] Last Admin: 04/08/17 11:58 Dose: Not Given Furosemide (Lasix -) 80 mg PO DAILY [facility] Last Admin: 04/08/17 11:58 Dose: Not Given Daptomycin 575 mg/ Sodium (Chloride) 100 mls @ 200 mls/hr IVPB Q48H [facility] Last Admin: 04/07/17 11:39 Dose: 200 mls/hr Gentamicin Sulfate/Sodium Chloride (Garamycin 80 Mg Premixed Ivpb -) 80 mg in 100 mls @ 100 mls/hr IVPB TuThSa [facility] Insulin Aspart (Novolog Vial Sliding Scale -) 1 vial SQ BIDAC [facility] PRN Reason: Protocol Last Admin: 04/08/17 17:14 Dose: Not Given Insulin Detemir (Levemir Vial) 5 units SQ HS [facility] Last Admin: 04/07/17 21:09 Dose: 5 units Isosorbide Dinitrate (Isordil -) 10 mg PO TIDISORDIL [facility] Last Admin: 04/08/17 13:07 Dose: 10 mg Metoprolol Succinate (Toprol Xl -) 25 mg PO BID [facility] Last Admin: 04/08/17 11:57 Dose: Not Given Mirtazapine (Remeron -) 15 mg PO HS [facility] Last Admin: 04/07/17 21:09 Dose: Not Given Ondansetron HCl (Zofran -) 4 mg PO Q8H PRN PRN Reason: NAUSEA AND/OR VOMITING Sertraline HCl 25 mg/ (Sertraline HCl 50 mg) 75 mg PO DAILY [facility] Last Admin: 04/08/17 12:20 Dose: Not Given - Objective Vital Signs: Vital Signs - 24 hr 04/07/17 04/08/17 04/08/17 20:51 10:00 14:44 Temperature 98.4 F Pulse Rate 86 Respiratory 18 18 20 Rate Blood Pressure 109/57 O2 Sat by Pulse 96 96 Oximetry (%) 04/08/17 04/08/17 04/08/17 15:50 16:00 16:30 Temperature Pulse Rate 88 78 86 Respiratory 18 18 18 Rate Blood Pressure 119/77 91/51 91/54 O2 Sat by Pulse Oximetry (%) 04/08/17 04/08/17 17:00 17:30 Temperature Pulse Rate 80 86 Respiratory 18 18 Rate Blood Pressure 116/60 116/69 O2 Sat by Pulse Oximetry (%) Intake & Output 04/06/17 04/07/17 04/08/17 04/09/17 07:59 07:59 07:59 07:59 Intake Total 1270 880 240 0 Balance 1270 880 240 0 Constitutional: Yes: No Distress, Calm Eyes: No: Sclera Icterus HENT: No: Nasal Congestion Cardiovascular: Yes: Regular Rate and Rhythm, JVD, S1, S2, Other (PMI non diplaced). No: Gallop, Murmur Respiratory: Yes: CTA Bilaterally. No: Accessory Muscle Use, Rales, Wheezes Gastrointestinal: Yes: Normal Bowel Sounds, Soft. No: Tenderness Musculoskeletal: Yes: Other (No kyphosis) Extremities: No: Cold Edema: No Integumentary: No: Jaundice Neurological: Yes: Alert, Oriented (x3) Psychiatric: No: Agitated Labs: no CBC, BMP since 04/05 no tele Assessment/Plan MPI 01/28 (dipyridamole): no ST changes; inferior fixed defect (reverse distribution) thought to be 2/2 diaphragmatic attenuation. No ischemia/ infarct. Dilated left ventricle with severely reduced systolic function, global. EF 18%. Ecoh 04/04/17: sev LVE, sev decr LVEF. mod RVE, mod RV hypo. mod-severe MR ( eccentric). mod-sev TR. RVSP 40-50. no vegetation noted. Echo 04/02/2017: mod lve, sev dec lvef, 20%, global hk Echo 01/2017: 1+ concentric lvh. 1+ lve. LV fn severely reduced, global. nl rv size, mildly depressed fn. mod-sev eccentric MR. rvsp 40-50. Echo 09/2016: Sev LV dilation. Sev reduced LV function. (global). RV not well visualized. Mobile density c/w torn chordae (veg can't be excluded). Ao not well visualized. RVSP not assessed. (During hospital admit for sepsis) - NL LV function 01/2016. ECG 03/30, 03/31: NSR, ST-Ts anterolateral leads not signif changed vs prior . PVCs (ventric bigeminy on 03/31 strip) CT abdomen: splenic infarct suspected (new vs 02/28); 4.3 cm AAA. large ( partially loculated) L effusion, small R a/p: 67 y.o. male with a PMH of HTN, HL, systolic cardiomyopathy CHF, ESRD (on HD), chronic anemia, sacral debubitus ulcers, copd, and IDDM here with cp. VREF enterococcal bacteremia ([facility]-acquired): -1 BCx positive here, repeat cx's negative thus far -abx per ID -echo no vegetation seen. mod-severe MR not a new finding (present on 01/28 study as well, possibly due to torn chorda vs decomp chf) -CT scan with new splenic infarct, hence with 2 minor Hoover criteria--i.e. not c/ w possible (or definite) IE dx -no signs of acute chf here. suspect partially loculated effusions are chronic vol overload related to underlying syst dysfunction and him being at too high of a target wt with HD (given also with pulm HTN at least since 01/28). -per d/w dr bhatti, pt will receive 4-6 wks abx regardless of IE dx -Dr. Sheehan d/w'd pt re indication for BETTY--i.e. to consider valve surgery if signs of severe valve dysfunction referable to IE. he states he thinks he will probably decline surgery even if it is rec'd, but he is not certain and would like to proceed with BETTY first. (definitely at high risk for poor outcome incl if requires valve surgery for SBE, given comorbidities and poor functional status). -will plan for BETTY on 04/09 (no stigmata of acute cardiac sequelae of IE-- mitral regurg and chf is chronic here, no hemodynamic/electrical instability-- no indication for transfer to tertiary care center unless definitive dx is made) . -rec tele, however pt refusing monitor CP: -mskel features, resolved now -non-anginal sx description -trop neg x 3, ecg non-ischemic acute on chronic systolic chf, mitral regurg: - noted to have depressed EF during previous admit. cath deferred at that time due to pt admitted non-adherence pattern to meds (e.g. DAPT regimen), known significant anemia with h/o transfusions, and poor candidacy for CABG consideration given frailty, poor mobility with decubitus ulcers, etc. 01/28 stress test without ischemia, pt managed medically. - has been on metopr 50mg daily dose since at least 09/28, very unlikely low dose nitrates +/- hydral will improve EF significantly. EF remained severely depressed as of 01/28 and on echo here now. Outpt discussions for ICD given low lvef. - cont metoprolol 25 mg bid ([facility] dose). no ELIOT sec to hyperkalemia. isordil started here. bp stable, consider hydralazine - bp's running 90s-110s - CXR with mild congestion (fluid in fissure, ? right effusion), JVD elevated-- however remains comfortable with no sob--will d/w renal increasing fluid off at HD if he can tolerate this bp-taveras) - ICD discussion needs to wait until bacteremia is treated - currently no statin listed on [place] meds per ER note, total chol 88--would not start statin with cholesterol this low (and LDL 40s). Will hold aspirin for now in light of recurrent anemia requiring transfusions. - if recovers from acute illness and is willing to f/u with us, should have BETTY as outpt to quantify severity of MR (prefer to do at [place]) and consider MV repair if potentially primary MR causing LV dysfunction (torn chorda suspected on 09/28 study, though MR only mild then--has worsened as of 01/28, ? 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 sec to ckd. Trending down here. s/p transfusion here -per pmd, renal
[2017-04-08] MEDS: GENTAMICIN 80 MG PREMIXED IVPB 80 MG/100 ML BAG IVPB SCH (19:00)
[2017-04-08] MEDS: INSULIN DETEMIR 100 UNITS/ML MDV SQ SCH (22:21)
[2017-04-08] MEDS: MIRTAZAPINE 15 MG TABLET (FP) PO SCH (22:21)
[2017-04-09] MEDS: INSULIN SLIDING SCALE (NOVOLOG) 1 VIAL SQ SCH ×2 (06:50→16:29)
[2017-04-09] MEDS ORDERED: PT OWN MED DRAWER 7, Y5N ONE (10:27)
[2017-04-09] MEDS: SERTRALINE HCL PO SCH (10:30)
[2017-04-09] MEDS: FUROSEMIDE 40 MG TABLET (FP) PO SCH (10:30)
[2017-04-09] MEDS: ISOSORBIDE DINITRATE 10 MG TABLET (FP) PO SCH ×3 (10:30→17:25)
[2017-04-09] MEDS: COLLAGENASE CLOSTRIDIUM HIST. 30 GRAMS TUBE TP SCH (10:30)
[2017-04-09] MEDS: METOPROLOL SUCCINATE 25 MG TAB.SR.24H (FP) PO SCH ×2 (10:31→21:57)
[2017-04-09] MEDS: FINASTERIDE 5 MG TABLET (FP) PO SCH (10:31)
[2017-04-09] MEDS: CALCIUM ACETATE 667 MG CAPSULE (FP) PO SCH ×3 (10:31→17:25)
--- NOTE | 2017-04-09 11:22 | PN ---
Progress Note (short form) - Note Progress Note: Chief Complaint: cp History of Present Illness: no cp, palps, dizziness, sob. Current Medications Generic Name Dose Route Start Last Admin Trade Name Freq PRN Reason Stop Dose Admin Acetaminophen 650 mg 03/30/17 17:42 Tylenol - PO Q6H PRN FEVER OR PAIN Calcium Acetate 1,334 mg 03/31/17 08:00 04/09/17 10:31 Phoslo - PO 1,334 mg TIDCM [facility] Administration Collagenase 1 applic 03/31/17 10:00 04/08/17 12:20 Santyl - TP 1 applic DAILY [facility] Administration Finasteride 5 mg 03/31/17 10:00 04/09/17 10:31 Proscar - PO 5 mg DAILY [facility] Administration Furosemide 80 mg 03/31/17 10:00 04/09/17 10:30 Lasix - PO 80 mg DAILY [facility] Administration Daptomycin 575 mg/ Sodium 100 mls @ 200 mls/hr 04/07/17 10:00 04/07/17 11:39 Chloride IVPB 200 mls/hr Q48H [facility] Administration Gentamicin Sulfate/Sodium Chloride 80 mg in 100 mls @ 100 mls/hr 04/08/17 10: 00 04/08/17 19:00 Garamycin 80 Mg Premixed Ivpb - IVPB 100 mls/hr TuThSa [facility] Administration Insulin Aspart 1 vial 04/01/17 07:00 04/09/17 06:50 Novolog Vial Sliding Scale - SQ Not Given BIDAC [facility] Protocol Insulin Detemir 5 units 04/01/17 22:00 04/08/17 22:21 Levemir Vial SQ 5 units HS [facility] Administration Isosorbide Dinitrate 10 mg 03/31/17 13:00 04/09/17 10:30 Isordil - PO 10 mg TIDISORDIL [facility] Administration Metoprolol Succinate 25 mg 03/30/17 22:00 04/09/17 10:31 Toprol Xl - PO 25 mg BID [facility] Administration Mirtazapine 15 mg 03/30/17 22:00 04/08/17 22:21 Remeron - PO Not Given HS [facility] Ondansetron HCl 4 mg 03/30/17 17:42 04/09/17 01:01 Zofran - PO 4 mg Q8H PRN Administration NAUSEA AND/OR VOMITING Sertraline HCl 25 mg/ 75 mg 03/31/17 10:00 04/08/17 12:20 Sertraline HCl 50 mg PO Not Given DAILY [facility] Vital Signs Period Temp Pulse Resp BP Sys/Vogt Pulse Ox Last 24 Hr 98.2 F-98.4 F 78-97 18-20 91-122/51-77 96 Constitutional: Yes: cachectic, No Distress Eyes: No: Sclera Icterus HENT: No: Nasal Congestion Respiratory: Yes: CTA Bilaterally (decr sounds diffusely). No: Accessory Muscle Use, Rales, Wheezes Gastrointestinal: Yes: Normal Bowel Sounds. No: Distention, Hepatomegaly, Palpable Mass, Tenderness Cardiovascular: Yes: Regular Rate and Rhythm JVD: No Heart Sounds: Yes: S1, S2. No: Gallop Murmur: No: Systolic Murmur, Diastolic Murmur Extremities: No: Cold, Cyanosis Edema: No Integumentary: No: Jaundice Neurological: Yes: Alert, Oriented (x3) Psychiatric: No: Agitated - Other Data Labs, Other Data: CBC, BMP 04/05/17 06:20 04/05/17 06:20 MPI 01/28 (dipyridamole): no ST changes; inferior fixed defect (reverse distribution) thought to be 2/2 diaphragmatic attenuation. No ischemia/ infarct. Dilated left ventricle with severely reduced systolic function, global. EF 18%. Ecoh 04/04/17: sev LVE, sev decr LVEF. mod RVE, mod RV hypo. mod-severe MR ( eccentric). mod-sev TR. RVSP 40-50. no vegetation noted. Echo 04/02/2017: mod lve, sev dec lvef, 20%, global hk Echo 01/2017: 1+ concentric lvh. 1+ lve. LV fn severely reduced, global. nl rv size, mildly depressed fn. mod-sev eccentric MR. rvsp 40-50. Echo 09/2016: Sev LV dilation. Sev reduced LV function. (global). RV not well visualized. Mobile density c/w torn chordae (veg can't be excluded). Ao not well visualized. RVSP not assessed. (During hospital admit for sepsis) - NL LV function 01/2016. ECG 03/30, 03/31: NSR, ST-Ts anterolateral leads not signif changed vs prior . PVCs (ventric bigeminy on 03/31 strip) CT abdomen: splenic infarct suspected (new vs 02/28); 4.3 cm AAA. large ( partially loculated) L effusion, small R a/p: 67 y.o. male with a PMH of HTN, HL, systolic cardiomyopathy CHF, ESRD (on HD), chronic anemia, sacral debubitus ulcers, copd, and IDDM here with cp. VREF enterococcal bacteremia ([facility]-acquired): -1 BCx positive here, repeat cx's negative thus far -abx per ID -echo no vegetation seen. mod-severe MR not a new finding (present on 01/28 study as well, possibly due to torn chorda vs decomp chf) -CT scan with new splenic infarct, hence with 2 minor Hoover criteria--i.e. not c/ w possible (or definite) IE dx -no signs of acute chf here. suspect partially loculated effusions are chronic vol overload related to underlying syst dysfunction and him being at too high of a target wt with HD (given also with pulm HTN at least since 01/28). -per d/w dr bhatti, pt will receive 4-6 wks abx regardless of IE dx -Dr. Sheehan d/w'd pt re indication for BETTY--i.e. to consider valve surgery if signs of severe valve dysfunction referable to IE. he states he thinks he will probably decline surgery even if it is rec'd, but he is not certain and would like to proceed with BETTY first. (definitely at high risk for poor outcome incl if requires valve surgery for SBE, given comorbidities and poor functional status). -will plan for BETTY today 04/09 (no stigmata of acute cardiac sequelae of IE-- mitral regurg and chf is chronic here, no hemodynamic/electrical instability-- no indication for transfer to tertiary care center unless definitive dx is made) . -rec tele, however pt refusing monitor CP: -mskel features, resolved now -non-anginal sx description -trop neg x 3, ecg non-ischemic acute on chronic systolic chf, mitral regurg: - noted to have depressed EF during previous admit. cath deferred at that time due to pt admitted non-adherence pattern to meds (e.g. DAPT regimen), known significant anemia with h/o transfusions, and poor candidacy for CABG consideration given frailty, poor mobility with decubitus ulcers, etc. 01/28 stress test without ischemia, pt managed medically. - has been on metopr 50mg daily dose since at least 09/28, very unlikely low dose nitrates +/- hydral will improve EF significantly. EF remained severely depressed as of 01/28 and on echo here now. Outpt discussions for ICD given low lvef. - cont metoprolol 25 mg bid ([facility] dose). no ELIOT sec to hyperkalemia. isordil started here. bp stable, consider hydralazine - bp's running 90s-110s - CXR with mild congestion (fluid in fissure, ? right effusion), JVD elevated-- however remains comfortable with no sob--will d/w renal increasing fluid off at HD if he can tolerate this bp-taveras) - ICD discussion needs to wait until bacteremia is treated - currently no statin listed on [place] meds per ER note, total chol 88--would not start statin with cholesterol this low (and LDL 40s). Will hold aspirin for now in light of recurrent anemia requiring transfusions. - if recovers from acute illness and is willing to f/u with us, should have BETTY as outpt to quantify severity of MR (prefer to do at [place]) and consider MV repair if potentially primary MR causing LV dysfunction (torn chorda suspected on 09/28 study, though MR only mild then--has worsened as of 01/28, ? 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 sec to ckd. Trending down here. s/p transfusion here -per pmd, renal
[2017-04-09] MEDS: SODIUM CHLORIDE IVPB SCH (11:25)
[2017-04-09] MEDS: DAPTOMYCIN IVPB SCH (11:25)
--- NOTE | 2017-04-09 11:40 | PN ---
Progress Note (short form) - Note Progress Note: comfortable no new issues . mood is stable scheduled for BETTY today Vital Signs Temp 98.2 F 04/08/17 22:00 Pulse 92 H 04/09/17 06:00 Resp 20 04/09/17 06:00 BP 115/70 04/09/17 06:00 Pulse Ox 96 04/08/17 21:00 Intake & Output 04/08/17 04/08/17 04/09/17 11:59 23:59 11:59 Intake Total 610 0 Balance 610 0 Intake: scheduled for BETTY today IV 10 LAC 20 04/07/2017 10 Oral 600 0 Other: Voiding Method Incontinent Incontinent # Unmeasured Voids Void 1 2 1 Bowel Movement Yes Yes No # Bowel Movements 1 2 Active Medications Acetaminophen (Tylenol -) 650 mg PO Q6H PRN PRN Reason: FEVER OR PAIN Calcium Acetate (Phoslo -) 1,334 mg PO TIDCM [facility] Last Admin: 04/09/17 10:31 Dose: 1,334 mg Collagenase (Santyl -) 1 applic TP DAILY [facility] Last Admin: 04/09/17 10:30 Dose: 1 applic Finasteride (Proscar -) 5 mg PO DAILY [facility] Last Admin: 04/09/17 10:31 Dose: 5 mg Furosemide (Lasix -) 80 mg PO DAILY [facility] Last Admin: 04/09/17 10:30 Dose: 80 mg Daptomycin 575 mg/ Sodium (Chloride) 100 mls @ 200 mls/hr IVPB Q48H [facility] Last Admin: 04/09/17 11:25 Dose: 200 mls/hr Gentamicin Sulfate/Sodium Chloride (Garamycin 80 Mg Premixed Ivpb -) 80 mg in 100 mls @ 100 mls/hr IVPB TuThSa [facility] Last Admin: 04/08/17 19:00 Dose: 100 mls/hr Insulin Aspart (Novolog Vial Sliding Scale -) 1 vial SQ BIDAC [facility] PRN Reason: Protocol Last Admin: 04/09/17 06:50 Dose: Not Given Insulin Detemir (Levemir Vial) 5 units SQ HS [facility] Last Admin: 04/08/17 22:21 Dose: 5 units Isosorbide Dinitrate (Isordil -) 10 mg PO TIDISORDIL [facility] Last Admin: 04/09/17 10:30 Dose: 10 mg Metoprolol Succinate (Toprol Xl -) 25 mg PO BID [facility] Last Admin: 04/09/17 10:31 Dose: 25 mg Mirtazapine (Remeron -) 15 mg PO HS [facility] Last Admin: 04/08/17 22:21 Dose: Not Given Ondansetron HCl (Zofran -) 4 mg PO Q8H PRN PRN Reason: NAUSEA AND/OR VOMITING Last Admin: 04/09/17 01:01 Dose: 4 mg Sertraline HCl 25 mg/ (Sertraline HCl 50 mg) 75 mg PO DAILY [facility] Last Admin: 04/09/17 10:30 Dose: Not Given CBC, BMP 04/05/17 06:20 04/05/17 06:20 physical exam Constitutional: Yes: No Distress, Calm. comfortable. Eyes: Yes: Conjunctiva Clear Neck: Yes: Supple/ no jvd, Cardiovascular: Yes: Regular Rate and Rhythm Respiratory: Yes: CTA Bilaterally Gastrointestinal: Yes: Soft Edema: No a/p stable continue present care . abx concern of embolism and endocarditis--- in light of splenic infarct. BETTY scheduled for today will follow. 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
--- NOTE | 2017-04-09 12:21 | PN ---
Progress Note (short form) - Note Progress Note: Renal follow up for ESRD on HD Pt seen and examined at the bedside chart reviewed pt w/o any acute complaints wants to eat, currently NPO for BETTY s/p dialysis yesterday Vital Signs Temperature 98.2 F 04/08/17 22:00 Pulse Rate 92 H 04/09/17 06:00 Respiratory Rate 20 04/09/17 06:00 Blood Pressure 115/70 04/09/17 06:00 O2 Sat by Pulse Oximetry (%) 96 04/08/17 21:00 Intake & Output 04/06/17 04/07/17 04/08/17 04/09/17 23:59 23:59 23:59 23:59 Intake Total 980 440 610 0 Balance 980 440 610 0 NAD awake and alert RRR NO LE edema CBC, BMP 04/05/17 06:20 04/05/17 06:20 Current Medications Acetaminophen (Tylenol -) 650 mg PO Q6H PRN PRN Reason: FEVER OR PAIN Calcium Acetate (Phoslo -) 1,334 mg PO TIDCM [facility] Last Admin: 04/09/17 10:31 Dose: 1,334 mg Collagenase (Santyl -) 1 applic TP DAILY [facility] Last Admin: 04/09/17 10:30 Dose: 1 applic Finasteride (Proscar -) 5 mg PO DAILY [facility] Last Admin: 04/09/17 10:31 Dose: 5 mg Furosemide (Lasix -) 80 mg PO DAILY [facility] Last Admin: 04/09/17 10:30 Dose: 80 mg Daptomycin 575 mg/ Sodium (Chloride) 100 mls @ 200 mls/hr IVPB Q48H [facility] Last Admin: 04/09/17 11:25 Dose: 200 mls/hr Gentamicin Sulfate/Sodium Chloride (Garamycin 80 Mg Premixed Ivpb -) 80 mg in 100 mls @ 100 mls/hr IVPB TuThSa [facility] Last Admin: 04/08/17 19:00 Dose: 100 mls/hr Insulin Aspart (Novolog Vial Sliding Scale -) 1 vial SQ BIDAC [facility] PRN Reason: Protocol Last Admin: 04/09/17 06:50 Dose: Not Given Insulin Detemir (Levemir Vial) 5 units SQ HS [facility] Last Admin: 04/08/17 22:21 Dose: 5 units Isosorbide Dinitrate (Isordil -) 10 mg PO TIDISORDIL [facility] Last Admin: 04/09/17 10:30 Dose: 10 mg Metoprolol Succinate (Toprol Xl -) 25 mg PO BID [facility] Last Admin: 04/09/17 10:31 Dose: 25 mg Mirtazapine (Remeron -) 15 mg PO HS [facility] Last Admin: 04/08/17 22:21 Dose: Not Given Ondansetron HCl (Zofran -) 4 mg PO Q8H PRN PRN Reason: NAUSEA AND/OR VOMITING Last Admin: 04/09/17 01:01 Dose: 4 mg Sertraline HCl 25 mg/ (Sertraline HCl 50 mg) 75 mg PO DAILY [facility] Last Admin: 04/09/17 10:30 Dose: Not Given 67 year old gentleman with PMhx of ESRD on HD (TTS, non-complaint with treatment ), IDDM, Hypertension, Sacral decubitis ulcer who presented from [facility] with chest pain and found have K of 6.8. #ESRD on HD s/p dialysis yesterday next dialysis is planned for tomorrow #VRE Bacteremia Repeat cutlures w/o growth CT of Abd showed possible splenic infarction for BETTY today on Dapto and Gent as per ID #Anemia in setting of CKD Hgb stable will continue WILY wit Hd no acute indication for transfusion at this time Thank you Dominick Vanegas DO
[2017-04-09] MEDS: INSULIN DETEMIR 100 UNITS/ML MDV SQ SCH (21:57)
[2017-04-09] MEDS: MIRTAZAPINE 15 MG TABLET (FP) PO SCH (21:57)
[2017-04-10] MEDS ORDERED: EPOETIN ALFA 20,000 UNIT/1 ML VIAL IVPUSH ONE ×2 (06:00→12:45)
[2017-04-10] MEDS: INSULIN SLIDING SCALE (NOVOLOG) 1 VIAL SQ SCH ×2 (07:31→16:53)
[2017-04-10] MEDS: ISOSORBIDE DINITRATE 10 MG TABLET (FP) PO SCH ×3 (09:00→18:17)
[2017-04-10] MEDS: CALCIUM ACETATE 667 MG CAPSULE (FP) PO SCH ×3 (09:00→18:17)
[2017-04-10] MEDS ORDERED: SERTRALINE HCL 25 MG TABLET (FP) ONE (09:01)
[2017-04-10] MEDS ORDERED: SERTRALINE HCL 50 MG TABLET (FP) ONE (09:01)
[2017-04-10] MEDS: FUROSEMIDE 40 MG TABLET (FP) PO SCH (09:19)
[2017-04-10] MEDS: FINASTERIDE 5 MG TABLET (FP) PO SCH (09:19)
[2017-04-10] MEDS: SERTRALINE HCL PO SCH (09:19)
[2017-04-10] MEDS: METOPROLOL SUCCINATE 25 MG TAB.SR.24H (FP) PO SCH ×2 (09:20→22:04)
--- NOTE | 2017-04-10 11:03 | PN ---
Progress Note (short form) - Note Progress Note: Renal follow up for ESRD on HD Pt seen and examined at the bedside no acute complaints did not have BETTY yesterday b/c pt did not want to remain NPO no fever, chills, N/V for dialysis today Vital Signs Temperature 98.6 F 04/10/17 06:00 Pulse Rate 87 04/10/17 06:00 Respiratory Rate 18 04/10/17 06:00 Blood Pressure 129/70 04/10/17 06:00 O2 Sat by Pulse Oximetry (%) 95 04/09/17 21:00 Intake & Output 04/07/17 04/08/17 04/09/17 04/10/17 23:59 23:59 23:59 23:59 Intake Total 440 610 450 120 Output Total 0 Balance 440 610 450 120 NAD awake and alert RRR NO LE edema CBC, BMP 04/05/17 06:20 04/05/17 06:20 Current Medications Acetaminophen (Tylenol -) 650 mg PO Q6H PRN PRN Reason: FEVER OR PAIN Calcium Acetate (Phoslo -) 1,334 mg PO TIDCM [facility] Last Admin: 04/10/17 09:00 Dose: 1,334 mg Collagenase (Santyl -) 1 applic TP DAILY [facility] Last Admin: 04/09/17 10:30 Dose: 1 applic Epoetin Neftaly (Procrit -) 20,000 unit IVPUSH ONCE ONE Stop: 04/10/17 06:01 Finasteride (Proscar -) 5 mg PO DAILY [facility] Last Admin: 04/10/17 09:19 Dose: 5 mg Furosemide (Lasix -) 80 mg PO DAILY [facility] Last Admin: 04/10/17 09:19 Dose: 80 mg Daptomycin 575 mg/ Sodium (Chloride) 100 mls @ 200 mls/hr IVPB Q48H [facility] Last Admin: 04/09/17 11:25 Dose: 200 mls/hr Gentamicin Sulfate/Sodium Chloride (Garamycin 80 Mg Premixed Ivpb -) 80 mg in 100 mls @ 100 mls/hr IVPB TuThSa [facility] Last Admin: 04/08/17 19:00 Dose: 100 mls/hr Insulin Aspart (Novolog Vial Sliding Scale -) 1 vial SQ BIDAC [facility] PRN Reason: Protocol Last Admin: 04/10/17 07:31 Dose: Not Given Insulin Detemir (Levemir Vial) 5 units SQ HS [facility] Last Admin: 04/09/17 21:57 Dose: 5 units Isosorbide Dinitrate (Isordil -) 10 mg PO TIDISORDIL [facility] Last Admin: 04/10/17 09:00 Dose: 10 mg Metoprolol Succinate (Toprol Xl -) 25 mg PO BID [facility] Last Admin: 04/10/17 09:20 Dose: 25 mg Mirtazapine (Remeron -) 15 mg PO HS [facility] Last Admin: 04/09/17 21:57 Dose: Not Given Ondansetron HCl (Zofran -) 4 mg PO Q8H PRN PRN Reason: NAUSEA AND/OR VOMITING Last Admin: 04/09/17 01:01 Dose: 4 mg Sertraline HCl 25 mg/ (Sertraline HCl 50 mg) 75 mg PO DAILY [facility] Last Admin: 04/10/17 09:19 Dose: Not Given 67 year old gentleman with PMhx of ESRD on HD (TTS, non-complaint with treatment ), IDDM, Hypertension, Sacral decubitis ulcer who presented from [facility] with chest pain and found have K of 6.8. #ESRD on HD for dialysis today with UF as tolerated #VRE Bacteremia Repeat cutlures w/o growth CT of Abd showed possible splenic infarction pt did not do BETTY to continue Vanco and Gent with dialysis as recommended by ID #Anemia in setting of CKD Hgb stable will continue WILY wit Hd no acute indication for transfusion at this time Thank you Dominick Vanegas DO
--- NOTE | 2017-04-10 11:20 | PN ---
Progress Note (short form) - Note Progress Note: patient comfortable. Refused BETTY yesterday since he will think about it Otherwise feels well Vital Signs Temp 98.1 F 04/10/17 10:00 Pulse 91 H 04/10/17 10:00 Resp 18 04/10/17 10:00 BP 126/70 04/10/17 10:00 Pulse Ox 95 04/10/17 09:00 Intake & Output 04/09/17 04/09/17 04/10/17 11:59 23:59 11:59 Intake Total 0 450 120 Output Total 0 Balance 0 450 120 Intake: IVPB 250 Oral 0 200 120 Output: Urine 0 Void 0 Other: Voiding Method Incontinent Incontinent Incontinent # Unmeasured Voids Void 1 1 1 Bowel Movement No No CBC, BMP 04/05/17 06:20 04/05/17 06:20 physical exam Constitutional: Yes: No Distress, Calm. comfortable. Eyes: Yes: Conjunctiva Clear Neck: Yes: Supple/ no jvd, Cardiovascular: Yes: Regular Rate and Rhythm Respiratory: Yes: CTA Bilaterally Gastrointestinal: Yes: Soft Edema: No neuro--alert and awake a/p stable continue present care . abx concern of embolism and endocarditis--- in light of splenic infarct. BETTY --- patient refused Will need cardiology and ID follow up/in put Will discuss Will follow Problem List - Problems (1) Hypoglycemia Code(s): E16.2 - HYPOGLYCEMIA, UNSPECIFIED (2) Chest pain Code(s): R07.9 - CHEST PAIN, UNSPECIFIED Qualifiers: Chest pain type: unspecified Qualified Code(s): R07.9 - Chest pain, unspecified (3) Hyperkalemia Code(s): E87.5 - HYPERKALEMIA (4) Sepsis Code(s): A41.9 - SEPSIS, UNSPECIFIED ORGANISM (5) Anemia Code(s): D64.9 - ANEMIA, UNSPECIFIED Qualifiers: Anemia type: unspecified type Qualified Code(s): D64.9 - Anemia, unspecified (6) Splenic infarct Code(s): D73.5 - INFARCTION OF SPLEEN (7) AAA (abdominal aortic aneurysm) Code(s): I71.4 - ABDOMINAL AORTIC ANEURYSM, WITHOUT RUPTURE (8) Cardiomyopathy Code(s): I42.9 - CARDIOMYOPATHY, UNSPECIFIED
--- NOTE | 2017-04-10 11:33 | PN ---
Progress Note (short form) - Note Progress Note: Chief Complaint: cp History of Present Illness: no cp, palps, dizziness, sob. Current Medications Generic Name Dose Route Start Last Admin Trade Name Silver PRN Reason Stop Dose Admin Acetaminophen 650 mg 03/30/17 17:42 Tylenol - PO Q6H PRN FEVER OR PAIN Calcium Acetate 1,334 mg 03/31/17 08:00 04/10/17 09:00 Phoslo - PO 1,334 mg TIDCM [facility] Administration Collagenase 1 applic 03/31/17 10:00 04/09/17 10:30 Santyl - TP 1 applic DAILY [facility] Administration Epoetin Neftaly 20,000 unit 04/10/17 06:00 Procrit - IVPUSH 04/10/17 06:01 ONCE ONE Finasteride 5 mg 03/31/17 10:00 04/10/17 09:19 Proscar - PO 5 mg DAILY [facility] Administration Furosemide 80 mg 03/31/17 10:00 04/10/17 09:19 Lasix - PO 80 mg DAILY [facility] Administration Daptomycin 575 mg/ Sodium 100 mls @ 200 mls/hr 04/07/17 10:00 04/09/17 11:25 Chloride IVPB 200 mls/hr Q48H [facility] Administration Gentamicin Sulfate/Sodium Chloride 80 mg in 100 mls @ 100 mls/hr 04/08/17 10: 00 04/08/17 19:00 Garamycin 80 Mg Premixed Ivpb - IVPB 100 mls/hr TuThSa [facility] Administration Insulin Aspart 1 vial 04/01/17 07:00 04/10/17 07:31 Novolog Vial Sliding Scale - SQ Not Given BIDAC [facility] Protocol Insulin Detemir 5 units 04/01/17 22:00 04/09/17 21:57 Levemir Vial SQ 5 units HS [facility] Administration Isosorbide Dinitrate 10 mg 03/31/17 13:00 04/10/17 09:00 Isordil - PO 10 mg TIDISORDIL [facility] Administration Metoprolol Succinate 25 mg 03/30/17 22:00 04/10/17 09:20 Toprol Xl - PO 25 mg BID [facility] Administration Mirtazapine 15 mg 03/30/17 22:00 04/09/17 21:57 Remeron - PO Not Given HS [facility] Ondansetron HCl 4 mg 03/30/17 17:42 04/09/17 01:01 Zofran - PO 4 mg Q8H PRN Administration NAUSEA AND/OR VOMITING Sertraline HCl 25 mg/ 75 mg 03/31/17 10:00 04/10/17 09:19 Sertraline HCl 50 mg PO Not Given DAILY [facility] Vital Signs Period Temp Pulse Resp BP Sys/Vogt Pulse Ox Last 24 Hr 97.7 F-98.6 F 80-91 18-20 109-129/66-72 95-95 Constitutional: Yes: cachectic, No Distress Eyes: No: Sclera Icterus HENT: No: Nasal Congestion Respiratory: Yes: CTA Bilaterally (decr sounds diffusely). No: Accessory Muscle Use, Rales, Wheezes Gastrointestinal: Yes: Normal Bowel Sounds. No: Distention, Hepatomegaly, Palpable Mass, Tenderness Cardiovascular: Yes: Regular Rate and Rhythm JVD: No Heart Sounds: Yes: S1, S2. No: Gallop Murmur: No: Systolic Murmur, Diastolic Murmur Extremities: No: Cold, Cyanosis Edema: No Integumentary: No: Jaundice Neurological: Yes: Alert, Oriented (x3) Psychiatric: No: Agitated - Other Data Labs, Other Data: CBC, BMP 04/05/17 06:20 04/05/17 06:20 MPI 01/28 (dipyridamole): no ST changes; inferior fixed defect (reverse distribution) thought to be 2/2 diaphragmatic attenuation. No ischemia/ infarct. Dilated left ventricle with severely reduced systolic function, global. EF 18%. Echo 04/04/17: sev LVE, sev decr LVEF. mod RVE, mod RV hypo. mod-severe MR ( eccentric). mod-sev TR. RVSP 40-50. no vegetation noted. Echo 04/02/2017: mod lve, sev dec lvef, 20%, global hk Echo 01/2017: 1+ concentric lvh. 1+ lve. LV fn severely reduced, global. nl rv size, mildly depressed fn. mod-sev eccentric MR. rvsp 40-50. Echo 09/2016: Sev LV dilation. Sev reduced LV function. (global). RV not well visualized. Mobile density c/w torn chordae (veg can't be excluded). Ao not well visualized. RVSP not assessed. (During hospital admit for sepsis) - NL LV function 01/2016. ECG 03/30, 03/31: NSR, ST-Ts anterolateral leads not signif changed vs prior . PVCs (ventric bigeminy on 03/31 strip) CT abdomen: splenic infarct suspected (new vs 02/28); 4.3 cm AAA. large ( partially loculated) L effusion, small R a/p: 67 y.o. male with a PMH of HTN, HL, systolic cardiomyopathy CHF, ESRD (on HD), chronic anemia, sacral debubitus ulcers, copd, and IDDM here with cp. VREF enterococcal bacteremia (NH-acquired): -1 BCx positive here, repeat cx's negative thus far -abx per ID -echo no vegetation seen. mod-severe MR not a new finding (present on 01/28 study as well, possibly due to torn chorda vs decomp chf) -CT scan with new splenic infarct, hence with 2 minor Hoover criteria--i.e. not c/ w possible (or definite) IE dx -no signs of acute chf here. suspect partially loculated effusions are chronic vol overload related to underlying syst dysfunction and him being at too high of a target wt with HD (given also with pulm HTN at least since 01/28). -per d/w dr bhatti, pt will receive 4-6 wks abx regardless of IE dx -Dr. Sheehan d/w'd pt re indication for BETTY--i.e. to consider valve surgery if signs of severe valve dysfunction referable to IE-->BETTY planned for 04/09 but pt refused. Now says he doesn't want it and would not be interested in surgery even if it is rec'd (definitely at high risk for poor outcome incl if requires valve surgery for SBE, given comorbidities and poor functional status). -cont abx per ID CP: -mskel features, resolved now -non-anginal sx description -trop neg x 3, ecg non-ischemic acute on chronic systolic chf, mitral regurg: - noted to have depressed EF during previous admit. cath deferred at that time due to pt admitted non-adherence pattern to meds (e.g. DAPT regimen), known significant anemia with h/o transfusions, and poor candidacy for CABG consideration given frailty, poor mobility with decubitus ulcers, etc. 10/17 stress test without ischemia, pt managed medically. - has been on metopr 50mg daily dose since at least 09/28, very unlikely low dose nitrates +/- hydral will improve EF significantly. EF remained severely depressed as of 01/28 and on echo here now. Outpt discussions for ICD given low lvef. - cont metoprolol 25 mg bid (NH dose). no ELIOT sec to hyperkalemia. isordil started here. bp stable, consider hydralazine - bp's running 90s-110s - CXR with mild congestion (fluid in fissure, ? right effusion), JVD elevated-- however remains comfortable with no sob--will d/w renal increasing fluid off at HD if he can tolerate this bp-taveras) - ICD discussion needs to wait until bacteremia is treated, although pt likely will decline - currently no statin listed on [place] meds per ER note, total chol 88--would not start statin with cholesterol this low (and LDL 40s). Will hold aspirin for now in light of recurrent anemia requiring transfusions. - if recovers from acute illness and is willing to f/u with us, should have BETTY as outpt to quantify severity of MR (prefer to do at [place]) and consider MV repair if potentially primary MR causing LV dysfunction (torn chorda suspected on 09/28 study, though MR only mild then--has worsened as of 01/28, ? 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 sec to ckd. Trending down here. s/p transfusion here -per pmd, renal
[2017-04-10 13:35] LABS: HEMATOCRIT 28.9 % (35.4-49); HEMOGLOBIN 8.9 GM/dL (11.7-16.9); MCH 28.2 pg (25.7-33.7); MCHC 30.8 g/dl (32.0-35.9); MEAN CELL VOLUME 91.7 fl (80-96); MEAN PLT VOLUME 7.6 fl (7.5-11.1); PLATELET COUNT 191 K/MM3 (134-434); RBC 3.15 M/mm3 (4.00-5.60)
[2017-04-10 13:59] LABS: ANION GAP 11 (8-16); BLOOD UREA NITROGEN 48 mg/dL (7-18); CALCIUM 7.7 mg/dL (8.5-10.1); CHLORIDE 98 mmol/L (98-107); CO2 27 mmol/L (21-32); CREATININE 3.6 mg/dL (0.7-1.3); GLUCOSE,RANDOM 218 mg/dL (74-106); MAGNESIUM 1.8 mg/dL (1.8-2.4); PHOSPHOROUS 2.3 mg/dL (2.5-4.9); POTASSIUM 4.2 mmol/L (3.5-5.1); SODIUM 136 mmol/L (136-145)
--- NOTE | 2017-04-10 14:15 | PN ---
Progress Note (short form) - Note Progress Note: awaiting SATISH- ate yesterday so procedure was cancelled now on HD Vital Signs Period Temp Pulse Resp BP Sys/Vogt Pulse Ox Last 24 Hr 97.7 F-98.6 F 80-94 16-20 95-129/59-72 95-95 cor-rrr llungs decreased bs at bases abd soft,nt ext no edema CBC, BMP 04/10/17 13:20 04/10/17 13:20 Microbiology 04/03/17 08:30 Blood - Shiley Catheter Blood Culture - Final NO GROWTH AFTER 5 DAYS INCUBATION 04/03/17 08:30 Blood - Shiley Catheter Blood Culture - Final NO GROWTH AFTER 5 DAYS INCUBATION 04/01/17 21:50 Blood - Peripheral Venous Blood Culture - Final NO GROWTH AFTER 5 DAYS INCUBATION 04/01/17 19:45 Blood - Peripheral Venous Blood Culture - Final NO GROWTH AFTER 5 DAYS INCUBATION 03/30/17 21:55 Blood - Peripheral Venous Blood Culture - Final Vr Ec Faecium 03/30/17 21:55 Blood - Peripheral Venous Blood Culture - Final Vr Ec Faecium Active Medications Acetaminophen (Tylenol -) 650 mg PO Q6H PRN PRN Reason: FEVER OR PAIN Calcium Acetate (Phoslo -) 1,334 mg PO TIDCM [facility] Last Admin: 04/10/17 12:09 Dose: Not Given Collagenase (Santyl -) 1 applic TP DAILY [facility] Last Admin: 04/09/17 10:30 Dose: 1 applic Finasteride (Proscar -) 5 mg PO DAILY [facility] Last Admin: 04/10/17 09:19 Dose: 5 mg Furosemide (Lasix -) 80 mg PO DAILY [facility] Last Admin: 04/10/17 09:19 Dose: 80 mg Daptomycin 575 mg/ Sodium (Chloride) 100 mls @ 200 mls/hr IVPB Q48H [facility] Last Admin: 04/09/17 11:25 Dose: 200 mls/hr Gentamicin Sulfate/Sodium Chloride (Garamycin 80 Mg Premixed Ivpb -) 80 mg in 100 mls @ 100 mls/hr IVPB TuThSa [facility] Last Admin: 04/08/17 19:00 Dose: 100 mls/hr Insulin Aspart (Novolog Vial Sliding Scale -) 1 vial SQ BIDAC [facility] PRN Reason: Protocol Last Admin: 04/10/17 07:31 Dose: Not Given Insulin Detemir (Levemir Vial) 5 units SQ HS [facility] Last Admin: 04/09/17 21:57 Dose: 5 units Isosorbide Dinitrate (Isordil -) 10 mg PO TIDISORDIL [facility] Last Admin: 04/10/17 13:44 Dose: Not Given Metoprolol Succinate (Toprol Xl -) 25 mg PO BID [facility] Last Admin: 04/10/17 09:20 Dose: 25 mg Mirtazapine (Remeron -) 15 mg PO HS [facility] Last Admin: 04/09/17 21:57 Dose: Not Given Ondansetron HCl (Zofran -) 4 mg PO Q8H PRN PRN Reason: NAUSEA AND/OR VOMITING Last Admin: 04/09/17 01:01 Dose: 4 mg Sertraline HCl 25 mg/ (Sertraline HCl 50 mg) 75 mg PO DAILY [facility] Last Admin: 04/10/17 09:19 Dose: Not Given a/p enterococcal bacteremia- VREF! with splenic infarct plan total 6 weeks daptomycin with HD and 2 weeks gentamicin with HD esrd/hd Satish per cardiology please call back if needed
[2017-04-10] MEDS ORDERED: PT OWN MED DRAWER 7, Y5N ONE (15:15)
[2017-04-10] MEDS ORDERED: SODIUM CHLORIDE IVPB ONE (16:00)
[2017-04-10] MEDS ORDERED: DAPTOMYCIN IVPB ONE (16:00)
[2017-04-10] MEDS: GENTAMICIN 80 MG PREMIXED IVPB 80 MG/100 ML BAG IVPB SCH (16:41)
[2017-04-10] MEDS: COLLAGENASE CLOSTRIDIUM HIST. 30 GRAMS TUBE TP SCH (18:17)
[2017-04-10] MEDS: MIRTAZAPINE 15 MG TABLET (FP) PO SCH (21:54)
[2017-04-10] MEDS: INSULIN DETEMIR 100 UNITS/ML MDV SQ SCH (22:04)
[2017-04-11] MEDS: INSULIN SLIDING SCALE (NOVOLOG) 1 VIAL SQ SCH ×2 (06:23→17:26)
[2017-04-11] MEDS ORDERED: SERTRALINE HCL 25 MG TABLET (FP) ONE (09:34)
[2017-04-11] MEDS ORDERED: SERTRALINE HCL 50 MG TABLET (FP) ONE (09:34)
[2017-04-11] MEDS ORDERED: PT OWN MED DRAWER 7, Y5N ONE ×2 (09:36→10:41)
[2017-04-11] MEDS: CALCIUM ACETATE 667 MG CAPSULE (FP) PO SCH (09:40)
[2017-04-11] MEDS: ISOSORBIDE DINITRATE 10 MG TABLET (FP) PO SCH ×3 (09:41→17:27)
[2017-04-11] MEDS: METOPROLOL SUCCINATE 25 MG TAB.SR.24H (FP) PO SCH (09:41)
[2017-04-11] MEDS: FUROSEMIDE 40 MG TABLET (FP) PO SCH (09:41)
[2017-04-11] MEDS: SERTRALINE HCL PO SCH (09:42)
[2017-04-11] MEDS: FINASTERIDE 5 MG TABLET (FP) PO SCH (09:42)
--- NOTE | 2017-04-11 10:53 | DS ---
Physical Examination Vital Signs: Vital Signs Temperature 97.6 F 04/10/17 21:00 Pulse Rate 76 04/10/17 21:00 Respiratory Rate 18 04/10/17 21:00 Blood Pressure 119/66 04/10/17 21:00 O2 Sat by Pulse Oximetry (%) 98 04/10/17 21:00 Findings/Remarks: comfortable No complaints Patient has refused BETTY Denies chest pain or shortness of breath Constitutional: Yes: No Distress, Calm Eyes: Yes: Conjunctiva Clear Neck: Yes: Supple Cardiovascular: Yes: Regular Rate and Rhythm Respiratory: Yes: CTA Bilaterally Gastrointestinal: Yes: Normal Bowel Sounds, Soft Edema: No Integumentary: Yes: Pressure Ulcer Labs: CBC, BMP 04/10/17 13:20 04/10/17 13:20 Discharge Summary Reason For Visit: HYPERKALEMIA, CP Current Active Problems AAA (abdominal aortic aneurysm) (Acute) Bacteremia due to Enterococcus (Acute) Cardiomyopathy (Acute) Chest pain (Acute) Hyperkalemia (Acute) Hypoglycemia (Acute) Sacral pressure ulcer (Acute) Sepsis (Acute) Splenic infarct (Acute) Hospital Course: Patient is a 67 year old male (currently resides at the [facility]) with a significant past medical history of hypertension, MS, CHF, COPD, diabetes, sacral decubitus ulcers, end-stage renal disease on dialysis, (last dialysis was on 03/29/2017 at the [facility]) and UTI. He presents to the ED c/o of chest pain. On admission patient reports substernal, not radiating chest pain that started earlier today. Feels like pressure, comes and goes, lasts for seconds each time , worse with deep inspiration only. Also reports nausea. On exam, denies any further chest pain or shortness of breath, denies any nausea. Asking to go home. Hyperkalemia of 6.8 noted on admission, as per ED physician, renal will see patient today for emergent HD. It was reported that patient was noncompliant with HD yesterday and did not complete full treatment. He has a right shiley catheter for dialysis, has new AV fistula with intact abdias on right upper arm. ER course was notable for: (1) WBC 13.4 (2) hmg 8.1/26 (3) K. 6.8 (4) NA 133 (5) Bun 42/4.8 (6) right shiley catheter, upper right arm fistula with intact abdias (7) chronic pressure ulcers of sacrum MS was ruled out Workup revealed--- patient has VRE bacteremia treated with antibiotics ID and cardiology followed Patient refused BETTY Need long-term antibiotics Discussed with ID Daptomycin for 6 weeks and gentamicin for 2 weeks Repeat cultures are negative Stable for discharge back to assisted Discussed with nursing staff. Medications reconciled Patient also in agreement Discharge time--- 30 minutes in documenting examining as well as coordinating care Condition: Fair - Instructions Referrals: Joy Turk MD [Primary Care Provider] - Disposition: LONG TERM FACILITY - Home Medications Comprehensive Discharge Medication List: Ambulatory Orders Acetaminophen [Tylenol] 650 mg PO Q6H PRN 03/30/17 Albuterol 0.083% Nebulizer Myrna [Ventolin 0.083% Nebulizer Soln -] 1 neb NEB Q6H 03/30/17 Calcium Acetate 2 cap PO TID 03/30/17 Collagenase Clostridium Hist. [Santyl -] 1 applic TP DAILY 03/30/17 Finasteride [Proscar] 5 mg PO DAILY 03/30/17 Furosemide [Lasix] 80 mg PO DAILY 03/30/17 Metoprolol Succinate [Toprol XL -] 25 mg PO BID 03/30/17 Mirtazapine [Remeron -] 15 mg PO HS 03/30/17 Ondansetron HCl [Zofran] 4 mg PO Q8H PRN 03/30/17 Sertraline HCl [Zoloft -] 75 mg PO DAILY 03/30/17 Vit A/Vitamin D3/E/Aloe V/Zinc [Periguard Ointment] 0 gm TP ASDIR 03/30/17 Vitamin B Comp W-C [Nephro-Rebecca -] 1 tablet PO DAILY 03/30/17 Daptomycin [Cubicin (Restricted To Id) -] 575 mg IVPB Q48H #1 vial 04/11/17 Gentamicin 80 mg Premixed Ivpb [Garamycin 80 mg Premixed Ivpb -] 80 mg IVPB ONCE #1 bag 04/11/17 Insulin (Levemir) [Levemir Vial] 5 units SQ HS ml 04/11/17 Insulin Sliding Scale [Novolog Vial Sliding Scale -] 1 vial SQ BIDAC units
[2017-04-11] MEDS: SODIUM CHLORIDE IVPB SCH ×2 (11:02→12:03)
[2017-04-11] MEDS: DAPTOMYCIN IVPB SCH ×2 (11:02→12:03)
--- NOTE | 2017-04-11 11:43 | PN ---
Progress Note (short form) - Note Progress Note: Renal follow up for ESRD on HD Pt seen and examined at the bedside no acute complaints denies any pain, sob, fever, N/V/D Vital Signs Temperature 97.6 F 04/10/17 21:00 Pulse Rate 76 04/10/17 21:00 Respiratory Rate 18 04/10/17 21:00 Blood Pressure 119/66 04/10/17 21:00 O2 Sat by Pulse Oximetry (%) 98 04/10/17 21:00 Intake & Output 04/08/17 04/09/17 04/10/17 04/11/17 23:59 23:59 23:59 23:59 Intake Total 610 450 660 Output Total 0 Balance 610 450 660 NAD awake and alert RRR NO LE edema CBC, BMP 04/10/17 13:20 04/10/17 13:20 Current Medications Acetaminophen (Tylenol -) 650 mg PO Q6H PRN PRN Reason: FEVER OR PAIN Collagenase (Santyl -) 1 applic TP DAILY [facility] Last Admin: 04/10/17 18:17 Dose: 1 applic Finasteride (Proscar -) 5 mg PO DAILY [facility] Last Admin: 04/11/17 09:42 Dose: 5 mg Furosemide (Lasix -) 80 mg PO DAILY [facility] Last Admin: 04/11/17 09:41 Dose: 80 mg Gentamicin Sulfate/Sodium Chloride (Garamycin 80 Mg Premixed Ivpb -) 80 mg in 100 mls @ 100 mls/hr IVPB TuThSa [facility] Last Admin: 04/10/17 16:41 Dose: 100 mls/hr Daptomycin 575 mg/ Sodium (Chloride) 50 mls @ 50 mls/hr IVPB Q48H [facility]OS[facility] PRN Reason: Protocol Insulin Aspart (Novolog Vial Sliding Scale -) 1 vial SQ BIDAC [facility] PRN Reason: Protocol Last Admin: 04/11/17 06:23 Dose: 2 unit Insulin Detemir (Levemir Vial) 5 units SQ HS [facility] Last Admin: 04/10/17 22:04 Dose: 5 units Isosorbide Dinitrate (Isordil -) 10 mg PO TIDISORDIL [facility] Last Admin: 04/11/17 09:41 Dose: Not Given Metoprolol Succinate (Toprol Xl -) 25 mg PO BID [facility] Last Admin: 04/11/17 09:41 Dose: 25 mg Mirtazapine (Remeron -) 15 mg PO HS [facility] Last Admin: 04/10/17 21:54 Dose: Not Given Ondansetron HCl (Zofran -) 4 mg PO Q8H PRN PRN Reason: NAUSEA AND/OR VOMITING Last Admin: 04/09/17 01:01 Dose: 4 mg Sertraline HCl 25 mg/ (Sertraline HCl 50 mg) 75 mg PO DAILY [facility] Last Admin: 04/11/17 09:42 Dose: Not Given 67 year old gentleman with PMhx of ESRD on HD (TTS, non-complaint with treatment ), IDDM, Hypertension, Sacral decubitis ulcer who presented from [facility] with chest pain and found have K of 6.8. #ESRD on HD s/p dialysis yesterday, no acute indication for treatment today to resume dialysis as outpatient tomorrow #VRE Bacteremia Repeat cutlures w/o growth CT of Abd showed possible splenic infarction to get Daptomycin for total of 6 weeks and Gent x 2 weeks with dialysis #Anemia in setting of CKD continue WILY with HD Thank you Dominick Vanegas DO
--- NOTE | 2017-04-11 12:23 | PN ---
Progress Note (short form) - Note Progress Note: Chief Complaint: cp History of Present Illness: no cp, palps, dizziness, sob. Current Medications Generic Name Dose Route Start Last Admin Trade Name Freq PRN Reason Stop Dose Admin Acetaminophen 650 mg 03/30/17 17:42 Tylenol - PO Q6H PRN FEVER OR PAIN Collagenase 1 applic 03/31/17 10:00 04/10/17 18:17 Santyl - TP 1 applic DAILY AKOSUA Administration Finasteride 5 mg 03/31/17 10:00 04/11/17 09:42 Proscar - PO 5 mg DAILY AKOSUA Administration Furosemide 80 mg 03/31/17 10:00 04/11/17 09:41 Lasix - PO 80 mg DAILY AKOSUA Administration Gentamicin Sulfate/Sodium Chloride 80 mg in 100 mls @ 100 mls/hr 04/08/17 10: 00 04/10/17 16:41 Garamycin 80 Mg Premixed Ivpb - IVPB 100 mls/hr TuThSa AKOSUA Administration Daptomycin 575 mg/ Sodium 100 mls @ 200 mls/hr 04/12/17 11:15 Chloride IVPB Q48H AKOSUA Protocol Insulin Aspart 1 vial 04/01/17 07:00 04/11/17 06:23 Novolog Vial Sliding Scale - SQ 2 unit BIDAC AKOSUA Administration Protocol Insulin Detemir 5 units 04/01/17 22:00 04/10/17 22:04 Levemir Vial SQ 5 units HS AKOSUA Administration Isosorbide Dinitrate 10 mg 03/31/17 13:00 04/11/17 09:41 Isordil - PO Not Given TIDISORDIL AKOSUA Metoprolol Succinate 25 mg 03/30/17 22:00 04/11/17 09:41 Toprol Xl - PO 25 mg BID AKOSUA Administration Mirtazapine 15 mg 03/30/17 22:00 04/10/17 21:54 Remeron - PO Not Given HS AKOSUA Ondansetron HCl 4 mg 03/30/17 17:42 04/09/17 01:01 Zofran - PO 4 mg Q8H PRN Administration NAUSEA AND/OR VOMITING Sertraline HCl 25 mg/ 75 mg 03/31/17 10:00 04/11/17 09:42 Sertraline HCl 50 mg PO Not Given DAILY AKOS[facility] Vital Signs Period Temp Pulse Resp BP Sys/Vogt Pulse Ox Last 24 Hr 97.6 F 76-94 16-18 88-119/24-77 98 Constitutional: Yes: cachectic, No Distress Eyes: No: Sclera Icterus HENT: No: Nasal Congestion Respiratory: Yes: CTA Bilaterally (decr sounds diffusely). No: Accessory Muscle Use, Rales, Wheezes Gastrointestinal: Yes: Normal Bowel Sounds. No: Distention, Hepatomegaly, Palpable Mass, Tenderness Cardiovascular: Yes: Regular Rate and Rhythm JVD: No Heart Sounds: Yes: S1, S2. No: Gallop Murmur: No: Systolic Murmur, Diastolic Murmur Extremities: No: Cold, Cyanosis Edema: No Integumentary: No: Jaundice Neurological: Yes: Alert, Oriented (x3) Psychiatric: No: Agitated - Other Data Labs, Other Data: CBC, BMP 04/10/17 13:20 04/10/17 13:20 MPI 01/28 (dipyridamole): no ST changes; inferior fixed defect (reverse distribution) thought to be 2/2 diaphragmatic attenuation. No ischemia/ infarct. Dilated left ventricle with severely reduced systolic function, global. EF 18%. Echo 04/04/17: sev LVE, sev decr LVEF. mod RVE, mod RV hypo. mod-severe MR ( eccentric). mod-sev TR. RVSP 40-50. no vegetation noted. Echo 04/02/2017: mod lve, sev dec lvef, 20%, global hk Echo 01/2017: 1+ concentric lvh. 1+ lve. LV fn severely reduced, global. nl rv size, mildly depressed fn. mod-sev eccentric MR. rvsp 40-50. Echo 09/2016: Sev LV dilation. Sev reduced LV function. (global). RV not well visualized. Mobile density c/w torn chordae (veg can't be excluded). Ao not well visualized. RVSP not assessed. (During hospital admit for sepsis) - NL LV function 01/2016. ECG 03/30, 03/31: NSR, ST-Ts anterolateral leads not signif changed vs prior . PVCs (ventric bigeminy on 03/31 strip) CT abdomen: splenic infarct suspected (new vs 02/28); 4.3 cm AAA. large ( partially loculated) L effusion, small R a/p: 67 y.o. male with a PMH of HTN, HL, systolic cardiomyopathy CHF, ESRD (on HD), chronic anemia, sacral debubitus ulcers, copd, and IDDM here with cp. VREF enterococcal bacteremia (NH-acquired): -1 BCx positive here, repeat cx's negative thus far -abx per ID -echo no vegetation seen. mod-severe MR not a new finding (present on 01/28 study as well, possibly due to torn chorda vs decomp chf) -CT scan with new splenic infarct, hence with 2 minor Hoover criteria--i.e. not c/ w possible (or definite) IE dx -no signs of acute chf here. suspect partially loculated effusions are chronic vol overload related to underlying syst dysfunction and him being at too high of a target wt with HD (given also with pulm HTN at least since 01/28). -per d/w dr bhatti, pt will receive 4-6 wks abx regardless of IE dx -Dr. Sheehan d/w'd pt re indication for BETTY--i.e. to consider valve surgery if signs of severe valve dysfunction referable to IE-->BETTY planned for 04/09 but pt refused. Now says he doesn't want it and would not be interested in surgery even if it is rec'd (definitely at high risk for poor outcome incl if requires valve surgery for SBE, given comorbidities and poor functional status). -cont abx per ID CP: -mskel features, resolved now -non-anginal sx description -trop neg x 3, ecg non-ischemic acute on chronic systolic chf, mitral regurg: - noted to have depressed EF during previous admit. cath deferred at that time due to pt admitted non-adherence pattern to meds (e.g. DAPT regimen), known significant anemia with h/o transfusions, and poor candidacy for CABG consideration given frailty, poor mobility with decubitus ulcers, etc. 01/28 stress test without ischemia, pt managed medically. - has been on metopr 50mg daily dose since at least 09/28, very unlikely low dose nitrates +/- hydral will improve EF significantly. EF remained severely depressed as of 01/28 and on echo here now. Outpt discussions for ICD given low lvef. - cont metoprolol 25 mg bid (NH dose). no ELIOT sec to hyperkalemia. isordil started here. bp stable, consider hydralazine - bp's running 90s-110s - CXR with mild congestion (fluid in fissure, ? right effusion), JVD elevated-- however remains comfortable with no sob--will d/w renal increasing fluid off at HD if he can tolerate this bp-taveras) - ICD discussion needs to wait until bacteremia is treated, although pt likely will decline - currently no statin listed on NH meds per ER note, total chol 88--would not start statin with cholesterol this low (and LDL 40s). Will hold aspirin for now in light of recurrent anemia requiring transfusions. - if recovers from acute illness and is willing to f/u with us, should have BETTY as outpt to quantify severity of MR (prefer to do at [facility]) and consider MV repair if potentially primary MR causing LV dysfunction (torn chorda suspected on 09/28 study, though MR only mild then--has worsened as of 01/28, ? 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
[2017-04-11] MEDS ORDERED: INSULIN (NOVOLOG) ASPART 100 UNITS/ML 10ML VIAL ONE (17:19)
[2017-04-11] MEDS: COLLAGENASE CLOSTRIDIUM HIST. 30 GRAMS TUBE TP SCH (17:27)
[2017-04-11 18:28] VITALS: BP 126/66; PULSE 86; TEMP 98.2
[2017-04-12] MEDS ORDERED: SODIUM CHLORIDE IVPB SCH (11:15)
[2017-04-12] MEDS ORDERED: DAPTOMYCIN IVPB SCH (11:15)
== END 2017-04-11 18:40 | DRG 871 ==
LOC: JER 15:06 → JERBED 17:27 → J4S 21:02
PROVIDERS: ADMIT Internal Medicine; ATTEND Internal Medicine
PROC: 5A1D70Z Performance of Urinary Filtration, Intermittent, Less than 6 Hours Per Day (ICD-10-PCS; principal; 2017-03-30)
DX: A41.9 Sepsis, unspecified organism (principal); N18.6 End stage renal disease; L89.154 Pressure ulcer of sacral region, stage 4; I13.2 Hypertensive heart and chronic kidney disease with heart failure and with stage 5 chronic kidney disease, or end stage renal disease; I50.22 Chronic systolic (congestive) heart failure; I42.8 Other cardiomyopathies; R64 Cachexia; E87.5 Hyperkalemia; R07.89 Other chest pain; I71.4 Abdominal aortic aneurysm, without rupture; D63.1 Anemia in chronic kidney disease; Z91.15 Patient's noncompliance with renal dialysis; B95.2 Enterococcus as the cause of diseases classified elsewhere; D73.5 Infarction of spleen; Z79.4 Long term (current) use of insulin; N40.0 Benign prostatic hyperplasia without lower urinary tract symptoms; I25.2 Old myocardial infarction; J44.9 Chronic obstructive pulmonary disease, unspecified; E11.22 Type 2 diabetes mellitus with diabetic chronic kidney disease; E11.649 Type 2 diabetes mellitus with hypoglycemia without coma; G62.9 Polyneuropathy, unspecified; Z87.891 Personal history of nicotine dependence; D64.9 Anemia, unspecified; Z68.29 Body mass index [BMI] 29.0-29.9, adult; I34.0 Nonrheumatic mitral (valve) insufficiency; I27.20 Pulmonary hypertension, unspecified; Z53.29 Procedure and treatment not carried out because of patient's decision for other reasons
CPT/HCPCS: 36415; 36430; 36511; 71010-TC; 74177-TC; 80048; 80053; 80061; 82272; 82550; 83721; 83735; 83880; 84100; 84484; 85025; 85027; 85651; 86140; 86704; 86706; 86708; 86803; 86850; 86900; 86901; 86922; 87040; 87186; 87340; 93005; 93010; 93306-TC; 99285-25; G0480; J0878; J0885; J1644; P9038; P9058

== ENCOUNTER 2017-04-21 00:02 | Inpatient (IN) | payer OTHER ==
[2017-04-21 00:49] LABS: VENOUS PH 7.43 (7.32-7.42)
[2017-04-21 00:50] LABS: VENOUS PC02 34.6 mmHg (38-52); VENOUS PO2 55.7 mmHg (28-48)
[2017-04-21 00:52] LABS: BASO % 0.7 % (0-2.0); EOS % 0.4 % (0-4.5); HEMATOCRIT 31.4 % (35.4-49); HEMOGLOBIN 9.7 GM/dL (11.7-16.9); LYMPH % 13.8 % (8-40); MCH 28.4 pg (25.7-33.7); MEAN CELL VOLUME 91.5 fl (80-96); MEAN PLT VOLUME 7.6 fl (7.5-11.1); MONO % 4.4 % (3.8-10.2); NEUT % 80.7 % (42.8-82.8); PLATELET COUNT 223 K/MM3 (134-434); RBC 3.43 M/mm3 (4.00-5.60); WHITE BLOOD COUNT 9.8 K/mm3 (4.0-10.0)
--- NOTE | 2017-04-21 00:55 | PDOC ---
History of Present Illness - History of Present Illness Initial Comments: 04/21/17 01:11 The patient is a 67 year old male, with a significant past medical history of 67 y M hx ESRD (,,), CHF, on O2, COPD, HTN, MO, IDDM, who was BIBA from [facility] to the emergency department with SOB r/o pneumonia. Patient states he has been experiencing SOB since yesterday. He was last dialyzed on 04/17/17, missed dialysis on 04/19/17. He denies any recent fevers, chills, headache or dizziness. He denies any recent nausea, vomit, diarrhea or constipation. He denies any recent chest pain. He denies any recent dysuria, frequency, urgency or hematuria. Allergies: NKA Past surgical history:Triple A, Cardiomyopathy. Primary Care Physician: Joy Turk <Riya Newton - Last Filed: 04/21/17 01:11> <Tyra Gould - Last Filed: 04/21/17 23:45> - General Chief Complaint: Shortness of Breath Stated Complaint: SHORTNESS OF BREATH,R/O PNEUMONIA Time Seen by Provider: 04/21/17 00:15 Past History <Riya Newton - Last Filed: 04/21/17 01:11> - Past Medical History Anemia: Yes Asthma: Yes Cancer: No Cardiac Disorders: Yes (MO January 2016) CVA: No COPD: Yes CHF: Yes Dementia: No Diabetes: Yes Dialysis: Yes GI Disorders: No Disorders: Yes (BPH.) HTN: Yes Hypercholesterolemia: No Kidney Stones: (ESRD.) Liver Disease: No Psychiatric Problems: Yes (DEPRESSION.) Seizures: No Thyroid Disease: No - Suicide/Smoking/Psychosocial Hx Smoking History: Former smoker Have you smoked in the past 12 months: No Number of Cigarettes Smoked Daily: 20 If you are a former smoker, when did you quit?: january 2016 Information on smoking cessation initiated: No 'Breaking Loose' booklet given: 08/12/16 Hx Alcohol Use: No Drug/Substance Use Hx: No Substance Use Type: None Hx Substance Use Treatment: No <Tyra Gould - Last Filed: 04/21/17 23:45> - Past Medical History Allergies/Adverse Reactions: Allergies Allergy/AdvReac Type Severity Reaction Status Date / Time No Known Allergies Allergy Verified 04/21/17 00:40 Home Medications: Ambulatory Orders Acetaminophen [Tylenol] 650 mg PO QID PRN 04/21/17 Albuterol 0.083% Nebulizer Myrna [Ventolin 0.083%] 1 neb NEB QID PRN 04/21/17 Calcium Acetate [Phoslo -] 1,334 mg PO TIDCM 04/21/17 Collagenase Clostridium Hist. [Santyl] 1 applic TP DAILY 04/21/17 Daptomycin [Cubicin] 500 mg IV ASDIR 04/21/17 Finasteride [Proscar -] 5 mg PO DAILY 04/21/17 Furosemide [Lasix -] 80 mg PO DAILY 04/21/17 Gentamicin 80 mg Premixed Ivpb [Garamycin 80 mg Premixed Ivpb -] 80 mg IVPB ASDIR 04/21/17 Insulin (Levemir) [Levemir Flexpen -] 5 units SQ HS 04/21/17 Insulin (Novolog) [Novolog Flexpen] 0 units SQ BIDAC 04/21/17 Metoprolol Succinate [Toprol Xl] 25 mg PO BID 04/21/17 Mirtazapine [Remeron -] 15 mg PO HS 04/21/17 Ondansetron [Zofran Odt -] 4 mg SL TID PRN 04/21/17 Sertraline HCl [Zoloft] 100 mg PO DAILY 04/21/17 Vit A/Vitamin D3/E/Aloe V/Zinc [Periguard Ointment] 454 gm TP TID 04/21/17 Vitamin B Comp W-C [Nephro-Rebecca -] 1 tablet PO DAILY 04/21/17 Review of Systems - Review of Systems Comments:: 04/21/17 01:11 CONSTITUTIONAL: Absent: fever, chills, diaphoresis, generalized weakness, malaise, loss of appetite HEENT: Absent: rhinorrhea, nasal congestion, throat pain, throat swelling, difficulty swallowing, mouth swelling, ear pain, eye pain, visual Changes CARDIOVASCULAR: Absent: chest pain, syncope, palpitations, irregular heart rate, lightheadedness , peripheral edema RESPIRATORY: Present: SOB Absent: cough, orthopnea, wheezing, stridor, hemoptysis GASTROINTESTINAL: Absent: abdominal pain, abdominal distension, nausea, vomiting, diarrhea, constipation, melena, hematochezia GENITOURINARY: Absent: dysuria, frequency, urgency, hesitancy, hematuria, flank pain, genital pain MUSCULOSKELETAL: Absent: myalgia, arthralgia, joint swelling SKIN: Present: decubitus ulcers on coccyx and left ischial process Absent: rash, itching, pallor HEMATOLOGIC/IMMUNOLOGIC: Absent: easy bleeding, easy bruising, lymphadenopathy, frequent infections ENDOCRINE: Absent: unexplained weight gain, unexplained weight loss, heat intolerance, cold intolerance NEUROLOGIC: Absent: headache, focal weakness or paresthesias, dizziness, unsteady gait, seizure, mental status changes, bladder or bowel incontinence PSYCHIATRIC: Absent: anxiety, depression, suicidal or homicidal ideation, hallucinations. <Riya Newton - Last Filed: 04/21/17 01:11> *Physical Exam - Vital Signs Last Vital Signs Temp Pulse Resp BP Pulse Ox 100.3 F H 94 H 30 H 104/57 100 04/21/17 00:03 04/21/17 00:03 04/21/17 00:03 04/21/17 00:03 04/21/17 00:03 - Physical Exam Comments: 04/21/17 01:11 GENERAL: Awake and alert. HEENT: Normocephalic, atraumatic. PERRLA, EOMI. No conjunctival pallor. Sclera are non- icteric. Moist mucous membranes. Oropharynx is clear. NECK: Supple. Full ROM. No JVD. Carotid pulses 2+ and symmetric, without bruits. No thyromegaly. No lymphadenopathy. CARDIOVASCULAR: Regular rate and rhythm. No murmurs, rubs, or gallops. Distal pulses are 2+ and symmetric. PULMONARY: Rales at bases of lungs. tachypneic ABDOMINAL: Soft, protuberant. Non-tender. Non-distended. No rebound or guarding. No organomegaly. Normoactive bowel sounds. MUSCULOSKELETAL Normal range of motion at all joints. No bony deformities or tenderness. No CVA tenderness. EXTREMITIES: +1 pitting edema in legs. No cyanosis. No clubbing. No calf tenderness. SKIN: Ulcers at coccyx & left ischial process Warm and dry. Normal capillary refill. No jaundice. NEUROLOGICAL: Alert, awake, appropriate. <Riya Newton - Last Filed: 04/21/17 01:11> - Vital Signs Last Vital Signs Temp Pulse Resp BP Pulse Ox 100.3 F H 94 H 30 H 104/57 100 04/21/17 00:03 04/21/17 00:03 04/21/17 00:03 04/21/17 00:03 04/21/17 00:03 <Tyra Gould - Last Filed: 04/21/17 23:45> ED Treatment Course - LABORATORY CBC & Chemistry Diagram: 04/21/17 00:40 04/21/17 00:40 - ADDITIONAL ORDERS Additional order review: Laboratory Results 04/21/17 00:40 VBG pH 7.43 H POC VBG pCO2 34.6 L POC VBG pO2 55.7 H D Mixed VBG HCO3 22.3 04/21/17 00:40 RBC 3.43 L MCV 91.5 MCHC 31.0 L RDW 20.0 H MPV 7.6 Neutrophils % 80.7 D Lymphocytes % 13.8 D Monocytes % 4.4 Eosinophils % 0.4 Basophils % 0.7 <Riya Newton - Last Filed: 04/21/17 01:11> - LABORATORY CBC & Chemistry Diagram: 04/21/17 00:40 04/21/17 08:30 - ADDITIONAL ORDERS Additional order review: Laboratory Results 04/21/17 00:40 VBG pH 7.43 H POC VBG pCO2 34.6 L POC VBG pO2 55.7 H D Mixed VBG HCO3 22.3 - RADIOLOGY Radiology Studies Ordered: Category Date Time Status CHEST X-RAY PORTABLE* [RAD] Stat Radiology 04/21/17 00:39 Ordered <Tyra Gould - Last Filed: 04/21/17 23:45> Medical Decision Making - Medical Decision Making 04/21/17 00:56 67-year-old male brought in from [facility] for shortness of breath. His past medical history significant for hypertension, MO, CHF, end-stage renal disease on dialysis Friday, and Friday, diabetes and for stage IV sacral decubitus, Patient did not get dialysis on Friday and now presents with mild bibasilar rales and shortness of breath Patient was admitted last month and discharged on the April 11 after he received treatment for chest pain, hyperkalemia. During his LAST dmission , MO was ruled out and his workup revealed he had VRE bacteremia, which is treated for antibiotics. He was seen by both ID and cardiology. He refused BETTY study. He will need long-term antibiotics and it was recommended he be on daptomycin for 6 weeks and gentamicin for 2 weeks. He had repeat cultures which were negative. pt admitted for fluid overload 04/21/17 23:45 <Tyra Gould - Last Filed: 04/21/17 23:45> *DC/Admit/Observation/Transfer - Attestations Scribe Attestion: 04/21/17 01:12 Documentation prepared by Riya Newton, acting as medical transcription supervisor for Tyra Gould MD. <Riya Newton - Last Filed: 04/21/17 01:11> - Discharge Dispostion Admit: Yes <Tyra Gould - Last Filed: 04/21/17 23:45> Diagnosis at time of Disposition: Dialysis patient, End stage kidney disease, Hyperkalemia Diabetes Qualifiers: Diabetes mellitus type: type 2 Diabetes mellitus complication status: with hyperglycemia Diabetes mellitus long-term insulin use: with termite control representative use Qualified Code(s): E11.65 - Type 2 diabetes mellitus with hyperglycemia COPD (chronic obstructive pulmonary disease) Qualifiers: COPD type: unspecified COPD Qualified Code(s): J44.9 - Chronic obstructive pulmonary disease, unspecified Dyspnea Qualifiers: Dyspnea type: shortness of breath Qualified Code(s): R06.02 - Shortness of breath
[2017-04-21 01:15] LABS: ALBUMIN 1.9 g/dl (3.4-5.0); ANION GAP 10 (8-16); BLOOD UREA NITROGEN 77 mg/dL (7-18); CHLORIDE 102 mmol/L (98-107); CO2 24 mmol/L (21-32); CREATININE 5.9 mg/dL (0.7-1.3); GLUCOSE,RANDOM 200 mg/dL (74-106); SGOT/AST 9 U/L (15-37); SGPT/ALT 10 U/L (12-78); SODIUM 136 mmol/L (136-145); TOT PROT 7.1 g/dl (6.4-8.2)
[2017-04-21 01:17] LABS: ALK PHOS 136 U/L (45-117); BILIRUBIN,TOTAL 0.5 mg/dL (0.2-1.0)
[2017-04-21 01:38] LABS: POTASSIUM 6.4 mmol/L (3.5-5.1)
[2017-04-21] MEDS ORDERED: DEXTROSE 50%-WATER - 25 GM/50 ML VIAL IVPUSH ONE ×2 (01:39→05:32)
[2017-04-21] MEDS ORDERED: INSULIN REGULAR HUMAN 100 UNITS/ML *VIAL IVPUSH STA (01:41)
[2017-04-21] MEDS ORDERED: INSULIN REGULAR HUMAN 100 UNITS/ML *VIAL ONE (01:50)
[2017-04-21] MEDS ORDERED: DEXTROSE 50%-WATER 25 GM/50 ML DISP.SYRIN ONE ×2 (01:50→05:51)
[2017-04-21] MEDS ORDERED: ALBUTEROL SO4 2.5/IPRATROPIUM 0.5 INH SOL 3 ML VIAL.NEB. NEB ONE ×2 (02:22→02:23)
[2017-04-21] MEDS ORDERED: ALBUTEROL SO4 2.5/IPRATROPIUM 0.5 INH SOL 3 ML VIAL.NEB. NEB PRN (02:26)
--- NOTE | 2017-04-21 02:28 | HP ---
Admitting History and Physical - Primary Care Physician PCP: Joy Turk - Admission Chief Complaint: SOB, missed dialysis History of Present Illness: This is a 67 y/o man with a significant history of ESRD (,, ), COPD, CHF, Sacral Decubital Stage 4. Who presents to the ED with SOB x several days. Patient reports missing dialysis on and Friday. He reports bilateral leg edema. Patient denies chest pain, or palpitations. Patient denies fever, chills, cough, dizziness, AP, N/V/D, constipation. 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 Cardiovascular: Yes: HTN Pulmonary: Yes: COPD Renal/: Yes: Renal Failure, Renal Inusuff, Hemodialysis Heme/Onc: Yes: Anemia Musculoskeletal: Yes: Other (sacral/ischial DUs) Endocrine: Yes: Diabetes Mellitus - Past Surgical History Past Surgical History: Yes: Cholecystectomy - Smoking History Smoking history: Former smoker Have you smoked in the past 12 months: No Aproximately how many cigarettes per day: 20 If you are a former smoker, when did you quit?: january 2016 - Alcohol/Substance Use Hx Alcohol Use: No History of Substance Use: reports: None - Social History ADL: Independent History of Recent Travel: No Home Medications - Allergies Allergies/Adverse Reactions: Allergies Allergy/AdvReac Type Severity Reaction Status Date / Time No Known Allergies Allergy Verified 04/21/17 00:40 - Home Medications Home Medications: Ambulatory Orders Acetaminophen [Tylenol] 650 mg PO QID PRN 04/21/17 Albuterol 0.083% Nebulizer Myrna [Ventolin 0.083%] 1 neb NEB QID PRN 04/21/17 Calcium Acetate [Phoslo -] 1,334 mg PO TIDCM 04/21/17 Collagenase Clostridium Hist. [Santyl] 1 applic TP DAILY 04/21/17 Daptomycin [Cubicin] 500 mg IV ASDIR 04/21/17 Finasteride [Proscar -] 5 mg PO DAILY 04/21/17 Furosemide [Lasix -] 80 mg PO DAILY 04/21/17 Gentamicin 80 mg Premixed Ivpb [Garamycin 80 mg Premixed Ivpb -] 80 mg IVPB ASDIR 04/21/17 Insulin (Levemir) [Levemir Flexpen -] 5 units SQ HS 04/21/17 Insulin (Novolog) [Novolog Flexpen] 0 units SQ BIDAC 04/21/17 Metoprolol Succinate [Toprol Xl] 25 mg PO BID 04/21/17 Mirtazapine [Remeron -] 15 mg PO HS 04/21/17 Ondansetron [Zofran Odt -] 4 mg SL TID PRN 04/21/17 Sertraline HCl [Zoloft] 100 mg PO DAILY 04/21/17 Vit A/Vitamin D3/E/Aloe V/Zinc [Periguard Ointment] 454 gm TP TID 04/21/17 Vitamin B Comp W-C [Nephro-Rebecca -] 1 tablet PO DAILY 04/21/17 Family Disease History - Family Disease History Family History: Unable to Obtain Review of Systems - Review of Systems Constitutional: reports: No Symptoms Eyes: reports: No Symptoms HENT: reports: No Symptoms Neck: reports: No Symptoms Cardiovascular: reports: Edema (bilateral lower legs), Shortness of Breath Respiratory: reports: SOB, SOB on Exertion Gastrointestinal: reports: No Symptoms Genitourinary: reports: No Symptoms Breasts: reports: No Symptoms Reported Musculoskeletal: reports: No Symptoms Integumentary: reports: No Symptoms Neurological: reports: No Symptoms Endocrine: reports: No Symptoms Psychiatric: reports: No Symptoms Physical Examination Vital Signs: Vital Signs Temperature 100.3 F H 04/21/17 00:03 Pulse Rate 94 H 04/21/17 00:03 Respiratory Rate 30 H 04/21/17 00:03 Blood Pressure 104/57 04/21/17 00:03 O2 Sat by Pulse Oximetry (%) 100 04/21/17 00:03 Constitutional: Yes: Pallor Eyes: Yes: WNL, Conjunctiva Clear, EOM Intact, PERRL HENT: Yes: WNL, Atraumatic, Normocephalic Neck: Yes: WNL, Supple, Trachea Midline Cardiovascular: Yes: WNL, Regular Rate and Rhythm, S1, S2 Respiratory: Yes: On Nasal O2, Rales, Rhonchi Gastrointestinal: Yes: Abdomen, Obese, Distention ...Rectal Exam: Yes: Deferred Renal/: Yes: CVA Tenderness - Right Breast(s): Yes: WNL Musculoskeletal: Yes: WNL Extremities: Yes: WNL Edema: Yes Edema: LLE: 2+, RLE: 2+ Peripheral Pulses WNL: Yes Integumentary: Yes: Pressure Ulcer (sacral) Neurological: Yes: WNL, Alert, Oriented, Cran Nerves II-XII Intact ...Motor Strength: WNL Psychiatric: Yes: WNL, Alert, Oriented Labs: CBC, BMP 04/21/17 00:40 04/21/17 00:40 Imaging - Results Chest X-ray: Image Reviewed EKG: Image Reviewed (NSR 92 bpm, ST & T wave abnormality, prolonged QT Qt/QTC 372/460) Problem List - Problems (1) SOB (shortness of breath) Code(s): R06.02 - SHORTNESS OF BREATH (2) Hyperkalemia Code(s): E87.5 - HYPERKALEMIA (3) Acute on chronic renal failure Code(s): N17.9 - ACUTE KIDNEY FAILURE, UNSPECIFIED; N18.9 - CHRONIC KIDNEY DISEASE, UNSPECIFIED (4) COPD (chronic obstructive pulmonary disease) Code(s): J44.9 - CHRONIC OBSTRUCTIVE PULMONARY DISEASE, UNSPECIFIED Qualifiers: COPD type: unspecified COPD Qualified Code(s): J44.9 - Chronic obstructive pulmonary disease, unspecified (5) Dialysis patient Code(s): Z99.2 - DEPENDENCE ON RENAL DIALYSIS (6) Diabetes Code(s): E11.9 - TYPE 2 DIABETES MELLITUS WITHOUT COMPLICATIONS Qualifiers: Diabetes mellitus type: type 2 Diabetes mellitus complication status: with hyperglycemia Diabetes mellitus fpc insulin use: with diesel dinkey operator use Qualified Code(s): E11.65 - Type 2 diabetes mellitus with hyperglycemia; Z79.4 - snf (current) use of insulin; Z79.4 - supply chain logistics manager (current) use of insulin ; Z79.4 - supply chain logistics manager (current) use of insulin; Z79.4 - supply chain logistics manager (current) use of insulin (7) End stage kidney disease Code(s): N18.6 - END STAGE RENAL DISEASE (8) CHF (congestive heart failure) Code(s): I50.9 - HEART FAILURE, UNSPECIFIED (9) HTN (hypertension) Code(s): I10 - ESSENTIAL (PRIMARY) HYPERTENSION (10) DVT prophylaxis Code(s): FGG2015 - Assessment/Plan This is a 67 y/o man with PMHx of: ESRD (HD-,,), HTN, COPD, CHF, Chronic Anemia. Admitted to Telemetry SOB secondary to Volume Overload. Plan: 1. SOB- secondary to missed dialysis, Appreciate Nephrology Consult for HD, O2, monitor BMP, continue home meds 2. Hyperkalemia- Likely secondary to Fluid Volume Overload, Hyperkalemia Protocol given in ED, will repeat BMP and treat accordingly, EKG reviewed SR with inverted T waves, Appreciate Cardiology Consult. Continue Cardiac monitoring, Repeat EKG in am 3. ESRD- HD (, , )- Nephrology Consult for HD, Renal Diet, Avoid Nephrotoxins 4. HTN- Continue home meds, Monitor BP 5. CHF- Chest Xray- reviewed, continue home meds 6. IDDM- Uncontrolled, BGMs, ISS for tighter glycemic control 7. Chronic Anemia- Secondary to CKD, microcytic, at baseline. Will transfuse if Hgb < 7.0,continue home meds 8. F/E/N- Fluid Restriction 500ml, Replete Lytes prn, Renal, Low Na Diet 9. DVT Prophylaxis- SCDs, Heparin SQ- monitor CBC closely Code Status: Full Code Dispo: Requires Inpatient Care Visit type - Emergency Visit Emergency Visit: Yes ED Registration Date: 04/21/17 Care time: The patient presented to the Emergency Department on the above date and was hospitalized for further evaluation of their emergent condition. - New Patient This patient is new to me today: Yes Date on this admission: 04/21/17 - Critical Care Critical Care patient: No
[2017-04-21 02:49] LABS: ARTERIAL BLOOD GAS BASE EXCESS -1.8 meq/l (-2-2); ARTERIAL BLOOD GAS PCO2 34.5 mmHg (35-45); ARTERIAL BLOOD GAS pH 7.42 (7.35-7.45); CARBOXYHEMOGLOBIN 1.8 gm% (0.5-2.0)
[2017-04-21 03:37] LABS: INR 1.57 (0.82-1.09); PROTHROMBIN TIME (PATIENT) 17.7 SEC (9.98-11.88)
[2017-04-21 03:40] LABS: ACTIVATED PTT 32.6 SECONDS (26.9-34.4)
[2017-04-21 03:51] LABS: ANION GAP 13 (8-16); BLOOD UREA NITROGEN 76 mg/dL (7-18); CALCIUM 7.9 mg/dL (8.5-10.1); CHLORIDE 103 mmol/L (98-107); CO2 22 mmol/L (21-32); CREATININE 6.1 mg/dL (0.7-1.3); GLUCOSE,RANDOM 80 mg/dL (74-106); MAGNESIUM 2.3 mg/dL (1.8-2.4); PHOSPHOROUS 4.7 mg/dL (2.5-4.9); SODIUM 138 mmol/L (136-145)
[2017-04-21 03:53] LABS: POTASSIUM 6.2 mmol/L (3.5-5.1)
[2017-04-21 04:14] VITALS: BMI 24.7
[2017-04-21] MEDS ORDERED: MAG HYDROX/AL HYDROX/SIMETH 355 ML ORAL.SUSP PO ONE (05:23)
[2017-04-21] MEDS ORDERED: INSULIN REGULAR HUMAN 100 UNITS/ML *VIAL SQ ONE (05:33)
[2017-04-21] MEDS ORDERED: ALBUTEROL SO4 0.083% IH SOL 2.5 MG/3 ML VIAL.NEB. NEB ONE (05:34)
[2017-04-21] MEDS ORDERED: MAG HYDROX/AL HYDROX/SIMETH 30 ML UNIT-DOSE CUP PO ONE (05:45)
[2017-04-21] MEDS ORDERED: ACETAMINOPHEN 325 MG TABLET (FP) PO PRN (06:29)
[2017-04-21] MEDS ORDERED: ALBUTEROL SO4 0.083% IH SOL 2.5 MG/3 ML VIAL.NEB. NEB PRN (06:29)
[2017-04-21] MEDS: INSULIN SLIDING SCALE (NOVOLOG) 1 VIAL SQ SCH ×3 (07:23→18:51)
--- NOTE | 2017-04-21 08:18 | CON.CARD ---
Consult Consult Specialty:: cardio Referred by:: hospitalist Reason for Consultation:: sob - History of Present Illness Chief Complaint: sob History of Present Illness: 67 yo male here with sob and incr leg swelling in setting of missed HD sessions x 2. pt has known systolic CHF with ? severe mitral regurgitation and presence of pulm HTN on echo. on past admits he has previously declined invasive ischemia eval due to his feeling that he is not interested in invasive treatments or surgeries. during the last (recent) admit, he declined BETTY to assess severity of mitral regurg, and to r/o SBE, for same rationale, stating he would not be interested in high- risk valve surgery even if it was potentially life-saving. states he developed sob and cough. at times phlegmy cough, hasn't seen color. no sore throat, fever/chills. feels "i have fluid" based on prior experience. no cp/pressure/heaviness. 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 Cardio/Vascular: Yes: HTN Pulmonary: Yes: COPD Renal/: Yes: Renal Failure, Renal Inusuff, Hemodialysis Musculoskeletal: Yes: Other (sacral/ischial DUs) Endocrine: Yes: Diabetes Mellitus - Past Surgical History Past Surgical History: Yes: Cholecystectomy - Alcohol/Substance Use Hx Alcohol Use: No History of Substance Use: reports: None - Smoking History Smoking history: Former smoker Have you smoked in the past 12 months: No Aproximately how many cigarettes per day: 20 If you are a former smoker, when did you quit?: january 2016 - Social History Usual Living Arrangement: With Significant Other ADL: Independent History of Recent Travel: No Home Medications - Allergies Allergies/Adverse Reactions: Allergies Allergy/AdvReac Type Severity Reaction Status Date / Time No Known Allergies Allergy Verified 04/21/17 00:40 - Home Medications Home Medications: Ambulatory Orders Acetaminophen [Tylenol] 650 mg PO QID PRN 04/21/17 Albuterol 0.083% Nebulizer Myrna [Ventolin 0.083%] 1 neb NEB QID PRN 04/21/17 Calcium Acetate [Phoslo -] 1,334 mg PO TIDCM 04/21/17 Collagenase Clostridium Hist. [Santyl] 1 applic TP DAILY 04/21/17 Daptomycin [Cubicin] 500 mg IV ASDIR 04/21/17 Finasteride [Proscar -] 5 mg PO DAILY 04/21/17 Furosemide [Lasix -] 80 mg PO DAILY 04/21/17 Gentamicin 80 mg Premixed Ivpb [Garamycin 80 mg Premixed Ivpb -] 80 mg IVPB ASDIR 04/21/17 Insulin (Levemir) [Levemir Flexpen -] 5 units SQ HS 04/21/17 Insulin (Novolog) [Novolog Flexpen] 0 units SQ BIDAC 04/21/17 Metoprolol Succinate [Toprol Xl] 25 mg PO BID 04/21/17 Mirtazapine [Remeron -] 15 mg PO HS 04/21/17 Ondansetron [Zofran Odt -] 4 mg SL TID PRN 04/21/17 Sertraline HCl [Zoloft] 100 mg PO DAILY 04/21/17 Vit A/Vitamin D3/E/Aloe V/Zinc [Periguard Ointment] 454 gm TP TID 04/21/17 Vitamin B Comp W-C [Nephro-Rebecca -] 1 tablet PO DAILY 04/21/17 Family Disease History - Family Disease History Family History: Denies (no known cmp) Review of Systems - Review of Systems Constitutional: denies: Chills, Fever Eyes: denies: Eye Pain HENT: denies: Nasal Congestion Neck: denies: Stiffness Cardiovascular: denies: Palpitations Respiratory: denies: Orthopnea, PND Gastrointestinal: denies: Diarrhea, Rectal Bleeding Genitourinary: denies: Burning, Hematuria Musculoskeletal: denies: Muscle Pain Integumentary: denies: Rash Neurological: denies: Numbness, Seizure, Syncope Endocrine: denies: Excessive Sweating Hematology/Lymphatic: denies: Excessive Bleeding Vital Signs: Vital Signs Temperature 99.4 F 04/21/17 06:00 Pulse Rate 89 04/21/17 06:00 Respiratory Rate 20 04/21/17 06:00 Blood Pressure 112/67 04/21/17 06:00 O2 Sat by Pulse Oximetry (%) 100 04/21/17 04:04 Constitutional: Yes: Well Nourished, No Distress Eyes: No: Sclera Icterus HENT: No: Nasal Congestion Neck: No: Decreased ROM Respiratory: Yes: CTA Bilaterally, Rhonchi. No: Accessory Muscle Use, Rales, Wheezes Gastrointestinal: Yes: Normal Bowel Sounds. No: Distention, Hepatomegaly, Palpable Mass, Tenderness Cardiovascular: Yes: Regular Rate and Rhythm JVD: No Carotid Bruit: No PMI: Non-Displaced Heart Sounds: Yes: S1, S2. No: Gallop Murmur: No: Systolic Murmur, Diastolic Murmur Musculoskeletal: Yes: Other (No kyphosis) Extremities: No: Cold, Cyanosis Edema: No Peripheral Pulses: 2+ Left Carotid, 2+ Right Carotid, 2+ Left Doralis Pedis, 2+ Right Dorsalis Pedis Integumentary: No: Jaundice Neurological: Yes: Alert, Oriented (x3) Psychiatric: No: Agitated - Other Data Labs, Other Data: CBC, BMP 04/21/17 00:40 04/21/17 03:19 INR, PTT INR 1.57 (0.82-1.09) H 04/21/17 03:19 Troponin, BNP 04/21/17 04/21/17 00:40 03:19 Troponin I 0.03 0.03 Troponin, BNP 04/21/17 04/21/17 00:40 03:19 Troponin I 0.03 0.03 Laboratory Tests 04/21/17 04/21/17 04/21/17 00:40 00:40 00:40 WBC 9.8 Hgb 9.7 L Plt Count 223 INR ABG pH ABG pCO2 at Pt Temp ABG pO2 at Pt Temp Oxygen Flow Rate Sodium Potassium Carbon Dioxide BUN Creatinine AST 9 L ALT 10 L Troponin I 0.03 04/21/17 04/21/17 04/21/17 02:30 03:19 03:19 WBC Hgb Plt Count INR ABG pH 7.42 ABG pCO2 at Pt Temp 34.5 L ABG pO2 at Pt Temp 123.0 H D Oxygen Flow Rate 2l Sodium 138 Potassium 6.2 H* Carbon Dioxide 22 BUN 76 H Creatinine 6.1 H AST ALT Troponin I 0.03 04/21/17 03:19 WBC Hgb Plt Count INR 1.57 H ABG pH ABG pCO2 at Pt Temp ABG pO2 at Pt Temp Oxygen Flow Rate Sodium Potassium Carbon Dioxide BUN Creatinine AST ALT Troponin I tele: NSR Assessment/Plan MPI 01/28 (dipyridamole): no ST changes; inferior fixed defect (reverse distribution) thought to be 2/2 diaphragmatic attenuation. No ischemia/ infarct. Dilated left ventricle with severely reduced systolic function, global. EF 18%. Echo 04/04/17: sev LVE, sev decr LVEF. mod RVE, mod RV hypo. mod-severe MR ( eccentric). mod-sev TR. RVSP 40-50. no vegetation noted. Echo 04/02/2017: mod lve, sev dec lvef, 20%, global hk Echo 01/2017: 1+ concentric lvh. 1+ lve. LV fn severely reduced, global. nl rv size, mildly depressed fn. mod-sev eccentric MR. rvsp 40-50. Echo 09/2016: Sev LV dilation. Sev reduced LV function. (global). RV not well visualized. Mobile density c/w torn chordae (veg can't be excluded). Ao not well visualized. RVSP not assessed. (During hospital admit for sepsis) - NL LV function 01/2016. ECG 03/30, 03/31: NSR, ST-Ts anterolateral leads not signif changed vs prior . PVCs (ventric bigeminy on 03/31 strip) CXR: progressive R pulm and pleural changes a/p: 67 y.o. male with a PMH of HTN, HL, systolic cardiomyopathy CHF, ESRD (on HD), chronic anemia, sacral debubitus ulcers, copd, and IDDM here with sob. VREF enterococcal bacteremia (NH-acquired): -dx'd 03/30, f/u BCx's negative at that time. -empiric prolonged abx course rec'd by ID -echo no vegetation seen. mod-severe MR not a new finding (present on 01/28 study as well, possibly due to torn chorda previously reported, vs decomp chf) -CT scan at that time with new splenic infarct, declined BETTY to look for signs of SBE, declined consideration of CT surgery regardless of findings. -low-grade fever (100.3) here--w/u per ID. BCx pending -r/o PNA based on CXR findings sob, acute on chronic systolic chf, mitral regurg: -noted to have depressed EF during previous admit. cath deferred at that time due to pt preference, as well as admitted non-adherence pattern to meds (e.g. DAPT regimen), known significant anemia with h/o transfusions, and poor candidacy for CABG consideration given frailty, poor mobility with decubitus ulcers, etc. -01/28 stress test without ischemia. -cont metoprolol, nitrates low dose per prior regimen, as bp permits. no ELIOT sec to hyperkalemia. isordil started here. bp stable, consider hydralazine -CXR with probable congestion component in setting of missed HD -trop negative x 2, do not suspect ACS clinically. ECG not yet in chart or [place]- -f/u once completed. -volume management per HD/UF, as per renal recs -no JVD or appreciable edema on exam--r/o pneumonia, per ID and pulmonary teams -ICD discussion previously deferred until bacteremia is fully treated; however, in light of pt stated wishes to minimize invasive procedures, he may not be interested in proceeding. it is equivocal in light of his severe comorbidities, despite relatively young age, whether ICD will alter his prognosis. discussion deferred until infection is confidently controlled. 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 -currently H/H stabe at baseline
[2017-04-21] MEDS: CALCIUM ACETATE 667 MG CAPSULE (FP) PO SCH ×3 (08:59→18:51)
[2017-04-21 09:36] LABS: ANION GAP 10 (8-16); BLOOD UREA NITROGEN 73 mg/dL (7-18); CHLORIDE 102 mmol/L (98-107); CO2 23 mmol/L (21-32); CREATININE 6.1 mg/dL (0.7-1.3); GLUCOSE,RANDOM 51 mg/dL (74-106); SODIUM 135 mmol/L (136-145)
[2017-04-21] MEDS ORDERED: METOPROLOL SUCCINATE 25 MG TAB.SR.24H (FP) PO SCH (10:00)
[2017-04-21] MEDS: METOPROLOL SUCCINATE 25 MG TAB.SR.24H (FP) PO SCH ×2 (10:00→21:39)
[2017-04-21] MEDS: FUROSEMIDE 40 MG TABLET (FP) PO SCH (10:00)
[2017-04-21] MEDS: VITAMIN B COMP W-C 1 EA TABLET PO SCH (10:00)
[2017-04-21] MEDS ORDERED: DAPTOMYCIN 500 MG in SODIUM CHLORIDE 100 ML IVPB ONE (10:00)
[2017-04-21] MEDS ORDERED: DAPTOmycin 500 MG VIAL (RESTRICTED TO ID) IVPB SCH (10:00)
[2017-04-21] MEDS: SERTRALINE HCL 50 MG TABLET (FP) PO SCH (10:01)
[2017-04-21] MEDS: COLLAGENASE CLOSTRIDIUM HIST. 30 GRAMS TUBE TP SCH (10:04)
[2017-04-21 10:13] LABS: POTASSIUM 6.1 mmol/L (3.5-5.1)
[2017-04-21] MEDS: FINASTERIDE 5 MG TABLET (FP) PO SCH (11:10)
--- NOTE | 2017-04-21 12:13 | EKG ---
Test Reason : Blood Pressure : / mmHG Vent. Rate : 089 BPM Atrial Rate : 089 BPM P-R Int : 138 ms QRS Dur : 112 ms QT Int : 392 ms P-R-T Axes : 062 027 124 degrees QTc Int : 476 ms NORMAL SINUS RHYTHM PROLONGED QT ABNORMAL ECG WHEN COMPARED WITH ECG OF 31-MAR-2017 01:51, NO SIGNIFICANT CHANGE WAS FOUND Confirmed by GRACE COLEMAN MD ([id number]) on 04/21/2017 12:12:46 PM Referred By: Confirmed By:GRACE COLEMAN MD
--- NOTE | 2017-04-21 12:44 | EKG ---
Test Reason : Blood Pressure : / mmHG Vent. Rate : 092 BPM Atrial Rate : 092 BPM P-R Int : 132 ms QRS Dur : 106 ms QT Int : 372 ms P-R-T Axes : 066 032 143 degrees QTc Int : 460 ms NORMAL SINUS RHYTHM PROLONGED QT ABNORMAL ECG WHEN COMPARED WITH ECG OF 31-MAR-2017 01:51, PREMATURE VENTRICULAR COMPLEXES ARE NO LONGER PRESENT QT HAS SHORTENED Confirmed by GRACE COLEMAN MD ([id number]) on 04/21/2017 12:44:08 PM Referred By: Confirmed By:GRACE COLEMAN MD
[2017-04-21] MEDS: NYSTATIN POWDER 100,000 UNITS/GM - 15 GM TOPICAL POWDER TP SCH ×2 (13:11→18:51)
--- NOTE | 2017-04-21 13:14 | PN ---
Progress Note (short form) - Note Progress Note: ID consult dictated imp/reccd very poorly compliant gentleman with ESRD/HD admitted with volume overload he was recently discharged on daptomycin for VREF bacteremia-refused BETTY now with SOB, no fevers reports he has not been following fluid restriction per ED sheet- has missed two dialysis sessions! refusing exam of sacral ulcers volume overload- management per renal VREF bacteremia- day #19 daptomycin- has completed 2 weeks gentamycin- will d/c continue daptomycin with HD to complete 42 days total treatment esrd/hd- continue daptomycin after each HD as previously discussed please call back if needed Problem List - Problems (1) Volume overload Code(s): E87.70 - FLUID OVERLOAD, UNSPECIFIED (2) VRE bacteremia Code(s): R78.81 - BACTEREMIA; Z16.21 - RESISTANCE TO VANCOMYCIN (3) ESRD (end stage renal disease) on dialysis Code(s): N18.6 - END STAGE RENAL DISEASE; Z99.2 - DEPENDENCE ON RENAL DIALYSIS
[2017-04-21] MEDS ORDERED: PATIENT'S OWN MEDICATION (NON-FORMULARY) (Vit A/Vitamin D3/E/Aloe V/Zinc [Periguard Ointme TP SCH (14:00)
--- NOTE | 2017-04-21 15:26 | CON.NEP ---
Consult Consult Specialty:: Nephrology Referred by:: Dr. Turk Reason for Consultation:: ESRD on HD, Hyperkalemia - History of Present Illness Chief Complaint: SOB History of Present Illness: This is a 67 year old gentleman with PMhx of ESRD on HD (TTS), CAD, DM Type 2, Sacral Decubitis ulcers, recent enterococcus bacteremia on IV dapto with HD presented with complaints of SOB and admitted for suspected PNA. Pt non- complaint with dialysis and skipped his Friday treatment. 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 Cardio/Vascular: Yes: HTN Pulmonary: Yes: COPD Renal/: Yes: Renal Failure, Renal Inusuff, Hemodialysis Musculoskeletal: Yes: Other (sacral/ischial DUs) Endocrine: Yes: Diabetes Mellitus - Past Surgical History Past Surgical History: Yes: Cholecystectomy - Alcohol/Substance Use Hx Alcohol Use: No History of Substance Use: reports: None - Smoking History Smoking history: Former smoker Have you smoked in the past 12 months: No Aproximately how many cigarettes per day: 20 If you are a former smoker, when did you quit?: january 2016 - Social History Usual Living Arrangement: With Significant Other ADL: Independent History of Recent Travel: No Home Medications - Allergies Allergies/Adverse Reactions: Allergies Allergy/AdvReac Type Severity Reaction Status Date / Time No Known Allergies Allergy Verified 04/21/17 00:40 - Home Medications Home Medications: Ambulatory Orders Acetaminophen [Tylenol] 650 mg PO QID PRN 04/21/17 Albuterol 0.083% Nebulizer Myrna [Ventolin 0.083%] 1 neb NEB QID PRN 04/21/17 Calcium Acetate [Phoslo -] 1,334 mg PO TIDCM 04/21/17 Collagenase Clostridium Hist. [Santyl] 1 applic TP DAILY 04/21/17 Daptomycin [Cubicin] 500 mg IV ASDIR 04/21/17 Finasteride [Proscar -] 5 mg PO DAILY 04/21/17 Furosemide [Lasix -] 80 mg PO DAILY 04/21/17 Gentamicin 80 mg Premixed Ivpb [Garamycin 80 mg Premixed Ivpb -] 80 mg IVPB ASDIR 04/21/17 Insulin (Levemir) [Levemir Flexpen -] 5 units SQ HS 04/21/17 Insulin (Novolog) [Novolog Flexpen] 0 units SQ BIDAC 04/21/17 Metoprolol Succinate [Toprol Xl] 25 mg PO BID 04/21/17 Mirtazapine [Remeron -] 15 mg PO HS 04/21/17 Ondansetron [Zofran Odt -] 4 mg SL TID PRN 04/21/17 Sertraline HCl [Zoloft] 100 mg PO DAILY 04/21/17 Vit A/Vitamin D3/E/Aloe V/Zinc [Periguard Ointment] 454 gm TP TID 04/21/17 Vitamin B Comp W-C [Nephro-Rebecca -] 1 tablet PO DAILY 04/21/17 Family Disease History - Family Disease History Family History: Unremarkable Review of Systems - Review of Systems Constitutional: reports: No Symptoms Eyes: reports: No Symptoms HENT: reports: No Symptoms Neck: reports: No Symptoms Cardiovascular: reports: Shortness of Breath. denies: Edema, Palpitations Respiratory: reports: Cough, SOB on Exertion. denies: Hemoptysis Gastrointestinal: reports: No Symptoms Genitourinary: reports: No Symptoms Integumentary: denies: No Symptoms Neurological: denies: No Symptoms Nephrology Consult - Height Height: 6 ft - Weight Weight: 82.826 kg - BMI Body Mass Index (BMI): 24.7 - Lab Results CBC,BMP: CBC, BMP 04/21/17 00:40 04/21/17 08:30 Anion Gap: Anion Gap Anion Gap 10 (8-16) 04/21/17 08:30 - Imaging Chest X-ray: Report Reviewed - Physical Examination Vital Signs: Vital Signs Temperature 97.9 F 04/21/17 14:00 Pulse Rate 88 04/21/17 14:00 Respiratory Rate 24 04/21/17 14:00 Blood Pressure 118/75 04/21/17 14:00 O2 Sat by Pulse Oximetry (%) 99 04/21/17 09:00 Constitutional: Yes: No Distress, Calm Eyes: Yes: Conjunctiva Clear HENT: Yes: Atraumatic, Normocephalic Neck: Yes: Supple Cardiovascular: Yes: Regular Rate and Rhythm, S1, S2. No: JVD, Rub Respiratory: Yes: Regular, CTA Bilaterally Gastrointestinal: Yes: Normal Bowel Sounds, Soft. No: Tenderness Renal/: No: Anuria Access for Hemodialysis: Permacath Extremities: No: Cold, Cool, Cyanosis Edema: Yes Edema: LLE: Trace, RLE: Trace Peripheral Pulses WNL: Yes Assessment/Plan 67 year old gentleman with PMhx of ESRD on HD (TTS), CAD, DM Type 2, Sacral Decubitis ulcers, recent enterococcus bacteremia on IV dapto with HD presented with complaints of SOB and admitted for suspected PNA. #ESRD on HD HD today and tomorrow to maintain TTS schedule UF as tolerated with low temp, albumin, and Midodrine to maintain BP fluid and salt restriction dose all meds for intermittent HD #Hyperkalemia low K diet will use low K bath with dialysis #SOB secondary to volume overload +/- PNA UF as tolerated with HD Abx as per ID #Entercoccus Bacteremia on Daptomycin will continue IV Dapto with dialysis will redose today and tomorrow with dialysis #CKD related Anemia continue WILY with HD no indication for transfusion Thank you Will follow Dominick Vanegas DO
[2017-04-21] MEDS ORDERED: MIDODRINE HCL 5 MG TABLET PO ONE (15:30)
[2017-04-21] MEDS ORDERED: EPOETIN ALFA 10,000 UNIT/1 ML VIAL IVPUSH ONE (16:00)
[2017-04-21] MEDS ORDERED: EPOETIN ALFA 2,000 UNIT/1 ML VIAL IVPUSH ONE (16:00)
--- NOTE | 2017-04-21 16:26 | CONS ---
DATE OF CONSULTATION: 04/21/2017 REQUESTED BY: Joy Turk MD This is a 67-year-old man with a history of end-stage renal disease, on dialysis. He was recently in the hospital in March, from the to the , for hyperkalemia. He had VRE bacteremia. He had an abnormal echo and refused BETTY. He was discharged back to the longterm to complete 2 weeks of gentamicin and 6 weeks of daptomycin with dialysis. He is now re-admitted with volume overload. To me, he says he has not been compliant with his fluid restriction. Per the ER chart, he has missed 2 dialysis sessions. He complains of shortness of breath. He has no fevers or chills. I am asked to see him for his antibiotics. He is awake and alert and has no complaints. His past medical history, as stated before, is notable for end-stage renal disease, on dialysis, he has a history of peripheral neuropathy, hypertension, COPD, anemia. He has a chronic sacral ulcer and diabetes. SURGICAL HISTORY: He has an AV fistula that is maturing, and he is status post cholecystectomy. He has no known drug allergies. His medication as an outpatient includes streptomycin, PhosLo, Santyl, Lasix, gentamicin, insulin, metoprolol, mirtazapine, Zofran, sertraline, and vitamins. Family history is unremarkable. SOCIAL HISTORY: He is residing at the longterm. He is a former smoker. PHYSICAL EXAMINATION: General: He is awake and alert. Vital Signs: T-max is 99.5, current temperature is 97.9. Pulse of 88. Blood pressure 118/75. Respiratory rate 24. HEENT: He is normocephalic. His eyes are anicteric. Neck: Supple. Lungs: Clear to auscultation. Heart: Regular rate and rhythm. Abdomen: Soft, nontender. Extremities: Without edema. Skin: He refuses examination of his sacral ulcers. A dressing has just been done by the nurse. In summary, this is a 67-year-old man with volume overload, management per Renal, VREF bacteremia, day 19 of daptomycin. He has completed 2 weeks of gentamicin; will discontinue. Continue daptomycin with dialysis to complete 42 days total treatment. End-stage renal disease, on dialysis. To continue daptomycin after each dialysis as previously discussed. Please call back if needed. Repeat blood cultures have been sent. Remy RODRIGUEZ/[id number]
[2017-04-21] MEDS: ALBUMIN HUMAN 25% 12.5 GM/50 ML VIAL IVPB SCH ×3 (16:46→18:39)
[2017-04-21] MEDS: MIRTAZAPINE 15 MG TABLET (FP) PO SCH (21:38)
[2017-04-22] MEDS: NYSTATIN POWDER 100,000 UNITS/GM - 15 GM TOPICAL POWDER TP SCH ×3 (04:04→21:48)
[2017-04-22] MEDS: INSULIN SLIDING SCALE (NOVOLOG) 1 VIAL SQ SCH ×3 (06:34→17:32)
--- NOTE | 2017-04-22 08:58 | PN ---
Progress Note (short form) - Note Progress Note: patient seen and examined in ICU today Chart reviewed Well-known to me Sent from alf due to volume overload No complaints Feels okay Vital Signs Temp 97.9 F 04/22/17 06:00 Pulse 86 04/22/17 06:00 Resp 16 04/22/17 06:00 BP 107/66 04/22/17 06:00 Pulse Ox 99 04/21/17 22:25 Intake & Output 04/21/17 04/21/17 04/22/17 11:59 23:59 11:59 Intake Total 490 150 Balance 490 150 Weight 182 lb 9.6 oz 182 lb 9.6 oz 176 lb Intake: IV 10 SL 10 Oral 480 150 Other: Voiding Method Incontinent Incontinent # Unmeasured Voids Starks 1 1 1 # Bowel Movements 2 1 Height 6 ft 6 ft Body Mass Index (BMI) 24.7 24.7 Weight Measurement Method Built in Bedscale Built in Bedscale Active Medications Acetaminophen (Tylenol -) 650 mg PO Q6H PRN PRN Reason: FEVER Albuterol Sulfate (Ventolin 0.083% Nebulizer Soln -) 1 amp NEB Q6H PRN PRN Reason: SHORT OF BREATH/WHEEZING Calcium Acetate (Phoslo -) 1,334 mg PO TIDCM [facility] Last Admin: 04/21/17 18:51 Dose: Not Given Collagenase (Santyl -) 1 applic TP DAILY [facility] Last Admin: 04/21/17 10:04 Dose: 1 appful Finasteride (Proscar -) 5 mg PO DAILY [facility] Last Admin: 04/21/17 11:10 Dose: 5 mg Furosemide (Lasix -) 80 mg PO DAILY [facility] Last Admin: 04/21/17 10:00 Dose: 80 mg Daptomycin 500 mg/ Sodium (Chloride) 100 mls @ 200 mls/hr IVPB Q48H [facility] Insulin Aspart (Novolog Vial Sliding Scale -) 1 vial SQ TIDAC [facility] PRN Reason: Protocol Last Admin: 04/22/17 06:34 Dose: Not Given Metoprolol Succinate (Toprol Xl -) 25 mg PO BID [facility] Last Admin: 04/21/17 21:39 Dose: 25 mg Mirtazapine (Remeron -) 15 mg PO HS [facility] Last Admin: 04/21/17 21:38 Dose: 15 mg Multivit/Ca Carb/B Cmplx/FA/Prenat (Nephro-Rebecca -) 1 tablet PO DAILY [facility] Last Admin: 04/21/17 10:00 Dose: 1 tablet Non-Formulary Medication (Vit A/Vitamin D3/E/Aloe V/Zinc [Periguard Ointment]) 454 gm TP TID [facility] Nystatin (Nystop Powder -) 1 applic TP Q8H [facility] Last Admin: 04/22/17 04:04 Dose: 1 appful Sertraline HCl (Zoloft -) 100 mg PO DAILY [facility] Last Admin: 04/21/17 10:01 Dose: 100 mg CBC, BMP 04/21/17 00:40 04/21/17 08:30 Physical exam Awake and comfortable Lungs--- diminished at bases CVS--- S1 and S2 regular Abdomen-soft Extremities--no edema Neuro--alert and awake Assessment and plan very poorly compliant pt with ESRD/HD admitted with volume overload he was recently discharged on daptomycin for VREF bacteremia-refused BETTY Continue present care last hemodialysis yesterday and being dialyzed today Poor insight Monitor blood sugar Antibiotics Will follow.
[2017-04-22] MEDS ORDERED: GENTAMICIN 80 MG PREMIXED IVPB 80 MG/100 ML BAG IVPB SCH (10:00)
[2017-04-22 10:17] LABS: HEMATOCRIT 32.3 % (35.4-49); HEMOGLOBIN 9.8 GM/dL (11.7-16.9); MCH 27.9 pg (25.7-33.7); MCHC 30.3 g/dl (32.0-35.9); MEAN CELL VOLUME 92.2 fl (80-96); MEAN PLT VOLUME 7.1 fl (7.5-11.1); PLATELET COUNT 164 K/MM3 (134-434); RDW 20.6 % (11.9-15.9)
[2017-04-22 10:41] LABS: ANION GAP 7 (8-16); BLOOD UREA NITROGEN 40 mg/dL (7-18); CALCIUM 7.5 mg/dL (8.5-10.1); CHLORIDE 106 mmol/L (98-107); CO2 28 mmol/L (21-32); CREATININE 3.8 mg/dL (0.7-1.3); GLUCOSE,RANDOM 163 mg/dL (74-106); PHOSPHOROUS 3.3 mg/dL (2.5-4.9); POTASSIUM 4.7 mmol/L (3.5-5.1); SODIUM 141 mmol/L (136-145)
[2017-04-22] MEDS ORDERED: DAPTOMYCIN IVPB SCH (11:00)
[2017-04-22] MEDS ORDERED: SODIUM CHLORIDE IVPB SCH (11:00)
--- NOTE | 2017-04-22 11:11 | PN ---
Progress Note (short form) - Note Progress Note: cc: le edema S: getting hd. denies sob, cp, palps, dizziness. LE edema improved. Current Medications Acetaminophen (Tylenol -) 650 mg PO Q6H PRN PRN Reason: FEVER Albuterol Sulfate (Ventolin 0.083% Nebulizer Soln -) 1 amp NEB Q6H PRN PRN Reason: SHORT OF BREATH/WHEEZING Calcium Acetate (Phoslo -) 1,334 mg PO TIDCM [facility] Last Admin: 04/21/17 18:51 Dose: Not Given Collagenase (Santyl -) 1 applic TP DAILY [facility] Last Admin: 04/21/17 10:04 Dose: 1 appful Finasteride (Proscar -) 5 mg PO DAILY [facility] Last Admin: 04/21/17 11:10 Dose: 5 mg Furosemide (Lasix -) 80 mg PO DAILY [facility] Last Admin: 04/21/17 10:00 Dose: 80 mg Daptomycin 575 mg/ Sodium (Chloride) 50 mls @ 50 mls/hr IVPB TUTHSA [facility] PRN Reason: Protocol Insulin Aspart (Novolog Vial Sliding Scale -) 1 vial SQ TIDAC [facility] PRN Reason: Protocol Last Admin: 04/22/17 06:34 Dose: Not Given Insulin Detemir (Levemir Vial) 5 units SQ [facility] Metoprolol Succinate (Toprol Xl -) 25 mg PO BID [facility] Last Admin: 04/21/17 21:39 Dose: 25 mg Mirtazapine (Remeron -) 15 mg PO HS [facility] Last Admin: 04/21/17 21:38 Dose: 15 mg Multivit/Ca Carb/B Cmplx/FA/Prenat (Nephro-Rebecca -) 1 tablet PO DAILY [facility] Last Admin: 04/21/17 10:00 Dose: 1 tablet Non-Formulary Medication (Vit A/Vitamin D3/E/Aloe V/Zinc [Periguard Ointment]) 454 gm TP TID [facility] Nystatin (Nystop Powder -) 1 applic TP Q8H [facility] Last Admin: 04/22/17 04:04 Dose: 1 appful Sertraline HCl (Zoloft -) 100 mg PO DAILY [facility] Last Admin: 04/21/17 10:01 Dose: 100 mg Vital Signs - 24 hr 04/21/17 04/21/17 04/21/17 14:00 14:55 15:00 Temperature 97.9 F 98.8 F Pulse Rate 88 93 H 93 H Respiratory 24 18 18 Rate Blood Pressure 118/75 110/71 118/75 O2 Sat by Pulse Oximetry (%) 04/21/17 04/21/17 04/21/17 15:30 16:00 16:30 Temperature Pulse Rate 92 H 97 H 94 H Respiratory 18 18 18 Rate Blood Pressure 126/83 132/87 135/92 O2 Sat by Pulse Oximetry (%) 04/21/17 04/21/17 04/21/17 17:00 17:30 18:00 Temperature Pulse Rate 98 H 97 H 94 H Respiratory 18 18 18 Rate Blood Pressure 131/90 139/89 136/91 O2 Sat by Pulse Oximetry (%) 04/21/17 04/21/17 04/21/17 18:30 19:00 19:06 Temperature Pulse Rate 96 H 91 H 93 H Respiratory 18 18 18 Rate Blood Pressure 142/69 141/56 144/68 O2 Sat by Pulse Oximetry (%) 04/21/17 04/21/17 04/22/17 22:00 22:25 02:00 Temperature 99.1 F 99.5 F Pulse Rate 100 H 94 H Respiratory 23 25 H Rate Blood Pressure 126/84 115/57 O2 Sat by Pulse 99 Oximetry (%) 04/22/17 06:00 Temperature 97.9 F Pulse Rate 86 Respiratory 16 Rate Blood Pressure 107/66 O2 Sat by Pulse Oximetry (%) Intake & Output 04/20/17 04/21/17 04/22/17 04/23/17 07:59 07:59 07:59 07:59 Intake Total 640 Balance 640 Weight 182 lb 9.6 oz 176 lb Constitutional: Yes: Well Nourished, No Distress Eyes: No: Sclera Icterus HENT: No: Nasal Congestion Neck: No: Decreased ROM Respiratory: Yes: CTA Bilaterally, Rhonchi. No: Accessory Muscle Use, Rales, Wheezes Gastrointestinal: Yes: Normal Bowel Sounds. No: Distention, Hepatomegaly, Palpable Mass, Tenderness Cardiovascular: Yes: Regular Rate and Rhythm JVD: No Carotid Bruit: No PMI: Non-Displaced Heart Sounds: Yes: S1, S2. No: Gallop Murmur: No: Systolic Murmur, Diastolic Murmur Musculoskeletal: Yes: Other (No kyphosis) Extremities: No: Cold, Cyanosis Edema: No Peripheral Pulses: 2+ Left Carotid, 2+ Right Carotid, 2+ Left Doralis Pedis, 2+ Right Dorsalis Pedis Integumentary: No: Jaundice Neurological: Yes: Alert, Oriented (x3) Psychiatric: No: Agitated - Other Data Labs, Other Data: CBC, BMP 04/22/17 09:20 04/22/17 09:20 tele: NSR, freq pvc's. Assessment/Plan MPI 01/28 (dipyridamole): no ST changes; inferior fixed defect (reverse distribution) thought to be 2/2 diaphragmatic attenuation. No ischemia/ infarct. Dilated left ventricle with severely reduced systolic function, global. EF 18%. Echo 04/04/17: sev LVE, sev decr LVEF. mod RVE, mod RV hypo. mod-severe MR ( eccentric). mod-sev TR. RVSP 40-50. no vegetation noted. Echo 04/02/2017: mod lve, sev dec lvef, 20%, global hk Echo 01/2017: 1+ concentric lvh. 1+ lve. LV fn severely reduced, global. nl rv size, mildly depressed fn. mod-sev eccentric MR. rvsp 40-50. Echo 09/2016: Sev LV dilation. Sev reduced LV function. (global). RV not well visualized. Mobile density c/w torn chordae (veg can't be excluded). Ao not well visualized. RVSP not assessed. (During hospital admit for sepsis) - NL LV function 01/2016. ECG 03/30, 03/31: NSR, ST-Ts anterolateral leads not signif changed vs prior . PVCs (ventric bigeminy on 03/31 strip) CXR: progressive R pulm and pleural changes a/p: 67 y.o. male with a PMH of HTN, HL, systolic cardiomyopathy, ESRD (on HD), chronic anemia, sacral debubitus ulcers, copd, and IDDM here with increased LE edema in setting of missed HD sessions. . recent VREF enterococcal bacteremia ([facility]-acquired): -dx'd 03/30, f/u BCx's negative since then. low-grade fever (100.3) here--w/u per ID. BCx negative -empiric prolonged abx course rec'd by ID -echo no vegetation seen. mod-severe MR not a new finding (present on 01/28 study as well, possibly due to torn chorda previously reported, vs decomp chf) -CT scan at that time with new splenic infarct, declined BETTY to look for signs of SBE, declined consideration of CT surgery regardless of findings. -r/o PNA based on CXR findings sob, acute on chronic systolic chf, mitral regurg: -noted to have depressed EF during previous admit. cath deferred at that time due to pt preference, as well as admitted non-adherence pattern to meds (e.g. DAPT regimen), known significant anemia with h/o transfusions, and poor candidacy for CABG consideration given frailty, poor mobility with decubitus ulcers, etc. -01/28 stress test without ischemia. -cont metoprolol, nitrates low dose per prior regimen, as bp permits. no ELIOT sec to hyperkalemia. isordil started here. bp stable, consider hydralazine -CXR with probable congestion component in setting of missed HD -trop negative x 2, do not suspect ACS clinically. ECG not yet in chart or [place]- -f/u once completed. -volume management per HD/UF and po lasix, as per renal recs. LE edema improving. -no JVD or appreciable edema on exam--r/o pneumonia, per ID and pulmonary teams -ICD discussion previously deferred until bacteremia is fully treated; however, in light of pt stated wishes to minimize invasive procedures, he may not be interested in proceeding. it is equivocal in light of his severe comorbidities, despite relatively young age, whether ICD will alter his prognosis. discussion deferred until infection is confidently controlled. 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 -currently H/H stabe at baseline
[2017-04-22] MEDS ORDERED: PT OWN MED DRAWER 7, Y5N ONE (12:12)
[2017-04-22] MEDS: CALCIUM ACETATE 667 MG CAPSULE (FP) PO SCH ×3 (12:47→17:25)
[2017-04-22] MEDS ORDERED: DAPTOMYCIN 500 MG in SODIUM CHLORIDE 50 ML IVPB SCH (14:06)
--- NOTE | 2017-04-22 14:20 | PN ---
Progress Note (short form) - Note Progress Note: Renal follow up for ESRD on HD PT seen and examined in tele currently getting dialysis, tolerating it well goal UF is 2-2.5L over 3 hours catheter with good flow Vital Signs Temperature 98.2 F 04/22/17 09:15 Pulse Rate 83 04/22/17 12:30 Respiratory Rate 18 04/22/17 12:30 Blood Pressure 105/74 04/22/17 12:30 O2 Sat by Pulse Oximetry (%) 99 04/21/17 22:25 Intake & Output 04/19/17 04/20/17 04/21/17 04/22/17 23:59 23:59 23:59 23:59 Intake Total 490 150 Balance 490 150 Weight 82.826 kg 79.832 kg NAD RRR CTA soft NT/ND no Le edema CBC, BMP 04/22/17 09:20 04/22/17 09:20 Current Medications Acetaminophen (Tylenol -) 650 mg PO Q6H PRN PRN Reason: FEVER Albuterol Sulfate (Ventolin 0.083% Nebulizer Soln -) 1 amp NEB Q6H PRN PRN Reason: SHORT OF BREATH/WHEEZING Calcium Acetate (Phoslo -) 1,334 mg PO TIDCM [facility] Last Admin: 04/22/17 12:47 Dose: Not Given Collagenase (Santyl -) 1 applic TP DAILY [facility] Last Admin: 04/21/17 10:04 Dose: 1 appful Finasteride (Proscar -) 5 mg PO DAILY [facility] Last Admin: 04/21/17 11:10 Dose: 5 mg Furosemide (Lasix -) 80 mg PO DAILY [facility] Last Admin: 04/21/17 10:00 Dose: 80 mg Daptomycin 500 mg/ Sodium (Chloride) 50 mls @ 100 mls/hr IVPB TUTHSA [facility] PRN Reason: Protocol Insulin Aspart (Novolog Vial Sliding Scale -) 1 vial SQ TIDAC [facility] PRN Reason: Protocol Last Admin: 04/22/17 06:34 Dose: Not Given Insulin Detemir (Levemir Vial) 5 units SQ HS [facility] Metoprolol Succinate (Toprol Xl -) 25 mg PO BID [facility] Last Admin: 04/21/17 21:39 Dose: 25 mg Mirtazapine (Remeron -) 15 mg PO HS [facility] Last Admin: 04/21/17 21:38 Dose: 15 mg Multivit/Ca Carb/B Cmplx/FA/Prenat (Nephro-Rebecca -) 1 tablet PO DAILY [facility] Last Admin: 04/21/17 10:00 Dose: 1 tablet Non-Formulary Medication (Vit A/Vitamin D3/E/Aloe V/Zinc [Periguard Ointment]) 454 gm TP TID [facility] Nystatin (Nystop Powder -) 1 applic TP Q8H [facility] Last Admin: 04/22/17 04:04 Dose: 1 appful Sertraline HCl (Zoloft -) 100 mg PO DAILY [facility] Last Admin: 04/21/17 10:01 Dose: 100 mg 67 year old gentleman with PMhx of ESRD on HD (TTS), CAD, DM Type 2, Sacral Decubitis ulcers, recent enterococcus bacteremia on IV dapto with HD presented with complaints of SOB and admitted for suspected PNA. #ESRD on HD tolerating dialysis well today UF as tolerated #Hyperkalemia improved with dialysis low K renal diet #SOB secondary to volume overload +/- PNA UF as tolerated with HD on Daptomycin for VRE bacteremia was on Gent for the past 2 weeks as well ID following #Entercoccus Bacteremia on Daptomycin will continue IV Dapto with dialysis #CKD related Anemia continue WILY with HD no indication for transfusion Dominick Vanegas DO
[2017-04-22] MEDS: METOPROLOL SUCCINATE 25 MG TAB.SR.24H (FP) PO SCH ×2 (15:06→22:03)
[2017-04-22] MEDS: FINASTERIDE 5 MG TABLET (FP) PO SCH (15:06)
[2017-04-22] MEDS: VITAMIN B COMP W-C 1 EA TABLET PO SCH (15:06)
[2017-04-22] MEDS: SERTRALINE HCL 50 MG TABLET (FP) PO SCH (15:07)
[2017-04-22] MEDS: FUROSEMIDE 40 MG TABLET (FP) PO SCH (15:07)
[2017-04-22] MEDS: COLLAGENASE CLOSTRIDIUM HIST. 30 GRAMS TUBE TP SCH (15:10)
[2017-04-22] MEDS ORDERED: INSULIN DETEMIR 100 UNITS/ML MDV SQ SCH (22:00)
[2017-04-22] MEDS: MIRTAZAPINE 15 MG TABLET (FP) PO SCH (22:05)
[2017-04-23] MEDS: NYSTATIN POWDER 100,000 UNITS/GM - 15 GM TOPICAL POWDER TP SCH ×2 (03:05→12:26)
[2017-04-23] MEDS: INSULIN SLIDING SCALE (NOVOLOG) 1 VIAL SQ SCH ×2 (06:34→12:11)
--- NOTE | 2017-04-23 07:30 | PN ---
Progress Note (short form) - Note Progress Note: Vascular Surgery / Wound Care --> Tonio Longoria, DO Patient well know to [facility] as he is cared for by Dr. Longoria. Admitted with fluid overload --> ESRD on HD (poor compliance) Has know stage 3 sacral pressure ulcer --> clean. Granulating. No signs of infection Last Vital Signs Temp Pulse Resp BP Pulse Ox 98.8 F 85 20 103/67 96 04/23/17 06:00 04/23/17 06:00 04/23/17 06:00 04/23/17 06:00 04/22/17 21:00 CBC, BMP 04/22/17 09:20 04/22/17 09:20 Problem List - Problems (1) Sacral decubitus ulcer, stage III Assessment/Plan: Offload all pressure points. Frequent repositioning Optifoam dressing Cont medical management No need for surgical intervention HD per schedule On behalf of Dr. Longoria, thank you for the opportunity to participate in your patient's care Code(s): L89.153 - PRESSURE ULCER OF SACRAL REGION, STAGE 3
--- NOTE | 2017-04-23 08:28 | DS ---
Physical Examination Vital Signs: Vital Signs Temperature 98.8 F 04/23/17 06:00 Pulse Rate 85 04/23/17 06:00 Respiratory Rate 20 04/23/17 06:00 Blood Pressure 103/67 04/23/17 06:00 O2 Sat by Pulse Oximetry (%) 96 04/22/17 21:00 Findings/Remarks: feels well No complaints patient got dialysis yesterday and day before yesterday. Constitutional: Yes: No Distress, Calm Eyes: Yes: Conjunctiva Clear Neck: Yes: Supple Cardiovascular: Yes: Regular Rate and Rhythm Respiratory: Yes: CTA Bilaterally Gastrointestinal: Yes: Soft Edema: No Integumentary: Yes: Pressure Ulcer Neurological: Yes: Alert Labs: CBC, BMP 04/22/17 09:20 04/22/17 09:20 Discharge Summary Reason For Visit: SHORTNESS OF BREATH,CHRONIC OBSTRUCTION PULMONARY Current Active Problems COPD (chronic obstructive pulmonary disease) (Acute) Dialysis patient (Acute) Dyspnea (Acute) ESRD (end stage renal disease) on dialysis (Acute) Hyperkalemia (Acute) VRE bacteremia (Acute) Diabetes (Chronic) End stage kidney disease (Chronic) Hospital Course: very poorly compliant pt with ESRD/HD admitted with volume overload as he missed dialysis 2 Emergent dialysis 2 Now much better Stable for go back to custodial Medications reconciled Finished gentamicin course need to have daptomycin for another 22 days Discussed with nursing staff. I also had discussed with patient's brother yesterday--[place]--- [phone]-- Discharge time--- 30 minutes in documenting examining as well as coordinating care. Compliance stressed with patient Condition: Improved - Instructions Disposition: [facility] - Home Medications Comprehensive Discharge Medication List: Ambulatory Orders Acetaminophen [Tylenol] 650 mg PO QID PRN 04/21/17 Albuterol 0.083% Nebulizer Myrna [Ventolin 0.083% Nebulizer Soln -] 1 neb NEB QID PRN 04/21/17 Calcium Acetate [Phoslo -] 1,334 mg PO TIDCM 04/21/17 Collagenase Clostridium Hist. [Santyl -] 1 applic TP DAILY 04/21/17 Finasteride [Proscar -] 5 mg PO DAILY 04/21/17 Furosemide [Lasix -] 80 mg PO DAILY 04/21/17 Insulin (Levemir) [Levemir Flexpen -] 5 units SQ HS 04/21/17 Insulin (Novolog) [Novolog Flexpen -] 0 units SQ BIDAC 04/21/17 Metoprolol Succinate [Toprol Xl] 25 mg PO BID 04/21/17 Mirtazapine [Remeron -] 15 mg PO HS 04/21/17 Ondansetron [Zofran Odt -] 4 mg SL TID PRN 04/21/17 Sertraline HCl [Zoloft] 100 mg PO DAILY 04/21/17 Vit A/Vitamin D3/E/Aloe V/Zinc [Periguard Ointment] 454 gm TP TID 04/21/17 Vitamin B Comp W-C [Nephro-Rebecca -] 1 tablet PO DAILY 04/21/17 Daptomycin [Cubicin (Restricted To Id) -] 500 mg IV ASDIR #20 vial 04/23/17 Nystatin Powder [Nystop Powder -] 1 applic TP Q8H applic 04/23/17
[2017-04-23] MEDS: CALCIUM ACETATE 667 MG CAPSULE (FP) PO SCH ×2 (08:38→12:24)
[2017-04-23] MEDS: COLLAGENASE CLOSTRIDIUM HIST. 30 GRAMS TUBE TP SCH (09:41)
[2017-04-23] MEDS: VITAMIN B COMP W-C 1 EA TABLET PO SCH (09:41)
[2017-04-23] MEDS: SERTRALINE HCL 50 MG TABLET (FP) PO SCH ×2 (09:41→09:55)
[2017-04-23] MEDS: METOPROLOL SUCCINATE 25 MG TAB.SR.24H (FP) PO SCH (09:42)
[2017-04-23] MEDS: FUROSEMIDE 40 MG TABLET (FP) PO SCH (09:42)
[2017-04-23] MEDS: FINASTERIDE 5 MG TABLET (FP) PO SCH (09:42)
[2017-04-23] MEDS ORDERED: DAPTOMYCIN 500 MG in SODIUM CHLORIDE 100 ML IVPB SCH (10:00)
--- NOTE | 2017-04-23 10:40 | PN ---
Progress Note (short form) - Note Progress Note: s: no cp sob palps dizzy Current Medications Generic Name Dose Route Start Last Admin Trade Name Freq PRN Reason Stop Dose Admin Acetaminophen 650 mg 04/21/17 06:29 Tylenol - PO Q6H PRN FEVER Albuterol Sulfate 1 amp 04/21/17 06:29 Ventolin 0.083% Nebulizer Soln - NEB Q6H PRN SHORT OF BREATH/WHEEZING Calcium Acetate 1,334 mg 04/21/17 08:00 04/23/17 08:38 Phoslo - PO 1,334 mg TIDCM AKOSUA Administration Collagenase 1 applic 04/21/17 10:00 04/23/17 09:41 Santyl - TP 1 appful DAILY AKOSUA Administration Finasteride 5 mg 04/21/17 10:00 04/23/17 09:42 Proscar - PO 5 mg DAILY AKOSUA Administration Furosemide 80 mg 04/21/17 10:00 04/23/17 09:42 Lasix - PO 80 mg DAILY AKOSUA Administration Daptomycin 500 mg/ Sodium 50 mls @ 100 mls/hr 04/22/17 14:06 04/22/17 15:24 Chloride IVPB 100 mls/hr TUTHSA [facility] Administration Protocol Insulin Aspart 1 vial 04/21/17 07:00 04/23/17 06:34 Novolog Vial Sliding Scale - SQ Not Given TIDAC [facility] Protocol Insulin Detemir 5 units 04/22/17 22:00 04/22/17 22:02 Levemir Vial SQ 5 units HS AKOSUA Administration Metoprolol Succinate 25 mg 04/21/17 10:00 04/23/17 09:42 Toprol Xl - PO Not Given BID AKOSUA Mirtazapine 15 mg 04/21/17 22:00 04/22/17 22:05 Remeron - PO Not Given HS [facility] Multivit/Ca Carb/B Cmplx/FA/Prenat 1 tablet 04/21/17 10:00 04/23/17 09:41 Nephro-Rebecca - PO 1 tablet DAILY AKOSUA Administration Non-Formulary Medication 454 gm 04/21/17 14:00 Vit A/Vitamin D3/E/Aloe V/Zinc [Periguard Ointment] TP TID AKOSUA Nystatin 1 applic 04/21/17 11:00 04/23/17 03:05 Nystop Powder - TP 1 applic Q8H AKOSUA Administration Sertraline HCl 100 mg 04/21/17 10:00 04/23/17 09:55 Zoloft - PO Not Given DAILY AKOSUA Vital Signs Period Temp Pulse Resp BP Sys/Vogt Pulse Ox Last 24 Hr 98.0 F-99.0 F 80-93 18- 100-116/56-74 96 Constitutional: Yes: Well Nourished, No Distress Eyes: No: Sclera Icterus Respiratory: Yes: CTA Bilaterally, Rhonchi. No: Accessory Muscle Use, Rales, Wheezes Gastrointestinal: Yes: Normal Bowel Sounds. No: Distention, Hepatomegaly, Palpable Mass, Tenderness Cardiovascular: Yes: Regular Rate and Rhythm JVD: No Heart Sounds: Yes: S1, S2. No: Gallop Murmur: No: Systolic Murmur, Diastolic Murmur Extremities: No: Cold, Cyanosis Edema: No Integumentary: No: Jaundice Neurological: Yes: Alert, Oriented (x3) Psychiatric: No: Agitated - Other Data Labs, Other Data: CBC, BMP 04/22/17 09:20 04/22/17 09:20 tele: sr, occ pvcs MPI 01/28 (dipyridamole): no ST changes; inferior fixed defect (reverse distribution) thought to be 2/2 diaphragmatic attenuation. No ischemia/ infarct. Dilated left ventricle with severely reduced systolic function, global. EF 18%. Echo 04/04/17: sev LVE, sev decr LVEF. mod RVE, mod RV hypo. mod-severe MR ( eccentric). mod-sev TR. RVSP 40-50. no vegetation noted. Echo 04/02/2017: mod lve, sev dec lvef, 20%, global hk Echo 01/2017: 1+ concentric lvh. 1+ lve. LV fn severely reduced, global. nl rv size, mildly depressed fn. mod-sev eccentric MR. rvsp 40-50. Echo 09/2016: Sev LV dilation. Sev reduced LV function. (global). RV not well visualized. Mobile density c/w torn chordae (veg can't be excluded). Ao not well visualized. RVSP not assessed. (During hospital admit for sepsis) - NL LV function 01/2016. ECG 03/30, 03/31: NSR, ST-Ts anterolateral leads not signif changed vs prior . PVCs (ventric bigeminy on 03/31 strip) CXR: progressive R pulm and pleural changes a/p: 67 y.o. male with a PMH of HTN, HL, systolic cardiomyopathy, ESRD (on HD), chronic anemia, sacral debubitus ulcers, copd, and IDDM here with increased LE edema in setting of missed HD sessions. . VREF enterococcal bacteremia (NH-acquired): -dx'd 03/30, f/u BCx's negative at that time. -empiric prolonged abx course rec'd by ID -echo no vegetation seen. mod-severe MR not a new finding (present on 01/28 study as well, possibly due to torn chorda previously reported, vs decomp chf) -CT scan at that time with new splenic infarct, declined BETTY to look for signs of SBE, declined consideration of CT surgery regardless of findings. -low-grade fever (100.3) here--w/u per ID. sob, acute on chronic systolic chf, mitral regurg: -noted to have depressed EF during previous admit. cath deferred at that time due to pt preference, as well as admitted non-adherence pattern to meds (e.g. DAPT regimen), known significant anemia with h/o transfusions, and poor candidacy for CABG consideration given frailty, poor mobility with decubitus ulcers, etc. -01/28 stress test without ischemia. -cont metoprolol, nitrates low dose per prior regimen, as bp permits. no ELIOT sec to hyperkalemia. isordil started here. bp stable, consider hydralazine -CXR with probable congestion component in setting of missed HD -trop negative x 2, do not suspect ACS clinically. ECG not yet in chart or [place]- -f/u once completed. -volume management per HD/UF, as per renal recs -no JVD or appreciable edema on exam--r/o pneumonia, per ID and pulmonary teams -ICD discussion previously deferred until bacteremia is fully treated; however, in light of pt stated wishes to minimize invasive procedures, he may not be interested in proceeding. it is equivocal in light of his severe comorbidities, despite relatively young age, whether ICD will alter his prognosis. discussion deferred until infection is confidently controlled. 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 -currently H/H stabe at baseline cardiac taveras remains stable
[2017-04-23 13:46] VITALS: BP 110/70; PULSE 85; TEMP 98.2
--- NOTE | 2017-04-23 15:42 | PN ---
Progress Note (short form) - Note Progress Note: Renal follow up for ESRD on HD PT seen and examined in tele no acute complaints s/p dialysis yesterday Vital Signs Temperature 98.2 F 04/23/17 12:10 Pulse Rate 85 04/23/17 12:10 Respiratory Rate 19 04/23/17 12:10 Blood Pressure 110/70 04/23/17 12:10 O2 Sat by Pulse Oximetry (%) 96 04/22/17 21:00 Intake & Output 04/20/17 04/21/17 04/22/17 04/23/17 23:59 23:59 23:59 23:59 Intake Total 490 1230 210 Balance 490 1230 210 Weight 82.826 kg 79.832 kg 78.075 kg NAD RRR CTA soft NT/ND no Le edema CBC, BMP 04/22/17 09:20 04/22/17 09:20 67 year old gentleman with PMhx of ESRD on HD (TTS), CAD, DM Type 2, Sacral Decubitis ulcers, recent enterococcus bacteremia on IV dapto with HD presented with complaints of SOB and admitted for suspected PNA. #ESRD on HD s/p dialysis the last 2 days no indication for SEASONAL RECRUITER today next dialysis as outpatient #Hyperkalemia improved with dialysis low K renal diet #SOB secondary to volume overload +/- PNA clinically improved with UF #Entercoccus Bacteremia on Daptomycin will continue IV Dapto with dialysis #CKD related Anemia continue WILY with HD no indication for transfusion Dominick Vanegas DO
== END 2017-04-23 14:47 | DRG 291 ==
LOC: JER 00:02 → JERBED 02:21 → J2W 04:02
PROVIDERS: ADMIT Internal Medicine; ATTEND Internal Medicine
PROC: 5A1D70Z Performance of Urinary Filtration, Intermittent, Less than 6 Hours Per Day (ICD-10-PCS; principal; 2017-04-21)
DX: I13.2 Hypertensive heart and chronic kidney disease with heart failure and with stage 5 chronic kidney disease, or end stage renal disease (principal); N18.6 End stage renal disease; I50.23 Acute on chronic systolic (congestive) heart failure; L89.154 Pressure ulcer of sacral region, stage 4; J18.9 Pneumonia, unspecified organism; R78.81 Bacteremia; J44.9 Chronic obstructive pulmonary disease, unspecified; I25.2 Old myocardial infarction; N40.0 Benign prostatic hyperplasia without lower urinary tract symptoms; F32.89 Other specified depressive episodes; E87.5 Hyperkalemia; D63.8 Anemia in other chronic diseases classified elsewhere; E11.42 Type 2 diabetes mellitus with diabetic polyneuropathy; E11.65 Type 2 diabetes mellitus with hyperglycemia; I27.20 Pulmonary hypertension, unspecified; I42.8 Other cardiomyopathies; I34.0 Nonrheumatic mitral (valve) insufficiency; E11.22 Type 2 diabetes mellitus with diabetic chronic kidney disease; Z99.2 Dependence on renal dialysis; Z79.4 Long term (current) use of insulin; Z87.891 Personal history of nicotine dependence; Z91.15 Patient's noncompliance with renal dialysis
CPT/HCPCS: 36415; 36600; 71045-TC; 80048; 80053; 82375; 82550; 82803; 82962; 83050; 83605; 83735; 84100; 84484; 85025; 85027; 85610; 85730; 87040; 93005; 93010; 99285-25; J0878; J0885

== ENCOUNTER 2017-05-24 03:02 | Inpatient (IN) | payer OTHER ==
--- NOTE | 2017-05-24 03:19 | PDOC ---
History of Present Illness - General Stated Complaint: OXYGEN LEVEL LOW Time Seen by Provider: 05/24/17 03:19 - History of Present Illness Initial Comments: 67 year old male with PMH of ESRD (,,), CHF, on home O2, COPD, HTN, [place], IDDM, abd triple A repair who was BIB[facility] to the emergency department with SOB "r/o pneumonia". He has been SOB since yesterday. Sttes that his dialysis session was cut short from usual 3 hours 30 minutes to 1 hours 20 minutes. It was cut short due to transportation issues. His personal complaints are SOB that improved since arrival to the ED and generally "feeling lousy". Denies fevers, chills, nausea, vomiting, diarrhea, constipation, chest pain, cough, or other symptoms. PCP is Burke. 05/24/17 03:42 Past History - Past Medical History Allergies/Adverse Reactions: Allergies Allergy/AdvReac Type Severity Reaction Status Date / Time No Known Allergies Allergy Verified 04/21/17 00:40 Home Medications: Ambulatory Orders Acetaminophen [Tylenol] 650 mg PO QID PRN 04/21/17 Albuterol 0.083% Nebulizer Myrna [Ventolin 0.083% Nebulizer Soln -] 1 neb NEB QID PRN 04/21/17 Calcium Acetate [Phoslo -] 1,334 mg PO TIDCM 04/21/17 Collagenase Clostridium Hist. [Santyl -] 1 applic TP DAILY 04/21/17 Finasteride [Proscar -] 5 mg PO DAILY 04/21/17 Furosemide [Lasix -] 80 mg PO DAILY 04/21/17 Insulin (Levemir) [Levemir Flexpen -] 5 units SQ HS 04/21/17 Insulin (Novolog) [Novolog Flexpen -] 0 units SQ BIDAC 04/21/17 Metoprolol Succinate [Toprol Xl] 25 mg PO BID 04/21/17 Mirtazapine [Remeron -] 15 mg PO HS 04/21/17 Ondansetron [Zofran Odt -] 4 mg SL TID PRN 04/21/17 Sertraline HCl [Zoloft] 100 mg PO DAILY 04/21/17 Vit A/Vitamin D3/E/Aloe V/Zinc [Periguard Ointment] 454 gm TP TID 04/21/17 Vitamin B Comp W-C [Nephro-Rebecca -] 1 tablet PO DAILY 04/21/17 Nystatin Powder [Nystop Powder -] 1 applic TP Q8H applic 04/23/17 Isosorbide Dinitrate [Isordil -] 10 mg PO BID 05/24/17 Lactobacillus Acidophilus [Bacid -] 1 each PO BID 05/24/17 Anemia: Yes Asthma: Yes Cancer: No Cardiac Disorders: Yes ([place] January 2016) CVA: No COPD: Yes CHF: Yes Dementia: No Diabetes: Yes Dialysis: Yes GI Disorders: No Disorders: Yes (BPH.) HTN: Yes Hypercholesterolemia: No Kidney Stones: (ESRD.) Liver Disease: No Psychiatric Problems: Yes (DEPRESSION.) Seizures: No Thyroid Disease: No - Surgical History Abdominal Surgery: No Appendectomy: No Cardiac Surgery: No Cholecystectomy: No Lung Surgery: No Neurologic Surgery: No Orthopedic Surgery: No - Suicide/Smoking/Psychosocial Hx Smoking History: Former smoker Have you smoked in the past 12 months: No Number of Cigarettes Smoked Daily: 20 If you are a former smoker, when did you quit?: january 2016 'Breaking Loose' booklet given: 08/12/16 Hx Alcohol Use: No Drug/Substance Use Hx: No Substance Use Type: None Hx Substance Use Treatment: No Review of Systems - Review of Systems Constitutional: No: Chills, Diaphoresis, Fever HEENTM: No: Tearing, Recent change in vision Respiratory: Yes: Shortness of Breath. No: Cough, Wheezing, Productive cough Cardiac (ROS): No: Chest Pain, Irregular Heart Rate ABD/GI: No: Diarrhea, Nausea, Vomiting : No: Burning, Dysuria, Discharge, Hematuria Musculoskeletal: Yes: Back Pain. No: Joint Swelling, Muscle Pain Integumentary: No: Bruising, Change in Color, Erythema, Flushing, Lesions, Lumps Neurological: No: Headache, Numbness, Paresthesia Psychiatric: No: Anxiety *Physical Exam - Physical Exam General Appearance: Yes: Appropriately Dressed, Thin. No: Apparent Distress HEENT: positive: EOMI, ABA, Normal Voice. negative: Normal ENT Inspection ( oor dentition ) Neck: positive: Trachea midline, Normal Thyroid, Rigid, Supple. negative: Tender Respiratory/Chest: negative: Chest Tender, Lungs Clear (wheezes and faint crackles bilaterally at the bases.), Normal Breath Sounds, Respiratory Distress Cardiovascular: positive: Regular Rhythm, Regular Rate Gastrointestinal/Abdominal: positive: Normal Bowel Sounds, Flat, Soft. negative : Tender Musculoskeletal: positive: Normal Inspection, Decreased Range of Motion ( overlal very weak) Extremity: positive: Normal Capillary Refill, Normal Inspection, Tender (tender inles because of decreaed mobility and chronic deconditioning). negative: Normal Range of Motion Integumentary: positive: Normal Color, Dry, Warm Neurologic: positive: Fully Oriented, Alert, Normal Mood/Affect ED Treatment Course - LABORATORY CBC & Chemistry Diagram: 05/24/17 09:15 05/24/17 14:30 Medical Decision Making - Medical Decision Making 67 year presenting with subjective SOB but doing well on NC in the ED after a shortened dialysis session one day prior. EKG was unchanged from 04/21/[address] wave changes but overall NSR. Labs demonstrating an elevated Troponin to 0.07 and BNP of 529K which is twice as much as his highest recorded level. patient was admitted to tele admission for dialysis and cardiac workup. *DC/Admit/Observation/Transfer Diagnosis at time of Disposition: SOB (shortness of breath), Elevated troponin I level - Referrals - Patient Instructions - Post Discharge Activity
[2017-05-24 03:33] LABS: BASO % 0.6 % (0-2.0); EOS % 0.3 % (0-4.5); HEMATOCRIT 32.2 % (35.4-49); LYMPH % 15.9 % (8-40); MCH 27.7 pg (25.7-33.7); MCHC 30.9 g/dl (32.0-35.9); MEAN CELL VOLUME 89.6 fl (80-96); MEAN PLT VOLUME 7.8 fl (7.5-11.1); MONO % 6.7 % (3.8-10.2); NEUT % 76.5 % (42.8-82.8); PLATELET COUNT 121 K/MM3 (134-434); RBC 3.59 M/mm3 (4.00-5.60); RDW 18.4 % (11.9-15.9); WHITE BLOOD COUNT 7.8 K/mm3 (4.0-10.0)
--- NOTE | 2017-05-24 03:35 | PDOC ---
Attending Attestation - Resident Resident Name: FelicianoAmintadextergena - ED Attending Attestation I have performed the following: I have examined & evaluated the patient, The case was reviewed & discussed with the resident, I agree w/resident's findings & plan, Exceptions are as noted - HPI HPI: 05/24/17 06:06 67y M hx of ESRD (, , Fri), CHF, COPD< HTN, [place], IDDM, AAA s/p repair present from [facility] for compalint of hypoxia/sob. Pt states that his dialysis session on was cut short and has been feeling sob since yesterday. Endorses some cough. deneis any cp, fever/chills, n/v. On exam pt appears mildly tachypneic, but speaking compelte sentences mild rales at the bases bilatearlly w/o focality comfortable on nc 2L suspect fluid overload labs reviewed will obs for dialysis - Physicial Exam PE: 05/24/17 07:34 see [email or web address] - Medical Decision Making 05/24/17 07:34 see above Heart Score/ECG Review - ECG Impressions Comment:: 05/24/17 07:36 Twelve-lead EKG was performed and reviewed by me. There is normal sinus rhythm with a rate of 114 The axis is normal. There is abnormal R wave progression
[2017-05-24] MEDS ORDERED: ALBUTEROL SO4 2.5/IPRATROPIUM 0.5 INH SOL 3 ML VIAL.NEB. NEB ONE ×2 (04:08→08:22)
[2017-05-24 04:30] LABS: ALBUMIN 1.8 g/dl (3.4-5.0); ANION GAP 11 (8-16); BLOOD UREA NITROGEN 41 mg/dL (7-18); CHLORIDE 100 mmol/L (98-107); CO2 22 mmol/L (21-32); CREATININE 4.1 mg/dL (0.7-1.3); GLUCOSE,RANDOM 147 mg/dL (74-106); POTASSIUM 5.4 mmol/L (3.5-5.1); SGOT/AST 10 U/L (15-37); SGPT/ALT 11 U/L (12-78); SODIUM 133 mmol/L (136-145)
[2017-05-24 04:32] LABS: ALK PHOS 121 U/L (45-117); BILIRUBIN,TOTAL 0.6 mg/dL (0.2-1.0); TOT PROT 6.4 g/dl (6.4-8.2)
[2017-05-24 05:33] LABS: N-TERMINAL BNP 529570.05 pg/ml (5-125)
[2017-05-24] MEDS ORDERED: FUROSEMIDE 40 MG/4 ML INJECTABLE VIAL IVPUSH ONE (06:41)
--- NOTE | 2017-05-24 06:42 | HP ---
CHIEF COMPLAINT: Sob PCP: [email or web address] HISTORY OF PRESENT ILLNESS: This is a 67 year old male with multiple medical problems significant for ESRD on dialysis, CHF, COPD, O2 dependent who presented to the ED with SOB. Pt told the ED he only received a partial treatment on due to transportation issues. He received 1h20m of a usual 3.5 hour treatment. Pt reports feeling better upon exam. ER course was notable for: (1) BNP 529,000 (2) trop 0.07 (3) Potassium 5.4 Recent Travel: pt denies PAST MEDICAL HISTORY: ESRD on HD TuThSa, CHF, HTN, [place] 01/27, COPD O2 dependent, IDDM, BPH, depression , VRE bacteremia (should have completed treatment 05/13/17), ESBL PAST SURGICAL HISTORY: AAA repair cholecystectomy Social History: Smoking: pt denies presently, previous Alcohol: pt denies Drugs: pt denies Allergies No Known Allergies Allergy (Verified 04/21/17 00:40) HOME MEDICATIONS: 3 Medication Instructions Recorded Acetaminophen [Tylenol] 650 mg PO QID PRN 04/21/17 Albuterol 0.083% Nebulizer Myrna 1 neb NEB QID PRN 04/21/17 [Ventolin 0.083% Nebulizer Soln -] Calcium Acetate [Phoslo -] 1,334 mg PO TIDCM 04/21/17 Collagenase Clostridium Hist. 1 applic TP DAILY 04/21/17 [Santyl -] Finasteride [Proscar -] 5 mg PO DAILY 04/21/17 Furosemide [Lasix -] 80 mg PO DAILY 04/21/17 Insulin (Levemir) [Levemir Flexpen 5 units SQ HS 04/21/17 -] Insulin (Novolog) [Novolog Flexpen 0 units SQ BIDAC 04/21/17 -] Metoprolol Succinate [Toprol Xl] 25 mg PO BID 04/21/17 Mirtazapine [Remeron -] 15 mg PO HS 04/21/17 Ondansetron [Zofran Odt -] 4 mg SL TID PRN 04/21/17 Sertraline HCl [Zoloft] 100 mg PO DAILY 04/21/17 Vit A/Vitamin D3/E/Aloe V/Zinc 454 gm TP TID 04/21/17 [Periguard Ointment] Vitamin B Comp W-C [Nephro-Rebecca -] 1 tablet PO DAILY 04/21/17 Nystatin Powder [Nystop Powder -] 1 applic TP Q8H applic 04/23/17 Isosorbide Dinitrate [Isordil -] 10 mg PO BID 05/24/17 Lactobacillus Acidophilus [Bacid -] 1 each PO BID 05/24/17 REVIEW OF SYSTEMS CONSTITUTIONAL: Absent: fever, chills, diaphoresis, generalized weakness, malaise, loss of appetite, weight change HEENT: Absent: rhinorrhea, nasal congestion, throat pain, throat swelling, difficulty swallowing, mouth swelling, ear pain, eye pain, visual changes CARDIOVASCULAR: Absent: chest pain, syncope, palpitations, irregular heart rate, lightheadedness , peripheral edema RESPIRATORY: Present: shortness of breath Absent: cough, dyspnea with exertion, orthopnea, wheezing, stridor, hemoptysis GASTROINTESTINAL: Absent: abdominal pain, abdominal distension, nausea, vomiting, diarrhea, constipation, melena, hematochezia GENITOURINARY: Absent: dysuria, frequency, urgency, hesitancy, hematuria, flank pain, genital pain MUSCULOSKELETAL: Absent: myalgia, arthralgia, joint swelling, back pain, neck pain SKIN: Absent: rash, itching, pallor HEMATOLOGIC/IMMUNOLOGIC: Absent: easy bleeding, easy bruising, lymphadenopathy, frequent infections ENDOCRINE: Absent: unexplained weight gain, unexplained weight loss, heat intolerance, cold intolerance NEUROLOGIC: Absent: headache, focal weakness or paresthesias, dizziness, unsteady gait, seizure, mental status changes, bladder or bowel incontinence PSYCHIATRIC: Absent: anxiety, depression, suicidal or homicidal ideation, hallucinations. PHYSICAL EXAMINATION Vital Signs - 24 hr 3 05/24/17 05/24/17 05/24/17 03:03 03:46 03:47 Temperature 98.5 F Pulse Rate 113 H 112 H Respiratory 22 Rate Blood Pressure 109/69 O2 Sat by Pulse 90 L 98 Oximetry (%) GENERAL: Awake, alert, and fully oriented, in no acute distress. HEAD: Normal with no signs of trauma. EYES: Pupils equal, round and reactive to light, extraocular movements intact, sclera anicteric, conjunctiva clear. No lid lag. EARS, NOSE, THROAT: Ears normal, nares patent, oropharynx clear without exudates. Moist mucous membranes. NECK: Normal range of motion, supple without lymphadenopathy, JVD, or masses. LUNGS: crackles on right>left (pt is positioned right side lying). No wheezes. No accessory muscle use. HEART: Regular rate and rhythm, normal S1 and S2 without murmur, rub or gallop. ABDOMEN: Soft, nontender, not distended, normoactive bowel sounds, no guarding, no rebound, no masses. No hepatomegaly or splenomegaly. MUSCULOSKELETAL: Normal range of motion at all joints. No bony deformities or tenderness. No CVA tenderness. UPPER EXTREMITIES: 2+ pulses, warm, well-perfused. No cyanosis. No clubbing. No peripheral edema. LOWER EXTREMITIES: 2+ pulses, warm, well-perfused. No calf tenderness. 1+ peripheral edema B/L. NEUROLOGICAL: Cranial nerves II-XII intact. Normal speech. Normal gait. PSYCHIATRIC: Cooperative. Good eye contact. Appropriate mood and affect. SKIN: Warm, dry, normal turgor, no rashes or lesions noted, normal capillary refill. multiple PU: sacrum 6.1x 7.6 x 1.4cm wound bed pink, scattered slough, wound edges macerated and curled; L ischium 3.3cm x 3.1cm x 1.1cm wound bed pink , scattered slough; R ischium 6.7 x 6.0 x 2.2cm wound bed pink, tunnelling noted on edges; L hip with DTI 2cm x 1cm Laboratory Results - last 24 hr 3 05/24/17 05/24/17 03:20 03:20 WBC 7.8 RBC 3.59 L Hgb 10.0 L Hct 32.2 L MCV 89.6 MCH 27.7 MCHC 30.9 L RDW 18.4 H D Plt Count 121 L D MPV 7.8 Neutrophils % 76.5 Lymphocytes % 15.9 Monocytes % 6.7 Eosinophils % 0.3 Basophils % 0.6 Sodium 133 L Potassium 5.4 H Chloride 100 Carbon Dioxide 22 D Anion Gap 11 BUN 41 H Creatinine 4.1 H Creat Clearance w eGFR 14.63 Random Glucose 147 H Calcium 7.0 L Total Bilirubin 0.6 AST 10 L ALT 11 L Alkaline Phosphatase 121 H Creatine Kinase 27 L Troponin I 0.07 H D B-Natriuretic Peptide 211238.05 H Total Protein 6.4 Albumin 1.8 L ECG sinus tachy, vent rate [address] depression V6, TWI V6 ASSESSMENT/PLAN: 67yM with PMH ESRD on HD TuThSa, CHF, HTN, [place] 01/27, COPD O2 dependent, IDDM, BPH, depression, VRE bacteremia (should have completed treatment 05/13/17), ESBL presented with SOB after abbreviated dialysis session on . Fluid overload due to missed dialysis/CHF - lasix 80mg IVP - elevated BNP-profound elevation likely due to renal disease - renal consult Mild hyperkalemia - no peaked t waves - renal consult for dialysis - BMP at 9am Elevated troponin - will trend, likely elevated due to renal disease - consider cardiology consult COPD - duonebs q6h - O2 2LNC IDDM - cont levemir with novolog SS BPH - cont flomax depression - cont remeron DVT PPX - deferred for now FEN - dialysis pt - BMP @ 9 with trop - Diabetic/low sodium renal diet Dispo: Pt currently requires further observation for management of his emergent condition Visit type - Emergency Visit Emergency Visit: Yes ED Registration Date: 05/24/17 Care time: The patient presented to the Emergency Department on the above date and was hospitalized for further evaluation of their emergent condition. - New Patient This patient is new to me today: Yes Date on this admission: 05/24/17 - Critical Care Critical Care patient: No
[2017-05-24] MEDS ORDERED: NYSTATIN POWDER 100,000 UNITS/GM - 15 GM TOPICAL POWDER TP SCH (06:45)
[2017-05-24] MEDS ORDERED: ONDANSETRON *ODT* 4 MG TABLET SL PRN (06:45)
[2017-05-24] MEDS: ALBUTEROL SO4 2.5/IPRATROPIUM 0.5 INH SOL 3 ML VIAL.NEB. NEB SCH ×2 (08:00→22:12)
--- NOTE | 2017-05-24 08:49 | EKG ---
Test Reason : Blood Pressure : / mmHG Vent. Rate : 114 BPM Atrial Rate : 114 BPM P-R Int : 132 ms QRS Dur : 100 ms QT Int : 334 ms P-R-T Axes : 072 043 117 degrees QTc Int : 460 ms SINUS TACHYCARDIA POSSIBLE ANTERIOR INFARCT , AGE UNDETERMINED ABNORMAL ECG WHEN COMPARED WITH ECG OF 21-APR-2017 11:11, NO SIGNIFICANT CHANGE WAS FOUND Confirmed by ALEC STALLINGS MD ([id number]) on 05/24/2017 8:49:14 AM Referred By: Confirmed By:ALEC STLALINGS MD
[2017-05-24 09:21] VITALS: BMI 22.1
[2017-05-24 09:50] LABS: BASO % 0.4 % (0-2.0); EOS % 0.2 % (0-4.5); HEMATOCRIT 29.6 % (35.4-49); HEMOGLOBIN 9.3 GM/dL (11.7-16.9); LYMPH % 21.9 % (8-40); MCH 27.6 pg (25.7-33.7); MCHC 31.2 g/dl (32.0-35.9); MEAN CELL VOLUME 88.4 fl (80-96); MEAN PLT VOLUME 7.1 fl (7.5-11.1); MONO % 7.7 % (3.8-10.2); NEUT % 69.8 % (42.8-82.8); PLATELET COUNT 100 K/MM3 (134-434); RBC 3.35 M/mm3 (4.00-5.60); WHITE BLOOD COUNT 6.7 K/mm3 (4.0-10.0)
[2017-05-24 10:04] LABS: ANION GAP 9 (8-16); BLOOD UREA NITROGEN 44 mg/dL (7-18); CHLORIDE 100 mmol/L (98-107); CO2 24 mmol/L (21-32); CREATININE 4.1 mg/dL (0.7-1.3); GLUCOSE,RANDOM 160 mg/dL (74-106); PHOSPHOROUS 5.6 mg/dL (2.5-4.9); POTASSIUM 5.2 mmol/L (3.5-5.1); SODIUM 133 mmol/L (136-145)
[2017-05-24 10:09] LABS: CALCIUM 6.9 mg/dL (8.5-10.1)
[2017-05-24] MEDS: LACTOBACILLUS ACIDOPHILUS 1 EACH TAB (FP) PO SCH ×3 (10:24→22:09)
[2017-05-24] MEDS: SERTRALINE HCL 50 MG TABLET (FP) PO SCH ×2 (10:24→10:31)
[2017-05-24] MEDS: metoPROLOL SUCCINATE 25 MG TAB.SR.24H (FP) PO SCH ×3 (10:24→22:10)
[2017-05-24] MEDS: CALCIUM ACETATE 667 MG CAPSULE (FP) PO SCH ×3 (10:25→16:48)
[2017-05-24] MEDS: VITAMIN B COMP W-C 1 EA TABLET PO SCH ×2 (10:26→10:31)
[2017-05-24] MEDS: INSULIN SLIDING SCALE (NOVOLOG) 1 VIAL SQ SCH ×3 (12:26→22:22)
--- NOTE | 2017-05-24 12:42 | CONSULT ---
Consult Consult Specialty:: Nephrology ( Jose/ Guilherme) Reason for Consultation:: 67y M hx of ESRD, CHF, COPD, HTN, LA, IDDM, AAA s/p repair present from [facility] with complaints of hypoxia/sob. He did not get his full dialysis treatment on . - History of Present Illness Chief Complaint: Shortness of breath in an ESRD patient who did not get his full treatment on . 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 Cardio/Vascular: Yes: HTN Pulmonary: Yes: COPD Renal/: Yes: Renal Failure, Renal Inusuff, Hemodialysis Musculoskeletal: Yes: Other (sacral/ischial DUs) Endocrine: Yes: Diabetes Mellitus - Past Surgical History Past Surgical History: Yes: Cholecystectomy - Alcohol/Substance Use Hx Alcohol Use: No History of Substance Use: reports: None - Smoking History Smoking history: Former smoker Have you smoked in the past 12 months: No Aproximately how many cigarettes per day: 20 If you are a former smoker, when did you quit?: january 2016 - Social History Usual Living Arrangement: With Significant Other ADL: Independent History of Recent Travel: No Home Medications - Allergies Allergies/Adverse Reactions: Allergies Allergy/AdvReac Type Severity Reaction Status Date / Time No Known Allergies Allergy Verified 04/21/17 00:40 - Home Medications Home Medications: Ambulatory Orders Acetaminophen [Tylenol] 650 mg PO QID PRN 04/21/17 Albuterol 0.083% Nebulizer Myrna [Ventolin 0.083% Nebulizer Soln -] 1 neb NEB QID PRN 04/21/17 Calcium Acetate [Phoslo -] 1,334 mg PO TIDCM 04/21/17 Collagenase Clostridium Hist. [Santyl -] 1 applic TP DAILY 04/21/17 Finasteride [Proscar -] 5 mg PO DAILY 04/21/17 Furosemide [Lasix -] 80 mg PO DAILY 04/21/17 Insulin (Levemir) [Levemir Flexpen -] 5 units SQ HS 04/21/17 Insulin (Novolog) [Novolog Flexpen -] 0 units SQ BIDAC 04/21/17 Metoprolol Succinate [Toprol Xl] 25 mg PO BID 04/21/17 Mirtazapine [Remeron -] 15 mg PO HS 04/21/17 Ondansetron [Zofran Odt -] 4 mg SL TID PRN 04/21/17 Sertraline HCl [Zoloft] 100 mg PO DAILY 04/21/17 Vit A/Vitamin D3/E/Aloe V/Zinc [Periguard Ointment] 454 gm TP TID 04/21/17 Vitamin B Comp W-C [Nephro-Rebecca -] 1 tablet PO DAILY 04/21/17 Nystatin Powder [Nystop Powder -] 1 applic TP Q8H applic 04/23/17 Isosorbide Dinitrate [Isordil -] 10 mg PO BID 05/24/17 Lactobacillus Acidophilus [Bacid -] 1 each PO BID 05/24/17 Review of Systems - Review of Systems Constitutional: reports: Weakness Cardiovascular: reports: Shortness of Breath Respiratory: reports: Cough, Orthopnea Gastrointestinal: denies: Constipation, Dysphagia Musculoskeletal: reports: Back Pain Integumentary: reports: Wound (Chronic leg and sacral ulcers) Physical Exam Vital Signs: Vital Signs Temperature 98 F 05/24/17 09:13 Pulse Rate 102 H 05/24/17 09:13 Respiratory Rate 22 05/24/17 09:13 Blood Pressure 103/69 05/24/17 09:13 O2 Sat by Pulse Oximetry (%) 96 05/24/17 10:43 Constitutional: Yes: Mild Distress, Pallor Eyes: Yes: Conjunctiva Clear HENT: Yes: Normocephalic Neck: Yes: Trachea Midline Cardiovascular: Yes: S1, S2 Respiratory: Yes: Diminished, On Nasal O2, Poor Air Entry, Rales, Rhonchi Gastrointestinal: Yes: Normal Bowel Sounds, Soft. No: Tenderness, Epigastrium, Tenderness, Rebound Musculoskeletal: Yes: Back Pain Edema: Yes Integumentary: Yes: Pressure Ulcer Neurological: Yes: Alert, Oriented, Lethargy Labs: CBC, BMP 05/24/17 09:15 05/24/17 09:15 Problem List - Problems (1) CHF (congestive heart failure) Code(s): I50.9 - HEART FAILURE, UNSPECIFIED (2) COPD (chronic obstructive pulmonary disease) Code(s): J44.9 - CHRONIC OBSTRUCTIVE PULMONARY DISEASE, UNSPECIFIED Qualifiers: COPD type: unspecified COPD Qualified Code(s): J44.9 - Chronic obstructive pulmonary disease, unspecified (3) Diabetes 1.5, managed as type 1 Code(s): E13.9 - OTHER SPECIFIED DIABETES MELLITUS WITHOUT COMPLICATIONS (4) Sacral pressure ulcer Code(s): L89.159 - PRESSURE ULCER OF SACRAL REGION, UNSPECIFIED STAGE (5) Sepsis Code(s): A41.9 - SEPSIS, UNSPECIFIED ORGANISM (6) Anemia Code(s): D64.9 - ANEMIA, UNSPECIFIED Qualifiers: Anemia type: unspecified type Qualified Code(s): D64.9 - Anemia, unspecified (7) Diabetes Code(s): E11.9 - TYPE 2 DIABETES MELLITUS WITHOUT COMPLICATIONS Qualifiers: Diabetes mellitus type: type 2 Diabetes mellitus complication status: with hyperglycemia Diabetes mellitus fdc insulin use: with fdc use Qualified Code(s): E11.65 - Type 2 diabetes mellitus with hyperglycemia; Z79.4 - buttermaker continuous churn (current) use of insulin; Z79.4 - alf (current) use of insulin ; Z79.4 - alf (current) use of insulin; Z79.4 - alf (current) use of insulin (8) End stage kidney disease Code(s): N18.6 - END STAGE RENAL DISEASE (9) Sacral decubitus ulcer, stage III Code(s): L89.153 - PRESSURE ULCER OF SACRAL REGION, STAGE 3 Assessment/Plan 67y M hx of ESRD , CHF, COPD, HTN, LA, IDDM, AAA s/p repair present from [facility] for compalint of hypoxia/sob. The patient had incomplete dialysis on . ESRD... Will have HD in the ICU today. Orders written and reviewed with the RN. Concur with the management under way. Thank you. Chichi Garcia MD
[2017-05-24] MEDS ORDERED: EPOETIN ALFA 10,000 UNIT/1 ML VIAL IVPUSH ONE (12:45)
[2017-05-24] MEDS: ISOSORBIDE DINITRATE 10 MG TABLET (FP) PO SCH ×2 (13:37→17:45)
[2017-05-24] MEDS: FINASTERIDE 5 MG TABLET (FP) PO SCH (13:40)
[2017-05-24] MEDS ORDERED: PATIENT'S OWN MEDICATION (NON-FORMULARY) (Vit A/Vitamin D3/E/Aloe V/Zinc [Periguard Ointme TP SCH (14:00)
[2017-05-24 15:51] LABS: CREATININE 2.3 mg/dL (0.7-1.3)
[2017-05-24] MEDS: COLLAGENASE CLOSTRIDIUM HIST. 30 GRAMS TUBE TP SCH (16:47)
[2017-05-24] MEDS: NYSTATIN POWDER 100,000 UNITS/GM - 15 GM TOPICAL POWDER TP SCH ×2 (16:47→22:10)
[2017-05-24] MEDS: ACETAMINOPHEN 325 MG TABLET (FP) PO PRN (22:09)
[2017-05-24] MEDS: MIRTAZAPINE 15 MG TABLET (FP) PO SCH (22:10)
[2017-05-24] MEDS ORDERED: HEMOQUE TEST 1 EACH EACH ONE (22:13)
[2017-05-24] MEDS: INSULIN DETEMIR 100 UNITS/ML MDV SQ SCH (22:21)
[2017-05-25] MEDS ORDERED: QUEtiapine FUMARATE 25 MG TABLET (FP) PO PRN (01:08)
[2017-05-25] MEDS: INSULIN SLIDING SCALE (NOVOLOG) 1 VIAL SQ SCH ×4 (06:32→23:22)
[2017-05-25] MEDS: NYSTATIN POWDER 100,000 UNITS/GM - 15 GM TOPICAL POWDER TP SCH ×3 (06:32→22:44)
[2017-05-25] MEDS: ALBUTEROL SO4 2.5/IPRATROPIUM 0.5 INH SOL 3 ML VIAL.NEB. NEB SCH ×4 (07:35→20:52)
[2017-05-25] MEDS: CALCIUM ACETATE 667 MG CAPSULE (FP) PO SCH ×3 (09:48→17:30)
[2017-05-25] MEDS: SERTRALINE HCL 50 MG TABLET (FP) PO SCH (10:07)
[2017-05-25] MEDS: ISOSORBIDE DINITRATE 10 MG TABLET (FP) PO SCH ×2 (10:07→17:25)
[2017-05-25] MEDS: VITAMIN B COMP W-C 1 EA TABLET PO SCH (10:07)
[2017-05-25] MEDS: LACTOBACILLUS ACIDOPHILUS 1 EACH TAB (FP) PO SCH ×2 (10:07→22:39)
[2017-05-25] MEDS: metoPROLOL SUCCINATE 25 MG TAB.SR.24H (FP) PO SCH ×2 (10:07→22:44)
[2017-05-25] MEDS: COLLAGENASE CLOSTRIDIUM HIST. 30 GRAMS TUBE TP SCH (10:08)
--- NOTE | 2017-05-25 11:28 | PN ---
Progress Note, Physician Chief Complaint: events noted Pt examined no distress refused his meds yesterday - Current Medication List Current Medications: Active Medications Acetaminophen (Tylenol -) 650 mg PO QID PRN PRN Reason: FEVER Last Admin: 05/24/17 22:09 Dose: 650 mg Albuterol/Ipratropium (Duoneb -) 1 amp NEB RQID [facility] Last Admin: 05/25/17 11:14 Dose: 1 amp Calcium Acetate (Phoslo -) 1,334 mg PO TIDCM [facility] Last Admin: 05/25/17 09:48 Dose: 1,334 mg Collagenase (Santyl -) 1 applic TP DAILY [facility] Last Admin: 05/25/17 10:08 Dose: 1 applic Finasteride (Proscar -) 5 mg PO DAILY [facility] Last Admin: 05/24/17 13:40 Dose: Not Given Insulin Aspart (Novolog Vial Sliding Scale -) 1 vial SQ [facility] PRN Reason: Protocol Last Admin: 05/24/17 22:22 Dose: Not Given Insulin Aspart (Novolog Vial Sliding Scale -) 1 vial SQ TIDAC [facility] PRN Reason: Protocol Last Admin: 05/25/17 06:32 Dose: Not Given Insulin Detemir (Levemir Vial) 5 units SQ [facility] Last Admin: 05/24/17 22:21 Dose: 5 units Isosorbide Dinitrate (Isordil -) 10 mg PO BIDISORDIL [facility] Last Admin: 05/25/17 10:07 Dose: Not Given Lactobacillus Acidophilus (Bacid -) 1 tab PO BID [facility] Last Admin: 05/25/17 10:07 Dose: 1 tab Metoprolol Succinate (Toprol Xl -) 25 mg PO BID [facility] Last Admin: 05/25/17 10:07 Dose: Not Given Mirtazapine (Remeron -) 15 mg PO HS [facility] Last Admin: 05/24/17 22:10 Dose: 15 mg Multivit/Ca Carb/B Cmplx/FA/Prenat (Nephro-Rebecca -) 1 tablet PO DAILY [facility] Last Admin: 05/25/17 10:07 Dose: 1 tablet Nystatin (Nystop Powder -) 1 applic TP TID [facility] Last Admin: 05/25/17 06:32 Dose: 1 applic Ondansetron HCl (Zofran Odt -) 4 mg SL TID PRN PRN Reason: NAUSEA Quetiapine Fumarate (Seroquel -) 25 mg PO HS PRN PRN Reason: AGITATION Last Admin: 05/25/17 01:00 Dose: 25 mg Sertraline HCl (Zoloft -) 100 mg PO DAILY [facility] Last Admin: 05/25/17 10:07 Dose: 100 mg - Objective Vital Signs: Vital Signs Temperature 98 F 05/25/17 07:00 Pulse Rate 100 H 05/25/17 07:00 Respiratory Rate 17 05/25/17 07:00 Blood Pressure 88/64 05/25/17 07:00 O2 Sat by Pulse Oximetry (%) 100 05/25/17 08:20 Constitutional: Yes: No Distress Cardiovascular: Yes: Regular Rate and Rhythm Respiratory: Yes: CTA Bilaterally Gastrointestinal: Yes: Normal Bowel Sounds, Soft. No: Tenderness Edema: No Labs: CBC, BMP 05/24/17 09:15 05/24/17 14:30 Problem List - Problems (1) CHF (congestive heart failure) Code(s): I50.9 - HEART FAILURE, UNSPECIFIED (2) Diarrhea Code(s): R19.7 - DIARRHEA, UNSPECIFIED (3) ESRD (end stage renal disease) on dialysis Code(s): N18.6 - END STAGE RENAL DISEASE; Z99.2 - DEPENDENCE ON RENAL DIALYSIS (4) Elevated troponin Code(s): R79.89 - OTHER SPECIFIED ABNORMAL FINDINGS OF BLOOD CHEMISTRY Assessment/Plan PLAN flat troponins-- due to ESRD HD yesterday continue with meds renal eval noted had a stress test in January 2017-- no ischemia /infarct pt non compliant in [facility] as well wound care Time spent 30 min
[2017-05-25] MEDS: FINASTERIDE 5 MG TABLET (FP) PO SCH (11:29)
[2017-05-25 12:52] LABS: HBSAG SCREEN Negative (Negative); HEP B CORE AB, TOT Negative (Negative)
--- NOTE | 2017-05-25 15:12 | PN ---
Progress Note, Physician Chief Complaint: The patient seen in his bed. No new complaints. Feels weak. - Current Medication List Current Medications: Active Medications Acetaminophen (Tylenol -) 650 mg PO QID PRN PRN Reason: FEVER Last Admin: 05/24/17 22:09 Dose: 650 mg Albuterol/Ipratropium (Duoneb -) 1 amp NEB RQID [facility] Last Admin: 05/25/17 15:04 Dose: 1 amp Calcium Acetate (Phoslo -) 1,334 mg PO TIDCM [facility] Last Admin: 05/25/17 13:58 Dose: Not Given Collagenase (Santyl -) 1 applic TP DAILY [facility] Last Admin: 05/25/17 10:08 Dose: 1 applic Finasteride (Proscar -) 5 mg PO DAILY [facility] Last Admin: 05/25/17 11:29 Dose: 5 mg Insulin Aspart (Novolog Vial Sliding Scale -) 1 vial SQ HS [facility] PRN Reason: Protocol Last Admin: 05/24/17 22:22 Dose: Not Given Insulin Aspart (Novolog Vial Sliding Scale -) 1 vial SQ TIDAC [facility] PRN Reason: Protocol Last Admin: 05/25/17 12:32 Dose: Not Given Insulin Detemir (Levemir Vial) 5 units SQ [facility] Last Admin: 05/24/17 22:21 Dose: 5 units Isosorbide Dinitrate (Isordil -) 10 mg PO BIDISORDIL [facility] Last Admin: 05/25/17 10:07 Dose: Not Given Lactobacillus Acidophilus (Bacid -) 1 tab PO BID [facility] Last Admin: 05/25/17 10:07 Dose: 1 tab Metoprolol Succinate (Toprol Xl -) 25 mg PO BID [facility] Last Admin: 05/25/17 10:07 Dose: Not Given Mirtazapine (Remeron -) 15 mg PO HS [facility] Last Admin: 05/24/17 22:10 Dose: 15 mg Multivit/Ca Carb/B Cmplx/FA/Prenat (Nephro-Rebecca -) 1 tablet PO DAILY [facility] Last Admin: 05/25/17 10:07 Dose: 1 tablet Nystatin (Nystop Powder -) 1 applic TP TID [facility] Last Admin: 05/25/17 14:19 Dose: 1 applic Ondansetron HCl (Zofran Odt -) 4 mg SL TID PRN PRN Reason: NAUSEA Quetiapine Fumarate (Seroquel -) 25 mg PO HS PRN PRN Reason: AGITATION Last Admin: 05/25/17 01:00 Dose: 25 mg Sertraline HCl (Zoloft -) 100 mg PO DAILY [facility] Last Admin: 05/25/17 10:07 Dose: 100 mg - Objective Vital Signs: Vital Signs Temperature 98 F 05/25/17 07:00 Pulse Rate 82 05/25/17 11:00 Respiratory Rate 16 05/25/17 11:00 Blood Pressure 110/78 05/25/17 11:00 O2 Sat by Pulse Oximetry (%) 100 05/25/17 08:20 Constitutional: Yes: Calm, Pallor Eyes: Yes: Conjunctiva Clear HENT: Yes: Normocephalic Neck: Yes: Supple Cardiovascular: Yes: S1, S2 Respiratory: Yes: Regular, Diminished Gastrointestinal: Yes: Normal Bowel Sounds Genitourinary: No: CVA Tenderness - Left, CVA Tenderness - Right, Hematuria Extremities: No: Calf Tenderness Labs: CBC, BMP 05/24/17 09:15 05/24/17 14:30 Problem List - Problems (1) CHF (congestive heart failure) Code(s): I50.9 - HEART FAILURE, UNSPECIFIED (2) COPD (chronic obstructive pulmonary disease) Code(s): J44.9 - CHRONIC OBSTRUCTIVE PULMONARY DISEASE, UNSPECIFIED Qualifiers: COPD type: unspecified COPD Qualified Code(s): J44.9 - Chronic obstructive pulmonary disease, unspecified (3) Diabetes 1.5, managed as type 1 Code(s): E13.9 - OTHER SPECIFIED DIABETES MELLITUS WITHOUT COMPLICATIONS (4) Sacral pressure ulcer Code(s): L89.159 - PRESSURE ULCER OF SACRAL REGION, UNSPECIFIED STAGE (5) Sepsis Code(s): A41.9 - SEPSIS, UNSPECIFIED ORGANISM (6) Anemia Code(s): D64.9 - ANEMIA, UNSPECIFIED Qualifiers: Anemia type: unspecified type Qualified Code(s): D64.9 - Anemia, unspecified (7) Diabetes Code(s): E11.9 - TYPE 2 DIABETES MELLITUS WITHOUT COMPLICATIONS Qualifiers: Diabetes mellitus type: type 2 Diabetes mellitus complication status: with hyperglycemia Diabetes mellitus terminal system operator insulin use: with group home use Qualified Code(s): E11.65 - Type 2 diabetes mellitus with hyperglycemia; Z79.4 - predatory animal exterminator (current) use of insulin; Z79.4 - [facility] (current) use of insulin ; Z79.4 - predatory animal exterminator (current) use of insulin; Z79.4 - [facility] (current) use of insulin (8) End stage kidney disease Code(s): N18.6 - END STAGE RENAL DISEASE (9) Sacral decubitus ulcer, stage III Code(s): L89.153 - PRESSURE ULCER OF SACRAL REGION, STAGE 3 Assessment/Plan 67y M hx of ESRD , CHF, COPD, HTN, PA, IDDM, AAA s/p repair present from [facility] for compalint of hypoxia/sob. The patient had incomplete dialysis on . No chest pains. Being observed. ESRD... The patient had HD yesterday. Overall status better. Concur with the current management. Thank you. Chichi Garcia MD
[2017-05-25] MEDS: MIRTAZAPINE 15 MG TABLET (FP) PO SCH (22:40)
[2017-05-25] MEDS: INSULIN DETEMIR 100 UNITS/ML MDV SQ SCH (23:21)
[2017-05-26] MEDS: NYSTATIN POWDER 100,000 UNITS/GM - 15 GM TOPICAL POWDER TP SCH ×3 (05:43→22:35)
[2017-05-26] MEDS: MIRTAZAPINE 15 MG TABLET (FP) PO SCH ×2 (06:47→22:35)
[2017-05-26] MEDS: ACETAMINOPHEN 325 MG TABLET (FP) PO PRN (06:56)
[2017-05-26] MEDS: ALBUTEROL SO4 2.5/IPRATROPIUM 0.5 INH SOL 3 ML VIAL.NEB. NEB SCH ×4 (07:15→21:00)
[2017-05-26] MEDS ORDERED: CALCIUM GLUCONATE 10% - 1,000 MG/10 ML VIAL ONE (10:40)
--- NOTE | 2017-05-26 10:46 | RAPID ---
Physical Examination Vital Signs: Vital Signs Temperature 98.4 F 05/26/17 06:00 Pulse Rate 99 H 05/26/17 06:00 Respiratory Rate 20 05/26/17 06:00 Blood Pressure 105/71 05/26/17 06:00 O2 Sat by Pulse Oximetry (%) 100 05/25/17 21:00 Findings/Remarks: called to bedside to evaluate patient No pulse noted and patient was pale. Patient was in PEA Code 99 initiated Please see Code sheet for details Labs: CBC, BMP 05/24/17 09:15 05/24/17 14:30 Critical Care Total Critical Care Time (in minutes): 45 Critical Care Statement: The care of this patient involved high complexity decision making to prevent further life threatening deterioration of the patient 's condition and/or to evaluate & treat vital organ system(s) failure or risk of failure.
--- NOTE | 2017-05-26 10:47 | CONSULT ---
Consult Consult Specialty:: Pulm/CCM Referred by:: Dr. Turk Reason for Consultation:: s/p code 99 intubated - History of Present Illness Chief Complaint: code 99 History of Present Illness: This is a 67 year old male with an extensive past medical history including ESRD on dialysis, CHF, IDDM, COPD O2 dependent who presented to the ED with SOB. Patient was admitted and placed in telemetry. This morning the nurse called us (ICU team) to bedside as the patient was no longer responsive. Patient had exlectrical activity on the monitor and was in PEA. ACLS protocol initiated and ROSC was achieved. Patient's fingerstick was noted to be 16 in the ICU and 2 amp D50 given and started on D10 gtt. Patient was also intubated and central line (Left IJ) was inserted. Copious amount of secretions were noted on direct laryngoscopy. Dr. Turk at beside during code 99 and he tried to reach family and was unsuccessful, but a message was left to call the ICU back. PAST MEDICAL HISTORY: ESRD on HD TuThSa, CHF, HTN, [place] 01/27, COPD O2 dependent, IDDM, BPH, depression , VRE bacteremia (should have completed treatment 05/13/17), ESBL PAST SURGICAL HISTORY: AAA repair cholecystectomy - History Source History Provided By: Medical Record Limitations to Obtaining History: Clinical Condition - Past Medical History PER DIEM: Yes: Peripheral Neuropathy Cardio/Vascular: Yes: HTN Pulmonary: Yes: COPD Renal/: Yes: Renal Failure, Renal Inusuff, Hemodialysis Musculoskeletal: Yes: Other (sacral/ischial DUs) Endocrine: Yes: Diabetes Mellitus - Past Surgical History Past Surgical History: Yes: Cholecystectomy - Alcohol/Substance Use Hx Alcohol Use: No History of Substance Use: reports: None - Smoking History Smoking history: Former smoker Have you smoked in the past 12 months: No Aproximately how many cigarettes per day: 20 If you are a former smoker, when did you quit?: january 2016 - Social History Usual Living Arrangement: With Significant Other ADL: Independent History of Recent Travel: No Home Medications - Allergies Allergies/Adverse Reactions: Allergies Allergy/AdvReac Type Severity Reaction Status Date / Time No Known Allergies Allergy Verified 04/21/17 00:40 - Home Medications Home Medications: Ambulatory Orders Acetaminophen [Tylenol] 650 mg PO QID PRN 04/21/17 Albuterol 0.083% Nebulizer Myrna [Ventolin 0.083% Nebulizer Soln -] 1 neb NEB QID PRN 04/21/17 Calcium Acetate [Phoslo -] 1,334 mg PO TIDCM 04/21/17 Collagenase Clostridium Hist. [Santyl -] 1 applic TP DAILY 04/21/17 Finasteride [Proscar -] 5 mg PO DAILY 04/21/17 Furosemide [Lasix -] 80 mg PO DAILY 04/21/17 Insulin (Levemir) [Levemir Flexpen -] 5 units SQ HS 04/21/17 Insulin (Novolog) [Novolog Flexpen -] 0 units SQ BIDAC 04/21/17 Metoprolol Succinate [Toprol Xl] 25 mg PO BID 04/21/17 Mirtazapine [Remeron -] 15 mg PO HS 04/21/17 Ondansetron [Zofran Odt -] 4 mg SL TID PRN 04/21/17 Sertraline HCl [Zoloft] 100 mg PO DAILY 04/21/17 Vit A/Vitamin D3/E/Aloe V/Zinc [Periguard Ointment] 454 gm TP TID 04/21/17 Vitamin B Comp W-C [Nephro-Rebecca -] 1 tablet PO DAILY 04/21/17 Nystatin Powder [Nystop Powder -] 1 applic TP Q8H applic 04/23/17 Isosorbide Dinitrate [Isordil -] 10 mg PO BID 05/24/17 Lactobacillus Acidophilus [Bacid -] 1 each PO BID 05/24/17 Family Disease History - Family Disease History Family History: Unable to Obtain Review of Systems Unable to obtain ROS, reason: Code 99/intubated/sedated Physical Exam Vital Signs: Vital Signs Temperature 98.4 F 05/26/17 06:00 Pulse Rate 99 H 05/26/17 06:00 Respiratory Rate 20 05/26/17 06:00 Blood Pressure 105/71 05/26/17 06:00 O2 Sat by Pulse Oximetry (%) 100 05/25/17 21:00 Constitutional: Yes: [place], Pallor Eyes: Yes: Other (pupils non reactive dilated right pupils larger than left) HENT: Yes: Atraumatic Neck: Yes: Supple Cardiovascular: Yes: Tachycardia, S1, S2 Respiratory: Yes: Rhonchi, Other (large amount of thick white secretions upon direct laryngoscopy) Gastrointestinal: Yes: Soft Renal/: Yes: Urethral Discharge (patient has healed previously traumatized urethra likely from a chronic joyner with purulent drainage) Edema: No Wound/Incision: Yes: Other (Sacral ulcers stage 4) Neurological: Yes: Other (moving eyes spontaneously. Pupils non reactive to light & Dilated. off sedation. minimal response to pain. has gag reflex) Labs: CBC, BMP 05/24/17 09:15 05/24/17 14:30 Imaging - Results Chest X-ray: Report Reviewed, Image Reviewed Assessment/Plan 67yM with multiple medical problems admitted with fluid overload and SOB secondary to shortened dialysis session was on telemetry on no s/p ACLS with ROSC after PEA. PMH ESRD on HD TuThSa, CHF, HTN, IN 01/27, COPD O2 dependent, IDDM, BPH, depression, VRE bacteremia (should have completed treatment 05/13/17), ESBL presented with SOB after abbreviated dialysis session on . cardiopulmonary arrest: PEA s/p ACLS protocol and ROSC achieved. Large amount of secretions in the airway upon direct laryngoscopy continue ventilatory support daily CXR Central line placed keep off sedation as tolerated to assess mental status Start ABx for possible aspiration trend troponins Respiratory failure: likely from fluid overload from a combination of CHF and short course of dialysis/Severe LV dysfunction continue ventilatory support ABG Diuresis as tolerated consider Cardiology consult ESRD on HD: Nephrology consult appreciated HD per nephrology monitor electrolytes renally dose all meds IDDM: currently hypoglycemic: Given 2amps D50 started on D10W monitor fingerstick q1h HTN: monitor BP for now currently BP stable hold BP meds ID: Possible aspiration PNA Patient likely aspirated during intubated and prior as he had copious amount of secretion in airway Give on dose vanco now and check random level in AM Trend CXR Zosyn Urethral discharge: Patient has what appears to be healed urethral trauma now with purulent drainage send urethral culture Stage 4 sacral ulcers send wound culture send blood cultures send sputum culture FEN: D10 @ 50ml/hr no electrolyte issues NPO for now PPx: HSQ with caution given low H/H Start GI PPx PT consult when able to participate BPH Depression Mitral Regurgtation case discussed with attending Dr. Parks CCTime 35 min
--- NOTE | 2017-05-26 10:51 | PN ---
Progress Note (short form) - Note Progress Note: Came to see pt Coded while i am in icu Resuscitated/ intubated. chart reviewed. Vital Signs Temp 98.4 F 05/26/17 06:00 Pulse 99 H 05/26/17 06:00 Resp 20 05/26/17 06:00 BP 105/71 05/26/17 06:00 Pulse Ox 100 05/25/17 21:00 Intake & Output 05/25/17 05/25/17 05/26/17 11:59 23:59 11:59 Intake Total 100 470 240 Balance 100 470 240 Intake: Oral 100 470 240 Other: Voiding Method Diaper Diaper Bowel Movement Yes Active Medications Acetaminophen (Tylenol -) 650 mg PO QID PRN PRN Reason: FEVER Last Admin: 05/24/17 22:09 Dose: 650 mg Albuterol/Ipratropium (Duoneb -) 1 amp NEB RQID [facility] Last Admin: 05/26/17 07:15 Dose: 1 amp Calcium Acetate (Phoslo -) 1,334 mg PO TIDCM [facility] Last Admin: 05/25/17 17:30 Dose: 1,334 mg Collagenase (Santyl -) 1 applic TP DAILY [facility] Last Admin: 05/25/17 10:08 Dose: 1 applic Finasteride (Proscar -) 5 mg PO DAILY [facility] Last Admin: 05/25/17 11:29 Dose: 5 mg Insulin Aspart (Novolog Vial Sliding Scale -) 1 vial SQ HS [facility] PRN Reason: Protocol Last Admin: 05/25/17 23:22 Dose: Not Given Insulin Aspart (Novolog Vial Sliding Scale -) 1 vial SQ TIDAC [facility] PRN Reason: Protocol Last Admin: 05/25/17 17:24 Dose: Not Given Insulin Detemir (Levemir Vial) 5 units SQ HS [facility] Last Admin: 05/25/17 23:21 Dose: 5 units Isosorbide Dinitrate (Isordil -) 10 mg PO BIDISORDIL [facility] Last Admin: 05/25/17 17:25 Dose: Not Given Lactobacillus Acidophilus (Bacid -) 1 tab PO BID [facility] Last Admin: 05/25/17 22:39 Dose: 1 tab Metoprolol Succinate (Toprol Xl -) 25 mg PO BID [facility] Last Admin: 05/25/17 22:44 Dose: 25 mg Mirtazapine (Remeron -) 15 mg PO HS [facility] Last Admin: 05/26/17 06:47 Dose: Not Given Multivit/Ca Carb/B Cmplx/FA/Prenat (Nephro-Rebecca -) 1 tablet PO DAILY [facility] Last Admin: 05/25/17 10:07 Dose: 1 tablet Nystatin (Nystop Powder -) 1 applic TP TID [facility] Last Admin: 05/26/17 05:43 Dose: Not Given Ondansetron HCl (Zofran Odt -) 4 mg SL TID PRN PRN Reason: NAUSEA Quetiapine Fumarate (Seroquel -) 25 mg PO HS PRN PRN Reason: AGITATION Last Admin: 05/25/17 01:00 Dose: 25 mg Sertraline HCl (Zoloft -) 100 mg PO DAILY [facility] Last Admin: 05/25/17 10:07 Dose: 100 mg CBC, BMP 05/24/17 09:15 05/24/17 14:30 Microbiology 05/24/17 15:30 Respiratory Virus Panel - Preliminary Nasopharyngeal Swab Physical Exam. Gen: intubated, poorly responsive Heart: s1, s2 rrr Lung: bilateral breath sounds Abd: soft, non tender Ext: no edema A/P. s/p Cardiopulmonary Arrest ESRD on HD COPD Coronary Artery Disease. Severe LV Dysfunction H/o Sepsis Pulmonary HTN Critical team on case labs send cxr abx discussed with Dr. Parks also as well as nursing team. condition critical I called pts brother and message to call back. will follow.
[2017-05-26 11:12] LABS: ARTERIAL BLD GAS O2 SATURATION 99.5 % (90-98.9); ARTERIAL BLOOD GAS BASE EXCESS -2.2 meq/l (-2-2); ARTERIAL BLOOD GAS PCO2 54.2 mmHg (35-45); ARTERIAL BLOOD GAS pH 7.28 (7.35-7.45)
[2017-05-26] MEDS: CALCIUM ACETATE 667 MG CAPSULE (FP) PO SCH ×3 (11:17→16:57)
[2017-05-26 11:18] LABS: BASO % 0.2 % (0-2.0); EOS % 0.3 % (0-4.5); HEMATOCRIT 17.5 % (35.4-49); LYMPH % 24.2 % (8-40); MCH 27.6 pg (25.7-33.7); MEAN CELL VOLUME 95.2 fl (80-96); MEAN PLT VOLUME 7.2 fl (7.5-11.1); MONO % 7.3 % (3.8-10.2); PLATELET COUNT 68 K/MM3 (134-434); RBC 1.84 M/mm3 (4.00-5.60); RDW 18.7 % (11.9-15.9); WHITE BLOOD COUNT 6.1 K/mm3 (4.0-10.0)
[2017-05-26] MEDS: SERTRALINE HCL 50 MG TABLET (FP) PO SCH (11:18)
[2017-05-26] MEDS: VITAMIN B COMP W-C 1 EA TABLET PO SCH (11:18)
[2017-05-26] MEDS: ISOSORBIDE DINITRATE 10 MG TABLET (FP) PO SCH ×2 (11:18→17:58)
[2017-05-26] MEDS: metoPROLOL SUCCINATE 25 MG TAB.SR.24H (FP) PO SCH ×2 (11:18→22:35)
[2017-05-26] MEDS: FINASTERIDE 5 MG TABLET (FP) PO SCH (11:18)
[2017-05-26] MEDS: LACTOBACILLUS ACIDOPHILUS 1 EACH TAB (FP) PO SCH ×2 (11:18→22:35)
[2017-05-26 11:23] LABS: HEMOGLOBIN 5.1 GM/dL (11.7-16.9)
[2017-05-26 11:31] LABS: INR 2.88 (0.82-1.09); PROTHROMBIN TIME (PATIENT) 32.6 SEC (9.98-11.88)
[2017-05-26 11:34] LABS: ACTIVATED PTT 62.6 SECONDS (26.9-34.4)
[2017-05-26 11:47] LABS: ANION GAP 8 (8-16); BLOOD UREA NITROGEN 19 mg/dL (7-18); CHLORIDE 126 mmol/L (98-107); CO2 18 mmol/L (21-32); CREATININE 1.6 mg/dL (0.7-1.3); MAGNESIUM 0.9 mg/dL (1.8-2.4); PHOSPHOROUS 2.2 mg/dL (2.5-4.9); SGPT/ALT < 6 U/L (12-78); SODIUM 152 mmol/L (136-145)
[2017-05-26 11:48] LABS: ALBUMIN 0.6 g/dl (3.4-5.0); SGOT/AST 4 U/L (15-37)
[2017-05-26 11:50] LABS: TOT PROT 2.3 g/dl (6.4-8.2)
[2017-05-26 11:51] LABS: ALK PHOS 41 U/L (45-117); BILIRUBIN,TOTAL 0.2 mg/dL (0.2-1.0)
[2017-05-26] MEDS ORDERED: HEMOQUE TEST 1 EACH EACH ONE (11:56)
[2017-05-26] MEDS ORDERED: DEXTROSE 50%-WATER 25 GM/50 ML DISP.SYRIN ONE ×2 (11:57)
[2017-05-26 12:07] LABS: CALCIUM < 5.0 mg/dL (8.5-10.1); GLUCOSE,RANDOM 6 mg/dL (74-106); POTASSIUM 2.9 mmol/L (3.5-5.1)
--- NOTE | 2017-05-26 12:52 | PROC ---
<Oralia Donahue - Last Filed: 05/26/17 12:51> Central Line Insertion Indication: Poor Venous Access Risks and Benefits Explained: No Consent on Chart: No (emergency, family not availabl) Central Line: Triple Lumen Catheter Anesthesia: 1% Lidocaine Sterile Technique: Yes Ultrasound Guided Assistance: Yes Position: Left Internal Jugular Post Insertion: Yes: Bilateral Breath Sounds, Bilateral Chest Expansion, Chest X-Ray Ordered Sterile Dressing Applied: Yes <Huang Parks MD - Last Filed: 05/26/17 13:22> Procedure Note Procedure: I supervised and was present during the entire procedure. Huang Parks MD
[2017-05-26 13:18] LABS: HEMATOCRIT 24.8 % (35.4-49); HEMOGLOBIN 7.5 GM/dL (11.7-16.9); MCH 27.8 pg (25.7-33.7); MCHC 30.5 g/dl (32.0-35.9); MEAN CELL VOLUME 91.2 fl (80-96); MEAN PLT VOLUME 7.2 fl (7.5-11.1); PLATELET COUNT 90 K/MM3 (134-434); RBC 2.72 M/mm3 (4.00-5.60); RDW 17.9 % (11.9-15.9); WHITE BLOOD COUNT 7.3 K/mm3 (4.0-10.0)
--- NOTE | 2017-05-26 13:22 | PROC ---
Intubation - Intubation Reason for Intubation: Respiratory Failure Time of Intubation: 10:22 Intubation Method: orotracheal Blade used: Mac (4) Tube Size (cm): 8.0 Tube position @ lip (cm): 21 Tube position confirmed by: Direct visualization, CO2 detector, Chest x-ray, Breath sounds Breath Sounds after Intubation: equal, right greater than left, left greater than right Post Intubation Xray: Yes
--- NOTE | 2017-05-26 13:33 | PN ---
Teaching Attending Note Name of Resident: Marcelo Perez ATTENDING PHYSICIAN STATEMENT I saw and evaluated the patient. I reviewed the resident's note and discussed the case with the resident. I agree with the resident's findings and plan as documented. SUBJECTIVE: Pt seen and examined in the ICU. s/p PEA cardiac arrest with ROSC after 2 rounds epinephrine. Now intubated, did not require pressors. OBJECTIVE: Last Vital Signs Temp Pulse Resp BP Pulse Ox 98.2 F 98 H 14 100/56 96 05/26/17 10:00 05/26/17 10:00 05/26/17 11:40 05/26/17 10:00 05/26/17 09:00 Intake & Output 05/23/17 05/24/17 05/25/17 05/26/17 23:59 23:59 23:59 23:59 Intake Total 800 570 240 Balance 800 570 240 Weight 74.503 kg Gen: intubated, poorly responsive Heart: RRR Lung: bilateral rhonchi Abd: soft, nontender Ext: no edema CBC, BMP 05/26/17 13:00 Active Medications Acetaminophen (Tylenol -) 650 mg PO QID PRN PRN Reason: FEVER Last Admin: 05/24/17 22:09 Dose: 650 mg Albuterol/Ipratropium (Duoneb -) 1 amp NEB RQID [facility] Last Admin: 05/26/17 11:39 Dose: 1 amp Calcium Acetate (Phoslo -) 1,334 mg PO TIDCM [facility] Last Admin: 05/26/17 11:17 Dose: Not Given Collagenase (Santyl -) 1 applic TP DAILY [facility] Last Admin: 05/25/17 10:08 Dose: 1 applic Finasteride (Proscar -) 5 mg PO DAILY [facility] Last Admin: 05/26/17 11:18 Dose: Not Given Insulin Aspart (Novolog Vial Sliding Scale -) 1 vial SQ HS [facility] PRN Reason: Protocol Last Admin: 05/25/17 23:22 Dose: Not Given Insulin Aspart (Novolog Vial Sliding Scale -) 1 vial SQ TIDAC [facility] PRN Reason: Protocol Last Admin: 05/25/17 17:24 Dose: Not Given Insulin Detemir (Levemir Vial) 5 units SQ HS [facility] Last Admin: 05/25/17 23:21 Dose: 5 units Isosorbide Dinitrate (Isordil -) 10 mg PO BIDISORDIL [facility] Last Admin: 05/26/17 11:18 Dose: Not Given Lactobacillus Acidophilus (Bacid -) 1 tab PO BID [facility] Last Admin: 05/26/17 11:18 Dose: Not Given Metoprolol Succinate (Toprol Xl -) 25 mg PO BID [facility] Last Admin: 05/26/17 11:18 Dose: Not Given Mirtazapine (Remeron -) 15 mg PO HS [facility] Last Admin: 05/26/17 06:47 Dose: Not Given Multivit/Ca Carb/B Cmplx/FA/Prenat (Nephro-Rebecca -) 1 tablet PO DAILY [facility] Last Admin: 05/26/17 11:18 Dose: Not Given Nystatin (Nystop Powder -) 1 applic TP TID [facility] Last Admin: 05/26/17 05:43 Dose: Not Given Ondansetron HCl (Zofran Odt -) 4 mg SL TID PRN PRN Reason: NAUSEA Quetiapine Fumarate (Seroquel -) 25 mg PO HS PRN PRN Reason: AGITATION Last Admin: 05/25/17 01:00 Dose: 25 mg Sertraline HCl (Zoloft -) 100 mg PO DAILY [facility] Last Admin: 05/26/17 11:18 Dose: Not Given ASSESSMENT AND PLAN: s/p Cardiopulmonary Arrest r/o Pneumonia r/o Sepsis ESRD on HD COPD CAD Severe LV Dysfunction Mitral Regurgitation Pulmonary HTN - empiric antibiotics - send cultures - HD per renal - monitor lytes - trend cardiac enzymes - minimize sedation to assess mental status - DVT/GI prophylaxis - continue ICU monitoring critical care time spent in reviewing chart, evaluating patient and formulating plan 35 min
[2017-05-26 13:37] LABS: INR 1.66 (0.82-1.09); PROTHROMBIN TIME (PATIENT) 18.8 SEC (9.98-11.88)
[2017-05-26 13:40] LABS: ACTIVATED PTT 24.1 SECONDS (26.9-34.4)
[2017-05-26] MEDS: INSULIN SLIDING SCALE (NOVOLOG) 1 VIAL SQ SCH ×3 (13:44→22:35)
[2017-05-26] MEDS: COLLAGENASE CLOSTRIDIUM HIST. 30 GRAMS TUBE TP SCH (13:45)
[2017-05-26 13:46] LABS: ALBUMIN 1.6 g/dl (3.4-5.0); ANION GAP 7 (8-16); BILIRUBIN,TOTAL 0.5 mg/dL (0.2-1.0); BLOOD UREA NITROGEN 36 mg/dL (7-18); CALCIUM 7.3 mg/dL (8.5-10.1); CHLORIDE 100 mmol/L (98-107); CO2 30 mmol/L (21-32); CREATININE 3.6 mg/dL (0.7-1.3); GLUCOSE,RANDOM 89 mg/dL (74-106); MAGNESIUM 2.2 mg/dL (1.8-2.4); PHOSPHOROUS 5.5 mg/dL (2.5-4.9); POTASSIUM 4.8 mmol/L (3.5-5.1); SGOT/AST 14 U/L (15-37); SGPT/ALT 12 U/L (12-78); SODIUM 137 mmol/L (136-145)
[2017-05-26 13:47] LABS: ALK PHOS 101 U/L (45-117)
[2017-05-26] MEDS ORDERED: PIPERACILLIN/TAZOB 2.25 GM/50 ML PREMIX BAG IVPB SCH (14:00)
[2017-05-26] MEDS ORDERED: VANCOMYCIN 1,250 MG in DEXTROSE 5%-WATER - 250 ML IVPB ONE (15:00)
[2017-05-26] MEDS ORDERED: DEXTROSE 50%-WATER - 25 GM/50 ML VIAL IVPUSH ONE (15:00)
[2017-05-26 15:09] LABS: ANISOCYTOSIS 2+; MACROCYTOSIS FEW; OVALOCYTE 1+; TEAR DROP CELLS 2+
[2017-05-26 15:10] LABS: PLATELET ESTIMATE DECREASED
--- NOTE | 2017-05-26 16:29 | PN ---
Progress Note (short form) - Note Progress Note: Renal follow up for ESRD on HD Pt seen and examined at the bedside pt getting central line placed s/p Code 99 this AM for PEA arrest pt currently intubated on the vent Vital Signs Temperature 98.2 F 05/26/17 10:00 Pulse Rate 90 05/26/17 14:00 Respiratory Rate 15 05/26/17 14:02 Blood Pressure 94/63 05/26/17 14:00 O2 Sat by Pulse Oximetry (%) 96 05/26/17 09:00 Intake & Output 05/23/17 05/24/17 05/25/17 05/26/17 23:59 23:59 23:59 23:59 Intake Total 800 570 240 Balance 800 570 240 Weight 74.503 kg on Vent via ET tube CBC, BMP 05/26/17 13:00 05/26/17 13:00 Current Medications Acetaminophen (Tylenol -) 650 mg PO QID PRN PRN Reason: FEVER Last Admin: 05/24/17 22:09 Dose: 650 mg Albuterol/Ipratropium (Duoneb -) 1 amp NEB RQID [facility] Last Admin: 05/26/17 15:08 Dose: 1 amp Calcium Acetate (Phoslo -) 1,334 mg PO TIDCM [facility] Last Admin: 05/26/17 13:45 Dose: Not Given Collagenase (Santyl -) 1 applic TP DAILY [facility] Last Admin: 05/26/17 13:45 Dose: Not Given Finasteride (Proscar -) 5 mg PO DAILY [facility] Last Admin: 05/26/17 11:18 Dose: Not Given Heparin Sodium (Porcine) (Heparin -) 5,000 unit SQ BID [facility] Vancomycin HCl 1,250 mg/ (Dextrose) 250 mls @ 166.667 mls/hr IVPB ONCE ONE PRN Reason: Protocol Stop: 05/26/17 16:29 Last Admin: 05/26/17 15:43 Dose: 166.667 mls/hr Piperacillin Sod/Tazobactam (Sod 2.25 gm/ Dextrose) 50 mls @ 100 mls/hr IVPB Q8H-IV [facility] Stop: 05/27/17 10:29 Insulin Aspart (Novolog Vial Sliding Scale -) 1 vial SQ HS [facility] PRN Reason: Protocol Last Admin: 05/25/17 23:22 Dose: Not Given Insulin Aspart (Novolog Vial Sliding Scale -) 1 vial SQ TIDAC [facility] PRN Reason: Protocol Last Admin: 05/26/17 13:44 Dose: Not Given Insulin Detemir (Levemir Vial) 5 units SQ HS [facility] Last Admin: 05/25/17 23:21 Dose: 5 units Isosorbide Dinitrate (Isordil -) 10 mg PO BIDISORDIL [facility] Last Admin: 05/26/17 11:18 Dose: Not Given Lactobacillus Acidophilus (Bacid -) 1 tab PO BID [facility] Last Admin: 05/26/17 11:18 Dose: Not Given Metoprolol Succinate (Toprol Xl -) 25 mg PO BID [facility] Last Admin: 05/26/17 11:18 Dose: Not Given Mirtazapine (Remeron -) 15 mg PO HS [facility] Last Admin: 05/26/17 06:47 Dose: Not Given Multivit/Ca Carb/B Cmplx/FA/Prenat (Nephro-Rebecca -) 1 tablet PO DAILY [facility] Last Admin: 05/26/17 11:18 Dose: Not Given Nystatin (Nystop Powder -) 1 applic TP TID [facility] Last Admin: 05/26/17 15:58 Dose: 1 applic Ondansetron HCl (Zofran Odt -) 4 mg SL TID PRN PRN Reason: NAUSEA Pantoprazole Sodium (Protonix Iv) 40 mg IVPUSH DAILY [facility] Piperacillin/Tazobactam/Dextrose (Zosyn 2.25gm Ivpb (Premix)) 2.25 gm IVPB Q8H- IV [facility] Quetiapine Fumarate (Seroquel -) 25 mg PO HS PRN PRN Reason: AGITATION Last Admin: 05/25/17 01:00 Dose: 25 mg Sertraline HCl (Zoloft -) 100 mg PO DAILY [facility] Last Admin: 05/26/17 11:18 Dose: Not Given 67 year old gentleman with PMhx of ESRD on HD via permacath, Hx of HTN, DM, CAD , BPH, recent VRE bactermia who presented with SOB and developed PEA arrest during hospitalization #PEA Arrest Etiology uncertain repeat electrolytes were WNL no evidence of CHF on CXR continue vent support wean as per ICU supportive care #ESRD on HD s/p dialysis on Friday no electrolyte abnormalities or volume overload to warrant dialysis today next dialysis planned for tomorrow morning dose all meds for intermittent HD #Acute on Chronic Anemia check iron profile may warrant PRBC transfusion on Hd Dominick Vanegas DO
--- NOTE | 2017-05-26 16:52 | PN ---
Progress Note (short form) - Note Progress Note: Patient's brother Mr. Mark Becker called today at 4:30pm to ask about patients health condition. Explained about what happened. He would like to talk to Dr. Turk and said he will try calling his office. Patient's HCP is [phone] (Mr. Jake Dixon-patients best friend).
[2017-05-26] MEDS ORDERED: DEXTROSE 5%-WATER - 1,000 ML IV SCH (17:45)
[2017-05-26] MEDS: PIPERACILLIN/TAZOB 2.25 GM 2.25 GM in DEXTROSE 5%-WATER - 50 ML IVPB SCH (17:57)
[2017-05-26] MEDS ORDERED: NOREPINEPHRINE BITARTRATE 8,000 MCG in DEXTROSE 5%-WATER - 492 ML IV SCH (21:00)
[2017-05-26] MEDS ORDERED: NOREPINEPHRINE BITARTRATE 4 MG/4 ML ML IV ONE (21:46)
[2017-05-26] MEDS ORDERED: HEPARIN NA (PORCINE) 5,000 UNITS/ML 1ML VIAL SQ SCH (22:00)
[2017-05-26] MEDS ORDERED: FENTANYL INJECTION 500 MCG in DEXTROSE 5%-WATER - 90 ML IVPB SCH (22:15)
[2017-05-26] MEDS ORDERED: PROPOFOL 1,000,000 MCG/100 ML VIAL ONE (22:16)
[2017-05-26] MEDS ORDERED: MIDAZOLAM 100 MG in SODIUM CHLORIDE 100 ML IVPB SCH (22:30)
[2017-05-26] MEDS: INSULIN DETEMIR 100 UNITS/ML MDV SQ SCH (22:35)
[2017-05-26] MEDS ORDERED: fentaNYL CITRATE 250 MCG/5 ML VIAL ONE (23:30)
[2017-05-27] MEDS: PIPERACILLIN/TAZOB 2.25 GM 2.25 GM in DEXTROSE 5%-WATER - 50 ML IVPB SCH ×3 (02:41→11:49)
[2017-05-27 06:27] LABS: HEMATOCRIT 31.2 % (35.4-49); HEMOGLOBIN 9.7 GM/dL (11.7-16.9); MCH 28.1 pg (25.7-33.7); MCHC 30.9 g/dl (32.0-35.9); MEAN CELL VOLUME 90.7 fl (80-96); MEAN PLT VOLUME 7.6 fl (7.5-11.1); PLATELET COUNT 176 K/MM3 (134-434); RBC 3.45 M/mm3 (4.00-5.60); WHITE BLOOD COUNT 13.2 K/mm3 (4.0-10.0)
[2017-05-27] MEDS: NYSTATIN POWDER 100,000 UNITS/GM - 15 GM TOPICAL POWDER TP SCH (06:30)
[2017-05-27 06:55] LABS: ACTIVATED PTT 30.6 SECONDS (26.9-34.4); INR 1.73 (0.82-1.09); PROTHROMBIN TIME (PATIENT) 19.5 SEC (9.98-11.88)
[2017-05-27 06:56] LABS: ALBUMIN 1.7 g/dl (3.4-5.0); ANION GAP 9 (8-16); BLOOD UREA NITROGEN 42 mg/dL (7-18); CALCIUM 7.6 mg/dL (8.5-10.1); CHLORIDE 98 mmol/L (98-107); CO2 29 mmol/L (21-32); GLUCOSE,RANDOM 85 mg/dL (74-106); MAGNESIUM 2.1 mg/dL (1.8-2.4); POTASSIUM 5.2 mmol/L (3.5-5.1); SODIUM 136 mmol/L (136-145)
[2017-05-27 07:00] LABS: ALK PHOS 108 U/L (45-117); BILIRUBIN,TOTAL 0.7 mg/dL (0.2-1.0); CREATININE 3.9 mg/dL (0.7-1.3); PHOSPHOROUS 5.3 mg/dL (2.5-4.9); SGOT/AST 14 U/L (15-37); SGPT/ALT 13 U/L (12-78); TOT PROT 6.7 g/dl (6.4-8.2)
[2017-05-27] MEDS: INSULIN SLIDING SCALE (NOVOLOG) 1 VIAL SQ SCH ×2 (07:28→14:06)
[2017-05-27 07:41] LABS: ARTERIAL BLD GAS O2 SATURATION 99.6 % (90-98.9); ARTERIAL BLOOD GAS BASE EXCESS -0.4 meq/l (-2-2); ARTERIAL BLOOD GAS PCO2 57.1 mmHg (35-45); ARTERIAL BLOOD GAS pH 7.29 (7.35-7.45)
[2017-05-27 07:49] LABS: ALLENS TEST POSITIVE
[2017-05-27] MEDS ORDERED: INSULIN (NOVOLOG) ASPART 100 UNITS/ML 10ML VIAL ONE (07:59)
[2017-05-27] MEDS: ALBUTEROL SO4 2.5/IPRATROPIUM 0.5 INH SOL 3 ML VIAL.NEB. NEB SCH ×3 (08:20→16:36)
--- NOTE | 2017-05-27 08:48 | PN ---
Progress Note, Physician History of Present Illness: 24 Hour Events: Patient coded yesterday morning, CPR, intubation, CVC, epi, bicarb, calcium, ROSC achieved. Found with severe hypoglycemia (lab and fingerstick were 6 and <50 as reported). Also Hgb was 5.1 after this time but possible this was a lab draw/lab error because it went up to 7.5 then 9.7 (this AM) without transfusion or HD. Initially thought he would need xfusion during HD today but this is no longer in the plans given his morning labs. D5 drip was started. Patient is sedated and intubated. Subjective: n/a currently but per RN notes he complained of back pain when more alert. 24 hour I/O: In: 882cc Out: None reported Net: +882 BM: None reported - Current Medication List Current Medications: Active Medications Acetaminophen (Tylenol -) 650 mg PO QID PRN PRN Reason: FEVER Last Admin: 05/24/17 22:09 Dose: 650 mg Albuterol/Ipratropium (Duoneb -) 1 amp NEB RQID [facility] Last Admin: 05/27/17 08:20 Dose: 1 amp Calcium Acetate (Phoslo -) 1,334 mg PO TIDCM [facility] Last Admin: 05/26/17 16:57 Dose: Not Given Collagenase (Santyl -) 1 applic TP DAILY [facility] Last Admin: 05/26/17 13:45 Dose: Not Given Epoetin Neftaly (Procrit -) 20,000 unit SQ ONCE ONE Stop: 05/27/17 09:01 Fentanyl (Sublimaze Injection -) 25 mcg IVPUSH Q4H-IV PRN PRN Reason: AGITATION Stop: 05/27/17 22:15 Finasteride (Proscar -) 5 mg PO DAILY [facility] Last Admin: 05/26/17 11:18 Dose: Not Given Heparin Sodium (Porcine) (Heparin -) 5,000 unit SQ TID [facility] 234 [facility]S [facility] Dextrose (D5w -) 1,000 mls @ 42 mls/hr IV ASDIR [facility]S [facility] 234 BEDS AT [facility] Last Admin: 05/26/17 17:58 Dose: 42 mls/hr Norepinephrine Bitartrate 8, (000 mcg/ Dextrose) 500 mls @ 18.75 mls/hr IV TITR [facility]; 5 MCG/MIN PRN Reason: Protocol Last Admin: 05/26/17 22:00 Dose: 5 mcg/min, 18.75 mls/hr Fentanyl 500 mcg/ Dextrose 100 mls @ 10 mls/hr IVPB TITR [facility]; 50 MCG/HR PRN Reason: Protocol Last Admin: 05/26/17 23:32 Dose: 10 mls/hr Midazolam HCl 100 mg/ Sodium (Chloride) 100 mls @ 2 mls/hr IVPB TITR [facility]; 2 MG/ HR PRN Reason: Protocol Last Admin: 05/26/17 23:31 Dose: 2 mg/hr, 2 mls/hr Piperacillin Sod/Tazobactam (Sod 2.25 gm/ Dextrose) 50 mls @ 100 mls/hr IVPB Q8H-IV [facility] 234 [facility]S [facility] Last Admin: 05/27/17 02:41 Dose: 100 mls/hr Insulin Aspart (Novolog Vial Sliding Scale -) 1 vial SQ [facility] PRN Reason: Protocol Last Admin: 05/26/17 22:35 Dose: Not Given Insulin Aspart (Novolog Vial Sliding Scale -) 1 vial SQ TIDAC [facility] 234 [facility]S [facility] PRN Reason: Protocol Last Admin: 05/27/17 07:28 Dose: Not Given Insulin Detemir (Levemir Vial) 5 units SQ [facility] Last Admin: 05/26/17 22:35 Dose: Not Given Isosorbide Dinitrate (Isordil -) 10 mg PO BIDISORDIL [facility] 234 [facility]S [facility] Last Admin: 05/26/17 17:58 Dose: Not Given Lactobacillus Acidophilus (Bacid -) 1 tab PO BID [facility] Last Admin: 05/26/17 22:35 Dose: Not Given Metoprolol Succinate (Toprol Xl -) 25 mg PO BID [facility] Last Admin: 05/26/17 22:35 Dose: Not Given Mirtazapine (Remeron -) 15 mg PO HS [facility] Last Admin: 05/26/17 22:35 Dose: Not Given Multivit/Ca Carb/B Cmplx/FA/Prenat (Nephro-Rebecca -) 1 tablet PO DAILY [facility] Last Admin: 05/26/17 11:18 Dose: Not Given Nystatin (Nystop Powder -) 1 applic TP TID [facility] 234 [facility] Last Admin: 05/27/17 06:30 Dose: 1 applic Ondansetron HCl (Zofran Odt -) 4 mg SL TID PRN PRN Reason: NAUSEA Pantoprazole Sodium (Protonix Iv) 40 mg IVPUSH DAILY [facility] 234 [facility]S [facility] Quetiapine Fumarate (Seroquel -) 25 mg PO HS PRN PRN Reason: AGITATION Last Admin: 05/25/17 01:00 Dose: 25 mg Sertraline HCl (Zoloft -) 100 mg PO DAILY [facility] Last Admin: 05/26/17 11:18 Dose: Not Given - Objective Vital Signs: Vital Signs Temperature 98.4 F 05/27/17 06:00 Pulse Rate 87 05/27/17 06:00 Respiratory Rate 16 05/27/17 08:23 Blood Pressure 104/67 05/27/17 06:00 O2 Sat by Pulse Oximetry (%) 98 05/26/17 22:00 Constitutional: Yes: No Distress, Calm, Other (sedated, intubated, moves feet spontaneously but does not follow commands) HENT: Yes: Atraumatic, Normocephalic, Other (small dried blood to lips, ET tube in place) Neck: Yes: Supple, Trachea Midline Cardiovascular: Yes: Regular Rate and Rhythm, Other (distant heart sounds, sacral edema, BUE edema) Respiratory: Yes: Regular, Other (on vent, diffuse crackles L>R, L>R BUE pitting edema) Gastrointestinal: Yes: Normal Bowel Sounds, Soft Genitourinary: Yes: Starks Present Edema: Yes Integumentary: Yes: Bruising Neurological: Yes: Other (sedated) Labs: CBC, BMP 05/27/17 05:45 05/27/17 05:45 INR, PTT INR 1.73 (0.82-1.09) H 05/27/17 05:45 Assessment/Plan 67 YOM with h/o ESRD on HD TThSat, VRE bacteremia (should have completed treatment 05/13/17), ESBL, Anemia, Asthma, COPD on home O2, ND, CHF, HTN, IDDM, BPH, Former smoker sent by his SNF for SOB to r/o PNA, admitted with fluid overload, had elevated troponin, cardiopulmonary arrest in the ED, intubated, CVC placed, ROSC achieved, now sedated. Dx: CHF, COPD, DM, Pressure Ulcer, Sepsis, Anemia, ESRD on dialysis, Decubitis, Elevated Troponin level due to renal disease CV #Cardiopulmonary arrest, resolved. PEA s/p ACLS protocol and ROSC achieved. CVC placed. -Opted for no hypothermic tx as patient is recent s/p VRE bacteremia, ESBL -Continue vent -Trend troponins/EKG as needed -Cardiology consult #Hypotension, improving. Patient with h/o HTN at baseline. -Monitor BP -Hold home BP meds -Titrate Levophed Resp #Respiratory failure, persistent. Initially from fluid overload (2/2 CHF and incomplete HD). Worsened with arrest. Large amt secretions in airway during code. Currently with primary respiratory acidosis. -Continue vent -Increased RR to 20, decreased FiO2 to 40 as PO2 was >200 -Abx for aspiration (vanc/Zosyn) -Attempt stopping sedation and weaning from vent tomorrow -Daily ABG -Diuresis as tolerated -Daily CXR Renal #ESRD on HD: -Nephrology consulting, appreciate recs -HD per nephrology scheduled for today -Monitor electrolytes daily -Renal dosing all meds Endo #IDDM. Patient hypoglycemic during arrest but >400 after D50. In the past 24h he has been 70s-100s. -Continue started on D10W -Monitor finger stick BG ID: #Possible aspiration PNA. Patient likely aspirated during intubation as he had copious secretions during code. -Continue Vancomycin/Zosyn -FU sputum culture -Trend CXR, CBCD #Urethral discharge. Apparent healed urethral trauma, purulent drainage now. -FU urethral discharge culture #Stage 4 sacral ulcers. -FU wound Cx #H/O VRE bacteremia, ESBL. -FU blood Cx -May consider ID consult if cultures positive FEN: D10 @ 50ml/hr no electrolyte issues NPO for now PPX: -Heparin SQ with caution given low H/H -Continue GI PPx -PT consult when sedation stopped and able to participate Lines/Drains/Tubes ET Tube: Sz 8.0 placed 05/26/17 CVC: Triple lumen left IJ placed 05/26/17 PIV: LAC placed 05/26/17 Dispo Requires further ICU care
[2017-05-27] MEDS ORDERED: EPOETIN ALFA 20,000 UNIT/1 ML VIAL SQ ONE ×2 (09:00→14:45)
[2017-05-27] MEDS ORDERED: fentaNYL CITRATE 250 MCG/5 ML VIAL ONE (09:21)
[2017-05-27] MEDS ORDERED: PANTOPRAZOLE SODIUM 40 MG VIAL IVPUSH SCH (10:00)
--- NOTE | 2017-05-27 11:29 | PN ---
Progress Note (short form) - Note Progress Note: Renal follow up for ESRD on HD Pt seen and examined in the ICU on Vent 60% FiO2 pt currently getting dialysis BP stable pt clotted the filter, needs to be restarted permacath with good flow pt noted to have pus draining from penis Vital Signs Temperature 98.4 F 05/27/17 06:00 Pulse Rate 99 H 05/27/17 08:00 Respiratory Rate 14 05/27/17 11:18 Blood Pressure 106/60 05/27/17 08:00 O2 Sat by Pulse Oximetry (%) 97 05/27/17 10:50 Intake & Output 05/24/17 05/25/17 05/26/17 05/27/17 23:59 23:59 23:59 23:59 Intake Total 800 830 525 0449 Balance 800 341 878 9699 Weight 74.503 kg 73.709 kg on Vent via ET tube tachycardic Dec BS at lung bases, no rales soft NT/ND no bladder distension CBC, BMP 05/27/17 05:45 05/27/17 05:45 Current Medications Acetaminophen (Tylenol -) 650 mg PO QID PRN PRN Reason: FEVER Last Admin: 05/24/17 22:09 Dose: 650 mg Albuterol/Ipratropium (Duoneb -) 1 amp NEB RQID [facility] Last Admin: 05/27/17 08:20 Dose: 1 amp Calcium Acetate (Phoslo -) 1,334 mg PO TIDCM [facility] Last Admin: 05/26/17 16:57 Dose: Not Given Collagenase (Santyl -) 1 applic TP DAILY [facility] Last Admin: 05/26/17 13:45 Dose: Not Given Fentanyl (Sublimaze Injection -) 25 mcg IVPUSH Q4H-IV PRN PRN Reason: AGITATION Stop: 05/27/17 22:15 Finasteride (Proscar -) 5 mg PO DAILY [facility] Last Admin: 05/26/17 11:18 Dose: Not Given Heparin Sodium (Porcine) (Heparin -) 5,000 unit SQ TID [facility] Dextrose (D5w -) 1,000 mls @ 42 mls/hr IV ASDIR [facility] Last Admin: 05/26/17 17:58 Dose: 42 mls/hr Norepinephrine Bitartrate 8, (000 mcg/ Dextrose) 500 mls @ 18.75 mls/hr IV TITR [facility]; 5 MCG/MIN PRN Reason: Protocol Last Admin: 05/26/17 22:00 Dose: 5 mcg/min, 18.75 mls/hr Fentanyl 500 mcg/ Dextrose 100 mls @ 10 mls/hr IVPB TITR [facility]; 50 MCG/HR PRN Reason: Protocol Last Admin: 05/26/17 23:32 Dose: 10 mls/hr Midazolam HCl 100 mg/ Sodium (Chloride) 100 mls @ 2 mls/hr IVPB TITR [facility]; 2 MG/ HR PRN Reason: Protocol Last Admin: 05/26/17 23:31 Dose: 2 mg/hr, 2 mls/hr Piperacillin Sod/Tazobactam (Sod 2.25 gm/ Dextrose) 50 mls @ 100 mls/hr IVPB Q8H-IV [facility] Last Admin: 05/27/17 02:41 Dose: 100 mls/hr Insulin Aspart (Novolog Vial Sliding Scale -) 1 vial SQ HS [facility] PRN Reason: Protocol Last Admin: 05/26/17 22:35 Dose: Not Given Insulin Aspart (Novolog Vial Sliding Scale -) 1 vial SQ TIDAC [facility] PRN Reason: Protocol Last Admin: 05/27/17 07:28 Dose: Not Given Insulin Detemir (Levemir Vial) 5 units SQ [facility] Last Admin: 05/26/17 22:35 Dose: Not Given Isosorbide Dinitrate (Isordil -) 10 mg PO BIDISORDIL [facility] Last Admin: 05/26/17 17:58 Dose: Not Given Lactobacillus Acidophilus (Bacid -) 1 tab PO BID [facility] Last Admin: 05/26/17 22:35 Dose: Not Given Metoprolol Succinate (Toprol Xl -) 25 mg PO BID [facility] Last Admin: 05/26/17 22:35 Dose: Not Given Mirtazapine (Remeron -) 15 mg PO HS [facility] Last Admin: 05/26/17 22:35 Dose: Not Given Multivit/Ca Carb/B Cmplx/FA/Prenat (Nephro-Rebecca -) 1 tablet PO DAILY [facility] Last Admin: 05/26/17 11:18 Dose: Not Given Nystatin (Nystop Powder -) 1 applic TP TID [facility] Last Admin: 05/27/17 06:30 Dose: 1 applic Ondansetron HCl (Zofran Odt -) 4 mg SL TID PRN PRN Reason: NAUSEA Pantoprazole Sodium (Protonix Iv) 40 mg IVPUSH DAILY [facility] Quetiapine Fumarate (Seroquel -) 25 mg PO HS PRN PRN Reason: AGITATION Last Admin: 05/25/17 01:00 Dose: 25 mg Sertraline HCl (Zoloft -) 100 mg PO DAILY [facility] Last Admin: 05/26/17 11:18 Dose: Not Given 67 year old gentleman with PMhx of ESRD on HD via permacath, Hx of HTN, DM, CAD , BPH, recent VRE bactermia who presented with SOB and developed PEA arrest during hospitalization #PEA Arrest continue supportive care pt is awake off sedation weaning as per ICU Cardiac enzymes ok electrolytes WNL #ESRD on HD pt tolerating dialysis this am until filter clotted will be restarted UF goal ~1.5-2L dose all meds intermittent HD #Discharge from penis check urine cultures check bladder US to r/o collection, abcess may need Ct of Abd/Pelvis #Acute on Chronic Anemia trend CBC Dominick Vanegas DO
--- NOTE | 2017-05-27 11:34 | PN ---
Progress Note, Physician Chief Complaint: s/p intubation sedated on vent on Levophed drip undergoing dialysis - Current Medication List Current Medications: Active Medications Acetaminophen (Tylenol -) 650 mg PO QID PRN PRN Reason: FEVER Last Admin: 05/24/17 22:09 Dose: 650 mg Albuterol/Ipratropium (Duoneb -) 1 amp NEB RQID [facility] Last Admin: 05/27/17 08:20 Dose: 1 amp Calcium Acetate (Phoslo -) 1,334 mg PO TIDCM [facility] Last Admin: 05/26/17 16:57 Dose: Not Given Collagenase (Santyl -) 1 applic TP DAILY [facility] Last Admin: 05/26/17 13:45 Dose: Not Given Fentanyl (Sublimaze Injection -) 25 mcg IVPUSH Q4H-IV PRN PRN Reason: AGITATION Stop: 05/27/17 22:15 Finasteride (Proscar -) 5 mg PO DAILY [facility] Last Admin: 05/26/17 11:18 Dose: Not Given Heparin Sodium (Porcine) (Heparin -) 5,000 unit SQ TID [facility] Dextrose (D5w -) 1,000 mls @ 42 mls/hr IV ASDIR [facility] Last Admin: 05/26/17 17:58 Dose: 42 mls/hr Norepinephrine Bitartrate 8, (000 mcg/ Dextrose) 500 mls @ 18.75 mls/hr IV TITR AKOSUA; 5 MCG/MIN PRN Reason: Protocol Last Admin: 05/26/17 22:00 Dose: 5 mcg/min, 18.75 mls/hr Fentanyl 500 mcg/ Dextrose 100 mls @ 10 mls/hr IVPB TITR AKOSUA; 50 MCG/HR PRN Reason: Protocol Last Admin: 05/26/17 23:32 Dose: 10 mls/hr Midazolam HCl 100 mg/ Sodium (Chloride) 100 mls @ 2 mls/hr IVPB TITR AKOSUA; 2 MG/ HR PRN Reason: Protocol Last Admin: 05/26/17 23:31 Dose: 2 mg/hr, 2 mls/hr Piperacillin Sod/Tazobactam (Sod 2.25 gm/ Dextrose) 50 mls @ 100 mls/hr IVPB Q8H-IV [facility] Last Admin: 05/27/17 02:41 Dose: 100 mls/hr Insulin Aspart (Novolog Vial Sliding Scale -) 1 vial SQ HS [facility] PRN Reason: Protocol Last Admin: 05/26/17 22:35 Dose: Not Given Insulin Aspart (Novolog Vial Sliding Scale -) 1 vial SQ TIDAC [facility] PRN Reason: Protocol Last Admin: 05/27/17 07:28 Dose: Not Given Insulin Detemir (Levemir Vial) 5 units SQ HS [facility] Last Admin: 05/26/17 22:35 Dose: Not Given Isosorbide Dinitrate (Isordil -) 10 mg PO BIDISORDIL [facility] Last Admin: 05/26/17 17:58 Dose: Not Given Lactobacillus Acidophilus (Bacid -) 1 tab PO BID [facility] Last Admin: 05/26/17 22:35 Dose: Not Given Metoprolol Succinate (Toprol Xl -) 25 mg PO BID [facility] Last Admin: 05/26/17 22:35 Dose: Not Given Mirtazapine (Remeron -) 15 mg PO HS [facility] Last Admin: 05/26/17 22:35 Dose: Not Given Multivit/Ca Carb/B Cmplx/FA/Prenat (Nephro-Rebecca -) 1 tablet PO DAILY [facility] Last Admin: 05/26/17 11:18 Dose: Not Given Nystatin (Nystop Powder -) 1 applic TP TID [facility] Last Admin: 05/27/17 06:30 Dose: 1 applic Ondansetron HCl (Zofran Odt -) 4 mg SL TID PRN PRN Reason: NAUSEA Pantoprazole Sodium (Protonix Iv) 40 mg IVPUSH DAILY [facility] Quetiapine Fumarate (Seroquel -) 25 mg PO HS PRN PRN Reason: AGITATION Last Admin: 05/25/17 01:00 Dose: 25 mg Sertraline HCl (Zoloft -) 100 mg PO DAILY [facility] Last Admin: 05/26/17 11:18 Dose: Not Given - Objective Vital Signs: Vital Signs Temperature 98.4 F 05/27/17 06:00 Pulse Rate 99 H 05/27/17 08:00 Respiratory Rate 14 05/27/17 11:18 Blood Pressure 106/60 05/27/17 08:00 O2 Sat by Pulse Oximetry (%) 97 05/27/17 10:50 Constitutional: Yes: Calm Cardiovascular: Yes: Regular Rate and Rhythm, Murmur Respiratory: Yes: Diminished Gastrointestinal: Yes: Normal Bowel Sounds, Soft. No: Tenderness Edema: No Labs: CBC, BMP 05/27/17 05:45 05/27/17 05:45 INR, PTT INR 1.73 (0.82-1.09) H 05/27/17 05:45 Problem List - Problems (1) CHF (congestive heart failure) Code(s): I50.9 - HEART FAILURE, UNSPECIFIED (2) Diarrhea Code(s): R19.7 - DIARRHEA, UNSPECIFIED (3) ESRD (end stage renal disease) on dialysis Code(s): N18.6 - END STAGE RENAL DISEASE; Z99.2 - DEPENDENCE ON RENAL DIALYSIS (4) Elevated troponin Code(s): R79.89 - OTHER SPECIFIED ABNORMAL FINDINGS OF BLOOD CHEMISTRY (5) Cardiac arrest Code(s): I46.9 - CARDIAC ARREST, CAUSE UNSPECIFIED (6) Acute respiratory failure Code(s): J96.00 - ACUTE RESPIRATORY FAILURE, UNSP W HYPOXIA OR HYPERCAPNIA Assessment/Plan PLAN spoke with ICU team and Renal continue with empiric antibiotics Hd per renal unsure if low sugars were accurate pus noted in penis per RN-- will check sono urinary bladder prognosis guarded
[2017-05-27] MEDS: LACTOBACILLUS ACIDOPHILUS 1 EACH TAB (FP) PO SCH (11:45)
[2017-05-27] MEDS: CALCIUM ACETATE 667 MG CAPSULE (FP) PO SCH ×2 (11:45→12:35)
[2017-05-27] MEDS: ISOSORBIDE DINITRATE 10 MG TABLET (FP) PO SCH (11:45)
[2017-05-27] MEDS: FINASTERIDE 5 MG TABLET (FP) PO SCH (11:46)
[2017-05-27] MEDS: SERTRALINE HCL 50 MG TABLET (FP) PO SCH (11:46)
[2017-05-27] MEDS: VITAMIN B COMP W-C 1 EA TABLET PO SCH (11:46)
[2017-05-27] MEDS: COLLAGENASE CLOSTRIDIUM HIST. 30 GRAMS TUBE TP SCH (11:48)
[2017-05-27] MEDS: metoPROLOL SUCCINATE 25 MG TAB.SR.24H (FP) PO SCH (11:49)
[2017-05-27] MEDS ORDERED: VANCOMYCIN 1,250 MG in DEXTROSE 5%-WATER - 250 ML IVPB ONE (13:00)
--- NOTE | 2017-05-27 13:15 | PN ---
Teaching Attending Note Name of Resident: Oralia Donahue ATTENDING PHYSICIAN STATEMENT I saw and evaluated the patient. I reviewed the resident's note and discussed the case with the resident. I agree with the resident's findings and plan as documented. SUBJECTIVE: Pt seen and examined in the ICU. Remains intubated, sedated. Started on levophed gtt overnight. Reportedly alert overnight and started on sedation. Currently being dialyzed. Vented on volume assist control with 60% FiO2. OBJECTIVE: Last Vital Signs Temp Pulse Resp BP Pulse Ox 98.4 F 94 H 14 104/63 97 05/27/17 06:00 05/27/17 12:00 05/27/17 12:00 05/27/17 12:00 05/27/17 10:50 Intake & Output 05/24/17 05/25/17 05/26/17 05/27/17 23:59 23:59 23:59 23:59 Intake Total 800 488 887 1381 Balance 800 793 328 8409 Weight 74.503 kg 73.709 kg Gen: intubated, sedated Heart: RRR Lung: scattered rhonchi Abd: soft, nontender Ext: no edema CBC, BMP 05/27/17 05:45 05/27/17 05:45 Active Medications Acetaminophen (Tylenol -) 650 mg PO QID PRN PRN Reason: FEVER Last Admin: 05/24/17 22:09 Dose: 650 mg Albuterol/Ipratropium (Duoneb -) 1 amp NEB RQID [facility] Last Admin: 05/27/17 08:20 Dose: 1 amp Calcium Acetate (Phoslo -) 1,334 mg PO TIDCM [facility] Last Admin: 05/27/17 12:35 Dose: Not Given Collagenase (Santyl -) 1 applic TP DAILY [facility] Last Admin: 05/27/17 11:48 Dose: 1 applic Fentanyl (Sublimaze Injection -) 25 mcg IVPUSH Q4H-IV PRN PRN Reason: AGITATION Stop: 05/27/17 22:15 Finasteride (Proscar -) 5 mg PO DAILY [facility] Last Admin: 05/27/17 11:46 Dose: Not Given Heparin Sodium (Porcine) (Heparin -) 5,000 unit SQ TID [facility] Dextrose (D5w -) 1,000 mls @ 42 mls/hr IV ASDIR [facility] Last Admin: 05/26/17 17:58 Dose: 42 mls/hr Norepinephrine Bitartrate 8, (000 mcg/ Dextrose) 500 mls @ 18.75 mls/hr IV TITR AKOSUA; 5 MCG/MIN PRN Reason: Protocol Last Admin: 05/26/17 22:00 Dose: 5 mcg/min, 18.75 mls/hr Fentanyl 500 mcg/ Dextrose 100 mls @ 10 mls/hr IVPB TITR AKOSUA; 50 MCG/HR PRN Reason: Protocol Last Admin: 05/26/17 23:32 Dose: 10 mls/hr Midazolam HCl 100 mg/ Sodium (Chloride) 100 mls @ 2 mls/hr IVPB TITR AKOSUA; 2 MG/ HR PRN Reason: Protocol Last Admin: 05/26/17 23:31 Dose: 2 mg/hr, 2 mls/hr Piperacillin Sod/Tazobactam (Sod 2.25 gm/ Dextrose) 50 mls @ 100 mls/hr IVPB Q8H-IV [facility] Last Admin: 05/27/17 11:49 Dose: 100 mls/hr Vancomycin HCl 1,250 mg/ (Dextrose) 250 mls @ 166.667 mls/hr IVPB ONCE ONE PRN Reason: Protocol Stop: 05/27/17 14:29 Insulin Aspart (Novolog Vial Sliding Scale -) 1 vial SQ [facility] PRN Reason: Protocol Last Admin: 05/26/17 22:35 Dose: Not Given Insulin Aspart (Novolog Vial Sliding Scale -) 1 vial SQ TIDAC [facility] PRN Reason: Protocol Last Admin: 05/27/17 07:28 Dose: Not Given Insulin Detemir (Levemir Vial) 5 units SQ [facility] Last Admin: 05/26/17 22:35 Dose: Not Given Isosorbide Dinitrate (Isordil -) 10 mg PO BIDISORDIL [facility] Last Admin: 05/27/17 11:45 Dose: Not Given Lactobacillus Acidophilus (Bacid -) 1 tab PO BID [facility] Last Admin: 05/27/17 11:45 Dose: Not Given Metoprolol Succinate (Toprol Xl -) 25 mg PO BID [facility] Last Admin: 05/27/17 11:49 Dose: Not Given Mirtazapine (Remeron -) 15 mg PO [facility] Last Admin: 05/26/17 22:35 Dose: Not Given Multivit/Ca Carb/B Cmplx/FA/Prenat (Nephro-Rebecca -) 1 tablet PO DAILY [facility] Last Admin: 05/27/17 11:46 Dose: Not Given Nystatin (Nystop Powder -) 1 applic TP TID [facility] Last Admin: 05/27/17 06:30 Dose: 1 applic Ondansetron HCl (Zofran Odt -) 4 mg SL TID PRN PRN Reason: NAUSEA Pantoprazole Sodium (Protonix Iv) 40 mg IVPUSH DAILY [facility] Quetiapine Fumarate (Seroquel -) 25 mg PO HS PRN PRN Reason: AGITATION Last Admin: 05/25/17 01:00 Dose: 25 mg Sertraline HCl (Zoloft -) 100 mg PO DAILY [facility] Last Admin: 05/27/17 11:46 Dose: Not Given ASSESSMENT AND PLAN: s/p Cardiopulmonary Arrest r/o Pneumonia r/o Penile Infection Septic Shock ESRD on HD COPD CAD Severe LV Dysfunction Mitral Regurgitation Pulmonary HTN - continue antibiotics - f/u cultures - HD per renal - titrate levophed gtt to maintain MAP >65 - monitor lytes - taper FiO2 to keep Spo2 >90% - hold sedation in AM to assess mental status - spontaneous breathing trials as tolerated when mental status improved - enteral feeds if unable to extubate - DVT/GI prophylaxis - continue ICU monitoring critical care time spent in reviewing chart, evaluating patient and formulating plan 35 min
[2017-05-27 13:51] VITALS: TEMP 98.6
[2017-05-27] MEDS ORDERED: HEPARIN NA (PORCINE) 5,000 UNITS/ML 1ML VIAL SQ SCH (14:00)
[2017-05-27 16:25] LABS: URINE APPEARANCE TURBID; URINE BILIRUBIN NEGATIVE (NEGATIVE); URINE BLOOD 2+ (NEGATIVE); URINE COLOR YELLOW; URINE GLUCOSE (UA) NEGATIVE (NEGATIVE); URINE KETONE NEGATIVE (NEGATIVE); URINE NITRITE NEGATIVE (NEGATIVE); URINE UROBILINOGEN NEGATIVE mg/dL (0.2-1.0)
[2017-05-27 16:34] LABS: URINE LEUK ESTERASE 2+ (NEGATIVE); URINE PROTEIN 2+ (NEGATIVE)
[2017-05-27 16:36] LABS: URINE MUCUS MANY
[2017-05-27] MEDS ORDERED: ATROPINE SULFATE 1 MG/10 ML DISP.SYRIN IVPUSH ONE (17:25)
[2017-05-27] MEDS ORDERED: ATROPINE SULFATE 1 MG/10 ML DISP.SYRIN ONE (17:25)
[2017-05-27] MEDS ORDERED: DOPAMINE 400 MG/D5W - 400,000 MCG/250 ML INFUS.BAG IVPB ONE (17:26)
[2017-05-27] MEDS ORDERED: SODIUM CHLORIDE 500 ML IV STA (17:26)
[2017-05-27] MEDS ORDERED: CALCIUM GLUCONATE 10% - 1,000 MG/10 ML VIAL ONE (17:44)
--- NOTE | 2017-05-27 19:02 | PN ---
Progress Note (short form) - Note Progress Note: ICU Resident Note: Pt became bradycardic at 36bpm this afternoon with pulse. Pt is intubated and currently on Levophed 8. Atropine 1mg administered for bradycardia --Blood pressure cycled at this time alongside of assessment of SpO2 --Cuff cannot obtain reading and pacing pads were placed for transcutaneous pacing; pt still has thready, weak pulse at this time --Pulse lost on pt and was converted into a Code 99 due to full code status; call was placed out to family by medical staff --In total pt received chest compressions and was manually ventillated from his established ET tube; 6 epinephrine total;
--- NOTE | 2017-05-27 19:30 | RAPID ---
Physical Examination Vital Signs: Vital Signs Temperature 98.6 F 05/27/17 14:00 Pulse Rate 110 H 05/27/17 16:00 Respiratory Rate 29 H 05/27/17 16:10 Blood Pressure 113/66 05/27/17 16:00 O2 Sat by Pulse Oximetry (%) 97 05/27/17 10:50 Findings/Remarks: ICU Resident Note: Pt became bradycardic at 36bpm this afternoon with pulse. Pt was previously intubated and was on AC control. Atropine 1mg administered for bradycardia (2 doses given) --Blood pressure was cycled at this time alongside of assessment of SpO2 --Cuff could not obtain reading and pacing pads were placed for transcutaneous pacing; pt continued to have thready, weak pulse --After multiple cycles BP read shows 63/47 --500cc bolus of NS administered; Levophed titrated up to 20 for pressure support --Pulse lost on pt and was converted into a Code 99 due to full code status with ACLS protocol being followed; call was placed out to family by medical staff --In total pt received chest compressions and was manually ventillated from his established ET tube; 6 epinephrine total; 2 amps of HCO3 total; 1 MgSO4 total; 1 Calcium Chloride --Code duration was 20minutes with no answer from family and futility of the code was decided. --See code sheet for full report NOTE: Pt unresponsive even to painful stimuli. Pupils fixed and nonreactive. Pt has an absent gag reflex and corneal reflex. Pt has no spontaneous breathing, no heart sounds and no breath sounds auscultated. No carotid or femoral pulses present. Time of pronounced at 18:05 on 05/27/2017 HCP Jake Dixon notified at 18:27 Attending physician notified Body to be released to home of family's choice. Labs: CBC, BMP 05/27/17 05:45 05/27/17 05:45
[2017-05-27 20:08] VITALS: BP 57/38; PULSE 44
[2017-05-28 08:07] LABS: SERUM IRON SATURATION 28 % (15-55); TOTAL IRON BINDING CAPACITY 78 ug/dL (250-450); UIBC 56 ug/dL (111-343)
--- NOTE | 2017-05-28 15:36 | DS ---
Physical Examination Vital Signs: Vital Signs Temperature 98.6 F 05/27/17 14:00 Pulse Rate 44 L 05/27/17 17:20 Respiratory Rate 29 H 05/27/17 16:10 Blood Pressure 57/38 05/27/17 17:20 O2 Sat by Pulse Oximetry (%) 97 05/27/17 10:50 Labs: CBC, BMP 05/27/17 05:45 05/27/17 05:45 Discharge Summary Reason For Visit: ELEVATED TROPONIN 1 LEVEL,SHORTNESS OF BREATH Hospital Course: admitted for volume overload, admitted to telemetry for elevated troponins due to ESRD pt was seen by Renal and Cardiology Had a cardiac arrest , rescusitated and intubated, placed on Levophed -- septic shock Found to have possible sepsis due to infection in bladder vs penis as there was pus in penis-- sono of urinary bladder showed large mass - likely to be debris/ urinary sediment Pt had arrested again on 05/27-- pronounced at 6:05pm on 05/27 - Instructions Disposition: - Home Medications Comprehensive Discharge Medication List: Ambulatory Orders Acetaminophen [Tylenol] 650 mg PO QID PRN 04/21/17 Albuterol 0.083% Nebulizer Myrna [Ventolin 0.083% Nebulizer Soln -] 1 neb NEB QID PRN 04/21/17 Calcium Acetate [Phoslo -] 1,334 mg PO TIDCM 04/21/17 Collagenase Clostridium Hist. [Santyl -] 1 applic TP DAILY 04/21/17 Finasteride [Proscar -] 5 mg PO DAILY 04/21/17 Furosemide [Lasix -] 80 mg PO DAILY 04/21/17 Insulin (Levemir) [Levemir Flexpen -] 5 units SQ HS 04/21/17 Insulin (Novolog) [Novolog Flexpen -] 0 units SQ BIDAC 04/21/17 Metoprolol Succinate [Toprol Xl] 25 mg PO BID 04/21/17 Mirtazapine [Remeron -] 15 mg PO HS 04/21/17 Ondansetron [Zofran Odt -] 4 mg SL TID PRN 04/21/17 Sertraline HCl [Zoloft] 100 mg PO DAILY 04/21/17 Vit A/Vitamin D3/E/Aloe V/Zinc [Periguard Ointment] 454 gm TP TID 04/21/17 Vitamin B Comp W-C [Nephro-Rebecca -] 1 tablet PO DAILY 04/21/17 Nystatin Powder [Nystop Powder -] 1 applic TP Q8H applic 04/23/17 Isosorbide Dinitrate [Isordil -] 10 mg PO BID 05/24/17 Lactobacillus Acidophilus [Bacid -] 1 each PO BID 05/24/17
== END 2017-05-27 22:30 | disposition expired | DRG 291 ==
LOC: JER 03:02 → JERBED 06:37 → J2W 08:42 → OBSVTOIN 09:56 → JICU 05-27 01:33
PROVIDERS: ADMIT Internal Medicine; ATTEND Internal Medicine
PROC: 5A1945Z Respiratory Ventilation, 24-96 Consecutive Hours (ICD-10-PCS; principal; 2017-05-26)
PROC: 0BH17EZ Insertion of Endotracheal Airway into Trachea, Via Natural or Artificial Opening (ICD-10-PCS; 2017-05-26)
PROC: 5A12012 Performance of Cardiac Output, Single, Manual (ICD-10-PCS; 2017-05-26)
PROC: 02HV33Z Insertion of Infusion Device into Superior Vena Cava, Percutaneous Approach (ICD-10-PCS; 2017-05-26)
DX: I13.2 Hypertensive heart and chronic kidney disease with heart failure and with stage 5 chronic kidney disease, or end stage renal disease (principal); N18.6 End stage renal disease; J96.90 Respiratory failure, unspecified, unspecified whether with hypoxia or hypercapnia; J69.0 Pneumonitis due to inhalation of food and vomit; L89.153 Pressure ulcer of sacral region, stage 3; A41.9 Sepsis, unspecified organism; R65.21 Severe sepsis with septic shock; I50.20 Unspecified systolic (congestive) heart failure; I46.9 Cardiac arrest, cause unspecified; I34.0 Nonrheumatic mitral (valve) insufficiency; I27.20 Pulmonary hypertension, unspecified; E87.70 Fluid overload, unspecified; E87.5 Hyperkalemia; J44.9 Chronic obstructive pulmonary disease, unspecified; N40.0 Benign prostatic hyperplasia without lower urinary tract symptoms; F32.9 Major depressive disorder, single episode, unspecified; E11.9 Type 2 diabetes mellitus without complications
CPT/HCPCS: 31500; 36415; 36600; 71045-TC-FY; 76856-TC; 80048; 80053; 81003; 81015; 82550; 82565; 82728; 82803; 82962; 83540; 83550; 83605; 83735; 83880; 84100; 84484; 84520; 85025; 85027; 85610; 85730; 86704; 86706; 86708; 86803; 86850; 86900; 86901; 87040; 87070; 87086; 87186; 87205; 87254; 87340; 87804; 93005; 93010; 94002; 94640; 99285-25; G0378; G0480; J0885; J1644